=== PATIENT | male | born 1960 | race Caucasian/White ===

== ENCOUNTER → 2018-12-31 | Outpatient (REF) | payer MEDICARE ==
[~2018-12-31] MED LIST: ACET-683 PO; AMLO10TA5 PO; ARIP1TAB PO; ARIP1TAB6 PO; ASPI81TA85 PO; ATOR80TA59 PO; CARV25TA PO; CLOP75TA2 PO; COLC1TAB13 PO; CYAN500T3 PO; D-101000 PO; DULO1CAP4 PO; FLOM0.4C39 PO; FOLI1TAB11 PO; GABA600T4 PO; HYDR-3911 PO; HYDR10TAB PO; LISI40TA PO; MELA3TAB41 PO; METF-877 PO; NEUR600T PO; NITR0.4S14 SL; REME15TA PO; TRAZ1TAB10 PO; WARF-18 PO; WARF-23 PO
[2018-12-31 17:02] LABS: ALBUMIN 3.8 GM/DL (3.2-5.2); ALT/SGPT 44 U/L (12-78); BLOOD UREA NITROGEN 22 MG/DL (7-18); CALCIUM LEVEL 9.2 MG/DL (8.5-10.1); CARBON DIOXIDE LEVEL 25 MEQ/L (21-32); CHLORIDE LEVEL 103 MEQ/L (98-107); CREATININE FOR GFR 1.07 MG/DL (0.70-1.30); GLOMERULAR FILTRATION RATE > 60.0 (>56); GLUCOSE, FASTING 183 MG/DL (70-100); POTASSIUM SERUM 4.1 MEQ/L (3.5-5.1); SODIUM LEVEL 137 MEQ/L (136-145); TOTAL PROTEIN 7.1 GM/DL (6.4-8.2)
[2018-12-31 17:10] LABS: BASO # 0.1 10^3/uL (0.0-0.2); BASO % 0.5 % (0.0-1.0); EOS # 0.3 10^3/uL (0.0-0.50); EOS % 1.6 % (0.0-3.0); HEMATOCRIT 45.4 % (42.0-52.0); HEMOGLOBIN 15.5 g/dl (13.5-17.5); LYMPH # 3.4 10^3/uL (1.5-4.5); LYMPH % 19.3 % (24.0-44.0); MEAN CORPUSCULAR HEMOGLOBIN 29.4 pg (27.0-33.0); MEAN CORPUSCULAR HGB CONC 34.1 g/dl (32.0-36.5); MONO # 0.6 10^3/uL (0.0-0.8); MONO % 3.6 % (0.0-5.0); NEUTROPHILS # 12.4 10^3/uL (1.8-7.7); NEUTROPHILS % 71.2 % (36.0-66.0); PLATELET COUNT, AUTOMATED 335 10^3/uL (150-450); RED BLOOD COUNT 5.28 10^6/uL (4.30-6.10); WHITE BLOOD COUNT 17.4 10^3/uL (4.0-10.0)
[2019-01-03 00:06] LABS: Lyme Disease IgG/IgM Antibodie <0.91 ISR (0.00-0.90); Lyme Disease IgM Ab Quantitati <0.80 index (0.00-0.79)
== END ==
LOC: M SFHCLERA 11:05
PROVIDERS: ATTEND Physician Assistant
DX: R21 Rash and other nonspecific skin eruption (principal)
CPT/HCPCS: 80053; 85025; 86617; G0463

== ENCOUNTER 2019-01-09 20:24 | Observation (INO) | payer OTHER, MEDICARE ==
[~2019-01-09] VITALS: Ht 182.9 cm; Wt 132.4 kg
[2019-01-09] MEDS ORDERED: ONDANSETRON 4MG/2ML VIAL (J2405) IV ONE (21:00)
[2019-01-09 21:02] LABS: BASO # 0.1 10^3/uL (0.0-0.2); BASO % 0.3 % (0.0-1.0); EOS # 0.1 10^3/uL (0.0-0.50); EOS % 0.5 % (0.0-3.0); HEMATOCRIT 44.6 % (42.0-52.0); HEMOGLOBIN 15.2 g/dl (13.5-17.5); LYMPH # 3.3 10^3/uL (1.5-4.5); LYMPH % 22.4 % (24.0-44.0); MEAN CORPUSCULAR HGB CONC 34.1 g/dl (32.0-36.5); MONO # 0.8 10^3/uL (0.0-0.8); MONO % 5.7 % (0.0-5.0); NEUTROPHILS # 10.2 10^3/uL (1.8-7.7); NEUTROPHILS % 69.4 % (36.0-66.0); PLATELET COUNT, AUTOMATED 269 10^3/uL (150-450); RED BLOOD COUNT 5.07 10^6/uL (4.30-6.10); WHITE BLOOD COUNT 14.7 10^3/uL (4.0-10.0)
[2019-01-09] MEDS: MORPHINE 4 MG/ML 1ML VIAL/SYRINGE (J2270) IV PRN ×2 (21:07→22:16)
[2019-01-09 21:18] LABS: INR 1.97; PROTHROMBIN TIME 22.2 SECONDS (11.8-14.0)
[2019-01-09 21:22] LABS: BLOOD UREA NITROGEN 22 MG/DL (7-18); CALCIUM LEVEL 9.3 MG/DL (8.5-10.1); CARBON DIOXIDE LEVEL 27 MEQ/L (21-32); CHLORIDE LEVEL 103 MEQ/L (98-107); CK-MB VALUE MASS 1.2 NG/ML (<3.6); CPK CREATINE PHOSPHOKINASE 43 U/L (39-308); CREATININE FOR GFR 1.71 MG/DL (0.70-1.30); GLOMERULAR FILTRATION RATE 44.1 (>56); GLUCOSE, FASTING 335 MG/DL (70-100); MB/CK RELATIVE INDEX 2.79 (< OR =4); POTASSIUM SERUM 4.3 MEQ/L (3.5-5.1); SODIUM LEVEL 138 MEQ/L (136-145); TROPONIN I < 0.02 NG/ML (< 0.10)
[2019-01-09] MEDS ORDERED: CARV25TA PO (21:45)
[2019-01-09] MEDS ORDERED: REME15TA PO (21:45)
[2019-01-09] MEDS ORDERED: DULO1CAP4 PO (21:45)
[2019-01-09] MEDS ORDERED: HYDR10TAB PO (21:45)
[2019-01-09] MEDS ORDERED: NITR0.4S14 SL (21:45)
[2019-01-09] MEDS ORDERED: TRAZ1TAB10 PO (21:45)
[2019-01-09] MEDS ORDERED: METF-877 PO (21:45)
[2019-01-09] MEDS ORDERED: FLOM0.4C39 PO (21:45)
[2019-01-09] MEDS ORDERED: NEUR600T PO (21:45)
[2019-01-09] MEDS ORDERED: MELA3TAB41 PO (21:45)
[2019-01-09] MEDS ORDERED: WARF-18 PO (21:45)
[2019-01-09] MEDS ORDERED: LISI40TA PO (21:45)
[2019-01-09] MEDS ORDERED: ATOR80TA59 PO (21:45)
[2019-01-09] MEDS ORDERED: D-101000 PO (21:45)
[2019-01-09] MEDS ORDERED: FOLI1TAB11 PO (21:45)
[2019-01-09] MEDS ORDERED: CYAN500T3 PO (21:45)
[2019-01-09] MEDS ORDERED: ASPI81TA85 PO (21:45)
[2019-01-09] MEDS ORDERED: WARF-23 PO (21:45)
[2019-01-09] MEDS ORDERED: ARIP1TAB6 PO (21:45)
[2019-01-09] MEDS ORDERED: GI COCKTAIL 50ML BTL(HYOSCYAMINE/MAALOX/LIDOCAINE VISCOUS)(1:3:1) As Ordered ONE (22:28)
[2019-01-09] MEDS ORDERED: GI COCKTAIL 50ML BTL(HYOSCYAMINE/MAALOX/LIDOCAINE VISCOUS)(1:3:1) PO ONE (22:30)
[2019-01-09] MEDS ORDERED: HYDROMORPHONE HCL 0.5 MG/ 0.5 ML SYRINGE (J1170 PER 1) IV PRN (23:00)
--- NOTE | 2019-01-09 23:10 | REPVR ---
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 Coronal and sagittal reformatted images were created and reviewed. 3D rendering: MIP reconstructed images were created and reviewed. Radiation optimization: All CT scans at this facility use at least one of these dose optimization techniques: automated exposure control; mA and/or kV adjustment per patient size (includes targeted exams where dose is matched to clinical indication); or iterative reconstruction. COMPARISON: CR PORTABLE CHEST X-RAY 01/09/2019 8:32 PM FINDINGS: Evaluation of solid organs, vessels, mediastinum and edi is limited secondary to lack of IV contrast administration. Dual-lead left-sided implantable cardiac device is noted. Lungs: No consolidation. No masses. Pleural space: No sizable pneumothorax or pleural effusion. Heart: No cardiomegaly. No pericardial effusion. Aorta: No thoracic aortic aneurysm. Lymph nodes: No enlarged lymph nodes. Small left hilar node calcifications are likely from a prior granulomatous process. Bones/joints: No grossly displaced fractures or dislocations. Cervical spine fixation hardware partially imaged. Soft tissues: Unremarkable. IMPRESSION: No acute findings on this noncontrast study. Electronically signed by: Mani Ledesma On 01/09/2019 23:09:15 PM
[2019-01-09] MEDS: NITROGLYCERIN 0.4 MG SUBL TABLET SL PRN ×3 (23:25→23:37)
[2019-01-10] MEDS ORDERED: KETOROLAC 30 MG/ML VIAL (J1885) IV ONE
[2019-01-10 00:51] LABS: CK-MB VALUE MASS 1.3 NG/ML (<3.6); CPK CREATINE PHOSPHOKINASE 45 U/L (39-308); MB/CK RELATIVE INDEX 2.89 (< OR =4); TROPONIN I < 0.02 NG/ML (< 0.10)
[2019-01-10 01:45] LABS: C REACTIVE PROTEIN QUANTITATIV < 0.30 MG/DL (0.00-0.30)
[2019-01-10] MEDS ORDERED: COLCHICINE 0.6 MG TAB PO ONE (02:15)
[2019-01-10] MEDS ORDERED: methylPREDNISolone INJ 125 MG/2 ML VIAL (J2930) IV ONE (02:15)
[2019-01-10 02:24] LABS: ERYTHROCYTE SEDIMENTATION RATE 3 mm/hr (0-20)
--- NOTE | 2019-01-10 02:43 | HPEPDOC ---
[facility] Medical History & Physical Date of Admission Jan 10, 2019 Date of Service: Jan 10, 2019 Primary Care Physician: CHEYENNE OMALLEY MD Attending Physician: KELLY SUTHERLAND MD History and Physical Time of service 2:50 AM CHIEF COMPLAINT: Chest pain HISTORY OF PRESENT ILLNESS: Mr. Ibarra is a 58-year-old male who presents with complaints of 9 out of 10 in severity chest pain that began at 2:30 this morning that did not improve despite taking nitroglycerin. The pain radiated to his left arm and jaw. He has never had this kind of pain before and cannot identify any aggravating or alleviating factors. The pain improved to 8 out of 10 after taking toradol. He denies having fevers, denies having chills, denies having leg swelling, denies having shortness of breath at rest or with exertion. Per Dr. Villela the echo showed a mild pericardial effusion; while the pt was in the ED these findings were discussed with who recommended Solu-Medrol and colchicine. The patient has a history of PE. Today his INR is subtherapeutic and the creatinine was 1.7, therefore a CTA could be done to rule out recurrent PE. REVIEW OF SYSTEMS: Point review systems negative except as listed in HPI PAST MEDICAL/ SURGICAL HISTORY: 1. History of lower extremity DVT, and PE status post IVC filter placement & current Coumadin use 2. Chronic CAD status post stent placement in 2014 3. Non-insulin dependent diabetes mellitus. 4. Chronic hypertension. 5. History of CVA with residual memory impairment. 6. Pacemaker (The patient stated this was placed because his "heart was thick"). 7. Status post cervical spine and back surgery. 8. Multiple knee surgeries SOCIAL HISTORY: The Uses tobacco FAMILY HISTORY: CAD ALLERGIES: Please see below. HOME MEDICATIONS: Please see below. PHYSICAL EXAMINATION: VITAL SIGNS: See below GENERAL APPEARANCE: Well-nourished, well-developed, not in apparent distress HEENT: Normocephalic, atraumatic, mucous members moist and pink, lips acyanotic CARDIOVASCULAR: Regular rate and rhythm, no murmurs, rubs or gallops, radial pulses are intact, there is no lower extremity edema LUNGS: Clear to auscultation bilaterally on room air ABDOMEN: Soft and nontender on palpation MUSCULOSKELETAL: Range of motion intact in all 4 extremities INTEGUMENT: Slightly diaphoretic NEUROLOGICAL: Cranial nerves II-12 are grossly intact. Speech is not dysarthric PSYCHIATRIC: Alert and oriented to person, place and time, able to answer all questions appropriately and follow commands LABORATORY DATA: See below. IMAGING: CT of the chest was unremarkable MICROBIOLOGY: Please see below. ASSESSMENT: Mr. Ibarra is a 58-year-old male with a past medical history of chronic hypertension, chronic CAD, history of CVA, history of lower extremity DVT and PE, and pacemaker placement for unclear reasons. Will be admitted for management of chest pain, possibly secondary to pericarditis. PLAN: 1. Chest pain Possibly due to pericarditis WBC count is elevated, but ESR and CRP are within normal limits Per Dr. Villela the echo showed a small pericardial effusion Plan: PCU / Telemetry /follow-up serial troponins and EKGs, DAVID, RF / follow-up with director distribution, Dr. Santos tomorrow/ continue Solu-Medrol and colchicine / f/u on Echo report 2. ANTONIO Likely due to combination of metformin, lisinopril and mild dehydration due to the warm weather Baseline creatinine is 1.07, today it is 1.71. Plan: f/u UA f/u ulytes for FENa or FEUrea, renal US, IVF / avoid nephrotoxins 3. Hx of PE Plan: Increase dose of warfarin from 2.5 mg 4 x a week + 5 mg 3 x a week to... 3 mg 4 x a week + 5 mg 3 x a week / if the chest pain has not improved the day time team may consider ordering a VQ scan 4. Chronic hypertension. Plan resume hydralazine / hold lisinopril 5. Chronic CAD Plan: resume home meds/ f/u lipid panel 6. Diabetes Plan: f/u accuchecks & A1C / hypoglycemia protocol / sliding scale insulin / hold metformin. 7. Tobacco abuse. Plan tobacco cessation education/nicotine patch 8. Obesity BMI 38.3 w DM = qualifies for bariatric surgery Plan: can f/u w PCP for steam distribution supervisor consult, referal for sleep study & referral for Bariatric surgery / recommend cardiovascular exercise for 40 min 4-5 days a week DVT prophylaxis with warfarin Disposition pending clinical course Vital Signs Vital Signs Date Time Temp Pulse Resp B/P (MAP) Pulse Ox O2 Delivery O2 Flow Rate FiO2 01/10/19 01:52 69 20 95 Room Air 01/10/19 01:45 165/78 (107) 01/09/19 20:37 96.4 Laboratory Data CBC/BMP Laboratory Tests 01/09/19 20:45 Red Blood Count 5.07, Mean Corpuscular Volume 88.0, Mean Corpuscular Hemoglobin 30.0, Mean Corpuscular Hemoglobin Concent 34.1, Red Cell Distribution Width 12.5, Neutrophils (%) (Auto) 69.4 H, Lymphocytes (%) (Auto) 22.4 L, Monocytes (%) (Auto) 5.7 H, Eosinophils (%) (Auto) 0.5, Basophils (%) (Auto) 0.3, Neutrophils # (Auto) 10.2 H, Lymphocytes # (Auto) 3.3, Monocytes # (Auto) 0.8, Eosinophils # (Auto) 0.1, Basophils # (Auto) 0.1, Calcium Level 9.3, Total Creatine Kinase 43 Home Medications Scheduled Aripiprazole (Aripiprazole) 10 Mg Tablet, 5 MG PO DAILY Aspirin (Aspir 81) 81 Mg Tablet.dr, 81 MG PO DAILY Atorvastatin Calcium (Atorvastatin Calcium) 80 Mg Tablet, 40 MG PO DAILY Carvedilol (Carvedilol) 25 Mg Tablet, 25 MG PO DAILY Cholecalciferol (Vitamin D3) (Vitamin D3) 1,000 Unit Capsule, 1,000 UNITS PO DAILY Cyanocobalamin (Vitamin B-12) (Vitamin B-12) 500 Mcg Tablet, 500 MCG PO DAILY Duloxetine Hcl (Duloxetine HCl) 20 Mg Capsule.dr, 40 MG PO DAILY Folic Acid (Folic Acid) 1 Mg Tablet, 1 MG PO DAILY Gabapentin (Neurontin) 600 Mg Tablet, 1,200 MG PO QAM Gabapentin (Gabapentin) 600 Mg Tablet, 600 MG PO QPM Hydralazine HCl (Hydralazine HCl) 10 Mg Tablet, 20 MG PO QAM Hydralazine HCl (Hydralazine HCl) 10 Mg Tablet, 10 MG PO QPM Lisinopril (Lisinopril) 40 Mg Tablet, 40 MG PO DAILY USUALLY MORNING, BUT SOMETIMES TAKES IN EVENING Metformin HCl (Metformin HCl) 1,000 Mg Tablet, 1,000 MG PO BID Mirtazapine (Remeron) 15 Mg Tablet, 7.5 MG PO QHS Tamsulosin HCl (Flomax) 0.4 Mg Capsule, 0.4 MG PO DAILY Warfarin Sodium (Warfarin Sodium) 5 Mg Tablet, 5 MG PO 3XW FRIDAY, FRIDAY, FRIDAY Warfarin Sodium (Warfarin Sodium) 5 Mg Tablet, 2.5 MG PO 4XWK FRIDAY, FRIDAY, FRIDAY, FRIDAY Scheduled PRN Melatonin (Melatonin) 3 Mg Tablet, 6 MG PO QHS PRN for SLEEP Nitroglycerin (Nitroglycerin) 0.4 Mg Tab.subl, 0.4 MG SL Q5MP PRN for CHEST PAIN 1st sign of attack; may repeat every 5 mins; if pain persists after 3 in 15 min, medical attention is recommended Trazodone HCl (Trazodone HCl) 50 Mg Tablet, 100 MG PO QHS PRN for SLEEP MAY TAKE UP TO 150 MG FOR DIFFICULTY SLEEPING Allergies Coded Allergies: nifedipine (Verified Allergy, Mild, angina, 01/09/19) prochlorperazine (Verified Allergy, Mild, vomiting, 01/09/19) cyclobenzaprine (Verified Adverse Reaction, Mild, anxiety, 01/09/19) A-FIB/CHADSVASC A-FIB History Current/History of A-Fib/PAF?: No Current PO Anticoag Therapy: No KELLY SUTHERLAND MD Jan 10, 2019 02:43
[2019-01-10] MEDS ORDERED: DEXTROSE 50% 50 ML SYRINGE IV PRN (02:45)
[2019-01-10] MEDS ORDERED: GABA600T4 PO (02:54)
[2019-01-10] MEDS ORDERED: WARF-23 PO (02:54)
[2019-01-10] MEDS ORDERED: HYDR10TAB PO (02:54)
[2019-01-10] MEDS ORDERED: ARIP1TAB PO (02:54)
[2019-01-10] MEDS: NS 1,000 ML IV SCH ×2 (03:21→20:51)
[2019-01-10] MEDS ORDERED: traZODone 50 MG TAB PO PRN (03:30)
[2019-01-10] MEDS ORDERED: PILL CUTTER 1 EACH XX ONE (03:43)
[2019-01-10] MEDS: WARFARIN SOD 5 MG TAB PO SCH (03:44)
[2019-01-10] MEDS: MIRTAZAPINE 15 MG TAB PO SCH ×2 (03:45→20:51)
[2019-01-10] MEDS ORDERED: PILL CUTTER 1 EACH XX PRN (04:00)
--- NOTE | 2019-01-10 06:32 | ECGEPIP ---
[facility] - ED Test Date: 2019-01-09 Pat Name: CHAPO VALDIVIA Department: Room: - Gender: Male Balancer Scale: : 1960 Requested By: KARSTEN Swain Order Number: [id number] Reading MD: Damaris Arreguin Measurements Intervals [place] Rate: 120 P: 41 WA: 152 QRS: -6 QRSD: 97 T: 114 QT: 289 QTc: 409 Interpretive Statements SINUS TACHYCARDIA INFERIOR MYOCARDIAL INFARCTION, OF INDETERMINATE AGE Anterior infarct age indeterminate MODERATE T-WAVE ABNORMALITY, CONSIDER LATERAL ISCHEMIA NO PRIOR ECG FOR COMPARISON CLINICAL CORRELATION ADVISED Electronically Signed on 01-10-2019 6:32:11 EDT by Damaris Arreguin
[2019-01-10 07:45] LABS: CHOLESTEROL LEVEL 132 MG/DL (<200); CHOLESTEROL RISK RATIO 2.933 (<5); HDL CHOLESTEROL 45 MG/DL (>40); HEMOGLOBIN A1c 8.3 %; LDL CHOLESTEROL 62 MG/DL (<100); NON-HDL-C 87 MG/DL; RHEUMATOID FACTOR QUANT < 10.0 IU/ML (<15.0); TRIGLYCERIDES LEVEL 124 MG/DL (<150); TROPONIN I < 0.02 NG/ML (< 0.10)
[2019-01-10 08:01] LABS: BASO # 0.1 10^3/uL (0.0-0.2); BASO % 0.5 % (0.0-1.0); EOS % 0.4 % (0.0-3.0); HEMATOCRIT 43.1 % (42.0-52.0); LYMPH # 1.6 10^3/uL (1.5-4.5); LYMPH % 15.7 % (24.0-44.0); MEAN CORPUSCULAR HEMOGLOBIN 30.6 pg (27.0-33.0); MEAN CORPUSCULAR HGB CONC 34.8 g/dl (32.0-36.5); MONO # 0.2 10^3/uL (0.0-0.8); MONO % 1.9 % (0.0-5.0); NEUTROPHILS # 8.2 10^3/uL (1.8-7.7); NEUTROPHILS % 79.8 % (36.0-66.0); PLATELET COUNT, AUTOMATED 196 10^3/uL (150-450); WHITE BLOOD COUNT 10.3 10^3/uL (4.0-10.0)
[2019-01-10 08:04] LABS: BLOOD UREA NITROGEN 27 MG/DL (7-18); CALCIUM LEVEL 9.2 MG/DL (8.5-10.1); CARBON DIOXIDE LEVEL 24 MEQ/L (21-32); CHLORIDE LEVEL 105 MEQ/L (98-107); CREATININE FOR GFR 1.23 MG/DL (0.70-1.30); GLOMERULAR FILTRATION RATE > 60.0 (>56); GLUCOSE, FASTING 266 MG/DL (70-100); POTASSIUM SERUM 4.7 MEQ/L (3.5-5.1); SODIUM LEVEL 137 MEQ/L (136-145)
[2019-01-10] MEDS: HumaLOG INSULIN (NovoLOG) PER UNIT SC SCH ×4 (08:07→20:49)
--- NOTE | 2019-01-10 08:45 | REPVR ---
EXAM: US Retroperitoneal Limited, Kidneys EXAM DATE/TIME: 01/10/2019 3:21 AM CLINICAL HISTORY: 58 years old, male; Abnormal findings; Abnormal lab test; Abnormal kidney function lab tests; Additional info: Noel TECHNIQUE: Imaging protocol: Real-time ultrasound of the retroperitoneum with image documentation. Examination was focused on the kidneys. COMPARISON: No relevant prior studies available. FINDINGS: Right kidney: The right kidney measures 11.7 x 5.8 x 5.8 cm. The right renal cortical parenchymal echogenicity is within normal limits. There is no right renal mass, stone, cyst or hydronephrosis. There is overall increased renal sinus fat. Left kidney: The left kidney measures 12.5 x 4.7 x 6.9 cm. The left renal cortical parenchymal echogenicity is within normal limits. There is no left renal mass, stone, cyst or hydronephrosis. There is overall increased renal sinus fat. Bladder: Right and left ureteral jets are seen. IMPRESSION: Normal ultrasound of the kidneys. Electronically signed by: Abdi Parikh On 01/10/2019 08:44:52 AM
[2019-01-10] MEDS ORDERED: LEVEMIR (INSULIN DETEMIR) 1 UNITS/0.01ML SC SCH (09:00)
[2019-01-10] MEDS ORDERED: CARVedilol 12.5 MG TAB PO SCH (09:00)
[2019-01-10] MEDS ORDERED: ASPIRIN 81 MG ENTERIC TAB PO SCH (09:00)
[2019-01-10] MEDS ORDERED: **hydrALAZINE** 10 MG TAB PO SCH ×2 (09:00→18:00)
--- NOTE | 2019-01-10 09:15 | ECHO ---
DATE OF PROCEDURE: 01/10/2019 DATE OF : 1960 AGE: 58 REFERRING PROVIDER: Dr. Mehul Villela REASON FOR STUDY: Heart murmur. 2-D MEASUREMENTS: IVS: 1.6 cm LV: 4.2 cm LVPW: 1.7 cm LA: 3.6 cm Aorta: 3.2 cm IVC: 1.3 cm DOPPLER MEASUREMENTS: Peak velocity across the aortic valve: 2.3 m/s Peak velocity across the LVOT: 1.9 m/s Peak gradient across the aortic valve: 20 mmHg Mean gradient across the aortic valve: 11 mmHg Mitral E: 0.69 Mitral A: 1.1 Ratio: 0.6 2-D COMMENTS: 1. Moderately increased left ventricular wall thickness with normal left ventricular size and normal global left ventricular systolic function. The estimated ventricular systolic ejection fraction is 65-70%. 2. Subjectively, the left atrium appeared to be mildly enlarged in limited views. Normal right atrium and right ventricle. 3. The atrial septum appeared to be normal without evidence of defect or shunt. 4. Normal aortic root. 5. Trace to small pericardial effusion was noted, no evidence of cardiac tamponade. 6. Mildly calcified aortic valve with minimal leaflet excursion. Mildly calcified mitral annulus with normal anterior mitral valve leaflet motion. Normal tricuspid valve and pulmonic valve. The proximal pulmonary artery branches were not well visualized. 7. The inferior vena cava was normal in size, central venous pressure is most likely normal. DOPPLER: Detects trace mitral regurgitation. Abnormal relaxation pattern was noted across the mitral valve leaflets as well as the mitral valve annulus consistent with features of grade 1 left ventricular diastolic dysfunction. IMPRESSION: 1. Normal global left ventricular systolic function with moderate concentric left ventricular hypertrophy. There are some features of grade 1 left ventricular diastolic dysfunction manifested by abnormal relaxation. 2. Aortic valve sclerosis with minimal aortic stenosis, but no aortic radiation. There was also a gradient of about 20 mmHg noted across the LVOT that may be related to some underlying obstructive cardiomyopathy. 3. Mitral annulus calcification with trace mitral regurgitation. Subjectively, the left atrium appeared to be mildly enlarged in limited views. 4. Trace to small pericardial effusion, no evidence of cardiac tamponade. Not mentioned above, pacemaker wire artifact noted in the right heart chambers. MTDD
[2019-01-10] MEDS: GABAPENTIN 300 MG CAP PO SCH ×2 (09:56→18:18)
[2019-01-10] MEDS: COLCHICINE 0.6 MG TAB PO SCH ×2 (09:56→20:50)
[2019-01-10] MEDS: DULoxetine 20 MG CAP (CYMBALTA) PO SCH (09:57)
[2019-01-10] MEDS: TAMSULOSIN 0.4 MG CAP PO SCH (09:57)
[2019-01-10] MEDS: FOLIC ACID 1 MG TAB PO SCH (09:58)
[2019-01-10] MEDS: ARIPiprazole 10 MG TAB PO SCH (09:58)
[2019-01-10] MEDS: ATORVASTATIN 20 MG TAB PO SCH (09:58)
[2019-01-10] MEDS: NICOTINE 14 MG/24 HR TRANSDERMAL TD SCH (10:00)
[2019-01-10] MEDS: amLODIPine 10 MG TAB PO SCH (10:25)
[2019-01-10] MEDS: **hydrALAZINE HCL** 25 MG TAB PO SCH ×3 (10:29→20:50)
--- NOTE | 2019-01-10 11:33 | REP ---
AP PORTABLE CHEST: 01/09/2019. Clinical history: Chest pain. Findings: There are no prior studies. Dual lead AICD pacer with very entered over the left mid lower chest and leads in the right atrium and right ventricle. Lungs somewhat hypoinflated. This magnifies heart size. There is no vascular redistribution, edema, infiltrate or effusion. The aorta is without acute finding. Airway intact. No widening the mediastinum. Minor degenerative changes the left shoulder and spine. Impression: 1. Dual lead AICD pacer of the left chest. No acute cardiopulmonary change. Electronically Signed by Justo Torres MD 01/10/2019 08:28 P
[2019-01-10] MEDS ORDERED: IBUPROFEN 800 MG TAB PO ONE (16:00)
[2019-01-10] MEDS: CLOPIDOGREL 75 MG TAB PO SCH (16:57)
[2019-01-10] MEDS ORDERED: WARFARIN SOD 3 MG TAB PO SCH (17:00)
[2019-01-10 17:59] LABS: NT-PRO BNP 110 PG/ML (<125); TROPONIN I < 0.02 NG/ML (< 0.10)
[2019-01-10] MEDS: CARVedilol 12.5 MG TAB PO SCH (20:51)
[2019-01-11] MEDS ORDERED: methylPREDNISolone INJ 125 MG/2 ML VIAL (J2930) IV SCH (03:00)
[2019-01-11 07:13] LABS: BASO % 0.2 % (0.0-1.0); EOS % 0.1 % (0.0-3.0); HEMATOCRIT 43.7 % (42.0-52.0); HEMOGLOBIN 15.2 g/dl (13.5-17.5); LYMPH # 1.9 10^3/uL (1.5-4.5); LYMPH % 11.2 % (24.0-44.0); MEAN CORPUSCULAR HEMOGLOBIN 30.4 pg (27.0-33.0); MEAN CORPUSCULAR HGB CONC 34.8 g/dl (32.0-36.5); MEAN CORPUSCULAR VOLUME 87.4 fl (80.0-96.0); MONO # 0.4 10^3/uL (0.0-0.8); MONO % 2.1 % (0.0-5.0); NEUTROPHILS # 14.7 10^3/uL (1.8-7.7); NEUTROPHILS % 84.7 % (36.0-66.0); PLATELET COUNT, AUTOMATED 205 10^3/uL (150-450); WHITE BLOOD COUNT 17.3 10^3/uL (4.0-10.0)
[2019-01-11 07:34] LABS: INR 2.26; PROTHROMBIN TIME 24.8 SECONDS (11.8-14.0)
[2019-01-11 07:47] LABS: BLOOD UREA NITROGEN 26 MG/DL (7-18); CALCIUM LEVEL 9.4 MG/DL (8.5-10.1); CARBON DIOXIDE LEVEL 25 MEQ/L (21-32); CHLORIDE LEVEL 104 MEQ/L (98-107); CREATININE FOR GFR 1.18 MG/DL (0.70-1.30); GLOMERULAR FILTRATION RATE > 60.0 (>56); GLUCOSE, FASTING 280 MG/DL (70-100); MAGNESIUM LEVEL 2.3 MG/DL (1.8-2.4); POTASSIUM SERUM 4.2 MEQ/L (3.5-5.1); SODIUM LEVEL 136 MEQ/L (136-145); TROPONIN I < 0.02 NG/ML (< 0.10)
--- NOTE | 2019-01-11 08:06 | CR ---
DATE OF CONSULTATION: 01/10/2019 PHYSICIAN PROVIDER: Dr. Abby Powell REASON FOR CONSULTATION: Chest pain, possible pericarditis. HISTORY OF PRESENT ILLNESS: 58-year-old male with a history of coronary artery disease, syncope, hypertension, hyperlipidemia, diabetes mellitus, AND smoking, as well as deep venous thrombosis (DVT) and pulmonary embolism and possible paroxysmal atrial fibrillation that could not be confirmed started having chest pain for about five days and went to an urgent care, was treated and then sent home. Yesterday in the morning he developed more severe chest pain on a scale of 0 to 10 it was a 9. He decided to come to the emergency room for further evaluation. Serum troponin on arrival was negative. He had an echocardiogram that revealed normal global left ventricular ejection fraction (LVEF), trace to small pericardial effusion and because his serum troponin was negative in the setting of severe chest pain, it was felt to be related to pericarditis. A chest CT with contrast could not be done because his serum creatinine was elevated upon arrival at the emergency room (ER). He was started on Solu-Medrol and colchicine. Cardiology consult was called. When I saw Mr. Jagjit Ibarra in the ER he was in supine in bed in no acute distress at rest. He stated that the chest pain had improved onto a 7 but has been about to an 8. There is no associated shortness of breath, or pleuritic component of his chest pain and he thinks it radiates to the left upper extremity. It does not change with position. He has a friend in the room with him and the friend states that when he was working, he was having shortness of breath with activities. He denies any palpitations and there is no pedal edema or orthopnea. There is no recent syncopal episode. He denies any bleeding. He has a long, extensive history with DVT years ago involving the left lower extremity he thinks, as well as pulmonary embolism in 2018. In the past, he was on Eliquis but lately has been on Coumadin. In 2014, he was in [place] a while visiting his daughter and was passing out, he was seen in the hospital and an automatic implantable cardio converter-defibrillator (AICD) was implanted but he is not sure about the reason it was done. He also has a history of cerebral vascular accident (CVA) and left-sided weakness. In the month of September of 2014, he was having chest pain at [facility] and was transferred to [facility] in [place] and ended up having a percutaneous transluminal coronary angioplasty (PTCA) with drug-eluting stents to the proximal to mid-left anterior descending (LAD). He was discharged home on aspirin as well as Plavix. He has been doing well until about 4-5 days ago when he starting again having chest pain. He thinks this chest pain is similar to the chest pain he had in the month of September in 2018 when he was transferred to [facility]. He also has history of impaired memory from prior concussions. 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 He has degenerative joint disease and had surgery done in his knees as well as his spine. He denies any prior history of significant valvular heart disease, kidney disease he is aware of. He does have a history of anxiety/depression. In the past, he was on an KARLI inhibitor. He admitted that he is a very poor historian because he cannot remember exactly when things happen due to prior concussions. The last time he had a check of the AICD, according to the discharge summary from [facility] was during that hospitalization and since then he has not done that. He has not also been seeing any mining engineering technologist and [facility] Upon discharge from [facility], he has manifested the desire to see the [facility] for [facility] primary and his mining engineering technologist. or his primary and his mining engineering technologist. CURRENT MEDICATIONS: - Methylprednisolone 125 mg IV daily - Humalog insulin - gabapentin 600 mg by mouth daily at 06:00 p.m - Coumadin as directed - Abilify 5 mg by mouth daily - aspirin 81 mg by mouth daily - atorvastatin 40 mg by mouth daily - carvedilol 25 mg by mouth daily - duloxetine 40 mg by mouth daily - folic acid 1 mg by mouth daily - gabapentin 1200 mg by mouth in the morning - tamsulosin 0.4 mg by mouth daily - colchicine 0.6 mg by mouth twice a day - nicotine patch - amlodipine 10 mg by mouth daily - hydralazine 25 mg by mouth three times a day - Levemir insulin 20 units subcutaneous daily - trazodone 100 mg before meals taken as needed - D50 as needed for hypoglycemia - normal saline at 60 mL an hour - nitroglycerin sublingual as needed for chest pain - hydromorphone 0.5 mg every 30 minutes and as needed for moderate pain - Mirtazapine 7.5 mg by mouth at hour of sleep FAMILY HISTORY: Positive for diabetes mellitus, grandparents on his father's side. He is also positive for coronary artery disease/heart disease both father and a brother. SOCIAL HISTORY: The patient lives in town with friends. He is a smoker. ALLERGIES: There is report of allergies to CYCLOBENZAPRINE, NIFEDIPINE, and PROCHLORPERAZINE. PHYSICAL EXAMINATION: GENERAL: The patient is alert and oriented, in no acute distress at rest. MOST RECENT VITAL SIGNS: Blood pressure of 141/73 with a pulse of 95, respiration 18-20 and his oxygen saturation is 93-96% on room air. His temperature last evening was 96.4 degrees Fahrenheit. HEAD: Atraumatic. Fundus examination was not done. NECK: Neck is supple and no jugular venous distention (JVD) appreciated. LUNGS: Clear bilaterally without any wheezing or crackles. HEART: Examination revealed normal S1, S2 without gallops, but mildly tachycardiac. The point of maximal impulse (PMI) is not displaced. There is no rub. There is a systolic murmur grade 2/6 over the precordium laterally at the base of the base of the /aortic valve area. ABDOMEN: Abdomen is soft and nontender, bowel sounds are active. EXTREMITIES: Reveal no pedal edema. Peripheral pulses, tibialis were +2 and equal. NEUROLOGIC EXAMINATION: Negative for focal deficit. LABORATORY DATA: BMP done today revealed a sodium of 137, potassium 4.7, chloride 105, CO2 24, BUN 27, creatinine 1.23, GFR more than 60, fasting glucose 266 and calcium 9.2. Serum troponin has been less than 0.02. Lipid profile revealed a total cholesterol of 132, LDL cholesterol of 62, HDL 45 and triglycerides 124 with a total cholesterol/HDL ratio 2.96. BUN and creatinine yesterday on admission was 22 and 1.7 respectively. CBC done today revealed WBC of 10.3, hemoglobin 15.0, hematocrit 43.1 and platelet 196,000. On admission, a WBC was 14.7. PT yesterday was 22.2 with an INR of 1.97. Hemoglobin A1c was 8.3. CR-protein is less than 0.30. Echocardiogram yesterday revealed normal global left ventricular systolic function estimated at 65-70% and features of grade 1 left ventricular diastolic dysfunction, aortic valve sclerosis with minimal aortic stenosis. There is a gradient of 20 mmHg across the left ventricular outflow tract (LVOT). Trace mitral regurgitation was detected with a mildly enlarged left atrium, trace to small pericardial effusion but no evidence of cardiac tamponade. Pacemaker wire artifacts also noted in the right heart chambers. EKG revealed sinus tachycardia with intraventricular conduction delay (IVCD) and nonspecific ST-T abnormalities. Chest x-ray on 01/09/2019 revealed no acute disease process. Pacemaker/AICD wire artifacts noted. Chest CT without contrast on 01/09/2019 revealed no acute findings. Renal Ultrasound done today, 01/10/2019 revealed a normal study. IMPRESSION: 1. Chest pain in this 58-year-old male with history of coronary artery disease and recent percutaneous transluminal coronary angioplasty (PTCA)/a drug-eluting stents proximal to mid left anterior descending (LAD). Serum troponin is negative. He has been compliant with his medications. He had echocardiogram done yesterday that revealed normal left ventricular ejection fraction (LVEF) but new trace to small pericardial effusion was noted, not seen an echocardiogram done in the month of September 2018. For this reason, it was thought that his chest could be related to pericarditis but his serum C-reactive protein is normal, complicating the diagnosis. He was started on colchicine and Solu-Medrol. I doubt he is having an acute coronary syndrome. I am going to give him a trial of Motrin and he will be monitored. Also, doubt he is having a pulmonary embolism, he has been on Coumadin and his INR is 1.9. He also has been on aspirin. He will be admitted for further management. We shall try to continue monitoring his serum troponin. 2. Coronary artery disease and recent PTCA/drug-eluting stent to the proximal to mid-LAD in the month of September 2018. His medications were reviewed and he will continue the same. I have increased his beta-magdy. It seems that he has a gradient across the LVOT and if he continues to be tachycardic, I will start him on a calcium channel magdy at a small dose. He is on aspirin and it will be switched to Clopidogrel. He is on Warfarin. 3. Hypertension. He will be monitored, I have increased his carvedilol. He is also on hydralazine. He is also on amlodipine. 4. Hyperlipidemia, under control on atorvastatin. 5. History of diabetes mellitus and this is being addressed. 6. History of deep venous thrombosis (DVT) and pulmonary embolism. Questionable history of paroxysmal atrial fibrillation. On Coumadin and this is being addressed. 7. History of automatic implantable cardio converter-defibrillator (AICD)/pacemaker implant. At the time the patient has stated he was passing out and he was told that he has a big heart and was living in [place], [place]. 8. Abnormal BUN and creatinine, improving. 9. History of benign prostatic hypertrophy (BPH). 10. History of memory loss due to prior concussions. 11. History of arthritis with degenerative joint disease and disc disease. 12. History of anxiety/depression. Thank you for allowing to participate in the care of Mr. Jagjit Ibarra for his underlying cardiac condition. This is a very interesting case and I will continue to monitor him along with you. Please do not hesitate to call if any questions.
[2019-01-11] MEDS: HumaLOG INSULIN (NovoLOG) PER UNIT SC SCH ×4 (08:27→20:27)
[2019-01-11] MEDS: LEVEMIR (INSULIN DETEMIR) 1 UNITS/0.01ML SC SCH (08:27)
[2019-01-11] MEDS: **hydrALAZINE HCL** 25 MG TAB PO SCH ×3 (08:28→20:28)
[2019-01-11] MEDS: COLCHICINE 0.6 MG TAB PO SCH ×2 (08:28→20:28)
[2019-01-11] MEDS: DULoxetine 20 MG CAP (CYMBALTA) PO SCH (08:28)
[2019-01-11] MEDS: FOLIC ACID 1 MG TAB PO SCH (08:28)
[2019-01-11] MEDS: GABAPENTIN 300 MG CAP PO SCH ×2 (08:28→16:51)
[2019-01-11] MEDS: CLOPIDOGREL 75 MG TAB PO SCH (08:28)
[2019-01-11] MEDS: ATORVASTATIN 20 MG TAB PO SCH (08:29)
[2019-01-11] MEDS: TAMSULOSIN 0.4 MG CAP PO SCH (08:29)
[2019-01-11] MEDS: amLODIPine 10 MG TAB PO SCH (08:29)
[2019-01-11] MEDS: CARVedilol 12.5 MG TAB PO SCH ×2 (08:30→20:27)
[2019-01-11] MEDS: ARIPiprazole 10 MG TAB PO SCH (08:30)
[2019-01-11] MEDS: NICOTINE 14 MG/24 HR TRANSDERMAL TD SCH (08:34)
--- NOTE | 2019-01-11 09:01 | IPN ---
DATE: 01/11/2019 Mr. Ibarra tells me that he is still having chest discomfort. It is a little better than yesterday but he still rates it 7/10 intensity. It is localized to one small area just left from the sternum without any radiation. It is not aggravated by taking deep breath, coughing or sneezing or any different position, and there are no associated symptoms. Vital signs: Blood pressure 124/75, heart rate has been in 60s. He is afebrile. Saturation is 75% on room air. His weight has not been documented today but yesterday it was stated as 128 kg. He is alert, oriented and appropriate. Does not appear to be in any distress. There is a fine tremor of his hands that is not intentional. His jugular venous pulse (JVP) is not elevated. I do not appreciate carotid bruit. Heart reveals regular rhythm without gallop, rub or murmur. Lungs are clear with good air movement. Abdomen is soft. Extremities are free of edema. Neurologically, other than fine tremor, he is intact. LABORATORY: CBC reveals WBC count 17,000, hemoglobin 15, hematocrit 43, platelet count 205,000. Basic metabolic panel is normal but for glucose 280. His troponin this morning again is negative. INR is 2.3 ASSESSMENT AND PLAN: Mr. Ibarra is a 58-year-old man who recently moved to [facility] from [place]. He does have established coronary artery disease with history of intervention in September of 2018, in , in [place]. He also has a pacemaker implanted for history of recurrent syncopal events. He presented with steady pressure-like discomfort localized to small area left of sternum that he rated initially as 10/10 intensity. The evaluation so far has been unremarkable. He does have nonspecific repolarization abnormalities on initial ECG, and I am going to obtain a followup. He does have numerous troponins that have been all negative. An echocardiogram revealed trace amount of pericardial effusion. As far as the etiology of the pain is concerned, I am not quite sure what it is. I certainly do not think it is pericarditis as the history is not suggestive of pleuritic nature of his pain. He also does not have acute coronary syndrome as evidenced by multiple negative cardiac enzymes. I am going to request records from [facility] in [place] and I am going to obtain a followup electrocardiogram. I suggest to observe the patient one more day in the hospital. I do hope that his cardiac enzymes will remain negative and the ECG will not show any obvious evolution, at which point, I believe that he will be able to be discharged home hopefully tomorrow. He is principally patient of [place] but has not been able to see a fast food server, even though he apparently has been requesting one for long time. So, I told him that if he needs that we will be happy to see him in the office locally until he establishes with cardiology in [place]. Because I am not believing that he has pericarditis I am going to discontinue Solu-Medrol, which certainly does not help his diabetes.
[2019-01-11] MEDS: ACETAMINOPHEN 500 MG TAB PO PRN (10:27)
[2019-01-11] MEDS ORDERED: HumaLOG INSULIN (NovoLOG) PER UNIT SC ONE (11:45)
--- NOTE | 2019-01-11 13:23 | IPNPDOC ---
Subjective Date Seen The patient was seen on 01/11/19. Subjective Chief Complaint/HPI Still complains of chest pain in the left and right second and third costochondral junction areas. No fever or chills, no nausea or vomiting or d iarrhea, no acid reflux, no cough or phlegm Objective Physical Examination General Exam: Positive: Alert, Cooperative, No Acute Distress Eye Exam: Positive: PERRLA, Conjunctiva & lids normal, EOMI; Negative: Sclera icteric ENT Exam: Positive: Atraumatic, Mucous membr. moist/pink, Pharynx Normal Neck Exam: Positive: Supple; Negative: JVD, thyromegaly Chest Exam: Positive: Clear to auscultation, Normal air movement Heart Exam: Positive: Rate Normal, Regular Rhythm, Normal S1, Normal S2, Murmurs (systolic murmur); Negative: Rubs Telemetry: Positive: No significant arrhythmia Abdomen Exam: Positive: Normal bowel sounds, Soft; Negative: Tenderness, Hepatospenomegaly Extremity Exam: Positive: Normal pulses; Negative: Clubbing, Cyanosis, Edema Skin Exam: Positive: Nl turgor and temperature; Negative: Rash, Breakdown Assessment /Plan Assessment 58-year-old male with PMH of lower extremity DVT, and PE status post IVC filter placement & current Coumadin use, CAD status post stent placement in 2014, 201 9, Non-insulin dependent diabetes mellitus, Hypertension, 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 ACS was ruled out, PE was ruled out, Aortic dissection was ruled out. Echo showed new pericardial effusion since September 2018 small in size. He had an episode of hives which lasted 2 days about 2 weeks ago. It was felt that he had Pericarditis vs musculoskeletal pain. But in view of his extensive cardiac history it was decided to keep him under observation to fully evaluate his chest pain. Chest pain seems like noncardiac . Definity not having a ACS at present. possibly costochondritis however pericarditis cannot be ruled out absolutely so will continue colchicine but will dc steroids. tylenol prn for pain Coronary artery disease and recent PTCA/drug-eluting stent to the proximal to mid-LAD in the month of September 2018. on plavix and betablocker. Hypertension. controlled hydralazine, coreg, amlodipine Uncontrolled Diabetes type 2 A1c is 8.2 probably this high becaue of steroids. sugars above 500 today carb consistent diet Levemir and lispro FA ac and HS. Hyperlipidemia atorvastatin. History of deep venous thrombosis (DVT) and pulmonary embolism. on coumadin Questionable history of paroxysmal atrial fibrillation. On Coumadin History of automatic implantable cardio converter-defibrillator (AICD)/pacemaker implant. The patient has stated that he was passing out and he was told that he has a big heart and was living in [place], [place]. Echo here shows LVOT obstruction Benign prostatic hypertrophy (BPH). History of memory loss due to prior concussions /cva History of arthritis with degenerative joint disease and disc disease. History of anxiety/depression. continue current medications. Obesity Plan/VTE VTE Prophylaxis Ordered?: Yes VS, I&O, 24H, Fishbone Vital Signs/I&O Vital Signs Date Time Temp Pulse Resp B/P (MAP) Pulse Ox O2 Delivery O2 Flow Rate FiO2 01/11/19 10:52 89 22 141/75 (97) 97 Room Air 01/11/19 04:32 97.1 I&O- Last 24 Hours up to 6 AM 01/11/19 06:00 Output Total 1100 ml Balance -1100 ml Laboratory Data 24H LABS Laboratory Tests 2 01/10/19 12:49: Bedside Glucose (Misc Panel) 289H 01/10/19 17:04: Troponin I < 0.02, QI-Ent-K-Type Natriuretic Peptide 110 01/10/19 17:51: Bedside Glucose (Misc Panel) 262H 01/10/19 20:19: Bedside Glucose (Misc Panel) 394H 01/11/19 06:39: Immature Granulocyte % (Auto) 1.7, White Blood Count 17.3H, Red Blood Count 5.00, Hemoglobin 15.2, Hematocrit 43.7, Mean Corpuscular Volume 87.4, Mean Corpuscular Hemoglobin 30.4, Mean Corpuscular Hemoglobin Concent 34.8, Red Cell Distribution Width 12.6, Platelet Count 205, Neutrophils (%) (Auto) 84.7H, Lymphocytes (%) (Auto) 11.2L, Monocytes (%) (Auto) 2.1, Eosinophils (%) (Auto) 0.1, Basophils (%) (Auto) 0.2, Neutrophils # (Auto) 14.7H, Lymphocytes # (Auto) 1.9, Monocytes # (Auto) 0.4, Eosinophils # (Auto) 0.0, Basophils # (Auto) 0.0, Nucleated Red Blood Cells % (auto) 0.0, Prothrombin Time 24.8H, Prothromb Time International Ratio 2.26, Anion Gap 7L, Glomerular Filtration Rate > 60.0, Blood Urea Nitrogen 26H, Creatinine 1.18, Sodium Level 136, Potassium Level 4.2, Chloride Level 104, Carbon Dioxide Level 25, Calcium Level 9.4, Magnesium Level 2.3, Troponin I < 0.02 01/11/19 11:33: Bedside Glucose (Misc Panel) 518*H CBC/BMP Laboratory Tests 01/11/19 06:39 Red Blood Count 5.00, Mean Corpuscular Volume 87.4, Mean Corpuscular Hemoglobin 30.4, Mean Corpuscular Hemoglobin Concent 34.8, Red Cell Distribution Width 12.6, Neutrophils (%) (Auto) 84.7 H, Lymphocytes (%) (Auto) 11.2 L, Monocytes (%) (Auto) 2.1, Eosinophils (%) (Auto) 0.1, Basophils (%) (Auto) 0.2, Neutrophils # (Auto) 14.7 H, Lymphocytes # (Auto) 1.9, Monocytes # (Auto) 0.4, Eosinophils # (Auto) 0.0, Basophils # (Auto) 0.0, Calcium Level 9.4 CARITO LAURENT MD Jan 11, 2019 11:59
[2019-01-11 15:15] VITALS: BP 147/71
[2019-01-11] MEDS: WARFARIN SOD 5 MG TAB PO SCH (16:51)
[2019-01-11] MEDS ORDERED: SLF 3 ML SYR IV PRN (17:00)
[2019-01-11 17:13] VITALS: BP 154/86
--- NOTE | 2019-01-11 18:36 | ECGEPIP ---
[facility] Test Date: 2019-01-11 Pat Name: CHAPO VALDIVIA Department: Room: [place] [address] Gender: Male Form Raiser: purnima : 1960 Requested By: Gian Marroquin Order Number: [id number] Reading MD: Gian Marroquin Measurements Intervals [place] Rate: 74 P: 38 WV: 144 QRS: -14 QRSD: 101 T: 127 QT: 391 QTc: 434 Interpretive Statements SINUS RHYTHM SEPTAL MYOCARDIAL INFARCTION, OF INDETERMINATE AGE INFERIOR MYOCARDIAL INFARCTION, PROBABLY OLD MODERATE T-WAVE ABNORMALITY, NONSPECIFIC, CONSIDER LVH SIMILAR TO 01/09/19 Electronically Signed on 01-11-2019 18:36:17 EDT by Gian Marroquin
[2019-01-11 20:00] VITALS: BP 154/68
[2019-01-11] MEDS: DICLOFENAC EPOLAMINE 1.3 % PATCH TOP SCH (20:26)
[2019-01-11] MEDS: MIRTAZAPINE 15 MG TAB PO SCH (20:28)
[2019-01-11] MEDS ORDERED: LEVEMIR (INSULIN DETEMIR) 1 UNITS/0.01ML SC SCH (21:00)
[2019-01-11 21:21] LABS: APPEARANCE, URINE CLEAR (CLEAR); BACTERIA, URINE AUTO NEGATIVE (NEGATIVE); BILIRUBIN, URINE AUTO NEGATIVE (NEGATIVE); BLOOD, URINE BLOOD NEGATIVE (NEGATIVE); COLOR, URINE YELLOW (YELLOW); GLUCOSE, URINE (UA) AUTO 3+ mg/dL (NEGATIVE); KETONE, URINE AUTO TRACE mg/dL (NEGATIVE); LEUKOCYTE ESTERASE, URINE AUTO NEGATIVE (NEGATIVE); NITRITE, URINE AUTO NEGATIVE (NEGATIVE); PROTEIN, URINE AUTO NEGATIVE (NEGATIVE); RBC, URINE AUTO 0 /HPF (0-3); SPECIFIC GRAVITY URINE AUTO 1.017 (1.002-1.035); SQUAMOUS EPITHELIAL CELL UR AU 0 /HPF (0-6); UROBILINOGEN, URINE AUTO 0.2 mg/dL (0.0-2.0); WBC, URINE AUTO 0 /HPF (0-3)
[2019-01-11 21:44] LABS: CREATININE,RANDOM URINE 72.1 MG/DL; SODIUM,RANDOM URINE 72 MEQ/L; UREA NITROGEN RANDOM URINE 740 MG/DL
[2019-01-11] MEDS: SLF 3 ML SYR IV SCH (21:52)
[2019-01-11 23:59] VITALS: BP 133/72
[2019-01-12] MEDS: ACETAMINOPHEN 500 MG TAB PO PRN (00:07)
[2019-01-12 04:00] VITALS: BP 144/80
[2019-01-12] MEDS ORDERED: IBUPROFEN 400 MG TAB PO ONE (05:00)
[2019-01-12] MEDS: SLF 3 ML SYR IV SCH (05:01)
[2019-01-12 05:16] LABS: BASO % 0.1 % (0.0-1.0); EOS % 0.1 % (0.0-3.0); HEMOGLOBIN 13.7 g/dl (13.5-17.5); LYMPH # 2.6 10^3/uL (1.5-4.5); LYMPH % 16.5 % (24.0-44.0); MEAN CORPUSCULAR HEMOGLOBIN 29.4 pg (27.0-33.0); MEAN CORPUSCULAR HGB CONC 34.3 g/dl (32.0-36.5); MEAN CORPUSCULAR VOLUME 85.8 fl (80.0-96.0); MONO # 0.8 10^3/uL (0.0-0.8); NEUTROPHILS # 12.1 10^3/uL (1.8-7.7); NEUTROPHILS % 76.4 % (36.0-66.0); PLATELET COUNT, AUTOMATED 186 10^3/uL (150-450); RED BLOOD COUNT 4.66 10^6/uL (4.30-6.10); WHITE BLOOD COUNT 15.9 10^3/uL (4.0-10.0)
[2019-01-12 05:28] LABS: INR 3.37; PROTHROMBIN TIME 34.1 SECONDS (11.8-14.0)
[2019-01-12 05:33] LABS: BLOOD UREA NITROGEN 24 MG/DL (7-18); CALCIUM LEVEL 8.6 MG/DL (8.5-10.1); CARBON DIOXIDE LEVEL 27 MEQ/L (21-32); CHLORIDE LEVEL 101 MEQ/L (98-107); CREATININE FOR GFR 1.14 MG/DL (0.70-1.30); GLOMERULAR FILTRATION RATE > 60.0 (>56); GLUCOSE, FASTING 272 MG/DL (70-100); POTASSIUM SERUM 3.9 MEQ/L (3.5-5.1); SODIUM LEVEL 136 MEQ/L (136-145)
[2019-01-12 08:00] VITALS: BP 168/100
--- NOTE | 2019-01-12 08:16 | IPN ---
DATE: 01/12/2019 Mr. Ibarra tells me that his pain is still present but the intensity has diminished some and he rates it now as 6/10, but he seems to be very calm and denies any other associated symptoms. He does admit that it is reproducible by palpation just left from his sternum. Vital signs: Blood pressure 144/80, heart rate has been in 70s, afebrile. Saturation 97% on room air. I reviewed his telemetry tracing and he did not have any arrhythmias. Weight is documented as 132 kg. He is alert and oriented appropriate. His jugular venous pulse (JVP) is not high. Lungs are clear. Heart exam reveals regular rhythm. No gallop or rub or murmur is appreciated. Abdomen is soft. No peripheral edema. Laboratory estes, basic metabolic panel remains normal but for glucose 272. CBC reveals still elevated WBC count at 15.9. INR is 3.4. ASSESSMENT AND PLAN: Mr. Ibarra is a 58-year man who underwent intervention to left anterior descending (LAD) with drug-eluting stent and balloon angioplasty to diagonal artery in late September 2018. He presented with persistent left-sided chest discomfort that he initially rated at 10/10 intensity. The discomfort was steady lasting by now for over 48 hours and non-radiating and not aggravated by changing position, taking deep breath, coughing or sneezing. At this point, I would conclude that the pain is noncardiac in nature. There is no evolution on ECG. His multiple cardiac enzymes remain negative. An echocardiogram did not reveal any wall motion abnormality. I do not believe that he has pericarditis as the character of the pain is certainly atypical. I would let him ambulate and provided he can tolerate ambulation I think it is safe to discharge the patient home with his chronic medications. Because he [facility] not [facility], I am going to offer him an outpatient visit in our office in approximately 2 weeks, but I told him that once he finds a rn ambulatory in [place] it his prerogative to followup through the [facility]. I do not have any new recommendations.
[2019-01-12] MEDS: DICLOFENAC EPOLAMINE 1.3 % PATCH TOP SCH (09:00)
[2019-01-12] MEDS: LEVEMIR (INSULIN DETEMIR) 1 UNITS/0.01ML SC SCH (09:05)
[2019-01-12] MEDS: NICOTINE 14 MG/24 HR TRANSDERMAL TD SCH (09:06)
[2019-01-12] MEDS: HumaLOG INSULIN (NovoLOG) PER UNIT SC SCH ×2 (09:06→13:14)
[2019-01-12] MEDS: FOLIC ACID 1 MG TAB PO SCH (09:07)
[2019-01-12] MEDS: GABAPENTIN 300 MG CAP PO SCH (09:07)
[2019-01-12] MEDS: COLCHICINE 0.6 MG TAB PO SCH (09:07)
[2019-01-12] MEDS: DULoxetine 20 MG CAP (CYMBALTA) PO SCH (09:07)
[2019-01-12] MEDS: **hydrALAZINE HCL** 25 MG TAB PO SCH (09:08)
[2019-01-12] MEDS: amLODIPine 10 MG TAB PO SCH (09:09)
[2019-01-12] MEDS: ATORVASTATIN 20 MG TAB PO SCH (09:09)
[2019-01-12] MEDS: CLOPIDOGREL 75 MG TAB PO SCH (09:09)
[2019-01-12 09:10] VITALS: BP 168/100
[2019-01-12] MEDS: ARIPiprazole 10 MG TAB PO SCH (09:10)
[2019-01-12] MEDS: CARVedilol 12.5 MG TAB PO SCH (09:10)
[2019-01-12] MEDS: TAMSULOSIN 0.4 MG CAP PO SCH (09:31)
[2019-01-12] MEDS ORDERED: CLOP75TA2 PO (11:37)
[2019-01-12] MEDS ORDERED: CARV25TA PO (11:37)
[2019-01-12] MEDS ORDERED: HYDR-3911 PO (11:37)
[2019-01-12] MEDS ORDERED: COLC1TAB13 PO (11:37)
[2019-01-12] MEDS ORDERED: AMLO10TA5 PO (11:37)
[2019-01-12] MEDS ORDERED: ACET-683 PO (11:37)
[2019-01-12 12:00] VITALS: BP 147/84
[2019-01-13 00:06] LABS: ANTINUCLEAR ANTIBODIES DIRECT Negative (Negative)
--- NOTE | 2019-01-14 20:58 | DS.PDOC ---
Discharge Summary General Date of Admission Jan 10, 2019 at 02:27 Date of Discharge 01/12/19 Discharge Summary PROCEDURES PERFORMED DURING STAY: ECHO: 1. Normal global left ventricular systolic function with moderate concentric left ventricular hypertrophy. There are some features of grade 1 left ventricular diastolic dysfunction manifested by abnormal relaxation. 2. Aortic valve sclerosis with minimal aortic stenosis, but no aortic radiation. There was also a gradient of about 20 mmHg noted across the LVOT that may be related to some underlying obstructive cardiomyopathy. 3. Mitral annulus calcification with trace mitral regurgitation. Subjectively, the left atrium appeared to be mildly enlarged in limited views. 4. Trace to small pericardial effusion, no evidence of cardiac tamponade. pacemaker wire artifact noted in the right heart chambers. DISCHARGE DIAGNOSES: Nonspecific Chest pain Musculoskeletal Vs Pericarditis Acute Kidney injury Obesity Obstructive Cardiomyopathy. Leucocytosis due to steroids. SECONDARY DIAGNOSIS: lower extremity DVT, and PE status post IVC filter placement & current Coumadin use, CAD status post stent placement in 2014, 2018, Non-insulin dependent diabetes mellitus, Hypertension, History of multiple concussions with residual memory impairment, AICD (The patient stated this was placed because his "heart was thick"), Status post cervical spine and back surgery , BPH, anxiety and depression, Hyperlipidemia COMPLICATIONS/CHIEF COMPLAINT: Chest Pain. 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 ACS was ruled out, PE was ruled out, Aortic dissection was ruled out. Echo showed new pericardial effusion since September 2018 small in size. He had an episode of hives which lasted 2 days about 2 weeks ago. It was felt that he had Pericarditis vs musculoskeletal pain. But in view of his extensive cardiac history it was decided to keep him under observation to fully evaluate his chest pain. Chest pain seems like noncardiac . Definity not having a ACS at present. possibly costochondritis however pericarditis cannot be ruled out absolutely so will continue colchicine but will dc steroids. tylenol and ibuprofen prn for pain Coronary artery disease and recent PTCA/drug-eluting stent to the proximal to mid-LAD in the month of September 2018 and balloon angioplasty to diagonal artery in late September 2018 on plavix and betablocker. Hypertension. controlled hydralazine, coreg, amlodipine Lisinopril stopped due to MERT on admission, Can be restarted as per PMDs discretion Mert on admission now resolved. Diabetes type 2 A1c is 8.2 carb consistent diet continue metformin Hyperlipidemia atorvastatin. History of deep venous thrombosis (DVT) and pulmonary embolism. on coumadin Questionable history of paroxysmal atrial fibrillation. On Coumadin History of automatic implantable cardio converter-defibrillator (AICD)/pacemaker implant. The patient has stated that he was passing out and he was told that he has a big heart and was living in [place], [place]. Echo here shows LVOT obstruction Benign prostatic hypertrophy (BPH). History of memory loss due to prior concussions /cva History of arthritis with degenerative joint disease and disc disease. History of anxiety/depression. continue current medications. Obesity DISCHARGE MEDICATIONS: Please see below. ALLERGIES: Please see below. PHYSICAL EXAMINATION ON DISCHARGE: VITAL SIGNS: Please see below. General Exam: Positive: Alert, Cooperative, No Acute Distress Eye Exam: Positive: PERRLA, Conjunctiva & lids normal, EOMI; Negative: Sclera icteric ENT Exam: Positive: Atraumatic, Mucous membr. moist/pink, Pharynx Normal Neck Exam: Positive: Supple; Negative: JVD, thyromegaly Chest Exam: Positive: Clear to auscultation, Normal air movement Heart Exam: Positive: Rate Normal, Regular Rhythm, Normal S1, Normal S2, Murmurs (systolic murmur); Negative: Rubs Telemetry: Positive: No significant arrhythmia Abdomen Exam: Positive: Normal bowel sounds, Soft; Negative: Tenderness, Hepatospenomegaly Extremity Exam: Positive: Normal pulses; Negative: Clubbing, Cyanosis, Edema Skin Exam: Positive: Nl turgor and temperature; Negative: Rash, Breakdown LABORATORY DATA: Please see below. ACTIVITY: [As tolerated]. DIET: consistent carb DISPOSITION: 01 Home, Self-Care. DISCHARGE INSTRUCTIONS: Cardiology in 2 to 3 weeks PMD in 1 week DISCHARGE CONDITION: [Stable]. TIME SPENT ON DISCHARGE: 35 minutes. Vital Signs/I&Os Vital Signs Date Time Temp Pulse Resp B/P (MAP) Pulse Ox O2 Delivery O2 Flow Rate FiO2 01/12/19 12:00 96.9 70 18 147/84 (105) 98 01/11/19 10:52 Room Air Laboratory Data CBC/BMP Item Value Date Time White Blood Count 15.9 10^3/uL H 01/12/19 043 Red Blood Count 4.66 10^6/uL 01/12/19 0430 Hemoglobin 13.7 g/dl 01/12/19429 Hematocrit 40.0 % L 01/12/19429 Mean Corpuscular Volume 85.8 fl 01/12/19429 Mean Corpuscular Hemoglobin 29.4 pg 01/12/19429 Mean Corpuscular Hemoglobin Concent 34.3 g/dl 01/12/19429 Red Cell Distribution Width 12.6 % 01/12/19429 Platelet Count 186 10^3/uL 01/12/19 043 Immature Granulocyte % (Auto) 1.9 % 01/12/19 043 Neutrophils (%) (Auto) 76.4 % H 01/12/19429 Lymphocytes (%) (Auto) 16.5 % L 01/12/19 043 Monocytes (%) (Auto) 5.0 % 01/12/19429 Eosinophils (%) (Auto) 0.1 % 01/12/19429 Basophils (%) (Auto) 0.1 % 01/12/19429 Neutrophils # (Auto) 12.1 10^3/uL H 01/12/19 0430 Lymphocytes # (Auto) 2.6 10^3/uL 01/12/19 0430 Monocytes # (Auto) 0.8 10^3/uL 01/12/19 0430 Eosinophils # (Auto) 0.0 10^3/uL 01/12/19 0430 Basophils # (Auto) 0.0 10^3/uL 01/12/19 0430 Nucleated Red Blood Cells % (auto) 0.0 % 01/12/19429 Sodium Level 136 MEQ/L 01/12/19429 Potassium Level 3.9 MEQ/L 01/12/19429 Chloride Level 101 MEQ/L 01/12/19 043 Carbon Dioxide Level 27 MEQ/L 01/12/19429 Anion Gap 8 MEQ/L 01/12/19429 Blood Urea Nitrogen 24 MG/DL H 01/12/19429 Creatinine 1.14 MG/DL 01/12/19429 Glomerular Filtration Rate > 60.0 01/12/19429 Fasting Glucose 272 MG/DL H 01/12/19429 Calcium Level 8.6 MG/DL 01/12/19429 Troponin I < 0.02 NG/ML 01/10/19702 Troponin I < 0.02 NG/ML 01/10/19 170 Troponin I < 0.02 NG/ML 01/11/19 0639 Triglycerides Level 124 MG/DL 01/10/19702 Total Cholesterol 132 MG/DL 01/10/19702 LDL Cholesterol 62 MG/DL 01/10/19702 Non-HDL Cholesterol (LDL + VLDL) 87 MG/DL 01/10/19702 Total HDL Cholesterol 45 MG/DL 01/10/19702 Cholesterol/HDL Ratio 2.933 01/10/19702 Hemoglobin A1c 8.3 % 01/10/19702 Discharge Medications Scheduled Amlodipine Besylate (Amlodipine Besylate) 10 Mg Tablet, 10 MG PO DAILY Aripiprazole (Aripiprazole) 10 Mg Tablet, 5 MG PO DAILY, (Reported) Atorvastatin Calcium (Atorvastatin Calcium) 80 Mg Tablet, 40 MG PO DAILY, (Reported) Carvedilol (Carvedilol) 25 Mg Tablet, 25 MG PO BID Cholecalciferol (Vitamin D3) (Vitamin D3) 1,000 Unit Capsule, 1,000 UNITS PO DAILY, (Reported) Clopidogrel Bisulfate (Clopidogrel) 75 Mg Tablet, 75 MG PO DAILY Colchicine (Colchicine) 0.6 Mg Tablet, 0.6 MG PO BID Cyanocobalamin (Vitamin B-12) (Vitamin B-12) 500 Mcg Tablet, 500 MCG PO DAILY, (Reported) Duloxetine Hcl (Duloxetine HCl) 20 Mg Capsule.dr, 40 MG PO DAILY, (Reported) Folic Acid (Folic Acid) 1 Mg Tablet, 1 MG PO DAILY, (Reported) Gabapentin (Neurontin) 600 Mg Tablet, 1,200 MG PO QAM, (Reported) Gabapentin (Gabapentin) 600 Mg Tablet, 600 MG PO QPM, (Reported) Hydralazine HCl (Hydralazine HCl) 50 Mg Tablet, 50 MG PO BID Metformin HCl (Metformin HCl) 1,000 Mg Tablet, 1,000 MG PO BID, (Reported) Mirtazapine (Remeron) 15 Mg Tablet, 7.5 MG PO QHS, (Reported) Tamsulosin HCl (Flomax) 0.4 Mg Capsule, 0.4 MG PO DAILY, (Reported) Warfarin Sodium (Warfarin Sodium) 5 Mg Tablet, 5 MG PO 3XW, (Reported) FRIDAY, FRIDAY, FRIDAY Warfarin Sodium (Warfarin Sodium) 5 Mg Tablet, 2.5 MG PO 4XWK, (Reported) FRIDAY, FRIDAY, FRIDAY, FRIDAY Scheduled PRN Acetaminophen (Acetaminophen) 500 Mg Tablet, 1,000 MG PO Q8HP PRN for PAIN / FEVER Melatonin (Melatonin) 3 Mg Tablet, 6 MG PO QHS PRN for SLEEP, (Reported) Nitroglycerin (Nitroglycerin) 0.4 Mg Tab.subl, 0.4 MG SL Q5MP PRN for CHEST PAIN, (Reported) 1st sign of attack; may repeat every 5 mins; if pain persists after 3 in 15 min, medical attention is recommended Trazodone HCl (Trazodone HCl) 50 Mg Tablet, 100 MG PO QHS PRN for SLEEP, (Reported) MAY TAKE UP TO 150 MG FOR DIFFICULTY SLEEPING Allergies Coded Allergies: nifedipine (Verified Allergy, Mild, angina, 01/09/19) prochlorperazine (Verified Allergy, Mild, vomiting, 01/09/19) cyclobenzaprine (Verified Adverse Reaction, Mild, anxiety, 01/09/19) CARITO LAURENT MD Jan 14, 2019 20:58
== END 2019-01-12 15:11 | disposition home or self-care (01) ==
LOC: M ED 20:24 → M ED INP 20:25 → INTOOBSV 01-10 02:27 → UNDOADMOB 01-10 02:27 → M ED INP 01-10 02:27 → M PCU 01-11 15:15 → M ED INP 01-11 15:15 → UNDODISOB 01-12 15:11
PROVIDERS: ADMIT Internal Medicine; ATTEND Internal Medicine Nephrology
DX: R07.89 Other chest pain (principal); N17.9 Acute kidney failure, unspecified; E66.9 Obesity, unspecified; I42.1 Obstructive hypertrophic cardiomyopathy; D72.829 Elevated white blood cell count, unspecified; Z79.84 Long term (current) use of oral hypoglycemic drugs; Z79.01 Long term (current) use of anticoagulants; E11.9 Type 2 diabetes mellitus without complications; I25.10 Atherosclerotic heart disease of native coronary artery without angina pectoris; Z95.5 Presence of coronary angioplasty implant and graft; Z95.828 Presence of other vascular implants and grafts; E78.49 Other hyperlipidemia; I10 Essential (primary) hypertension; Z86.73 Personal history of transient ischemic attack (TIA), and cerebral infarction without residual deficits; Z86.711 Personal history of pulmonary embolism; Z95.810 Presence of automatic (implantable) cardiac defibrillator; Z88.8 Allergy status to other drugs, medicaments and biological substances; F17.210 Nicotine dependence, cigarettes, uncomplicated
CPT/HCPCS: 36415; 71045; 71250; 76775; 80048; 80061; 81001; 82550; 82553; 82570; 83036; 83735; 83880; 84300; 84484; 84540; 85025; 85610; 85652; 86038; 86140; 86431; 93005; 93041; 93306; 94760; 96361; 96374; 96375; 96376; 99285; G0378; J1170; J1885; J2270; J2405; J2930

== ENCOUNTER 2019-05-22 08:47 | Inpatient (IN) | payer MEDICARE, OTHER ==
[~2019-05-22] VITALS: Ht 182.9 cm; Wt 134.0 kg
[2019-05-22] MEDS ORDERED: METOPROLOL SUCC (TopROL XL) 50MG **XL** TAB PO SCH (09:00)
[2019-05-22 09:39] LABS: BASO % 0.5 % (0.0-1.0); EOS # 0.1 10^3/uL (0.0-0.5); EOS % 1.8 % (0.0-3.0); HEMATOCRIT 49.7 % (42.0-52.0); HEMOGLOBIN 16.8 g/dl (13.5-17.5); LYMPH % 25.8 % (24.0-44.0); MEAN CORPUSCULAR HEMOGLOBIN 29.3 pg (27.0-33.0); MEAN CORPUSCULAR HGB CONC 33.8 g/dl (32.0-36.5); MEAN CORPUSCULAR VOLUME 86.6 fl (80.0-96.0); MONO # 0.7 10^3/uL (0.0-0.8); MONO % 8.4 % (0.0-5.0); NEUTROPHILS # 4.8 10^3/uL (1.5-8.5); NEUTROPHILS % 62.6 % (36.0-66.0); PLATELET COUNT, AUTOMATED 244 10^3/uL (150-450); RED BLOOD COUNT 5.74 10^6/uL (4.30-6.10); WHITE BLOOD COUNT 7.7 10^3/uL (4.0-10.0)
[2019-05-22 09:53] LABS: INR 2.1; PROTHROMBIN TIME 23.4 SECONDS (11.8-14.0)
[2019-05-22] MEDS ORDERED: NS 1,000 ML IV ONE (10:00)
[2019-05-22] MEDS ORDERED: ONDANSETRON 4MG/2ML VIAL (J2405) IV ONE (10:00)
[2019-05-22 10:17] LABS: ALBUMIN 4.6 GM/DL (3.2-5.2); ALT/SGPT 84 U/L (12-78); BILIRUBIN,DIRECT 0.1 MG/DL (0.0-0.2); BILIRUBIN,TOTAL 0.9 MG/DL (0.2-1.0); BLOOD UREA NITROGEN 15 MG/DL (7-18); CALCIUM LEVEL 10.2 MG/DL (8.5-10.1); CARBON DIOXIDE LEVEL 27 MEQ/L (21-32); CHLORIDE LEVEL 100 MEQ/L (98-107); CK-MB VALUE MASS 1.1 NG/ML (<3.6); CPK CREATINE PHOSPHOKINASE 84 U/L (39-308); CREATININE FOR GFR 1.07 MG/DL (0.70-1.30); GLOMERULAR FILTRATION RATE > 60.0 (>56); GLUCOSE, FASTING 234 MG/DL (70-100); LIPASE 73 U/L (73-393); MB/CK RELATIVE INDEX 1.31 (< OR =4); POTASSIUM SERUM 4.1 MEQ/L (3.5-5.1); SODIUM LEVEL 137 MEQ/L (136-145); TROPONIN I < 0.02 NG/ML (< 0.10)
[2019-05-22] MEDS ORDERED: hydrALAZINE INJ 20 MG/ML VIAL IV STA ×2 (10:27→11:41)
[2019-05-22 10:44] LABS: INFLUENZA A AMPLIFICATION NEGATIVE (NEGATIVE); INFLUENZA B AMPLIFICATION NEGATIVE (NEGATIVE)
[2019-05-22] MEDS ORDERED: METOCLOPRAMIDE INJ 10MG/2ML VIAL (J2765) IV ONE (11:00)
[2019-05-22] MEDS ORDERED: KETOROLAC 30 MG/ML VIAL (J1885) IV ONE (11:00)
[2019-05-22] MEDS ORDERED: ISOVUE-370 76% 100ML VIAL (Q9967) As Ordered ONE (11:01)
--- NOTE | 2019-05-22 11:32 | REP ---
Clinical: Acute headache . Comparison: None . Findings: The ventricles, sulci, and cisterns are normal in position and appearance. Rosas-white differentiation is maintained. No acute intracranial hemorrhage, mass/mass effect, pathology or trauma/injury. No evidence for acute infarction. No extra-axial fluid collection. Calvarium is intact. Paranasal sinuses and mastoid air cells are clear. Impression: Normal noncontrast head CT. No evidence for acute intracranial pathology or trauma/injury. Electronically Signed by Michael Bourgeois MD 05/22/2019 11:23 A
[2019-05-22 11:35] LABS: TOTAL PROTEIN 8.6 GM/DL (6.4-8.2)
--- NOTE | 2019-05-22 11:36 | REP ---
Clinical: Abdominal pain with vomiting and diarrhea. Technique: Axial contrast enhanced images from the lung bases to the pubic symphysis using 100 ml Isovue 370 intravenous contrast material with coronal and sagittal re-formations. Findings: Lung bases are clear. Mild fatty infiltration to the liver noted. Spleen, pancreas, gallbladder, bilateral adrenal glands and kidneys are normal. The enteric system including stomach, small, and large bowel is without obstruction or acute inflammatory process. Normal terminal ileum, cecum and appendix identified in the right lower quadrant. 1.5 cm fat containing periumbilical hernia. Pelvis demonstrates prostatomegaly new with mass effect on the normal appearing bladder. No ascites. No free air. No adenopathy. Atherosclerotic changes to the aorta and vasculature without aneurysm or dissection. Infrarenal IVC filter appear identified. Musculoskeletal structures demonstrate degenerative changes and prior posterior fixation at the L5-S1 level. Impression: 1. No acute abdominopelvic pathology appreciated. 2. Hepatic steatosis. 3. 1.5 cm fat containing periumbilical hernia. Electronically Signed by Michael Bourgeois MD 05/22/2019 11:27 A
[2019-05-22] MEDS ORDERED: amLODIPine 10 MG TAB PO ONE (11:45)
[2019-05-22] MEDS: HYDROMORPHONE HCL 0.5 MG/ 0.5 ML SYRINGE (J1170 PER 1) IV PRN ×2 (12:16→14:33)
[2019-05-22] MEDS ORDERED: HYDR10TAB PO (13:36)
[2019-05-22] MEDS ORDERED: ACET-683 PO (13:36)
[2019-05-22] MEDS ORDERED: VITA100066 PO (13:36)
[2019-05-22] MEDS ORDERED: CARV12.5 PO (13:36)
[2019-05-22] MEDS ORDERED: DULO1CAP6 PO (13:36)
[2019-05-22] MEDS ORDERED: FAMO20TA PO (13:36)
[2019-05-22] MEDS ORDERED: LISI40TA PO (13:36)
[2019-05-22] MEDS ORDERED: ASPI81TA85 PO (13:36)
[2019-05-22] MEDS ORDERED: NITROGLYCERIN 0.4 MG SUBL TABLET SL PRN (14:15)
[2019-05-22] MEDS ORDERED: ONDANSETRON 4MG/2ML VIAL (J2405) IV PRN (14:15)
[2019-05-22] MEDS ORDERED: DEXTROSE 50% 50 ML SYRINGE IV PRN (14:30)
[2019-05-22] MEDS ORDERED: GLUCAGON FOR INJ 1 MG VIAL (J1610) SC PRN (14:30)
[2019-05-22] MEDS ORDERED: GLUCOSE 4 GM CHEW TABLET PO PRN (14:30)
[2019-05-22] MEDS ORDERED: SUMAtriptan SUCCINATE 6 MG/0.5 ML VIAL SC ONE (14:30)
[2019-05-22 14:55] VITALS: BP 175/115
[2019-05-22] MEDS ORDERED: FIORICET TAB PO ONE (15:30)
[2019-05-22] MEDS: ASPIRIN 81 MG ENTERIC TAB PO SCH (15:33)
[2019-05-22] MEDS: lisinopriL 40 MG TAB PO SCH (15:34)
[2019-05-22] MEDS: CYANOCOBALAMIN 500 MCG TAB PO SCH (15:34)
[2019-05-22] MEDS: FOLIC ACID 1 MG TAB PO SCH (15:34)
[2019-05-22] MEDS: **hydrALAZINE** 10 MG TAB PO SCH ×2 (15:34→20:51)
[2019-05-22] MEDS: VITAMIN D 1,000 INTERNATIONAL UNITS TABLET PO SCH (15:34)
[2019-05-22] MEDS: GABAPENTIN 300 MG CAP PO SCH ×2 (15:35→20:48)
[2019-05-22] MEDS: NS 1,000 ML IV SCH (15:35)
[2019-05-22] MEDS: NICOTINE 14 MG/24 HR TRANSDERMAL TD SCH (15:35)
--- NOTE | 2019-05-22 15:47 | HPEPDOC ---
General Date of Admission May 22, 2019 at 08:48 Date of Service: May 22, 2019 Chief Complaint The patient is a 59-year-old male admitted with a reason for visit of Hypertensive Urgency. Source: Patient Exam Limitations: Mild cognitive slowing Timing/Duration: 24 hours Severity: Moderate Associated Symptoms: Headaches, Nausea, Vomiting History of Present Illness Mr. Ibarra is a 59-year-old male who is presenting to the emergency room with headache and elevated blood pressures. The patient states he had onset of headache. It was followed by nausea, vomiting and sensitivity to light. The patient has an underlying history of migraine headaches. The patient also reports diarrhea. Onset of vomiting was in route to the hospital. He did not have any blood to his emesis or stools. He reports that the diarrhea has stopped. Upon initial evaluation in the emergency room, systolic blood pressure ranges from 180 to over 200. Patient has a history of hypertension but has been unable to take his medications due to nausea and vomiting. Home Medications Scheduled Aripiprazole (Aripiprazole) 10 Mg Tablet, 5 MG PO QHS, (Reported) Aspirin (Aspir 81) 81 Mg Tablet.dr, 81 MG PO DAILY, (Reported) Atorvastatin Calcium (Atorvastatin Calcium) 80 Mg Tablet, 40 MG PO QHS, (Repor kailey) Carvedilol (Carvedilol) 12.5 Mg Tablet, 12.5 MG PO BID, (Reported) Cholecalciferol (Vitamin D3) (Vitamin D3) 1,000 Unit Tablet, 1,000 UNIT PO DAILY, (Reported) Cyanocobalamin (Vitamin B-12) (Vitamin B-12) 500 Mcg Tablet, 500 MCG PO DAILY, (Reported) Duloxetine Hcl (Duloxetine HCl) 60 Mg Capsule.dr, 60 MG PO QHS, (Reported) Famotidine (Famotidine) 20 Mg Tablet, 20 MG PO DAILY, (Reported) Folic Acid (Folic Acid) 1 Mg Tablet, 1 MG PO DAILY, (Reported) Gabapentin (Neurontin) 600 Mg Tablet, 600 MG PO TID, (Reported) Hydralazine HCl (Hydralazine HCl) 10 Mg Tablet, 10 MG PO TID, (Reported) Lisinopril (Lisinopril) 40 Mg Tablet, 40 MG PO DAILY, (Reported) Metformin HCl (Metformin HCl) 1,000 Mg Tablet, 1,000 MG PO BID, (Reported) Tamsulosin HCl (Flomax) 0.4 Mg Capsule, 0.4 MG PO QHS, (Reported) Warfarin Sodium (Warfarin Sodium) 5 Mg Tablet, 5 MG PO 3XW, (Reported) FRIDAY, FRIDAY, FRIDAY Warfarin Sodium (Warfarin Sodium) 5 Mg Tablet, 2.5 MG PO 4XWK, (Reported) FRIDAY, FRIDAY, FRIDAY, FRIDAY Scheduled PRN Acetaminophen (Acetaminophen) 500 Mg Tablet, 1,000 MG PO Q6H PRN for PAIN, (Reported) Nitroglycerin (Nitroglycerin) 0.4 Mg Tab.subl, 0.4 MG SL Q5MP PRN for CHEST PAIN, (Reported) 1st sign of attack; may repeat every 5 mins; if pain persists after 3 in 15 min, medical attention is recommended Allergies Coded Allergies: nifedipine (Verified Allergy, Mild, angina, 01/09/19) prochlorperazine (Verified Allergy, Mild, vomiting, 01/09/19) cyclobenzaprine (Verified Adverse Reaction, Mild, anxiety, 01/09/19) Past Medical History Medical History Past medical history is remarkable for a subtype of obstructive cardiomyopathy, grade 1 diastolic dysfunction with ejection fraction of 65-70% and concern and trichomoniasis. 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 The patient also has a history of stroke in 2015. Patient had left-sided deficits that resolved after going to physical rehabilitation. Surgical History Patient reports unspecified knee surgeries. He's also had cervical and lumbar fusion. Family History Significant Family History: Cancer, Heart disease Social History * Smoker: less than 1 pack/day Alcohol: occationally Psychosocial History: Depression Patient is classified as disabled. 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 A-FIB/CHADSVASC A-FIB History Current/History of A-Fib/PAF?: No Current PO Anticoag Therapy: Yes Review of Systems Other systems 10 system review is otherwise negative except as stated in the HPI. Physical Examination General Exam: Positive: Alert, Cooperative, Mild Distress, Other (the patient is extremely polite. He does have discomfort from his nausea.) Eye Exam: Positive: PERRLA, EOMI, Other Eye Symptoms (patient prefers to be in the dark. Right now) ENT Exam: Positive: Atraumatic, Mucous membr. moist/pink, Nares Patent Neck Exam: Positive: Supple; Negative: JVD, thyromegaly Chest Exam: Positive: Clear to auscultation, Normal air movement Heart Exam: Positive: Regular Rhythm; Negative: Rate Normal, Tachycardic, Bradycardic, Irregular Rhythm, Normal S1, Normal S2, Gallops, Murmurs, Rubs, Other Telemetry: Positive: Tachycardia (rate 110 on the monitor) Abdomen Exam: Positive: Normal bowel sounds, Other (notable central obesity with a body max index of 39.7); Negative: BS Hyperactive, BS Hypoactive, Soft, Tenderness, Hepatospenomegaly, Mass, Hernia Extremity Exam: Positive: Normal pulses; Negative: Clubbing, Cyanosis, Edema Skin Exam: Positive: Nl turgor and temperature; Negative: Breakdown, Lesion Neuro Exam: Positive: Normal Speech, Cranial Nerves 3-12 NL Psych Exam: Positive: Mental status NL, Mood NL, Oriented x 3, Other (cognition is somewhat impaired) Vital Signs Vital Signs Date Time Temp Pulse Resp B/P (MAP) Pulse Ox O2 Delivery O2 Flow Rate FiO2 05/22/19 14:45 97.7 101 22 184/106 (132) 98 05/22/19 14:33 Room Air Laboratory Data Labs 24H Laboratory Tests 2 05/22/19 09:25: Immature Granulocyte % (Auto) 0.9, Neutrophils (%) (Auto) 62.6, Lymphocytes (%) (Auto) 25.8, Monocytes (%) (Auto) 8.4H, Eosinophils (%) (Auto) 1.8, Basophils (%) (Auto) 0.5, Neutrophils # (Auto) 4.8, Lymphocytes # (Auto) 2.0, Monocytes # (Auto) 0.7, Eosinophils # (Auto) 0.1, Basophils # (Auto) 0.0, Nucleated Red Blood Cells % (auto) 0.0, Prothrombin Time 23.4H, Prothromb Time International Ratio 2.10, Anion Gap 10, Glomerular Filtration Rate > 60.0, Calcium Level 10.2H, Total Bilirubin 0.9, Direct Bilirubin 0.1, Aspartate Amino Transf (AST/SGOT) 55H, Alanine Aminotransferase (ALT/SGPT) 84H, Alkaline Phosphatase 92, Total Creatine Kinase 84, Creatine Kinase MB 1.1, Creatine Kinase MB Relative Index 1.31, Troponin I < 0.02, Total Protein 9.0H, Total Protein (PEP) 8.6H, Albumin 4.6, Albumin/Globulin Ratio 1.05, Lipase 73 05/22/19 10:01: Influenza Type A (RT-PCR) NEGATIVE, Influenza Type B (RT-PCR) NEGATIVE CBC/BMP Laboratory Tests 05/22/19 09:25 Assessment/Plan 1. Hypertensive urgency. The patient's usual home medications include hydralazine, Coreg, Norvasc and lisinopril. He has been unable to take any of these due to his nausea and vomiting. If we can get his nausea and vomiting under control, we can restore his medications. He has had suboptimal response to IV hydralazine. We can also try IV labetalol as well. 2. Migraine headache. The patient is not usually on a medication regimen at home. He has headache accompanied by nausea and subsequent vomiting. He also has light sensitivity. We will try treating him with Fioricet. 3. Coronary artery disease with obstructive cardiomyopathy He hopes to restore the patient's usual medication regimen. He also has an AICD in place. 4. Emd-vfkepsh-kulxxpvmk diabetes mellitus The patient is maintained on a regimen of metformin and there is no contraindication to continuing this at this time. 5. History of DVT and PE. There is also question of paroxysmal atrial fibrillation. In any case, patient remains anticoagulated with Coumadin. Plan / VTE VTE Prophylaxis Ordered?: Yes (patient is maintained on Coumadin) Plan IVF: Initiate Diet: Continue Current Activity: Continue Current Medications: Replete Electrolytes IV, Replete Electrolytes PO Diagnostics: Check Labs, Repeat Labs in AM Anticipated Discharge: Home GENNY BURTON MD May 22, 2019 15:46
[2019-05-22 16:00] VITALS: BP 151/86
[2019-05-22] MEDS: HumaLOG INSULIN (NovoLOG) PER UNIT SC SCH ×2 (17:11→21:00)
[2019-05-22] MEDS: WARFARIN SOD 5 MG TAB PO SCH (17:12)
[2019-05-22] MEDS: METOCLOPRAMIDE INJ 10MG/2ML VIAL (J2765) IV PRN (18:16)
[2019-05-22 18:28] VITALS: BP 160/94
[2019-05-22 20:00] VITALS: BP 162/70
[2019-05-22] MEDS: DULoxetine 30 MG CAP (CYMBALTA) PO SCH (20:48)
[2019-05-22] MEDS: FIORICET TAB PO PRN (20:49)
[2019-05-22] MEDS: ATORVASTATIN 20 MG TAB PO SCH (20:49)
[2019-05-22] MEDS: CARVedilol 12.5 MG TAB PO SCH (20:51)
[2019-05-22] MEDS: TAMSULOSIN 0.4 MG CAP PO SCH (20:51)
[2019-05-22] MEDS ORDERED: metFORMIN (GLUCOPHAGE) 1000 MG TABLET PO SCH (21:00)
[2019-05-22] MEDS ORDERED: CARVedilol 12.5 MG TAB PO SCH (21:00)
[2019-05-22] MEDS: ACETAMINOPHEN TAB 650MG DOSE (2X325MG) PO PRN (21:42)
[2019-05-22 23:59] VITALS: BP 167/83
[2019-05-23] VITALS (7 sets, daily range): BP systolic 150–160; BP diastolic 62–96
[2019-05-23] MEDS: METOCLOPRAMIDE INJ 10MG/2ML VIAL (J2765) IV PRN ×4 (00:22→20:07)
[2019-05-23] MEDS: FAMOTIDINE INJ 20MG/2ML VIAL (S0028) IVP SCH ×3 (00:22→20:08)
[2019-05-23] MEDS: FIORICET TAB PO PRN ×3 (03:43→20:08)
[2019-05-23] MEDS: NS 1,000 ML IV SCH ×2 (03:43→17:01)
[2019-05-23] MEDS: ACETAMINOPHEN TAB 650MG DOSE (2X325MG) PO PRN ×3 (03:46→20:08)
[2019-05-23] MEDS ORDERED: PROCHLORPERAZINE 5 MG TAB (S0183) PO ONE (04:30)
[2019-05-23 05:25] LABS: HEMATOCRIT 41.8 % (42.0-52.0); HEMOGLOBIN 14.3 g/dl (13.5-17.5); MEAN CORPUSCULAR HEMOGLOBIN 29.2 pg (27.0-33.0); MEAN CORPUSCULAR HGB CONC 34.2 g/dl (32.0-36.5); MEAN CORPUSCULAR VOLUME 85.5 fl (80.0-96.0); PLATELET COUNT, AUTOMATED 221 10^3/uL (150-450); RED BLOOD COUNT 4.89 10^6/uL (4.30-6.10); WHITE BLOOD COUNT 7.3 10^3/uL (4.0-10.0)
[2019-05-23 05:29] LABS: INR 2.43; PROTHROMBIN TIME 26.2 SECONDS (11.8-14.0)
[2019-05-23 05:49] LABS: BLOOD UREA NITROGEN 20 MG/DL (7-18); CALCIUM LEVEL 8.8 MG/DL (8.5-10.1); CARBON DIOXIDE LEVEL 22 MEQ/L (21-32); CHLORIDE LEVEL 105 MEQ/L (98-107); CREATININE FOR GFR 0.99 MG/DL (0.70-1.30); GLOMERULAR FILTRATION RATE > 60.0 (>56); GLUCOSE, FASTING 232 MG/DL (70-100); POTASSIUM SERUM 3.8 MEQ/L (3.5-5.1); SODIUM LEVEL 133 MEQ/L (136-145)
[2019-05-23] MEDS: GABAPENTIN 300 MG CAP PO SCH ×3 (08:26→20:06)
[2019-05-23] MEDS: lisinopriL 40 MG TAB PO SCH (08:27)
[2019-05-23] MEDS: CARVedilol 12.5 MG TAB PO SCH ×2 (08:27→18:11)
[2019-05-23] MEDS: FOLIC ACID 1 MG TAB PO SCH (08:27)
[2019-05-23] MEDS: **hydrALAZINE** 10 MG TAB PO SCH ×3 (08:27→20:15)
[2019-05-23] MEDS: CYANOCOBALAMIN 500 MCG TAB PO SCH (08:27)
[2019-05-23] MEDS: VITAMIN D 1,000 INTERNATIONAL UNITS TABLET PO SCH (08:27)
[2019-05-23] MEDS: ASPIRIN 81 MG ENTERIC TAB PO SCH (08:27)
[2019-05-23] MEDS: NICOTINE 14 MG/24 HR TRANSDERMAL TD SCH (08:28)
[2019-05-23] MEDS: HumaLOG INSULIN (NovoLOG) PER UNIT SC SCH ×4 (08:28→19:52)
--- NOTE | 2019-05-23 15:28 | ECGEPIP ---
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
[2019-05-23] MEDS: WARFARIN SOD 2.5 MG TAB PO SCH (17:00)
[2019-05-23] MEDS ORDERED: KETOROLAC 30 MG/ML VIAL (J1885) IV ONE (19:15)
[2019-05-23] MEDS: DULoxetine 30 MG CAP (CYMBALTA) PO SCH (20:06)
[2019-05-23] MEDS: ATORVASTATIN 20 MG TAB PO SCH (20:06)
[2019-05-23] MEDS: TAMSULOSIN 0.4 MG CAP PO SCH (20:07)
[2019-05-24 04:00] VITALS: BP 134/66
[2019-05-24] MEDS: FIORICET TAB PO PRN ×3 (04:07→21:13)
[2019-05-24] MEDS: METOCLOPRAMIDE INJ 10MG/2ML VIAL (J2765) IV PRN (04:07)
[2019-05-24 05:53] LABS: INR 2.52
[2019-05-24 05:59] LABS: HEMOGLOBIN A1c 8.2 %
--- NOTE | 2019-05-24 06:38 | IPN ---
DATE OF SERVICE: 05/23/2019 This is a 59-year-old male who was admitted for hypertensive urgency. He had been having nausea and vomiting. He was unable to hold any of his hypertensive medicines down. He had diarrhea, but that has stopped. Today, he states he has a headache, but no further nausea or vomiting. Blood pressures have been running 154/88 and 160/78. LABORATORY STUDIES: Sodium 133, potassium 3.8, chloride 105, CO2 22, BUN 20, creatinine 0.99, glucose 232. He had a CT of his head which showed no evidence for acute intracranial pathology or trauma/injury. He had a CT of his abdomen and pelvis which showed lung bases clear, mild fatty infiltration to the liver noted, no acute abdominopelvic pathology appreciated, hepatic steatosis, and a 1.5 cm fat containing periumbilical hernia. PHYSICAL EXAMINATION: Blood pressure 154/88. Pulse 88. Respirations 18. Oxygen saturation 97% on room air. The patient is alert and oriented times three. Pupils equal and reactive to light. Extraocular movements intact. Cornea and sclera clear. Conjunctiva normal. No facial asymmetry. Pharynx, tongue, and gums pink and moist. Tongue is midline. Neck is supple, without lymphadenopathy. No thyromegaly. No goiter. Carotids 2+, without bruit. Chest clear to auscultation, without wheeze or retraction. Heart is regular without murmur or gallop. Abdomen benign. Bowel sounds are positive. /Rectal: Not done. Extremities show equal strength. Full range of motion. No cyanosis, clubbing or edema. Peripheral pulses equal and palpable bilaterally. Skin is warm and dry. Cranial nerves III-XII grossly intact. IMPRESSION AND PLAN: 1. Hypertensive urgency. Will increase his by mouth hydralazine from 10 three times a day to 20 three times a day. Will continue to monitor blood pressure. Add or adjust medications as needed. 2. Migraine headache. He was still having a headache this afternoon despite Fioricet. Discussed with pharmacy. Will give him a one time dose of Toradol. 3. Coronary artery disease with obstructive cardiomyopathy. AICD in place. 4. Non insulin dependent diabetes. Has continued his metformin 1000 mg by mouth twice a day. Will get a hemoglobin A1c. Continue consistent carbohydrate diet. Finger stick blood sugars before meals and at bedtime. Medications if needed. 5. History of deep vein thrombosis (DVT)/pulmonary embolism (PE). Question if possible paroxysmal atrial fibrillation. The patient remains anticoagulated with Coumadin. Venous thromboembolism (VTE) prophylaxis ordered. Patient is on Coumadin. INR today is 2.43.
[2019-05-24 08:00] VITALS: BP 162/94
[2019-05-24] MEDS: GABAPENTIN 300 MG CAP PO SCH ×3 (08:51→21:12)
[2019-05-24] MEDS: VITAMIN D 1,000 INTERNATIONAL UNITS TABLET PO SCH (08:51)
[2019-05-24] MEDS: CYANOCOBALAMIN 500 MCG TAB PO SCH (08:51)
[2019-05-24] MEDS: CARVedilol 12.5 MG TAB PO SCH ×2 (08:52→21:11)
[2019-05-24] MEDS: **hydrALAZINE** 10 MG TAB PO SCH ×3 (08:52→21:12)
[2019-05-24] MEDS: lisinopriL 40 MG TAB PO SCH (08:52)
[2019-05-24] MEDS: FAMOTIDINE INJ 20MG/2ML VIAL (S0028) IVP SCH ×2 (08:52→21:13)
[2019-05-24] MEDS: ASPIRIN 81 MG ENTERIC TAB PO SCH (08:52)
[2019-05-24] MEDS: FOLIC ACID 1 MG TAB PO SCH (08:52)
[2019-05-24] MEDS: NICOTINE 14 MG/24 HR TRANSDERMAL TD SCH (08:53)
[2019-05-24] MEDS: HumaLOG INSULIN (NovoLOG) PER UNIT SC SCH ×4 (08:54→20:59)
[2019-05-24 09:14] LABS: HEMATOCRIT 39.5 % (42.0-52.0); HEMOGLOBIN 13.7 g/dl (13.5-17.5); MEAN CORPUSCULAR HEMOGLOBIN 29.5 pg (27.0-33.0); MEAN CORPUSCULAR HGB CONC 34.7 g/dl (32.0-36.5); MEAN CORPUSCULAR VOLUME 85.1 fl (80.0-96.0); PLATELET COUNT, AUTOMATED 182 10^3/uL (150-450); RED BLOOD COUNT 4.64 10^6/uL (4.30-6.10); WHITE BLOOD COUNT 6.5 10^3/uL (4.0-10.0)
[2019-05-24 09:25] LABS: ALT/SGPT 52 U/L (12-78); BILIRUBIN,TOTAL 0.6 MG/DL (0.2-1.0); BLOOD UREA NITROGEN 15 MG/DL (7-18); CALCIUM LEVEL 8.5 MG/DL (8.5-10.1); CARBON DIOXIDE LEVEL 24 MEQ/L (21-32); CHLORIDE LEVEL 109 MEQ/L (98-107); CREATININE FOR GFR 0.98 MG/DL (0.70-1.30); GLOMERULAR FILTRATION RATE > 60.0 (>56); GLUCOSE, FASTING 173 MG/DL (70-100); POTASSIUM SERUM 4.4 MEQ/L (3.5-5.1); SODIUM LEVEL 142 MEQ/L (136-145)
[2019-05-24 09:26] LABS: ALBUMIN 3.3 GM/DL (3.2-5.2); TOTAL PROTEIN 6.2 GM/DL (6.4-8.2)
--- NOTE | 2019-05-24 09:29 | IPN ---
DATE OF SERVICE: 05/24/2019 Jagjit is seen in PCU. 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 He has diabetes. A1c was 8.1%. He has no current chest pain or shortness of breath. Blood pressure is under better control, but still elevated at 162/94. General Appearance: Alert, conversant, in no distress. Lungs: Clear. Heart: Regular rhythm. /6 systolic ejection murmur. Abdomen: Soft. Nontender. No masses. No peripheral edema. LABS: No labs were ordered, will put an order in for them today. IMPRESSION: 1. Hypertensive urgency. Blood pressure medicines are still being adjusted. Blood pressure is still mildly elevated. Will stop his IV fluids. He is well hydrated at this point. 2. History of deep vein thrombosis (DVT). He is on warfarin. His INR is therapeutic. Continue current dose of warfarin. 3. Hyperlipidemia. Continue atorvastatin. 4. Headaches. These are getting better. His vasodilator/hydralazine is probably contributing to this. 5. Diabetes. Blood sugar is under fair, but not optimal control. Therapy probably needs to be augmented as an outpatient. 6. Benign prostatic hypertrophy (BPH). Continue tamsulosin. 7. History of depression. Continue Abilify and duloxetine.
[2019-05-24 12:00] VITALS: BP 168/102
[2019-05-24] MEDS: ACETAMINOPHEN TAB 650MG DOSE (2X325MG) PO PRN (12:31)
[2019-05-24 13:43] VITALS: BP 160/84
[2019-05-24] MEDS ORDERED: ACETAMINOPHEN 500 MG TAB PO PRN (14:15)
[2019-05-24 14:33] LABS: ALBUMIN 5.11 GM/DL (3.29-5.55); ALBUMIN % 59.4 % (55.8-66.1); ALPHA-1-GLOBULINS 0.31 GM/DL (0.17-0.41); ALPHA-2-GLOBULINS 1.21 GM/DL (0.42-0.99); ALPHA-2-GLOBULINS % 14.1 % (7.1-11.8); BETA-1-GLOBULINS 0.54 GM/DL (0.28-0.60); BETA-1-GLOBULINS % 6.3 % (4.7-7.2); BETA-2-GLOBULINS 0.45 GM/DL (0.19-0.55); BETA-2-GLOBULINS % 5.2 % (3.2-6.5); GAMMA GLOBULIN % 11.4 % (11.1-18.8)
[2019-05-24 14:34] LABS: ALPHA-1-GLOBULIN % 3.6 % (2.9-4.9); GAMMA GLOBULINS 0.98 GM/DL (0.65-1.58)
[2019-05-24] MEDS: traMADol 50 MG TAB PO PRN ×2 (15:28→23:17)
[2019-05-24 16:00] VITALS: BP 176/92
[2019-05-24] MEDS: WARFARIN SOD 5 MG TAB PO SCH (17:16)
[2019-05-24 20:00] VITALS: BP 146/82
[2019-05-24] MEDS: ATORVASTATIN 20 MG TAB PO SCH (21:12)
[2019-05-24] MEDS: DULoxetine 30 MG CAP (CYMBALTA) PO SCH (21:12)
[2019-05-24] MEDS: TAMSULOSIN 0.4 MG CAP PO SCH (21:13)
[2019-05-25] VITALS (8 sets, daily range): BP systolic 148–180; BP diastolic 76–90
[2019-05-25] MEDS ORDERED: METOCLOPRAMIDE 10 MG TAB PO PRN
[2019-05-25] MEDS ORDERED: ONDANSETRON 4 MG TAB (S0181) PO PRN
[2019-05-25 05:59] LABS: HEMATOCRIT 41.7 % (42.0-52.0); HEMOGLOBIN 13.9 g/dl (13.5-17.5); MEAN CORPUSCULAR HEMOGLOBIN 28.8 pg (27.0-33.0); MEAN CORPUSCULAR HGB CONC 33.3 g/dl (32.0-36.5); MEAN CORPUSCULAR VOLUME 86.5 fl (80.0-96.0); PLATELET COUNT, AUTOMATED 191 10^3/uL (150-450); RED BLOOD COUNT 4.82 10^6/uL (4.30-6.10)
[2019-05-25 06:11] LABS: INR 2.25; PROTHROMBIN TIME 24.7 SECONDS (11.8-14.0)
[2019-05-25 06:28] LABS: BLOOD UREA NITROGEN 12 MG/DL (7-18); CALCIUM LEVEL 8.4 MG/DL (8.5-10.1); CARBON DIOXIDE LEVEL 19 MEQ/L (21-32); CHLORIDE LEVEL 108 MEQ/L (98-107); CREATININE FOR GFR 0.88 MG/DL (0.70-1.30); GLOMERULAR FILTRATION RATE > 60.0 (>56); GLUCOSE, FASTING 210 MG/DL (70-100); POTASSIUM SERUM 4.4 MEQ/L (3.5-5.1); SODIUM LEVEL 136 MEQ/L (136-145)
[2019-05-25] MEDS: NICOTINE 14 MG/24 HR TRANSDERMAL TD SCH (08:42)
[2019-05-25] MEDS: VITAMIN D 1,000 INTERNATIONAL UNITS TABLET PO SCH (08:43)
[2019-05-25] MEDS: lisinopriL 40 MG TAB PO SCH (08:43)
[2019-05-25] MEDS: CARVedilol 12.5 MG TAB PO SCH ×2 (08:43→20:42)
[2019-05-25] MEDS: GABAPENTIN 300 MG CAP PO SCH ×3 (08:43→20:40)
[2019-05-25] MEDS: HumaLOG INSULIN (NovoLOG) PER UNIT SC SCH ×4 (08:43→20:31)
[2019-05-25] MEDS: FOLIC ACID 1 MG TAB PO SCH (08:43)
[2019-05-25] MEDS: ASPIRIN 81 MG ENTERIC TAB PO SCH (08:43)
[2019-05-25] MEDS: **hydrALAZINE** 10 MG TAB PO SCH ×3 (08:44→20:40)
[2019-05-25] MEDS: FAMOTIDINE 20 MG TAB PO SCH ×2 (08:44→20:40)
[2019-05-25] MEDS: CYANOCOBALAMIN 500 MCG TAB PO SCH (08:44)
--- NOTE | 2019-05-25 09:58 | IPN ---
DATE: 05/25/2019 Jagjit feels better today. His headache is almost gone. His blood pressure is a little elevated this morning, but he has not gotten his antihypertensives yet. No chest pain or shortness of breath. Neurologically, he is walking without difficulty in the [place]. No shortness of breath. PHYSICAL EXAM: 162/82 early this morning, 180/76 before morning meds. General Appearance: Alert, conversant, in no distress. Lungs: Clear. Heart: Regular rhythm. Abdomen: Soft. Nontender. No peripheral edema. Neurologic Exam: Nonfocal. LABS: CBC, BMP unremarkable. IMPRESSION: 1. Hypertensive urgency. If his blood pressure comes down after his morning meds I will discharge him on current regimen. 2. Diabetes. Outpatient attention to this advised. His blood sugar is under control but not optimized. 3. Headaches secondary to recurrent head injury, chronic headache syndrome, and he is also on hydralazine which dilate and will probably contribute to this as well. Headache is better today. 4. History of deep vein thrombosis (DVT). His INR is therapeutic on his current dose of warfarin. 5. Benign prostatic hypertrophy (BPH). Continue tamsulosin. 6. History of depression. Stable on current medical regimen.
--- NOTE | 2019-05-25 11:44 | IPN ---
DATE: 05/25/2019 Jagjit' blood pressure did not come down sufficiently to discharge, 164/90 three hours after his morning blood pressure medications. I will add chlorthalidone 25 mg to his regimen, which currently includes hydralazine 20 mg three times a day, carvedilol 25 mg twice a day, Lisinopril 40 mg daily. I am avoiding calcium channel blockers as he has an intolerance to nifedipine, which provoked angina. I have ordered a renal Doppler ultrasound to make sure that we are not dealing with a renal artery stenosis, though I think his blood pressure problems have been long-standing.
[2019-05-25] MEDS: CHLORTHALIDONE 25 MG TAB PO SCH (12:39)
[2019-05-25] MEDS: FIORICET TAB PO PRN (16:16)
[2019-05-25] MEDS: WARFARIN SOD 2.5 MG TAB PO SCH (16:17)
[2019-05-25] MEDS ORDERED: diphenhydrAMINE 50 MG CAP PO PRN (18:00)
[2019-05-25] MEDS: traMADol 50 MG TAB PO PRN (18:43)
[2019-05-25] MEDS: DULoxetine 30 MG CAP (CYMBALTA) PO SCH (20:40)
[2019-05-25] MEDS: ATORVASTATIN 20 MG TAB PO SCH (20:41)
[2019-05-25] MEDS: TAMSULOSIN 0.4 MG CAP PO SCH (20:41)
[2019-05-26] VITALS: BP 125/80
[2019-05-26 04:00] VITALS: BP 158/92
[2019-05-26 06:18] LABS: BLOOD UREA NITROGEN 13 MG/DL (7-18); CALCIUM LEVEL 8.7 MG/DL (8.5-10.1); CARBON DIOXIDE LEVEL 26 MEQ/L (21-32); CHLORIDE LEVEL 105 MEQ/L (98-107); CREATININE FOR GFR 0.95 MG/DL (0.70-1.30); GLOMERULAR FILTRATION RATE > 60.0 (>56); GLUCOSE, FASTING 194 MG/DL (70-100); POTASSIUM SERUM 3.9 MEQ/L (3.5-5.1); SODIUM LEVEL 139 MEQ/L (136-145)
[2019-05-26 07:46] LABS: HEMATOCRIT 41.7 % (42.0-52.0); HEMOGLOBIN 13.9 g/dl (13.5-17.5); MEAN CORPUSCULAR HGB CONC 33.3 g/dl (32.0-36.5); MEAN CORPUSCULAR VOLUME 87.1 fl (80.0-96.0); PLATELET COUNT, AUTOMATED 195 10^3/uL (150-450); RED BLOOD COUNT 4.79 10^6/uL (4.30-6.10); WHITE BLOOD COUNT 7.4 10^3/uL (4.0-10.0)
[2019-05-26 08:00] VITALS: BP 144/88
[2019-05-26 08:32] LABS: INR 1.82; PROTHROMBIN TIME 20.9 SECONDS (11.8-14.0)
--- NOTE | 2019-05-26 09:56 | REP ---
Clinical: Hypertensive emergency Technique: Rosas scale and color Doppler evaluation of the kidneys and renal vasculature using curved array transducer. Findings: The kidneys are essentially normal in contour size and echogenicity and reniform shape without hydronephrosis, nephrolithiasis, cystic or renal mass lesion. Right kidney measures 12.7 x 5.9 x 6.0 cm . Left kidney measures 12.9 x 5.0 x 6.0 cm . Bladder is incompletely distended and grossly normal by current evaluation. Color Doppler evaluation of the renal vasculature demonstrates normal arterial wave patterns, velocities, renal aortic ratios, resistive indices and the acceleration time. No sonographic evidence for renal arterial stenosis noted. Renal vein is patent. Right Kidney: Peak arterial velocity: 126 cm/sec . Renal aortic ratio: 1.2 . Resistive indices: 0.71 - 0.74 . Acceleration times: 0.03 - 0.04 . Left kidney: Peak arterial velocity: 111 cm/sec . Renal aortic ratio: 1.07 . Resistive indices: 0.70 - 0.73 . Acceleration times: 0.03 - 0.06 . Impression: Normal examination. No evidence for renal arterial stenosis. Electronically Signed by Michael Bourgeois MD 05/26/2019 09:46 A
[2019-05-26 10:21] VITALS: BP 150/80
[2019-05-26] MEDS: CARVedilol 12.5 MG TAB PO SCH (10:21)
[2019-05-26] MEDS: GABAPENTIN 300 MG CAP PO SCH (10:22)
[2019-05-26] MEDS: CYANOCOBALAMIN 500 MCG TAB PO SCH (10:22)
[2019-05-26] MEDS: lisinopriL 40 MG TAB PO SCH (10:22)
[2019-05-26] MEDS: ASPIRIN 81 MG ENTERIC TAB PO SCH (10:22)
[2019-05-26] MEDS: **hydrALAZINE** 10 MG TAB PO SCH (10:22)
[2019-05-26] MEDS: VITAMIN D 1,000 INTERNATIONAL UNITS TABLET PO SCH (10:22)
[2019-05-26] MEDS: CHLORTHALIDONE 25 MG TAB PO SCH (10:22)
[2019-05-26] MEDS: FOLIC ACID 1 MG TAB PO SCH (10:22)
[2019-05-26] MEDS: FAMOTIDINE 20 MG TAB PO SCH (10:22)
[2019-05-26] MEDS: HumaLOG INSULIN (NovoLOG) PER UNIT SC SCH ×2 (10:23→12:53)
[2019-05-26] MEDS: NICOTINE 14 MG/24 HR TRANSDERMAL TD SCH (10:23)
--- NOTE | 2019-05-26 11:28 | DS.PDOC ---
Discharge Summary General Date of Admission May 24, 2019 at 14:06 Date of Discharge 05/26/2019 Attending Physician: TERESSA HAYNES MD Discharge Summary PROCEDURES PERFORMED DURING STAY: None ADMITTING DIAGNOSES: 1. Hypertensive urgency DISCHARGE DIAGNOSES: 1. Hypertensive urgency 2. DM 3. BPH 4. Depression 5. GERD 6. History of VTEs on chronic warfarin 7. Chronic migraine headaches 8. Hyperlipidemia 9. Vitamin D deficiency 10. Folate and Vitamin B12 deficiency 11. CAD 12. chronic back pain s/p fusion surgeries 13. History of CVA without lasting chronic deficits COMPLICATIONS/CHIEF COMPLAINT: Hypertensive Urgency. HISTORY OF PRESENT ILLNESS: 59-year-old man with a history of HTN, CAD and chronic migraines who presented to the ED with a headache, nausea and vomiting and found to have elevated blood pressures. HOSPITAL COURSE: In the ED, his SBP was 180-low 200s and reported being unable to take his home BP meds due to N/V and had a sudden onset severe headache, in the setting of a history of migraine headaches. The patient also reports diarrhea. Onset of vomiting was enroute to the hospital, without any blood in his emesis or stools. In the ED, he reported recent uncontrolled hypertension due to being unable to take his medications due to nausea and vomiting, of which he is on lisinopril, hydralazine and coreg at baseline. His initial workup was notable for head CT that was without acute pathology, CT A/P without acute pathology, stable CBC and BMP. He was admitted for hypertensive urgency and ongoing migraine headache that eventually improved with treatment with Fioricet and the rest of his medications were continued per baseline. His hypertension was initially managed with IV medications and he had some worsening on his headaches with hydralazine that improved with time and he was transitioned back to his PO meds with improvement of hypertension. He also had a renal US that was negative for evidence of renal artery stenosis. He is now being discharged home on his baseline HTN medications and will follow up outpatient with his PCP. DISCHARGE MEDICATIONS: Please see below. ALLERGIES: Please see below. PHYSICAL EXAMINATION ON DISCHARGE: VITAL SIGNS: Please see below. General Exam: Alert, Cooperative, NAD Eye Exam: PERRLA, EOMI ENT Exam: Atraumatic, Mucous membr. moist/pink, Nares Patent Neck Exam: Supple, no JVD or noted thyromegaly Chest Exam: Clear to auscultation, Normal air movement Heart Exam: RRR, no mrg Abdomen Exam: Normal bowel sounds, obese, non tender, has umbilical hernia Extremity Exam: Normal pulses, no edema Neuro Exam: Normal Speech, Cranial Nerves 3-12 NL, moves all extremities spontaneously Psych Exam: Mental status NL, Mood NL, Oriented x 3 LABORATORY DATA: Please see below. IMAGING: Non con head CT: No acute intracranial abnormalities CT A/P: 1. No acute abdominopelvic pathology appreciated. 2. Hepatic steatosis. 3. 1.5 cm fat containing periumbilical hernia. Renal U/S with doppler: Normal examination. No evidence for renal arterial stenosis. PROGNOSIS: Good ACTIVITY: As tolerated DIET: Consistent carb and 2g sodium DISCHARGE PLAN: Home with PCP follow up DISPOSITION: Home DISCHARGE INSTRUCTIONS: 1. Please follow up with your PCP within 10d of discharge for follow up in chronic migraine management and hypertension ITEMS TO FOLLOWUP ON ON OUTPATIENT: 1. Migraine headaches 2. Hypertension DISCHARGE CONDITION: Stable TIME SPENT ON DISCHARGE: 42 minutes. Vital Signs/I&Os Vital Signs Date Time Temp Pulse Resp B/P (MAP) Pulse Ox O2 Delivery O2 Flow Rate FiO2 05/26/19 10:21 77 150/80 05/26/19 08:00 96.8 20 96 Room Air I&O- Last 24 Hours up to 6 AM 05/26/19 05:59 Intake Total 1349 ml Output Total 0 ml Balance 1349 ml Laboratory Data Labs 24H Laboratory Tests 2 05/25/19 11:25: Bedside Glucose (Misc Panel) 189H 05/25/19 17:09: Bedside Glucose (Misc Panel) 193H 05/25/19 20:15: Bedside Glucose (Misc Panel) 191H 05/26/19 05:36: Nucleated Red Blood Cells % (auto) 0.0, Prothrombin Time 20.9H, Prothromb Time International Ratio 1.82, Anion Gap 8, Glomerular Filtration Rate > 60.0, Calcium Level 8.7 CBC/BMP Laboratory Tests 05/26/19 05:36 FSBS Laboratory Tests Test 05/25/19 11:25 05/25/19 17:09 05/25/19 20:15 Range/Units Bedside Glucose (Misc Panel) 189 193 191 70-105 MG/DL Discharge Medications Scheduled Aripiprazole (Aripiprazole) 10 Mg Tablet, 5 MG PO QHS, (Reported) Aspirin (Aspir 81) 81 Mg Tablet.dr, 81 MG PO DAILY, (Reported) Atorvastatin Calcium (Atorvastatin Calcium) 80 Mg Tablet, 40 MG PO QHS, (Reported) Carvedilol (Carvedilol) 12.5 Mg Tablet, 12.5 MG PO BID, (Reported) Cholecalciferol (Vitamin D3) (Vitamin D3) 1,000 Unit Tablet, 1,000 UNIT PO DAILY, (Reported) Cyanocobalamin (Vitamin B-12) (Vitamin B-12) 500 Mcg Tablet, 500 MCG PO DAILY, (Reported) Duloxetine Hcl (Duloxetine HCl) 60 Mg Capsule.dr, 60 MG PO QHS, (Reported) Famotidine (Famotidine) 20 Mg Tablet, 20 MG PO DAILY, (Reported) Folic Acid (Folic Acid) 1 Mg Tablet, 1 MG PO DAILY, (Reported) Gabapentin (Neurontin) 600 Mg Tablet, 600 MG PO TID, (Reported) Hydralazine HCl (Hydralazine HCl) 10 Mg Tablet, 10 MG PO TID, (Reported) Lisinopril (Lisinopril) 40 Mg Tablet, 40 MG PO DAILY, (Reported) Metformin HCl (Metformin HCl) 1,000 Mg Tablet, 1,000 MG PO BID, (Reported) Tamsulosin HCl (Flomax) 0.4 Mg Capsule, 0.4 MG PO QHS, (Reported) Warfarin Sodium (Warfarin Sodium) 5 Mg Tablet, 5 MG PO 3XW, (Reported) FRIDAY, FRIDAY, FRIDAY Warfarin Sodium (Warfarin Sodium) 5 Mg Tablet, 2.5 MG PO 4XWK, (Reported) FRIDAY, FRIDAY, FRIDAY, FRIDAY Scheduled PRN Acetaminophen (Acetaminophen) 500 Mg Tablet, 1,000 MG PO Q6H PRN for PAIN, (Reported) Nitroglycerin (Nitroglycerin) 0.4 Mg Tab.subl, 0.4 MG SL Q5MP PRN for CHEST PAIN, (Reported) 1st sign of attack; may repeat every 5 mins; if pain persists after 3 in 15 min, medical attention is recommended Allergies Coded Allergies: nifedipine (Verified Allergy, Mild, angina, 01/09/19) prochlorperazine (Verified Allergy, Mild, vomiting, 01/09/19) cyclobenzaprine (Verified Adverse Reaction, Mild, anxiety, 01/09/19) TERESSA HAYNES MD May 26, 2019 11:28
[2019-05-26] MEDS ORDERED: BUTA-198 PO (11:32)
[2019-05-26 12:00] VITALS: BP 155/55
[2019-05-26] MEDS ORDERED: CARV25TA PO (12:42)
[2019-05-26] MEDS ORDERED: HYDR10TAB PO (12:42)
[2019-05-26] MEDS ORDERED: CHLO25TA PO (12:42)
== END 2019-05-26 13:36 | disposition home or self-care (01) | DRG 305 ==
LOC: M ED 08:47 → M ED INP 08:48 → M PCU 14:54 → OBSVTOIN 05-24 14:06
PROVIDERS: ADMIT Internal Medicine; ATTEND Internal Medicine
DX: I16.0 Hypertensive urgency (principal); I42.1 Obstructive hypertrophic cardiomyopathy; I25.10 Atherosclerotic heart disease of native coronary artery without angina pectoris; E11.9 Type 2 diabetes mellitus without complications; I10 Essential (primary) hypertension; I48.0 Paroxysmal atrial fibrillation; E53.8 Deficiency of other specified B group vitamins; N40.0 Benign prostatic hyperplasia without lower urinary tract symptoms; G43.709 Chronic migraine without aura, not intractable, without status migrainosus; F17.200 Nicotine dependence, unspecified, uncomplicated; E55.9 Vitamin D deficiency, unspecified; F32.9 Major depressive disorder, single episode, unspecified; F41.9 Anxiety disorder, unspecified; Z86.73 Personal history of transient ischemic attack (TIA), and cerebral infarction without residual deficits; Z98.1 Arthrodesis status; Z79.84 Long term (current) use of oral hypoglycemic drugs; Z79.01 Long term (current) use of anticoagulants; Z86.711 Personal history of pulmonary embolism; Z95.810 Presence of automatic (implantable) cardiac defibrillator; Z86.718 Personal history of other venous thrombosis and embolism; Z88.8 Allergy status to other drugs, medicaments and biological substances; Z79.82 Long term (current) use of aspirin

== ENCOUNTER 2020-10-23 11:48 | Inpatient (IN) | payer OTHER, MEDICARE ==
[~2020-10-23] VITALS: Ht 182.9 cm; Wt 126.9 kg
[~2020-10-23 11:48] MED LIST changes: -AMLO10TA5 PO; +AMLO1TAB25 PO; -ASPI81TA85 PO; +ASPI81TA86 PO; +BUTA-198 PO; +CARV12.5 PO; +CHLO25TA PO; +COLC0.6T47 PO; -COLC1TAB13 PO; +DULO1CAP6 PO; +FAMO20TA PO; -LISI40TA PO; +LISI40TA4 PO; +MELA3TAB30 PO; -MELA3TAB41 PO; +MIRT-62 PO; -REME15TA PO; +VITA100066 PO
[2020-10-23] MEDS ORDERED: ONDANSETRON 4MG/2ML VIAL IV ONE ×2 (12:20→13:50)
[2020-10-23] MEDS ORDERED: NS 1,000 ML IV SCH (12:20)
[2020-10-23] MEDS: MORPHINE 4 MG/ML 1ML VIAL/SYRINGE (J2270) IV PRN ×2 (12:26→18:33)
[2020-10-23 12:31] LABS: BASO % 0.4 % (0.0-1.0); EOS # 0.1 10^3/uL (0.0-0.5); HEMATOCRIT 44.8 % (42.0-52.0); HEMOGLOBIN 15.7 g/dl (13.5-17.5); LYMPH # 2.2 10^3/uL (1.5-5.0); LYMPH % 27.4 % (24.0-44.0); MEAN CORPUSCULAR VOLUME 82.8 fl (80.0-96.0); MONO # 0.6 10^3/uL (0.0-0.8); MONO % 6.9 % (2.0-8.0); NEUTROPHILS # 5.2 10^3/uL (1.5-8.5); NEUTROPHILS % 63.8 % (36.0-66.0); PLATELET COUNT, AUTOMATED 231 10^3/uL (150-450); RED BLOOD COUNT 5.41 10^6/uL (4.30-6.10); WHITE BLOOD COUNT 8.1 10^3/uL (4.0-10.0)
[2020-10-23] MEDS ORDERED: ISOVUE-370 76% 100ML VIAL As Ordered ONE (12:34)
[2020-10-23 13:05] LABS: ALBUMIN 4.6 GM/DL (3.2-5.2); ALT/SGPT 41 U/L (12-78); BILIRUBIN,DIRECT 0.3 MG/DL (0.0-0.2); BILIRUBIN,TOTAL 0.9 MG/DL (0.2-1.0); LIPASE 67 U/L (73-393); TOTAL PROTEIN 7.9 GM/DL (6.4-8.2)
--- NOTE | 2020-10-23 13:15 | REP ---
INDICATION: rlq pain. COMPARISON: 05/22/2019 TECHNIQUE: Axial contrast-enhanced images from the lung bases to the pubic symphysis using 100 cc Isovue 370 intravenous contrast material. Coronal and sagittal reformations obtained. This CT examination was performed using the following dose reduction techniques: Automated exposure control, adjustment of mA and/or kv according to the patient's size, and the use of iterative reconstruction technique. FINDINGS: Liver, spleen, pancreas, gallbladder, bilateral adrenal glands and kidneys are normal. The enteric system includes small hiatal hernia. No evidence for bowel obstruction or acute inflammatory process. Normal terminal ileum and appendix identified in the right lower quadrant. Scattered sigmoid diverticula noted without acute diverticulitis.. Pelvis demonstrates prostatomegaly with mass effect on the base of the bladder. No ascites. No free air. No intraperitoneal or retroperitoneal adenopathy. Abdominal aorta and vasculature appear normal. Musculoskeletal structures are intact and without acute osseous abnormality. IMPRESSION: No acute abdominopelvic pathology appreciated. <Electronically signed by Michael Bourgeois > 10/23/20 [id number]
[2020-10-23 13:34] LABS: CPK CREATINE PHOSPHOKINASE 139 U/L (39-308); MB/CK RELATIVE INDEX 0.72 (< OR =4); TROPONIN I < 0.02 NG/ML (< 0.10)
[2020-10-23] MEDS ORDERED: PROMETHAZINE INJ 25 MG/ML VIAL (J2550) IV ONE (14:10)
[2020-10-23 14:37] LABS: INR 1.04; PROTHROMBIN TIME 13.8 SECONDS (12.5-14.3)
[2020-10-23 16:05] LABS: AMPHETAMINES LEVEL URINE NEGATIVE (NEGATIVE); BARBITURATES URINE NEGATIVE (NEGATIVE); BENZODIAZEPINES URINE NEGATIVE (NEGATIVE); CANNABINOIDS URINE NEGATIVE (NEGATIVE); COCAINE METABOLITE URINE NEGATIVE (NEGATIVE); METHADONE URINE NEGATIVE (NEGATIVE); OPIATES URINE POSITIVE (NEGATIVE); PHENCYCLIDINE URINE NEGATIVE (NEGATIVE)
[2020-10-23] MEDS ORDERED: MAALOX 30 ML SUSP *UDC PO PRN (16:15)
[2020-10-23 16:20] LABS: RSV AMPLIFICATION NEGATIVE (NEGATIVE)
[2020-10-23] MEDS ORDERED: GLUCOSE 4GM CHEW TABLET PO PRN (16:20)
[2020-10-23] MEDS ORDERED: GLUCAGON INJ 1MG VIAL SC PRN (16:20)
[2020-10-23] MEDS ORDERED: DEXTROSE 50% 50 ML SYRINGE IV PRN (16:20)
[2020-10-23] MEDS ORDERED: D31000TA2 PO (16:34)
[2020-10-23] MEDS ORDERED: FISH1000 PO (16:34)
[2020-10-23] MEDS ORDERED: CARV25TA PO (16:34)
[2020-10-23] MEDS ORDERED: AMLO1TAB24 PO (16:34)
[2020-10-23] MEDS ORDERED: ELIQ5TAB PO (16:34)
[2020-10-23] MEDS ORDERED: VOLT1GEL15 TOP (16:34)
[2020-10-23] MEDS ORDERED: ASPI81CH33 PO (16:34)
[2020-10-23] MEDS ORDERED: NITROGLYCERIN 0.4 MG SUBL TABLET SL PRN (17:05)
--- NOTE | 2020-10-23 17:13 | HPEPDOC ---
General Date of Admission October 23, 2020 at 16:14 Date of Service: October 23, 2020 Chief Complaint The patient is a 60-year-old male admitted with a reason for visit of Abdominal Pain, Diarrhea, Nausea & Vomiting. Source: Patient History of Present Illness Mr. Ibarra is a 60 year old male with CAD s/p stents, NIDDM, and history of concussions who presents with intractable nausea/vomiting, abdominal pain, and diarrhea. Symptoms initially started 3 weeks ago. Denies any history of travel, drinking well water or stream water, eating anything different or new medications/supplements/street drugs. He was on antibiotics about 3 to 4 months ago for infected pacemaker/AICD and completed antibiotics about 2 months ago. Then 3 weeks ago, he had intermittent nausea/vomiting, abdominal pain, and diarrhea. Abdominal pain is mostly in the epigastric area and RLQ. Describes it as a throbbing and burning pain. He [facility] and Pepto-Bismol without any improvement. He could not tell me how long it lasted, but he said he would have them about 3 to 4 times a week. In the past 3 days, his symptoms had acutely worsened to the point he could not tolerate oral foods without vomiting. He has not taken his blood thinner in 3 days because he has trouble keeping food down. His diarrhea is watery and he has about 3 to 4 episodes a day. Patient came to the ED for evaluation. CBC and CMP are largely unremarkable except for hypokalemia and elevated glucose. Lipase is low. Lactic acid <2. CT abd/pelvis was negative. UTox negative for marijuana. Positive for opioids and he did receive morphine in the ED. Patient will be placed in observation for intractable nausea/vomiting/diarrhea and abdominal pain. Home Medications Scheduled Aripiprazole (Aripiprazole) 10 Mg Tablet, 5 MG PO QHS, (Reported) Aspirin (Aspir 81) 81 Mg Tablet.dr, 81 MG PO DAILY, (Reported) Atorvastatin Calcium (Atorvastatin Calcium) 80 Mg Tablet, 40 MG PO QHS, (Repo rted) Carvedilol (Carvedilol) 25 Mg Tablet, 1 TAB PO BID Chlorthalidone (Chlorthalidone) 25 Mg Tablet, 25 MG PO DAILY Cholecalciferol (Vitamin D3) (Vitamin D3) 1,000 Unit Tablet, 1,000 UNIT PO DAILY, (Reported) Cyanocobalamin (Vitamin B-12) (Vitamin B-12) 500 Mcg Tablet, 500 MCG PO DAILY, (Reported) Duloxetine Hcl (Duloxetine HCl) 60 Mg Capsule.dr, 60 MG PO QHS, (Reported) Famotidine (Famotidine) 20 Mg Tablet, 20 MG PO DAILY, (Reported) Folic Acid (Folic Acid) 1 Mg Tablet, 1 MG PO DAILY, (Reported) Gabapentin (Neurontin) 600 Mg Tablet, 600 MG PO TID, (Reported) Hydralazine HCl (Hydralazine HCl) 10 Mg Tablet, 20 MG PO TID Lisinopril (Lisinopril) 40 Mg Tablet, 40 MG PO DAILY, (Reported) Metformin HCl (Metformin HCl) 1,000 Mg Tablet, 1,000 MG PO BID, (Reported) Tamsulosin HCl (Flomax) 0.4 Mg Capsule, 0.4 MG PO QHS, (Reported) Warfarin Sodium (Warfarin Sodium) 5 Mg Tablet, 5 MG PO 3XW, (Reported) FRIDAY, FRIDAY, FRIDAY Warfarin Sodium (Warfarin Sodium) 5 Mg Tablet, 2.5 MG PO 4XWK, (Reported) FRIDAY, FRIDAY, FRIDAY, FRIDAY Scheduled PRN Acetaminophen (Acetaminophen) 500 Mg Tablet, 1,000 MG PO Q6H PRN for PAIN, (R eported) Butalb/Acetaminophen/Caffeine (Ymphoc-Gbfotfzx-Qgnw 50-325-40) 1 Each Tablet, 2 EA PO Q6HP PRN for HEADACHE Nitroglycerin (Nitroglycerin) 0.4 Mg Tab.subl, 0.4 MG SL Q5MP PRN for CHEST PAIN, (Reported) 1st sign of attack; may repeat every 5 mins; if pain persists after 3 in 15 min, medical attention is recommended Allergies Coded Allergies: nifedipine (Verified Allergy, Mild, angina, 01/09/19) prochlorperazine (Verified Allergy, Mild, vomiting, 01/09/19) cyclobenzaprine (Verified Adverse Reaction, Mild, anxiety, 01/09/19) Past Medical History Medical History 1. 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 CAD s/p stent 3. NIDDM 4. Essential hypertension 5. CHF (Echocardiogram 12/2018, demonstrates EF 65 to 70%, grade 1 diastolic dysfunction, possible obstructive cardiomyopathy) 6. Multiple concussions from playing football 7. BPH 8. Dyslipidemia 9. Depression with anxiety features 10. CVA in 2015 Surgical History 1. Knee surgeries 2. Cervical and lumbar fusion 3. Cardiac stent placement 4. Pacemaker/AICD insertion 5. 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 IVC filter placement Family History Father: History of heart disease Mother: History of breast cancer and dementia Social History * Smoker: current smoker (smoked for 4 years, 1ppd) Alcohol: occationally (Has not drank alcohol in the past 3 weeks) Drugs: denies A-FIB/CHADSVASC A-FIB History Current/History of A-Fib/PAF?: No Review of Systems Constitutional: Denies: Chills, Fever Eyes: Denies: Vision change ENT: Reports: Head Aches (intermittent and chronic from concussions); Denies: Sore Throat Skin: Denies: Rash Pulmonary: Denies: Dyspnea, Cough Cardiovascular: Denies: Chest Pain Gastrointestinal: Reports: Nausea, Vomiting, Abdominal Pain, Diarrhea; Denies: Melena, Hematochezia Genitourinary: Denies: Dysuria Hematologic: Denies: Bruising Neurological: Denies: Numbness Physical Examination General Exam: Positive: Alert, Cooperative Eye Exam: Positive: EOMI; Negative: Sclera icteric ENT Exam: Positive: Atraumatic Neck Exam: Positive: Supple Chest Exam: Positive: Clear to auscultation; Negative: Rales, Rhonchi, Wheezing Heart Exam: Positive: Rate Normal, Regular Rhythm Abdomen Exam: Positive: BS Hypoactive, Soft, Tenderness Extremity Exam: Negative: Edema Neuro Exam: Positive: Normal Speech Psych Exam: Positive: Mental status NL, Mood NL Vital Signs Vital Signs Date Time Temp Pulse Resp B/P (MAP) Pulse Ox O2 Delivery O2 Flow Rate FiO2 10/23/20 15:48 67 18 10/23/20 15:45 163/76 (105) 10/23/20 11:48 97.2 98 Room Air Laboratory Data Labs 24H Laboratory Tests 2 10/23/20 12:19: Immature Granulocyte % (Auto) 0.5, Neutrophils (%) (Auto) 63.8, Lymphocytes (%) (Auto) 27.4, Monocytes (%) (Auto) 6.9, Eosinophils (%) (Auto) 1.0, Basophils (%) (Auto) 0.4, Neutrophils # (Auto) 5.2, Lymphocytes # (Auto) 2.2, Monocytes # (Auto) 0.6, Eosinophils # (Auto) 0.1, Basophils # (Auto) 0.0, Nucleated Red Blood Cells % (auto) 0.0, Total Bilirubin 0.9, Direct Bilirubin 0.3H, Aspartate Amino Transf (AST/SGOT) 29, Alanine Aminotransferase (ALT/SGPT) 41, Alkaline Phosphatase 102, Total Creatine Kinase 139, Creatine Kinase MB 1.0, Creatine Kinase MB Relative Index 0.72, Troponin I < 0.02, Total Protein 7.9, Albumin 4.6, Albumin/Globulin Ratio 1.4, Lipase 67L 10/23/20 12:25: POC Glucose (Misc Panel) 290H, POC Sodium (Misc Panel) 143, POC Potassium (Misc Panel) 3.4L, POC Chloride (Misc Panel) 103, POC Total CO2 (Misc Panel) 28.0H, POC Blood Urea Nitrogen (Misc Panel 12, POC Ionized Calcium (Misc Panel) 5.0, POC Creatinine (Misc Panel) 0.9, POC Hematocrit (Misc Panel) 44.0 10/23/20 14:11: Prothrombin Time 13.8, Prothromb Time International Ratio 1.04, Lactic Acid Level 1.5 10/23/20 15:28: Urine Opiates Screen POSITIVEH, Urine Methadone Screen NEGATIVE, Urine Barbiturates Screen NEGATIVE, Urine Phencyclidine Screen NEGATIVE, Urine Amphetamines Screen NEGATIVE, Urine Benzodiazepines Screen NEGATIVE, Urine Cocaine Metabolite Screen NEGATIVE, Urine Cannabinoids Screen NEGATIVE 10/23/20 15:34: Coronavirus (COVID-19)(PCR) NEGATIVE, Influenza Type A (RT-PCR) NEGATIVE, Influenza Type B (RT-PCR) NEGATIVE, Respiratory Syncytial Virus (PCR) NEGATIVE CBC/BMP Laboratory Tests 10/23/20 12:19 Assessment/Plan Mr. Ibarra is a 60 year old male with CAD s/p stents, NIDDM, and history of concussions who presents with intractable nausea/vomiting, abdominal pain, and diarrhea. Unclear etiology to his GI symptoms, although patient is on metformin which can cause GI upset, nausea, and diarrhea. No imaging findings and a non- elevated lactic acid. Lipase low as well. Will check a GI panel for other possible etiologies. Otherwise, will put patient on a clear liquid diet, start Carafate and Protonix. Plan / VTE VTE Prophylaxis Ordered?: Yes Plan Plan 1. Intractable nausea/vomiting/diarrhea with abdominal pain and tenderness -Unclear etiology. CT abd/pelvis with IV contrast neg, LA normal, lipase normal, and no leukocytosis -Order GI panel -Supportive care, clear liquid diet -Add Carafate and Protonix to patient's famotidine -Zofran PRN for nausea -Acetaminophen PRN for pain 2. CAD s/p stents -No active chest pain -Continue aspirin, atorvastatin, carvedilol, and lisinopril -Continue PRN sublingual nitroglycerin 3. NIDDM -Hold metformin -Start sliding scale insulin -On clear liquid diet at the time being 4. Hypertension -Continue carvedilol and lisinopril 5. BPH -Continue Tamsulosin 6. History of PE and DVT -Continue apixaban 7. DVT ppx -On apixaban Disposition: Pending improvement in N/V/D and abdominal pain. LEEANN HENRIQUEZ DO October 23, 2020 17:13
[2020-10-23 17:14] LABS: MAGNESIUM LEVEL 1.4 MG/DL (1.8-2.4)
[2020-10-23 17:44] VITALS: BP 142/84
[2020-10-23] MEDS: SUCRALFATE SUSP 1GM/10ML UD PO SCH ×2 (18:14→20:10)
[2020-10-23] MEDS: HumaLOG INSULIN (NovoLOG) PER UNIT SC SCH ×2 (18:14→20:36)
[2020-10-23] MEDS: ONDANSETRON 4MG/2ML VIAL IV SCH ×2 (18:14→21:34)
[2020-10-23] MEDS: KCL 20MEQ in NS 1000ML 1,000 ML IV SCH (18:15)
--- NOTE | 2020-10-23 18:23 | ECGEPIP ---
[facility] - ED Test Date: 2020-10-23 Pat Name: CHAPO VALDIVIA Department: Room: - Gender: Male Marketing Communications Assistant: IVANNA : 1960 Requested By: Lizzie Gottlieb Order Number: [id number] Reading MD: Lizzie Gottlieb Measurements Intervals Avinger Rate: 84 P: 35 IA: 166 QRS: -21 QRSD: 92 T: 119 QT: 380 QTc: 449 Interpretive Statements Normal sinus rhythm Inferior infarct , age undetermined Anteroseptal infarct , age undetermined T wave abnormality, consider lateral ischemia, new 05/22/19, clinical correlation decreased rate 05/22/19 Electronically Signed on 10-23-2020 18:23:26 EDT by Lzizie Gottlieb
[2020-10-23] MEDS: MAG SULF 1GM/100ML (MAG RUN) 1 GM in IV 1 EA IV SCH ×2 (19:27→20:40)
[2020-10-23] MEDS: FAMOTIDINE 20 MG TAB PO SCH (20:10)
[2020-10-23] MEDS: APIXABAN 5 MG TAB (ELIQUIS) PO SCH (20:10)
[2020-10-23] MEDS: GABAPENTIN 300 MG CAP PO SCH (20:11)
[2020-10-23] MEDS: PANTOPRAZOLE 40MG TAB (PROTONIX) PO SCH (20:11)
[2020-10-23] MEDS: ACETAMINOPHEN TAB 650MG DOSE (2X325MG) PO PRN (20:11)
[2020-10-23] MEDS: TAMSULOSIN 0.4 MG CAP PO SCH (20:11)
[2020-10-23] MEDS: CARVedilol 12.5 MG TAB PO SCH (20:14)
[2020-10-23] MEDS: KETOROLAC 30 MG/ML 1ML VIAL IV PRN (21:34)
[2020-10-23 22:00] VITALS: BP 153/77
[2020-10-24] MEDS: ONDANSETRON 4MG/2ML VIAL IV SCH ×6 (02:00→21:17)
[2020-10-24] MEDS: KCL 20MEQ in NS 1000ML 1,000 ML IV SCH ×3 (03:35→23:16)
[2020-10-24] MEDS: KETOROLAC 30 MG/ML 1ML VIAL IV PRN ×2 (03:39→09:40)
[2020-10-24 06:00] VITALS: BP 143/85
[2020-10-24 06:34] LABS: HEMATOCRIT 38.8 % (42.0-52.0); MEAN CORPUSCULAR VOLUME 85.3 fl (80.0-96.0); PLATELET COUNT, AUTOMATED 160 10^3/uL (150-450); RED BLOOD COUNT 4.55 10^6/uL (4.30-6.10); WHITE BLOOD COUNT 4.7 10^3/uL (4.0-10.0)
[2020-10-24 06:45] LABS: HEMOGLOBIN 13.2 g/dl (13.5-17.5)
[2020-10-24 07:03] LABS: ALBUMIN 3.5 GM/DL (3.2-5.2); ALT/SGPT 50 U/L (12-78); BILIRUBIN,TOTAL 0.7 MG/DL (0.2-1.0); BLOOD UREA NITROGEN 9 MG/DL (7-18); CALCIUM LEVEL 8.8 MG/DL (8.5-10.1); CARBON DIOXIDE LEVEL 28 MEQ/L (21-32); CHLORIDE LEVEL 110 MEQ/L (98-107); CREATININE FOR GFR 0.95 MG/DL (0.70-1.30); GLOMERULAR FILTRATION RATE > 60.0 (>56); GLUCOSE, FASTING 200 MG/DL (70-100); POTASSIUM SERUM 3.4 MEQ/L (3.5-5.1); SODIUM LEVEL 144 MEQ/L (136-145); TOTAL PROTEIN 6.1 GM/DL (6.4-8.2)
[2020-10-24] MEDS ORDERED: POTASSIUM CHLORIDE 10% LIQ 20 MEQ/15 ML UDC PO ONE (08:00)
[2020-10-24 08:08] LABS: MAGNESIUM LEVEL 1.4 MG/DL (1.8-2.4)
[2020-10-24] MEDS: SUCRALFATE SUSP 1GM/10ML UD PO SCH ×4 (08:12→21:16)
[2020-10-24] MEDS: ATORVASTATIN 20 MG TAB PO SCH (08:12)
[2020-10-24] MEDS: FAMOTIDINE 20 MG TAB PO SCH ×2 (08:13→21:09)
[2020-10-24] MEDS: CYANOCOBALAMIN 500 MCG TAB PO SCH (08:13)
[2020-10-24] MEDS: GABAPENTIN 300 MG CAP PO SCH ×3 (08:13→21:09)
[2020-10-24] MEDS: CARVedilol 12.5 MG TAB PO SCH ×2 (08:13→21:17)
[2020-10-24] MEDS: APIXABAN 5 MG TAB (ELIQUIS) PO SCH ×2 (08:13→21:09)
[2020-10-24] MEDS: lisinopriL 40 MG TAB PO SCH (08:13)
[2020-10-24] MEDS: amLODIPine 5 MG TAB PO SCH (08:14)
[2020-10-24] MEDS: ASPIRIN 81 MG CHEW TABLET PO SCH (08:14)
[2020-10-24] MEDS: FOLIC ACID 1 MG TAB PO SCH (08:14)
[2020-10-24] MEDS: HumaLOG INSULIN (NovoLOG) PER UNIT SC SCH ×4 (08:14→21:00)
[2020-10-24] MEDS: VITAMIN D 1,000 INTERNATIONAL UNITS TABLET PO SCH (08:14)
[2020-10-24] MEDS: ACETAMINOPHEN TAB 650MG DOSE (2X325MG) PO PRN ×2 (08:22→21:11)
[2020-10-24] MEDS ORDERED: ENOXAPARIN 40MG/0.4ML SYRINGE (J1650 PER 10MG) SC SCH (09:00)
--- NOTE | 2020-10-24 09:32 | IPNPDOC ---
Subjective Date Seen The patient was seen on 10/24/20. Subjective Chief Complaint/HPI Mr. Ibarra is a 60 year old male with CAD s/p stents, NIDDM, and history of concussions who presents with intractable nausea/vomiting, abdominal pain, and diarrhea. This morning, his nausea and diarrhea improved, but he still has abdominal pain. He was not able to tolerate much of his clear liquid diet. Otherwise, denies chest pain or dyspnea. Objective Physical Examination General Exam: Positive: Alert, Cooperative Eye Exam: Positive: EOMI; Negative: Sclera icteric ENT Exam: Positive: Atraumatic Neck Exam: Positive: Supple Chest Exam: Positive: Clear to auscultation; Negative: Rales, Rhonchi, Wheezing Heart Exam: Positive: Rate Normal, Regular Rhythm Abdomen Exam: Positive: Normal bowel sounds, Soft, Tenderness Extremity Exam: Negative: Edema Neuro Exam: Positive: Normal Speech Psych Exam: Positive: Mental status NL, Mood NL Assessment /Plan Assessment ellen Ibarra is a 60 year old male with CAD s/p stents, NIDDM, and history of concussions who presents with intractable nausea/vomiting, abdominal pain, and diarrhea. Unclear etiology to his GI symptoms, although patient is on metformin which can cause GI upset, nausea, and diarrhea. No imaging findings and a non- elevated lactic acid. Lipase low as well. Will check a GI panel for other possible etiologies. Otherwise, will put patient on a clear liquid diet, start Carafate and Protonix. Will order an US abd, for pain in the RUQ and periumbilical. He may have gallstones although this was not seen on imaging. Plan/VTE VTE Prophylaxis Ordered?: Yes Plan 1. Intractable nausea/vomiting/diarrhea with abdominal pain and tenderness -Unclear etiology. CT abd/pelvis with IV contrast neg, LA normal, lipase normal, and no leukocytosis -Order GI panel -Supportive care, clear liquid diet -Add Carafate and Protonix to patient's famotidine -Zofran PRN for nausea -Acetaminophen PRN for pain -Nausea/vomiting/diarrhea improved -Added on US abdomen for RUQ and periumbilical pain 2. CAD s/p stents -No active chest pain -Continue aspirin, atorvastatin, carvedilol, and lisinopril -Continue PRN sublingual nitroglycerin 3. NIDDM -Hold metformin -Start sliding scale insulin -On clear liquid diet at the time being 4. Hypertension -Continue carvedilol and lisinopril 5. BPH -Continue Tamsulosin 6. History of PE and DVT -Continue apixaban 7. DVT ppx -On apixaban Disposition: N/V/D improved. Pending improvement in abdominal pain. VS, I&O, 24H, Fishbone Vital Signs/I&O Vital Signs Date Time Temp Pulse Resp B/P (MAP) Pulse Ox O2 Delivery O2 Flow Rate FiO2 10/24/20 08:13 68 150/88 10/24/20 06:00 97.3 17 96 Room Air I&O- Last 24 Hours up to 6 AM 10/24/20 06:00 Intake Total 2700 ml Output Total 450 ml Balance 2250 ml Laboratory Data 24H LABS Laboratory Tests 2 10/23/20 12:19: Immature Granulocyte % (Auto) 0.5, Neutrophils (%) (Auto) 63.8, Lymphocytes (%) (Auto) 27.4, Monocytes (%) (Auto) 6.9, Eosinophils (%) (Auto) 1.0, Basophils (%) (Auto) 0.4, Neutrophils # (Auto) 5.2, Lymphocytes # (Auto) 2.2, Monocytes # (Auto) 0.6, Eosinophils # (Auto) 0.1, Basophils # (Auto) 0.0, Nucleated Red Blood Cells % (auto) 0.0, Magnesium Level 1.4L, Total Bilirubin 0.9, Direct Bilirubin 0.3H, Aspartate Amino Transf (AST/SGOT) 29, Alanine Aminotransferase (ALT/SGPT) 41, Alkaline Phosphatase 102, Total Creatine Kinase 139, Creatine Kinase MB 1.0, Creatine Kinase MB Relative Index 0.72, Troponin I < 0.02, Total Protein 7.9, Albumin 4.6, Albumin/Globulin Ratio 1.4, Lipase 67L 10/23/20 12:25: POC Glucose (Misc Panel) 290H, POC Sodium (Misc Panel) 143, POC Potassium (Misc Panel) 3.4L, POC Chloride (Misc Panel) 103, POC Total CO2 (Misc Panel) 28.0H, POC Blood Urea Nitrogen (Misc Panel 12, POC Ionized Calcium (Misc Panel) 5.0, POC Creatinine (Misc Panel) 0.9, POC Hematocrit (Misc Panel) 44.0 10/23/20 14:11: Prothrombin Time 13.8, Prothromb Time International Ratio 1.04, Lactic Acid Level 1.5 10/23/20 15:28: Urine Opiates Screen POSITIVEH, Urine Methadone Screen NEGATIVE, Urine Barbiturates Screen NEGATIVE, Urine Phencyclidine Screen NEGATIVE, Urine Amphetamines Screen NEGATIVE, Urine Benzodiazepines Screen NEGATIVE, Urine Cocaine Metabolite Screen NEGATIVE, Urine Cannabinoids Screen NEGATIVE 10/23/20 15:34: Coronavirus (COVID-19)(PCR) NEGATIVE, Influenza Type A (RT-PCR) NEGATIVE, Influenza Type B (RT-PCR) NEGATIVE, Respiratory Syncytial Virus (PCR) NEGATIVE 10/23/20 17:46: Bedside Glucose (Misc Panel) 173H 10/23/20 17:56: Troponin I < 0.02 10/23/20 20:20: Bedside Glucose (Misc Panel) 187H 10/24/20 06:01: Nucleated Red Blood Cells % (auto) 0.0, Anion Gap 6L, Glomerular Filtration Rate > 60.0, Calcium Level 8.8, Magnesium Level 1.4L, Total Bilirubin 0.7, Aspartate Amino Transf (AST/SGOT) 42H, Alanine Aminotransferase (ALT/SGPT) 50, Alkaline Phosphatase 66, Total Protein 6.1#L, Albumin 3.5#, Albumin/Globulin Ratio 1.3 CBC/BMP Laboratory Tests 10/23/20 12:19 10/24/20 06:01 LEEANN HENRIQUEZ 1, 2021 09:32
[2020-10-24] MEDS: MAG SULF 1GM/100ML (MAG RUN) 1 GM in IV 1 EA IV SCH ×4 (09:39→13:13)
[2020-10-24] MEDS: NORCO, ANEXSIA 5/325MG TABLET (HYDROcodone/ACETAMINOPHEN) PO PRN ×2 (12:04→18:36)
[2020-10-24 14:00] VITALS: BP 143/84
--- NOTE | 2020-10-24 17:36 | REP ---
INDICATION: RUQ and periumbilical pain COMPARISON: CT dated 10/23/2020 TECHNIQUE: Real time B-mode butler scale ultrasound examination using curved array transducer. FINDINGS: Liver demonstrates fatty infiltration and is upper limits of normal in size without focal hepatic lesion identified. The spleen, and visualized pancreas are normal in contour, size, echogenicity, and overall appearance. No focal splenic or pancreatic lesions are identified. Gallbladder is normal without gallstones, wall thickening, or pericholecystic fluid. No biliary ductal dilatation is appreciated and the common bile duct measures 4 mm diameter. The bilateral kidneys are normal in rate form shape without hydronephrosis or obvious abnormality. Right kidney measures 12.3 x 6.2 x 6.1 cm. Left kidney measures 11.9 x 6.3 x 6.9 cm. No ascites identified. IMPRESSION: 1. Hepatosteatosis. <Electronically signed by Michael Bourgeois > 10/24/20 [id number]
[2020-10-24] MEDS: PANTOPRAZOLE 40MG TAB (PROTONIX) PO SCH (21:10)
[2020-10-24] MEDS: TAMSULOSIN 0.4 MG CAP PO SCH (21:16)
[2020-10-24 22:00] VITALS: BP 143/83
[2020-10-24] MEDS: PERCOCET 5MG/325MG TAB PO PRN (22:45)
[2020-10-25] MEDS ORDERED: MORPHINE 2 MG/ML 1ML VIAL (J2270) IV ONE ×2 (00:30→08:25)
[2020-10-25] MEDS ORDERED: HumaLOG INSULIN (NovoLOG) PER UNIT SC SCH (00:50)
[2020-10-25] MEDS: ONDANSETRON 4MG/2ML VIAL IV SCH ×6 (01:04→21:00)
[2020-10-25] MEDS: HumaLOG INSULIN (NovoLOG) PER UNIT SC SCH ×5 (01:04→20:54)
[2020-10-25 06:00] VITALS: BP 140/81
[2020-10-25] MEDS: PERCOCET 5MG/325MG TAB PO PRN ×4 (06:08→22:00)
[2020-10-25 07:11] LABS: HEMATOCRIT 39.5 % (42.0-52.0); HEMOGLOBIN 13.2 g/dl (13.5-17.5); MEAN CORPUSCULAR HGB CONC 33.4 g/dl (32.0-36.5); MEAN CORPUSCULAR VOLUME 86.8 fl (80.0-96.0); PLATELET COUNT, AUTOMATED 170 10^3/uL (150-450); RED BLOOD COUNT 4.55 10^6/uL (4.30-6.10); WHITE BLOOD COUNT 4.8 10^3/uL (4.0-10.0)
[2020-10-25 08:05] LABS: ALBUMIN 3.3 GM/DL (3.2-5.2); ALT/SGPT 55 U/L (12-78); BILIRUBIN,TOTAL 0.7 MG/DL (0.2-1.0); BLOOD UREA NITROGEN 7 MG/DL (7-18); CALCIUM LEVEL 8.1 MG/DL (8.5-10.1); CARBON DIOXIDE LEVEL 29 MEQ/L (21-32); CHLORIDE LEVEL 112 MEQ/L (98-107); CREATININE FOR GFR 0.81 MG/DL (0.70-1.30); GLOMERULAR FILTRATION RATE > 60.0 (>56); GLUCOSE, FASTING 123 MG/DL (70-100); MAGNESIUM LEVEL 1.9 MG/DL (1.8-2.4); POTASSIUM SERUM 3.5 MEQ/L (3.5-5.1); SODIUM LEVEL 145 MEQ/L (136-145); TOTAL PROTEIN 6.1 GM/DL (6.4-8.2)
[2020-10-25 08:17] LABS: ERYTHROCYTE SEDIMENTATION RATE 3 mm/hr (0-20)
[2020-10-25] MEDS: KCL 20MEQ in NS 1000ML 1,000 ML IV SCH ×2 (08:37→17:49)
[2020-10-25] MEDS: SUCRALFATE SUSP 1GM/10ML UD PO SCH ×4 (08:37→20:50)
[2020-10-25] MEDS: ASPIRIN 81 MG CHEW TABLET PO SCH (08:39)
[2020-10-25] MEDS: CYANOCOBALAMIN 500 MCG TAB PO SCH (08:39)
[2020-10-25] MEDS: FAMOTIDINE 20 MG TAB PO SCH ×2 (08:39→20:51)
[2020-10-25] MEDS: GABAPENTIN 300 MG CAP PO SCH ×3 (08:39→20:53)
[2020-10-25] MEDS: FOLIC ACID 1 MG TAB PO SCH (08:39)
[2020-10-25] MEDS: APIXABAN 5 MG TAB (ELIQUIS) PO SCH ×2 (08:39→20:50)
[2020-10-25] MEDS: ATORVASTATIN 20 MG TAB PO SCH (08:39)
[2020-10-25] MEDS: VITAMIN D 1,000 INTERNATIONAL UNITS TABLET PO SCH (08:39)
[2020-10-25] MEDS: amLODIPine 5 MG TAB PO SCH (08:40)
[2020-10-25] MEDS: lisinopriL 40 MG TAB PO SCH (08:40)
[2020-10-25] MEDS: CARVedilol 12.5 MG TAB PO SCH ×2 (08:40→20:53)
[2020-10-25] MEDS: GASTROGRAFIN SOLUTION 30ML PO SCH ×2 (08:52→09:39)
[2020-10-25] MEDS: DOCUSATE SODIUM 100MG CAPSULE PO SCH ×2 (09:00→20:51)
--- NOTE | 2020-10-25 11:33 | REP ---
INDICATION: abd pain, ruq and periumbilical. pelvic too COMPARISON: 10/23/2020, 05/22/2019 TECHNIQUE: Axial noncontrast images from the lung bases to the pubic symphysis with coronal and sagittal reformations. Oral contrast administered prior to imaging. This CT examination was performed using the following dose reduction techniques: Automated exposure control, adjustment of mA and/or kv according to the patient's size, and use of iterative reconstruction technique. FINDINGS: Lung bases demonstrate mild bibasilar atelectasis. Liver, spleen, pancreas, gallbladder, bilateral adrenal glands and kidneys are normal/stable. The enteric system is unremarkable and without obstruction or acute inflammatory process. Normal terminal ileum and appendix identified in the right lower quadrant. Pelvis demonstrates Byrd catheter in collapsed bladder along with stable prostatomegaly. No ascites. No free air. No adenopathy. No focal inflammatory stranding. Abdominal aorta without aneurysm. Infrarenal IVC filter stable in position. Evidence for prior lumbar fixation.. IMPRESSION: 1. Mild bibasilar atelectasis. 2. No acute abdominopelvic pathology appreciated. 3. Chronic findings as above. <Electronically signed by Michael Bourgeois > 10/25/20 1121
[2020-10-25] MEDS ORDERED: MIRALAX *UNIT DOSE* 17GM PACKET PO PRN (12:40)
--- NOTE | 2020-10-25 12:50 | IPNPDOC ---
Subjective Date Seen The patient was seen on 10/25/20. Subjective Chief Complaint/HPI Mr. Ibarra is a 60 year old male with CAD s/p stents, NIDDM, and history of concussions who presents with intractable nausea/vomiting, abdominal pain, and diarrhea. This morning, he still has RUQ and abdominal pain, but not as severe as prior. He has suprapubic/perineal pain. I did a prostate exam with nurse at bedside. Patient has a tender prostate. PSA was mildly elevated. Patient does have an enlarged prostate on CT abd/pelvis. Suspect patient to have prostatitis. Will start patient on antibiotics. In addition, patient did not have CT abd /pelvis with PO contrasted. Ordered for CT abd/pelvis with PO contrast. Objective Physical Examination General Exam: Positive: Alert, Cooperative Eye Exam: Positive: EOMI; Negative: Sclera icteric ENT Exam: Positive: Atraumatic Neck Exam: Positive: Supple Chest Exam: Positive: Clear to auscultation; Negative: Rales, Rhonchi, Wheezing Heart Exam: Positive: Rate Normal, Regular Rhythm Abdomen Exam: Positive: Normal bowel sounds, Soft, Tenderness Extremity Exam: Negative: Edema Neuro Exam: Positive: Normal Speech Psych Exam: Positive: Mental status NL, Mood NL Assessment /Plan Assessment Mr. Ibarra is a 60 year old male with CAD s/p stents, NIDDM, and history of concussions who presents with intractable nausea/vomiting, abdominal pain, and diarrhea. Unclear etiology to his GI symptoms, although patient is on metformin which can cause GI upset, nausea, and diarrhea. No imaging findings and a non- elevated lactic acid. Lipase low as well. Patient has not had a bowel movement or nausea in the past 2 days. Will discontinue GI panel and H.pylori Otherwise, patient also reports suprapubic pain. Patient has a tender prostate on digital exam. Will start patient on ciprofloxacin for prostatitis Plan/VTE VTE Prophylaxis Ordered?: Yes Plan 1. Intractable nausea/vomiting/diarrhea with abdominal pain and tenderness -Unclear etiology. CT abd/pelvis with IV contrast and PO contrast neg, US abd neg, LA normal, lipase normal, and no leukocytosis -Supportive care, clear liquid diet -Add Carafate and Protonix to patient's famotidine -Zofran PRN for nausea -Acetaminophen PRN for pain -Nausea/vomiting/diarrhea resolved 2. Prostatitis -Patient has an enlarged prostate. Tender on palpation during digital rectal exam -Ciprofloxacin day 0 3. CAD s/p stents -No active chest pain -Continue aspirin, atorvastatin, carvedilol, and lisinopril -Continue PRN sublingual nitroglycerin 4. NIDDM -Hold metformin -Start sliding scale insulin -On clear liquid diet at the time being 5. Hypertension -Continue carvedilol and lisinopril 6. BPH -Continue Tamsulosin 7. History of PE and DVT -Continue apixaban 8. DVT ppx -On apixaban Disposition: N/V/D improved. Pending improvement in abdominal pain and ability to tolerate diet. VS, I&O, 24H, Fishbone Vital Signs/I&O Vital Signs Date Time Temp Pulse Resp B/P (MAP) Pulse Ox O2 Delivery O2 Flow Rate FiO2 10/25/20 08:49 18 Room Air 10/25/20 08:40 68 150/85 10/25/20 06:00 97.8 96 I&O- Last 24 Hours up to 6 AM 10/25/20 05:59 Intake Total 5440 ml Output Total 2050 ml Balance 3390 ml Laboratory Data 24H LABS Laboratory Tests 2 10/24/20 15:56: Urine Color YELLOW, Urine Appearance CLEAR, Urine pH 5.0, Urine Specific Clark 1.030, Urine Protein 1+H, Urine Glucose (UA) 3+H, Urine Ketones NEGATIVE, Urine Blood NEGATIVE, Urine Nitrite NEGATIVE, Urine Bilirubin NEGATIVE, Urine Urobilinogen 0.2, Urine Leukocyte Esterase NEGATIVE, Urine WBC (Auto) 0, Urine RBC (Auto) 3, Urine Hyaline Casts (Auto) 4, Urine Bacteria (Auto) NEGATIVE, Urine Squamous Epithelial Cells 0, Urine Mucus (Auto) SMALL, Urine Sperm (Auto) 10/24/20 16:30: Bedside Glucose (Misc Panel) 117H 10/24/20 20:16: Bedside Glucose (Misc Panel) 229H 10/25/20 00:17: Bedside Glucose (Misc Panel) 324H 10/25/20 05:41: Nucleated Red Blood Cells % (auto) 0.0, Erythrocyte Sedimentation Rate 3, Anion Gap 4L, Glomerular Filtration Rate > 60.0, Calcium Level 8.1L, Magnesium Level 1.9, Total Bilirubin 0.7, Aspartate Amino Transf (AST/SGOT) 32, Alanine Aminotransferase (ALT/SGPT) 55, Alkaline Phosphatase 67, C-Reactive Protein, Quantitative 0.30, Total Protein 6.1L, Albumin 3.3, Albumin/Globulin Ratio 1.2, Prostate Specific Antigen Screen 4.04H 10/25/20 05:46: Bedside Glucose (Misc Panel) 126H 10/25/20 11:27: Bedside Glucose (Misc Panel) 209H CBC/BMP Laboratory Tests 10/25/20 05:41 LEEANN HENRIQUEZ DO Oct 25, 2020 12:50
[2020-10-25 14:00] VITALS: BP 152/85
[2020-10-25] MEDS: CIPROFLOXACIN 400 MG in IV 1 EA IV SCH (14:14)
[2020-10-25] MEDS: LACTOBACILLUS ACIDOPHILUS CAP (BACID) PO SCH (17:49)
[2020-10-25] MEDS: TAMSULOSIN 0.4 MG CAP PO SCH (20:52)
[2020-10-25] MEDS: PANTOPRAZOLE 40MG TAB (PROTONIX) PO SCH (20:52)
[2020-10-25 21:29] VITALS: BP 145/88
[2020-10-25] MEDS ORDERED: BISACODYL 5 MG TAB PO PRN (21:30)
[2020-10-25] MEDS ORDERED: MAGNESIUM CITRATE 300 ML BTL PO ONE (21:45)
[2020-10-25] MEDS: ACETAMINOPHEN TAB 650MG DOSE (2X325MG) PO PRN (22:00)
[2020-10-25] MEDS: BISACODYL 10 MG SUPP PR SCH (22:01)
[2020-10-25] MEDS ORDERED: traMADol 50 MG TAB PO ONE (23:15)
--- NOTE | 2020-10-25 23:50 | REPVR ---
PROCEDURE INFORMATION: Exam: XR Abdomen Exam date and time: 10/25/2020 10:46 PM Age: 60 years old Clinical indication: Other: Abdominal pain TECHNIQUE: Imaging protocol: XR of the abdomen. Views: Frontal supine view of the abdomen. 1 View. COMPARISON: CT ABD/PEL W/PO CONTRAST ONLY 10/25/2020 10:19 AM FINDINGS: Tubes, catheters and devices: Vena caval filters are present. Gastrointestinal tract: There is contrast within the rectum with mostly air in the remainder of the colon. There is no evidence of displacement of bowel. Bones/joints: Unremarkable. IMPRESSION: No evidence of bowel obstruction. Electronically signed by: Hemal Caldwell On 10/25/2020 23:49:42 PM
[2020-10-26] MEDS: oxyBUTYnin 5 MG TAB PO PRN ×3 (00:10→17:30)
[2020-10-26] MEDS: ONDANSETRON 4MG/2ML VIAL IV SCH ×6 (01:13→21:44)
[2020-10-26] MEDS: CIPROFLOXACIN 400 MG in IV 1 EA IV SCH (01:13)
--- NOTE | 2020-10-26 01:52 | IPNPDOC ---
Text Note Date of Service The patient was seen on 10/26/20. NOTE Patient is complaining of lower abdominal/pelvic pain and pain at Byrd catheter insertion site. He was bladder scanned x 2 with first scan showing only 14-15 ml and the second scan is showing multiple areas with fluid collection. Mr. Ibarra continues to complain of unrelieved abdominal pain, urinary stream is strong, forceful with urine leaking/flowing from around the Byrd catheter. Byrd catheter was irrigated per order without incident when flushing catheter irrigating his bladder, yet when aspiration the fluid (pulling back on the syringe), there was no initial fluid return and there was difficulty in retracting the plunger. Dr. Moreno consulted, informed of patients symptoms and said he will see patient in the morning in addition to start on Detrol LA bid po (verbal given to patients nurse by Dr. Moreno). I placed a Stat bladder US ordered to see if patient is have urinary retention as he is in severe pain. Morphine Sulfate 1 mg IV push now. Will continue to monitor patient. VS,Moriahe, I+O VS, Jorgebone, I+O Laboratory Tests 10/25/20 05:41 Vital Signs Date Time Temp Pulse Resp B/P (MAP) Pulse Ox O2 Delivery O2 Flow Rate FiO2 10/25/20 23:24 20 10/25/20 22:30 Room Air 10/25/20 21:29 97.1 65 145/88 (107) 98 I&O- Last 24 Hours up to 6 AM 10/26/20 06:00 Intake Total 2460 ml Output Total 5700 ml Balance -3240 ml HOWIE WEINER MORNING SHOW PRODUCER Oct 26, 2020 01:52
[2020-10-26] MEDS ORDERED: MORPHINE 2 MG/ML 1ML VIAL (J2270) IV ONE (02:00)
[2020-10-26] MEDS: PERCOCET 5MG/325MG TAB PO PRN ×4 (03:20→20:40)
--- NOTE | 2020-10-26 04:05 | REPVR ---
PROCEDURE INFORMATION: Exam: US Pelvis Limited, Bladder Exam date and time: 10/26/2020 2:50 AM Age: 60 years old Clinical indication: Retention of urine; Additional info: Urinary retention TECHNIQUE: Imaging protocol: Real-time pelvic ultrasound with image documentation. COMPARISON: CT ABD/PEL W/PO CONTRAST ONLY 10/25/2020 10:19 AM FINDINGS: Urinary bladder: The bladder is nondistended due to a Byrd catheter and poorly visualized. IMPRESSION: Nondistended bladder. Electronically signed by: Dahiana Cisneros On 10/26/2020 04:04:38 AM
[2020-10-26] MEDS: KCL 20MEQ in NS 1000ML 1,000 ML IV SCH ×2 (05:14→14:36)
[2020-10-26 06:31] VITALS: BP 131/78
[2020-10-26 06:47] LABS: HEMATOCRIT 41.3 % (42.0-52.0); MEAN CORPUSCULAR HEMOGLOBIN 28.7 pg (27.0-33.0); MEAN CORPUSCULAR HGB CONC 33.9 g/dl (32.0-36.5); MEAN CORPUSCULAR VOLUME 84.6 fl (80.0-96.0); PLATELET COUNT, AUTOMATED 163 10^3/uL (150-450); RED BLOOD COUNT 4.88 10^6/uL (4.30-6.10); WHITE BLOOD COUNT 6.3 10^3/uL (4.0-10.0)
[2020-10-26 07:12] LABS: BLOOD UREA NITROGEN 3 MG/DL (7-18); CALCIUM LEVEL 8.9 MG/DL (8.5-10.1); CARBON DIOXIDE LEVEL 32 MEQ/L (21-32); CHLORIDE LEVEL 106 MEQ/L (98-107); CREATININE FOR GFR 0.85 MG/DL (0.70-1.30); GLOMERULAR FILTRATION RATE > 60.0 (>56); GLUCOSE, FASTING 158 MG/DL (70-100); POTASSIUM SERUM 3.6 MEQ/L (3.5-5.1); SODIUM LEVEL 140 MEQ/L (136-145)
[2020-10-26] MEDS: SUCRALFATE SUSP 1GM/10ML UD PO SCH ×4 (08:46→21:45)
[2020-10-26] MEDS: HumaLOG INSULIN (NovoLOG) PER UNIT SC SCH ×4 (08:47→21:00)
[2020-10-26] MEDS: APIXABAN 5 MG TAB (ELIQUIS) PO SCH ×2 (08:47→21:44)
[2020-10-26] MEDS: FAMOTIDINE 20 MG TAB PO SCH ×2 (08:47→21:47)
[2020-10-26] MEDS: ASPIRIN 81 MG CHEW TABLET PO SCH (08:47)
[2020-10-26] MEDS: GABAPENTIN 300 MG CAP PO SCH ×3 (08:48→21:47)
[2020-10-26] MEDS: DOCUSATE SODIUM 100MG CAPSULE PO SCH ×2 (08:48→21:46)
[2020-10-26] MEDS: ATORVASTATIN 20 MG TAB PO SCH (08:48)
[2020-10-26] MEDS: LACTOBACILLUS ACIDOPHILUS CAP (BACID) PO SCH ×2 (08:48→17:31)
[2020-10-26] MEDS: FOLIC ACID 1 MG TAB PO SCH (08:48)
[2020-10-26] MEDS: CARVedilol 12.5 MG TAB PO SCH ×2 (08:48→21:52)
[2020-10-26] MEDS: amLODIPine 5 MG TAB PO SCH (08:48)
[2020-10-26] MEDS: lisinopriL 40 MG TAB PO SCH (08:49)
[2020-10-26] MEDS: VITAMIN D 1,000 INTERNATIONAL UNITS TABLET PO SCH (08:49)
[2020-10-26] MEDS: CYANOCOBALAMIN 500 MCG TAB PO SCH (08:49)
[2020-10-26] MEDS: BISACODYL 10 MG SUPP PR SCH ×2 (08:49→21:52)
--- NOTE | 2020-10-26 11:14 | SMCUROLCON ---
Urology Consultation General Date of Consultation 10/26/20 Reason For Consultation This patient is seen for Abdominal Pain, Diarrhea, Nausea & Vomiting. 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 Since admission he was also found to be in urinary retention. He had a catheter placed 2 days ago and then yesterday he developed hematuria and it appeared that the catheter stopped draining. The catheter was changed out to a 20Fr coude catheter and since then he has intermittent suprapubic pain and leakage around the catheter. We have been consulted for recommendations. The patient notes that prior to coming in to the hospital he felt that he was voiding well. He did not always feel that he was emptying completely but felt that the force of his stream was normal. He denied dysuria or hematuria previously. He had never taken any medications for his prostate or bladder. Past Medical History Medical History 1. 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 CAD s/p stent 3. NIDDM 4. Essential hypertension 5. CHF (Echocardiogram 12/2018, demonstrates EF 65 to 70%, grade 1 diastolic dysfunction, possible obstructive cardiomyopathy) 6. Multiple concussions from playing football 7. BPH 8. Dyslipidemia 9. Depression with anxiety features 10. CVA in 2014 Surgical Hstory 1. Knee surgeries 2. Cervical and lumbar fusion 3. Cardiac stent placement 4. Pacemaker/AICD insertion 5. 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 IVC filter placement Medications Current Medications Current Medications Medications (Trade) Dose Ordered Sig/Kady Route PRN Reason Start Time Stop Time Status Last Admin Dose Admin Acetaminophen (Tylenol Tab) 650 mg Q4HP PRN PO MILD PAIN OR FEVER 10/23/20 16:20 10/25/20 22:00 Acetaminophen/ Hydrocodone Bitart ([place], Anexsia 5/325) 1 tab Q6HP PRN PO MODERATE/SEVERE PAIN (PS 5-10) 10/24/20 10:50 10/24/20 22:34 DC 10/24/20 18:36 Al Hydrox/Mg Hydrox/Simethicone (Mylanta) 30 ml DAILY PRN PO DYSPEPSIA 10/23/20 16:15 Amlodipine Besylate (Norvasc) 5 mg DAILY PO 10/24/20 09:00 10/26/20 08:48 Apixaban (Eliquis) 5 mg BID PO 10/23/20 21:00 10/26/20 08:47 Aspirin (Aspirin Chewable) 81 mg DAILY PO 10/24/20 09:00 10/26/20 08:47 Atorvastatin Calcium (Lipitor) 80 mg DAILY PO 10/24/20 09:00 10/26/20 08:48 Bisacodyl (Dulcolax Suppository) 10 mg BID [place] 10/25/20 21:00 10/26/20 08:49 Bisacodyl (Dulcolax Tab) 10 mg DAILYPRN PRN PO CONSTIPATION 10/25/20 21:30 Carvedilol (COReg) 25 mg BID PO 10/23/20 21:00 10/26/20 08:48 Ciprofloxacin 400 mg/IV Miscellaneous Supplies 200 ml @ 200 mls/hr Q12H IV 10/25/20 14:00 10/26/20 01:13 Cyanocobalamin (Vitamin B12) 500 mcg DAILY PO 10/24/20 09:00 10/26/20 08:49 Dextrose (Dextrose 50%) 25 ml ASDIRECTED PRN IV SEE LABEL COMMENTS 10/23/20 16:20 Diatrizoate Meglum/ Diatrizoate Sod (Gastrografin) 10 ml Q30M PO 10/25/20 08:30 10/25/20 09:01 DC 10/25/20 09:39 Docusate Sodium (Colace) 100 mg BID PO 10/25/20 09:00 10/26/20 08:48 Enoxaparin Sodium (Lovenox) 40 mg DAILY SC 10/24/20 09:00 10/23/20 17:17 DC Famotidine (Pepcid) 20 mg BID PO 10/23/20 21:00 10/26/20 08:47 Folic Acid (Folic Acid) 1 mg DAILY PO 10/24/20 09:00 10/26/20 08:48 Gabapentin (Neurontin) 600 mg TID PO 10/23/20 21:00 10/26/20 08:48 Glucagon (Glucagon) 1 mg ASDIRECTED PRN SC SEE LABEL COMMENTS 10/23/20 16:20 Glucose (Glucose) 16 GM ASDIRECTED PRN PO SEE LABEL COMMENTS 10/23/20 16:20 Home Med (Med Rec Complete!) ASDIRECTED XX 10/23/20 16:35 10/23/20 16:36 DC Insulin Human Lispro (HumaLOG INSULIN) SEE PROTOCOL TABLE AC CA 10/23/20 17:30 10/25/20 00:48 DC 10/24/20 12:03 Insulin Human Lispro (HumaLOG INSULIN) SEE PROTOCOL TABLE ACHS CA 10/25/20 12:00 10/26/20 08:47 Insulin Human Lispro (HumaLOG INSULIN) SEE PROTOCOL TABLE Q6H CA 10/25/20 00:00 10/25/20 08:17 DC 10/25/20 01:04 Insulin Human Lispro (HumaLOG INSULIN) SEE PROTOCOL TABLE Q6H CA 10/25/20 00:50 10/25/20 00:54 DC Insulin Human Lispro (HumaLOG INSULIN) SEE PROTOCOL TABLE QHS CA 10/23/20 21:00 10/25/20 00:49 DC Ketorolac Tromethamine (ToRADol) 30 mg Q6H PRN IV PAIN 10/23/20 21:00 10/24/20 10:47 DC 10/24/20 09:40 Lactobacillus Acidophilus (Bacid) 1 ea BIDWM PO 10/25/20 18:00 10/26/20 08:48 Lisinopril (Prinivil) 40 mg DAILY PO 10/24/20 09:00 10/26/20 08:49 Magnesium Sulfate/ Dextrose 1 gm/IV Miscellaneous Supplies 100 ml @ 100 mls/hr 1900,2000 IV 10/23/20 19:00 10/23/20 20:59 DC 10/23/20 20:40 Magnesium Sulfate/ Dextrose 1 gm/IV Miscellaneous Supplies 100 ml @ 100 mls/hr Q1H IV 10/24/20 10:00 10/24/20 13:59 DC 10/24/20 13:13 Morphine Sulfate (Morphine Sulfate Inj) 4 mg Q30M PRN IV SEVERE PAIN (PS 8-10) 10/23/20 12:20 10/23/20 18:35 DC 10/23/20 18:33 Nitroglycerin (Nitrostat (1/ 150)) 0.4 mg Q5MP PRN SL CHEST PAIN 10/23/20 17:05 Ondansetron HCl (ZOFRAN INJection) 4 mg Q4H IV 10/23/20 18:00 10/26/20 05:14 Oxybutynin Chloride (Ditropan) 5 mg TIDP PRN PO BLADDER SPASM 10/25/20 23:55 10/26/20 00:10 Oxycodone/ Acetaminophen (Percocet 5mg/ 325mg Tablet) 1 tab Q4HP PRN PO MODERATE/SEVERE PAIN (PS 5-10) 10/24/20 22:30 10/26/20 03:20 Pantoprazole Sodium (Protonix) 40 mg QHS PO 10/23/20 21:00 10/25/20 20:52 Polyethylene Glycol (Miralax) 1 pkt DAILYPRN PRN PO CONSTIPATION 10/25/20 12:40 Potassium Chloride/Sodium Chloride 1,000 ml @ 100 mls/hr Q10H IV 10/23/20 17:00 10/26/20 05:14 Sodium Chloride 1,000 ml @ 150 mls/hr Q6H40M IV 10/23/20 12:20 10/23/20 16:59 DC 10/23/20 12:21 Sucralfate (Carafate Suspension) 1 gm ACHS PO 10/23/20 17:30 10/26/20 08:46 Tamsulosin HCl (Flomax) 0.4 mg QHS PO 10/23/20 21:00 10/25/20 20:52 Vitamin D (Vitamin D) 1,000 units DAILY PO 10/24/20 09:00 10/26/20 08:49 Allergies Allergies: Coded Allergies: nifedipine (Verified Allergy, Mild, angina, 01/09/19) prochlorperazine (Verified Allergy, Mild, vomiting, 01/09/19) cyclobenzaprine (Verified Adverse Reaction, Mild, anxiety, 01/09/19) Review of Systems Constitutional: Reports: Sweats; Denies: Fever, Chills Skin: Denies: Rash, Lesions, Breakdown, Nail Changes Pulmonary: Denies: Dyspnea, Cough Cardiovascular: Denies Chest Pain, Denies Palpitations Gastrointestinal: Reports: Abdominal Pain Genitourinary: Reports: Hematuria, Retention Neurological: Denies: Weakness, Numbness, Change in Speech Psych: Reports: Mood Normal; Denies: Anxiety, Depression Physical Examination General Exam: Alert, Cooperative, No Acute Distress Chest Exam: Clear to auscultation Heart Exam: Rate Normal Abdomen Exam: Soft; No: Tenderness Male Exam 20Fr coude catheter in place draining light pink urine Skin Exam: Nl turgor and temperature Neuro Exam: Normal Speech Psych Exam: Mental status NL, Mood NL Vital Signs/I&O Vital Signs Date Time Temp Pulse Resp B/P (MAP) Pulse Ox O2 Delivery O2 Flow Rate FiO2 10/26/20 08:48 66 156/87 10/26/20 06:31 96.9 18 96 Room Air I&O- Last 24 Hours up to 6 AM 10/26/20 06:00 Intake Total 4260 ml Output Total 7170 ml Balance -2910 ml Laboratory Data 24H Labs Laboratory Tests 2 10/25/20 11:27: Bedside Glucose (Misc Panel) 209H 10/25/20 14:12: 10/25/20 16:28: Bedside Glucose (Misc Panel) 152H 10/25/20 19:59: Bedside Glucose (Misc Panel) 87 10/26/20 06:32: Nucleated Red Blood Cells % (auto) 0.0, Anion Gap 2L, Glomerular Filtration Rate > 60.0, Calcium Level 8.9 CBC/BMP Laboratory Tests 10/26/20 06:32 Assessment This is a 60 y/o M admitted for abd pain and n/v, found to be in urinary retention and now having gross hematuria. The urinary retention is likely due to BPH and the hematuria is very likely 2/2 from his catheter getting tugged on. He had no hematuria prior to catheter placement. He appears to be having severe bladder spasms, causing periodic leakage around the catheter. Oxybutynin is helping w/ this. Plan - keep catheter to gravity drainage for urinary retention - patient will need to keep the catheter in at discharge - continue flomax at discharge - oxybutynin prn bladder spasms - I will arrange f/u in the urology office 1-2 wks after discharge for a voiding trial AKIRA MOORE MD Oct 26, 2020 10:01
[2020-10-26 14:00] VITALS: BP 155/84
[2020-10-26] MEDS: PHENAZOPYRIDINE 100 MG TAB PO SCH ×2 (17:29→21:45)
--- NOTE | 2020-10-26 17:37 | IPNPDOC ---
Subjective Date Seen The patient was seen on 10/26/20. Subjective Chief Complaint/HPI Mr. Ibarra is a 60 year old male with CAD s/p stents, NIDDM, and history of concussions who presents with intractable nausea/vomiting, abdominal pain, and diarrhea. Last night, he had pain from his Byrd catheter and there was leakage around the Byrd. Dr. Moreno was consulted and recommended a larger Byrd. Dr. Moreno saw the patient in the morning. Suspecting that the patient was having bladder spasms which as causing the pain. Patient was started on oxybutynin. Dr. Moreno recommends continuing the Byrd and have the patient follow up in 1 to 2 weeks at his office for voiding trials. Otherwise, we discussed prostatitis. Unlikely prostatitis and antibiotics were discontinued. When I saw the patient this morning, he felt like he could eat. Tried a clear liquid diet, but did not tolerate a clear liquid diet. Otherwise, I also started Pyridium to help with the pain. Objective Physical Examination General Exam: Positive: Alert, Cooperative Eye Exam: Positive: EOMI; Negative: Sclera icteric ENT Exam: Positive: Atraumatic Neck Exam: Positive: Supple Chest Exam: Positive: Clear to auscultation; Negative: Rales, Rhonchi, Wheezing Heart Exam: Positive: Rate Normal, Regular Rhythm Abdomen Exam: Positive: Normal bowel sounds, Soft, Tenderness Extremity Exam: Negative: Edema Neuro Exam: Positive: Normal Speech Psych Exam: Positive: Mental status NL, Mood NL Assessment /Plan Assessment Mr. Ibarra is a 60 year old male with CAD s/p stents, NIDDM, and history of concussions who presents with intractable nausea/vomiting, abdominal pain, and diarrhea. Unclear etiology to his GI symptoms, although patient is on metformin which can cause GI upset, nausea, and diarrhea. No imaging findings and a non- elevated lactic acid. Lipase low as well. Patient has not had a bowel movement or nausea in the past 2 days. Will discontinue GI panel and H.pylori Otherwise, patient also reports suprapubic pain. Discussed with Dr. Moreno, patient unlikely to have prostatitis. Patient most likely having bladder spasms causing pain and leakage. Patient was started on oxybutynin by urology. I added on Pyridium to help with the burning pain. Plan/VTE VTE Prophylaxis Ordered?: Yes Plan 1. Intractable nausea/vomiting/diarrhea with abdominal pain and tenderness -Unclear etiology. CT abd/pelvis with IV contrast and PO contrast neg, US abd neg, LA normal, lipase normal, and no leukocytosis -Supportive care, clear liquid diet -Add Carafate and Protonix to patient's famotidine -Zofran PRN for nausea -Acetaminophen PRN for pain -Nausea/vomiting/diarrhea resolved 2. BPH with acute urinary retention -Urology was consulted, recommendations appreciated -Patient started on oxybutynin for the bladder spasms -Continue tamsulosin and Byrd, patient to see urology outpatient in 1 to 2 weeks for voiding trials -Added on Pyridium for the pain 3. CAD s/p stents -No active chest pain -Continue aspirin, atorvastatin, carvedilol, and lisinopril -Continue PRN sublingual nitroglycerin 4. NIDDM -Hold metformin -Start sliding scale insulin -On clear liquid diet at the time being 5. Hypertension -Continue carvedilol and lisinopril 6. History of PE and DVT -Continue apixaban 7. DVT ppx -On apixaban Disposition: N/V/D improved. Pending improvement in pelvic pain and ability to tolerate diet. VS, I&O, 24H, Fishbone Vital Signs/I&O Vital Signs Date Time Temp Pulse Resp B/P (MAP) Pulse Ox O2 Delivery O2 Flow Rate FiO2 10/26/20 15:10 18 10/26/20 14:00 97.2 64 155/84 (107) 96 Room Air I&O- Last 24 Hours up to 6 AM 10/26/20 06:00 Intake Total 4260 ml Output Total 7170 ml Balance -2910 ml Laboratory Data 24H LABS Laboratory Tests 2 10/25/20 19:59: Bedside Glucose (Misc Panel) 87 10/26/20 06:32: Nucleated Red Blood Cells % (auto) 0.0, Anion Gap 2L, Glomerular Filtration Rate > 60.0, Calcium Level 8.9 10/26/20 12:00: Bedside Glucose (Misc Panel) 225H 10/26/20 16:32: Bedside Glucose (Misc Panel) 204H CBC/BMP Laboratory Tests 10/26/20 06:32 LEEANN HENRIQUEZ DO Oct 26, 2020 17:37
[2020-10-26] MEDS: TAMSULOSIN 0.4 MG CAP PO SCH (21:45)
[2020-10-26] MEDS: PANTOPRAZOLE 40MG TAB (PROTONIX) PO SCH (21:45)
[2020-10-27] MEDS: KCL 20MEQ in NS 1000ML 1,000 ML IV SCH (00:48)
[2020-10-27] MEDS: PERCOCET 5MG/325MG TAB PO PRN ×3 (00:50→20:35)
[2020-10-27] MEDS: ONDANSETRON 4MG/2ML VIAL IV SCH ×6 (01:00→20:26)
[2020-10-27 06:00] VITALS: BP 146/80
[2020-10-27 06:31] LABS: HEMATOCRIT 38.7 % (42.0-52.0); HEMOGLOBIN 13.6 g/dl (13.5-17.5); MEAN CORPUSCULAR HEMOGLOBIN 29.8 pg (27.0-33.0); MEAN CORPUSCULAR HGB CONC 35.1 g/dl (32.0-36.5); MEAN CORPUSCULAR VOLUME 84.7 fl (80.0-96.0); PLATELET COUNT, AUTOMATED 172 10^3/uL (150-450); RED BLOOD COUNT 4.57 10^6/uL (4.30-6.10); WHITE BLOOD COUNT 5.6 10^3/uL (4.0-10.0)
[2020-10-27 06:51] LABS: BLOOD UREA NITROGEN 3 MG/DL (7-18); CALCIUM LEVEL 9.1 MG/DL (8.5-10.1); CARBON DIOXIDE LEVEL 30 MEQ/L (21-32); CHLORIDE LEVEL 108 MEQ/L (98-107); CREATININE FOR GFR 0.78 MG/DL (0.70-1.30); GLOMERULAR FILTRATION RATE > 60.0 (>56); GLUCOSE, FASTING 136 MG/DL (70-100); POTASSIUM SERUM 3.8 MEQ/L (3.5-5.1); SODIUM LEVEL 143 MEQ/L (136-145)
[2020-10-27] MEDS: SUCRALFATE SUSP 1GM/10ML UD PO SCH ×4 (08:50→20:24)
[2020-10-27] MEDS: ASPIRIN 81 MG CHEW TABLET PO SCH (08:51)
[2020-10-27] MEDS: CARVedilol 12.5 MG TAB PO SCH ×2 (08:51→20:53)
[2020-10-27] MEDS: APIXABAN 5 MG TAB (ELIQUIS) PO SCH ×2 (08:51→20:24)
[2020-10-27] MEDS: HumaLOG INSULIN (NovoLOG) PER UNIT SC SCH ×4 (08:51→20:25)
[2020-10-27] MEDS: LACTOBACILLUS ACIDOPHILUS CAP (BACID) PO SCH ×2 (08:51→17:18)
[2020-10-27] MEDS: PHENAZOPYRIDINE 100 MG TAB PO SCH ×3 (08:51→20:24)
[2020-10-27] MEDS: lisinopriL 40 MG TAB PO SCH (08:52)
[2020-10-27] MEDS: FAMOTIDINE 20 MG TAB PO SCH ×2 (08:52→20:24)
[2020-10-27] MEDS: ATORVASTATIN 20 MG TAB PO SCH (08:52)
[2020-10-27] MEDS: DOCUSATE SODIUM 100MG CAPSULE PO SCH ×2 (08:52→20:25)
[2020-10-27] MEDS: GABAPENTIN 300 MG CAP PO SCH ×3 (08:52→20:24)
[2020-10-27] MEDS: amLODIPine 5 MG TAB PO SCH (08:52)
[2020-10-27] MEDS: CYANOCOBALAMIN 500 MCG TAB PO SCH (08:52)
[2020-10-27] MEDS: VITAMIN D 1,000 INTERNATIONAL UNITS TABLET PO SCH (08:52)
[2020-10-27] MEDS: FOLIC ACID 1 MG TAB PO SCH (08:53)
[2020-10-27] MEDS: oxyBUTYnin 5 MG TAB PO PRN (08:53)
[2020-10-27] MEDS: BISACODYL 10 MG SUPP PR SCH ×2 (08:53→20:26)
--- NOTE | 2020-10-27 13:08 | IPNPDOC ---
Subjective Date Seen The patient was seen on 10/27/20. Subjective Chief Complaint/HPI Mr. Ibarra is a 60 year old male with CAD s/p stents, NIDDM, and history of concussions who presents with intractable nausea/vomiting, abdominal pain, and diarrhea. Overnight, he had pain from his pelvis and bladder scan had about 1L. Nursing re-adjusted Byrd and patient was able to empty. This morning, he was feeling better. He has an appetite. Will advance his diet. Objective Physical Examination General Exam: Positive: Alert, Cooperative Eye Exam: Positive: EOMI; Negative: Sclera icteric ENT Exam: Positive: Atraumatic Neck Exam: Positive: Supple Chest Exam: Positive: Clear to auscultation; Negative: Rales, Rhonchi, Wheezing Heart Exam: Positive: Rate Normal, Regular Rhythm Abdomen Exam: Positive: Normal bowel sounds, Soft, Tenderness Extremity Exam: Negative: Edema Neuro Exam: Positive: Normal Speech Psych Exam: Positive: Mental status NL, Mood NL Assessment /Plan Assessment Mr. Ibarra is a 60 year old male with CAD s/p stents, NIDDM, and history of concussions who presents with intractable nausea/vomiting, abdominal pain, and diarrhea. Unclear etiology to his GI symptoms, although patient is on metformin which can cause GI upset, nausea, and diarrhea. No imaging findings and a non- elevated lactic acid. Lipase low as well. Patient has not had a bowel movement or nausea in the past 2 days. Will discontinue GI panel and H.pylori Otherwise, patient also reports suprapubic pain. Discussed with Dr. Moreno, patient unlikely to have prostatitis. Patient most likely having bladder spasms causing pain and leakage. Patient was started on oxybutynin by urology. I added on Pyridium to help with the burning pain. Plan/VTE VTE Prophylaxis Ordered?: Yes Plan 1. Intractable nausea/vomiting/diarrhea with abdominal pain and tenderness -Unclear etiology. CT abd/pelvis with IV contrast and PO contrast neg, US abd neg, LA normal, lipase normal, and no leukocytosis -Supportive care, clear liquid diet -Add Carafate and Protonix to patient's famotidine -Zofran PRN for nausea -Acetaminophen PRN for pain -Nausea/vomiting/diarrhea resolved 2. BPH with acute urinary retention -Urology was consulted, recommendations appreciated -Patient started on oxybutynin for the bladder spasms -Continue tamsulosin and Byrd, patient to see urology outpatient in 1 to 2 weeks for voiding trials -Added on Pyridium for the pain 3. CAD s/p stents -No active chest pain -Continue aspirin, atorvastatin, carvedilol, and lisinopril -Continue PRN sublingual nitroglycerin 4. NIDDM -Hold metformin -Start sliding scale insulin -On clear liquid diet at the time being 5. Hypertension -Continue carvedilol and lisinopril 6. History of PE and DVT -Continue apixaban 7. DVT ppx -On apixaban Disposition: Patient doing better with urology's recommendations, if patient can tolerate a diet and Byrd does not leak as much, can anticipate discharge tomorrow. Patient will need to go home with a Byrd and follow up with urology outpatient for voiding trials in the next 1 to 2 weeks. VS, I&O, 24H, [place]lee Vital Signs/I&O Vital Signs Date Time Temp Pulse Resp B/P (MAP) Pulse Ox O2 Delivery O2 Flow Rate FiO2 10/27/20 09:23 18 10/27/20 08:52 69 145/80 10/27/20 06:00 97.8 97 Room Air I&O- Last 24 Hours up to 6 AM 10/27/20 05:59 Intake Total 4800 ml Output Total 5850 ml Balance -1050 ml Laboratory Data 24H LABS Laboratory Tests 2 10/26/20 16:32: Bedside Glucose (Misc Panel) 204H 10/26/20 20:43: Bedside Glucose (Misc Panel) 116H 10/27/20 05:25: Nucleated Red Blood Cells % (auto) 0.0, Anion Gap 5L, Glomerular Filtration Rate > 60.0, Calcium Level 9.1 10/27/20 11:34: Bedside Glucose (Misc Panel) 277H CBC/BMP Laboratory Tests 10/27/20 05:25 LEEANN HENRIQUEZ DO Oct 27, 2020 13:08
[2020-10-27 14:00] VITALS: BP 130/69
[2020-10-27] MEDS: PANTOPRAZOLE 40MG TAB (PROTONIX) PO SCH (20:24)
[2020-10-27] MEDS: TAMSULOSIN 0.4 MG CAP PO SCH (20:25)
[2020-10-27 22:00] VITALS: BP 154/75
[2020-10-28] MEDS: ONDANSETRON 4MG/2ML VIAL IV SCH ×4 (02:30→14:00)
[2020-10-28] MEDS: PERCOCET 5MG/325MG TAB PO PRN (05:28)
[2020-10-28 06:00] VITALS: BP 150/78
[2020-10-28] MEDS: oxyBUTYnin 5 MG TAB PO PRN (06:37)
[2020-10-28 06:54] LABS: HEMATOCRIT 40.9 % (42.0-52.0); HEMOGLOBIN 14.1 g/dl (13.5-17.5); MEAN CORPUSCULAR HEMOGLOBIN 29.3 pg (27.0-33.0); MEAN CORPUSCULAR HGB CONC 34.5 g/dl (32.0-36.5); PLATELET COUNT, AUTOMATED 167 10^3/uL (150-450); RED BLOOD COUNT 4.81 10^6/uL (4.30-6.10); WHITE BLOOD COUNT 5.3 10^3/uL (4.0-10.0)
[2020-10-28 07:31] LABS: BLOOD UREA NITROGEN 6 MG/DL (7-18); CALCIUM LEVEL 8.9 MG/DL (8.5-10.1); CARBON DIOXIDE LEVEL 28 MEQ/L (21-32); CHLORIDE LEVEL 105 MEQ/L (98-107); CREATININE FOR GFR 0.86 MG/DL (0.70-1.30); GLOMERULAR FILTRATION RATE > 60.0 (>56); GLUCOSE, FASTING 152 MG/DL (70-100); POTASSIUM SERUM 3.8 MEQ/L (3.5-5.1); SODIUM LEVEL 140 MEQ/L (136-145)
[2020-10-28] MEDS: SUCRALFATE SUSP 1GM/10ML UD PO SCH ×2 (08:17→11:14)
[2020-10-28] MEDS: CYANOCOBALAMIN 500 MCG TAB PO SCH (08:18)
[2020-10-28] MEDS: VITAMIN D 1,000 INTERNATIONAL UNITS TABLET PO SCH (08:18)
[2020-10-28] MEDS: DOCUSATE SODIUM 100MG CAPSULE PO SCH (08:18)
[2020-10-28] MEDS: FAMOTIDINE 20 MG TAB PO SCH (08:18)
[2020-10-28] MEDS: ATORVASTATIN 20 MG TAB PO SCH (08:18)
[2020-10-28] MEDS: ASPIRIN 81 MG CHEW TABLET PO SCH (08:18)
[2020-10-28] MEDS: HumaLOG INSULIN (NovoLOG) PER UNIT SC SCH ×2 (08:18→11:49)
[2020-10-28] MEDS: LACTOBACILLUS ACIDOPHILUS CAP (BACID) PO SCH (08:19)
[2020-10-28] MEDS: APIXABAN 5 MG TAB (ELIQUIS) PO SCH (08:19)
[2020-10-28] MEDS: lisinopriL 40 MG TAB PO SCH (08:19)
[2020-10-28] MEDS: GABAPENTIN 300 MG CAP PO SCH (08:19)
[2020-10-28] MEDS: PHENAZOPYRIDINE 100 MG TAB PO SCH (08:19)
[2020-10-28] MEDS: amLODIPine 5 MG TAB PO SCH (08:19)
[2020-10-28] MEDS: FOLIC ACID 1 MG TAB PO SCH (08:19)
[2020-10-28 08:20] VITALS: BP 154/80
[2020-10-28] MEDS: CARVedilol 12.5 MG TAB PO SCH (08:20)
[2020-10-28] MEDS: BISACODYL 10 MG SUPP PR SCH (08:20)
[2020-10-28 14:00] VITALS: BP 138/75
--- NOTE | 2020-10-28 23:01 | DS.PDOC ---
Discharge Summary General Date of Admission Oct 25, 2020 at 12:50 Date of Discharge Oct 28, 2020 Specialist/[facility], Dr. Moreno Discharge Summary PROCEDURES PERFORMED DURING STAY: None ADMITTING DIAGNOSES: 1. Intractable N/V/D with abdominal pain and tenderness 2. CAD s/p Stent 3. NIDDM 4. Hypertension 5. BPH 6. History of PE and DVT DISCHARGE DIAGNOSES: 1. Gastritis 2. BPH with acute urinary retention 3. CAD s/p Stent 4. NIDDM 5. Hypertension 6. History of PE and DVT COMPLICATIONS/CHIEF COMPLAINT: Abdominal Pain, Diarrhea, Nausea & Vomiting. HISTORY OF PRESENT ILLNESS: Mr. Ibarra is a 60 year old male with CAD s/p stents, NIDDM, and history of concussions who presents with intractable nausea/vomiting, abdominal pain, and diarrhea. Symptoms initially started 3 weeks ago. Denies any history of travel, drinking well water or stream water, eating anything different or new medications/supplements/street drugs. He was on antibiotics about 3 to 4 months ago for infected pacemaker/AICD and completed antibiotics about 2 months ago. Then 3 weeks ago, he had intermittent nausea/vomiting, abdominal pain, and diarrhea. Abdominal pain is mostly in the epigastric area and RLQ. Describes it as a throbbing and burning pain. He [facility] a [facility] and Pepto-Bismol without any improvement. He could not tell me how long it lasted, but he said he would have them about 3 to 4 times a week. In the past 3 days, his symptoms had acutely worsened to the point he could not tolerate oral foods without vomiting. He has not taken his blood thinner in 3 days because he has trouble keeping food down. His diarrhea is watery and he has about 3 to 4 episodes a day. Patient came to the ED for evaluation. CBC and CMP are largely unremarkable except for hypokalemia and elevated glucose. Lipase is low. Lactic acid <2. CT abd/pelvis was negative. UTox negative for marijuana. Positive for opioids and he did receive morphine in the ED. Patient will be placed in observation for intractable nausea/vomiting/diarrhea and abdominal pain. HOSPITAL COURSE: Patient was given Carafate, Protonix, and put on a clear liquid diet. His nausea, vomiting, and diarrhea improved, but still had abdominal pain. Initially attempted to advance diet, but was not able to tolerated. Patient already had a CT abd/pelvis with IV contrast, so I ordered a CT abd/pelvis with PO contrast. New study was also unremarkable. It was noted that patient did not have a good urinary output. Bladder scan demonstrated 800mL of urine. Of note, the CT abd/pelvis with IV contrast did demonstrate a very large prostate. A Byrd catheter was placed. After emptying his bladder, his abdominal pain resolved. Unfortunately, patient did not know how to move around with the Byrd. There was blood in the Byrd catheter, which eventually clotted the Byrd. It was replaced and Urology, Dr. Moreno, was consulted. The patient had leakage around the Byrd catheter which was most likely from bladder spasms. Urology started patient on oxybutynin to stop the spasms so the leakage would be less. It was anticipated that patient would be discharged with the Byrd catheter with urology follow up for voiding trials. Patient was able to tolerate a diet and advanced to clears. Unfortunately, he was not doing well with the Byrd, he still had leakage, and he felt that he would not be able to manage the Byrd catheter by himself. We removed the Byrd, and patient was able to spontaneously void. Patient felt well and felt ready for home. He may have had gastritis initially which resolved with Carafate and Protonix. His abdominal pain may have referred pain from the distended bladder. Patient was discharged home. DISCHARGE MEDICATIONS: Please see below. ALLERGIES: Please see below. PHYSICAL EXAMINATION ON DISCHARGE: VITAL SIGNS: Please see below. GENERAL: Comfortable, in no apparent distress HEENT: Head normocephalic, atraumatic NECK: Supple CARDIOVASCULAR EXAMINATION: Regular rate and rhythm RESPIRATORY EXAMINATION: Lungs clear to auscultation bilaterally ABDOMINAL EXAMINATION: Soft, non-tender, normal bowel sounds EXTREMITIES: No pitting edema bilaterally SKIN: Warm and dry NEUROLOGICAL EXAMINATION: CN 3-12 grossly intact PSYCHIATRIC EXAMINATION: Normal mood and affect LABORATORY DATA: Please see below. IMAGING: Radiologist interpretation, please see radiologist report for full details. CT abd/pelvis with IV contrast No acute abdominopelvic pathology appreciated. CT abd/pelvis with PO contrast 1. Mild bibasilar atelectasis. 2. No acute abdominopelvic pathology appreciated. 3. Chronic findings as above. PROGNOSIS: Good ACTIVITY: As tolerated. DIET: Home DISCHARGE PLAN: Home DISPOSITION: 01 Home, Self-Care. DISCHARGE INSTRUCTIONS: 1. Follow up with PCP within 1 week 2. Follow up with urology within 1 week ITEMS TO FOLLOWUP ON ON OUTPATIENT: 1. Urinary retention, urology referral DISCHARGE CONDITION: Stable. Total time spent on discharge planning, discharge summary, and medication reconciliation: 45 minutes Vital Signs/I&Os Vital Signs Date Time Temp Pulse Resp B/P (MAP) Pulse Ox O2 Delivery O2 Flow Rate FiO2 10/28/20 14:00 97.9 62 12 138/75 (96) 96 Room Air I&O- Last 24 Hours up to 6 AM 10/28/20 06:00 Intake Total 4940 ml Output Total 6400 ml Balance -1460 ml Laboratory Data Labs 24H Laboratory Tests 2 10/28/20 06:12: Nucleated Red Blood Cells % (auto) 0.0, Anion Gap 7L, Glomerular Filtration Rate > 60.0, Calcium Level 8.9 10/28/20 11:32: Bedside Glucose (Misc Panel) 214H CBC/BMP Laboratory Tests 10/28/20 06:12 FSBS Laboratory Tests Test 10/28/20 11:32 Range/Units Bedside Glucose (Misc Panel) 214 70-105 MG/DL Discharge Medications Scheduled Amlodipine Besylate (Amlodipine Besylate) 5 Mg Tablet, 5 MG PO DAILY, (Reported) Apixaban (Eliquis) 5 Mg Tablet, 5 MG PO BID, (Reported) Aspirin (Aspirin) 81 Mg Tab.chew, 81 MG PO DAILY, (Reported) Atorvastatin Calcium (Atorvastatin Calcium) 80 Mg Tablet, 80 MG PO DAILY, (Reported) Carvedilol (Carvedilol) 25 Mg Tablet, 25 MG PO BID, (Reported) Cholecalciferol (Vitamin D3) (Vitamin D3) 1,000 Unit Tablet, 1,000 UNITS PO DAILY, (Reported) Cyanocobalamin (Vitamin B-12) (Vitamin B-12) 500 Mcg Tablet, 500 MCG PO DAILY, (Reported) Famotidine (Famotidine) 20 Mg Tablet, 20 MG PO BID, (Reported) Folic Acid (Folic Acid) 1 Mg Tablet, 1 MG PO DAILY, (Reported) Gabapentin (Neurontin) 600 Mg Tablet, 600 MG PO TID, (Reported) Lisinopril (Lisinopril) 40 Mg Tablet, 40 MG PO DAILY, (Reported) Metformin HCl (Metformin HCl) 1,000 Mg Tablet, 1,000 MG PO BID, (Reported) [place]-3 Fatty Acids/Fish Oil (Fish Oil 1,000 mg Capsule) 1 Each Capsule, 1,000 MG PO DAILY, (Reported) Tamsulosin HCl (Flomax) 0.4 Mg Capsule, 0.4 MG PO QHS, (Reported) Scheduled PRN Diclofenac Sodium (Voltaren) 100 Gm Gel..gram., 4 GRAM TOP TID PRN for BACK PAIN, (Reported) apply to affected area(s) Nitroglycerin (Nitroglycerin) 0.4 Mg Tab.subl, 0.4 MG SL Q5MP PRN for CHEST PAIN, (Reported) 1st sign of attack; may repeat every 5 mins; if pain persists after 3 in 15 min, medical attention is recommended Allergies Coded Allergies: nifedipine (Verified Allergy, Mild, angina, 01/09/19) prochlorperazine (Verified Allergy, Mild, vomiting, 01/09/19) cyclobenzaprine (Verified Adverse Reaction, Mild, anxiety, 01/09/19) LEEANN HENRIQUEZ DO Oct 28, 2020 23:01
== END 2020-10-28 16:06 | disposition home or self-care (01) | DRG 392 ==
LOC: M ED 11:48 → M ED INP 16:14 → ENRESERV 16:35 → M MSPAV 17:40 → OBSVTOIN 10-25 12:50
PROVIDERS: ADMIT Internal Medicine; ATTEND Internal Medicine
DX: K29.70 Gastritis, unspecified, without bleeding (principal); I50.32 Chronic diastolic (congestive) heart failure; R19.7 Diarrhea, unspecified; I25.10 Atherosclerotic heart disease of native coronary artery without angina pectoris; E11.9 Type 2 diabetes mellitus without complications; Z86.718 Personal history of other venous thrombosis and embolism; I11.0 Hypertensive heart disease with heart failure; R33.9 Retention of urine, unspecified; E87.6 Hypokalemia; F32.9 Major depressive disorder, single episode, unspecified; N40.1 Benign prostatic hyperplasia with lower urinary tract symptoms; E78.5 Hyperlipidemia, unspecified; F17.200 Nicotine dependence, unspecified, uncomplicated; N32.89 Other specified disorders of bladder; R31.9 Hematuria, unspecified; Z79.82 Long term (current) use of aspirin; Z79.84 Long term (current) use of oral hypoglycemic drugs; Z79.01 Long term (current) use of anticoagulants; Z79.899 Other long term (current) drug therapy; Z88.8 Allergy status to other drugs, medicaments and biological substances; Z86.711 Personal history of pulmonary embolism; Z95.5 Presence of coronary angioplasty implant and graft; Z86.73 Personal history of transient ischemic attack (TIA), and cerebral infarction without residual deficits; Z98.1 Arthrodesis status; Z95.828 Presence of other vascular implants and grafts; Z20.822 Contact with and (suspected) exposure to COVID-19

== ENCOUNTER 2020-10-30 11:40 | Emergency (ER) | payer OTHER, MEDICARE ==
[~2020-10-30] VITALS: Ht 182.9 cm; Wt 125.0 kg
[~2020-10-30 11:40] MED LIST changes: +AMLO1TAB24 PO; +ASPI81CH33 PO; +D31000TA2 PO; +ELIQ5TAB PO; +FISH1000 PO; +VOLT1GEL15 TOP
[2020-10-30 12:14] LABS: BASO # 0.1 10^3/uL (0.0-0.2); BASO % 0.6 % (0.0-1.0); EOS # 0.2 10^3/uL (0.0-0.5); HEMATOCRIT 42.2 % (42.0-52.0); HEMOGLOBIN 14.7 g/dl (13.5-17.5); LYMPH # 2.5 10^3/uL (1.5-5.0); LYMPH % 30.2 % (24.0-44.0); MEAN CORPUSCULAR HEMOGLOBIN 29.1 pg (27.0-33.0); MEAN CORPUSCULAR HGB CONC 34.8 g/dl (32.0-36.5); MEAN CORPUSCULAR VOLUME 83.4 fl (80.0-96.0); MONO # 0.6 10^3/uL (0.0-0.8); MONO % 7.6 % (2.0-8.0); NEUTROPHILS # 4.8 10^3/uL (1.5-8.5); NEUTROPHILS % 59.1 % (36.0-66.0); PLATELET COUNT, AUTOMATED 215 10^3/uL (150-450); RED BLOOD COUNT 5.06 10^6/uL (4.30-6.10); WHITE BLOOD COUNT 8.1 10^3/uL (4.0-10.0)
--- NOTE | 2020-10-30 12:34 | REP ---
INDICATION: CHEST PAIN. COMPARISON: 01/09/2019. TECHNIQUE: Single portable AP view of the chest was performed. FINDINGS: There is no acute infiltrate or pulmonary edema. Lungs are clear. The heart is not significantly enlarged. The mediastinal silhouette is unremarkable. The visualized osseous structures are intact. IMPRESSION: No acute pulmonary disease. <Electronically signed by Blair Rosas > 10/30/20 0950
[2020-10-30] MEDS ORDERED: HALOPERIDOL 5MG/ML VIAL (J1630 PER 1) IV ONE (12:40)
[2020-10-30 12:45] LABS: ALBUMIN 3.9 GM/DL (3.2-5.2); ALT/SGPT 36 U/L (12-78); BILIRUBIN,DIRECT 0.2 MG/DL (0.0-0.2); CK-MB VALUE MASS < 1.0 NG/ML (<3.6); CPK CREATINE PHOSPHOKINASE 66 U/L (39-308); LIPASE 51 U/L (73-393); MB/CK RELATIVE INDEX 1.52 (< OR =4); TOTAL PROTEIN 7.2 GM/DL (6.4-8.2); TROPONIN I < 0.02 NG/ML (< 0.10)
[2020-10-30] MEDS ORDERED: ONDA4TAB6 PO (15:10)
[2020-10-30 15:58] VITALS: BP 175/85
--- NOTE | 2020-10-31 05:23 | ECGEPIP ---
[facility] - ED Test Date: 2020-10-30 Pat Name: CHAPO ANDERSONJOSUE Department: Room: - Gender: Male Phone Manager: VC : 1960 Requested By: Jonathan Delong Order Number: [id number] Reading MD: Haseeb Ibarra Measurements Intervals [place] Rate: 79 P: 44 WY: 156 QRS: -16 QRSD: 94 T: 112 QT: 402 QTc: 460 Interpretive Statements Normal sinus rhythm Inferior Q waves of uncertain significance Nonspecific ST-T wave abnormalities Prolonged QT Similar to tracing done 10-23-20 Electronically Signed on 10-31-2020 5:23:13 EDT by Haseeb Ibarra
== END 2020-10-30 16:02 | disposition home or self-care (01) ==
LOC: M ED 11:40 → EDBD 11:40 → M ED 16:02
DX: R10.9 Unspecified abdominal pain (principal); R11.2 Nausea with vomiting, unspecified; I11.0 Hypertensive heart disease with heart failure; I50.9 Heart failure, unspecified; E78.5 Hyperlipidemia, unspecified; F33.9 Major depressive disorder, recurrent, unspecified; N40.0 Benign prostatic hyperplasia without lower urinary tract symptoms; Z86.711 Personal history of pulmonary embolism; Z95.5 Presence of coronary angioplasty implant and graft; Z79.01 Long term (current) use of anticoagulants
CPT/HCPCS: 71045; 80047; 80076; 82550; 82553; 83690; 84484; 85025; 93005; 93041; 94760; 96374; 99285; J1630

== ENCOUNTER 2021-01-21 09:26 | Emergency (ER) | payer OTHER ==
[~2021-01-21] VITALS: Ht 182.9 cm; Wt 129.4 kg
[~2021-01-21 09:26] MED LIST changes: +ONDA4TAB6 PO
[2021-01-21 11:03] LABS: BASO # 0.1 10^3/uL (0.0-0.2); BASO % 0.8 % (0.0-1.0); EOS # 0.3 10^3/uL (0.0-0.5); EOS % 2.7 % (0.0-3.0); HEMATOCRIT 43.9 % (42.0-52.0); HEMOGLOBIN 15.2 g/dl (13.5-17.5); LYMPH # 2.6 10^3/uL (1.5-5.0); LYMPH % 25.8 % (24.0-44.0); MEAN CORPUSCULAR HEMOGLOBIN 30.4 pg (27.0-33.0); MEAN CORPUSCULAR HGB CONC 34.6 g/dl (32.0-36.5); MEAN CORPUSCULAR VOLUME 87.8 fl (80.0-96.0); MONO # 0.7 10^3/uL (0.0-0.8); MONO % 7.4 % (2.0-8.0); NEUTROPHILS # 6.2 10^3/uL (1.5-8.5); NEUTROPHILS % 62.6 % (36.0-66.0); PLATELET COUNT, AUTOMATED 233 10^3/uL (150-450); WHITE BLOOD COUNT 9.9 10^3/uL (4.0-10.0)
[2021-01-21] MEDS ORDERED: ONDANSETRON 4MG/2ML VIAL IV ONE (11:05)
[2021-01-21] MEDS ORDERED: NS 1,000 ML IV ONE (11:05)
[2021-01-21 11:23] LABS: ALBUMIN 4.4 GM/DL (3.2-5.2); ALT/SGPT 40 U/L (12-78); BILIRUBIN,DIRECT 0.4 MG/DL (0.0-0.2); BILIRUBIN,TOTAL 1.8 MG/DL (0.2-1.0); BLOOD UREA NITROGEN 13 MG/DL (7-18); CALCIUM LEVEL 9.6 MG/DL (8.5-10.1); CARBON DIOXIDE LEVEL 24 MEQ/L (21-32); CHLORIDE LEVEL 109 MEQ/L (98-107); CREATININE FOR GFR 0.94 MG/DL (0.70-1.30); GLOMERULAR FILTRATION RATE > 60.0 (>56); GLUCOSE, FASTING 146 MG/DL (70-100); LIPASE 55 U/L (73-393); POTASSIUM SERUM 4.3 MEQ/L (3.5-5.1); SODIUM LEVEL 140 MEQ/L (136-145); TOTAL PROTEIN 8.1 GM/DL (6.4-8.2)
[2021-01-21] MEDS ORDERED: MORPHINE 4 MG/ML 1ML VIAL/SYRINGE (J2270) IV ONE (11:55)
[2021-01-21] MEDS ORDERED: PANTOPRAZOLE 40MG VIAL (C9113 PER 1) IV ONE (11:55)
[2021-01-21] MEDS ORDERED: ISOVUE-370 76% 100ML VIAL As Ordered ONE (12:04)
[2021-01-21] MEDS ORDERED: DICYCLOMINE 10 MG CAP PO ONE (13:00)
[2021-01-21] MEDS ORDERED: DICY10CA13 PO (14:30)
[2021-01-21] MEDS ORDERED: ONDA4TAB6 PO (14:30)
[2021-01-21 14:34] VITALS: BP 180/90
[2021-01-21 14:58] LABS: APPEARANCE, URINE CLEAR (CLEAR); BACTERIA, URINE AUTO NEGATIVE (NEGATIVE); BILIRUBIN, URINE AUTO NEGATIVE (NEGATIVE); BLOOD, URINE BLOOD NEGATIVE (NEGATIVE); COLOR, URINE YELLOW (YELLOW); GLUCOSE, URINE (UA) AUTO NEGATIVE (NEGATIVE); KETONE, URINE AUTO NEGATIVE (NEGATIVE); LEUKOCYTE ESTERASE, URINE AUTO NEGATIVE (NEGATIVE); MUCUS, URINE SMALL (NEGATIVE); NITRITE, URINE AUTO NEGATIVE (NEGATIVE); PROTEIN, URINE AUTO NEGATIVE (NEGATIVE); RBC, URINE AUTO 1 /HPF (0-3); SPECIFIC GRAVITY URINE AUTO 1.053 (1.002-1.035); SQUAMOUS EPITHELIAL CELL UR AU 0 /HPF (0-6); UROBILINOGEN, URINE AUTO 0.2 mg/dL (0.0-2.0); WBC, URINE AUTO 1 /HPF (0-3)
== END 2021-01-21 14:43 | disposition home or self-care (01) ==
LOC: M ED 09:26
DX: I10 Essential (primary) hypertension (principal); E11.9 Type 2 diabetes mellitus without complications; Z79.899 Other long term (current) drug therapy; Z79.82 Long term (current) use of aspirin; Z79.01 Long term (current) use of anticoagulants; Z88.8 Allergy status to other drugs, medicaments and biological substances; F17.210 Nicotine dependence, cigarettes, uncomplicated
CPT/HCPCS: 74177; 80048; 80076; 81001; 83690; 85025; 96361; 96374; 96375; 99284; C9113; J2270; J2405; Q9967

== ENCOUNTER 2021-03-26 20:08 | Inpatient (IN) | payer OTHER ==
[~2021-03-26] VITALS: Ht 182.9 cm; Wt 129.5 kg
[~2021-03-26 20:08] MED LIST changes: +DICY10CA13 PO
--- OUTSIDE RECORDS SUMMARY | 2021-03-26 20:15 | CCD ---
Author Author [facility] Organization [facility] Address Unknown Phone Unavailable Care Team Providers Care Bowling Ball Grader Name Role Phone Sharad Haddadnzie Unavailable PROBLEMS Type Condition ICD9-CM Code WKS14-FK Code Onset Dates Condition S tatus W/U Status Risk SNOMED Code Notes Problem History of pulmonary embolism Z86.711 Active confir med 058508159 Problem Essential hypertension I10 Active confirmed 12312894 Problem Controlled type 2 diabetes m ellitus without complication, without long- term current use of insulin E11.9 Active confirmed 31 0568007 Problem Benign prostatic hyperplasia without lower urina ry tract symptoms N40.0 Active confirmed 182797370 Problem Coronary artery disease 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 I25.10 Active confirmed 226164 [id number] ALLERGIES Allergen (clinical drug ingredient) Drug/Non Drug Allergy do cumented on EMR Reaction Allergy Type Onset Date Status Flexeril Hyper/"On Edge" Drug Allergy Active Procardia Angina Drug Allergy Active Compazine Hyper/"On Edge" Drug Allergy Active ENCOUNTERS from 1960 to 2021-01-24 Encounter Location Date Provider Diagnosis [facility] [address] [facility] [phone] [place] [address] Dec, Iris Haddad Essential hypertension I10 ; Encounter to establish care Z76.89 ; Controlled type 2 diabetes mellitus without complication, without long-term current use of insulin E11.9 ; Screening for hyperlipidemia Z13.220 ; Benign prostatic hyperplasia without lower urinary tract symptoms N40.0 ; Coronary artery disease involving yocha dehe coronary artery of yocha dehe heart without angina pectoris I25.10 ; History of pulmonary embolism Z86.711 and Acute epigastric pain R10.13 IMMUNIZATIONS No Information SOCIAL HISTORY Tobacco Use: Social History Observation Description Date Details (start date - stop date) Current Smoker Sex Assigned At : Social History Observation Description Sex Assigned At Unknown Education: Question Answer Notes Level of Education: College Audit Question Answer Notes Total Score: 6 Interpretation: Alcohol Education Language: Question Answer Notes Languages spoken: Slovak Roman Catholic: Question Answer Notes Roman Catholic 03 Church Domestic Violence: Question Answer Notes Status: Sexual Hx: Question Answer Notes Had sex in the last 12 months (vaginal, oral, or anal)? No Have you ever had an STD? No Drug and Alcohol Question Answer Notes Total Score: 0 Interpretation: No problems reported Alcohol Screening: Question Answer Notes Did you have a drink containing alcohol in the past year? Ye s Points 7 Interpretation Positive How often did you have six or more drinks on one occas ion in the past year? Weekly (3 points) How many drinks did you have on a typica l day when you were drinking in the past year? 5 or 6 (2 points) How often did you have a drink containing alcohol in t he past year? Two to four times a month (2 points) BMI Care Goal Follow-Up Question Answer Notes Above Normal BMI Follow-Up Giving encouragement to exercise Tobacco Use: Question Answer Notes Are you a: current smoker Smoking Cessation Information Given 01/19/2021 Patient counseled on the dangers of tobacco use and urged to quit: 01/19/2021 How many cigarettes a day do you smoke? 6-10 1/2 ppd Are you interested in quitting? Ready to quit REASON FOR REFERRAL No Information VITAL SIGNS Weight 285 lbs Dec, Weight-kg 129.28 kg Dec, Height 72 in Dec, BMI 38.65 kg/m2 Dec, Heart Rate 69 /min Dec, Respiratory Rate 18 /min Dec, Temperature 96.6 degrees Fahrenheit Dec, Oximetry 99 Dec, Blood pressure systolic 178 mm Hg Dec, Blood pressure diastolic 88 mm Hg Dec, MEDICATIONS Medication SIG (Take, Route, Frequency, Duration) Notes Start Da te End Date Status Doxycycline Monohydrate 100 MG 1 capsule Orally every 12 hrs for 14 days Dec, Not-Taking amLODIPine Besylate 5 MG 1 tablet Orally Once a day Active Tamsulosin HCl 0.4 MG 1 capsule Orally Once a day for 30 day(s) Active Vitamin D3 25 MCG (1000 UT) 1 capsule Orally Once a day for 30 day(s) Active Folic Acid 1 MG 1 tablet Orally Once a day for 30 day(s) Active Vitamin B12 500 MCG 1 tablet Orally Once a day for 30 day(s) Active predniSONE 10 MG 4 tabs qday x 3 , 3 tab qday x 3 , 2 tabs qday x 3 , 1 tab qday x 3 days Orally as directed for 12 days Dec, Not-Taking Carvedilol 25 MG 1 tablet with food Orally Twice a day for 30 day(s) Active Gabapentin 600 MG 1 capsule Orally tid Active Eliquis 5 MG 1 tablet Orally BID Act tatianna Atorvastatin Calcium 80 MG 1 tablet Orally Once a day for 30 day(s) Active metFORMIN HCl 1000 MG 1 tablet with a meal Orally BID Active Zoloft 50 MG 1 tablet Orally Once a day for 30 day(s) Not-Taking Lisinopril 40 MG 1 tablet Orally Once a day Active Aspirin 81 MG 1 tablet Orally Once a day for 30 day(s) Active Coumadin 2.5 MG 1 tablet Orally Once a day for 30 day(s) Not-Taking PROCEDURES No Information RESULTS No Results REASON FOR VISIT TO [facility] MEDICAL (GENERAL) HISTORY Type Description Date Medical History Type 2 Diabetes Medical History Hypertension Surgical History Left Knee x6 Surgical History Right Knee x5 Surgical History Spinal Fusion (pt reports failed) 2003 Surgical History Neck (put screws in) 2014 Surgical History Pacemaker 05/2014 Surgical History Removed Pacemaker due to infection Hospitalization History "Stomach Issues" - [facility] 2020 Hospitalization History Infection of pacemaker - [facility] 2020 Goals Section No Information Health Concerns No Information MEDICAL EQUIPMENT No Information MENTAL STATUS No Information FUNCTIONAL STATUS No Information ASSESSMENTS Encounter Date Diagnosis Assessment Notes Treatment Notes Treatm ent Clinical Notes Dec, Essential hypertension (ICD-10 - I10) Called [facility] ED, gave automation control integrator report. Discussed importance of CT w/ pt and ensuring hydration status, priority is further evaluation at ED. Pt to drive to ED now w/ "neighbor lady." Hypertensive today, however given above, uncertain if related, will re-visit at follow up. Plan DM2 visit at [facility], did order labs, although w/ ED visit will likely be evaluated. BPH diagnosis pulled from previous [facility] admission 10/30/2020, patient poor historian, unable to complete med rec w/ accuracy, also pulled from hospital admission. Uncertain cardiac hx, urgent referral for further evaluation. Recent EKG during admission showed NSR. Suspect will require echo and stress test. Continue anti-coagulation w/ eliquis, given DVT and PE hx will be lifetime candidate for anti-coagulation. 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 Discussed importance of CT w/ pt and ensuring hydration status, priority is further evaluation at ED. Pt to drive to ED now w/ "neighbor lady." Hypertensive today, however given above, uncertain if related, will re-visit at follow up. Plan DM2 visit at [facility], did order labs, although w/ ED visit will likely be evaluated. BPH diagnosis pulled from previous [facility] admission 10/30/2020, patient poor historian, unable to complete med rec w/ accuracy, also pulled from hospital admission. Uncertain cardiac hx, urgent referral for further evaluation. Recent EKG during admission showed NSR. Suspect will require echo and stress test. Continue anti- coagulation w/ eliquis, given DVT and PE hx will be lifetime candidate for anti-coagulation. Encounter to establish care see notes ab ove Controlled type 2 diabetes mellitus with out complication, without long-term current use of insulin see notes above Screening for hyperlipidemia see notes a lelo Benign prostatic hyperplasia without lower urinary tract sym ptoms see notes above Coronary artery disease involving yocha dehe coronary artery of yocha dehe heart without angina pectoris see notes above History of pulmonary embolism see notes above Acute epigastric pain see notes above Future Test Test Name Order Date Comprehensive Metabolic Profile (CMP) 20210119 CBC with Auto Differential 20210119 HEMOGLOBIN A1c 20210119 MICROALBUMIN RANDOM 20210119 LIPID PANEL (CARDIAC RISK) 20210119 Next Appt Details 3-6 months (DM2 visit) Reason: Provider Name:Iris Haddad, 08:00:00 AM, [address] [facility] [facility], , [place], [address], Insurance Providers Payer Name Payer Address Payer Phone Insured Name Patient Relati onship to Insured Coverage Start Date Coverage End Date [employer] HMO [address] [address] [facility] [id number] ALEXANDRA WERNER,CHAPO Peck self
--- OUTSIDE RECORDS SUMMARY | 2021-03-26 20:19 | CCD ---
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 Name Role Phone Rolan COTA MD Unavailable Unavailable Rolan COTA MD Unavailable Unavailable Rolan COTA MD Unavailable Unavailable Rolan COTA MD Unavailable Unavailable Rolan COTA MD Unavailable Unavailable MCELHERAN, WHIT PA Unavailable Unavailable MCELHERAN, WHIT PA Unavailable Unavailable MCELHERAN, WHIT PA Unavailable Unavailable MCELHERAN, WHIT PA Unavailable Unavailable MCELHERAN, WHIT PA Unavailable Unavailable MCELHERAN, WHIT PA Unavailable Unavailable MCELHERAN, WHIT PA Unavailable Unavailable MCELHERAN, WHIT PA Unavailable Unavailable MCELHERAN, WHIT PA Unavailable Unavailable MCELHERAN, WHIT PA Unavailable Unavailable MCELHERAN, WHIT PA Unavailable Unavailable MCELHERAN, WHIT PA Unavailable Unavailable MCELHERAN, WHIT PA Unavailable Unavailable MCELHERAN, WHIT PA Unavailable Unavailable MCELHERAN, WHIT PA Unavailable Unavailable MCELHERAN, WHIT PA Unavailable Unavailable MCELHERAN, WHIT PA Unavailable Unavailable MCELHERAN, WHIT PA Unavailable Unavailable MCELHERAN, WHIT PA Unavailable Unavailable MCELHERAN, WHIT PA Unavailable Unavailable MCELHERAN, WHIT PA Unavailable Unavailable MCELHERAN, WHIT PA Unavailable Unavailable MCELHERAN, WHIT PA Unavailable Unavailable MCELHERAN, WHIT PA Unavailable Unavailable MCELHERAN, WHIT PA Unavailable Unavailable MCELHERAN, WHIT PA Unavailable Unavailable MCELHERAN, WHIT PA Unavailable Unavailable MCELHERAN, WHIT PA Unavailable Unavailable MCELHERAN, WHIT PA Unavailable Unavailable Mark, Ileana Ledesma MD Unavailable Unavailable Mark, Ileana Ledesma MD Unavailable Unavailable Mark, Ileana Ledesma MD Unavailable Unavailable Mark, Ileana Ledesma MD Unavailable Unavailable Mark, Ileana Ledesma MD Unavailable Unavailable Mark, Ileana Ledesma MD Unavailable Unavailable Mark, Ileana Ledesma MD Unavailable Unavailable Mark, Ileana Ledesma MD Unavailable Unavailable Mark, Ileana Ledesma MD Unavailable Unavailable Mark, Ileana Ledesma MD Unavailable Unavailable Mark, Ileana Ledesma MD Unavailable Unavailable Mark, Ileana Ledesma MD Unavailable Unavailable Mark, Ileana Ledesma MD Unavailable Unavailable Mark, Ileana Ledesma MD Unavailable Unavailable Mark, Ileana Ledesma MD Unavailable Unavailable Arline Gonzalez MD Unavailable Unavailable Arline Gonzalez MD Unavailable Unavailable Arline Gonzalez MD Unavailable Unavailable Arline Gonzalez MD Unavailable Unavailable Arline Gonzalez MD Unavailable Unavailable Arline Gonzalez MD Unavailable Unavailable August FERREIRA MD Unavailable Unavailable KELBERAugust DUPREE MD Unavailable Unavailable KELBERAugust DUPREE MD Unavailable Unavailable KELBERMANAugust MD Unavailable Unavailable KELBERMANAugust MD Unavailable Unavailable KELBERMANAugust MD Unavailable Unavailable KELBERMANAugust MD Unavailable Unavailable KELBERMANAugust MD Unavailable Unavailable KELBERMANAugust MD Unavailable Unavailable KELBERMANAugust MD Unavailable Unavailable KELBERMANAugust MD Unavailable Unavailable KELBERMANAugust MD Unavailable Unavailable KELBERMANAugust MD Unavailable Unavailable KELBERMANAugust MD Unavailable Unavailable KELBERMANAugust MD Unavailable Unavailable KELBERMANAugust MD Unavailable Unavailable KELBERMANAugust MD Unavailable Unavailable KELBERMANAugust MD Unavailable Unavailable KELBERMANAugust MD Unavailable Unavailable KELBERMANAugust MD Unavailable Unavailable August FERREIRA MD Unavailable Unavailable KELBERMANAugust MD Unavailable Unavailable KELBERMANAugust MD Unavailable Unavailable KELBERMANAugust MD Unavailable Unavailable KELBERMANAugust MD Unavailable Unavailable KELBERMANAugust MD Unavailable Unavailable KELBERMANAugust MD Unavailable Unavailable KELBERMANAugust MD Unavailable Unavailable KELBERMANAugust MD Unavailable Unavailable KELBERMANAugust MD Unavailable Unavailable KELBERMANAugust MD Unavailable Unavailable KELBERMANAugust MD Unavailable Unavailable KELBERMANAugust MD Unavailable Unavailable KELBERMANAugust MD Unavailable Unavailable KELBERMANAugust MD Unavailable Unavailable KELBERMANAugust MD Unavailable Unavailable KELBERMANAugust MD Unavailable Unavailable KELBERMANAugust MD Unavailable Unavailable FARHATBERAugust DUPREE MD Unavailable Unavailable FARHATBERAugust DUPREE MD Unavailable Unavailable August FERREIRA MD Unavailable Unavailable FARHATBERMANAugust MD Unavailable Unavailable KELBERMANAugust MD Unavailable Unavailable FARHATBERAugust DUPREE MD Unavailable Unavailable August FERREIRA MD Unavailable Unavailable August FERREIRA MD Unavailable Unavailable August FERREIRA MD Unavailable Unavailable August FERREIRA MD Unavailable Unavailable August FERREIRA MD Unavailable Unavailable August FERREIRA MD Unavailable Unavailable Mustizer, E Nicolle PA Unavailable Unavailable Mustizer, E Nicolle PA Unavailable Unavailable Mustizer, E Nicolle PA Unavailable Unavailable Mustizer, E Nicolle PA Unavailable Unavailable Mustizer, E Nicolle PA Unavailable Unavailable Mustizer, E Nicolle PA Unavailable Unavailable [facility] [place] [facility] Unavailable Unavailable Rolan ROCKWELL MD Unavailable Unavailable Rolan ROCKWELL MD Unavailable Unavailable Rolan ROCKWELL MD Unavailable Unavailable Rolan ROCKWELL MD Unavailable Unavailable Rolan ROCKWELL MD Unavailable Unavailable Rolan ROCKWELL MD Unavailable Unavailable Rolan ROCKWELL MD Unavailable Unavailable Rolan ROCKWELL MD Unavailable Unavailable Rolan ROCKWELL MD Unavailable Unavailable Rolan ROCKWELL MD Unavailable Unavailable Rolan ROCKWELL MD Unavailable Unavailable Rolan ROCKWELL MD Unavailable Unavailable Rolan ROCKWELL MD Unavailable Unavailable Rolan ROCKWELL MD Unavailable Unavailable Rolan ROCKWELL MD Unavailable Unavailable Rolan ROCKWELL MD Unavailable Unavailable Rolan ROCKWELL MD Unavailable Unavailable Rolan ROCKWELL MD Unavailable Unavailable Rolan ROCKWELL MD Unavailable Unavailable Rolan ROCKWELL MD Unavailable Unavailable Rolan ROCKWELL MD Unavailable Unavailable Rolan ROCKWELL MD Unavailable Unavailable Rolan ROCKWELL MD Unavailable Unavailable Rolan ROCKWELL MD Unavailable Unavailable Rolan ROCKWELL MD Unavailable Unavailable Rolan ROCKWELL MD Unavailable Unavailable Rolan ROCKWELL MD Unavailable Unavailable Rolan ROCKWELL MD Unavailable Unavailable Rolan ROCKWELL MD Unavailable Unavailable Rolan ROCKWELL MD Unavailable Unavailable Rolan ROCKWELL MD Unavailable Unavailable Rolan ROCKWELL MD Unavailable Unavailable Rolan ROCKWELL MD Unavailable Unavailable Rolan ROCKWELL MD Unavailable Unavailable Rolan ROCKWELL MD Unavailable Unavailable Rolan ROCKWELL MD Unavailable Unavailable Rolan ROCKWELL MD Unavailable Unavailable Rolan ROCKWELL MD Unavailable Unavailable Rolan ROCKWELL MD Unavailable Unavailable Rolan ROCKWELL MD Unavailable Unavailable Rolan ROCKWELL MD Unavailable Unavailable Rolan ROCKWELL MD Unavailable Unavailable Rolan ROCKWELL MD Unavailable Unavailable Rolan ROCKWELL MD Unavailable Unavailable Rolan ROCKWELL MD Unavailable Unavailable Rolan ROCKWELL MD Unavailable Unavailable LEIBELSPERGER, KD PA Unavailable Unavailable LEIBELSPERGER, KD PA Unavailable Unavailable LEIBELSPERGER, KD PA Unavailable Unavailable LEIBELSPERGER, KD PA Unavailable Unavailable LEIBELSPERGER, KD PA Unavailable Unavailable LEIBELSPERGER, KD PA Unavailable Unavailable LEIBELSPERGER, KD PA Unavailable Unavailable LEIBELSPERGER, KD PA Unavailable Unavailable LEIBELSPERGER, KD PA Unavailable Unavailable LEIBELSPERGER, KD PA Unavailable Unavailable LEIBELSPERGER, KD PA Unavailable Unavailable LEIBELSPERGER, KD PA Unavailable Unavailable LEIBELSPERGER, KD PA Unavailable Unavailable LEIBELSPERGER, KD PA Unavailable Unavailable LEIBELSPERGER, KD PA Unavailable Unavailable LEIBELSPERGER, KD PA Unavailable Unavailable LEIBELSPERGER, KD PA Unavailable Unavailable LEIBELSPERGER, KD PA Unavailable Unavailable LEIBELSPERGER, KD PA Unavailable Unavailable LEIBELSPERGER, KD PA Unavailable Unavailable LEIBELSPERGER, KD PA Unavailable Unavailable LEIBELSPERGER, KD PA Unavailable Unavailable LEIBELSPERGER, KD PA Unavailable Unavailable LEIBELSPERGER, KD PA Unavailable Unavailable LEIBELSPERGER, KD PA Unavailable Unavailable LEIBELSPERGER, DK PA Unavailable Unavailable [place], B Chilo MD Unavailable Unavailable [place], B Chilo MD Unavailable Unavailable [place], B Chilo MD Unavailable Unavailable [place], B Chilo MD Unavailable Unavailable [place], B Chilo MD Unavailable Unavailable [place], B Chilo MD Unavailable Unavailable [place], B Chilo MD Unavailable Unavailable [place], B Chilo MD Unavailable Unavailable [place], B Chilo MD Unavailable Unavailable [place], B Chilo MD Unavailable Unavailable [place], B Chilo MD Unavailable Unavailable [place], B Chilo MD Unavailable Unavailable Arline Flores MD Unavailable Unavailable Arline Flores MD Unavailable Unavailable Arline Flores MD Unavailable Unavailable Arline Flores MD Unavailable Unavailable Arline Flores MD Unavailable Unavailable Arline Flores MD Unavailable Unavailable Arline Flores MD Unavailable Unavailable Arline Flores MD Unavailable Unavailable Arline Flores MD Unavailable Unavailable Arline Flores MD Unavailable Unavailable Arline Flores MD Unavailable Unavailable Arline Flores MD Unavailable Unavailable Arline Flores MD Unavailable Unavailable Daniele Ledesma MD Unavailable Unavailable Daniele Ledesma MD Unavailable Unavailable Daniele Ledesma MD Unavailable Unavailable Daniele Ledesma MD Unavailable Unavailable Daniele Ledesma MD Unavailable Unavailable Daniele Ledesma MD Unavailable Unavailable Daniele Ledesma MD Unavailable Unavailable Daniele Ledesma MD Unavailable Unavailable Daniele Ledesma MD Unavailable Unavailable Daniele Ledesma MD Unavailable Unavailable Daniele Ledesma MD Unavailable Unavailable Daniele Ledesma MD Unavailable Unavailable Daniele Ledesma MD Unavailable Unavailable Daniele Ledesma MD Unavailable Unavailable Daniele Ledesma MD Unavailable Unavailable Daniele Ledesma MD Unavailable Unavailable Daniele Ledesma MD Unavailable Unavailable Daniele Ledesma MD Unavailable Unavailable Daniele Ledesma MD Unavailable Unavailable Ledesma, Daniele Penaloza MD Unavailable Unavailable Ledesma, Daniele Penaloza MD Unavailable Unavailable Ledesma, Daniele Penaloza MD Unavailable Unavailable Ledesma, Daniele Penaloza MD Unavailable Unavailable Ledesma, Daniele Penaloza MD Unavailable Unavailable Ledesma, Daniele Penaloza MD Unavailable Unavailable Ledesma, Daniele Penaloza MD Unavailable Unavailable Ledesma, Daniele Penaloza MD Unavailable Unavailable Ledesma, Daniele Penaloza MD Unavailable Unavailable Ledesma, Daniele Penaloza MD Unavailable Unavailable Ledesma, Daniele Penaloza MD Unavailable Unavailable Ledesma, Daniele Penaloza MD Unavailable Unavailable Ledesma, Daniele Penaloza MD Unavailable Unavailable Ledesma, Daniele Penaloza MD Unavailable Unavailable Ledesma, Daniele Penaloza MD Unavailable Unavailable Ledesma, Daniele Penaloza MD Unavailable Unavailable Ledesma, Daniele Penaloza MD Unavailable Unavailable Ledesma, Daniele Penaloza MD Unavailable Unavailable Ledesma, Daniele Penaloza MD Unavailable Unavailable Ledesma, Daniele Penaloza MD Unavailable Unavailable Ledesma, Daniele Penaloza MD Unavailable Unavailable Ledesma, Daniele Penaloza MD Unavailable Unavailable Ledesma, Daniele Penaloza MD Unavailable Unavailable Ledesma, Daniele Penaloza MD Unavailable Unavailable Ledesma, Daniele Penaloza MD Unavailable Unavailable Ledesma, Daniele Penaloza MD Unavailable Unavailable Ledesma, Daniele Penaloza MD Unavailable Unavailable Ledesma, Daniele Penaloza MD Unavailable Unavailable Ledesma, Daniele Penaloza MD Unavailable Unavailable Ledesma, Daniele Penaloza MD Unavailable Unavailable Ledesma, Daniele Penaloza MD Unavailable Unavailable Ledesma, Daniele Penaloza MD Unavailable Unavailable Ledesma, Daniele Penaloza MD Unavailable Unavailable Ledesma, Daniele Penaloza MD Unavailable Unavailable Ledesma, Daniele Penaloza MD Unavailable Unavailable Maring, Marvin PA Unavailable Unavailable Maring, Marvin PA Unavailable Unavailable Maring, Marvin PA Unavailable Unavailable Maring, Marvin PA Unavailable Unavailable Maring, Marvin PA Unavailable Unavailable Maring, Marvin PA Unavailable Unavailable Maring, Marvin PA Unavailable Unavailable Maring, Marvin PA Unavailable Unavailable Maring, Marvin PA Unavailable Unavailable Maring, Marvin PA Unavailable Unavailable Maring, Marvin PA Unavailable Unavailable Maring, Marvin PA Unavailable Unavailable Maring, Marvin PA Unavailable Unavailable Maring, Marvin PA Unavailable Unavailable Maring, Marvin PA Unavailable Unavailable Maring, Marvin PA Unavailable Unavailable Leeanna EDWARDSBETH MD Unavailable Unavailable PARSHALL, A JOSÉ MIGUEL MD Unavailable Unavailable PARSHALL, A JOSÉ MIGUEL MD Unavailable Unavailable PARSHALL, A JOSÉ MIGUEL MD Unavailable Unavailable PARSHALL, A JOSÉ MIGUEL MD Unavailable Unavailable PARSHALL, A JOSÉ MIGUEL MD Unavailable Unavailable PARSHALL, A JOSÉ MIGUEL MD Unavailable Unavailable PARSHALL, A JOSÉ MIGUEL MD Unavailable Unavailable PARSHALL, A JOSÉ MIGUEL MD Unavailable Unavailable PARSHALL, A JOSÉ MIGUEL MD Unavailable Unavailable PARSHALL, A JOSÉ MIGUEL MD Unavailable Unavailable PARSHALL, A JOSÉ MIGUEL MD Unavailable Unavailable PARSHALL, A JOSÉ MIGUEL MD Unavailable Unavailable PARSHALL, A JOSÉ MIGUEL MD Unavailable Unavailable PARSHALL, A JOSÉ MIGUEL MD Unavailable Unavailable PARSHALL, A JOSÉ MIGUEL MD Unavailable Unavailable PARSHALL, A JOSÉ MIGUEL MD Unavailable Unavailable PARSHALL, A JOSÉ MIGUEL MD Unavailable Unavailable PARSHALL, A JOSÉ MIGUEL MD Unavailable Unavailable PARSHALL, A JOSÉ MIGUEL MD Unavailable Unavailable PARSHALL, A JOSÉ MIGUEL MD Unavailable Unavailable PARSHALL, A JOSÉ MIGUEL MD Unavailable Unavailable PARSHALL, A JOSÉ MIGUEL MD Unavailable Unavailable PARSHALL, A JOSÉ MIGUEL MD Unavailable Unavailable PARSHALL, A JOSÉ MIGUEL MD Unavailable Unavailable PARSHALL, A JOSÉ MIGUEL MD Unavailable Unavailable PARSHALL, A JOSÉ MIGUEL MD Unavailable Unavailable PARSHALL, A JOSÉ MIGUEL MD Unavailable Unavailable PARSHALL, A JOSÉ MIGUEL MD Unavailable Unavailable PARSHALL, A JOSÉ MIGUEL MD Unavailable Unavailable PARSHALL, A JOSÉ MIGUEL MD Unavailable Unavailable PARSHALL, A JOSÉ MIGUEL MD Unavailable Unavailable PARSHALL, A JOSÉ MIGUEL MD Unavailable Unavailable PUC, Rolan OLEARY MD Unavailable Unavailable PUC, Rolan OLEARY MD Unavailable Unavailable PUC, Rolan OLEARY MD Unavailable Unavailable PUC, Rolan OLEARY MD Unavailable Unavailable PUC, Rolan OLEARY MD Unavailable Unavailable LUDMILA PETERSON, MICHELLE Unavailable Unavailable Lukasz, Joelle Miles MD Unavailable Unavailable Lukasz, Joelle Miles MD Unavailable Unavailable Lukasz, Joelle Miles MD Unavailable Unavailable Lukasz, Joelle Miles MD Unavailable Unavailable Lukasz, Joelle Miles MD Unavailable Unavailable Lukasz, Joelle Miles MD Unavailable Unavailable Lukasz, Joelle Miles MD Unavailable Unavailable Lukasz, Joelle Miles MD Unavailable Unavailable Lukasz, Joelle Miles MD Unavailable Unavailable Lukasz, Joelle Miles MD Unavailable Unavailable Lukasz, Joelle Miles MD Unavailable Unavailable Lukasz, Joelle Miles MD Unavailable Unavailable Lukasz, Joelle Miles MD Unavailable Unavailable Lukasz, Joelle Miles MD Unavailable Unavailable Lukasz, R Jd MD Unavailable Unavailable Lukasz, R Jd MD Unavailable Unavailable Lukasz, R Jd MD Unavailable Unavailable Lukasz, R Jd MD Unavailable Unavailable Lukasz, R Jd MD Unavailable Unavailable Lukasz, R Jd MD Unavailable Unavailable Lkuasz, R Jd MD Unavailable Unavailable Lukasz, R Jd MD Unavailable Unavailable Lukasz, R Jd MD Unavailable Unavailable Lukasz, R Jd MD Unavailable Unavailable Lukasz, R Jd MD Unavailable Unavailable Lukasz, R Jd MD Unavailable Unavailable Lukasz, R Jd MD Unavailable Unavailable Lukasz, R Jd MD Unavailable Unavailable Lukasz, R Jd MD Unavailable Unavailable Lukasz, R Jd MD Unavailable Unavailable Lukasz, R Jd MD Unavailable Unavailable Lukasz, R Jd MD Unavailable Unavailable Lukasz, R Jd MD Unavailable Unavailable Lukasz, R Jd MD Unavailable Unavailable Lukasz, R Jd MD Unavailable Unavailable Lukasz, R Jd MD Unavailable Unavailable Lukasz, R Jd MD Unavailable Unavailable Lukasz, R Jd MD Unavailable Unavailable Lukasz, R Jd MD Unavailable Unavailable Lukasz, R Jd MD Unavailable Unavailable Lukasz, R Jd MD Unavailable Unavailable Lukasz, R Jd MD Unavailable Unavailable Lukasz, R Jd MD Unavailable Unavailable Lukasz, R Jd MD Unavailable Unavailable Lukasz, R Jd MD Unavailable Unavailable Lukasz, R Jd MD Unavailable Unavailable Lukasz, R Jd MD Unavailable Unavailable Lukasz, R Jd MD Unavailable Unavailable Lukasz, R Jd Unavailable Unavailable Lukasz, R Jd Unavailable Unavailable Lukasz, R Jd MD Unavailable Unavailable Lukasz, R Jd MD Unavailable Unavailable Lukasz, R Jd MD Unavailable Unavailable Lukasz, R Jd MD Unavailable Unavailable Lukasz, R Jd MD Unavailable Unavailable Lukasz, R Jd Unavailable Unavailable Lukasz, R Jd MD Unavailable Unavailable Lukasz, R Jd MD Unavailable Unavailable Lukasz, R Jd MD Unavailable Unavailable Lukasz, R Jd MD Unavailable Unavailable Lukasz, R Jd MD Unavailable Unavailable Lukasz, R Jd Unavailable Unavailable Lukasz, R Jd MD Unavailable Unavailable Lukasz, R Jd MD Unavailable Unavailable Lukasz, R Jd MD Unavailable Unavailable Lukasz, Joelle Jd MD Unavailable Unavailable Lukasz, R Jd MD Unavailable Unavailable Lukasz, R Jd MD Unavailable Unavailable Lukasz, R Jd MD Unavailable Unavailable Lukasz, R Jd MD Unavailable Unavailable Lukasz, R Jd MD Unavailable Unavailable Lukasz, R Jd MD Unavailable Unavailable Lukasz, R Jd MD Unavailable Unavailable Lukasz, R Jd MD Unavailable Unavailable Lukasz, R Jd MD Unavailable Unavailable Lukasz, R Jd MD Unavailable Unavailable Lukasz, R Jd MD Unavailable Unavailable Lukasz, R Jd MD Unavailable Unavailable Lukasz, R Jd MD Unavailable Unavailable [facility], [facility]IN[facility] Unavailable Unavailable Maribell, R Armaan Unavailable Unavailable Maribell, R Armaan Unavailable Unavailable Maribell, R Armaan Unavailable Unavailable Maribell, R Armaan Unavailable Unavailable Maribell, R Armaan Unavailable Unavailable Maribell, R Armaan Unavailable Unavailable Maribell, R Armaan Unavailable Unavailable Maribell, R Armaan Unavailable Unavailable Maribell, R Armaan Unavailable Unavailable Maribell, R Armaan Unavailable Unavailable Maribell, R Armaan Unavailable Unavailable Maribell, R Armaan Unavailable Unavailable Maribell, R Armaan Unavailable Unavailable Maribell, R Armaan Unavailable Unavailable Raul Magallon MD Unavailable Unavailable TURRIN, BANG Unavailable Unavailable TURRIN, BANG Unavailable Unavailable TURRIN, BANG Unavailable Unavailable TURRIN, BANG Unavailable Unavailable LEWIS, AFFAF MD Unavailable Unavailable LEWIS, AFFAF MD Unavailable Unavailable LEWIS, AFFAF MD Unavailable Unavailable LEWIS, AFFAF MD Unavailable Unavailable LEWIS, AFFAF MD Unavailable Unavailable LEWIS, AFFAF MD Unavailable Unavailable LEWIS, AFFAF MD Unavailable Unavailable LEWIS, AFFAF MD Unavailable Unavailable LEWIS, AFFAF MD Unavailable Unavailable LEWIS, AFFAF MD Unavailable Unavailable LEWIS, AFFAF MD Unavailable Unavailable LEWIS, AFFAF MD Unavailable Unavailable LEWIS, AFFAF MD Unavailable Unavailable LEWIS, AFFAF MD Unavailable Unavailable LEWIS, AFFAF MD Unavailable Unavailable LEWIS, AFFAF MD Unavailable Unavailable LEWIS, AFFAF MD Unavailable Unavailable LEWIS, AFFAF MD Unavailable Unavailable LEWIS, AFFAF MD Unavailable Unavailable PRICILA CISNEROS MD Unavailable Unavailable PRICILA CISNEROS MD Unavailable Unavailable PRICILA CISNEROS MD Unavailable Unavailable PRICILA CISNEROS MD Unavailable Unavailable PRICILA CISNEROS MD Unavailable Unavailable BIJUASSPRICILA AMBRIZ MD Unavailable Unavailable NAMASSPRICILA AMBRIZ MD Unavailable Unavailable BIJUASSPRICILA AMBRIZ MD Unavailable Unavailable BIJUASSIVAPRICILA ANTHONY MD Unavailable Unavailable NAMASSIVAPRICILA ANTHONY MD Unavailable Unavailable NAMASSIVADALTON ANTHONYAYAMEERA PETERSON Unavailable Unavailable NAMASSPRICILA AMBRIZ MD Unavailable Unavailable NAMASSIVADALTON ANTHONYAYANI Unavailable Unavailable NAMASSIVAYADALTONAYAMEERA PETERSON Unavailable Unavailable NAMASSIVAYADALTONAYANI MD Unavailable Unavailable NAMASSIVAYA, DALTONAYANI MD Unavailable Unavailable NAMASSIVAYADALTONAYANI Unavailable Unavailable NAMASSIVAYA, DALTONAYANI Unavailable Unavailable NAMASSIVAYADALTONAYANI Unavailable Unavailable NAMASSIVAYA, DALTONAYANI Unavailable Unavailable NAMASSIVAYA, DALTONAYANI MD Unavailable Unavailable NAMASSIVAYA, DALTONAYANI Unavailable Unavailable BIJUASSIVADALTON ANTHONYAYANI Unavailable Unavailable BIJUASSDALTON AMBRIZAYANI Unavailable Unavailable BIJUASSDALTON AMBRIZAYANI Unavailable Unavailable NAMASSIVAYA, DALTONAYANI MD Unavailable Unavailable YAHIR, ATULBHAI MUSLIM Unavailable Unavailable YAHIR, ATULBHAI MUSLIM Unavailable Unavailable YAHIR, ATULBHAI MUSLIM Unavailable Unavailable YAHIR, ATULBHAI MUSLIM Unavailable Unavailable YAHIR, ATULBHAI MUSLIM Unavailable Unavailable YAHIR, ATULBHAI MUSLIM Unavailable Unavailable YAHIR, ATULBHAI MUSLIM Unavailable Unavailable YAHIR, ATULBHAI MUSLIM Unavailable Unavailable YAHIR, ATULBHAI MUSLIM Unavailable Unavailable YAHIR, ATULBHAI MUSLIM Unavailable Unavailable YAHIR, ATULBHAI MUSLIM Unavailable Unavailable YAHIR, ATULBHAI MUSLIM Unavailable Unavailable YAHIR, ATULBHAI MUSLIM Unavailable Unavailable YAHIR, ATULBHAI MUSLIM Unavailable Unavailable YAHIR, ATULBHAI MUSLIM Unavailable Unavailable YAHIR, ATULBHAI MUSLIM Unavailable Unavailable YAHIR, ATULBHAI MUSLIM Unavailable Unavailable YAHIR, ATULBHAI MUSLIM Unavailable Unavailable YAHIR, ATULBHAI MUSLIM Unavailable Unavailable YAHIR, ATULBHAI MUSLIM Unavailable Unavailable YAHIR, ATULBHAI MUSLIM Unavailable Unavailable YAHIR, ATULBHAI MUSLIM Unavailable Unavailable YAHIR, ATULBHAI MUSLIM Unavailable Unavailable Ez MOON MD Unavailable Unavailable Ez MOON MD Unavailable Unavailable Ez MOON MD Unavailable Unavailable Ez MOON MD Unavailable Unavailable Ez MOON MD Unavailable Unavailable Ez MOON MD Unavailable Unavailable Ez MOON MD Unavailable Unavailable Ez MOON MD Unavailable Unavailable Ez MOON MD Unavailable Unavailable Ez MOON MD Unavailable Unavailable Ez MOON MD Unavailable Unavailable Ez MOON MD Unavailable Unavailable Ez MOON MD Unavailable Unavailable Ez MOON MD Unavailable Unavailable Ez MOON MD Unavailable Unavailable Ez MOON MD Unavailable Unavailable Ez MOON MD Unavailable Unavailable Ez MOON MD Unavailable Unavailable Ez MOON MD Unavailable Unavailable Ez MOON MD Unavailable Unavailable Ez MOON MD Unavailable Unavailable Ez MOON MD Unavailable Unavailable Ez MOON MD Unavailable Unavailable Ez MOON MD Unavailable Unavailable Ez MOON MD Unavailable Unavailable Ez MOON MD Unavailable Unavailable Ez MOON MD Unavailable Unavailable Ez MOON MD Unavailable Unavailable Ez MOON MD Unavailable Unavailable Ez MOON MD Unavailable Unavailable Ez MOON MD Unavailable Unavailable Ez MOON MD Unavailable Unavailable Ez MOON MD Unavailable Unavailable Ez MOON MD Unavailable Unavailable Ez MOON MD Unavailable Unavailable Ez MOON MD Unavailable Unavailable Ez MOON MD Unavailable Unavailable Ez MOON MD Unavailable Unavailable Ez MOON MD Unavailable Unavailable Ez MOON MD Unavailable Unavailable Ez MOON MD Unavailable Unavailable Ez MOON MD Unavailable Unavailable Ez MOON MD Unavailable Unavailable Ez MOON MD Unavailable Unavailable Ez MOON MD Unavailable Unavailable Ez MOON MD Unavailable Unavailable Ez MOON MD Unavailable Unavailable Ez MOON MD Unavailable Unavailable Ez MOON MD Unavailable Unavailable Mika Shaffer MD Unavailable Unavailable Drois DUMAS MD Unavailable Unavailable Doris DUMAS MD Unavailable Unavailable Doris DUMAS MD Unavailable Unavailable Doris DUMAS MD Unavailable Unavailable Doris DUMAS MD Unavailable Unavailable Doris DUMAS MD Unavailable Unavailable Doris DUMAS MD Unavailable Unavailable Doris DUMAS MD Unavailable Unavailable Doris DUMAS MD Unavailable Unavailable Doris DUMAS MD Unavailable Unavailable Doris DUMAS MD Unavailable Unavailable Doris DUMAS MD Unavailable Unavailable Doris DUMAS MD Unavailable Unavailable Doris DUMAS MD Unavailable Unavailable Doris DUMAS MD Unavailable Unavailable Doris DUMAS MD Unavailable Unavailable Doris DUMAS MD Unavailable Unavailable Doris DUMAS MD Unavailable Unavailable Doris DUMAS MD Unavailable Unavailable Doris DUMAS MD Unavailable Unavailable Doris DUMAS MD Unavailable Unavailable Doris DUMAS MD Unavailable Unavailable Doris DUMAS MD Unavailable Unavailable Doris DUMAS MD Unavailable Unavailable Doris DUMAS MD Unavailable Unavailable Doris DUMAS MD Unavailable Unavailable Doris DUMAS MD Unavailable Unavailable Doris DUMAS MD Unavailable Unavailable Doris DUMAS MD Unavailable Unavailable Doris DUMAS MD Unavailable Unavailable Doris DUAMS MD Unavailable Unavailable Doris DUMAS MD Unavailable Unavailable Doris DUMAS MD Unavailable Unavailable Doris DUMAS MD Unavailable Unavailable Doris DUMAS MD Unavailable Unavailable Doris DUMAS MD Unavailable Unavailable Doris DUMAS MD Unavailable Unavailable Doris DUMAS MD Unavailable Unavailable HARRY, MARCK DO Unavailable Unavailable HARRY, MARCK DO Unavailable Unavailable HARRY, MARCK DO Unavailable Unavailable HARRY, MARCK DO Unavailable Unavailable HARRY, MARCK DO Unavailable Unavailable HARRY, MARCK DO Unavailable Unavailable HARRY, MARCK DO Unavailable Unavailable HARRY, MARCK DO Unavailable Unavailable HARRY, MARCK DO Unavailable Unavailable HARRY, MARCK DO Unavailable Unavailable HARRY, MARCK DO Unavailable Unavailable HARRY, MARCK DO Unavailable Unavailable HARRY, MARCK DO Unavailable Unavailable HARRY, MARCK DO Unavailable Unavailable HARRY, MARCK DO Unavailable Unavailable Goldiner, Lev Unavailable Unavailable Goldiner, Lev Unavailable Unavailable Goldiner, Lev Unavailable Unavailable Goldiner, Lev Unavailable Unavailable Goldiner, Lev Unavailable Unavailable Goldiner, Lev Unavailable Unavailable Goldiner, Lev Unavailable Unavailable Goldiner, Lev Unavailable Unavailable Goldiner, Lev Unavailable Unavailable Goldiner, Lev Unavailable Unavailable Goldiner, Lev Unavailable Unavailable Goldiner, Lev Unavailable Unavailable Goldiner, Lev Unavailable Unavailable Goldiner, Lev Unavailable Unavailable Goldiner, Lev Unavailable Unavailable Goldiner, Lev Unavailable Unavailable Goldiner, Lev Unavailable Unavailable Goldiner, Lev Unavailable Unavailable Goldiner, Lev Unavailable Unavailable Goldiner, Lev Unavailable Unavailable Goldiner, Lev Unavailable Unavailable Goldiner, Lev Unavailable Unavailable Goldiner, Lev Unavailable Unavailable Goldiner, Lev Unavailable Unavailable Goldiner, Lev Unavailable Unavailable Goldiner, Lev Unavailable Unavailable Goldiner, Lev Unavailable Unavailable Goldiner, Lev Unavailable Unavailable Goldiner, Lev Unavailable Unavailable Goldiner, Lev Unavailable Unavailable Goldiner, Lev Unavailable Unavailable Goldiner, Lev Unavailable Unavailable Goldiner, Lev Unavailable Unavailable Goldiner, Lev Unavailable Unavailable Goldiner, Lev Unavailable Unavailable Goldiner, Lev Unavailable Unavailable Goldiner, Lev Unavailable Unavailable Goldiner, Lev Unavailable Unavailable Goldiner, Lev Unavailable Unavailable Goldiner, Lev Unavailable Unavailable Goldiner, Lev Unavailable Unavailable Goldiner, Lev Unavailable Unavailable Goldiner, Lev Unavailable Unavailable Goldiner, Lev Unavailable Unavailable Goldiner, Lev Unavailable Unavailable Goldiner, Lev Unavailable Unavailable LATOSHA CHRISTOPHER MD Unavailable Unavailable LATOSHA CHRISTOPHER MD Unavailable Unavailable LATOSHA CHRISTOPHER MD Unavailable Unavailable LATOSHA CHRISTOPHER MD Unavailable Unavailable LATOSHA CHRISTOPHER MD Unavailable Unavailable LATOSHA CHRISTOPHER MD Unavailable Unavailable LATOSHA CHRISTOPHER MD Unavailable Unavailable LATOSHA CHRISTOPHER MD Unavailable Unavailable LATOSHA CHRISTOPHER MD Unavailable Unavailable LATOSHA CHRISTOPHER MD Unavailable Unavailable LATOSHA CHRISTOPHER MD Unavailable Unavailable LATOSHA CHRISTOPHER MD Unavailable Unavailable LATOSHA CHRISTOPHER MD Unavailable Unavailable LATOSHA CHRISTOPHER MD Unavailable Unavailable LATOSHA CHRISTOPHER MD Unavailable Unavailable Elisa Zuniga MD Unavailable Unavailable Elisa Zuniga MD Unavailable Unavailable Elisa Zuniga MD Unavailable Unavailable Elisa Zuniga MD Unavailable Unavailable Elisa Zuniga MD Unavailable Unavailable Elisa Zuniga MD Unavailable Unavailable Elisa Zuniga MD Unavailable Unavailable Elisa Zuniga MD Unavailable Unavailable Elisa Zuniga MD Unavailable Unavailable Elisa Zuniga MD Unavailable Unavailable Elisa Zuniga MD Unavailable Unavailable Elisa Zuniga MD Unavailable Unavailable Elisa Zuniga MD Unavailable Unavailable Elisa Zuniga MD Unavailable Unavailable Elisa Zuniga MD Unavailable Unavailable Elisa Zuniga MD Unavailable Unavailable Elisa Zuniga MD Unavailable Unavailable Elisa Zuniga MD Unavailable Unavailable Elisa Zuniga MD Unavailable Unavailable Elisa Zuniga MD Unavailable Unavailable Elisa Zuniga MD Unavailable Unavailable Elisa Zuniga MD Unavailable Unavailable Elisa Zuniga MD Unavailable Unavailable Elisa Zuniga MD Unavailable Unavailable Elisa Zuniga MD Unavailable Unavailable Elisa Zuniga MD Unavailable Unavailable Elisa Zuniga MD Unavailable Unavailable Elisa Zuniga MD Unavailable Unavailable Elisa Zuniga MD Unavailable Unavailable Elisa Zuniga MD Unavailable Unavailable Elisa Zuniga MD Unavailable Unavailable Elisa Zuniga MD Unavailable Unavailable Elisa Zuniga MD Unavailable Unavailable Elisa Zuniga MD Unavailable Unavailable Elisa Zuniga MD Unavailable Unavailable Elisa Zuniga MD Unavailable Unavailable Elisa Zuniga MD Unavailable Unavailable Elisa Zuniga MD Unavailable Unavailable Elisa Zuniga MD Unavailable Unavailable Hunsickyan M Unique PAS Unavailable Unavailable Hunsicker M Unique PAS Unavailable Unavailable CHRISTO LLAMAS MD Unavailable Unavailable MURIEL CHRISTO MD Unavailable Unavailable MURIEL, CHRISTO MD Unavailable Unavailable MURIEL, CHRISTO MD Unavailable Unavailable MURIEL, CHRISTO MD Unavailable Unavailable MURIEL, CHRISTO MD Unavailable Unavailable MURIEL, CHRISTO MD Unavailable Unavailable MURIEL, CHRISTO MD Unavailable Unavailable Vignarajah, Jayandra MD Unavailable Unavailable Vignarajah, Jayandra MD Unavailable Unavailable Vignarajah, Jayandra MD Unavailable Unavailable Vignarajah, Jayandra MD Unavailable Unavailable Vignarajah, Jayandra MD Unavailable Unavailable Vignarajah, Jayandra MD Unavailable Unavailable Vignarajah, Jayandra MD Unavailable Unavailable Vignarajah, Jayandra MD Unavailable Unavailable Vignarajah, Jayandra MD Unavailable Unavailable Vignarajah, Jayandra MD Unavailable Unavailable Vignarajah, Jayandra MD Unavailable Unavailable Vignarajah, Jayandra MD Unavailable Unavailable Vignarajah, Jayandra MD Unavailable Unavailable Vignarajah, Jayandra MD Unavailable Unavailable Vignarajah, Jayandra MD Unavailable Unavailable Vignarajah, Jayandra MD Unavailable Unavailable Vignarajah, Jayandra MD Unavailable Unavailable PARK ROCHA MD Unavailable Unavailable PARK ROCHA MD Unavailable Unavailable PARK ROCHA MD Unavailable Unavailable PARK ROCHA MD Unavailable Unavailable PARK ROCHA MD Unavailable Unavailable PARK ROCHA MD Unavailable Unavailable PARK ROCHA MD Unavailable Unavailable PARK ROCHA MD Unavailable Unavailable PARK ROCHA MD Unavailable Unavailable PARK ROCHA MD Unavailable Unavailable PARK ROCHA MD Unavailable Unavailable PARK ROCHA MD Unavailable Unavailable PARK ROCHA MD Unavailable Unavailable PARK ROCHA MD Unavailable Unavailable PARK ROCHA MD Unavailable Unavailable PARK ROCHA MD Unavailable Unavailable PARK ROCHA MD Unavailable Unavailable PARK ROCHA MD Unavailable Unavailable PARK ROCHA MD Unavailable Unavailable PARK ROCHA MD Unavailable Unavailable PARK ROCHA MD Unavailable Unavailable PARK ROCHA MD Unavailable Unavailable PARK ROCHA MD Unavailable Unavailable PARK ROCHA MD Unavailable Unavailable SERBIAN, PARK PETERSON Unavailable Unavailable SERBIAN, PARK PETERSON Unavailable Unavailable Greta Nicholsh PA-C Unavailable Unavailable Greta Nicholsh PA-C Unavailable Unavailable ALFREDO, JOANNA PETERSON Unavailable Unavailable ALFREDO, JOANNA PETERSON Unavailable Unavailable ALFREDO, JOANNA PETERSON Unavailable Unavailable ALFREDO, JOANNA PETERSON Unavailable Unavailable ALFREDO, JOANNA PETERSON Unavailable Unavailable ALFREDO, JOANNA PETERSON Unavailable Unavailable ALFREDO, JOANNA PETERSON Unavailable Unavailable ALFREDO, JOANNA PETERSON Unavailable Unavailable ALFREDO, JOANNA PETERSON Unavailable Unavailable ALFREDO, JOANNA PETERSON Unavailable Unavailable ALFREDO, JOANNA PETERSON Unavailable Unavailable ALFREDO, JOANNA PETERSON Unavailable Unavailable ALFREDO, CHARSTAS PETERSON Unavailable Unavailable ALFREDO, CHARSTAS PETERSON Unavailable Unavailable ALFREDO, JOANNA PETERSON Unavailable Unavailable ALFREDO, JOANNA PETERSON Unavailable Unavailable ALFREDO, JOANNA PETERSON Unavailable Unavailable ALFREDO, JOANNA PETERSON Unavailable Unavailable ALFREDO, JOANNA PETERSON Unavailable Unavailable ALFREDO, JOANNA PETERSON Unavailable Unavailable ALFREDO, JOANNA PETERSON Unavailable Unavailable ALFREDO, JOANNA PETERSON Unavailable Unavailable ALFREDO, JOANNA PETERSON Unavailable Unavailable ALFREDO, JOANNA PETERSON Unavailable Unavailable ALFREDO, JOANNA PETERSON Unavailable Unavailable ALFREDO, JOANNA PETERSON Unavailable Unavailable ALFREDO, JOANNA PETERSON Unavailable Unavailable ALFREDO, JOANNA PETERSON Unavailable Unavailable ALFREDO, JOANNA PETERSON Unavailable Unavailable ALFREDO, JOANNA PETERSON Unavailable Unavailable ALFREDO, JOANNA PETERSON Unavailable Unavailable ALFREDO, JOANNA PETERSON Unavailable Unavailable Eddie Wright MD Unavailable Unavailable Laura Sethi MD Unavailable Unavailable Laura Sethi MD Unavailable Unavailable Laura Sethi MD Unavailable Unavailable Laura Sethi MD Unavailable Unavailable Laura Sethi MD Unavailable Unavailable Laura Sethi MD Unavailable Unavailable Laura Sethi MD Unavailable Unavailable Laura Sethi MD Unavailable Unavailable Laura Sethi MD Unavailable Unavailable Laura Sethi MD Unavailable Unavailable Laura Sethi MD Unavailable Unavailable Laura Sethi MD Unavailable Unavailable Maury Treviño MD Unavailable Unavailable Maury Treviño MD Unavailable Unavailable Maury Treviño MD Unavailable Unavailable Maury Treviño MD Unavailable Unavailable Maury Treviño MD Unavailable Unavailable Maury Treviño MD Unavailable Unavailable Maury Treviño MD Unavailable Unavailable Maury Treviño MD Unavailable Unavailable Maury Treviño MD Unavailable Unavailable Maury Treviño MD Unavailable Unavailable Maury Treviño MD Unavailable Unavailable Maury Treviño MD Unavailable Unavailable Maury Treviño MD Unavailable Unavailable Maury Treviño MD Unavailable Unavailable Maury Treviño MD Unavailable Unavailable Maury Treviño MD Unavailable Unavailable Re-disclosure Warning The records that you are about to access may contain information from federally-assisted alcohol or drug abuse programs. If such information is present, then the following federally mandated warning applies: This information has been disclosed to you from records protected by federal confidentiality rules (42 CFR part 2). The federal rules prohibit you from making any further disclosure of this information unless further disclosure is expressly permitted by the written consent of the person to whom it pertains or as otherwise permitted by 42 CFR part 2. A general authorization for the release of medical or other information is NOT sufficient for this purpose. The Federal rules restrict any use of the information to criminally investigate or prosecute any alcohol or drug abuse patient.The records that you are about to access may contain highly sensitive health information, the redisclosure of which is protected by Article 27-F of the [facility] Public Health law. If you continue you may have access to information: Regarding HIV / AIDS; Provided by facilities licensed or operated by the [facility] Office of Mental Health; or Provided by the [facility] Office for People With Developmental Disabilities. If such information is present, then the following [facility] mandated warning applies: This information has been disclosed to you from confidential records which are protected by state law. State law prohibits you from making any further disclosure of this information without the specific written consent of the person to whom it pertains, or as otherwise permitted by law. Any unauthorized further disclosure in violation of state law may result in a fine or halfway sentence or both. A general authorization for the release of medical or other information is NOT sufficient authorization for further disc losure. Allergies and Adverse Reactions Type Description Substance Reaction Status Data Source(s ) No Known Environmental Allergies No Known Environmental Al lergies [facility] No Known Food Allergies No Known Food Allergies [facility] Propensity to adverse reactions PROCARDIA PROCARDIA sores in mouth [facility] Drug allergy CYCLOBENZAPRINE CYCLOBENZAPRINE AGGITATED, ANXIETY [facility] Drug allergy PROCHLORPERAZINE PROCHLORPERAZINE AGGITATED, ANXIETY [facility] Drug allergy cyclobenzaprine cyclobenzaprine Anxiety [facility] Drug allergy prochlorperazine prochlorperazine Anxiety [facility] Drug allergy nifedipine nifedipine Taste Changes [facility] Propensity to adverse reactions NO ALLERGIES ON FILE NO ALLERGIES ON FILE Propensity to adverse reactions PROCHLORPERAZINE Prochlorperazine A nxiety Low Family History Family Member Name Family Member Gender Family Member Status Date o f Status Description Data Source(s) Unknown Condition [facility] Unknown Condition [facility] Unknown Condition [facility] Unknown Condition [facility] Unknown Condition [facility] Unknown Condition [facility] Encounters Encounter Providers Location Date Indications Data Source(s ) Emergency Attender: BANG GRAFConsultant[facility] 07:03:00 AM EDT - 02/19/2021 10:57:00 AM EDT [facility] Patient discharged. Outpatient [id number] [facility] [id number] 01/19/2021 12:00:00 AM EDT eCW1 ([facility]) Unknown [address] [id number] 10/26/2020 12:00:00 AM EDT eCW1 ([facility]) Outpatient Attender: Marvin CLEMENT 10/24/19 10:58:44 AM EDT - 10/23/2020 11:26:27 AM EDT [facility] ([facility] ) INPATIENT Attender: Ileana Ledesma Mark MDAt tender: MICHELLE KEYS MDAttender: MARCK MCDONALD DOAdmitter: MARCK MCDONALD DOConsultant: Ihsan FrancoinerConsultant: PRICILA CISNEROS MDConsultant: JAMES MOON MDConsultant: LATOSHA CHRISTOPHER MDConsultant: Yann Flores MD 2E-IC 07/11/2020 06:20:00 PM ES T - 07/15/2020 11:44:00 AM EST Patient discharged. Emergency Attender: Mika Shaffer MD 06/26 02:17:00 PM EST - 07/11/2020 04:56:00 PM EST [facility] UN[facility] Patient discharged. Outpatient Attender: Jd Lal MDReferrer: Jd Lal MD 07/10/2020 12:48:00 PM EST - 07/10/2020 02:05:00 PM EST [facility] Outpatient Attender: MADAI EDWARDS MD 07/10/2020 08:47:00 AM EST ? BONE INFECTION [facility] ? BONE INFECTION Emergency Attender: WHIT COTA MD 06/26 03:42:00 PM EST - 07/05/2020 07:41:00 PM EST CHEST PAIN [facility] CHEST PAIN Patient discharged. Inpatient Admitter: Maury Treviño MDReferrer: CARMINA Swain [id number] 06/22/2020 12:47:57 PM EST [facility] Inpatient Attender: Kathryn connell MDAttender: PARK ROCHA MDAttender: Maury Treviño MDAdmitter: Maury Treviño MDConsultant: Elisa Zuniga MD [id number] 06/21/2020 02:44:36 PM EST - 06/23/2020 03:55:00 PM EST [facility] Patient discharged. INPATIENT Attender: MICHELLE KEYS MD Attender: Laura Sethi MDAttender: LOYD SAUCEDO MDAdmitter: Laura Sethi MDConsultant: PRICILA CISNEROS MDConsultant: DARCY ROCKWELL MD 2E-2C 06/16/2020 11:42:00 AM EST - 06/21/2020 01:30:00 PM EST Patient discharged. Outpatient 2E-MAPA 06/09/2020 08:45:48 AM EST - 021 11:59:00 PM EST Patient discharged. 2E-CCL 06/09/2020 07:35:43 AM [facility] Inpatient Attender: Isaías Nichols PA-C Attender: Chilo Pineda MDAdmitter: Chilo Pineda MDConsultant: MINH DUMAS MDConsultant: SYDNI KEITAConsultant: Armaan AdcockConsultant: Unique Ford PASConsultant: WHIT FERREIRA MDConsultant: Nicolle Walls PAConsultant: CHRISTO LLAMAS MDConsultant: Raul Magallon MDConsultant: Eddie Wright MDConsultant: WHIT PATHAK PAConsultant: KD DE LA ROSA PAConsultant: Anthony Gonzalez MDConsultant: JOANNA ALFREDO MDConsultant: [facility] 06/08/2020 01:50:00 PM EST - 06/16/2020 10:05:00 AM EST CHEST PAIN [facility] CHEST PAIN Patient discharged. Outpatient Attender: Tremaine Ledesma MD [facility] 05/26 01:45:00 PM EST [facility] ([facility]) Inpatient Attender: CHRISTO Encinas nder: JOSÉ MIGUEL SHANNON MDAdmitter: CHRISTO LLAMAS MDConsultant: [facility] 05/29/2020 05:39:00 PM EST - 05/31/2020 02:15:00 PM EST AFIB WITH RVR [facility] AFIB WITH RVR Patient discharged. Functional Status Medications Medication Brand Name Start Date Product Form Dose Route Admi nistrative Instructions Pharmacy Instructions Status Indications Reaction Description Data Source(s) Amlodipine 10 MG Oral Tablet amLODIPine (NORVASC) 10 m g tablet amLODIPine (NORVASC) 10 mg tablet 07/15/2020 12:00:00 AM EST 10 mg oral active Take 1 tablet (10 mg total) by mouth 1 (one) time each day. Lisinopril 40 MG Oral Tablet lisinopriL (PRINIVIL) 40 mg tablet lisinopriL (PRINIVIL) 40 mg tablet 07/15/2020 12:00:00 AM EST 40 mg oral active Take 1 tablet (40 mg total) by mouth 1 (one) time each day. apixaban 5 MG Oral Tablet apixaban (ELIQUIS) 5 mg tabl et apixaban (ELIQUIS) 5 mg tablet 07/14/2020 12:00:00 AM EST 5 mg oral activ e deep venous thrombosis Take 1 tablet (5 mg total) by mouth 2 (two) times a da y. deep venous thrombosis Hydralazine Hydrochloride 50 MG Oral Tab let hydrALAZINE (APRESOLINE) 50 mg tablet hydrALAZINE (APRESOLINE) 50 mg tablet 07/14/2020 12:00:00 AM EST 50 mg oral active Take 1 tablet (50 mg total) by mouth 3 (three) times a day. 3 ML Insulin, Aspart, Human 100 UNT/ML P en Injector insulin aspart (NovoLOG) 100 unit/mL (3 mL) injection insulin aspart (NovoLOG) 100 unit/mL (3 mL) injection 07/14/2020 12:00:00 AM EST 10 U subcutaneous active Inject 10 Units under the skin 3 (three) times a day with meals. 3 ML insulin detemir 100 UNT/ML Pen Inje ctor insulin detemir (LEVEMIR) 100 unit/mL (3 mL) injection insulin detemir (LEVEMIR) 100 unit/mL (3 mL) injection 07/14/2020 12:00:00 AM EST 30 U subcutaneous active Inject 30 Units under the skin 1 (one) time each day at night. Lisinopril 40 MG Oral Tablet Lisinopril 07/10/2020 12:47:22 PM EST 40 MG active [facility] Lisinopril 40 MG Oral Tablet Lisinopril 07/10/2020 12:47:22 PM EST 40 MG active [facility] Hydralazine Hydrochloride 10 MG Oral Tablet Hydralazine 07/10/2020 12:46:54 PM EST 10 MG active [facility] Hydralazine Hydrochloride 10 MG Oral Tablet Hydralazine 07/10/2020 12:46:54 PM EST 10 MG active [facility] Famotidine 20 MG Oral Tablet Famotidine 07/10/2020 12:46:03 PM EST 20 MG active [facility] Famotidine 20 MG Oral Tablet Famotidine 07/10/2020 12:46:03 PM EST 20 MG active [facility] atorvastatin 40 MG Oral Tablet Atorvastatin Atorvastatin 07/10/2020 12:45:32 PM EST 40 MG active [facility] atorvastatin 40 MG Oral Tablet Atorvastatin Atorvastatin 07/10/2020 12:45:32 PM EST 40 MG active [facility] apixaban 5 MG Oral Tablet Apixaban (Eliquis) 5 mg tabl et Apixaban (Eliquis) 5 mg tablet 07/10/2020 12:44:59 PM EST 5 MG active [facility] apixaban 5 MG Oral Tablet Apixaban (Eliquis) 5 mg tabl et Apixaban (Eliquis) 5 mg tablet 07/10/2020 12:44:59 PM EST 5 MG active [facility] Insulin Lispro 07/10/2020 12:44:50 PM EST act [facility] Insulin Lispro 07/10/2020 12:44:50 PM EST act [facility] 3 ML Insulin Glargine 100 UNT/ML Pen Inj danuta Insulin Glargine (Lantus Solostar U-100 Insulin) 100 unit/mL (3 mL) insulin pen Insulin Glargine (Lantus Solostar U-100 Insulin) 100 unit/mL (3 mL) insulin pen 07/10/2020 12:44:31 PM EST active [facility] 3 ML Insulin Glargine 100 UNT/ML Pen Inj danuta Insulin Glargine (Lantus Solostar U-100 Insulin) 100 unit/mL (3 mL) insulin pen Insulin Glargine (Lantus Solostar U-100 Insulin) 100 unit/mL (3 mL) insulin pen 07/10/2020 12:44:31 PM EST active [facility] aripiprazole 5 MG Oral Tablet ARIPiprazole (ABILIFY) 5 MG tablet ARIPiprazole (ABILIFY) 5 MG tablet 06/24/2020 12:00:00 AM EST 5 mg Oral active Take 1 tablet (5 mg total) by mouth daily [facility] Insulin Glargine 100 UNT/ML Injectable S olution [Lantus] insulin glargine (LANTUS) injection 10 Units insulin glargine (LANTUS) injection 10 Units 06/23/2020 10:00:00 AM EST 10 U Subcutaneous active 10 Units, Subcutaneous, Daily (Lantus), First dose on Fri06/23/20 at 1000
Basal Insulin (Lantus) Adjustments based on AM Blood Glucose Blood Glucose&nbs p; Adjustment Less than 70 mg/dl Nursing to initiate hypoglycemia protocol 70 to 100 mg/dl &nb sp; Pharmacy to decrease total daily dose by 20% 101 to 200 mg/dl &nb sp; No Change
[facility] Medication administered onsite Acetaminophen 325 MG / Oxycodone Hydroch loride 5 MG Oral Tablet oxyCODONE- acetaminophen (PERCOCET) 5-325 MG 1 tablet oxyCODONE-acetaminophen (PERCOCET) 5- 325 MG 1 tablet 06/22/2020 04:25:11 PM EST 1 {tbl} Oral a ctive 1 tablet, Oral, Every 4 hours PRN, severe pain (7-10), moderate pain (4-6), Starting Cassidy 06/22/20 at 1625, For 2 days [facility] Medication administered onsite Calcium Chloride 0.0014 MEQ/ML / Potassi um Chloride 0.004 MEQ/ML / Sodium Chloride 0.103 MEQ/ML / Sodium Lactate 0.028 MEQ/ML Injectable Solution lactated ringers infusion lactated ringers infusion 06/22/2020 03:00:00 PM EST 125 mL/h Intravenous active at 125 m L/hr, 125 mL/hr, Intravenous, Continuous, Starting Cassidy 06/22/20 at 1500, PACU (only) [facility] Medication administered onsite Aspirin 81 MG Chewable Tablet aspirin chewable tablet 81 mg aspirin chewable tablet 81 mg 06/22/2020 09:00:00 AM EST 81 mg Oral activ e 81 mg, Oral, Daily, First dose on Cassidy 06/22/20 at 0900 [facility] Medication administered onsite aripiprazole 5 MG Oral Tablet ARIPiprazole (ABILIFY) t ablet 5 mg ARIPiprazole (ABILIFY) tablet 5 mg 06/22/2020 09:00:00 AM EST 5 mg Oral active 5 mg, Oral, Daily, First dose on Cassidy 06/22/20 at 0900 [facility] Medication administered onsite Fluoxetine 20 MG Oral Capsule FLUoxetine (PROzac) caps ule 40 mg FLUoxetine (PROzac) capsule 40 mg 06/22/2020 09:00:00 AM EST 40 mg Oral active 40 mg, Oral, Daily, First dose on Cassidy 06/22/20 at 0900 [facility] Medication administered onsite Lisinopril 20 MG Oral Tablet lisinopril (PRINIVIL,ZEST RIL) tablet 10 mg lisinopril (PRINIVIL,ZESTRIL) tablet 10 mg 06/22/2020 09:00:00 AM EST 10 mg Oral active 10 mg, Oral, Daily, First dose on Cassidy 06/22/20 at 0900 [facility] Medication administered onsite gabapentin 600 MG Oral Tablet gabapentin (NEURONTIN) t ablet 600 mg gabapentin (NEURONTIN) tablet 600 mg 06/22/2020 03:00:00 AM EST 600 mg Oral completed 600 mg, Oral, 3 times daily, [facility] dose on Cassidy 06/22/20 at 0300, For 1 dose [facility] Medication administered onsite Lisinopril 10 MG Oral Tablet lisinopriL (PRINIVIL) 10 mg tablet lisinopriL (PRINIVIL) 10 mg tablet 06/22/2020 12:00:00 AM EST 10 mg oral aborted Take 1 tablet (10 mg total) by mouth 1 (one) time each day. normal saline flush 0.9 % injection 3 mL [id number] 06/21/2020 10:00:00 PM EST 3 mL Intravenous active 3 mL , Intravenous, PROTOCOL, First dose on Fri06/21/20 at 2200
flush per protocol, D/C Main IV fluid if appropriate
[facility] Medication administered onsite atorvastatin 40 MG Oral Tablet atorvastatin (LIPITOR) tablet 40 mg atorvastatin (LIPITOR) tablet 40 mg 06/21/2020 09:00:00 PM EST 40 mg Oral active 40 mg, Oral, Nightly, First dose on Fri06/21/20 at 2100 [facility] Medication administered onsite Famotidine 20 MG Oral Tablet famotidine (PEPCID) table t 20 mg famotidine (PEPCID) tablet 20 mg 06/21/2020 09:00:00 PM EST 20 mg Oral active 20 mg, Oral, 2 times daily, First dose on Fri06/21/20 at 2100 [facility] Medication administered onsite carvedilol 25 MG Oral Tablet carvedilol (COREG) tablet 25 mg carvedilol (COREG) tablet 25 mg 06/21/2020 09:00:00 PM EST 25 mg Oral activ e 25 mg, Oral, 2 times daily, First dose on Fri06/21/20 at 2099 [facility] Medication administered onsite Amiodarone hydrochloride 200 MG Oral Tablet amiodarone (PACERONE) tablet 200 mg amiodarone (PACERONE) tablet 200 mg 06/21/2020 09:00:00 PM EST 200 mg Oral active 200 mg, Oral, 2 times daily, First dose on Fri06/21/20 at 2099 [facility] Medication administered onsite Insulin Lispro 100 UNT/ML Injectable Charlene ution insulin lispro (HumaLOG) injection 1-12 Units insulin lispro (HumaLOG) injection 1-12 Units 06/21/19 07:00:00 PM EST Subcutaneous active 1-1 2 Units, Subcutaneous, MEALSS, First dose on Fri06/21/20 at 1900
AVERAGE 6 Units Nutritional and Correction Insulin Scale Blood Glucose (mg/dl) <70 start hypoglycemia protocol Glucose Eats >=50% Eats <50% Eats Nothing (mg/dl) of meal of meal or NPO 70-1 20 4 units 2 units 0 units 121-170 &a mp;nbsp; 6 units 3 unit s 0 units 171-220 &n bsp; 7 units 4 units 1 units 221-270 &n bsp; 8 units 5 units 2 units 271- 320 9 units 6 units 3 units 321- 370 10 units 7 units 4 units 371-420 &nbsp ; 11 units 8 units& nbsp; 5 units >420 call MD 12 units &a mp;nbsp; 9 units 6 units Test glucose within 30 minutes of insulin administration. Administer insulin within 15 minutes (before or after) of the patient starting to eat. For patients that are NPO, use the&am p;nbsp; NPO (correction) scale to cover POC glucose at 08:00, 12:00, 17:00.
[facility] Medication administered onsite 0.4 ML Enoxaparin sodium 100 MG/ML Prefi lled Syringe enoxaparin (LOVENOX) syringe 40 mg enoxaparin (LOVENOX) syringe 40 mg 06/21/2020 07:00:00 PM EST 40 mg Subcutaneous active 40 mg, Subcutaneous, Every 24 hours (relative), First dose on Fri06/21/20 at 1900
If platelet count is less than 100 or hematocrit is less than 35 or if there is a 5 point decrease in hematocrit, do not give the dose and call physician/designee.
[facility] Medication administered onsite cefazolin (ANCEF) injection 2 g 06/21/2020 07:00:00 PM EST 2 g Intravenous active Bacteremia 2 g, Intravenou s, Administer over 6 Minutes, Every 8 hours (relative), First dose on Fri06/21/20 at 1900
RN may administer IV push or infuse this medication through syringe adapter set ref [id number]. Flush line after use
[facility] Bacteremia Medication administered onsite Folic Acid 1 MG Oral Tablet folic acid (FOLVITE) table t 1 mg folic acid (FOLVITE) tablet 1 mg 06/21/2020 06:00:00 PM EST 1 mg Oral active 1 mg, Oral, Daily, First dose on Fri06/21/20 at 1800 [facility] Medication administered onsite normal saline flush 0.9 % injection 3 mL 84014-064-15 06/21/2020 06:00:00 PM EST 3 mL Intravenous active 3 mL , Intravenous, Every 8 hours (scheduled), First dose on Fri06/21/20 at 1800
flush per protocol, D/C Main IV fluid if appropriate
[facility] Medication administered onsite Acetaminophen 325 MG Oral Tablet acetaminophen (TYLENO L) 325 MG tablet 650 mg acetaminophen (TYLENOL) 325 MG tablet 650 mg 06/21/2020 05:23:27 PM EST 650 mg Oral active 650 mg, Or al, Every 6 hours PRN, mild pain (1-3), Starting Fri06/21/20 at 1723 [facility] Medication administered onsite 3 ML insulin detemir 100 UNT/ML Pen Inje ctor insulin detemir (LEVEMIR) 100 unit/mL (3 mL) injection insulin detemir (LEVEMIR) 100 unit/mL (3 mL) injection 06/21/2020 12:00:00 AM EST 20 U subcutaneous aborted Inject 20 Units under the skin 1 (one) time each day at night. Ondansetron 4 MG Disintegrating Oral Tab let ondansetron (ZOFRAN-ODT) 4 mg dispersible tablet ondansetron (ZOFRAN-ODT) 4 mg dispersible tablet 06/21 12:00:00 AM EST 4 mg oral active Take 1 tablet (4 mg total) by mouth every 6 (six) hours if needed for nausea or vomiting for up to 7 days. Menthol 100 MG/ML / methyl salicylate 15 0 MG/ML Topical Cream methyl salicylate- menthol 15-10 % greaseless cream methyl salicylate-menthol 15-10 % grease less cream 06/21/2020 12:00:00 AM EST 1 {application} topical a ctive Apply 1 application topically 4 (four) times a day if needed for muscle/joint pain. sodium chloride 0.9 % injection [id number] 06/21/2020 12:00:00 AM ES T 20 mL intravenous aborted Infuse 20 mL into a venous catheter if needed for line care (flush 20 mL IV after blood draws, blood product administration, TPN, precipitates, and viscous solutions). sodium chloride 0.9 % injection [id number] 06/21/2020 12:00:00 AM ES T 10 mL intravenous aborted Infuse 10 mL into a venous catheter every 8 (eight) hours. sodium chloride 0.9% solution [id number] 06/21/2020 12:00:00 AM EST 50 mL/h intravenous aborted Infuse 50 mL/ hr into a venous catheter continuously. Capsaicin 0.25 MG/ML Topical Cream capsaicin (ZOSTRIX) 0.025 % cream capsaicin (ZOSTRIX) 0.025 % cream 06/21/2020 12:00:00 AM EST topical active Apply topically 2 (two) times a day. alteplase (CATHFLO ACTIVASE) 2 mg injection [id number] 06/21/2020 12:00:00 AM EST 2 mg Intracatheter active 2 mL ( 2 mg total) by Intracatheter route if needed (may repeat x 1. follow catheter clearance policy.). Cefazolin 2000 MG Injection ceFAZolin (ANCEF) IVPB ceFAZolin (ANCEF) IVPB 06/21/2020 12:00:00 AM EST 2 g intravenous active Infuse 100 mL (2 g total) into a venous catheter every 8 (eight) hours. Famotidine 20 MG Oral Tablet famotidine (PEPCID) 20 mg tablet famotidine (PEPCID) 20 mg tablet 06/21/2020 12:00:00 AM EST 20 mg oral aborted Take 1 tablet (20 mg total) by mouth 2 (two) times a day. Docusate Sodium 100 MG Oral Capsule docusate sodium (C OLACE) 100 mg capsule docusate sodium (COLACE) 100 mg capsule 06/21/2020 12:00:00 AM EST 100 mg oral active Take 1 capsule (100 mg total) by mouth 2 (two) times a day if needed for constipation for up to 10 days. Glucose 0.4 MG/MG Oral Gel glucose (GLUTOSE) 40% gel glucose (GLUTOSE) 40% gel 06/21/2020 12:00:00 AM EST g oral aborted Take 37.5-75 mL (15-30 g total) by mouth if needed for low blood sugar (hypoglycemia treatment protocol). Glucagon 1 MG Injection glucagon, human recombinant, 1 mg/mL injection glucagon, human recombinant, 1 mg/mL injection 06/21/2020 12:00:00 AM EST 1 mg intramuscular aborted Inject 1 mg into the shoulder, thigh, or buttocks if needed (hypoglycemia treatment panel). heparin sodium, porcine 10 UNT/ML Prefil led Syringe heparin flush 10 unit/mL injection heparin flush 10 unit/mL injection 06/21/2020 12:00:00 AM EST U intravenous active Infuse 3-9 mL (30-90 Units total) into a venous catheter every 8 (eight) hours. heparin sodium, porcine 10 UNT/ML Prefil led Syringe heparin flush 10 unit/mL injection heparin flush 10 unit/mL injection 06/21/2020 12:00:00 AM EST 30 U intravenous active Infuse 3 mL ( 30 Units total) into a venous catheter if needed for line care (after each use). 3 ML Insulin, Aspart, Human 100 UNT/ML P en Injector insulin aspart (NovoLOG) 100 unit/mL (3 mL) injection insulin aspart (NovoLOG) 100 unit/mL (3 mL) injection 06/21/2020 12:00:00 AM EST U subcutaneous aborted Inject 0-10 Units under the skin 4 (four) times a day (before meals and nightly). sodium chloride 0.9 % injection [id number] 06/21/2020 12:00:00 AM ES T 3 mL intravenous aborted Infuse 3 mL i nto a venous catheter every 8 (eight) hours if needed for line care. Acetaminophen 325 MG Oral Tablet acetaminophen (TYLENO L) 325 mg tablet acetaminophen (TYLENOL) 325 mg tablet 06/21/2020 12:00:00 AM EST 65 0 mg oral active Take 2 tablets (650 mg total) by mouth every 4 (four) hours if needed for mild pain for up to 10 days. lidocaine (XYLOCAINE) 10 mg/mL (1 %) injection [id number] 06/21/2020 12:00:00 AM EST mg infiltration active 1-5 mL (10-50 mg total) by infiltration route 1 (one) time if needed (during PICC insertion) for up to 1 dose. 3 ML Insulin, Aspart, Human 100 UNT/ML P en Injector insulin aspart (NovoLOG) 100 unit/mL (3 mL) injection insulin aspart (NovoLOG) 100 unit/mL (3 mL) injection 06/21/2020 12:00:00 AM EST 8 U subcutaneous aborted Inject 8 Units under the skin 3 (three) times a day with meals. Pen Needle, Diabetic (Bd Ultra-Fine Orig Pen Needle) 29 gaug e x 1/2" needle 06/01/2020 09:23:31 AM EST 0 active [facility] Pen Needle, Diabetic (Bd Ultra-Fine Orig Pen Needle) 29 gaug e x 1/2" needle 06/01/2020 09:23:31 AM EST 0 active [facility] Pen Needle, Diabetic (Bd Ultra-Fine Orig Pen Needle) 29 gaug e x 1/2" needle 06/01/2020 09:23:31 AM EST 0 active [facility] Pen Needle, Diabetic (Bd Ultra-Fine Orig Pen Needle) 29 gaug e x /2" needle 06/01/2020 09:23:31 AM EST 0 active [facility] Pen Needle, Diabetic (Bd Ultra-Fine Orig Pen Needle) 29 gaug e x /2" needle 06/01/2020 09:23:31 AM EST 0 active [facility] Amiodarone hydrochloride 200 MG Oral Tablet Amiodarone 05/31/2020 08:11:58 AM EST 200 MG active [facility] Amiodarone hydrochloride 200 MG Oral Tablet Amiodarone 05/31/2020 08:11:58 AM EST 200 MG active [facility] Amiodarone hydrochloride 200 MG Oral Tablet Amiodarone 05/31/2020 08:11:58 AM EST 200 MG active [facility] Amiodarone hydrochloride 200 MG Oral Tablet Amiodarone 05/31/2020 08:11:58 AM EST 200 MG active [facility] Amiodarone hydrochloride 200 MG Oral Tablet Amiodarone 05/31/2020 08:11:58 AM EST 200 MG active [facility] Amiodarone hydrochloride 200 MG Oral Tablet Amiodarone 05/31/2020 08:11:58 AM EST 200 MG active [facility] Amiodarone hydrochloride 200 MG Oral Tablet Amiodarone 05/31/2020 08:09:50 AM EST 400 MG active [facility] Amiodarone hydrochloride 200 MG Oral Tablet Amiodarone 05/31/2020 08:09:50 AM EST 400 MG active [facility] Amiodarone hydrochloride 200 MG Oral Tablet Amiodarone 05/31/2020 08:09:50 AM EST 400 MG completed [facility] Amiodarone hydrochloride 200 MG Oral Tablet Amiodarone 05/31/2020 08:09:50 AM EST 400 MG active [facility] Amiodarone hydrochloride 200 MG Oral Tablet Amiodarone 05/31/2020 08:09:50 AM EST 400 MG completed [facility] Amiodarone hydrochloride 200 MG Oral Tablet Amiodarone 05/31/2020 08:09:50 AM EST 400 MG completed [facility] Vitamin B 12 0.5 MG Oral Tablet Cyanocobalamin (Vitami n B-12) Cyanocobalamin (Vitamin B-12) 05/31/2020 12:47:05 AM EST 500 MCG active [facility] Vitamin B 12 0.5 MG Oral Tablet Cyanocobalamin (Vitami n B-12) Cyanocobalamin (Vitamin B-12) 05/31/2020 12:47:05 AM EST 500 MCG active [facility] Amlodipine 10 MG Oral Tablet Amlodipine 05/31/2020 12:47:05 AM EST 10 MG completed [facility] Amlodipine 10 MG Oral Tablet Amlodipine 05/31/2020 12:47:05 AM EST 10 MG completed [facility] Amlodipine 10 MG Oral Tablet Amlodipine 05/31/2020 12:47:05 AM EST 10 MG completed [facility] Amlodipine 10 MG Oral Tablet Amlodipine 05/31/2020 12:47:05 AM EST 10 MG completed [facility] [employer] [place]-3 Fatty Acids-Vitamin E 05/31/2020 12:47:05 AM EST 1000 CAP active [facility] [employer] [place]-3 Fatty Acids-Vitamin E 05/31/2020 12:47:05 AM EST 1000 CAP active [facility] Trazodone Hydrochloride 100 MG Oral Tablet Trazodone 05/31 12:47:05 AM EST 100 MG active [facility] Trazodone Hydrochloride 100 MG Oral Tablet Trazodone 05/31 12:47:05 AM EST 100 MG active [facility] Vitamin B 12 0.5 MG Oral Tablet Cyanocobalamin (Vitami n B-12) Cyanocobalamin (Vitamin B-12) 05/31/2020 12:47:05 AM EST 500 MCG active [facility] Trazodone Hydrochloride 100 MG Oral Tablet Trazodone 05/31 12:47:05 AM EST 100 MG active [facility] [employer]-3 Fatty Acids-Vitamin E 05/31/2020 12:47:05 AM EST 1000 CAP active [facility] Trazodone Hydrochloride 100 MG Oral Tablet Trazodone 05/31 12:47:05 AM EST 100 MG active [facility] [employer]-3 Fatty Acids-Vitamin E 05/31/2020 12:47:05 AM EST 1000 CAP active [facility] Vitamin B 12 0.5 MG Oral Tablet Cyanocobalamin (Vitami n B-12) Cyanocobalamin (Vitamin B-12) 05/31/2020 12:47:05 AM EST 500 MCG active [facility] [employer] [place]-3 Fatty Acids-Vitamin E 05/31/2020 12:47:05 AM EST 1000 CAP active [facility] Amlodipine 10 MG Oral Tablet Amlodipine 05/31/2020 12:47:05 AM EST 10 MG completed [facility] Vitamin B 12 0.5 MG Oral Tablet Cyanocobalamin (Vitami n B-12) Cyanocobalamin (Vitamin B-12) 05/31/2020 12:47:05 AM EST 500 MCG active [facility] Amlodipine 10 MG Oral Tablet Amlodipine 05/31/2020 12:47:05 AM EST 10 MG completed [facility] Trazodone Hydrochloride 100 MG Oral Tablet Trazodone 05/31 12:47:05 AM EST 100 MG [facility] Trazodone Hydrochloride 100 MG Oral Tablet Trazodone 05/31 12:47:05 AM EST 100 MG active [facility] [employer]-3 Fatty Acids-Vitamin E 05/31/2020 12:47:05 AM EST 1000 CAP active [facility] Vitamin B 12 0.5 MG Oral Tablet Cyanocobalamin (Vitami n B-12) Cyanocobalamin (Vitamin B-12) 05/31/2020 12:47:05 AM EST 500 MCG active [facility] Insulin Lispro 05/30/2020 11:57:37 AM EST 7 UNIT c ompleted [facility] Insulin Lispro 05/30/2020 11:57:37 AM EST 7 UNIT c [facility] Insulin Lispro 05/30/2020 11:57:37 AM EST 7 UNIT c [facility] Insulin Lispro 05/30/2020 11:57:37 AM EST 7 UNIT c [facility] Insulin Lispro 05/30/2020 11:57:37 AM EST 7 UNIT c [facility] Insulin Lispro 05/30/2020 11:57:37 AM EST 7 UNIT c [facility] 3 ML Insulin Glargine 100 UNT/ML Pen Inj danuta Insulin Glargine (Lantus Solostar U-100 Insulin) 100 unit/mL (3 mL) insulin pen Insulin Glargine (Lantus Solostar U-100 Insulin) 100 unit/mL (3 mL) insulin pen 05/30/2020 11:56:32 AM EST 35 UNIT completed [facility] 3 ML Insulin Glargine 100 UNT/ML Pen Inj danuta Insulin Glargine (Lantus Solostar U-100 Insulin) 100 unit/mL (3 mL) insulin pen Insulin Glargine (Lantus Solostar U-100 Insulin) 100 unit/mL (3 mL) insulin pen 05/30/2020 11:56:32 AM EST 35 UNIT completed [facility] 3 ML Insulin Glargine 100 UNT/ML Pen Inj danuta Insulin Glargine (Lantus Solostar U-100 Insulin) 100 unit/mL (3 mL) insulin pen Insulin Glargine (Lantus Solostar U-100 Insulin) 100 unit/mL (3 mL) insulin pen 05/30/2020 11:56:32 AM EST 35 UNIT completed [facility] 3 ML Insulin Glargine 100 UNT/ML Pen Inj danuta Insulin Glargine (Lantus Solostar U-100 Insulin) 100 unit/mL (3 mL) insulin pen Insulin Glargine (Lantus Solostar U-100 Insulin) 100 unit/mL (3 mL) insulin pen 05/30/2020 11:56:32 AM EST 35 UNIT completed [facility] 3 ML Insulin Glargine 100 UNT/ML Pen Inj danuta Insulin Glargine (Lantus Solostar U-100 Insulin) 100 unit/mL (3 mL) insulin pen Insulin Glargine (Lantus Solostar U-100 Insulin) 100 unit/mL (3 mL) insulin pen 05/30/2020 11:56:32 AM EST 35 UNIT completed [facility] 3 ML Insulin Glargine 100 UNT/ML Pen Inj danuta Insulin Glargine (Lantus Solostar U-100 Insulin) 100 unit/mL (3 mL) insulin pen Insulin Glargine (Lantus Solostar U-100 Insulin) 100 unit/mL (3 mL) insulin pen 05/30/2020 11:56:32 AM EST 35 UNIT completed [facility] apixaban 5 MG Oral Tablet Apixaban (Eliquis) 5 mg Tabl et Apixaban (Eliquis) 5 mg Tablet 05/29/2020 09:46:51 PM EST 5 MG active [facility] apixaban 5 MG Oral Tablet Apixaban (Eliquis) 5 mg Tabl et Apixaban (Eliquis) 5 mg Tablet 05/29/2020 09:46:51 PM EST 5 MG completed [facility] apixaban 5 MG Oral Tablet Apixaban (Eliquis) 5 mg Tabl et Apixaban (Eliquis) 5 mg Tablet 05/29/2020 09:46:51 PM EST 5 MG active [facility] apixaban 5 MG Oral Tablet Apixaban (Eliquis) 5 mg Tabl et Apixaban (Eliquis) 5 mg Tablet 05/29/2020 09:46:51 PM EST 5 MG active [facility] apixaban 5 MG Oral Tablet Apixaban (Eliquis) 5 mg Tabl et Apixaban (Eliquis) 5 mg Tablet 05/29/2020 09:46:51 PM EST 5 MG active [facility] apixaban 5 MG Oral Tablet Apixaban (Eliquis) 5 mg Tabl et Apixaban (Eliquis) 5 mg Tablet 05/29/2020 09:46:51 PM EST 5 MG completed [facility] apixaban 5 MG Oral Tablet Apixaban (Eliquis) 5 mg Tabl et Apixaban (Eliquis) 5 mg Tablet 05/29/2020 09:46:51 PM EST 5 MG active [facility] Warfarin Sodium 5 MG Oral Tablet warfarin (COUMADIN) 5 MG tablet warfarin (COUMADIN) 5 MG tablet 07/09/2019 12:00:00 AM EST 5 mg Oral aborted Take 1 tablet (5 mg total) by mouth daily on Friday, Friday, and Friday [facility] Melatonin 3 MG Oral Tablet Melatonin (Melatin) 3 mg Ta blet Melatonin (Melatin) 3 mg Tablet 07/07/2019 02:42:31 PM EST 3 MG completed [facility] Hydralazine Hydrochloride 10 MG Oral Tablet Hydralazine 07/07/2019 02:42:31 PM EST 10 MG completed [facility] Famotidine 20 MG Oral Tablet Famotidine 07/07/2019 02:42:31 PM EST 20 MG completed [facility] atorvastatin 40 MG Oral Tablet Atorvastatin Atorvastatin 07/07/2019 02:42:31 PM EST 80 MG completed [facility] Famotidine 20 MG Oral Tablet Famotidine 07/07/2019 02:42:31 PM EST 20 MG completed [facility] Famotidine 20 MG Oral Tablet Famotidine 07/07/2019 02:42:31 PM EST 20 MG completed [facility] Melatonin 3 MG Oral Tablet Melatonin (Melatin) 3 mg Ta blet Melatonin (Melatin) 3 mg Tablet 07/07/2019 02:42:31 PM EST 3 MG completed [facility] Hydralazine Hydrochloride 10 MG Oral Tablet Hydralazine 07/07/2019 02:42:31 PM EST 10 MG completed [facility] Hydralazine Hydrochloride 10 MG Oral Tablet Hydralazine 07/07/2019 02:42:31 PM EST 10 MG completed [facility] Melatonin 3 MG Oral Tablet Melatonin (Melatin) 3 mg Ta blet Melatonin (Melatin) 3 mg Tablet 07/07/2019 02:42:31 PM EST 3 MG completed [facility] Hydralazine Hydrochloride 10 MG Oral Tablet Hydralazine 07/07/2019 02:42:31 PM EST 10 MG completed [facility] atorvastatin 40 MG Oral Tablet Atorvastatin Atorvastatin 07/07/2019 02:42:31 PM EST 80 MG completed [facility] Hydralazine Hydrochloride 10 MG Oral Tablet Hydralazine 07/07/2019 02:42:31 PM EST 10 MG completed [facility] duloxetine Duloxetine Duloxetine 07/07/2019 02:42:31 PM EST 60 M G completed [facility] Melatonin 3 MG Oral Tablet Melatonin (Melatin) 3 mg Ta blet Melatonin (Melatin) 3 mg Tablet 07/07/2019 02:42:31 PM EST 3 MG completed [facility] Famotidine 20 MG Oral Tablet Famotidine 07/07/2019 02:42:31 PM EST 20 MG completed [facility] Famotidine 20 MG Oral Tablet Famotidine 07/07/2019 02:42:31 PM EST 20 MG completed [facility] Melatonin 3 MG Oral Tablet Melatonin (Melatin) 3 mg Ta blet Melatonin (Melatin) 3 mg Tablet 07/07/2019 02:42:31 PM EST 3 MG completed [facility] Hydralazine Hydrochloride 10 MG Oral Tablet Hydralazine 07/07/2019 02:42:31 PM EST 10 MG completed [facility] duloxetine Duloxetine Duloxetine 07/07/2019 02:42:31 PM EST 60 M G completed [facility] Melatonin 3 MG Oral Tablet Melatonin (Melatin) 3 mg Ta blet Melatonin (Melatin) 3 mg Tablet 07/07/2019 02:42:31 PM EST 3 MG completed [facility] Famotidine 20 MG Oral Tablet Famotidine 07/07/2019 02:42:31 PM EST 20 MG completed [facility] Melatonin 3 MG Oral Tablet Melatonin (Melatin) 3 mg Ta blet Melatonin (Melatin) 3 mg Tablet 07/07/2019 02:42:31 PM EST 3 MG completed [facility] Lisinopril 20 MG Oral Tablet Lisinopril 07/06/2019 02:30:43 PM EST 40 MG completed [facility] Warfarin Sodium 2.5 MG Oral Tablet Warfarin (Coumadin) 2.5 mg Tablet Warfarin (Coumadin) 2.5 mg Tablet 07/06/2019 02:30:43 PM EST 0 completed [facility] Lisinopril 20 MG Oral Tablet Lisinopril 07/06/2019 02:30:43 PM EST 40 MG completed [facility] Warfarin Sodium 2.5 MG Oral Tablet Warfarin (Coumadin) 2.5 mg Tablet Warfarin (Coumadin) 2.5 mg Tablet 07/06/2019 02:30:43 PM EST 0 completed [facility] Warfarin Sodium 2.5 MG Oral Tablet Warfarin (Coumadin) 2.5 mg Tablet Warfarin (Coumadin) 2.5 mg Tablet 07/06/2019 02:30:43 PM EST 0 completed [facility] Lisinopril 20 MG Oral Tablet Lisinopril 07/06/2019 02:30:43 PM EST 40 MG completed [facility] Warfarin Sodium 5 MG Oral Tablet Warfarin (Coumadin) 5 mg Tablet Warfarin (Coumadin) 5 mg Tablet 07/06/2019 02:30:43 PM EST 0 completed [facility] Warfarin Sodium 2.5 MG Oral Tablet Warfarin (Coumadin) 2.5 mg Tablet Warfarin (Coumadin) 2.5 mg Tablet 07/06/2019 02:30:43 PM EST 0 completed [facility] Warfarin Sodium 2.5 MG Oral Tablet Warfarin (Coumadin) 2.5 mg Tablet Warfarin (Coumadin) 2.5 mg Tablet 07/06/2019 02:30:43 PM EST 0 completed [facility] Warfarin Sodium 5 MG Oral Tablet Warfarin (Coumadin) 5 mg Tablet Warfarin (Coumadin) 5 mg Tablet 07/06/2019 02:30:43 PM EST 0 completed [facility] Warfarin Sodium 2.5 MG Oral Tablet Warfarin (Coumadin) 2.5 mg Tablet Warfarin (Coumadin) 2.5 mg Tablet 07/06/2019 02:30:43 PM EST 0 completed [facility] Lisinopril 20 MG Oral Tablet Lisinopril 07/06/2019 02:30:43 PM EST 40 MG completed [facility] Warfarin Sodium 2.5 MG Oral Tablet Warfarin (Coumadin) 2.5 mg Tablet Warfarin (Coumadin) 2.5 mg Tablet 07/06/2019 02:30:43 PM EST 0 completed [facility] Warfarin Sodium 5 MG Oral Tablet Warfarin (Coumadin) 5 mg Tablet Warfarin (Coumadin) 5 mg Tablet 07/06/2019 02:30:43 PM EST 0 completed [facility] Lisinopril 20 MG Oral Tablet Lisinopril 07/06/2019 02:30:43 PM EST 40 MG completed [facility] Lisinopril 20 MG Oral Tablet Lisinopril 07/06/2019 02:30:43 PM EST 40 MG completed [facility] Warfarin Sodium 5 MG Oral Tablet Warfarin (Coumadin) 5 mg Tablet Warfarin (Coumadin) 5 mg Tablet 07/06/2019 02:30:43 PM EST 0 completed [facility] Warfarin Sodium 5 MG Oral Tablet Warfarin (Coumadin) 5 mg Tablet Warfarin (Coumadin) 5 mg Tablet 07/06/2019 02:30:43 PM EST 0 completed [facility] Warfarin Sodium 5 MG Oral Tablet Warfarin (Coumadin) 5 mg Tablet Warfarin (Coumadin) 5 mg Tablet 07/06/2019 02:30:43 PM EST 0 completed [facility] Warfarin Sodium 5 MG Oral Tablet Warfarin (Coumadin) 5 mg Tablet Warfarin (Coumadin) 5 mg Tablet 07/06/2019 02:30:43 PM EST 0 completed [facility] Metformin hydrochloride 1000 MG Oral Tab let metFORMIN (GLUCOPHAGE) 1,000 mg tablet metFORMIN (GLUCOPHAGE) 1,000 mg tablet 1000 mg oral aborted Take 1,000 mg by mouth 2 (two) times a day with meals. MELATONIN PO Oral aborted Take by m outh [facility] aripiprazole 10 MG Oral Tablet ARIPiprazole (ABILIFY) 10 MG tablet ARIPiprazole (ABILIFY) 10 MG tablet 10 mg Oral aborted T miller 10 mg by mouth daily [facility] apixaban 5 MG Oral Tablet apixaban (Eliquis) 5 mg tabl et apixaban (Eliquis) 5 mg tablet 5 mg oral aborted Take 5 m g by mouth 2 (two) times a day. Stop eliquis 06/11/20 pre ep procedure Insurance Providers Payer name Policy type / Coverage type Policy ID Covered constitution party ID Covered constitution party's relationship to byrne Policy [place] Plan Information MEDICARE A [id number] Self [id number] MEDICARE A [id number] Self [id number] MEDICARE [id number] Petra [id number] [id number] OTHER B [id number] Self [id number] OTHER B [id number] Self [id number] HUMANA [id number] Self [id number] WELLCARE MEDICARE [id number] Petra [id number] WELLCARE MEDICARE HMO G [id number] Self [id number] HUMANA [id number] HUMANA [id number] Self [id number] HUMANA MEDICARE ADVANTAGE [id number] Self [id number] HUMANA [id number] Self [id number] INSURANCE COVID-19 COVID Petra C OVID [facility] [place] [employer] [place]/ [id number] Self [id number] WPS [id number] [facility] [id number] SP [id number] COMMERCIAL GENERIC [id number] xxxxxxxxx 2 [id number] COMMERCIAL GENERIC [id number] Petra [id number] NOVITAS PART B C [id number] S [id number] ANSI-Medicare Part B [id number] ANSI-Medicare Part B [id number] [place] [id number] SP [id number] MEDICARE PI PI HUMANA HMO [id number] SP [id number] ADMINSTRATION -O/P [id number] 18 [id number] MEDICARE PART A -O/P [id number] 18 [id number] [place] [id number] SP [id number] 'S ADMINISTRATION [id number] SP [id number] MEDICARE [id number] SP [id number] COMMERCIAL GENERIC [id number] Petra 2 [id number] COMMERCIAL GENERIC [id number] xxxxxxxxx 2 [id number] COMMERCIAL GENERIC [id number] Petra 2 [id number] OTHER B [id number] Self [id number] [facility] O [id number] S [id number] MEDICARE C [id number] S [id number] O [id number] S [id number] Problems, Conditions, and Diagnoses Code Display Name Description Problem Type Effective Dates Data Source(s) B95066 Bathroom of unspecified non- institutional (private) residence as the place of occurrence of the external cause Bathroom of unspecified non- institutional (private) residence as the place of occurrence of the external cause Diagnosis 02/19/2021 07:03:00 AM [facility] [id number] Unspecified fall, initial encounter Unspecified fall, initial encounter Diagnosis 02/19/2021 07:03:00 AM [facility] Z7984 prison (current) use of oral hypoglyc emic drugs prison (current) use of oral hypoglycemic drugs Diagnosis 02/19/2021 07:03:00 AM [facility] [id number] Presence of automatic (implantable) card iac defibrillator Presence of automatic (implantable) cardiac defibrillator Diagnosis 02/20/20 07:03:00 AM [facility] [id number] Personal history of pulmonary embolism P ersonal history of pulmonary embolism Diagnosis 02/19/2021 07:03:00 AM [facility] Z955 Presence of coronary angioplasty implant and graft Presence of coronary angioplasty implant and graft Diagnosis 02/19/2021 07:03:00 AM [facility] Z8673 Personal history of transien t ischemic attack (TIA), and cerebral infarction without residual deficits Personal history of transient ischemic attack (TIA), and cerebral infarction without residual deficits Diagnosis 02/19/2021 07:03:00 AM [facility] R31849 Nicotine dependence, cigarettes, uncompl icated Nicotine dependence, cigarettes, uncomplicated Diagnosis 02/19/2021 07:03:00 AM [facility] I10 Essential (primary) hypertension Essential (primary) h ypertension Diagnosis 02/19/2021 07:03:00 AM [facility] 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 M779 Enthesopathy, unspecified Enthesopathy, unspecified Di agnosis 02/19/2021 07:03:00 AM EDT [facility] [id number] Strain of other muscles, fas clemencia and tendons at shoulder and upper arm level, left arm, initial encounter Strain of other muscles, fascia and tend ons at shoulder and upper arm level, left arm, initial encounter Diagnosis 02/19/2021 07:03:00 AM EDT [facility] [id number] Sprain of left rotator cuff capsule, ini tial encounter Sprain of left rotator cuff capsule, initial encounter Diagnosis 02/19/2021 07:03:00 AM EDT [facility] [id number] Pain in left shoulder Pain in left shoulder Diagnosis 02/19/2021 07:03:00 AM EDT [facility] R55 Syncope and collapse Syncope and collapse Diagnosis 07/11/2020 06:20:00 PM [facility] RECURRENT SYNCOPE; ENDOCARDITIS RECURRENT SYNCOPE; END OCARDITIS Diagnosis 07/11/2020 06:20:00 PM [facility] T82.7XXA Infection and inflammatory r eaction due to other cardiac and vascular devices, implants and grafts, initial encounter Infection and inflammatory reaction due Diagnosis 06/21/2020 02:44:36 PM [facility] R07.9 Chest pain, unspecified Chest pain, unspecified Diagno sis 06/16/2020 11:42:00 AM [facility] Endocarditis Endocarditis Diagnosis 06/16/2020 11:42:00 A M [facility] I25.10 [id number] Coronary artery dise ase involving ewiiaapaayp coronary artery of ewiiaapaayp heart without angina pectoris Problem 01/19/2021 12:00:00 AM EDT eCW1 ([facility]) N40.0 [id number] Benign prostatic hyp erplasia without lower urinary tract symptoms Problem 01/19/2021 12:00:00 AM EDT eCW1 ([facility]) E11.9 [id number] Controlled type 2 di abetes mellitus without complication, without long-term current use of insulin Problem 01/19/2021 12:00:00 AM EDT eCW1 ([facility]) I10 [id number] Essential hypertension Problem 01/19/2021 12 :00:00 AM EDT eCW1 ([facility]) Z86.711 [id number] History of pulmonary embolism Problem 01/19/2021 12:00:00 AM EDT eCW1 ([facility]) I48.0 Paroxysmal atrial fibrillation Paroxysmal atrial fibri llation [id number] 06/21/2020 12:00:00 AM EST [facility] 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 [id number] 06/21/2020 12:00:00 AM EST [facility] E78.5 Hyperlipidemia Hyperlipidemia [id number] 06/21/2020 12:00: 00 AM EST [facility] I25.10 Coronary artery disease due to lipid kamilah h plaque Coronary artery disease due to lipid rich plaque [id number] 06/21/2020 12:00:00 AM EST [facility] I63.9 Cerebral artery occlusion Cerebral artery occlusion Pr oblem 06/06/2020 12:00:00 AM EST [facility] ([facility]) I21.9 Acute myocardial infarction Acute myocardial infarctio n Problem 06/06/2020 12:00:00 AM EST [facility] ([facility]) Z95.0 Cardiac pacemaker in situ Cardiac pacemaker in situ Pr oblem 06/06/2020 12:00:00 AM EST [facility] ([facility]) E78.2 Mixed hyperlipidemia Mixed hyperlipidemia Problem 06/06/2020 12:00:00 AM EST [facility] ([facility]) I48.21 Permanent atrial fibrillation Permanent atrial fibrill ation Problem 06/06/2020 12:00:00 AM EST [facility] ([facility]) Surgeries/Procedures Procedure Description Date Indications Data Source(s) Wearable Defibrillator System 09/06/2020 12:00:00 AM E DT [facility] ([facility]) Wearable Defibrillator System 08/02/2020 12:00:[address] [facility]) Wearable Defibrillator System 08/01/2020 12:00:[address] [facility] ([facility]) POCT GLUCOSE METER UNSOLICITED RESULTS <td>POCT GLUCOS E METER UNSOLICITED RESULTS</td><td>Routine</td><td>07/15/2020 11:17 AM EST</td><td></td><td> </td> 07/15/2020 11:17:00 AM EST POCT GLUCOSE METER UNSOLICITED RESULTS <td>POCT GLUCOS E METER UNSOLICITED RESULTS</td><td>Routine</td><td>07/15/2020 7:20 AM EST</td><td></td><td> </td> 07/15/2020 07:20:00 AM EST BLOOD COUNT COMPLETE AUTO&AUTO DIFRNTL WBC COUNT <td>H C CBC W/ DIFFERENTIAL</td><td>Routine</td><td>07/15/2020 4:35 AM EST</td><td></td><td> </td> 07/15/2020 04:35:00 AM EST COMPREHENSIVE METABOLIC PANEL <td>COMPREHENSIVE METABO LIC PANEL</td><td>Routine</td><td>07/15/2020 4:35 AM EST</td><td></td><td> </td> 07/15/2020 04:35:00 AM EST POCT GLUCOSE METER UNSOLICITED RESULTS <td>POCT GLUCOS E METER UNSOLICITED RESULTS</td><td>Routine</td><td>07/14/2020 8:37 PM EST</td><td></td><td> </td> 07/14/2020 08:37:00 PM EST POCT GLUCOSE METER UNSOLICITED RESULTS <td>POCT GLUCOS E METER UNSOLICITED RESULTS</td><td>Routine</td><td>07/14/2020 4:48 PM EST</td><td></td><td> </td> 07/14/2020 04:48:00 PM EST POCT GLUCOSE METER UNSOLICITED RESULTS <td>POCT GLUCOS E METER UNSOLICITED RESULTS</td><td>Routine</td><td>07/14/2020 11:50 AM EST</td><td></td><td> </td> 07/14/2020 11:50:00 AM EST POCT GLUCOSE METER UNSOLICITED RESULTS <td>POCT GLUCOS E METER UNSOLICITED RESULTS</td><td>Routine</td><td>07/14/2020 7:36 AM EST</td><td></td><td> </td> 07/14/2020 07:36:00 AM [facility] BLOOD COUNT COMPLETE AUTO&AUTO DIFRNTL WBC COUNT <td>H C CBC W/ DIFFERENTIAL</td><td>STAT</td><td>07/14/2020 4:56 AM EST</td><td></td><td> </td> 07/14/2020 04:56:00 AM [facility] BASIC METABOLIC PANEL CALCIUM TOTAL <td>BASIC METABOLI C PANEL</td><td>STAT</td><td>07/14/2020 4:56 AM EST</td><td></td><td> </td> 07/14/2020 04:56:00 AM EST POCT GLUCOSE METER UNSOLICITED RESULTS <td>POCT GLUCOS E METER UNSOLICITED RESULTS</td><td>Routine</td><td>07/13/2020 8:59 PM EST</td><td></td><td> </td> 07/13/2020 08:59:00 PM EST POCT GLUCOSE METER UNSOLICITED RESULTS <td>POCT GLUCOS E METER UNSOLICITED RESULTS</td><td>Routine</td><td>07/13/2020 4:02 PM EST</td><td></td><td> </td> 07/13/2020 04:02:00 PM EST POCT GLUCOSE METER UNSOLICITED RESULTS <td>POCT GLUCOS E METER UNSOLICITED RESULTS</td><td>Routine</td><td>07/13/2020 12:01 PM EST</td><td></td><td> </td> 07/13/2020 12:01:00 PM EST POCT GLUCOSE METER UNSOLICITED RESULTS <td>POCT GLUCOS E METER UNSOLICITED RESULTS</td><td>Routine</td><td>07/13/2020 8:54 AM EST</td><td></td><td> </td> 07/13/2020 08:54:00 AM [facility] ELECTROENCEPHALOGRAM W/REC AWAKE&ASLEEP <td>EEG- INPATIENT</td><td>Routine</td><td>07/13/2020 8:26 AM EST</td><td></td><td> </td> 07/13/2020 08:26:43 AM [facility] BLOOD COUNT COMPLETE AUTO&AUTO DIFRNTL WBC COUNT <td>H C CBC W/ DIFFERENTIAL</td><td>Routine</td><td>07/13/2020 4:53 AM EST</td><td></td><td> </td> 07/13/2020 04:53:00 AM [facility] BASIC METABOLIC PANEL CALCIUM TOTAL <td>BASIC METABOLI C PANEL</td><td>Routine</td><td>07/13/2020 4:53 AM EST</td><td></td><td> </td> 07/13/2020 04:53:00 AM EST POCT GLUCOSE METER UNSOLICITED RESULTS <td>POCT GLUCOS E METER UNSOLICITED RESULTS</td><td>Routine</td><td>07/12/2020 9:33 PM EST</td><td></td><td> </td> 07/12/2020 09:33:00 PM EST POCT GLUCOSE METER UNSOLICITED RESULTS <td>POCT GLUCOS E METER UNSOLICITED RESULTS</td><td>Routine</td><td>07/12/2020 5:14 PM EST</td><td></td><td> </td> 07/12/2020 05:14:00 PM EST DUPLEX SCAN EXTRACRANIAL ART COMPL BI STUDY <td>ULTRAS OUND CAROTID DOPPLER BILATERAL</td><td>Routine</td><td>07/12/2020 5:01 PM EST</td><td></td><td> </td> 07/12/2020 05:01:55 PM EST POCT GLUCOSE METER UNSOLICITED RESULTS <td>POCT GLUCOS E METER UNSOLICITED RESULTS</td><td>Routine</td><td>07/12/2020 12:36 PM EST</td><td></td><td> </td> 07/12/2020 12:36:00 PM EST ECHO TTHRC R-T 2D W/WOM-MODE COMPL SPEC&COLR DOP <td>E CHO 2D MODE PANEL (WITH COLOR FLOW AND DOPPLER)</td><td>Routine</td><td>07/12/2020 9:54 AM EST</td><td></td><td> </td> 07/12/2020 09:54:03 AM EST XR CHEST 1 VIEW <td>XR CHEST 1 VIEW</td><td> Routine</td><td>07/12/2020 8:21 AM EST</td><td></td><td> </td> 07/12/2020 08:21:42 AM EST POCT GLUCOSE METER UNSOLICITED RESULTS <td>POCT GLUCOS E METER UNSOLICITED RESULTS</td><td>Routine</td><td>07/12/2020 7:28 AM EST</td><td></td><td> </td> 07/12/2020 07:28:00 AM EST NATRIURETIC PEPTIDE <td>N-TERMINAL PROBNP (BNP)</td><td>Routine</td><td>07/12/2020 4:29 AM EST</td><td></td><td> </td> 07/12/2020 04:29:00 AM [facility] PROCALCITONIN TEST <td>PROCALCITONIN TEST</td>< td>Routine</td><td>07/12/2020 4:29 AM EST</td><td></td><td> </td> 07/12/2020 04:29:00 AM EST TROPONIN QUANTITATIVE <td>TROPONIN I</td><td>Routi ne</td><td>07/12/2020 4:29 AM EST</td><td></td><td> </td> 07/12/2020 04:29:00 AM [facility] BLOOD COUNT COMPLETE AUTO&AUTO DIFRNTL WBC COUNT <td>H C CBC W/ DIFFERENTIAL</td><td>Routine</td><td>07/12/2020 4:29 AM EST</td><td></td><td> </td> 07/12/2020 04:29:00 AM EST MAGNESIUM <td>MAGNESIUM</td><td>Routin e</td><td>07/12/2020 4:29 AM EST</td><td></td><td> </td> 07/12/2020 04:29:00 AM EST BASIC METABOLIC PANEL CALCIUM TOTAL <td>BASIC METABOLI C PANEL</td><td>Routine</td><td>07/12/2020 4:29 AM EST</td><td></td><td> </td> 07/12/2020 04:29:00 AM EST POCT GLUCOSE METER UNSOLICITED RESULTS <td>POCT GLUCOS E METER UNSOLICITED RESULTS</td><td>Routine</td><td>07/12/2020 12:04 AM EST</td><td></td><td> </td> 07/12/2020 12:04:00 AM EST Echocardiography, Profl,Tranthoracic, Realtime Image Documen alicia 07/12/2020 12:00:00 AM EST [facility] ([facility]) CULTURE BACTERIAL BLOOD AEROBIC W/ID ISOLATES <td>BLOO D CULTURE</td><td>STAT</td><td>07/11/2020 9:37 PM EST</td><td></td><td></td> 07/11/2020 09:37:00 PM EST TROPONIN QUANTITATIVE <td>TROPONIN I</td><td>Routi ne</td><td>07/11/2020 9:29 PM EST</td><td></td><td> </td> 07/11/2020 09:29:00 PM EST CULTURE BACTERIAL BLOOD AEROBIC W/ID ISOLATES <td>BLOO D CULTURE</td><td>STAT</td><td>07/11/2020 9:29 PM EST</td><td></td><td></td> 07/11/2020 09:29:00 PM [facility] C-REACTIVE PROTEIN <td>C-REACTIVE PROTEIN</td>< td>Routine</td><td>07/11/2020 9:29 PM EST</td><td></td><td> </td> 07/11/2020 09:29:00 PM [facility] Plain chest X-ray (procedure) 07/11/2020 03:06:00 PM [facility] 07/11/2020 12:00:[address] [facility] Influenza-Like Illness (PCR) 07/11/2020 12:00:00 AM [facility] Magnetic resonance imaging of lumbar spine with contrast (pr ocedure) 07/10/2020 10:31:00 AM [facility] Magnetic resonance imaging of lumbar spine with contrast (pr ocedure) 07/10/2020 10:31:00 AM [facility] Plain chest X-ray (procedure) 07/05/2020 05:23:00 PM [facility] Plain chest X-ray (procedure) 07/05/2020 05:23:00 PM [facility] Plain chest X-ray (procedure) 07/05/2020 05:23:00 PM [facility] CT Head without contrast 07/05/2020 04:36:00 PM [facility] CT Head without contrast 07/05/2020 04:36:00 PM [facility] CT Head without contrast 07/05/2020 04:36:00 PM [facility] Blood culture for bacteria, including anaerobic screen (proc edure) 07/05/2020 12:00:00 AM [facility] Blood culture for bacteria, including anaerobic screen (proc edure) 07/05/2020 12:00:00 AM [facility] Blood Culture 07/05/2020 12:00:00 AM EST [facility] GLUC BLD GLUC MNTR DEV CLEARED FDA SPEC HOME USE <td>P OCT GLUCOSE</td><td>Routine</td><td>06/23/2020 11:33 AM EST</td><td></td><td> </td> 06/23/2020 04:33:00 PM EST [facility] GLUC BLD GLUC MNTR DEV CLEARED FDA SPEC HOME USE <td>P OCT GLUCOSE</td><td>Routine</td><td>06/23/2020 7:38 AM EST</td><td></td><td> </td> 06/23/2020 12:38:00 PM EST [facility] BLOOD COUNT COMPLETE AUTOMATED <td>CBC</td><td>Timed</ td><td>06/23/2020 5:50 AM EST</td><td></td><td> </td> 06/23/2020 10:50:00 AM EST [facility] BASIC METABOLIC PANEL CALCIUM TOTAL <td>BASIC METABOLI C PANEL</td><td>Timed</td><td>06/23/2020 5:50 AM EST</td><td></td><td> </td> 06/23/2020 10:50:00 AM EST [facility] GLUC BLD GLUC MNTR DEV CLEARED FDA SPEC HOME USE <td>P OCT GLUCOSE</td><td>Routine</td><td>06/22/2020 4:58 PM EST</td><td></td><td> </td> 06/22/2020 09:58:00 PM EST [facility] XR CHEST PORTABLE <td>XR CHEST PORTABLE</td><t d>STAT</td><td>06/22/2020 2:46 PM EST</td><td></td><td> </td> 06/22/2020 07:46:35 PM EST [facility] FLUOROSCOPY SPX <1 HOUR PHYSICIAN TIME <td>XR FLUORO U P TO 1 HR</td><td>STAT</td><td>06/22/2020 2:24 PM EST</td><td></td><td> </td> 06/22/2020 07:24:13 PM EST [facility] CULTURE BACTERIAL ANY SOURCE ANAEROBIC ISO&ID <td>ANAE ROBIC TISSUE / BONE CULTURE</td><td>Timed</td><td>06/22/2020 1:23 PM EST</td><td></td><td> </td> 06/22/2020 06:23:00 PM EST [facility] CULTURE BACTERIAL ANY SOURCE ANAEROBIC ISO&ID <td>ANAE ROBIC TISSUE / BONE CULTURE</td><td>Timed</td><td>06/22/2020 1:23 PM EST</td><td></td><td> </td> 06/22/2020 06:23:00 PM EST [facility] CUL BACT ADRIANA AEROBIC ISOL XCPT UR BLOOD/STOOL <td>TIS RADHA / BONE CULTURE</td><td>Timed</td><td>06/22/2020 1:23 PM EST</td><td></td><td> </td> 06/22/2020 06:23:00 PM EST [facility] CUL BACT ADRIANA AEROBIC ISOL XCPT UR BLOOD/STOOL <td>TIS RADHA / BONE CULTURE</td><td>Timed</td><td>06/22/2020 1:23 PM EST</td><td></td><td> </td> 06/22/2020 06:23:00 PM EST [facility] ECG TRANSESOPHAG R-T 2D W/PRB IMG ACQUISJ I&R <td>ECHO CARDIOGRAM TRANSESOPHAGEAL</td><td>Routine</td><td>06/22/2020 12:47 PM EST</td><td></td><td> </td> 06/22/2020 05:47:57 PM EST [facility] BLOOD TYPING ABO <td>TYPE AND SCREEN</td><td> STAT</td><td>06/22/2020 12:05 PM EST</td><td></td><td> </td> 06/22/2020 05:05:00 PM EST [facility] GLUC BLD GLUC MNTR DEV CLEARED FDA SPEC HOME USE <td>P OCT GLUCOSE</td><td>Routine</td><td>06/22/2020 11:31 AM EST</td><td></td><td> </td> 06/22/2020 04:31:00 PM EST [facility] GLUC BLD GLUC MNTR DEV CLEARED FDA SPEC HOME USE <td>P OCT GLUCOSE</td><td>Routine</td><td>06/22/2020 7:32 AM EST</td><td></td><td> </td> 06/22/2020 12:32:00 PM EST [facility] BLOOD COUNT COMPLETE AUTOMATED <td>CBC</td><td>Routine </td><td>06/22/2020 5:50 AM EST</td><td></td><td> </td> 06/22/2020 10:50:00 AM EST [facility] BASIC METABOLIC PANEL CALCIUM TOTAL <td>BASIC METABOLI C PANEL</td><td>Routine</td><td>06/22/2020 5:50 AM EST</td><td></td><td> </td> 06/22/2020 10:50:00 AM EST [facility] THROMBOPLASTIN TIME PARTIAL PLASMA/WHOLE BLOOD <td>APTT</td><td>STAT</td><td>06/21/2020 8:25 PM EST</td><td></td><td> </td> 06/22/2020 01:25:00 AM EST [facility] PROTHROMBIN TIME <td>PROTIME-INR</td><td>STAT </td><td>06/21/2020 8:25 PM EST</td><td></td><td> </td> 06/22/2020 01:25:00 AM EST [facility] GLUC BLD GLUC MNTR DEV CLEARED FDA SPEC HOME USE <td>P OCT GLUCOSE</td><td>Routine</td><td>06/21/2020 6:22 PM EST</td><td></td><td> </td> 06/21/2020 11:22:00 PM EST [facility] HEMOGLOBIN GLYCOSYLATED A1C <td>HEMOGLOBIN A1C</td><td>Routine</td><td>06/21/2020 6:00 PM EST</td><td></td><td> </td> 06/21/2020 11:00:00 PM EST [facility] 2019 NCOV AMPLIFIED <td>2019 NCOV AMPLIFIED</td> <td>STAT</td><td>06/21/2020 3:45 PM EST</td><td></td><td> </td> 06/21/2020 08:45:00 PM EST [facility] POCT GLUCOSE METER UNSOLICITED RESULTS <td>POCT GLUCOS E METER UNSOLICITED RESULTS</td><td>Routine</td><td>06/21/2020 7:33 AM EST</td><td></td><td> </td> 06/21/2020 07:33:00 AM EST BLOOD COUNT COMPLETE AUTOMATED <td>CBC</td><td>Routine </td><td>06/21/2020 5:00 AM EST</td><td></td><td> </td> 06/21/2020 05:00:00 AM EST MAGNESIUM <td>MAGNESIUM</td><td>Routin e</td><td>06/21/2020 5:00 AM EST</td><td></td><td> </td> 06/21/2020 05:00:00 AM [facility] COMPREHENSIVE METABOLIC PANEL <td>COMPREHENSIVE METABO LIC PANEL</td><td>Routine</td><td>06/21/2020 5:00 AM EST</td><td></td><td> </td> 06/21/2020 05:00:00 AM [facility] POCT GLUCOSE METER UNSOLICITED RESULTS <td>POCT GLUCOS E METER UNSOLICITED RESULTS</td><td>Routine</td><td>06/20/2020 7:35 PM EST</td><td></td><td> </td> 06/20/2020 07:35:00 PM EST POCT GLUCOSE METER UNSOLICITED RESULTS <td>POCT GLUCOS E METER UNSOLICITED RESULTS</td><td>Routine</td><td>06/20/2020 5:12 PM EST</td><td></td><td> </td> 06/20/2020 05:12:00 PM EST POCT GLUCOSE METER UNSOLICITED RESULTS <td>POCT GLUCOS E METER UNSOLICITED RESULTS</td><td>Routine</td><td>06/20/2020 2:14 PM EST</td><td></td><td> </td> 06/20/2020 02:14:00 PM EST POCT GLUCOSE METER UNSOLICITED RESULTS <td>POCT GLUCOS E METER UNSOLICITED RESULTS</td><td>Routine</td><td>06/20/2020 7:28 AM EST</td><td></td><td> </td> 06/20/2020 07:28:00 AM EST BASIC METABOLIC PANEL CALCIUM TOTAL <td>BASIC METABOLI C PANEL</td><td>Routine</td><td>06/20/2020 4:58 AM EST</td><td></td><td> </td> 06/20/2020 04:58:00 AM EST BLOOD COUNT COMPLETE AUTO&AUTO DIFRNTL WBC COUNT <td>H C CBC W/ DIFFERENTIAL</td><td>Routine</td><td>06/20/2020 4:57 AM EST</td><td></td><td> </td> 06/20/2020 04:57:00 AM EST POCT GLUCOSE METER UNSOLICITED RESULTS <td>POCT GLUCOS E METER UNSOLICITED RESULTS</td><td>Routine</td><td>06/19/2020 9:00 PM EST</td><td></td><td> </td> 06/19/2020 09:00:00 PM EST POCT GLUCOSE METER UNSOLICITED RESULTS <td>POCT GLUCOS E METER UNSOLICITED RESULTS</td><td>Routine</td><td>06/19/2020 4:03 PM EST</td><td></td><td> </td> 06/19/2020 04:03:00 PM [facility] XR CHEST 1 VIEW <td>XR CHEST 1 VIEW</td><td> Routine</td><td>06/19/2020 12:14 PM EST</td><td></td><td> </td> 06/19/2020 12:14:01 PM [facility] POCT GLUCOSE METER UNSOLICITED RESULTS <td>POCT GLUCOS E METER UNSOLICITED RESULTS</td><td>Routine</td><td>06/19/2020 11:42 AM EST</td><td></td><td> </td> 06/19/2020 11:42:00 AM [facility] ECG TRANSESOPHAG R-T 2D W/PRB IMG ACQUISJ I&R <td>DANIELE</td><td>Routine</td><td>06/19/2020 10:54 AM EST</td><td></td><td> </td> 06/19/2020 10:54:14 AM [facility] BLOOD COUNT COMPLETE AUTO&AUTO DIFRNTL WBC COUNT <td>H C CBC W/ DIFFERENTIAL</td><td>Routine</td><td>06/19/2020 5:00 AM EST</td><td></td><td> </td> 06/19/2020 05:00:00 AM [facility] COMPREHENSIVE METABOLIC PANEL <td>COMPREHENSIVE METABO LIC PANEL</td><td>Routine</td><td>06/19/2020 5:00 AM EST</td><td></td><td> </td> 06/19/2020 05:00:00 AM EST BASIC METABOLIC PANEL CALCIUM TOTAL <td>BASIC METABOLI C PANEL</td><td>Routine</td><td>06/19/2020 5:00 AM EST</td><td></td><td> </td> 06/19/2020 05:00:00 AM EST Echocardiography Transesophageal W/Probe Place/Image Acq/Rep ort 06/19/2020 12:00:00 AM EST [facility] ([facility]) Doppler Echocardiography Complete, Profl 06/19/2020 12 :00:00 AM EST [facility] ([facility]) Moderate Sedation Services; Same Phys Intl 15 Mins; PT >= 5 Years 06/19/2020 12:00:00 AM EST [facility] ([facility]) POCT GLUCOSE METER UNSOLICITED RESULTS <td>POCT GLUCOS E METER UNSOLICITED RESULTS</td><td>Routine</td><td>06/18/2020 9:21 PM EST</td><td></td><td> </td> 06/18/2020 09:21:00 PM EST POCT GLUCOSE METER UNSOLICITED RESULTS <td>POCT GLUCOS E METER UNSOLICITED RESULTS</td><td>Routine</td><td>06/18/2020 4:08 PM EST</td><td></td><td> </td> 06/18/2020 04:08:00 PM EST POCT GLUCOSE METER UNSOLICITED RESULTS <td>POCT GLUCOS E METER UNSOLICITED RESULTS</td><td>Routine</td><td>06/18/2020 11:27 AM EST</td><td></td><td> </td> 06/18/2020 11:27:00 AM EST POCT GLUCOSE METER UNSOLICITED RESULTS <td>POCT GLUCOS E METER UNSOLICITED RESULTS</td><td>Routine</td><td>06/18/2020 7:20 AM EST</td><td></td><td> </td> 06/18/2020 07:20:00 AM EST BLOOD COUNT COMPLETE AUTO&AUTO DIFRNTL WBC COUNT <td>H C CBC W/ DIFFERENTIAL</td><td>Routine</td><td>06/18/2020 4:30 AM EST</td><td></td><td> </td> 06/18/2020 04:30:00 AM EST BASIC METABOLIC PANEL CALCIUM TOTAL <td>BASIC METABOLI C PANEL</td><td>Routine</td><td>06/18/2020 4:30 AM EST</td><td></td><td> </td> 06/18/2020 04:30:00 AM EST POCT GLUCOSE METER UNSOLICITED RESULTS <td>POCT GLUCOS E METER UNSOLICITED RESULTS</td><td>Routine</td><td>06/17/2020 8:18 PM EST</td><td></td><td> </td> 06/17/2020 08:18:00 PM EST POCT GLUCOSE METER UNSOLICITED RESULTS <td>POCT GLUCOS E METER UNSOLICITED RESULTS</td><td>Routine</td><td>06/17/2020 4:16 PM EST</td><td></td><td> </td> 06/17/2020 04:16:00 PM EST POCT GLUCOSE METER UNSOLICITED RESULTS <td>POCT GLUCOS E METER UNSOLICITED RESULTS</td><td>Routine</td><td>06/17/2020 11:34 AM EST</td><td></td><td> </td> 06/17/2020 11:34:00 AM EST POCT GLUCOSE METER UNSOLICITED RESULTS <td>POCT GLUCOS E METER UNSOLICITED RESULTS</td><td>Routine</td><td>06/17/2020 7:08 AM EST</td><td></td><td> </td> 06/17/2020 07:08:00 AM [facility] BLOOD COUNT COMPLETE AUTO&AUTO DIFRNTL WBC COUNT <td>H C CBC W/ DIFFERENTIAL</td><td>Routine</td><td>06/17/2020 5:00 AM EST</td><td></td><td> </td> 06/17/2020 05:00:00 AM [facility] C-REACTIVE PROTEIN HIGH SENSITIVITY <td>HIGH SENSITIVI TY CRP</td><td>Routine</td><td>06/17/2020 5:00 AM EST</td><td></td><td> </td> 06/17/2020 05:00:00 AM [facility] C-REACTIVE PROTEIN <td>C-REACTIVE PROTEIN</td>< td>Routine</td><td>06/17/2020 5:00 AM EST</td><td></td><td> </td> 06/17/2020 05:00:00 AM [facility] COMPREHENSIVE METABOLIC PANEL <td>COMPREHENSIVE METABO LIC PANEL</td><td>Routine</td><td>06/17/2020 5:00 AM EST</td><td></td><td> </td> 06/17/2020 05:00:00 AM [facility] POCT GLUCOSE METER UNSOLICITED RESULTS <td>POCT GLUCOS E METER UNSOLICITED RESULTS</td><td>Routine</td><td>06/16/2020 8:14 PM EST</td><td></td><td> </td> 06/16/2020 08:14:00 PM EST CULTURE BACTERIAL BLOOD AEROBIC W/ID ISOLATES <td>BLOO D CULTURE</td><td>STAT</td><td>06/16/2020 4:21 PM EST</td><td></td><td></td> 06/16/2020 04:21:00 PM EST CULTURE BACTERIAL BLOOD AEROBIC W/ID ISOLATES <td>BLOO D CULTURE</td><td>STAT</td><td>06/16/2020 4:21 PM EST</td><td></td><td></td> 06/16/2020 04:21:00 PM [facility] BLOOD COUNT COMPLETE AUTO&AUTO DIFRNTL WBC COUNT <td>H C CBC W/ DIFFERENTIAL</td><td>STAT</td><td>06/16/2020 4:21 PM EST</td><td></td><td> </td> 06/16/2020 04:21:00 PM [facility] MAGNESIUM <td>MAGNESIUM</td><td>STAT</ td><td>06/16/2020 4:21 PM EST</td><td></td><td> </td> 06/16/2020 04:21:00 PM [facility] COMPREHENSIVE METABOLIC PANEL <td>COMPREHENSIVE METABO LIC PANEL</td><td>STAT</td><td>06/16/2020 4:21 PM EST</td><td></td><td> </td> 06/16/2020 04:21:00 PM [facility] POCT GLUCOSE METER UNSOLICITED RESULTS <td>POCT GLUCOS E METER UNSOLICITED RESULTS</td><td>Routine</td><td>06/16/2020 3:30 PM EST</td><td></td><td> </td> 06/16/2020 03:30:00 PM [facility] 06/16/2020 12:00:[address] [facility] Influenza-Like Illness (PCR) 06/16/2020 12:00:00 AM [facility] 06/16/2020 12:00:[address] [facility] Influenza-Like Illness (PCR) 06/16/2020 12:00:00 AM [facility] 06/16/2020 12:00:[address] [facility] Influenza-Like Illness (PCR) 06/16/2020 12:00:00 AM [facility] 06/16/2020 12:00:[address] [facility] Influenza-Like Illness (PCR) 06/16/2020 12:00:00 AM [facility] Plain chest X-ray (procedure) 06/13/2020 11:25:00 AM [facility] Plain chest X-ray (procedure) 06/13/2020 11:25:00 AM [facility] Plain chest X-ray (procedure) 06/13/2020 11:25:00 AM [facility] Plain chest X-ray (procedure) 06/13/2020 11:25:00 AM [facility] Xray Shoulder complete LT 06/11/2020 04:06:00 PM [facility] Xray Shoulder complete LT 06/11/2020 04:06:00 PM [facility] Xray Shoulder complete LT 06/11/2020 04:06:00 PM [facility] Xray Shoulder complete LT 06/11/2020 04:06:00 PM [facility] Blood culture for bacteria, including anaerobic screen (proc edure) 06/10/2020 12:00:00 AM [facility] l Blood culture for bacteria, including anaerobic screen (proc edure) 06/10/2020 12:00:00 AM [facility] l Blood culture for bacteria, including anaerobic screen (proc edure) 06/10/2020 12:00:00 AM [facility] l Blood culture for bacteria, including anaerobic screen (proc edure) 06/10/2020 12:00:00 AM [facility] l Introduction of Other Anti-infective int o Peripheral Vein, Percutaneous Approach 06/08/2020 12:00:00 AM [facility] Introduction of Electrolytic and Water B alance Substance into Peripheral Vein, Percutaneous Approach 06/08/2020 12:00:00 AM [facility] Introduction of Other Therapeutic Substa nce into Peripheral Vein, Percutaneous Approach 06/08/2020 12:00:00 AM [facility] Introduction of Analgesics, Hypnotics, S edatives into Peripheral Vein, Percutaneous Approach 06/08/2020 12:00:00 AM [facility] Introduction of Other Anti-infective into Central Vein, Perc utaneous Approach 06/08/2020 12:00:[facility], External Approach 06/08/2020 12:00:00 AM [facility] l Insertion of Infusion Device into Upper Vein, Percutaneous A pproach 06/08/2020 12:00:00 AM [facility] l Introduction of Other Anti-infective int o Peripheral Vein, Percutaneous Approach 06/08/2020 12:00:00 AM [facility] Introduction of Electrolytic and Water B alance Substance into Peripheral Vein, Percutaneous Approach 06/08/2020 12:00:00 AM [facility] Introduction of Other Therapeutic Substa nce into Peripheral Vein, Percutaneous Approach 06/08/2020 12:00:00 AM [facility] Introduction of Analgesics, Hypnotics, S edatives into Peripheral Vein, Percutaneous Approach 06/08/2020 12:00:00 AM [facility] Introduction of Other Anti-infective into Central Vein, Perc utaneous Approach 06/08/2020 12:00:00 [facility] of [facility] Electrical Activity, External Approach 06/08/2020 12:00:00 AM [facility] l Insertion of Infusion Device into Upper Vein, Percutaneous A pproach 06/08/2020 12:00:00 AM [facility] l Introduction of Other Anti-infective int o Peripheral Vein, Percutaneous Approach 06/08/2020 12:00:00 AM [facility] Introduction of Electrolytic and Water B alance Substance into Peripheral Vein, Percutaneous Approach 06/08/2020 12:00:00 AM [facility] Introduction of Other Therapeutic Substa nce into Peripheral Vein, Percutaneous Approach 06/08/2020 12:00:00 AM [facility] Introduction of Analgesics, Hypnotics, S edatives into Peripheral Vein, Percutaneous Approach 06/08/2020 12:00:00 AM [facility] Introduction of Other Anti-infective into Central Vein, Perc utaneous Approach 06/08/2020 12:00:00 AM [facility] al Monitoring of Cardiac Electrical Activity, External Approach 06/08/2020 12:00:00 AM [facility] l Insertion of Infusion Device into Upper Vein, Percutaneous A pproach 06/08/2020 12:00:00 AM [facility] Ultrasonography of abdomen (procedure) 06/07/2020 10:4 9:00 AM [facility] Ultrasonography of abdomen (procedure) 06/07/2020 10:4 9:00 AM [facility] Ultrasonography of abdomen (procedure) 06/07/2020 10:4 9:00 AM [facility] Ultrasonography of abdomen (procedure) 06/07/2020 10:4 9:00 AM [facility] Echocardiography (procedure) 06/07/2020 10:27:00 AM [facility] Echocardiography (procedure) 06/07/2020 10:27:00 AM [facility] Echocardiography (procedure) 06/07/2020 10:27:00 AM [facility] Echocardiography (procedure) 06/07/2020 10:27:00 AM [facility] CT Abdomen without contrast 06/07/2020 03:36:00 AM [facility] CT Abdomen without contrast 06/07/2020 03:36:00 AM [facility] CT Abdomen without contrast 06/07/2020 03:36:00 AM [facility] CT Abdomen without contrast 06/07/2020 03:36:00 AM [facility] Computed tomography angiography of thorax (procedure) 06/06/2020 07:29:00 PM [facility] Computed tomography angiography of thorax (procedure) 06/06/2020 07:29:00 PM [facility] Computed tomography angiography of thorax (procedure) 06/06/2020 07:29:00 PM [facility] Computed tomography angiography of thorax (procedure) 06/06/2020 07:29:00 PM [facility] Computed tomography angiography of thorax (procedure) 06/06/2020 07:29:00 PM [facility] Dual Lead Implantable Cardioverter-Defibrillator 06/06 12:00:00 AM EST [facility] ([facility]) 06/06/2020 12:00:[address] [facility] Influenza-Like Illness (PCR) 06/06/2020 12:00:00 AM [facility] Plain chest X-ray (procedure) 05/29/2020 02:34:00 PM E [facility] Plain chest X-ray (procedure) 05/29/2020 02:34:00 PM E [facility] Plain chest X-ray (procedure) 05/29/2020 02:34:00 PM E [facility] Plain chest X-ray (procedure) 05/29/2020 02:34:00 PM E [facility] Plain chest X-ray (procedure) 05/29/2020 02:34:00 PM E [facility] Plain chest X-ray (procedure) 05/29/2020 02:34:00 PM E [facility] Plain chest X-ray (procedure) 05/29/2020 02:34:00 PM [facility] Nucleic acid assay (procedure) 05/29/2020 12:00:00 AM [facility] Nucleic acid assay (procedure) 05/29/2020 12:00:00 AM [facility] Nucleic acid assay (procedure) 05/29/2020 12:00:00 AM [facility] Nucleic acid assay (procedure) 05/29/2020 12:00:00 AM [facility] Nucleic acid assay (procedure) 05/29/2020 12:00:00 AM [facility] Nucleic acid assay (procedure) 05/29/2020 12:00:00 AM [facility] Nucleic acid assay (procedure) 05/29/2020 12:00:00 AM [facility] Results ID Date Data Source [id number] 02/19/2021 06:59:00 PM EDT [facility] [address] [place] [address] PHONE: [phone] FAX: [phone] Name .................. : FRED Peck Acct Number.................. : [id number] [facility]....[facility] ................... : [id number] Stay type ............. : E/R Discharge Date......... ... : 02/19/21 Admit Date ......... : 02/19/21 Admit Phys .................... : LESIA PIMENTEL Date of ....... : 1960 Family Phys ................... : [facility] Phone .................. : [phone] Age ................................ : 60 Film# .................. .:[id number] Sex ................................. : M Unsigned transcriptions are preliminary reports and do not represent a medical or legal document SHOULDER COMP-2 OR MORE [facility] L [id number] COMPLETE:02/19/21 08:30 25801 Reason(s): Shoulder Injury RADIOGRAPHS OF THE LEFT SHOULDER 3 VIEWS INDICATION: Shoulder injury COMPARISON: None. FINDINGS: No acute fracture or dislocation. No focal bone lesion. No widening of the acromioclavicular joint. Visible joint spaces are well preserved. No marginal osteophytes or erosions. No significant soft tissue abnormality. IMPRESSION: Negative study. Electronically Reviewed and Signed By Ibrahima Gonsales MD , 02/19/21 18:59, EDUARDO Transcribe Initials: GALO, Transcribe Date: 02/19/21 11:05, Dictation Date: Copy for: EMERGENCY DEPT via modem Copy for: 710 MED REC DISCHARGED Page 1 of 1 Name Value Range Interpretation Code Description Data Evelin rce(s) Supporting Document(s) ID Date Data Source [id number] 02/19/2021 07:03:00 AM EDT [facility] 1 OrderSheet [facility] Emergency Department [address] [place] [address] Phone #: ext- [phone] 02/19/2021 07:01 Patient: JAGJIT IBARRA Sex: M : 1960 Age: 60yWEIGHT:126.5 kg HEIGHT:72 inches BMI:37.9ALLERGIES: Compazine, Flexeril, ProcardiaCHIEF COMPLAINT: shoulder, LtDIAGNOSIS: Sprain of joint, Tendinitis, Rotator cuff syndromeLAB ORDERSOrder Description Priority Entered Acknowledged InitialedDIAGNOSTIC STUDY ORDERSOrder Description Priority Entered Acknowledged InitialedShoulder Complete STAT 08:30 02/19/2021 08:47 TerryLeft (Oxygen?(No)) Bang Graf RN, M.D.; Reason for Study: Shoulder InjuryMEDICATION/IV/DRIP/FLUID ORDERSOrder Description Priority Entered Acknowledged InitialedHYDROcodone-AP 08:30 02/19/2021 08:37 TerryAP (5-325mg)PO 1 Bang Graf RNtab (HIGH ALERT MGabrielle;MEDICATION)GENERAL ORDERSOrder Description Priority Entered Acknowledged Initialed[Electronically signed by Damon Little RN (11:33 02/19/2021)][Electronically signed by Bang Graf M.D. (12:48 02/19/2021)][Electronically locked by Damon Little RN (11:33 02/19/2021)] Name Value Range Interpretation Code Description Data Evelin rce(s) Supporting Document(s) ID Date Data Source [id number] 02/19/2021 07:03:00 AM EDT [facility] 1 Medication Reconciliation Report [facility] Emergency Department [address] [place] [address] Phone #: ext- [phone] 02/19/2021 07:01 Patient: JAGJIT IBARRA Sex: M : 1960 Age: 60yWeight: 126.5 kgHeight/Length: 72 in.BMI: 37.9ALLERGIES: Compazine, Flexeril, ProcardiaThe patient's Home Medications are listed below:CONTINUE TAKING THE FOLLOWING MEDICATIONS: Coumadin Oral Gabapentin Oral (600 mg) 1 tablet, 3x a day Lisinopril Oral 40 mg, daily MetFORMIN HCl Oral (1000 mg) 1 tablet, 2x a day Zoloft Oral (50 mg) 1 tablet, 2x a dayThe source(s) of the original Home Medication information:Not obtained.The following Medications were given to the patient in the Emergency Department:HYDROCODONE- APAP (5-325MG) [PO] PO 1 tab, administered: 08:37 02/19/2021The following Medications were prescribed to the patient:None. Name Value Range Interpretation Code Description Data Evelin rce(s) Supporting Document(s) ID Date Data Source [id number] 02/19/2021 07:03:00 AM EDT [facility] 1 Medication Administration Record [facility] Emergency Department [address] [place] [address] Phone #: [phone] ext- [phone] 02/19/2021 07:01 Patient: JAGJIT IBARRA Sex: M : 1960 Age: 60yWeight: 126.5 kgHeight/Length: 72 inBMI: 37.9ALLERGIES: Compazine, Flexeril, Procardia Date/Time Medication Administered Medication OrderedGiven HYDROCODONE-APAP (5-325MG) [PO] HYDROcodone-APAP08:37 02/19/2021 (ACETAMINOPHEN-HYDROCODONE) (5-325mg)PO 1 tab (HIGH Homar Little RN Dose: 1 tab PO MEDICATION) Name Value Range Interpretation Code Description Data Evelin rce(s) Supporting Document(s) ID Date Data Source [id number] 02/19/2021 07:03:00 AM EDT [facility] 1 General Instructions [facility] Emergency Department [address] [place] [address] Phone #: ext [phone] 02/19/2021 07:01 Patient: JAGJIT IBARRA Sex: M : 1960 Age: 60yTraumatic left rotator cuff sprain and strain.Sprain of the left rotator cuff.Acute traumatic tendonitis in the left shoulder.INSTRUCTIONSApply ice for 30 minutes four times a day for two days followed by moist heat 30 minutes four times a dayfor five days until better. Don't apply ice directly to skin, don't use while asleep and don't use high setting onheating pad. Elevate affected areas above chest level as needed. Rest until better. Do not work withleft hand until better.Warnings: GENERAL WARNINGS: Return or contact your physician immediately if your conditionworsens or changes unexpectedly, if not improving as expected, or if other problems arise. Specificallyreturn if pain, vomiting, bleeding, breathing difficulty or fever greater than 102 degrees F and not controlledby acetaminophen or ibuprofen.Your Current Medications: Your current home medications have been reviewed.CONTINUE TAKING THE FOLLOWING MEDICATIONS:Coumadin Oral.Gabapentin Oral : Tablet 600 mg, 1 tablet 3x a day.Lisinopril Oral : 40 mg daily.MetFORMIN HCl Oral : Tablet 1000 mg, 1 tablet 2x a day.Zoloft Oral : Tablet 50 mg, 1 tablet 2x a day.Follow-up:Return to the emergency department as needed. Follow up with an orthopedic surgeon in three dayseven if well. Call for an appointment. Reason for referral: evaluation, treatment and MRI as needed.Summary of care provided to patient via paper.Understanding of the discharge instructions verbalized by patient. Expected course of injury, dischargeinstructions, activity level, diet, follow- up appointment and risks and benefits of treatment reviewed withpatient and understanding verbalized. Agrees to plan of care.Follow-up with: [facility], , , [address] [place] [address], [phone] Follow up in three days even if well. Call for an appointment. Reason for referral: evaluation, treatmentand MRI as needed. Summary of care provided to patient via paper. 2 General Instructions [facility] Emergency Department [address] [place] [address] Phone #: ext- [phone] 02/19/2021 07:01 Patient: JAGJIT IBARRA [facility]#: [id number] Sex: M : 1960 Age: 60y ADDITIONAL INFORMATIONShoulder SprainA sprain is a stretching or tearing of the ligaments that hold a joint together. A sprain may take up to 8weeks to fully heal, depending on how severe it is. Moderate to severe shoulder sprains are treatedwith a sling or shoulder immobilizer. Minor sprains can be treated without any special support.Home careThe following guidelines will help you care for your injury at home: If a sling was given to you, leave it in place for the time advised by your healthcare provider. If you aren't sure how long to wear it, ask for advice. If the sling becomes loose, adjust it so that your forearm is parallel to the ground. Your shoulder should feel well supported. Put an ice pack on the injured area for 20 minutes every 1 to 2 hours the first day. You can make your own ice pack by putting ice cubes in a plastic bag. A bag of frozen peas or something similar works well too. Wrap the bag in a thin towel. Continue with ice packs 3 to 4 times a day for the next 2 to 3 days. Then use the pack as needed to ease pain and swelling. You may use acetaminophen or ibuprofen to control pain, unless another pain medicine was prescribed. If you have chronic liver or kidney disease, talk with your healthcare provider before using these medicines. Also talk with your provider if you've had a stomach ulcer or gastrointestinal bleeding. Shoulder joints become stiff if left in a sling for too long. You should start range of motion exercises usually about 7 to 10 days after the injury. Talk with your provider to find out what type of exercises to do and how soon to start.Follow-up careFollow up with your healthcare provider, or as advised.Any X-rays you had today don't show any broken bones, breaks, or fractures. Sometimes fracturesdon't show up on the first X-ray. Bruises and sprains can sometimes hurt as much as a fracture.These injuries can take time to heal completely. If your symptoms don't improve or they get worse,talk with your provider. You may need a repeat X-ray or other treatments.When to seek medical adviceCall your healthcare provider right away if any of these occur: Shoulder pain or swelling in your arm that gets worse 3 General Instructions [facility] Emergency Department [address] [place] [address] Phone #: ext- [phone] 02/19/2021 07:01 - Patient: JAGJIT IBARRA Sex: M : 1960 Age: 60y Fingers become cold, blue, numb, or tingly Large amount of bruising of the shoulder or upper arm Fever or chills [id number] [employer]. [address] [place] [address]. All rights reserved. This information is not intended as asubstitute for professional medical care. Always follow your healthcare professional's instructions.TendonitisA tendon is the thick fibrous cord that joins muscle to bone and allows joints to move. When a tendonbecomes inflamed, it is called tendonitis. This can occur from overuse, injury, or infection. Thisusually involves the shoulders, forearm, wrist, hands and feet. Symptoms include pain, swelling andtenderness to the touch. Moving the joint increases the pain.It take s 4 to 6 weeks or more for tendonitis to heal. It is treated by preventing motion of the tendon,occasionally with a splint or brace, and the use of anti- inflammatory medicine.Home care Some people find relief with ice packs. These can be crushed or cubed ice in a plastic bag or a bag of frozen vegetables wrapped in a thin towel. Other people get better relief with heat. This can include a hot shower, hot bath, or a moist towel warmed in a microwave. Try each and use the method that feels best, for 15 to 20 minutes several times a day. Rest the inflamed joint and protect it from movement. You may use xucw-lkw-cpyzyux ibuprofen or naproxen to treat pain and inflammation, unless another medicine was prescribed. If you can't take these medicines, acetaminophen may help with the pain, but does not treat inflammation. If you have chronic liver or kidney disease or ever had a stomach ulcer or gastrointestinal bleeding, talk with your doctor before using these medicines. As your symptoms improve, begin gradual motion at the involved joint.Follow-up careFollow up with your healthcare provider if you are not improving after 5 to 7 days of treatment.When to seek medical adviceCall your healthcare provider right away if any of these occur: Redness over the painful area 4 General Instructions [facility] Emergency Department [address] [place] [address] Phone #: ext- [phone] 02/19/2021 07:01 Patient: JAGJIT IBARRA Sex: M : 1960 Age: 60y Increasing pain or swelling at the joint Fever lasting 24 to 48 hours or chills, or as advised by your healthcare provider [id number] [employer]. [address] [place] [address]. All rights reserved. This information is not intended as asubstitute for professional medical care. Always follow your healthcare professional's instructions.Rotator Cuff TearThe rotator cuff is a group of muscles and tendons that surround the shoulder joint. These musclesand tendons hold the arm in its joint. They also help the shoulder move and rotate. The rotator cuffcan be torn from overuse or injury. Gradual wear and tear can lead to inflammation of these tendons.This can progress to gradual or sudden tears.Symptoms of a torn rotator cuff include: Shoulder pain that gets worse when you raise your arm ove rhead Weakness of the shoulder muscles with overhead activity Popping and clicking when you move your shoulder Shoulder pain that wakes you up at night when sleeping on the hurt shoulderYour healthcare provider may suspect a rotator cuff injury based on your symptoms and a physicalexam. You may also have an MRI or arthroscopy. Arthroscopy is a surgical procedure to look insidethe joint through a small tube. X-rays may be taken to determine if there is another reason for yourpain, such as an abnormality in the bone.Partial rotator cuff tears can be treated by first resting, then strengthening the rotator cuff muscles.Anti-inflammatory medicines, such as ibuprofen or naproxen, are useful. Your healthcare provider cangive you a limited number of steroid injections. Your provider may recommend surgery for completetears and partial tears that don't respond to medical treatment.Home care Try to avoid activities that make your pain worse. This includes overhead activities, doing t he same motion over and over, and heavy lifting. You may use rhmy-qzx-bcuumxf pain medicines to control pain, unless another medicine was prescribed. If you have chronic liver or kidney disease or ever had a stomach ulcer or gastrointestinal bleeding, talk with your healthcare provider before using these medicines. If you were given a sling, use it for comfort. After your pain decreases, don't keep your arm in the sling all the time. Take your arm out several times a day and move the shoulder joint, as you are able. 5 General Instructions [facility] Emergency Department [address] [place] [address] Phone #: ext- [phone] 02/19/2021 07:01 [facility]: [id number] Sex[facility] M : 1960 Age: 60y Your healthcare provider may recommend gentle pendulum exercises. Stand or sit with your arm vertical and close to your side. Relax your shoulder muscles and gently swing the arm forward and back, side to side, and in small circles for about 5 minutes. Do this once or twice a day. There should be only slight pain with this exercise. You may benefit from physical therapy or a home exercise program to strengthen your shoulder muscles. This will also increase your pain-free range of motion. Applying heat before exercises can help prepare the muscles and joint for activity. Talk to your healthcare provider about what is best for your condition.Follow-up careFollow up with your healthcare provider, or as advised.When to seek medical adviceCall your healthcare provider right away if the following occurs: Increasing shoulder pain or pain radiating down the arm to the handCall 911Call 911 or get immediate medical care if any of the following occur: Rapid swelling in the involved shoulder or arm Numbness, tingling, or loss of strength down the arm to the hand [employer]. [address] [place] [id number]. All rights reserved. This information is not intended as asubstitute for professional medical care. Always follow your healthcare professional's instructions. You have been given the following additional information: Shoulder Sprain Tendonitis Rotator Cuff Tear Rest until better. Do not work with left hand until better.(Electronically signed by Bang Graf M.D. 02/19/2021 12:48) 6 General Instructions [facility] Emergency Department [address] [place] [address] Phone #: ext- [phone] 02/19/2021 07:01 Patient: JAGJIT IBARRA Sex: M : 1960 Age: 60y Name Value Range Interpretation Code Description Data Evelin rce(s) Supporting Document(s) ID Date Data Source [id number] 02/19/2021 07:03:00 AM EDT [facility] 1 Clinical Report - Nurses [facility] Emergency Department [address] [place] [address] Phone #: ext- [phone] 02/19/2021 07:01 Patient: JAGJIT IBARRA Sex: M : 1960 Age: 60yTRIAGEArrived by private vehicle. Historian: patient. Accompanied by friend and (in car).Acuity: LEVEL 4.Chief Complaint: FALL.Alert. No acute distress.Location of injuries: left shoulder. This occurred (1 days). ( Patient states yesterday he fell in the showerand tried catching himself on the side of the tub with his left arm, straining his shoulder. States since then,the pain has not improved.).Treatment [facility] PARAPROFESSIONAL:(Gabapentin-[id number]).SEPSIS SCREEN: SIRS SCREEN NEGATIVE. SEPSIS SCREEN NEGATIVE. No suspected or confirmedsigns of infection present.BRITTNEY COMA SCORE: 15- eyes open- spontaneous (4); best verbal response- oriented (5); bestmotor response- obeys commands (6). --07:11 02/19/21 Sydni Alberto07:06 02/19/21. HR: 107. RR: 18. O2 saturation: 99%. Temp: 98.1 F. Pain level now 03/04. --07:119 Sydni Alberto07:11 02/19/21. BP: 174/96. --07:12 02/19/21 Sydni Alberto.Weight: 126.5 kg. Height/Length: 72 inches. BMI: 37.9. --07:05 02/19/21 Sydni Alberto.MedicationsCoumadin Oral. Gabapentin Oral (Tablet 600 mg) 1 tablet, 3x a day. Lisinopril Oral 40 mg, daily. MetFORMIN HCl Oral (Tablet 1000 mg) 1 tablet, 2x a day. Zoloft Oral (Tablet 50 mg) 1 tablet, 2x a day. --07:08 02/19/21 Sydni Alberto.AllergiesCompazine.Flexeril.Procardia. --07:08 02/19/21 Sydni Alberto.WI OBLEMS: 2 Clinical Report - Nurses [facility] Emergency Department [address] [place] [address] Phone #: [phone]- [phone] 02/19/2021 07:01 Patient: JAGJIT IBARRA Sex: M : 1960 Age: 60yCVA - Cerebrovascular Accident.Chest Pain.Diabetes Mellitus.Depression.Back Pain.Atrial Fibrillation.Cardiac Stent x 1: Onset 07/2018.Myocardial Infarction: Onset 2014.CAD.Myocardial Infarction: Onset 2013.Pulmonary Embolism: Onset 05/2018.Obesity.Hyperlipidemia.Diabetes Mellitus Type 2.ICD-Pacemaker: Onset 07/2018.Hypertension. --07:08 02/19/21 Sydni Alberto.ADDITIONAL SURGERIES:Cardiac stents [07/2018].Knee Surgery.Pacemaker.Spinal fusion (2003). --07:08 02/19/21 Sydni Alberto.HistorySOCIAL HX: Heavy tobacco smoker (cigarette)- 1 pack per day. Occasional alcohol use. No drug use.He was offered HIV testing but declined. Patient education was provided. He was offered hepatitis Ctesting but declined. Patient education was provided. He has not traveled outside the [place]Infectious disease exposure: No infectious disease exposure. The patient was not exposed to Coronavirus.Patient is not a known carrier of tuberculosis, hepatitis, HIV, MRSA or VRE. Patient is not a known carrierof CRE.SELF HARM ASSESSMENT: Self harm assessment was performed. The patient answered "no" to thequestion(s) "Have you recently felt down, depressed, or hopeless?" and "Do you have thoughts of harmingor killing yourself?".ABUSE ASSESSMENT: Abuse assessment. The patient had positive responses to the question(s) "Do youfeel safe in your home?" and "Are you afraid to go home?". Abuse denied. No suspicion of abuse. Noreport of abuse.NUTRITIONAL RISK ASSESSMENT: The nutritional risk assessment revealed no deficiencies.FUNCTIONAL ASSESSMENT: Functional assessment: no impairments noted.LEARNING NEEDS ASSESSMENT: The learning needs assessment revealed no barriers. 3 Clinical Report - Nurses [facility] Emergency Department [address] [place] [address] Phone #: ext- [phone] 02/19/2021 07:01 Patient: [facility]JIT [facility]BARRA [id number] Sex: M : 1960 Age: 60y FALL RISK ASSESSMENT: Fall risk assessment completed. No risk factors identified. SKIN INTEGRITY ASSESSMENT: Skin integrity risk assessment completed. No skin integrity risk identified. --07:11 02/19/21 DollyCarmelita herediaelyn. Interventions Identification band on patient. --07:11 02/19/21 DollyCarmelita hereidaelyn.PHYSICAL ASSESSMENTAmbulatory to room.GENERAL / NEURO / PSYCH: Alert. Oriented X 4. Appears in no acute distress.HEENT: Pupils equal, round and reactive to light. Head non-tender.RESPIRATORY: Respirations not labored. Chest nontender. Breath sounds within normal limits.CVS: Normal heart rate and rhythm. Pulses within normal limits. Capillary refill less than 2 seconds.GI / : Abdomen soft and nontender.EXTREMITIES: Extremities exhibit normal ROM. Neuro- vascular status intact to the extremity. Leftshoulder: tenderness. Limited ROM due to pain.SKIN: Skin intact. Skin is warm and dry. --07:12 02/19/21 Carmelita Albertoelyn.NURSING PROGRESS NOTESPatient gowned. Reassurance given. Two patient identifiers checked. Call light placed in reach. Siderails up x 2. Bed placed in lowest position. Brakes of bed on. Patient ready for evaluation. --07:119 DollyCarmelita herediaelyn 08:37 02/19/2021 HYDROCODONE-APAP (5-325MG) (Acetaminophen- HYDROcodone) PO 1 tab given. Allergies verified and confirmed 5 rights. Information reviewed with patient including reason for taking this medication and sedative warning. Verbalizes understanding. --08:37 02/19/21 Damon Little RN Patient transported to radiology by wheelchair with mask and isotope technologist. ([id number]). --08:51 02/19/21 Damon Little RN Patient returned from radiology by wheelchair with mask and isotope technologist. ([id number]). --08:55 02/19/21 Damon Little RN 09:24 02/19/21. BP: 164/117. HR: 95. RR: 16. O2 saturation: 98%. --09:25 02/19/21 Chaya Gibson ED, ER Tech1 09:56 02/19/2021 HYDROCODONE- APAP (5-325MG) PO Response: pain is worsening. Symptoms have gotten worse. The patient feels worse. ED physician notified. --09:56 02/19/21 Damon Little RN 10:09 02/19/21. BP: 181/119. HR: 102. RR: 16. O2 saturation: 98%. --10:09 02/19/21 [facility] Tech1. 4 Clinical Report - Nurses [facility] Emergency Department [address] [place] [address] Phone #: ext- [phone] 02/19/2021 07:01 Patient: JAGJIT IBARRA Sex: M : 1960 Age: 60yDISPOSITION / DISCHARGE 10:44 02/19/21. BP: 163/91. HR: 90. RR: 18. O2 saturation: 99%. Temp: 98.2 F. Pain level now 03/04. --10:44 02/19/21 [facility] Tech1 10:52 02/19/21. Departure time: 10:52 02/19/2021. Condition at departure: unchanged. No learning barriers present. Discharge instructions provided and reviewed with the patient. Reviewed medication(s) (no changes). Reviewed rest instructions (alternate heat). Reviewed referral to an orthopedic surgeon. Patient verbalized understanding. Written instructions provided in Ecuadorean. The patient was discharged by the physician. He was discharged home. He left ambulatory and via private vehicle. Patient driving. --10:57 02/19/21 Damon Little RN.Locked/Released at 02/19/2021 11:33 by Damon Little RN Name Value Range Interpretation Code Description Data Evelin rce(s) Supporting Document(s) ID Date Data Source [id number] 02/19/2021 07:03:00 AM EDT [facility] 1 Clinical Report - Physicians/Mid Levels [facility] Emergency Department [address] [place] [address] Phone #: ext- [phone] 02/19/2021 07:01 Patient: JAGJIT IBARRA Sex: M : 1960 Age: 60y Time Seen: 08:04 02/19/2021; initial patient contact. Arrived- By private vehicle. Historian- patient. Disposition decision: 10:43 02/19/2021.HISTORY OF PRESENT ILLNESS Chief Complaint: Injury to left shoulder. The injury happened 2 days ago. Fell: Occurred at home. ( in the shower on 02/17 and caught himself on side handle; pt went to [place] at football game yesterday w/o much pain, worse today). Patient is experiencing moderate pain. No injury to the head or neck.REV IEW OF SYSTEMSNo swelling, tingling, numbness, weakness or suspected foreign body. No skin laceration. All othersystems reviewed and are negative.PAST HISTORYSee nurses notes. The patient's dominant hand is the right. Tetanus immunization status is unknown. Problems: CVA - Cerebrovascular Accident. Chest Pain. Diabetes Mellitus. Depression. Back Pain. Atrial Fibrillation. Cardiac Stent x 1. Myocardial Infarction. CAD. Myocardial Infarction. Pulmonary Embolism. Obesity. Hyperlipidemia. Diabetes Mellitus Type 2. ICD-Pacemaker. Hypertension. Additional Surgeries: Cardiac stents [07/2018]. Knee Surgery. Racquel nelson. Pacemaker removal 05/2020. 2 Clinical Report - Physicians/Mid Levels [facility] Emergency Department [address] [place] [address] Phone #: ext- [phone] 02/19/2021 07:01 Patient: JAGJIT IBARRA Sex: M : 1960 Age: 60y Spinal fusion. (2003). Medications: Coumadin Oral. Gabapentin Oral (Tablet 600 mg) 1 tablet, 3x a day. Lisinopril Oral 40 mg, daily. MetFORMIN HCl Oral (Tablet 1000 mg) 1 tablet, 2x a day. Zoloft Oral (Tablet 50 mg) 1 tablet, 2x a day. Allergies: Compazine. Flexeril. Procardia.SOCIAL HISTORYHeavy tobacco smoker- 1 pack per day. Occasional alcohol use. No drug use. No recent travel.ADDITIONAL NOTESThe nursing notes have been reviewed with agreement regarding the chief complaint, HPI, ROS, PMH andpatient medications and allergies.PHYSICAL EXAMVital Signs: 02/19/2021 07:11 BP: 174/96. MAP: 122.02/19/2021 07:06 HR: 107. RR: 18. O2 saturation: 99%. Temp: 98.1 F. Have been reviewed. Oxygensaturation normal.Appearance: Alert. Oriented X3. Appears to be in pain. Patient in mild distress. Distress appears dueto pain.Head: Head atraumatic.Eyes: Pupils equal, round and reactive to light. Eyes normal inspection.Neck: Normal inspection. Neck supple. C-spine non- tender.Back: Normal inspection. No tenderness. ROM normal.Skin: Skin intact. Skin warm and dry. Normal skin color. Normal skin turgor.Extremities: Left shoulder: moderate tenderness located in the anterior aspect of the shoulder andhumeral head. Limited ROM due to pain (diminished abduction, flexion and external rotation).Neurovascular intact distally. No erythema, swelling, abrasion, ecchymosis or deformity. No joint effusion.Moderately decreased range of motion left shoulder with limited abduction, adduction, internal rotation,external rotation, flexion and extension. Shoulder held in adduction and internal rotation. Extremitiesotherwise negative.Neuro, Vascular and Tendons: Sensation intact. Motor intact. Vascular status intact. Tendon functionintact. Tendon visualized, uninjured.Neuro: Oriented X 3. No motor deficit. No sensory deficit.LABS, X-RAYS, AND EKGLt Shoulder X-ray: No fracture. Normal alignment. No bony lesion. Soft tissues normal. Views: APwith external rotation, AP with internal rotation and "Y" view. Technique: good. The X-rays were 3 Clinical Report - Physicians/Mid Levels [facility] Emergency Department [address] [place] [address] Phone #: ext- [phone] 02/19/2021 07:01 Patient: JAGJIT IBARRA Sex: M : 1960 Age: 60y interpreted by the radiologist. Interpretation time: 09:02 02/19/2021.PROGRESS AND PROCEDURESCourse of Care: 10:41 02/19/21. left shoulder x-ray is nml; pt slightly better, will need to r/o rotator cufftear, probable rotator cuff tendinitis, will refer to ortho for MRI and Tx, d/c instructions given, pt understandsand agrees. Patient counseled in person regarding the patient's stable condition, test results, diagnosis and need for follow-up. Patient agrees with plan of care. Disposition: Condition: good and stable. Discharge decision based on the following: patient's condition is stable; patient's condition is improved; patient is ambulatory; patient is active; patient drinking fluids; patient eating; patient's pain is controlled; patient's exam is improved; no abnormal test results; improving condition on multiple repeat evaluations; social support is good; transportation is available; follow- up is available; clinical impression is consistent with outpatient treatment.CLINICAL IMPRESSION Traumatic left rotator cuff sprain and strain. Sprain of the left rotator cuff. Acute traumatic tendonitis in the left shoulder.INSTRUCTIONS Apply ice for 30 minutes four times a day for two days followed by moist heat 30 minutes four times a day for five days until better. Don't apply ice directly to skin, don't use while asleep and don't use high setting on heating pad. Elevate affected areas above chest level as needed. Rest until better. Do not work with left hand until better. Warnings: GENERAL WARNINGS: Return or contact your physician immediately if your condition worsens or changes unexpectedly, if not improving as expected, or if other problems arise. Specifically return if pain, vomiting, bleeding, breathing difficulty or fever greater than 102 degrees F and not controlled by acetaminophen or ibuprofen. Your Current Medications: Your current home medications have been reviewed. CONTINUE TAKING THE FOLLOWING MEDICATIONS: Coumadin Oral. Gabapentin Oral : Tablet 600 mg, 1 tablet 3x a day. Lisinopril Oral : 40 mg daily. MetFORMIN HCl Oral : Tablet 1000 mg, 1 tablet 2x a day. Zoloft Oral : Tablet 50 mg, 1 tablet 2x a day. 4 Clinical Report - Physicians/Mid Levels [facility] Emergency Department [address] [place] [address] Phone #: ext- [phone] 02/19/2021 07:01 Patient: JAGJIT IBARRA Sex: M : 1960 Age: 60y Follow-up: Return to the emergency department as needed. Follow up with an orthopedic surgeon in three days even if well. Call for an appointment. Reason for referral: evaluation, treatment and MRI as needed. Summary of care provided to patient via paper. Understanding of the discharge instructions verbalized by patient. Expected course of injury, discharge instructions, activity level, diet, follow-up appointment and risks and benefits of treatment reviewed with patient and understanding verbalized. Agrees to plan of care. Follow-up with: [facility], , , [address] [place] [address], [id number] Follow up in three days even if well. Call for an appointment. Reason for referral: evaluation, treatment and MRI as needed. Summary of care provided to patient via paper.(Electronically signed by Bang Graf M.D. 02/19/2021 12:48) Name Value Range Interpretation Code Description Data Evelin rce(s) Supporting Document(s) ID Date Data Source [id number] 10/23/2020 03:34:00 PM EDT [facility] Name Value Range Interpretation Code Description Data Evelin rce(s) Supporting Document(s) SARS coronavirus 2 RNA [Presence] in Res piratory specimen by PARMJIT with probe detection NEGATIVE [facility] This lab was ordered by [facility] a nd reported by [facility]. ID Date Data Source [id number] 09/06/2020 02:00:00 PM EDT [facility] Name Value Range Interpretation Code Description Data Evelin rce(s) Supporting Document(s) Life Vest Laboratory test result [facility]) ID Date Data Source [id number] 08/26/2020 12:29:58 PM EDT Name Value Range Interpretation Code Description Data Evelin rce(s) Supporting Document(s) Progress Notes [facility] CWTNJu1jIeABHfMg34/POIoaJXAco6OqWWdyDJl2WIppVATbK8RmTCM5oF9kLXN5EUgQTbYyPhEoDCGe lbm [file] IbvPlaEPNZTvm5WMJWDgFsDU3IVUj= ID Date Data Source [id number] 08/26/2020 12:28:43 PM EDT [facility] Name Value Range Interpretation Code Description Data Evelin rce(s) Supporting Document(s) Progress Notes [facility] RQTOKu5aAhUMBlAg70/FXZfvUGSne7HkOBlyTBg5QCklHZWiQ5ZqOJU4jH6jJRD8XVcIBcLtUeMeJILo lbm [file] TKGqYyZqOGN4DKQ+TW0lPJn+Ch0Fv0OyskD0rfTnMCp0Xuf0ITxsBKJVPy6M ID Date Data Source [id number] 08/01/2020 09:04:00 PM EST [facility]) Name Value Range Interpretation Code Description Data Evelin rce(s) Supporting Document(s) Life Vest Laboratory test result [facility]) ID Date Data Source [id number] 07/17/2020 08:21:04 AM EST [facility] Name Value Range Interpretation Code Description Data Evelin rce(s) Supporting Document(s) Progress Notes [facility] DWSPYa2hKoRJGaBq85/DRTtsJJZvv8ZkGLvwNYr3WZsnYOMfN9UqFDX8oI8eZDP0VApWUmXgNnAuEgCi lbm [file] AgICAgICAgICAgICAgICAgICAgICAgICAgICAgICAg EAYcOJIhCRUqFGDoCUQfWLTtZJQbCSXaZSSuPGWuAYRnSCWpYNJmQTYzZEXsLROdGGAyTBAyRB0CVSCf ICAgICAgICAgICAgICAgICAgICAgICAgICAgICAgICAgICAgICAgICAgICAgICAgICAgICAgICAgICAg ICAgICAgICAgICAgICAgICAgICAgICAgICAgICAgIC MrLNCvYA3SLVQnRBHsOUUgYVGzQVWaAENvSWSjPAKtFVBuMZEsHEOzJNJyYBAsLXTkKKMdLJUjPXPvMG AdDVEvMEWaZWRcNSHeTOHxKZYuLAEaXYKsLBWdENCcSMCtDBVzWRDrSDYiHLBdEJ8KIDBgBRNvVVViEE AgICAgICAgICAgICAgICAgICAgICAgICAgICAgICAg UJInDVTyLYBaZACiTCAkVUNtCABxEKDeGRIoISDcIQXeOGQvWWWhQVEnZQUxOTGiCJApEPFtLRFmZV0Z ICAgICAgICAgICAgICAgICAgICAgICAgICAgICAgICAgICAgICAgICAgICAgICAgICAgICAgICAgICAg ICAgICAgICAgICAgICAgICAgICAgICAgICAgICAgIC PrAXCkTFXwKV5ZGDZjGLHaKWFsWRAjTAPfGRMaJHLiTFCeAHFbPOBnLUHeQRTzONHeVCUcXDJkCTFaZI TlYNRgTIYgXRGwIRDsJZKvVECqJPXpUHUyNCGzNLVpRWPgBWCtJALjLNKxJNPgBNYsSJ0BANLlHRCfRK AgICAgICAgICAgICAgICAgICAgICAgICAgICAgICAg ICAgICAgICAgICAgICAgICAgICAgICAgICAgICAgICAgICAgICAgICAgICAgICAgICAgICAgICAgICAg BM1ZHRHmUBYsSXIiJHCxCLBiHDQzVDOsLUUlRLKoSYFoNZTkCWGkVQWqSDTxYOUxNDRdEUKiLBMyLQFk ICAgICAgICAgICAgICAgICAgICAgICAgICAgICAgIC GjQXWzOYEzLGQdTH7NVZMfWFKrHBFrAZOeEIUtTIBfKRNtLGQjAUBrZHDcWMWiSVGbRPLpAWHfVADdDK DqWRDyUBZsVTLjFLUdPYHqFHIwGMMpDITcCHTcPQPiXYIwEDVzUBHzQKUlYOXnGOApLBYlWK0XBP01pV Joc7X3RLBzTC3lnln/Ac8LRAveonYkdJAkBP3QIzTu ZJ0fev3YDwCxMD7btv1VKVnZFvAzP6M6zLMwQQTwQVZOKbYnW51sKZbwSt01BAxwXVLwIrBrMFv0Aq2C ScXiA0fdRKAcThN4RUEmBwO1LMYvEnA4DIEjNpKoYDBgIZRwFZXhPKISJNZ4IXYdRvHsHqDgYKRcTPhj MDBGFZ0ULlGdZ3NfkD88SHuVOj8+DQplbmRvYmoNCj U6NNJbd6OnMCs1PG5NXLQtAqzyw0RaJKRnOLCPTLyvUZ2QFDP6HVT3AQPhMe0NUDWmT897gqAeAW1GYc 0VPzOiWG3vxo6VYEYwUAArVdhEDbz8FScqBK0BtZYpUHoBbf3aznIjtfFYr8SuwyVpbHVEn3mlJSTjVI KtcRNsBM6BDJT7UXEeYPgaJpHjEOTcZBppHxYCZOsF EgPsM8Dho6BfIiG6KYNlQsNlPDieVONzGvZ8EJ02oVonRV2INVIiKAZcNK40KTP0XKOxNh3BEf4JXxAr KH0ota4QNGHzXXCwMypOOan4RJycSH9EeJOiI2LofTPfb2kVLxXsK4YHYNMlHNWlVw8RVPWxUxEsPZOo PKsfLV4mOVNbZGLFeGxnxnO3OS8MPX5pgnJgEV5LAu WwEy4rZy2QPrUwB0UcG2XoHAOnOSPGXOtqZY1RAEjkST3hOH2Iw2BGbARqaL6plo5USMOrFZIyYwimll 4BRxwkB7U5yQjvTHSbPWEpOGISKQaxLT0YCTTgOHL1GPH9TzBjNADDQhZuW37vSO7EO2Uzv14nAlW5JX SmUhQgQVvxMX65qDrjbmTbeZLzdWpfJJ8JKf0+DQpl kfOcMoaDOcykCPDWJqGsXNwQJvDrABInTCYiSOIzYpO8EpDoGi0ZJTXuUZBpAFWdTyEuBVUbIAMfFEgj SQFrUMA2EaZ8ENBqCCEaEA2XRaKkHTBqIIxmMBVrTNGwERBkcs2WAGRrMPFsTAM9WeWvTJKhCNCoITpl YIUvPUIgRoX3DZZcRJZhEK1IYrGeBMKiWLX4QcjzDV FgCKZxee2BKUBvAWKpUQV2UXJeCXXvBUJjSWsqYQScGNA0Xut7SZQaACKaJK9TYjAuVIDuRRZ8IEYgLP SaWQAkwo7QHBGhGSEcLoFyYEJoNDTeZWByKLqqQNQjYJU3RaF6YLAnVZQoGF7NNsOlQOMaLQN4CeAvEW ZhAFLpcq7ZGIGhIHKjEKN6ZAIbYYBqFFBhWWejFURg JFZ5OPC9GCHpFUTiSD7USwSuYHVoUUo4StHiKVXmLIQxak7PHXGaCBEmGVg2DSQtFSIiILLwACsvRFKv LCSfEoI0ZKLiKHXfGH5DEhRiSLUgLXW4RTUoSTAcXXRgma8YWVBmFEOhHCI0MeOzKCSuAKJwLHviPHMh IGQ1HJt0EWOmFBPvVY0ZCjIvVFBqPHH0AIjhMRSrOF Hgmi4EFGRmMIMiZML9QKQzNJAlZNSiNQnxGAElPZO9SYH4LQAjDGHxWU8QMnDgGUGdQUE4AJtzUUFrGM Udss0TQQLyUSDrSvDeEPLhQADjFUXpLDzfXOEaOSU2SRe2VFNaJSGnAC9WXpElBRZkCiv5WwdpGEZqAP Fgoh5VSEZfHBYaNEj5MtEbGORsXWDbLTuwCBHyVYIj KSYvIERbDHQlGU8VQuXcEYIsJmZpHTKqASWpRSZbgr1VFBUxTNQnWOD4OTAaYXQrEFUhGIxzRFDzSRUq QmlfZSHfSXYtTQ9RMkGrXMBxVdM4YUFkGCPjTAWhjm3ZSDUeTXXtAYl0TLAlGEJyICFxBQmqTOSeXZYn FcPrXMPvDVCfZZ0ZFhHpRFTaVnZ8KXqyLBEzZFJrmz 6VLXWpRGMnVgQ3QZGlLFSbSILnTPiqJUOnYNW7WtrwONEoNERtCY8JCwEbCGNgBGM7YKRyRUZkQCQosx 0UNNKsUWU9DvdvLQIoZUJcIAPsNKkgEYYaPNW8BIU7OYWgROSpFF1YXsTjDLNoLXldNNOeKOCuLDIjda 3CQMQwNQD6Axs1WzBqSYMzWNBfLVmfOYAqGAU6WlA8 ZJWjBIQeDL2OVuArUXHtINzpYQrbECLvLPNufm6LBLZdIPO6CPL1ZHJiQVHiEIXtJQv4nqHrxHSoZEl9 HU7RO2NxizBhHTfKVd8Rp772ONF8BAXjRq6FH0mwBy2qVBCdPCEEAj6CIQz3E9I2LEZqMUu8INIrGmZv MjgzZDFkNmYwMjMwZTFkMTI+JYgyRRJ6PKL3UCX1WS L0HTSiYUNrXIG3YeIgMbDuPWVbEy3tUNINYk8+CKwigLIynRysVDDMEqY9Rwi7KMheNHCHMh8I ID Date Data Source [id number] 07/17/2020 08:20:49 AM EST [facility] Name Value Range Interpretation Code Description Data Evelin rce(s) Supporting Document(s) Progress Notes [facility] YBANMr5hJbIHEjFe20/RVPedRLXdg3SqRLqdRCt0FQzkLXBhO0HdPCN3yA4vMEH8QFcNImFiDxZgQjLj lbm [file] [place] [file] ICAgICAgICAgICAgICAgICAgICAgICAgICAgICAgIC AgICAgICAgICAgICAgICAgICAgICAgICAgICAgICAgICAgICAgICAgICAgICAgICAgICAgICAgICANCi AgICAgICAgICAgICAgICAgICAgICAgICAgICAgICAgICAgICAgICAgICAgICAgICAgICAgICAgICAgIC AgICAgICAgICAgICAgICAgICAgICAgICAgICAgICAg ICAgICAgICANCiAgICAgICAgICAgICAgICAgICAgICAgICAgICAgICAgICAgICAgICAgICAgICAgICAg ICAgICAgICAgICAgICAgICAgICAgICAgICAgICAgICAgICAgICAgICAgICAgICAgICANCiAgICAgICAg ICAgICAgICAgICAgICAgICAgICAgICAgICAgICAgIC AgICAgICAgICAgICAgICAgICAgICAgICAgICAgICAgICAgICAgICAgICAgICAgICAgICAgICAgICAgIC ANCiAgICAgICAgICAgICAgICAgICAgICAgICAgICAgICAgICAgICAgICAgICAgICAgICAgICAgICAgIC AgICAgICAgICAgICAgICAgICAgICAgICAgICAgICAg ICAgICAgICAgICANCiAgICAgICAgICAgICAgICAgICAgICAgICAgICAgICAgICAgICAgICAgICAgICAg ICAgICAgICAgICAgICAgICAgICAgICAgICAgICAgICAgICAgICAgICAgICAgICAgICAgICANCiAgICAg ICAgICAgICAgICAgICAgICAgICAgICAgICAgICAgIC AgICAgICAgICAgICAgICAgICAgICAgICAgICAgICAgICAgICAgICAgICAgICAgICAgICAgICAgICAgIC AgICANCiAgICAgICAgICAgICAgICAgICAgICAgICAgICAgICAgICAgICAgICAgICAgICAgICAgICAgIC AgICAgICAgICAgICAgICAgICAgICAgICAgICAgICAg ICAgICAgICAgICAgICANCiAgICAgICAgICAgICAgICAgICAgICAgICAgICAgICAgICAgICAgICAgICAg ICAgICAgICAgICAgICAgICAgICAgICAgICAgICAgICAgICAgICAgICAgICAgICAgICAgICAgICANCiAg ICAgICAgICAgICAgICAgICAgICAgICAgICAgICAgIC AgICAgICAgICAgICAgICAgICAgICAgICAgICAgICAgICAgICAgICAgICAgICAgICAgICAgICAgICAgIC AgICAgICANCjw/dQVqD9xtrGHvgqU1M1obTx4RQo4RMA1rc8YsSYIhXUjkfgLaZbwJVpKnYJGlBmiQSw r8NQrwSG7CiIOeN1JaG3OeAWglBS5QRAWkVMUfsGKj OYDsPXIhJdP7EZGbOPwbCV1OfWPqEZobDNIeTGQyVgXgSYStGLRiDDBgIEYlKTPRPC3CCtGgV3JpyM72 IDQNCj4+CZsycvRaLaaYOmWuJDXxb5CoLDr6VV7INYQiEpmht6LwFcCiNSRBKXrcPZ6TCSG9TAPiUYHy Lv4NPYEyJ442mpElZI1MQk3HTaEmTC1mpo8SFkOlAJ XwAaiZWzl5NPjjSX3MnOXbTWlMig5xbiWffgNLd5YubnAeaLVRFAAqg1MnLN5gerSslbPldTPaLCYGFB R3KQQcORyyQjCxFKXcXKwcWDVWPThSLrYuE7Zzd6MfFwO5NWUaCiZgZNxoNQArRmR2RR40yFtsIG3JKH KoMZOoPJ31FRDtNUOlQp4BNh7QOdEyAX9tdf4TBdKo OGBlFfbYThe7GKkhVF8CoPMiN9KwcZJnk0gMAnSrC5UNFCI3HROwOa8TXQStCcYxXEFjKReqXU1bGJSq FKFShAxwpxY1AJ8TWX1owyBeER9YWoVdOm3rIp2FNrDtI3RwX1UsXNEiVIVEMLscLF7UFZieVO0iQK2X j6QUnNJqqO4jhp8VINRkXQIvQnmgeh9TEqeqL6R3pT ubYUMxOgEkIEBCXPvnZM3JIYTjHPS8SJQnZMZnFVLCRzZqA39tDI1FU3Uxl09pZhF0MOEuUbZpNNwbAB 51hMngtkIacKYwkLenGY0PZf7+COssrnQhEgiCDkpuEDSJFsMqFzFIZqGqCXKcMUKvCEVtFmW7JnUoZu 3NQGYaRWEpZZXzCnIxDXTzWDLsJRzrRUEmRQC0GXIq MVMyALZhBN2UAiNyEVFjRse2NVTqLCPbDGIorx5AMCFlQVYvOPF3JfZsNPSvWMIpVLiyYRSpDXRyOib3 SJQfPUMdRL8NCgNzUABaTOY6NQHhAJIsEFRaam4DQMEgHZOfBNRhJPBvPPKlVIJkEVjhGQQnZQW6NLD3 TAIlJVCfFW7WBlGkMZIfVHq5DAJeSHGfAOShcb0WAM DsOIPqDde2XgGmSLMjNBSbWIdbLTIyJWA8OBCdPSHpGHHxFB7WKjQnGBPuEVsbBCutKVFsNYMvtg4GOS YsEBDoRVI1RFTvIPVxNGMwEIjjQXYhNJNgHLcfGVQaWDOkIW4XCbMaYAHcMYZ0OjfaZUQvZDGufe1IGW DdHCLyISTpQFKuPHWdYLZaSWjcREXoDMViWXY9GLRh VJOoAA4DVjLuPQYrMUHjOGzmRXPjYKWyot9MGCDqKTNyBHQ4JnGyWFVqVJAdRCbuUJWaCZF2CcnnKWNz EYKzKT6DKnKiPHNrPtT4XABeSDNuSCCdvf9QUORkVVCwCLDmCkKwIQXvVQLpOMkkDFVxRME0XwK3QJUj RXXfQJ4FLnJlNYPwDyEyWAJoCNYiEYXwic3NCPTpMQ FhCwGxZiJfDTZlTDKiSYrfHXHeECH7EEmzXRUmJAMoXJ7XDuPlKGNwYmr8PwMvMHCsLHJgie4KHCOwFO CbZxowTwChDPKgLRJtWAadZDYbQPY4AUewVFMrAVGdSI2XSjRkNPCrUmjnAZCcZVHyBHBicm2OBYAbIQ JpTBf6FLKbTZMiQSAdMAaqFPNlFIF1JFJxDBKfVZXq PI0SZaMpGNUbGhq3NWCdCEWtVLRxsl2JvSCpeMnjmm1QETfTLe5TxPpqWHA3OSlbZi2qlDXcBiIvCLQX Pb3YknGgYYUnPDSGEPccEBWoDBZpMlUeMIYyEMrqPxXqWbhaVUSzS9AiDpygIUF8JeugEeG3UtWrOaMi KkU6GIEwTmChKZT7GFSwR9HwAKF3TElrYCA+IF0g DQo+Eu1Gt7AaghK6llPuGNyxRQUiHK9AGTQXR1KOLk== ID Date Data Source [id number] 07/15/2020 11:51:32 AM EST Name Value Range Interpretation Code Description Data Evelin rce(s) Supporting Document(s) Nursing Note [facility] EFIREo7jCcFICyTz47/DXUqnDZFnj6MbLIecHOw6MJykBBYjR6AfAZE9jY4iMZV7TKzHExXhRjCrQgZi lbm [file] DQo= ID Date Data Source [id number] 07/15/2020 11:38:22 AM EST Name Value Range Interpretation Code Description Data Evelin rce(s) Supporting Document(s) Discharge Summary [facility] URGJNg1dElIMDrQd03/SQJsmPYVse3MkATmqEBh4XHycMYSqH6JyQEC8fV6mIOR5UXrLEvZxOwMgBjXd lbm DaWbdYWdGkXWUeKjhIJhDpYCkjIihkxPWgVS8VgHS7KWDkA42bEVTiFVTzN7FwPITcARP+Pg8SNQOijK JgGC8QWygX2Qdpc4l2VZ7iuC+Yyc2XJsCnbQXjJVdKKscBZc3kbZ/bPokNnPI7fzZzJ/zfjzIlW9+Vvc mr4fAP0bB6hxo613wtDM3ygXp//oUYTdTYmwwr6mjS gnv5M41/U6Ngjh3q7z7NNerncXL9tEJnK/YaoxQ8sIzpG/NGdMHGD9dAEuuWRoqf5wbP8yUb8khqVd1J 193y2xRqlEz9y6IQAYq8JwcUQ9h+CvkgAPtXDl8wCfiMP2LQA0/Oy4VPvDbSBrHKlEYzgWuRgmVGOIYg pQCcB7AZ4n5YW0OQo8LCTNGd1cb2UHjVfjoBgP6JZv 37gJA1tL7aQJ62IkmqmGtPp2GEQgEkJ5pwgV7j5E+FKpN4WszyJ0WGH8JmY87jsZHausjPDaED5yX7BY MeGDBo3dxpHqGKf1mfqEsQlxnvXn3aoUGfHiCOn6foB/obaGt0jZj2+KjvwSF2MIxFyZ56Ps9/ip564n vkOsgklbcaBqmttlfDdeIcL9gdualBCGqwnDe6Ah4I [file] ICAgICAgICAgICAgICAgICAgICAgICAgICAgICAgICAgICAgICAgICAgICAgICAgICAgICAgICAgICAg CMGuMIPjQZXxTWVqCQTzPTTpUJNcSELjTEAfRQFuOFEtIQ8OCCWmKAEgDECwMDQaLOCgZUHcVEFeIWPm ICAgICAgICAgICAgICAgICAgICAgICAgICAgICAgIC FnXSNmKJRqBDAbGXVwICVuYGPfMQDkLGZpKDJhNVKlYNTpUJPdQGTlYAUgTS4IMSElVVDdKTHvACVjWK AgICAgICAgICAgICAgICAgICAgICAgICAgICAgICAgICAgICAgICAgICAgICAgICAgICAgICAgICAgIC XeEZZrWQHgEJVhBGCiGLKpAWKiXWCcCKMaXS7TRRWu ICAgICAgICAgICAgICAgICAgICAgICAgICAgICAgICAgICAgICAgICAgICAgICAgICAgICAgICAgICAg TIRwNUDoCLUfKPSwQWAqEPQqIQHhXTHcGJClZCPoGSAcWPRnFV9JBIBeROIgAVFgJAJsZBYvOOOnUCGz ICAgICAgICAgICAgICAgICAgICAgICAgICAgICAgIC UoIXDmUCLyQCAkMSWvMDMrYTYgAJTrEGZeQAAcOKVkOFEfEAIgUHKfBJLrDBDiNY3ZUCZzOOTxRCYgHA AgICAgICAgICAgICAgICAgICAgICAgICAgICAgICAgICAgICAgICAgICAgICAgICAgICAgICAgICAgIC QwLCPqYMDbRZBjREJwKIDiQVBkEEPlCNPzMUFnUR2Q ICAgICAgICAgICAgICAgICAgICAgICAgICAgICAgICAgICAgICAgICAgICAgICAgICAgICAgICAgICAg IMNjCQSwCVWoDFYhGMTqDDZqOTLcUKHiXNWyDVZpMWHcOSZeASJnKU3SPIUjCXMgYKTqGZCiPWQtMVOi ICAgICAgICAgICAgICAgICAgICAgICAgICAgICAgIC QhEZBlWNZgTGExUKItHYYjSHLzRYNoUTSvNRRxRAOkNMIbROGtVUUsZWCmWXUbDJViHK2IIEZoBURrFX AgICAgICAgICAgICAgICAgICAgICAgICAgICAgICAgICAgICAgICAgICAgICAgICAgICAgICAgICAgIC AgICAgICAgICAgICAgICAgICAgICAgICAgICAgICAg NW7XYBAvJFVgCJWqUZVlGLCcBRGtRGJlDIAwQNNfOAOtDGAdKPIfHEQiQPDjKWYfUWOpUDMqKZGnYRXv SQNdLHYxHTMsAYGuWSDqDHJiMICfCQKkJXWpFHXtUXOxDLXxYIRgDQXeGS6ZVQ58pZVwi2Q0CRKaBB7l dyc/Fs5FWRhloxRuhYFqJV0MGaWwDC2psv6LOxCuGC 6ryq0IAJcMHwQhL6I0pIBeXPZaPMAEJeJnG41tIXseNq79FDqcNKWlXyXyRJi8Sq3LIdAuY6kzAQYjPk O8ANIvRbLgRChcVR1Rd8TgzXByEDv+Gr6KMN1qs3QvNZhyCVMtSE0yyb7BLRmCVbNpH0YswzS6YPZ4QE LlXm8KKQJmVFKrzUCzMxNbKQSEZcDoA1GdxF34LKEE Cj4+RBbmxiPaWvaATrE3FNLgy5NmXAl3IX9AWQLiINo8qQBdZFgwC9grqxsoPOT7zZ0lbyimDiatSmP5 YZpuld0rMIHuTyoiAEZuSIVmNr9sEV9vOHEaTLBqPkN1BSQPLR2VLVNqFSMxoJOzZDVfLUTIVP3NNKrr UMS6MayfrqBeoGTdXWdcCZ5GDXGbchYsJhNvOLTJEF o+Vi3HID5dn5YaLBbdEwGuEV7wng9ZVYwHLmUkX3M4jBFvQ5L4DWajXx3ZMQKhNZBaHwLlBKPJCPyhLH 2MPK9qvlV1TI7UsZMjCDZkHEPjlAXsXZp9V87weFIdCYkdMT2RVDB+Yadira+Ey5FXQZvIMIoCMUuVwPtYB MIQzGbN2KxB3ECv7TgI5PvPP42tYiebuHnSIahMO5B ZD0pYDAcXBRGRM8TkGTwjZ6yysIsYWBdNHCRHgBnL78jhDIgLQTqRZS2AQWkDl5IJJVuZ0FmmvNxoFxc jwCtJFObRVVTID2FSRiopdAzeBWxsTvdZQ57hZdzCQ8KOg7CCtSeFT3rnu7EwHKpOw4QSOYxNN8FJPWd WCNqBJDjHMQ3HDIwDvMrLHefZUHyQTXyBGC8TEQwAN XgED1DBiLbQHMhQfNsTHWpADGmIOXgzb0IALFwMWBhQTs7QsPhEHOmAUEiNZaiLLYjTPDlQYT7BYNzMC IePV7YTpMtMWVfSWL5ImVbLFEiRHYeit1GCTNhFAUfWYWgNjGdQLIjXWWuKYawYFAtTABlHEl2XAIvGE UmXR7BXcFwVESjHSP9EZJoWNNpSCNkis9GYHLnNNQl Jen5THAzPLGeODPwDVpvPGIhWTSoOIEnCUHrBKFjMB8OIeTsJXWbJMSgFiofMNErJBRoil6LSFNqDBNm GYVvUPQxOQBgAIDiGXbhHHJrAHW8OcD3VMTpUACvUI1SBhWvVMOlLKZ7WARyCBXhIVKxan9AOOWsLXKx TzV7GdKlGTEhELJyUVnmBYKuVGG1GZIvFAKzSJRhSZ 1VPrQfMBNkQLn7FguoVOLdSRUuun1AIZMvAEOfXCZuVtXeLFGhZAQxCLkyYRHgLDR8DhGaEAGsYRNtVF 8YOuKtXXHtXYj5RFHaXGWvRHObbt4WSUCfCEUnKYldEaYrEWHfECZqATisFKAtCLTeALR2YGZjAKDoQI 1RWgPnTPGxQjDwWHPgEUQjHJRttt9FVOWyLMDzPLOc VoFlBXXkCJChGNjdRMKyKTYkGWUxOCKpAVZfLD6TEqWyZDQeBpHwZtCsNJUmPSDgat6PHFQmDOUsAzY1 MnKdFHWkSVCjXZd7opIrbBXqWEq2TB4WK2BuogXnYidFVw6Ei618ZFQ9KMViFa6XS9zhUc4zFGJnHIOA Wg2SDXn8PhM9UVGxRpPjKdQ2XdDfLAT7PMB6RGX1RC S3XrH6VuB+EBr8IgSgFjDkGXBeVvI1PdUiJHa8VvNhALw7ViVmVeXcRN5lNKWXLz2+DQpzdGFydHhyZW IBSgEaOWU9GCtzOGERCd9G ID Date Data Source [id number] 07/15/2020 11:19:00 AM EST Name Value Range Interpretation Code Description Data Evelin rce(s) Supporting Document(s) Progress Notes [facility] CAAGCl4qLtIYPxKi54/TQVpcUMEjc7PxIMprYIv8JNmzSIQuV9JkPFA5yD3qNZX1VRqWXjPqNxRcQwGt lbm [file] ICAgICAgICAgICAgICAgICAgICAgICAgICAgICAgIC DgVCFwNANwGJZlJACrJCAdOBUhTLXtGFLsJGZdTATuHUClYCQhCFJkAZ0KVMMrMNLnOBWdQWGdDDWvJP AgICAgICAgICAgICAgICAgICAgICAgICAgICAgICAgICAgICAgICAgICAgICAgICAgICAgICAgICAgIC XkDMJdCKJmWREaAONpTRUcLDLlYCWmXX8UXTQvOXRd ICAgICAgICAgICAgICAgICAgICAgICAgICAgICAgICAgICAgICAgICAgICAgICAgICAgICAgICAgICAg JNOiEIMiACNeUQLsDNKoXKYeGBUaBWEzKABgGIJnYKHpYG0VLQSjIORkEXKoHIAkDHBkJOIxCXQxTJJr ICAgICAgICAgICAgICAgICAgICAgICAgICAgICAgIC DbBQPzNJXpAQZeKEBoKTRbAWBxMNAtNCOoVJClNHNjUFJnXLAcTRWqAHQhIF5OHIQhSBZvJWFlFEVuNH AgICAgICAgICAgICAgICAgICAgICAgICAgICAgICAgICAgICAgICAgICAgICAgICAgICAgICAgICAgIC NuXVSaXMTzJETiGSCgOIUwRACwZTRzRRAiHT4PXTQd ICAgICAgICAgICAgICAgICAgICAgICAgICAgICAgICAgICAgICAgICAgICAgICAgICAgICAgICAgICAg ZKDpIZEoVGLsEZObJAHzRVPeGYRtTUZoZHRuURUuALOhRJWhGV6KZSGgRYEpUYSwVMSzOCBkOWDaIHXt ICAgICAgICAgICAgICAgICAgICAgICAgICAgICAgIC AoVGMlOCNaTIViSEYwMJAuVVBeEMGoZECcZRZbTDAlKDKbQXZfHDRaSVWdMILyST0KNWDgCZEdOZKhHZ AgICAgICAgICAgICAgICAgICAgICAgICAgICAgICAgICAgICAgICAgICAgICAgICAgICAgICAgICAgIC YuUKMcJVOlLOPkJOTcFQYwFIGsFHZfYAAqBCUkSU8Z ICAgICAgICAgICAgICAgICAgICAgICAgICAgICAgICAgICAgICAgICAgICAgICAgICAgICAgICAgICAg YTCyERGzXFViKDYsISAxOQVyQPUiPUDmNXEiWOYeOIKfCAMwETGaPB4OPUUaWLLlPEPjHWFnLPXlPLLn ICAgICAgICAgICAgICAgICAgICAgICAgICAgICAgIC FsZLHwFRBoKZGxBVOfVJTwSPSbGXBmHAOeOOCiOZPuSGIbFFTmNODfFNTeCGRoSPXpTH6LBU10aBRsv7 K6UYIiVD9gnix/Tv9NBNmtgoDxiCQxXM3YKlKrVM1dlq8FPlUqYS1mev7XBUwAUuYlQ0O0wFEfTZSzOE NWSmUaO53sSOadBw85CNenTYIePfOzDMz2Hy2DFmKh N8ydDGRoIuE5JBBpEpP0TXRxWmO3XSRiFyLfOWIgCYVcTZ4JZOErH172gzMrPP3BUf1KFjZoKQ0bjs8R WYCmWEWzDhoALiq3OZqcPQ3SnPImwWZ6FMOeLMIPPrXeX7jzv4FuYBNpZFOXJAipVE6Rf5JxcKFtMZx+ Hf0DNI9yq9GaADr2THEfCO3prr4DRHtJAuZhV7GadR ltOJEnv5ykUVLeMA2nhPPgWCT8BK0epTftsEMHNU0lbVTzx2t6TWytRTAVOIHzqJNvDrNhNfDgOcRgGF K3ZOFdZY8lWDobFR5PHEE6LWkuDMCrRXRmY4xVKzVpWGgnRZFdeSreJZ6SCfQwB8VrzbKkrQT3JFQeLH INCj4+COidtbMaKrlYEwNfGSHaz3CkBTs1EJ7RXQUz JNzfMG2XMURhdI3kPIdcTF3RDeHwYBXjFHFBYcClR52tuBNsVTu3Q8EhAzBiPUTkMlgfMGAtBVesXdRi ZXMgWyBdDQogID4+ID4+NOyhFA0AXBpbsgWeQTQiWt3LEWTtYREiYH9bDYSuVMKtT5H0tTuiUKBBDyVu Z4naspzbPX7jIQAfQ591vDvmcrPnUWBzGEFeSu5WGM YhEZB7RPHdzJNvUxvmFUXFCZivVD8PxIZcSUU2pT5uMWbbZTZcGGYyB5lFHaQbjPzuAG72sHtgvtDkaF BdDQo+Sq9WXL2yi1OmGQh5wwSjFFktTYDbYDvsGIQsJSBgRGEiCZW0GOW8ALBWDgRlDNAuEQCnADbiZC AgVXOqct7DIKSsEENpHjT9THGwZVBgPHUwJGtzJUMn DBNrGVk3ZBZgLAZiHV4FEpYxKIVmSKFaJNmhXAPaVAUrrj7UHGOmETBuYdQ6QDHsVVLaIUEjUNplTENs DSOvMDvlQUXaJQZtZE2NTvRhMIBpOAMkGMQlAMFfEHEzdn2YPCFxJVHaJVO1JPOhASMiRPXnGQwqNQDb ESW6IxFtJXWqKEDyLD9XHbPpHGWoFCd9ZwfbZQXrAE Fvju1EIAYdUIRkJLA2HJQcBYQdQFYzHJdpNADaDCN2QSG5DZAfLQBbVL0QYeBiQUYaNPV7PBGcOIPnUW Beat7YDHUhKSRfACgvFZXdNUQoTIAsBOdsTVLwOPCzJQM9LDUsQVNzPE5LJzLgDFSnYLC7SzFnZZSsFT Jmey5KRROmKQUqFdG4RpHjRAPuALEbBHizWCIfJSRt DaB0IITjQHPdGA7MPbMbCXIaGyU7TTZqIRHiALPmet0DLRWbRPFyRXfbWZKcFIMvQXAbPRrhTRKrZAX7 RWOgTLYvDAMmOM6ABsRoSEIaKbPbOiXjXHPnTWFggk2MFCAwDTPhCRJkQiImFUKxLNFqWQhxUJCqDQY6 TZO7AYYwGNGfWC2KLpIbMSCtJmK1CABeNCQwYWCdog 8HTRNxKBRkSalrEWCkDECcEBSgOZjxGMSxZLO3XrEtXOTlLHSoGN5QXqHqIGVoKpx9CCKuBLBkOXTqtd 7GXWJpAYQaHYFtNPDcGTOhSEYfNOleJGMoTOJ2BMPtCMHmEDZrIL9VBtBxETIuBaetZUHwKTFxQWSgtd 0KMDAwMDAyOTQxOCAwMDAwMCBuDQowMDAwMDMwMzYx TAYrPRAaJG6VAvYhDIFuNkM1HGntAXWhWHUzrb1ZTRKbYWJrBEy6IWZvGMZiWWZmWNavUXLhZTWgJgm0 EUXyLFSrOG0JTmBcYXCmPwB8BgotDNGyPWGgaq7YIMHfNEFrTuW6UWDkIRDyZKGvTZnyVTYkMAPhAJM2 KYJdIEUgRO7UYhRpZSAaUnB1JHRdCIOaZPJrhn6EMX QiYYRkHZK3CrYyQAKnWTMsPXnfUADgWQF0FiZoMHRuVLYbFI0NInOgNAxvYWMUBif7QRczR5z8WTJ4Dv 0CC2Gny5FvOQCoJINNMBbrEM7licSaJSGeHg9DC3sRFyiwPOAmXMF0CZT4KHJoA2MwSeAoQkJ1Szr0CM Y9ZrWtDk1mBYM8PUCeFYFhBjKuXuI6FcIqFAH8YkOo SLytDcb6KkGmBwQuJS7HVk5VLhW1EHX5wQHtIf7QHjY2DsFIRwOeUD4GYYv= ID Date Data Source [id number] 07/15/2020 11:32:00 AM EST Name Value Range Interpretation Code Description Data Evelin rce(s) Supporting Document(s) Glucose, Fingerstick 246 mg/dl 70-110 Above high normal The above 1 analytes were performed by [facility] [id number] [place] [address], ,[place] [address] ID Date Data Source [id number] 07/15/2020 07:32:00 AM EST Name Value Range Interpretation Code Description Data Evelin rce(s) Supporting Document(s) Glucose, Fingerstick 143 mg/dl 70-110 Above high normal The above 1 analytes were performed by [facility] [id number] [place] [address], ,[place] [address] ID Date Data Source [id number] 07/15/2020 05:35:00 AM [facility] Name Value Range Interpretation Code Description Data Evelin rce(s) Supporting Document(s) AST 24 IU/L 15-37 Normal (applies to non-numeric resul ts) Sulfasalazine and sulfapyridine have the potential to falsely depressAspartate Aminotransferase results. Baseline values before medication administration are recommended. ALT 18 IU/L 16-61 Normal (applies to non-numeric resul ts) Sulfasalazine and sulfapyridine have the potential to falsely depressAlanine Aminotransferase results. Baseline values before medication administration are recommended. Alkaline Phosphatase 75 mIU/ml 50-136 Normal (applies to non-num veronique results) Total Bilirubin 0.90 mg/dl 0.20-1.00 Normal (applies to non-numeric results) Blood Urea Nitrogen 13 mg/dl 7-18 Normal (applies to non-nume kamilah results) Creatinine 0.91 mg/dl 0.67-1.17 Normal (applies to non-numeric resul ts) N-Acetylcysteine (NAC) and Metamizole bradley ve the potential to falselydepress Creatinine results. Baseline values before medication adminstration are recommended. Patients undergoing treatment with phenindione will have falselydepressed results. Patients on phenindione therapy should be tested with an alternativeCREA method.Toxic levels of acetaminophen may lead to falsely depressed results forpatient samples. Glomerular Filtration Rate 85.00 mL/min/1.73m2 GFR Reference Ranges:Normal Function or Mild Renal Disease,if clinically at risk:>or= 60Moderately decreased:30 - 59Severely decreased:15 - 29Renal Failure:<15 Please note that the MDRD equation requires an additional adjustment forAfrican-Americans (multiply the GFR result by 1.210).Glomarular Filtration Rate (GFR) is estimated based on the MDRDequation, which assumes a steady state for creatinine (Klarissa Int Med 139/2 137-149, 2003), as recommended by the NationalKidney Disease Education Program in conjunction with the National Institutes of Health and the National KidneyFoundation. The [place] method used in calculating this result is traceable to IDMS standards. Glucose 133 mg/dl 70-110 Above high normal [facility] Sulfasalazine has the potential to false ly depress Glucose results. Sulfapyridine has the potential to falsely elevate Glucose results. Baseline values before medication administration are recommended. Calcium 9.3 mg/dl 8.5-10.1 Normal (applies to non-numeric resul ts) Total Protein 7.5 g/dl 6.4-8.2 Normal (applies to non-numeric re sults) Albumin 3.7 g/dl 3.4-5.0 Normal (applies to non-numeric resul ts) Sodium 139 mEq/L 136-145 Normal (applies to non-numeric resul ts) Potassium 3.8 mEq/L 3.5-5.1 Normal (applies to non-numeric resul ts) Chloride 105.0 mEq/L 98.0-107.0 Normal (applies to non-numeric resu lts) Carbon Dioxide 30.1 mMol/L 21.0-32.0 Normal (applies to non-numeric results) Anion Gap 7.7 7.0-15.0 Normal (applies to non-numeric resul ts) The above 16 analytes were performed by [facility] [id number] [place] [id number] [address] ID Date Data Source [id number] 07/15/2020 05:05:00 AM EST Name Value Range Interpretation Code Description Data Evelin rce(s) Supporting Document(s) WBC 4.87 x1000/ul 4.80-10.00 Normal (applies to non-numeric re sults) RBC 4.09 x1Mil/ul 4.70-6.[address] [facility] Hemoglobin 11.9 g/dl 14.0-18.0 Below low normal [facility] Hematocrit 37.4 % 42.0-52.0 Below low normal [facility] MCV 91.4 fL 80.0-94.0 Normal (applies to non-numeric resul ts) MCH 29.1 pg 27.0-31.0 Normal (applies to non-numeric resul ts) MCHC 31.8 g/dl 32.2-37.0 Below low normal RDW 14.4 % 11.5-14.5 Normal (applies to non-numeric resul ts) Platelet Count 167 x1000/ul 130-400 Normal (applies to non-numeric results) MPV 9.5 fL 9.4-12.4 Normal (applies to non-numeric resul ts) Neutrophils 55.9 % 40.0-74.0 Normal (applies to non-numeric resu lts) Lymphocytes 30.0 % 19.0-48.0 Normal (applies to non-numeric resu lts) Monocytes 9.4 % 3.4-9.0 Above high normal [facility] Eosinophils 3.5 % 0.0-7.0 Normal (applies to non-numeric resu lts) Basophils 0.6 % 0.0-2.0 Normal (applies to non-numeric resul ts) Immature Granulocytes 0.6 % 0.0-0.5 Above high normal Nucleated RBCs 0.00 % 0.00-0.20 Normal (applies to non-numeric r esults) Abs. Neutrophils 2.72 x1000/ul 1.92-8.31 Normal (applies to non-numeric results) Abs. Lymphocyte 1.46 x1000/ul 1.20-3.70 Normal (applies to non-n umeric results) Abs. Monocytes 0.46 x1000/ul 0.14-0.97 Normal (applies to non-nu meric results) Abs. Eosinophils 0.17 x1000/ul 0.00-0.76 Normal (applie s to non-numeric results) Abs. Basophils 0.03 x1000/ul 0.00-0.22 Normal (applies to non-n umeric results) Abs. Immature Gran. 0.03 x1000/ul 0.00-0.02 Above high normal Abs. Nucleated RBCs 0.00 x1000/ul 0.00-0.02 Normal (appl ies to non-numeric results) The above 24 analytes were performed by [facility] [id number] [place] [id number] [address] ID Date Data Source [id number] 07/14/2020 08:42:00 PM EST Name Value Range Interpretation Code Description Data Evelin rce(s) Supporting Document(s) Glucose, Fingerstick 152 mg/dl 70-110 Above high normal The above 1 analytes were performed by [facility] [id number] [place] [address],[facility]#: [id number],[place] [address] ID Date Data Source [id number] 07/14/2020 05:03:41 PM EST Name Value Range Interpretation Code Description Data Evelin rce(s) Supporting Document(s) Progress Notes [facility] PDBNXa4pRnMHEwBx92/EYMehQXEqn6HuGWliFHy2NSwmHKGhZ1MrYOR2oJ3eRWL7DUeTSmAyRhUgSzA2 m [file] [employer]+ZJp4wyf81fLvNS/y+CXdacybvxRuKcwU1M3ph+7J89vA+zO3nlHfd6cmu+c33a/duRyVx1YI/PYc1 [file] 0gDQo+Bo1Ok7VwowZ2seRwSPruUCA2IV9VEIMFY2WSJf== ID Date Data Source [id number] 07/14/2020 04:49:00 PM EST Name Value Range Interpretation Code Description Data Evelin rce(s) Supporting Document(s) Glucose, Fingerstick 158 mg/dl 70-110 Above high normal The above 1 analytes were performed by [facility] [id number] [facility]#: [id number],[place] [address] ID Date Data Source [id number] 07/14/2020 04:38:47 PM EST Name Value Range Interpretation Code Description Data Evelin rce(s) Supporting Document(s) Nursing Note [facility] CINZLw6mZtPRDfId65/RVZizUIOou2JmDJcnHSq2EPfxFSFjY1WlCJZ7qZ4gLUB6CItVOyDkWcYzZnR3 lbm [file] ID Date Data Source [id number] 07/14/2020 03:48:10 PM EST Name Value Range Interpretation Code Description Data Evelin rce(s) Supporting Document(s) Progress Notes [facility] FRKWMr2aWoEFTjYx53/BZAshKHVah4VdMYspHGg2OXakXHNmP0XqZSK9dX3vHJD2SDmUTfWuZkUeVhZ0 lbm [file] AgICAgICAgICAgICAgICAgICAgICAgICAgICAgICAg EHVcOHNfLRCiYA8CLMPlHCZiRNMpOESyGXOaKEAjUXNkLFQfFNXlWNHpSDHnYRIwSPWyIUNuDRJyMARj DFNpZKNmSGNbXTWvSXVlRPPqVQYnXKZaIDZlVPNsRYHjJUOpQZMcXVTdFROmXRLgNMGpMC5NOFApXVVc ICAgICAgICAgICAgICAgICAgICAgICAgICAgICAgIC AgICAgICAgICAgICAgICAgICAgICAgICAgICAgICAgICAgICAgICAgICAgICAgICAgICAgICAgICAgIC AqIL4MLRMoNXXlZRXwBZBwJIHiTXUeOEEjSDXsGEYzPGQeLLThVKMpIONpDNTgIBYfQKUfGADxCVIdRE AgICAgICAgICAgICAgICAgICAgICAgICAgICAgICAg VBNtWICiACNhWUBbMQ2FFUAgZQUtLGPoRYCtSRCkBMTdNJGpMWPpZIUlFQVhNSMbVXKhYLGrLRGjPRIr PKQvBBAyGUZaTCWlXXMbXPJoOKAiQVYtJQOmIPRqFHBeSBNsXFElORMeXPClHRAjWJFaWWQiDE9FEZSp ICAgICAgICAgICAgICAgICAgICAgICAgICAgICAgIC AgICAgICAgICAgICAgICAgICAgICAgICAgICAgICAgICAgICAgICAgICAgICAgICAgICAgICAgICAgIC NwFTYlJJ3DFFMpJRQoWYVdGOTmNIGiAGPzOQFuLPDqQXKtRMZwJMHlZNJkALPbLJXfHRTvVRZyAIPzMM AgICAgICAgICAgICAgICAgICAgICAgICAgICAgICAg NHPkDGPwPTEjGNRzQJJlPN7CUPSqQJKeSTAiAMKySCWxBGYnDQLgLHXaKSBdAZOtGWZuLYGbGIOyQKXb QSCrFXJtXPDbBWPjZQPbWAPeODKaXAPuTXGgDJGfYDGpTCEtSMCbVCCuBVTaOCXyGLYzWLUbVSZeWD8D ICAgICAgICAgICAgICAgICAgICAgICAgICAgICAgIC AgICAgICAgICAgICAgICAgICAgICAgICAgICAgICAgICAgICAgICAgICAgICAgICAgICAgICAgICAgIC EzUXMcDEKbPU0LXXBpTAYsIKEyKIRtHCYuHGNnVPJzEMEhAQDfXKZbRESwXXFmPKJpQRAgHYXmURSjYM AgICAgICAgICAgICAgICAgICAgICAgICAgICAgICAg FZBxQHOcOMXtYPUqMEXkYORcPL4GTY60tFMge1B5BNKaID9fvmb/De7HZXuangKqgMYdMB2YHzJdLS9x dv3WKtTcTT8aej6GKXrWLeArI8W3hJGhRVJmFUDLItFcU55rSOdlYp81RQlgWZObUkXdJJk2Ac6QWiKv H3hkHOLjOxR5CSHcKaR3LDTmMnC0FWSrMhAbSQOpPA EnRAGaXLXYNPJ2JVGtZbLfWkEtUFBpPC7SJKWaF870gbXqBl9PIs5BZxMuRY7kbc6TTNHhMVYyWexGPr y9ZBxyBJ3UhWCawPE6EdIhLSPLVaJuG0piz6JbFWAgTQVOYChiRA0Uv1BouPAnKKc+Tt9TWK6ye7BeVS g7ZnWbSC7nxm3WGJuOMjOcP3ZrsKalWCStz8iqIBPh AX5whTHkIHT7HPzliFGyIGznR2S7XHjnR1XfKRMcEh1nJQ7qDSXcYSVePaZ8YDBEJM2RNNTeKHXziNPj TAExKQFGSW6GBRurAYY4LsnzteDybBMeWCmiKQ4VRJBkmxEmMZLtNZWHWKa+Rc3UNB4do4UtXPq3THMv BW9pqm3GUXiHMsAxW7W3dGSfN1I9MOklNy2ICQMlTK TcVYBnFSJBWFooSB9AQA6unnT8IV4UkDCtKUOvXRDmlYRuIUb1Y80zdCHxAWqkLH3ULGI+Yadira+Pg0KIC RvEJFgEOFfDhJnTAWRJvMkI2XyG3OCh8PhE2QoYY03dVcgisXgLMxsQF6MPW7bURPoSIOMPF0EzUIhsY 0bhvR5IxQvQHDEJfUqR98apRJkFPJuYXMkYLClKq2I TGCdT7YclmUgtBesfqTjDHViNZKRKY9UKJphsmCteNJreUirPI31dCwcLO9XBa7JPkSbMS6uvi9AdRTj Nx8TKGI3DO1MLLUmFOBuMDZoZVM7QJQkXxYpBKdvSVOvFWOjYBE9HIZuKDQnQC8ZJjLvKQVhXPJ8DnKp OYPcLPFirs1FSUEkVHJ4ZkLmBMNhJXXdRFMsDJzaAP SqGEOnMFG2TCYuVURtHR2BEzFgQVFsRMIeLOnsWHEfQZRpuv1JIBKjBYJwPaHnKoUrWPFjOIMcLKjsSL WsQUP1DGSlNPAuOSOxJS8LLzXoJBPfBBY3FGCfSLGmGTWekp1QQAZzYRDlICE5MnQyWETgYBSeZTvjMG RaAZM6WgZaMXCzHKWjNI5ABpOsDONdQGK3JiiySWNy ADZmcz9FTPZuKKAnXbR1SHPpYTPnPNXvAYuiCTIhMFZ9NGEfKXVsGTWrFT2NBpSaCNHlODgfMwevBKVg KAVivl1VWNOpERCuWXE9NAXpUNUyOSBzQTwaMBCzLYTiUIvvZVAeJMIjPB9QMkQyPGFrVLN0AlQwZSQe BCGjbo9CCZLjWDOmAzwhDJCpGSAzAYKjGLvsVYNiZF YrSwm0LIVxTJVjUK5BCrIkRLDjPHW9QXkvCSIoTZUtly8KCCYeMYEbZJB2JvJcOMGnQAEuDZvpECAoRV T8YUH6UTNqOBElPW6LBaWcVIPyOGAqYMPrEYJfGJSvoq7JSRReAPEyUJIsEqJdJOEaNLSgTAeiJEOkIX H0Rok3ANSwQSHpMY4MYnFbYHVcAtreDEFcWCYfBESo lu5VHMJgRGBnZSApQTRjIUEuVSHzBCfzGCQsUOO9LSScHMIaJRXqHI9UPmZiHAMuLpk4JHgvATDoKLUf ez8USIFpNWSzESEbOAVfLNWkKVYoIGysYXLcXVN0JAXoDTVjRNOeQQ5OYqFqUEYqYgz5LDzzDWWgXSKr vl4DHQEvYYVgHRf1WNIeMWTjLKBlMAroIJBiWOFuVQ D6JDWiZRWpGI8XDtCuVGXqIpFpHHvrVRLqLWAxjt3HORVmOWM2IDBqGXImAQSyLJIrJZkbEOHuXFE0CM D6DFQsNRPdTX0CIwMlOJUfOJUeVMGhNEBdZGDftr7IHRIcFFW9XQM2KXPnMCJzCFQaIAwhGGQpLWH5BV HqZDHlNEChQM8SDaItBGPsSEM9QBWnSXAcODJjwe4J CIYqGCS6AbE8LLShHGNiEHPuTHraQHUgJEQ3ARRhTVMjQEZwIH8LFxVyHKRwCPg3OIjfTIAyCVWeye5F cMDxpDofmy5TNAqTJr1YlDuhBHJ1JCvzJs3ubZJ6JXHbBSWRBy7YkgBxPIStFZFXPCmnHUOnSYLuJoIs NXG6DBG6ZQH9HIGvZYX4YhJpBUJ1CtOjDgA3NzI3HW RjPhCmDOWwYumkWtO1UFS5NmYlHKN6CKuqSUXyBBN+GW4eHHl+Yw3Oa3ItwbJ2ryQeXQi5DbotUU3IBT LTE9YEZp== ID Date Data Source [id number] 07/14/2020 03:42:37 PM EST Name Value Range Interpretation Code Description Data Evelin rce(s) Supporting Document(s) Care Plan ZBVVYc3yWfTYVdWv29/HUCzxZDDzm0KvHUrqSLs4BEjnDAAmD8GaLMT3jE9nQIH0ZJlRZlAsFsTdTqY3 lbm [file] NmJmZjg+SR4yYQm+Um4Qn0JpxmU7btZdXJrcHaM3RS6BTYLSK1ZBTn== ID Date Data Source [id number] 07/14/2020 03:10:31 PM EST Name Value Range Interpretation Code Description Data Evelin rce(s) Supporting Document(s) Discharge Summary [facility] NXTFOm2sHtTLTnFl28/KMScmNNZrg7MnQAwyDUh8QRqtUFBmB9XtAFR2qE8vZQV1SOzRRtUlFmWpCzV4 lbm [file] Qn1JKhm7MNuJFrBzRS9BCKs= ID Date Data Source [id number] 07/14/2020 03:04:58 PM EST [facility] Name Value Range Interpretation Code Description Data Evelin rce(s) Supporting Document(s) Progress Notes [facility] UVHUUr6aNuXHDkCa88/OEKinYVFum8ZnKPxmSSk3MLzxGTApD7FfOEG5uF6zGAV8VYdDNzXkNiWxBgP6 lbm [file] DQo= ID Date Data Source [id number] 07/14/2020 02:26:59 PM EST Name Value Range Interpretation Code Description Data Evelin rce(s) Supporting Document(s) Progress Notes [facility] AEEWQi2bMaIDKlTv22/BPKgkAMOjg7NaVQwbAJj1MIanPXIjT0JxEOX2rP1iMXZ6LKmJItOxFyIuNqK8 lbm [file] [place] HHCmb2SyVho5QwRns2nWzdvkW3OhmElzAc2j7FrOOZfqzsozLxrK/DenfCTI5Wl3L/j+vI+n8Ydm [file] RjIgMjYgMCBSDQogICAgICAvRjMgMjkgMCBSDQogICAgICAvRjQgMzIgMCBSDQogICAgICAvRjUgMzUg OWWPWZssGLFoATQwUbQaYsxzDXSBNj5BJiOmCFZvAY 2kotYrwYL1DHT+Sc9ZRPYvDE5PxBUBG5YopGYpYZqdP5NIOY8BTKU5YA2YcDPkAH5RoIEWE9VlhLJoKk 5bFQKqc9BmKs0iJ4PQDBVICYYjHRmiODcdBJVqBZh1L4I7DDDcK3RVC320kHEobTf6Yf2jJ2NEOXeVPs EoLVtvFWlnTVTjHAs7X6U3PHDoT4SUK0MgAoYpyqWk Y2U+ZqGeTVRVLW4JDJYGNSn0O9L9uVPnJ1B2nSwOaHU8ZP0BBU9BjYDnyFQke57+SfOBDsOnVITnR7YH YELJLhOpFYjfVIqzXNVxFOf8Q8N4RTQdE4ZBH6njC5a3YB8+UuLFVpOqRUXyEi8KHyEwKn0BVqVxVY0f kk0HWEZeNWIeYvjGYwi9D2hligu6vFBpVsY4G8Q0Nh U3bVIfQK9YI9I1wDPxEGS7ZIDozCB+Aj4Iz4VoPBPzYYq7T6yaNLHyLUYwRzUtyB80X++6ldnxqOB2U6 d3JJIYbGVhsFuTveBdI9bITSE1p8F7YMb/Dn7TTTP7qOb6tCDsXBBzMFu2xS1azGh4PiBeOH19VXQsSK zubK9fBcz2M6Org3OpLs3gLa6opKZyYt0KVeOvSXB6 skUaRkVLAkP5hEdzvhmrZUN6W1y4aCY7Ej49x6ybrsQbx2OuMaG7WMghUZUgNlAkurAdNSI4uyVqwJ7i lbOzUm5ZFNSeOMrrpxCpJjZYKi8YSbZkZS40BfvbyH1hbNN+DQogICAgICAgICAgICAgICAgICAgICAg ICAgICAgICAgICAgICAgICAgICAgICAgICAgICAgIC AgICAgICAgICAgICAgICAgICAgICAgICAgICAgICAgICAgICAgICAgICAgICAgDQogICAgICAgICAgIC AgICAgICAgICAgICAgICAgICAgICAgICAgICAgICAgICAgICAgICAgICAgICAgICAgICAgICAgICAgIC AgICAgICAgICAgICAgICAgICAgICAgICAgICAgDQog ICAgICAgICAgICAgICAgICAgICAgICAgICAgICAgICAgICAgICAgICAgICAgICAgICAgICAgICAgICAg ICAgICAgICAgICAgICAgICAgICAgICAgICAgICAgICAgICAgICAgDQogICAgICAgICAgICAgICAgICAg ICAgICAgICAgICAgICAgICAgICAgICAgICAgICAgIC AgICAgICAgICAgICAgICAgICAgICAgICAgICAgICAgICAgICAgICAgICAgICAgICAgDQogICAgICAgIC AgICAgICAgICAgICAgICAgICAgICAgICAgICAgICAgICAgICAgICAgICAgICAgICAgICAgICAgICAgIC AgICAgICAgICAgICAgICAgICAgICAgICAgICAgICAg DQogICAgICAgICAgICAgICAgICAgICAgICAgICAgICAgICAgICAgICAgICAgICAgICAgICAgICAgICAg ICAgICAgICAgICAgICAgICAgICAgICAgICAgICAgICAgICAgICAgICAgDQogICAgICAgICAgICAgICAg ICAgICAgICAgICAgICAgICAgICAgICAgICAgICAgIC AgICAgICAgICAgICAgICAgICAgICAgICAgICAgICAgICAgICAgICAgICAgICAgICAgICAgDQogICAgIC AgICAgICAgICAgICAgICAgICAgICAgICAgICAgICAgICAgICAgICAgICAgICAgICAgICAgICAgICAgIC AgICAgICAgICAgICAgICAgICAgICAgICAgICAgICAg ICAgDQogICAgICAgICAgICAgICAgICAgICAgICAgICAgICAgICAgICAgICAgICAgICAgICAgICAgICAg ICAgICAgICAgICAgICAgICAgICAgICAgICAgICAgICAgICAgICAgICAgICAgDQogICAgICAgICAgICAg ICAgICAgICAgICAgICAgICAgICAgICAgICAgICAgIC PhHLLnXBKdHPBfGGDrKDXdETDkETCbANSxSMMbDCVtNQFkWXWvJHXvPKKqVECdDXLwURHfBNWhQRb3S5 sbLBMsKLUjZN5fGJd4Rx7+WRvVXrGcZLP3nyStgR9YFZ6mu9BmAMlvGAEzx5PfBFk5XU7UCKSeBPpiXY 5USAbmcs1BXYJpJCUtlDYWy6ajAhFiYPT3FEUrXbge KU2ILRWyG7hfleIwKLNkAYKSRKosOCGIUIzoVUTKVCOgMJQiCxZaEeZiQYSoBHOpTVPDKIT8WJIjOsMh LVnbBS4Qd0UbhYC0QSp+Gy9OON3nc0PwSWc2LWDiPA4mhj0ZIZwDXkMzW3MleyN8BQOmUTGsDk1XZDJy IMJuuCR5AqNeXJZVYbHjN4BxqP20YPUWDb4+DQplbm JaMtzUPkIpSZSya9UeGTe2YR7TILYgWJv0wRCuRJUhV8Don1KkHo06ZRBqFneaP7J9bcD8KQHucJKdFE JPAHRhiLIzShO7GcVwRsPyFGN6EVUyRE1eHHzoBV8JFAI0TQfaFWUhCMSnY3aHFgBcSPtcOTTzyMvaGO 3GQjLkX7BzzeZrtOO5YOWjBYTQCj5+DQplbmRvYmoN EtQpLOWjy2WwNHv2UZ2JZKUqFOgcCE8BVXPdaA6fRNhjDP9YXnDkZHGsVQAFMxUmS37bnHVuLHt6W8Tc YmVkZGVkRmlsZXMgPDwvTmFtZXMgWyBdDQogID4+ID4+TKiiZN0QZTihxjAeERBjZq3CUVAaOBJkMT7s FLPdICIfS0H6wUhoWJEEIsDwH2gyzdmcAW0wKTRjC9 55vQpsneXxOVCgDFBaXu5FFYMqLWF2AOAnrWFsCVCqOWVQBIisML7TvFLjRLL6xU2bZCruUFFwFWIvW8 gDPbInwOuqWH21nSfhusWrcZUfSBy+Lx8PDZ9zl6DwYNt9beTqRZbdLMK0BOutZLJsXOTsDFOpPSN9YG N6CQERFrQlIYCmMJOyXFkhKSVqIXQuxo5YJMWrURZq FvOlTKCgGFDoYQAvAIyqGCWiQOB1YUV8ZNQmCCOoGQ0CCaEsAGQiNATbMGwcIFHcPMAnqk7TARMeCJDe UzX0XUBsORUwUETkHErtFQFiCUXsFfr5FQAqBZKfSK4WEjIrCVEeZSPtJassXGRsQACkaq7VPVXoBIOa EqZ2AyZhIFSkPKWgAYfzQDXdVPG4BCO4QMGjVTAqRF 0EJyBxLRLmJUbtFhLiDLZeHAGtai3LCTQqXXIeRPazKnFmKKUwNSFpWFlwMQCnCHEdPVIoPFFiDUMcKM 5NZzGoRGLlOYE7MJCyHFBnSECuye4JHQTnWMNcAkV7NHOtAQIsORHyADrmVYWsDBD2SatgTWIjSNQaPS 4UFaJfCZBvFKB0EaioRIVbLDOunu4LRVHsODKcKnVf YtXuAICiWKHhMAavQXWmNNX5RpFlRTShPGLbKB0PUoVjVIVcEFi6NHMoXUGeQKTtck8IEYRlXKQfTCei YgXgCKHhBWFcSDyiNFWaBGY8VYdbMMKnMGNbNS4PRuDoPDUqLvOcYTLsVAXbLYWvsn7KCPCiUHOkOIR8 VKMjKZUhUWVmLJqoTJKtGSKcPQWcNSLxORFjAI7NKi PuMOAzWgJiIFpnGPYuNHOooy8ISJIkUKNsGKB8MYCvYXXsLFSbFTqzRMMxIBHwDkp0XYNxNMWdBY7VXg ExYHTgEvF3QvBaCEEcUSMfqi2YTQViBKPhWls2KFMpRPRvPHGcWYmqOJFcIISmCYWyVPIbMBVdHE0WKu LcIDZvDhVgYPWdXQYfPVRcjp7TKVVjLDFrSAM6MjDe FVQmGZAnXQmiJEGaTIR7ISf0IMIbCPWeGI8VGhXjTKXsZsV6AESoYRUmAVMveb4XPEMxGMNxGBQ4UaFg IYHgHJYbAFynDFAdOKI1HHRhEIKdTLQvAC6MZiGcCVLgFiB8WDMyACFbDPVgbz0UFNFlDRPuFwDmXVWz GKChVLVpSDtaOJHoPAQ1GbOrBLRqBPQfSY8PYfXgRK DeRsb0LUOvSTEdBHJggo5UGSBqTVMoXOT4HAXsKSMtIDFqLUkfYHOiBDN5DvP6AQPrIQPtXS9TJfFsRM ThLtprPHQvPPCeMGVpgb3YeECvqVanlt2KAAmERb7OmKwaUYG7GSyrPd6nkGJ3FeDdXRLLWj3ZmrEgNU EkTISRTNisKKWmCMSbHwL3YxCxMLAnKLZpFHScTihz BLj4LBGsYjRtYYI0UeS1HkQcFpAtDgJ0KjPaNzW3OFJ4I5XyLfY3X4Z1OjHvSbG+SA0iKOb+Db9Ae2Lg quE6bbKnPUjjFBGlEz2GAVMBJ3CADc== ID Date Data Source [id number] 07/14/2020 12:25:13 PM EST Name Value Range Interpretation Code Description Data Evelin rce(s) Supporting Document(s) Progress Notes [facility] BNSFQw6iGdBNBvMb13/HHMuwGNOls0XaFNraRUo8VZupUYBsJ3WxYBP8uD3fFKV1XJaHDmOlJgDjJnK7 lbm JcCstSRcNyYSYzIvfCPoUfIErxFqqmdMBeBU3FcRE7CMXrB21qPKGhSSFaM1PmPMTwOIZ+Qz4KPRWowO DySR5BAtpW6TqJnrt5SR8J7F/hRLrkrPE6pSZMLYxVolgFX9abyl2wu90gWjbQUyX252icszL1B5Cpjp ZCW/sgDUjON+4WrrQY2/ddtKJASinK/8XXKNHidih+ /tjjx9m8vD42zKqGC5mXFlOXyb+tso0zmOuWIguE+F7EoS/qG0wRPaRF4s0tdUqPo+BgHk9k9sF/HcvN NS8bVi6GgfLyWo9q1QVFXGVGQb31cEAl7+3FO5H+FJVgOueVibumt0lOH1NNy8CrM8q4W4PcxYTkTHxf GQMq0shs+f1KzAfvh7sgFCR3f4wjFGkQ091woVTZhs JYCv7ZALiNueqC9Tt8PGxU1RGE2xUTeT/PsktUm7pWwkjx0pe0row2M3jJReLsV8AwuCYumeIkFy8ofQ X1cUyUZCRu9CS1HW1lCrsknEemJjXDhRXBQS0PeUHtO6HmJyMIJUGNOolOfFhW/oP8fHEAHabBu1bF/3 o26Q+82qQ1VudVZ0hwn7mmdrCXGDaR0JVafUXVg/nS dUubhBNaZxhvI1Yx2p5sgM48JZUU8ISdI79D2zo/+keNN10b/OFvEwwoPl68atAJH4ctglLLKk6zpw/m 5vBIlz4F77OH+KSiVAzkqkWW5YY+Gwm17Yyv1anHF71dnLO1IOJSeEB8Hv1bwzJr3a8YIw9htxF/mGpY gMu+5KkoTn9yodakOSm1tZjiODlXeofYofX++f0o6+ 3t6FBWLQMy8lAyrq0gZtxoe/moTkaYPiY1sKhWaWyjvmcNcT3uZXdJnJ8aOxg1VfFNrYWSozdAkGIg4D BRpWlE1ql9tUjtUm8RwUdrESQte6Yf1+wwNod1R6GyrSIx3jb0yE70ne9sTwI/YRfh39oBlrfc6M2BJz kHTpNfO7LkXD0K5Qfu9TQ4CcF5voAjFDQo9SVRwgYG mTpY7Q+Hht7RYqoSnsXDViNYDNKjLqK1cQKYdYhZOkfDIhVlOG3Qw8AlVexSePpATBFSJOdYGjpU+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 [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] AgICAgICAgICAgICAgICAgICAgICAgICAgICAgICAgICAgICAgICAgICAgICAgICAgICAgICAgICAgIC AgICAgICAgICAgICAgICAgICAgICAgDQogICAgICAg ICAgICAgICAgICAgICAgICAgICAgICAgICAgICAgICAgICAgICAgICAgICAgICAgICAgICAgICAgICAg ICAgICAgICAgICAgICAgICAgICAgICAgICAgICAgICAgDQogICAgICAgICAgICAgICAgICAgICAgICAg ICAgICAgICAgICAgICAgICAgICAgICAgICAgICAgIC AgICAgICAgICAgICAgICAgICAgICAgICAgICAgICAgICAgICAgICAgICAgDQogICAgICAgICAgICAgIC AgICAgICAgICAgICAgICAgICAgICAgICAgICAgICAgICAgICAgICAgICAgICAgICAgICAgICAgICAgIC AgICAgICAgICAgICAgICAgICAgICAgICAgDQogICAg ICAgICAgICAgICAgICAgICAgICAgICAgICAgICAgICAgICAgICAgICAgICAgICAgICAgICAgICAgICAg ICAgICAgICAgICAgICAgICAgICAgICAgICAgICAgICAgICAgDQogICAgICAgICAgICAgICAgICAgICAg ICAgICAgICAgICAgICAgICAgICAgICAgICAgICAgIC AgICAgICAgICAgICAgICAgICAgICAgICAgICAgICAgICAgICAgICAgICAgICAgDQogICAgICAgICAgIC AgICAgICAgICAgICAgICAgICAgICAgICAgICAgICAgICAgICAgICAgICAgICAgICAgICAgICAgICAgIC AgICAgICAgICAgICAgICAgICAgICAgICAgICAgDQog ICAgICAgICAgICAgICAgICAgICAgICAgICAgICAgICAgICAgICAgICAgICAgICAgICAgICAgICAgICAg ICAgICAgICAgICAgICAgICAgICAgICAgICAgICAgICAgICAgICAgDQogICAgICAgICAgICAgICAgICAg ICAgICAgICAgICAgICAgICAgICAgICAgICAgICAgIC AgICAgICAgICAgICAgICAgICAgICAgICAgICAgICAgICAgICAgICAgICAgICAgICAgDQogICAgICAgIC AgICAgICAgICAgICAgICAgICAgICAgICAgICAgICAgICAgICAgICAgICAgICAgICAgICAgICAgICAgIC AgICAgICAgICAgICAgICAgICAgICAgICAgICAgICAg MCj3X7szRMQqYIDnHI8wWDl7Dd9+ZCtZCzSlJSC9upArhL4ZUA5oz2CyRObfIBWfy6CgXCt2YU8CYCJs ZWaxQR5HXJnaiz8ZMSXdMJGtkSLMr3tiFkZxEBZ4PQWnSyohIU4NJZKfT7anoeFzFYDuXDIVIE6UJyDg Q3XibO66GMPFMy1+EHyjxmAsCetKVlP2EBDad4TyFT q9KH5VHLLyYssob2LeHuGfCKTELXfjWS6XETM8GHX6DLYxVs6GEWOfY807luDpQZ5VBp9QTbHiUD6hji 6IHsNgSXBuYgkSJid0FGtaUY0QcJXqBJhFdp3twnXyesEJd6KuwyEmtGOBkPJvaKHhI0H5iMgdELEwRQ SdTx9xRZ9sVPJzTFNzDiZ2PXMPGZ9FCCQzAZXufFYi BYHbSKYRSG8AIEvbXWJ4OdccscOxpKMyFRglEZ1DTKSwlnHvFiFnUACNDPz+Wf3WSH2bf5TxFTtrJxSx JE9qzg0FLOyQSfEpV2H5nGAgX2Y1OSncQt7CDUJwWMWqHaUrKEHTRQcdIU2VAW2goiU5HU9QwFRbPITk TNDitRCgCDr9Z20gdFOtNNhgRY9AMAJ+Yadira+Pg0KIC MjTAHkFHFoWdXaJMOGSwDfR7SnO5EZh7NsT2XaYR22bEdvlmLwEBpyAI4AHK3rZMKiFPSNKN5YsMIeoK 5cjmOpDANyHYMKRpFlP27ryBCtLFSmGZZ5MOSbVj4KAXLdN7QgihLstQeqacTxQRQpKVUFUO4RTPuwtc ZqnXPloIomIJ86ePmqEN8AAl5XOwMiIC1eox0TjHYw Ye2MGSCxSP8PYEMgRYPoDJCeVLV4BNRaIlLjGPdcHRRrASTwCQR6PPCfOOFtHN4WShZfMEMvKqJ0OEOj LMWmMJNbnj7KCJOwHVKfLgQ2EbSsZLGrSSXbVCdhAMNfNLBjPWQ6DRSdDGAoXP4LEpQdCFGiZTO0TuMn GNKbGQHykf2EXBAiOZRbNSjlJpEgMBPnBYAsDXnsPU XtQIPgBzl2OKCiRPQnSA4XBfBdEJWqEUV1BCAeYKNbPBHcdv3CZRMqURUeCzX0VVHiESWoKUSwHNhmOX VpKUE3TUJvBQAvYRHnCN4PZdDfFOWrLDCdDtreDTJtAWCugx2MFGUjYHCnPHOaWPVoZQFjZEJuXWujXE CxNNA1BQR9NZDeLFPoQG6PWoFgUSHwKMwfFCKaKXNk WCMlzr4JYVQzDOMiXrP9CiVvXWNwCVGyOQeoVLNgLOP4NiBsUDAkMKOmQD7VYtCpLXOzWHq9OzbcXKJb LLIkjq1JADByNGOyPZeqMjWiBCSqBNWiYNilAIEiJRX1IHCiOLTtNBWpTS5SUmSjWNYyYTzqOLTsMMVj TJCbzx9DSFZeRJQnARWjIzYcEPQgROQgZYcmVDUaHM YqJqD5EQYvZGOrPZ7DLrHpXDCxZwCdUBPiNVCnEYKvcc5QPJVgIAIkTBdhUoYjLCEhCFFbXFokPOZvLS LaDlAmPHVgWHZuFP2KDtSoAMQpGnJpDnVcIIZbKNYqkz9TKULcSOAcNqG3QFKfDMBaGJKjFKq2qtKhnO YwNHo9WH8RG1WrsdChCuoGVb9Jj851CWH0JQPfCn4P Q4yjTj3yQHFsIOGNIm2QGYa0VQWwAMf5NYq3WAI8FlojQCZvRMTrMVG5MiHgQVofXIM+IDxlYmZkOTk5 RogqLIn7P6H5IDQcJiGaCLZkFHMoQHDdSM1sSOUHDl3+XVkokWYteSgeUIESNmFkNxFbYMeqLRGJHu8T ID Date Data Source [id number] 07/14/2020 12:00:16 PM EST Name Value Range Interpretation Code Description Data Evelin rce(s) Supporting Document(s) Progress Notes [facility] LVQKYh3xIvNQRrEc35/UDUrkPGMcl4IhRPgdQSq2MUlfLOViD3KpUZH4zV6pLIC2GHcUYwYwZvHpRaB2 lbm [file] FcE0KaYPDcJcfmOJT3ZZUjAqOuRMCpEcHtNE2WEn4RHjZ5ZUS9pMRaGj6ACjFkVbAKXnGhKM6HSHf= ID Date Data Source [id number] 07/14/2020 11:52:00 AM EST Name Value Range Interpretation Code Description Data Evelin rce(s) Supporting Document(s) Glucose, Fingerstick 140 mg/dl 70-110 Above high normal The above 1 analytes were performed by [facility] [address]#: [id number],[place] [address] ID Date Data Source [id number] 07/14/2020 09:45:13 AM EST Name Value Range Interpretation Code Description Data Evelin rce(s) Supporting Document(s) Progress Notes [facility] GGRIGh7kTbZBIzCy28/PXDisTEFkn3PhFFnfRMe8CSrlKTRuJ0JgXKO9bI9lHXS1OZhAPpAmEcSwXgF5 lbm [file] ICAgICAgICAgICAgICAgICAgICAgICAgICAgICAgICAgICAgICAgICAgICAgICAgICAgICAgICAgICAg ICAgICAgICAgICAgICAgICAgICAgICAgICAgICAgICAgICANCiAgICAgICAgICAgICAgICAgICAgICAg ICAgICAgICAgICAgICAgICAgICAgICAgICAgICAgIC AgICAgICAgICAgICAgICAgICAgICAgICAgICAgICAgICAgICAgICAgICAgICANCiAgICAgICAgICAgIC AgICAgICAgICAgICAgICAgICAgICAgICAgICAgICAgICAgICAgICAgICAgICAgICAgICAgICAgICAgIC AgICAgICAgICAgICAgICAgICAgICAgICAgICANCiAg ICAgICAgICAgICAgICAgICAgICAgICAgICAgICAgICAgICAgICAgICAgICAgICAgICAgICAgICAgICAg ICAgICAgICAgICAgICAgICAgICAgICAgICAgICAgICAgICAgICANCiAgICAgICAgICAgICAgICAgICAg ICAgICAgICAgICAgICAgICAgICAgICAgICAgICAgIC AgICAgICAgICAgICAgICAgICAgICAgICAgICAgICAgICAgICAgICAgICAgICAgICANCiAgICAgICAgIC AgICAgICAgICAgICAgICAgICAgICAgICAgICAgICAgICAgICAgICAgICAgICAgICAgICAgICAgICAgIC AgICAgICAgICAgICAgICAgICAgICAgICAgICAgICAN CiAgICAgICAgICAgICAgICAgICAgICAgICAgICAgICAgICAgICAgICAgICAgICAgICAgICAgICAgICAg ICAgICAgICAgICAgICAgICAgICAgICAgICAgICAgICAgICAgICAgICANCiAgICAgICAgICAgICAgICAg ICAgICAgICAgICAgICAgICAgICAgICAgICAgICAgIC AgICAgICAgICAgICAgICAgICAgICAgICAgICAgICAgICAgICAgICAgICAgICAgICAgICANCiAgICAgIC AgICAgICAgICAgICAgICAgICAgICAgICAgICAgICAgICAgICAgICAgICAgICAgICAgICAgICAgICAgIC AgICAgICAgICAgICAgICAgICAgICAgICAgICAgICAg ICANCiAgICAgICAgICAgICAgICAgICAgICAgICAgICAgICAgICAgICAgICAgICAgICAgICAgICAgICAg ICAgICAgICAgICAgICAgICAgICAgICAgICAgICAgICAgICAgICAgICAgICANCjw/rJHnP1useVUiglS7 B4cvZv2UJi0OXJ9hu9KiBFKvAZqsyxRoZifMNoWqON QvZnjQOrv0EXmoGV0DaZZgI0DsK5PrWEnlIP4OETCgCSOrvEChZHFyVTOhHlD6SPDwCDqdJC8PoHAgJE siDANhPNLmSiWpWKEsUJYcGEKdWT9ZDTRgI378jtSmRg6QEg6EGnQyHH6bwh6HPfXqUAMmOmaYBcf2UG jfYM9QzBDscQOaJNZmNJEHJsQjF8rqk7WwUlJnVNHL ZUtkBR7Aa9PqpXMpVWu+Ht6PZW0lm1YuNCnbFUKaNZ4zqr6QJIyJXzJgT3FfoEcbPCZgw5gfAUSqWY9x sYKsNVX4OTVyfaN8YA7uEM2ueFTqz7j3UGdxQXDBDKDryYXaPsX9IhTsUvSyVEi5XfgfGG6pIYlzGC1R FTR0QZojNOFcLKZfS8hFZlAvEDaxMSMytPtlMA9KEm LmZ2NrzxSmhYRjUULhPHIVUk4+ZNmcgnInGuoONwSsNFMki8LbVJd5CW6MMFIeKFdnHG7GQMEuqW4lKO xlVY6VZuMjBRLqZGZMBpKuO43iqDKcLUa3M1PsGaQbCPDiCdkzYGXfNLkdCrVuOGZrHqRfKDmiMK8+ID 4+JKukCD4ELNzlkmSiAZBuPq5KRGLeDBXkFB4yKNFz NHHzR4U8bWoxXHBGQnFtQ1ilildpMY5hJPWvH160mQwxqxZuDSXuOREwFe8MRUFnKGX3LWQyaZPuVbwi OBVILSmoVL7OrXIfNWN6yL4nLFdoIPQsWXBzP0iPTfIydJmyBT21jXljfsGljSAyBFe+Vt3XZO6sg8Hw HZp1mdUcWFkoXBSuJJghLGNeMGNoBHSxVTN4SIU7JA WYBuBpYGToMCKqJWsiHVHjRCXblf5NNDToSJMvKaH6CFIdUOBxAXIbSBhuXVXlEVX2TtN4NIBdAVScVU 4EXeNiWPNuBJTkALlwSFWjTDYigo4FOGRtGACxKxsfPXCeJKOaYDUsXNrwHAQxUBYjJAL6WXBvPFVpPQ 2AIsSqZGYoXQAqKaQeWEGeBGZqxi9TIOYqAOIpQnDp NDOwEUDcYWHvTTmtWTLcSIJ6XXd8PLGwWJFrZV4NNtZaIOHoRGeeACXlQKNfZQRboo9TMNAmDNWmKOH2 FzEzNLCsJOZaXEtjPSTmLMEbSMM3BGRiAQAbUX6NIqOjCGPhPQP5SWJtCXMkNAGzvy5QPMMtGGJlDKUi ExPjWBDlRUBdCUzbQKWpCPLjTON1MLZiNEIgKO6NPn BxQRTmIEZ4CTBtPBUbEMMpsg5GNLExZWTbDod8MXHgOYOfAXDcORckCNObAIQxCUV0DJZnJTXmDU7REg SgUSReZZEzTLowPIWqAZYflx2PNGUlIIQmYTRsWjJwDSVxSDYaCEchYGIjJVC5JLE5CLNmCYZrXS8YGt BeGVPeSVC8MTJpJQLqHFDzcb4XIOVqTMWfJDR6AKFq BUGcQXWgADtbJEFhCDT7WRX6COCcNFKjYS8LOjRnOWVeNYVmFtDgGUJvYQVqak8RIEWjXWDaKiQoCBJv GNNfTKUwFIgvGLPrCSQ0MyY4LUUkCLOzNY3QLgNjQMPcEVf3KiDhIGNsTLMkqb6SWPYhIJIpNrw6ZxQt UCDwELZqCJdvROFtXLZ9GuE3LCOhLDBbJO2MTyOeCE MsRDn6IYrsCEPnJFCwyy7VTCPrHFTuAPW3AjPtEXVjXPYfNUv6klFvfAIeSTk9FL6VN9TotfPmUiXUJw 7Mg237KVRnRDMwKl3LV0eqHx6hZSNyQPTSIe7WPIv0JBQ3OMW6SpDmPQWpBQRoQRBeGIN6BQNdZ0X4Yi M5ZDA+OLs5ZFE4MYZrL7EgObWzWCU6XJV3YYYjQFFd IqfhHkkkRH5kIDRHFn6+NLquhSLfvNcwJRYFCeY5ZQM7BNrtEQQONg6S ID Date Data Source [id number] 07/14/2020 07:54:59 AM EST Name Value Range Interpretation Code Description Data Evelin rce(s) Supporting Document(s) Progress Notes [facility] ANDJKw8jDkNPQoLk39/BJDitMDYpv8OvCPtcSSi2DSouXBZsY8FmHFW0eI7gXEN8LEcPVvMjNqAqWiG3 lbm [file] paD9wiSgQJmoVwgpDt1PRGQRO1TDKz== ID Date Data Source [id number] 07/14/2020 07:45:00 AM [facility] Name Value Range Interpretation Code Description Data Evelin rce(s) Supporting Document(s) Glucose, Fingerstick 144 mg/dl 70-110 Above high normal The above 1 analytes were performed by [facility] [address],[facility]#: [id number],[place] [address] ID Date Data Source [id number] 07/14/2020 06:55:00 AM [facility] Name Value Range Interpretation Code Description Data Evelin rce(s) Supporting Document(s) Blood Urea Nitrogen 13 mg/dl 7-18 Normal (applies to non-nume kamilah results) Creatinine 0.80 mg/dl 0.67-1.17 Normal (applies to non-numeric resul ts) N-Acetylcysteine (NAC) and Metamizole bradley ve the potential to falselydepress Creatinine results. Baseline values before medication adminstration are recommended. Patients undergoing treatment with phenindione will have falselydepressed results. Patients on phenindione therapy should be tested with an alternativeCREA method.Toxic levels of acetaminophen may lead to falsely depressed results forpatient samples. Glomerular Filtration Rate >90.00 mL/min/1.73m2 GFR Reference Ranges:Normal Function or Mild Renal Disease,if clinically at risk:>or= 60Moderately decreased:30 - 59Severely decreased:15 - 29Renal Failure:<15 Please note that the MDRD equation requires an additional adjustment forAfrican-Americans (multiply the GFR result by 1.210).Glomarular Filtration Rate (GFR) is estimated based on the MDRDequation, which assumes a steady state for creatinine ([place]lar[employer] Int Med 139/2 137-149, 2003), as recommended by the NationalKidney Disease Education Program in conjunction with the National Institutes of Health and the National KidneyFoundation. The [place] method used in calculating this result is traceable to IDMS standards. Glucose 169 mg/dl 70-110 Above high normal [facility] Sulfasalazine has the potential to false ly depress Glucose results. Sulfapyridine has the potential to falsely elevate Glucose results. Baseline values before medication administration are recommended. Calcium 9.2 mg/dl 8.5-10.1 Normal (applies to non-numeric resul ts) Sodium 137 mEq/L 136-145 Normal (applies to non-numeric resul ts) Potassium 4.0 mEq/L 3.5-5.1 Normal (applies to non-numeric resul ts) Chloride 105.0 mEq/L 98.0-107.0 Normal (applies to non-numeric resu lts) Carbon Dioxide 26.2 mMol/L 21.0-32.0 Normal (applies to non-numeric results) Anion Gap 9.8 7.0-15.0 Normal (applies to non-numeric resul ts) The above 10 analytes were performed by [facility] [id number] [place] [address], ,[place] [address] ID Date Data Source [id number] 07/14/2020 06:25:00 AM EST Name Value Range Interpretation Code Description Data Evelin rce(s) Supporting Document(s) WBC 5.20 x1000/ul 4.80-10.00 Normal (applies to non-numeric re sults) RBC 4.26 x1Mil/ul 4.70-6.[address] [facility] Hemoglobin 12.5 g/dl 14.0-18.0 Below low normal [facility] Hematocrit 38.0 % 42.0-52.0 Below low normal [facility] MCV 89.2 fL 80.0-94.0 Normal (applies to non-numeric resul ts) MCH 29.3 pg 27.0-31.0 Normal (applies to non-numeric resul ts) MCHC 32.9 g/dl 32.2-37.0 Normal (applies to non-numeric resul ts) RDW 14.6 % 11.5-14.5 Above high normal [facility] Platelet Count 169 x1000/ul 130-400 Normal (applies to non-numeric results) MPV 10.4 fL 9.4-12.4 Normal (applies to non-numeric resul ts) Neutrophils 58.0 % 40.0-74.0 Normal (applies to non-numeric resu lts) Lymphocytes 30.0 % 19.0-48.0 Normal (applies to non-numeric resu lts) Monocytes 8.3 % 3.4-9.0 Normal (applies to non-numeric resul ts) Eosinophils 2.7 % 0.0-7.0 Normal (applies to non-numeric resu lts) Basophils 0.6 % 0.0-2.0 Normal (applies to non-numeric resul ts) Immature Granulocytes 0.4 % 0.0-0.5 Normal (applies to non-nu meric results) Nucleated RBCs 0.00 % 0.00-0.20 Normal (applies to non-numeric r esults) Abs. Neutrophils 3.02 x1000/ul 1.92-8.31 Normal (applies to non-numeric results) Abs. Lymphocyte 1.56 x1000/ul 1.20-3.70 Normal (applies to non-n umeric results) Abs. Monocytes 0.43 x1000/ul 0.14-0.97 Normal (applies to non-nu meric results) Abs. Eosinophils 0.14 x1000/ul 0.00-0.76 Normal (applie s to non-numeric results) Abs. Basophils 0.03 x1000/ul 0.00-0.22 Normal (applies to non-n umeric results) Abs. Immature Gran. 0.02 x1000/ul 0.00-0.02 Normal (appl ies to non-numeric results) Abs. Nucleated RBCs 0.00 x1000/ul 0.00-0.02 Normal (appl ies to non-numeric results) The above 24 analytes were performed by [facility] [id number] [place] [address],[facility]#: [id number],[place] [address] ID Date Data Source [id number] 07/13/2020 09:04:00 PM EST Name Value Range Interpretation Code Description Data Evelin rce(s) Supporting Document(s) Glucose, Fingerstick 98 mg/dl 70-110 Normal (applies to non-num veronique results) The above 1 analytes were performed by [facility] [id number] [place] [address]#: [id number],[place] [address] ID Date Data Source [id number] 07/13/2020 05:57:16 PM EST Name Value Range Interpretation Code Description Data Evelin rce(s) Supporting Document(s) Consults XSLDEn8lQrHRDqGp82/NKFwzMRSgr0JoLQmjULh3HIsxQEObS3UnETY6oP6oBRK7RPuCZcUgBaSqPyH2 lbm [file] AgICAgICAgICAgICAgICAgICAgICAgICAgICAgICAg ICAgICAgICAgICAgICAgICAgICAgDQogICAgICAgICAgICAgICAgICAgICAgICAgICAgICAgICAgICAg ICAgICAgICAgICAgICAgICAgICAgICAgICAgICAgICAgICAgICAgICAgICAgICAgICAgICAgICAgICAg ICAgDQogICAgICAgICAgICAgICAgICAgICAgICAgIC AgICAgICAgICAgICAgICAgICAgICAgICAgICAgICAgICAgICAgICAgICAgICAgICAgICAgICAgICAgIC AgICAgICAgICAgICAgDQogICAgICAgICAgICAgICAgICAgICAgICAgICAgICAgICAgICAgICAgICAgIC AgICAgICAgICAgICAgICAgICAgICAgICAgICAgICAg ICAgICAgICAgICAgICAgICAgICAgICAgDQogICAgICAgICAgICAgICAgICAgICAgICAgICAgICAgICAg ICAgICAgICAgICAgICAgICAgICAgICAgICAgICAgICAgICAgICAgICAgICAgICAgICAgICAgICAgICAg ICAgICAgDQogICAgICAgICAgICAgICAgICAgICAgIC AgICAgICAgICAgICAgICAgICAgICAgICAgICAgICAgICAgICAgICAgICAgICAgICAgICAgICAgICAgIC AgICAgICAgICAgICAgICAgDQogICAgICAgICAgICAgICAgICAgICAgICAgICAgICAgICAgICAgICAgIC AgICAgICAgICAgICAgICAgICAgICAgICAgICAgICAg ICAgICAgICAgICAgICAgICAgICAgICAgICAgDQogICAgICAgICAgICAgICAgICAgICAgICAgICAgICAg ICAgICAgICAgICAgICAgICAgICAgICAgICAgICAgICAgICAgICAgICAgICAgICAgICAgICAgICAgICAg ICAgICAgICAgDQogICAgICAgICAgICAgICAgICAgIC AgICAgICAgICAgICAgICAgICAgICAgICAgICAgICAgICAgICAgICAgICAgICAgICAgICAgICAgICAgIC AgICAgICAgICAgICAgICAgICAgDQogICAgICAgICAgICAgICAgICAgICAgICAgICAgICAgICAgICAgIC AgICAgICAgICAgICAgICAgICAgICAgICAgICAgICAg NNEgDBHfLRInTDEgRQSkTTFxMPRkFWMjDEKdRCWbMBi6F6vqPGLkYCIqXI0gDYr9Ai8+DQoNCmVuZHN0 swCrwO2BYP3fm8IfURisIBZgl4ReKWo3DT7KIJCmQPahRH1MYBfysf6UGSAxMHIiiDQEp6ztLyAvTSS3 GFBzAoylLL7KJJRwR2gubnBvULHqNTEJXNqlXMGLZD sdEZSQOKUpYKEfUuXyWvOjRGZfLROoOZMECGC7VHZcQaCtFGAyFHGdYnDsNEVUZNBcEHIwEaUfSMraLA 5Mg8SmuAEtGB5KZv2ONeVwBV0agz6EZOemLXYwYfcIPtx0VGwbLG2VcQPvsUZ7EQCcQNVZYdQiC1cqs2 YfWKKxLJETKCwwBB7Qj1KkhJWpRDu+Hy2DGK3sh3Uf VMh4XRUcLV5nxe5OKExVNfPfJ2KkkJedRBVqfhU7oUKqZOO4LDpxwgCKj7ftuV2byhjoFFQmKBEuTz8g LG5mLJUaQKW0GjDzKAAKUP3WQXYlHDAshRXmNXDuYWAUCA2KUTjmOHN0TlvtkbSguJCyFDzyDR4XYTSa bnQgNDkgMCBSDQo+Sk9YGV2kg5ZqGVu7GYQtIK9eux 1FAGcLSuUeD4G6wBGzE3C2HFakWk8KMIYrAKSqDXuuMAVPXSihXS3EKX5tmxK4RT2BgGPnJCVgKDYcmG VlTUk6U01ofOHkELyiQD9DAVJ+Yadira+Ks7WTMJxRJMvPPHrWsEwVBDGQuGxM9JjY5VKz7PzJ5UcPG25bK zxtzNwJPxyRM9WFR2iWFAtLIMBKP5DfNVpwZ9kfmO5 PZToITVULeVmF99zzXAqKXTwOWA1GCXkTt1HXVGrB6ZuhiKlrCvpycSnSIYmKJDJXD7KPJwubvKxcLZm oXouRP60mMidXR7KMk5ARuGsRX7gls5CwYLwQr8GLIS4Ol8QLPMiYBTrRVGuUWM8XKIaTpWgAFjcDPWe QXEcYCT7VHOoSRCgXT7HArMrDODiDoPnMADtQKMaBV Jseo0RHZQcXGD3XLc8EqGhJYKdTDWpVZaoNBToRRPmPDS1HHWgXPHnFR3QFtWkURVgHDW8SRQuGORqHU Arkz9FVLZiTRAkNmz4FPCtSXPjGBZjITqrORJnAVS1XPW4PMIfRMGbYC7FZiIiIWQlGNY2QjZvSHYpJH Bptf0VAPSfJZSkHbn6RmCrGMUuLPXeZOebGALiEME6 TwJdSMUdMVPmCO2GYaZuDCVcGRi0AxqmYLHqHMFpzi1DQEMjPTAoIEMjJNZcENSnITHlKNhaFVKfZYI5 BZL2JSXaLFXaSJ6IIuQcKLVoSTTlYyLdJNQfNNZxap3PTGToYNChObB6UVYbYMDtWAMkZPvzDTZmWMR7 VzbnMQMpBDRgFB5INeGaGIAaEPp3EchsWWTqXCWdih 9YQAGnUHUsABV8KOJfGMXcAGGsZWmpVVJsJLAdRfucMFPyAJCyTU3IHdChPLSqJiF0DWclMUKlZAZuku 8OQQQgKUZbPGJzMxWwZFYoHKCeASkjJLAiFNF0YlZ5VPAbHXXyJU5EEcXqWYVrHaIhPWZdRTIpLLUyew 6ARMOyRGKoGrMwDZGsACCdKVRhLHthBIWiNON9WRp5 NWMtBZPuBF8KBlRfJXYnXdr4BvynNEVxBEQoni9SGPMfTFXqRnb4PvJkFIClMXRjXFwqJPByJOP8BFE7 THDhJBCvEZ6LEvBbIEUhPevzWgTgPAUnWFBaki9PILWzBAHvHYXsJdCpGZCpTKVuUNgdLQXgASClZOD1 KFIgYJLxWR1CXhZvCXGaRkHbEwRrTXQuCAGrpt1IDS CqWCHeHYZ1WeOkPAXvBDQuVVybITVbBTDyAMXzQZTiHVIhCG7JFmOwTDBwBeR2WvVeCSUjZHFtez1YXT RuJLRiLTrbVyPuWPDhVUEgORhuHLTtIZRdTMG6AVCbEXYaVZ5OQzLyWCXpHmFgIuGqRXJmNLLgle7HZR VwARCjRfS7XERgEMXaJCGtRMjlMLHcXBO1WXU7UROp KMBpFH1OKcUqXHHgYHf9EBYyFADiWKQata4GUZQsUBK7LswkISWjWJYyFJAjJXjtLPHoAHD9DdE9NMSj OMGbAZ3ZHjGyOWYxMDg9FztdLKDhYHHeyf1DDLOdNPL8YEjmQIObIYQmWJOjUQtmICJzOFZ8EXSwCRVs UHKlLK1SMbBuGVQwIcPuRTFmELNyNIJumw0RIWVpDT P9XDC4YjDxKQRdJJAwDYgyNHIoMNWqXIX3LGHsKNTwUM8NAeZnSNQwQtAyLKjiYOMzPEHovt4BYUEsZP W5TkJ1SCVzAYMyMLLoKFj5raEhcYObJVm1KL2JO5BoycGkKKXWKj4Hs735JZHlNZTvGq5LE6hqKk7mKJ PpAPTSHr9SKVh3YPHuGdI0IRAaDKJ6ELD5HaMvAGQw ErP4D8NeG0YiBVX+NSx0TNE0PRTzVmQnCAD1DNZeCOLaAHP5NTPyUaY9XoN4II2uLADOHn3+DQpzdGFy hBtqBTFPOjViPFAeJYnqVRBMWf4V ID Date Data Source [id number] 07/13/2020 05:52:50 PM EST Name Value Range Interpretation Code Description Data Evelin rce(s) Supporting Document(s) Nursing Note [facility] JHVJHn5oSkTCQgNq48/QXWocEMVut1MfBDwtHKx8AJuhXVDyF7TnSLU0yV7iOZG6BEcEIaQiAqMjDlT0 lbm [file] XpL0XJF0vHUdAh1CAjJ4TcTIQzZnIC3JJTs= ID Date Data Source [id number] 07/13/2020 04:31:52 PM EST Name Value Range Interpretation Code Description Data Evelin rce(s) Supporting Document(s) Progress Notes [facility] MJUWMf4yNyBEMlDd74/JEUeePIYrn8JiYTumOAc1STqhRCUlC3RyPXB2zE8vCSG8RNjLKuTmQdSlIjC3 lbm XiFemWFlSqFVZwWyeKMeHlKFhfJvbwbZLlJY7RsXT3BWFeT79dGFEmRTWtY5ZtLDX0RTu+Gq0DGGRbrL WpEQ7EGehY2Urheym1Ix3loW+EJCI9XqF6pP53kdNCw4cyalK5jlTqAG+ohK8jw4Ej88to0g/qT+zukr L7p54lzGQ7yvPNS3yD4rmr4peo9n4A1i+z0pbUuUKm +X//B0j3ZCrXM/8gHqYF+l1hf571oQhoSFtC50W2I2RmKeOVYPwQ7Y/5CICbZM1rCsjCg5GmIr6EkMTx xFuf+FOlN/j3Gbhp1TTIQM+PxynWbAbJt8NpoLM/DvPCDQpuP3y16O00+BYhIPcr9oY0RADGJOLQ0AwW RwtVsMSMZAzFGemCTcenO42euZKxqZvffOzvO3iueg WF2psHDH5hcmhZOzgNuFxUQPlBPMaYiLPiPjYCvqykWMOO+4QG5Zkxz6qLwzZMs2JpFxDwdowLMA1M7H xSWZCHcDBSOwg1mUSOtSqG2iZvTP1h1Xu+s5t/qo1/RcXGtFF71w3jSy+Uf9zZBcP/qkPuVdwJOIAI1Z gdfopUhS491TbCd3IWBzD/pXqnIwhZ3jSHdi4XR65i dnFhnKYPxK+pxljUmBNL+GSuV45764O5LcOl4URoun97wiYjafWE5/h+Nf/4q5S3+m//penitentiary/HU5+qVYx [file] ICAgICAgICAgICAgICAgICAgICAgICAgICAgICAgIC UcQOYvMKMvZOFeTXAkJIQyQTNeUJMfZOMzQKYkGYXnFFUsPDNwOKYeDDHwEFKpFZVvLWEfSVUcPV7PNV AgICAgICAgICAgICAgICAgICAgICAgICAgICAgICAgICAgICAgICAgICAgICAgICAgICAgICAgICAgIC AgICAgICAgICAgICAgICAgICAgICAgICAgICAgICAg RPHsEZCnAV1LWIGeOOEqYDXrBOFmNWTdFAEvGVOjXCLtCYUoQJPbBMZdUJZmHEFlFVDlMNHwOWTiZBOs PAWgWRGxDCVsIETyMNWjVPGrBJOeDEVkWMLuONKnNYLeDEDpXVKxTQQsKDSjQVZrKS9KQGFsHGGgIJXc ICAgICAgICAgICAgICAgICAgICAgICAgICAgICAgIC AgICAgICAgICAgICAgICAgICAgICAgICAgICAgICAgICAgICAgICAgICAgICAgICAgICAgICAgICAgIA 0KICAgICAgICAgICAgICAgICAgICAgICAgICAgICAgICAgICAgICAgICAgICAgICAgICAgICAgICAgIC AgICAgICAgICAgICAgICAgICAgICAgICAgICAgICAg HWNzZNBfIEZbJZ0LIMGfYJPtNYEgJQAjRXQnMGKsWPObVXPaERIqURUbYZNyUFNxDFHiIIMeRIMfDMVr RGTvCFQkFSLhAIJoDJXnBPXdPOLfKSSuITPqNQVhGWUxEVGhYCKfURIqTXWaTBQgEPZyTI6GYMQtBSUd ICAgICAgICAgICAgICAgICAgICAgICAgICAgICAgIC AgICAgICAgICAgICAgICAgICAgICAgICAgICAgICAgICAgICAgICAgICAgICAgICAgICAgICAgICAgIC GfCC6USZMwLDGyHGRrDZElCTDlPHYoZLRrHKHgCGHsNQMwNKCwVMBgJFTlJCUnOOVcWIYgAORdOGYvJT AgICAgICAgICAgICAgICAgICAgICAgICAgICAgICAg DVWyBQLwWDCvEJPnNI5TPECoWTVsMDLqPMVsZQFqZNAkRYSbLXMyXSDrBDQnESJnRWPhACGqCENuCXRm CYNkRCDoZOWcQZLoXRTtDYAfMZQpSRGtWUTsHLGpTVKgGHOlBAJgQITxWZLdIEJyLRDoWDIyET2CBT01 aYRkr3N7LIHdXW3dhqi/Nv0AHXoueaOtbIWlXG2NMn AuNT5sqt7SNhIhJN3byg9WOOrGZqNrH5M8mQSdAAGeASSZVmOwN64hCJzzZh22AQewGVImRxExHFu9Hn 9PXcLkI4mmZKHpAnP7MWKiOmZ6MVFdVwM9HICgHnEgNMikKZ1Ra3EazCZjZNl+Yu2HXO6iv2PgNChzZf QwMT4olr7GJRtZWwUkF1DjzhI9JVMuBDOgJk5DPFJe KTBlfYBqQtYjRXIJBsCaW2AlrV22YIDAVg8+ZBvsfkOzZkzOLkMaGVXjk4LxRAx2ZU0HTSHmRNe1bQEf WIJhC5Zun2UcPq23HSLqWgpxIfO6PCcsfg0wXFZcHyjwDWMeGGImPg3oIP5nVMXdTVD0BuKpQTZVUN4O JXEmEZFuxHPtQPVkISAUQY7KAUjtFJP4XavhrbDelF SwTNjsRQ2YFFKeflTeZnNpFDSYZLd+Pw7EEH9nc6TpTLseVXSvFC6def2OEEcIWgUkN6Q4fUPfU3B1AN ioNk3OXSPlNBQlRiYqPGRHQXbuAC8QVJ9panM7MC5XvIExAXFpJANqrBRnYAt5E69cpLGdUYlgIU9YJF A+Yadira+Aa6GGWHwDMYvSKBbLtDmCLFEQiTpD8IiU9EF c4JcS8MgTA73uJyiluAcAArqFO1LFN4sVOThTRVQBE2KgXWapZ6pvgKyQdMrFMBNKzOnC52otUVzQAFn BBYqMLWfZv8UVWSrA3CcbgAtrKoqjrGlWKQtDJGBUM9FPWuxpuZfyWPfdOxoJX50rSqmFC7JXl0ODcSn WP8boe0GvIVkVh9RSPNtYZ3AIXBmKINzEUKlXXY6DO MtYaKsHXxcKPSqGZHgQKZ4WQYiBQGwDI8BJpMtCNLoGhvrTLNzCXLpZZRnpe4CKTHkSOTfQLx6XxWcIS WaUFPfLZipHZPfTNUbCQW1OJIjEFJkVB9SBaHmUHFjTQN2TnjnQNJzFNSzmp8ATZAvBNJqRaNqQXNpQR DgCWRrLAlqYVSkLVP4NxU2XAYxHBWxCV1QUwPuIYGa GXW5QRXyKZXjCQLcmg7IJGKhTJBnUqw0LxRlWGTbKNByIXbxYYAjNEC3BTl9GQXeHANmLD2GFjBnZTEr JDtnXyUaYMUuSYDmxy5GHHMcNLTmJNUxZTJvVJTiNEZjXDizDZCpWRM4VVM0VJYdBJRyIR2CQtSoYVDg FFM2HMNjTJAiWFRnly8MKBCyPGZgEOI3EaWnCMPnGQ XiKSyfHGDnIBOzXPM9KCJkXWRfUI3FWeAnBSEaOlDwAULsXDBhTFDsye9MCZDkFXKqDfAmGBEoTEBzXU ErLEvcYSBmUHVlPfRgKJPnJVKaSE6IRtYmAWWzKzN8GQZqYUZeMKGkne8MBRGmQZMnACIyBjCmFCOvDZ WkJXpxUDNsJQI6PFJ4WJXiKWLsME6QTiUpPBTaBsMx NcXwIWKfDGAavw4UGCPeCYEfINFuMUUmPETqRFYbEXbjWSIyFKI9EoitYBXnAAEuDN7GUuUtFCJiJkS6 OjQnCGDwCXBpav9BCHOjBQNpGtjjACDuQPOjAPXvJRgxAPVxZSP5JiawIHThRCWqBC2DTaOgEIUqOcs0 FhkmDSGmTHNioz7PESVlMRFbHJS9AXYtADZrQJRdPU whYFIaJVO3VZIhKJDrHTOrSQ2GJjRjTGZqQwu9DvAjREDhOTKqhy2ZROZpAENrZQFqUCLdOSVcKICmRV wdHMXnIYDdTFtlBEKgYSEhIJ0TSxXcJNteRWCTZsc3PErvY5e5IAUdVJ0NK0Yji6YkYiEgPEOSUHntRC 9aufQcYOVzAh9NX9sBIcuzHXWyYfmqIhM1RmK0EIKf KsS1HID3IiI3KHbsCwP6OU7xMTU4NcGxYDKiQyddItdkRuLrNuYxQZKvPGv7XGTjOjc9RgDtQP4NMw7P EbV2JTC6jCZgEs6ODmZ7SjSNCrNsAD8YGEs= ID Date Data Source [id number] 07/13/2020 04:04:00 PM EST Name Value Range Interpretation Code Description Data Evelin rce(s) Supporting Document(s) Glucose, Fingerstick 154 mg/dl 70-110 Above high normal The above 1 analytes were performed by [facility] [id number] [place] [address],[facility]#: [id number],[place] [address] ID Date Data Source [id number] 07/13/2020 01:37:28 PM EST Name Value Range Interpretation Code Description Data Evelin rce(s) Supporting Document(s) Progress Notes [facility] YUIJSk6mVgFPPrJe54/YZLnnMWXwl8FnNFodAVk8RCsmRPZzD1VvWTT5mE2jKIA4PIrKLzIaHuZhCwB4 lbm [file] CnOE6GBFg= ID Date Data Source [id number] 07/13/2020 01:14:53 PM EST Name Value Range Interpretation Code Description Data Evelin rce(s) Supporting Document(s) Consults LMPQLt7nHxSWPaPd20/CAEtbIIKmf8RuSDpuASa9GDyyZHMsG4TwKCD4kS6oCZH5YXdAKsPcImTsKdC1 lbm [file] ICAgICAgICAgICAgICAgICAgICAgICAgICAgICAgICAgICAgICAgICAgICAgICAgICAgICAgICAgICAg XADqIHOdKDXsPGKmIXQnSKYwDFZiPVYcLIUeXZ6KIGGwENLzIEFaVAEkHTHaHECoVCSfZNOiJKMrENPm ICAgICAgICAgICAgICAgICAgICAgICAgICAgICAgIC CoVYYcSAKkJPEnULHxCKVbXTClQWQxGUDkUSHsJCFeQXXlUENeXD8CBCUhBJPzJSCrIZKhZGOkHFFvTW AgICAgICAgICAgICAgICAgICAgICAgICAgICAgICAgICAgICAgICAgICAgICAgICAgICAgICAgICAgIC DzNBSoRKZsDWKzHVJjWDCwEQJfFF2WCQKtFPAgFYUs ICAgICAgICAgICAgICAgICAgICAgICAgICAgICAgICAgICAgICAgICAgICAgICAgICAgICAgICAgICAg MUMuMWRrXEIzRSCkOZYnKOHoKIQaBTLeRRTsLXFzUE2ODEJrEYKyTEKwJBMzZAKdRPZdUTOjSJOvLWUe ICAgICAgICAgICAgICAgICAgICAgICAgICAgICAgIC SxMMVoAXHoDIOxUPUgRHMhFNGpLCAnTLZoNKVaCFMzFGTgISXaNVKnTA0OQIPrWJZbYJDgJBOiHYEoHO AgICAgICAgICAgICAgICAgICAgICAgICAgICAgICAgICAgICAgICAgICAgICAgICAgICAgICAgICAgIC OgKPEpWWQhISAqIXKuAOYxKTWbCKKjUQ3TLSHsBFFc ICAgICAgICAgICAgICAgICAgICAgICAgICAgICAgICAgICAgICAgICAgICAgICAgICAgICAgICAgICAg EGPvUSJjQNTfZKPqLWYkWJKmSRWwPFAnFGZyNRBkTGPlRS2HDZJoXGJlPIJxTSKpTRXvVLLaMHPlCBEg ICAgICAgICAgICAgICAgICAgICAgICAgICAgICAgIC UnTUAxAZYpSOWbDMVzPCQoRSStIGSoSGReWDWtDHWkRNPoESQuHFMeNCMdMQ2VDITzUQOzHIIgAZYuLW AgICAgICAgICAgICAgICAgICAgICAgICAgICAgICAgICAgICAgICAgICAgICAgICAgICAgICAgICAgIC UgKUVxIIKyPMGnDLIqUQMrNYIqOHAoIEHlZF1ZCTEt ICAgICAgICAgICAgICAgICAgICAgICAgICAgICAgICAgICAgICAgICAgICAgICAgICAgICAgICAgICAg EPYdTCZaEHKpCISnLQLaOSGbLACxKYWwGLVnWDUyKPRxWWUlJD1HNA45mHJca8X3UHHgUC3pihv/Pg0K SUxfnxAzfGBtSO8YHoIjJP4brk1DRuSkHQ2uaa0GQM dYXrTdP6T9wZIcAIHrVPCZVjZiJ32eWVnmAr66CHiuBINxCzRgUKr5Nv0IOlKnN1aqARAfXyZ9OBNbPo O0ZJTyKhT9CKWmBoAaCCExWTJhZQYtTOZHLVA9LJSvYeLwYqCdRSDaNTsoGFCGLXIfNXGwExUqRcPjKB KwBzVyFEFQCG6ZKaOgC6NzyZ25OYCzFUm+Vm7FVR3b z0QrKZx5ZBBlMO3pvm2USRzIPyWjW2ZrtzS4PVYmCZIoUi9SGNJcIISyaGY8EHGeQHLHRbOzQ9CtsV60 IDENCj4+HVvebyLrBeyHFjWdCJNxs1ScBSc7LH8BFUAyHZi8dLVsK76hr1GzkREtYuldD9G6tqL9QXLz iJGkXULMDZStoQWhUuC1SeNnTlGmAAC8QYmoUT3lIL qtYQ3XBWR5SQanYRKhRNYqG9kSTtCuWSnzGRLtpEnsNU5VGqUhN4CtgcRkeIN7HJIjBWNIMx0+DQplbm BwEtaTPxJvGOCtc6EdADo7IF6IWFJnMUjmXO3BRWObpY7gXWcqGK1EGuF0YoGsLKABTzHqJ11pbHYjOL h2D3WwRuRwBTAcDmikRXVgNTkzRwNjXIMhMqQyRXur ID4+ID4+FNrlGM3LTVrxcoRwROVqKw6MQUGfMKFkBE8fVNQgBYQwH6O4hZfgENJAZfHhA1rrscwoXC5u JUBzN498uZyhnbJgEGT2TFAvEu4YNWYuXEH6PMNvpDKrMJqsYVWIJXocBW3IpBEpGSX4tU2oYHpwWDWl YHQyD0jYVjLujBqlGI12mYgkujCsdXGeBCd+Pg0KZW 7ub1DbBTm0wzDvDKnjALYtAWkyPQIhUQUyISJuEVU0EWC0ZUVEMnOxVSKpQUDxBNegKMXmTTSjjl7FPQ RzTZWnMhvvYHOlRXRsLVYcUFeiAJFwSTL5FkInPIBuWHQiHO7LEtLeZKSrGYVhZSktRCFnVNAglv4FVW GzGJLnOLWqKvQqVQAqBTIjQOrzXUPhMIS2SzKwDSZn PRAgGL6MOoTqHFCsMSdvSGhjPWBrPNNfni3IJOVoTMMyWrKbDdAfNEYyXSTwBPtyWVBmACC6EVScPHBk RBOwBN6FCuQnQPVsWXaiXAFzFGIsEFPdsi2NNQXkTSTxYEz6MIScLWNtIFVkSMwxNIPbOBZaMMd8QCKn MLNnGN4ZKgXhLLTvXVYgYuMjVZPiKYQusm2NMANoFM EcBgSnUJErMNKmLRXtLRbvGAReGYZ8LfI4LUUoJMFfKZ9TIlWaVNEnLMI6LxXxOCQhJKSlhf8ZXSPpHT LzIYJ8BTPlXXNiKQHlHBjwJUQkZHQ3QNHzTYWtAAUqYS2DPhEqVSFxKuJbEXUpTYKwOEZfbb8DJMZwJS TeTDL4ZMKfVTUaYDEvKSfkKFCuQOCwBXKrLCFyIVVr JM4SDnIgLMQwGmXnLsVgAJWsIOOcoe4GSVGdBIMoGuJ2LLKkOUZjUXGpGVnoWSMwNNU4QlQ1SUHbOSPh OU7OXbYxRSNbOujmLzNcEPChDSWoyn7YZVTuDVRvThVfACEaOLVfMKOlEIrpRSMaLPT8Jgr5UFQlIICh NH5SQhTeXDQoWwt3OPvjVPRvAFEhha0ZIBJpYGChAT E3TtSzYZScBMXvKVtgPBOcQUB4BvZ4NJGuIROpZX5ISfMvOXBlNvt1EmVpEVXrJMYseb6YEZFmNIRzCY OwOdCwONJmPKIwYFqpDKCfCNMnJGf1FATyBNFqIP0QApSnXZHkVySdNrJqVOEdPLPgtt2QWMDuVUKnVS X6WNFtJHYaWNZrKPipILTqDNUzIyMmIXBjLEPqXS0V EdVvLSNeVqI5LgolHAWwXCUcvl9ZWQIiBZShZbgaMdAsSFZiEAOpSJheVBUrNQOyVyd2LLQdQBAeFK7X IkHsXTAjWdH3QBJoBIJrUBPoap6DIFIvBNTnIWI2BcTkEDCdKSTdYWegVPGjSLV6FVOkMDFhHIYgPJ2M HpWgPADeKxVhZmNdQNOyGGGrpl8ZYONuAIIkTGKnGs UuAMMfUZEkWTebIPQaIGG2Gdo0XTUtBRZsMZ7YBcYnSHKuXaH3QYWgQDVpRHRxgh8PYEHgCAErAkl8Cq TfKPRoZKDvQJhsJUEiZEM4KudsXHOeSRLsJH7WQzJpFPWxEnf6ZRylGGDoWGEogz7IQSNmNOXiANb1AP PyLKIdHTBcMAuwLIHlJPM3UMHmTYHaDOLyJV0QGpHq KAuqZSAVWno9BNhcN0u8VYV5Ji5QR1Nzc8NuZWYiCQWXPErhSK3pgiGtJCKfBw4OR4pEFzj1KaPgZNMo Jui9JFRnUFhlXaHsQux2SkouKjNvGYJyVv4eHWe6MPTsAxScORhpYeUmCPZjRBPnXqNtDTAwMSJ7QRJj NaHzPQ8GFj9CJrY2EZQ4vJTxGk4PLrrhRVOQZbCgZK7YAOr= ID Date Data Source [id number] 07/13/2020 01:13:17 PM EST Name Value Range Interpretation Code Description Data Evelin rce(s) Supporting Document(s) Progress Notes [facility] HXOPEn2yFkZIMjMj69/CCOttGETfy4KdTRdhKKp3ZZjsEWQaD0FfMYY7jT4eVZC4WJaKHqKbLaYkJsK6 lbm [file] family health nurse practitioner+uDpoc3pszzo9xZFt/Gs37Q/H0Vir6vrsxbSyGujpUX1/0Le0lrm84KmlQc1D8c0lNwgv2zLeZ3l3 [file] AgICAgICAgICAgICAgICAgICAgICAgICAgICAgICAg RIEkRLBnGVNaPU8YEMHbVNMcVVVaUXUsUHHvRVXgKNHvPZShQFYePULiSYVuILPlSPGnQJApDOHbXMDp XLMeCMKqAOMlHNXeHZNuAAIoDZOmSJBdPWBxNHIcEIGgPLYsLGLoDDLbWBJeOZVtWEXmTK4HKPHtLCPh ICAgICAgICAgICAgICAgICAgICAgICAgICAgICAgIC AgICAgICAgICAgICAgICAgICAgICAgICAgICAgICAgICAgICAgICAgICAgICAgICAgICAgICAgICAgIC EoDK8JBJOtSOFbGGRmPJRxRBQdIUItGOWgEJCdIBLdNOKhAAHjEEObKENsLZUoCQHmTXWyAGHwAVXtUR AgICAgICAgICAgICAgICAgICAgICAgICAgICAgICAg AWBsNNAzVRGjBGCdFQ9APATzMCIlCJXcHFVbNQCtDDNeVDWpKWEsQQEjCLPrJJPvRKFqATPaFADsVXOx PEZbSKUqPPAaADGpNRLcHWHuZGGvVNKxLMImPXDsFNCxLTJfUKYwWTBgSEDyOKTvGCKuEQCdOX8QPPFl ICAgICAgICAgICAgICAgICAgICAgICAgICAgICAgIC AgICAgICAgICAgICAgICAgICAgICAgICAgICAgICAgICAgICAgICAgICAgICAgICAgICAgICAgICAgIC XjVZTtFU8HJSVaDJJzICXzIUXnPFMfGYRgKDTePCPkHKUuNZZoTAEyTCYbJZVbXWCwSDRrBHNzQMKcZA AgICAgICAgICAgICAgICAgICAgICAgICAgICAgICAg RCJpTYFiIPLnWWUfRJWyND6GYUAcOZQmBNGdIESeNCApXXZeUBPpZTUgLSRtRBPrASKoFRQlJRWhNUWu QYDqBPCsVPAgLQZyOBWmERZkYRZuSGGrLXOeRAAmJXHuTVDtOQMpHVFgTOUkJWSkHIHhVGZbEVZsDA5L ICAgICAgICAgICAgICAgICAgICAgICAgICAgICAgIC AgICAgICAgICAgICAgICAgICAgICAgICAgICAgICAgICAgICAgICAgICAgICAgICAgICAgICAgICAgIC IdMRNdIYGuBY9DYIWfPJXySKQgMAPtKJYsNYFxYSXyBTEiTNHnYWSrLIAgDMXfSEKjZSOtDBRiMZVgBR AgICAgICAgICAgICAgICAgICAgICAgICAgICAgICAg GUMkXHIdEZExHUKyTZZcJPVrSQ9SRR48aVXln7U0MBAsFG7ylka/Zl5DWAvftoYavGAgDN4PFrPhYA5v nw8EAhZqNI9nxj7KVZkELhHdK5L2bWAiNGHaKWIFVsQwF73uGLueNm17WIoyTLKjSqCxDEs8Sd6RNtGp W8lmHIRfPyS8ZWNzUgO0QZHcPcU9TIMkIoWkPVVgAU KiJNBkKPSOXKC1TEEdKeEuZsMtTHRbFOpdDVSYSO8TZzVmH4FysL81ZNbHYg9+DQplbmRvYmoNCjQwID Qlo7QwURm9DB0XYWVkTrwar0HuJFSqTRPZQAhqJK8ERIR5UENsSOAxKu0AIPQfJ787jpEdJW1DAp9LKb NyIZ8vrp0JMUFgREShVffOKtx6EXinRC0AkTCqUZrY ru7jrmRuqoMPy7KbdhTrzQEDGSVgJVMxAVC8CFfqYH1BADE0HQAyVIpiNgDbPKRfMCbiMvAKEXkRBjYl J5Ntn0ZxIlJ2AVPlVrAoUUjgZYRvThO8TA82rKcbRI1OVIPeCLTuYG09XRDfVLWrBv4AQx8EHnKqMW3q eh1MWJWpWYTxQstHPwy0VBlvGD9SuJUnP6NyyWOhz7 fGBbKuD5BXOER3QXWqCr3JJMFkXdByUFYoZAviDW4oXZMrQFCJgSyjjeV5KH0OXG6topIsUG7ZHcFzGv 8uWt1GVpTvA5OkD8EfLTYyOFXXDOjrAO0INIjbJR3pXQ1Hx9OBeABeaT8arg8KBPYpHBKzEccbhh5OQa ymA7G4eZirPEXgUXNwKWFIOSviHT1XFDTgHGD7JUGi TGJiYIFBCaYxT61pSB8SI7Xaf56nRjN7NPXdPbQkOUbnIZ16eGecvxZbwXXwzJcjXQ7LGk3+DQplbmRv LzwUIzmkOUVBJtUtJRQLFlRwTSYaHCCjFFWjXpN6QePwHz3CKLHxSJBmLKTnIiLqNZVeJXSrYUlrLFBp SSE1FqO8BICiYSQhMA6SOnNyOVCmUaKvGtRbOQCzZD Iump2KFEYbFTBtPER9DbIrUDSnFPXvLKrkCZDdZZYqNMXiBXJtIWOdLW3EDrZfEKYpNSJvCzMcQVBbYG Dqqp9XLRLsBITtSQfrRdNeSSScMULnCXtfDYRiNVV3GJA3SVHaMDOlXG1BYsNqKTQmQXb5DHWzPNPhFI Rbwg0CKZWlDDJlUybpXNGxWCMqPWRkAJgrJWGjUYX2 BvE3WKNyVJTeUV9SXrWfGINsYKr4EcYvGBBsZWYcrw5LLSSbVQUaXTigLvElLIOyFIMgIXroCLIoYVHj BVZiCCCzOPHoTY3JGfNxTYUbAXY8KQRtLSMeYGWsfd6MDJRwEIPoOPTtYvMbXUMxQIFdYCyjCPAzSMW3 UiwgIMRrDZFzQE4UXnZjEZRkANb5HhYhNMUtMZBlrz 5HBEYcJAJmVKfuKXTwVZHjBSLdEDzsANKjMFXcJZZhTRGjKOBcQS4WRoEmPDDhKbVdAWjgYFTySFVkbh 0CUKMuCRPzWFDtEQDbEVCeFYJdDBjqKIMxCILqZQj1NKGsXWNsXI0NEkIwFCCmGlO1URpsNLYyHYYzbx 3LJIGkDRGnEnZ9TdMyCHNdNIQkZXmaVLGhKUCzCEZ1 WBKeCENyWF1TZoStUBElXiS3WXqrLUKkSHQjku9ZAVQnVOOcDzx1GYBlAFIuFFQbOGhtKIWkHXZ8BRfm FKKrWQUdXU4ZYpZoQPFyKbCmEnRtNJLvISMheh0EULHdBTIsWMOwFSGwSUFkTYSaZKpjVHRbDNL1EAP5 FJZrQQKiJY6DObIzKVLgLhL3CHodUELsFQMrgv1SOP RhUBYnRnC2DRPnXODyDWNlJEzePGXeZCY7GXfqKFUcKHRiGQ7GLpBlCCBsPhh3TnIeJYMoXJUkhx1EZX PrVYFuAVR4JfDqVXNkZEFmOQytTYLrHJI0RgAlJEScSLNaDP4KYsYoCPLkSlp7YlJaFYQvULCxjo7XCK WrDUMuCVItGZNmPSNdEDVtRNczKJWaISQgFfc7EITm OPGkJA1QKwLtWDGaVdE6AcWbHIWgLUEgjx1XcGUkzOsvse7TEYaJZw4QnWhnJBImLDqxXe7ecKN7QsTc ISFCBv0RkwQtJRAbHCHPBBryWOKxYWMbYRWkJBItBjmtKEZkUAzkZLMiIiJqJOMaLXNuN0K6HpZ1ESTv YRU9CeK9PVMeCvJeRUIsPUX5DqS0GFY7GJBzIyp+IF 0gDQo+Hf5Fv7JscbC8wwIoZGpnEXG5Ig4EGGDXS3VGTw== ID Date Data Source [id number] 07/13/2020 01:12:02 PM EST Name Value Range Interpretation Code Description Data Evelin rce(s) Supporting Document(s) Progress Notes [facility] ARQQPg6yMkJGTbWq55/ZWCfuAIEvy0HhRLsxCNs1SVieQDBiO8PbZMB3gZ3qMJX1ICwBCuCtRpFlGlO5 lbm [file] AgICAgICAgICAgICAgICAgICAgICAgICAgICAgICAg ICAgICAgICAgICAgICAgICAgICAgICAgDQogICAgICAgICAgICAgICAgICAgICAgICAgICAgICAgICAg ICAgICAgICAgICAgICAgICAgICAgICAgICAgICAgICAgICAgICAgICAgICAgICAgICAgICAgICAgICAg ICAgICAgDQogICAgICAgICAgICAgICAgICAgICAgIC AgICAgICAgICAgICAgICAgICAgICAgICAgICAgICAgICAgICAgICAgICAgICAgICAgICAgICAgICAgIC AgICAgICAgICAgICAgICAgDQogICAgICAgICAgICAgICAgICAgICAgICAgICAgICAgICAgICAgICAgIC AgICAgICAgICAgICAgICAgICAgICAgICAgICAgICAg ICAgICAgICAgICAgICAgICAgICAgICAgICAgDQogICAgICAgICAgICAgICAgICAgICAgICAgICAgICAg ICAgICAgICAgICAgICAgICAgICAgICAgICAgICAgICAgICAgICAgICAgICAgICAgICAgICAgICAgICAg ICAgICAgICAgDQogICAgICAgICAgICAgICAgICAgIC AgICAgICAgICAgICAgICAgICAgICAgICAgICAgICAgICAgICAgICAgICAgICAgICAgICAgICAgICAgIC AgICAgICAgICAgICAgICAgICAgDQogICAgICAgICAgICAgICAgICAgICAgICAgICAgICAgICAgICAgIC AgICAgICAgICAgICAgICAgICAgICAgICAgICAgICAg ICAgICAgICAgICAgICAgICAgICAgICAgICAgICAgDQogICAgICAgICAgICAgICAgICAgICAgICAgICAg ICAgICAgICAgICAgICAgICAgICAgICAgICAgICAgICAgICAgICAgICAgICAgICAgICAgICAgICAgICAg ICAgICAgICAgICAgDQogICAgICAgICAgICAgICAgIC AgICAgICAgICAgICAgICAgICAgICAgICAgICAgICAgICAgICAgICAgICAgICAgICAgICAgICAgICAgIC AgICAgICAgICAgICAgICAgICAgICAgDQogICAgICAgICAgICAgICAgICAgICAgICAgICAgICAgICAgIC AgICAgICAgICAgICAgICAgICAgICAgICAgICAgICAg OBBdGSEvBHPeCVTfBGJfSFOuHBRuIOFuHJPlBFIsUERzXEj2C0mwZTNwYTQkTQ0eQEe7Lm3+DQoNCmVu LYX5veYpqX9VAA3uf5PpWLgsBIWrh6YgULu6KM8MPIWkEWbnQK8JAIfymh7GBWWdWKLejFZQg3hfRoUk OZI5LGSgDellKE2IUETgW6tyotTsTIRxBPNPAH7MUl QyE6CktL50XGIRBl0+DFwvlyYlYcfKCfEjIDKsu4OwQIx3SA5IZACjTjyra4XdMtQlCAPEBGdvZS3KWG Y8WFVjYAOoFm3VLZKlN795efDvGK3MEl3JEqZrUU3cxt4QWkAgHGKvPbuVKfq0IWgnAG0NcEHoMXjHht 2swaWholTUm2QnxpNlkWHHsWCnrZOwG7W6cNrpGKOy BRIyNz4hDX5cLHJqFIXwOjU7JRZNIQ7ERSUqHIKmfHRaPXRmVVMPUL8SYZrvFLA4AsmsjoDnjDRwWWyl TV1VJGSvktOpIuOeNZKSWKw+Tc7IRN7ie5KmGZdwPDRlGK8dzh3BEVcGHdSnT0Z5uGOqL8R3KTsbPw2I JBNyJVYpBwZsDUVIUEgmNR0DHN0mazZ9MH3DxUVdLJ YvQNDtdSNkNJa0U81wjIPfZVwaIE8QVFC+Yadira+Gn8YSEWjMLQkRSHnZmAfOVBAKfIjC3MfH1XMq9VbW3 KpAZ95gMqajoGyQTrdGR7BUM5nIOCwEODUSG8BmYQzoU4lijPwQdDkYKUVMyHaD59pcWJjNFGlFIXqCO UkNf8ROEOjS1PjmnAewBpcecVmHBLyRUSPGF2JVXhj sfCleURnlIonQP22nNqqBK2CCf8JVzSgOP9oao9ByPTzDv9ULBQbBP8UNYGeXVYbTBMxFVR6OLAuNeMh RIhwPHDtTFDpPIC4IDOmJTRnLZ8LArGsOAVwEKd9DYnrXWPnNDOjpf3CQHShEEYcQOQ1JOMqDIDsFHTq FOgbBHOaGSZqMIK8BZCnSAWtJT8FOxCiGVVyBFO0Um mcDXYeKJFild4JKPQxUBAdASC1VJEyFRCyOFCuJZlsOAZxWJAgQcC4BYCjFQBvPV3OOkJqAXZuLPI7Ll IhUGIoUCVikq1PYWGoQYAhGkEgIIDkRBXgCKZeCLgqYRBpCHCnXJz7VGTvLVVxHF2ISfJgVXJoTCXgDx XrKQKmEZIwil3WLVHbLVOgMKW1OzNrLEJsZUTcCGsb PBUeUUW3NpHeOUAyYQZzLV0KNwGlJNAbALxeVQzrCCWoBPGvpy0KOKKeZTWwOwRqLfAkCKXeNCNvOIhg AUEfGQZ4SWH9TCSiLSVmBE9MDpFnGBDvKId7YPAjHVUeUOAsms7NZRKmYPIgVYI1OqCaPWPqLRXaCNcv CCCaQHB5RgC3NWXxBFNjFN0AQgUkGHCaTTr6ArNoVO JgHMDktp1DIYNwGFIrFGK8TGWnMHApEOHzLPnkOMSzXEMbDox4RRCxWNBjON4XVkDzHVKaMpE9YBUhBD NoUFEnho1YPFGuCRAoWLb0TxEgKZIoZFDuIFi4uxChwSCjWAd0HL5GA4HorwCtPiTMSu3Bl021WUL3XN RpDy6UE7vjIo9tSYMsUJQHJe3KUJc0YOHeXEqgKjL9 IOHvKLYlGFW0JURgFlNwTJaeRYO6LfB+FWd7F6ZeJXL1ZaZ3KoJ6OcO6LGfcOUPsDiImHCTtPdycHL0u XSANCj4+OHnznOEfsXmePKBYYuBxFzUwRXcjBRCYCp4F ID Date Data Source [id number] 07/13/2020 01:02:19 PM EST Name Value Range Interpretation Code Description Data Evelin rce(s) Supporting Document(s) Progress Notes [facility] YOXDGr3nLbDZOxPd44/KPUwaUNDqm2UdDIsjQTi1RCxlUSLnO2KzNKE3rS8tQEG4TUaJOyGwFbAySiB8 lbm FiMxtXOeSjDVZfNhrKZdMxNXllKzzhdVGzNT6SoCY9ICNsH76bPITkJAHvN4HxMMO2BFP+Aq5QGGPcaS TvXH2BRssE2B2Ig5k1YwDrD4t/uQoPduRBFNQ5DxIQQfeP6RLJOqyldmdRIqbXZrN3xHtvc7+Lg7G4dG nTa5YHLe5qM7sHV5qiR2gIyMK752l5yeUUOmV+7Taz YlqIHno2t4A/YSKjQd4o5TJ2vns9hXdKTqUF74/wvIgynQx+mN9GmoxdOirsFV2JKV0yW+zLHDhUXA3d aaevc/c0Ge1acVGxDIc7jSHTf6njech63BtPpfrSdyVBMh+Estefania+DjoHUkybZkeoikwj1B4ffo9rPk75a [file] 54Vuz/dPKdwFM/6zWaOp1S2tDJA9tGSjq9pmRV3Rss0sbvqVXgFs+cU/wYeh80/J33YelPur07uj+bottom stop attacher gNdUS63ZXZGWIIIept8dXnxi9DO4xnt33WSOj+hooSf7dDUrEQXbt/PsTwFPSoriaVlJ+xXP/paVzBMa pCcLimOVIefcOUeMCLdQsXIVLb6oCXtFvjihmMGEfP yBJZj8Y4KKJm+Tw+BJ+4Qv8rp1EPU9GQGupBkdIV2nFChuIF3hdOeInHKtIG+/urSII/odEqY1EndVgq EbjvAIgVgwQQHyqw0h9PVVLri1ZSQ9uvwwDEhodtRwu63JTMaORqnLQqe+oBhBqU1l57w8gl4xd2iZlc JuF1MOP/ucJroPRw/ywfcuLT29hXDBwxydJnP2iFN4 m7XQyadv5KeSSVtIyipxeGfzEfeKTMhYP2sZhUobL2iOhdResZjMJOXWyuUmAPwA4WPeKYGFOcIZpLuR oDR3vIJB5OAfMcAN5KbGJWkaxMPNwDIUCtli/qxSZ8GHX+WRr10zINn0ZD7cYBrIshcRqEudfv0Psrj6 mlQh67SdSJgj4E0Bz1Jxi8xnckr0F3N/XkM7mbMTT8 woZODV09p1j0DHp/CvwDSLcAeAumDyJLEdyTT9HuW1rpEChUtLeQK1EIrdZgAWlXwECPcV8mcyuQ3GFx tdrG9iAc5gcJp1FAmANbESZHfVKu/vmvobg4SAMamHfIxIXlg47i7X9urdgHadfM7Ea2YvfATt4kT0FJ 8m+/njoW43lbXrnI1x4+laBtOGhnQdwnwy5urIXXdt +KN71Au8zmNt0K3iXN8QRrJL5dydu6uwKZlOp5Uu3E7R8mR/PLt38QwI5roVJy3OCeOS/Z5Vsi0FsrJ1 G3AZZij+62f4ckdfsUb0+u5zqPQIDXwjvbzuJqKBSFbNSRfqbRlMa2+HXTaxUuiI0y/g5HBnPaNI4k23 8Hhv4gf96wyNt55Wz8KcSD85lY9T6n01C0+qrUK4jd [file] Marlgr8GmRCWku9NXwWMg7oX28ToY+Q62GhhaN5E3yof4K+p0IogNr3CHb49VFNISyMi76ec92S4+test director [file] ICAgICAgICAgICAgICAgICAgICAgICAgICAgICAgICAgICAgICAgICAgICAgICAgICANCiAgICAgICAg ICAgICAgICAgICAgICAgICAgICAgICAgICAgICAgIC AgICAgICAgICAgICAgICAgICAgICAgICAgICAgICAgICAgICAgICAgICAgICAgICAgICAgICAgICAgIC ANCiAgICAgICAgICAgICAgICAgICAgICAgICAgICAgICAgICAgICAgICAgICAgICAgICAgICAgICAgIC AgICAgICAgICAgICAgICAgICAgICAgICAgICAgICAg ICAgICAgICAgICANCiAgICAgICAgICAgICAgICAgICAgICAgICAgICAgICAgICAgICAgICAgICAgICAg ICAgICAgICAgICAgICAgICAgICAgICAgICAgICAgICAgICAgICAgICAgICAgICAgICAgICANCiAgICAg ICAgICAgICAgICAgICAgICAgICAgICAgICAgICAgIC AgICAgICAgICAgICAgICAgICAgICAgICAgICAgICAgICAgICAgICAgICAgICAgICAgICAgICAgICAgIC AgICANCiAgICAgICAgICAgICAgICAgICAgICAgICAgICAgICAgICAgICAgICAgICAgICAgICAgICAgIC AgICAgICAgICAgICAgICAgICAgICAgICAgICAgICAg ICAgICAgICAgICAgICANCiAgICAgICAgICAgICAgICAgICAgICAgICAgICAgICAgICAgICAgICAgICAg ICAgICAgICAgICAgICAgICAgICAgICAgICAgICAgICAgICAgICAgICAgICAgICAgICAgICAgICANCiAg ICAgICAgICAgICAgICAgICAgICAgICAgICAgICAgIC AgICAgICAgICAgICAgICAgICAgICAgICAgICAgICAgICAgICAgICAgICAgICAgICAgICAgICAgICAgIC AgICAgICANCiAgICAgICAgICAgICAgICAgICAgICAgICAgICAgICAgICAgICAgICAgICAgICAgICAgIC AgICAgICAgICAgICAgICAgICAgICAgICAgICAgICAg ICAgICAgICAgICAgICAgICANCiAgICAgICAgICAgICAgICAgICAgICAgICAgICAgICAgICAgICAgICAg ICAgICAgICAgICAgICAgICAgICAgICAgICAgICAgICAgICAgICAgICAgICAgICAgICAgICAgICAgICAN Cjw/lHBhK7lhaGUcacA6L9rwIt0RWr3VJF0ra2TvXL OgRLuldgBuCxeSZxEzSOTrEueRWrn3EIdtQC4QkDTwV3QyK4QjUKbbEA7UMUPjXBQcsEJwQBOvLRMeLv Q8JEScKZqqTY7OzJFvXLttATEaVVSaPyWtBOMrAKCgXZAyDP8KBXIvT740qmNoRw1NCx1JVqYiLG5sgf 1RSkLeFNPlOifEWcd2MShmKS7UaYFnsBYiPnFaQDRE NvNoA9yut2ZbEuhnYJUQTGxdVB6Zy3UfbOOvVGp+Yl8PAU2rs4ZjDEltGxQtXF8dur2PPNmZGdRqD0Iv cMveRHExz8maRIPnWU7nmMDsAFN8LBpalQVuXHkyF7F1EXqxJ3FhFLBzRe3yXU4tHJUeFYSeFtF6JODG VA9XEDWhGCYfiSLtHBPzBNLTSI9DATtjVLT4Zgzbfm OjmPShUQcvKQ7ZMOChtfQnEnBgDIEIXDw+Tf9FYT9il9WsGLobMXCgQR2jnj6DTNvKFtYzX3J7tUMmJ3 I6IPrqGb0WVETsIECdRcMxUPOJSPogPD6JUX3chwA7HO4YiIUzCNTqMCOqvPHrCAs9N44gyAEdIUfyFP 0KICA+Yadira+Ke9VVPMfBOJhHLKhUlIwMZRUGpBuZ1Jq T5PGk8NgA2BpUG34fPqijhFeUEojFG7TTI9hQDDcBBGIDL0UrWPtfU0lvjJvDwAjCOFGHnBnN98qbKCk FFMoEZF0CNCgZi1OESNlA5JfftGuiPxhlcTyJHIyJNJVSW4LLTfuubCzwVHhwSpzBT64nCplBF6IMa3X HwKsSM1eby7HwWOqPg9DCRSoMJ7FIHEiWOYtIUGlRU N3WFKpNyLiMLucORPfQSXoALQ1VXLeVAYcIS2XBnLqMOHmZxEvJVEbBAOsULUnqd2LWYXeMEZxNvbqBv TkCHDdRGRcMBufBCLqSOExBSI2TUQxQRRiHT3VMuGwFBBcLMZfMCViZMKsBBXqnq2AGVFuKISlRjP0Sf ArUHKlCUXfISglJMIzUIH9LDy2CIKcNDCdNU7KRxCc SDFxCGAfUFYbQLAgLJDrxo5WPJFgTLGhTmRhDyVzMWYkSWTmTNriZFIrIQI9KDQjXVYpJTNzZQ7JMaLf QOUmBFy4CbMjHVDqWWIzog5AOLUvVTHqWAu0BmBtIQIeKXApIEsnOCMfZPD1INWfZKJmLPUjVG4XVwRi LNCyKGPgTtAvYGYgBDBkit2SGNKuFCZkPIErHiLyER QpBEMiLNviVMWkXTQnUQGdFGQgKFEiUV8HCxUwYIItXvC1WWgwCNWdNLAoza8FOWGdGKPwZsM9EZQyXH VgDIWeMBfhRPTzIIZzDif7UTTmAUEhJF7RLeJpIQDdLtX7ZIKiWWPiVHCroz2NAZJqKQYdCvo9CZYwXQ GoGKFzBAmzKTKgSCJ2IsY4RGMqGFGsYP0GVgUqRIJf RwW7GFCsVCXbGEDrwc4VWCJrTQEiLED3IBZiRWNoXGQsUUwyEAMuOPJ8GFe9UTGoFVWaFY4BBeOcKVHc KsL8IanbOSCsRMWhsn5WKOCeGWZyPaLlGIGfEBAvFOCkWMjkJBGgZRD4JJB8ROCiMEYyRT3EGiYuQHri IUNHBcb0TUecC6n4AUZvEZ5DW9Fpg8HmMfuqMQQQUG szUD5vuyQaDDKbAy7SB3cLTghuIQbtLNa8PnAqSMXhNRSsEfwaFWz4SWTuABD0NtbwOB8tONT3ChNkWW v7AKPuNCMeCPDqG8IsDUjhSFI7BShbZQSdFdEpOD9GFn7ADxF1PDM2uMHlSk7SGkceXEvZIwXrLY5GSC o= ID Date Data Source [id number] 07/13/2020 12:16:02 PM EST Name Value Range Interpretation Code Description Data Evelin rce(s) Supporting Document(s) Procedures [facility] MNYXKv8hWsFEYoAa07/XYSsvRFXsr5RkGNxeMOx8NXghJIJfN8ZqEAI4wK8sDZU9MHwIRvPyUgCiFuE9 lbm [file] AwMDAxMDkwNyAwMDAwMCBuDQowMDAwMDExMDkyIDAw AHLpAE3SXfEaUNXnUNA6SKIeGQBzFRWccp8QLLOyUNEzVpn8SYRzWTFjIGIeLOpuTINhAMWtDVN3HSBm JJGiIS7KCeSqZLAuEKOxZFewGDJlURUuci5RmVQejKkxra7NNRpJVt1KiMnsROC8ATxcVh5fpUMjKxMz QQRGVa9MbgOtSLVjEQIYTNynCFPgMDcjLxLxBhEpYc HnGCtbHRC9JlCoXmS4KFJdVNLnBjRuPvF7TJHlOjEeKWMyUgV0VGIeWFOiMEHyDhp2EEYvL9M6LZD+IF 0gDQo+Mh3Qd3NqixM8buTuFReaHzW8Rs8SBUKQD7YVLw== ID Date Data Source [id number] 07/13/2020 12:03:00 PM EST Name Value Range Interpretation Code Description Data Evelin rce(s) Supporting Document(s) Glucose, Fingerstick 234 mg/dl 70-110 Above high normal The above 1 analytes were performed by [facility] [id number] [place] [id number] [address] ID Date Data Source [id number] 07/13/2020 11:43:06 AM EST Name Value Range Interpretation Code Description Data Evelin rce(s) Supporting Document(s) Progress Notes [facility] VVMVAc5yRgRNYeNn15/DMXcvMJDgm5RyFUvxKUw4JPfkBCTyM6IbBFU5aE6vTVE3AZoBSqIqMaFpEjT5 lbm [file] 1CVrM6YQS5dZCwWc6XIGv1CZkXPiPjQB1XIZj= ID Date Data Source [id number] 07/13/2020 10:37:09 AM EST Name Value Range Interpretation Code Description Data Evelin rce(s) Supporting Document(s) Progress Notes [facility] VEQRUk9wOmLKQuVe55/CNOevKGAlu1NgNQgxVAw3EYmkBWVpX9GsYBC4uL2wTWV9OFlGFsXaLgVbPpQ5 lbm [file] r4FkanR4nxHmIHnfAyl5GH3EQAFCW1AWHl== ID Date Data Source [id number] 07/13/2020 09:27:18 AM EST Name Value Range Interpretation Code Description Data Evelin rce(s) Supporting Document(s) Progress Notes [facility] BDDMMn4mXmOXUsKi52/VUZuwCAZdc5EuWLjhFNs9YItkWGQkE1WqNCY8uM6zDZB7ZNnQZwVfNuUbFwD0 lbm [file] AgICAgICAgICAgICAgICAgICAgICAgICAgICAgICAg ICAgICAgICAgICAgICAgICANCiAgICAgICAgICAgICAgICAgICAgICAgICAgICAgICAgICAgICAgICAg ICAgICAgICAgICAgICAgICAgICAgICAgICAgICAgICAgICAgICAgICAgICAgICAgICAgICAgICAgICAN CiAgICAgICAgICAgICAgICAgICAgICAgICAgICAgIC AgICAgICAgICAgICAgICAgICAgICAgICAgICAgICAgICAgICAgICAgICAgICAgICAgICAgICAgICAgIC AgICAgICAgICANCiAgICAgICAgICAgICAgICAgICAgICAgICAgICAgICAgICAgICAgICAgICAgICAgIC AgICAgICAgICAgICAgICAgICAgICAgICAgICAgICAg ICAgICAgICAgICAgICAgICAgICANCiAgICAgICAgICAgICAgICAgICAgICAgICAgICAgICAgICAgICAg ICAgICAgICAgICAgICAgICAgICAgICAgICAgICAgICAgICAgICAgICAgICAgICAgICAgICAgICAgICAg ICANCiAgICAgICAgICAgICAgICAgICAgICAgICAgIC AgICAgICAgICAgICAgICAgICAgICAgICAgICAgICAgICAgICAgICAgICAgICAgICAgICAgICAgICAgIC AgICAgICAgICAgICANCiAgICAgICAgICAgICAgICAgICAgICAgICAgICAgICAgICAgICAgICAgICAgIC AgICAgICAgICAgICAgICAgICAgICAgICAgICAgICAg ICAgICAgICAgICAgICAgICAgICAgICANCiAgICAgICAgICAgICAgICAgICAgICAgICAgICAgICAgICAg ICAgICAgICAgICAgICAgICAgICAgICAgICAgICAgICAgICAgICAgICAgICAgICAgICAgICAgICAgICAg ICAgICANCiAgICAgICAgICAgICAgICAgICAgICAgIC AgICAgICAgICAgICAgICAgICAgICAgICAgICAgICAgICAgICAgICAgICAgICAgICAgICAgICAgICAgIC AgICAgICAgICAgICAgICANCiAgICAgICAgICAgICAgICAgICAgICAgICAgICAgICAgICAgICAgICAgIC AgICAgICAgICAgICAgICAgICAgICAgICAgICAgICAg ICAgICAgICAgICAgICAgICAgICAgICAgICANCjw/xIAlU1ocwVGfilT9V9auPt5ZSq6ZAA2ro8IpCMQb HTmxbyQeNagCUxUhJJZnGwhTQhu4JYbeJA5ZkMZdA5AcE2TjEZonHH3DWSWwPKEeqQJyDFPoJBMyZmU1 HEBdSWgeUA0RgSAhTTnyALAaJWLoFU5PHGHvA924mc QgRH5GEc1HYpTqOS0vrd0WHhCiBFOrHtgHYix8JOcjPM9AeWTjrHZgVhKrFPUMYdJwI5qgs3VuRmPvHU KFLUwoFO5If8EodNLcFBs+Ed7JIS3dc3DfBJcmVdZtPF0kad3HJCtBUrTbU0TpcVqzGIJnf8oaCOEqJS 2jvWJyAWL5ZEymh18gJHQilDMypElmGGFzAi0mOB1n SKSuKRO3IyY0GIHPJM9KMKNbJKUwkBBiCJVhSJMUJB3DAQrlLIH9KzbdpwQtuBVcADpsAE7TOKUzxcYm MjUgMCBSDQo+Cf7BWA9uz1PnQQsdXuOuTQ9xjz6AJBqOIeDlW5D4eIEvE3L6ENdgBy7HYQYsSPNyUaRd BZFKWWctDP6WLP5aiuQ5VZ7VrOUgBWOmOHXfpBSoPU d6Y64muAMyCAfpYG0LSVO+Yadira+Yl3PYTOnNACrGGRqZuDuLQIRWgEpA6HmT9XBm2HyN6IkVU43iMnxax JsTZyvUI5DQK1bNLSwWRZPVU7FrOVwcV6rvgQeXRThWWFNZxZlM35ymBWoOFDjZLI0CWCvVk0FEPZcH6 RpchLgfHoknaSuHHPsXTQVTR0TDIogsjJyiTJllHru XK54nGbsOW9RJj8OXfKbOT8ksa0OhMVbSc2KLPNjYD7FCTKaVYJyHGJuSWO0QOWiIuAoDIezADJfZGKw SUS2EFFyUBJgLW1AXzJyACVuRzD5NDHgDBJjSVRcqk2GNYMiLQRaEeK6KxEyYZWzSPZnWCedHXPcWXDm COM4HEGsLUQyLC2PAiGzJHNpPHS0MqNiEJYeTLTsad 8KAWQwKMGoSmX4DgHbBQZuPMTtUHwtAEUfIRAcHVE0AFTvRKUwGQ2LHxZeGMRuMKPwAtLpVKWzSZIfdi 7IVNGeHSFqKkOaGWRcEPRiCKRnEWpoJWGrADD6MJP4NFIsIHAbPM4LSgBdFDSrQAT5LoBgEEYwRAHipz 6PETIzVRBjEKe6SUIfYWPdJNMmXLymKXWjRXR2XJh6 OETbKNUtND7ILkSrWHPbQIo7MCUvWTClBGGagl0FXFSmDRDxLgcwMwUaFHMsOONmPKtfSPZlNTD8EIGm QXHaNWTrCZ2YPeDjJOZgBTtmIVafRYHiMBLwmd5YHJSiUJNlHLL2VOGnAORsPGRnWItkUEJtNSC7IxJn PUStXIQuKS1DPhBpYBAbPFf0ZkBbJKMnLWJayf3EPV EmXADwJNQ7HvBiXMBbRDIiRGipIIZlNUAvQUR7YFZbINNhJO7THaTqJNZtXiO3VtTiFOEmWURylp4FQK OxEVDzXBK0BfUyWXPjBPXwUWykZAOlROXuJMynREZuPKIpCH4DRdRmKUHuGsM2AxYmJVTtUZMool7THT ImEALaQbuzMHAjVUGbAEXpWIb9enZtrOGsZLi2OZ3T Y6PezmToFgqFGo3Oq136JQC8JZXeMy2VV9lfWk6mDMNqGGJNEn1MTRi0VhO3QlhhYJP9KVjmS8UqWSHg HIaaOeO6ZZPrSdkaLhI+GXhkLLAzJmS4OgqrSBVaUjA3RXR6FKZuGDLwOAIsBPJ4NP2tLXOACt2+DQpz pJDqmSotICXVPoQmVHE1YIzaVAHZKn3M ID Date Data Source [id number] 07/13/2020 08:57:00 AM EST Name Value Range Interpretation Code Description Data Evelin rce(s) Supporting Document(s) Glucose, Fingerstick 190 mg/dl 70-110 Above high normal The above 1 analytes were performed by [facility] [id number] [place] [address],[facility] [id number],[place] [address] ID Date Data Source [id number] 07/13/2020 06:45:00 AM EST Name Value Range Interpretation Code Description Data Evelin rce(s) Supporting Document(s) Blood Urea Nitrogen 10 mg/dl 7-18 Normal (applies to non-nume kamilah results) Creatinine 0.86 mg/dl 0.67-1.17 Normal (applies to non-numeric resul ts) N-Acetylcysteine (NAC) and Metamizole bradley ve the potential to falselydepress Creatinine results. Baseline values before medication adminstration are recommended. Patients undergoing treatment with phenindione will have falselydepressed results. Patients on phenindione therapy should be tested with an alternativeCREA method.Toxic levels of acetaminophen may lead to falsely depressed results forpatient samples. Glomerular Filtration Rate >90.00 mL/min/1.73m2 GFR Reference Ranges:Normal Function or Mild Renal Disease,if clinically at risk:>or= 60Moderately decreased:30 - 59Severely decreased:15 - 29Renal Failure:<15 Please note that the MDRD equation requires an additional adjustment forAfrican-Americans (multiply the GFR result by 1.210).Glomarular Filtration Rate (GFR) is estimated based on the MDRDequation, which assumes a steady state for creatinine (Klarissa Int Med 139/2 137-149, 2002), as recommended by the NationalKidney Disease Education Program in conjunction with the National Institutes of Health and the National KidneyFoundation. The [place] method used in calculating this result is traceable to IDMS standards. Glucose 199 mg/dl 70-110 Above high normal [facility] Sulfasalazine has the potential to false ly depress Glucose results. Sulfapyridine has the potential to falsely elevate Glucose results. Baseline values before medication administration are recommended. Calcium 9.2 mg/dl 8.5-10.1 Normal (applies to non-numeric resul ts) Sodium 137 mEq/L 136-145 Normal (applies to non-numeric resul ts) Potassium 3.9 mEq/L 3.5-5.1 Normal (applies to non-numeric resul ts) Chloride 104.0 mEq/L 98.0-107.0 Normal (applies to non-numeric resu lts) Carbon Dioxide 27.6 mMol/L 21.0-32.0 Normal (applies to non-numeric results) Anion Gap 9.3 7.0-15.0 Normal (applies to non-numeric resul ts) The above 10 analytes were performed by [facility] [address],[facility] [id number],[place] [id number] ID Date Data Source [id number] 07/13/2020 06:39:00 AM EST Name Value Range Interpretation Code Description Data Evelin rce(s) Supporting Document(s) WBC 5.44 x1000/ul 4.80-10.00 Normal (applies to non-numeric re sults) RBC 4.05 x1Mil/ul 4.70-6.[address] [facility] Hemoglobin 11.9 g/dl 14.0-18.0 Below low normal [facility] Hematocrit 35.8 % 42.0-52.0 Below low normal [facility] MCV 88.4 fL 80.0-94.0 Normal (applies to non-numeric resul ts) MCH 29.4 pg 27.0-31.0 Normal (applies to non-numeric resul ts) MCHC 33.2 g/dl 32.2-37.0 Normal (applies to non-numeric resul ts) RDW 14.9 % 11.5-14.5 Above high normal [facility] Platelet Count 172 x1000/ul 130-400 Normal (applies to non-numeric results) MPV 9.7 fL 9.4-12.4 Normal (applies to non-numeric resul ts) Neutrophils 67.3 % 40.0-74.0 Normal (applies to non-numeric resu lts) Lymphocytes 22.1 % 19.0-48.0 Normal (applies to non-numeric resu lts) Monocytes 7.0 % 3.4-9.0 Normal (applies to non-numeric resul ts) Eosinophils 2.8 % 0.0-7.0 Normal (applies to non-numeric resu lts) Basophils 0.4 % 0.0-2.0 Normal (applies to non-numeric resul ts) Immature Granulocytes 0.4 % 0.0-0.5 Normal (applies to non-nu meric results) Nucleated RBCs 0.00 % 0.00-0.20 Normal (applies to non-numeric r esults) Abs. Neutrophils 3.67 x1000/ul 1.92-8.31 Normal (applies to non-numeric results) Abs. Lymphocyte 1.20 x1000/ul 1.20-3.70 Normal (applies to non-n umeric results) Abs. Monocytes 0.38 x1000/ul 0.14-0.97 Normal (applies to non-nu meric results) Abs. Eosinophils 0.15 x1000/ul 0.00-0.76 Normal (applie s to non-numeric results) Abs. Basophils 0.02 x1000/ul 0.00-0.22 Normal (applies to non-n umeric results) Abs. Immature Gran. 0.02 x1000/ul 0.00-0.02 Normal (appl ies to non-numeric results) Abs. Nucleated RBCs 0.00 x1000/ul 0.00-0.02 Normal (appl ies to non-numeric results) The above 24 analytes were performed by [facility] [id number] [place] [address],[facility]#: [id number],[place] [address] ID Date Data Source [id number] 07/12/2020 10:11:35 PM EST Name Value Range Interpretation Code Description Data Evelin rce(s) Supporting Document(s) Consults IFXWDt1yCeKGXjYf54/ZOAndCKYdu4WfAWbpFBo2XKxyXDRnM7TzWEP5tU7tXQF7UNoBGcCbIlNrTpU0 lbm UgHllELaLbXGYhMcmULkZsUVzzXnxigZEpTZ9QeDO0RGAcR72yIPBkDCNuV2ZmEXH0Rjd+Lu1OXRFygX LxNK8YKcvW3Z3VtxxTNM9DMb0VFGsyk9n0SKXlemRQJmaIXiszZmTzBVNrpTUFAMER4S+pVRoFQA1Rxj zeHfCwaT+Cedq41qXC35K6NWxe//uCRQPkHUIw0o/V s8wMzTPs8+c/mI28IXgplxgZPitHszHL5mzH2x797B7fyMwfYRZ/1fxaoUHtGG4AE8BEEMSFen04LC7U 6y5GX8QaMP9wcx2Gqfjmh55NzdIPKNrj0CQDYXN/KRZFABtZ0dElU6+neelima/+VLJnxesgqhD2DIx1jruvs pyHp2cgIypssGvhJqzW0elPKT93pkutLtihtSjwa+1 ziO5Lj/ilhY1yOlpIndWPnrTeswrIXhSQusEHthO0HgSdt6thWFnT/b+uuzeIATWVfGFYuq+szkb5Xuj pBpslXUvjnpW88KhWbUpLxP6AcRfwpIHX+nUUwGjnlcToKar3VLhqfmnvEG+James/Ek4xYC4JdmOyWXtnO [file] AgICAgICAgICAgICAgICAgICAgICAgICAgICAgICAg KSMxKYEdXLHlFDIjKGVuXKYcPJMpYXMxLGBrZRJxZBGlHT6VUORyWKXsECAsPPUcMARnBKIhZKKsXDUf ICAgICAgICAgICAgICAgICAgICAgICAgICAgICAgICAgICAgICAgICAgICAgICAgICAgICAgICAgICAg USTeUTJlBIFoYFSpDFHjUZ7FBERhPCBtYLFfRSBxDL AgICAgICAgICAgICAgICAgICAgICAgICAgICAgICAgICAgICAgICAgICAgICAgICAgICAgICAgICAgIC QtPITzJPJdYQQnPLNaXFVnTYYfCIAdLUPhEK5VCYEtGBAjGLTnNOTbYKXlFJCiRMMwSRMfQZObSYLfYV AgICAgICAgICAgICAgICAgICAgICAgICAgICAgICAg OIEnSKFgWAIxPJHlRIJhRTMaNNRgZCVmFYKmWGFcLRLdYRKmUO7WAAJdQWHiVCCbPQPvQVMqIFDwNZUy ICAgICAgICAgICAgICAgICAgICAgICAgICAgICAgICAgICAgICAgICAgICAgICAgICAgICAgICAgICAg YBNkIQMlOVHxFUWzGTBqTCHvQJ2QQHAnTRIsPGEiEL AgICAgICAgICAgICAgICAgICAgICAgICAgICAgICAgICAgICAgICAgICAgICAgICAgICAgICAgICAgIC UvICGkKQGhUYXsLNKgLPOuYEFcWNJkRUVvLZVjLF3JKNMmCPEmVVLlNKYnJANyFSQmWUAlZFFsFSLsZN AgICAgICAgICAgICAgICAgICAgICAgICAgICAgICAg GZDgBFNjKZOtYGIjFVEaQZVoMOIzZHFpCGSeJEWnPPBaVWCxYDAhMR4JSUHxUHHcTNCdSJFhIJWeEPQe ICAgICAgICAgICAgICAgICAgICAgICAgICAgICAgICAgICAgICAgICAgICAgICAgICAgICAgICAgICAg QKBsQIQwXOIdTZFmOCXtCQJyPDKnME2DVVTeYDKhJO AgICAgICAgICAgICAgICAgICAgICAgICAgICAgICAgICAgICAgICAgICAgICAgICAgICAgICAgICAgIC MfKCYdHQCpIHIuDHJmIQWkNZCxSGCiLNBmGNTtCTHvQY8YXGUiXTNyTKByQUHsTTKnUTNlNAVgGSVcCB AgICAgICAgICAgICAgICAgICAgICAgICAgICAgICAg FTOzJTFdXSWsKUYoTYArKJMrQUNvMZTpIEMnEXSiOMMwPHCfUDNiITPrQM6IRW69sRBla7O7WOQtZX2t dyc/Wp4EXYsmgmCxiSLiET2XXiIfKC4pgv6DVdDaAI3bjy4LQVrFYnOzS2C6uHXjUFHoDPZLPkYmZ11d VAcbLi43BKboFDWrRhNlSGr6Sc9MXhIsX3faNUGkCt V0XNQeKiL3ILUpQeL3AUNqVaVzFDKkOEAfJDUvXLEMWY2BKsCtV4FenV01JBQGIk2+DQplbmRvYmoNCj L4SSJrf4AcAIe9QH2WUHBxCkoms5QaBHZgULVXVIuuQM0SEKY6EQFvBYEiKn9UOUSaO306bxWuZZ7VAj 3YQtVyNI5pzo9SVHOiJXDjAomHHgi2KKlmEK7IlMDw WCqJl22crXk0clTdmJTMSFMizCSceSTZCX8xu1DtggR4UVjyVMFrMKOuJp3wIj7mSBWqWUIiLuK7DLJH YJ1SUVPwCUHqlLZrUMJbJHXWJU8YXXkfZUA6XfqojwXbrDKzGSjvFN0BHAUbosYlDgwkTJKSTWs+Pg0K ZK3jy9CuEQv2HQVbAV5ldb3BCVtIEeQgG6I8pAHrR6 C0UQhjPj9PJCHgLXYcQuvsQBZIFUbfXV4WLS3ukvY5AQ5SxTHuUJSkZIZtlUXiOAk1Z20ecVMwNZphJH 0KICA+Yadira+Ug8RNIZrMMOmGOLbPwLiQAKOQoJgS4QrB0NJv4CrG8BhCU76nBzqwkCfVHvvQP6OIC3vDA WyMUGPPM2XpQLbzB5anuDjQEAiYCUPKdUjM54unGPx RTRlIDF1DOHvFb0STJQeR1AzpxAtmJtzalMaCHRbAAEEFQ4ZFJtfbuKazZGygRhuKS59pDzgPY0QHu0W OmVmWQ9shp2NqCIsDb2YQME0Px5WIPPgQCXnAGToBPM7IXDnAcJrJOjcOYTaIIJfBVB7OHVmBELiZO5H AcAgSRSnKCU2WiPiEGPaJJXgea4NEHVpRLN5BwFgTn UgIWBiDQLoMGnhOZIzQXNcIOG9OCJkZAQpTC8DTsDhHSNiCEGvAECcTCJhHALdot9QYRVeLAGgLUVgRU MwDGJpQATtSGtkBDOpDFW9ANJ6YDJsMDXkBF2JAwBhOTLrFLc5XMFwWFJoTNKkvp1RCVTePQMjIBQ9EL NaLLGqZGYsSRyoGSQzWAOmPlp9VYBxITJfZR0PDxRz UZGxLTN0XlfaEMLcLYXqis5LALHhYJGpCAv0VWWcFPIiDKFwPEnrYCMaSKH5MuY7PPHmSFAgWL5BDkBe WJPqMDW9XZNpIDOqAGYvat7JWXDrBVZhJfm2ZiGsVSXmVOSsYJkpRQUfBQT3MHa2VQPpPRNsYM2ZRxAl FHZwXZhhLiAuQWGiODCtrl9LXVJyNNGsOHRnBwEdHJ GdJHRuDUigCNOgNXF6BUToPHYjGUFuEW7ZIfKtWUFkTQr6FNZsHMCgHZXwhj2EPFQoNQNzPBZ8FxNxSQ QsVEPjUMqiULHaTVVmFpn7WKRyFAWnXM4EYmKtVYPiMpM9QxQhRMJgRYFwyg3NDTEeQMNeHGngWeLiVW DvITEgWAmeQFFgEJKwVDA0KKRwSZHzBB3SEkEiMNYi UwAnMhzaEBJtTDOagz5FSFIjXHFqHjE4DpDsSCQpGHQcTVuxITXcOGChNCc5FGKsCJRpIP4IAtVzGQOy MeI9CnOwAFOnWICetv3FCMWhTCS2NjD6PBSkLCPvCSCeAJshHIUqZUX4OVW2SKUlEWMwTR9YWjVbATAy YLulJAEtNMTqQUTkuw7TXPCmFHM3PPwsXfGhMBPaMR WfIMzjENMoHQC2GQq0JYRgLAXrRF6PYzShEZUfTXOoGvTcWFKlVTKmvd1VVHDlTDE9NLYbGEXhVJOsKO YpQEtwWPBpEXVlAjs9IPUpKSPzXY6OJlAqLCZzDLP1AuCzJPSuJBCwjg5JWWUmITW6LkOdPtTxLQDgJY XxCFvrQVBhEHJcAqd4ROBdDGPeGQ2QGhLnFMSeUHO2 RHuiVXUcOUOgkf0CsULxqUteza2AHYpMPx8ZdVlwBRChFOmiNe1drHF0SJVnYVPWUp5AnoBkVDKaXIMO BUjqLIBpHJgaORM2HaemSWGjLHJqKXZ2Zfl0IzNmDHlnCLStIWH4RwX3FZQlCTZjY5M0AlI1BXW9ALj6 YfYqIUShHEX6JYPcJOc+MT6lSYj+Sk2Sp5WbycK8doJlSQb5Paw7AT1MGJYRV8JLNh== ID Date Data Source [id number] 07/12/2020 09:36:00 PM [facility] Name Value Range Interpretation Code Description Data Evelin rce(s) Supporting Document(s) Glucose, Fingerstick 176 mg/dl 70-110 Above high normal The above 1 analytes were performed by [facility] [id number] [place] [address], ,[place] [address] ID Date Data Source [id number] 07/12/2020 08:49:36 PM [facility] TTE Report:Indication: syncope, reported hx of HCMStudy quality: Technically difficultSevere concentric LVH: IVS: 1.6 cm, IL: 1.5 cm.LVEF approx 80%, global LV wall motion is hyperkineticThere is a mild dynamic resting LVOT gradient of approx 30 mm Hg.LV is non-dilatedAortic root is non-dilated: 3.4 cmProbably mild LA dilationNo RA dilationRV size and function are WNLPR: noneTR: none : noneAI: noneMR: Trace. There appears to be chordal GÓMEZ but no leaflet GÓEMZ.RA pressure: unable to assessPericardial effusion: noneConclusion:Severe concentric LVHLVEF approx 80%, global LV wall motion is hyperkineticThere is a mild dynamic resting LVOT gradient of approx 30 mm Hg.Probably mild LA dilationRV size and function are normalTrace MR. There appears to be chordal GÓMEZ but no leaflet GÓMEZ.Findings are consistent with HOCM with mild resting LVOT HALLIE Mcdermott Name Value Range Interpretation Code Description Data Evelin rce(s) Supporting Document(s) ID Date Data Source [id number] 07/12/2020 05:38:44 PM EST Name Value Range Interpretation Code Description Data Evelin rce(s) Supporting Document(s) Medical Student GNOGDn2iDpGHDzUf75/YFXhlXRElt3PsGZrfTYo0USasIECyS8YdKGU0cM2rZWD4GPjRArUyHlQdZfR3 lbm [file] ICAgICAgICAgICAgICAgICAgICAgICAgICAgICAgICAgICAgICAgICAgICAgICAgICAgICAgICAgICAg ICAgICAgICAgICANCiAgICAgICAgICAgICAgICAgIC AgICAgICAgICAgICAgICAgICAgICAgICAgICAgICAgICAgICAgICAgICAgICAgICAgICAgICAgICAgIC AgICAgICAgICAgICAgICAgICAgICANCiAgICAgICAgICAgICAgICAgICAgICAgICAgICAgICAgICAgIC AgICAgICAgICAgICAgICAgICAgICAgICAgICAgICAg ICAgICAgICAgICAgICAgICAgICAgICAgICAgICAgICANCiAgICAgICAgICAgICAgICAgICAgICAgICAg ICAgICAgICAgICAgICAgICAgICAgICAgICAgICAgICAgICAgICAgICAgICAgICAgICAgICAgICAgICAg ICAgICAgICAgICAgICANCiAgICAgICAgICAgICAgIC AgICAgICAgICAgICAgICAgICAgICAgICAgICAgICAgICAgICAgICAgICAgICAgICAgICAgICAgICAgIC AgICAgICAgICAgICAgICAgICAgICAgICANCiAgICAgICAgICAgICAgICAgICAgICAgICAgICAgICAgIC AgICAgICAgICAgICAgICAgICAgICAgICAgICAgICAg ICAgICAgICAgICAgICAgICAgICAgICAgICAgICAgICAgICANCiAgICAgICAgICAgICAgICAgICAgICAg ICAgICAgICAgICAgICAgICAgICAgICAgICAgICAgICAgICAgICAgICAgICAgICAgICAgICAgICAgICAg ICAgICAgICAgICAgICAgICANCiAgICAgICAgICAgIC AgICAgICAgICAgICAgICAgICAgICAgICAgICAgICAgICAgICAgICAgICAgICAgICAgICAgICAgICAgIC AgICAgICAgICAgICAgICAgICAgICAgICAgICANCiAgICAgICAgICAgICAgICAgICAgICAgICAgICAgIC AgICAgICAgICAgICAgICAgICAgICAgICAgICAgICAg ICAgICAgICAgICAgICAgICAgICAgICAgICAgICAgICAgICAgICANCiAgICAgICAgICAgICAgICAgICAg ICAgICAgICAgICAgICAgICAgICAgICAgICAgICAgICAgICAgICAgICAgICAgICAgICAgICAgICAgICAg ICAgICAgICAgICAgICAgICAgICANCjw/cCOoE1zkdJ FgurA2I1wgJm3SAm2RAT2uk5UgQRDhVXssnxWnUqfQQhDlBPNtLeaCOab6KZqxKA6BuTHrC2HjW8RvBQ vrJO1OUWQqBJQszUWbSBBtCPGiIyV3RYNbGErmCY9YbBPpSKbtRYLuMFEtWwVcWGWlLDZeEBEgRBSsWY KKJBVsYCBbKjTmSKjdFX4Uq8CpbML6HXd+Mv6MYQ0p l7FsUHpnYQCwSK7xmg4ERBeRScQmQ6XjjaN9ONCcLAUqFt6XIETyCXFutZE4CLMpZKUHXvNpN0FslO96 IDENCj4+DOgqzqRpAnpGOzEjFONwn2WgKDw6GS5MKJFaOPp7dGSvFSPdoFAijPAQtICsKJ16ZFT8GXQ3 nxTmvALUBMflrc4wdCaegsNwhEUnYeM4KwGzLwLvTZ M2UnErOT8gUKcbNA6MHAU3MZjoNJEuJNMxA7iQPkNuTLotEBEfpEruQN8VHgAoM0CxsoDquWQsYZKpHO INCj4+CBjtfdRaBqkNPgNuYRPnl6IyAJd7FC9DRVAbCBrkIY6KOWKqlH8mEEohFG3OMtCuOfQkRRXRKy CwY92qaCWzFRb4Q3ClPpYjNNObZsumLPRkPUcqAqLo ZXMgWyBdDQogID4+ID4+JTjmNP2TKSmtlrBrUFKuVf9ODSQpDFGoGO5uNAYrZCTiQ8G9xQsjZSMHIrTv D6ylgnkfYH7sZEXrA302pPxncgIhKSN1UOWyQv0OZRFwHMN7REYsbKYzHvfcATMIUKwkML2MiRTuHZI2 kQ6uHApcSXZbSTXyB6aAPbVzaOerIZ99bRoxgaHkqP BdDQo+Mg2VPK5ox6FgUFk3unZlVRksCHKoSIlqZVCuFYNpEXTeAFY9WBB2VGAXRlTgIOIdLIAzHFpoVN NvHGTkqn5AXDLsCIEiVGNdVjXuHXLgQHWuRFskAEHyPZPqIQocBXNmKCVyZQ7HOdSwCUMuIODxHQreTC NoAPMyop2EJPEsRTKoNbB0CgPrQBQkDVYiWMwdNUYt EGTpOVYcEYHvAZHrZG0HAiNdWEQwGBJnVyMbMQXvFBTxwy7RKXFnFTEsAzV9DIPmXKJyLHQyVMfuGOZk SFE9ARQ2IVPbSQDyIW2KTmEiLMYaOJooYvNzGIJwQFXzeq6CYMXpZEXcZusqVHIuOSXzOPIpHWyiIJEj LTViZNJuQQOzXCOkTP2TCfVoFXFlBDLhKKOmEGSzNK Hlwl6LFMAgAIWqEBAsYHXaPPQrLEMyAWspRQOgOOJ8HzO2UEXsTIJoMU4YDaSzHTHaLJX2ZmSzOWPsAR Vgeb5LIJUqDLCfUvs6OFTfNFTnEZXeEGweDNFxQQV4DnP5PSItJXDbZN2KYjMwPWFiVAw6ZDBdNTGrAY Klyb4KLNTaHPErZHG3VXNmKPKpBZSbPLlcCTWsRGZ0 LBS1PJFkPSHhSA5EClFzPDUgBCkkPUcpTLYgYDRkhi6XUSMoBWUlARA4EhQsLBEcPQDxHLwcPFRlKDKy HLCrJQAhYVEwLC7HEiMkFPWeQhU1KQKlEAOxJGWbph0IAHPbONFvABp9SlFlLWUdONTxBWqaPRAsLKDv XbR5VKBzUZFbLK4MUaLsAMYoSdN2PIZeQEDdOTXazh 0CVSOyUXKoXwP4AzCzTJOuHWUnQBffGOItVERrAGFuMKSkEGLpQE0KQxHfUCCxSmXuCJFqZRQaWUTfjw 8RETWkIUFlBkPaJkJnNILoSVXuCJpaLEBfYQA7AtI5RITdLHNjQO7YTbKwOOJuMti5DESkNWHiHQYkky 8QGPVfBYGrIJu9MZErWIEyUURzSErkJSFtJGO7VGA2 ZNCsTITxCI7KQzPjDEMaNtjyVJJsDITnBLPpdf6BWKTcFFVzQZv3YNJjTMJyWCGhDWqmRIMpWRHvGtG9 WVWuDKWsMN4FCdKaFHUdLpOpABUfXVHkOQJbem2MLCPsVQRiKLPaGEFdSFHdZFMtUUe9jrLbnKKgURi4 TO4VL1RntzXhNQDVMx0Hm611NCZgWKVkQg3KR4fsIa 3oZFPpVVTOBk3GUXj8JWY2C0Q8DiG0Q9K6VcLwMRZjZtP4TbMwBUDwUGV7GnG+YPz4NczlUNy8CUz0AT sxHFU5Y9N4ONPyLFMsSIG4UVKxBS9nBINQUx4+MLvnxFAzsZloEYGVApUeQgd3OEzvMOKVXa6P ID Date Data Source [id number] 07/12/2020 05:17:00 PM [facility] Name Value Range Interpretation Code Description Data Evelin rce(s) Supporting Document(s) Glucose, Fingerstick 215 mg/dl 70-110 Above high normal The above 1 analytes were performed by [facility] [id number] [place] [address],[facility] [id number],[place] [address] ID Date Data Source [id number] 07/12/2020 05:09:12 PM [facility] Patient: JAGJIT IBARRA : 1960 MR N: [id number] [facility] CAROTID DOPPLER BILATERAL Provider: MICHELLE CABRERALINICAL HISTORY: Hypertension, diabetes, tobacco use, syncope TECHNIQUE: High resolution bilateral carotid arterial duplex examination wasperformed. Tavarez scale, color doppler and doppler spectral waveform analysis ofthe carotid and vertebral arteries were performed. FINDINGS:Right Carotid: There is heterogeneous atherosclerotic plaque at the right carotid bifurcation.Peak systolic velocity in the right ICA: 169 cm/sPeak systolic velocity in the CCA: 125 cm/s Right ICA/CCA ratio: 1.3Left Carotid: There is heterogeneous atherosclerotic plaque at the left carotid bifurcation.Peak systolic velocity in the left ICA: 137 cm/sPeak systolic velocity in the left CCA: 118 cm/sLeft ICA/CCA ratio: 1.2Vertebral: There is antegrade flow in both vertebral arteries.IMPRESSION: 50-69 percent stenosis of the right internal carotid artery.50-69 percent stenosis of the left internal carotid artery.Moderate plaque volume of the right and left internal carotid arteries.*Degree of stenosis estimated by validated velocity measurements withangiographic measurements, velocity criteria are extrapolated from diameter dataas defined by the Society of Radiologists in Ultrasound Consensus ConferenceRadiology 2003; 229;340-346.Electronically Signed by Trixie Valenzuela MD 07/12/2020 5:09 PM Name Value Range Interpretation Code Description Data Evelin rce(s) Supporting Document(s) ID Date Data Source [id number] 07/12/2020 04:35:07 PM [facility] Name Value Range Interpretation Code Description Data Evelin rce(s) Supporting Document(s) Consults UQEACi8oTwWRRlVp37/NUZqkPKUfw7XlRJiuDQb2CAbjZAOvC2TgMUN8qF6iFUQ5EZlOQsQfGyBhBzE2 lbm YcOvnFZjVcOAXoIzwLPrIgQDygVtshjJMgKJ7DwQU2BIXyX96iZDPlNZBsM8AiIZR9Taw+Ge8YTIMliW ChRI2PGxoI2C2ktsa4Ff3dbl4WUSZLgudZxuq6eykTA6tkcAH72JeVenYMGbPFjR2jVvm5wI00r5tXGH 0EH0+ELC1BccUnuKAOE/pQKbZ0ioypr1JvFRJEfvE/ E70NkHDalmpx/0LTveJ3S9k7BbmWN0ssrFjxq/zZGS59tV9EZTiBk+DiiymVu7PQkGC6VYSYunULz7g5 8ybk/GVsu/ltGfkB+L6YEVzQzCja0zu8LJhwKkZ1igHCk0e4T1Nosl/IYV3q2fLn92wyh6VrzyTkwkG2 10lfwgzywzwWWsQ8tEefUs+dZqjn3UvLr834c4s74o iOPZVNQH++dYglj0EGwuWOdVTQQB96x+f1kccO8ZLOxcVuHrHNQPWhVzeTiJSqfLMupqNJk8Jvpo2FIk fDAxFScXPbAewM8MJ0lZeJDyYYcL13l+Q2PR8f+sxI1TmXQL2NTnwvsNMniPY5UvXLsB+1gsZxXluBuE mbPiQ6i4sI8JyuQTtPAfUpe8zzB7VgfyyJ+P3Ro3jv gXnxaLOLS/OyXAE/wJujqmRip4G/GyuCXf4ghszptvpHRQIGlJR+4lBe72SA7mu/Lw0Lu4umC/v3X8zR 279Gz9MzsmLaez7/bWFMKRDCeKdE41Dm1/Z11TB1HrVr7cEGL+VRoOqP4bizHR4aG1vLCchP4Gy8N1rR 28WK3aYy75KS8+587x75qpgTc9kH95LRhhWyWn3wod G6+JfspdHG+mkjISc70TSguKgqMsjQmxhU1+8Vt7Vw9HHnNmobm6LJyP+O45sEjusw2oY5q/yMebuyLG +/7slEI9eE8DA0UDrSajrg7OCCjSl4I5hEcVgcmHz1VLcd4FwBXzv7iP5jUCVhaYX0g04w1xTNCHoBb0 Nithin+oCp1vzRqvRNJeFtVh+NJM3UjIFiWRmnUcU47xhW [file] ICAgICAgICAgICAgICAgICAgICAgICAgICAgICAgICAgICAgICAgICAgICAgICAgICAgICAgICAgICAg ICAgICAgICAgICAgICAgICAgICAgICAgICAgICANCi AgICAgICAgICAgICAgICAgICAgICAgICAgICAgICAgICAgICAgICAgICAgICAgICAgICAgICAgICAgIC AgICAgICAgICAgICAgICAgICAgICAgICAgICAgICAgICAgICAgICANCiAgICAgICAgICAgICAgICAgIC AgICAgICAgICAgICAgICAgICAgICAgICAgICAgICAg ICAgICAgICAgICAgICAgICAgICAgICAgICAgICAgICAgICAgICAgICAgICAgICAgICANCiAgICAgICAg ICAgICAgICAgICAgICAgICAgICAgICAgICAgICAgICAgICAgICAgICAgICAgICAgICAgICAgICAgICAg ICAgICAgICAgICAgICAgICAgICAgICAgICAgICAgIC ANCiAgICAgICAgICAgICAgICAgICAgICAgICAgICAgICAgICAgICAgICAgICAgICAgICAgICAgICAgIC AgICAgICAgICAgICAgICAgICAgICAgICAgICAgICAgICAgICAgICAgICANCiAgICAgICAgICAgICAgIC AgICAgICAgICAgICAgICAgICAgICAgICAgICAgICAg ICAgICAgICAgICAgICAgICAgICAgICAgICAgICAgICAgICAgICAgICAgICAgICAgICAgICANCiAgICAg ICAgICAgICAgICAgICAgICAgICAgICAgICAgICAgICAgICAgICAgICAgICAgICAgICAgICAgICAgICAg ICAgICAgICAgICAgICAgICAgICAgICAgICAgICAgIC AgICANCiAgICAgICAgICAgICAgICAgICAgICAgICAgICAgICAgICAgICAgICAgICAgICAgICAgICAgIC AgICAgICAgICAgICAgICAgICAgICAgICAgICAgICAgICAgICAgICAgICAgICANCiAgICAgICAgICAgIC AgICAgICAgICAgICAgICAgICAgICAgICAgICAgICAg ICAgICAgICAgICAgICAgICAgICAgICAgICAgICAgICAgICAgICAgICAgICAgICAgICAgICAgICANCiAg ICAgICAgICAgICAgICAgICAgICAgICAgICAgICAgICAgICAgICAgICAgICAgICAgICAgICAgICAgICAg ICAgICAgICAgICAgICAgICAgICAgICAgICAgICAgIC AgICAgICANCjw/gUNoP6iusNUthcT2M4aeTx2XJk3OYG5it7IsPYUkCGkucpMaZxxKKoJoAJGyUrbMEl m0CNovLS6XnIWsB0VwU0YdOCvuLX0YFDJcKHSnoLHcXBAgCDSkKdE7HQLhBOetSP5TcATdVOojPZNiCJ IgNyAwIFIgOSAwIFIgMTEgMCBSIDEzIDAgUiBdDQog ZP0Qr9KenHG1NLq+Mx1UGN0xo4GoDPenLIRsFL0xab2PYJjPDaIlW4UdecF0XJSiHXFzPs9RVGYhIJGw uSW8ZUMnQOFOJkKkM3ZaxC18YQMIXl1+FGywhgNsVurULkPwAREju1ShLSm6IH0LDWAmSMj5uCNbS70u h9CvaMVsNqblLEosmxHZBZVpv82jGUqfKXOaEUXrLb 3oAi8kINUrYFEjFcIrZUCGKY0OWHIdRDGodPPyWQQkDESLXB5MUKgiYNW5XqbdjtFicFHcETgkKK5AHA JlbnQgMzkgMCBSDQo+Zl4FZO4sx5DlSWd8DMKgUG9jvs6TUCgEWkSaC1A0zVPaT5H3JDokRa5FNPWpGI UjAmwcQVBLIHlbTC2NTS1esgJ2GY8PkPUkBUVvWAJp tLRaMZn5G22beKGgLFqtDO3QVOF+Yadira+Fr3UHLEsXGIkKGCpIyCvJGPUViVsS0WqW5VDf2FqU4GsWX80 oLhesgLhUBajVR9KEJ9lHNMfXHJNMN3AyLLawO2carTmMKOkYXMCFgPtG92chWFvXIXgXYG5XAXqCv5P WREiW2QcfrVuhEnoauKjTZNcTANXGY4PVBcqkbNmoH NpxMmkTG30eIgnJY6NKo8UBjKfBE3buo2VuNWiZh2NZXY2Vh8CBXPyWKGtCWNkQOJ8OFDvXaLbPBlwYT FhKKErUXO0NYNtPGAuMB1HIqXeLWQxVbV9BPflTKCcQUWznj2PRKEsPZCyKSA4JMJyETJrGROxPXlfIJ CoMPFcLJY8HGZgROAqAO7BYoUeZKZyLFJyUGPbLKCs WXZhxw5RPURfHDQiDWFyTWWaJHEuGLDiEShxDRCxDLE0PaQ5JLFrQTCcAC5RFhLiJZExTCa5UjHlEVEi HPRizm1ZEKLdZQJdSUVqLPEiKXVkLVSrFJecFEPqJBPmDeN1WOXpHWAjIE2XOeEqODOvSPL5UMdoKLLh ODYkmz7PPYLpPSEiOZW6QxQoOCTlFXVgKTdrPSQgNT L0APX3PJJzZRMpTL3OWkGfXBVeMCLaOaSrSXLpZYQxkd8OBGQzVEEgVdUmOwIgXOHdSNBqRLljQYKsKK H6WAE1ORLpSWFeCH3KWkCbPMBzZKF9FyEjAKEuLNHdnu9NJTPjTQPaOeE8XxNwKGLxEWXqTZqiCBLhAJ B0RFbjUEBkPODxJI1BFcZwEIZzFAmqCfRzPKQfIIDd cm4KLZDyQUCnNADiTqInEUFiFFUiFSccNBLtHXVfReO6LCIjUUAeMP2NAiSoWJQeFuJ6EgdeNJBnNZTo ox2GAKBfKAQtRMZ5ThFaPOUrVQNmKHjyJRTvCITqSqCjVGCiXZFyMR6GGuHhFWAkUgQgGkTrTQQnKXEg ru0INXWlRYAoJqU8QkZuAXNdPIFvSEuwIKLyHIQbNg U7GAPrVXZzFL6NJqQkQTLdJlO5TplhRZGyRLMkss0PYXFiVIKeHsc8OhCtZTHzNZZhKEtaXPKzNEExPA V9TEGvWBQwUB6UPqSvCNFcGqM4QdlqPQVmUAAxbh8DOEOjHKXrKUN9RjUjRVLvMJNlRFucFXHkVUG3Bl MyNHEeSOLnLO7KWxDtAINuKsXlQYLdACYiGDAeqm9D IMAhCOZfUfO0SJTrFIXbTZXnVAbjDOYxGLW7ZSg1WSMhAZWlQO8PRsZaXRXiOevxRCTdIVDiDCDszf7E VBQmPYVoRXZjTGHbJGPlUEFuCVkoYVDfBLR1RVc6TJPhRIMrQZ9GRxCsMPGeUau1CIvtFKCfEGQljt6J tOOwtVcilc9ZVFfVJy8XmYdpTGIkAUjpTh8fdQM2JN QdYYHLRu2DysXyIAKuFYWAQAaeXVCsMQG6KpE7UERnUcN3SQXvAfNbN4ElAAEvUJJxJrC4KEPrIaI7Uk cjUDk2RMMcFKBxQWL6UzL5BYX1NMDbSCD2JHocHvT+YW8xDUs+Ow7Ty4QcbbZ1kuLsVGxaGSd2LN7JLA QGD3TRJc== ID Date Data Source [id number] 07/12/2020 02:55:47 PM EST Name Value Range Interpretation Code Description Data Evelin rce(s) Supporting Document(s) Progress Notes [facility] DEDSUt2cAnJFMeCv75/IJOzcRXXiz3UtRLxiGFp2PKnvZSGiU8EqRPW5kM9rRMY3IFtQQcNcIkDoQaI3 lbm [file] UaLWI9XqXaHEF5SdCtVO4RQf8EVeA2ULP3yXLdPf8XExV2OYvKMpVtXH4ZRMf= ID Date Data Source [id number] 07/12/2020 02:39:49 PM EST Name Value Range Interpretation Code Description Data Evelin rce(s) Supporting Document(s) Consults KSLPFv3aRfCKLmTr17/WGGfzAVSzv1PrDAwqOMf1AIgwDKHpV6PjXAS2tV9bFHM4KQzVNgUeFxUkBrP4 lbm LyOlgRGePzRCWmOonAAfZkKIxsSotmsLZmQQ2JnLQ0NSKhM22hKTGpCZRdB4KqPIC1Uht+Er4JNPBqrQ IlBR6KEqkA8U9HrzAJXcCtE3Q/zI98QtGfh/lObAcAayWMwZGAh5XSaUFDlnRME87H5+dKHdtzJ4T0ks EUuhG50nUxFXRFpHPqxtw9qi8ja4qQNGJNpzD/n/9Z VN69/eD++ax34Sc8a221/0HuvDMxaMNXX8u+M4m/AGXPAJLJ2C/mA6ynlahl+AhSiomri5bAmfbZvKJx O78wnn8f45cHASD/K4n9ijP2ZQp0yfdaZ3YLwjzTdycO6Jggul0m/OiO/+8cOV8YcTsi5J7r2+ZMNud1 O94m9dR8ptkjUwbsZloneeI76qqbz+O8b9Jrbsl2Uq [file] ID Date Data Source [id number] 07/12/2020 02:12:33 PM EST Name Value Range Interpretation Code Description Data Evelin rce(s) Supporting Document(s) Consults DHXDOs1gCqABIzHy25/QNIdbBGZky7UhXQvoRBe8SMazMXBxC1KnJAC4eB1dBCM5GWpVUbXwHgEwWcQ6 lbm [file] Wj3Mw6AvtmQ6ffNaTNlyHyN9Zl9SYADPH7TJOn== ID Date Data Source [id number] 07/12/2020 01:24:07 PM EST Name Value Range Interpretation Code Description Data Evelin rce(s) Supporting Document(s) Care Plan RQHPSa7yVtLJPqKg17/RYTelZZHwv0QjNKelBDu3ZHigWOJtC0KmNHN9dX2vXOF1PRcDDjQyGtAjNgC8 lbm [file] AgP3TDN8jNMfKa1REqS2ZHDPXiDcBT4KJZl= ID Date Data Source [id number] 07/12/2020 01:17:04 PM EST Name Value Range Interpretation Code Description Data Evelin rce(s) Supporting Document(s) Care Plan MXJFAh7wGcGFXmQq04/UGJqqPVHzn2AqXJxwCOj9LTdwLELzK8HsSJQ4vI3aKBL7DBlXVgVoOsBkVbE1 lbm [file] AgICAgICAgICAgICAgICAgICAgICAgICAgICAgICAg XLZqGVKtDBNcAMCfRLSpVOKdXNVrYKKyRKWoXRWvTXXmOCWgXGUwSJYfWOEoDTTnEP8ILYTiWBIoFVWb ICAgICAgICAgICAgICAgICAgICAgICAgICAgICAgICAgICAgICAgICAgICAgICAgICAgICAgICAgICAg ICAgICAgICAgICAgICAgICAgICAgICAgICAgICAgIA 0KICAgICAgICAgICAgICAgICAgICAgICAgICAgICAgICAgICAgICAgICAgICAgICAgICAgICAgICAgIC XyVQNmUXXeYOJgYUWdZKYbGPHtBMPqGUVcIAQbHGInHPIeHBIpAVWuLP0HJAKoRWIrKUAtZUEwEYKoAK AgICAgICAgICAgICAgICAgICAgICAgICAgICAgICAg VSQaBDMcDAYfQSCkYWKwBERiHISiYUNgNCUpARRoOSAnNHQzNLFdVXOlOYJfZHPkLVYuBS1AMGDgQIVb ICAgICAgICAgICAgICAgICAgICAgICAgICAgICAgICAgICAgICAgICAgICAgICAgICAgICAgICAgICAg ICAgICAgICAgICAgICAgICAgICAgICAgICAgICAgIC SlVD8IJKQbVRKlHSSmBARlGJMzOAEtGWEbYZIyKRBbNTBuNMFyNHEtVUHeBRHjDPHvLPYeMGMtUVQwER RePUOiIDPiBQPtSTNqOOVuKEMjUCXjCIPnGAHrPPMcKSKpHVQbZQJsAEYbTE9UEUNxFVLtKNElMSZaZB AgICAgICAgICAgICAgICAgICAgICAgICAgICAgICAg ORAxNYRcYQLkLAJcQUSaSQSzGRKuAFKeHBJqYZFtXOMmHFBnKHKfBCPgQUBzGDJtAQLeZBCpNP6EHFUh ICAgICAgICAgICAgICAgICAgICAgICAgICAgICAgICAgICAgICAgICAgICAgICAgICAgICAgICAgICAg ICAgICAgICAgICAgICAgICAgICAgICAgICAgICAgIC XfDNJmOM3PROHcQSToJBNqEBOsYWYbJPOvWKIqXHUyAHDbTALwLVWnKCLiEVMdISPfGDNxVWOxBBTdCS KdTQZdOOUkLZDgFGRwQFYqCKZeLZAbTSMxGHHrOMRrBZLjMDCgJTKaFQOhHKOqNW2WZFUwWELaXMKmZS AgICAgICAgICAgICAgICAgICAgICAgICAgICAgICAg YIVfDDHpIDHoXMUlYDHeXVBoLPMnTVQnQBPvVBQpQEWsTSDbDXVdWPJlZBZzVKNvJNHzZPFnNFInNM1F QQ07nCXir8U4WDItHI1fzrm/Ll4QSMtxsqVnuDOdZP7JNwSwHX6cel8FFlHrCE2rwh1UEIpFKwTnP5I9 nYAqEGZyLJZCLlHnP66sWMrdPx93ZVlkOIAuWvKbHM l4Do0PRwHjI9byFCLpAmI7PDQyAjMgICcnMT3Ww1ZcgWCwHDr+Ve6AAL6vb6KpJYqrIILrDW6tbd4UBV dEKjFrA1KdexE9IIF7ZXXuKn2LDJWeECIlpVYrYiMyGXRCKaVfW4NzzN49CLAPTp2+DQplbmRvYmoNCj V9TSUmf4LdHAt1CW9EBRSnWYr0tBXiT8KoXINQtBKv LJZ4EX4gferie5HiMNAmwI7zCBckNKlpBKKqPCQwKh7cQu0oTBAhGNDbLkYgAMDPZD9XQSEwUAGudBMc GZQvDAEMSC7PJOmyOMI6FrzdytAzoTDeKYbsFR9FYUIzppLbBtYwXFIFJVc+Oi7IHI8vi3UrCYetAoDg AC3qkn3TAPlJKeJrH2U2cLWuY3S7HBphLw0HSNMeLV QaXqHnARATSJivPQ8MUS6eswK5VB1ApRTiLUHiTBNxmBOcIPt8N87gxSWvQMgoAQ7MUWE+Yadira+Pg0KIC HnXTUbDAPyChOtELZHNzRlU9FuM7ZNn3NaY2NkCA78rSunawUaPNrfEQ2DCP3kSXGzMAYDGY5BdSCmnJ 4zayIrYPDhMXDDDwZjN02zwRUdMJAoDGK2LWDmWg7A HRJwL0TklxJavYqxcvPgPDDsZHRROS5JGZguhuOrjZGvwYytBA09qZiaIR4IEf3AWhZqCD7hvm8EeWNa Gq3MQKKnVD3BZZCsZGDuJXEgHHA6FBUuZrGxYTinMYMzSVYiKUM3HYUdZHWsMO9GFbEsGEVkTuDdExcu UGKcBEEabw8OLTOcTVDhNWqbKKTjTVAtCNQqKCrcAO FcMAAsTEB6IVQjMCNdKL3XArGyTSHmADPqPwQcHBKsKGHkae2UQXTsCMPmRFF3YOMeIZPyJCBtXRdhPP OhWOFeIZD2QYFfZACtYW0NAtZtQDUrCOE3CrytYAVoJDTsom1OVYYdERMaQgcrAgPrJZOrXWExFGilYA RyJBJgWYlsWUCrMBDzCE4CSvPuUJNkFJRbWoueJSFq DHHcbe9DHEImAXUxEKX9TPIjKRFcNAAkHXvlXFTsZPO7BxM8IAQnIBUbOG0KLsJdBBRhZJH3GmNePWAq ORIihh9EQFYrYRWyRhJePHFnKYTkGSNtYTkxTDZmCSC5Zla0JHIoCTYqVG3OHkAmTCPrJEn5SdXgKLEu SESsgi8KLCFkXHGbJQF0DlCdCUZcEZLdUTcmMBNdTG Q0CtVeHNJeVKZaCS5UDzBvRYRsCOd7ERNlZIMvXHJygz8NFTYyDZIvGUp8QZLnAZOuBQApFTvnKUPgLZ U3TPzwNPBrNBWhPZ1WZcRkVDGbLuOiWTLbNLOtAIStjs7TAGTdAHJwCFG7XQJuUQMjMSWjXPdsHBTwEZ YeNMO8OUUmGGDeSM2HZgQcYFLtCtEmGSrbUZUjXEWl vg9TZEAxLRCfPhCaLAErGCVjVYAbGGa8zvZdrWKdOSe8FX2II3DuydIcJfxXWl4Vd313ATD0TCWmPr7P V1iiIs0hOZNjERASVg9DXOi4OppzEJDuNvIaTsl0HUv2XQR2B2H3QVAwCDJqWwIgGbM+MLq1BSSyEEY5 EGAqRKY8XQd2OgpcXKA1G1GpVjEbXqPzPT5kOLFMUl9+NWgfnFJgbVhuCQVKUxZkZNw0SEmaLLEEDx1P ID Date Data Source [id number] 07/12/2020 12:40:00 PM [facility] Name Value Range Interpretation Code Description Data Evelin rce(s) Supporting Document(s) Glucose, Fingerstick 279 mg/dl 70-110 Above high normal The above 1 analytes were performed by [facility] [id number] [place] [address], ,[place] [address] ID Date Data Source [id number] 07/12/2020 08:29:04 AM [facility] Patient: JAGJIT IBARRA : 1960 MR N: [id number] [facility] Provider: EDIE MICHELINICAL HISTORY: PICC from different facility, history of coronary arterydisease with stent placement paroxysmal atrial fibrillation, hypertensionTECHNIQUE: Single AP portable view.COMPARISON: 06/19/2020FINDINGS: Expiratory study moderately kyphotic. Under penetrated. Vaguealveolar process right base may be due to atelectasis, pneumonia cannot be ruledout. There may be a similar process medial aspect left base poorly visualized. Prior study demonstrated a dual compartment automatic implantable cardiacdefibrillator which has been withdrawn. No pneumothorax. Right PICC tipsuperior vena cava unchanged from the prior. Fixation device noted in the lowercervical spine.IMPRESSION: IS SOMEWHAT LIMITED STUDY. THE BIBASAL OR ATELECTASIS OR PNEUMONIASUSPECTED. RECOMMEND PA AND LATERAL VIEWS TO FURTHER EVALUATE.Electronically Signed by Luke Leggett MD 07/12/2020 8:29 AM Name Value Range Interpretation Code Description Data Evelin rce(s) Supporting Document(s) ID Date Data Source [id number] 07/12/2020 07:33:00 AM EST Name Value Range Interpretation Code Description Data Evelin rce(s) Supporting Document(s) Glucose, Fingerstick 229 mg/dl 70-110 Above high normal The above 1 analytes were performed by [facility] [address],[facility]#: [id number],[place] [address] ID Date Data Source [id number] 07/12/2020 04:41:01 AM EST Name Value Range Interpretation Code Description Data Evelin rce(s) Supporting Document(s) H&P DNGPIm0fVuXRIaTx67/VZVlpRVZmk8UlPAdgESz4PHdbQQYlL9FdDAN5rR3cNKR9UOvGTqYsNmYxZkA1 lbm [file] AgICAgICAgICAgICAgICAgICAgICAgICAgICAgICAgICAgICAgICAgICAgICAgICAgDQogICAgICAgIC AgICAgICAgICAgICAgICAgICAgICAgICAgICAgICAg ICAgICAgICAgICAgICAgICAgICAgICAgICAgICAgICAgICAgICAgICAgICAgICAgICAgICAgICAgICAg DQogICAgICAgICAgICAgICAgICAgICAgICAgICAgICAgICAgICAgICAgICAgICAgICAgICAgICAgICAg ICAgICAgICAgICAgICAgICAgICAgICAgICAgICAgIC AgICAgICAgICAgDQogICAgICAgICAgICAgICAgICAgICAgICAgICAgICAgICAgICAgICAgICAgICAgIC AgICAgICAgICAgICAgICAgICAgICAgICAgICAgICAgICAgICAgICAgICAgICAgICAgICAgDQogICAgIC AgICAgICAgICAgICAgICAgICAgICAgICAgICAgICAg ICAgICAgICAgICAgICAgICAgICAgICAgICAgICAgICAgICAgICAgICAgICAgICAgICAgICAgICAgICAg ICAgDQogICAgICAgICAgICAgICAgICAgICAgICAgICAgICAgICAgICAgICAgICAgICAgICAgICAgICAg ICAgICAgICAgICAgICAgICAgICAgICAgICAgICAgIC AgICAgICAgICAgICAgDQogICAgICAgICAgICAgICAgICAgICAgICAgICAgICAgICAgICAgICAgICAgIC AgICAgICAgICAgICAgICAgICAgICAgICAgICAgICAgICAgICAgICAgICAgICAgICAgICAgICAgDQogIC AgICAgICAgICAgICAgICAgICAgICAgICAgICAgICAg ICAgICAgICAgICAgICAgICAgICAgICAgICAgICAgICAgICAgICAgICAgICAgICAgICAgICAgICAgICAg ICAgICAgDQogICAgICAgICAgICAgICAgICAgICAgICAgICAgICAgICAgICAgICAgICAgICAgICAgICAg ICAgICAgICAgICAgICAgICAgICAgICAgICAgICAgIC AgICAgICAgICAgICAgICAgDQogICAgICAgICAgICAgICAgICAgICAgICAgICAgICAgICAgICAgICAgIC AgICAgICAgICAgICAgICAgICAgICAgICAgICAgICAgICAgICAgICAgICAgICAgICAgICAgICAgICAgDQ d8K4vnEPGiDXEtOO9sQRe6Jx1+ERdPAkVbIZV8ffWc pN2PVJ3da2WjKEvuVIYwq7KhIKr5IT7WAQLbPXjsRV6JRIxgue3CIPMoTZOhvBLBy3otAnNbBNB7FGPy AihfLC3YDCObL8cqkxJmUVIvNVCPUPjhXOECZCjsWFMTMSKiSNQzTkPuHtWaWTOoXRTvYFONSWP3VCGl FdObNGyeBE4Be7OroCZ8YDw+Uy9VXY3yq2RgPLp2QN UdVI0sph5XSRhCZvWfT5VeydO1ZRArDPYfKs2QVATqYOWjhQL8AJXsIZBVRrKmT6TelC05YZJMWh3+DQ fyxpHcNknRJrZhDOLfe0RxAYp4GA4NTJJsSZj3vTLvSQDPUGZ5MIRlTP7qKLmnLSCfFZRmO1YwT6goqm raMBFhXNRnCb2dVf3iOXUvALU0GxW1TSVNEJ1XMDQo ZWUtlFTtSMJjXOZKAS8SCPrdJRY9RymwryLzvKTvNLxxKK0MDPExwjRcTDhmDHRTAOn+Zj8TTH7au5Nl OLj2QOVuMS5vch6SHJhAIsIyX7A8zIMsF5U7GMduMl0CFONaINXlMYocFGHZHCtnPH0PKC6alwR5LY0G mULhRSBfOJYyjHXnSDn4J86thUVtKFriNG9QWQD+Pi A+Ov0NCHFxOGZwWFIgNoGgJDROVqVxF6BuL1SGk1BxR1WbTI46sSqtylDeWLfuJT9LPH1iYVWkITCVEQ 2VlWLroI7pxnU5QUDqGWNWIpWoY88cgHBgYYDgGRX8VHHaPy3BHVXrI8QiypSgbWtfxsZaVDOzTXCISP 5WWFxynuOghAQxxTcaFD81qWhuJN2XJn5TQdBoHH2d mo6LbFPzZh3HROW2Jl3MMBBeJUJiLMCvCXV3PAUlMxGfPIisAYXoCGLgMXM0JJVrQIYeZO6IOuBpVDQb ZbhdIUXyPMRhAQNfaq9ZFYZoKAC6QKafGhAmJSYlFASnPWwxIVRpQYMzKXE9OPEeALMbTB1GDrMrEYDr ZPL0TUkqCHNgYTApfn7DKQGyXWTcQpJ1SiMpUOFbVB WtFJmqRVWnMON5MjB8WVGaYERdDM8VYgJuMQOtIOx9YQwhKZBaNEXlne2SZBQeVAIkIBy1TJRyILCiTG JhQPojGBSuJHVkYQP0MSXvXWJwYN3BIbLyCHWmVFK4GRxnNBBoGHCigi4XLWQhGKPoYwc0TYIvZRTpCO JgYErlQBPrFBP5MCD7VZFlDQIjTK4LSwVpDAKfTPna PbUzVHDuNMLfas9TRLHuNLCjRDHtNWGcLTImQRYgSPvsLMCbOQKmDOV7IFXiWBLzFW1LVdIzKJYxYxPu CzHySIWfEBFbyo3HNQOuTBHiUiA3LIExBXByRALsDZhpGKDgVNV5XtGyTKKjAVJxGM1YHhEkYYYrSgN1 IiFzDRVdADVvhz4IMQJbDCOlTOYgUBBlHAAiKWUkSO viQTYaAST7YYajHAAzZZTgXI9ZWgKxWLEmGpW8CpzjZQPoDUExmj8RKBWsXHYvROc6KVTjCMQpXACzNB tvHXEtORD5PVF0DCEhUJDdRW6AUiOgOSClEohjUNysKWGvLCLdcm5TNLFbGCBkMkHhGFXxOQMyNFReST wfBENpPQO9JxKqBKCiZNVyDW7ZFdTvUJRuFen6VtLh QDWnNPSgyg2WJPEbIWPsPJS7CROcFHRiUKJtEGneGGJwMWW9IgB0ZCVmHXVgLU8UIoFqPCYsFug3XCrz XIRsZLTixc4PJDSlOZIiQDNiLKFhATVoIJWbRGcrQEYlIWRdBOPoGKKaBVDlQW4ZWfPtHNKkLzEeQvhl TVZcFGSmqb7VCSLrNOVkAXB0PNKtGIMjXDJpHGgdLC FwPFV0CnStSMQtALBgJE3PQoQgZAKuPnY5QFMcCODiDFEhsv9DMNFwLBMoXrp6AMLxBIQuTNHlJRyvMF UcSQY6AYG2RVQtMSCvDA3PYsExAKJcRogrKeLuXIMrLSLtmk5NJZKxBQLgRpS9OUZzECIzFFSdNScfWG OsDDC3GwM1BTEyQAUcFA4NGxAsLRVoCjr4KsOpODUl SVRigl9CXAOkDYRcVYbvVxSqAEEnOFJrHBboGABbMXM8YUd2WZJpZESzOE3MByZuOSGeXpjsDpauGBGl HLOhva0XBIDsXOQmOTP7BaZpOQRxYBFsUKrcQIOfWWKiWAF8WRAlHIVfKS2FByLdZZCaQGBzWyEbQQSk LJSapt8PQUSfQJC0ZEL6WQCqBWVeBZBaDCe6zbPabP TjUDl0PC9IZ4YokkZrOCDZQw2Nj830TORqFKIiWh5TP9asJz8aCCMmPEGQFq4GQTu0DUXvJqtuJVYiBI RmSHxaWaScRcE0EzE6VSRmEJAtNiP+NNrdEIP3IYHjHINgXTS2T8QoPPDjDoq4SgWqVQXlGBX6Sn7tOC ANCj4+NYnrlAGwgSwlJTAXFmOkWIC7RZvxVJCDJh2C ID Date Data Source [id number] 07/13/2020 12:51:00 AM EST Name Value Range Interpretation Code Description Data Evelin rce(s) Supporting Document(s) Procalcitonin <0.05 ng/ml 0.00-0.50 Normal (applies to non-numeric r esults) PCT Concentration: <= 0.5 ng/mLInterpre tation: Systemic infection (sepsis) is not likely. Local bacterial infection is possible.Risk or options for further action:Low risk for progression to severe systemic infection (severe sepsis/septic shock).Caution: PCT levels below 0.5 ng/mL do not exclude an infection, because localized infections (without systemicsigns) may be associated with such low levels.PCT Concentration: 0.5-2 ng/mLInterpretation: Systemic infection (sepsis) is possible, butother condictions are know to elevate PCT as well. Risk or options for further action:Moderate risk for p rogression to severe systemic infection(severe sepsis/septic shock). The patient should be closelymonitored both clinically and by re-assessing PCT within6-24 hours. PCT Concentration: >2 ng/mLInterpretation: Systemic infection (sepsis) is likely, unless other causes are known.Risk or options for further action: High risk for progression to severe systemic infection(severe sepsis/septic shock).PCT Concentration >= 10 ng/mLInterpretation: Important systemic inflammatory response, almost exclusively due to severe bacterial sepsis or septic shock.Risk or options for further action:High likelihood of sepsis or septic shockThe above 1 analytes were performed by [facility] [id number] [place] [address], ,[place] [address] ID Date Data Source [id number] 07/13/2020 12:21:00 AM EST Name Value Range Interpretation Code Description Data Evelin rce(s) Supporting Document(s) NTproBNP 161 pg/ml 0-125 Above high normal [facility] Acute CHF unlikely if NTproBNP:<125 pg/m L for age <75 years<450 pg/mL for age > or = 75 yearsCHF likely if NTproBNP:>450 pg/mL for age <50 years>900 pg/mL for age 50-75 years>1800 pg/mL for age >75 yearsCHF very likely if NTproBNP:>68150 (regardless of age)The PRIDE study recommends the above cut-off values. It also recognizesa change in a patient's "dry" value of >25% as being an acute episode of HF. Therefore, a return to their"dry" level at a 25% decrease is an indication of a successful intervention.The above 1 analytes were performed by [facility] [id number] [place] [address], ,[place] [address] ID Date Data Source [id number] 07/12/2020 07:11:00 AM EST Name Value Range Interpretation Code Description Data Evelin rce(s) Supporting Document(s) Blood Urea Nitrogen 7 mg/dl 7-18 Normal (applies to non-nume kamilah results) Creatinine 0.74 mg/dl 0.67-1.17 Normal (applies to non-numeric resul ts) N-Acetylcysteine (NAC) and Metamizole bradley ve the potential to falselydepress Creatinine results. Baseline values before medication adminstration are recommended. Patients undergoing treatment with phenindione will have falselydepressed results. Patients on phenindione therapy should be tested with an alternativeCREA method.Toxic levels of acetaminophen may lead to falsely depressed results forpatient samples. Glomerular Filtration Rate >90.00 mL/min/1.73m2 GFR Reference Ranges:Normal Function or Mild Renal Disease,if clinically at risk:>or= 60Moderately decreased:30 - 59Severely decreased:15 - 29Renal Failure:<15 Please note that the MDRD equation requires an additional adjustment forAfrican-Americans (multiply the GFR result by 1.210).Glomarular Filtration Rate (GFR) is estimated based on the MDRDequation, which assumes a steady state for creatinine (Klarissa Int Med 139/2 137-149, 2003), as recommended by the NationalKidney Disease Education Program in conjunction with the National Institutes of Health and the National KidneyFoundation. The [place] method used in calculating this result is traceable to IDMS standards. Glucose 205 mg/dl 70-110 Above high normal [facility] Sulfasalazine has the potential to false ly depress Glucose results. Sulfapyridine has the potential to falsely elevate Glucose results. Baseline values before medication administration are recommended. Calcium 8.7 mg/dl 8.5-10.1 Normal (applies to non-numeric resul ts) Sodium 138 mEq/L 136-145 Normal (applies to non-numeric resul ts) Potassium 3.3 mEq/L 3.5-5.1 Below low normal Chloride 106.0 mEq/L 98.0-107.0 Normal (applies to non-numeric resu lts) Carbon Dioxide 26.7 mMol/L 21.0-32.0 Normal (applies to non-numeric results) Anion Gap 8.6 7.0-15.0 Normal (applies to non-numeric resul ts) The above 10 analytes were performed by [facility] [id number] [place] [address], ,[place] [address] ID Date Data Source [id number] 07/12/2020 07:11:00 AM EST Name Value Range Interpretation Code Description Data Evelin rce(s) Supporting Document(s) Magnesium 1.7 mg/dl 1.6-2.6 Normal (applies to non-numeric resul ts) The above 1 analytes were performed by [facility] [id number] [place] [address], ,[place] [address] ID Date Data Source [id number] 07/12/2020 07:11:00 AM EST Name Value Range Interpretation Code Description Data Evelin rce(s) Supporting Document(s) Troponin I <0.015 ng/ml 0.000-0.100 Normal (applies to non-numeric re sults) Reference Values:Negative:<0.07 ng/mLInc reasing Risk of ACS:0.08-0.10 ng/mLPositive:>0.10 ng/mLConditions other than IA that cause increased troponin I values includebut are not limited to chest trauma, cardiac and non-cardiac surgery,congestive heart failure, drug cardio-toxicity, inflammatory diseasessuch as myocarditis, pulmonary embolism, inflitrative diseases, andacute neurological disease.An AMI diagnositc cutoff within a range of 0.6-1.5 ng/mL is consistentwith the WHO criteria for AMI.Concentrations of Biotin above 100 ng/mL can potentially result ininterference. Results obtained using [employer].The above 1 analytes were performed by [facility] [id number] [place] [address],[facility] [id number],[place] [address] ID Date Data Source [id number] 07/12/2020 06:52:00 AM EST Name Value Range Interpretation Code Description Data Evelin rce(s) Supporting Document(s) WBC 5.39 x1000/ul 4.80-10.00 Normal (applies to non-numeric re sults) RBC 3.88 x1Mil/ul 4.70-6.[address] [facility] Hemoglobin 11.3 g/dl 14.0-18.0 Below low normal [facility] Hematocrit 34.7 % 42.0-52.0 Below low normal [facility] MCV 89.4 fL 80.0-94.0 Normal (applies to non-numeric resul ts) MCH 29.1 pg 27.0-31.0 Normal (applies to non-numeric resul ts) MCHC 32.6 g/dl 32.2-37.0 Normal (applies to non-numeric resul ts) RDW 14.9 % 11.5-14.5 Above high normal [facility] Platelet Count 163 x1000/ul 130-400 Normal (applies to non-numeric results) MPV 10.1 fL 9.4-12.4 Normal (applies to non-numeric resul ts) Neutrophils 62.3 % 40.0-74.0 Normal (applies to non-numeric resu lts) Lymphocytes 23.7 % 19.0-48.0 Normal (applies to non-numeric resu lts) Monocytes 8.9 % 3.4-9.0 Normal (applies to non-numeric resul ts) Eosinophils 3.9 % 0.0-7.0 Normal (applies to non-numeric resu lts) Basophils 0.6 % 0.0-2.0 Normal (applies to non-numeric resul ts) Immature Granulocytes 0.6 % 0.0-0.5 Above high normal Nucleated RBCs 0.00 % 0.00-0.20 Normal (applies to non-numeric r esults) Abs. Neutrophils 3.36 x1000/ul 1.92-8.31 Normal (applies to non-numeric results) Abs. Lymphocyte 1.28 x1000/ul 1.20-3.70 Normal (applies to non-n umeric results) Abs. Monocytes 0.48 x1000/ul 0.14-0.97 Normal (applies to non-nu meric results) Abs. Eosinophils 0.21 x1000/ul 0.00-0.76 Normal (applie s to non-numeric results) Abs. Basophils 0.03 x1000/ul 0.00-0.22 Normal (applies to non-n umeric results) Abs. Immature Gran. 0.03 x1000/ul 0.00-0.02 Above high normal Abs. Nucleated RBCs 0.00 x1000/ul 0.00-0.02 Normal (appl ies to non-numeric results) The above 24 analytes were performed by [facility] [id number] [place] [address], ,[place] [address] ID Date Data Source [id number] 07/12/2020 12:07:00 AM EST Name Value Range Interpretation Code Description Data Evelin rce(s) Supporting Document(s) Glucose, Fingerstick 187 mg/dl 70-110 Above high normal The above 1 analytes were performed by [facility] [id number] [place] [address], ,[place] [address] ID Date Data Source [id number] 07/17/2020 09:55:00 AM EST Name Value Range Interpretation Code Description Data Evelin rce(s) Supporting Document(s) Culture Result No Growth After 5 Days [facility] The above 1 analytes were performed by [facility] [id number], ,[place] [address] ID Date Data Source [id number] 07/11/2020 10:37:00 PM [facility] Name Value Range Interpretation Code Description Data Evelin rce(s) Supporting Document(s) Troponin I <0.015 ng/ml 0.000-0.100 Normal (applies to non-numeric re sults) Reference Values:Negative:<0.07 ng/mLInc reasing Risk of ACS:0.08-0.10 ng/mLPositive:>0.10 ng/mLConditions other than IA that cause increased troponin I values includebut are not limited to chest trauma, cardiac and non-cardiac surgery,congestive heart failure, drug cardio-toxicity, inflammatory diseasessuch as myocarditis, pulmonary embolism, inflitrative diseases, andacute neurological disease.An AMI diagnositc cutoff within a range of 0.6-1.5 ng/mL is consistentwith the WHO criteria for AMI.Concentrations of Biotin above 100 ng/mL can potentially result ininterference. Results obtained using [employer].The above 1 analytes were performed by [facility] [id number] [facility], ,[place] [address] ID Date Data Source [id number] 07/11/2020 10:37:00 PM [facility] Name Value Range Interpretation Code Description Data Evelin rce(s) Supporting Document(s) C-Reactive Protein (Non-Cardiac) 3.49 mg/L 0.00-3.00 Above high nor [facility] The above 1 analytes were performed [facility] [id number] [facility], ,[place] [address] ID Date Data Source [id number] 07/17/2020 09:55:00 AM [facility] Name Value Range Interpretation Code Description Data Evelin rce(s) Supporting Document(s) Culture Result No Growth After 5 Days [facility] The above 1 analytes were performed by [facility] [id number], ,[place] [address] ID Date Data Source [id number] 07/11/2020 03:43:00 PM [facility] Bridget Ce is a rapid, automated qualita tive anddifferentiation of Influenza type A,B and [id number]-RT-PCR testNORMAL VALUE IS "NOT DETECTED".Limitations of the bridget ce Influenza A/B & [id number]-[id number]-[id number] method.Modifications to manufacturers recommendation and proceduresmay alter performance of the test.Negative results do not preclude Influenza A,B or SARS- ZYI1qtykoidzrk and should not be used as the sole basis fortreatment or other management decisions. Results from theCobas Ce Influenza A/B & COV2 should be interpeted inconjunction with other laboratory and clinical dataavailable to the clinician.False negative results may occur if a specimen is improperlycollected, transported or handled. False negatives may occurif inadequate numbers of organisms are present in thespecimen.This test has not been evaluated for patients without signsand systoms of influenza and SARS-COV-2 infection.This assay has not been evaluated for patients receivingintranasal administered influenza vaccine.This assay has not been evaluated for immunocompromisedindividuals.This test cannot rule out diseases caused by other bacterialor viral pathogens.SARS-rel CoV RNA Resp Ql PARMJIT+probeFLUAV RNA Resp Ql PARMJIT+probeFLUBV RNA Resp Ql PARMJIT+probe Name Value Range Interpretation Code Description Data Evelin rce(s) Supporting Document(s) ID Date Data Source [id number] 07/11/2020 03:43:00 PM [facility] Bridget Ce is a rapid, automated qualita tive anddifferentiation of Influenza type A,B and [id number]-RT-PCR testNORMAL VALUE IS "NOT DETECTED".Limitations of the bridget ce Influenza A/B & [id number]-[id number] method.Modifications to manufacturers recommendation and proceduresmay alter performance of the test.Negative results do not preclude Influenza A,B or SARS- GAG4xzmauqmesa and should not be used as the sole basis fortreatment or other management decisions. Results from theCobas Ce Influenza A/B & COV2 should be interpeted inconjunction with other laboratory and clinical dataavailable to the clinician.False negative results may occur if a specimen is improperlycollected, transported or handled. False negatives may occurif inadequate numbers of organisms are present in thespecimen.This test has not been evaluated for patients without signsand systoms of influenza and SARS-COV-2 infection.This assay has not been evaluated for patients receivingintranasal administered influenza vaccine.This assay has not been evaluated for immunocompromisedindividuals.This test cannot rule out diseases caused by other bacterialor viral pathogens.SARS-rel CoV RNA Resp Ql PARMJIT+probeFLUAV RNA Resp Ql PARMJIT+probeFLUBV RNA Resp Ql PARMJIT+probe Name Value Range Interpretation Code Description Data Evelin rce(s) Supporting Document(s) Extended hours FLU/COV2 NAAT L [facility] ID Date Data Source [id number] 07/11/2020 03:08:00 PM EST [facility] Name Value Range Interpretation Code Description Data Evelin rce(s) Supporting Document(s) Bridget Ce SARS/FLU SARS-COV-2 NOT DETECTED [facility] This lab was ordered by [facility] and reported by [facility]. ID Date Data Source [id number] 07/11/2020 03:08:00 PM EST [facility] [address] [place] [address] [phone] NAME SEX PT STATUS ACCOUNT NUMBER JAGJIT IBARRA REG ER [id number] ORDERING PHYSICIAN LOCATION MEDICAL RECORD NO. Mika Shaffer MD ER [id number] ATTENDING PHYSICIAN DATE OF DATE OF EXAM/TIME Jd Lal MD 1960 07/11/20 / 1506 TYPE / EXAM Xray Chest One View REASON FOR EXAM shortness of breath COMPARISON: July 05, 2020 FINDINGS: A right-sided PICC line terminates in the distal SVC. There is cardiomegaly. The mediastinal silhouette is otherwise unremarkable. Lungs are clear, without evidence of pulmonary consolidation, pleural effusion, or pulmonary vascular congestion. The patient is remotely post ACDF. No acute osseous abnormality is seen. IMPRESSION: No acute cardiopulmonary disease. Reported By Reggie Kelly MD on 07/11/20 [id number] Signed By Reggie Kelly MD on 07/11/20 1510 Date Time CC: Reggie Kelly MD; Jd Lal MD Techn: CARRC Trans Dt/Tm: Trans by: DT Prt Dt/Tm: [id number]: Total DLP = 0.00 mGy-cm Fluoroscopy Time (in secs): Name Value Range Interpretation Code Description Data Evelin rce(s) Supporting Document(s) ID Date Data Source [id number] 07/11/2020 02:53:00 PM EST [facility] Oxygen Delivery Method Room Air Anticoagulant or Thrombolytic medication : Other Po Anticoagulant Name Value Range Interpretation Code Description Data Evelin rce(s) Supporting Document(s) Leukocytes [#/volume] in Blood by Automated count 4.1 10*3/uL 4.45-10.71 Below low normal [facility] Erythrocytes [#/volume] in Blood by Automated count 3.79 10*6/uL 4.3-6.1 Below low normal [facility] Hemoglobin [Moles/volume] in Blood 11.1 g/dL 13-18 Below low no rmal [facility] Hematocrit [Volume Fraction] of Blood by Automated count 34.0 % 42-52 Below low normal [facility] Erythrocyte mean corpuscular volume [Ent itic volume] in Cord blood by Automated count 89.7 fL 80-96 N [facility] Erythrocyte mean corpuscular hemoglobin [Entitic mass] by Automated count 29.3 pg 27-31 N [facility] l Erythrocyte mean corpuscular hemoglobin concentration [Mass/volume] in Cord blood 32.6 g/dL 33-37 Below low normal [facility] Erythrocyte distribution width [Entitic volume] by Automated count 15 % 11-15 N [facility] Platelets [#/volume] in Blood by Automated count 157 10*3/uL 130-472 N [facility] Platelet mean volume [Entitic volume] in Blood 9.4 fL 9.1-13.1 [facility] Neutrophils/100 leukocytes in Blood by Automated count 55.9 % 41- 77 N [facility] Neutrophils [#/volume] in Blood by Automated count 2.3 U 1.7-7.6 N [facility] Lymphocytes/100 leukocytes in Blood by Automated count 30.5 % 14- 46 N [facility] Lymphocytes [#/volume] in Blood by Automated count 1.3 U 0.6-4.6 N [facility] Monocytes/100 leukocytes in Blood by Automated count 8.5 % 4-12 N [facility] Monocytes [#/volume] in Blood by Automated count 0.4 U 0.2-1.2 N [facility] Eosinophils/100 leukocytes in Blood by Automated count 3.9 % 0-7 N [facility] Eosinophils [#/volume] in Blood by Automated count 0.2 U 0.0-0.5 N [facility] Basophils/100 leukocytes in Blood by Automated count 0.7 % 0.4-1 .3 N [facility] Basophils [#/volume] in Blood by Automated count 0.0 U 0.0-0.2 N [facility] NUCLEATED RED BLOOD CELL 0 % [facility] NUCLEATED RED BLOOD CELL# 0 U [facility] Immature granulocytes [Presence] in Blood by Automated count 0-2 N [facility] Immature granulocytes [#/volume] in Blood by Automated count 0.0 U 0-0.1 N [facility] Manual Differential panel - Blood NO [facility] ID Date Data Source [id number] 07/11/2020 02:54:00 PM EST [facility] Oxygen Delivery Method Room Air Anticoagulant or Thrombolytic medication : Other Po Anticoagulant Name Value Range Interpretation Code Description Data Evelin rce(s) Supporting Document(s) pH of Venous blood 7.37 7.25-7.45 N [facility] Carbon dioxide [Partial pressure] in Venous blood 48.6 mm[Hg] 41.0-51 .0 N [facility] Oxygen [Partial pressure] in Venous blood 24.5 mm[Hg] 25.0-4 0.0 Below low normal [facility] 39.6 Bicarbonate [Moles/volume] in Venous blood 28.2 mmol/L 22.0- 26.0 Above high normal [facility] Base excess in Venous blood by calculation 2.3 -3.0-3.0 N [facility] Carbon dioxide, total [Moles/volume] in Venous blood 29.7 mmol/L 23-3 0 N [facility] 21@Reenter manual test result: 21%@by Barbara Rowe at 07/11/20 1453. ID Date Data Source [id number] 07/11/2020 03:16:00 PM [facility] Oxygen Delivery Method Room Air Anticoagulant or Thrombolytic medication : Other Po Anticoagulant Name Value Range Interpretation Code Description Data Evelin rce(s) Supporting Document(s) Prothrombin Time (Patient) 11.5 s 9.6-12.3 N [facility] INR 1.1 0.9-1.1 [facility] THE INR IS OPERATIONALLY DEFINED FOR RIKI SH PLASMA FROMPATIENTS STABILIZED ON ORAL ANTICOAGULANTS.ROUTINE ANTICOAGULANT THERAPY 2.0-3.0RECURRENT SYSTEMIC EMBOLISM/HEART VALVE REPLACEMENT 2.5-3.5 aPTT.lupus sensitive (LA screen) 24.4 s 22.7-31.6 N [facility] ID Date Data Source [id number] 07/11/2020 03:21:00 PM [facility] Oxygen Delivery Method Room Air Anticoagulant or Thrombolytic medication : Other Po Anticoagulant Name Value Range Interpretation Code Description Data Evelin rce(s) Supporting Document(s) Urea nitrogen [Mass/volume] in Serum or Plasma 7 mg/dL 9-23 Below low normal [facility] Sodium [Moles/volume] in Serum or Plasma 139 mmol/L 132-146 [facility] Potassium [Moles/volume] in Serum or Plasma 4.3 mmol/L 3.5-5.5 [facility] Chloride [Moles/volume] in Serum or Plasma 107 mmol/L 99-109 [facility] Carbon dioxide, total [Moles/volume] in Serum or Plasma 27 mmol/L 20 -31 N [facility] Anion gap in Serum or Plasma 9 mmol/L 8-16 [facility] Glucose [Mass/volume] in Serum or Plasma 331 mg/dL 74-106 Above high normal [facility] Creatinine 1.0 mg/dL 0.5-1.1 [facility] Glomerular filtration rate/1.73 sq M.pre dicted [Volume Rate/Area] in Serum or Plasma Greater Than 60 ABOVE 60 [facility] Alanine aminotransferase [Enzymatic acti vity/volume] in Serum or Plasma by With P-5'-P 17 U/L 10-[address] [facility] Aspartate aminotransferase [Enzymatic ac tivity/volume] in Serum or Plasma by With P-5'-P 16 U/L 0-33 N [facility] pital Alkaline phosphatase [Enzymatic activity/volume] in Serum or Plasma 98 U/L 45-129 N [facility] Calcium [Mass/volume] in Serum or Plasma 8.6 mg/dL 8.5-10.1 N [facility] Bilirubin.total [Mass/volume] in Serum or Plasma 0.6 mg/dL 0.3-1.2 N [facility] Albumin [Mass/volume] in Serum or Plasma by Bromocresol purple (BCP) dye binding method 3.5 g/dL 3.2-4.[address] [facility] ital Protein [Mass/volume] in Serum or Plasma 7.3 g/dL 5.7-8.2 [facility] ID Date Data Source [id number] 07/11/2020 03:21:00 PM [facility] Oxygen Delivery Method Room Air Anticoagulant or Thrombolytic medication : Other Po Anticoagulant Name Value Range Interpretation Code Description Data Evelin rce(s) Supporting Document(s) Magnesium [Mass/volume] in Serum or Plasma 1.8 mg/dL 1.3-2.7 [facility] ID Date Data Source [id number] 07/11/2020 03:21:00 PM [facility] Oxygen Delivery Method Room Air Anticoagulant or Thrombolytic medication : Other Po Anticoagulant Name Value Range Interpretation Code Description Data Evelin rce(s) Supporting Document(s) Troponin I.cardiac [Mass/volume] in Serum or Plasma Less Than 0.015 0.00-0.09 [facility] Less than 0.09 NG/ML Negative0.10 - 0.77 NG/ML High Risk0.78 NG/ML or Greater PositiveThe WHO defined the cutoff (definition for diagnosis of IA)for this method as 0.78 ng/ml. ID Date Data Source [id number] 07/11/2020 03:21:00 PM [facility] Oxygen Delivery Method Room Air Anticoagulant or Thrombolytic medication : Other Po Anticoagulant Name Value Range Interpretation Code Description Data Evelin rce(s) Supporting Document(s) Natriuretic peptide.B prohormone N-Terminal [Mass/volu me] in Serum or Plasma 227.00 pg/mL 0.00-[address] [facility] spital ID Date Data Source [id number] 07/11/2020 03:21:00 PM [facility] Anticoagulant or Thrombolytic medication : Other Po AnticoagulantIs test to R/O PE, DVT or VTE? Y Name Value Range Interpretation Code Description Data Evelin rce(s) Supporting Document(s) Fibrin D-dimer [Units/volume] in Platelet poor plasma 0.99 mg/L 0.0-0.50 Above high normal [facility] @ Has QC been run for this test today?veronica Franks NOTE: THIS TEST WAS PERFORMED USING A PARTICLE-ENHANCED, IMMUNOTURBIDIMETRIC ASSAY AND HAS A SINGLE,CLINICALLY DERIVED CUTOFF OF 0.50 MG/L. ID Date Data Source [id number] 07/11/2020 02:31:00 PM [facility] ED Physician Documentation NAME: JAGJIT IBARRA : 1960 AGE: 60 MR#: [id number] SERVICE DATE: 07/11/[address]: Mika Shaffer MD PRIMARY CARE DR: Jd Lal MD ROOM#: HPI (Adult, General) General Chief Complaint: Multi system (Adult) Stated Complaint: unconscious Resident LTC, travel outisde home, exposure to hot tubs:: No Time Seen by Provider: 07/11/20 14:29 Source: patient Exam Limitations: no limitations History of Present Illness Narrative: This is a pleasant 60M hx of P. 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 He is unfortunately not the best historian. He tells me he was in his apartment earlier today and woke up on the ground. He is unsure of the time frame for this. He appears quite anxious during the interview and becomes tearful at time. He was then doing laundry shortly after with his significant other and told her he felt light headed and dizzy and collapsed in front of her who called EMS. When we spoke to his SO, she informed us that the patient may not have been breathing for a brief period. EMS then arrived and he was sitting on the couch and had a third syncopal episode briefly before regaining consciousness. The patient denies experiencing chest pain, but states he has not felt well all day and light headed. He forgot to take all his morning mediations today. His medication list has amiodarone listed, but he cannot verify if he is still taking this right now. He does admit to still being on eliquis. Additionally, of note, the patient was seen a 6 days ago in the ED for similar of feeling light headed and having experienced a syncopal episode. At that time, all his labs and EKG were unremarkable and he was discharged home. He denies fever, chills, cough, cp, sob, n/v/d, abdominal pain, dysuria, hematuria, BAIG. He currently has a picc line in place and is on abx for his recent endocarditis. History of Present Illness Timing/Duration: 4-[address] Injury/Event Occurred (if applicable): home Past Medical History Past Medical History: Nursing Past Medical History Has Been Reviewed Allergies/Home Meds Allergies Allergy/AdvReac Type Severity Reaction Status Date / Time cyclobenzaprine AdvReac Mild Anxiety Verified 07/10/20 13:15 [From Flexeril] nifedipine [From Procardia] AdvReac Mild Taste Verified 07/10/20 13:15 Changes prochlorperazine AdvReac Mild Anxiety Verified 07/10/20 13:15 [From Compazine] Home Medications Medication Instructions Recorded Confirmed Last Taken Type aspirin 81 mg PO DAILY 07/06/19 07/05/20 07/05/20 History nitroglycerin 0.4 mg SUBLINGUAL Q5MIN PRN 07/06/19 07/05/20 05/29/20 13:30 History o.4 mg aripiprazole 5 mg PO DAILY 07/07/19 07/05/20 07/05/20 History carvedilol 25 mg PO BID 07/07/19 07/05/20 07/05/20 History cholecalciferol (vitamin D3) 25 mcg PO DAILY 07/07/19 07/05/20 07/05/20 History folic acid 1 mg PO DAILY 07/07/19 07/05/20 07/05/20 History gabapentin 600 mg PO TID 07/07/19 07/05/20 07/05/20 History metformin 1,000 mg PO BID 07/07/19 07/05/20 07/05/20 History tamsulosin 0.4 mg PO DAILY 07/07/19 07/05/20 07/05/20 History amiodarone 200 mg PO BID #60 tab 05/31/20 07/05/20 07/05/20 Rx cyanocobalamin (vitamin B-12) 500 mcg PO DAILY 05/31/20 07/05/20 07/05/20 History omega-3 fatty acids-vitamin E 1,000 cap PO DAILY 05/31/20 07/05/20 07/05/20 History trazodone 100 mg PO HS 05/31/20 07/05/20 07/04/20 History pen needle, diabetic [BD #10 ea 06/01/20 07/05/20 Unknown Rx Ultra-Fine Orig Pen Needle] apixaban 5 mg tablet 5 mg PO .QD tab 07/10/20 Unknown History atorvastatin 40 mg tablet 40 mg PO DAILY tab 07/10/20 Unknown History famotidine 20 mg tablet 20 mg PO BID 07/10/20 Unknown History hydralazine 10 mg tablet 10 mg PO TID 07/10/20 Unknown History insulin glargine 100 unit/mL (3 unit SUBCUT 07/10/20 Unknown History mL) subcutaneous pen insulin lispro 100 unit/mL unit SUBCUT 07/10/20 Unknown History subcutaneous pen lisinopril 40 mg tablet 40 mg PO QDAY 07/10/20 Unknown History PMH (from Triage) Patient Medical History PMH Reviewed/Updated as Needed: Yes PMH/PSH from Triage: Medical History (Updated 07/10/20 @ 14:01 by Jd Lal M.D.) Anemia (Medical) D64.9 CAD (coronary artery disease) (Medical) I25.10 Chest pain (Medical) Deep vein thrombosis (Medical) I82.409 Essential hypertension (Medical) I10 M[address] (Medical) Z95.828 Hiatal hernia (Medical) K44.9 History of myocardial infarct at age less than 60 years (Medical) I25.2 Major depressive disorder (Medical) F32.9 Pacemaker (Medical) Z95.0 PACEMAKER REMOVED MAY 2020 DUE TO INFECTION Paroxysmal atrial fibrillation (Medical) I48.0 Cardioversion done twice in [place] Raynaud's disease (Medical) I73.00 Spinal fusion failure (Medical) T84.9XXA Stroke (Medical) I63.9 2016- received tpa, no residual deficits Type 2 diabetes mellitus with hyperglycemia, with long-term current use of insulin (Medical) E11.65,Z79.4 Surgical History (Updated 07/10/20 @ 13:19 by Jd Lal M.D.) H/O knee surgery (Surgical) Z98.890 11 of them History of coronary artery stent placement (Surgical) Z95.5 Hx of neck s urgery (Surgical) Z98.890 Hx Drug Resistant Infections Hx Other Resistant Infection?: No Isolation: Standard precautions Hx Recent Travel Out of the country within 10 days (where): No Hx Fever with a rash?: No Nurse screening for coronavirus: Recent Travel outside the No country (where) Has patient experienced No coronavirus symptoms Social History Are you in a relationship with/Does anyone hit you, yell/swear at you, steal from you?: No Substance Use Smoking Status: Former smoker Tobacco Use Years smoked:: 3 Hx Chewing Tobacco Use: No Vaccination History Hx/Date of Tetanus, Diphtheria Vaccination: Yes Hx/Date of Influenza Vaccination: Yes Hx/Date of Pneumococcal Vaccination: Yes PFSH Medical History Anemia CAD (coronary artery disease) Chest pain Deep vein thrombosis Essential hypertension Malka filter in place Hiatal hernia History of myocardial infarct at age less than 60 years Major depressive disorder Pacemaker Paroxysmal atrial fibrillation Raynaud's disease Spinal fusion failure Stroke Type 2 diabetes mellitus with hyperglycemia, with long- term current use of insulin Surgical History H/O knee surgery History of coronary artery stent placement Hx of neck surgery Family History Father Cancer Mother Cancer Brother Cancer MRSA (methicillin resistant Staphylococcus aureus) septicemia Brother No problems noted. Brother Heart disease History of coronary artery stent placement Brother No problems noted. Daughter No problems noted. Daughter No problems noted. Social History Does the Patient have a Healthcare Proxy: No Does Patient have a DNR?: No Does Patient have a Living Will?: No Does the Patient have a MOLST?: No Advance Directives on File or in chart?: Yes Hx Recent Travel (where): No Smoking Status: Former smoker ROS Review of Systems Constitutional: Denies fever and chills Eyes: Denies vision change and eye pain ENT: Denies mouth pa in, ear discharge, nasal discharge and nasal congestion Respiratory: Denies cough, sputum and SOB w/exertion rest Cardiovascular: Denies chest pain and palpitations Gastrointestinal: Denies No Symptoms/Complaints, nausea, vomiting and abdominal pain Musculoskeletal: Denies neck pain Skin/Breasts: Denies rash and lesions Neurologic: Reports loss of consciousness and other; Denies weakness, numbness and headache Physical Exam General Physical Exam Narrative: morbidly obese, poor dentition, no acute distress, appears tearful and anxious Limitations: no limitations General appearance: alert and in no apparent distress Head Head exam: Present atraumatic and normocephalic Eye Eye exam: Present normal apperance, PERRL and EOMI ENT ENT exam: Present normal exam, normal orophraynx and other (poor dentition) Neck Neck exam: Present normal inspection; Absent tenderness Respiratory Respiratory exam: Present normal lung sounds bilaterally and rales; Absent respiratory distress Cardiovascular Cardiovascular Exam: Present regular rate, normal rhythm and normal heart sounds GI/Abdominal GI/Abdominal exam: Present Abd soft, bowel sounds present all quadrents; Absent distended, tenderness, guarding and rebound Extremities Exam Extremities exam: Present normal inspection, Full ROM without tenderness, capillary refill brisk andfull ROM; Absent tenderness Back Exam Back exam: Present normal inspection and full ROM Neurological Exam Neurological exam: Present alert, oriented X3, CN II-XII intact and normal gait; Absent altered Skin Skin exam: Present warm, dry and intact Vital Signs Vital Signs: Vital Signs 07/11/20 14:29 Temperature 98.2 F Pulse Rate 75 Respiratory Rate 18 Blood Pressure 183/104 O2 Sat by Pulse Oximetry 94 L MDM (comprehensive) Lab Data Labs: 07/11/20 14:46 07/11/20 14:46 Laboratory Results Last 24 hours 07/11/20 14:31: POC Glucose 331 H 07/11/20 14:46: WBC 4.1 L, RBC 3.79 L, Hgb 11.1 L, Hct 34.0 L, MCV 89.7, MCH 29.3, MCHC 32.6 L, RDW 15, Plt Count 157, MPV 9.4, Immature Gran % (Auto) 0.5, Neut % (Auto) 55.9, Lymph % (Auto) 30.5, Mccone % (Auto) 8.5, Eos % (Auto) 3.9, Baso % (Auto) 0.7, Lymph # (Au to) 1.3, Abs Immat Gran (auto) 0.0, Add Manual Diff No, Absolute Neutrophils 2.3, Monocytes # 0.4, Absolute Eosinophils 0.2, Absolute Basophils 0.0 07/11/20 14:46: PT 11.5, INR 1.1, PTT (Andra) 24.4 07/11/20 14:46: VBG pH (Temp Correct) 7.37, VBG pCO2 (Temp Corrct 48.6, VBG pO2 (Temp Corrct) 24.5 L, VBG HCO3 28.2 H, VBG Total CO2 29.7, VBG O2 Saturation 39.6 L, VBG Base Excess 2.3, FiO2 21 07/11/20 14:46: Sodium 139, Potassium 4.3, Chloride 107, Carbon Dioxide 27, Anion Gap 9, BUN 7 L, Creatinine 1.0, GFR Calculation Greater than 60, Glucose 331 H, Calcium 8.6, Magnesium 1.8, Total Bilirubin 0.6, AST 16, ALT 17, Alkaline Phosphatase 98, Troponin I Less than 0.015, Fjq-O-Hyozyexzzlu Pept 227.00 H, Serum Total Protein 7.3, Albumin 3.5 07/11/20 14:46: D-Dimer 0.99 H Microbiology 07/11/20 15:08 Nasopharyngeal Influenza-Like Illness (PCR) - Final Sars-Cov-2 Not Detected Influenza A Not Detected Influenza B Not Detected 07/11/20 15:08 Nasopharyngeal - Final EKG Data -: EKG Interpreted by Me EKG shows normal: sinus rhythm Rate: normal EKG Data Compared to previous EKG there's: no significant change EKG comments: Normal sinus rate of 74, axis normal, QTc 463, no acute ischemic changes, non-diagnostic for STEMI Medical Decision Making Free Text/Narative:: This is a pleasant 60M hx of Meryl CAAL on Eliquis, previously had AICD placed forhypertrophic CMY in [place], [place] in 2014, IDDM, HTN, CAD s/p PCI who recently was admitted and dx withendocarditis was transferred to [facility] and had his AICD removed May 2019 and is currently completing 6 weeks of abx presents today for cc of Syncopal episodes x3. He is unfortunately not the best historian. He tells me he was in his apartment earlier today and woke up on the ground. He is unsure of the time frame for this. He appears quite anxious during the interview and becomes tearful at time. He was then doing laundry shortly after with his significant other and told her he felt light headed and dizzy and collapsed in front of her who called EMS. Whenwe spoke to his SO, she informed us that the patient may not have been breathing for a brief period.EMS then arrived and he was sitting on the couch and had a third syncopal episode briefly before regaining consciousness. The patient denies experiencing chest pain, but states he has not felt wellall day and light headed. He forgot to take all his morning mediations today. His medication list has amiodarone listed, but he cannot verify if he is still taking this right now. He does admit to still being on eliquis. Additionally, of note, the patient was seen a 6 days ago in the ED for similar of feeling light headed and having experienced a syncopal episode. At that time, all his labs and EKG were unremarkable and he was discharged home. Recent echo: DATE OF TEST: 06/07/20 MEASUREMENTS: Aortic root 3.3 cm, left atrium 4 .4 cm, left ventricle in diastole is 4.7 cm, left ventricle in systole is 3.0 cm. FINDINGS: 1. There is mild left atrial enlargement. The right atrium, right ventricle, left ventricle and aortic root are of normal size. 2. Normal aortic and tricuspid valves. There was mild mitral annular calcification. 3. There is mild concentric left ventricular hypertrophy. There is some notable thickening of the septum at the outflow tract. The ejection fraction is 60%. 4. There was no pericardial effusion noted. A device lead is noted in the right atrium and right ventricle. COLOR FLOW AND SPECTRAL DOPPLER ANALYSIS: 1. The pressure gradient noted in the outflow tract with Valsalva is 88 mmHg. 2. There was trace tricuspid insufficiency. The right ventricular systolic pressure is 35 mmHg. CONCLUSIONS: 1. Hypertrophic obstructive cardiomyopathy with evidence for a moderate left ventricular outflow tract gradient with Valsalva as well as some evidence for systolic anterior motion of the mitral leaflet. This is difficult to see on the current study, however. 2. Normal left ventricular systolic function. 60M with hx of hypertrophic CMY presenting with multiple episodes of syncope in setting of having his AICD recently removed. Second visit for syncope which is concerning for underlying arrhythmia. Will check electrolytes, trop, d-dimer (although he is on Eliquis making PE highly unlikely), EKG and CXR. 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 I'm highly concerned about possible underlying arrhythmia he may be experiencing and he had his AICDrecently removed. EKG wnl, Qtc wnl. 0249: Discussed the case with Dr. Ferreira, cardiology, and relayed my concern who agrees that given the multiple recent syncopal episodes patient will need close monitoring on Tele. Dr. Ferreira graciously accepted patient to [facility] Cardiology for close monitoring. 1536: Dr. Mcdonald, , called and report given, accepted patient to [place]. Patient feels comfortableand would like to go to [place]. 1548: labs unremarkable including electrolytes, trop neg, CXR with cardiomegaly but without acute CPdisease. Has remained normal sinus on Tele. His D-dimer is slightly elevated, however, considering that the patient is on Eliquis, do not suspect a PE. D-dimer was ordered prior to me realizing that the patient was on Eliquis, therefore, its non-specific and was not perused any further. Patient transferred to [facility] in [place] for Cardiology services and possible invasive procedures/testing. Plan Visit Medications Administered ED medications:: Medications Discontinued Medications Generic Name Dose Route Start Last Admin Trade Name Freq PRN Reason Stop Dose Admin Sodium Chloride 1,000 mls @ 999 mls/hr 07/11/20 14:29 07/11/20 15:41 Ns 0.9% IV 07/11/20 15:29 Not Given .Q1H1M ONE Discharge Plan Admission/Discharge Dx Primary (Admit) Diagnosis: Syncope Primary DC Diagnosis: Syncope ED Provider: Mika Shaffer ED Status: Transfer Pending Time Seen by Provider: 07/11/20 14:29 Triaged At: 07/11/20 14:29 Discharge Detail Disposition: Transfer - [facility] Med Rec New Prescriptions: No Action Lantus Solostar U-100 Insulin 100 unit/mL (3 mL) insulin pen subcut RF: 0 insulin lispro 100 unit/mL insulin pen subcut RF: 0 famotidine 20 mg tablet 20 mg PO BID RF: 0 hydralazine 10 mg tablet 10 mg PO TID RF: 0 lisinopril 40 mg tablet 40 mg PO QDAY RF: 0 nitroglycerin 0.4 mg tablet, sublingual 0.4 mg sublingual Q5MIN PRN (Reason: Chest Pain) RF: 0 aspirin 81 mg Tablet,Chewable 81 mg PO DAILY RF: 0 carvedilol 25 mg Tablet 25 mg PO BID RF: 0 gabapentin 600 mg Tablet 600 mg PO TID RF: 0 tamsulosin 0.4 mg Capsule 0.4 mg PO DAILY RF: 0 metformin 1,000 mg Tablet 1,000 mg PO BID RF: 0 folic acid 1 mg Tablet 1 mg PO DAILY RF: 0 aripiprazole 5 mg Tablet 5 mg PO DAILY RF: 0 cholecalciferol (vitamin D3) 1,000 unit/drop Drops 25 mcg PO DAILY RF: 0 atorvastatin 40 mg tablet 40 mg PO DAILY RF: 0 cyanocobalamin (vitamin B-12) 500 mcg Tablet 500 mcg PO DAILY RF: 0 trazodone 100 mg Tablet 100 mg PO HS RF: 0 omega-3 fatty acids-vitamin E 1,000 mg Capsule 1,000 cap PO DAILY RF: 0 amiodarone 200 mg tablet 200 mg PO BID Qty: 60 RF: 0 (DME) pen needle, diabetic [BD Ultra-Fine Orig Pen Needle] 29 gauge x 1/2" needle See Rx Instructions .ROUTE .MEDSUPPLY Qty: 10 RF: 0 Eliquis 5 mg tablet 5 mg PO .QD RF: 0 Report Signers: <Electronically signed by Mika Shaffer MD> Mika Shaffer MD 07/11/20 1551 Mika Shaffer MD SIGNATURE DA Report Cosigners: D: NOOFA 07/11/20 1431 T: NOOFA 07/11/20 1431 CC: Jd Lal MD Name Value Range Interpretation Code Description Data Evelin rce(s) Supporting Document(s) ID Date Data Source [id number] 07/10/2020 12:43:00 PM [facility] Patient Name: JAGJIT IBARRA : 1960 Sex: M Pt Unit #: [id number] Location:[facility] Provider: Visit Date/Time: 07/10/20 Primary Insurance: [employer] MEDICARE Secondary Insurance: Self Pay Intake Vital Signs 07/10/20 12:54 Current Height 5 ft 11 in Current Weight 286 lb Weight Measurement Method Standing Scale BMI 39.9 BP 154/90 Blood Pressure Location Lt brachial Position Sitting Pulse 100 Pulse Strength Normal Pulse Source Pulse Oximeter Pulse Oximetry (%) 94 L Oxygen Delivery Method room air Intake Visit Reasons: Encounter to Establish Care Nurse Note: New Patient- Pt was hospitalized at [facility], transferred to [facility] and then to [facility] 06/21-06/23/20 for an infected defibrillator. Director Instructional Material Required: No Accompanied by: Self / Same as Patient Is patient in pain?: No Allergies cyclobenzaprine [From Flexeril] Adverse Reaction (Mild, Verified 07/10/20 13:15) Anxiety nifedipine [From Procardia] Adverse Reaction (Mild, Verified 07/10/20 13:15) Taste Changes prochlorperazine [From Compazine] Adverse Reaction (Mild, Verified 07/10/20 13:15) Anxiety Medications - Last Reconciled 07/10/20 by Jd Lal M.D. amiodarone 200 mg PO BID apixaban (Eliquis) 5 mg PO .QD aripiprazole 5 mg PO DAILY aspirin 81 mg PO DAILY atorvastatin 40 mg PO DAILY carvedilol 25 mg PO BID cholecalciferol (vitamin D3) 25 mcg PO DAILY cyanocobalamin (vitamin B-12) 500 mcg PO DAILY famotidine 20 mg PO BID folic acid 1 mg PO DAILY gabapentin 600 mg PO TID hydralazine 10 mg PO TID insulin glargine units subcut insulin lispro units subcut lisinopril 40 mg PO QDAY metformin 1,000 mg PO BID nitroglycerin 0.4 mg sublingual Q5MIN PRN omega-3 fatty acids-vitamin E 1,000 mg 1,000 caps PO DAILY pen needle, diabetic (BD Ultra-Fine Original Pen Needle) As directed tamsulosin 0.4 mg PO DAILY trazodone 100 mg PO HS Vision Wearing glasses?: No Fall Risk History of falls: No Ambulatory Aid:: None Gait/Transferring:: Normal Medications:: Antihypertensives HIV Testing Offer - ages 13-64 HIV testing Offer: No Requirement for HIV testing offer been met?: Patient reports past refusal Hep C Testing Offered: No Hep C Requirement met: Patient reports past refusal Do you need a note to return Do you need a note to return to daycare/school/sports/work: No Coronavirus Screening Screening Are you currently positive or on isolation for COVID ?: No Do you have any NEW signs of one or more of the following?: no symptoms Do you have NEW signs of at least two of the following?: no symptoms PFSH Medical History Anemia CAD (coronary artery disease) Chest pain Deep vein thrombosis Essential hypertension Cactus filter in place Hiatal hernia History of myocardial infarct at age less than 60 years Major depressive disorder Pacemaker Paroxysmal atrial fibrillation Raynaud's disease Spinal fusion failure Stroke Type 2 diabetes mellitus with hyperglycemia, with long-term current use of insulin Surgical History H/O knee surgery History of coronary artery stent placement Hx of neck surgery Family History Father Cancer Mother Cancer Brother Cancer MRSA (methicillin resistant Staphylococcus aureus) septicemia Brother No problems noted. Brother Heart disease History of coronary artery stent placement Brother No problems noted. Daughter No problems noted. Daughter No problems noted. Social History Does the Patient have a Healthcare Proxy: No Does Patient have a DNR?: No Does Patient have a Living Will?: No Does the Patient have a MOLST?: No Advance Directives on File or in chart?: Yes Hx Recent Travel (where): No Smoking Status: Former smoker HPI Additional HPI HPI Details: Patient came to the office for his initial evaluation. He has has a complicated medical past. He is a poorly controlled insulin requiring diabetic. He has a history of hypertension, CAD and paroxysmal atrial fibrillation. He also has a history of major depressive disorder and morbid obesity. He was recently identified with bacteremia. He had an AICD in place at that time with leads implanted in his heart. The entire apparatus had to be explanted including the leads. Patient has a PICC line in place for 6 weeks of IV antibiotics. Patient had seen a family practice provider until recently but given his medical complexity was suggested to come to this office. He complained of low back pain which is a chronic issue. Patient also has been receiving medical [facility] in [facility] [place]. Review of Systems Const Denies anorexia, Denies excessive sweating, Denies fatigue, Denies fev er(s), Denies headache(s), Denies weight gain and Denies weight loss Eyes Denies blurry vision, Denies change in vision, Denies dry eyes, Denies irritation, Denies itchy eyesand Denies loss of vision ENT Denies abnormal hearing, Denies dysphagia, Denies dizziness, Denies headache(s), Denies lip swelling, Denies nasal congestion, Denies nasal discharge, Reports neck pain, Denies disequilibrium,Denies sinus pain, Denies sore throat and Denies throat swelling Card Denies chest pain, Denies pedal edema, Denies lightheadedness, Denies palpitations and Denies dyspnea Resp Denies cough, Denies excessive phlegm production, Denies pain on inspiration, Denies dyspnea and Denies wheezing GI Denies abdominal pain, Denies change in bowel habits, Denies dysphagia, Denies early satiety, Deniesheartburn, Denies diarrhea, Denies nausea and Denies vomiting Denies difficulty urinating, Denies flank pain, Denies urinary frequency, Denies urinary incontinence and Denies urinary urgency Musc Reports back pain, Reports arthralgias (left shoulder), Denies limited range of motion, Denies muscle cramps, Denies muscle weakness and Reports neck pain Skin/Breast Denies change in pigmentation, Reports lesions (scratch virk from his pet), Denies nail changes andDenies rash Neuro Denies abnormal hearing, Denies dizziness, Denies headache(s), Denies loss of vision, Denies memory loss, Denies paresthesias and Denies disequilibrium Psych Denies abnormal sleep pattern, Denies anxiety, Denies change in appetite, Denies depression, Denies irritability and Denies memory loss Endo Denies cold intolerance, Denies excessive sweating, Denies fatigue, Denies polyphagia, Denies polydipsia, Denies polyuria and Denies palpitations Ravi/Lymph Reports easy bruising and Denies lymphadenopathy Aller/Immun Denies urticaria, Denies itchy eyes, Denies lip swelling, Denies seasonal rhinorrhea, Denies throat swelling and Denies wheezing Exam Const General: cooperative, healthy appearing, no acute distress, well developed and well groomed Nutritional Appearance: obese morbidly obese Orientation: alert and awake [facility] Head: normal to inspection, normocephalic, atraumatic and no scalp tenderness Ears: hearing grossly normal bilaterally, external ears normal, TM's normal bilaterally, EAC's normal and no periauricular adenopathy Eyes General: appearance normal, both eyes and all related structures Periorbital: periorbital findings normal Eyelids: eyelids normal Conjunctivae: conjunctivae normal Sclera: sclerae normal Pupils: PERRL EOM: EOM intact bilaterally Direct ophthalmoscopy: normal light reflex Neck Neck: normal visual inspection, full ROM, no lymphadenopathy, supple and no JVD present Neck mass: No Thyroid: thyroid normal Carotids: normal carotid upstroke Resp Effort Inspection: normal respiratory effort Auscultation: clear to auscultation bilaterally Percussion: percussion normal Cardio Jugular venous pressure: no JVD Palpation: normal PMI Rate: regular rate Rhy thm: regular rhythm Heart Sounds: S1 normal, S2 normal and murmur systolic soft and at the apex Pulses: normal peripheral pulses GI Inspection: Yes normal to inspection Palpation: soft, no hepatosplenomegaly, no aortic enlargement and nontender Percussion: normal to percussion Auscultation: normal bowel sounds Skin Lesions: lesion noted (Scratch virk on both arms and forearms) Rashes: no rashes Hair: normal Nails: normal Neuro General: patient alert, patient awake, gait normal, moves all extremities and normal light touch, pain and propioception Cognition: normal cognition Speech: speech normal Gait: normal gait Motor: muscle tone normal throughout and strength 5/5 throughout Sensory Exam: no sensory deficits noted Extrem General: normal to inspection, full ROM, capillary refill normal, no clubbing, cyanosis or edema andno muscle atrophy Psych Appearance: grossly normal and well kempt Mental Status: mental status grossly normal Speech and Movement: speech and movement normal Assessment Plan Assessment Plan (1) Encounter to establish care with new doctor: Code(s): Z76.89 - Persons encountering health services in other specified circumstances Mulugeta Lal M.D.: Initial office visit today. A comprehensive personal history was obtained from the patient and recorded on the chart. A comprehensive review of systems was performed followed by a comprehensive physical examination. The relevant findings are recorded on the chart. Available records were reviewed. (2) Type 2 diabetes mellitus with hyperglycemia, with long-term current use of insulin: Status: Acute Code(s): E11.65 - Type 2 diabetes mellitus with hyperglycemia; Z79.4 - prison (current) use of insulin SNOMED Code(s): 11506802 Category: Medical Plan - Jd Lal M.D.: Patient is a poorly controlled diabetic. His most recent A1c was 10. He is on a basal insulin as well as a bolus. He also is on oral antidiabetic medications. It is unclear to me given that the patient has been a diabetic for only a short period of time as to whether his diabetes can be controlled with a regimen without insulin. I will be discussing this further with the patient at subsequent visits. (3) Anemia: Status: Acute Code(s): D64.9 - Anemia, unspecified SNOMED Code(s): 662699379 Category: Medical Qualifiers: Anemia type: unspecified type Qualified Code(s): D64.9 - Anemia, unspecified Mulugeta Lal M.D.: Patient recently was noted to have developed sudden onset of anemia. This may be related to the sepsis/bacteremia. Hemoglobin and hematocrit will need to be periodically measured to verify resolution of this anemia. Orders: Orders: CBC W AUTO DIFF 2 Weeks (4) Major depressive disorder: Status: Acute Code(s): F32.9 - Major depressive disorder, single episode, unspecified SNOMED Code(s): 558617990 Category: Medical Qualifiers: Active/Remission status: in full remission Major depression recurrence: recurrent Qualified Code(s): F33.42 - Major depressive disorder, recurrent, in full remission Mulugeta Lal M.D.: Patient is on medication management for his major depression. He had no issues pertaining to this disease. (5) Paroxysmal atrial fibrillation: Status: Acute Comment: Cardioversion done twice in [place] Code(s): I48.0 - Paroxysmal atrial fibrillation SNOMED Code(s): 325718375 Category: Ness Lal M.D.: Patient has a history of paroxysmal atrial fibrillation. He claims that he has had cardioversion done on 2 occasions. He did not have any complains of palpitations or near syncopal spells. He hasbeen on amiodarone and Eliquis for this. He is going to be following up with the ingot caster on anongoing basis for this. (6) CAD (coronary artery disease): Status: Acute Code(s): I25.10 - Atherosclerotic heart disease of ewiiaapaayp coronary artery without angina pectoris SNOMED Code(s): 29391950 Category: Medical Qualifiers: Associated angina: without angina Coronary Disease- Associated Artery/Lesion type: ewiiaapaayp artery [place] vs. transplanted heart: ewiiaapaayp heart Qualified Code(s): I25.10 - Atherosclerotic heart disease of ewiiaapaayp coronary artery without angina pectoris Mulugeta Lal M.D.: Patient denied any symptoms of decompensated heart disease at this time. This is despite recent removal of his AICD. (7) Essential hypertension: Status: Acute Code(s): I10 - Essential (primary) hypertension SNOMED Code(s): 69620502 Category: Ness Lal M.D.: Blood pressure was noted to be marginally elevated. Patient was counse led to employ lifestyle measures to complement his medication regimen. This also will be closely monitored and the medication regimen will be titrated according to the Orders: Orders: CBC W AUTO DIFF 2 Weeks Additional Comments Additional Comments: Patient came for his annual patient. Will return at the end of 3 weeks for a recheck. Lab work has been requested before the next visit. This document was dictated using [employer] speech recognition software. A reasonable attempt to proofread has been made to minimize errors. Please call if you notice any errors or have any questions. Orders Follow Up: 2 Weeks (CAD) Time spent Total time spent on medical discussion: 60 Coding Level of Care Code New Pt Lvl 5 (60+min) Exam Detailed Diagnoses Encounter to establish care with new doctor Z76.89 Type 2 diabetes mellitus with hyperglycemia, with long-term current use of insulin E11.65; Z79.4 Anemia D64.9 Anemia type: unspecified type Major de pressive disorder F33.42 Active/Remission status: in full remission Major depression recurrence: recurrent Paroxysmal atrial fibrillation I48.0 CAD (coronary artery disease) I25.10 Associated angina: without angina Coronary Disease-Associated Artery/Lesion type: ewiiaapaayp artery [place] vs. transplanted heart: ewiiaapaayp heart Essential hypertension I10 Time Spent (min) 60 Comment Extremely complicated patient, complex medication regimen, uncontrolled diabetes <Electronically signed by Jd Lal MD> 07/12/20 1628 Name Value Range Interpretation Code Description Data Evelin rce(s) Supporting Document(s) ID Date Data Source [id number] 07/10/2020 10:56:00 AM EST [facility] [address] [place] [address] [phone] NAME SEX PT STATUS ACCOUNT NUMBER JAGJIT IBARRA REG REF [id number] ORDERING PHYSICIAN LOCATION MEDICAL RECORD NO. MADAI EDWARDS MD MRI [id number] ATTENDING PHYSICIAN DATE OF DATE OF EXAM/TIME Jd Lal MD 1960 07/10/20 / 1 TYPE / EXAM MRI Lumbar w w/o contrast REASON FOR EXAM WORSENING BACK PAIN, SPINAL HARDWARE RECENT STAPH AUREUS BACTER COMPARISON: None TECHNIQUE: MR images of the lumbar spine were acquired without and with IV contrast. FINDINGS: The patient is remotely post lumbar spinal fusion at L5-S1. On the basis of this study, there is noevidence of hardware complication or failure. Mild anterolisthesis of L5 is seen. This is a stable finding. SPINAL CORD: Normal. Conus terminates at the L1 level. DISKS: Lumbar spinal fusion is seen at L5-S1, where there is a prosthetic disc. Partial desiccationis seen at L2-3. Other intervertebral discs are grossly unremarkable. BONES: Vertebral body height and alignment are normal. Marrow signal is normal. SOFT TISSUES: Normal. Multilevel facet degenerative changes are seen, and this may contribute to mechanical back pain. The most significant spinal stenosis is seen at L4-5, where it is mild to moderate. The most significant foraminal narrowing is seen on the right at L3-4 and L4-5. Clinical correlation advised for possibility of radicular signs. OTHER FINDINGS: None. IMPRESSION: Remote lumbar spinal fusion. No vertebral compression deformity. Degenerative changes, as described. Reported By Reggie Kelly MD on 07/10/20 1056 Signed By Reggie Kelly MD on 07/10/20 1119 Date Time CC: Reggie Kelly MD; Jd Lal MD Techn: JOLEEN Trans Dt/Tm: Trans by: DT Prt Dt/Tm: 9477-5570: Total DLP = 0.00 mGy-cm 1359-0481: Total Radiation Dose = 0.0000 mSv Lifetime Dose: 35.1467 mSv Name Value Range Interpretation Code Description Data Evelin rce(s) Supporting Document(s) ID Date Data Source [id number] 07/05/2020 05:59:00 PM [facility] [address] [place] [address] [phone] NAME SEX PT STATUS ACCOUNT NUMBER JAGJIT IBARRA REG ER [id number] ORDERING PHYSICIAN LOCATION MEDICAL RECORD NO. Whit Cota MD ER [id number] ATTENDING PHYSICIAN DATE OF DATE OF EXAM/TIME Ida Alcantara NP 1960 07/05/201722 TYPE / EXAM Xray Chest One View REASON FOR EXAM L sided chest pain Clinical History/Indication for Exam: L sided chest pain Chest one view portable 07/05/2020 Clinical information: Left side chest pain Comparison: 06/13/2020 Technique: PA or AP view. Findings: Stable right central line. The prior left-sided multilead pacing and AICD device is no longer seen. There is notable for . Again identified are postoperative changes cervical spine. The heart size is normal. Pulmonary vascularity is normal. Lungs are clear of infiltrate, effusion, or pneumothorax. Impression: 1. No acute process in the chest. 2. Removal prior left-sided multilead pacing/AICD device. No pneumothorax. 3. Stable right central line. REPORT SIGNATURE ON FILE 07/05/2020 (17:59 Eastern Time ) Signed by: Walter Ahuja M.D. Reported By Walter Ahuja MD on 07/05/201758 Signed By Walter Ahuja MD on 07/05/201758 Date Time CC: Walter Ahuja MD; Ida Alcantara Techn: CUMME Trans Dt/Tm: Trans by: DT Prt Dt/Tm: 4315-5597: Total DLP = 1203.00 mGy-cm Fluoroscopy Time (in secs): Name Value Range Interpretation Code Description Data Evelin rce(s) Supporting Document(s) ID Date Data Source [id number] 07/05/2020 05:31:00 PM [facility] [address] [place] [address] [phone] NAME SEX PT STATUS ACCOUNT NUMBER JAGJIT IBARRA [facility] ER [id number] ORDERING PHYSICIAN LOCATION MEDICAL RECORD NO. Whit Cota MD ER [id number] ATTENDING PHYSICIAN DATE OF DATE OF EXAM/TIME Ida Alcantara NP 1960 07/05/201635 TYPE / EXAM CT Head without contrast REASON FOR EXAM syncope, possible head trauma on Eliquis Clinical History/Indication for Exam: syncope, possible head trauma on Eliquis CT brain without contrast 07/05/2020 Clinical information: Fall, head trauma, on Eliquis. Technique: Routine noncontrast CT brain. Comparison: None. Findings: There is no evidence of an acute intracranial hemorrhage or infarction in the brain. There is no midline shift, intracranial mass, or mass-effect. There is no extra-axial fluid collection or hydrocephalus. Visualized paranasal sinuses and mastoids appear clear. Impression: 1. No acute process in the brain. Automatic exposure control was used as a dose lowering technique. Radiation Dose: CTDI is 64.97 mGy. DLP is 1203 mGy-cm. REPORT SIGNATURE ON FILE 07/05/2020 (17:31 Eastern Time ) Signed by: Walter Ahuja M.D. Reported By Walter Ahuja MD on 07/05/201730 Signed By Walter Ahuja MD on 07/05/201730 Date Time CC: Walter Ahuja MD; Ida Alcantara Techn: SALEEMME Trans Dt/Tm: Trans by: DT Prt Dt/Tm: 7125-7085: Total DLP = 1203.00 mGy-cm 8687-2940: Total Radiation Dose = 3.7293 mSv Lifetime Dose: 35.1467 mSv Name Value Range Interpretation Code Description Data Evelin rce(s) Supporting Document(s) ID Date Data Source [id number] 07/10/2020 05:11:00 PM [facility] Special Instructions: Lab may order repe at test if initial test elevatedPhysician If elevated, reflex second test in 4-6 hrs Anticoagulant or Thrombolytic medication : Other Po Anticoagulant Name Value Range Interpretation Code Description Data Evelin rce(s) Supporting Document(s) Bacteria identified in Blood by Culture [facility] NO GROWTH AFTER 5 DAYS ID Date Data Source [id number] 07/05/2020 04:55:00 PM [facility] Special Instructions: Lab may order repe at test if initial test elevatedPhysician If elevated, reflex second test in 4-6 hrs Anticoagulant or Thrombolytic medication : Other Po Anticoagulant Name Value Range Interpretation Code Description Data Evelin rce(s) Supporting Document(s) Leukocytes [#/volume] in Blood by Automated count 6.6 10*3/uL 4.45-10 .71 N [facility] Erythrocytes [#/volume] in Blood by Automated count 3.63 10*6/uL 4.3-6.1 Below low normal [facility] Hemoglobin [Moles/volume] in Blood 10.7 g/dL 13-18 Below low no rmal [facility] Hematocrit [Volume Fraction] of Blood by Automated count 32.1 % 42-52 Below low normal [facility] Erythrocyte mean corpuscular volume [Ent itic volume] in Cord blood by Automated count 88.4 fL 80-[address] [facility] Erythrocyte mean corpuscular hemoglobin [Entitic mass] by Automated count 29.5 pg 27-31 N [facility] Erythrocyte mean corpuscular hemoglobin concentration [Mass/volume] in Cord blood 33.3 g/dL 33-[address] [facility] Erythrocyte distribution width [Entitic volume] by Automated count 14 % 11-15 N [facility] Platelets [#/volume] in Blood by Automated count 149 10*3/uL 130-472 N [facility] Platelet mean volume [Entitic volume] in Blood 10.2 fL 9.1-13.1 N [facility] Neutrophils/100 leukocytes in Blood by Automated count 60.1 % 41- 77 N [facility] Neutrophils [#/volume] in Blood by Automated count 4.0 U 1.7-7.6 N [facility] Lymphocytes/100 leukocytes in Blood by Automated count 28.9 % 14- 46 N [facility] Lymphocytes [#/volume] in Blood by Automated count 1.9 U 0.6-4.6 N [facility] Monocytes/100 leukocytes in Blood by Automated count 6.1 % 4-12 N [facility] Monocytes [#/volume] in Blood by Automated count 0.4 U 0.2-1.2 N [facility] Eosinophils/100 leukocytes in Blood by Automated count 3.8 % 0-7 N [facility] Eosinophils [#/volume] in Blood by Automated count 0.3 U 0.0-0.5 N [facility] Basophils/100 leukocytes in Blood by Automated count 0.6 % 0.4-1 .3 N [facility] Basophils [#/volume] in Blood by Automated count 0.0 U 0.0-0.2 N [facility] NUCLEATED RED BLOOD CELL 0 % [facility] NUCLEATED RED BLOOD CELL# [address] [facility] Immature granulocytes [Presence] in Blood by Automated count 0-2 N [facility] Immature granulocytes [#/volume] in Blood by Automated count 0.0 U 0-0.1 [facility] Manual Differential panel - Blood NO [facility] ID Date Data Source [id number] 07/05/2020 05:15:00 PM [facility] Special Instructions: Lab may order repe at test if initial test elevatedPhysician If elevated, reflex second test in 4-6 hrs Anticoagulant or Thrombolytic medication : Other Po Anticoagulant Name Value Range Interpretation Code Description Data Evelin rce(s) Supporting Document(s) Lactic w Rfx (if elevated) 2.1 mmol/L 0.5-2.0 [facility] Called to SHIRLEY Ayala @ 0654 by Iona Cha . Results read back. ID Date Data Source [id number] 07/05/2020 05:40:00 PM [facility] Special Instructions: Lab may order repe at test if initial test elevatedPhysician If elevated, reflex second test in 4-6 hrs Anticoagulant or Thrombolytic medication : Other Po Anticoagulant Name Value Range Interpretation Code Description Data Evelin rce(s) Supporting Document(s) Urea nitrogen [Mass/volume] in Serum or Plasma 16 mg/dL 9-23 N [facility] Sodium [Moles/volume] in Serum or Plasma 141 mmol/L 132-146 [facility] Potassium [Moles/volume] in Serum or Plasma 4.4 mmol/L 3.5-5.5 [facility] Chloride [Moles/volume] in Serum or Plasma 108 mmol/L 99-109 N [facility] Carbon dioxide, total [Moles/volume] in Serum or Plasma 29 mmol/L 20 -31 N [facility] Anion gap in Serum or Plasma 8 mmol/L 8-16 [facility] Glucose [Mass/volume] in Serum or Plasma 245 mg/dL 74-106 Above high normal [facility] Creatinine 1.0 mg/dL 0.5-1.1 [facility] Glomerular filtration rate/1.73 sq M.pre dicted [Volume Rate/Area] in Serum or Plasma Greater Than 60 ABOVE 60 [facility] [facility] Alan[facility] aminotransferase [Enzymatic acti vity/volume] in Serum or Plasma by With P-5'-P 15 U/L 10-[address] [facility] ital Aspartate aminotransferase [Enzymatic ac tivity/volume] in Serum or Plasma by With P-5'-P 16 U/L 0-33 N [facility] pital Alkaline phosphatase [Enzymatic activity/volume] in Serum or Plasma 105 U/L 45-129 N [facility] Calcium [Mass/volume] in Serum or Plasma 8.4 mg/dL 8.5-10.1 DL [facility] Repeated by: Iona Cha 07/05/20 1740. Result Confirmation: 8.5 mg/dL Bilirubin.total [Mass/volume] in Serum or Plasma 0.5 mg/dL 0.3-1.2 N [facility] Albumin [Mass/volume] in Serum or Plasma by Bromocresol purple (BCP) dye binding method 3.2 g/dL 3.2-4.[address] [facility] ital Protein [Mass/volume] in Serum or Plasma 6.7 g/dL 5.7-8.2 N [facility] ID Date Data Source [id number] 07/05/2020 05:52:00 PM [facility] Special Instructions: Lab may order repe at test if initial test elevatedPhysician If elevated, reflex second test in 4-6 hrs Anticoagulant or Thrombolytic medication : Other Po Anticoagulant Name Value Range Interpretation Code Description Data Evelin rce(s) Supporting Document(s) Prothrombin Time (Patient) 11.8 s 9.6-12.3 N [facility] INR 1.1 0.9-1.1 [facility] THE INR IS OPERATIONALLY DEFINED FOR RIKI SH PLASMA FROMPATIENTS STABILIZED ON ORAL ANTICOAGULANTS.ROUTINE ANTICOAGULANT THERAPY 2.0-3.0RECURRENT SYSTEMIC EMBOLISM/HEART VALVE REPLACEMENT 2.5-3.5 aPTT.lupus sensitive (LA screen) 26.1 s 22.7-31.6 N [facility] ID Date Data Source [id number] 07/05/2020 05:39:00 PM [facility] Name Value Range Interpretation Code Description Data Evelin rce(s) Supporting Document(s) Troponin I.cardiac [Mass/volume] in Serum or Plasma Less Than 0.015 0.00-0.09 N [facility] Less than 0.09 NG/ML Negative0.10 - 0.77 NG/ML High Risk0.78 NG/ML or Greater PositiveThe WHO defined the cutoff (definition for diagnosis of IA)for this method as 0.78 ng/ml. ID Date Data Source [id number] 07/05/2020 05:39:00 PM [facility] Name Value Range Interpretation Code Description Data Evelin rce(s) Supporting Document(s) Natriuretic peptide.B prohormone N-Terminal [Mass/volu me] in Serum or Plasma 303.00 pg/mL 0.00-[address] [facility] spital ID Date Data Source [id number] 07/05/2020 04:36:00 PM [facility] ED Physician Documentation NAME: JAGJIT IBARRA : 1960 AGE: 60 MR#: [id number] SERVICE DATE: 07/05/[address]: Whit Cota MD PRIMARY CARE DR: Ida Alcantara [employer] ROOM#: HPI (Adult, General) General Chief Complaint: Chest pain Stated Complaint: CHEST PAIN Resident LTC, travel outisde home, exposure to hot tubs:: No Time Seen by Provider: 07/05/20 16:24 Source: patient Exam Limitations: no limitations History of Present Illness Narrative: 60 yo man with CAD, AICD placement, DM, currently receiving Antibiotics via a PICC line in the RUE for MSSA endocarditis, BIBA after being found on the floor ofhis home apparently weak, d aminta and very confused. The patient does not remember how he got onto the floor. Allergies/Home Meds Allergies Allergy/AdvReac Type Severity Reaction Status Date / Time nifedipine [From Procardia] Allergy Mild Taste Verified 07/05/20 16:04 Changes cyclobenzaprine AdvReac Mild Anxiety Verified 07/05/20 16:04 [From Flexeril] prochlorperazine AdvReac Mild Anxiety Verified 07/05/20 16:04 [From Compazine] Home Medications Medication Instructions Recorded Confirmed Last Taken Type aspirin 81 mg PO DAILY 07/06/19 07/05/2007/05/21 History nitroglycerin 0.4 mg SUBLINGUAL Q5MIN PRN 07/06/19 07/05/20 05/29/20 13:30 History o.4 mg aripiprazole 5 mg PO DAILY 07/07/19 07/05/20 07/05/20 History atorvastatin 80 mg PO DAILY 07/07/19 07/05/20 07/05/20 History carvedilol 25 mg PO BID 07/07/19 07/05/20 07/05/20 History cholecalciferol (vitamin D3) 25 mcg PO DAILY 07/07/19 07/05/20 07/05/20 History duloxetine 60 mg PO DAILY 07/07/19 07/05/20 07/05/20 History folic acid 1 mg PO DAILY 07/07/19 07/05/20 07/05/20 History gabapentin 600 mg PO TID 07/07/19 07/05/20 07/05/20 History metformin 1,000 mg PO BID 07/07/19 07/05/20 07/05/20 History tamsulosin 0.4 mg PO DAILY 07/07/19 07/05/20 07/05/20 History Eliquis 5 mg PO BID 05/29/20 07/05/20 07/05/20 History amiodarone 200 mg PO BID #60 tab 05/31/20 07/05/20 07/05/20 Rx cyanocobalamin (vitamin B-12) 500 mcg PO DAILY 05/31/20 07/05/20 07/05/20 History omega-3 fatty acids-vitamin E 1,000 cap PO DAILY 05/31/20 07/05/20 07/05/20 History trazodone 100 mg PO HS 05/31/20 07/05/20 07/04/20 History pen needle, diabetic [BD #10 ea 06/01/20 07/05/20 Unknown Rx Ultra-Fine Orig Pen Needle] PMH (from Triage) Patient Medical History PMH Reviewed/Updated as Needed: Yes PMH/PSH from Triage: Medical History (Updated 07/05/20 @ 16:02 by Shirley Nash) Deep vein thrombosis (Medical) I82.409 Diabetes mellitus (Medical) E11.[address] (Medical) Z95.828 Hiatal hernia (Medical) K44.9 Hypertension (Medical) I10 Myocardial infarction (Medical) I21.9 Pacemaker (Medical) Z95.0 PACEMAKER REMOVED MAY 2020 DURE TO INFECTION Raynaud's disease (Medical) I73.00 Spinal fusion failure (Medical) T84.9XXA Stroke (Medical) I63.9 2016- received tpa Surgical History (Updated 07/06/19 @ 14:29 by Jayne Norman RN) H/O knee surgery (Surgical) Z98.890 Hx of heart artery stent (Surgical) Z95.5 Hx of neck surgery (Surgical) Z98.890 Hx Drug Resistant Infections Hx Other Resistant Infection?: No Isolation: Standard precautions Hx Recent Travel Out of the country within 10 days (where): No Hx Fever with a rash?: No Nurse screening for coronavirus: Recent Travel outside the No country (where) Has patient experienced No coronavirus symptoms Social History Are you in a relationship with/Does anyone hit you, yell/swear at you, steal from you?: No Substance Use Smoking Status: Former smoker Tobacco Use Years smoked:: 3 Hx Chewing Tobacco Use: No Vaccination History Hx/Date of Tetanus, Diphtheria Vaccination: Yes Hx/Date of Influenza Vaccination: Yes Hx/Date of Pneumococcal Vaccination: Yes ROS Review of Systems Constitutional: Reports weakness and malaise; Denies fever and chills ENT: Denies nasal discharge and throat pain Respiratory: Denies cough and SOB Cardiovascular: Reports chest pain and light headedness Gastrointestinal: Denies nausea, vomiting, abdominal pain and diarrhea Genitourinary-Male: Denies dysuria Musculoskeletal: Denies muscle pain and joint pain Skin/Breasts: Reports bruising Neurologic: Reports dizziness, lightheadedness and loss of consciousness; Denies weakness, numbness,change in speech and seizures Endocrine: Denies Loss of appetite Hematological/Lymphatic: Reports easy bleeding and easy bruising Allergic/Immunologic: Denies rash Physical Exam General Physical Exam Narrative: large obese man, awake and alert, no respiratory distress Limitations: no limitations General appearance: alert and in no apparent distress Head Head exam: Present atraumatic, normocephalic and normal inspection Eye Eye exam: Present normal apperance and EOMI; Absent scleral icterus and conjunctival injection ENT ENT exam: Present normal exam, normal orophraynx and mucous membranes moist Neck Neck exam: Present normal inspection and full ROM; Absent tenderness Respiratory Respiratory exam: Present normal lung sounds bilaterally, chest wall tenderness (L chest and L axillary) and other (bruising over L chest wall aicd site); Absent respiratory distress Cardiovascular Cardiovascular Exam: Present regular rate and normal rhythm GI/Abdominal GI/Abdominal exam: Present Abd soft, bowel sounds present all quadrents; Absent tenderness Extremities Exam Extremities exam: Present normal inspection and full ROM; Absent tenderness Back Exam Back exam: Present normal inspection and full ROM; Absent tenderness Neurological Exam Neurological exam: Present alert and oriented X3; Absent motor sensory deficit Psychiatric Psychiatric exam: Present normal affect and normal mood Skin Skin exam: Present warm, dry, intact and normal color Vital Signs Vital Signs: Vital Signs 07/05/20 15:44 07/05/20 19:37 Temperature 98.2 F 97.2 F L Pulse Rate 84 75 Respiratory Rate 16 18 Blood Pressure 159/88 165/109 O2 Sat by Pulse Oximetry 95 97 MDM (comprehensive) Lab Data Labs: 07/05/20 16:40 07/05/20 16:40 Laboratory Results Last 24 hours 07/05/20 16:40: WBC 6.6, RBC 3.63 L, Hgb 10.7 L, Hct 32.1 L, MCV 88.4, MCH 29.5, MCHC 33.3, RDW 14, Plt Count 149, MPV 10.2, Immature Gran % (Auto) 0.5, Neut % (Auto) 60.1, Lymph % (Auto) 28.9, Mccone %(Auto) 6.1, Eos % (Auto) 3.8, Baso % (Auto) 0.6, Lymph # (Auto) 1.9, Abs Immat Gran (auto) 0.0, Add Manual Diff No, Absolute Neutrophils 4.0, Monocytes # 0.4, Absolute Eosinophils 0.3, Absolute Basophils 0.0 07/05/20 16:40: PT 11.8, INR 1.1, PTT (Andra) 26.1 07/05/20 16:40: Sodium 141, Potassium 4.4, Chloride 108, Carbon Dioxide 29, Anion Gap 8, BUN 16, Creatinine 1.0, GFR Calculation Greater than 60, Glucose 245 H, Calcium 8.4 L D, Total Bilirubin 0.5, AST 16, ALT 15, Alkaline Phosphatase 105, Serum Total Protein 6.7, Albumin 3.2 07/05/20 16:40: Lactic Acid 2.1 07/05/20 16:40: Troponin I Less than 0.015, Efl-Y-Rrlmbasvtww Pept 303.00 H EKG Data -: EKG Interpreted by Me Radiology Data Radiology results: report reviewed Medical Decision Making Free Text/Narative:: The patient was evaluated for L sided chest and axillary pain associated with an episode of lightheadedness today. The PE was significant for normal vital signs with clear lungsand reproducible pain in the L lateral chest and L axillary area with bruising over the AICD site. Ekg was unremarkable. CXR had LETA. Labs significant for normal troponin, minimally elevated bnP and elevated blood glucose. The patient felt better after IVF. Plan Plan Plan: d/c home Plan of care: Plan of care discussed with patient and or family, Patient encouraged to ask questionsabout plan and Patient agrees with plan of care Visit Medications Administered ED medications:: Medications Discontinued Medications Generic Name Dose Route Start Last Admin Trade Name Freq PRN Reason Stop Dose Admin Sodium Chloride 1,000 mls @ 999 mls/hr 07/05/20 17:18 07/05/20 17:48 Ns 0.9% IV 07/05/20 18:18 999 mls/hr .Q1H1M ONE Administration Other Medications: Discontinued: amiodarone Discontinued Reason: Patient Reported 400 mg (2 x 200 mg) PO BID 24 tabs 0RF Discharge Plan Admission/Discharge Dx Primary DC Diagnosis: Dehydration, noncardiac chest pain ED Provider: Whit Cota ED Status: Discharged Time Seen by Provider: 07/05/20 16:24 Triaged At: 07/05/20 15:44 Condition Condition: Improved Discharge Detail Disposition: Home, Self-Care Med Rec New Prescriptions: No Action nitroglycerin 0.4 mg tablet, sublingual 0.4 mg sublingual Q5MIN PRN (Reason: Chest Pain) RF: 0 aspirin 81 mg Tablet,Chewable 81 mg PO DAILY RF: 0 atorvastatin 40 mg Tablet 80 mg PO DAILY RF: 0 carvedilol 25 mg Tablet 25 mg PO BID RF: 0 gabapentin 600 mg Tablet 600 mg PO TID RF: 0 tamsulosin 0.4 mg Capsule 0.4 mg PO DAILY RF: 0 metformin 1,000 mg Tablet 1,000 mg PO BID RF: 0 folic acid 1 mg Tablet 1 mg PO DAILY RF: 0 aripiprazole 5 mg Tablet 5 mg PO DAILY RF: 0 cholecalciferol (vitamin D3) 1,000 unit/drop Drops 25 mcg PO DAILY RF: 0 duloxetine 60 mg Capsule, Delayed Rel Sprinkle 60 mg PO DAILY RF: 0 Eliquis 5 mg Tablet 5 mg PO BID RF: 0 cyanocobalamin (vitamin B-12) 500 mcg Tablet 500 mcg PO DAILY RF: 0 trazodone 100 mg Tablet 100 mg PO HS RF: 0 omega-3 fatty acids-vitamin E 1,000 mg Capsule 1,000 cap PO DAILY RF: 0 amiodarone 200 mg tablet 200 mg PO BID Qty: 60 RF: 0 (DME) pen needle, diabetic [BD Ultra-Fine Orig Pen Needle] 29 gauge x 1/2" needle See Rx Instructions .ROUTE .MEDSUPPLY Qty: 10 RF: 0 Medications Medication reconciliation performed by provider at discharge: Yes Follow Up Care/Instructions Diet/Activity/Wound Care..: continue with improved hydration at home, primary care follow-up as needed *Discharge Patient* Discharge Orders: Discharge Order (Routine); Ordered 07/05/20 Ordered By: Whit Cota Discharge Date/Time: 07/05/20 19:41 Interventions Interventions: ED Discharge Instructions Last Done: 07/05/20 19:42 Report Signers: <Electronically signed by Whit Cota MD> Whti Cota MD 07/05/201999 Whit Cota MD SIGNATURE DA Report Cosigners: D: FLORENTIN 07/05/201635 T: FLORENTIN 07/05/201635 CC: Ida Alcantara Name Value Range Interpretation Code Description Data Evelin rce(s) Supporting Document(s) ID Date Data Source [id number] 06/23/2020 11:34:27 AM EST [facility] Name Value Range Interpretation Code Description Data Evelin rce(s) Supporting Document(s) POC NOVA GLU 306 mg/dL (70-99) H [facility] [place] PERFORMED BY [facility] CLINICAL STAFF ID Date Data Source [id number] 06/23/2020 11:31:55 AM EST [facility] NT INFORMATIONPatient MRN Name Date of Age Gend*PT [id number] Jagjit Ibarra 1960 60 years M IPPT Location Admission Date/Time Visit ID Attending ProviderCV-04 06/21/20 1444 --- Kathryn Adler MD([id number]) EPI ID CSN Admitting Provider [id number] Maury Treviño MD([id number]) [facility] DISCHARGE SUMMARYPatient Name: Jagjit Ibarra of : 1960 Age 60 yearsPrimary Physician: Adonis Carballo MD PCP Cbfdfhdvu Date: 06/21/2020 Discharge Date:He will be discharged from [facility] to home.Discharge Diagnoses:Principal Problem: Infected defibrillatorActive Problems: Essential hypertension Type 2 diabetes mellitus Coronary artery disease due to lipid rich plaque Hyperlipidemia Paroxysmal atrial fibrillationResolved Problems: Infected defibrillatorDischarge Medications:Current Discharge Medication ListCONTINUE these medications which have CHANGED DetailsARIPiprazole (ABILIFY) 5 MG tablet Take 1 tablet (5 mg total) by mouth dailyCONTINUE these medications which have NOT CHANGED Detailsacetaminophen (TYLENOL) 500 MG tablet Take 1,000 mg by mouth every 6 (six) hoursas needed for painamiodarone (PACERONE) 200 MG tablet Take 200 mg by mouth 2 (two) times a dayApixaban (ELIQUIS) 5 MG TABS tablet Take 5 mg by mouth dailyaspirin 81 MG chewable tablet Chew 1 tablet (81 mg total) dailyatorvastatin (LIPITOR) 40 MG tablet Take 1 tablet (40 mg total) by mouth nightlyPPSSQty: 30 tablet, Refills: 0carvedilol (COREG) 25 MG tablet Take 25 mg by mouth 2 (two) times a dayfamotidine (PEPCID) 20 MG tablet Take 20 mg by mouth 2 (two) times a dayfolic acid (FOLVITE) 1 MG tablet Take 1 mg by mouth dailygabapentin (NEURONTIN) 600 MG tablet Take 600 mg by mouth 3 (three) times a dayhydrALAZINE (APRESOLINE) 10 MG tablet Take 1 tablet (10 mg total) by mouth 3(three) times a day PPSSQty: 90 tablet, Refills: 0insulin glargine (LANTUS) 100 UNIT/ML injection Inject 35 Units under the skinnightlyinsulin lispro (HUMALOG) 100 UNIT/ML injection Inject 7 Units under the skin 3(three) times a day before mealslisinopril (PRINIVIL,ZESTRIL) 40 MG tablet Take 40 mg by mouth dailym etFORMIN (GLUCOPHAGE) 1000 MG tablet Take 1,000 mg by mouth 2 (two) times a daywith mealsnitroglycerin (NITROSTAT) 0.[address] 1 tablet (0.4 mg total) underthe tongue every 5 (five) minutes as needed for chest pain PPSSQty: 25 tablet, Refills: 0Omega-3 Fatty Acids (FISH OIL) 1000 MG CAPS Take 1 tablet by mouth dailyFollow Up Instructions:The patient was given an after visit summary.Items needing special attention:Complete course of antibiotics, Cefazolin 2g IV q8h for [facility] daysFollow[facility] Course:Jagjit Ibarra is a 60 year old male with a PMH of CAD, PAF, HTN, HLD, DMII [facility], MSSA bacteremia. Had a TTE at [facility] showing small vegetation on the ICD lead. He was sent fordevice extraction. Had device extraction performed by Dr. Dietz on06/22/20. Asked for ID consult for antibiotic recommendations, recommended totalof 28 days following device removal. Discussed with Dr. Carranza, ready for dischargewith followup with Francoise Nunn.Discharge Exam:Blood Pressure: BP: 129/73 Pulse: Heart Rate: 62Temperature: Temp: 97.3 F Respirations: Resp: 14Admission Weight: Weight: (!) 127.9 kg (282 lb) O2 Saturation: SpO2: 98 %Discharge Weight: Weight: (!) 127.9 kg (282 lb) BMI: Body mass index is 38.25kg/m .Physical Exam General alert, cooperative, in no apparent distress HEENT PERRLA, EOMI, fundi benign Lungs clear to auscultation Heart regular rate and rhythm and without murmur Abdomen soft, non-tender, non-distended, no organomegaly or masses Musculoskeletal negative Neuro normal without focal findings and PERLAOther Pertinent Findings: NoneDiagnostics:Procedures:ICD device extractionConsultants:EPIDRecent Labs:BMP:Lab ResultsComponent Value Date NA 134 (L) 06/23/2020 K 4.2 06/23/2020 CL 101 06/23/2020 CO2 27 06/23/2020 ANIONGAP 6 (L) 06/23/2020 CALCIUM 9.3 06/23/2020 GLU 266 (H) 06/23/2020 BUN 18 06/23/2020 CREATININE 1.16 06/23/2020 GFRAA >60 06/23/2020 GFRNONAA >60 06/23/2020ardiac:Lab ResultsComponent Value Date TROPONINI <0.05 07/09/2019CBC with Diff:Lab ResultsComponent Value Date WBC 11.2 (H) 06/23/2020 RBC 3.90 (L) 06/23/2020 HGB 11.9 (L) 06/23/2020 HCT 33.2 (L) 06/23/2020 MCV 85.2 06/23/2020 MCH 30.6 06/23/2020 MCHC 35.9 06/23/2020 RDW 13.1 06/23/2020 PLT 276 06/23/2020 MPV 8.2 06/23/2020Kathryn Adler MD10:49 AMTotal time spent for discharge on date of discharge: 45 minutes Name Value Range Interpretation Code Description Data Evelin rce(s) Supporting Document(s) ID Date Data Source [id number] 06/23/2020 10:22:20 AM EST Name Value Range Interpretation Code Description Data Evelin rce(s) Supporting Document(s) Progress Notes [facility] WNXEZy6mYoQZWpIy62/BWUsdXLEwy2BgVQrjPDf7HKxfEXRgW4DaDFW9bY2uJYW0GNfXTmKxDnGlUSV2 lbm [file] AgICAgICAgICAgICAgICAgICAgICAgICAgICAgICAg ICAgICAgICAgICAgICAgICAgICAgICAgICAgICAgICAgICAgICAgICAgICAgICAgICAgICAgICAgICAg IGKmGC1CNISjFMJzISAkVDDySEKpDUXaEBCsWQDhXRWlVDVvPBMjYSSqLSYqJEGfHQYpAPDqDKIrQQEu ICAgICAgICAgICAgICAgICAgICAgICAgICAgICAgIC ThPSGnSEBzAIViUOIcNA2HUZFuUODgUYTtSXQdJCOiGCZwXYSpOTBvROApLWIuTJMyDXStNSIpEJJjNT DjEWYvGPBvFAKlFVIgTIHbHLNyNQWjGSUbYUYsKKOeOGCnZLOoCTKhKVLsLIRqYVAdHAXaJUUcQJ0VVT AgICAgICAgICAgICAgICAgICAgICAgICAgICAgICAg ICAgICAgICAgICAgICAgICAgICAgICAgICAgICAgICAgICAgICAgICAgICAgICAgICAgICAgICAgICAg AHGpWNMjHG4GPIZlURRdPSHwGSFcAEHlHNHaVYHfZBZgISOzQKApVVJqSJNuCMQdJETrMIWiLEExCTPc ICAgICAgICAgICAgICAgICAgICAgICAgICAgICAgIC GxHHBaUQNlLUJjXMBuRDLaSW0ALLOnEXKkIPRsUBPlXREhDSZuIABbOOWmBIVwQKRiTIHnOEVmMOEoAY AgICAgICAgICAgICAgICAgICAgICAgICAgICAgICAgICAgICAgICAgICAgICAgICAgICAgICAgICAgIA 0KICAgICAgICAgICAgICAgICAgICAgICAgICAgICAg ICAgICAgICAgICAgICAgICAgICAgICAgICAgICAgICAgICAgICAgICAgICAgICAgICAgICAgICAgICAg DZLjSKGvBAPlLT8DRPCyMVXeJEEbSQFgMNVyFIItEJCnKJWzODPlKOFuYBQaTVYwIIMiTXZcZRIhAWYd ICAgICAgICAgICAgICAgICAgICAgICAgICAgICAgIC XgSYOpDBHtNYJzAZAmLUVcBJIcOP0XYGCeMVDbQEGgJZZdSOAdRFUhPYFdNYVfQLNtCIGwVZRnZYKuYR AgICAgICAgICAgICAgICAgICAgICAgICAgICAgICAgICAgICAgICAgICAgICAgICAgICAgICAgICAgIC GxCU1KBR56mUMho7I7MZDtLS6joij/Le7NLAfcjcUk fJYmCU0JIiGmZV2fyg9NStTcCW3anw2TKTdSIiWeA4B2bFIvADLzDNFSZaQvI73eKRlbJl48GMehKAMm EtCcFDy3Sm2QFcWbM0inDWOgDlZ8LALtMfF6NELqEcO0XSVaRmNbAPwmJN6Wx6MaeNYfAPm+Ti3CSV4i c2LvJGfwUjJfCK4zyi4STYxBZvXiR2GybeW0PTQ3AR JmCp9HFSOaAXHdkCYyZMInQWQNQgDmJ4FoqQ01JUQSTz4+FZjwcwRhNzsKJoG0TLVpe1VcVIy7ZG4HIE DoETa5wDGuIHYnA8Dtg8OdVk46CRZhWsvbH4HeYMPUpCoasnbhRPIgVBVsJZ5xYq2tGKJlJEOlVnA7ZG PAEU2UDWCyZHJugXLqHEQaGBOSMJ5TPJrbMUY4Lwhn bbNrlXPjWPscUV6EIWXjztLoXzHgNCIRFJj+Fn9AFQ5da8UkURcfLAOkXY0kgi0EIGoIVwQjZ9A9uSGl K1Q2FZlcSg7WXPDsPOIsFvUzSLSIVUtqZC3IWR0cfqP5CT3GyJEhEZIdYXCjyGJdZSc1D94bwMZaFPok MX1WDHL+Yadira+Nn6HWCJiUAVcKHMwPzIoEURTTsIjQ7 WwU9RUa0XmE1XzIP38gSdjbmKjNEdvXM6ZQK9gHEUwLJOSEZ4BzHEdxQ3zvaVwIuSoWHRZBjOzQ68fkE OyQYDsLTYqHITdNe6CRBQqW4MueuXgbIqhdeUcZQEbBBWHXK0AUAghtfUasLCfcCvvOP82xWnyPL4QSd 3CMePjGB7kub3WyUSjZv7CNPVbRe8MKDVbFWOxYAHn TTP4WDMaVvCtMUazQVQsPGGpBUY6QBRfUWQnFW2AJvHkXBOiQYh4TJOrSFOoEHVudn1QTOHjCSYoAUXl ImXmIBMsMFCcENasGACqVQKpLKV3VSPoUVIdGX1PZtIoFFByOCP1ISooQHFgYYTvcu4NJFGmGKZzIdtf NpQyAHLzZDHzJCjgJANzGLI9QKHgKSHbISIgML7MSl QyFZHbGGvtWFxjIJHtGIHsvx0EMEAdXVUwSDfzExSiMPGbTUQoKLmxWMEdEBW6AUOdWJTdUYRaPM7QDb VmDFMnWQg7LfryDZEfJJDwsp3HZWTqYYJdYKD9WOXcCHIrEXHvNDzuTKNxWLJkOfI4DORlWSPcVK9XGw UpERWhSJOfFghzDNQgGMAqvy1KCNIsUMOvJVWwRzQw WIZdHEPeMMvuMAEpJZCsNnG1MEHaXDHfZF5CZaMmFCEbINZ6BgiaMZSzYULace1MWTMaAAIaXhz2TQKj XHFeEUVyHNleVWDbRGLgWFWyXUAiUDEoPU6EYxYxARZnCSYmVCBbYGZiHWOuiv7WWKEeOIXyTGZtOKJs AOWdFPMzNGwmONDaGMB6EFF2XAMaVKXvEH4XMsVzUQ GxYTNzFgylICIhLNUtmo5JMIYnVRVpAVQ1WXWiHGMqVUGnXOjvNSDuXCG7RaGoPZLgJGLtKJ9PDhSiFL QcYBF4ZTVbFDDxMHDeju8RAMObXJRlRvdgRtIhDACwCGKxIIioOZSeZZC8MFTeCHKrZCHdYT5LKdOnAL SgSFuqFASqQEYdJSBwnz2QJHHqAXXnLNU3MWQcCMKo ATOyRMhkLZJlWTD9JJnkQEHnTELySE9LRuBiFOMjGPj9GjEjFSPyBXPaen1SMADxINWdEKExMaWkJVLm UUBtONvcDGFnVEDmXQx0ZPPkOCHdPZ1UFwVaTWBpXoK7ZKPoJUSjEHOmqk7NlXDqvTifkf3ZPYxRRi2T vPlaSRI0HNhrQt9ajJBvSYQfKSGVBv0CifYjHAZjZN JEMQymSXZlTRJvU2XiIyDcM1E3JPB2QIbjWXW8QkS1U0NxTsH4SxQuTxB4VxW6GnApQCC9Okl3VII3Is Q5VyL9IEe8CwJoToDdCCQ+MF1eAOc+Zu7Rz0EalmT9ddSmLHebCOo2Hw9AIUFJN0ZPBp== ID Date Data Source [id number] 06/23/2020 10:17:46 AM EST [facility] NT INFORMATIONPatient MRN Name Date of Age Gend*PT [id number] Fred Jagjit 1960 60 years M IPPT Location Admission Date/Time Visit ID Attending ProviderCV-06/21/20 1444 --- Kathryn Adler MD([id number]) EPI ID CSN Admitting Provider [id number] Maury Treviño MD([id number])Infectious Disease ConsultationAdmitted: 06/21/2020ate: 06/23/2020Impression: 60-year-old man diagnosed about 2 weeks ago with staph aureusbacteremia that turned out to be related to an AICD infection. The device hasbeen removed and he is tolerating cefazolin quite well. Since he is already isreceived about 2 weeks of antibiotics, I think we could give him another 4 weeksto complete therapy.Recommendations:1. Continue cefazolin for 28 days following device removal. Today would be day#1. The current dose of 2 g IV every 8 hours is appropriate.2. [facility]. The patient will therefore not be [facility].I discussed the case with Dr. Adler. I also counseled the patient abouthis diagnosis and what to expect. Please call with further questions.Elisa Zuniga MD Georgiana peck Complaint: Asked by Dr. Adler to help manage an AICD infectionHistory of Present Illness: 60 years old male who had an AICD placed in 2014.Earlier this month he developed general malaise and chest pain. [facility] at which time4 sets of blood cultures grew MSSA. He was begun on cefazolin [facility] [place] [facility]. The DANIELE showed a verysmall vegetation on the ICD lead. Because of this he was referred here fordevice extraction. Dr. Jeffrey Fuentes did this on 06/22/20 (yesterday). Theprocedure was without complications. I am asked to recommend an appropriateduration of IV cefazolin.The patient is feeling well. Denies any difficulty with cefazolin. Donnie. He [facility] from [facility] [place], who apparently will be providinghis home IV antibiotics after discharge. Apparently he already had someinstruction regarding home cefazolin while he was at [facility].The patient has type 2 diabetes. He says he has not been checking his bloodsugars at home and that his diabetes had not been well controlled prior to thesehospitalizations. He also [facility] He stopped because he was not feeling well. He says he isabsolutely sure he will not go back to cigarettes at this point.Past Medical History:Diagnosis Date Anxiety Atrial fibrillation Costochondritis Depression Diabetes mellitus Hypertension Neuropathy Pulmonary embolism Septic arthritis of knee, right required surgeryPast Surgical History:Procedure Laterality Date BACK SURGERY Lumbar disc surgery, cervical disc surgery CARDIAC CATHETERIZATION N/A 10/16/2018 Procedure: Add-On Cardiac Cath; Surgeon: Whit Magana MD; Laterality: N/A; CARDIAC CATHETERIZATION N/A 07/08/2019 Procedure: Cardiac catheterization; Surgeon: Kathy Mei MD; Laterality:N/A; CARDIAC DEFIBRILLATOR PLACEMENT CARDIAC DEFIBRILLATOR REMOVAL 06/22/2020 Dr. Dietz CORONARY ANGIOPLASTY WITH STENT PLACEMENT records not available IR IVC FILTER PLACEMENT knee surgery TONSILLECTOMYAllergiesAllergen Reactions Compazine [Prochlorperazine Edisylate] Other (See Comments) "Infection, sores in my mouth." Procardia [Nifedipine] Other (See Comments) "Infection in my mouth" Flexeril [Cyclobenzaprine] AnxietyScheduled Meds: amiodarone 200 mg Oral BID ARIPiprazole 5 mg Oral Daily aspirin 81 mg Oral Daily atorvastatin 40 mg Oral Nightly carvedilol 25 mg Oral BID ceFAZolin (ANCEF) IV 2 g Intravenous Q8H enoxaparin (LOVENOX) injection for DVT/PE prophylaxis 40 mg Subcutaneous Q24H famotidine 20 mg Oral BID FLUoxetine 40 mg Oral Daily folic acid 1 mg Oral Daily insulin glargine 10 Units Subcutaneous Daily insulin lispro 1-12 Units Subcutaneous With meals sliding scale lisinopril 10 mg Oral Daily normal saline flush 3 mL Intravenous Q8H [facility] normal saline flush 3 mL Intravenous Per ProtocolFamily History: family history includes Heart disease in his father and mother.Social History:The patient is originally from [place]. He spent a number of years in [place]. He now lives [place] [facility] where some of his family is originallyfrom. He lives alone. He quit smoking earlier this month. Drinks alcohol only"on sundays". No drug use.Review of Systems: A complete 14 point review of systems was negative.Physical Exam:Temp: [97.3 F-98.1 F] 97.3 FHeart Rate: [62-87] 62Resp: [13-24] 14BP: (128-166)/(73-103) 129/73Temp (24hrs), Av.8 F, Min:97.3 F, Max:98.1 FBody mass index is 38.25 kg/m .Pleasant, comfortable, not in acute distress.Awake, alert, oriented times 3.Moves all extremities.Eyes: negative findings: conjunctivae and sclerae normalThroat: Teeth in extremely poor repair. No oral mucosal lesions.Lungs: Clear to auscultation bilaterally.Chest wall: Dressing is intact over the surgical site in the left upper chest.No associated tenderness or erythema.Heart: Regular rate and rhythm with a 2/6 systolic murmur loudest at the apexAbdomen: soft, non-tender; bowel sounds normal; no masses, no organomegalyExtremities: No edema.Skin: No rash or lumps.Neurologic: Grossly normalLabs:Results from last 7 daysLab Units 06/22/2104WBC 10*3/uL 11.2* 5.8HEMATOCRIT % 33.2* 31.5*BUN mg/dL 18 17CREATININE mg/dL 1.16 0.96Estimated Creatinine Clearance: 94.8 mL/min (based on SCr of 1.16 mg/dL).4 sets of blood cultures obtained on 06/07/[address] [facility] [place] grew MSSA.Follow-up blood cultures were negative.Imaging: Chest x-ray shows cardiomegaly with possible mild vascular congestion.Echocardiogram: Consistent with hypertrophic cardiomyopathy without obstruction.No vegetations noted on the tricuspid valve Name Value Range Interpretation Code Description Data Evelin rce(s) Supporting Document(s) ID Date Data Source [id number] 06/23/2020 07:40:17 AM EST [facility] Name Value Range Interpretation Code Description Data Evelin rce(s) Supporting Document(s) POC NOVA GLU 286 mg/dL (70-99) H [facility] CLINICAL STAFF ID Date Data Source [id number] 06/23/2020 07:35:48 AM EST [facility] Name Value Range Interpretation Code Description Data Evelin rce(s) Supporting Document(s) SODIUM 134 mmol/L (136-145) L [facility] POTASSIUM 4.2 mmol/L (3.6-5.2) [facility] CHLORIDE 101 mmol/L (100-108) [facility] CO2 27 mmol/L (22-31) [facility] ANION GAP 6 mmol/L (7-16) L [facility] UREA NITROGEN 18 mg/dL (7-24) [facility] CREATININE 1.16 mg/dL (0.80-1.30) [facility] BUN/CREAT RATIO 15.5 RATIO (10.0-20.0) [facility] GLUCOSE 266 mg/dL (70-99) H [facility] CALCIUM 9.3 mg/dL (8.4-10.2) [facility] GFR >60 ml/min/1.73m2 (>59) [facility] GFR ( AM) >60 ml/min/1.73m2 (>59) [facility] GFR INTERPRETATION [facility] --NORMAL KIDNEY FUNCTION OR MILD DISEASE - GFR >OR= 60CHRONIC KIDNEY DISEASE - GFR 15 - 59RENAL FAILURE - GFR <15 Est. GFR calculation based on the MDRDstudy equation, which assumes a steadystate for creatinine. Est. GFR should notbe used for medication dosing. ID Date Data Source [id number] 06/23/2020 07:03:32 AM EST [facility] Name Value Range Interpretation Code Description Data [facility](s) Supporting Document(s) WBC 11.2 10*3/uL (4.1-11.0) H [facility] RBC 3.90 10*6/uL (4.60-6.10) L [facility] HGB 11.9 g/dL (13.5-18.0) L [facility] HCT 33.2 % (41.0-53.0) L [facility] MCV 85.2 fL (80.0-95.0) [facility] MCH 30.6 pg (27.0-32.0) [facility] MCHC 35.9 g/dL (32.0-36.0) [facility] RDW 13.1 % (10.5-14.5) [facility] PLT 276 10*3/uL (150-450) [facility] MPV 8.2 fL (7.1-10.7) [facility] ID Date Data Source [id number] 06/22/2020 04:59:35 PM EST [facility] Name Value Range Interpretation Code Description Data Evelin rce(s) Supporting Document(s) POC NOVA GLU 199 mg/dL (70-99) H [facility] [place] [facility] CLINICAL STAFF ID Date Data Source [id number] 06/22/2020 02:58:26 PM EST [address] [address]Vqhwjix Name: JAGJIT ANDERSONINTDOB: 1960ex: MOrdering Provider: DILLON Shaikh Prov: DILLON Benitez Provider: Procedure Performed: XR CHEST PORTABLEExam Date: 06/22/2020 14:46MRN: [id number] Number: [id number] Class: InpatientAccount #: [id number] for Exam: extractionTechnique: AP portable view obtained.Comparison: July 07, 2019Findings: Previously seen cardiac device is no longer visualized. No pneumothorax. There is a right-sided PICC with its tip in the SVC about 2 cm from the expected location of the cavoatrial junction. Hilar structures are slightly prominent and indistinct which may indicate central vascular congestion. Lung volumes are low. There is some parenchymal density at the left lung base. No readily apparent pleural effusion. Cardiomegaly. Mildly tortuous aorta.IMPRESSION: Cardiac device has been removed. No pneumothorax.Question central vascular congestion.Left basilar atelectasis versus pneumonia.Cardiomegaly.Report electronically signed by: MARGARITO REVELES On 06/22/2020 2:58 PMWorkstation ID: [id number] Name Value Range Interpretation Code Description Data Evelin rce(s) Supporting Document(s) ID Date Data Source [id number] 06/22/2020 02:27:02 PM EST [facility] Name Value Range Interpretation Code Description Data Evelin rce(s) Supporting Document(s) XR FLUORO UP TO 1 HR [facility] ID Date Data Source [id number] 06/22/2020 02:21:56 PM EST [facility] CenterPAT[facility] NT INFORMATIONPatient MRN Name Date of Age Gend*PT [id number] Jagjit Ibarra 1960 60 years M IPPT Location Admission Date/Time Visit ID [facility] 1444 --- Kathryn Adler MD([id number]) EPI ID CSN Admitting Provider [id number] Maury Treviño MD([id number]) Operative ReportPatient Name: Jagjit Ibarra Date of : 1960Gender: male Age:60yearsMedical Record Number: [id number] Date: 06/22/20Electrophysiologist: Dillon Fuentes MDAssistants: NoneProcedure: ICD system extractionPre-operative Diagnosis: Infected ICD systemPost Operative Diagnosis: SameAnesthesia: GETALines: right femoral venous sheath with placement of bridge balloon right radial arterial lineImaging: Fluoroscopy TEESurgical Back Up: DR. Zafar Loss: MinimalHistory: The patient is a 60 years male with a history of a cardiomyopathy wasa dual-chamber ICD and who presents with an infected ICD systemProcedure: Informed consent was obtained. Formal surgical backup was obtained.The patient was brought to the operating room and intubated. A Transesophagealecho probe was advanced into the posterior pharynx to allow for continuous TEEvisualization. A radial arterial line was placed. A Right femoral venous sheathwas placed. Through the femoral she a SVC bridge balloon was advanced over aguidewire under fluoroscopic guidance into the SVC. The balloon was theninflated in the position was marked. The balloon was then deflated and pulledback over the wire into the IVC ready to be deployed if needed. IV antibioticswere given preoperatively. The patient was prepped and draped in usual sterilefashion. Incision was made over the defibrillator. The pocket was opened. TheICD was disconnected and removed. Dissection to the suture sleeve of the ICDlead and the atrial pacing lead was performed. The tiedown sutures were cut andremoved. Both leads were cut and stripped. Lead locking devices were placedinto each leads. In addition a bulldog was placed over the cables for the coilof the ICD lead. This was secured with a 1 silk tie. Using a 13 Monegasque sub-Cmechanical sheath the binding sites over the atrial lead followed by the rightventricular lead were dissected through. Next using a 16 Monegasque laser sheaththe right atrial lead was extracted in its entirety. Using the same 16 Frenchlaser sheath the ICD lead was extracted in its entirety. A portion of thepocket was sent for culture. Both lead tips were sent for culture. The pocketwas closed with 2-0 Vicryl. The skin was closed with Monocryl in a subcuticularfashion. Dermabond was applied. Next the bridge balloon was removed from thefemoral vein. The femoral venous sheath was removed and hemostasis wasmaintained with a [id number]-riemk stitchTransesophageal ECHO Visualization: Continuous Transesophageal ECHO wasperformed from the onset of the procedure until its completion at no time wasthere any evidence of a pleural effusion, tamponade, a pericardial effusion,valvular avulsion and/or an embolic event. The DANIELE was considered unchangedfrom the onset of the procedure until its completion.Replaced Device Data: See implant recordSpecimens: ICD pocket, ICD lead, right atrial pacing leadComplications: NoneConclusion:Successful dual- chamber ICD system extractionOperative cultures have been sent and are pendingSignature: Dillon Dietz MD, [facility], [facility] CENTERCardiac Electrophysiology and Arrhythmia ServiceDate: 06/22/2020Time: 2:17 PMThis document or parts of this document, were dictated using SQLstreamware. A reasonable attempt at proofreading has been made to minimize errors.Please call with any questions or corrections. Name Value Range Interpretation Code Description Data Evelin rce(s) Supporting Document(s) ID Date Data Source [id number] 06/22/2020 02:11:49 PM EST [facility] Name Value Range Interpretation Code Description Data Evelin rce(s) Supporting Document(s) &PDF [facility] BQXDUt6jPqXPPoJq75/XOUzqVJMqg6RxDGetGPj3FVqeJFNzC2QsvPzuSROKHT0OTVfNV3aWJI0vGG7o pYy [file] ICAgICAgICAgICAgICAgICAgICAgICAgICAgICAgICAgICAgICAgICAgICAgICAgICANCiAgICAgICAg ICAgICAgICAgICAgICAgICAgICAgICAgICAgICAgIC AgICAgICAgICAgICAgICAgICAgICAgICAgICAgICAgICAgICAgICAgICAgICAgICAgICAgICAgICAgIC ANCiAgICAgICAgICAgICAgICAgICAgICAgICAgICAgICAgICAgICAgICAgICAgICAgICAgICAgICAgIC AgICAgICAgICAgICAgICAgICAgICAgICAgICAgICAg ICAgICAgICAgICANCiAgICAgICAgICAgICAgICAgICAgICAgICAgICAgICAgICAgICAgICAgICAgICAg ICAgICAgICAgICAgICAgICAgICAgICAgICAgICAgICAgICAgICAgICAgICAgICAgICAgICANCiAgICAg ICAgICAgICAgICAgICAgICAgICAgICAgICAgICAgIC AgICAgICAgICAgICAgICAgICAgICAgICAgICAgICAgICAgICAgICAgICAgICAgICAgICAgICAgICAgIC AgICANCiAgICAgICAgICAgICAgICAgICAgICAgICAgICAgICAgICAgICAgICAgICAgICAgICAgICAgIC AgICAgICAgICAgICAgICAgICAgICAgICAgICAgICAg ICAgICAgICAgICAgICANCiAgICAgICAgICAgICAgICAgICAgICAgICAgICAgICAgICAgICAgICAgICAg ICAgICAgICAgICAgICAgICAgICAgICAgICAgICAgICAgICAgICAgICAgICAgICAgICAgICAgICANCiAg ICAgICAgICAgICAgICAgICAgICAgICAgICAgICAgIC AgICAgICAgICAgICAgICAgICAgICAgICAgICAgICAgICAgICAgICAgICAgICAgICAgICAgICAgICAgIC AgICAgICANCiAgICAgICAgICAgICAgICAgICAgICAgICAgICAgICAgICAgICAgICAgICAgICAgICAgIC AgICAgICAgICAgICAgICAgICAgICAgICAgICAgICAg ICAgICAgICAgICAgICAgICANCiAgICAgICAgICAgICAgICAgICAgICAgICAgICAgICAgICAgICAgICAg ICAgICAgICAgICAgICAgICAgICAgICAgICAgICAgICAgICAgICAgICAgICAgICAgICAgICAgICAgICAN Cjw/tJDeJ3wvkZLqtyS1F3xeVg1GAq6YME5uz7WvOY VjNCsavwUuApyIIhSgJGAjQrfSGzb1JDzsTT7YrDQyI5YaI1UlGHidMK3KOCXlMJEeaMBsRPSdMMAfHa H9QCRmMVakCJ2WmGHiBKhvASPhLJEnDF8AYKVcD056hdMoPI6REm7IFxIcAY7jcb9VVxXrBXGlZgyKXi x9FQanJF0TuAJvC5CujAXst2gDFbTpI1ZWUPTqMKIz Pc7GUWChPlYpZJQuOLqoSO1yTAZfWWSJpYygddK7KU2KYK0dorKpGN6YPoMdOb7hEy0WPjZwR8AtG7Nn LWUjWZWLSBhqFL7TVWHgITK4JDGbDrKtOVXSYoTeM14dZH9LZ6Lpy65zCrK5XVEqXrLhKNfcKC20dRmj ilTviUAczGedOY7ICb1+DQplbmRvYmoNCnhyZWYNCj VnPbTXJjKmYVAwFVDjPMQpBuS8AsJbZu8AUTBxFWFuIIOmRkBlRYRzADQmJSfdENMyPKLiGPXwPZLvIP LrNJ1NGzQvSHOwIoU9ILryNPGvVZYera4KFMGfROQtIMR1XUWrAOFxFPNqQGbvIBErIWXzQlXaFQCzVO ImCT4BWoYuLCOhAST4NbVbUARwMAWqce2BEDWcEWVn Uxy6RMIyTRQyMQEoBJfhHCUqGXUtJKrdGQUbPWBmDX8MLhJwZTSfFUOmZcSlPOWwHLFvaj0JRVVkTEVh MVFnJVGtDFIrQCGpFYqrFHLhJFG1SvXtDYUcVGNaMA6AOvEaUSIlNGG0AOfcDGOiBUDiej6MMZJiYTSq AJN9BaAhHFNsJKOuFQbyXSYyAJZzSqkmTPXrSTYcOU 9IWkLaDNJhNFH8LIUvYPJyRYGbji4UBNDiHUQdYDHgJtCmYDIuXRTfVGlwEJWcGRYqNpy0RCLuPTOmUA 3NVbKeKUYzKTCdDxDkQRTtNIOfpd2EMVAqOADtSbWwXtEcEWLmLACdRUzlYMCvYNUuMBb6GDPdPOTpLU 1HAoVgYJKfKQh1PpShPLGvQHZkfn5ENGGcUNJjOmNw ZRThKGYnDXAkLXbsORNlBHTrTGN8VCQcOUCsMQ4HPrHeISRzJgW4OFBuCKGtMWNvzk7AuIRcaHdjlw7C QSgXEx5FkXfvGEO8BBgiMq2gmCPlKIGtVXEWNw4JxsYgCGBjVEGRJMjvFTFyZDvyKOydBBNoFLr7Ewxz Eee1PYfuCAd7APhsIcWyWdeuAsP6P5YxBaD8LQE2XL ieNeXgTMyoIHFwCOZ3WDT3MrMbMVN+DJ5wTNd+Vq6Ia8LzneU8qrXtCJicSVY1Cu1MXJRTI6TSKh== ID Date Data Source [id number] 08/17/2020 12:13:16 PM EDT [facility] SPECIMEN DESCRIPTION TISSUE ICD POCKETSPECIAL REQUESTS NONEACID FAST SMEAR NO ACID FAST BACILLI (CONCENTRATED SMEAR)CULTURE RESULTS NO ACID FAST BACILLI ISOLATED AFTER 8 WEEKSREPORT STATUS FINAL 08/17/2020 Name Value Range Interpretation Code Description Data Evelin rce(s) Supporting Document(s) ID Date Data Source [id number] 08/17/2020 12:13:16 PM EDT [facility] SPECIMEN DESCRIPTION TISSUE LEAD 1 ATRIALSPECIAL REQUESTS NONEACID FAST SMEAR NOT DONECULTURE RESULTS NO ACID FAST BACILLI ISOLATED AFTER 8 WEEKSREPORT STATUS FINAL 08/17/2020 Name Value Range Interpretation Code Description Data Evelin rce(s) Supporting Document(s) ID Date Data Source [id number] 08/17/2020 12:13:16 PM EDT [facility] SPECIMEN DESCRIPTION TISSUE LEAD 2SPECIAL REQUESTS NONEACID FAST SMEAR NOT DONECULTURE RESULTS NO ACID FAST BACILLI ISOLATED AFTER 8 WEEKSREPORT STATUS FINAL 08/17/2020 Name Value Range Interpretation Code Description Data Evelin rce(s) Supporting Document(s) ID Date Data Source [id number] 07/27/2020 11:29:41 AM EST [facility] SPECIMEN DESCRIPTION TISSUE LEAD 2SPECIAL REQUESTS NONECULTURE RESULTS NO FUNGUS ISOLATED AFTER 5 WEEKSREPORT STATUS FINAL 07/27/2020 Name Value Range Interpretation Code Description Data Evelin rce(s) Supporting Document(s) ID Date Data Source [id number] 07/27/2020 11:29:41 AM EST [facility] SPECIMEN DESCRIPTION TISSUE ICD POCKETSPECIAL REQUESTS NONECULTURE RESULTS NO FUNGUS ISOLATED AFTER 5 WEEKSREPORT STATUS FINAL 07/27/2020 Name Value Range Interpretation Code Description Data Evelin rce(s) Supporting Document(s) ID Date Data Source [id number] 07/27/2020 11:29:41 AM EST [facility] SPECIMEN DESCRIPTION TISSUE LEAD 1 ATRIALSPECIAL REQUESTS NONECULTURE RESULTS NO FUNGUS ISOLATED AFTER 5 WEEKSREPORT STATUS FINAL 07/27/2020 Name Value Range Interpretation Code Description Data Evelin rce(s) Supporting Document(s) ID Date Data Source [id number] 06/27/2020 11:56:44 AM EST [facility] SPECIMEN DESCRIPTION RESIDENTIAL PROPERTY TAX APPRAISER 2SPECIAL REQUESTS NONECULTURE RESULTS NO GROWTH 5 DAYSREPORT STATUS FINAL 06/27/2020 Name Value Range Interpretation Code Description Data Evelin rce(s) Supporting Document(s) ID Date Data Source [id number] 06/27/2020 11:56:34 AM EST [facility] SPECIMEN DESCRIPTION RESIDENTIAL PROPERTY TAX APPRAISER 1 ATRIALSPECIAL REQUESTS NONECULTURE RESULTS NO GROWTH 5 DAYSREPORT STATUS FINAL 06/27/2020 Name Value Range Interpretation Code Description Data Evelin rce(s) Supporting Document(s) ID Date Data Source [id number] 06/27/2020 11:55:34 AM EST [facility] SPECIMEN DESCRIPTION TISSUE ICD POCKETSPECIAL REQUESTS NONECULTURE RESULTS NO ANAEROBES ISOLATED AFTER 5 DAYSREPORT STATUS FINAL 06/27/2020 Name Value Range Interpretation Code Description Data Evelin rce(s) Supporting Document(s) ID Date Data Source [id number] 06/27/2020 11:55:28 AM EST [facility] SPECIMEN DESCRIPTION TISSUE ICD POCKETSPECIAL REQUESTS NONEGRAM STAIN RARE (<1/LPF) WHITE BLOOD CELLS NO BACTERIACULTURE RESULTS NO GROWTH 5 DAYSREPORT STATUS FINAL 06/27/2020 Name Value Range Interpretation Code Description Data Evelin rce(s) Supporting Document(s) ID Date Data Source [id number] 06/22/2020 08:27:07 PM EST [facility] SPECIMEN DESCRIPTION TISSUE LEAD 2SPECIAL REQUESTS NONECULTURE RESULTS TEST(S) PROCESSED UNDER NEW ENTRY [place] [facility] [id number]. [id number] STATUS FINAL 06/22/2020 Name Value Range Interpretation Code Description Data Evelin rce(s) Supporting Document(s) ID Date Data Source [id number] 06/22/2020 08:29:12 PM EST [facility] SPECIMEN DESCRIPTION TISSUE LEAD 1 ATRIALSPECIAL REQUESTS NONECULTURE RESULTS TEST(S) PROCESSED UNDER NEW ENTRY P[place] [facility] [place] [id number]. [id number].REPORT STATUS FINAL 06/22/2020 Name Value Range Interpretation Code Description Data Evelin rce(s) Supporting Document(s) ID Date Data Source [id number] 06/22/2020 08:28:52 PM EST [facility] SPECIMEN DESCRIPTION TISSUE LEAD 1 ATRIALSPECIAL REQUESTS NONEGRAM STAIN NOT DONECULTURE RESULTS TEST(S) PROCESSED UNDER NEW ENTRY P[place] [facility] [place] [id number]. [id number].REPORT STATUS FINAL 06/22/2020 Name Value Range Interpretation Code Description Data Evelin rce(s) Supporting Document(s) ID Date Data Source [id number] 06/22/2020 08:28:12 PM EST [facility] SPECIMEN DESCRIPTION TISSUE LEAD 2SPECIAL REQUESTS NONEGRAM STAIN NOT DONECULTURE RESULTS TEST(S) PROCESSED UNDER NEW ENTRY PLEASE [place] [facility] [place] [id number]. [id number] STATUS FINAL 06/22/2020 Name Value Range Interpretation Code Description Data Evelin rce(s) Supporting Document(s) ID Date Data Source [id number] 06/22/2020 01:05:49 PM EST [facility]PAT[facility] NT INFORMATIONPatient MRN Name Date of Age Gend*PT [id number] Jagjit Ibarra 1960 60 years M IPPT Location Admission Date/Time Visit ID Attending Provider --- --- --- --- EPI ID CSN Admitting Prov ider [id number] ---Arterial Line PlacementPatient location during procedure: ORIndications for arterial line: multiple ABGs and hemodynamic monitoringStaffingPerformed by: Blair Ayala CRNAApproved by: Carmina Lovelace, MDCompleted: patient identified, risks and benefits discussed, surgical consentobtained, anesthesia consent obtained, monitors and equipment checked, pre-opevaluation completed, timeout performed, patient was prepped and draped in usualsterile fashion,Arterial Line InsertionSite prep: chlorhexidineAnesthesia: local infiltrationLocal anesthetic: lidocaine 1% without epinephrineLaterality: rightLocation: radial arteryNeedle gauge: 20 GTechnique: Seldinger technique usedNumber of attempts: 1AssessmentSutured: noDressing: dressing appliedPatient tolerance: tolerated well Name Value Range Interpretation Code Description Data Evelin rce(s) Supporting Document(s) ID Date Data Source [id number] 06/22/2020 01:05:28 PM EST [facility]PAT[facility] NT INFORMATIONPatient MRN Name Date of Age Gend*PT [id number] Jagjit Ibarra 1960 60 years M IPPT Location Admission Date/Time Visit ID Attending Provider --- --- --- --- EPI ID CSN Admitting Prov ider [id number] ---AirwayPatient location during procedure: ORUrgency: electiveDifficult airway: noAdvanced airway equipment used: noStaffingPerformed by: Carmina Lovelace MDIndications and Patient ConditionIndications for airway management: anesthesiaPreoxygenated: yesPatient position: sniffingIn-line stabilization: noMask ventilation: 1 - vent by maskFinal Airway/ApproachesFinal airway type: ETTNumber of attempts at final approach: 1Number of other approaches attempted: 0Final Airway DetailsFinal ETT airway: ETT - singleCuffed: yesTechnique used for successful ETT placement: direct laryngoscopyCricoid pressure: noRSI: noInsertion site: oralBlade type/size: MAC 3.5ETT size: 8.0 mmMeasured from: lipsETT to lips: 23 cmPlacement verified by: chest auscultation and + [id number]: CTA and equal breath sounds bilateralGrade view: grade IIa - partial view of glottis Name Value Range Interpretation Code Description Data Evelin rce(s) Supporting Document(s) ID Date Data Source [id number] 06/23/2020 10:08:18 AM EST [facility] SPEC EXP DATE 06/25/2020ATI ENT ABO/Rh O POSITIVEANTIBODY SCREEN NEGATIVETESTING SITE PERFORMED AT [address] [place] [address] [place] [id number] NUMBER [id number] COMPONENT TYPE LEUKOPOOR RED CELLSUNIT DIVISION 00STATUS OF UNIT REL FROM ALLOCTRANSFUSION STATUS OK TO TRANSFUSECROSSMATCH RESULT COMPATIBLEUNIT NUMBER [id number] COMPONENT TYPE LEUKOPOOR RED CELLSUNIT DIVISION 00STATUS OF UNIT REL FROM ALLOCTRANSFUSION STATUS OK TO TRANSFUSECROSSMATCH RESULT COMPATIBLE Name Value Range Interpretation Code Description Data Evelin rce(s) Supporting Document(s) TYPE AND SCREEN [facility] ID Date Data Source [id number] 06/22/2020 11:32:57 AM EST [facility] Name Value Range Interpretation Code Description Data Evelin rce(s) Supporting Document(s) POC NOVA GLU 184 mg/dL (70-99) H [facility] [place] [facility] CLINICAL STAFF ID Date Data Source [id number] 06/28/2020 11:53:01 AM EST [facility] SPECIMEN DESCRIPTION PERIPHERALSP ECIAL REQUESTS NONECULTURE RESULTS NO GROWTH 6 DAYSREPORT STATUS FINAL 06/28/2020 Name Value Range Interpretation Code Description Data Evelin rce(s) Supporting Document(s) ID Date Data Source [id number] 06/28/2020 11:53:01 AM EST [facility] SPECIMEN DESCRIPTION PERIPHERALSP ECIAL REQUESTS NONECULTURE RESULTS NO GROWTH 6 DAYSREPORT STATUS FINAL 06/28/2020 Name Value Range Interpretation Code Description Data Evelin rce(s) Supporting Document(s) ID Date Data Source [id number] 06/22/2020 07:33:56 AM EST [facility] Name Value Range Interpretation Code Description Data Evelin rce(s) Supporting Document(s) POC NOVA GLU 183 mg/dL (70-99) H [facility] [place] [facility] CLINICAL STAFF ID Date Data Source [id number] 06/22/2020 07:27:58 AM EST [facility] CenterPATIE NT INFORMATIONPatient MRN Name Date of Age Gend*PT [id number] Jagjit Ibarra 1960 60 years M IPPT Location Admission Date/Time Visit ID Attending ProviderCV-04 06/21/20 Sanchez4 --- Kathryn Adler MD([id number]) EPI ID CSN Admitting Provider [id number] Maury Treviño MD([id number]) Attestation signed by Dillon Fuentes MD at 06/22/2020 7:27 AMI saw and examined the patient at the bedside independently. I agree with theassessment and plan by the clinical affiliate. This is a 60 years male With ahistory of ICD insertion. The patient presents with evidence of a CI EDinfection. The significance of a device related infection was explained ingreat detail. It was explained to the patient that pocket salvage as anattempt to treat the underlying infection is not an acceptable means oftreatment. The failure rate of long-term antibiotics was also explained.Specifically a device related infection cannot be treated with either pocketsalvage alone or in conjunction with long-term IV antibiotics because of theformation of a bio film over the leads. The leads would remain a nidus forinfection which ultimately could cause valvular endocarditis and sepsis.Therefore based on current accepted guidelines the only acceptable treatmentfor a device related infection is complete system extraction with removal ofall existing leads and pulse generator. A device related infection isconsidered a class 1 indication for system extraction.The extraction procedure was explained in great detail. Based on the LeadExtraction in the Contemporary Setting study (LExiCon) the success rate forcomplete lead removal was quoted at 96.5 percent with clinical success quotedat 97.7 percent. It was also explained that procedural failure increased withleads having been implanted for more than 10 years. Given that this representsa device related infection and that all hardware needs to be extracted, andopen extraction via either a thoracotomy or sternotomy would need to beconsidered if laser lead extraction failed to remove all of the existinghardware.The risks of the procedure including but not limited to vascular injury,perforation, pneumothorax, sepsis, stroke, acute renal failure, valvularavulsion, pericardial effusion, tamponade, need for emergent open heart surgeryand were all explained. In the LExICon study the risk of directlyassociated with extraction was 0.4 percent. In addition the need for a generalanesthetic, continues transesophageal echo visualization as well as formalcardiac surgical backup was discussed.The patient is not pacemaker dependent. His ICD has been programmed off and inthe VVI mode.The patient understands the need for extraction and is willing to proceed.This document or parts of this document, were dictated using SQLstreamware. A reasonable attempt at proofreading has been made to minimizeerrors. Please call with any questions or corrections.Signature: Dillon Dietz MD, [facility], [facility] CENTERCardiac Electrophysiology and Arrhythmia ServiceDate: June 22, 2020Time: 7:26 AMThis document or parts of this document, were dictated using SQLstreamware. A reasonable attempt at proofreading has been made to minimizeerrors. Please call with any questions or corrections. Cardiology ConsultName: Jagjit Ibarra Gender: maleDate of : 1960 Age: 60 yearsDate/Time of Admit: 06/21/2020 2:44 PM Code Status: PriorPrimary Care ProviderReferring Physician: Tamar Drew MDCurrent HistoryReason for consultation: Infected ICD systemChief Complaint: left side of chest pain/syncopeHPI:This patient is a 60 years male with past medical history of the following.- Coronary artery disease s/p myocardial infarction- History of bilateral DVT- History of pulmonary embolus- Diabetes mellitus type II- Hypertension- Hyperlipidemia- Atrial fibrillation on Eliquis- ICD placement, [facility] in 2015 for presumed hypertrophic cardiomyopathy,denies history of ICD shock- Most recent cardiac catheterization on 07/08/2019 revealed no significantprogression of disease, the LAD/Diagonal stents remain open.- Most recent Echocardiogram on 07/08/2019 showed normal left ventricularfunction with LVEF of 55-65%, grade I diastolic dysfunct ion, mild mitral valveregurgitations.- Anxiety and depressionPatient presented to [facility] [place] with complaining of left-sided chest painaround 3 am about 19 days ago. The chest pain was associated with diaphoresisand lightheadedness. Patient also reports syncope episode with chest pain. Thechest pain relieved with SL nitro x3 per patient. No further chest pain sinceadmission. Per record,Troponin was negative. CTA chest negative for PE. Patientwas found positive blood culture with Staph aureus, he had PICC line placementand was started on broad-spectrum antibiotics and narrowed down to Cephazolin.ICD was interrogated and no arrhythmia other than some PAF seen. There isbattery recall on the device, the battery can deplete without warning. Patienthad not followed up with device clinic and he was told the ICD battery wasdepleted since 2018. Patient underwent DANIELE at [facility], see resultbelow-There is a small 0.4 x 0.2 vegetation identified on the ICD lead- Normal tricuspid valve- Normal aortic valve- Normal mitral valve- Intact LV functionImpression:ICD lead infectionRecommendation:Explant systemPatient denies fever, chills, shortness of breath, chest pain, chest pressure orpalpitations. Patient is transferred to [facility] for ICD system extraction. Last doseof Eliquis was on Friday06/19/2020.Review of Systems General Reports dizziness or lightheadedness. Denies any recent, unexpecte dweight changes. HEENT Denies any loss or change of vision. Denies tinnitus. Respiratory Denies PND, orthopnea, BAIG, hemoptysis, cough, or shortness ofbreath. Cardiac Reports chest pain/pressure, denies palpitations GI Denies melena, hematochezia, nausea, or vomiting. MS Denies any lower extremity edema. Neuro Denies speech, motor, or sensory impairment. Psych Denies depression or anxiety. Endo Denies polyuria or polydipsia, denies temperature intolerance. Derm Denies diaphoresis, non-healing skin woundsPast HistoryPast Medical History:Diagnosis Date Anxiety Atrial fibrillation Costochondritis Depression Diabetes mellitus Hypertension Neuropathy Pulmonary embolism Pulmonary embolusPast Surgical History:Procedure Laterality Date BACK SURGERY Lumbar disc surgery, cervical disc surgery CARDIAC CATHETERIZATION N/A 10/16/2018 Procedure: Add-On Cardiac Cath; Surge on: Whit Magana MD; Laterality: N/A; CARDIAC CATHETERIZATION N/A 07/08/2019 Procedure: Cardiac catheterization; Surgeon: Kathy Mei MD; Laterality:N/A; CARDIAC DEFIBRILLATOR PLACEMENT CORONARY ANGIOPLASTY WITH STENT PLACEMENT records not available icd placement IR IVC FILTER PLACEMENT knee surgery TONSILLECTOMYFamily HistoryProblem Relation Age of Onset Heart disease Mother Heart disease FatherSocial HistorySocioeconomic History Marital status: Spouse name: Not on file Number of children: Not on file Years of education: Not on file Highest education level: Not on fileOccupational History Not on fileSocial Needs Financial resource strain: Not on file Food insecurity: Worry: Not on file Inability: Not on file Transportation needs: Medical: Not on file Non-medical: Not on fileTobacco Use Smoking status: Former Smoker Packs/day: 0.50 Types: Cigarettes Last attempt to quit: 05/29/2020 Years since quittin.0 Smokeless tobacco: Never UsedSubstance and Sexual Activity Alcohol use: Yes Comment: Socially Drug use: No Sexual activity: Not on fileLifestyle Physical activity: Days per week: Not on file Minutes per session: Not on file Stress: Not on fileRelationships Social connections: Talks on phone: Not on file Gets together: Not on file Attends adventist service: Not on file Active member of club or organization: Not on file Attends meetings of clubs or organizations: Not on file Relations hip status: Not on file Intimate partner violence: Fear of current or ex partner: Not on file Emotionally abused: Not on file Physically abused: Not on file Forced sexual activity: Not on fileOther Topics Concern Not on fileSocial History Narrative Not on fileMedications and AllergiesALLERGIES/SENSITIVITIES: Compazine [prochlorperazine edisylate]; Procardia[nifedipine]; and Flexeril [cyclobenzaprine]Medications Prior to AdmissionMedication Sig acetaminophen (TYLENOL) 500 MG tablet Take 1,000 mg by mouth every 6 (six)hours as needed for pain ARIPiprazole (ABILIFY) 10 MG tablet Take 5 mg by mouth daily aspirin 81 MG chewable tablet Chew 1 tablet (81 mg total) daily atorvastatin (LIPITOR) 40 MG tablet Take 1 tablet (40 mg total) by mouthnightly PPSS carvedilol (COREG) 25 MG tablet Take 25 mg by mouth 2 (two) times a day famotidine (PEPCID) 20 MG tablet Take 20 mg by mouth 2 (two) times a day folic acid (FOLVITE) 1 MG tablet Take 1 mg by mouth daily gabapentin (NEURONTIN) 600 MG tablet Take 600 mg by mouth 3 (three) times aday hydrALAZINE (APRESOLINE) 10 MG tablet Take 1 tablet (10 mg total) by mouth 3(three) times a day PPSS lisinopril (PRINIVIL,ZESTRIL) 40 MG tablet Take 40 mg by mouth daily MELATONIN PO Take by mouth metFORMIN (GLUCOPHAGE) 1000 MG tablet Take 1,000 mg by mouth 2 (two) times aday with meals nitroglycerin (NITROSTAT) 0.[address] 1 tablet (0.4 mg total) underthe tongue every 5 (five) minutes as needed for chest pain PPSS warfarin (COUMADIN) 5 MG tablet Take 1 tablet (5 mg total) by mouth daily onFriday, Friday, and FridayPhysicalBMI: There is no height or weight on file to calculate BMI.Blood Pressure: BP: (!) 148/93 Pulse: Heart Rate: 79 Temperature: Temp: 98.1 F Respirations: Resp: 17Admission Weight: O2 Saturation: SpO2: 95 %Physical Exam General Well developed, well nourished, no acute distress Neck Soft and supple without lymphadenopathy or thyromegaly. No JVD. Nobruits. Chest Non-tender to palpation Lungs Clear to auscultation, no crackles, rhonchi, or wheezes Heart Normal S1 S2, no murmurs, clicks, or gallops Abdomen Soft, non-tender, non-distended, no palpable HSM or masses, + bowelsounds Musculoskeletal Appears to have normal range of motion x 4 extremities, nojoint swelling. No pedal edema Neuro Alert, orientedx3, no facial asymmetry Derm No rashes, or ulcers Vascular Pulses palpable and symmetric at femoral, radial, dorsalis pedis, andposterior tibial locations. PICC line intact right upper arm.DiagnosticsCOVID test pending.Assessment & PlanActive Problems: * No active hospital problems. *- Infected ICD: patient initially presented with chest pain with negativetroponin. Patient was found with positive blood culture with Staph aureus.Patient was treated with antibiotics. Afebrile. DANIELE revealed there is a small0.4 x 0.2 vegetation identified on the ICD lead. No blood work available, willneed to update. NPO after MN, will plan for ICD extraction in AM. Will updateCOVID testing.- Atrial fibrillation: heat rate is well controlled. Contin ue beta-magdy. Wason Eliquis, held, last dose was on 06/19/2020.- Coronary artery disease: denies any anginal equivalent symptoms currently.Most recent cardiac cathterization revealed stable CAD with patent stents.Continue home dose cardiac medications. Continue telemetry monitoring.Dr. Dietz will see the patient and offering further recommendation.Thank you for this consultation, will follow up with the patient.Signature: Adore Cooper NPDate: June 21, 2020Time: 4:11 PM Name Value Range Interpretation Code Description Data Evelin rce(s) Supporting Document(s) ID Date Data Source [id number] 06/22/2020 07:18:20 AM EST [facility] Name Value Range Interpretation Code Description Data [facility] rce(s) Supporting Document(s) SODIUM 141 mmol/L (136-145) [facility] POTASSIUM 3.9 mmol/L (3.6-5.2) [facility] CHLORIDE 105 mmol/L (100-108) [facility] CO2 29 mmol/L (22-31) [facility] ANION GAP 7 mmol/L (7-16) [facility] UREA NITROGEN 17 mg/dL (7-24) [facility] CREATININE 0.96 mg/dL (0.80-1.30) [facility] BUN/CREAT RATIO 17.7 RATIO (10.0-20.0) [facility] GLUCOSE 179 mg/dL (70-99) H [facility] CALCIUM 9.3 mg/dL (8.4-10.2) [facility] GFR >60 ml/min/1.73m2 (>59) [facility] GFR ( AMER) >60 ml/min/1.73m2 (>59) [facility] GFR INTERPRETATION [facility] --NORMAL KIDNEY FUNCTION OR MILD DISEASE - GFR >OR= 60CHRONIC KIDNEY DISEASE - GFR 15 - 59RENAL FAILURE - GFR <15 Est. GFR calculation based on the MDRDstudy equation, which assumes a steadystate for creatinine. Est. GFR should notbe used for medication dosing. ID Date Data Source [id number] 06/22/2020 06:25:42 AM EST [facility] Name Value Range Interpretation Code Description Data Evelin rce(s) Supporting Document(s) WBC 5.8 10*3/uL (4.1-11.0) [facility] [place] RBC 3.71 10*6/uL (4.60-6.10) L [facility] HGB 11.1 g/dL (13.5-18.0) L [facility] HCT 31.5 % (41.0-53.0) L [facility] MCV 84.9 fL (80.0-95.0) [facility] MCH 29.8 pg (27.0-32.0) [facility] MCHC 35.1 g/dL (32.0-36.0) [facility] RDW 13.3 % (10.5-14.5) [facility] PLT 237 10*3/uL (150-450) [facility] MPV 7.6 fL (7.1-10.7) [facility] ID Date Data Source [id number] 06/21/2020 09:25:57 PM EST [facility] Name Value Range Interpretation Code Description Data Evelin rce(s) Supporting Document(s) APTT 26.9 s (22.0-34.3) [facility] ID Date Data Source [id number] 06/21/2020 09:25:57 PM EST [facility] Name Value Range Interpretation Code Description Data Evelin rce(s) Supporting Document(s) PT 12.5 s (9.2-11.9) H [facility] INR 1.20 [facility] SUGGESTED THERAPEUTIC RANGES USING INR F ORSTABILIZED ANTICOAGULATED PATIENTS:STANDARD DOSE THERAPY INR 2.0-3.0 DVT, PE, PREVENT DVT OR EMBOLISMHIGH DOSE THERAPY INR 2.5-3.5 PREVENT EMBOLISM FROM MECHANICAL HEART VALVE ID Date Data Source [id number] 06/21/2020 06:23:37 PM EST [facility] Name Value Range Interpretation Code Description Data Evelin rce(s) Supporting Document(s) POC NOVA GLU 256 mg/dL (70-99) H [facility] [place] PERFORMED BY [facility] CLINICAL STAFF ID Date Data Source [id number] 06/21/2020 06:03:32 PM EST [facility]PAT[facility] NT INFORMATIONPatient MRN Name Date of Age Gend*PT [id number] Fred Jagjit 1960 60 years M IPPT Location Admission Date/Time Visit ID Attending ProviderCV-06/21/20 1444 --- Park Rocha MD([id number]) EPI ID CSN Admitting Provider [id number] Maury Treviño MD([id number])Inpatient History & PhysicalLewis ColumbusMRN:[id number] and Plan:Active Problems: Coronary artery disease due to lipid rich plaque Infected defibrillator Paroxysmal atrial fibrillation1. 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 H/O CAD, s/p stent, no chest pain, negative troponin3. Chronic afib, on ELiquis which will on hold for procedure tomorrow4. DM T2, will continue Insulin5. DVT and GI prophylaxis, lovenox and PPIChief Complaint: MSSA bacteremia and ICD lead infectionHPI: 60 Y male with h/o ICD placement, presented [facility] [place] withcomplaining of left-sided chest pain 19 days ago. The chest pain was associatedwith diaphoresis and lightheadedness. Patient also reports syncope episode withchest pain. The chest pain relieved with SL nitro x3 per patient. His initialworkups over there were negative including negative troponin and negative PE.However, he was found to have MSSA bacteremia which was treated with IV abx viaPICC line; ICD was interrogated and no arrhythmia other than some PAF seen. [facility], he underwent for DANIELE and found tohave vegetation in ICD lead; so he was transferred here for further management. Patient denies fever, chills, shortness of breath, chest pain, chest pressure orpalpitations. Past Medical History:Past Medical History:Diagnosis Date Anxiety Atrial fibrillation Costochondritis Depression Diabetes mellitus Hypertension Neuropathy Pulmonary embolism Pulmonary embolusPast Surgical History:Past Surgical History:Procedure Laterality Date BACK SURGERY Lumbar disc surgery, cervical disc surgery CARDIAC CATHETERIZATION N/A 10/16/2018 Procedure: Add-On Cardiac Cath; Surgeon: Whit Magana MD; Laterality: N/A; CARDIAC CATHETERIZATION N/A 07/08/2019 Procedure: Cardiac catheterization; Surgeon: Kathy Mei MD; Laterality:N/A; CARDIAC DEFIBRILLATOR PLACEMENT CORONARY ANGIOPLASTY WITH STENT PLACEMENT records not available icd placement IR IVC FILTER PLACEMENT knee surgery TONSILLECTOMYMedications:Medications Prior to AdmissionMedication Sig Dispense Refill Last Dose acetaminophen (TYLENOL) 500 MG tablet Take 1,000 mg by mouth every 6 (six)hours as needed for pain ARIPiprazole (ABILIFY) 10 MG tablet Take 5 mg by mouth daily aspirin 81 MG chewable tablet Chew 1 tablet (81 mg total) daily atorvastatin (LIPITOR) 40 MG tablet Take 1 tablet (40 mg total) by mouthni tly PPSS 30 tablet 0 carvedilol (COREG) 25 MG tablet Take 25 mg by mouth 2 (two) times a day famotidine (PEPCID) 20 MG tablet Take 20 mg by mouth 2 (two) times a day folic acid (FOLVITE) 1 MG tablet Take 1 mg by mouth daily gabapentin (NEURONTIN) 600 MG tablet Take 600 mg by mouth 3 (three) times aday hydrALAZINE (APRESOLINE) 10 MG tablet Take 1 tablet (10 mg total) by mouth 3(three) times a day PPSS 90 tablet 0 lisinopril (PRINIVIL,ZESTRIL) 40 MG tablet Take 40 mg by mouth daily MELATONIN PO Take by mouth metFORMIN (GLUCOPHAGE) 1000 MG tablet Take 1,000 mg by mouth 2 (two) times aday with meals nitroglycerin (NITROSTAT) 0.[address] 1 tablet (0.4 mg total) underthe tongue every 5 (five) minutes as needed for chest pain PPSS 25 tablet 0 warfarin (COUMADIN) 5 MG tablet Take 1 tablet (5 mg total) by mouth daily onFriday, Friday, and Friday 30 tablet 0Allergies:Compazine [prochlorperazine edisylate]; Procardia [nifedipine]; andFlexeril [cyclobenzaprine]Family History:Family HistoryProblem Relation Age of Onset Heart disease Mother Heart disease FatherSocial History:Social HistoryTobacco Use Smoking status: Former Smoker Packs/day: 0.50 Types: Cigarettes Last attempt to quit: 05/29/2020 Years since quittin.0 Smokeless tobacco: Never UsedSubstance Use Topics Alcohol use: Yes Comment: Socially Drug use: Khalida is full codeReview of Systems:Per HPI, all other systems reviewed but negativePhysical Exam:Vital Signs: Temp: [97.5 F-98.1 F] 98.1 FHeart Rate: [79-81] 79Resp: [17] 17BP: (148-152)/(83-93) 148/93Constitutional: AA Ox3, he is not in acute distessHENT:Head: Normocephalic and atraumatic.Eyes: Conjunctivae are normal. No scleral icterus. EOM intactNeck: Normal range of motion. Neck supple.Cardiovascular: regular and no tachycardia or bradycardia no murmurPulmonary/Chest: Effort normal. No stridor. No respiratory distress. He has nowheezes.Abdominal: Soft. Bowel sounds are normal. He exhibits no distension and no mass.There is no tenderness.No redness or tenderness in ICD siteMusculoskeletal: Normal range of motion. He exhibits no edema or tenderness.Neurological: He is alert and oriented to person, place, and time.Skin: Skin is warm. No rashPsych: no acute psychosis Labs, Imaging and Other Diagnostics:Diagnostic tests reviewed:Signature: APM Moraate: June 21, 2020Time: 4:48 PM Name Value Range Interpretation Code Description Data Evelin rce(s) Supporting Document(s) ID Date Data Source [id number] 06/21/2020 07:43:25 PM EST [facility] Name Value Range Interpretation Code Description Data Evelin rce(s) Supporting Document(s) HEMOGLOBIN A1C @ 9.0 % (4.0-6.0) H Lab [facility] Performed using [employer] y.Care must be taken when interpreting EwQ8lupwexog in patients with a hemoglobin variantor decreased erythrocyte lifespan. 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 ID Date Data Source [id number] 06/21/2020 08:29:47 PM EST Lab [facility] Name Value Range Interpretation Code Description Data Evelin rce(s) Supporting Document(s) SPECIMEN DESCRIPTION [facility]ULT (NDET) [facility] THIS ASSAY AMPLIFIES AND DETECTSTHE TARG ET RNA USING REAL-TIME PCR.TESTING PERFORMED ON [employer] GENEXPERTNEGATIVE 2019_NCOV RT-PCR RESULTS DONOT PRECLUDE 2019_NCOV INFECTION ANDSHOULD NOT BE USED THE SOLE BASISFOR PATIENT MANAGEMENT DECISIONS. COMMENT [facility] LABORATORY [employer] [place] APPROVED B Y THE [place]OH. THE [place]. FOODAND DRUG ADMINISTRATION HAS NOT APPROVEDTHIS TEST. NEGATIVE RESULTS DO NOT IANQBHLRLCUH-VWX-7 INFECTION AND SHOULD NOT BEUSED THE SOLE BASIS FOR CLINICALDIAGNOSIS OR PATIENT MANAGEMENT DECISIONS. FIRST TEST [facility] [place] EMPLOYED IN HLTHCARE [facility] [place] SYMPTOMATIC [facility] [place] DATE OF SYMPT ONSET [facility] [place] HOSPITALIZED [facility] ICU [facility] [place] CONGREGATE CARE SET [facility] [place] [facility] [place] ID Date Data Source [id number] 06/21/2020 02:04:13 PM EST Name Value Range Interpretation Code Description Data Evelin rce(s) Supporting Document(s) Nursing Note [facility] NMKIRw2pNpNBXeCm42/RQRlpBCYaq2SdYVqgEOh8YHqrAEFjL8GfNCF9qP0yCFL5QDtFSeFqUzScDJT5 lbm AtDtxUWeRkRMVcSmrGRbGgNSuvJfzfmJPiOB0OwRH9FSUnW49hOQKuEUOlH1CmGBk1IB8+QYdwOXY0ws XqsI5KVBUBBYND5eHGmg+0/5EAN5HTzsPijgFFYCVVodMcaWd1DVwGUXrFcu6h03fTNPH8SU9IECOxim Pvvs/+iSt6TvE+7qCnAsYYlP/rVxUKuJzBxw/QuHli 8br4JqkNYCfalbJOir3/VTWWNXAP1oeheHBPQ3tk9INEh62eVksUL3HQBd4gbbVInu3J0LEO/e3QMo6Q oarwBHoHgnF70YyWsbCvdh0QilB9ojKZvKvuGuICaUHdbywJOgGltPbQOYRsTod5aDKmR3K2i077ssNM WDEmxUAXOPLBmCy0+E9wRMNaVq2CFtbtyQSSB0EBXF iSt1339iqFi9pbncSX6AcDtLlDfWGDIhdFbTI7a6ikz1jfh38XGN5ZNqzmMWU1NoWqR0oOirgVoYJwxC 74PdUWOTilzrJo1V3PXfQcHKvWq0x4SA20JAIwVpZrjNwitYYsHDlLG/[place]+TROYzhIZ+fpNoyOXndtvt [file] 0G0dvs6M+i7ZlgDt1TCr56MKBAVmLa45fc50M1+test director [file] HpMxADXkRIDtDmF8NvKvIH1YPt4DWaL2QSY3hGKjMx8ZXqO9JROLGsLyJR4AFEi= ID Date Data Source [id number] 06/21/2020 01:17:53 PM EST Name Value Range Interpretation Code Description Data Evelin rce(s) Supporting Document(s) Progress Notes [facility] AXKHQk4jOeCYWjJc32/XCXizCVNjr1DsICeoOEg9XObkKQSuK4BcMIG3tR6rSDG8GIxCFxZkHmNvKTB7 lbm [file] [id number]Gu= ID Date Data Source [id number] 06/21/2020 07:36:00 AM EST Name Value Range Interpretation Code Description Data Evelin rce(s) Supporting Document(s) Glucose, Fingerstick 183 mg/dl 70-110 Above high normal The above 1 analytes were performed by [facility] [id number] [place] [address],[facility]#: [id number],[place] [address] ID Date Data Source [id number] 06/21/2020 05:58:00 AM EST Name Value Range Interpretation Code Description Data Evelin rce(s) Supporting Document(s) WBC 7.08 x1000/ul 4.80-10.00 Normal (applies to non-numeric re sults) RBC 3.93 x1Mil/ul 4.70-6.[address] [facility] Hemoglobin 11.4 g/dl 14.0-18.0 Below low normal [facility] Hematocrit 34.5 % 42.0-52.0 Below low normal [facility] MCV 87.8 fL 80.0-94.0 Normal (applies to non-numeric resul ts) MCH 29.0 pg 27.0-31.0 Normal (applies to non-numeric resul ts) MCHC 33.0 g/dl 32.2-37.0 Normal (applies to non-numeric resul ts) RDW 12.2 % 11.5-14.5 Normal (applies to non-numeric resul ts) Platelet Count 285 x1000/ul 130-400 Normal (applies to non-numeric results) MPV 9.6 fL 9.4-12.4 Normal (applies to non-numeric resul ts) Nucleated RBCs 0.00 % 0.00-0.20 Normal (applies to non-numeric r esults) Abs. Nucleated RBCs 0.00 x1000/ul 0.00-0.02 Normal (appl ies to non-numeric results) The above 12 analytes were performed by [facility] [id number] [place] [address], ,[place] [address] ID Date Data Source [id number] 06/21/2020 05:49:00 AM EST Name Value Range Interpretation Code Description Data Evelin rce(s) Supporting Document(s) Magnesium 2.0 mg/dl 1.6-2.6 Normal (applies to non-numeric resul ts) The above 1 analytes [facility] [id number] [place] [address], ,[place] [address] ID Date Data Source [id number] 06/21/2020 05:49:00 AM EST Name Value Range Interpretation Code Description Data Evelin rce(s) Supporting Document(s) AST 26 IU/L 15-37 Normal (applies to non-numeric resul ts) Sulfasalazine and sulfapyridine have the potential to falsely depressAspartate Aminotransferase results. Baseline values before medication administration are recommended. ALT 28 IU/L 16-61 Normal (applies to non-numeric resul ts) Sulfasalazine and sulfapyridine have the potential to falsely depressAlanine Aminotransferase results. Baseline values before medication administration are recommended. Alkaline Phosphatase 108 mIU/ml 50-136 Normal (applies to n on-numeric results) Total Bilirubin 0.90 mg/dl 0.20-1.00 Normal (applies to non-numeric results) Blood Urea Nitrogen 18 mg/dl 7-18 Normal (applies to non-nume kamilah results) Creatinine 0.92 mg/dl 0.67-1.17 Normal (applies to non-numeric resul ts) N-Acetylcysteine (NAC) and Metamizole bradley ve the potential to falselydepress Creatinine results. Baseline values before medication adminstration are recommended. Patients undergoing treatment with phenindione will have falselydepressed results. Patients on phenindione therapy should be tested with an alternativeCREA method.Toxic levels of acetaminophen may lead to falsely depressed results forpatient samples. Glomerular Filtration Rate 84.00 mL/min/1.73m2 GFR Reference Ranges:Normal Function or Mild Renal Disease,if clinically at risk:>or= 60Moderately decreased:30 - 59Severely decreased:15 - 29Renal Failure:<15 Please note that the MDRD equation requires an additional adjustment forAfrican-Americans (multiply the GFR result by 1.210).Glomarular Filtration Rate (GFR) is estimated based on the MDRDequation, which assumes a steady state for creatinine (Klarissa Int Med 139/2 137-149, 2003), as recommended by the NationalKidney Disease Education Program in conjunction with the National Institutes of Health and the National KidneyFoundation. The [place] method used in calculating this result is traceable to IDNC standards. Glucose 175 mg/dl 70-110 Above high normal [facility] Sulfasalazine has the potential to false ly depress Glucose results. Sulfapyridine has the potential to falsely elevate Glucose results. Baseline values before medication administration are recommended. Calcium 9.6 mg/dl 8.5-10.1 Normal (applies to non-numeric resul ts) Total Protein 7.7 g/dl 6.4-8.2 Normal (applies to non-numeric re sults) Albumin 3.0 g/dl 3.4-5.0 Below low normal Sodium 138 mEq/L 136-145 Normal (applies to non-numeric resul ts) Potassium 3.9 mEq/L 3.5-5.1 Normal (applies to non-numeric resul ts) Chloride 104.0 mEq/L 98.0-107.0 Normal (applies to non-numeric resu lts) Carbon Dioxide 29.2 mMol/L 21.0-32.0 Normal (applies to non-numeric results) Anion Gap 8.7 7.0-15.0 Normal (applies to non-numeric resul ts) The above 16 analytes were performed by [facility] [id number] [place] [address], ,[place] [address] ID Date Data Source [id number] 06/20/2020 07:57:00 PM EST Name Value Range Interpretation Code Description Data Evelin rce(s) Supporting Document(s) Glucose, Fingerstick 226 mg/dl 70-110 Above high normal The above 1 analytes were performed by [facility] [id number] [place] [address], ,[place] [address] ID Date Data Source [id number] 06/20/2020 05:16:00 PM [facility] Name Value Range Interpretation Code Description Data Evelin rce(s) Supporting Document(s) Glucose, Fingerstick 282 mg/dl 70-110 Above high normal The above 1 analytes were performed [facility] [id number] [place] [address], ,[place] [address] ID Date Data Source [id number] 06/20/2020 04:52:23 PM [facility] Name Value Range Interpretation Code Description Data Evelin rce(s) Supporting Document(s) Progress Notes [facility] JUHCKg3zOxWVKiRe66/ACQxhTSHtp7FaDQapZFc8CCpdLNBlC0DkURZ7aT8eZAK1BSiEZvJbAyAbLXF2 lbm [file] [id number] ID Date Data Source [id number] 06/20/2020 02:30:00 PM EST Name Value Range Interpretation Code Description Data Evelin rce(s) Supporting Document(s) Glucose, Fingerstick 282 mg/dl 70-110 Above high normal The above 1 analytes were performed by [facility] [id number] [place] [address],[facility]#: [id number],[place] [address] ID Date Data Source [id number] 06/20/2020 11:14:28 AM EST Name Value Range Interpretation Code Description Data Evelin rce(s) Supporting Document(s) Progress Notes [facility] LXFCSy8gHfQAHrIl68/ISPmqWXJfi6IhJUspTPp3JUqiFNPcR4CiIBT5bY7yZGQ5EJgVGrKlOeTjJVR6 lbm [file] o= ID Date Data Source [id number] 06/20/2020 07:32:00 AM EST Name Value Range Interpretation Code Description Data Evlein rce(s) Supporting Document(s) Glucose, Fingerstick 219 mg/dl 70-110 Above high normal The above 1 analytes were performed by [facility] [id number] [place] [id number],[place] [address] ID Date Data Source [id number] 06/20/2020 05:25:00 AM EST Name Value Range Interpretation Code Description Data Evelin rce(s) Supporting Document(s) Blood Urea Nitrogen 20 mg/dl 7-18 Above high normal Creatinine 0.90 mg/dl 0.67-1.17 Normal (applies to non-numeric resul ts) N-Acetylcysteine (NAC) and Metamizole bradley ve the potential to falselydepress Creatinine results. Baseline values before medication adminstration are recommended. Patients undergoing treatment with phenindione will have falselydepressed results. Patients on phenindione therapy should be tested with an alternativeCREA method.Toxic levels of acetaminophen may lead to falsely depressed results forpatient samples. Glomerular Filtration Rate 86.00 mL/min/1.73m2 GFR Reference Ranges:Normal Function or Mild Renal Disease,if clinically at risk:>or= 60Moderately decreased:30 - 59Severely decreased:15 - 29Renal Failure:<15 Please note that the MDRD equation requires an additional adjustment forAfrican-Americans (multiply the GFR result by 1.210).Glomarular Filtration Rate (GFR) is estimated based on the MDRDequation, which assumes a steady state for creatinine (Klarissa Int Med 139/2 137-149, 2003), as recommended by the NationalKidney Disease Education Program in conjunction with the National Institutes of Health and the National KidneyFoundation. The [place] method used in calculating this result is traceable to IDMS standards. Glucose 210 mg/dl 70-110 Above high normal [facility] Sulfasalazine has the potential to false ly depress Glucose results. Sulfapyridine has the potential to falsely elevate Glucose results. Baseline values before medication administration are recommended. Calcium 9.2 mg/dl 8.5-10.1 Normal (applies to non-numeric resul ts) Sodium 136 mEq/L 136-145 Normal (applies to non-numeric resul ts) Potassium 4.1 mEq/L 3.5-5.1 Normal (applies to non-numeric resul ts) Chloride 102.0 mEq/L 98.0-107.0 Normal (applies to non-numeric resu lts) Carbon Dioxide 29.9 mMol/L 21.0-32.0 Normal (applies to non-numeric results) Anion Gap 8.2 7.0-15.0 Normal (applies to non-numeric resul ts) The above 10 analytes were performed by [facility] [id number] [place] [address],[facility] [id number],[place] [address] ID Date Data Source [id number] 06/20/2020 05:06:00 AM EST Name Value Range Interpretation Code Description Data Evelin rce(s) Supporting Document(s) WBC 7.23 x1000/ul 4.80-10.00 Normal (applies to non-numeric re sults) RBC 4.04 x1Mil/ul 4.70-6.[address] [facility] Hemoglobin 11.8 g/dl 14.0-18.0 Below low normal [facility] Hematocrit 35.4 % 42.0-52.0 Below low normal [facility] MCV 87.6 fL 80.0-94.0 Normal (applies to non-numeric resul ts) MCH 29.2 pg 27.0-31.0 Normal (applies to non-numeric resul ts) MCHC 33.3 g/dl 32.2-37.0 Normal (applies to non-numeric resul ts) RDW 12.3 % 11.5-14.5 Normal (applies to non-numeric resul ts) Platelet Count 276 x1000/ul 130-400 Normal (applies to non-numeric results) MPV 9.1 fL 9.4-12.4 Below low normal Neutrophils 61.9 % 40.0-74.0 Normal (applies to non-numeric resu lts) Lymphocytes 28.2 % 19.0-48.0 Normal (applies to non-numeric resu lts) Monocytes 7.3 % 3.4-9.0 Normal (applies to non-numeric resul ts) Eosinophils 1.2 % 0.0-7.0 Normal (applies to non-numeric resu lts) Basophils 0.7 % 0.0-2.0 Normal (applies to non-numeric resul ts) Immature Granulocytes 0.7 % 0.0-0.5 Above high normal Nucleated RBCs 0.00 % 0.00-0.20 Normal (applies to non-numeric r esults) Abs. Neutrophils 4.47 x1000/ul 1.92-8.31 Normal (applies to non-numeric results) Abs. Lymphocyte 2.04 x1000/ul 1.20-3.70 Normal (applies to non-n umeric results) Abs. Monocytes 0.53 x1000/ul 0.14-0.97 Normal (applies to non-nu meric results) Abs. Eosinophils 0.09 x1000/ul 0.00-0.76 Normal (applie s to non-numeric results) Abs. Basophils 0.05 x1000/ul 0.00-0.22 Normal (applies to non-n umeric results) Abs. Immature Gran. 0.05 x1000/ul 0.00-0.02 Above high normal Abs. Nucleated RBCs 0.00 x1000/ul 0.00-0.02 Normal (appl ies to non-numeric results) The above 24 analytes were performed by [facility] [id number] [facility], ,[place] [address] ID Date Data Source [id number] 06/19/2020 09:12:00 PM EST Name Value Range Interpretation Code Description Data Evelin rce(s) Supporting Document(s) Glucose, Fingerstick 250 mg/dl 70-110 Above high normal The above 1 analytes were performed [facility] [id number] [facility], ,[place] [address] ID Date Data Source [id number] 06/19/2020 04:44:39 PM EST Name Value Range Interpretation Code Description Data Evelin rce(s) Supporting Document(s) Progress Notes [facility] MQAVJb2cEqQOAhNz16/KXBmbHIVsf1HwQNefJEp4YAvkMVMyR1RrSOY6aM4yIBQ9LWsXZuVyFsWwNZD1 m [file] SLSTOP/JCIYBaPFGUFKRMoPzTXbC4/Y3P26xKGwsZ86d2Kvxug61HTQOs18osVTGGgXAXLDWD8zspnhV zd6TldbVoPAiGVZjH7/1TsE7WngpvPd9JEepR66PYxTnZ4tL8Yw2QctmUUr5WplkQQiKWt9DUb+w0eM8 3Qol4g7gojcPTq86TKnICKgfNcAYfsC0YcIzacdgbq tHUg+kkfn2Xkk6Eovrl9owTS6psSXpZKyOurHIdeCuuj4v53KBsqP0H0GR9bSKfaNyeskbCc7GxSUQHK GPScTWHLSJf74SUx1ooE5H+hOXiyhhI3l/NMC43z5K2oNJT04tVta+iC4qaLP7x6EWDTJP5O2+ZTbL8z Shd+E2nHEYVAh+9hkWlpUR5b1xBj4kR+fiItN68Ncw bhDfbEjSi5iHa3GQ7Qfgo1bx5/4lBOy4gQl1P8Rt+0cUCs+LiR8bBQ54UMlxAM3d3gLKAxp1Iy7UdZOY DWG+jFIYxMWMPJzhRx5naXyNltZGyfwmU9LhVqlxHMOz0yYyzgSqnTPQSuaE1d6aEiF/MetGMjxUeeb8 HB72+3KNvGWth+5KpEesZ9t9e+Uqp4bOMf6umWhB7V rz14qBXRzAXHI6gvqBFXrXXcZJjAV54CK+6O5V8m7ykrZUsNhX1R6SoWVADKWU/Ns/8b8TcCk89qtT9s bOfh57lBtYZeQIVI2Mal6i97PVsyYrGRU4F5D6qrWNgoqLaKVGxkcwGspeYgBasGoTCoYCPTsfCLrmFw hernández/HXbTBvY9ge0mfVbkiBXZB2jG/CH7wsNVdjjyf9n [file] MWL3PDVvFaJkCBxgUnStMW0bHBNAPr2+IBsrrFVnrCpiMIWODcSkTDp6XXheLGHVDl8L ID Date Data Source [id number] 06/19/2020 04:05:00 PM EST Name Value Range Interpretation Code Description Data Evelin rce(s) Supporting Document(s) Glucose, Fingerstick 247 mg/dl 70-110 Above high normal The above 1 analytes were performed by [facility] [address],[facility]#: [id number],[place] [address] ID Date Data Source [id number] 06/19/2020 03:24:38 PM EST Name Value Range Interpretation Code Description Data Evelin rce(s) Supporting Document(s) Progress Notes [facility] MWOILr3lMqWGSnTe82/YRCtpQSHwi8DuTVtyRWv6SIqoHXVsT2NxRYA4dA5pSAS2MAmHOkXmCoYrRRB8 lbm [file] AgICAgICAgICAgICAgICAgICAgICAgICAgICAgICAgICAgICAgICAgICAgICAgICAgICAgICAgICAgIC AgICAgICAgICAgICAgICAgICAgICAgDQogICAgICAgICAgICAgICAgICAgICAgICAgICAgICAgICAgIC AgICAgICAgICAgICAgICAgICAgICAgICAgICAgICAg ICAgICAgICAgICAgICAgICAgICAgICAgICAgICAgICAgDQogICAgICAgICAgICAgICAgICAgICAgICAg ICAgICAgICAgICAgICAgICAgICAgICAgICAgICAgICAgICAgICAgICAgICAgICAgICAgICAgICAgICAg ICAgICAgICAgICAgICAgDQogICAgICAgICAgICAgIC AgICAgICAgICAgICAgICAgICAgICAgICAgICAgICAgICAgICAgICAgICAgICAgICAgICAgICAgICAgIC AgICAgICAgICAgICAgICAgICAgICAgICAgDQogICAgICAgICAgICAgICAgICAgICAgICAgICAgICAgIC AgICAgICAgICAgICAgICAgICAgICAgICAgICAgICAg ICAgICAgICAgICAgICAgICAgICAgICAgICAgICAgICAgICAgDQogICAgICAgICAgICAgICAgICAgICAg ICAgICAgICAgICAgICAgICAgICAgICAgICAgICAgICAgICAgICAgICAgICAgICAgICAgICAgICAgICAg ICAgICAgICAgICAgICAgICAgDQogICAgICAgICAgIC AgICAgICAgICAgICAgICAgICAgICAgICAgICAgICAgICAgICAgICAgICAgICAgICAgICAgICAgICAgIC AgICAgICAgICAgICAgICAgICAgICAgICAgICAgDQogICAgICAgICAgICAgICAgICAgICAgICAgICAgIC AgICAgICAgICAgICAgICAgICAgICAgICAgICAgICAg ICAgICAgICAgICAgICAgICAgICAgICAgICAgICAgICAgICAgICAgDQogICAgICAgICAgICAgICAgICAg ICAgICAgICAgICAgICAgICAgICAgICAgICAgICAgICAgICAgICAgICAgICAgICAgICAgICAgICAgICAg ICAgICAgICAgICAgICAgICAgICAgDQogICAgICAgIC AgICAgICAgICAgICAgICAgICAgICAgICAgICAgICAgICAgICAgICAgICAgICAgICAgICAgICAgICAgIC XdZMXmINVjXSToPMFdCQJwYORwKZStKIZmGCUaNQDkHJo8Z3zsPFJeCGCqUG6dZZi4Th6+DQoNCmVuZH F8ggKxiL6TZP4kx7BaQJjeJCDsj3FaTQh0JT5TPPLl WVdtQX4SHMqfet7XIMEaCYRwtSXCs9ppMrIuUPI4RLUhTnjgHX3TLUUkN6psqpJlBJDxQVCHDA8OUcBu A3NcbH14JTMJYt7+UVsbilNiGjkFKjM6ULGqm5EsQPc8XL7IASLgJwlly6SgXtVwMRWUZZlvCH1TGWN9 NBV0CIDoLw1JYNRrF705xxSgUL8AAr6VDfBbZN8gat 9DAiRuNGHaVdhYFuq5IEhlVO6LwVMuZYnDrc2smmLhvcURg7BjuhUrqGUWUWZnvzIOf7H9oxqpSJV3ZI ZrNqLtDdJqPZMrFnroJsFFNGaKFtWdG5Bng6VkBoW0CWHyZqEqREgsSNXjLfK7CL11iJtrEU6ASDFyNE SyYN54IVR8HYUgJn8TCg8KBlVgHU5eio3FHkmzLEAx LdhHKgv2IRwiWC9QzEPaW3XxjZJdu0dSHpDxY1XNPKIzBPXkQm9VRGRbQlIbVPBxMIhaVB2yGWOhKMFA cLeaxfF4SM7PQD8bhlZgBW9SMqTyVi7oWq2XTgNvR5PfI6OmBACtGOGSAOccRR5FGKveTE9sTT5Xy9RT wYVmzQ9esd9BIUGqQSBmYpegtc9YJvxlM6W4nGtrCF TmMjXkBRIAAVhhIM7XVPGaIWQ3NOOtAMAwOHHNJbKoO85sAP8AI9Lno14tCkS2YPUvIoMfGWmtCV16hS tklkNfrQOwoUzuTS7ERy2+SDfsxcErGepESxusEJCPTxAlFluPVaAkOHXlBNYjLQHaBlO9LlKvAz8XMX AwMDAwMDAxNyAwMDAwMCBuDQowMDAwMDIwMzUzIDAw QAKoXR8RDeRuKEImOpQpVWCwJLXfJTMxqs5NXKGzGNGhUUH0ZgQuFFWgGTTdYGjnXJHnCJUlPInsOXRp VHYyJE2DWhCcBSLlTYL3DagyGJLbVGDjjr3YQLTdCEFqQgfsALPuAHAtIFAeBUouFZMuZWChTWD2OEPd FGFmCE6LXsOgHVXyRYUgUsBcROPyKMEbpu7JKWSdHK FwAOF4XXHmNYHwRSFxGVskVHLcHGP1Pkz0CRGjNYFzDV3EZqAiKAPhATU1ATviFKQwBVAgkn4YFKAgDT JkPhrsTSUoNLLzVVSqFAimRUAuAWL2IPW1XXZhSFBuFL6VKrFdGQJgZEdbPpIkNDTeBXPkzf9AEDImDX PjAmH8RuRfGPThEKMzQJrjWJDzVYP7UqX7IFToCLSb LT6PRyZyKQYdFJq6BfCoFBQxGMBcxw0WJATkTYUvYXg2JcPtFHEbQZJxDBxcSDWyUBO5HVPjGGFbXMRp GG3DZaSpUXWrDYb0WrRnXPBmJMUkap5RMESpDODsIJR9PFZtKVXkMVEdWStrJAMoFGTkHzNqZTLgHTGe WN5UAnBuFMYlGgK3VoViVYUiJFCsnl1GFGNdIMKzId JcJIAsFQGlTJCzGOvpPFDxXAJoQqwsLXOsSQDdWW0MRwYcCHDqZuT1SQTpRSTpWZVotu2QzVDidFwacl 1BXWpZOz6WnMabYAN9BSalRx5olXZeDxUvVFHOCt7ZgpAsSRJdVUSHGLwgHESxLYD8WINbNlf7PfG8BD Y0FTMsPAzxDtC8D5JpNPTyL0UsLlD8DEj5ETFtZAGa ESwnZFnmY9FvBADoYXIeY0Z6WvJ6JBC+XB1vLAw+Jy3Xh3ZxeuR6ncOtIYzlTpP7EQ2XNSCCW0TXFh== ID Date Data Source [id number] 06/19/2020 02:46:11 PM EST Name Value Range Interpretation Code Description Data Evelin rce(s) Supporting Document(s) Progress Notes [facility] OUNPQy0cHaNBCxXz43/BVOubGLUzv2MfAHpwXHv9ECmzDSFaO4VdZUE5dC5xDXO0HHiJZgJoYrQmZEW8 lbm [file] DxWDK5AQgiNDa5E6C8PSYeGoI7U8M4SU5uNPNCUf9+UIbocYAzrDvgWMCFAfJ8BDW9XJumYLFJDp3H ID Date Data Source [id number] 06/19/2020 02:10:53 PM EST Name Value Range Interpretation Code Description Data Evelin rce(s) Supporting Document(s) Progress Notes [facility] OESSSp0tDxHLOySz42/EJKfoIZKbx6JnNQanOKh6ETfpXTCyU1CqKXD9yL2eEVY6BUdKAeRdNqPwIOT4 lbm [file] jdE3ueXeHKrcUzq9MN1YZQACT5ICWl== ID Date Data Source [id number] 06/19/2020 12:16:15 PM [facility] Patient: JAGJIT IBARRA : 1960 MR N: [id number] [facility]: [facility] Provider: LAURA DOANLINICAL HISTORY: Check right PICC placementTECHNIQUE: Single AP portable view.COMPARISON: There are no prior studies available for comparison.FINDINGS: Expiratory. Lungs are clear of acute disease. Dual compartmentautomatic implantable cardiac defibrillator leads left subclavian in expectedposition however the radiopaque pacer generator obscures a portion of the leftlung. Heart size is normal. Mediastinal contours are unremarkable. Right PICCtip superior vena cava. Portions of a fixation device in the lower cervicalspine identified as well. No other abnormality notedIMPRESSION: No acute processElectronically Signed by Luke Leggett MD 06/19/2020 12:16 PM Name Value Range Interpretation Code Description Data Evelin rce(s) Supporting Document(s) ID Date Data Source [id number] 06/19/2020 11:44:00 AM [facility] Name Value Range Interpretation Code Description Data Evelin rce(s) Supporting Document(s) Glucose, Fingerstick 216 mg/dl 70-110 Above high normal The above 1 analytes were performed by [facility] [id number] [place] [address],[facility] [id number],[place] [address] ID Date Data Source [id number] 06/19/2020 10:56:53 AM [facility] Indication for transesophageal echocardi ography:Bacteremia.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:Germán Henry procedure:Informed consent obtained from the patient.ASA class 3 patient for conscious sedation.Oral pharyngeal topical anesthesia was achieved with viscous lidocaine gargle.Moderate conscious sedation achieved with 3 mg of Versed, and 75 mcg of fentanyl.Patient was placed in left lateral decubitus position.The Omniplane transesophageal echo probe was inserted through the oropharynx, to the midesophagus first pass without difficulty.Multiple images were obtained.Scope was withdrawn, no apparent c omplications.Findings:There is a small 0.4 x 0.2 vegetation identified on the ICD lead.Normal tricuspid valve.Normal aortic valve.Normal mitral valve.Intact LV function.Impression:ICD lead infectionRecommendation:Explant system. Name Value Range Interpretation Code Description Data Evelin rce(s) Supporting Document(s) ID Date Data Source [id number] 06/19/2020 08:25:31 AM [facility] Name Value Range Interpretation Code Description Data Evelin rce(s) Supporting Document(s) Progress Notes [facility] MHAONt9tBwCEOhPd51/EFLwpIWEoj5HiPKjtIJb3UGsiVIIaD1NhBMD0tB9bDPL9ZTeXHhCdCmOpOYW2 lbm [file] ICAgICAgICAgICAgICAgICAgICAgICAgICAgICAgIC AgICAgICAgICAgICAgICAgICAgICAgICAgICAgICAgICAgICAgICAgICAgDQogICAgICAgICAgICAgIC AgICAgICAgICAgICAgICAgICAgICAgICAgICAgICAgICAgICAgICAgICAgICAgICAgICAgICAgICAgIC AgICAgICAgICAgICAgICAgICAgICAgICAgDQogICAg ICAgICAgICAgICAgICAgICAgICAgICAgICAgICAgICAgICAgICAgICAgICAgICAgICAgICAgICAgICAg ICAgICAgICAgICAgICAgICAgICAgICAgICAgICAgICAgICAgDQogICAgICAgICAgICAgICAgICAgICAg ICAgICAgICAgICAgICAgICAgICAgICAgICAgICAgIC AgICAgICAgICAgICAgICAgICAgICAgICAgICAgICAgICAgICAgICAgICAgICAgDQogICAgICAgICAgIC AgICAgICAgICAgICAgICAgICAgICAgICAgICAgICAgICAgICAgICAgICAgICAgICAgICAgICAgICAgIC AgICAgICAgICAgICAgICAgICAgICAgICAgICAgDQog ICAgICAgICAgICAgICAgICAgICAgICAgICAgICAgICAgICAgICAgICAgICAgICAgICAgICAgICAgICAg ICAgICAgICAgICAgICAgICAgICAgICAgICAgICAgICAgICAgICAgDQogICAgICAgICAgICAgICAgICAg ICAgICAgICAgICAgICAgICAgICAgICAgICAgICAgIC AgICAgICAgICAgICAgICAgICAgICAgICAgICAgICAgICAgICAgICAgICAgICAgICAgDQogICAgICAgIC AgICAgICAgICAgICAgICAgICAgICAgICAgICAgICAgICAgICAgICAgICAgICAgICAgICAgICAgICAgIC AgICAgICAgICAgICAgICAgICAgICAgICAgICAgICAg DQogICAgICAgICAgICAgICAgICAgICAgICAgICAgICAgICAgICAgICAgICAgICAgICAgICAgICAgICAg ICAgICAgICAgICAgICAgICAgICAgICAgICAgICAgICAgICAgICAgICAgDQogICAgICAgICAgICAgICAg ICAgICAgICAgICAgICAgICAgICAgICAgICAgICAgIC EbZQHlRPAsTEIbVMUuDKVcFUEiYUUsYQVnVEDeDQRkLRHxONPwQEXlZUKsOATaJMJoDYMzJBp7L4elYF RiTICmEG9xPTe6Tj1+VBkRVpHiGGT1rnSzfP8WQV4yo2JjMFcsDRDid1VeQKp1UY1GSELwOSajVT7GOX jpyg0JSTFgYUHxrWVHb8nuWrNwKNR6HSJkUdlgPG3W XDQwS7nfjtAgZTIuPVKJHUthXIZGRVynSMZZUR8BDeWjA7GdwI75EXGVDl2+BPpdgiXmOotNDpK9RDHm t9XaNPj8OF6RKYMcBufzt4ApTvSlCGMMOFhsBW1UYMU2QCX7HCRbBz9SBVGgD416adSqBU6AVe8YFvZt YX1jxx3YHmEtPJMsBwxHCtx8PXmqEA2ZbMJxZAzAok 4hsyHftsQAc4MqybCfsSFRdBEaTBteOhQdTA4jBCUFMKZskWMdJwG6JuHqOoSdDLw7ZjDgQW2tLCurLQ 6BCJI0WKpiBSCxIOFmF0bKKzSoNGzmFXGqlDqzVR2HWoUiT8YmbcAveEGzIOMnQEAUWa9+DQplbmRvYm dYLjE9CZMgc4FzJZl4VJ8QCNGzPOooAC6SIUNprA0c DYgoQH4DTtOtJoXmRDFFGfKvM75ryAYrTLe1F3EbXqYoWDKzScdrUUQmDJxqPhZbIXCmBhIbMGuoXK4+ ID4+VHpdEQ8OXQmxazMgTBVpYu6VPGZqKNUvQQ2nUMHxKSUbK6T2tKnmKGIIXcBcX9zuebcqUH9mHPYj S938xSpnrmPlWYE4CBXfPm8SNFKaPNS8LAZkmJNnIv NeHZUKTSpiGZ4PjBRuMCP0mL2fGDcjXNQcQEIfV0mQHoHlzLfjGU76hEauhqLzoZMhCYb+Ey0FTF1rp7 RwVUa1jtCzCTbiPCY6APqtUNObSQElIKAqUIA7WGT1CMISPqFcOGZsGWMyNNplXGMnUBBemd6LBWStCE AxMjEyNiAwMDAwMCBuDQowMDAwMDEzODgzIDAwMDAw BX0JByVrNLVgBCToSUpzQKUsWDLvvx2PGVGdOHVuQcWoRGFzLJFzJSTiLPpnSQHrIJAiRpK7OPFwXROj QS2LNqGfOAVjGHF0XGWsFXQyNRTely5MMMPmWCRdYWq9ZXObGKFbAEImADwpLMPkEBI9FEB9FMHhGJKz OX6YNnVhKRTqPTA3XEAzNFZfFTMzgj1CQOWiKLExCo U5IrMbFUDvMQRiVWthRGWsQMD4AJn6WAIaTVEwGS3HXlQaTPNcLLikIrOnZGVhYHXzwt7ZYYXgGQZfTV GcMgQyJGLrNDXtBFgbICFdGQF8QlR8EGHqWZIbRB6RRyMwHGKsFEk3KHNnDJIkWKTjpv1CSXEfDKCfSG Z9RLXeFXGjYFQtGTqdGVDuQAWzIKK6MVUzTOXsVO6O XhDpLWBfTCY6XPkwTHTcSGLtgk9CNHWoPIXeYEmiHnZyDFPrWUAxKUbbOVZbXFCdYXC9NMWaDLZuMX5N TcLyGWCtNBJnBGRhZTDzJAVlzk7RNRSjRAUtTtH7GqZqWUMwTIEnLOqxKWGpCMAcIQdkFEOoUZOaYW4B TdDmAVPuCEDtJiAuBJZxPXTvtm5HJKYxPIZiKMLqLd HfBXKtJUBaHYq5hqAbhINrVDw2RE0XA0UpekZsSasXKp8St710NDQ4ZVZpGt1YO2jcCf5hESYtYOWSFi 4FXDe3FSI5Xgp4QkzmNCk0YJMtYRdjDaNrX4J3UYz9ZJQ1LkK+QEnkNfisRHouMBI7BNXzOMKtX3Q9N0 UhSgq3CNEmJLq0XK6xFBKVXb6+OIrawDJmgIfeZMBMDtS3XGB2WPhtVWPWZc8D ID Date Data Source [id number] 06/19/2020 07:00:00 AM EST Name Value Range Interpretation Code Description Data Evelin rce(s) Supporting Document(s) Blood Urea Nitrogen 18 mg/dl 7-18 Normal (applies to non-nume kamilah results) Creatinine 0.82 mg/dl 0.67-1.17 Normal (applies to non-numeric resul ts) N-Acetylcysteine (NAC) and Metamizole bradley ve the potential to falselydepress Creatinine results. Baseline values before medication adminstration are recommended. Patients undergoing treatment with phenindione will have falselydepressed results. Patients on phenindione therapy should be tested with an alternativeCREA method.Toxic levels of acetaminophen may lead to falsely depressed results forpatient samples. Glomerular Filtration Rate >90.00 mL/min/1.73m2 GFR Reference Ranges:Normal Function or Mild Renal Disease,if clinically at risk:>or= 60Moderately decreased:30 - 59Severely decreased:15 - 29Renal Failure:<15 Please note that the MDRD equation requires an additional adjustment forAfrican-Americans (multiply the GFR result by 1.210).Glomarular Filtration Rate (GFR) is estimated based on the MDRDequation, which assumes a steady state for creatinine ([place] Int Med 139/2 137-149, 2002), as recommended by the NationalKidney Disease Education Program in conjunction with the National Institutes of Health and the National KidneyFoundation. The [place] method used in calculating this result is traceable to IDMS standards. Glucose 202 mg/dl 70-110 Above high normal [facility] Sulfasalazine has the potential to false ly depress Glucose results. Sulfapyridine has the potential to falsely elevate Glucose results. Baseline values before medication administration are recommended. Calcium 9.2 mg/dl 8.5-10.1 Normal (applies to non-numeric resul ts) Sodium 136 mEq/L 136-145 Normal (applies to non-numeric resul ts) Potassium 3.7 mEq/L 3.5-5.1 Normal (applies to non-numeric resul ts) Chloride 102.0 mEq/L 98.0-107.0 Normal (applies to non-numeric resu lts) Carbon Dioxide 30.0 mMol/L 21.0-32.0 Normal (applies to non-numeric results) Anion Gap 7.7 7.0-15.0 Normal (applies to non-numeric resul ts) The above 10 analytes were performed by [id number] [address] ID Date Data Source [id number] 06/19/2020 07:00:00 AM EST Name Value Range Interpretation Code Description Data Evelin rce(s) Supporting Document(s) AST 25 IU/L 15-37 Normal (applies to non-numeric resul ts) Sulfasalazine and sulfapyridine have the potential to falsely depressAspartate Aminotransferase results. Baseline values before medication administration are recommended. ALT 28 IU/L 16-61 Normal (applies to non-numeric resul ts) Sulfasalazine and sulfapyridine have the potential to falsely depressAlanine Aminotransferase results. Baseline values before medication administration are recommended. Alkaline Phosphatase 114 mIU/ml 50-136 Normal (applies to n on-numeric results) Total Bilirubin 1.10 mg/dl 0.20-1.00 Above high normal [facility] Blood Urea Nitrogen 18 mg/dl 7-18 Normal (applies to non-nume kamilah results) Creatinine 0.82 mg/dl 0.67-1.17 Normal (applies to non-numeric resul ts) N-Acetylcysteine (NAC) and Metamizole bradley ve the potential to falselydepress Creatinine results. Baseline values before medication adminstration are recommended. Patients undergoing treatment with phenindione will have falselydepressed results. Patients on phenindione therapy should be tested with an alternativeCREA method.Toxic levels of acetaminophen may lead to falsely depressed results forpatient samples. Glomerular Filtration Rate >90.00 mL/min/1.73m2 GFR Reference Ranges:Normal Function or Mild Renal Disease,if clinically at risk:>or= 60Moderately decreased:30 - 59Severely decreased:15 - 29Renal Failure:<15 Please note that the MDRD equation requires an additional adjustment forAfrican-Americans (multiply the GFR result by 1.210).Glomarular Filtration Rate (GFR) is estimated based on the MDRDequation, which assumes a steady state for creatinine (Klarissa Int Med 139/2 137-149, 2002), as recommended by the Nationaldney Disease Education Program in conjunction with the National Institutes of Health and the National KidneyFoundation. The [place] method used in calculating this result is traceable to IDNC standards. Glucose 202 mg/dl 70-110 Above high normal [facility] Sulfasalazine has the potential to false ly depress Glucose results. Sulfapyridine has the potential to falsely elevate Glucose results. Baseline values before medication administration are recommended. Calcium 9.2 mg/dl 8.5-10.1 Normal (applies to non-numeric resul ts) Total Protein 7.7 g/dl 6.4-8.2 Normal (applies to non-numeric re sults) Albumin 3.1 g/dl 3.4-5.0 Below low normal Sodium 136 mEq/L 136-145 Normal (applies to non-numeric resul ts) Potassium 3.7 mEq/L 3.5-5.1 Normal (applies to non-numeric resul ts) Chloride 102.0 mEq/L 98.0-107.0 Normal (applies to non-numeric resu lts) Carbon Dioxide 30.0 mMol/L 21.0-32.0 Normal (applies to non-numeric results) Anion Gap 7.7 7.0-15.0 Normal (applies to non-numeric resul ts) The above 16 analytes were performed by [facility] [address],[facility]#: [id number],[place] [address] ID Date Data Source [id number] 06/19/2020 06:55:00 AM EST Name Value Range Interpretation Code Description Data Evelin rce(s) Supporting Document(s) WBC 9.03 x1000/ul 4.80-10.00 Normal (applies to non-numeric re sults) RBC 4.01 x1Mil/ul 4.70-6.[address] [facility] Hemoglobin 11.6 g/dl 14.0-18.0 Below low normal [facility] Hematocrit 34.9 % 42.0-52.0 Below low normal [facility] MCV 87.0 fL 80.0-94.0 Normal (applies to non-numeric resul ts) MCH 28.9 pg 27.0-31.0 Normal (applies to non-numeric resul ts) MCHC 33.2 g/dl 32.2-37.0 Normal (applies to non-numeric resul ts) RDW 12.2 % 11.5-14.5 Normal (applies to non-numeric resul ts) Platelet Count 314 x1000/ul 130-400 Normal (applies to non-numeric results) MPV 9.4 fL 9.4-12.4 Normal (applies to non-numeric resul ts) Neutrophils 71.9 % 40.0-74.0 Normal (applies to non-numeric resu lts) Lymphocytes 19.8 % 19.0-48.0 Normal (applies to non-numeric resu lts) Monocytes 6.1 % 3.4-9.0 Normal (applies to non-numeric resul ts) Eosinophils 1.0 % 0.0-7.0 Normal (applies to non-numeric resu lts) Basophils 0.4 % 0.0-2.0 Normal (applies to non-numeric resul ts) Immature Granulocytes 0.8 % 0.0-0.5 Above high normal Nucleated RBCs 0.00 % 0.00-0.20 Normal (applies to non-numeric r esults) Abs. Neutrophils 6.49 x1000/ul 1.92-8.31 Normal (applies to non-numeric results) Abs. Lymphocyte 1.79 x1000/ul 1.20-3.70 Normal (applies to non-n umeric results) Abs. Monocytes 0.55 x1000/ul 0.14-0.97 Normal (applies to non-nu meric results) Abs. Eosinophils 0.09 x1000/ul 0.00-0.76 Normal (applie s to non-numeric results) Abs. Basophils 0.04 x1000/ul 0.00-0.22 Normal (applies to non-n umeric results) Abs. Immature Gran. 0.07 x1000/ul 0.00-0.02 Above high normal Abs. Nucleated RBCs 0.00 x1000/ul 0.00-0.02 Normal (appl ies to non-numeric results) The above 24 analytes were performed by [facility] [id number] [place] [address], ,[place] [address] ID Date Data Source [id number] 06/18/2020 09:23:00 PM EST Name Value Range Interpretation Code Description Data Evelin rce(s) Supporting Document(s) Glucose, Fingerstick 242 mg/dl 70-110 Above high normal The above 1 analytes were performed by [facility] [id number] [place] [address], ,[place] [address] ID Date Data Source [id number] 06/18/2020 04:11:00 PM [facility] Name Value Range Interpretation Code Description Data Evelin rce(s) Supporting Document(s) Glucose, Fingerstick 233 mg/dl 70-110 Above high normal The above 1 analytes were performed [facility] [id number] [place] [address], ,[place] [address] ID Date Data Source [id number] 06/18/2020 03:57:09 PM [facility] Name Value Range Interpretation Code Description Data Evelin rce(s) Supporting Document(s) Progress Notes [facility] IXYELm3sNySHKqGe85/WIMrqFTNcu0QbJLjzTFi1JUoyUDIaY4GrBUZ8gN2oNKZ8CTwIPqNzFyQmZNP5 lbm [file] KZQ5UMBqKFFhSZ4rTPFQIl0+KVzsoCNmhAtuLMBXNbVwSmP0QXloCOHBMv0E ID Date Data Source [id number] 06/18/2020 11:31:00 AM EST Name Value Range Interpretation Code Description Data Evelin rce(s) Supporting Document(s) Glucose, Fingerstick 194 mg/dl 70-110 Above high normal The above 1 analytes were performed by [facility] [id number] [facility]#: [id number],[place] [address] ID Date Data Source [id number] 06/18/2020 07:50:20 AM EST Name Value Range Interpretation Code Description Data Evelin rce(s) Supporting Document(s) Progress Notes [facility] WAFCJi4cYfQUBwIy78/XJSntDRFic3ZaJJxoDQn2ETtxWPVcF3NnBKV5eS3xANO5EAtFLzThZdBmLTH4 lbm [file] VeI6EGelLIngMUL0YVKdWvSqDP7OYa9IKuO2DDZ2jCHfEe7ADSF4EVOHGjFsIO2WRTb= ID Date Data Source [id number] 06/18/2020 07:23:00 AM EST Name Value Range Interpretation Code Description Data Evelin rce(s) Supporting Document(s) Glucose, Fingerstick 189 mg/dl 70-110 Above high normal The above 1 analytes were performed by [facility] [id number] [place] [address], ,[place] [address] ID Date Data Source [id number] 06/18/2020 05:01:00 AM EST Name Value Range Interpretation Code Description Data Evelin rce(s) Supporting Document(s) Blood Urea Nitrogen 17 mg/dl 7-18 Normal (applies to non-nume kamilah results) Creatinine 0.92 mg/dl 0.67-1.17 Normal (applies to non-numeric resul ts) N-Acetylcysteine (NAC) and Metamizole bradley ve the potential to falselydepress Creatinine results. Baseline values before medication adminstration are recommended. Patients undergoing treatment with phenindione will have falselydepressed results. Patients on phenindione therapy should be tested with an alternativeCREA method.Toxic levels of acetaminophen may lead to falsely depressed results forpatient samples. Glomerular Filtration Rate 84.00 mL/min/1.73m2 GFR Reference Ranges:Normal Function or Mild Renal Disease,if clinically at risk:>or= 60Moderately decreased:30 - 59Severely decreased:15 - 29Renal Failure:<15 Please note that the MDRD equation requires an additional adjustment forAfrican-Americans (multiply the GFR result by 1.210).Glomarular Filtration Rate (GFR) is estimated based on the MDRDequation, which assumes a steady state for creatinine (Klarissa Int Med 139/2 137-149, 2003), as recommended by the Nationaldney Disease Education Program in conjunction with the National Institutes of Health and the National KidneyFoundation. The [place] method used in calculating this result is traceable to IDNC standards. Glucose 176 mg/dl 70-110 Above high normal [facility] Sulfasalazine has the potential to false ly depress Glucose results. Sulfapyridine has the potential to falsely elevate Glucose results. Baseline values before medication administration are recommended. Calcium 9.5 mg/dl 8.5-10.1 Normal (applies to non-numeric resul ts) Sodium 135 mEq/L 136-145 Below low normal Potassium 3.8 mEq/L 3.5-5.1 Normal (applies to non-numeric resul ts) Chloride 100.0 mEq/L 98.0-107.0 Normal (applies to non-numeric resu lts) Carbon Dioxide 31.3 mMol/L 21.0-32.0 Normal (applies to non-numeric results) Anion Gap 7.5 7.0-15.0 Normal (applies to non-numeric resul ts) The above 10 analytes were performed by [facility] [id number] [place] [address],[facility]#: [id number],[place] [id number] ID Date Data Source [id number] 06/18/2020 04:53:00 AM EST Name Value Range Interpretation Code Description Data Evelin rce(s) Supporting Document(s) WBC 7.34 x1000/ul 4.80-10.00 Normal (applies to non-numeric re sults) RBC 4.21 x1Mil/ul 4.70-6.[address] [facility] Hemoglobin 12.0 g/dl 14.0-18.0 Below low normal [facility] Hematocrit 36.4 % 42.0-52.0 Below low normal [facility] MCV 86.5 fL 80.0-94.0 Normal (applies to non-numeric resul ts) MCH 28.5 pg 27.0-31.0 Normal (applies to non-numeric resul ts) MCHC 33.0 g/dl 32.2-37.0 Normal (applies to non-numeric resul ts) RDW 12.1 % 11.5-14.5 Normal (applies to non-numeric resul ts) Platelet Count 339 x1000/ul 130-400 Normal (applies to non-numeric results) MPV 8.8 fL 9.4-12.4 Below low normal Neutrophils 63.8 % 40.0-74.0 Normal (applies to non-numeric resu lts) Lymphocytes 26.3 % 19.0-48.0 Normal (applies to non-numeric resu lts) Monocytes 6.8 % 3.4-9.0 Normal (applies to non-numeric resul ts) Eosinophils 1.6 % 0.0-7.0 Normal (applies to non-numeric resu lts) Basophils 0.7 % 0.0-2.0 Normal (applies to non-numeric resul ts) Immature Granulocytes 0.8 % 0.0-0.5 Above high normal Nucleated RBCs 0.00 % 0.00-0.20 Normal (applies to non-numeric r esults) Abs. Neutrophils 4.68 x1000/ul 1.92-8.31 Normal (applies to non-numeric results) Abs. Lymphocyte 1.93 x1000/ul 1.20-3.70 Normal (applies to non-n umeric results) Abs. Monocytes 0.50 x1000/ul 0.14-0.97 Normal (applies to non-nu meric results) Abs. Eosinophils 0.12 x1000/ul 0.00-0.76 Normal (applie s to non-numeric results) Abs. Basophils 0.05 x1000/ul 0.00-0.22 Normal (applies to non-n umeric results) Abs. Immature Gran. 0.06 x1000/ul 0.00-0.02 Above high normal Abs. Nucleated RBCs 0.00 x1000/ul 0.00-0.02 Normal (appl ies to non-numeric results) The above 24 analytes were performed by [facility] [id number] [facility], ,[place] [address] ID Date Data Source [id number] 06/17/2020 08:56:00 PM EST Name Value Range Interpretation Code Description Data Evelin rce(s) Supporting Document(s) Glucose, Fingerstick 263 mg/dl 70-110 Above high normal The above 1 analytes were performed by [facility] [id number] [facility], ,[place] [address] ID Date Data Source [id number] 06/17/2020 04:48:52 PM EST Name Value Range Interpretation Code Description Data Evelin rce(s) Supporting Document(s) Nursing Note [facility] LMBRHh9gWfXQNqMb24/MDBhkHIUjf7DyIUwtBIa7XHgvMLIzT7XjJMH1aH5tVZC4AXrIGzHoGtNuDFMb [facility] [file] P3CyiuGBVvLJc8KBFjGZEtOJG9YDJwLJUeGV8eWZ ANCj4+PNbtfZMqqRcmYDLDMii6YBWOIhHuOS0ONAa= ID Date Data Source [id number] 06/17/2020 04:18:00 PM EST Name Value Range Interpretation Code Description Data Evelin rce(s) Supporting Document(s) Glucose, Fingerstick 275 mg/dl 70-110 Above high normal The above 1 analytes were performed by [facility] [id number] [facility]#: [id number],[place] [address] ID Date Data Source [id number] 06/17/2020 02:33:53 PM EST [facility] Name Value Range Interpretation Code Description Data Evelin rce(s) Supporting Document(s) Progress Notes [facility] VVYJTi7zOyABQwBl41/VROhnTWVft3QdHYgqWIz5YGoiCZAuL3DrKZE1mZ4wSDT5JFiWVbOnUhLsYMHf lbm [file] BSDQogICAgICAvRjIgMTggMCBSDQogICAgICAvRjMg KgDrTOWTJAcvGNWwARRyLzNhXvOlPSPAQYucJTZjLXQxArPtOphqDAQQHr3RYiYiHINnRP2zqrUxtQT0 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 HELPER+Ei1PKILpQO8KrIHFU1GvrOHaVYsmJ4ZJVY2OCQP7QT4WyYJpKD0HyQDLD4TaiJZbGv4aJHBig3Eo Lr2kE3WGJQCVCVVfHYffDPnbVGDjQBa5D2V9TAXxC2 DLO856yFQanDd2Hj7dL7ZCQXvIJfBlUWjgIJsgPQZvKXx8A8U0PNVhD3DTP0EkOaIpvhSqX8B+PiAvUE PLXK3MBYLEVTw1U3V8xFDoX1N6eMlHtFX9VA7ATR0UqXLemCDtb94+YxLWUqRhTUZdV6VDHUICIhSdGZ eqQPmwTYZrLAw7N6H0QQOqN4BUF2liO3h0RT5+PiAN MlWaZZCqYn1MQfDyVs5EHyNdTM4ijn8CUxzkNNSfOoqUQmb6D0vtsfd4eXPbVbY4G3A9YeV4mSInCV1W E2E9pFYfZIR4PLDckAM+Ig7Ue1KjERFyMXo5L0hjQAPdYPRmXxMttJ86R++9jpxxuCL9O4f5KMSMqWHe oQvSlbYfS1pXOBM3b8M2AHt/Cp1JMPV9tBa2jQViDU JdXLl1dQ6ayFr2HgXfHI20AXKnVZptzJ1sKtg7Y4Xoe2JiEh5jAu2pnIHqRa7CLlNrBPZ6kcYeYpAUFe I9mOyfsnveERZ3E4z7qQJ3Th13z5mdblAzh6PbByL9ZSrkBBGlJvZkbmVwWHT6lfQjcU2ajxAcUp4URZ IcYMugkfUhEoVRTp1NRjGtVL43MywqcK9hsYO+DQog ICAgICAgICAgICAgICAgICAgICAgICAgICAgICAgICAgICAgICAgICAgICAgICAgICAgICAgICAgICAg ICAgICAgICAgICAgICAgICAgICAgICAgICAgICAgICAgICAgICAgDQogICAgICAgICAgICAgICAgICAg ICAgICAgICAgICAgICAgICAgICAgICAgICAgICAgIC AgICAgICAgICAgICAgICAgICAgICAgICAgICAgICAgICAgICAgICAgICAgICAgICAgDQogICAgICAgIC AgICAgICAgICAgICAgICAgICAgICAgICAgICAgICAgICAgICAgICAgICAgICAgICAgICAgICAgICAgIC AgICAgICAgICAgICAgICAgICAgICAgICAgICAgICAg DQogICAgICAgICAgICAgICAgICAgICAgICAgICAgICAgICAgICAgICAgICAgICAgICAgICAgICAgICAg ICAgICAgICAgICAgICAgICAgICAgICAgICAgICAgICAgICAgICAgICAgDQogICAgICAgICAgICAgICAg ICAgICAgICAgICAgICAgICAgICAgICAgICAgICAgIC AgICAgICAgICAgICAgICAgICAgICAgICAgICAgICAgICAgICAgICAgICAgICAgICAgICAgDQogICAgIC AgICAgICAgICAgICAgICAgICAgICAgICAgICAgICAgICAgICAgICAgICAgICAgICAgICAgICAgICAgIC AgICAgICAgICAgICAgICAgICAgICAgICAgICAgICAg ICAgDQogICAgICAgICAgICAgICAgICAgICAgICAgICAgICAgICAgICAgICAgICAgICAgICAgICAgICAg ICAgICAgICAgICAgICAgICAgICAgICAgICAgICAgICAgICAgICAgICAgICAgDQogICAgICAgICAgICAg ICAgICAgICAgICAgICAgICAgICAgICAgICAgICAgIC AgICAgICAgICAgICAgICAgICAgICAgICAgICAgICAgICAgICAgICAgICAgICAgICAgICAgICAgDQogIC AgICAgICAgICAgICAgICAgICAgICAgICAgICAgICAgICAgICAgICAgICAgICAgICAgICAgICAgICAgIC AgICAgICAgICAgICAgICAgICAgICAgICAgICAgICAg ICAgICAgDQogICAgICAgICAgICAgICAgICAgICAgICAgICAgICAgICAgICAgICAgICAgICAgICAgICAg NKNtYUIeRSDlYKWsICXxPYMpCDEjPJRzNAIqMFWbNIAsDQQvBTAyUDWdUPAaKQFdKRb3Q5gbJGIjJXWw JP8lZWx2Qa3+MRhWCwQiFUT3arEjqT8PID1sq1BiKJ mmSZSup2HkBUw1JF9OLOMrBLreRA2FWYdcoc2NBIWdKJFhcCXAb4elBbXyMRA4TMMaDhtkSV0RMGXnW3 izjbOxPPDgDXWXBVofULNSPFdqQSOQAU1OZhLaX2FhwV91MOAGZk6+HFblbcOcSdcTFhLaIVRbc5EoKM f5WW9TQCNdZatxm4OdWtYpQHDVLWzsHW8GKSC2ZHIv XZEdVd8PAPEhO641mzAwKA2BTe0VFuHzES6qnj7KOuFySRDaNtdMKti3CYbxRO7DuTHaJOqKtj7lqtVs ndPFk7JzjbXeyECCWBDonJNarWFQEE1xr1UrhnE3RCxmTEUmSPTcNX9mKx6vLDAkDBFvTbJdYYPXBW5X XDDbHVSssNAsEMZpSUVZOX7WELjvOPJ2EltxrlDtfN LvTBanKS8EIGTrwmBsMjMyCOBVJFy+Jr0NPE9rp7UnWFmkSfKkBQ8yik6WXTsOTiVzE5Y2qHGeJ7J2RX nxSk1WRTIwIIEdUlceWOGCJJtcNG8IZH3pjlN7NR6ArHIqJGCrTWCjlBOaMPl6L20bnUCqHUpaIM6YOE A+Yadira+Cq2URCJdSUOlMSDlItZfEXHRKuKjU9BlU6KU t1XfR2GbTS20hAthheWrJNsaJM9ZBN4cRQAuYCZSYK5EwWLhaV4ajwKsELVnOIFEVwOyF08jiIJpODBx EFC8NQRxYz2EZXVrK6JmtsYdzOlkyyFvGVKsTTQOTV2NEUgvgbAmoCSfiPosZY94nDyyPH4KXw7UJsEh US0mal8FcYFsWx2GXMDmJc8JQUGzTEAdXECkVRU7FT SlGrYrYIfwEGGyBEVrYWT6GZOvUYZzNP1RYyHkVHCkWUK1UjFiPZDkSIYwpp2PYEVuJUPqNufhVfUfUJ ZsSYJgZTliMVWfWOSiCGA7ZDCyVFShCA4KXsRkEVLwGFG5QGuuIYDoVEKaam7GRJDtVUWcBuMiEmEzIJ FaSNUsIUvsOAGqJCK3ZzPfCGSvDNYwKF0ZJrOoGGOi UWE7BAGhPYBuOSUvuv3TTQRtMYQrMyT7RNNkAHXwHDJnZTvySSXjIEB6QvvyIDJmOSLcIS8AJaEdCQDe BPo2XVLdEOCkMQNmxv9DWOEoHFGjANw3PrPpWDJiIICcMYqrASOhGHM7FOYcSEAePMKhDU9SKzAbTOQb OTUkPFRnREIrPJXhtk1QSZDhLRLeEJU0YCRmOREsPA HhNXgzKMReRQItWHcbGTOrGVOzBB0NRtJhLXLuZIM0ZMDcUMOxRUUuiv9VYIQhMYIxBVG2XvWaIEMpFS KwDYonKSYnCPTpJQS5HCGlVJPcFO3COwTyLJOtAJV0GAZxCCBfRUPmdu6OJDJrNRViGfe8HtTvCSFmHA BnGGmzDPTdAYJbAZkrWDLwCNAsJN8RQfRnLNJyFBZz NNHvFNAxVMPvkh5GDYAdCKXiRSD3OVRiXZBwUTJtGXjnFBAaDZR0FHZyCQIjVHTiBC8JQlDoQLEjGJN1 VRycPVNuIPUfcs0HLWOtBDKpZVurWhMuIHMcODIlZZhjLIVaBHS0ABU6SDNiWOFsMR6UGsVjYWIjMFYs NSSkVIYjGWZefq9BBOTeABZqHhebYdWsAIBaTLJzSM uaQWFaLLI7LAX7CQLyYIJeWP0CDjDsXZSoKSgpEkPsEKRuRXWqbk7WtILyxDmfqx4IRAfSBr3NiNzcWJ AzCSwaWa0wgEWzKxIiCAGXNs2DjrRdIONoHDYEMSfmGBBjFSTcWbLuQJJqNXShQgP1I3IeBVK6LEAqXH KkOaEgKuDnXaD7YXYlAKMiENUnATKwYfPaVyF1KRCo NLSjXwP8HsXwMfJ+DA7oXOi+Cq8Mr2PszlQ0feSkBYxxZREyHa6RJKIHL7DULf== ID Date Data Source [id number] 06/17/2020 02:14:47 PM EST Name Value Range Interpretation Code Description Data Evelin rce(s) Supporting Document(s) Nursing Note [facility] AEBHDo6qFyLYUqCq84/FWJnpGSUhr5PwAOnfYAw8RVlkXOIzY8ReISX0aR6oODG5IHlLKcZpCmMrINFn lbm SbMqqKLsMjWIHkNbvPMaDwTDnqDfvisSCpIR9LdNG5JPWvB89gZUBeIVKpU1QfALmmFJ3+PHpqEIJ3qq FtfI9ZBHBZUT5I4sVObB+0/3KtzjGs5IQ4nuajYXydCRILmDUVbJpIFysnQrU/A7MsRE6PmVvxWugSLG u8hUj5YIyeDc77BjgAUMmDz/OqQkGXN/S9T4HyosoO ta+DMZuEJBLmHaXmXi40QTE4JfQPA52DW420iBNVHnaPJ7D4nVlNkIDeq+xj2TacuQ5qQ3FyRqMhTAHc dBUhsYfBk0WmwdEKhu7zrJJ4i3zov2bxZDayvEO0Helm7GBAvt5bydaIVRpHCvFVPAwE4VWcpjKEomUS RZHoAmc+RPuTLcwZtinRI1ujUW6Y7KZvSRDUCZrGjE SfJLlU8IoCJlkOUJq6yNo7fOJuDU2DYTgb6OwVQHNvaJTNtHiWapbj3L6SuctYMKkfgG/V7GJ8Cr/xpv 8EIBN09vCsPTA7pcoRsCkUsi82QEiNpfzAen9gmydCvgoBVpLDbtHc+Vasyl/GFK+6k0NCbMAb6F1metps [file] ID Date Data Source [id number] 06/17/2020 12:44:02 PM EST Name Value Range Interpretation Code Description Data Evelin rce(s) Supporting Document(s) Progress Notes [facility] ISDGAl5sSnPXIxIy01/LBOptCHHgz4MiALgpESe2YBmgVVNzG2UfDIY4hM6pDCC3GXgOWtLsXiDcJOIh lbm [file] RjAgMTQgMCBSDQogICAgICAvRjEgMTcgMCBSDQogICAgICAvRjIgMjAgMCBSDQogICAgICAvRjMgMjMg JKSGLEzoPDSiBWKrHnJnSmTkEZPVFMpvZSWoOXXiEnIoHrnvKNXQPWzqMIDmRISuVfDfXbXuYBTYJf1Q QvKzTIHnGP9kgePuiYS2DCD+Et7PJNSmTW8GbGOKQ0 DmdZUeQUezU9YXFO6TKBQ4HU3SoFTtDG1HwBTPR8DjtQSzDj5aHDVod8BjEq1oP5KLECVGTIHjGGckDQ okHYOmMCy5G8B3YHCmU7SJK327yBDejGc7Gv8pX9VAXTwNJaPgWMfnGKwbIIUeIZm2I6I5DAMxX7YBR0 SjAgPpssVxS5O+DeBpBHOQNR5QHDYVXIg6Y6Q1fVKf X3D9aXhGfWH9XY8SVM2FrRPjxQOqx38+GbDTTpXrNZPgT2NKTMJRUlCuSJqtLSepNSDyUJd6P4A9URAx Z4CAB3lmP5x3HI4+QlZAFrIvVQLeNa6DCuJqTq8OXcXpAD0ktf8FMkXfEPKwUevGPgk9T1ctxzs2zPVa ExW9F1F3BhY8fUSjBD4PC5V1bFAyOVU6GBHuwSZ+Pg 7Rc4WbKJYbYJb9X5gnXMSdCYHbBsJbtY58X++0rgxelWE4L1a3QKGPgXNiqYhOrmAbK6sORXN5y0F6YY c/Yt1MPAY6wVj8mTBtHPRdHJb6rM7xfIa4PsTaNT68MMBbGCdqpY6iWnr8N3Okg6KvAt4yUj2ddCSvFu 0RPxJhOKB2ggRiMpESNcM1wEylthywOQX7X3x8cDV6 Nr89n2puonAou8KfSmN0NYslOJMxGzPtovTkARW0wrErrS6ispLpGo5VACAoQFmqrdLgMgKWHe5WNhNi LV25BbnkrP8zrGY+DQogICAgICAgICAgICAgICAgICAgICAgICAgICAgICAgICAgICAgICAgICAgICAg ICAgICAgICAgICAgICAgICAgICAgICAgICAgICAgIC AgICAgICAgICAgICAgICAgICAgICAgDQogICAgICAgICAgICAgICAgICAgICAgICAgICAgICAgICAgIC AgICAgICAgICAgICAgICAgICAgICAgICAgICAgICAgICAgICAgICAgICAgICAgICAgICAgICAgICAgIC AgICAgDQogICAgICAgICAgICAgICAgICAgICAgICAg ICAgICAgICAgICAgICAgICAgICAgICAgICAgICAgICAgICAgICAgICAgICAgICAgICAgICAgICAgICAg ICAgICAgICAgICAgICAgDQogICAgICAgICAgICAgICAgICAgICAgICAgICAgICAgICAgICAgICAgICAg ICAgICAgICAgICAgICAgICAgICAgICAgICAgICAgIC AgICAgICAgICAgICAgICAgICAgICAgICAgDQogICAgICAgICAgICAgICAgICAgICAgICAgICAgICAgIC AgICAgICAgICAgICAgICAgICAgICAgICAgICAgICAgICAgICAgICAgICAgICAgICAgICAgICAgICAgIC AgICAgICAgDQogICAgICAgICAgICAgICAgICAgICAg ICAgICAgICAgICAgICAgICAgICAgICAgICAgICAgICAgICAgICAgICAgICAgICAgICAgICAgICAgICAg ICAgICAgICAgICAgICAgICAgDQogICAgICAgICAgICAgICAgICAgICAgICAgICAgICAgICAgICAgICAg ICAgICAgICAgICAgICAgICAgICAgICAgICAgICAgIC AgICAgICAgICAgICAgICAgICAgICAgICAgICAgDQogICAgICAgICAgICAgICAgICAgICAgICAgICAgIC AgICAgICAgICAgICAgICAgICAgICAgICAgICAgICAgICAgICAgICAgICAgICAgICAgICAgICAgICAgIC AgICAgICAgICAgDQogICAgICAgICAgICAgICAgICAg ICAgICAgICAgICAgICAgICAgICAgICAgICAgICAgICAgICAgICAgICAgICAgICAgICAgICAgICAgICAg ICAgICAgICAgICAgICAgICAgICAgDQogICAgICAgICAgICAgICAgICAgICAgICAgICAgICAgICAgICAg ICAgICAgICAgICAgICAgICAgICAgICAgICAgICAgIC ZnYBUfNWScQEXkSMNjXNAwAUBvXGIgFPVjZNCjNFRnGGp2A6ieMMUsHLRjME6cQHl7Tx7+DQoNCmVuZH E3lkPkjG2EON1rd5GdDOdoYCUje8OyGKq3IJ6LNYKfOHogZA3VPMjhle3TWQMnNRHphMQQo9wkKnWfXX O6HTNjNkmgFJ3LSNMlW5bxgvVtGWLdYNLHEFjuYCSO FOysEGUGLPHgGLKrLdRfVXjeQZ0Po4WluCB1OBo+Js2VGN9lc8KsKWdvIZUuRS6vei9PIHsGDyEcR5Bx xpQ3QHC0CTHoFe4LJZHrZHRacMUqMuLxNNGSMyKiU0VnoJ40ZOKGLd0+SHfdlbTtFftNQbZ0GDGbx8Ja BOp6QL8RMFOjSTv1fODxLHLrO0Nwk1ZeVu77IDXaXa eoE4SsJK2vBHSJQD4tHOKOYXOfmTWgWyDiLqKwHpYoHJJ0IIzjBH9jARqwRN3EMXH4ODpiFCJhMZFcH6 dIMcAaABygATJngUblQN8UFbPdX5YrqpIzzSEmTHFhNIQXEj4+PQgnzqKaRlcBOgC5IGJfj7CxBRx1SU 9HGWKnPDcdDX0EIGJcnO1lOYpeOR4WLyCiLvHiZCST SvWlU69olZTqERv9H1HgDkGmTQSqBlrvTOSfNMzvJpSsAGLjKoUoQFcdGQ7+ID4+YPikUA7WPVqdfgCn CYYwPv3DEMVpRQQrAF3hLSMoZVFaC9Y1aXhnKLCBYiPhP5vtfcgxAF6eVUTqF535oTnedbNwBLO7QKEd Ow7LLOTkCKH8GYVzkPWcAwRsIRFDMXpcTP2LaOGeIT K5hN9eMJesJZDpXMMlX1yDIdNtsQvdVK06uUbhtbOjtDTbRBo+Rs9FZE9hk2PtTZl2zmJiLDvaMFD9PM pjRXYdSIRpJYQfRYM2WHK7VOFMPfVvRQMbOAPdZRgaTSQhRVHqbd7GFGQwTEYfBKQ7BYNwQMBoOAHeUD jrBXTnEJUtEFTlIMHdZCPvIJ6PYcLlKDHoJAPgOZsj YBGoXZHijk1EZQHeDOOyGsm8ZBSyHEQdICIrDGxqSLBcWXLsCRE0JYCwGYXlGV1XPsIkPKJdDTC1ZrLh ZRVcTMDmew4ILUIuDGFaCac6CeCjQVVuDESnLRwtZPXoGZA0FPYkMOYeXBSpED6XTeZfIJUrATd5Azsl GZYzFNPfxb9KLAQoJIJqZGR3KULrMKVoNYIpPWzoZI BnSMSoYtB7GINqZPWbYY7RNaTnTZPvFVU7BSXcLZIwZHIkyt9ETVQmVQVeJinmRlAeXUHmDDPnMDihMF EqMKRfTLQ3KKNrYSAgDD1JIhQpSPVxAWS9XsLlFPSiRZYabz0GPEMbEUDtDKD8SrBtGXQsGINqJClaOH YbEFX5QyX3MKUbRCLtXE1XBcBrWLLiULBuEWIdLWIa ARKekf4BRAXaTXIvUUVzKJJlHVNxAREuUUvaOBDyPLS5EaWaYRXwWCRcHW7IWcNrGNUkJSC6OUtkWAAg XBBaag0XZPXaQBYhPee2FCInVVDmCPVdTGbySPDgUZH0LBT5DNUjGIVvNH7WYdIeXNDqQLbcAQYrYMMy BBPazl9ZHHXrDJYlYHBfAGUnDDXhDEDhRExmFUXvYH Q5SOT9RJHcEGVyVL0MGiEbAODpYHyoUaQwUCXfJEAojg3LIFOjGXSlSSU5QPYjXRWpHAWyGJuuCSHuUV U1HyD3GQPgBWQvNH9ZIpCrVUSiEbB9FEesROSoZRSgvp6KZFWfMLHxTApdMQRnMPTkUDIiLCbzNXYlGX BzFBD5UVTqXOQiFO9DIyFvSAZsImY0ULXcMOAyJVVq in8XDNMzSNXmUxE3LBHbEXBdQRNxLGrrBHYwVMVrIGYnNQPgMVExEM4QBsZsEKWpMiKfRXbdVXObODMs wm4MzQDrjXuexz0KMEhJKu7SqDagXAM2FBeuOh4iyMKlBbXiKUREOw9TkaHjHZZqUMWNEDndTUXnNIvh ZQYvWlTmK2IgCkQvNPP4FeNyFOg8QQRnZ3Q5AhzrGr Y6XFMxNsQ8FVWlHpKxQwJ0EySvSkQ9EsT7FXMuVjPqORP+VF5aOWc+Uh0Bj4FatdB0kyJmIShhGyOjVF 8EPSJOP8RJJb== ID Date Data Source [id number] 06/17/2020 11:39:00 AM EST Name Value Range Interpretation Code Description Data Evelin rce(s) Supporting Document(s) Glucose, Fingerstick 256 mg/dl 70-110 Above high normal The above 1 analytes were performed by [facility] [address]#: [id number],[place] [address] ID Date Data Source [id number] 06/17/2020 08:49:43 AM EST Name Value Range Interpretation Code Description Data Evelin rce(s) Supporting Document(s) Progress Notes [facility] VGXFUx4uWoJYQuSo83/XZTmhUMSxn4VtZZtfUXq7IZknMGBiV5YlAWW2gS8wZJT5VYbZDeDoMfFrSZFp lbm LiHqwTBnMrXPTuWkvCKiGiDTorSwuhoMYpZA1UmKX4HNFwT80lALMwXPOvF1SlBBC5WiG+Yo3KDSOdpN OnCZ1PMmeX5W5Ac3i7Is1/voclpSjlcmJgVdiI2ZnHbpIxF2ufd1AKt5yokdIJOyln3Rz7y/hIAtRMt6 ATEKtVNRvctRNlLz8BCDJA1I8/yaSsE4UQOZ6inf3P EmdX4r//KzssqhjPenqQYXHhsIYzdL8j/tXHy977MtjubhIezC97yDsvnTqEsMLi5iwFtbzPN4LqeSq2 VB1+eLLjUZ31Xt3fUpHHmcs8RGvvXQwlIfrmYziJVA2+39n18kQDVyP9qdXFwgNnjRZT4dUTJfmlJN7s 1HmMTyJAIyILaTCn7/ZhlnmpblqwKPuQoXg/UETXFk yMb+x7qlwZmlfgUBC1B/o0Sg1CFFqewvFjJpiVCyGfOGB2ty4YrcE1zr67quIbhtqZFN95fHyW9PQsJQ nbALhQkJbzd0DKb6wyUHWMIwbYQEv0pMO9nY3p573CFGvKxc/5ooiD+FhPFzq3Zji5rWXiPORFVq5P21 9ZrcWzgFSamBUW2AU/R6lrLByo/cCwtzq9Ms++H1e4 rNB6R/tf6ACLIEdBAn93kGWa+5W687e6WjMeLCl2GVSEN6Nzp+ymdlDiMYxzpdzzx4TTenfAlRkRextI OL3+i7krQFuW7P2BfmqO73fmwtBKRCSGNkISo8a7jjfQLHJi2CtfPb9pPhYA8FbGWs8crU30ASXYT6Zp N5t8p10O4FkMum9TaN34o88Z5Cd14d7oaz3n8sra4r [file] ICAgICAgICAgICAgICAgICAgICAgICAgICAgICAgIC AgICAgICAgICAgICAgICAgICAgICAgICAgICAgICAgICAgICANCiAgICAgICAgICAgICAgICAgICAgIC AgICAgICAgICAgICAgICAgICAgICAgICAgICAgICAgICAgICAgICAgICAgICAgICAgICAgICAgICAgIC AgICAgICAgICAgICAgICAgICANCiAgICAgICAgICAg ICAgICAgICAgICAgICAgICAgICAgICAgICAgICAgICAgICAgICAgICAgICAgICAgICAgICAgICAgICAg ICAgICAgICAgICAgICAgICAgICAgICAgICAgICANCiAgICAgICAgICAgICAgICAgICAgICAgICAgICAg ICAgICAgICAgICAgICAgICAgICAgICAgICAgICAgIC AgICAgICAgICAgICAgICAgICAgICAgICAgICAgICAgICAgICAgICANCiAgICAgICAgICAgICAgICAgIC AgICAgICAgICAgICAgICAgICAgICAgICAgICAgICAgICAgICAgICAgICAgICAgICAgICAgICAgICAgIC AgICAgICAgICAgICAgICAgICAgICANCiAgICAgICAg ICAgICAgICAgICAgICAgICAgICAgICAgICAgICAgICAgICAgICAgICAgICAgICAgICAgICAgICAgICAg ICAgICAgICAgICAgICAgICAgICAgICAgICAgICAgICANCiAgICAgICAgICAgICAgICAgICAgICAgICAg ICAgICAgICAgICAgICAgICAgICAgICAgICAgICAgIC AgICAgICAgICAgICAgICAgICAgICAgICAgICAgICAgICAgICAgICAgICANCiAgICAgICAgICAgICAgIC AgICAgICAgICAgICAgICAgICAgICAgICAgICAgICAgICAgICAgICAgICAgICAgICAgICAgICAgICAgIC AgICAgICAgICAgICAgICAgICAgICAgICANCiAgICAg ICAgICAgICAgICAgICAgICAgICAgICAgICAgICAgICAgICAgICAgICAgICAgICAgICAgICAgICAgICAg ICAgICAgICAgICAgICAgICAgICAgICAgICAgICAgICAgICANCiAgICAgICAgICAgICAgICAgICAgICAg ICAgICAgICAgICAgICAgICAgICAgICAgICAgICAgIC AgICAgICAgICAgICAgICAgICAgICAgICAgICAgICAgICAgICAgICAgICAgICANCjw/fVQyW5ownRGggq C0Q2muMs7LUz3HHP7xg4RbLGCuJEayrqGaUimAJhTdSSLvRdlCJve5OTzvVJ2KcWTxY0QdE2EoKIaqSJ 8ENCBfZEYcrHJfAENtHSPoNeW2KQUdUHtwTD5EpFZh WYozITZvTLBhPbAeXQFcMMHfYEPeEJ1IILEeE484fuZjCz9PNr3LExBeTZ9ptj8LGvEjJZSlXeqRSau2 MFiyFU7OpGMtjDIsNBTqJVSBKcOcX5lmn1OwLoSlSKRNOEysAK9Tg4DveWJhLNp+Wf8ZOB8zj0EaCNya UWBkLI9eoj3VPFoHAsTnD3AzxUrfONIqi2ugUUVzWD 6omCHjTSK4QVKfn2sfbJBDYVveyyukRW2QWLX6CWXkBlNzUcLbHPVsWMy9KqWBTIyGHxVnL0Dts4PzHv F5OFVrIoTrAWdkZJToUzE3MJ21gTfjHN2FOTOyWTDsCT92VXV1YIPzVu6JLi6NStHbNG4kkv6TKoUnYR JdUtnEWhy4TWevMG4RkNRgV7SczUAcp3cEOzCoT0KN LBHhNHReEn1OVXPlOjLfEPSoSVcaGW7pWGOwUIFHjOskqqA8EE3SKE5gkdHbAA2WIgQzGl9eYx5IXcCm P4AeA3QpRMJgJQPXXIvyQP5TSYgjRZ4oZC4Pz5DZpWGztN5yci5BJVVrEALpUdllls3LDutuJ2J8sRsu HXMrAdNxDLEKEWjlNW9LPZGgOSI4SNLgXfRfDIXKYf XfT62vLS9YL2Oww28gZeM0BFApKdZbNNorNG19xZzbuwFxlYRgcIfcAB9FXz3+DQplbmRvYmoNCnhyZW KEPuUjJfiZEjHfDIKhNOTpGJSgZlO3PgVcMx8AVEDcEGGkNTJoFcTuXLUdGPJoOZvaTFYoITHfQDB9HR FvROQxVD8QIbLtSLTbTVX3SfWeHCFiKHFeix7JLUPy RPYpJKW2YbEkLAVnUYCgMSmrIOIeCHXtUKuoIJSdHPQeQZ1IYeXpZGTtIWGjPrDiQCBsMAHtfb8FSSRt CXAtQRM1WjEjADEgFDCrHDmdTBZeRZM9RMs3SGHvASDrKF0AYbEsFHPoCJL2YQEyRHKeXKOaer6MNWFj QYUqFjkmKsYpFGLvPKDwNRlgHIYvIBW9NfT3SAHuNI GnQJ7BSdLwQQHcRNl2NntyDNZfVDYhgn2YZJKnWLSjLJT8ATPjENHqJBRjHIzmVMCkUQM2PRO0OWCvNJ GiHC5LUyEdWRYrZEejNENuQNJnFDWqhb8FQOMvRBHaMKE6MNHdCEOxUMUxEUjpCJWeGZFgQmD8ATBwEN DsAY0KPoGgWGWbXJX0VzPdYILsSEJnep7AOWRmFPQp RPl6XHYePBJaLTTsCWemKQSqTBPgQuK1WDHcEJLcBH1QAwXyPECmGGS8WSZoNMQpUWRnuz1NPSMhCSWf UgB6EIRuTIHdALRmXOejGDUkJDClQBZ9YKPnJEWlRS6WOrQoVFHjQKL2CRTnMCGzEPOzgs0MAZXePNGe OUV1QnMgGKIrHKJeNKteYRXgCQU5VqK6EEXeREPiTZ 7ZBmIjHNhaWIFTJih5CPrvW5l9ASCqUq7CH6Yda5QgWwJhIQKGHZfwHH7pfuLmYETaXh1BL6sAKjavWP HmORJwCRLbABM5GPJ9BSP3RGNcJSPfEvRsBgJ2Qd2dFIF6WxMcSOTkZuLjFAiaKVQ2DCa2P5W2XPXgBS L3BfHnCuOkWK8QVj0EUdF3OTA3uBHsGl1NIZB8JRpAVhAuLD6JCDm= ID Date Data Source [id number] 06/17/2020 07:15:00 AM [facility] Name Value Range Interpretation Code Description Data Evelin rce(s) Supporting Document(s) Glucose, Fingerstick 209 mg/dl 70-110 Above high normal The above 1 analytes were performed by [facility] [address], ,[place] [address] ID Date Data Source [id number] 06/17/2020 07:06:00 AM [facility] Name Value Range Interpretation Code Description Data Evelin rce(s) Supporting Document(s) C-Reactive Protein (Non-Cardiac) 26.90 mg/L 0.00-3.00 Above high nor mal The above 1 analytes were performed by [facility] [address], ,[place] [address] ID Date Data Source [id number] 06/17/2020 07:06:00 AM [facility] Name Value Range Interpretation Code Description Data Evelin rce(s) Supporting Document(s) AST 24 IU/L 15-37 Normal (applies to non-numeric resul ts) Sulfasalazine and sulfapyridine have the potential to falsely depressAspartate Aminotransferase results. Baseline values before medication administration are recommended. ALT 26 IU/L 16-61 Normal (applies to non-numeric resul ts) Sulfasalazine and sulfapyridine have the potential to falsely depressAlanine Aminotransferase results. Baseline values before medication administration are recommended. Alkaline Phosphatase 111 mIU/ml 50-136 Normal (applies to n on-numeric results) Total Bilirubin 1.00 mg/dl 0.20-1.00 Normal (applies to non-numeric results) Blood Urea Nitrogen 14 mg/dl 7-18 Normal (applies to non-nume kamilah results) Creatinine 0.88 mg/dl 0.67-1.17 Normal (applies to non-numeric resul ts) N-Acetylcysteine (NAC) and Metamizole bradley ve the potential to falselydepress Creatinine results. Baseline values before medication adminstration are recommended. Patients undergoing treatment with phenindione will have falselydepressed results. Patients on phenindione therapy should be tested with an alternativeCREA method.Toxic levels of acetaminophen may lead to falsely depressed results forpatient samples. Glomerular Filtration Rate 89.00 mL/min/1.73m2 GFR Reference Ranges:Normal Function or Mild Renal Disease,if clinically at risk:>or= 60Moderately decreased:30 - 59Severely decreased:15 - 29Renal Failure:<15 Please note that the MDRD equation requires an additional adjustment forAfrican-Americans (multiply the GFR result by 1.210).Glomarular Filtration Rate (GFR) is estimated based on the MDRDequation, which assumes a steady state for creatinine (Klarissa Int Med 139/2 137-149, 2003), as recommended by the [facility] Disease Education [facility] in conjunction with the National Institutes of Health and the National KidneyFoundation. The [place] method used in calculating this result is traceable to IDNC standards. Glucose 209 mg/dl 70-110 Above high normal [facility] Sulfasalazine has the potential to false ly depress Glucose results. Sulfapyridine has the potential to falsely elevate Glucose results. Baseline values before medication administration are recommended. Calcium 9.2 mg/dl 8.5-10.1 Normal (applies to non-numeric resul ts) Total Protein 7.5 g/dl 6.4-8.2 Normal (applies to non-numeric re sults) Albumin 3.0 g/dl 3.4-5.0 Below low normal Sodium 135 mEq/L 136-145 Below low normal Potassium 4.2 mEq/L 3.5-5.1 Normal (applies to non-numeric resul ts) Chloride 100.0 mEq/L 98.0-107.0 Normal (applies to non-numeric resu lts) Carbon Dioxide 30.1 mMol/L 21.0-32.0 Normal (applies to non-numeric results) Anion Gap 9.1 7.0-15.0 Normal (applies to non-numeric resul ts) The above 16 analytes were performed by [facility] [address], ,[place] [id number] ID Date Data Source [id number] 06/17/2020 07:06:00 AM EST Name Value Range Interpretation Code Description Data Evelin rce(s) Supporting Document(s) Cardiac CRP (high sensitivity) 25.70 mg/L 0.0-3.0 Above high karey l Cardiac CRP Risk Ranges:Low Cardiac Risk :<1.0mg/LNormal Cardiac Risk:1.0 - 3.0 mg/LIncreased Cardiac Risk:>3.0mg/LThe above 1 analytes were performed by [facility] [address], ,[place] [address] ID Date Data Source [id number] 06/17/2020 06:35:00 AM EST Name Value Range Interpretation Code Description Data Evelin rce(s) Supporting Document(s) WBC 9.64 x1000/ul 4.80-10.00 Normal (applies to non-numeric re sults) RBC 4.12 x1Mil/ul 4.70-6.[address] [facility] Hemoglobin 11.8 g/dl 14.0-18.0 Below low normal [facility] Hematocrit 36.3 % 42.0-52.0 Below low normal [facility] MCV 88.1 fL 80.0-94.0 Normal (applies to non-numeric resul ts) MCH 28.6 pg 27.0-31.0 Normal (applies to non-numeric resul ts) MCHC 32.5 g/dl 32.2-37.0 Normal (applies to non-numeric resul ts) RDW 12.2 % 11.5-14.5 Normal (applies to non-numeric resul ts) Platelet Count 349 x1000/ul 130-400 Normal (applies to non-numeric results) MPV 9.1 fL 9.4-12.4 Below low normal Neutrophils 74.8 % 40.0-74.0 Above high normal [facility] Lymphocytes 17.5 % 19.0-48.0 Below low normal [facility] Monocytes 5.4 % 3.4-9.0 Normal (applies to non-numeric resul ts) Eosinophils 1.0 % 0.0-7.0 Normal (applies to non-numeric resu lts) Basophils 0.3 % 0.0-2.0 Normal (applies to non-numeric resul ts) Immature Granulocytes 1.0 % 0.0-0.5 Above high normal Nucleated RBCs 0.00 % 0.00-0.20 Normal (applies to non-numeric r esults) Abs. Neutrophils 7.20 x1000/ul 1.92-8.31 Normal (applies to non-numeric results) Abs. Lymphocyte 1.69 x1000/ul 1.20-3.70 Normal (applies to non-n umeric results) Abs. Monocytes 0.52 x1000/ul 0.14-0.97 Normal (applies to non-nu meric results) Abs. Eosinophils 0.10 x1000/ul 0.00-0.76 Normal (applie s to non-numeric results) Abs. Basophils 0.03 x1000/ul 0.00-0.22 Normal (applies to non-n umeric results) Abs. Immature Gran. 0.10 x1000/ul 0.00-0.02 Above high normal Abs. Nucleated RBCs 0.00 x1000/ul 0.00-0.02 Normal (appl ies to non-numeric results) The above 24 analytes were performed by [facility] [id number] [facility], ,[place] [address] ID Date Data Source [id number] 06/16/2020 08:29:00 PM EST Name Value Range Interpretation Code Description Data Evelin rce(s) Supporting Document(s) Glucose, Fingerstick 285 mg/dl 70-110 Above high normal The above 1 analytes were performed by [facility] [id number] [facility], ,[place] [address] ID Date Data Source [id number] 06/22/2020 01:52:00 PM EST Name Value Range Interpretation Code Description Data Evelin rce(s) Supporting Document(s) Culture Result No Growth After 5 Days [facility] The above 1 analytes were performed by Lucy [facility] [id number], ,[place] [address] ID Date Data Source [id number] 06/22/2020 01:52:00 PM EST Name Value Range Interpretation Code Description Data Evelin rce(s) Supporting Document(s) Culture Result No Growth After 5 Days [facility] The above 1 analytes were performed by [facility] [id number], ,[place] [address] ID Date Data Source [id number] 06/16/2020 05:33:00 PM EST Name Value Range Interpretation Code Description Data Evelin rce(s) Supporting Document(s) AST 28 IU/L 15-37 Normal (applies to non-numeric resul ts) Sulfasalazine and sulfapyridine have the potential to falsely depressAspartate Aminotransferase results. Baseline values before medication administration are recommended. ALT 29 IU/L 16-61 Normal (applies to non-numeric resul ts) Sulfasalazine and sulfapyridine have the potential to falsely depressAlanine Aminotransferase results. Baseline values before medication administration are recommended. Alkaline Phosphatase 121 mIU/ml 50-136 Normal (applies to n on-numeric results) Total Bilirubin 0.60 mg/dl 0.20-1.00 Normal (applies to non-numeric results) Blood Urea Nitrogen 16 mg/dl 7-18 Normal (applies to non-nume kamilah results) Creatinine 0.82 mg/dl 0.67-1.17 Normal (applies to non-numeric resul ts) N-Acetylcysteine (NAC) and Metamizole bradley ve the potential to falselydepress Creatinine results. Baseline values before medication adminstration are recommended. Patients undergoing treatment with phenindione will have falselydepressed results. Patients on phenindione therapy should be tested with an alternativeCREA method.Toxic levels of acetaminophen may lead to falsely depressed results forpatient samples. Glomerular Filtration Rate >90.00 mL/min/1.73m2 GFR Reference Ranges:Normal Function or Mild Renal Disease,if clinically at risk:>or= 60Moderately decreased:30 - 59Severely decreased:15 - 29Renal Failure:<15 Please note that the MDRD equation requires an additional adjustment forAfrican-Americans (multiply the GFR result by 1.210).Glomarular Filtration Rate (GFR) is estimated based on the MDRDequation, which assumes a steady state for creatinine (Klarissa Int Med 139/2 137-149, 2003), as recommended by the NationalKidney Disease Education Program in conjunction with the National Institutes of Health and the National KidneyFoundation. The [place] method used in calculating this result is traceable to IDNC standards. Glucose 279 mg/dl 70-110 Above high normal [facility] Sulfasalazine has the potential to false ly depress Glucose results. Sulfapyridine has the potential to falsely elevate Glucose results. Baseline values before medication administration are recommended. Calcium 9.1 mg/dl 8.5-10.1 Normal (applies to non-numeric resul ts) Total Protein 7.5 g/dl 6.4-8.2 Normal (applies to non-numeric re sults) Albumin 2.9 g/dl 3.4-5.0 Below low normal Sodium 133 mEq/L 136-145 Below low normal Potassium 4.4 mEq/L 3.5-5.1 Normal (applies to non-numeric resul ts) Chloride 99.0 mEq/L 98.0-107.0 Normal (applies to non-numeric resul ts) Carbon Dioxide 30.5 mMol/L 21.0-32.0 Normal (applies to non-numeric results) Anion Gap 7.9 7.0-15.0 Normal (applies to non-numeric resul ts) The above 16 analytes were performed by [facility] [id number] [place] [address], ,[place] [address] ID Date Data Source [id number] 06/16/2020 05:33:00 PM EST Name Value Range Interpretation Code Description Data Evelin rce(s) Supporting Document(s) Magnesium 1.9 mg/dl 1.6-2.6 Normal (applies to non-numeric resul ts) The above 1 analytes were performed by [facility] [id number] [facility], ,[place] [address] ID Date Data Source [id number] 06/16/2020 04:50:00 PM EST Name Value Range Interpretation Code Description Data Evelin rce(s) Supporting Document(s) WBC 8.37 x1000/ul 4.80-10.00 Normal (applies to non-numeric re sults) RBC 4.13 x1Mil/ul 4.70-6.[address] [facility] Hemoglobin 12.0 g/dl 14.0-18.0 Below low normal [facility] Hematocrit 36.7 % 42.0-52.0 Below low normal [facility] MCV 88.9 fL 80.0-94.0 Normal (applies to non-numeric resul ts) MCH 29.1 pg 27.0-31.0 Normal (applies to non-numeric resul ts) MCHC 32.7 g/dl 32.2-37.0 Normal (applies to non-numeric resul ts) RDW 12.1 % 11.5-14.5 Normal (applies to non-numeric resul ts) Platelet Count 352 x1000/ul 130-400 Normal (applies to non-numeric results) MPV 8.7 fL 9.4-12.4 Below low normal Neutrophils 66.1 % 40.0-74.0 Normal (applies to non-numeric resu lts) Lymphocytes 23.9 % 19.0-48.0 Normal (applies to non-numeric resu lts) Monocytes 6.0 % 3.4-9.0 Normal (applies to non-numeric resul ts) Eosinophils 1.8 % 0.0-7.0 Normal (applies to non-numeric resu lts) Basophils 0.5 % 0.0-2.0 Normal (applies to non-numeric resul ts) Immature Granulocytes 1.7 % 0.0-0.5 Above high normal Nucleated RBCs 0.00 % 0.00-0.20 Normal (applies to non-numeric r esults) Abs. Neutrophils 5.54 x1000/ul 1.92-8.31 Normal (applies to non-numeric results) Abs. Lymphocyte 2.00 x1000/ul 1.20-3.70 Normal (applies to non-n umeric results) Abs. Monocytes 0.50 x1000/ul 0.14-0.97 Normal (applies to non-nu meric results) Abs. Eosinophils 0.15 x1000/ul 0.00-0.76 Normal (applie s to non-numeric results) Abs. Basophils 0.04 x1000/ul 0.00-0.22 Normal (applies to non-n umeric results) Abs. Immature Gran. 0.14 x1000/ul 0.00-0.02 Above high normal Abs. Nucleated RBCs 0.00 x1000/ul 0.00-0.02 Normal (appl ies to non-numeric results) The above 24 analytes were performed by [facility] [id number] [place] [address],[facility]#: [id number],[place] [address] ID Date Data Source [id number] 06/16/2020 04:09:54 PM EST Name Value Range Interpretation Code Description Data Evelin rce(s) Supporting Document(s) Consults TDWBNe5aTeTHRtPu34/DVUgvEMFhh3OaGCwqBPc9QCkmRMEyR5TbXIE8zW3eSUR9VRsURdRgAfKzACBr [facility] [file] AgICAgICAgICAgICAgICAgICAgICAgICAgICAgICAgICAgICAgICAgICAgICAgICAgICAgICAgICAgIC AgICAgICAgICAgICAgICAgICAgICANCiAgICAgICAgICAgICAgICAgICAgICAgICAgICAgICAgICAgIC AgICAgICAgICAgICAgICAgICAgICAgICAgICAgICAg ICAgICAgICAgICAgICAgICAgICAgICAgICAgICAgICANCiAgICAgICAgICAgICAgICAgICAgICAgICAg ICAgICAgICAgICAgICAgICAgICAgICAgICAgICAgICAgICAgICAgICAgICAgICAgICAgICAgICAgICAg ICAgICAgICAgICAgICANCiAgICAgICAgICAgICAgIC AgICAgICAgICAgICAgICAgICAgICAgICAgICAgICAgICAgICAgICAgICAgICAgICAgICAgICAgICAgIC AgICAgICAgICAgICAgICAgICAgICAgICANCiAgICAgICAgICAgICAgICAgICAgICAgICAgICAgICAgIC AgICAgICAgICAgICAgICAgICAgICAgICAgICAgICAg ICAgICAgICAgICAgICAgICAgICAgICAgICAgICAgICAgICANCiAgICAgICAgICAgICAgICAgICAgICAg ICAgICAgICAgICAgICAgICAgICAgICAgICAgICAgICAgICAgICAgICAgICAgICAgICAgICAgICAgICAg ICAgICAgICAgICAgICAgICANCiAgICAgICAgICAgIC AgICAgICAgICAgICAgICAgICAgICAgICAgICAgICAgICAgICAgICAgICAgICAgICAgICAgICAgICAgIC AgICAgICAgICAgICAgICAgICAgICAgICAgICANCiAgICAgICAgICAgICAgICAgICAgICAgICAgICAgIC AgICAgICAgICAgICAgICAgICAgICAgICAgICAgICAg ICAgICAgICAgICAgICAgICAgICAgICAgICAgICAgICAgICAgICANCiAgICAgICAgICAgICAgICAgICAg ICAgICAgICAgICAgICAgICAgICAgICAgICAgICAgICAgICAgICAgICAgICAgICAgICAgICAgICAgICAg ICAgICAgICAgICAgICAgICAgICANCiAgICAgICAgIC AgICAgICAgICAgICAgICAgICAgICAgICAgICAgICAgICAgICAgICAgICAgICAgICAgICAgICAgICAgIC AgICAgICAgICAgICAgICAgICAgICAgICAgICAgICANCjw/dCYlB6prlDCnkeU3M2ifBm0IXd6PIQ4lf0 YsGJJmMIyoluOsFmnPYcXvMWOfIudZIru6AMwoFI2O sYKaS1BqZ5GkOVwyTJ8ETMHeDLTweLUjJMYhMOQkCkT1ESWuXHmhTM7BiRJuUBgySNMhWZBuUoHjSUHd LMVrAHXzPICgLXTSYKFyQCIpHjFbROrnCG2Wn4FnkLE7DQb+Ex0KXH7kd7DvKVztGYYgDR6rnp3IKYtH EiOgH5WzhnM6AOHoAMUoZu0QWKNnQIRrsIHtLgWxRH AGWiZxH9BtxJ75QSBWHd1+JOaofpDqTrkVIxGaPWNsp1IhYNv3GA1GPPCsLVu3vRGmA18em8NxoTWsQv ecTCElhWYkOGecWEMybMCiKPNyPIFUNZIqbAKePzExLfEvLlJkXGP1AXIhGY4dKOiiEZ9XVMD8ISjhTC PqKGUaT3gQTkGgJRacPIFpnJitUR4BEdUuB5EuycCo dCAzMSAwIFINCj4+TDsmopOeCmcWAgDtPBYvo4KvARd3XV3FCMSlTEuoPC2FHSOpiT0xHJvvEF3DLaCd KJWlLOPJYkHiL09uwUAaARu5Y4GzImOmDUQyQgsaIYMhEJlgEdHcRFUrErVpOXvtFM5+ID4+QUqeBS0W BDsdvmEyNTOnHh0CDHMuUOWzYP9qBSNlCDHlX3T6dV byCNQERlGrJ0hjmrfnKX3kPPCrF504bLqkktRlMFKvYWOgBt7LPCRsMGB0DBAsnCTdHoWjNUNTNNzyIT 3WtTNwZMS6hT8tAHvyQWQlQYBeN8nUApHbbUgsHC95dMbrpcMtbHYzTPk+Ad0DRI1tp9LhTBh9lySlDH qwFVS8MOldEVLjKVNmESHoOJI2KZD2BKNCQjWyVIHy DPDkDJkxPWUsPRNaux4DWNDuXJWeKNXkHAHrFXQwUBXvBUxjOPZwQCAkCZxkRRFeESDtJI5WHkAwZGGo PKJiRBycLHAvHBStuf7YYPZqMQDhBhs1JfQkLYCoTLPjXLrbJGBrJTB7WCi0RZXmPIGqMQ0FPrFzJBYi BGRiFFZsAVLqBAMzgj6KGNDkXNMfIuLqDVDwJKBbLT KqZEonRTUcXVK7NGT2BUZsOZAsRZ9XGhAqJTBaEQkaCHQjJGIfUMHypk7NGECbXBCzFHNpXZNyJZByVC LzDQqfDBZoJYBmVkAeRHRuRIDjXY8OAgZzAODkQRRhYEBySOIiEGNsay0ZXKBoSNMtWcF1IKDxJZRwAS AwSDbfVSFiHFOgNkX5HZWkWDOaVV9QZvKjCYLvOPA2 QFoxEMFrZBXlvs6IARZoPQTzUtpnQfEnCOUtGRZoUZybTZCqMHT1WuC1ZAPoXZPcXD7OCcJvPHNpFTC8 VeZnQOWuAVGynq9SMTSpYDXwCKI6HhKlOEGfSVYlZIruIKTcILE7BGO1IOPdNTVkCH9OMlMvMJEzWFPu WSAjNPToPXHspe7BASGrGNAfCxQxAuHxZDSnENAwZT osNYRvFGW5CqMfXMQpSKQlUN8TGuPnJHRxEXc9QsFnOAFnUNExbe1BLQHkWDJqUrf7FuNvPCHoUADxUE hqWVDxGRS7PvQ7XKQnSHNyNB0JAyIePKSbDBj6HXKwEEKtDOZojm8BYWEnJFNqTZG1AUSuLWWdEBGvOK ijOSUdEOQ2YVQcKPOyVINoLS9INdTaSPIzZpPeOYMf LPYdBVPnoa1ABDHzXHBxNJQ0ZXGrQBHnAHHhGFhaWGZrIKXfWbSzXVXlONWvTA0GGaVtJOsiADKBGeg2 OGjrT9s2OBLhWV7UL0Spz2DaIeCiKVDSXXynQW5djhMwLZXuPe9ZW2xDAkrzICLtTgR4PZNfONfgXoA3 CEYbB6K2UuLpUyGxLDTlUJ2tWAT0MqUpGWn2CZYuEQ SzSRDlOFP0DcLlIGChHeC8ZFYrNxErXI9ETf5IVgR8RMF3kZMnHg5VCvC9IwYCBaSePX5TWKk= ID Date Data Source [id number] 06/16/2020 04:08:53 PM EST Name Value Range Interpretation Code Description Data Evelin rce(s) Supporting Document(s) Consults AURATa1nOwFHEiBw14/YERhmPJRtn9IfTPnpCPy9VPnmUCNmI3AvQUZ6aC9mEWR5GBiQUiNrJmCmXVDt lbm [file] rnEcGQgsUue4WH7BALVEO2UZQi== ID Date Data Source [id number] 06/16/2020 03:33:00 PM EST Name Value Range Interpretation Code Description Data Evelin rce(s) Supporting Document(s) Glucose, Fingerstick 261 mg/dl 70-110 Above high normal The above 1 analytes were performed by [facility] [id number] [place] [address],[facility]#: [id number],[place] [address] ID Date Data Source [id number] 06/16/2020 03:03:46 PM EST Name Value Range Interpretation Code Description Data Evelin rce(s) Supporting Document(s) Consults VENPRp0vLiSEVpUl32/GORitMXMbr9QjCAudBXp2WIftEDMzU9SxYWV9eX5dBFR9NPoFJcVdGjJoEZLp lbm [file] lzxijxzgm994Jehjobt+HERNÁNDEZ/ST4oix95pog6pv6cvGI [file] NM5mXXZVHr1+YAlofJNkgLhmMVIEUyJ5IEAlRMvoAVWXEs3P ID Date Data Source [id number] 06/16/2020 12:43:01 PM EST Name Value Range Interpretation Code Description Data Evelin rce(s) Supporting Document(s) H&P WNAPSa6iNwQADhTq20/JUDeyXNJok5JwPHztVMr5MTzkOAYaD3FuBPH9oY3rGAL6GCmPLiLmJjUgQESj lbm EdSdfIEwGiYTCbQmdIAiGsDDyeQneaiGVvBP9QaES5HXNoV21cMMCuLWMoG8WyRTE3PHZ+Ng6HAVBjmO DcFO3LBysA6U8Tu6tYKVFwreg/rJc2U5QHpU+mqfccyJtBOOel2wJmAe2KHoxlupuGptl/IiRGixjV0x lKNcTuEgdpiuBT5FW1t0zplle/+473mMJf874M/7uf WRF6p5+9P/7KNz2SlZsFoI+oh5HGiA/8Hc6O4WTIVx7rJRWPuZq/V+wwpfin7sb5rxOkgztdX7Xqda9b 934Z1rCmFN0u0p6/Mo146T1e+l6FDu/qL7YHb3e71Lj9GVFouSwj6h6yp/QIlyIZCS5Mcn1/ANTIONETTE+P6sso [file] ICAgICAgICAgICAgICAgICAgICAgICAgICAgICAgICAgICAgICAgICAgICAgICAgICAgDQogICAgICAg ICAgICAgICAgICAgICAgICAgICAgICAgICAgICAgIC AgICAgICAgICAgICAgICAgICAgICAgICAgICAgICAgICAgICAgICAgICAgICAgICAgICAgICAgICAgIC AgDQogICAgICAgICAgICAgICAgICAgICAgICAgICAgICAgICAgICAgICAgICAgICAgICAgICAgICAgIC AgICAgICAgICAgICAgICAgICAgICAgICAgICAgICAg ICAgICAgICAgICAgDQogICAgICAgICAgICAgICAgICAgICAgICAgICAgICAgICAgICAgICAgICAgICAg ICAgICAgICAgICAgICAgICAgICAgICAgICAgICAgICAgICAgICAgICAgICAgICAgICAgICAgDQogICAg ICAgICAgICAgICAgICAgICAgICAgICAgICAgICAgIC AgICAgICAgICAgICAgICAgICAgICAgICAgICAgICAgICAgICAgICAgICAgICAgICAgICAgICAgICAgIC AgICAgDQogICAgICAgICAgICAgICAgICAgICAgICAgICAgICAgICAgICAgICAgICAgICAgICAgICAgIC AgICAgICAgICAgICAgICAgICAgICAgICAgICAgICAg ICAgICAgICAgICAgICAgDQogICAgICAgICAgICAgICAgICAgICAgICAgICAgICAgICAgICAgICAgICAg ICAgICAgICAgICAgICAgICAgICAgICAgICAgICAgICAgICAgICAgICAgICAgICAgICAgICAgICAgDQog ICAgICAgICAgICAgICAgICAgICAgICAgICAgICAgIC AgICAgICAgICAgICAgICAgICAgICAgICAgICAgICAgICAgICAgICAgICAgICAgICAgICAgICAgICAgIC AgICAgICAgDQogICAgICAgICAgICAgICAgICAgICAgICAgICAgICAgICAgICAgICAgICAgICAgICAgIC AgICAgICAgICAgICAgICAgICAgICAgICAgICAgICAg ICAgICAgICAgICAgICAgICAgDQogICAgICAgICAgICAgICAgICAgICAgICAgICAgICAgICAgICAgICAg ICAgICAgICAgICAgICAgICAgICAgICAgICAgICAgICAgICAgICAgICAgICAgICAgICAgICAgICAgICAg LYh5Y8emJEDfVXIfIK8lZCm6St7+GNpJIcAvRLV9au MjlT4GMY7hg4JbRGkcIVYsa4XhFWm7UL2BJWUsPCmuYP7VELfpdq0DKFAlVMFdgFQPf7oiJdUzRJY0NQ DeWjzoAH3EDARpM0bydfKuITLlHTEIIGneYLVOHSshVJRUZPEgOEFvVcNeHQqmKU4If7MnlUN0OYy+Pg 1TTT7sq4FpDPbyTdLiGH0vcl5UTRuZBuUrQ8DrpxF0 PLI4WOUeQh6GYEAbFQGcpHNaScIsTJFBVeEmX2CiiK55IHPEWy4+RWxpqmXxFyiLEnR1HDXwh8CbUEh5 KD2JYLTpDOf3uKPiKPETQXD6YPYpt5kccDIDJRpanewzJQ8CHOH1NZWzTxQxReRyPUAfCsghOFNZTByA JkYeB2Ohy0SlOrN6DZCxZbXvCQyqYKVlRiC9LR50eH qbSR7VYHMkUUHoHI42QMS4AOWvPf0MNs4LMcZiQF9pjc2GXbmlOVNcJsdVFsn9IKhjXW5WnXHcZ8FgwJ Oeu8pUSjWaZ6ENAHT1XXOxIx6NMJLrOmLyOLRmMGibAK1oHECoWJKYeMqmyyL6CZ3WQR7sfhAxBZ3BBa GbGk8fUn1OBmYpV6XlI6MkREBgJPICNLdcZQ3RFNhe RZ3wLQ6Km7TZxREamL5szu1YQILnAFJvYggmbl3GUeboR3W9tMejQVSsXkTkTSVWMGqqEG9BMTBvFSF1 DOBzWFXcENQEWdSjI14kCC0II0Esv32ePyE4RAPlDbHrWOmnBC60sNpblbZuaQFuqMerAG1HIy2+DQpl bmRvYmoNCnhyZWYNCjAgMjkNCjAwMDAwMDAwMDAgNj N1VrXmDb2TRNBdCCWvDDFlPjCvJZRkWKGxOYddLQVjVLO2Qda4ZMXoRVOgVY9RBlQxDUStAKzhEEPuZD NpVHWeaa4ECAAjVJEfRFT8ZvOhBNGcMYGmLYtkNNWiZIGrSLegZRTvWCUjRD8NRkYjFVKqGQQqVFTqYO SkUSOrvz1ZGEDtEYAcZme8SHAdNNTrTRDeWRkuGAOe BMX3ZNNtGFGfEBSyNI3HNlTpEKFzTJc8UaSeYPLlHAEcbp6ZVATtZQKpKLhqRXTrLWEuQJBfLGrdDDRx CROcNrW7WQEbJTKdJV7VXaRlTHAwLJW5XnOtYTAdQKMpcp8TNDKwVWWlTIxeOWJzERGvJGLyGFnnFLVr FKGyOFXhYREfJTFuVM0TWhVdSYPgZOEiOoZbPRBgWC Rayd8YMAGjWDJjEoR2DZGuNGUfQOFvYJxpNAEbLWDaYuv9IYUzEBAdWX6QTwBwOWFjOIR3WzLlUGEsHK Mqrz0DFLNiBBAlVAIcBHZbKPQhICDbHFpmBONrEDW5NwC4VVWpMQUlLA3KXlSxWZKoIGW6BTSrZHZqGS Wapw7MLVUyODXlZLa9BAKrHTRbCKQiLYnsUCFzAVY4 LGl5IKGgQPXcZK0ZMiQbWJYeGEInYlDhHVZfXJNkru6FDNXiWFQpFyjlWOVqNVVrPUFmUCueSPAqSMD1 OUY5PXRiOIRfUH4YPfPgVZEyJJeuFiebWJAmGARpda9NMVTiTBMuMPV8QzSvIUXtEQIxIFn7loJwdHMy RFr4WR5VN7JjniEdRubXEt5Sw529HXU6XAVxAx2FH1 mcYe0hWBBnMSCWJx1SCCy1IkM1LhC3ECKiQZA7XHPcDKx7VKD2TAQfBdMeDCC7LAD+IDxjNThiZDkxNW TtDAGqYHU8OybcONG9NJL9SbA4OiLzNH4fLOSNYz3+WJaakVQmcAfsUUCUStR9HvQuVHvuYRKUBz8F ID Date Data Source [id number] 06/16/2020 08:17:00 AM [facility] is a rapid, automated qualita tive anddifferentiation of Influenza type A,B and [id number]-RT-PCR testNORMAL VALUE IS "NOT DETECTED".Limitations of the bridget [facility] Influenza A/B & [id number]-6bxyge method.Modifications to manufacturers recommendation and proceduresmay alter performance of the test.Negative results do not preclude Influenza A,B or SARS- RHI1pmyyxewqef and should not be used as the sole basis fortreatment or other management decisions. Results from the[facility] Influenza A/B & COV2 should be interpeted inconjunction with other laboratory and clinical dataavailable to the clinician.False negative results may occur if a specimen is improperlycollected, transported or handled. False negatives may occurif inadequate numbers of organisms are present in thespecimen.This test has not been evaluated for patients without signsand systoms of influenza and SARS-COV-2 infection.This assay has not been evaluated for patients receivingintranasal administered influenza vaccine.This assay has not been evaluated for immunocompromisedindividuals.This test cannot rule out diseases caused by other bacterialor viral pathogens.SARS-CoV-2 RNA Resp Ql PARMJIT+probe Name Value Range Interpretation Code Description Data Evelin rce(s) Supporting Document(s) ID Date Data Source [id number] 06/16/2020 08:17:00 AM [facility] Bridget Ce is a rapid, automated qualita tive anddifferentiation of Influenza type A,B and [id number]-RT-PCR testNORMAL VALUE IS "NOT DETECTED".Limitations of the bridget ce Influenza A/B & [id number]-[id number]-5horui method.Modifications to manufacturers recommendation and proceduresmay alter performance of the test.Negative results do not preclude Influenza A,B or SARS- [id number] and should not be used as the sole basis fortreatment or other management decisions. Results from theCobas Ce Influenza A/B & COV2 should be interpeted inconjunction with other laboratory and clinical dataavailable to the clinician.False negative results may occur if a specimen is improperlycollected, transported or handled. False negatives may occurif inadequate numbers of organisms are present in thespecimen.This test has not been evaluated for patients without signsand systoms of influenza and SARS-COV-2 infection.This assay has not been evaluated for patients receivingintranasal administered influenza vaccine.This assay has not been evaluated for immunocompromisedindividuals.This test cannot rule out diseases caused by other bacterialor viral pathogens.SARS-CoV-2 RNA Resp Ql PARMJIT+probe Name Value Range Interpretation Code Description Data Evelin rce(s) Supporting Document(s) Extended hours FLU/COV2 NAAT L [facility] ID Date Data Source [id number] 06/16/2020 05:56:00 AM EST [facility] DRAWN FROM PICC LINE DRAWN FROM PICC LINE Name Value Range Interpretation Code Description Data Evelin rce(s) Supporting Document(s) Leukocytes [#/volume] in Blood by Automated count 8.5 10*3/uL 4.45-10 .71 N [facility] Erythrocytes [#/volume] in Blood by Automated count 4.22 10*6/uL 4.3-6.1 Below low normal [facility] Hemoglobin [Moles/volume] in Blood 12.3 g/dL 13-18 Below low no rmal [facility] Hematocrit [Volume Fraction] of Blood by Automated count 37.0 % 42-52 Below low normal [facility] Erythrocyte mean corpuscular volume [Ent itic volume] in Cord blood by Automated count 87.7 fL 80-[address] [facility] Erythrocyte mean corpuscular hemoglobin [Entitic mass] by Automated count 29.1 pg 27-[address] [facility] Erythrocyte mean corpuscular hemoglobin concentration [Mass/volume] in Cord blood 33.2 g/dL 33-[address] [facility] Erythrocyte distribution width [Entitic volume] by Automated count 12 % 11-15 N [facility] Platelets [#/volume] in Blood by Automated count 374 10*3/uL 130-472 N [facility] Platelet mean volume [Entitic volume] in Blood 8.9 fL 9.1-13. 1 Below low normal [facility] Neutrophils/100 leukocytes in Blood by Automated count 65.2 % 41- 77 N [facility] Neutrophils [#/volume] in Blood by Automated count 5.6 U 1.7-7.6 N [facility] Lymphocytes/100 leukocytes in Blood by Automated count 25.0 % 14- 46 N [facility] Lymphocytes [#/volume] in Blood by Automated count 2.1 U 0.6-4.6 N [facility] Monocytes/100 leukocytes in Blood by Automated count 6.1 % 4-12 N [facility] Monocytes [#/volume] in Blood by Automated count 0.5 U 0.2-1.2 N [facility] Eosinophils/100 leukocytes in Blood by Automated count 1.6 % 0-7 N [facility] Eosinophils [#/volume] in Blood by Automated count 0.1 U 0.0-0.5 N [facility] Basophils/100 leukocytes in Blood by Automated count 0.5 % 0.4-1 .3 N [facility] Basophils [#/volume] in Blood by Automated count 0.0 U 0.0-0.2 N [facility] NUCLEATED RED BLOOD CELL 0 % [facility] NUCLEATED RED BLOOD CELL# 0 U [facility] Immature granulocytes [Presence] in Blood by Automated count 0-2 N [facility] Immature granulocytes [#/volume] in Blood by Automated count 0.1 U 0-0.1 N [facility] Manual Differential panel - Blood NO [facility] ID Date Data Source [id number] 06/16/2020 06:15:00 AM EST [facility] DRAWN FROM PICC LINE DRAWN FROM PICC LINE Name Value Range Interpretation Code Description Data Evelin rce(s) Supporting Document(s) Urea nitrogen [Mass/volume] in Serum or Plasma 15 mg/dL 9-23 [facility] Sodium [Moles/volume] in Serum or Plasma 138 mmol/L 132-146 [facility] Potassium [Moles/volume] in Serum or Plasma 4.3 mmol/L 3.5-5.5 [facility] Chloride [Moles/volume] in Serum or Plasma 102 mmol/L 99-109 [facility] Carbon dioxide, total [Moles/volume] in Serum or Plasma 32 mmol/ L 20-31 Above high normal [facility] Anion gap in Serum or Plasma 8 mmol/L 8-16 [facility] Glucose [Mass/volume] in Serum or Plasma 242 mg/dL 74-106 Above high normal [facility] Creatinine 0.9 mg/dL 0.5-1.1 [facility] Glomerular filtration rate/1.73 sq M.pre dicted [Volume Rate/Area] in Serum or Plasma Greater Than 60 ABOVE 60 [facility] Alanine aminotransferase [Enzymatic acti vity/volume] in Serum or Plasma by With P-5'-P 31 U/L 10-[address] [facility] Aspartate aminotransferase [Enzymatic ac tivity/volume] in Serum or Plasma by With P-5'-P 23 U/L 0-33 N [facility] Alkaline phosphatase [Enzymatic activity/volume] in Serum or Plasma 121 U/L 45-129 N [facility] Calcium [Mass/volume] in Serum or Plasma 9.5 mg/dL 8.5-10.1 N [facility] Bilirubin.total [Mass/volume] in Serum or Plasma 0.7 mg/dL 0.3-1.2 N [facility] Albumin [Mass/volume] in Serum or Plasma by Bromocresol purple (BCP) dye binding method 3.0 g/dL 3.2-4.8 Below low normal [facility] Protein [Mass/volume] in Serum or Plasma 7.8 g/dL 5.7-8.2 N [facility] ID Date Data Source [id number] 06/16/2020 12:00:00 AM EST [facility] Name Value Range Interpretation Code Description Data Evelin rce(s) Supporting Document(s) SARS-CoV2 Rapid PCR Not Detected [facility] This lab was ordered by [facility] and reported by [facility]. ID Date Data Source [id number] 06/15/2020 01:10:00 PM [facility] Name: JAGJIT IBARRA : 1960 Age: 60 MR#: [id number] Admit Date: 06/08/20 Provider: Nicolle Walls Room #: 292 Consulting Provider: Armaan Reyna MD; Joanna Alfredo; Minh Dumas MD; Anthony Gonzalez MD; Kd De La Rosa PA-C; Whit Pathak; Sydni Keita MD; Eddie Wright MD; Raul Magallon MD Dictation Date: 06/15/20 Progress Note Subjective-ROS Date of service Date of service:: 06/15/20 Review of Systems General: Denies Fever, Chills, Night Sweats and Fatigue HEENT: Denies Headac hes, Visual Changes and Dysphasia Endocrine: Denies Excessive sweating and Flushing Cardiovascular: Denies Chest Pain, Palpitations, Orthopnea and Edema Pulmonary: Denies Dyspnea, Cough and Pleuritic Chest Pain Gastrointestinal: Denies nausea, vomiting and diarrhea Genitourinary: Denies Dysuria, Frequency and Incontinence Musculoskeletal: Reports Joint Pain (Left shoulder pain from syncopal episode prior to admission.) and Shoulder Pain (Left shoulder pain from syncopal episode prior to admission.); Denies Muscle Pain Neurological: Denies Weakness and Numbness Psych: Denies auditory hallucinations and visual hallucinations Hematological/Lymphatic: Denies easy bleeding and easy bruising Allergic/Immunologic: Denies rash, hives, fever and night sweats Attestation/Length Of Stay: 06/08/20 13:50 Admit to Inpatient, Acute [STATUS] Routine Location: [facility] Primary diagnosis: Chest pain Isolation: Droplet Status: Inpatient Admission Anticipated Length of stay:: 3-4 Midnights Vital Signs and I O Vitals and I O: Vital Signs last 12 hours Pulse BP 06/15/20 09:54 77 127/83 06/15/20 09:50 77 128/83 Intake Output Last 24 Hours 06/13/20 06/14/20 06/15/20 23:59 23:59 23:59 Intake Total 820 / 820 0 / 2040 1000 / 1000 Balance 820 / 820 2039 / 0 1000 / 1000 Current Weight 282 lb Results Results: 06/15/20 04:00 06/15/20 04:00 Laboratory Results Last 24 hours 06/14/20 12:16: POC Glucose 273 H 06/14/20 17:15: POC Glucose 312 H 06/14/20 20:36: POC Glucose 306 H 06/15/20 04:00: WBC 10.0, RBC 4.36, Hgb 12.6 L, Hct 38.5 L, MCV 88.3, MCH 28.9, MCHC 32.7 L, RDW 12, Plt Count 415, MPV 8.9 L, Immature Gran % (Auto) 1.8, Neut % (Auto) 70.1, Lymph % (Auto) 20.8, Mccone % (Auto) 5.2, Eos % (Auto) 1.5, Baso % (Auto) 0.6, Lymph # (Auto) 2.1, Abs Immat Gran (auto) 0.2 H, Add Manual Diff No, Absolute Neutrophils 7.0, Monocytes # 0.5, Absolute Eosinophils 0.2, Absolute Basophils 0.1 06/15/20 04:00: Sodium 138, Potassium 4.4, Chloride 101, Carbon Dioxide 31, Anion Gap 10, BUN 13, Creatinine 1.0, GFR Calculation Greater than 60, Glucose 242 H, Calcium 9.5, Total Bilirubin 0.6, AST 25, ALT 31, Alkaline Phosphatase 127, Serum Total Protein 7.7, Albumin 2.9 L 06/15/20 07:40: POC Glucose 231 H Microbiology 06/10/20 07:21 Venous blood Blood Culture - Final No growth. 06/10/20 07:21 Venous blood Blood Culture - Final No growth. 06/09/20 06:00 Venous blood Blood Culture - Final No growth. 06/09/20 06:00 Venous blood Blood Culture - Final No growth. 06/08/20 11:40 Venous blood Blood Culture - Final No growth. 06/08/20 11:40 Venous blood Blood Culture - Final No growth. 06/07/20 16:20 Venous blood Blood Culture - Final Staphylococcus Aureus 06/07/20 16:20 Venous blood Blood Culture - Final Staphylococcus Aureus 06/07/20 02:05 Venous blood Blood Culture - Final Staphylococcus Aureus 06/07/20 02:05 Venous blood Blood Culture - Final Staphylococcus Aureus 06/07/20 02:05 Venous blood - Final Staphylococcus species Staphylococcus aureus detected 06/06/20 20:50 Nasopharyngeal Respiratory Panel (PCR) - Final No Organisms Detected 06/06/20 20:50 Nasopharyngeal Influenza-Like Illness (PCR) - Final No Organisms Detected 06/06/20 20:50 Nasopharyngeal - Final Exam Orientation: Alert, Oriented x3, Cooperative and No acute distress HEENT: Atraumatic, PERRLA and Mucous membr. moist/pink Lungs: normal lung sounds bilaterally; negative for respiratory distress, wheezes and rales Cardiovascular Exam: regular rate and normal rhythm Abdomen: Normal bowel sounds and Soft; negative for Tenderness Extremities: full ROM (Full but painful Range of motion of left shoulder due to prior injury. ), tenderness (Over left acromioclavicular joint) and other (PICC line placed in left AC.); negative for joint swelling Neurological: Normal speech and Sensation intact Psych/Mental Status: normal affect and normal mood Assessment/Plan Impressions/Problems (1) Internal derangement of left shoulder: Code(s): M24.812 - Other specific joint derangements of left shoulder, not elsewhere classified SNOMED Code(s): 53588260713100521 A P Free Text/Narrative :: Hospital Course: 60 y/o male with PMH of CAD with stent x2, DVT, PE, A fib (on Eliquis), type II DM, AICD pacemaker, HLD, and HTN was admitted on 06/06/2020 from the ED for complaints of left-sided chest pain with radiation to the left arm and associated diaphoresis and lightheadedness. No changes overnight. Patient is anxiously waiting transfer. He understands the treatment course and has agreed to transfer. Plan is to send the patient home with IV antibiotics following DANIELE at [place]. Patient has been accepted by Dr. Cruz at [facility] Cardiology. Vital signs temperature 97.1 right pulse 77, blood pressure 127/83, respiratory rate 20, oxygen saturation 96% on room air. CBC reviewed within normal limits. CMP reviewed within normal limits 1. Suspected endocarditis - Patient had PICC line placed on 06/13/2020 ; will receive IV Cefepime x 4 weeks (or as per infectious disease) - Being followed by [place]; Willian doing PICC line care - Staph aureus x2 blood cultures on 06/07/2030 - 06/15 is day 7 of 28 days total IV ABX. to be completed on 07/06/2020 - [facility]. 2. Chest pain - Resolved; TSH WNL, repeat troponin negative - EKG showed NSR, negative troponin, CTA chest negative for PE. 3. Status post AICD pacemaker - F/u with electrophysiology/[facility] Cardiology - The ED physician contacted [facility] cardiology who noted that the patient's pacemaker showed no abnormality, battery failure, or arrhythmia. 4. History of pulmonary embolism/DVT - Continue Eliquis 5. Status post Cactus filter placement 6. Atrial fibrillation - Continue amiodarone, Eliquis 7. Hyperlipidemia - Continue atorvastatin, fish oil 8. Hypertension - Continue carvedilol 9. GERD 10. Hazy density superior mesenteric artery and celiac axis by CT abdomen 11. Right liver hypodensity by CT abdomen - Abdominal US showed no cholelithiasis or biliary ductal dilatation, no renal calculus or hydronephrosis on the right, and no free intraperitoneal fluid 12. Type 2 DM - Continue Metformin 13. Depression - Continue duloxetine, trazodone 14. BPH - Continue tamsulosin 15. Coronary artery disease - Continue aspirin 16. Left shoulder pain Follow-up with ortho in 1-2 weeks for US and subacromial cortisone injections Full Code Dictated by: <Electronically signed by Nicolle CLEMENT> Nicolle CLEMENT 06/16/20 0900 Nicolle Walls SIGNATURE DA Report Cosigners: <<Signature on File>> Chilo Pineda MD 06/16/20 1233 <Electronically signed by Chilo Pineda MD> Chilo Pineda MD 06/16/20 1233 D: ANAI 06/15/20 1310 T: ANAI 06/15/201309 CC: Name Value Range Interpretation Code Description Data Evelin rce(s) Supporting Document(s) ID Date Data Source [id number] 06/16/2020 07:27:00 AM [facility] Name: JAGJIT IBARRA : 1960 Age: 60 MR#: [id number] Admit Date: 06/08/20 Provider: Nicolle Walls Room #: 292 Consulting Provider: Armaan Reyna MD; Joanna Alfredo; Minh Dumas MD; Anthony Gonzalez MD; Kd De La Rosa PA-C; Whit Pathak; Sydni Keita MD; Eddie Wright MD; Raul Magallon MD Dictation Date: 06/16/20 Discharge Summary ADDENDUM: Exam: General: Patient alert and oriented x3 to person presented HEENT: Pupils equal round and reactive to light and accommodation, EOMIs intact Palm: CTA throughout, no wheezes rales rhonchi Cardiac: Regular rate and rhythm no murmurs rubs or gallops GI: Soft nontender abdomen Muscle skeletal: Left shoulder pain from previous fall. PICC line in right AC Neuro: Sensation intact throughout,DTR b/l Skin: No lesions or rashes noted Greater than 30 minutes spent with patient and reviewing documentation. Addended by: <Electronically signed by Nicolle CLEMENT> 06/16/20910 Addendum Cosigners: <Electronically signed by Chilo Pineda MD> 06/16/20 1233 D: MUSTA 06/16/20910 T: MUSTA 06/16/20910 CC: Discharge Summary Problem List (1) Internal derangement of left shoulder: Status: Acute Code(s): M24.812 - Other specific joint derangements of left shoulder, not elsewhere classified Admit Info/Diagno ses/Course Admission Information: Patient, JAGJIT IBARRA, a 60 year old M, admitted on 06/08/20 13:50 by Chilo Pineda MD for CHEST PAIN Family MD Cindy Iraheta, LOAN EXP[employer]OR Discharge Date: 06/16/20 Most Recent Lab Results: 06/15/20 04:00 06/15/20 04:00 Laboratory Results Last 24 hours 06/14/20 07:30: WBC 9.6, RBC 4.29 L, Hgb 12.2 L, Hct 37.4 L, MCV 87.2, MCH 28.4, MCHC 32.6 L, RDW 12, Plt Count 377, MPV 8.7 L, Immature Gran % (Auto) 2.6 H, Neut % (Auto) 70.5, Lymph % (Auto) 19.2,Mccone % (Auto) 5.7, Eos % (Auto) 1.5, Baso % (Auto) 0.5, Lymph # (Auto) 1.8, Abs Immat Gran (auto) 0.3 H, Add Manual Diff Manual diff added, Total Counted 100, Neutrophils (Manual) 65, Absolute Neutrophils 6.8, Lymphocytes (Manual) 19, Monocytes (Manual) 12, Monocytes # 0.6, Eosinophils (Manual) 3, Absolute Eosinophils 0.1, Basophils (Manual) 1, Abs olute Basophils 0.1, Platelet Estimate Appears normal, RBC Morphology Appears normal 06/14/20 07:30: Sodium 135, Potassium 4.1, Chloride 101, Carbon Dioxide 28, Anion Gap 10, BUN 13, Creatinine 0.9, GFR Calculation Greater than 60, Glucose 216 H, Calcium 8.9, Total Bilirubin 0.7, AST 25, ALT 26, Alkaline Phosphatase 110, Serum Total Protein 7.6, Albumin 2.8 L 06/14/20 07:33: POC Glucose 215 H 06/14/20 12:16: POC Glucose 273 H 06/14/20 17:15: POC Glucose 312 H 06/14/20 20:36: POC Glucose 306 H 06/15/20 04:00: WBC 10.0, RBC 4.36, Hgb 12.6 L, Hct 38.5 L, MCV 88.3, MCH 28.9, MCHC 32.7 L, RDW 12,Plt Count 415, MPV 8.9 L, Immature Gran % (Auto) 1.8, Neut % (Auto) 70.1, Lymph % (Auto) 20.8, Mccone % (Auto) 5.2, Eos % (Auto) 1.5, Baso % (Auto) 0.6, Lymph # (Auto) 2.1, Abs Immat Gran (auto) 0.2 H, Add Manual Diff No, Absolute Neutrophils 7.0, Monocytes # 0.5, Absolute Eosinophils 0.2, Absolute Basophils 0.1 06/15/20 04:00: Sodium 138, Potassium 4.4, Chloride 101, Carbon Dioxide 31, Anion Gap 10, BUN 13, Creatinine 1.0, GFR Calculation Greater than 60, Glucose 242 H, Calcium 9.5, Total Bilirubin 0.6, AST 25, ALT 31, Alkaline Phosphatase 127, Serum Total Protein 7.7, Albumin 2.9 L Microbiology 06/09/20 06:00 Venous blood Blood Culture - Final No growth. 06/09/20 06:00 Venous blood Blood Culture - Final No growth. 06/08/20 11:40 Venous blood Blood Culture - Final No growth. 06/08/20 11:40 Venous blood Blood Culture - Final No growth. 06/10/20 07:21 Venous blood Blood Culture - Preliminary NO GROWTH AFTER 48 HOURS 06/10/20 07:21 Venous blood Blood Culture - Preliminary NO GROWTH AFTER 48 HOURS 06/07/20 16:20 Venous blood Blood Culture - Final Staphylococcus Aureus 06/07/20 16:20 Venous blood Blood Culture - Final Staphylococcus Aureus 06/07/20 02:05 Venous blood Blood Culture - Final Staphylococcus Aureus 06/07/20 02:05 Venous blood Blood Culture - Final Staphylococcus Aureus 06/07/20 02:05 Venous blood - Final Staphylococcus species Staphylococ cus aureus detected 06/06/20 20:50 Nasopharyngeal Respiratory Panel (PCR) - Final No Organisms Detected 06/06/20 20:50 Nasopharyngeal Influenza-Like Illness (PCR) - Final No Organisms Detected 06/06/20 20:50 Nasopharyngeal - Final Hospital Course: 60 y/o male with PMH of CAD with stent x2, DVT, PE, A fib (on Eliquis), type II DM,AICD pacemaker, HLD, and HTN was admitted on 06/06/2020 from the ED for complaints of left-sided chest pain with radiation to the left arm and associated diaphoresis and lightheadedness. Patient reported a syncopal episode on 06/05/2020. In the ED he was given aspirin. EKG showed NSR, negative troponin, CTA chest negative for PE. Was treated in the ED with Nitropaste, morphine, sublingual nitro, and regular insulin for uncontrolled hyperglycemia. The ED physician contacted [facility] cardiologywho noted that the patient's pacemaker showed no abnormality, battery failure, or arrhythmia that would cause a syncopal episode. Shortly after admission it was reported that the patient was febrilewith a temp of 101.2 3F and HR>90, which met 2/4 SIRS criteria. Lactic acid was 1.9. Due to fever and chest pain, echocardiogram and CT abdomen/pelvis were ordered and Vanco and Zosyn were started. Echo showed normal left ventricular systolic function, and hypertrophic obstructive cardiomyopathy with evidence for a moderate LV outflow tract gradient with Valsalva as well as some evidence for systolic anterior motion of the mitral leaflet. Repeat troponin was negative. Patient's chest painhas since resolved. Dr. Ferreira from [facility] Cardiology saw the patient as echo revealed possible infective endocarditis, and Dr. Dumas did a teleconference consult with the patient, as well. Dr. Ferreira recommended a DANIELE and daily blood cultures x 3. Initial blood cultures from 06/07/2020 werepositive for Staph aureus. Repeat blood cultures on 06/08, 06/09, and 06/10 were negative. IV Vanco wasdiscontinued when cultures returned as methicillin susceptible staph aureus and he was switched to IV Cefazolin per Dr. Dumas's recommendation. The patient was due to see the soda jerker on 06/13 regarding his ICD but this will be rescheduled as he was still hospitalized. The patient was also seen by ortho for left shoulder pain that he reports has worsened since falling on his left armprior to admission. He has an old rotator cuff tear for which he was previously receiving steroid injections. Ortho recommended he follows up with them as an out-patient for an US of the left shoulder and subacromial cortisone injections. The patient has improved over the course of his stay.Vital signs and labs are stable. He has no complaints. He had a PICC line placed yesterday, 06/13/2020, so he can be discharged home on IV Cefazolin 2g Q8H for treatment of suspected infective endocarditis. [id number] first dose on evening of 06/09, as of 06/16/2020 has received his first AM dose at 0400. of his 28 total days of IV ABX. Case management has been in contact with [place] for approval of IV Cefazolin. Per [facility] request patient needs a DANIELE before IV ABX will be approved at home.Patient has been accepted by Dr. Cruz of [facility] cardiology. Patient Covid-19 PCR has been negative since 06/16/2020. Has not been on Precautions since admission. Full Code Exam Condition Vital Signs - Most Recent: Last Vital Signs Temp 97.1 F L 06/14/20 19:00 Pulse 72 06/14/20 21:12 Resp 20 06/14/20 19:00 BP 171/89 06/14/20 21:12 Pulse Ox 96 06/14/20 19:00 Ht Wt BMI Current Height 6 ft Current Weight 282 lb Body Mass Index (BMI) 38.2 Body Mass Index (BMI) Obese Classification Discharge Plan Discharge Education Printouts: Chest Pain (ED) Medications Home Medications aspirin 81 mg PO DAILY 07/06/19 [History] nitroglycerin 0.4 mg SUBLINGUAL Q5MIN PRN 07/06/19 [History] aripiprazole 5 mg PO DAILY 07/07/19 [History] atorvastatin 80 mg PO DAILY 07/07/19 [History] carvedilol 25 mg PO BID 07/07/19 [History] cholecalciferol (vitamin D3) 25 mcg PO DAILY 07/07/19 [History] duloxetine 60 mg PO DAILY 07/07/19 [History] folic acid 1 mg PO DAILY 07/07/19 [History] gabapentin 600 mg PO TID 07/07/19 [History] metformin 1,000 mg PO BID 07/07/19 [History] tamsulosin 0.4 mg PO DAILY 07/07/19 [History] Eliquis 5 mg PO BID 05/29/20 [History] amiodarone 200 mg PO BID #60 tab 05/31/20 [Rx] amiodarone 400 mg PO BID #24 tab 05/31/20 [Rx] cyanocobalamin (vitamin B-12) 500 mcg PO DAILY 05/31/20 [History] omega-3 fatty acids-vitamin E 1,000 cap PO DAILY 05/31/20 [History] trazodone 100 mg PO HS 05/31/20 [History] pen needle, diabetic [BD Ultra-Fine Orig Pen Needle] #10 ea 06/01/20 [Rx] Subjective-ROS Review of Systems General: Denies Fever, Chills, Night Sweats and Malaise HEENT: Denies Headaches, Visual Changes and Dysphasia Endocrine: Denies Excessive sweating and Flushing Cardiovascular: Denies Chest Pain, Palpitations, Orthopnea and Edema Pulmonary: Denies Dyspnea, Cough and Pleuritic Chest Pain Gastrointestinal: Denies nausea, vomiting and diarrhea Genitourinary: Denies Dysuria, Frequency and Incontinence Musculoskeletal: Reports Joint Pain (Acromial joint); Denies Muscle Pain Neurological: Denies Weakness and Numbness Hematological/Lymphatic: Denies easy bleeding and easy bruising Allergic/Immunologic: Denies rash, hives, fever and night sweats Quality Measures Tobacco Use Smoking Status: Former smoker BMI Screening: Current Height: 6 ft Current Weight: 282 lb Body Mass Index (BMI): 38.2 Influenza Immunization Hx/Date of Influenza Vaccination (from nursing Hx): Yes Safety Two or more falls in last year? (Future fall risk): Yes Fall with injury in last year (Future fall risk): Yes Future fall risk?: Patient screens as a future fall risk Diabetes Care Measures HgAic/Microalbumin: HgA1c Hemoglobin A1c 9.9 % (3.8-5.6) H 06/08/20 05:30 Glucose/POC Glucose: POC Glucose last 48 hrs 06/13/20 06/13/20 06/13/20 07:33 12:15 16:37 POC Glucose 209 H 279 H 308 H 06/13/20 06/14/20 06/14/20 22:20 07:33 12:16 POC Glucose 274 H 215 H 273 H 01/20/21 01/20/21 17:15 20:36 POC Glucose 312 H 306 H Glucose last 48 hrs 06/14/20 06/15/20 07:30 04:00 Glucose 216 H 242 H Discharge Plan Admission/Discharge Dx Primary DC Diagnosis: Suspected endocarditis Condition Condition: Good Discharge Detail Disposition: Home, Self-Care Med Rec New Prescriptions: Continued nitroglycerin 0.4 mg tablet, sublingual 0.4 mg sublingual Q5MIN PRN (Reason: Chest Pain) RF: 0 aspirin 81 mg Tablet,Chewable 81 mg PO DAILY RF: 0 atorvastatin 40 mg Tablet 80 mg PO DAILY RF: 0 carvedilol 25 mg Tablet 25 mg PO BID RF: 0 gabapentin 600 mg Tablet 600 mg PO TID RF: 0 tamsulosin 0.4 mg Capsule 0.4 mg PO DAILY RF: 0 metformin 1,000 mg Tablet 1,000 mg PO BID RF: 0 folic acid 1 mg Tablet 1 mg PO DAILY RF: 0 aripiprazole 5 mg Tablet 5 mg PO DAILY RF: 0 cholecalciferol (vitamin D3) 1,000 unit/drop Drops 25 mcg PO DAILY RF: 0 duloxetine 60 mg Capsule, Delayed Rel Sprinkle 60 mg PO DAILY RF: 0 Eliquis 5 mg Tablet 5 mg PO BID RF: 0 cyanocobalamin (vitamin B-12) 500 mcg Tablet 500 mcg PO DAILY RF: 0 trazodone 100 mg Tablet 100 mg PO HS RF: 0 omega-3 fatty acids-vitamin E 1,000 mg Capsule 1,000 cap PO DAILY RF: 0 amiodarone 200 mg Tablet 400 mg PO BID Qty: 24 RF: 0 amiodarone 200 mg tablet 200 mg PO BID Qty: 60 RF: 0 (DME) pen needle, diabetic [BD Ultra-Fine Orig Pen Needle] 29 gauge x 1/2" needle See Rx Instructions .ROUTE .MEDSUPPLY Qty: 10 RF: 0 Discharge Education Printouts: Chest Pain (ED) Follow Up Visit/Referrals: Anthony Gonzalez MD [PHYSICIAN] - 2 Weeks Whit Ferreira M.D. [PHYSICIAN] - 1 Week Cindy Iraheta NP [Primary Care Provider] - 1 Week Diet:: Consistent carbohydrate Medications Medication reconciliation performed by provider at discharge: Yes Quality Indicators Conditions Present During Course of Hospitalization: None Apply *Discharge Patient* Discharge Orders: Discharge Order (Routine); Ordered 06/16/20 Ordered By: Nicolle Walls Dictated by: <Electronically signed by Nicolle CLEMENT> Nicolle CLEMENT 06/16/20 0906 Nicolle Walls SIGNATURE DA Report Cosigners: D: MUSTA 06/16/20726 T: MUSTA 06/15/20726 CC: Name Value Range Interpretation Code Description Data Evelin rce(s) Supporting Document(s) ID Date Data Source [id number] 06/15/2020 05:06:00 AM EST [facility] LINE DRAW LINE DRAW Name Value Range Interpretation Code Description Data Evelin rce(s) Supporting Document(s) Leukocytes [#/volume] in Blood by Automated count 10.0 10*3/uL 4.45-1 0.71 N [facility] Erythrocytes [#/volume] in Blood by Automated count 4.36 10*6/uL 4.3- 6.1 N [facility] Hemoglobin [Moles/volume] in Blood 12.6 g/dL 13-18 Below low no rmal [facility] Hematocrit [Volume Fraction] of Blood by Automated count 38.5 % 42-52 Below low normal [facility] Erythrocyte mean corpuscular volume [Ent itic volume] in Cord blood by Automated count 88.3 fL 80-96 N [facility] Erythrocyte mean corpuscular hemoglobin [Entitic mass] by Automated count 28.9 pg 27-31 N [facility] Erythrocyte mean corpuscular hemoglobin concentration [Mass/volume] in Cord blood 32.7 g/dL 33-37 Below low normal [facility] Erythrocyte distribution width [Entitic volume] by Automated count 12 % 11-15 N [facility] Platelets [#/volume] in Blood by Automated count 415 10*3/uL 130-472 N [facility] Platelet mean volume [Entitic volume] in Blood 8.9 fL 9.1-13. 1 Below low normal [facility] Neutrophils/100 leukocytes in Blood by Automated count 70.1 % 41- 77 N [facility] Neutrophils [#/volume] in Blood by Automated count 7.0 U 1.7-7.6 N [facility] Lymphocytes/100 leukocytes in Blood by Automated count 20.8 % 14- 46 N [facility] Lymphocytes [#/volume] in Blood by Automated count 2.1 U 0.6-4.6 N [facility] Monocytes/100 leukocytes in Blood by Automated count 5.2 % 4-12 N [facility] Monocytes [#/volume] in Blood by Automated count 0.5 U 0.2-1.2 N [facility] Eosinophils/100 leukocytes in Blood by Automated count 1.5 % 0-7 N [facility] Eosinophils [#/volume] in Blood by Automated count 0.2 U 0.0-0.5 N [facility] Basophils/100 leukocytes in Blood by Automated count 0.6 % 0.4-1 .3 N [facility] Basophils [#/volume] in Blood by Automated count 0.1 U 0.0-0.2 N [facility] NUCLEATED RED BLOOD CELL 0 % [facility] NUCLEATED RED BLOOD CELL# 0 U [facility] Immature granulocytes [Presence] in Blood by Automated count 0-2 N [facility] Immature granulocytes [#/volume] in Blood by Automated count 0.2 U 0-0.1 Above high normal [facility] Manual Differential panel - Blood NO [facility] ID Date Data Source [id number] 06/15/2020 05:53:00 AM [facility] LINE DRAW LINE DRAW Name Value Range Interpretation Code Description Data Evelin rce(s) Supporting Document(s) Urea nitrogen [Mass/volume] in Serum or Plasma 13 mg/dL 9-23 N [facility] Sodium [Moles/volume] in Serum or Plasma 138 mmol/L 132-146 N [facility] Potassium [Moles/volume] in Serum or Plasma 4.4 mmol/L 3.5-5.5 N [facility] Chloride [Moles/volume] in Serum or Plasma 101 mmol/L 99-109 N [facility] Carbon dioxide, total [Moles/volume] in Serum or Plasma 31 mmol/L 20 -31 N [facility] Anion gap in Serum or Plasma 10 mmol/L 8-[address] [facility] Glucose [Mass/volume] in Serum or Plasma 242 mg/dL 74-106 Above high normal [facility] Creatinine 1.0 mg/dL 0.5-1.1 N [facility] Glomerular filtration rate/1.73 sq M.pre dicted [Volume Rate/Area] in Serum or Plasma Greater Than 60 ABOVE 60 [facility] Alanine aminotransferase [Enzymatic acti vity/volume] in Serum or Plasma by With P-5'-P 31 U/L 10-[address] [facility] ital Aspartate aminotransferase [Enzymatic ac tivity/volume] in Serum or Plasma by With P-5'-P 25 U/L 0-33 N [facility] pital Alkaline phosphatase [Enzymatic activity/volume] in Serum or Plasma 127 U/L 45-129 N [facility] Calcium [Mass/volume] in Serum or Plasma 9.5 mg/dL 8.5-10.1 N [facility] Bilirubin.total [Mass/volume] in Serum or Plasma 0.6 mg/dL 0.3-1.2 [facility] Albumin [Mass/volume] in Serum or Plasma by Bromocresol purple (BCP) dye binding method 2.9 g/dL 3.2-4.8 Below low normal [facility] Protein [Mass/volume] in Serum or Plasma 7.7 g/dL 5.7-8.2 N [facility] ID Date Data Source [id number] 06/14/2020 05:27:00 PM [facility] Name: JAGJIT IBARRA : 1960 Age: 60 MR#: [id number] Admit Date: 06/08/20 Provider: Unique Ford Room #: 292 Consulting Provider: Armaan Reyna MD; Joanna Alfredo; Minh Dumas MD; Anthony Gonzalez MD; Kd De L aRosa PA-C; Whit Pathak; Sydni Keita MD; Eddie Wright MD; Raul Magallon MD Dictation Date: 06/14/20 Progress Note Subjective-ROS Date of service Date of service:: 06/14/20 Review of Systems ROS (Free Text/Narrative):: No significant overnight events reported. Patient has no new complaints.He is anxious to go home. He is tolerating the PICC line well. Vital signs stable. General: Reports No Symptoms/Complaints; Denies Fever, Chills and Fatigue HEENT: Reports No Symptoms Complaints; Denies Headaches and Visual Changes Endocrine: Reports No Symptoms/Complaints; Denies Excessive sweating, Loss of appetite, Intolerance to cold and Intolerance to heat Cardiovascular: Reports No Symptoms/Complaints; Denies Chest Pain, Palpitations and Orthopnea Pulmonary: Reports No Symptoms/Complaints; Denies Dyspnea and Cough Gastrointestinal: Reports No Symptoms/Complaints; Denies nausea, vomiting, abdominal pain and diarrhea Genitourinary: Reports No Symptoms/Complaints; Denies Dysuria, Frequency and Hematuria Musculoskeletal: Reports No Symptoms/Complaints; Denies Muscle Pain and Joint Pain Neurological: Reports No Symptoms/Complaints; Denies Numbness, Incoordination and Change in speech Psych: Reports No Symptoms/Complaints; Denies anxiety, depression, suicidal thoughts and homicidal thoughts Hematological/Lymphatic: Reports No Symptoms/Complaints; Denies easy bleeding, easy bruising and lympathadenopathy Allergic/Immunologic: Reports No Symptoms/Complaints; Denies rash and hives Attestation/Length Of Stay: 06/08/20 13:50 Admit to Inpatient, Acute [STATUS] Routine Location: [facility] Primary diagnosis: Chest pain Isolation: Droplet Status: Inpatient Admission Anticipated Length of stay:: 3-4 Midnights Vital Signs and I O Vitals and I O: Vital Signs last 12 hours Temp Pulse Resp BP Pulse Ox 06/14/20 17:24 75 154/86 06/14/20 10:05 80 141/84 06/14/20 08:09 80 141/84 06/14/20 08:00 97.9 F 75 18 141/84 95 Intake Output Last 24 Hours 06/12/20 06/13/20 06/14/20 23:59 23:59 23:59 Intake Total 1050 / 1050 820 / 820 1390 / 1390 Balance 1050 / 1050 820 / 820 1390 / 1390 Current Weight 282 lb Results Results: 06/14/20 07:30 06/14/20 07:30 Laboratory Results Last 24 hours 06/13/20 16:37: POC Glucose 308 H 06/13/20 22:20: POC Glucose 274 H 06/14/20 07:30: WBC 9.6, RBC 4.29 L, Hgb 12.2 L, Hct 37.4 L, MCV 87.2, MCH 28.4, MCHC 32.6 L, RDW 12, Plt Count 377, MPV 8.7 L, Immature Gran % (Auto) 2.6 H, Neut % (Auto) 70.5, Lymph % (Auto) 19.2, Mccone % (Auto) 5.7, Eos % (Auto) 1.5, Baso % (Auto) 0.5, Lymph # (Auto) 1.8, Abs Immat Gran (auto) 0.3 H, Add Manual Diff Manual diff added, Total Counted 100, Neutrophils (Manual) 65, Absolute Neutrophils 6.8, Lymphocytes (Manual) 19, Monocytes (Manual) 12, Monocytes # 0.6, Eosinophils (Manual) 3, Absolute Eosinophils 0.1, Basophils (Manual) 1, Absolute Basophils 0.1, Platelet Estimate Appears normal, RBC Morphology Appears normal 06/14/20 07:30: Sodium 135, Potassium 4.1, Chloride 101, Carbon Dioxide 28, Anion Gap 10, BUN 13, Creatinine 0.9, GFR Calculation Greater than 60, Glucose 216 H, Calcium 8.9, Total Bilirubin 0.7, AST 25, ALT 26, Alkaline Phosphatase 110, Serum Total Protein 7.6, Albumin 2.8 L 06/14/20 07:33: POC Glucose 215 H Microbiology 06/09/20 06:00 Venous blood Blood Culture - Final No growth. 06/09/20 06:00 Venous blood Blood Culture - Final No growth. 06/08/20 11:40 Venous blood Blood Culture - Final No growth. 06/08/20 11:40 Venous blood Blood Culture - Final No growth. 06/10/20 07:21 Venous blood Blood Culture - Preliminary NO GROWTH AFTER 48 HOURS 06/10/20 07:21 Venous blood Blood Culture - Preliminary NO GROWTH AFTER 48 HOURS 06/07/20 16:20 Venous blood Blood Culture - Final Staphylococcus Aureus 06/07/20 16:20 Venous blood Blood Culture - Final Staphylococcus Aureus 06/07/20 02:05 Venous blood Blood Culture - Final Staphylococcus Aureus 06/07/20 02:05 Venous blood Blood Culture - Final Staphylococcus Aureus 06/07/20 02:05 V enous blood - Final Staphylococcus species Staphylococcus aureus detected 06/06/20 20:50 Nasopharyngeal Respiratory Panel (PCR) - Final No Organisms Detected 06/06/20 20:50 Nasopharyngeal Influenza-Like Illness (PCR) - Final No Organisms Detected 06/06/20 20:50 Nasopharyngeal - Final Exam Orientation: Alert, Oriented x3, Cooperative and No acute distress HEENT: Atraumatic, PERRLA and Mucous membr. moist/pink Lungs: normal lung sounds bilaterally; negative for respiratory distress, wheezes, rales and rhonchi Cardiovascular Exam: regular rate and normal rhythm Abdomen: Normal bowel sounds and Soft; negative for Tenderness and Hepatospenomegaly Extremities: normal inspection and capillary refill brisk; negative for pedal edema and calf tenderness Skin: Skin warm and dry, Mucus membranes moist Neurological: Normal speech, Normal tone and Sensation intact Psych/Mental Status: normal affect and normal mood Assessment/Plan Impressions/Problems (1) Internal derangement of left shoulder: Code(s): M24.812 - Other specific joint derangements of left shoulder, not elsewhere classified SNOMED Code(s): 07904954200713350 A P Free Text/Narrative :: 60 y/o male with PMH of anteroapical IA in 2013 requiring multiple stents admitted on 06/06/2020 for chest pain rule out. Patient had an ICD placed in 2014 and had a CVA in 2016. Labs reviewed. Plan 1. Suspected endocarditis - IV Vanco discontinued as Staph aureus is Methicillin suscepti ble, switched to IV Cefazolin 2g IV Q8H (x4 weeks) - Patient needs DANIELE- will arrange for out-patient DANIELE through [facility] Cardiology - Patient has to reschedule appointment on 06/13 at [facility] Cardiology in [place] - Blood cultures from 06/08, 06/09, 06/10 were negative after 48 hours - Dr. Ferreira from [facility] Cardiology saw the patient and recommended the following: - 4-6 weeks total of ABX - Repeat blood cultures the day after ABX are completed - If blood cultures sterilize immediately, complete antibiotic course and reassess 2. Chest pain - Resolved; continue telemetry - TSH WNL, repeat troponin negative 3. Status post AICD pacemaker - Will see soda jerker; needs follow- up appointment rescheduled 4. History of pulmonary embolism/DVT - Continue Eliquis 5. Status post Malka filter placement 6. Atrial fibrillation - Continue amiodarone, Eliquis 7. Hyperlipidemia - Continue atorvastatin, fish oil 8. Hypertension - Continue carvedilol 9. GERD 10. Hazy density superior mesenteric artery and celiac axis by CT abdomen 11. Right liver hypodensity by CT abdomen - Abdominal US showed no cholelithiasis or biliary ductal dilatation, no renal calculus or hydronephrosis on the right, and no free intraperitoneal fluid 12. Type 2 DM - Continue Metformin; continue Accu-cheks and insulin sliding scale 13. Depression - Continue duloxetine, trazodone 14. BPH - Continue tamsulosin 15. Coronary artery disease - Continue aspirin 16. Left shoulder pain Patient reports falling on the left shoulder prior to coming to the ER and reports a history of tendon injury of the left shoulder - Dr. Gonzalez consulted the patient today and reports the exam is consistent with a small left rotator cuff tear; pacemaker prevents obtaining MRI; patient will require out-patient shoulder US as our radiology team does not do this here; he recommends a subacromial cortisone injection but should wait a minimum of 2 weeks to do this due to recent bacteremia - Follow-up in ortho clinic in 1-2 weeks - Continue Tylenol and Tramadol prn for pain Plan: Discharge pending [place] approval for out-patient IV antibiotic treatment- anticipate tomorrow. Just need final approval from [place]. Patient will be set up for follow-up cardiology appointment after discharge for DANIELE. DVT prophylaxis: continue Eliquis Care plan: Plan of care discussed with patient and or family, Patient encouraged to ask questions about plan and Patient agrees with plan of care Dictated by: <Electronically signed by Unique CLEMENT> Unique CLEMENT 06/14/201911 Unique Ford SIGNATURE DA Report Cosigners: <<Signature on File>> Christo Llamas MD 06/15/20710 <Electronically signed by Christo Llamas MD> Christo Llamas MD 06/15/20710 D: ANTONIETTASAJoelle 06/14/201726 T: [facility] 06/14/201726 CC: Name Value Range Interpretation Code Description Data Evelin rce(s) Supporting Document(s) ID Date Data Source [id number] 06/14/2020 08:07:00 AM EST [facility] @06/14/20 0754: MANUAL DIFF added. RFLXG = DIFF. @06/14/20 0754: MANUAL DIFF added. RFLXG = DIFF. Name Value Range Interpretation Code Description Data Evelin rce(s) Supporting Document(s) Leukocytes [#/volume] in Blood by Automated count 9.6 10*3/uL 4.45-10 .71 N [facility] Erythrocytes [#/volume] in Blood by Automated count 4.29 10*6/uL 4.3-6.1 Below low normal [facility] Hemoglobin [Moles/volume] in Blood 12.2 g/dL 13-18 Below low no rmal [facility] Hematocrit [Volume Fraction] of Blood by Automated count 37.4 % 42-52 Below low normal [facility] Erythrocyte mean corpuscular volume [Ent itic volume] in Cord blood by Automated count 87.2 fL 80-96 N [facility] Erythrocyte mean corpuscular hemoglobin [Entitic mass] by Automated count 28.4 pg 27-31 N [facility] Erythrocyte mean corpuscular hemoglobin concentration [Mass/volume] in Cord blood 32.6 g/dL 33-37 Below low normal [facility] Erythrocyte distribution width [Entitic volume] by Automated count 12 % 11-15 N [facility] Platelets [#/volume] in Blood by Automated count 377 10*3/uL 130-472 N [facility] Platelet mean volume [Entitic volume] in Blood 8.7 fL 9.1-13. 1 Below low normal [facility] Neutrophils/100 leukocytes in Blood by Automated count 70.5 % 41- 77 N [facility] Neutrophils [#/volume] in Blood by Automated count 6.8 U 1.7-7.6 N [facility] Lymphocytes/100 leukocytes in Blood by Automated count 19.2 % 14- 46 N [facility] Lymphocytes [#/volume] in Blood by Automated count 1.8 U 0.6-4.6 N [facility] Monocytes/100 leukocytes in Blood by Automated count 5.7 % 4-12 N [facility] Monocytes [#/volume] in Blood by Automated count 0.6 U 0.2-1.2 [facility] Eosinophils/100 leukocytes in Blood by Automated count 1.5 % 0-7 N [facility] Eosinophils [#/volume] in Blood by Automated count 0.1 U 0.0-0.5 N [facility] Basophils/100 leukocytes in Blood by Automated count 0.5 % 0.4-1 .3 N [facility] Basophils [#/volume] in Blood by Automated count 0.1 U 0.0-0.2 N [facility] NUCLEATED RED BLOOD CELL 0 % [facility] NUCLEATED RED BLOOD CELL# 0 U [facility] Immature granulocytes [Presence] in Blood by Automated count 0-2 Above high normal [facility] Immature granulocytes [#/volume] in Blood by Automated count 0.3 U 0-0.1 Above high normal [facility] Manual Differential panel - Blood Manual Diff Added [facility] ID Date Data Source [id number] 06/14/2020 08:19:00 AM EST [facility] @06/14/20 0754: MANUAL DIFF added. RFLXG = DIFF. @06/14/20 0754: MANUAL DIFF added. RFLXG = DIFF. Name Value Range Interpretation Code Description Data Evelin rce(s) Supporting Document(s) Urea nitrogen [Mass/volume] in Serum or Plasma 13 mg/dL 9-23 N [facility] Sodium [Moles/volume] in Serum or Plasma 135 mmol/L 132-146 [facility] Potassium [Moles/volume] in Serum or Plasma 4.1 mmol/L 3.5-5.5 [facility] Chloride [Moles/volume] in Serum or Plasma 101 mmol/L 99-109 [facility] Carbon dioxide, total [Moles/volume] in Serum or Plasma 28 mmol/L 20 -31 N [facility] Anion gap in Serum or Plasma 10 mmol/L 8-16 N [facility] Glucose [Mass/volume] in Serum or Plasma 216 mg/dL 74-106 Above high normal [facility] Creatinine 0.9 mg/dL 0.5-1.1 [facility] Glomerular filtration rate/1.73 sq M.pre dicted [Volume Rate/Area] in Serum or Plasma Greater Than 60 ABOVE 60 [facility] Alanine aminotransferase [Enzymatic acti vity/volume] in Serum or Plasma by With P-5'-P 26 U/L 10-[address] [facility] ital Aspartate aminotransferase [Enzymatic ac tivity/volume] in Serum or Plasma by With P-5'-P 25 U/L 0-33 N [facility] pital Alkaline phosphatase [Enzymatic activity/volume] in Serum or Plasma 110 U/L 45-129 N [facility] Calcium [Mass/volume] in Serum or Plasma 8.9 mg/dL 8.5-10.1 N [facility] Bilirubin.total [Mass/volume] in Serum or Plasma 0.7 mg/dL 0.3-1.2 N [facility] Albumin [Mass/volume] in Serum or Plasma by Bromocresol purple (BCP) dye binding method 2.8 g/dL 3.2-4.8 Below low normal [facility] Protein [Mass/volume] in Serum or Plasma 7.6 g/dL 5.7-8.2 [facility] ID Date Data Source [id number] 06/14/2020 08:07:00 AM [facility] @06/14/20 0754: MANUAL DIFF added. RFLXG = DIFF. @06/14/20 0754: MANUAL DIFF added. RFLXG = DIFF. Name Value Range Interpretation Code Description Data Evelin rce(s) Supporting Document(s) Cells counted [#] 100 [facility] Neutrophils [#/volume] in Blood by Manual count 65 % 41-77 N [facility] Lymphocytes [#/volume] in Blood by Manual count 19 % 14-46 N [facility] Monocytes [#/volume] in Blood by Manual count 12 % 4-12 N [facility] Eosinophils [#/volume] in Blood by Manual count 3 % 0-7 N [facility] Basophils [#/volume] in Blood by Manual count 1 % 0-2 N [facility] Platelets [#/volume] in Blood by Estimate APPEARS NORMAL NORMAL [facility] Morphology [Interpretation] in Blood Narrative APPEARS NORMAL NORMAL [facility] ID Date Data Source [id number] 06/13/2020 04:35:00 PM [facility] Name: JAGJIT IBARRA : 1960 Age: 60 MR#: [id number] Admit Date: 06/08/20 Provider: Unique Ford Room #: 292 Consulting Provider: Armaan Reyna MD; Joanna Alfredo; Minh Dumas MD; Anthony Gonzalez MD; Kd De La Rosa PA-C; Whit Pathak; Sydni Keita MD; Eddie Wright MD; Raul Magallon MD Dictation Date: 06/13/20 Progress Note Subjective-ROS Date of service Date of service:: 06/13/20 Review of Systems ROS (Free Text/Narrative):: No significant overnight events reported. Vital signs stable. Patient has no new complaints. He reports left shoulder pain worse today from sleeping on the affected side last night. General: Reports No Symptoms/Complaints; Denies Fever, Chills and Fatigue HEENT: Reports No Symptoms Complaints; Denies Headaches and Visual Changes Endocrine: Reports No Symptoms/Complaints; Denies Excessive sweating, Loss of appetite, Intolerance to cold and Intolerance to heat Cardiovascular: Reports No Symptoms/Complaints; Denies Chest Pain, Palpitations and Orthopnea Pulmonary: Reports No Symptoms/Complaints; Denies Dyspnea and Cough Gastrointestinal: Reports No Symptoms/Complaints; Denies nausea, vomiting, abdominal pain and diarrhea Genitourinary: Reports No Symptoms/Complaints; Denies Dysuria, Frequency and Hematuria Musculoskeletal: Reports No Symptoms/Complaints and Shoulder Pain (Left shoulder aches); Denies Muscle Pain and Joint Pain Neurological: Reports No Symptoms/Complaints; Denies Numbness, Incoordination and Change in speech Psych: Reports No Symptoms/Complaints; Denies anxiety, depression, suicidal thoughts and homicidal thoughts Hematological/Lymphatic: Reports No Symptoms/Complaints; Denies easy bleeding, easy bruising and lympathadenopathy Allergic/Immunologic: Reports No Symptoms/Complaints; Denies rash and hives Attestation/Length Of Stay: 06/08/20 13:50 Admit to Inpatient, Acute [STATUS] Routine Location: [facility] Primary diagnosis: Chest pain Isolation: Droplet Status: Inpatient Admission Anticipated Length of stay:: 3-4 Midnights Vital Signs and I O Vitals and I O: Vital Signs last 12 hours Temp Pulse Resp BP Pulse Ox 06/13/20 15:11 75 18 153/78 96 06/13/20 12:00 98.1 F 75 18 153/78 96 06/13/20 09:54 78 136/78 06/13/20 09:37 78 136/83 06/13/20 08:00 98.4 F 78 18 136/83 96 06/13/20 06:00 82 Intake Output Last 24 Hours 06/11/20 06/12/20 06/13/20 23:59 23:59 23:59 Intake Total 1680 / 1680 1050 / 1050 580 / 580 Output Total 1300 / 1300 Balance 380 / 380 1050 / 1050 580 / 580 Results Results: 06/13/20 04:47 06/13/20 04:47 Laboratory Results Last 24 hours 06/12/20 16:39: POC Glucose 298 H 06/12/20 22:24: POC Glucose 264 H 06/13/20 04:47: WBC 10.4, RBC 4.16 L, Hgb 12.0 L, Hct 36.3 L, MCV 87.3, MCH 28.8, MCHC 33.1, RDW 12, Plt Count 406, MPV 8.9 L, Immature Gran % (Auto) 2.6 H, Neut % (Auto) 71.2, Lymph % (Auto) 18.5, Mccone % (Auto) 6.0, Eos % (Auto) 1.1, Baso % (Auto) 0.6, Lymph # (Auto) 1.9, Abs Immat Gran (auto) 0.3 H, Add Manual Diff Manual diff added, Total Counted 100, Neutrophils (Manual) 83 H, Absolute Neutrophils 7.4, Lymphocytes (Manual) 14, Monocytes (Manual) 2 L, Monocytes # 0.6, Eosinophils (Manual) 1, Absolute Eosinophils 0.1, Absolute Basophils 0.1, Platelet Estimate Appears normal, RBC Morphology Appears normal 06/13/20 04:47: Sodium 137, Potassium 4.3, Chloride 101, Carbon Dioxide 29, Anion Gap 11, BUN 10, Creatinine 0.9, GFR Calculation Greater than 60, Glucose 237 H, Calcium 8.8, Total Bilirubin 0.6, AST 19, ALT 25, Alkaline Phosphatase 119, Serum Total Protein 6.9, Albumin 2.7 L 06/13/20 07:33: POC Glucose 209 H 06/13/20 12:15: POC Glucose 279 H Microbiology 06/08/20 11:40 Venous blood Blood Culture - Final No growth. 06/08/20 11:40 Venous blood Blood Culture - Final No growth. 06/10/20 07:21 Venous blood Blood Culture - Preliminary NO GROWTH AFTER 48 HOURS 06/10/20 07:21 Venous blood Blood Culture - Preliminary NO GROWTH AFTER 48 HOURS 06/09/20 06:00 Venous blood Blood Culture - Preliminary NO GROWTH AFTER 48 HOURS 06/09/20 06:00 Venous blood Blood Culture - Preliminary NO GROWTH AFTER 48 HOURS 06/07/20 16:20 Venous blood Blood Culture - Final Staphylococcus Aureus 06/07/20 16:20 Venous blood Blood Culture - Final Staphylococcus Aureus 06/07/20 02:05 Venous blood Blood Culture - Final Staphylococcus Aureus 06/07/20 02:05 Venous blood Blood Culture - Final Staphylococcus Aureus 06/07/20 02:05 Venous blood - Final Staphylococcus species Staphylococcus aureus detected 06/06/20 20:50 Nasopharyngeal Respiratory Panel (PCR) - Final No Organisms Detected 06/06/20 20:50 Nasopharyngeal Influenza-Like Illness (PCR) - Final No Organisms Detected 06/06/20 20:50 Nasopharyngeal - Final Exam Orientation: Alert, Oriented x3, Cooperative and No acute distress HEENT: Atraumatic, PERRLA and Mucous membr. moist/pink Lungs: normal lung sounds bilaterally; negative for respiratory distress, wheezes, rales and rhonchi Cardiovascular Exam: regular rate and normal rhythm Abdomen: Normal bowel sounds and Soft; negative for Tenderness and Hepatospenomegaly Extremities: normal inspection and capillary refill brisk; negative for pedal edema and calf tenderness Skin: Skin warm and dry, Mucus membranes moist Neurological: Normal speech, Normal tone and Sensation i ntact Psych/Mental Status: normal affect and normal mood Assessment/Plan Impressions/Problems (1) Internal derangement of left shoulder: Code(s): M24.812 - Other specific joint derangements of left shoulder, not elsewhere classified SNOMED Code(s): 58999086565066088 A P Free Text/Narrative :: 60 y/o male with PMH of anteroapical IA in 2013 requiring multiple stents admitted on 06/06/2020 for chest pain rule out. Patient had an ICD placed in 2015 and had a CVA in 2016. Labs reviewed. Plan 1. Suspected endocarditis - IV Vanco discontinued as Staph aureus is Methicillin susce ptible, switched to IV Cefazolin 2g IV Q8H (x4 weeks) - Patient needs DANIELE; can either do it out-patient once patient is discharged from the hospital or can transfer the patient to [place] for in-patient - Patient has to reschedule appointment on 06/13 at [facility] Cardiology in [place] - Blood cultures from 06/08, 06/09, 06/10 were negative after 48 hours - Dr. Ferreira from [facility] Cardiology saw the patient and recommended the following: - 4-6 weeks total of ABX - Daily blood cultures x 3 days - Repeat blood cultures the day after ABX are completed - If daily blood cultures are positive or positive after completing ABX, patient will be required to have ICD removed (he is scheduled to see soda jerker regarding ICD next week) - If blood cultures sterilize immediately, complete antibiotic course and reassess 2. Chest pain - Resolved; continue telemetry - TSH WNL, repeat troponin negative 3. Status post AICD pacemaker - Will see soda jerker; needs follow-up appointment rescheduled 4. History of pulmonary embolism/DVT - Continue Eliquis 5. Status post Cactus filter placement 6. Atrial fibrillation - Continue amiodarone, Eliquis 7. Hyperlipidemia - Continue atorvastatin, fish oil 8. Hypertension - Continue carvedilol 9. GERD 10. Hazy density superior mesenteric artery and celiac axis by CT abdomen 11. Right liver hypodensity by CT abdomen - Abdominal US showed no cholelithiasis or biliary ductal dilatation, no renal calculus or hydronephrosis on the right, and no free intraperitoneal fluid 12. Type 2 DM - Hold Metformin; continue Accu-cheks and insulin sliding scale - Lantus 15 units QHS; monitor blood glucose and adjust Lantus as indicated 13. Depression - Continue duloxetine, trazodone 14. BPH - Continue tamsulosin 15. Coronary artery disease - Continue aspirin 16. Left shoulder pain Patient reports falling on the left shoulder prior to coming to the ER and reports a history of tendon injury of the left shoulder - Dr. Gonzalez consulted the patient today and reports the exam is consistent with a small left rotator cuff tear; pacemaker prevents obtaining MRI; patient will require out-patient shoulder US as our radiology team does not do this here; he recommends a subacromial cortisone injection but should wait a minimum of 2 weeks to do this due to recent bacteremia - Follow-up in ortho clinic in 1-2 weeks - Continue Tylenol and Tramadol prn for pain Plan: PICC line was placed today. Discharge pending [place] approval for out-patient IV antibiotic treatment- anticipate tomorrow. Working to obtain DANIELE to determine endocarditis status and appropriate treatment regimen. Patient was scheduled to see soda jerker at [facility] cardiology? for generator change of pacemaker on May () but this will need to be rescheduled. DVT prophylaxis: continue Eliquis Care plan: Plan of care discussed with patient and or family, Patient encouraged to ask questions about plan and Patient agrees with plan of care Dictated by: <Electronically signed by Unique CLEMENT> Unique CLEMENT 06/13/20 1646 Unique Ford SIGNATURE DA Report Cosigners: <<Signature on File>> Christo Llamas MD 06/13/20 1728 <Electronically signed by Christo Llamas MD> Christo Llamsa MD 06/13/20 1728 D: [facility] 06/13/20 1635 T: [facility] 06/13/20 1635 CC: Name Value Range Interpretation Code Description Data Evelin rce(s) Supporting Document(s) ID Date Data Source [id number] 06/13/2020 11:37:00 AM EST [facility] [address] [place] [address] [phone] NAME SEX PT STATUS ACCOUNT NUMBER JAGJIT IBARRA ADM IN [id number] ORDERING PHYSICIAN LOCATION MEDICAL RECORD NO. BETTINA CHOUBMESSER [id number] ATTENDING PHYSICIAN DATE OF DATE OF EXAM/TIME Cindy Iraheta NP 1960 06/13/20 / 1125 TYPE / EXAM Xray Chest One View REASON FOR EXAM PICC LINE CLINICAL HISTORY: PICC LINE TECHNIQUE: Single portable radiograph of the chest obtained. COMPARISON: 05/29/2020. FINDINGS: Interval placement of a right upper extremity PICC. The distal tip is not well-visualized, likely at the cavoatrial junction. An AICD is in place embedded in the left chest wall with leads projecting over the right atrium, right ventricle and coronary sinus. The cardiomediastinal silhouette is unremarkable. Mild left basilar atelectatic changes are present. There is no focal pulmonary consolidation, pleural effusion or pneumothorax. There are degenerative changes of the thoracic spine. IMPRESSION: 1. Interval placement of a right upper extremity PICC as described above. 2. No focal pulmonary consolidation, pleural effusion or pneumothorax. Reported By Alexander Cortes DO on 06/13/20 1137 Signed By Alexander Cortes DO on 06/13/20 1144 Date Time CC: Alexander Cortes DO; Cindy Iraheta Techn: CARAI Trans Dt/Tm: Trans by: DT Prt Dt/Tm: [id number]: Total DLP = 0.00 mGy-cm Fluoroscopy Time (in secs): Name Value Range Interpretation Code Description Data Evelin rce(s) Supporting Document(s) ID Date Data Source [id number] 06/13/2020 09:59:00 AM EST [facility] ([facility]) Name Value Range Interpretation Code Description Data [facility] rce(s) Supporting Document(s) .Scanned Labs Laboratory test result [facility] ([facility]) ID Date Data Source [id number] 06/13/2020 06:50:00 AM [facility] @06/13/20 0648: MANUAL DIFF added. RFLXG = DIFF. @06/13/20 0648: MANUAL DIFF added. RFLXG = DIFF. Name Value Range Interpretation Code Description Data Evelin rce(s) Supporting Document(s) Urea nitrogen [Mass/volume] in Serum or Plasma 10 mg/dL 9-23 N [facility] Sodium [Moles/volume] in Serum or Plasma 137 mmol/L 132-146 [facility] Potassium [Moles/volume] in Serum or Plasma 4.3 mmol/L 3.5-5.5 N [facility] Chloride [Moles/volume] in Serum or Plasma 101 mmol/L 99-109 N [facility] Carbon dioxide, total [Moles/volume] in Serum or Plasma 29 mmol/L 20 -31 N [facility] Anion gap in Serum or Plasma 11 mmol/L 8-16 N [facility] Glucose [Mass/volume] in Serum or Plasma 237 mg/dL 74-106 Above high normal [facility] Creatinine 0.9 mg/dL 0.5-1.1 [facility] Glomerular filtration rate/1.73 sq M.pre dicted [Volume Rate/Area] in Serum or Plasma Greater Than 60 ABOVE 60 [facility] Alanine aminotransferase [Enzymatic acti vity/volume] in Serum or Plasma by With P-5'-P 25 U/L 10-49 [facility] ital Aspartate aminotransferase [Enzymatic ac tivity/volume] in Serum or Plasma by With P-5'-P 19 U/L 0-33 [facility] pital Alkaline phosphatase [Enzymatic activity/volume] in Serum or Plasma 119 U/L 45-129 N [facility] Calcium [Mass/volume] in Serum or Plasma 8.8 mg/dL 8.5-10.1 [facility] Bilirubin.total [Mass/volume] in Serum or Plasma 0.6 mg/dL 0.3-1.2 [facility] Albumin [Mass/volume] in Serum or Plasma by Bromocresol purple (BCP) dye binding method 2.7 g/dL 3.2-4.8 Below low normal [facility] Protein [Mass/volume] in Serum or Plasma 6.9 g/dL 5.7-8.2 [facility] ID Date Data Source [id number] 06/13/2020 07:04:00 AM EST [facility] @06/13/20 0648: MANUAL DIFF added. RFLXG = DIFF. @06/13/20 0648: MANUAL DIFF added. RFLXG = DIFF. Name Value Range Interpretation Code Description Data Evelin rce(s) Supporting Document(s) Leukocytes [#/volume] in Blood by Automated count 10.4 10*3/uL 4.45-1 0.71 N [facility] Erythrocytes [#/volume] in Blood by Automated count 4.16 10*6/uL 4.3-6.1 Below low normal [facility] Hemoglobin [Moles/volume] in Blood 12.0 g/dL 13-18 Below low no rmal [facility] Hematocrit [Volume Fraction] of Blood by Automated count 36.3 % 42-52 Below low normal [facility] Erythrocyte mean corpuscular volume [Ent itic volume] in Cord blood by Automated count 87.3 fL 80-[address] [facility] ital Erythrocyte mean corpuscular hemoglobin [Entitic mass] by Automated count 28.8 pg 27-31 N [facility] l Erythrocyte mean corpuscular hemoglobin concentration [Mass/volume] in Cord blood 33.1 g/dL 33-[address] [facility] ital Erythrocyte distribution width [Entitic volume] by Automated count 12 % 11-15 N [facility] Platelets [#/volume] in Blood by Automated count 406 10*3/uL 130-472 N [facility] Platelet mean volume [Entitic volume] in Blood 8.9 fL 9.1-13. 1 Below low normal [facility] Neutrophils/100 leukocytes in Blood by Automated count 71.2 % 41- 77 N [facility] Neutrophils [#/volume] in Blood by Automated count 7.4 U 1.7-7.6 N [facility] Lymphocytes/100 leukocytes in Blood by Automated count 18.5 % 14- 46 N [facility] Lymphocytes [#/volume] in Blood by Automated count 1.9 U 0.6-4.6 N [facility] Monocytes/100 leukocytes in Blood by Automated count 6.0 % 4-12 N [facility] Monocytes [#/volume] in Blood by Automated count 0.6 U 0.2-1.2 N [facility] Eosinophils/100 leukocytes in Blood by Automated count 1.1 % 0-7 N [facility] Eosinophils [#/volume] in Blood by Automated count 0.1 U 0.0-0.5 N [facility] Basophils/100 leukocytes in Blood by Automated count 0.6 % 0.4-1 .3 N [facility] Basophils [#/volume] in Blood by Automated count 0.1 U 0.0-0.2 N [facility] NUCLEATED RED BLOOD CELL 0 % [facility] NUCLEATED RED BLOOD CELL# 0 U [facility] Immature granulocytes [Presence] in Blood by Automated count 0-2 Above high normal [facility] Immature granulocytes [#/volume] in Blood by Automated count 0.3 U 0-0.1 Above high normal [facility] Manual Differential panel - Blood Manual Diff Added [facility] ID Date Data Source [id number] 06/13/2020 07:04:00 AM [facility] @06/13/20 0648: MANUAL DIFF added. RFLXG = DIFF. @06/13/20 0648: MANUAL DIFF added. RFLXG = DIFF. Name Value Range Interpretation Code Description Data Evelin rce(s) Supporting Document(s) Cells counted [#] 100 [facility] Neutrophils [#/volume] in Blood by Manual count 83 % 41-77 Above high normal [facility] Lymphocytes [#/volume] in Blood by Manual count 14 % 14-46 N [facility] Monocytes [#/volume] in Blood by Manual count 2 % 4-12 B elow low normal [facility] Eosinophils [#/volume] in Blood by Manual count 1 % 0-7 N [facility] Platelets [#/volume] in Blood by Estimate APPEARS NORMAL NORMAL [facility] Morphology [Interpretation] in Blood Narrative APPEARS NORMAL NORMAL [facility] ID Date Data Source [id number] 06/12/2020 02:24:00 PM [facility] Name: JAGJIT IBARRA : 1960 Age: 60 MR#: [id number] Admit Date: 06/08/20 Provider: Unique Ford Room #: 292 Consulting Provider: Armaan Reyna MD; [facility]; Joanna Alfredo; Minh Dumas MD; Anthony Gonzalez MD; Kd De La Rosa PA-C; Whit Pathak; Sydni Keita MD;Eddie Wright MD; Raul Magallon MD Dictation Date: 0 06/12/20 Progress Note Subjective-ROS Date of service Date of service:: 06/12/20 Review of Systems ROS (Free Text/Narrative):: No significant overnight events reported. Patient has no new complaints. He reports left shoulder pain that is unchanged. He denies headache, chest pain, shortness of breath, abdominal pain, nausea, vomiting, or diarrhea. General: Reports No Symptoms/Complaints; Denies Fever, Chills and Fatigue HEENT: Reports No Symptoms Complaints; Denies Headaches and Visual Changes Endocrine: Reports No Symptoms/Complaints; Denies Excessive sweating, Loss of appetite, Intolerance to cold and Intolerance to heat Cardiovascular: Reports No Symptoms/Complaints; Denies Chest Pain, Palpitations and Orthopnea Pulmonary: Reports No Symptoms/Complaints; Denies Dyspnea and Cough Gastrointestinal: Reports No Symptoms/Complaints; Denies nausea, vomiting, abdominal pain and diarrhea Genitourinary: Reports No Symptoms/Complaints; Denies Dysuria, Frequency and Hematuria Musculoskeletal: Reports Shoulder Pain (Left shoulder pain); Denies Muscle Pain and Joint Pain Neurological: Reports No Symptoms/Complaints; Denies Numbness, Incoordination and Change in speech Psych: Reports No Symptoms/Complaints; Denies anxiety, depression, suicidal thoughts and homicidal thoughts Hematological/Lymphatic: Reports No Symptoms/Complaints; Denies easy bleeding, easy bruising and lympathadenopathy Allergic/Immunologic: Reports No Symptoms/Complaints; Denies rash and hives Attestation/Length Of Stay: 06/08/20 13:50 Admit to Inpatient, Acute [STATUS] Routine Location: [facility] Primary diagnosis: Chest pain Isolation: Droplet Status: Inpatient Admission Anticipated Length of stay:: 3-4 Midnights Vital Signs and I O Vitals and I O: Vital Signs last 12 hours Temp Pulse Resp BP Pulse Ox 06/12/20 12:00 98.8 F 75 18 145/72 95 06/12/20 08:49 70 125/78 06/12/20 08:48 70 125/76 06/12/20 08:00 98.4 F 70 18 125/76 95 06/12/20 05:25 97.8 F 85 18 173/98 96 Intake Output Last 24 Hours 06/10/20 06/11/20 06/12/20 23:59 23:59 23:59 Intake Total 1350 / 1350 1680 / 1680 710 / 710 Output Total 2425 / 2425 1300 / 1300 Balance - 1075 / -1075 380 / 380 710 / 710 Results Results: 06/12/20 07:20 06/12/20 07:20 Laboratory Results Last 24 hours 06/11/20 16:47: POC Glucose 214 H 06/11/20 20:40: POC Glucose 326 H 06/12/20 07:20: WBC 9.8, RBC 4.06 L, Hgb 12.0 L, Hct 35.2 L, MCV 86.7, MCH 29.6, MCHC 34.1, RDW 12, Plt Count 357, MPV 8.6 L, Immature Gran % (Auto) 4.0 H, Neut % (Auto) 68.2, Lymph % (Auto) 19.6, Mccone % (Auto) 6.8, Eos % (Auto) 1.0, Baso % (Auto) 0.4, Lymph # (A uto) 1.9, Abs Immat Gran (auto) 0.4 H, Add Manual Diff Manual diff added, Total Counted 100, Neutrophils (Manual) 75, Absolute Neutrophils 6.7, Lymphocytes (Manual) 16, Monocytes (Manual) 7, Monocytes # 0.7, Eosinophils (Manual) 2, Absolute Eosinophils 0.1, Absolute Basophils 0.0, Platelet Estimate Appears normal, RBC Morphology Appears normal 06/12/20 07:20: Sodium 138, Potassium 4.0, Chloride 102, Carbon Dioxide 29, Anion Gap 11, BUN 10, Creatinine 0.9, GFR Calculation Greater than 60, Glucose 225 H, Calcium 9.2, Total Bilirubin 0.6, AST 19, ALT 28, Alkaline Phosphatase 118, Serum Total Protein 7.2, Albumin 2.5 L 06/12/20 07:21: POC Glucose 225 H 06/12/20 11:29: POC Glucose 291 H Microbiology 06/10/20 07:21 Venous blood Blood Culture - Preliminary NO GROWTH AFTER 48 HOURS 06/10/20 07:21 Venous blood Blood Culture - Preliminary NO GROWTH AFTER 48 HOURS 06/09/20 06:00 Venous blood Blood Culture - Preliminary NO GROWTH AFTER 48 HOURS 06/09/20 06:00 Venous blood Blood Culture - Preliminary NO GROWTH AFTER 48 HOURS 06/08/20 11:40 Venous blood Blood Culture - Preliminary NO GROWTH AFTER 48 HOURS 06/08/20 11:40 Venous blood Blood Culture - Preliminary NO GROWTH AFTER 48 HOURS 06/07/20 16:20 Venous blood Blood Culture - Final Staphylococcus Aureus 06/07/20 16:20 Venous blood Blood Culture - Final Staphylococcus Aureus 06/07/20 02:05 Venous blood Blood Culture - Final Staphylococcus Aureus 06/07/20 02:05 Venous blood Blood Culture - Final Staphylococcus Aureus 06/07/20 02:05 Venous blood - Final Staphylococcus species Staphylococcus aureus detected 06/06/20 20:50 Nasopharyngeal Respiratory Panel (PCR) - Final No Organisms Detected 06/06/20 20:50 Nasopharyngeal Influenza-Like Illness (PCR) - Final No Organisms Detected 06/06/20 20:50 Nasopharyngeal - Final Exam Orientation: Alert, Oriented x3, Cooperative and No acute distress HEENT: Atraumatic, PERRLA and Mucous membr. moist/pink Lungs: normal lung sounds bilaterally; negative for respiratory distress, wheezes, rales and rhonchi Cardiovascular Exam: regular rate and normal rhythm Abdomen: Normal bowel sounds and Soft; negative for Tenderness and Hepatospenomegaly Extremities: normal inspection, full ROM (Left shoulder has full ROM, distal pulses intact on left side; no swelling around glenohumeral joint) and capillary refill brisk; negative for pedal edema and calf tenderness Skin: Skin warm and dry, Mucus membranes moist Neurological: Normal speech, Strength at 5/5 X4 ext, Normal tone and Sensation intact Psych/Mental Status: normal affect and normal mood Assessment/Plan Impressions/Problems (1) Internal derangement of left shoulder: Code(s): M24.812 - Other specific joint derangements of left shoulder, not elsewhere classified SNOMED Code(s): 83416838276539681 A P Free Text/Narrative :: 60 y/o male with PMH of anteroapical IA in 2013 requiring multiple stents admitted on 06/06/2020 for chest pain rule out. Patient had an ICD placed in 2014 and had a CVA in 2016. Labs and images reviewed. Plan 1. Suspected endocarditis - IV Vanco discontinued as Staph aureus is Methicillin susceptible, switched to IV Cefazolin 2g IV Q8H (x4 weeks) - Patient needs DANIELE; can either do it out- patient once patient is discharged from the hospital or can transfer the patient to [place] for in-patient - Patient has an appointment on 06/13 at [facility] Cardiology in [place] - Blood cultures from 06/08, 06/09, 06/10 were negative after 48 hours - Dr. Ferreira from [facility] Cardiology saw the patient and recommended the following: - 4-6 weeks total of ABX - Daily blood cultures x 3 days - Repeat blood cultures the day after ABX are completed - If daily blood cultures are positive or positive after completing ABX, patient will be required to have ICD removed (he is scheduled to see soda jerker regarding ICD next week) - If blood cultures sterilize immediately, c omplete antibiotic course and reassess 2. Chest pain - Resolved; continue telemetry - TSH WNL, repeat troponin negative 3. Status post AICD pacemaker Will see soda jerker next week 4. Left shoulder pain and restriction of movement pt was requiring iv morphine during hospital stay will continue PO tylenol and Tramadol will f/u x ray and with ortho service 5. History of pulmonary embolism/DVT - Continue Eliquis 6. Status post Cactus filter placement 7. Atrial fibrillation - Continue amiodarone, Eliquis 8. Hyperlipidemia - Continue atorvastatin, fish oil 9. Hypertension - Continue carvedilol 10. GERD 11. Hazy density superior mesenteric artery and celiac axis by CT abdomen 12. Right liver hypodensity by CT abdomen - Abdominal US showed no cholelithiasis or biliary ductal dilatation, no renal calculus or hydronephrosis on the right, and no free intraperitoneal fluid 13. Type 2 DM - Hold Metformin; continue Accu-cheks and insulin sliding scale - Lantus 15 units QHS; monitor blood glucose and adjust Lantus as indicated 14. Depression - Continue duloxetine, trazodone 15. BPH - Continue tamsulosin 16. Coronary artery disease - Continue aspirin 17. Left shoulder pain Patient reports falling on the left shoulder prior to coming to the ER and reports a history of tendon injury of the left shoulder - Dr. Gonzalez consulted the patient today and reports the exam is consistent with a small left rotator cuff tear; pacemaker prevents obtaining MRI; patient will require out-patient shoulder US as our radiology team does not do this here; he recommends a subacromial cortisone injection but should wait a minimum of 2 weeks to do this due to recent bacteremia - Follow-up in ortho clinic in 1-2 weeks Plan: PICC line to be placed tomorrow. Working to obtain DANIELE to determine endocarditis status and appropriate treatment regimen. Coordinating with case management and Dr. Dumas for out-patient treatment with IV antibiotics so patient can go for out-patient DANIELE. If this is not a viable option, will need to transfer the patient to [place] for in-patient DANIELE. Patient scheduled to see soda jerker at [facility] cardiology? for generator change of pacemaker on May () but this may need to be moved if the home IV care cannot be set up before then. DVT prophylaxis: continue Eliquis Care plan: Plan of care discussed with patient and or family, Patient encouraged to ask questions about plan and Patient agrees with plan of care Dictated by: <Electronically signed by Unique CLEMENT> Unique CLEMENT 06/12/20 1451 Unique Ford SIGNATURE DA Report Cosigners: <<Signature on File>> Christo Llamas MD 06/12/20 145 <Electronically signed by Christo Llamas MD> Christo Llamas MD 06/12/20 145 D: [facility] 06/12/20 142 T: [facility] 06/12/201423 CC: Name Value Range Interpretation Code Description Data Evelin rce(s) Supporting Document(s) ID Date Data Source [id number] 06/12/2020 12:29:00 PM EST [facility] ([facility]) Name Value Range Interpretation Code Description Data Evelin rce(s) Supporting Document(s) .Scanned Labs Laboratory test result [facility] ([facility]) ID Date Data Source [id number] 06/12/2020 10:52:00 AM EST [facility] Name: JAGJIT IBARRA : 1960 Age: 60 MR#: [id number] Admit Date: 06/08/20 Provider: Anthony Gonzalez MD Room #: 292 Consulting Provider: Armaan Reyna MD; [facility]; Joanna Alfredo; Minh Dumas MD; Anthony Gonzalez MD; Kd De La Rosa PA-C; Whit Pathak; Sydni Keita MD; Eddie Wright MD; Raul Magallon MD Dictation Date: 0 06/12/20 Consultation HPI Date of service Date of service:: 06/12/20 History of Present Illness Nurse screening for coronavirus: Recent Travel outside the country (where) Has patient experienced No coronavirus symptoms Chief Complaint: Left shoulder pain Emergency Room stated complaint: Cardiovascular Admitted From: In-House Transfer Primary (Admitting) Diagnosis: Internal derangement left shoulder Source of information: Patient Place Event/Injury Occurred: Reports home HPI Free Text/Narrative:: Patient was admitted last week for bacteremia. Organism grown at time of admission was staph aureus. He is at present time receiving IV antibiotics. He complained of left shoulder pain when seen by the hospitalist yesterday. This coincided to his pain medication being switched from morphine. Patient wishes to be placed back on morphine for his pain. He describes aninjury that occurred to his left shoulder approximately 2 years ago. An ultrasound done at that time revealed what he describes as a small tear in his left rotator cuff. This was treated with an injection with symptomatic benefit up until this time. Patient states that he fell at home and feels that he may have reinjured his left shoulder. Allergies/Home Meds Allergies Allergy/AdvReac Type Severity Reaction Status Date / Time nifedipine [From Procardia] Allergy Mild Taste Verified 06/07/20 00:22 Changes cyclobenzaprine AdvReac Mild Anxiety Verified 06/07/20 00:22 [From Flexeril] prochlorperazine AdvReac Mild Anxiety Verified 06/07/20 00:22 [From Compazine] Home Medications Medication Instructions Recorded Confirmed Last Taken Type aspirin 81 mg PO DAILY 07/06/19 06/06/20 06/06/20 History nitroglycerin 0.4 mg SUBLINGUAL Q5MIN PRN 07/06/19 06/06/20 05/29/20 13:30 History o.4 mg aripiprazole 5 mg PO DAILY 07/07/19 05/29/20 05/29/20 07:00 History 5 mg atorvastatin 80 mg PO DAILY 07/07/19 06/06/20 06/05/20 History carvedilol 25 mg PO BID 07/07/19 06/06/20 06/06/20 History cholecalciferol (vitamin D3) 25 mcg PO DAILY 07/07/19 06/06/20 06/06/20 History duloxetine 60 mg PO DAILY 07/07/19 06/06/20 06/06/20 History folic acid 1 mg PO DAILY 07/07/19 06/06/20 06/06/20 History gabapentin 600 mg PO TID 0206/06/20 06/06/20 History metformin 1,000 mg PO BID 07/07/19 06/06/20 06/06/20 History tamsulosin 0.4 mg PO DAILY 07/07/19 06/06/20 06/06/20 History Eliquis 5 mg PO BID 05/29/20 06/06/20 06/05/20 History amiodarone 200 mg PO BID #60 tab 05/31/20 06/06/20 Unknown Rx amiodarone 400 mg PO BID #24 tab 05/31/20 06/06/20 Unknown Rx cyanocobalamin (vitamin B-12) 500 mcg PO DAILY 05/31/20 06/06/20 06/06/20 History omega-3 fatty acids-vitamin E 1,000 cap PO DAILY 05/31/20 06/06/20 06/06/20 History trazodone 100 mg PO HS 05/31/20 06/06/20 06/06/20 History pen needle, diabetic [BD #10 ea 06/01/20 06/06/20 Unknown Rx Ultra-Fine Orig Pen Needle] PFSH Medical History Deep vein thrombosis Diabetes mellitus Malka filter in place Hiatal hernia Hypertension Myocardial infarction Pacemaker Raynaud's disease Spinal fusion failure Stroke Surgical History H/O knee surgery Hx of heart artery stent Hx of neck surgery Family History Father Cancer Mother Cancer Brother Cancer Social History Does the Patient have a Healthcare Proxy: Yes Does Patient have a DNR?: No Does Patient have a Living Will?: No Does the Patient have a MOLST?: No Advance Directives on File or in chart?: Yes Hx Recent Travel (where): No Smoking Status: Former smoker Sickle cell Sickle Cell Screening:: Not indicated Vital Signs and I O Vitals and I O: Vital Signs last 12 hours Temp Pulse Resp BP Pulse Ox 06/12/20 08:49 70 125/78 06/12/20 08:48 70 125/76 06/12/20 08:00 98.4 F 70 18 125/76 95 01/18/21 05:25 97.8 F 85 18 173/98 96 06/12/20 00:15 97.4 F L 18 152/78 95 Intake Output Last 24 Hours 06/10/20 06/11/20 06/12/20 23:59 23:59 23:59 Intake Total 1350 / 1350 1680 / 1680 360 / 360 Output Total 2425 / 2425 1300 / 1300 Balance -1075 / -1075 380 / 380 360 / 360 Height,Weight BMI: Ht Wt BMI Current Height 6 ft Current Weight 282 lb Body Mass Index (BMI) 38.2 Body Mass Index (BMI) Obese Classification Results Results: 06/12/20 07:20 06/12/20 07:20 Laboratory Results Last 24 hours 06/11/20 11:43: POC Glucose 250 H 06/11/20 16:47: POC Glucose 214 H 06/11/20 20:40: POC Glucose 326 H 06/12/20 07:20: WBC 9.8, RBC 4.06 L, Hgb 12.0 L, Hct 35.2 L, MCV 86.7, MCH 29.6, MCHC 34.1, RDW 12, Plt Count 357, MPV 8.6 L, Immature Gran % (Auto) 4.0 H, Neut % (Auto) 68.2, Lymph % (Auto) 19.6, Mccone % (Auto) 6.8, Eos % (Auto) 1.0, Baso % (Auto) 0.4, Lym ph # (Auto) 1.9, Abs Immat Gran (auto) 0.4 H, Add Manual Diff Manual diff added, Total Counted 100, Neutrophils (Manual) 75, Absolute Neutrophils 6.7, Lymphocytes (Manual) 16, Monocytes (Manual) 7, Monocytes # 0.7, Eosinophils (Manual) 2, Absolute Eosinophils 0.1, Absolute Basophils 0.0, Platelet Estimate Appears normal, RBC Morphology Appears normal 06/12/20 07:20: Sodium 138, Potassium 4.0, Chloride 102, Carbon Dioxide 29, Anion Gap 11, BUN 10, Creatinine 0.9, GFR Calculation Greater than 60, Glucose 225 H, Calcium 9.2, Total Bilirubin 0.6, AST 19, ALT 28, Alkaline Phosphatase 118, Serum Total Protein 7.2, Albumin 2.5 L 06/12/20 07:21: POC Glucose 225 H Microbiology 06/10/20 07:21 Venous blood Blood Culture - Preliminary NO GROWTH AFTER 48 HOURS 06/10/20 07:21 Venous blood Blood Culture - Preliminary NO GROWTH AFTER 48 HOURS 06/09/20 06:00 Venous blood Blood Culture - Preliminary NO GROWTH AFTER 48 HOURS 06/09/20 06:00 Venous blood Blood Culture - Preliminary NO GROWTH AFTER 48 HOURS 06/08/20 11:40 Venous blood Blood Culture - Preliminary NO GROWTH AFTER 48 HOURS 06/08/20 11:40 Venous blood Blood Culture - Preliminary NO GROWTH AFTER 48 HOURS 06/07/20 16:20 Venous blood Blood Culture - Final Staphylococcus Aureus 06/07/20 16:20 Venous blood Blood Culture - Final Staphylococcus Aureus 06/07/20 02:05 Venous blood Blood Culture - Final Staphylococcus Aureus 06/07/20 02:05 Venous blood Blood Culture - Final Staphylococcus Aureus 06/07/20 02:05 Venous blood - Final Staphylococcus species Staphylococcus aureus detected 06/06/20 20:50 Nasopharyngeal Respiratory Panel (PCR) - Final No Organisms Detected 06/06/20 20:50 Nasopharyngeal Influenza-Like Illness (PCR) - Final No Organisms Detected 06/06/20 20:50 Nasopharyngeal - Final Exam Objective Exam: Examination reveals full range of motion of the cervical spine and full active range of motionof the left shoulder in both coronal and sagittal planes. Patient has no restrictions in passive range of motion in respect to left shoulder internal rotation and external rotation. There is no soft tissue swelling about the left glenohumeral joint and no increased warmth is appreciated on direct palpation of the left shoulder. Neurosensory and motor testing the left upper extremity is intact. Peripheral pulses on the affected side are normal. There is no appreciable weakness when resistance is applied to left shoulder abduction although he does have pain with left shoulder abduction. General General: Alert, Oriented x3 and Cooperative HEENT HEENT: Atraumatic and PERRLA Neurological Exam Neurological exam: alert Skin Skin exam: warm, dry and intact Plan Impressions/Problems (1) Internal derangement of left shoulder: Status: Acute Code(s): M24.812 - Other specific joint derangements of left shoulder, not elsewhere classified A P Free Text/Narrative :: Clinical exam is consistent with a small left rotator cuff tear. Patient has a pacemaker that prevents obtaining an MRI scan. Shoulder ultrasounds to detect rotator cuff pathology is not done by our radiology department. Patient would need to be seen as an outpatient somewhere else to have this test performed. I do not feel that a CT scan will give us very much information respect to a small tear of the rotator cuff. A subacromial cortisone injection is certainly indicated but I would wait a week or 2 before administering a subacromial injection due to recent bacteremia. Patient should follow-up in the orthopedic clinic in the next week or 2 following discharge. Plan:: At this point, there is no acute surgical emergency Care plan: Plan of care discussed with patient and or family, Patient encouraged to ask questions about plan, Patient agrees with plan of care and Discharge plan and instructions discussed with patient and or family Report Signers: <Electronically signed by Anthony Gonzalez MD> Anthony Gonzalez MD 06/12/20 1101 Anthony Gonzalez MD SIGNATURE DA Report Cosigners: D: CHIARA 06/12/20 1052 T: CHIARA 06/12/20 1052 CC: Name Value Range Interpretation Code Description Data Evelin rce(s) Supporting Document(s) ID Date Data Source [id number] 06/12/2020 07:44:00 AM EST [facility] @06/12/20 0735: MANUAL DIFF added. RFLXG = DIFF. @06/12/20 0735: MANUAL DIFF added. RFLXG = DIFF. Name Value Range Interpretation Code Description Data Evelin rce(s) Supporting Document(s) Urea nitrogen [Mass/volume] in Serum or Plasma 10 mg/dL 9-23 N [facility] Sodium [Moles/volume] in Serum or Plasma 138 mmol/L 132-146 N [facility] Potassium [Moles/volume] in Serum or Plasma 4.0 mmol/L 3.5-5.5 N [facility] Chloride [Moles/volume] in Serum or Plasma 102 mmol/L 99-109 N [facility] Carbon dioxide, total [Moles/volume] in Serum or Plasma 29 mmol/L 20 -31 N [facility] Anion gap in Serum or Plasma 11 mmol/L 8-16 N [facility] Glucose [Mass/volume] in Serum or Plasma 225 mg/dL 74-106 Above high normal [facility] Creatinine 0.9 mg/dL 0.5-1.1 [facility] Glomerular filtration rate/1.73 sq M.pre dicted [Volume Rate/Area] in Serum or Plasma Greater Than 60 ABOVE 60 [facility] Alanine aminotransferase [Enzymatic acti vity/volume] in Serum or Plasma by With P-5'-P 28 U/L 10-[address] [facility] Aspartate aminotransferase [Enzymatic ac tivity/volume] in Serum or Plasma by With P-5'-P 19 U/L 0-33 N [facility] pital Alkaline phosphatase [Enzymatic activity/volume] in Serum or Plasma 118 U/L 45-129 N [facility] Calcium [Mass/volume] in Serum or Plasma 9.2 mg/dL 8.5-10.1 [facility] Bilirubin.total [Mass/volume] in Serum or Plasma 0.6 mg/dL 0.3-1.2 [facility] Albumin [Mass/volume] in Serum or Plasma by Bromocresol purple (BCP) dye binding method 2.5 g/dL 3.2-4.8 Below low normal [facility] Protein [Mass/volume] in Serum or Plasma 7.2 g/dL 5.7-8.2 [facility] ID Date Data Source [id number] 06/12/2020 08:04:00 AM EST [facility] @06/12/20 0735: MANUAL DIFF added. RFLXG = DIFF. @06/12/20 0735: MANUAL DIFF added. RFLXG = DIFF. Name Value Range Interpretation Code Description Data Evelin rce(s) Supporting Document(s) Leukocytes [#/volume] in Blood by Automated count 9.8 10*3/uL 4.45-10 .71 N [facility] Erythrocytes [#/volume] in Blood by Automated count 4.06 10*6/uL 4.3-6.1 Below low normal [facility] Hemoglobin [Moles/volume] in Blood 12.0 g/dL 13-18 Below low no rmal [facility] Hematocrit [Volume Fraction] of Blood by Automated count 35.2 % 42-52 Below low normal [facility] Erythrocyte mean corpuscular volume [Ent itic volume] in Cord blood by Automated count 86.7 fL 80-[address] [facility] Erythrocyte mean corpuscular hemoglobin [Entitic mass] by Automated count 29.6 pg 27-[address] [facility] Erythrocyte mean corpuscular hemoglobin concentration [Mass/volume] in Cord blood 34.1 g/dL 33-[address] [facility] Erythrocyte distribution width [Entitic volume] by Automated count 12 % 11-15 N [facility] Platelets [#/volume] in Blood by Automated count 357 10*3/uL 130-472 N [facility] Platelet mean volume [Entitic volume] in Blood 8.6 fL 9.1-13. 1 Below low normal [facility] Neutrophils/100 leukocytes in Blood by Automated count 68.2 % 41- 77 N [facility] Neutrophils [#/volume] in Blood by Automated count 6.7 U 1.7-7.6 N [facility] Lymphocytes/100 leukocytes in Blood by Automated count 19.6 % 14- 46 N [facility] Lymphocytes [#/volume] in Blood by Automated count 1.9 U 0.6-4.6 N [facility] Monocytes/100 leukocytes in Blood by Automated count 6.8 % 4-12 N [facility] Monocytes [#/volume] in Blood by Automated count 0.7 U 0.2-1.2 N [facility] Eosinophils/100 leukocytes in Blood by Automated count 1.0 % 0-7 N [facility] Eosinophils [#/volume] in Blood by Automated count 0.1 U 0.0-0.5 N [facility] Basophils/100 leukocytes in Blood by Automated count 0.4 % 0.4-1 .3 N [facility] Basophils [#/volume] in Blood by Automated count 0.0 U 0.0-0.2 N [facility] NUCLEATED RED BLOOD CELL 0 % [facility] NUCLEATED RED BLOOD CELL# 0 U [facility] Immature granulocytes [Presence] in Blood by Automated count 0-2 Above high normal [facility] Immature granulocytes [#/volume] in Blood by Automated count 0.4 U 0-0.1 Above high normal [facility] Manual Differential panel - Blood Manual Diff Added [facility] ID Date Data Source [id number] 06/12/2020 08:04:00 AM EST [facility] @06/12/20 0735: MANUAL DIFF added. RFLXG = DIFF. @06/12/20 0735: MANUAL DIFF added. RFLXG = DIFF. Name Value Range Interpretation Code Description Data Evelin rce(s) Supporting Document(s) Cells counted [#] 100 [facility] Neutrophils [#/volume] in Blood by Manual count 75 % 41-77 N [facility] Lymphocytes [#/volume] in Blood by Manual count 16 % 14-46 N [facility] Monocytes [#/volume] in Blood by Manual count 7 % 4-12 N [facility] Eosinophils [#/volume] in Blood by Manual count 2 % 0-7 N [facility] Platelets [#/volume] in Blood by Estimate APPEARS NORMAL NORMAL [facility] Morphology [Interpretation] in Blood Narrative APPEARS NORMAL NORMAL [facility] ID Date Data Source [id number] 06/11/2020 05:25:00 PM [facility] [address] [place] [address] [phone] NAME SEX PT STATUS ACCOUNT NUMBER JAGJIT IBARRA ADM IN [id number] ORDERING PHYSICIAN LOCATION MEDICAL RECORD NO. Christo Llamas MD [id number] ATTENDING PHYSICIAN DATE OF DATE OF EXAM/TIME Cindy Iraheta NP 1960 06/11/20 / 1606 TYPE / EXAM Xray Shoulder complete LT REASON FOR EXAM left shoulder pain Clinical History/Indication for Exam: left shoulder pain RADIOGRAPHS OF THE LEFT SHOULDER COMPLETE 2 OR MORE VIEWS INDICATION: left shoulder pain COMPARISON: No relevant prior studies available. FINDINGS: Bones/joints: Cervical spine fusion hardware. No acute fracture. No dislocation. Soft tissues: Unremarkable. Tubes, lines and devices: Left chest pacemaker. IMPRESSION: No acute fracture or dislocation of the left shoulder. REPORT SIGNATURE ON FILE 06/11/2020 (17:25 Eastern Time ) Signed by: Haseeb Waddell M.D. Reported By Haseeb Waddell MD on 06/11/201724 Signed By Haseeb Waddell MD on 06/11/201724 Date Time CC: Cindy Iraheta; Haseeb Waddell MD Techn: EBEBR Trans Dt/Tm: Trans by: DT Prt Dt/Tm: [id number]: Total DLP = 0.00 mGy-cm Fluoroscopy Time (in secs): Name Value Range Interpretation Code Description Data Evelin rce(s) Supporting Document(s) ID Date Data Source [id number] 06/11/2020 03:41:00 PM [facility] Name: JAGJIT IBARRA : 1960 Age: 60 MR#: [id number] Admit Date: 06/08/20 Provider: Christo Llamas MD Room #: 292 Consulting Provider: Armaan Reyna MD; [facility]; Joanna Alfredo; Minh Dumas MD; Anthony Gonzalez MD; Kd De La Rosa PA-C; Whit Pathak; Sydni Keita MD; Eddie Wright MD; Raul Magallon MD Dictation Date: 0 06/11/20 Progress Note Subjective-ROS Date of service Date of service:: 06/11/20 Review of Systems Attestation/Length Of Stay: 06/08/20 13:50 Admit to Inpatient, Acute [STATUS] Routine Location: [facility] Primary diagnosis: Chest pain Isolation: Droplet Status: Inpatient Admission Anticipated Length of stay:: 3-4 Midnights Vital Signs and I O Vitals and I O: Vital Signs last 12 hours Temp Pulse Resp BP Pulse Ox 06/11/20 12:00 97.7 F 70 18 143/92 95 06/11/20 08:44 73 157/86 06/11/20 08:42 73 120/71 06/11/20 08:00 97.4 F L 73 18 157/86 94 L 06/11/20 04:00 97.0 F L 72 18 135/80 95 Intake Output Last 24 Hours 06/09/20 06/10/20 06/11/20 23:59 23:59 23:59 Intake Total 2740 / 2740 1350 / 1350 820 / 820 Output Total 4175 / 4175 2425 / 2425 1300 / 1300 Balance -1435 / -1435 -1075 / -1075 -480 / -480 Results Results: 06/11/20 07:20 06/11/20 07:20 Laboratory Results Last 24 hours 06/10/20 16:57: POC Glucose 229 H 06/10/20 19:49: POC Glucose 300 H 06/11/20 07:12: POC Glucose 231 H 06/11/20 07:20: WBC 9.5, RBC 4.16 L, Hgb 11.9 L, Hct 36.3 L, MCV 87.3, MCH 28.6, MCHC 32.8 L, RDW 12, Plt Count 370, MPV 9.1, Immature Gran % (Auto) 4.2 H, Neut % (Auto) 65.4, Lymph % (A uto) 21.6, Mccone % (Auto) 6.5, Eos % (Auto) 1.6, Baso % (Auto) 0.7, Lymph # (Auto) 2.1, Abs Immat Gran (auto) 0.4 H, Add Manual Diff Manual diff added, Total Counted 100, Neutrophils (Manual) 57, Absolute Neutrophils 6.2, Band Neutrophils 3, Lymphocytes (Manual) 23, Monocytes (Manual) 8, Monocytes # 0.6, Eosinophils (Manual) 2, Absolute Eosinophils 0.2, Absolute Basophils 0.1, Atypical Lymphocytes 7 H, Platelet Estimate Appears normal, RBC Morphology Appears normal 06/11/20 07:20: Sodium 137, Potassium 4.2, Chloride 102, Carbon Dioxide 28, Anion Gap 11, BUN 11, Creatinine 0.9, GFR Calculation Greater than 60, Glucose 236 H, Calcium 9.0, Total Bilirubin 0.6, AST 18, ALT 33, Alkaline Phosphatase 107, Serum Total Protein 6.5, Albumin 2.5 L 06/11/20 11:43: POC Glucose 250 H Microbiology 06/10/20 07:21 Venous blood Blood Culture - Preliminary NO GROWTH AFTER 24 HOURS 06/10/20 07:21 Venous blood Blood Culture - Preliminary NO GROWTH AFTER 24 HOURS 06/09/20 06:00 Venous blood Blood Culture - Preliminary NO GROWTH AFTER 48 HOURS 06/09/20 06:00 Venous blood Blood Culture - Preliminary NO GROWTH AFTER 48 HOURS 06/08/20 11:40 Venous blood Blood Culture - Preliminary NO GROWTH AFTER 48 HOURS 06/08/20 11:40 Venous blood Blood Culture - Preliminary NO GROWTH AFTER 48 HOURS 06/07/20 16:20 Venous blood Blood Culture - Final Staphylococcus Aureus 06/07/20 16:20 Venous blood Blood Culture - Final Staphylococcus Aureus 06/07/20 02:05 Venous blood Blood Culture - Final Staphylococcus Aureus 06/07/20 02:05 Venous blood Blood Culture - Final Staphylococcus Aureus 06/07/20 02:05 Venous blood - Final Staphylococcus species Staphylococcus aureus detected 06/06/20 20:50 Nasopharyngeal Respiratory Panel (PCR) - Final No Organisms Detected 06/06/20 20:50 Nasopharyngeal Influenza-Like Illness (PCR) - Final No Organisms Detected 06/06/20 20:50 Nasopharyngeal - Final Exam Orientation: Alert, Oriented x3 and Cooperative HEENT: Mucous membr. moist/pink Lungs: normal lung sounds bilaterally Cardiovascular Exam: regular rate Abdomen: Normal bowel sounds and Soft Extremities: other (mild restriction of left shoulder movement due to pain ) Skin: Skin warm and dry, Mucus membranes moist Neurological: Normal speech and Strength at 5/5 X4 ext Psych/Mental Status: normal mood Assessment/Plan A P Free Text/Narrative :: 60 y/o male initially admitted on 06/06/2020 for chest pain. Patient had extensive anteroapical IA in 2013 requiring multiple stents, underwent ICD placement in 2014, and had a CVA in 2015. Labs and images reviewed. Pt c/o left shoulder pain. Pt stated that he fell down on his left shoulder few days ago at home Plan 1. Suspected endocarditis - IV Vanco discontinued as Staph aureus is Methicillin susceptible, switched to IV Cefazolin 2g IV Q8H (x4 weeks) - Patient needs DANIELE; can either do it out-patient once patient is discharged from the hospital or can transfer the patient to [place] for in-patient - Patient has an appointment on 06/13 at [facility] Cardiology in [place] - Blood cultures from 06/08, 06/09, 06/10 were negative; - Dr. Ferreira from [facility] Cardio logy saw the patient and recommended the following: - 4-6 weeks total of ABX - Daily blood cultures x 3 days - Repeat blood cultures the day after ABX are completed - If daily blood cultures are positive or positive after completing ABX, patient will be required to have ICD removed (he is scheduled to see soda jerker regarding ICD next week) - If blood cultures sterilize immediately, complete antibiotic course and reassess 2. Chest pain Resolved continue telemetry and monitoring TSH WNL, repeat troponin negative 3. Status post AICD pacemaker Will see soda jerker next week 4. Left shoulder pain and restriction of movement pt was requiring iv morphine during hospital stay will continue PO tylenol and Tramadol will f/u x ray and with ortho service 5. History of pulmonary embolism/DVT - Continue Eliquis 6. Status post Cactus filter placement 7. Atrial fibrillation - Continue amiodarone, Eliquis 8. Hyperlipidemia - Continue atorvastatin, fish oil 9. Hypertension - Continue carvedilol 10. GERD 11. Hazy density superior mesenteric artery and celiac axis by CT abdomen 12. Right liver hypodensity by CT abdomen - Abdominal US showed no cholelithiasis or biliary ductal dilatation, no renal calculus or hydronephrosis on the right, and no free intraperitoneal fluid 13. Type 2 DM uncontrolled metformin on hold continue Accu-checks and insulin sliding scale HgbA1C 9.9 (was 10.1 on 05/29/2020) started on Lantus 15 units will continue to monitor blood glucose and adjust Lantus dosing 14. Depression - Continue duloxetine, trazodone 15. BPH - Continue tamsulosin 16. Coronary artery disease Continue aspirin Plan: working to obtain DANIELE to determined endocarditis status. Coordinating with case management and Dr. Dumas on plan for out-patient treatment with IV antibiotics so patient can go for out-patient DANIELE. If this is not a viable option, will need to transfer the patient to [place] for in-patient DANIELE as the outcome of this dictates the course of treatment. Patient scheduled to see soda jerker at [facility] cardiology? for generator change of pacemaker on May () but this may need to be moved if the home IV care cannot be set up before then. DVT prophylaxis: continue Eliquis Dictated by: <Electronically signed by Christo Llamas MD> Christo Llamas MD 06/11/20 1612 Christo Llamas MD SIGNATURE DA Report Cosigners: D: ARYVI 06/11/20 1541 T: ARYVI 06/11/20 154 CC: Name Value Range Interpretation Code Description Data Evelin rce(s) Supporting Document(s) ID Date Data Source [id number] 06/11/2020 08:37:00 AM EST [facility] @06/11/20 0830: MANUAL DIFF added. RFLXG = DIFF. @06/11/20 0830: MANUAL DIFF added. RFLXG = DIFF. Name Value Range Interpretation Code Description Data Evelin rce(s) Supporting Document(s) Urea nitrogen [Mass/volume] in Serum or Plasma 11 mg/dL 9-23 N [facility] Sodium [Moles/volume] in Serum or Plasma 137 mmol/L 132-146 [facility] Potassium [Moles/volume] in Serum or Plasma 4.2 mmol/L 3.5-5.5 N [facility] Chloride [Moles/volume] in Serum or Plasma 102 mmol/L 99-109 [facility] Carbon dioxide, total [Moles/volume] in Serum or Plasma 28 mmol/L 20 -31 [facility] Anion gap in Serum or Plasma 11 mmol/L 8-16 [facility] Glucose [Mass/volume] in Serum or Plasma 236 mg/dL 74-106 Above high normal [facility] Creatinine 0.9 mg/dL 0.5-1.1 [facility] Glomerular filtration rate/1.73 sq M.pre dicted [Volume Rate/Area] in Serum or Plasma Greater Than 60 ABOVE 60 [facility] Alanine aminotransferase [Enzymatic acti vity/volume] in Serum or Plasma by With P-5'-P 33 U/L 10-49 [facility] ital Aspartate aminotransferase [Enzymatic ac tivity/volume] in Serum or Plasma by With P-5'-P 18 U/L 0-33 [facility] pital Alkaline phosphatase [Enzymatic activity/volume] in Serum or Plasma 107 U/L 45-129 [facility] Calcium [Mass/volume] in Serum or Plasma 9.0 mg/dL 8.5-10.1 [facility] Bilirubin.total [Mass/volume] in Serum or Plasma 0.6 mg/dL 0.3-1.2 N [facility] Albumin [Mass/volume] in Serum or Plasma by Bromocresol purple (BCP) dye binding method 2.5 g/dL 3.2-4.8 Below low normal [facility] Protein [Mass/volume] in Serum or Plasma 6.5 g/dL 5.7-8.2 N [facility] ID Date Data Source [id number] 06/11/2020 09:40:00 AM EST [facility] @06/11/20 0830: MANUAL DIFF added. RFLXG = DIFF. @06/11/20 0830: MANUAL DIFF added. RFLXG = DIFF. Name Value Range Interpretation Code Description Data Evelin rce(s) Supporting Document(s) Leukocytes [#/volume] in Blood by Automated count 9.5 10*3/uL 4.45-10 .71 N [facility] Erythrocytes [#/volume] in Blood by Automated count 4.16 10*6/uL 4.3-6.1 Below low normal [facility] Hemoglobin [Moles/volume] in Blood 11.9 g/dL 13-18 Below low no rmal [facility] Hematocrit [Volume Fraction] of Blood by Automated count 36.3 % 42-52 Below low normal [facility] Erythrocyte mean corpuscular volume [Ent itic volume] in Cord blood by Automated count 87.3 fL 80-96 N [facility] Erythrocyte mean corpuscular hemoglobin [Entitic mass] by Automated count 28.6 pg 27-31 N [facility] Erythrocyte mean corpuscular hemoglobin concentration [Mass/volume] in Cord blood 32.8 g/dL 33-37 Below low normal [facility] Erythrocyte distribution width [Entitic volume] by Automated count 12 % 11-15 N [facility] Platelets [#/volume] in Blood by Automated count 370 10*3/uL 130-472 N [facility] Platelet mean volume [Entitic volume] in Blood 9.1 fL 9.1-13.1 N [facility] Neutrophils/100 leukocytes in Blood by Automated count 65.4 % 41- 77 N [facility] Neutrophils [#/volume] in Blood by Automated count 6.2 U 1.7-7.6 N [facility] Lymphocytes/100 leukocytes in Blood by Automated count 21.6 % 14- 46 N [facility] Lymphocytes [#/volume] in Blood by Automated count 2.1 U 0.6-4.6 N [facility] Monocytes/100 leukocytes in Blood by Automated count 6.5 % 4-12 N [facility] Monocytes [#/volume] in Blood by Automated count 0.6 U 0.2-1.2 N [facility] Eosinophils/100 leukocytes in Blood by Automated count 1.6 % 0-7 N [facility] Eosinophils [#/volume] in Blood by Automated count 0.2 U 0.0-0.5 N [facility] Basophils/100 leukocytes in Blood by Automated count 0.7 % 0.4-1 .3 N [facility] Basophils [#/volume] in Blood by Automated count 0.1 U 0.0-0.2 N [facility] NUCLEATED RED BLOOD CELL 0 % [facility] NUCLEATED RED BLOOD CELL# 0 U [facility] Immature granulocytes [Presence] in Blood by Automated count 0-2 Above high normal [facility] Immature granulocytes [#/volume] in Blood by Automated count 0.4 U 0-0.1 Above high normal [facility] Manual Differential panel - Blood Manual Diff Added [facility] ID Date Data Source [id number] 06/11/2020 09:40:00 AM EST [facility] @06/11/20 0830: MANUAL DIFF added. RFLXG = DIFF. @06/11/20 0830: MANUAL DIFF added. RFLXG = DIFF. Name Value Range Interpretation Code Description Data Evelin rce(s) Supporting Document(s) Cells counted [#] 100 [facility] Neutrophils [#/volume] in Blood by Manual count 57 % 41-77 N [facility] Band form neutrophils [#/volume] in Blood by Manual count 3 % 0-5 N [facility] Lymphocytes [#/volume] in Blood by Manual count 23 % 14-46 N [facility] Monocytes [#/volume] in Blood by Manual count 8 % 4-12 N [facility] Eosinophils [#/volume] in Blood by Manual count 2 % 0-7 N [facility] Mononuclear cells atypical [#/volume] in Blood by Manual count 7 0-5 Above high normal [facility] Platelets [#/volume] in Blood by Estimate APPEARS NORMAL NORMAL [facility] Morphology [Interpretation] in Blood Narrative APPEARS NORMAL NORMAL [facility] ID Date Data Source [id number] 06/10/2020 09:33:00 AM EST [facility] Name: JAGJIT IBARRA : 1960 Age: 60 MR#: [id number] Admit Date: 06/08/20 Provider: Christo Llamas MD Room #: 292 Consulting Provider: [facility]; Minh Dumas MD ictation Date: 06/10/20 Progress Note Subjective-ROS Date of service Date of service:: 06/10/20 Review of Systems Attestation/Length Of Stay: 06/08/20 13:50 Admit to Inpatient, Acute [STATUS] Routine Location: [facility] Primary diagnosis: Chest pain Isolation: Droplet Status: Inpatient Admission Anticipated Length of stay:: 3-4 Midnights Vital Signs and I O Vitals and I O: Vital Signs last 12 hours Temp Pulse Resp BP Pulse Ox 06/10/20 09:19 75 177/89 06/10/20 09:18 75 177/89 06/10/20 08:00 96.2 F L 75 18 177/89 95 06/10/20 04:00 97.0 F L 77 20 129/68 95 06/10/20 00:00 98.2 F 78 18 135/72 96 Intake Output Last 24 Hours 06/08/20 06/09/20 06/10/20 23:59 23:59 23:59 Intake Total 2750 / 2750 2740 / 2740 Output Total 1650 / 1650 4175 / 4175 1000 / 1000 Balance 1100 / 1100 -1435 / -1435 -1000 / -1000 Results Results: 06/10/20 07:21 Laborato ry Results Last 24 hours 06/09/20 11:48: POC Glucose 300 H 06/09/20 16:26: POC Glucose 258 H 06/09/20 20:02: POC Glucose 259 H 06/09/20 21:30: POC Glucose 259 H 06/10/20 07:21: Add Manual Diff Manual diff added 06/10/20 07:21: Sodium 136, Potassium 4.1, Chloride 102, Carbon Dioxide 27, Anion Gap 11, BUN 11, Creatinine 1.0, GFR Calculation Greater than 60, Glucose 232 H, Calcium 8.7, Total Bilirubin 0.6, AST 21, ALT 42, Alkaline Phosphatase 114, Serum Total Protein 6.5, Albumin 2.6 L 06/10/20 07:45: POC Glucose 253 H Microbiology 06/09/20 06:00 Venous blood Blood Culture - Preliminary NO GROWTH AFTER 24 HOURS 06/09/20 06:00 Venous blood Blood Culture - Preliminary NO GROWTH AFTER 24 HOURS 06/08/20 11:40 Venous blood Blood Culture - Preliminary NO GROWTH AFTER 24 HOURS 06/08/20 11:40 Venous blood Blood Culture - Preliminary NO GROWTH AFTER 24 HOURS 06/07/20 16:20 Venous blood Blood Culture - Final Staphylococcus Aureus 06/07/20 16:20 Venous blood Blood Culture - Final Staphylococcus Aureus 06/07/20 02:05 Venous blood Blood Culture - Final Staphylococcus Aureus 06/07/20 02:05 Venous blood Blood Culture - Final Staphylococcus Aureus 06/07/20 02:05 Venous blood - Final Staphylococcus species Staphylococcus aureus detected 06/06/20 20:50 Nasopharyngeal Respiratory Panel (PCR) - Final No Organisms Detected 06/06/20 20:50 Nasopharyngeal Influenza-Like Illness (PCR) - Final No Organisms Detected 06/06/20 20:50 Nasopharyngeal - Final Exam Orientation: Alert, Oriented x3 and Cooperative HEENT: Mucous membr. moist/pink Lungs: normal lung sounds bilaterally Cardiovascular Exam: regular rate and normal rhythm Abdomen: Normal bowel sounds and Soft Extremities: normal inspection Skin: Skin warm and dry, Mucus membranes moist Neurological: Normal speech and Strength at 5/5 X4 ext Psych/Mental Status: normal mood Assessment/Plan A P Free Text/Narrative :: 60 y/o male initially admitted on 06/06/2020 for chest pain. Patient had extensive anteroapical IA in 2013 requiring multiple stents, underwent ICD placement in 2014, and had a CVA in 2016. Labs and images reviewed. Pt stated that he is feeling fine. No new complaint Plan 1. Suspected endocarditis - IV Vanco discontinued as Staph aureus is Methicillin susceptible, switched to IV Cefazolin 2g IV Q8H (x4 weeks) - Patient needs DANIELE; can either do it out-patient once patient is discharged from the hospital or can transfer the patient to [place] for in-patient - Patient has an appointment on 06/13 at [facility] Cardiology in [place] - Blood cultures from 06/08 were negative; blood cultures for 06/09 pending - Dr. Ferreira from [facility] Cardiology saw the patient and recommended the following: - 4-6 weeks total of ABX - Daily blood cultures x 3 days - Repeat blood cultures the day after ABX are completed - If daily blood cultures are positive or positive after completing ABX, patient will be required to have ICD removed (he is scheduled to see soda jerker regarding ICD next week) - If blood cultures sterilize immediately, complete antibiotic course and reassess 2. Chest pain Resolved continue telemetry and monitoring TSH WNL, repeat troponin negative 3. Status post AICD pacemaker - Will see soda jerker next week 4. Coronary artery disease - Continue aspirin 5. History of pulmonary embolism/DVT - Continue Eliquis 6. Status post Cactus filter placement 7. Atrial fibrillation - Continue amiodarone, Eliquis 8. Hyperlipidemia - Continue atorvastatin, fish oil 9. Hypertension - Continue carvedilol 10. GERD 11. Hazy density superior mesenteric artery and celiac axis by CT abdomen 12. Right liver hypodensity by CT abdomen - Abdominal US showed no cholelithiasis or biliary ductal dilatation, no renal calculus or hydronephrosis on the right, and no free intraperitoneal fluid 13. Type 2 DM uncontrolled metformin; continue Accu-checks and insulin sliding scale HgbA1C 9.9 (was 10.1 on 05/29/2020) 14. Depression - Continue duloxetine, trazodone 15. BPH - Continue tamsulosin Plan: working to obtain DANIELE to determined endocarditis status. Coordinating with case management and Dr. Dumas on plan for out-patient treatment with IV antibiotics so patient can go for out-patient DANIELE. If this is not a viable option, will need to transfer the patient to [place] for in-patient DANIELE as the outcome of this dictates the course of treatment. Patient scheduled to see soda jerker at [facility] cardiology? for generator change of pacemaker on May () but this may need to be moved if the home IV care cannot be set up before then. DVT prophylaxis: continue Eliquis Care plan: Plan of care discussed with patient and or family, Patient encouraged to ask questions about plan, Patient agrees with plan of care and Discharge plan and instructions discussed with patient and or family Dictated by: <Electronically signed by Christo Llamas MD> Christo Llamas MD 06/10/20 1621 Christo Llamas MD SIGNATURE DA Report Cosigners: D: ARYVI 06/10/20932 T: ARYVI 06/10/20932 CC: Name Value Range Interpretation Code Description Data Evelin rce(s) Supporting Document(s) ID Date Data Source [id number] 06/15/2020 07:45:00 AM [facility] Name Value Range Interpretation Code Description Data Evelin rce(s) Supporting Document(s) Bacteria identified in Blood by Culture [facility] NO GROWTH AFTER 5 DAYS ID Date Data Source [id number] 06/10/2020 08:43:00 AM [facility] @06/10/20 0811: MANUAL DIFF added. RFLXG = DIFF. @06/10/20 0811: MANUAL DIFF added. RFLXG = DIFF. Name Value Range Interpretation Code Description Data Evelin rce(s) Supporting Document(s) Urea nitrogen [Mass/volume] in Serum or Plasma 11 mg/dL 9-23 N [facility] Sodium [Moles/volume] in Serum or Plasma 136 mmol/L 132-146 N [facility] Potassium [Moles/volume] in Serum or Plasma 4.1 mmol/L 3.5-5.5 [facility] Chloride [Moles/volume] in Serum or Plasma 102 mmol/L 99-109 [facility] Carbon dioxide, total [Moles/volume] in Serum or Plasma 27 mmol/L 20 -31 N [facility] Anion gap in Serum or Plasma 11 mmol/L 8-16 N [facility] Glucose [Mass/volume] in Serum or Plasma 232 mg/dL 74-106 Above high normal [facility] Creatinine 1.0 mg/dL 0.5-1.1 [facility] Glomerular filtration rate/1.73 sq M.pre dicted [Volume Rate/Area] in Serum or Plasma Greater Than 60 ABOVE 60 [facility] Alanine aminotransferase [Enzymatic acti vity/volume] in Serum or Plasma by With P-5'-P 42 U/L 10-[address] [facility] ital Aspartate aminotransferase [Enzymatic ac tivity/volume] in Serum or Plasma by With P-5'-P 21 U/L 0-33 N [facility] pital Alkaline phosphatase [Enzymatic activity/volume] in Serum or Plasma 114 U/L 45-129 N [facility] Calcium [Mass/volume] in Serum or Plasma 8.7 mg/dL 8.5-10.1 N [facility] Bilirubin.total [Mass/volume] in Serum or Plasma 0.6 mg/dL 0.3-1.2 [facility] Albumin [Mass/volume] in Serum or Plasma by Bromocresol purple (BCP) dye binding method 2.6 g/dL 3.2-4.8 Below low normal [facility] Protein [Mass/volume] in Serum or Plasma 6.5 g/dL 5.7-8.2 [facility] ID Date Data Source [id number] 06/10/2020 09:35:00 AM EST [facility] @06/10/20 0811: MANUAL DIFF added. RFLXG = DIFF. @06/10/20 0811: MANUAL DIFF added. RFLXG = DIFF. Name Value Range Interpretation Code Description Data Evelin rce(s) Supporting Document(s) Leukocytes [#/volume] in Blood by Automated count 9.2 10*3/uL 4.45-10 .71 [facility] Erythrocytes [#/volume] in Blood by Automated count 4.21 10*6/uL 4.3-6.1 Below low normal [facility] Hemoglobin [Moles/volume] in Blood 12.2 g/dL 13-18 Below low no rmal [facility] Hematocrit [Volume Fraction] of Blood by Automated count 37.0 % 42-52 Below low normal [facility] Erythrocyte mean corpuscular volume [Ent itic volume] in Cord blood by Automated count 87.9 fL 80-[address] [facility] ital Erythrocyte mean corpuscular hemoglobin [Entitic mass] by Automated count 29.0 pg 27-31 N [facility] l Erythrocyte mean corpuscular hemoglobin concentration [Mass/volume] in Cord blood 33.0 g/dL 33-[address] [facility] ital Erythrocyte distribution width [Entitic volume] by Automated count 12 % 11-15 N [facility] Platelets [#/volume] in Blood by Automated count 347 10*3/uL 130-472 N [facility] Platelet mean volume [Entitic volume] in Blood 9.2 fL 9.1-13.1 N [facility] Neutrophils/100 leukocytes in Blood by Automated count 66.8 % 41- 77 N [facility] Neutrophils [#/volume] in Blood by Automated count 6.1 U 1.7-7.6 N [facility] Lymphocytes/100 leukocytes in Blood by Automated count 18.4 % 14- 46 N [facility] Lymphocytes [#/volume] in Blood by Automated count 1.7 U 0.6-4.6 N [facility] Monocytes/100 leukocytes in Blood by Automated count 8.4 % 4-12 N [facility] Monocytes [#/volume] in Blood by Automated count 0.8 U 0.2-1.2 N [facility] Eosinophils/100 leukocytes in Blood by Automated count 1.8 % 0-7 N [facility] Eosinophils [#/volume] in Blood by Automated count 0.2 U 0.0-0.5 N [facility] Basophils/100 leukocytes in Blood by Automated count 0.7 % 0.4-1 .3 N [facility] Basophils [#/volume] in Blood by Automated count 0.1 U 0.0-0.2 [facility] NUCLEATED RED BLOOD CELL 0 % [facility] NUCLEATED RED BLOOD CELL# 0 U [facility] Immature granulocytes [Presence] in Blood by Automated count 0-2 Above high normal [facility] Immature granulocytes [#/volume] in Blood by Automated count 0.4 U 0-0.1 Above high normal [facility] Manual Differential panel - Blood Manual Diff Added [facility] ID Date Data Source [id number] 06/10/2020 09:35:00 AM EST [facility] @06/10/20 0811: MANUAL DIFF added. RFLXG = DIFF. @06/10/20 0811: MANUAL DIFF added. RFLXG = DIFF. Name Value Range Interpretation Code Description Data Evelin rce(s) Supporting Document(s) Cells counted [#] 100 [facility] Neutrophils [#/volume] in Blood by Manual count 62 % 41-77 N [facility] Band form neutrophils [#/volume] in Blood by Manual count 3 % 0-5 N [facility] Lymphocytes [#/volume] in Blood by Manual count 25 % 14-46 N [facility] Monocytes [#/volume] in Blood by Manual count 6 % 4-12 N [facility] Metamyelocytes [#/volume] in Blood by Manual count 1 % 0-0 Above high normal [facility] Mononuclear cells atypical [#/volume] in Blood by Manual count 3 0-5 N [facility] Platelets [#/volume] in Blood by Estimate APPEARS NORMAL NORMAL [facility] Morphology [Interpretation] in Blood Narrative APPEARS NORMAL NORMAL [facility] ID Date Data Source [id number] 06/09/2020 03:07:00 PM EST [facility] Name: JAGJIT IBARRA : 1960 Age: 60 MR#: [id number] Admit Date: 06/08/20 Provider: Unique Ford Room #: 292 Consulting Provider: [facility]; Minh Dumas MD ictation Date: 06/09/20 Progress Note Subjective-ROS Date of service Date of service:: 06/09/20 Review of Systems ROS (Free Text/Narrative):: Patient c/o back and shoulder pain from lying in his hospital bed. He had shoulder surgery in the past for a rotator cuff injury and c/o increased pain after falling (which occurred prior to admission to the hospital). He denies chest pain, SOB, dizziness, headache,abdominal pain, nausea, vomiting, diarrhea, or edema. General: Reports No Symptoms/Complaints; Denies Fever, Chills and Fatigue HEENT: Reports No Symptoms Complaints; Denies Headaches and Visual Changes Endocrine: Reports No Symptoms/Complaints; Denies Excessive sweating, Loss of appetite, Intolerance to cold and Intolerance to heat Cardiovascular: Reports No Symptoms/Complaints; Denies Chest Pain, Palpitations and Orthopnea Pulmonary: Reports No Symptoms/Complaints; Denies Dyspnea and Cough Gastrointestinal: Reports No Symptoms/Complaints; Denies nausea, vomiting, abdominal pain and diarrhea Genitourinary: Reports No Symptoms/Complaints; Denies Dysuria, Frequency and Hematuria Musculoskeletal: Reports Shoulder Pain (Left) and Back Pain (Lower); Denies Muscle Pain and Joint Pain Neurological: Reports No Symptoms/Complaints; Denies Numbness, Incoordination and Change in speech Psych: Reports No Symptoms/Complaints; Denies anxiety, depression, suicidal thoughts and homicidal thoughts Hematological/Lymphatic: Reports No Symptoms/Complaints; Denies easy bleeding, easy bruising and lympathadenopathy Allergic/Immunologic: Reports No Symptoms/Complaints; Denies rash and hives Attestation/Length Of Stay: 06/08/20 13:50 Admit to Inpatient, Acute [STATUS] Routine Location: [facility] Primary diagnosis: Chest pain Isolation: Droplet Status: Inpatient Admission Anticipated Length of stay:: 3-4 Midnights Vital Signs and I O Vitals and I O: Vital Signs last 12 hours Temp Pulse Resp BP Pulse Ox 06/09/20 10:08 78 137/82 06/09/20 09:55 82 137/82 06/09/20 07:22 70 18 97 06/09/20 06:15 78 06/09/20 05:02 97.8 F 72 20 138/80 95 Intake Output Last 24 Hours 06/07/20 06/08/20 06/09/20 23:59 23:59 23:59 Intake Total 2840 / 2840 2750 / 2750 960 / 960 Output Total 1000 / 1000 1650 / 1650 2375 / 2375 Balance 1840 / 1840 1100 / 1100 -1415 / -1415 Results Results: 06/09/20 06:00 06/09/20 06:00 Laboratory Results Last 24 hours 06/08/20 14:52: Vancomycin Trough 10.5 06/08/20 16:54: POC Glucose 258 H 06/08/20 20:17: POC Glucose 315 H 06/09/20 06:00: WBC 10.7, RBC 3.94 L, Hgb 11.5 L, Hct 33.8 L, MCV 85.8 D, MCH 29.2, MCHC 34.0, RDW 12, Plt Count 275 D, MPV 9.4, Immature Gran % (Auto) 1.9, Neut % (Auto) 69.6, Lymph % (Auto) 17.9, Mccone % (Auto) 8.6, Eos % (Auto) 1.6, Baso % (Auto) 0.4, Lymph # (Auto) 1.9, Abs Immat Gran (auto) 0.2 H, Add Manual Diff No, Absolute Neutrophils 7.4, Monocytes # 0.9, Absolute Eosinophils 0.2, Absolute Basophils 0.0 06/09/20 06:00: Sodium 136, Potassium 3.4 L, Chloride 103, Carbon Dioxide 25, Anion Gap 11, BUN 9, Creatinine 1.0, GFR Calculation Greater than 60, Glucose 247 H, Calcium 8.7, Total Bilirubin 0.7, AST 22, ALT 46, Alkaline Phosphatase 109, Serum Total Protein 6.6, Albumin 2.5 L 06/09/20 06:00: Magnesium 1.6 06/09/20 07:36: POC Glucose 230 H 06/09/20 11:48: POC Glucose 300 H Microbiology 06/08/20 11:40 Venous blood Blood Culture - Preliminary NO GROWTH AFTER 24 HOURS 06/08/20 11:40 Venous blood Blood Culture - Preliminary NO GROWTH AFTER 24 HOURS 06/07/20 16:20 Venous blood Blood Culture - Final Staphylococcus Aureus 06/07/20 16:20 Venous blood Blood Culture - Final Staphylococcus Aureus 06/07/20 02:05 Venous blood Blood Culture - Final Staphylococcus Aureus 06/07/20 02:05 Venous blood Blood Culture - Final Staphylococcus Aureus 06/07/20 02:05 Venous blood - Final Staphylococcus species Staphylococcus aureus detected 06/06/20 20:50 Nasopharyngeal Respiratory Panel (PCR) - Final No Organisms Detected 06/06/20 20:50 Nasopharyngeal Influenza-Like Illness (PCR) - Final No Organisms Detected 06/06/20 20:50 Nasopharyngeal - Final Exam Orientation: Alert, Oriented x3, Cooperative and No acute distress HEENT: Atraumatic, PERRLA and Mucous membr. moist/pink Lungs: normal lung sounds bilaterally; negative for respiratory distress, wheezes, rales and rhonchi Cardiovascular Exam: regular rate and normal rhythm Abdomen: Normal bowel sounds and Soft; negative for Tenderness and Hepatospenomegaly Extremities: normal inspection and capillary refill brisk; negative for pedal edema and calf tenderness Skin: Skin warm and dry, Mucus membranes moist Neurological: Normal speech, Normal tone and Sensation intact Psych/Mental Status: normal affect and normal mood Assessment/Plan A P Free Text/Narrative :: 60 y/o male initially admitted on 06/06/2020 for observation for chest pain. Patient had extensive anteroapical IA in 2013 requiring multiple stents, underwent ICD placement in 2015, and had a CVA in 2016. Labs and images reviewed. 1. Chest pain - Resolved; continue telemetry and monitoring - TSH WNL, repeat troponins negative 2. Suspected endocarditis - IV Vanco discontinued as Staph aureus is Methicillin susceptible, switched to IV Cefazolin 2g IV Q8H (x4 weeks) - Patient needs DANIELE; can either do it out- patient once patient is discharged from the hospital or can transfer the patient to [place] for in-patient - Patient has an appointment on 06/13 at [facility] Cardiology in [place] - Blood cultures from 06/08 were negative; blood cultures for 06/09 pending [facility] [facility] saw the patient yesterday morning and recommended the following: - 4-6 weeks total of ABX - Daily blood cultures x 3 days - Repeat blood cultures the day after ABX are completed - If daily blood cultures are positive or positive after completing ABX, patient will be required to have ICD removed (he is scheduled to see soda jerker regarding ICD next week) - If blood cultures sterilize immediately, complete antibiotic course and reassess 3. Status post AICD pacemaker - Will see soda jerker next week 4. Coronary artery disease - Continue aspirin 5. History of pulmonary embolism/DVT - Continue Eliquis 6. Status post Cactus filter placement 7. Atrial fibrillation - Continue amiodarone, Eliquis 8. Hyperlipidemia - Continue atorvastatin, fish oil 9. Hypertension - Continue carvedilol 10. GERD 11. Hazy density superior mesenteric artery and celiac axis by CT abdomen 12. Right liver hypodensity by CT abdomen - Abdominal US showed no cholelithiasis or biliary ductal dilatation, no renal calculus or hydronephrosis on the right, and no free intraperitoneal fluid 13. Type 2 DM - Hold metformin; continue Accu-checks and insulin sliding scale - HgbA1C 9.9 (was 10.1 on 05/29/2020) 14. Depression - Continue duloxetine, trazodone 15. BPH - Continue tamsulosin Plan: Continue IV antibiotics (Cefazolin). Per ID, working to obtain DANIELE to determined endocarditis status. Coordinating with case management and Dr. Dumas on plan for out-patient treatment with IV antibiotics so patient can go for out-patient DANIELE. If this is not a viable option, will need to transfer the patient to [place] for in-patient DANIELE as the outcome of this dictates the course of treatment. Patient scheduled to see soda jerker at [facility] cardiology? for generator change of pacemaker on May () but this may need to be moved if the home IV care cannot be set up before then. DVT prophylaxis: continue Eliquis Code status: full code Care plan: Plan of care discussed with patient and or family, Patient encouraged to ask questions about plan and Patient agrees with plan of care Dictated by: <Electronically signed by Unique CLEMENT> Unique CLEMENT 06/09/20 1640 Unique Ford SIGNATURE DA Report Cosigners: <<Signature on File>> Christo Llamas MD 06/09/201722 <Electronically signed by Christo Llamas MD> Christo Llamas MD 06/09/20 172 D: [facility] 06/09/20 1507 T: [facility] 06/09/20 1507 CC: Name Value Range Interpretation Code Description Data Evelin rce(s) Supporting Document(s) ID Date Data Source [id number] 06/09/2020 09:48:00 AM EST [facility] ([facility] C ardiology) Name Value Range Interpretation Code Description Data Evelin rce(s) Supporting Document(s) .Scanned Labs Laboratory test result MED [facility] ([facility] Cardiology) ID Date Data Source [id number] 06/14/2020 06:05:00 AM [facility] Name Value Range Interpretation Code Description Data Evelin rce(s) Supporting Document(s) Bacteria identified in Blood by Culture [facility] NO GROWTH AFTER 5 DAYS ID Date Data Source [id number] 06/09/2020 06:16:00 AM [facility] Name Value Range Interpretation Code Description Data Evelin rce(s) Supporting Document(s) Leukocytes [#/volume] in Blood by Automated count 10.7 10*3/uL 4.45-1 0.71 N [facility] Erythrocytes [#/volume] in Blood by Automated count 3.94 10*6/uL 4.3-6.1 Below low normal [facility] Hemoglobin [Moles/volume] in Blood 11.5 g/dL 13-18 Below low no rmal [facility] Hematocrit [Volume Fraction] of Blood by Automated count 33.8 % 42-52 Below low normal [facility] Erythrocyte mean corpuscular volume [Ent itic volume] in Cord blood by Automated count 85.8 fL 80-96 No range defined, or normal ranges don't apply [facility] Repeated by: Chacha Castillo 06/09/20 061 5.Result Confirmation: 85.8 fl Erythrocyte mean corpuscular hemoglobin [Entitic mass] by Automated count 29.2 pg 27-31 N [facility] l Erythrocyte mean corpuscular hemoglobin concentration [Mass/volume] in Cord blood 34.0 g/dL 33-37 N [facility] Erythrocyte distribution width [Entitic volume] by Automated count 12 % 11-15 N [facility] Platelets [#/volume] in Blood by Automated count 275 10*3/uL 130-472 No range defined, or normal ranges don't apply [facility] Repeated by: Chacha Castillo 06/09/20 061 5.Result Confirmation: 264 10e3/ul Platelet mean volume [Entitic volume] in Blood 9.4 fL 9.1-13.1 N [facility] Neutrophils/100 leukocytes in Blood by Automated count 69.6 % 41- 77 N [facility] Neutrophils [#/volume] in Blood by Automated count 7.4 U 1.7-7.6 N [facility] Lymphocytes/100 leukocytes in Blood by Automated count 17.9 % 14- 46 N [facility] Lymphocytes [#/volume] in Blood by Automated count 1.9 U 0.6-4.6 N [facility] Monocytes/100 leukocytes in Blood by Automated count 8.6 % 4-12 N [facility] Monocytes [#/volume] in Blood by Automated count 0.9 U 0.2-1.2 N [facility] Eosinophils/100 leukocytes in Blood by Automated count 1.6 % 0-7 N [facility] Eosinophils [#/volume] in Blood by Automated count 0.2 U 0.0-0.5 N [facility] Basophils/100 leukocytes in Blood by Automated count 0.4 % 0.4-1 .3 N [facility] Basophils [#/volume] in Blood by Automated count 0.0 U 0.0-0.2 N [facility] NUCLEATED RED BLOOD CELL 0 % [facility] NUCLEATED RED BLOOD CELL# 0 U [facility] Immature granulocytes [Presence] in Blood by Automated count 0-2 N [facility] Immature granulocytes [#/volume] in Blood by Automated count 0.2 U 0-0.1 Above high normal [facility] Manual Differential panel - Blood NO [facility] ID Date Data Source [id number] 06/09/2020 06:27:00 AM EST [facility] Name Value Range Interpretation Code Description Data Evelin rce(s) Supporting Document(s) Urea nitrogen [Mass/volume] in Serum or Plasma 9 mg/dL 9-23 [facility] Sodium [Moles/volume] in Serum or Plasma 136 mmol/L 132-146 [facility] Potassium [Moles/volume] in Serum or Plasma 3.4 mmol/L 3.5-5.5 Below low normal [facility] Chloride [Moles/volume] in Serum or Plasma 103 mmol/L 99-109 [facility] Carbon dioxide, total [Moles/volume] in Serum or Plasma 25 mmol/L 20 -31 [facility] Anion gap in Serum or Plasma 11 mmol/L 8-16 [facility] Glucose [Mass/volume] in Serum or Plasma 247 mg/dL 74-106 Above high normal [facility] Creatinine 1.0 mg/dL 0.5-1.1 [facility] Glomerular filtration rate/1.73 sq M.pre dicted [Volume Rate/Area] in Serum or Plasma Greater Than 60 ABOVE 60 [facility] Alanine aminotransferase [Enzymatic acti vity/volume] in Serum or Plasma by With P-5'-P 46 U/L 10-[address] [facility] ital Aspartate aminotransferase [Enzymatic ac tivity/volume] in Serum or Plasma by With P-5'-P 22 U/L 0-33 [facility] pital Alkaline phosphatase [Enzymatic activity/volume] in Serum or Plasma 109 U/L 45-129 [facility] Calcium [Mass/volume] in Serum or Plasma 8.7 mg/dL 8.5-10.1 [facility] Bilirubin.total [Mass/volume] in Serum or Plasma 0.7 mg/dL 0.3-1.2 [facility] Albumin [Mass/volume] in Serum or Plasma by Bromocresol purple (BCP) dye binding method 2.5 g/dL 3.2-4.8 Below low normal [facility] Protein [Mass/volume] in Serum or Plasma 6.6 g/dL 5.7-8.2 [facility] ID Date Data Source [id number] 06/09/2020 06:20:00 AM [facility] Name Value Range Interpretation Code Description Data Evelin rce(s) Supporting Document(s) Magnesium [Mass/volume] in Serum or Plasma 1.6 mg/dL 1.3-2.7 [facility] ID Date Data Source [id number] 06/08/2020 10:36:00 PM [facility] Name: JAGJIT IBARRA : 1960 Age: 60 MR#: [id number] Admit Date: 06/08/20 Provider: Minh Dumas MD Room #: 292 Consulting Provider: Christo Llamas MD; Unique Ford; Whit Ferreira M.D.; Nicolle Bryan Dictation Date: 06/08/20 Consultation HPI Date of Service Date of service:: 06/08/20 Allergies/Home Meds Allergies Allergy/AdvReac Type Severity Reaction Status Date / Time cyclobenzaprine AdvReac Mild Anxiety Verified 07/10/20 13:15 [From Flexeril] nifedipine [From Procardia] AdvReac Mild Taste Verified 07/10/20 13:15 Changes prochlorperazine AdvReac Mild Anxiety Verified 07/10/20 13:15 [From Compazine] Home Medications Medication Instructions Recorded Confirmed Last Taken Type aspirin 81 mg PO DAILY 07/06/19 07/05/20 07/05/20 History nitroglycerin 0.4 mg SUBLINGUAL Q5MIN PRN 07/06/19 07/05/20 05/29/20 13:30 His tory o.4 mg aripiprazole 5 mg PO DAILY 0207/05/20 07/05/20 History carvedilol 25 mg PO BID 07/07/19 07/05/20 07/05/20 History cholecalciferol (vitamin D3) 25 mcg PO DAILY 07/07/19 07/05/20 07/05/20 History folic acid 1 mg PO DAILY 07/07/19 07/05/20 07/05/20 History gabapentin 600 mg PO TID 07/07/19 07/05/20 07/05/20 History metformin 1,000 mg PO BID 07/07/19 07/05/20 07/05/20 History tamsulosin 0.4 mg PO DAILY 07/07/19 07/05/20 07/05/20 History amiodarone 200 mg PO BID #60 tab 05/31/20 07/05/20 07/05/20 Rx cyanocobalamin (vitamin B-12) 500 mcg PO DAILY 05/31/20 07/05/20 07/05/20 History omega-3 fatty acids-vitamin E 1,000 cap PO DAILY 05/31/20 07/05/20 07/05/20 History trazodone 100 mg PO HS 05/31/20 07/05/20 07/04/20 History pen needle, diabetic [BD #10 ea 06/01/20 07/05/20 Unknown Rx Ultra-Fine Orig Pen Needle] apixaban 5 mg tablet 5 mg PO .QD tab 07/10/20 Unknown History atorvastatin 40 mg tablet 40 mg PO DAILY tab 07/10/20 Unknown History famotidine 20 mg tablet 20 mg PO BID 07/10/20 Unknown History hydralazine 10 mg tablet 10 mg PO TID 07/10/20 Unknown History insulin glargine 100 unit/mL (3 unit SUBCUT 07/10/20 Unknown History mL) subcutaneous pen insulin lispro 100 unit/mL unit SUBCUT 07/10/20 Unknown History subcutaneous pen lisinopril 40 mg tablet 40 mg PO QDAY 07/10/20 Unknown History Vital Signs and I O Vitals and I O: Vital Signs last 12 hours Temp Pulse Resp BP Pulse Ox 06/08/20 12:10 97.2 F L 70 20 142/83 95 Intake Output Last 24 Hours 06/06/20 06/07/20 06/08/20 23:59 23:59 23:59 Intake Total 2840 / 2840 1780 / 2500 Output Total 1000 / 1000 1450 / 1650 Balance 1840 / 1840 330 / 850 Current Weight 282 lb Results Results: 06/08/20 05:30 06/08/20 05:30 Laboratory Results Last 24 hours 06/07/20 20:29: POC Glucose 261 H 06/08/20 05:30: WBC 8.0, RBC 4.11 L, Hgb 11.9 L, Hct 38.0 L, MCV 92.5, MCH 29.0, MCHC 31.3 L, RDW 13, Plt Count 173, MPV 10.5, Immature Gran % (Auto) 1.1, Neut % (Auto) 69.7, Lymph % (Auto) 15.6, Mccone % (Auto) 11.0, Eos % (Auto) 1.7, Baso % (Auto) 0.9, Lymph # (Auto) 1.3, Abs Immat Gran (auto) 0.1, Add Manual Diff No, Absolute Neutrophils 5.6, Monocytes # 0.9, Absolute Eosinophils 0.1, Absolute Basophils 0.1 06/08/20 05:30: Sodium 138, Potassium 3.6, Chloride 105, Carbon Dioxide 25, Anion Gap 12, BUN 12, Creatinine 0.9, GFR Calculation Greater than 60, Glucose 253 H, Calcium 8.4 L, Total Bilirubin 0.8, AST 22, ALT 47, Alkaline Phosphatase 112, Serum Total Protein 6.0, Albumin 2.5 L 06/08/20 05:30: Hemoglobin A1c 9.9 H, Estim Average Glucose 237 06/08/20 05:30: Vancomycin Peak 26.5 06/08/20 07:54: POC Glucose 266 H 06/08/20 11:40: Lactic Acid 1.3 06/08/20 12:11: POC Glucose 282 H Microbiology 06/07/20 16:20 Venous blood Blood Culture - Preliminary 06/07/20 16:20 Venous blood Blood Culture - Preliminary Gram Positive Cocci 06/07/20 02:05 Venous blood Blood Culture - Preliminary 06/07/20 02:05 Venous blood Blood Culture - Preliminary 06/07/20 02:05 Venous blood - Final Staphylococcus species Staphylococcus aureus detected 06/06/20 20:50 Nasopharyngeal Respiratory Panel (PCR) - Final No Organisms Detected 06/06/20 20:50 Nasopharyngeal Influenza-Like Illness (PCR) - Final No Organisms Detected 06/06/20 20:50 Nasopharyngeal - Final Assessment/Plan A P Free Text/Narrative :: Consult requested by RACQUEL Ford Reason for consult bacteremia 60-year-old man with past medical history of diabetes, PE and CVA who told me that he came to the hospital because he was experiencing 8 out of 10 sharp intermittent chest pain that started 06/06/2020. He said that he did not have any fever or chills associated with it but did have a cough. He said that the pain in his chest stopped on 06/07/2020. He tells me that he felt a similarpain when he had his heart attack. He also reports having multiple cuts and bruises on his arms from his cat. All other systems reviewed and found to be negative. 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 Physical exam Vitals: Blood pressure 185/88, T-max 98.7, heart rate 75 Head: Normocephalic Cardiovascular: No murmurs appreciated by me Respiratory: Bilateral air exchange Gastrointestinal: Soft nontender nondistended abdomen Musculoskeletal: No joint misalignment observed by me Skin: No rashes Psychiatric: Normal mood normal affect Neurological: Grossly intact Hematologic: No petechia no purpura Labs: White count 8, platelet count 173, creatinine 0.9 Microbiology: 06/06/2020 blood cultures positive 2 staph species and staph aureus 06/07/2020 blood culture positive gram-positive cocci 06/08/2020 blood cultures pending 2 negative Imagin06/07/2020 echocardiogram: FINDINGS: 1. There is mild left atrial enlargement. The right atrium, right ventricle, left ventricle and aortic root are of normal size. 2. Normal aortic and tricuspid valves. There was mild mitral annular calcification. 3. There is mild concentric left ventricular hypertrophy. There is some notable thickening of the septum at the outflow tract. The ejection fraction is 60%. 4. There was no pericardial effusion noted. A device lead is noted in the right atrium and right ventricle. COLOR FLOW AND SPECTRAL DOPPLER ANALYSIS: 1. The pressure gradient noted in the outflow tract with Valsalva is 88 mmHg. 2. There was trace tricuspid insufficiency. The right ventricular systolic pressure is 35 mmHg. 06/06/2020 CT chest: IMPRESSION: 1. There is no obvious evidence for a large pulmonary embolus. Although, the study is limited due to poor opacification of the pulmonary arteries. 2. There is a trace pericardial effusion 06/07/2020 CT abdomen and pelvis: IMPRESSION: Question hazy density of the fat about the celiac axis and SMA versus artifact 1. Hypodensity of the right liver likely related to fatty infiltration as discussed [id number] contrast-enhanced CT or sonography suggested for further confirmation 2. Right adrenal nodule with nonspecific Hounsfield unit measurement- dedicated adrenal imaging is recommended 3. Hiatal hernia 4. IVC filter 5. Small amount of pericardial fluid and small bilateral layering pleural effusions; pacing leads 6. Lower lumbar hardware as above Assessment and plan Coag negative staph bacteremia in a patient with pacemaker Possible endocarditis This patient needs a DANIELE to evaluate the wires Most likely source are the bruises on his arms from his cat Repeat blood cultures to document clearance already obtained Continue on cefazolin 2g q8h alone Follow-up susceptibilities of coag-negative staff to determine final regimen Thank you for this consult will follow with you please call with any questions Report Signers: <Electronically signed by Minh Dumas MD> Minh Dumas MD 07/30/202006 Minh Dumas MD SIGNATURE DA Report Cosigners: D: GEOSHER 06/08/202235 T: GEOSHER 06/08/202235 CC: Name Value Range Interpretation Code Description Data Evelin rce(s) Supporting Document(s) ID Date Data Source [id number] 06/08/2020 04:33:00 PM [facility] Pharmacy Department JAGJIT IBARRA : 1960 Date: 06/08/20 [id number] Pharm- Kinetic Note Vancomycin - General Information Reason for note:: Follow-Up - Concurrently Taking Concurrently Taking:: Ceftriaxone - 2g iv q12h - Medications/Allergies Current Medications: Current Medications Acetaminophen (Acetaminophen 325 Mg Tab) 650 mg PO Q6H PRN PRN Reason: FEVER Last Admin: 06/08/20 04:32 Dose: 650 mg Documented by: Amiodarone HCl (Amiodarone 200 Mg Tablet) 200 mg PO BID [facility] Last Admin: 06/08/20 08:26 Dose: 200 mg Documented by: Apixaban (Apixaban 5 Mg Tablet) 5 mg PO BID [facility] Last Admin: 06/08/20 08:27 Dose: 5 mg Documented by: Aspirin (Aspirin Chew 81 Mg) 81 mg PO DAILY [facility] Last Admin: 06/08/20 08:27 Dose: 81 mg Documented by: Atorvastatin Calcium (Atorvastatin Calcium 40 Mg Tablet) 80 mg PO HS [facility] Last Admin: 06/07/20 21:41 Dose: 80 mg Documented by: Carvedilol (Carvedilol 6.25 Mg Tablet) 25 mg PO BIDWM [facility] Last Admin: 06/08/20 08:25 Dose: 25 mg Documented by: Cholecalciferol (Cholecalciferol (Vitamin D3) 1,000 Units Tablet) 1,000 units PO DAILY [facility] Last Admin: 06/08/20 08:27 Dose: 1,000 units Documented by: Cyanocobalamin (Cyanocobalamin 1,000 Mcg Tablet) 500 mcg PO DAILY [facility] Last Admin: 06/08/20 08:28 Dose: 500 mcg Documented by: Duloxetine HCl (Duloxetine Hcl 30 Mg Capsule.Dr) 60 mg PO DAILY [facility] Last Admin: 06/08/20 08:29 Dose: 60 mg Documented by: Fish Oil ([place]- 3/Dha/Epa/Fish Oil 1,000 Mg Capsule) 1,000 mg PO DAILY [facility] Last Admin: 06/08/20 08:30 Dose: 1,000 mg Documented by: Folic Acid (Folic Acid 1 Mg Tablet) 1 mg PO DAILY [facility] Last Admin: 06/08/20 08:29 Dose: 1 mg Documented by: Gabapentin (Gabapentin 300 Mg Capsule) 600 mg PO TID [facility] Last Admin: 06/08/20 13:56 Dose: 600 mg Documented by: Sodium Chloride (Ns 0.9%) 1,000 mls @ 75 mls/hr IV .[id number] [facility] Last Admin: 06/08/20 14:50 Dose: 75 mls/hr Documented by: Vancomycin HCl (Vancomycin/Water For Inj (Peg)) 1.25 gm in 250 mls @ 166.667 mls/hr IV Q12H [facility] Last Admin: 06/08/20 16:19 Dose: 166.7 mls/hr Documented by: Ceftriaxone Sodium/Dextrose (Rocephin 2gm (Premix) Piggyback) 2 gm in 50 mls @ 100 mls/hr IV DAILY [facility] Last Infusion: 06/08/20 10:35 Dose: Infused Documented by: Insulin Human Lispro (Insulin Human Lispro (100 Units/Ml) 3 Ml Vial) 0 units SQ AC HS/SLIDING SCALESCH Last Admin: 06/08/20 12:40 Dose: 6 units Documented by: Metformin HCl (Metformin Hcl 500 Mg Tablet) 1,000 mg PO BIDWM [facility] Morphine Sulfate (Morphine Sulfate 4 Mg/Ml Sdv) 4 mg IVP Q4H PRN PRN Reason: PAIN, SEVERE (SCORE 7-10/10) Nitroglycerin (Nitroglycerin 0.4 Mg Subl) 0.4 mg SL Q5M PRN PRN Reason: CHEST PAIN Pantoprazole Sodium (Pantoprazole Sodium 40 Mg Sdv) 40 mg IVP DAILY [facility] Last Admin: 06/08/20 08:31 Dose: 40 mg Documented by: Pharmacy Consult (Vancomycin Per Pha 1 Consult Ea) 1 consult IV . PRN PRN Reason: CONSULT Tamsulosin HCl (Tamsulosin Hcl 0.4 Mg Capsule) 0.4 mg PO DAILY [facility] Last Admin: 06/08/20 08:30 Dose: 0.4 mg Documented by: Trazodone HCl (Trazodone Hcl 50 Mg Tablet) 100 mg PO HS [facility] Last Admin: 06/07/20 21:41 Dose: 100 mg Documented by: - Infection Infection (Type/Site/Source): Endocarditis - Dosing Initial Dosing: vancomycin 2g iv x1 Current Dosing: vancomycin 1.25g IV q12h Subsequent Dosing: continue dose Days of therapy: 2 - Labratory/Microbiology Labratory Values: Vancomycin Levels 06/08/20 05:30 Vancomycin Peak 26.5 Creatinine/BUN BUN 12 mg/dL (9-23) 06/08/20 05:30 Creatinine 0.9 mg/dL (0.5-1.1) 06/08/20 05:30 Abnormal Laboratory Results past 24 hours 06/07/20 06/07/20 06/07/20 16:20 16:20 17:30 RBC Hgb Hct MCHC ESR [place] 51 H Glucose POC Glucose 222 H Hemoglobin A1c Calcium C- Reactive Protein 131.0 H Albumin 06/07/20 06/08/20 06/08/20 20:29 05:30 05:30 RBC 4.11 L Hgb 11.9 L Hct 38.0 L MCHC 31.3 L ESR [place] Glucose 253 H POC Glucose 261 H Hemoglobin A1c Calcium 8.4 L C-Reactive Protein Albumin 2.5 L 06/08/20 06/08/20 06/08/20 05:30 07:54 12:11 RBC Hgb Hct MCHC ESR [place] Glucose POC Glucose 266 H 282 H Hemoglobin A1c 9.9 H Calcium C- Reactive Protein Albumin 06/08/20 05:30 06/08/20 05:30 Microbiology: Microbiology 06/08/20 11:40 Venous blood Blood Culture - Pending 06/08/20 11:40 Venous blood Blood Culture - Pending 06/07/20 16:20 Venous blood Blood Culture - Preliminary Gram Positive Cocci 06/07/20 02:05 Venous blood Blood Culture - Preliminary 06/07/20 02:05 Venous blood Blood Culture - Preliminary 06/07/20 16:20 Venous blood Blood Culture - Pending 06/07/20 02:05 Venous blood - Final Staphylococcus species Staphylococcus aureus detected 06/06/20 20:50 Nasopharyngeal Respiratory Panel (PCR) - Final No Organisms Detected 06/06/20 20:50 Nasopharyngeal Influenza-Like Illness (PCR) - Final No Organisms Detected 06/06/20 20:50 Nasopharyngeal - Final - Narrative Narrative: estimated AUC/GUY on same dose is 424, trough is 9.1, and peak is 29.7. These are all within goal ranges - Medications/Allergies Home Medication List: Home Medications aspirin 81 mg PO DAILY 07/06/19 [History] nitroglycerin 0.4 mg SUBLINGUAL Q5MIN PRN 07/06/19 [History] aripiprazole 5 mg PO DAILY 07/07/19 [History] atorvastatin 80 mg PO DAILY 07/07/19 [History] carvedilol 25 mg PO BID 07/07/19 [History] cholecalciferol (vitamin D3) 25 mcg PO DAILY 07/07/19 [History] duloxetine 60 mg PO DAILY 07/07/19 [History] folic acid 1 mg PO DAILY 07/07/19 [History] gabapentin 600 mg PO TID 07/07/19 [History] metformin 1,000 mg PO BID 07/07/19 [History] tamsulosin 0.4 mg PO DAILY 07/07/19 [History] Eliquis 5 mg PO BID 05/29/20 [History] amiodarone 200 mg PO BID #60 tab 05/31/20 [Rx] amiodarone 400 mg PO BID #24 tab 05/31/20 [Rx] cyanocobalamin (vitamin B-12) 500 mcg PO DAILY 05/31/20 [History] omega-3 fatty acids-vitamin E 1,000 cap PO DAILY 05/31/20 [History] trazodone 100 mg PO HS 05/31/20 [History] pen needle, diabetic [BD Ultra-Fine Orig Pen Needle] #10 ea 06/01/20 [Rx] Allergies/Adverse Reactions: Allergies Allergy/AdvReac Type Severity Reaction Status Date / Time nifedipine [From Procardia] Allergy Mild Taste Verified 06/07/20 00:22 Changes cyclobenzaprine AdvReac Mild Anxiety Verified 06/07/20 00:22 [From Flexeril] prochlorperazine AdvReac Mild Anxiety Verified 06/07/20 00:22 [From Compazine] Pharmacy Kaylie Pickett 06/08/20 1633 Date Time LAST EDIT: Name Value Range Interpretation Code Description Data Evelin rce(s) Supporting Document(s) ID Date Data Source [id number] 06/08/2020 03:27:00 PM [facility] Special Instructions: 1 HOUR PRIOR TO 16 00 DOSE Name Value Range Interpretation Code Description Data Evelin rce(s) Supporting Document(s) Vancomycin [Mass/volume] in Serum or Plasma --trough 10.5 ug/mL 10- N [facility] ID Date Data Source [id number] 06/08/2020 01:51:00 PM EST [facility] Name: JAGJIT IBARRA : 1960 Age: 60 MR#: [id number] Admit Date: 06/08/20 Provider: Unique Ford Room #: 292 Consulting Provider: [facility] Cardiology; Minh Dumas MD ictation Date: 06/08/20 History Physical HPI Date of service Date of service:: 06/08/20 History of Present Illness Nurse screening for coronavirus: Recent Travel outside the country (where) Has patient experienced No coronavirus symptoms Chief Complaint: chest pain Emergency Room stated complaint: Cardiovascular Justification for continued stay:: Possible endocarditis Admitted From: In-House Transfer Primary (Admitting) Diagnosis: Chest pain Source of information: Patient Place Event/Injury Occurred: Reports home HPI Free Text/Narrative:: 60 y/o male with PMH of CAD with stent x2, DVT, PE, atrial fibrillation, type II DM, AICD pacemaker, HLD, and HTN was admitted on 06/06/2020 from the ED for complaints of left-sided chest pain with radiation to the left arm and associated diaphoresis and lightheadedness.Patient reported a syncopal episode on 06/05/2020. In the ED he was given aspirin. EKG showed NSR, negative troponin, CTA chest negative for PE. Was treated in the ED with Nitropaste, morphine, sublingual nitro, and regular insulin for uncontrolled hyperglycemia. The ED physician contacted [facility] who noted that the patient's pacemaker showed no abnormality, battery failure, or arrhythmia that would cause a syncopal episode. Shortly after admission it was reported that the patient was febrile with a temp of 101.2 3F and HR> 90, which met 2/4 SIRS criteria. Lactic acid was1.9. Due to fever and chest pain, echocardiogram and CT abdomen/pelvis were ordered and Vanco and Zosyn were started. Echo showed normal left ventricular systolic function, and hypertrophic obstructive cardiomyopathy with evidence for a moderate LV outflow tract gradient with Valsalva as well as some evidence for systolic anterior motion of the mitral leaflet. Repeat troponin was negative. Patient's chest pain has resolved. He has no complaints at this time. Allergies/Home Meds Allergies Allergy/AdvReac Type Severity Reaction Status Date / Time nifedipine [From Procardia] Allergy Mild Taste Verified 06/07/20 00:22 Changes cyclobenzaprine AdvReac Mild Anxiety Verified 06/07/20 00:22 [From Flexeril] prochlorperazine AdvReac Mild Anxiety Verified 06/07/20 00:22 [From Compazine] Home Medications Medication Instructions Recorded Confirmed Last Taken Type aspirin 81 mg PO DAILY 07/06/19 06/06/20 06/06/20 History nitroglycerin 0.4 mg SUBLINGUAL Q5MIN PRN 07/06/19 06/06/20 05/29/20 13:30 History o.4 mg aripiprazole 5 mg PO DAILY 07/07/19 05/29/20 05/29/20 07:00 History 5 mg atorvastatin 80 mg PO DAILY 07/07/19 06/06/20 06/05/20 History carvedilol 25 mg PO BID 07/07/19 06/06/20 06/06/20 History cholecalciferol (vitamin D3) 25 mcg PO DAILY 07/07/19 06/06/20 06/06/20 History duloxetine 60 mg PO DAILY 07/07/19 06/06/20 06/06/20 History folic acid 1 mg PO DAILY 07/07/19 06/06/20 06/06/20 History gabapentin 600 mg PO TID 07/07/19 06/06/20 06/06/20 History metformin 1,000 mg PO BID 07/07/19 06/06/20 06/06/20 History tamsulosin 0.4 mg PO DAILY 07/07/19 06/06/20 06/06/20 History Eliquis 5 mg PO BID 05/29/20 06/06/20 06/05/20 History amiodarone 200 mg PO BID #60 tab 05/31/20 06/06/20 Unknown Rx amiodarone 400 mg PO BID #24 tab 05/31/20 06/06/20 Unknown Rx cyanocobalamin (vitamin B-12) 500 mcg PO DAILY 05/31/20 06/06/20 06/06/20 History omega-3 fatty acids-vitamin E 1,000 cap PO DAILY 05/31/20 06/06/20 06/06/20 History trazodone 100 mg PO HS 05/31/20 06/06/20 06/06/20 History pen needle, diabetic [BD #10 ea 06/01/20 06/06/20 Unknown Rx Ultra-Fine Orig Pen Needle] Medication list updated and reviewed:: Yes PFSH Medical History (Updated 06/07/20 @ 20:07 by Kayla Callahan) Deep vein thrombosi s Diabetes mellitus Malka filter in place Hiatal hernia Hypertension Myocardial infarction Pacemaker Raynaud's disease Spinal fusion failure Stroke Surgical History H/O knee surgery Hx of heart artery stent Hx of neck surgery Family History Father Cancer Mother Cancer Brother Cancer Social History Does the Patient have a Healthcare Proxy: Yes Does Patient have a DNR?: No Does Patient have a Living Will?: No Does the Patient have a MOLST?: No Advance Directives on File or in chart?: Yes Hx Recent Travel (where): No Smoking Status: Former smoker Sickle cell Sickle Cell Screening:: Not indicated ROS Const All systems reviewed are unremarkable except as noted in HPI and below Denies body ache(s), Denies chills, Denies fatigue and Denies fever(s) Eyes Denies blurry vision, Denies change in vision, Denies eye discharge and Denies itchy eyes ENT Denies abnormal hearing, Denies vertigo, Denies ear discharge, Denies facial pain and Denies lip swelling Card Denies chest pain, Denies rapid heart rate, Denies leg edema, Denies palpitations and Denies dyspnea Resp Denies chest congestion, Denies cough, Denies dyspnea and Denies wheezing GI Denies abdominal pain, Denies melena, Denies hematochezia, Denies diarrhea, Denies nausea and Deniesvomiting Denies hematuria, Denies difficulty urinating and Denies dysuria Musc Denies back pain, Denies arthralgias, Denies numbness and Denies radiating pain into limb Skin/Breast Denies pruritus, Denies lesions and Denies unusual bruising Neuro Denies abnormal hearing, Denies behavioral changes, Denies vertigo, Denies numbness and Denies paresthesias Psych Denies anxiety, Denies behavioral changes, Denies depression, Denies homicidal ideation and Denies suicidal ideation Endo Denies cold intolerance, Denies fatigue, Denies flushing, Denies heat intolerance and Denies palpitations Ravi/Lymph Denies easy bleeding and Denies easy bruising Aller/Immun Denies urticaria, Denies itchy eyes, Denies lip swelling and Denies wheezing Vital Signs and I O Vitals and I O: Vital Signs last 12 hours Temp Pulse Resp BP Pulse Ox 06/08/20 08:26 70 121/72 06/08/20 08:25 70 121/72 06/08/20 08:07 70 18 96 06/08/20 07:50 96.2 F L 70 20 121/72 97 06/08/20 07:00 68 06/08/20 04:32 97.7 F 06/08/20 04:00 97.7 F 71 18 131/74 20 L Intake Output Last 24 Hours 06/06/20 06/07/20 06/08/20 23:59 23:59 23:59 Intake Total 2840 / 2840 530 / 530 Output Total 1000 / 1000 1450 / 1450 Balance 1840 / 1840 -920 / -920 Current Weight 282 lb Height,Weight BMI: Ht Wt BMI Current Height 6 ft Current Weight 282 lb Body Mass Index (BMI) 38.2 Body Mass Index (BMI) Obese Classification Results Results: 06/08/20 05:30 06/08/20 05:30 Laboratory Results Last 24 hours 06/07/20 16:20: ESR Westergren 51 H 06/07/20 16:20: Lactic Acid 1.6 06/07/20 16:20: C-Reactive Protein 131.0 H 06/07/20 17:30: POC Glucose 222 H 06/07/20 20:29: POC Glucose 261 H 06/08/20 0 5:30: WBC 8.0, RBC 4.11 L, Hgb 11.9 L, Hct 38.0 L, MCV 92.5, MCH 29.0, MCHC 31.3 L, RDW 13, Plt Count 173, MPV 10.5, Immature Gran % (Auto) 1.1, Neut % (Auto) 69.7, Lymph % (Auto) 15.6, Mccone % (Auto) 11.0, Eos % (Auto) 1.7, Baso % (Auto) 0.9, Lymph # (Auto) 1.3, Abs Immat Gran (auto) 0.1, Add Manual Diff No, Absolute Neutrophils 5.6, Monocytes # 0.9, Absolute Eosinophils 0.1, Absolute Basophils 0.1 06/08/20 05:30: Sodium 138, Potassium 3.6, Chloride 105, Carbon Dioxide 25, Anion Gap 12, BUN 12, Creatinine 0.9, GFR Calculation Greater than 60, Glucose 253 H, Calcium 8.4 L, Total Bilirubin 0.8, AST 22, ALT 47, Alkaline Phosphatase 112, Serum Total Protein 6.0, Albumin 2.5 L 06/08/20 05:30: Hemoglobin A1c 9.9 H, Estim Average Glucose 237 06/08/20 05:30: Vancomycin Peak 26.5 06/08/20 07:54: POC Glucose 266 H 06/08/20 11:40: Lactic Acid 1.3 06/08/20 12:11: POC Glucose 282 H Microbiology 06/07/20 16:20 Venous blood Blood Culture - Preliminary Gram Positive Cocci 06/07/20 02:05 Venous blood Blood Culture - Preliminary 06/07/20 02:05 Venous blood Blood Culture - Preliminary 06/07/20 02:05 Venous blood - Final Staphylococcus species Staphylococcus aureus detected 06/06/20 20:50 Nasopharyngeal Respiratory Panel (PCR) - Final No Organisms Detected 06/06/20 20:50 Nasopharyngeal Influenza-Like Illness (PCR) - Final No Organisms Detected 06/06/20 20:50 Nasopharyngeal - Final Exam Const General: cooperative and no acute distress Nutritional Appearance: obese Orientation: alert, awake and oriented x3 HENMT Head: normal to inspection, normocephalic and atraumatic Ears: hearing grossly normal bilaterally and external ears normal General nose exam: external nose normal and nares normal; no nasal discharge noted Face and sinus: normal facial exam Mouth: lip normal and moist mucous membranes Eyes Alignment and Position: alignment normal and position normal Eyelids: eyelids normal Pupils: PERRL EOM: EOM intact bilaterally Neck Neck: normal visual inspection, full ROM and no lymphadenopathy Lymphatic: no lymphadenopathy noted Chest Chest: normal inspection of the chest Resp Effort Inspection: normal respiratory effort, able to speak in complete sentences, no audible wheezes and no respiratory distress Auscultation: clear to auscultation bilaterally, no crackles, no rales and no wheezes Cardio Jugular venous pressure: no JVD Rate: regular rate Rhythm: regular rhythm Heart Sounds: S1 normal, S2 normal and murmur (Holosystolic murmur at apex) systolic Pulses: radial pulses present and dorsalis pedis present GI Inspection: Yes normal to inspection Palpation: soft, no hepatosplenomegaly, no guarding and not rigid Auscultation: normal bowel sounds Musc Cervical Spine: normal cervical lordosis and cervical ROM normal Skin Lesions: no lesions Rashes: no rashes Wounds: no wounds Neuro General: patient alert, patient awake, patient oriented x3 and normal light touch, pain and propioception Cranial Nerves: CN's II-XII intact bilaterally and PERRL Cognition: normal cognition Motor: muscle tone normal throughout and strength 5/5 throughout Sensory Exam: no sensory deficits noted Extrem General: normal to inspection, capillary refill normal, no clubbing, cyanosis or edema and no calf tenderness Psych Appearance: grossly normal Mood: congruent mood Affect: normal affect Attitude: cooperative Assessment/Plan Proph ylactic measures DVT/VTE Prophylactic:: Currently on Prophylactic. Will continue therapy A P Free Text/Narrative :: 60 y/o male initially admitted on 06/06/2020 for observation for chest pain. Labs and images reviewed. 1. Fever - Resolved 2. Chest pain - Resolved; continue telemetry and monitoring - TSH WNL, repeat troponins negative 3. Suspected endocarditis - Continue IV Vanco, discontinue IV Ceftriaxone, per infectious disease - ID consulted patient via teleconference (Dr. Dumas) and recommended the patient gets a DANIELE and continue IV Vanco (if negative MRSA, may switch to Cefazolin) - Dr. Ferreira from [facility] Cardiology saw the patient this morning and recommended the following: - 4-6 weeks total of ABX - Daily blood cultures x 3 days - Repeat blood cultures the day after ABX are completed - If daily blood cultures are positive or positive after completing ABX, patient will be required to have ICD removed (he is scheduled to see soda jerker regarding ICD next week) - If blood cultures sterilize immediately, complete antibiotic course and reassess 3. Status post AICD pacemaker - Will see soda jerker next week 4. Coronary artery disease - Continue aspirin 5. History of pulmonary embolism/DVT - Continue Eliquis 6. Status post Malka filter placement 7. Atrial fibrillation - Continue amiodarone, Eliquis 8. Hyperlipidemia - Continue atorvastatin, fish oil 9. Hypertension - Continue carvedilol 10. GERD 11. Hazy density superior mesenteric artery and celiac axis by CT abdomen 12. Right liver hypodensity by CT abdomen - Abdominal US showed no cholelithiasis or biliary ductal dilatation, no renal calculus or hydronephrosis on the right, and no free intraperitoneal fluid 13. Type 2 DM - Hold metformin; continue Accu-checks and insulin sliding scale - HgbA1C 9.9 (was 10.1 on 05/29/2020) 14. Depression - Continue duloxetine, trazodone 15. BPH - Continue tamsulosin Plan: Continue IV antibiotics. Per ID, working to obtain DANIELE to determined endocarditis status. Awaiting return call from [facility] Cardiology. Will call again in the morning if I do not receive a call back. DVT prophylaxis: continue Eliquis Code status: full code Care plan: Plan of care discussed with patient and or family, Patient encouraged to ask questions about plan and Patient agrees with plan of care Dictated by: <Electronically signed by Unique CLEMENT> Unique CLEMENT 06/08/20 1840 Unique Ford SIGNATURE DA Report Cosigners: <<Signature on File>> Christo Llamas MD 06/08/202039 <Electronically signed by Christo Llamas MD> Christo Llamas MD 06/08/202039 D: DONNA 06/08/201350 T: DONNA 06/08/201350 CC: Name Value Range Interpretation Code Description Data Evelin rce(s) Supporting Document(s) ID Date Data Source [id number] 06/08/2020 10:36:00 AM [facility] CONSULTATION REPORT NAME: JAGJIT IBARRA : 1960 [id number] AGE: 60 MR#: [id number] ADMITTING DATE: 06/08/[address]: Chilo Pineda MD DISCHARGE DATE: ATTENDING DR: Chilo Pineda MD ROOM#: [id number] DATE CONSULT DICTATED 06/08/2020 CARDIOLOGY CONSULTATION June 08, 2020 HISTORY OF PRESENT ILLNESS The patient is a 60-year-old gentleman who presented to [facility] with some constant sharp chest discomfort. He had some left arm discomfort and diaphoresis. The patient has a history of known CAD (coronary artery disease) having had prior coronary stenting. He has a history of pulmonary embolus, DVT (deep venous thrombosis), Cactus filter placement, ICD implantation, as well as diabetes. The patient had been seen on the day of admission by cardiology andhad a reported syncopal episode from June 05 evaluated. There was no arrhythmia apparently noted although the generator was felt to be malfunctioning and he is being considered for generator change once he is elevated by the soda jerker. The patient has had heavy alcohol use in the past. He has been admitted previously with atrial fibrillation with rapid ventricular response, with the last admission being May 29, 2020. The patient had been given amiodarone for prophylaxis against atrial fibrillation at that time. He has been admitted and troponin has been negative despite his chest pain. However his blood culture cameback showing staph aureus on one blood culture. The patient is currently afebrile. PAST MEDICAL HISTORY The patient has paroxysmal atrial fibrillation. He has had a history of coronary artery disease and coronary stenting. He has had deep venous thrombosis and has a Cactus filter in place. He has hypertension, spinal fusion in the past as well a stroke. He has had knee surgery and neck surgery. MEDICATIONS Medication list is extensive and is reviewed. SOCIAL HISTORY He is an everyday smoker. He has consumed alcohol in excess in the past. REVIEW OF SYSTEMS Review of systems is otherwise negative through a 10-point system review. PHYSICAL EXAMINATION Middle-aged gentleman who is obese. His blood pressure is 130/80, heart rate is 80 and regular, height 6 feet 0 inches, weight is 282 pounds. He is currently afebrile. HEENT (head, eyes, ears, nose and throat): Examination is unremarkable. NECK: Neck reveals no JVD (jugular venous distention) or carotid bruit. LUNGS: Lungs are clear. CARDIAC EXAM: Demonstrates a normal S1 and S2. He has a grade II/ holosystolic murmur heard at the apex. ABDOMEN: The abdomen is soft and nontender. There is no organomegaly or mass. EXTREMITIES: Extremities reveal no clubbing, cyanosis or edema. LAB DATA Lab data is reviewed. Troponin is negative. BUN and creatinine are 16 and 1.5 from June 06. ProBNP (brain natriuretic peptide) is 345. IMPRESSION 60-year-old gentleman who has a prior history of coronary stenting. He presented with chest pain which appears to be noncardiac. Troponins are negative despite his chest pain. He had an echocardiogram completed which shows normal left ventricular function. He does have a moderate leftventricular outflow tract gradient. This has been stable. He does have a device in place and has apositive blood culture staph aureus. Subsequent blood cultures are pending. RECOMMENDATIONS The patient should be treated with a full antibiotic regimen, and I would consider treating him for4 to 6 weeks as if he may indeed have endocarditis or an infected device lead. If the blood cultures sterilize immediately, I think he can undergo a full course of antibiotics and be reassessed. However, if he does not necessarily need the ICD, this could be removed by the soda jerker when they see him next week, or certainly if he has recurrent or persistently positive blood cultures then that will be necessary. Further therapy will depend on his course. This was discussed with Dr. Pineda. <Electronically signed by Whit Ferreira MD> Whit Ferreira MD 06/13/20 1422 Whit Ferreira M.D. Cosigner: D: SHANA 06/08/20 1036 T: LE 06/08/20 1258 CC: Cindy Iraheta; Whit Ferreira M.D. LAST EDIT: Name Value Range Interpretation Code Description Data Evelin rce(s) Supporting Document(s) ID Date Data Source [id number] 06/08/2020 11:56:00 AM EST [facility] ([facility]di[facility]) Name Value Range Interpretation Code Description Data Evelin rce(s) Supporting Document(s) .Scanned Labs Laboratory test result [facility] ([facility]) ID Date Data Source [id number] 06/08/2020 11:43:00 AM [facility] Therapy Department JAGJIT IBARRA OB: 1960 [id number] Attending: Chilo Pineda MD OT Inpatient Evaluation - Therapy Evaluation OT Order Rec'd:: 06/08/20 Date Started:: 06/08/20 Time Started:: 08:34 Name: Chilo Pineda Diagnosis:: chest pain Reason for Evaluation: New Admission Rehab Diagnosis:: difficulty walking PMH and Social Hx. Reviewed per MD, Nursing, and ER Assess.: Yes - Subjective/History Subjective:: Pt is a 60 year old male who presented to the hospital secondary to chest pain. Pt with pain 6/10 inher back and neck however this has been his baseline for many years. Pt currently at his baseline for ADLs, transfers and bed mobility. No further OT needs at this time. Prior Level of Function:: Patient lives alone and is independent with ADLs and IADLs. Pt not using AD for mobility. Type of Dwelling: Apartment Physical Barriers in Home Environment: Railing both sides, Stairs Home Environment:: 16 steps - Objective Hearing Ability: Normal Hearing Visual Assistive Devices: None Observations: Alert and oriented x 3 - Transfer Sit<>Stand:: Independent Bed<>Chair:: Independent Sit<>Supine:: Independent Supine<>Sit:: Independent Bed Mobility:: Independent - Ambulation Ambulation Assistance:: Independent Assistive Device:: No Devices Distance (ft):: 200 - Hand Hand Dominance: Left - ADL's Upper Body Dressing Ability: Within Normal/Functional Limits for patient Lower Body Dressing Ability: Within Normal/Functional Limits for patient Upper Body Bathing Ability: Within Normal/Functional Limits for patient Lower Body Bathing Ability: Within Normal/Functional Limits for patient Feet Bathing Ability: Within Normal/Functional Limits for patient Oral Care Ability: Within Normal/Functional Limits for patient Grooming Ability: Within Normal/Functional Limits for patient Toileting Ability: Within Normal/Functional Limits for patient Eating (Feeding) Ability: Within Normal/Functional Limits for patient - IADL'S Laundry Ability: Within Normal/Functional Limits for patient Meal Prep Ability: Within Normal/Functional Limits for patient - Assessment/Recommendations Assessment: Pt is a 60 year old male who presented to the hospital with chest pain. Pt with no further OT needs at this time as he is presenting at his baseline. Frequency: 1 - Plan of Care STG #1: na STG #2: na STG #3: na LTG #1: na LTG #2: na LTG #3: na - End Date Ended:: 06/08/20 Time Ended:: 08:45 Elapsed Time (minutes): 11 Elapsed Time Minutes: 11 Therapist Sidra Murphy 06/08/20 1143 <Electronically signed by Sidra Murphy > 06/08/20 1241 Date Time Cosigner: Chilo Pineda MD 06/08/20 1301 Date Time LAST EDIT: Name Value Range Interpretation Code Description Data Evelin rce(s) Supporting Document(s) ID Date Data Source [id number] 06/13/2020 11:45:00 AM [facility] Name Value Range Interpretation Code Description Data Evelin rce(s) Supporting Document(s) Bacteria identified in Blood by Culture [facility] NO GROWTH AFTER 5 DAYS ID Date Data Source [id number] 06/08/2020 12:12:00 PM [facility] Special Instructions: Lab may order repe at test if initial test elevatedPhysician If elevated, reflex second test in 4-6 hrs Name Value Range Interpretation Code Description Data Evelin rce(s) Supporting Document(s) Lactic w Rfx (if elevated) 1.3 mmol/L 0.5-2.0 N [facility] ID Date Data Source [id number] 06/08/2020 09:34:00 AM [facility] Therapy Department JAGJIT IBARRA : 1960 Date: 06/08/20 [id number] Attending: Chilo Pineda MD Physical Therapy Inpatient Renee - Therapy Evaluation Date PT Order Received:: 06/07/20 Time:: 07:00 Date Started:: 06/08/20 Time Started:: 08:34 Diagnosis:: chest pain Reason for Evaluation: New Admission Rehab Diagnosis:: difficulty walking - Subjective/History Subjective:: Patient presents due to left sided chest pain. He denies pain at this time except his chronic back pain from previous surgeries that he reports is baseline 12/02. Hx pertinent to PT concerns:: DVT, DM, HTN, IA, pacemaker, stroke Prior Level of Function:: Patient lives alone and is independent Type of Dwelling: Apartment Number of inside stairs: 16 Physical Barriers in Home Environment: Railing both sides, Stairs Does the patient have pain?: Yes - Pain Detail Pain Location: low back and neck Pain Description: Chronic Pain Intensity: 7 Pain Scale Used: Numeric Scale - Objective Hearing Ability: Normal Hearing Visual Assistive Devices: None Observations: Alert and oriented x 3 - Transfer Sit<>Stand:: Independent Bed<>Chair:: Independent Supine<>Sit:: Independent Bed Mobility:: Independent - Ambulation Ambulation Assistance:: Independent Assistive Devices: No Devices Distance (ft):: 200 Ambulation Comments: - - Balance Balance Tests:: good - Assessment Physical Therapy Impressions/Assessment: Patient is a 60 y/o male who presents to hospital due to chest pain. Patient appears at baseline for mobility. He was encouraged to ambulate independently - End Date Ended:: 06/08/20 Time Ended:: 08:45 Elapsed Time (minutes): 11 Elapsed Time Minutes: 11 - PT Orders Current Equipment: No devices Discharge Recommendations - Instructions (For discharge) Discharged to:: Home with no needs Therapist Cheryl Pierson 06/08/20 0977 I certify this plan of care Chilo Carreon MD 06/08/20 1301 Date Time LAST EDIT: Name Value Range Interpretation Code Description Data Evelin rce(s) Supporting Document(s) ID Date Data Source [id number] 06/08/2020 07:28:00 AM [facility] Name Value Range Interpretation Code Description Data Evelin rce(s) Supporting Document(s) Hemoglobin A1c [Mass/volume] in Blood 9.9 % 3.8-5.6 Above hig h normal [facility] The following ranges may be u sed for interpretation of results: HGBA1C degree of glucose control: Greater than 8%: Action Suggested * Less than 7%: Goal of Diabetic Therapy Less than 5.6%: NormalFactors such as duration of diabetes, adherence to therapyand the age of the patient should also be considered inassessing the degree of blood glucose control.* High risk of developing usp complications such asretinopathy, nephropathy, neuropathy, cardiopathy, etc. Some danger of hypoglycemic reaction in Type I diabetics.Some glucose intolerant individuals and "Sub Clinical"diabetics may demonstrate HGBA1C levels in this area. Glucose mean value [Moles/volume] in Blood Estimated f rom glycated hemoglobin 237 mg/dL [facility] An A1C of 7% - the goal of diabetic ther apy - is equivalentto an EAG of 154 mg/dl. ID Date Data Source [id number] 06/08/2020 06:59:00 AM [facility] Name Value Range Interpretation Code Description Data [facility] rce(s) Supporting Document(s) Leukocytes [#/volume] in Blood by Automated count 8.0 10*3/uL 4.45-10 .71 N [facility] Erythrocytes [#/volume] in Blood by Automated count 4.11 10*6/uL 4.3-6.1 Below low normal [facility] Hemoglobin [Moles/volume] in Blood 11.9 g/dL 13-18 Below low no rmal [facility] Hematocrit [Volume Fraction] of Blood by Automated count 38.0 % 42-52 Below low normal [facility] [facility] Erythrocyte mean corpuscular volume [Ent itic volume] in Cord blood by Automated count 92.5 fL 80-96 N [facility] Erythrocyte mean corpuscular hemoglobin [Entitic mass] by Automated count 29.0 pg 27-31 N [facility] Erythrocyte mean corpuscular hemoglobin concentration [Mass/volume] in Cord blood 31.3 g/dL 33-37 Below low normal [facility] Erythrocyte distribution width [Entitic volume] by Automated count 13 % 11-15 N [facility] Platelets [#/volume] in Blood by Automated count 173 10*3/uL 130-472 N [facility] Platelet mean volume [Entitic volume] in Blood 10.5 fL 9.1-13.1 N [facility] Neutrophils/100 leukocytes in Blood by Automated count 69.7 % 41- 77 N [facility] Neutrophils [#/volume] in Blood by Automated count 5.6 U 1.7-7.6 N [facility] Lymphocytes/100 leukocytes in Blood by Automated count 15.6 % 14- 46 N [facility] Lymphocytes [#/volume] in Blood by Automated count 1.3 U 0.6-4.6 N [facility] Monocytes/100 leukocytes in Blood by Automated count 11.0 % 4-12 N [facility] Monocytes [#/volume] in Blood by Automated count 0.9 U 0.2-1.2 N [facility] Eosinophils/100 leukocytes in Blood by Automated count 1.7 % 0-7 N [facility] Eosinophils [#/volume] in Blood by Automated count 0.1 U 0.0-0.5 N [facility] Basophils/100 leukocytes in Blood by Automated count 0.9 % 0.4-1 .3 N [facility] Basophils [#/volume] in Blood by Automated count 0.1 U 0.0-0.2 [facility] NUCLEATED RED BLOOD CELL 0 % [facility] NUCLEATED RED BLOOD CELL# 0 U [facility] Immature granulocytes [Presence] in Blood by Automated count 0-2 N [facility] Immature granulocytes [#/volume] in Blood by Automated count 0.1 U 0-0.1 N [facility] Manual Differential panel - Blood NO [facility] ID Date Data Source [id number] 06/08/2020 07:28:00 AM EST [facility] Name Value Range Interpretation Code Description Data Evelin rce(s) Supporting Document(s) Urea nitrogen [Mass/volume] in Serum or Plasma 12 mg/dL 9-23 N [facility] Sodium [Moles/volume] in Serum or Plasma 138 mmol/L 132-146 [facility] Potassium [Moles/volume] in Serum or Plasma 3.6 mmol/L 3.5-5.5 [facility] Chloride [Moles/volume] in Serum or Plasma 105 mmol/L 99-109 [facility] Carbon dioxide, total [Moles/volume] in Serum or Plasma 25 mmol/L 20 -31 N [facility] Anion gap in Serum or Plasma 12 mmol/L 8-16 [facility] Glucose [Mass/volume] in Serum or Plasma 253 mg/dL 74-106 Above high normal [facility] Creatinine 0.9 mg/dL 0.5-1.1 [facility] Glomerular filtration rate/1.73 sq M.pre dicted [Volume Rate/Area] in Serum or Plasma Greater Than 60 ABOVE 60 [facility] Alanine aminotransferase [Enzymatic acti vity/volume] in Serum or Plasma by With P-5'-P 47 U/L 10-49 [facility] ital Aspartate aminotransferase [Enzymatic ac tivity/volume] in Serum or Plasma by With P-5'-P 22 U/L 0-33 N [facility] pital Alkaline phosphatase [Enzymatic activity/volume] in Serum or Plasma 112 U/L 45-129 [facility] Calcium [Mass/volume] in Serum or Plasma 8.4 mg/dL 8.5-10.1 Below low normal [facility] Bilirubin.total [Mass/volume] in Serum or Plasma 0.8 mg/dL 0.3-1.2 [facility] Albumin [Mass/volume] in Serum or Plasma by Bromocresol purple (BCP) dye binding method 2.5 g/dL 3.2-4.8 Below low normal [facility] Protein [Mass/volume] in Serum or Plasma 6.0 g/dL 5.7-8.2 [facility] ID Date Data Source [id number] 06/08/2020 07:15:00 AM EST [facility] Special Instructions: 2.5 HOURS AFTER 04 00 DOSE STARTED Name Value Range Interpretation Code Description Data Evelin rce(s) Supporting Document(s) Vancomycin [Mass/volume] in Serum or Plasma --peak 26.5 ug/mL 20-40 [facility] ID Date Data Source [id number] 06/07/2020 05:06:00 PM [facility] Special Instructions: Lab may order repe at test if initial test elevatedPhysician If elevated, reflex second test in 4-6 hrs FOR SENSITIVITES SEE SPECIMEN [id number] STAIN = GRAM POSITIVE COCCI IN CLUSTERSGROWTH IN PEDIATRIC BOTTLEPREVIOUSLY CALLED 06/07/20 Called to Barbara Shepard. Results read back.06/09/20 0744 CALLED TO BROOKE CARSON,RESULTS READBACKSTAPHYLOCOCCUS AUREUS Name Value Range Interpretation Code Description Data Evelin rce(s) Supporting Document(s) C reactive protein [Mass/volume] in Serum or Plasma 131.0 mg/L 0.0-5.0 Above high normal [facility] ID Date Data Source [id number] 06/07/2020 05:30:00 PM [facility] Special Instructions: Lab may order repe at test if initial test elevatedPhysician If elevated, reflex second test in 4-6 hrs FOR SENSITIVITES SEE SPECIMEN [id number] STAIN = GRAM POSITIVE COCCI IN CLUSTERSGROWTH IN PEDIATRIC BOTTLEPREVIOUSLY CALLED 06/07/20 Called to BRIANNA George @ [facility]. Results read back.06/09/20 0744 CALLED TO BROOKE CARSON,RESULTS READBACKSTAPHYLOCOCCUS AUREUS Name Value Range Interpretation Code Description Data Evelin rce(s) Supporting Document(s) Lactic w Rfx (if elevated) 1.6 mmol/L 0.5-2.0 N [facility] ID Date Data Source [id number] 06/07/2020 05:44:00 PM [facility] Special Instructions: Lab may order repe at test if initial test elevatedPhysician If elevated, reflex second test in 4-6 hrs FOR SENSITIVITES SEE SPECIMEN [id number] STAIN = GRAM POSITIVE COCCI IN CLUSTERSGROWTH IN PEDIATRIC BOTTLEPREVIOUSLY CALLED 06/07/20 Called to Barbara Shepard. Results read back.06/09/20 0744 CALLED TO BROOKE CARSON,RESULTS READBACKSTAPHYLOCOCCUS AUREUS Name Value Range Interpretation Code Description Data Evelin rce(s) Supporting Document(s) Erythrocyte sedimentation rate by Westergren method 51 mm/hr 0-20 Above high normal [facility] @Reenter manual test result: 51@by Iona Brady at 06/07/20 1744. ID Date Data Source [id number] 06/07/2020 01:35:00 PM EST [facility] Pharmacy Department JAGJIT IBARRA : 1960 Date: 06/07/20 [id number] Vancomycin Initiation PK Note - Labratory/Microbiology Labratory Values: Creatinine/BUN BUN 16 mg/dL (9-23) 06/06/20 19:42 Creatinine 1.5 mg/dL (0.5-1.1) H 06/06/20 19:42 Abnormal Laboratory Results past 24 hours 06/06/20 06/06/20 06/06/20 19:42 19:42 19:42 RBC 4.19 L Hgb 12.3 L Hct 36.3 L Neut % (Auto) 77.9 H Lymph % (Auto) 11.1 L Creatinine 1.5 H Glucose 323 H AST 66 H ALT 70 H Zrg-[id number]-Gwptmuzqjhz Pept 345.00 H Albumin 2.9 L 06/06/20 19:42 06/06/20 19:42 Microbiology: Microbiology Results 06/06/20 20:50 Respiratory Panel (PCR) - Final Nasopharyngeal No Organisms Detected 06/06/20 20:50 Influenza-Like Illness (PCR) - Final Nasopharyngeal No Organisms Detected - Final - Infection Infection (Type/Site/Source): Empiric coverage unknown - Concurrently Taking Concurrently Taking:: Zosyn - Dosing Loading Dose:: 20- 25mg/kg (BMI greater than or equal to 30 kg/m2) Total loading dose given:: VANCOMYCIN 2G IV X1 Initial Maintenance dose (15-20 mg/kg): VANCOMYCIN 1.25G IV Q12H - Monitoring Vancomycin Peak ordered for:: 06/08 @ 0530 Vancomycin Trough ordered for:: 06/08 @1500 - Narrative Additional Comments: Estimated AUC:GUY: 484 Estimated Peak 24.8 Estimated Trough: 16.1 - General Information Allergies/Adverse Reactions: Allergies Allergy/AdvReac Type Severity Reaction Status Date / Time nifedipine [From Procardia] Allergy Mild Taste Verified 06/07/20 00:22 Changes cyclobenzaprine AdvReac Mild Anxiety Verified 06/07/20 00:22 [From Flexeril] prochlorperazine AdvReac Mild Anxiety Verified 06/07/20 00:22 [From Compazine] Pharmacy Kaylie Pickett 06/07/20 1335 Date Time LAST EDIT: Name Value Range Interpretation Code Description Data Evelin rce(s) Supporting Document(s) ID Date Data Source [id number] 06/07/2020 11:58:00 AM EST [facility] [address] [address] [phone] NAME SEX PT STATUS ACCOUNT NUMBER JAGJIT IBARRA ADM IN [id number] ORDERING PHYSICIAN LOCATION MEDICAL RECORD NO. Blaise RACQUEL Jauregui [id number] ATTENDING PHYSICIAN DATE OF DATE OF EXAM/TIME Cindy Iraheta NP 1960 06/07/20 / 1027 TYPE / EXAM US Echo complete REASON FOR EXAM chest pain, fever DATE OF TEST: 06/07/20 MEASUREMENTS: Aortic root 3.3 cm, left atrium 4.4 cm, left ventricle in diastole is 4.7 cm, left ventricle in systole is 3.0 cm. FINDINGS: 1. There is mild left atrial enlargement. The right atrium, right ventricle, left ventricle and aortic root are of normal size. 2. Normal aortic and tricuspid valves. There was mild mitral annular calcification. 3. There is mild concentric left ventricular hypertrophy. There is some notable thickening of the septum at the outflow tract. The ejection fraction is 60%. 4. There was no pericardial effusion noted. A device lead is noted in the right atrium and right ventricle. COLOR FLOW AND SPECTRAL DOPPLER ANALYSIS: 1. The pressure gradient noted in the outflow tract with Valsalva is 88 mmHg. 2. There was trace tricuspid insufficiency. The right ventricular systolic pressure is 35 mmHg. CONCLUSIONS: 1. Hypertrophic obstructive cardiomyopathy with evidence for a moderate left ventricular outflow tract gradient with Valsalva as well as some evidence for systolic anterior motion of the mitral leaflet. This is difficult to see on the current study, however. 2. Normal left ventricular systolic function. Reported By Whit Ferreira MD on 06/07/20 1158 Signed By Whit Ferreira MD on 06/13/20 1422 <<Signature on File>> Date Time CC: Cindy Iraheta; Whit Ferreira M.D. Techn: SHANNON Trans Dt/Tm: 06/07/20 1233 Trans by: TWYLA Stevens Dt/Tm: 2235: Total DLP = 0.00 mGy-cm : Total Radiation Dose = 0.0000 mSv Lifetime Dose: 31.4174 mSv Name Value Range Interpretation Code Description Data Evelin rce(s) Supporting Document(s) ID Date Data Source [id number] 06/07/2020 11:04:00 AM EST [facility] [address] [place] [address] [phone] NAME SEX PT STATUS ACCOUNT NUMBER JAGJIT IBARRA [facility] [id number] ORDERING PHYSICIAN LOCATION MEDICAL RECORD NO. Chilo Pineda MD [id number] ATTENDING PHYSICIAN DATE OF DATE OF EXAM/TIME Cindy Iraheta NP 1960 06/07/20 / 1049 TYPE / EXAM US Abd single organ/quadrant REASON FOR EXAM f/u liver hypodensity from CT please COMPARISON: 06/07/19992049 TECHNIQUE: Real-time sonography of the abdomen is performed. FINDINGS: GALLBLADDER: The gallbladder is contracted as lack of n.p.o. status Common bile duct measures 3.4mm. The sonographic Gamboa's sign is negative. LIVER: The liver displays normal homogeneous architecture throughout. There is no intrahepatic or extrahepatic biliary dilatation. No focal masses are identified. RIGHT KIDNEY: The right kidney is normal in appearance. It measures approximately 13.9cm in long diameter and demonstrates no calculus or hydronephrosis. IMPRESSION: 1. No cholelithiasis or biliary ductal dilatation. The examination is limited by lack of gallbladder distention. 2. No renal calculus or hydronephrosis on the right. 3. No free intraperitoneal fluid. If there are clinical concerns for gallbladder dysfunction, follow-up nuclear medicine HIDA scan may be helpful for further evaluation. Reported By Allie Goodson MD on 06/07/20 1104 Signed By Allie Goodson MD on 06/07/20 1110 Date Time CC: Cindy Iraheta; Allie Goodson MD Techn: FREST Trans Dt/Tm: Trans by: DT Prt Dt/Tm: : Total DLP = 0.00 mGy-cm : Total Radiation Dose = 0.0000 mSv Lifetime Dose: 31.4174 mSv Name Value Range Interpretation Code Description Data Evelin rce(s) Supporting Document(s) ID Date Data Source [id number] 06/07/2020 09:35:00 AM [facility] Name: JAGJIT IBARRA : 1960 Age: 60 MR#: [id number] Admit Date: 06/06/20 Provider: Chilo Pineda MD Room #: 292 Consulting Provider: Dictation Date: 06/07/20 Progress Note Subjective-ROS Date of service Date of service:: 06/07/20 Review of Systems ROS (Free Text/Narrative):: Constant chest pain left substernal pressure 2 on a scale of 1-10 similar to previous cardiac related chest pain where he had cardiac stents placed General: Denies Fever and Chills HEENT: Denies Headaches Endocrine: Denies Excessive sweating Cardiovascular: Reports Chest Pain Pulmonary: Denies Dyspnea Gastrointestinal: Denies nausea, vomiting and abdominal pain Genitourinary: Denies Dysuria Musculoskeletal: Denies Muscle Pain Neurological: Denies Weakness Psych: Denies anxiety and feelings of guilt Hematological/Lymphatic: Denies easy bleeding Allergic/Immunologic: Denies rash Attestation/Length Of Stay: 06/06/20 22:10 Observation Order [STATUS] Routine Location: [facility] Primary diagnosis: chest pain Isolation: Standard precautions Admitting Provider: Chilo Pineda Observation Status: OBV less than 2 midnights Anticipated Length of stay:: NA -Observation Patient Vital Signs and I O Vitals and I O: Vital Signs last 12 hours Temp Pulse Pulse Pulse Resp BP BP 06/07/20 08:02 92 18 06/07/20 04:00 98.8 F 89 20 136/62 06/07/20 03:07 98.8 F 06/07/20 02:07 101.2 F H 06/07/20 01:49 96 22 169/89 06/07/20 01:19 96 22 169/89 06/07/20 00:38 87 173/82 06/07/20 00:37 93 155/66 06/07/20 00:00 98.6 F 94 82 80 20 155/66 177/82 06/06/20 23:03 98 06/06/20 21:41 129/58 BP Pulse Ox 06/07/20 08:02 96 06/07/20 04:00 95 06/07/20 03:07 06/07/20 02:07 06/07/20 01:49 95 06/07/20 01:19 98 06/07/20 00:38 06/07/20 00:37 06/07/20 00:00 155/80 95 06/06/20 23:03 06/06/20 21:41 Intake Output Last 24 Hours 06/05/20 06/06/20 06/07/20 23:59 23:59 23:59 Intake Total 400 / 400 Balance 400 / 400 Current Weight 282 lb Results Results: 06/07/20 05:55 06/07/20 05:55 Laboratory Results Last 24 hours 06/06/20 19:42: WBC 8.0, RBC 4.19 L, Hgb 12.3 L, Hct 36.3 L, MCV 86.6, MCH 29.4, MCHC 33.9, RDW 12, Plt Count 208, MPV 10.0, Immature Gran % (Auto) 0.8, Neut % (Auto) 77.9 H, Lymph % (Auto) 11.1 L, Mccone % (Auto) 8.5, Eos % (Auto) 1.3, Baso % (Auto) 0.4, Lymph # (Auto) 0.9, Abs Immat Gran (auto) 0.1, Add Manual Diff No, Absolute Neutrophils 6.2, Monocytes # 0.7, Absolute Eosinophils 0.1, Absolute Basophils 0.0 06/06/20 19:42: PT 11.7, INR 1.1, PTT ([place]) 27.3 06/06/20 19:42: Sodium 133, Potassium 3.5, Chloride 99, Carbon Dioxide 27, Anion Gap 11, BUN 16, Creatinine 1.5 H, GFR Calculation 48, Glucose 323 H, Calcium 8.6, Total Bilirubin 1.1, AST 66 H, ALT 70 H, Alkaline Phosphatase 127, Creatine Kinase 56, CK-MB (CK-2) Less than 1.0, CK-MB (CK-2) % Not Reported, Troponin I Less than 0.015, Serum Total Protein 6.9, Albumin 2.9 L, Lipase 130 06/06/20 19:42: Magnesium 1.8, Mbs-T-Lslxygcooto Pept 345.00 H, TSH 2.05 06/07/20 02:05: Troponin I Less than 0.015 06/07/20 02:05: Lactic Acid 1.9 06/07/20 02:34: Urine Color Yellow, Urine Appearance Clear, Urine pH 5.0, Ur Specific [place] 1.038 A, Urine Protein 100 mg/dl H, Urine Ketones Trace A, Urine Blood Trace A, Urine Nitrate Negative, Urine Bilirubin Negative, Urine Urobilinogen 1 eu/dl, Ur Leukocyte Esterase Negative, Add Ur Microanalysis Microscopic added, Urine RBC Occasional, Urine WBC 2-4, Urine Bacteria Small amount H, Urine Glucose > 1000 mg/dl A 06/07/20 05:55: WBC 8.3, RBC 4.01 L, Hgb 11.8 L, Hct 35.8 L, MCV 89.3, MCH 29.4, MCHC 33.0, RDW 12, Plt Count 115 L, MPV 12.3, Immature Gran % (Auto) 0.6, Neut % (Auto) 80.0 H, Lymph % (Auto) 10.1 L, Mccone % (Auto) 8.1, Eos % (Auto) 0.7, Baso % (Auto) 0.5, Lymph # (Auto) 0.8, Abs Immat Gran (auto) 0.1, Add Manual Diff No, Absolute Neutrophils 6.6, Monocytes # 0.7, Absolute Eosinophils 0.1, Absolute Basophils 0.0 06/07/20 05:55: Sodium 134, Potassium 3.5, Chloride 102, Carbon Dioxide 22, Anion Gap 14, BUN 14, Creatinine 1.2 H, GFR Calculation Greater than 60, Glucose 316 H, Calcium 8.2 L, Total Bilirubin 1.1, AST 46 H, ALT 61 H, Alkaline Phosphatase 174 H, Troponin I Less than 0.015, Serum Total Protein 5.8, Albumin 2.7 L 06/07/20 07:36: POC Glucose 260 H Microbiology 06/06/20 20:50 Nasopharyngeal Respiratory Panel (PCR) - Final No Organisms Detected 06/06/20 20:50 Nasopharyngeal Influenza-Like Illness (PCR) - Final No Organisms Detected 06/06/20 20:50 Nasopharyngeal - Final Exam Orientation: Alert HEENT: Atraumatic, PERRLA and EOMI Lungs: normal lung sounds bilaterally Cardiovascular Exam: regular rate and normal rhythm Abdomen: Normal bowel sounds and Soft; negative for Tenderness Extremities: normal inspection Skin: Skin warm and dry, Mucus membranes moist Neurological: Normal speech Psych/Mental Status: normal affect Assessment/Plan A P Free Text/Narrative :: Impression: 1. Fever 2. Chest pain 3. Status post AICD pacemaker 4. Coronary artery disease 5. History of pulmonary embolism/DVT 6. Status post Cactus filter placement 7. Atrial fibrillation 8. Hyperlipidemia 9. Hypertension 10. GERD 11. Hazy density superior mesenteric artery and celiac axis by CT abdomen 12. Right liver hypodensity by CT abdomen Plan: We will continue broad-spectrum IV antibiotics vancomycin Zosyn and await echocardiogram, serial troponin. Obtain ultrasound to further evaluate right liver hypodensity noted by CT abdomen. Will check hemoglobin A1c, TSH. Patient full code. Follow blood culture. Continue Nitropaste, as pirin, telemetry, Eliquis, amiodarone, carvedilol, gabapentin. Follow Accu-Chek glucose sliding scale insulin Dictated by: <Electronically signed by Chilo Pineda MD> Chilo Pineda MD 06/07/20 0943 Chilo Pineda MD SIGNATURE DA Report Cosigners: D: STRAL 06/07/20934 T: STRAL 06/07/20934 CC: Name Value Range Interpretation Code Description Data Evelin rce(s) Supporting Document(s) ID Date Data Source [id number] 06/07/2020 07:00:00 AM EST [facility] [address] [place] [address] [phone] NAME SEX PT STATUS ACCOUNT NUMBER JAGJIT IBARRA M ADM LARRY [id number] ORDERING PHYSICIAN LOCATION MEDICAL RECORD NO. Blaise RACQUEL [place] [id number] ATTENDING PHYSICIAN DATE OF DATE OF EXAM/TIME Cindy Iraheta NP 1960 06/07/20335 TYPE / EXAM CT Abdomen without contrast REASON FOR EXAM L sided chest pain, fever JAGJIT IBARRA [id number] 1960 ADDENDUM Clinical History/Indication for Exam: L sided chest pain, fever Called for Critical Findings by Barbara Rodriguez to CHALINO Oscar on 06/07/2020 4:16AM [place] Time;Call for Critical Findings EXAM: CT abdomen without IV contrast INDICATION: Left-sided chest pain/fever COMPARISON: None TECHNIQUE: Transaxial imaging of the abdomen is performed with no oral and no IV contrast. Coronal and sagittal reformatted imaging is submitted. Pelvis is not imaged This CT exam was performed using one or more of the following dose reduction techniques: automated exposure control, adjustment of the mA and/or kV according to patient size, and/or use of iterative reconstruction technique. FINDINGS: Imaged lung bases are unremarkable aside from bibasilar subsegmental atelectasis. Bilateral small layering pleural effusions and a small amount of pericardial fluid are seen. Leads are seen in the right heart. This is a limited exam with no IV contrast. Low density of the right liver is seen. Vessels appear to course through this region and fatty infiltration is likely. Contrast-enhanced CT imaging or sonography is suggested for confirmation. Gallbladder biliary tree pancreas spleen left adrenal are unremarkable. There is a suggestion of nodularity to the right adrenal. Hounsfield unit measurement of the region is approximately 24. Finding is indeterminate. Focus measures 1.7 cm. Adrenal imaging follow-up is suggested. On partial imaging of the system no obstructive uropathy and no system stone are noted. Kidneys are unremarkable. Aorta IVC and remaining vessels are unremarkable. IVC filter is seen in the IVC below the level of the renal veins. Scattered aortoiliac calcifications are present. Subtle hazy density of the fat about the celiac axis and SMA is suggested. No abdominal pelvic adenopathy or ascites is seen. Partially imaged urinary bladder and seminal vesicles are unremarkable. Hiatal hernia is suggested. Partially imaged stomach is underdistended limiting assessment. Remaining imaged unopacified bowel is unremarkable. Remaining soft tissues are unremarkable. Bilateral pedicle screws are seen at the lumbosacral junction. Hardware appears uncomplicated. Cement or bone graft is seen at the last disc space/L5-S1 level. Bones are unremarkable. IMPRESSION: Question hazy density of the fat about the celiac axis and SMA versus artifact 1. Hypodensity of the right liver likely related to fatty infiltration as discussed [id number] contrast-enhanced CT or sonography suggested for further confirmation 2. Right adrenal nodule with nonspecific Hounsfield unit measurement- dedicated adrenal imaging is recommended 3. Hiatal hernia 4. IVC filter 5. Small amount of pericardial fluid and small bilateral layering pleural effusions; pacing leads 6. Lower lumbar hardware as above Automatic exposure control was used as a dose lowering technique. REPORT SIGNATURE ON FILE 06/07/2020 (07:00 Eastern Time ) Signed by: Elvia Goodwin M.D. Addendum Reported By Elvia Goodwin MD on 06/07/20 07 Signed By Elvia Goodwin MD on 06/07/20 07 Trans Dt/Tm: Trans by: ARIELLAQ [p pg] Clinical History/Indication for Exam: L sided chest pain, fever Call for Critical Findings EXAM: CT abdomen without IV contrast INDICATION: Left-sided chest pain/fever COMPARISON: None TECHNIQUE: Transaxial imaging of the abdomen is performed with no oral and no IV contrast. Coronal and sagittal reformatted imaging is submitted. Pelvis is not imaged This CT exam was performed using one or more of the following dose reduction techniques: automated exposure control, adjustment of the mA and/or kV according to patient size, and/or use of iterative reconstruction technique. FINDINGS: Imaged lung bases are unremarkable aside from bibasilar subsegmental atelectasis. Bilateral small layering pleural effusions and a sm all amount of pericardial fluid are seen. Leads are seen in the right heart. This is a limited exam with no IV contrast. Low density of the right liver is seen. Vessels appear to course through this region and fatty infiltration is likely. Contrast-enhanced CT imaging or sonography is suggested for confirmation. Gallbladder biliary tree pancreas spleen left adrenal are unremarkable. There is a suggestion of nodularity to the right adrenal. Hounsfield unit measurement of the region is approximately 24. Finding is indeterminate. Focus measures 1.7 cm. Adrenal imaging follow-up is suggested. On partial imaging of the system no obstructive uropathy and no system stone are noted. Kidneys are unremarkable. Aorta IVC and remaining vessels are unremarkable. IVC filter is seen in the IVC below the level of the renal veins. Scattered aortoiliac calcifications are present. Subtle hazy density of the fat about the celiac axis and SMA is suggested. No abdominal pelvic adenopathy or ascites is seen. Partially imaged urinary bladder and seminal vesicles are unremarkable. Hiatal hernia is suggested. Partially imaged stomach is underdistended limiting assessment. Remaining imaged unopacified bowel is unremarkable. Remaining soft tissues are unremarkable. Bilateral pedicle screws are seen at the lumbosacral junction. Hardware appears uncomplicated. Cement or bone graft is seen at the last disc space/L5-S1 level. Bones are unremarkable. IMPRESSION: Question hazy density of the fat about the celiac axis and SMA [place] artifact 1. Hypodensity of the right liver likely related to fatty infiltration as discussed [id number] contrast-enhanced CT or sonography suggested for further confirmation 2. Right adrenal nodule with nonspecific Hounsfield unit measurement- dedicated adrenal imaging is recommended 3. Hiatal hernia 4. IVC filter 5. Small amount of pericardial fluid and small bilateral layering pleural effusions; pacing leads 6. Lower lumbar hardware as above Automatic exposure control was used as a dose lowering technique. REPORT SIGNATURE ON FILE 06/07/2020 (07:00 Eastern Time ) Signed by: Elvia Goodwin M.D. Reported By Elvia Goodwin MD on 06/07/20 07 Signed By Elvia Goodwin MD on 06/07/20 07 Date Time CC: Cindy Iraheta; Elvia Goodwin MD Techn: BAIAB Trans Dt/Tm: Trans by: DT Prt Dt/Tm: : Total DLP = 589.00 mGy-cm : Total Radiation Dose = 8.8350 mSv Lifetime Dose: 31.4174 mSv Name Value Range Interpretation Code Description Data Evelin rce(s) Supporting Document(s) ID Date Data Source [id number] 06/07/2020 10:24:00 AM [facility] Special Instructions: May perform off bl ood in lab Name Value Range Interpretation Code Description Data Evelin rce(s) Supporting Document(s) Thyrotropin [Units/volume] in Serum or Plasma by Detec tion limit <= 0.005 mIU/L 0.99 u[iU]/mL 0.35-5.50 N [facility] al ID Date Data Source [id number] 06/07/2020 06:26:00 AM [facility] Name Value Range Interpretation Code Description Data Evelin rce(s) Supporting Document(s) Leukocytes [#/volume] in Blood by Automated count 8.3 10*3/uL 4.45-10 .71 [facility] Erythrocytes [#/volume] in Blood by Automated count 4.01 10*6/uL 4.3-6.1 Below low normal [facility] Hemoglobin [Moles/volume] in Blood 11.8 g/dL 13-18 Below low no rmal [facility] Hematocrit [Volume Fraction] of Blood by Automated count 35.8 % 42-52 Below low normal [facility] Erythrocyte mean corpuscular volume [Ent itic volume] in Cord blood by Automated count 89.3 fL 80-96 N [facility] Erythrocyte mean corpuscular hemoglobin [Entitic mass] by Automated count 29.4 pg 27-31 N [facility] l Erythrocyte mean corpuscular hemoglobin concentration [Mass/volume] in Cord blood 33.0 g/dL 33-[address] [facility] Erythrocyte distribution width [Entitic volume] by Automated count 12 % 11-15 N [facility] Platelets [#/volume] in Blood by Automated count 115 10*3/uL 130-472 Below low normal [facility] Platelet mean volume [Entitic volume] in Blood 12.3 fL 9.1-13.1 N [facility] Neutrophils/100 leukocytes in Blood by Automated count 80.0 % 41-77 Above high normal [facility] Neutrophils [#/volume] in Blood by Automated count 6.6 U 1.7-7.6 N [facility] Lymphocytes/100 leukocytes in Blood by Automated count 10.1 % 14-46 Below low normal [facility] Lymphocytes [#/volume] in Blood by Automated count 0.8 U 0.6-4.6 N [facility] Monocytes/100 leukocytes in Blood by Automated count 8.1 % 4-12 N [facility] Monocytes [#/volume] in Blood by Automated count 0.7 U 0.2-1.2 N [facility] Eosinophils/100 leukocytes in Blood by Automated count 0.7 % 0-7 N [facility] Eosinophils [#/volume] in Blood by Automated count 0.1 U 0.0-0.5 N [facility] Basophils/100 leukocytes in Blood by Automated count 0.5 % 0.4-1 .3 N [facility] Basophils [#/volume] in Blood by Automated count 0.0 U 0.0-0.2 N [facility] NUCLEATED RED BLOOD CELL 0 % [facility] NUCLEATED RED BLOOD CELL# 0 U [facility] Immature granulocytes [Presence] in Blood by Automated count 0-2 N [facility] Immature granulocytes [#/volume] in Blood by Automated count 0.1 U 0-0.1 N [facility] Manual Differential panel - Blood NO [facility] ID Date Data Source [id number] 06/07/2020 07:00:00 AM EST [facility] Name Value Range Interpretation Code Description Data Evelin rce(s) Supporting Document(s) Urea nitrogen [Mass/volume] in Serum or Plasma 14 mg/dL 9-23 N [facility] Sodium [Moles/volume] in Serum or Plasma 134 mmol/L 132-146 N [facility] Potassium [Moles/volume] in Serum or Plasma 3.5 mmol/L 3.5-5.5 N [facility] Chloride [Moles/volume] in Serum or Plasma 102 mmol/L 99-109 N [facility] Carbon dioxide, total [Moles/volume] in Serum or Plasma 22 mmol/L 20 -31 N [facility] Anion gap in Serum or Plasma 14 mmol/L 8-16 N [facility] Glucose [Mass/volume] in Serum or Plasma 316 mg/dL 74-106 Above high normal [facility] Creatinine 1.2 mg/dL 0.5-1.1 Above high normal Health system Glomerular filtration rate/1.73 sq M.pre dicted [Volume Rate/Area] in Serum or Plasma Greater Than 60 ABOVE 60 [facility] Alanine aminotransferase [Enzymatic acti vity/volume] in Serum or Plasma by With P-5'-P 61 U/L 10-49 Above high normal [facility] Aspartate aminotransferase [Enzymatic ac tivity/volume] in Serum or Plasma by With P-5'-P 46 U/L 0-33 Above high normal [facility] Alkaline phosphatase [Enzymatic activity/volume] in Serum or Plasma 174 U/L 45-129 Above high normal [facility] Calcium [Mass/volume] in Serum or Plasma 8.2 mg/dL 8.5-10.1 Below low normal [facility] Bilirubin.total [Mass/volume] in Serum or Plasma 1.1 mg/dL 0.3-1.2 N [facility] Albumin [Mass/volume] in Serum or Plasma by Bromocresol purple (BCP) dye binding method 2.7 g/dL 3.2-4.8 Below low normal [facility] Protein [Mass/volume] in Serum or Plasma 5.8 g/dL 5.7-8.2 [facility] ID Date Data Source [id number] 06/07/2020 07:00:00 AM EST [facility] Name Value Range Interpretation Code Description Data Evelin rce(s) Supporting Document(s) Troponin I.cardiac [Mass/volume] in Serum or Plasma Less Than 0.015 0.00-0.09 [facility] Less than 0.09 NG/ML Negative0.10 - 0.77 NG/ML High Risk0.78 NG/ML or Greater PositiveThe WHO defined the cutoff (definition for diagnosis of IA)for this method as 0.78 ng/ml. ID Date Data Source [id number] 06/07/2020 05:14:00 AM EST [facility] Reason for ordering culture: Abnormal fi ndings UA@06/07/20 0455: UA W/ MICRO added. RFLXG = UMIC CIF.Method of Collection:: Clean Catch Reason for ordering culture: Abnormal fi ndings UA@06/07/20 0455: UA W/ MICRO added. RFLXG = UMIC CIF.Method of Collection:: Clean Catch Name Value Range Interpretation Code Description Data Evelin rce(s) Supporting Document(s) Color of Urine [facility] Appearance of Urine CLEAR [facility] pH of Urine by Test strip 5.0 5-8 [facility] Specific gravity of Urine by Refractometry 1.038 1.005 -1.030 Abnormal (applies to non-numeric results) [facility] Leukocyte esterase [Presence] in Urine by Test strip NEGAT ASH [facility] Nitrite [Presence] in Urine by Test strip NEGATIVE [facility] Protein [Presence] in Urine by Test strip NEGATIVE Above high normal [facility] @DO MICRO!!!! Glucose [Mass/volume] in Urine by Automated test strip > 1000 mg /dl NEGATIVE Abnormal (applies to non-numeric results) [facility] Ketones [Presence] in Urine by Test strip NEGATI VE Abnormal (applies to non- numeric results) [facility] Urobilinogen [Presence] in Urine 0.2-1 EU/dl [facility] Bilirubin.total [Presence] in Urine by Automated test strip NEGATIVE [facility] Erythrocytes [#/volume] in Urine by Test strip TRACE N EGATIVE Abnormal (applies to non-numeric results) [facility] @DO MICRO!!!! URINE MICROSCOPIC? (CIF) Microscopic Added [facility] ID Date Data Source [id number] 06/07/2020 05:14:00 AM EST [facility] Reason for ordering culture: Abnormal fi ndings UA@06/07/20 0455: UA W/ MICRO added. RFLXG = UMIC CIF.Method of Collection:: Clean Catch Reason for ordering culture: Abnormal fi ndings UA@06/07/20 0455: UA W/ MICRO added. RFLXG = UMIC CIF.Method of Collection:: Clean Catch Name Value Range Interpretation Code Description Data Evelin rce(s) Supporting Document(s) Erythrocytes [#/volume] in Urine by Manual count OCCASIONAL 0-5 [facility] Leukocytes [#/volume] in Urine by Manual count 2-4 /hpf 0-5 [facility] Bacteria [Presence] in Urine sediment by Light microscopy NEGATIVE Above high normal [facility] ID Date Data Source [id number] 06/07/2020 02:53:00 AM [facility] Special Instructions: Lab may order repe at test if initial test elevatedPhysician If elevated, reflex second test in 4-6 hrs FOR SENSITIVITIES SEE SPECIMEN [id number] STAIN = GRAM POSITIVE COCCI IN CLUSTERS GROWING IN BOTHAEROBIC AND ANAERIC [id number]/15/2144 CALLED TO BROOKE CARSON,RESULTS READBACK06/07/20 Called to BRIANNA B @ 1453 by Barbara Krishna. Results readback.STAPHYLOCOCCUS AUREUS Name Value Range Interpretation Code Description Data Evelin rce(s) Supporting Document(s) Lactic w Rfx (if elevated) 1.9 mmol/L 0.5-2.0 N [facility] ID Date Data Source [id number] 06/09/2020 07:49:00 AM [facility] Special Instructions: Lab may order repe at test if initial test elevatedPhysician If elevated, reflex second test in 4-6 hrs FOR SENSITIVITIES SEE SPECIMEN [id number] STAIN = GRAM POSITIVE COCCI IN CLUSTERS GROWING IN BOTHAEROBIC AND ANAERIC [id number]/15/2144 CALLED TO BROOKE CARSON,RESULTS READBACK06/07/20 Called to BRIANNA B @ 1453 by Barbara Krishna. Results readback.STAPHYLOCOCCUS AUREUS Name Value Range Interpretation Code Description Data Evelin rce(s) Supporting Document(s) ID Date Data Source [id number] 06/09/2020 07:47:00 AM [facility] Special Instructions: Lab may order repe at test if initial test elevatedPhysician If elevated, reflex second test in 4-6 hrs FOR SENSITIVITIES SEE SPECIMEN [id number] STAIN = GRAM POSITIVE COCCI IN CLUSTERS GROWING IN BOTHAEROBIC AND ANAERIC [id number]/15/21 0744 CALLED TO BROOKE Hernandes BY ALLI,RESULTS READBACK06/07/20 Called to BRIANNA Kelley 9201 by Barbara Krishna. Results readback.STAPHYLOCOCCUS AUREUS Name Value Range Interpretation Code Description Data Evelin rce(s) Supporting Document(s) TRIMETHOPRIM/SULFAMETHOXAZOLE <0.5/9.5 Andre sceptible. Indicates for microbiology susceptibilities only. [facility] Amoxicillin+Clavulanate [Susceptibility] by Minimum inhibitory concentration (GUY) <4/2 Susceptible. Indicates for microbiology s usceptibilities only. [facility] Ampicillin [Susceptibility] by Minimum inhibitory concentration (GUY) >8 Resistant. Indicates for microbiology susceptibilities only. [facility] Ampicillin+Sulbactam [Susceptibility] by Minimum inhib itory concentration (GUY) <8/4 Susceptible. Indicates for microbiology suscepti bilities only. [facility] Cefazolin [Susceptibility] by Minimum inhibitory concentration ( GUY) <4 Susceptible. Indicates for microbiology susceptibilities only. [facility] Ciprofloxacin [Susceptibility] by Minimum inhibitory concentrati on (GUY) <1 Susceptible. Indicates for microbiology susceptibilities only. [facility] Clindamycin [Susceptibility] by Minimum inhibitory concentration (GUY) <0.5 Susceptible. Indicates for microbiology susceptibilities only. [facility] Erythromycin [Susceptibility] by Minimum inhibitory concentratio n (GUY) <0.5 Susceptible. Indicates for microbiology susceptibilities only. [facility] Gentamicin [Susceptibility] by Minimum inhibitory concentration (GUY) <4 Susceptible. Indicates for microbiology susceptibilities only. [facility] Oxacillin [Susceptibility] by Minimum inhibitory concentration ( GUY) 0.5 Susceptible. Indicates for microbiology susceptibilities only. [facility] Penicillin [Susceptibility] by Minimum inhibitory concentration (GUY) >8 Resistant. Indicates for microbiology susceptibilities only. [facility] Tetracycline [Susceptibility] by Minimum inhibitory concentratio n (GUY) <4 Susceptible. Indicates for microbiology susceptibilities only. [facility] Vancomycin [Susceptibility] by Minimum inhibitory concentration (GUY) 2 Susceptible. Indicates for microbiology susceptibilities only. [facility] Levofloxacin [Susceptibility] by Minimum inhibitory concentratio n (GUY) <1 Susceptible. Indicates for microbiology susceptibilities only. [facility] Moxifloxacin [Susceptibility] by Minimum inhibitory concentratio n (GUY) <0.5 Susceptible. Indicates for microbiology susceptibilities only. [facility] ID Date Data Source [id number] 06/07/2020 02:51:00 PM [facility] Called to BRIANNA Drois @ 2909 by Barbara Krishna. Results read back.The FilmArray BCID Panel is a qualitative multiplexednucleic acid-based test - PCRNormal results for each test is "Not detected"The BCID panel detects KPC,mecA,Jareth/Bresistance,enterococcus,L.monocytogenes,Staphlococcus,S.aureus,St reptococcus,GRP B, GRP A, S.pneumoniae,A.baumanii,Enterobacteriaceae,E.cloacae complex,E.coli,K.oxytoca,K .pneumoniae,Proteus,S.marcescens,H.influenzae,N.meningitidis,P.aeruginosa,C. albicans,C.glabrata ,C.krusei,C.parapsilosis,C.tropicalisTraditional Culture ID and Sensitivities will still beperformed on all positive blood cultures.The Film[employer] BCID panel may not distinguish mixed cultureswhen two or more species of the same genus or organism groupare present in a specimen.This test is a qualitative test and does not provide aquantitative value for the organism(s)in the sample.Antimicrobial resistance can occur via multiple mechanisms.A Not detected result for the FilmArray antimicrobialresistance gene assays does not indicate antimicrobialsusceptibility. Subculturing and standard susceptibilitytesting of isolates is requried to determine antimicrobialsusceptibility.Results from this test must be correlated with the clinicalhistory, epidemiological data,and otherdata available to theclinician evaluating the patient.Staphylococcus speciesStaphylococcus aureus detected Name Value Range Interpretation Code Description Data Eevlin rce(s) Supporting Document(s) ID Date Data Source [id number] 06/07/2020 02:42:00 AM [facility] Name Value Range Interpretation Code Description Data Evelin rce(s) Supporting Document(s) Troponin I.cardiac [Mass/volume] in Serum or Plasma Less Than 0.015 0.00-0.09 N [facility] Less than 0.09 NG/ML Negative0.10 - 0.77 NG/ML High Risk0.78 NG/ML or Greater PositiveThe WHO defined the cutoff (definition for diagnosis of IA)for this method as 0.78 ng/ml. ID Date Data Source [id number] 06/06/2020 10:24:00 PM [facility] Name: JAGJIT IBARRA : 1960 Age: 60 MR#: [id number] Admit Date: 06/06/20 Provider: Blaise Jauregui Room #: 292 Consulting Provider: Dictation Date: 06/06/20 History Physical ADDENDUM: Addendum Addendum Note: Notified by Nursing staff that Pt was febrile with oral temp of 101.2F just prior to 0200 on 06/07/2020. Pt continues to have L sided CP w/o radiation, diaphoresis or dizziness. Pt VS reviewed HR >90, BP in hypertensive range, RR WNL and febrile. 2/4 SIRS criteria met. Blood culture with lactic acid and UA w/ reflex culture ordered. Lactic acid resulted 1.9, BC and UA pending at this time. Given Pt is febrile with chest pain CT ABD/pelvis ordered, ECHO ordered, Vancomycin loading dose ordered, Zosyn ordered, Tylenol ordered Morphine PRN ordered for his chest pain Repeat troponin negative. Pt is SIRS positive without definitive source of infection. Currently working up Pt for endocarditisvs urinary vs abdominopelvic source. As Pt is not hypotensive or showing signs of end organ dysfunction he does not meet severe sepsis or septic shock criteria. 37 min spent interviewing the patient, reviewing medical records, and developing the plan. Attending physician is Dr. Pineda. They were briefed on the patient, assisted with development of the plan, and were available for consult. Note was transcribed using prolliea phone. The note was reviewed for accuracy however, some grammatical or wording mistakes may be present given the nature of dictation. Please contact provider for clarification if needed Addended by: <Electronically signed by Blaise CLEMENT> 06/07/20 0353 Addendum Cosigners: <Electronically signed by Chilo Pineda MD> 06/07/20 0729 D: TRI 06/07/20 0353 T: TRI 06/07/20 0353 CC: HPI Date of service Date of service:: 06/06/20 History of Present Illness Nurse screening for coronavirus: Recent Travel outside the country (where) Has patient experienced No coronavirus symptoms Chief Complaint: Chest pain Emergency Room stated complaint: Cardiovascular Admitted From: Emergency Dept Primary (Admitting) Diagnosis: Chest pain Source of information: Patient Place Event/Injury Occurred: Reports home HPI Free Text/Narrative:: 60y/o Male patient presented to [facility] via EMS for left-sided chest pain that began approx 1 hr prior to calling EMS. Pt reported CP 9/10 with radiation to L arm with associated diaphoresis and lightheadedness at time of calling EMS. Pain currently 7/10, localized to anterior L chest with resolution of diaphoresis and radiation. That began approximately 1 hour prior to calling EMS. Past medical history significant forCAD with stent x2, pulmonary embolism, DVT, Cactus filter, AICD/pacemaker, diabetes mellitus. Patient was evaluated as outpatient today by cardiology, Dr. Ledesma, the pacemaker/AICD was interrogated and the battery was found to be operational. Per patient report and cardiology report they are aware of a reported syncopal episode on 06/05/2020. 325 mg of aspirin by EMS prior to his arrival in the emergency department, nitro was not administered due to inability to gain IV access by EMS. Pt evaluated in ED by hospitalist provider. Pt c/o 7/10 CP as listed above w/o radiation. Pt endorses resolution of radiation of pain, dizziness and diaphoresis at this time. Pt denies head trauma, BRADLEY, vision change, neck pain, difficulty swallowing, sore throat, SOB, N/V/D, abd pain, flanck pain, urinary symptoms, change in bowel patterns, blood in uring/stool, pain/weakness in upper/lower extremities or any other concerns at this time. Comprehensive 10 point review of systems completed. Negative or noncontributory unless listed abovein HPI. Emergency department evaluation and treatment consisted of laboratory studies, imaging, medication management and cardiology consultation: Labs:CBC-WBC,8., H/H 12.3/36.3, Plt 208. CMP significant for BUN/Order Dispatcher 16/1.5, AST66,ALT70, Albumin 2.9, BNP 345, Glucose 323, Troponin <0.015 EKG- NSR, 93bpm, LAD, No pathologic ST/Twave abnormality, poor r wave progression in precordial leads Imaging: CTA Chest- There is no obvious evidence for a large pulmonary embolus. Although, the study is limited due to poor opacification of the pulmonary arteries. There is a trace pericardial effusion Medication management- Nitro drip initiated on arrival in ED and transitioned to 1" Nitro paste prior to my evaluation in ED Morphine 4mg IV x1 Nitro 0.4mg SL x1 Insulin regular 5u sq x1 Cardiology consult: From Dr Nichols ED attending note: "[address] payam COLEMAN -patient's pacemaker interrogated showed no abnormality explanatory of a battery failure or of a arrhythmia causative of a syncopal episode. Patient's ejection fraction has improved to near normal and he is scheduled to see the EPS people on June 11 to decide whether the aicd is to be continued or removed.. However since he is having atypical chest pain admitted overnight to rule out and consult them in the morning for further ins tructions Allergies/Home Meds Allergies Allergy/AdvReac Type Severity Reaction Status Date / Time nifedipine [From Procardia] Allergy Mild Taste Verified 06/06/20 22:08 Changes cyclobenzaprine AdvReac Mild Anxiety Verified 06/06/20 22:08 [From Flexeril] prochlorperazine AdvReac Mild Anxiety Verified 06/06/20 22:08 [From Compazine] Home Medications Medication Instructions Recorded Confirmed Last Taken Type aspirin 81 mg PO DAILY 07/06/19 06/06/20 06/06/20 History nitroglycerin 0.4 mg SUBLINGUAL Q5MIN PRN 07/06/19 06/06/20 05/29/20 13:30 History o.4 mg aripiprazole 5 mg PO DAILY 07/07/19 05/29/20 05/29/20 07:00 History 5 mg atorvastatin 80 mg PO DAILY 07/07/19 06/06/20 06/05/20 History carvedilol 25 mg PO BID 07/07/19 06/06/20 06/06/20 History cholecalciferol (vitamin D3) 25 mcg PO DAILY 07/07/19 06/06/20 06/06/20 History duloxetine 60 mg PO DAILY 07/07/19 06/06/20 06/06/20 History folic acid 1 mg PO DAILY 07/07/19 06/06/20 06/06/20 History gabapentin 600 mg PO TID 07/07/19 06/06/20 06/06/20 History metformin 1,000 mg PO BID 07/07/19 06/06/20 06/06/20 History tamsulosin 0.4 mg PO DAILY 07/07/19 06/06/20 06/06/20 History Eliquis 5 mg PO BID 05/29/20 06/06/20 06/05/20 History amiodarone 200 mg PO BID #60 tab 05/31/20 06/06/20 Unknown Rx amiodarone 400 mg PO BID #24 tab 05/31/20 06/06/20 Unknown Rx cyanocobalamin (vitamin B-12) 500 mcg PO DAILY 05/31/20 06/06/20 06/06/20 History omega-3 fatty acids-vitamin E 1,000 cap PO DAILY 05/31/20 06/06/20 06/06/20 History trazodone 100 mg PO HS 05/31/20 06/06/20 06/06/20 History pen needle, diabetic [BD #10 ea 06/01/20 06/06/20 Unknown Rx Ultra-Fine Orig Pen Needle] PFSH Medical History Deep vein thrombosis Diabetes mellitus Malka filter in place Hypertension Myocardial infarction Pacemaker Spinal fusion failure Stroke Surgical History H/O knee surgery Hx of heart artery stent Hx of neck surgery Family History Father Cancer Mother Cancer Brother Cancer Social History (Reviewed @ 22:47 by RACQUEL Romero) Does the Patient have a Healthcare Proxy: No Does Patient have a DNR?: No Does Patient have a Living Will?: No Does the Patient have a MOLST?: No Advance Directives on File or in chart?: No Hx Recent Travel (where): No Smoking Status: Current every day smoker Sickle cell Sickle Cell Screening:: Not indicated Vital Signs and I O Vitals and I O: Vital Signs last 12 hours Temp Pulse Resp BP Pulse Ox 06/06/20 21:41 129/58 06/06/20 19:36 94 18 100 06/06/20 19:32 96 153/76 06/06/20 19:21 91 144/79 06/06/20 19:01 98.8 F 92 20 144/79 96 Intake Output Last 24 Hours 06/04/20 06/05/20 06/06/20 23:59 23:59 23:59 Current Weight 282 lb Height,Weight BMI: Ht Wt BMI Current Height 6 ft Current Weight 282 lb Results Results: 06/06/20 19:42 06/06/20 19:42 Laboratory Results Last 24 hours 06/06/20 19:42: WBC 8.0, RBC 4.19 L, Hgb 12.3 L, Hct 36.3 L, MCV 86.6, MCH 29.4, MCHC 33.9, RDW 12, Plt Count 208, MPV 10.0, Immature Gran % (Auto) 0.8, Neut % (Auto) 77.9 H, Lymph % (Auto) 11.1 L, Mccone % (Auto) 8.5, Eos % (Auto) 1.3, Baso % (Auto) 0.4, Lymph # (Auto) 0.9, Abs Immat Gran (auto) 0.1, Add Manual Diff No, Absolute Neutrophils 6.2, Monocytes # 0.7, Absolute Eosinophils 0.1, Absolute Basophils 0.0 06/06/20 19:42: PT 11.7, INR 1.1, PTT ([place]) 27.3 06/06/20 19:42: Sodium 133, Potassium 3.5, Chloride 99, Carbon Dioxide 27, Anion Gap 11, BUN 16, Creatinine 1.5 H, GFR Calculation 48, Glucose 323 H, Calcium 8.6, Total Bilirubin 1.1, AST 66 H, ALT70 H, Alkaline Phosphatase 127, Creatine Kinase 56, CK-MB (CK-2) Less than 1.0, CK- MB (CK-2) % Not Reported, Troponin I Less than 0.015, Serum Total Protein 6.9, Albumin 2.9 L, Lipase 130 06/06/20 19:42: Magnesium 1.8, Hxl-M-Yjyjrjecice Pept 345.00 H, TSH 2.05 Microbiology 06/06/20 20:50 Nasopharyngeal Influenza-Like Illness (PCR) - Final No Organisms Detected 06/06/20 20:50 Nasopharyngeal - Final Exam Const General: cooperative, comfortable and no acute distress Nutritional Appearance: obese Orientation: alert and oriented x3 HENMT Head: normal to inspection, normocephalic and atraumatic Face and sinus: normal facial exam Mouth: moist mucous membranes Teeth and gingiva: poor dentition Eyes General: appearance normal, both eyes and all related structures Pupils: PERRL EOM: EOM intact bilaterally Neck Neck: full ROM Thyroid: nontender Resp Effort Inspection: normal respiratory effort and able to speak in complete sentences Auscultation: clear to auscultation bilaterally, no crackles, no rales and no rhonchi Cardio Rate: regular rate Rhythm: regular rhythm Heart Sounds: S1 normal, S2 normal and murmur systolic Pulses: radial pulses present GI Palpation: soft, not firm, no guarding and nontender Auscultation: normal bowel sounds Skin Lesions: no lesions Rashes: no rashes Neuro General: patient alert Cranial Nerves: CN's II-XII intact bilaterally Motor: strength 5/5 throughout Extrem General: normal to inspection, full ROM and no pedal edema Psych Affect: normal affect Attitude: cooperative Assessment/Plan A P Free Text/Narrative :: 60-year-old male patient will be brought into [facility] on telemetry for observation for atypical chest pain. Plan 1. Chest pain -Continue Nitropaste, telemetry, serial troponins -Follow-up with [facility]ology in the morning per their recommendation -Continue aspirin 1 mg 2. Diabetes type 2 -Continue Metformin -Sliding scale insulin with Accu-Cheks ordered due to hyperglycemia at time of presentation to emergency department 3. AICD/pacemaker -Patient pending outpatient evaluation 11 June 2020 for battery replacement versus removal 4. History of DVT/PE -Malka filter in place -Continue Eliquis 5. A. fib -EKG and telemetry shows normal sinus rhythm at this time -Continue Eliquis and amiodarone 6. Hyperlipidemia - Continue home medication 7. Hypertension -Continue home medication 8. GERD -Protonix IV for prophylaxis 9. Chronic pain -Continue gabapentin DVT prophylaxis with Eliquis Stress ulcer prophylaxis with Protonix Patient is a full code 47 min spent interviewing the patient, reviewing medical records, and developing the plan. Attending physician is Dr. Pineda. They were briefed on the patient, assisted with development of the plan, and were available for consult. Note was transcribed using prolliea phone. The note was reviewed for accuracy however, some grammatical or wording mistakes may be present given the nature of dictation. Please contact provider for clarification if needed Care plan: Plan of care discussed with patient and or family, Patient encouraged to ask questions about plan and Patient agrees with plan of care Dictated by: <Electronically signed by Blaise CLEMENT> Blaise CLEMENT 06/06/20 2300 Blaise Jauregui SIGNATURE DA Report Cosigners: D: TRI 06/06/202223 T: TRI 06/06/202223 CC: Name Value Range Interpretation Code Description Data Evelin rce(s) Supporting Document(s) ID Date Data Source [id number] 06/07/2020 06:16:00 AM [facility] [place] DATE was changed from 06/07/20 to 06/06/20@ carl BEASLEY.THIS RP PANEL TESTS FOR SARS-CoV-2,(COVID-19)FilmArray Respiratory Panel is a Multiplexed NAAT-PCR testNORMAL VALUE FOR ALL 20 PATHOGENS IS "NOT DETECTED".The FilmArray RP panel detects Influenza A H1,H3 [id number] H1 viruses,Influenza B virus, Respiratory syncytialvirus, Human metapneumovirus,Parainfluenza virus 1,2,3, and4, Adenovirus,Rhino/Enterovirus,Coronavirus HKU 1, Nl63,OC43, and 229E,Bordetella pertussis, Bordetellaparapertussis, Mycoplasma pneumoniae and Chlamydiapneumoniae, SARS-CoV-2 (COVID 19).THIS TEST HAS NOT BEEN EVALUATED FOR USE WITH SPECIMENSOTHER THAN NASOPHARYNGEAL SWAB SPECIMENS.THE PERFORMANCE OF THIS TEST HAS NOT BEEN ESTABLISHED FORPATIENTS WITHOUT SIGNS AND SYMPTOMS OF RESPIRATORYINFECTION.RESULTS FROM THIS TEST MUST BE CORRELATED WITH CLINICALHISTORY, EPIDEMIOLOGICAL DATA , AND OTHER DATA AVAILABLE TOTHE CLINICIAN EVALUATING THE PATIENT.THE PERFORMANCE OF THE FilmARRAY RP HAS NOT BEEN EST ABLISHEDIN INDIVIDUALS WHO RECEIVED INFLUENZA VACCINE. RECENTADMINISTRATION OF A NASAL INFLUENZA VACCINE MAY CAUSE AFALSE POSITIVE RESULT FOR INFLUENZA A AND/OR B.NEGATIVE RESULTS SHOULD NOT BE USED THE SOLE BASIS FORDIAGNOSIS, TREATMENT, OR OTHER MANAGEMENT DECISIONS.NEGATIVE RESULTS IN THE SETTING OF A RESPIRATORY ILLNESSMAYBE DUE TO INFECTION WITH PATHOGENS THAT ARE NOT DETECTEDBY THIS TEST OR LOWER RESPIRATORY TRACT INFECTION THAT ISNOT DETECTED BY A NASOPHARYNGEAL SWAB SPECIMEN.SARS-CoV-2 RNA Resp Ql PARMJIT+probe Name Value Range Interpretation Code Description Data Evelin rce(s) Supporting Document(s) ID Date Data Source [id number] 06/06/2020 10:06:00 PM [facility] Bridget Ce is a rapid, automated qualita tive anddifferentiation of Influenza type A,B and [id number]-[id number]-RT-PCR testNORMAL VALUE IS "NOT DETECTED".Limitations of the bridget ce Influenza A/B & [id number]-GTG-2wpwyf method.Modifications to manufacturers recommendation and proceduresmay alter performance of the test.Negative results do not preclude Influenza A,B or SARS- HUM6axpsgqbykf and should not be used as the sole basis fortreatment or other management decisions. Results from theCobas Ce Influenza A/B & COV2 should be interpeted inconjunction with other laboratory and clinical dataavailable to the clinician.False negative results may occur if a specimen is improperlycollected, transported or handled. False negatives may occurif inadequate numbers of organisms are present in thespecimen.This test has not been evaluated for patients without signsand systoms of influenza and SARS-COV-2 infection.This assay has not been evaluated for patients receivingintranasal administered infl uenza vaccine.This assay has not been evaluated for immunocompromisedindividuals.This test cannot rule out diseases caused by other bacterialor viral pathogens.SARS-CoV-2 RNA Resp Ql PARMJIT+probe Name Value Range Interpretation Code Description Data Evelin rce(s) Supporting Document(s) ID Date Data Source [id number] 06/06/2020 10:06:00 PM [facility] Bridget Ce is a rapid, automated qualita tive anddifferentiation of Influenza type A,B and RKRI-[id number]-RT-PCR testNORMAL VALUE IS "NOT DETECTED".Limitations of the bridget ce Influenza A/B & XYYF-YYC-8burli method.Modifications to manufacturers recommendation and proceduresmay alter performance of the test.Negative results do not preclude Influenza A,B or SARS- KMA9tufiqaeorl and should not be used as the sole basis fortreatment or other management decisions. Results from theCobas Ce Influenza A/B & COV2 should be interpeted inconjunction with other laboratory and clinical dataavailable to the clinician.False negative results may occur if a specimen is improperlycollected, transported or handled. False negatives may occurif inadequate numbers of organisms are present in thespecimen.This test has not been evaluated for patients without signsand systoms of influenza and SARS-COV-2 infection.This assay has not been evaluated for patients receivingintranasal administered infl uenza vaccine.This assay has not been evaluated for immunocompromisedindividuals.This test cannot rule out diseases caused by other bacterialor viral pathogens.SARS-CoV-2 RNA Resp Ql PARMJIT+probe Name Value Range Interpretation Code Description Data Evelin rce(s) Supporting Document(s) Extended hours FLU/COV2 NAAT CE L [facility] ID Date Data Source [id number] 06/06/2020 08:14:00 PM [facility] [address] [place] [address] [phone] NAME SEX PT STATUS ACCOUNT NUMBER JAGJIT IBARRA REG ER [id number] ORDERING PHYSICIAN LOCATION MEDICAL RECORD NO. Isaías Nichols MD ER [id number] ATTENDING PHYSICIAN DATE OF DATE OF EXAM/TIME Doctor Provided,No Family 1960 06/06/201928 TYPE / EXAM CTA Chest non-card W/ or w/o REASON FOR EXAM CP Hx PE IA Clinical History/Indication for Exam: CP Hx PE IA CT ANGIOGRAPHY CHEST WITHOUT AND WITH INTRAVENOUS CONTRAST INDICATION: Chest pain TECHNIQUE: Axial computed tomographic angiography images of the chest without and with intravenous contrast. This CT exam was performed using one or more of the following dose reduction techniques: automated exposure control, adjustment of the mA and/or kV according to patient size, and/or use of iterative reconstruction technique. MIP reconstructed images were created and reviewed. COMPARISON: 07/06/2019 FINDINGS: Pulmonary arteries: There is no obvious evidence for a large pulmonary embolus. Although, the study is limited due to poor opacification of the pulmonary arteries. Aorta: No acute findings. No thoracic aortic aneurysm. Lungs: Unremarkable. No mass. No consolidation. Pleural space: Unremarkable. No significant effusion. No pneumothorax. Heart: There is a trace pericardial effusion There is coronary artery calcifications present No evidence of RV dysfunction. Bones/joints: There is degenerative changes within the thoracic spine No acute fracture. No dislocation. Soft tissues: Unremarkable. Lymph nodes: Unremarkable. No enlarged lymph nodes. Tubes, lines and devices: There is an electronic device within the left anterior chest wall IMPRESSION: 1. There is no obvious evidence for a large pulmonary embolus. Although, the study is limited due to poor opacification of the pulmonary arteries. 2. There is a trace pericardial effusion Automatic exposure control was used as a dose lowering technique. Contrast Type: Isovue 370. Contrast Volume: 75 mL REPORT SIGNATURE ON FILE 06/06/2020 (20:14 Eastern Time ) Signed by: Reji Reece M.D. Reported By Reji Reece MD on 06/06/202013 Signed By Reji Reece MD on 06/06/202013 Date Time CC: No Family PHYS Provided; Reji Reece MD Techn: ROCAEL Trans Dt/Tm: Trans by: DT Prt Dt/Tm: : Total DLP = 397.00 mGy-cm : Total Radiation Dose = 2.3423 mSv Lifetime Dose: 22.5824 mSv Name Value Range Interpretation Code Description Data Evelin rce(s) Supporting Document(s) ID Date Data Source [id number] 06/06/2020 08:08:00 PM EST [facility] ED Physician Documentation NAME: JAGJIT IBARRA : 1960 AGE: 60 MR#: [id number] SERVICE DATE: 06/06/[address]: Isaías Nichols MD PRIMARY CARE DR: No Family PHYS Provided ROOM#: [facility] (Adult, General) General Chief Complaint: Cardiovascular Stated Complaint: HIGH BLOOD SUGAR, HEART PROBLEMS Resident LT, travel outisde home, exposure to hot tubs:: No Time Seen by Provider: 06/06/20 19:09 Source: patient and old records Exam Limitations: clinical condition History of Present Illness Narrative: 60-year-old white male with history of coronary artery diseasestents x2 AICD type 2 diabetes hypertension hypercholesterolemia and obesity seen by Dr. 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 Patient did have a syncopal episode last night which he informs me Dr. Ledesma is aware. Approximately an hour prior to calling EMS patient did have an episode of sharp stabbing left anterior chest pain with radiation to the left upper extremity with concomitant shortness of breath dizziness near syncope diaphoresis and mild nausea. He had 325 mg of aspirin given by EMS on route no nitro as a could not establish a line. Patient is alert cooperative and still states his pain is the same at about a 7 out of 10. he also has a history of DVT and a Malka filter and a remote PE. It is on Eliquis and aspirin. ROS otherwise acutely noncontributory at present time. PMH PSH and EMR data is appreciated , , History of Present Illness Timing/Duration: 1 hour and constant Allergies/Home Meds Allergies Allergy/AdvReac Type Severity Reaction Status Date / Time nifedipine [From Procardia] Allergy Mild Taste Verified 05/29/20 14:33 Changes cyclobenzaprine AdvReac Mild Anxiety Verified 05/29/20 14:33 [From Flexeril] prochlorperazine AdvReac Mild Anxiety Verified 05/29/20 14:33 [From Compazine] Home Medications Medication Instructions Recorded Confirmed Last Taken Type aspirin 81 mg PO DAILY 07/06/19 05/29/20 05/29/20 07:00 History 81 mg nitroglycerin 0.4 mg SUBLINGUAL Q5MIN PRN 07/06/19 05/29/20 05/29/20 13:30 History o.4 mg aripiprazole 5 mg PO DAILY 07/07/19 05/29/20 05/29/20 07:00 History 5 mg atorvastatin 80 mg PO DAILY 07/07/19 05/31/20 05/29/20 07:00 History 40 mg carvedilol 25 mg PO BID 07/07/19 05/29/20 05/29/20 07:00 History 25 mg cholecalciferol (vitamin D3) 25 mcg PO DAILY 07/07/19 05/31/2021 07:00 History 1000 mg duloxetine 60 mg PO DAILY 07/07/19 05/29/20 05/29/20 07:00 History 60 mg folic acid 1 mg PO DAILY 07/07/19 05/29/20 05/29/20 07:00 History 1 mg gabapentin 600 mg PO TID 07/07/19 05/29/20 05/29/20 07: 00 History 600 mg metformin 1,000 mg PO BID 07/07/19 05/29/20 05/29/20 07:00 History 1000 mg tamsulosin 0.4 mg PO DAILY 07/07/19 05/29/20 05/29/20 07:00 History 0.4 mg Eliquis 5 mg PO BID 05/29/20 05/31/20 05/31/20 08:16 History 5 mg amiodarone 200 mg PO BID #60 tab 05/31/20 Unknown Rx amiodarone 400 mg PO BID #24 tab 05/31/20 Unknown Rx cyanocobalamin (vitamin B-12) 500 mcg PO DAILY 05/31/20 05/31/20 05/30/20 07:00 History 500 mcg omega-3 fatty acids-vitamin E 1,000 cap PO DAILY 05/31/20 05/31/20 05/30/20 07:00 History 1 cap trazodone 100 mg PO HS 05/31/20 05/31/20 05/29/20 21:00 History 100 mg pen needle, diabetic [BD #10 ea 06/01/20 Unknown Rx Ultra-Fine Orig Pen Needle] Medication list updated and reviewed:: Yes Pain Assessment Pain Location: As above ER plan Plan of care and ER treatment: Patient encouraged to ask questions about plan and ER treatments and Patient agrees with ER plan of care Plan: See ED orders PMH (from Triage) Patient Medical History PMH Reviewed/Updated as Needed: Yes PMH/PSH from Triage: Medical History (Updated 05/30/20 @ 11:57 by Christo Llamas MD) Deep vein thrombosis (Medical) I82.409 Diabetes mellitus (Medical) E11.[address] (Medical) Z95.828 Hypertension (Medical) I10 Myocardial infarction (Medical) I21.9 Pacemaker (Me dical) Z95.0 Spinal fusion failure (Medical) T84.9XXA Stroke (Medical) I63.9 2016- received tpa Surgical History (Updated 07/06/19 @ 14:29 by Jayne Norman RN) H/O knee surgery (Surgical) Z98.890 Hx of heart artery stent (Surgical) Z95.5 Hx of neck surgery (Surgical) Z98.890 Hx Drug Resistant Infections Hx Other Resistant Infection?: No Isolation: Andrés pillaistephanie abraham Hx Recent Travel Out of the country within 10 days (where): No Hx Fever with a rash?: No Nurse screening for coronavirus: Recent Travel outside the No country (where) Has patient experienced No coronavirus symptoms Social History Are you in a relationship with/Does anyone hit you, yell/swear at you, steal from you?: No Substance Use Smoking Status: Current every day smoker Tobacco Use Years smoked:: 3 Hx Chewing Tobacco Use: No Vaccination History Hx/Date of Tetanus, Diphtheria Vaccination: Yes Hx/Date of Influenza Vaccination: Yes Hx/Date of Pneumococcal Vaccination: Yes PFSH Medical History (Updated 05/30/20 @ 11:57 by Christo Llamas MD) Deep vein thrombosis Diabetes mellitus Cactus filter in place Hypertension Myocardial infarction Pacemaker Spinal fusion failure Stroke Surgical History H/O knee surgery Hx of heart artery stent Hx of neck surgery Family History (Updated 05/29/20 @ 23:03 by Delfina Dickerson) Father Cancer Mother Cancer Brother Cancer Social History Does the Patient have a Healthcare Proxy: No Does Patient have a DNR?: No Does Patient have a Living Will?: No Does the Patient have a MOLST?: No Advance Directives on File or in chart?: No Hx Recent Travel (where): No Smoking Status: Current every day smoker ROS Review of Systems Constitutional: Denies fever, chills, sweats and malaise Eyes: Denies vision change and eye pain ENT: Denies mouth pain, mouth swelling, dental pain, ear pain, nasal pain, throat pain, throat swelling and recent head trauma Respiratory: Reports SOB at rest, SOB, pleuritic pain and exposures; Denies cough, orthopnea, stridor, wheezing and hemoptysis Cardiovascular: Reports chest pain, edema, light headedness and syncope; Denies palpitations, orthopnea, paroxysmal noc dyspnea, dyspnea on exertion, leg cramps w/walking and pain in feet/toes at night Gastrointestinal: Denies nausea, vomiting, abdominal pain, diarrhea, constipation, hematemesis, black tarry stools, melena, hematochezia, coffee grounds emesis and hx of jaundice Genitourinary-Male: Denies dysuria, frequency, hematuria, retention, urgency and penile discharge Musculoskeletal: Reports muscle pain; Denies neck pain, shoulder pain, arm pain and hand pain Skin/Breasts: Denies rash and pruritus Neurologic: Denies headache, incoordination, change in speech, confusion and abnormal gait Psychiatric: Reports No Symptoms/Complaints Endocrine: Denies Excessive sweating, Intolerance to cold, Polydipsia, Polyuria and Unexplained weight loss Hematological/Lymphatic: Reports easy bruising; Denies easy bleeding Allergic/Immunologic: Denies rash, night sweats, wheals and flare Physical Exam General General appearance: alert, anxious and in distress (mild) Head Head exam: Present atraumatic, normocephalic and normal inspection Eye Eye exam: Present normal apperance, PERRL and EOMI; Absent scleral icterus Pupils: Present normal accommodation ENT ENT exam: Present normal exam, normal orophraynx and mucous membranes moist Neck Neck exam: Present normal inspection and supple; Absent tenderness, meningismus and lymphadenopathy Respiratory Respiratory exam: Present normal lung sounds bilaterally; Absent respiratory distress, chest wall tenderness and prolonged expiratory Cardiova scular Cardiovascular Exam: Present regular rate, normal rhythm, normal heart sounds and systolic murmur (mr); Absent rubs, gallop, clicks, JVD, S3 and S4 GI/Abdominal GI/Abdominal exam: Present Abd soft, bowel sounds present all quadrents, soft and normal bowel sounds; Absent distended, tenderness, guarding, rebound, rigid, organomegaly, bruit and pulsatile mass Rectal Rectal exam: Present deferred exam: Present other (deferred) Extremities Exam Extremities exam: Present capillary refill brisk and pedal edema; Absent tenderness, joint swelling and calf tenderness Back Exam Back exam: Present normal inspection and tenderness; Absent CVA tenderness (R), CVA tenderness (L), paraspinal tenderness and vertebral tenderness Neurological Exam Neurological exam: Present alert, oriented X3, CN II-XII intact and normal gait; Absent motor sensory deficit Psychiatric Psychiatric exam: Present normal affect and anxious Skin Skin exam: Present warm and dry; Absent cyanosis Vital Signs Vital Signs: Vital Signs 06/06/20 19:21 06/06/20 19:32 06/06/20 19:36 Pulse Rate 91 96 94 Respiratory Rate 18 Blood Pressure 144/79 153/76 O2 Sat by Pulse Oximetry 100 MDM (comprehensive) Lab Data Labs: 06/06/20 19:42 06/06/20 19:42 Laboratory Results Last 24 hours 06/06/20 19:42: WBC 8.0, RBC 4.19 L, Hgb 12.3 L, Hct 36.3 L, MCV 86.6, MCH 29.4, MCHC 33.9, RDW 12, Plt Count 208, MPV 10.0, Immature Gran % (Auto) 0.8, Neut % (Auto) 77.9 H, Lymph % (Auto) 11.1 L, Mccone % (Auto) 8.5, Eos % (Auto) 1.3, Baso % (Auto) 0.4, Lymph # (Auto) 0.9, Abs Immat Gran (auto) 0.1, Add Manual Diff No, Absolute Neutrophils 6.2, Monocytes # 0.7, Absolute Eosinophils 0.1, Absolute Basophils 0.0 06/06/20 19:42: PT 11.7, INR 1.1, PTT (Andra) 27.3 06/06/20 19:42: Sodium 133, Potassium 3.5, Chloride 99, Carbon Dioxide 27, Anion Gap 11, BUN 16, Creatinine 1.5 H, GFR Calculation 48, Glucose 323 H, Calcium 8.6, Total Bilirubin 1.1, AST 66 H, ALT70 H, Alkaline Phosphatase 127, Creatine Kinase 56, CK-MB (CK-2) Less than 1.0, CK-MB (CK-2) % Not Reported, Troponin I Less than 0.015, Serum Total Protein 6.9, Albumin 2.9 L, Lipase 130 06/06/20 19:42: Magnesium 1.8, Zlb-N-Vlrrsdyefwa Pept 345.00 H, TSH 2.05 EKG Data -: EKG Interpreted by Me (93 rsr old kailyn hutchins poor r progress nssts ( min change fr Jun 06, 2020) EKG Data Compared to previous EKG there's: no significant change Radiology Data Radiology impressions: CTA Chest - IMPRESSION: 1. There is no obvious evidence for a large pulmonary embolus. Although, the study is limited due to poor opacification of the pulmonary arteries. 2. There is a trace pericardial effusion Automatic exposure control was used as a dose lowering technique. Contrast Type: Isovue 370. Contrast Volume: 75 mL REPORT SIGNATURE ON FILE 06/06/2020 (20:14 Eastern Time ) Signed by: Reji Reece M.D. Medical Decision Making Free Text/Narative:: 2032 No change vss 2100 no change in vital signs sta ble [address] payam COLEMAN -patient's pacemaker interrogated showed no abnormality explanatory of a battery failure or of a arrhythmia causative of a syncopal episode. Patient's ejection fraction has improved to near normal and he is scheduled to see the EPS people on June 11 to decide whether the aicd is to be continued or removed.. However since he is having atypical chest pain admitted overnight to rule out and consult them in the morning for further instructions 2120 telecom arline Brown to telemetry obs - [place] , Differential Diagnosis Differential Diagnosis: Atypical CP MS v PE V CAD V Factiticious V other Critical Care Time Critical Care Time Critical Care Time: Yes ED Critical Care Time - [facility]: 31-74 Minutes Total Critical Care Time: 35 Critical Care Time: Complex pt with CP DDX w/u extensive rx dispo Plan Plan Plan: per above below data Visit Medications Administered ED medications:: Medications Gen veronique Name Dose Route Start Last Admin Trade Name Freq PRN Reason Stop Dose Admin Nitroglycerin 0.4 mg 06/06/20 19:24 06/06/20 19:32 Nitroglycerin 0.4 Mg Subl SL 0.4 mg Q5M PRN Administration CHEST PAIN Discontinued Medications Generic Name Dose Route Start Last Admin Trade Name Freq PRN Reason Stop Dose Admin Nitroglycerin/Dextrose 50,000 mcg in 250 mls @ 3 mls/hr 06/06/20 19:25 06/06/20 19:38 Nitroglycerin 50 Mg/D5w 250 Ml IVC 06/10/20 06:44 10 mcg/min TITR ONE 3 mls/hr Administration Protocol 10 M CG/MIN Insulin Human Regular 5 units 06/06/20 20:39 06/06/20 20:49 Insulin Regular, Human (100 Units/Ml) 3 Ml Vial SQ 06/06/20 20:40 5 unit 1T ONE Administration Protocol Morphine Sulfate 4 mg 06/06/20 19:24 06/06/20 19:36 Morphine Sulfate 4 Mg/Ml Sdv IVP 06/06/20 19:25 4 mg 1T ONE Administration Nitroglycerin Confirm 06/06/20 19:20 06/06/20 19:21 Nitroglycerin 0.4 Mg Subl Administered 06/06/20 19:21 0.4 mg Dose Administration 0.4 mg SL .STK-MED ONE Discharge Plan Admission/Discharge Dx Primary (Admit) Diagnosis: Atyp Chest Pain / Syncope (per pt) / Hx IA stents x 2/ Hx PE (per pt) ED Provider: Isaías Nichols ED Status: Decision to Admit/Consult Time Seen by Provider: 06/06/20 19:09 Triaged At: 06/06/20 19:01 Condition Condition: Fair Discharge Detail Disposition: Admit to [facility] New Prescriptions: No Action nitroglycerin 0.4 mg tablet, sublingual 0.4 mg sublingual Q5MIN PRN (Reason: Chest Pain) RF: 0 aspirin 81 mg Tablet,Chewable 81 mg PO DAILY RF: 0 atorvastatin 40 mg Tablet 80 mg PO DAILY RF: 0 carvedilol 25 mg Tablet 25 mg PO BID RF: 0 gabapentin 600 mg Tablet 600 mg PO TID RF: 0 tamsulosin 0.4 mg Capsule 0.4 mg PO DAILY RF: 0 metformin 1,000 mg Tablet 1,000 mg PO BID RF: 0 folic acid 1 mg Tablet 1 mg PO DAILY RF: 0 aripiprazole 5 mg Tablet 5 mg PO DAILY RF: 0 cholecalciferol (vitamin D3) 1,000 unit/drop Drops 25 mcg PO DAILY RF: 0 duloxetine 60 mg Capsule, Delayed Rel Sprinkle 60 mg PO DAILY RF: 0 Eliquis 5 mg Tablet 5 mg PO BID RF: 0 cyanocobalamin (vitamin B-12) 500 mcg Tablet 500 mcg PO DAILY RF: 0 trazodone 100 mg Tablet 100 mg PO HS RF: 0 omega-3 fatty acids-vitamin E 1,000 mg Capsule 1,000 cap PO DAILY RF: 0 amiodarone 200 mg Tablet 400 mg PO BID Qty: 24 RF: 0 amiodarone 200 mg tablet 200 mg PO BID Qty: 60 RF: 0 (DME) pen needle, diabetic [BD Ultra-Fine Orig Pen Needle] 29 gauge x 1/2" needle See Rx Instructions .ROUTE .MEDSUPPLY Qty: 10 RF: 0 *Discharge Patient* Discharge Orders: Provider hand off (NOW); Ordered 06/06/20 Ordered By: Isaías Nichols Report Signers: <Electronically signed by Isaías Nichols MD> Isaaís Nichols MD 06/06/20 2133 Isaías Nichols MD SIGNATURE DA Report Cosigners: D: REBECCA 06/06/202007 T: REBECCA 06/06/202007 CC: No Family PHYS Provided Name Value Range Interpretation Code Description Data Evelin rce(s) Supporting Document(s) ID Date Data Source [id number] 06/06/2020 08:32:00 PM [facility] Name Value Range Interpretation Code Description Data Evelin rce(s) Supporting Document(s) Magnesium [Mass/volume] in Serum or Plasma 1.8 mg/dL 1.3-2.7 [facility] ID Date Data Source [id number] 06/06/2020 08:32:00 PM [facility] Name Value Range Interpretation Code Description Data Evelin rce(s) Supporting Document(s) Thyrotropin [Units/volume] in Serum or Plasma by Detec tion limit <= 0.005 mIU/L 2.05 u[iU]/mL 0.35-5.50 [facility] Date Data Source [id number] 06/06/2020 08:32:00 PM [facility] Name Value Range Interpretation Code Description Data Evelin rce(s) Supporting Document(s) Natriuretic peptide.B prohormone N-Terminal [Mass/volu me] in Serum or Plasma 345.00 pg/mL 0.00-[address] [facility] ID Date Data Source [id number] 06/06/2020 07:56:00 PM [facility] Anticoagulant or Thrombolytic medication : Other Po Anticoagulant Name Value Range Interpretation Code Description Data Evelin rce(s) Supporting Document(s) Leukocytes [#/volume] in Blood by Automated count 8.0 10*3/uL 4.45-10 .71 N [facility] Erythrocytes [#/volume] in Blood by Automated count 4.19 10*6/uL 4.3-6.1 Below low normal [facility] Hemoglobin [Moles/volume] in Blood 12.3 g/dL 13-18 Below low no rmal [facility] Hematocrit [Volume Fraction] of Blood by Automated count 36.3 % 42-52 Below low normal [facility] Erythrocyte mean corpuscular volume [Ent itic volume] in Cord blood by Automated count 86.6 fL 80-96 N [facility] Erythrocyte mean corpuscular hemoglobin [Entitic mass] by Automated count 29.4 pg 27-31 N [facility] l Erythrocyte mean corpuscular hemoglobin concentration [Mass/volume] in Cord blood 33.9 g/dL 33-37 N [facility] Erythrocyte distribution width [Entitic volume] by Automated count 12 % 11-15 N [facility] Platelets [#/volume] in Blood by Automated count 208 10*3/uL 130-472 N [facility] Platelet mean volume [Entitic volume] in Blood 10.0 fL 9.1-13.1 N [facility] Neutrophils/100 leukocytes in Blood by Automated count 77.9 % 41-77 Above high normal [facility] Neutrophils [#/volume] in Blood by Automated count 6.2 U 1.7-7.6 N [facility] Lymphocytes/100 leukocytes in Blood by Automated count 11.1 % 14-46 Below low normal [facility] Lymphocytes [#/volume] in Blood by Automated count 0.9 U 0.6-4.6 N [facility] Monocytes/100 leukocytes in Blood by Automated count 8.5 % 4-12 N [facility] Monocytes [#/volume] in Blood by Automated count 0.7 U 0.2-1.2 N [facility] Eosinophils/100 leukocytes in Blood by Automated count 1.3 % 0-7 N [facility] Eosinophils [#/volume] in Blood by Automated count 0.1 U 0.0-0.5 N [facility] Basophils/100 leukocytes in Blood by Automated count 0.4 % 0.4-1 .3 N [facility] Basophils [#/volume] in Blood by Automated count 0.0 U 0.0-0.2 N [facility] NUCLEATED RED BLOOD CELL 0 % [facility] NUCLEATED RED BLOOD CELL# 0 U [facility] Immature granulocytes [Presence] in Blood by Automated count 0-2 N [facility] Immature granulocytes [#/volume] in Blood by Automated count 0.1 U 0-0.1 N [facility] Manual Differential panel - Blood NO [facility] ID Date Data Source [id number] 06/06/2020 08:20:00 PM [facility] Anticoagulant or Thrombolytic medication : Other Po Anticoagulant Name Value Range Interpretation Code Description Data Evelin rce(s) Supporting Document(s) Prothrombin Time (Patient) 11.7 s 9.6-12.3 N [facility] INR 1.1 0.9-1.1 [facility] THE INR IS OPERATIONALLY DEFINED FOR RIKI SH PLASMA FROMPATIENTS STABILIZED ON ORAL ANTICOAGULANTS.ROUTINE ANTICOAGULANT THERAPY 2.0-3.0RECURRENT SYSTEMIC EMBOLISM/HEART VALVE REPLACEMENT 2.5-3.5 aPTT.lupus sensitive (LA screen) 27.3 s 22.7-31.6 N [facility] ID Date Data Source [id number] 06/06/2020 08:28:00 PM [facility] Anticoagulant or Thrombolytic medication : Other Po Anticoagulant Name Value Range Interpretation Code Description Data Evelin rce(s) Supporting Document(s) Urea nitrogen [Mass/volume] in Serum or Plasma 16 mg/dL 9-23 N [facility] Sodium [Moles/volume] in Serum or Plasma 133 mmol/L 132-146 N [facility] Potassium [Moles/volume] in Serum or Plasma 3.5 mmol/L 3.5-5.5 N [facility] Chloride [Moles/volume] in Serum or Plasma 99 mmol/L 99-109 N [facility] Carbon dioxide, total [Moles/volume] in Serum or Plasma 27 mmol/L 20 -31 N [facility] Anion gap in Serum or Plasma 11 mmol/L 8-16 N [facility] Glucose [Mass/volume] in Serum or Plasma 323 mg/dL 74-106 Above high normal [facility] Creatinine 1.5 mg/dL 0.5-1.1 Above high normal Health system Glomerular filtration rate/1.73 sq M.pre dicted [Volume Rate/Area] in Serum or Plasma 48 ml/min ABOVE 60 [facility] Alanine aminotransferase [Enzymatic acti vity/volume] in Serum or Plasma by With P-5'-P 70 U/L 10-49 Above high normal [facility] Aspartate aminotransferase [Enzymatic ac tivity/volume] in Serum or Plasma by With P-5'-P 66 U/L 0-33 Above high normal [facility] Alkaline phosphatase [Enzymatic activity/volume] in Serum or Plasma 127 U/L 45-129 N [facility] Calcium [Mass/volume] in Serum or Plasma 8.6 mg/dL 8.5-10.1 N [facility] Bilirubin.total [Mass/volume] in Serum or Plasma 1.1 mg/dL 0.3-1.2 N [facility] Albumin [Mass/volume] in Serum or Plasma by Bromocresol purple (BCP) dye binding method 2.9 g/dL 3.2-4.8 Below low normal [facility] Protein [Mass/volume] in Serum or Plasma 6.9 g/dL 5.7-8.2 N [facility] ID Date Data Source [id number] 06/06/2020 08:28:00 PM [facility] Anticoagulant or Thrombolytic medication : Other Po Anticoagulant Name Value Range Interpretation Code Description Data Evelin rce(s) Supporting Document(s) Lipase [Enzymatic activity/volume] in Serum or Plasma 130 U/L 73-3 93 N [facility] ID Date Data Source [id number] 06/06/2020 08:28:00 PM [facility] Anticoagulant or Thrombolytic medication : Other Po Anticoagulant Name Value Range Interpretation Code Description Data Evelin rce(s) Supporting Document(s) Creatine kinase [Enzymatic activity/volume] in Serum or Plasma 56 U /L 33-211 N [facility] Creatine kinase.MB [Enzymatic activity/volume] in Serum or P lasma Less Than 1.0 0.0-5.0 N [facility] @Report as less than lower limit ID Date Data Source [id number] 06/06/2020 08:28:00 PM EST [facility] Anticoagulant or Thrombolytic medication : Other Po Anticoagulant Name Value Range Interpretation Code Description Data Evelin rce(s) Supporting Document(s) Troponin I.cardiac [Mass/volume] in Serum or Plasma Less Than 0.015 0.00-0.09 N [facility] Less than 0.09 NG/ML Negative0.10 - 0.77 NG/ML High Risk0.78 NG/ML or Greater PositiveThe WHO defined the cutoff (definition for diagnosis of IA)for this method as 0.78 ng/ml. ID Date Data Source [id number] 06/06/2020 03:54:00 PM EST [facility]) Name Value Range Interpretation Code Description Data Evelin rce(s) Supporting Document(s) Icd Dual Program Laboratory test result [facility] ([facility]) ID Date Data Source [id number] 06/06/2020 12:00:00 AM EST [facility] Name Value Range Interpretation Code Description Data Evelin rce(s) Supporting Document(s) SARS-CoV2 Rapid PCR Not Detected [facility] This lab was ordered by [facility] and reported by [facility]. ID Date Data Source [id number] 05/31/2020 08:09:00 AM [facility] Name: JAGJIT IBARRA : 1960 Age: 60 MR#: [id number] Admit Date: 05/29/20 Provider: Christo Llamas MD Room #: 291 Consulting Provider: [facility] Cardiology Dictation Date: 05/31/20 Discharge Summary Discharge Summary Admit Info/Diagnoses/Course Date of service:: 05/31/20 Admission Information: Patient, JAGJIT IBARRA, a 60 year old M, admitted on 05/29/20 17:39 by MD Danii for AFIB WITH RVR Family No Family Doctor Provided Discharge Date: 05/31/20 Most Recent Lab Results: 05/31/20 07:50 Laboratory Results Last 24 hours 05/30/20 07:10: POC Glucose 277 H 05/30/20 11:25: POC Glucose 344 H 05/30/20 17:06: POC Glucose 307 H 05/31/20 07:50: WBC 11.6 H, RBC 5.27, Hgb 15.6, Hct 45.9, MCV 87.1, MCH 29.6, MCHC 34.0, RDW 12, PltCount 204, MPV 10.4, Immature Gran % (Auto) 0.7, Neut % (Auto) 69.5, Lymph % (Auto) 21.9, Mccone % (Auto) 6.1, Eos % (Auto) 1.3, Baso % (Auto) 0.5, Lymph # (Auto) 2.5, Abs Immat Gran (auto) 0.1, Add Manual Diff No, Absolute Neutrophils 8.0 H, Monocytes # 0.7, Absolute Eosinophils 0.2, Absolute Basophils 0.1 Microbiology 05/29/20 16:45 Nasopharyngeal Respiratory Panel (PCR) - Final No Organisms Detected INR Results 05/29/20 05/30/20 14:30 04:28 INR 1.2 H 1.2 H (0.9-1.1) (0.9-1.1) Hospital Course: 60 y/o M with h/o AFib came to c/o retrosternal mild chest pain; was found in AFib with RVR. Pt was initially started on iv cardizem gtt, was given iv Amiodaron 300 mg once. Pt was evaluated by cardiology service and as per recommendations he was started on PO Amiodaron 400mg BID for 7 days and after that 200 mg BID. Over the course of treatment pt's clinical condition improved, chest pain resolved, HR was controlled with PO Amiodarone. Home medication- lisinopril, HCTZ and Amlodipine were discontinued because of BP being on lower side. Pt was started on Long and short acting insulin for uncontrolled DM. Pt was seen and examined at bedside on day of discharge. Pt stated that he is feeling fine and did not have any complaint. Pt was clinically and vitally stable at the time of discharge Exam Condition Vital Signs - Most Recent: Last Vital Signs Temp 97.5 F L 05/31/20 04:00 Pulse 118 H 05/31/20 07:45 Resp 18 05/31/20 07:38 BP 100/62 05/31/20 07:45 Pulse Ox 98 05/31/20 04:00 Ht Wt BMI Current Height 6 ft Current Weight 285 lb Body Mass Index (BMI) 38.3 Body Mass Index (BMI) Obese Classification General: positive Alert, positive Oriented x3, positive Cooperative and positive No acute distress HEENT: Mucous membr. moist/pink Neck: Supple Lungs: Clear to auscultation Cardiovascular: Other (irregular rhythm ) Abdomen: Normal bowel sounds and Soft Extremities: No edema Skin: Skin warm and dry, Mucus membranes moist Neurological: Normal speech and Strength at 5/5 X4 ext Psych/Mental Status: Mood NL Discharge Plan Discharge Education Printouts: A-fib (Atrial Fibrillation) (DC) Chest Pain (ED) Medications Home Medications aspirin 81 mg PO DAILY 07/06/19 [History] nitroglycerin 0.4 mg SUBLINGUAL Q5MIN PRN 07/06/19 [History] aripiprazole 5 mg PO DAILY 07/07/19 [History] atorvastatin 80 mg PO DAILY 07/07/19 [History] carvedilol 25 mg PO BID 07/07/19 [History] cholecalciferol (vitamin D3) 25 mcg PO DAILY 07/07/19 [History] duloxetine 60 mg PO DAILY 07/07/19 [History] folic acid 1 mg PO DAILY 07/07/19 [History] gabapentin 600 mg PO TID 07/07/19 [History] metformin 1,000 mg PO BID 07/07/19 [History] tamsulosin 0.4 mg PO DAILY 07/07/19 [History] Eliquis 5 mg PO BID 05/29/20 [History] amiodarone 200 mg PO BID #60 tab 05/31/20 [Rx] amiodarone 400 mg PO BID #24 tab 05/31/20 [Rx] cyanocobalamin (vitamin B-12) 500 mcg PO DAILY 05/31/20 [History] omega-3 fatty acids-vitamin E 1,000 cap PO DAILY 05/31/20 [History] trazodone 100 mg PO HS 05/31/20 [History] Quality Measures Tobacco Use Smoking Status: Current every day smoker Smoking Cessation Education: Patient is not ready to quit smoking- encouraged to follow-up BMI Screening: Current Height: 6 ft Current Weight: 285 lb Body Mass Index (BMI): 38.3 Influenza Immunization Hx/Date of Influenza Vaccination (from nursing Hx): Yes Safety Two or more falls in last year? (Future fall risk): No Fall with injury in last year (Future fall risk): No Future fall risk?: Patient screened as not a future fall risk at this time Diabetes Care Measures HgAic/Microalbumin: HgA1c Hemoglobin A1c 10.1 % (3.8-5.6) H 05/29/20 14:35 Glucose/POC Glucose: POC Glucose last 48 hrs 05/29/20 05/30/20 05/30/20 20:43 06:05 07:10 POC Glucose 277 H 295 H 277 H 05/30/20 05/30/20 11:25 17:06 POC Glucose 344 H 307 H Glucose last 48 hrs 05/29/20 05/29/20 05/30/20 14:35 21:55 04:28 Glucose 424 H* 319 H 299 H Discharge Plan Admission/Discharge Dx Primary DC Diagnosis: Resolved episode of AFib with RVR, uncontrolled DM Condition Condition: Good Discharge Detail Disposition: Home, Self-Care Med Rec New Prescriptions: New amiodarone 200 mg Tablet 400 mg PO BID Qty: 24 RF: 0 amiodarone 200 mg tablet 200 mg PO BID Qty: 60 RF: 0 Continued nitroglycerin 0.4 mg tablet, sublingual 0.4 mg sublingual Q5MIN PRN (Reason: Chest Pain) RF: 0 aspirin 81 mg Tablet,Chewable 81 mg PO DAILY RF: 0 atorvastatin 40 mg Tablet 80 mg PO DAILY RF: 0 carvedilol 25 mg Tablet 25 mg PO BID RF: 0 gabapentin 600 mg Tablet 600 mg PO TID RF: 0 tamsulosin 0.4 mg Capsule 0.4 mg PO DAILY RF: 0 metformin 1,000 mg Tablet 1,000 mg PO BID RF: 0 folic acid 1 mg Tablet 1 mg PO DAILY RF: 0 aripiprazole 5 mg Tablet 5 mg PO DAILY RF: 0 cholecalciferol (vitamin D3) 1,000 unit/drop Drops 25 mcg PO DAILY RF: 0 duloxetine 60 mg Capsule, Delayed Rel Sprinkle 60 mg PO DAILY RF: 0 Eliquis 5 mg Tablet 5 mg PO BID RF: 0 cyanocobalamin (vitamin B-12) 500 mcg Tablet 500 mcg PO DAILY RF: 0 trazodone 100 mg Tablet 100 mg PO HS RF: 0 omega-3 fatty acids- vitamin E 1,000 mg Capsule 1,000 cap PO DAILY RF: 0 Discontinued lisinopril 20 mg tablet 40 mg PO DAILY RF: 0 hydralazine 10 mg Tablet 10 mg PO TID RF: 0 amlodipine 10 mg Tablet 10 mg PO DAILY RF: 0 Discharge Education Printouts: A-fib (Atrial Fibrillation) (DC), Chest Pain (ED) Follow Up Visit/Referrals: RUCHI,Cardiology [PHYSICIAN] - 06/06/20 2:45 pm (July 25 at 1 pm and August 01 for ICD check at 2 pm. Ground floor at [facility] JUNE 06 IN THE [place] OFFICE 2;45PM) Ida Alcantara, LOAN EXPEDITOR [FAMILY NURSE PRACTITIONER] - 06/14/20 10:15 am (June 14 at 10:15 AM) Follow Up Ca re/Instructions Diet/Activity/Wound Care..: f/u with PMD after discharge for cardiology referral for AFib *Discharge Patient* Discharge Orders: Discharge Order (Routine); Ordered 05/31/20 Ordered By: Christo Llamas Discharge Date/Time: 05/31/20 14:15 Interventions: Discharge Patient Last Done: 05/31/20 14:09 Dictated by: <Electronically signed by Christo Llamas MD> Christo Llamas MD 05/31/20 1608 Christo Llamas MD SIGNATURE DA Report Cosigners: D: JARON 05/31/20808 T: JARON 05/31/20808 CC: Name Value Range Interpretation Code Description Data Evelin rce(s) Supporting Document(s) ID Date Data Source [id number] 05/31/2020 07:56:00 AM [facility] Name Value Range Interpretation Code Description Data Evelin rce(s) Supporting Document(s) Leukocytes [#/volume] in Blood by Automated count 11.6 10*3/uL 4.45-10.71 Above high normal [facility] Erythrocytes [#/volume] in Blood by Automated count 5.27 10*6/uL 4.3- 6.1 N [facility] Hemoglobin [Moles/volume] in Blood 15.6 g/dL 13-18 N [facility] Hematocrit [Volume Fraction] of Blood by Automated count 45.9 % 4 2-52 N [facility] Erythrocyte mean corpuscular volume [Ent itic volume] in Cord blood by Automated count 87.1 fL 80-[address] [facility] Erythrocyte mean corpuscular hemoglobin [Entitic mass] by Automated count 29.6 pg 27-[address] [facility] Erythrocyte mean corpuscular hemoglobin concentration [Mass/volume] in Cord blood 34.0 g/dL 33-[address] [facility] Erythrocyte distribution width [Entitic volume] by Automated count 12 % 11-15 N [facility] Platelets [#/volume] in Blood by Automated count 204 10*3/uL 130-472 N [facility] Platelet mean volume [Entitic volume] in Blood 10.4 fL 9.1-13.1 N [facility] Neutrophils/100 leukocytes in Blood by Automated count 69.5 % 41- 77 N [facility] Neutrophils [#/volume] in Blood by Automated count 8.0 U 1.7-7.6 Above high normal [facility] Lymphocytes/100 leukocytes in Blood by Automated count 21.9 % 14- 46 N [facility] Lymphocytes [#/volume] in Blood by Automated count 2.5 U 0.6-4.6 N [facility] Monocytes/100 leukocytes in Blood by Automated count 6.1 % 4-12 N [facility] Monocytes [#/volume] in Blood by Automated count 0.7 U 0.2-1.2 N [facility] Eosinophils/100 leukocytes in Blood by Automated count 1.3 % 0-7 N [facility] Eosinophils [#/volume] in Blood by Automated count 0.2 U 0.0-0.5 N [facility] Basophils/100 leukocytes in Blood by Automated count 0.5 % 0.4-1 .3 N [facility] Basophils [#/volume] in Blood by Automated count 0.1 U 0.0-0.2 N [facility] NUCLEATED RED BLOOD CELL 0 % [facility] NUCLEATED RED BLOOD CELL# 0 U [facility] Immature granulocytes [Presence] in Blood by Automated count 0-2 N [facility] Immature granulocytes [#/volume] in Blood by Automated count 0.1 U 0-0.1 N [facility] Manual Differential panel - Blood NO [facility] ID Date Data Source [id number] 05/31/2020 08:28:00 AM [facility] Name Value Range Interpretation Code Description Data Evelin rce(s) Supporting Document(s) Urea nitrogen [Mass/volume] in Serum or Plasma 20 mg/dL 9-23 N [facility] Sodium [Moles/volume] in Serum or Plasma 138 mmol/L 132-146 [facility] Potassium [Moles/volume] in Serum or Plasma 4.4 mmol/L 3.5-5.5 [facility] Chloride [Moles/volume] in Serum or Plasma 107 mmol/L 99-109 N [facility] Carbon dioxide, total [Moles/volume] in Serum or Plasma 23 mmol/L 20 -31 N [facility] Anion gap in Serum or Plasma 12 mmol/L 8-16 [facility] Glucose [Mass/volume] in Serum or Plasma 264 mg/dL 74-106 Above high normal [facility] Creatinine 1.0 mg/dL 0.5-1.1 [facility] Glomerular filtration rate/1.73 sq M.pre dicted [Volume Rate/Area] in Serum or Plasma Greater Than 60 ABOVE 60 [facility] Alanine aminotransferase [Enzymatic acti vity/volume] in Serum or Plasma by With P-5'-P 54 U/L 10-49 Above high normal [facility] Aspartate aminotransferase [Enzymatic ac tivity/volume] in Serum or Plasma by With P-5'-P 18 U/L 0-33 [facility] pital Alkaline phosphatase [Enzymatic activity/volume] in Serum or Plasma 80 U/L 45-129 [facility] Calcium [Mass/volume] in Serum or Plasma 8.9 mg/dL 8.5-10.1 [facility] Bilirubin.total [Mass/volume] in Serum or Plasma 1.2 mg/dL 0.3-1.2 [facility] Albumin [Mass/volume] in Serum or Plasma by Bromocresol purple (BCP) dye binding method 3.8 g/dL 3.2-4.8 [facility] ital Protein [Mass/volume] in Serum or Plasma 7.0 g/dL 5.7-8.2 [facility] ID Date Data Source [id number] 05/31/2020 08:21:00 AM [facility] Anticoagulant or Thrombolytic medication :: Coumadin/Warfarin Name Value Range Interpretation Code Description Data Evelin rce(s) Supporting Document(s) Prothrombin Time (Patient) 11.9 s 9.6-12.3 N [facility] INR 1.1 0.9-1.1 N [facility] THE INR IS OPERATIONALLY DEFINED FOR RIKI SH PLASMA FROMPATIENTS STABILIZED ON ORAL ANTICOAGULANTS.ROUTINE ANTICOAGULANT THERAPY 2.0-3.0RECURRENT SYSTEMIC EMBOLISM/HEART VALVE REPLACEMENT 2.5-3.5 ID Date Data Source [id number] 05/30/2020 03:47:00 PM EST [facility] Name Value Range Interpretation Code Description Data Evelin rce(s) Supporting Document(s) .Scanned Labs Laboratory test result [facility] ([facility]) ID Date Data Source [id number] 05/30/2020 03:22:00 PM [facility] Name: JAGJIT IBARRA : 1960 Age: 60 MR#: [id number] Admit Date: 05/29/20 Provider: Christo Llamas MD Room #: 281 Consulting Provider: [facility] Cardiology Dictation Date: 05/30/20 Progress Note Subjective-ROS Date of service Date of service:: 05/30/20 Review of Systems Attestation/Length Of Stay: 05/29/20 17:39 Observation Order [STATUS] Routine Location: ICU Primary diagnosis: AFib with RVR Isolation: Standard precautions Observation Status: OBV less than 2 midnights Anticipated Length of stay:: NA -Observation Patient Vital Signs and I O Vitals and I O: Vital Signs last 12 hours Temp Pulse Pulse Resp BP BP Pulse Ox 05/30/20 12:30 98.3 F 103 H 20 126/65 94 L 05/30/20 11:25 115 H 05/30/20 09:54 120 H 128/56 05/30/20 08:43 130 H 125/78 05/30/20 07:30 97.5 F L 130 H 22 128/81 95 05/30/20 06:20 130 H 05/30/20 06:00 96.8 F L 122 H 16 106/74 98 05/30/20 04:00 125 H Intake Output Last 24 Hours 05/28/20 05/29/20 05/30/20 23:59 23:59 23:59 Intake Total 2200 / 2200 700 / 700 Output Total 500 / 500 Balance 2200 / 2200 200 / 200 Current Weight 283 lb 2 oz 283 lb Results Results: 05/30/20 04:28 05/30/20 04:28 Laboratory Results Last 24 hours 05/29/20 14:35: Hemoglobin A1c 10.1 H, Estim Average Glucose 243 05/29/20 14:35: D-Dimer Less than 0.19 05/29/20 16:50: Troponin I 0.061 05/29/20 16:50: Magnesium 2.0, TSH 2.23 05/29/20 20:43: POC Glucose 277 H 05/29/20 21:55: Sodium 139, Potassium 4.2, Chloride 109, Carbon Dioxide 21, Anion Gap 13, BUN 26 H, Creatinine 1.2 H, GFR Calculation Greater than 60, Glucose 319 H, Calcium 8.9, Troponin I 0.075 05/29/20 21:55: Fnd-O-Zqurqwsocrh Pept 2564.00 H 05/30/20 04:28: WBC 10.0, RBC 4.89, Hgb 14.7, Hct 42.6, MCV 87.1, MCH 30.1, MCHC 34.5, RDW 12, Plt Count 208, MPV 10.5, Immature Gran % (Auto) 1.3, Neut % (Auto) 56.5, Lymph % (Auto) 31.0, Mccone % (Auto) 8.0, Eos % (Auto) 2.4, Baso % (Auto) 0.8, Lymph # (Auto) 3.1, Abs Immat Gran (auto) 0.1, Add Manual Diff No, Absolute Neutrophils 5.7, Monocytes # 0.8, Absolute Eosinophils 0.2, Absolute Basophils 0.1 05/30/20 04:28: Sodium 139, Potassium 3.8, Chloride 109, Carbon Dioxide 23, Anion Gap 11, BUN 27 H, Creatinine 1.2 H, GFR Calculation Greater than 60, Glucose 299 H, Calcium 8.7, Total Bilirubin 1.3 H, AST 37 H, ALT 54 H, Alkaline Phosphatase 69, Serum Total Protein 6.5, Albumin 3.4 05/30/20 04:28: PT 12.4 H, INR 1.2 H 05/30/20 06:05: POC Glucose 295 H 05/30/20 07:10: POC Glucose 277 H 05/30/20 11:25: POC Glucose 344 H Microbiology 05/29/20 16:45 Nasopharyngeal Respiratory Panel (PCR) - Final No Organisms Detected Exam Orientation: Alert, Oriented x3 and Cooperative HEENT: Mucous membr. moist/pink Lungs: normal lung sounds bilaterally Cardiovascular Exam: tachycardia and irregular rhythm Abdomen: Normal bowel sounds and Soft; negative for Tenderness Extremities: normal inspection Skin: Skin warm and dry, Mucus membranes moist Neurological: Normal speech and Strength at 5/5 X4 ext Psych/Mental Status: normal mood Assessment/Plan A P Free Text/Narrative :: 60 y/o M with h/o AFib came to c/o retrosternal mild chest pain; was found in AFib with RVR Labs and imaging studies reviewed Pt stated that he is feeling much better. Denied chest pain Plan 1. Afib with RVR As per cardiology recommendations started on Amiodarone 400 mg BID for 7 days then 200 mg BID will taper off cardizem gtt on Eliquis will continue carvedilol 2. h/o DM type 2 uncontrolled started on Lantus 30 units insulin sliding scale diabetic diet will hold metformin HbA1c 10.1 3. Obesity supportive care 4. HLD home meds 5. GERD home meds 6. BPH home meds 7. HTN will resume home meds 8. h/o Ischemic cardiomyopathy s/p ICD placement. Care plan: Plan of care discussed with patient and or family, Patient encouraged to ask questions about plan, Patient agrees with plan of care and Discharge plan and instructions discussed with patient and or family Dictated by: <Electronically signed by Christo Llamas MD> Christo Llamas MD 05/30/20 1529 Christo Llamas MD SIGNATURE DA Report Cosigners: D: JARON 05/30/20 1522 T: JARON 05/30/20 1522 CC: Name Value Range Interpretation Code Description Data Evelin rce(s) Supporting Document(s) ID Date Data Source [id number] 05/30/2020 10:41:00 AM EST [facility] CONSULTATION REPORT NAME: JAGJIT IBARRA : 1960 AGE: 60 MR#: [id number] ADMITTING DATE: 05/29/[address]: Christo Llamas MD DISCHARGE DATE: 05/31/[address]: Christo Llamas MD ROOM#: [id number] DATE CONSULT DICTATED 05/30/2020 HISTORY ON PRESENTATION This patient is a 60-year-old gentleman with longstanding history of hypertension, hyperlipidemia, coronary artery disease, diabetes mellitus, ischemic cardiomyopathy. In January or February of 2014, patient had an extensive anteroapical myocardial infarction requiring multiple stent placement. This was all done in [place], [place]. Detailed operative report is not available. Patientin view of s ignificant LV dysfunction, in May 2014 underwent ICD placement, dual chamber. Patient about a year later had a CVA for which he was started on anticoagulation and has remained onanticoagulation since then. Patient is getting refills of his medications from [facility]. Last evaluated several months ago by tele visit, and medical therapy was continued. As per patient, he takes all his medications, does not recollect what. Unfortunately he continues to smoke. Yesterday he was trying to help the landlady with putting up the TV cable box, suddenly started noticing feeling dizzy, lightheaded, fluttering in the heart, some discomfort in the chest. Denies any PND, orthopnea, diaphoresis, nausea, vomiting, or any other cardiac symptoms. In view of the same, patient came to the emergency room. EKG showed AFib with rapid rate. Patient is admitted, rate is improving. He remains on anticoagulation. Cardiac evaluation was requested. CORONARY RISK FACTORS Includes history of smoking, continues to smoke. Hypertension, diabetes, hyperlipidemia, obesity. FAMILY HISTORY Positive. PAST MEDICAL/SURGICAL HISTORY Includes history of DVT, IVC filter placed in the past, myocardial infarction in 2013, ICD placed in 2014, history of spinal fusion in the past, cervical fusion in the past, bilateral knee arthroscopy in remote past, ICD in May 2014, [facility] ICD. ALLERGIES NIFEDIPINE, COMPAZINE, AND FLEXERIL. REVIEW OF SYSTEMS Unemployed, gets services through [facility] in [place]. History of smoking. Denies any drug or alcoholuse. PHYSICAL EXAMINATION GENERAL: Alert, awake. VITAL SIGNS: Blood pressure is 110/70, pulse is about 92-95, AFib. NECK: Supple, no JVD. Soft systolic murmur heard in apical area. ABDOMEN: Obese. EXTREMITIES: Without any edema. EKG shows AFib with rapid ventricular response, poor R- wave progression. Other lab data within acceptable range. Troponin is negative. IMPRESSION Atrial fibrillation with rapid rate, ischemic cardiomyopathy status post dual-chamber ICD. Patient's blood pressure is borderline, his rate is well controlled. He remains on anticoagulation. Cardiac biomarkers are negative. It is possible that patient has AFib which is a main issue. At present time, we will consider patient for oral amiodarone, discontinuation of IV diltiazem is appropriate. He remains on anticoagulation. We will try to schedule ICD check as well as further testing as an outpatient. From a cardiac standpoint of view, once blood sugar is better and rate iscontrolled, patient can be discharged home. Thank you for having us participate in the cardiac care of this pleasant gentleman. CC: Christo Llamas MD; [facility] <Electronically signed by Tremaine Ledesma MD> Tremaine Ledesma MD 06/30/20 1231 Tremaine Ledesma M.D. Cosigner: D: DANA 05/30/20 1041 T: DWAYNE 05/30/20 1121 CC: Christo Llamas MD; Tremaine Ledesma M.D.; No Family PHYS Provided LAST EDIT: Name Value Range Interpretation Code Description Data Evelin rce(s) Supporting Document(s) ID Date Data Source [id number] 05/30/2020 05:02:00 AM EST [facility] Name Value Range Interpretation Code Description Data Evelin rce(s) Supporting Document(s) Leukocytes [#/volume] in Blood by Automated count 10.0 10*3/uL 4.45-1 0.71 N [facility] Erythrocytes [#/volume] in Blood by Automated count 4.89 10*6/uL 4.3- 6.1 N [facility] Hemoglobin [Moles/volume] in Blood 14.7 g/dL 13-18 N [facility] Hematocrit [Volume Fraction] of Blood by Automated count 42.6 % 4 2-52 N [facility] Erythrocyte mean corpuscular volume [Ent itic volume] in Cord blood by Automated count 87.1 fL 80-[address] [facility] ital Erythrocyte mean corpuscular hemoglobin [Entitic mass] by Automated count 30.1 pg 27-31 N [facility] l Erythrocyte mean corpuscular hemoglobin concentration [Mass/volume] in Cord blood 34.5 g/dL 33-[address] [facility] ital Erythrocyte distribution width [Entitic volume] by Automated count 12 % 11-15 N [facility] Platelets [#/volume] in Blood by Automated count 208 10*3/uL 130-472 N [facility] Platelet mean volume [Entitic volume] in Blood 10.5 fL 9.1-13.1 N [facility] Neutrophils/100 leukocytes in Blood by Automated count 56.5 % 41- 77 N [facility] Neutrophils [#/volume] in Blood by Automated count 5.7 U 1.7-7.6 N [facility] Lymphocytes/100 leukocytes in Blood by Automated count 31.0 % 14- 46 N [facility] Lymphocytes [#/volume] in Blood by Automated count 3.1 U 0.6-4.6 N [facility] Monocytes/100 leukocytes in Blood by Automated count 8.0 % 4-12 N [facility] Monocytes [#/volume] in Blood by Automated count 0.8 U 0.2-1.2 N [facility] Eosinophils/100 leukocytes in Blood by Automated count 2.4 % 0-7 N [facility] Eosinophils [#/volume] in Blood by Automated count 0.2 U 0.0-0.5 N [facility] Basophils/100 leukocytes in Blood by Automated count 0.8 % 0.4-1 .3 N [facility] Basophils [#/volume] in Blood by Automated count 0.1 U 0.0-0.2 N [facility] NUCLEATED RED BLOOD CELL 0 % [facility] NUCLEATED RED BLOOD CELL# 0 U [facility] Immature granulocytes [Presence] in Blood by Automated count 0-2 N [facility] Immature granulocytes [#/volume] in Blood by Automated count 0.1 U 0-0.1 N [facility] Manual Differential panel - Blood NO [facility] ID Date Data Source [id number] 05/30/2020 06:28:00 AM EST [facility] Name Value Range Interpretation Code Description Data Evelin rce(s) Supporting Document(s) Urea nitrogen [Mass/volume] in Serum or Plasma 27 mg/dL 9-23 Above high normal [facility] Sodium [Moles/volume] in Serum or Plasma 139 mmol/L 132-146 N [facility] Potassium [Moles/volume] in Serum or Plasma 3.8 mmol/L 3.5-5.5 N [facility] Chloride [Moles/volume] in Serum or Plasma 109 mmol/L 99-109 N [facility] Carbon dioxide, total [Moles/volume] in Serum or Plasma 23 mmol/L 20 -31 N [facility] Anion gap in Serum or Plasma 11 mmol/L 8-[address] [facility] Glucose [Mass/volume] in Serum or Plasma 299 mg/dL 74-106 Above high normal [facility] Creatinine 1.2 mg/dL 0.5-1.1 Above high normal Health system Glomerular filtration rate/1.73 sq M.pre dicted [Volume Rate/Area] in Serum or Plasma Greater Than 60 ABOVE 60 [facility] Alanine aminotransferase [Enzymatic acti vity/volume] in Serum or Plasma by With P-5'-P 54 U/L 10-49 Above high normal [facility] Aspartate aminotransferase [Enzymatic ac tivity/volume] in Serum or Plasma by With P-5'-P 37 U/L 0-33 Above high normal [facility] Alkaline phosphatase [Enzymatic activity/volume] in Serum or Plasma 69 U/L 45-129 N [facility] Calcium [Mass/volume] in Serum or Plasma 8.7 mg/dL 8.5-10.1 [facility] Bilirubin.total [Mass/volume] in Serum or Plasma 1.3 mg/dL 0.3-1.2 Above high normal [facility] Albumin [Mass/volume] in Serum or Plasma by Bromocresol purple (BCP) dye binding method 3.4 g/dL 3.2-4.8 [facility] ital Protein [Mass/volume] in Serum or Plasma 6.5 g/dL 5.7-8.2 [facility] ID Date Data Source [id number] 05/30/2020 05:21:00 AM [facility] Anticoagulant or Thrombolytic medication :: Coumadin/Warfarin Name Value Range Interpretation Code Description Data Evelin rce(s) Supporting Document(s) Prothrombin Time (Patient) 12.4 s 9.6-12.3 Above high normal [facility] INR 1.2 0.9-1.1 Above [facility] THE INR IS OPERATIONALLY DEFINED FOR RIKI SH PLASMA FROMPATIENTS STABILIZED ON ORAL ANTICOAGULANTS.ROUTINE ANTICOAGULANT THERAPY 2.0-3.0RECURRENT SYSTEMIC EMBOLISM/HEART VALVE REPLACEMENT 2.5-3.5 ID Date Data Source [id number] 05/29/2020 10:52:00 PM [facility] Special Instructions: from the last labs Name Value Range Interpretation Code Description Data Evelin rce(s) Supporting Document(s) Natriuretic peptide.B prohormone N-Terminal [Mass/volu me] in Serum or Plasma 2564.00 pg/mL 0.00-175 Above [facility] normal [facility] ospital ID Date Data Source [id number] 05/29/2020 10:40:00 PM [facility] Name Value Range Interpretation Code Description Data Evelin rce(s) Supporting Document(s) Urea nitrogen [Mass/volume] in Serum or Plasma 26 mg/dL 9-23 Above high normal [facility] Sodium [Moles/volume] in Serum or Plasma 139 mmol/L 132-146 [facility] Potassium [Moles/volume] in Serum or Plasma 4.2 mmol/L 3.5-5.5 [facility] Chloride [Moles/volume] in Serum or Plasma 109 mmol/L 99-109 [facility] Carbon dioxide, total [Moles/volume] in Serum or Plasma 21 mmol/L 20 -31 [facility] Anion gap in Serum or Plasma 13 mmol/L 8-16 N [facility] Glucose [Mass/volume] in Serum or Plasma 319 mg/dL 74-106 Above [facility] Creatinine 1.2 mg/dL 0.5-1.1 Above high normal Health system Glomerular filtration rate/1.73 sq M.pre dicted [Volume Rate/Area] in Serum or Plasma Greater Than 60 ABOVE 60 [facility] Calcium [Mass/volume] in Serum or Plasma 8.9 mg/dL 8.5-10.1 N [facility] ID Date Data Source [id number] 05/29/2020 10:40:00 PM [facility] Name Value Range Interpretation Code Description Data Evelin rce(s) Supporting Document(s) Troponin I.cardiac [Mass/volume] in Serum or Plasma 0.075 ng/mL 0.00- 0.09 [facility] Less than 0.09 NG/ML Negative0.10 - 0.77 NG/ML High Risk0.78 NG/ML or Greater PositiveThe WHO defined the cutoff (definition for diagnosis of IA)for this method as 0.78 ng/ml. ID Date Data Source [id number] 05/29/2020 06:52:00 PM [facility] Name: JAGJIT IBARRA : 1960 Age: 60 MR#: [id number] Admit Date: 05/29/20 Provider: Christo Llamas MD Room #: 281 Consulting Provider: [facility] Cardiology Dictation Date: 05/29/20 History Physical HPI Date of service Date of service:: 05/29/20 History of Present Illness Nurse screening for coronavirus: Recent Travel outside the country (where) Chief Complaint: chest pain Emergency Room stated complaint: Cardiovascular Source of information: Patient and Emergency Med Personnel HPI Free Text/Narrative:: 60 y/o M with h/o AFib came to c/o retrosternal mild chest pain associatedwith palpitation that started at about 11 am today; no specific aggravating or relieving factor. In ER pt was found in AFib with RVR with HR in 160s, was given iv cardizem 20 mg once, then 25 mg once without much help; was started in cardizem gtt. Pt was found with BP 123/80, RR 18, Temp 98.0. SpO2- 98% on RA; chest x ray no acute pathology, EKG- Afib with RVR, Troponin x 2 negative. Hospitalist service was consulted to admit the patient for further management. Pt was seen and examined at bedside in ER. Pt was resting comfortably in bed. At the time of examination pt denied any chest pain. Allergies/Home Meds Allergies Allergy/AdvReac Type Severity Reaction Status Date / Time nifedipine [From Procardia] Allergy Mild Taste Verified 05/29/20 14:33 Changes cyclobenzaprine AdvReac Mild Anxiety Verified 05/29/20 14:33 [From Flexeril] prochlorperazine AdvReac Mild Anxiety Verified 05/29/20 14:33 [From Compazine] Home Medications Medication Instructions Recorded Confirmed Last Taken Type aspirin 81 mg PO DAILY 07/06/19 05/29/20 05/29/20 07:00 History 81 mg lisinopril 40 mg PO DAILY 07/06/19 05/29/20 05/29/20 07:00 History 40 mg nitroglycerin 0.4 mg SUBLINGUAL Q5MIN PRN 07/06/19 05/29/20 05/29/20 13:30 History o.4 mg aripiprazole 5 mg PO DAILY 07/07/19 05/29/20 05/29/20 07:00 History 5 mg atorvastatin 40 mg PO DAILY 07/07/19 05/29/20 05/29/20 07:00 History 40 mg carvedilol 25 mg PO BID 07/07/19 05/29/20 05/29/20 07:00 History 25 mg cholecalciferol (vitamin D3) 1,000 unit PO DAILY 07/07/19 05/29/20 05/29/20 07:00 History 1000 mg duloxetine 60 mg PO DAILY 07/07/19 05/29/20 05/29/20 07:00 History 60 mg famotidine 20 mg PO BID 07/07/19 05/29/20 05/29/20 07:00 History 20 mg folic acid 1 mg PO DAILY 07/07/19 05/29/20 05/29/20 07:00 History 1 mg gabapentin 600 mg PO TID 07/07/19 05/29/20 05/29/20 07:00 History 600 mg hydralazine 10 mg PO TID 07/07/19 05/29/20 05/29/20 07:00 History 10 mg metformin 1,000 mg PO BID 07/07/19 05/29/20 05/29/20 07:00 History 1000 mg tamsulosin 0.4 mg PO DAILY 07/07/19 05/29/20 05/29/20 07:00 History 0.4 mg apixaban [Eliquis] 5 mg PO DAILY 05/29/20 05/29/20 05/29/20 07:00 History 5 mg Medication list updated and reviewed:: Yes PFSH Medical History Deep vein thrombosis Diabetes mellitus Cactus filter in place Hypertension Myocardial infarction Pacemaker Spinal fusion failure Stroke Surgical History H/O knee surgery Hx of heart artery stent Hx of neck surgery Family History (Updated 05/29/20 @ 23:03 by Delfina Dickerson) Father Cancer Mother Cancer Brother Cancer Social History Does the Patient have a Healthcare Proxy: No Does Patient have a DNR?: No Does Patient have a Living Will?: No Does the Patient have a MOLST?: No Advance Directives on File or in chart?: No Hx Recent Travel (where): No Smoking Status: Current every day smoker Additional [facility] information Additional Family History: Pt does not recall if his parents had any medical problems Sickle cell Sickle Cell Screening:: Not indicated ROS Const All systems reviewed are unremarkable except as noted in HPI and below Details: 10 points reviews of systems was performed and it was negative except as per HPI Vital Signs and I O Vitals and I O: Vital Signs last 12 hours Temp Pulse Resp BP Pulse Ox 05/29/20 17:01 110 H 16 107/60 97 05/29/20 16:59 132 H 107/60 05/29/20 14:44 122 H 116/75 05/29/20 14:42 120 H 116/75 05/29/20 14:16 122 H 116/75 05/29/20 14:10 98.0 F 160 H 18 123/80 98 Intake Output Last 24 Hours 05/27/20 05/28/20 05/29/20 23:59 23:59 23:59 Current Weight 282 lb Height,Weight BMI: Ht Wt BMI Current Height 6 ft Current Weight 282 lb Results Results: 05/29/20 14:35 05/29/20 14:35 Laboratory Results Last 24 hours 05/29/20 14:30: PT 12.6 H, INR 1.2 H, PTT ([place]) 29.1 05/29/20 14:35: WBC 11.2 H, RBC 5.73, Hgb 17.2, Hct 49.4, MCV 86.2, MCH 30.0, MCHC 34.8, RDW 12, Plt Count 239, MPV 10.3, Immature Gran % (Auto) 1.2, Neut % (Auto) 63.5, Lymph % (Auto) 25.6, Mccone % (Auto) 7.0, Eos % (Auto) 1.9, Baso % (Auto) 0.8, Lymph # (Auto) 2.9, Abs Immat Gran (auto) 0.1, Add Manual Diff No, Absolute Neutrophils 7.1, Monocytes # 0.8, Absolute Eosinophils 0.2, Absolute Basophils 0.1 05/29/20 14:35: Sodium 137, Potassium 5.5, Chloride 105, Carbon Dioxide 23, Anion Gap 15, BUN 22, Creatinine 1.4 H, GFR Calculation 52, Glucose 424 H*, Calcium 9.2, Total Bilirubin 1.2, AST 24, ALT 51 H, Alkaline Phosphatase 93, Creatine Kinase 56, CK-MB (CK-2) 1.1, CK-MB (CK-2) % 1.9, Troponin I 0.055, Serum Total Protein 7.6, Albumin 3.9 05/29/20 14:35: Hemoglobin A1c 10.1 H, Estim Average Glucose 243 05/29/20 14:35: D-Dimer Less than 0.19 05/29/20 16:50: Troponin I 0.061 Microbiology 05/29/20 16:45 Nasopharyngeal Respiratory Panel (PCR) - Final No Organisms Detected Exam Const General: cooperative [facility] Mouth: moist mucous membranes Neck Neck: supple Resp Auscultation: clear to auscultation bilaterally Cardio Rate: tachycardic GI Palpation: soft and nontender Auscultation: normal bowel sounds Skin Lesions: no lesions Neuro General: patient alert, patient awake and patient oriented x3 Cranial Nerves: CN's II-XII intact bilaterally Motor: strength 5/5 throughout Extrem General: no pedal edema Psych Mood: congruent mood Assessment/Plan A P Free Text/Narrative :: 60 y/o M initially came to ER c/o retrosternal chest pain, found in AFib with RVR. Pt does not remember what medication he takes Labs and imaging studies reviewed Impression - AFib with RVR Plan 1. AFib with RVR Cardizem gtt, On Eliquis telemetry will f/u repeat troponin will f/u TSH and magnesium level 2. h/o DM type 2 uncontrolled started on Lantus 20 units insulin sliding scale diabetic diet will hold metformin HbA1c 10.1 3. Obesity supportive care 4. HLD home meds 5. GERD home meds 6. BPH home meds 7. HTN will resume home meds Dictated by: <Electronically signed by Christo Llamas MD> Christo Llamas MD 05/30/20 0755 Christo Llamas MD SIGNATURE DA Report Cosigners: D: JARON 05/29/201851 T: JARON 05/29/201851 CC: Name Value Range Interpretation Code Description Data Evelin rce(s) Supporting Document(s) ID Date Data Source [id number] 05/29/2020 07:20:00 PM [facility] ADD ONSpecial Instructions: can use bloo d sample in labSpecial Instructions: can use blood sample in lab ADD ONSpecial Instructions: can use bloo d sample in labSpecial Instructions: can use blood sample in lab Name Value Range Interpretation Code Description Data Evelin rce(s) Supporting Document(s) Magnesium [Mass/volume] in Serum or Plasma 2.0 mg/dL 1.3-2.7 N [facility] ID Date Data Source [id number] 05/29/2020 07:20:00 PM [facility] ADD ONSpecial Instructions: can use bloo d sample in labSpecial Instructions: can use blood sample in lab ADD ONSpecial Instructions: can use bloo d sample in labSpecial Instructions: can use blood sample in lab Name Value Range Interpretation Code Description Data Evelin rce(s) Supporting Document(s) Thyrotropin [Units/volume] in Serum or Plasma by Detec tion limit <= 0.005 mIU/L 2.23 u[iU]/[facility] [facility] [facility] ID Date Data Source [id number] 05/29/2020 05:24:00 PM [facility] Anticoagulant or Thrombolytic medication : Coumadin/WarfarinIs test to R/O PE, DVT or VTE? Y Name Value Range Interpretation Code Description Data Evelin rce(s) Supporting Document(s) Troponin I.cardiac [Mass/volume] in Serum or Plasma 0.061 ng/mL 0.00- 0.09 [facility] Less than 0.09 NG/ML Negative0.10 - 0.77 NG/ML High Risk0.78 NG/ML or Greater PositiveThe WHO defined the cutoff (definition for diagnosis of IA)for this method as 0.78 ng/ml. ID Date Data Source [id number] 05/29/2020 04:56:00 PM [facility] Anticoagulant or Thrombolytic medication : Coumadin/WarfarinIs test to R/O PE, DVT or VTE? Y Name Value Range Interpretation Code Description Data Evelin rce(s) Supporting Document(s) Fibrin D-dimer [Units/volume] in Platelet poor plasma Less Than 0.1 9 0.0-0.50 [facility] @Report as less than 0.19@ Has QC been r un for this test today?PLEASE NOTE: THIS TEST WAS PERFORMED USING A PARTICLE-ENHANCED, IMMUNOTURBIDIMETRIC ASSAY AND HAS A SINGLE,CLINICALLY DERIVED CUTOFF OF 0.50 MG/L. ID Date Data Source [id number] 05/29/2020 05:41:00 PM [facility] THIS RP PANEL TESTS FOR SARS-CoV -2,(COVID-19)FilmArray Respiratory Panel is a Multiplexed NAAT-PCR testNORMAL VALUE FOR ALL 20 PATHOGENS IS "NOT DETECTED".The FilmArray RP panel detects Influenza A H1,H3 [id number] H1 viruses,Influenza B virus, Respiratory syncytialvirus, Human metapneumovirus,Parainfluenza virus 1,2,3, and4, Adenovirus,Rhino/Enterovirus,Coronavirus HKU 1, Nl63,OC43, and 229E,Bordetella pertussis, Bordetellaparapertussis, Mycoplasma pneumoniae and Chlamydiapneumoniae, SARS-CoV-2 (COVID 19).THIS TEST HAS NOT BEEN EVALUATED FOR USE WITH SPECIMENSOTHER THAN NASOPHARYNGEAL SWAB SPECIMENS.THE PERFORMANCE OF THIS TEST HAS NOT BEEN ESTABLISHED FORPATIENTS WITHOUT SIGNS AND SYMPTOMS OF RESPIRATORYINFECTION.RESULTS FROM THIS TEST MUST BE CORRELATED WITH CLINICALHIST ORY, EPIDEMIOLOGICAL DATA , AND OTHER DATA AVAILABLE TOTHE CLINICIAN EVALUATING THE PATIENT.THE PERFORMANCE OF THE M-ChangaARRAY RP HAS NOT BEEN ESTABLISHEDIN INDIVIDUALS WHO RECEIVED INFLUENZA VACCINE. RECENTADMINISTRATION OF A NASAL INFLUENZA VACCINE MAY CAUSE AFALSE POSITIVE RESULT FOR INFLUENZA A AND/OR B.NEGATIVE RESULTS SHOULD NOT BE USED THE SOLE BASIS FORDIAGNOSIS, TREATMENT, OR OTHER MANAGEMENT DECISIONS.NEGATIVE RESULTS IN THE SETTING OF A RESPIRATORY ILLNESSMAYBE DUE TO INFECTION WITH PATHOGENS THAT ARE NOT DETECTEDBY THIS TEST OR LOWER RESPIRATORY TRACT INFECTION THAT ISNOT DETECTED BY A NASOPHARYNGEAL SWAB SPECIMEN.SARS-CoV-2 RNA Resp Ql PARMJIT+probe Name Value Range Interpretation Code Description Data Evelin rce(s) Supporting Document(s) ID Date Data Source [id number] 05/29/2020 02:52:00 PM EST [facility] [address] [address] [phone] NAME SEX PT STATUS ACCOUNT NUMBER JAGJIT IBARRA [facility] ER [id number] ORDERING PHYSICIAN LOCATION MEDICAL RECORD NO. José Miguel Shannon MD ER [id number] ATTENDING PHYSICIAN DATE OF DATE OF EXAM/TIME Doctor Provided,No Family 1960 05/29/20 / 1434 TYPE / EXAM Xray Chest One View REASON FOR EXAM cough/sob Clinical History/Indication for Exam: cough/sob RADIOGRAPH OF THE CHEST 1 VIEW INDICATION: cough/sob COMPARISON: 07/06/2019 FINDINGS: Lungs: Unremarkable. No consolidation. Pleural space: Unremarkable. No pneumothorax. Heart: Unremarkable. No cardiomegaly. Mediastinum: Unremarkable. Bones/joints: Unremarkable. Tubes, lines and devices: IECD (implantable electronic cardiac device) in expected position. IMPRESSION: No acute findings in the chest. REPORT SIGNATURE ON FILE 05/29/2020 (14:52 Eastern Time ) Signed by: Nestor Knowles M.D. Reported By Nestor Knowles MD on 05/29/20 4810 Signed By Nestor Knowles MD on 05/29/201451 Date Time CC: No Family PHYS Provided; Nestor Knowles MD Techn: CUMME Trans Dt/Tm: Trans by: DT Prt Dt/Tm: [id number]: Total DLP = 0.00 mGy-cm Fluoroscopy Time (in secs): Name Value Range Interpretation Code Description Data Evelin rce(s) Supporting Document(s) ID Date Data Source [id number] 05/29/2020 02:40:00 PM [facility] ED Physician Documentation NAME: JAGJIT IBARRA : 1960 AGE: 60 MR#: [id number] SERVICE DATE: 05/29/[address]: José Miguel Shannon MD PRIMARY CARE DR: No Family PHYS Provided ROOM#: [facility] (Adult, General) General Chief Complaint: Cardiovascular Stated Complaint: CHEST PAIN Resident LT, travel outisde home, exposure to hot tubs:: No Time Seen by Provider: 05/29/20 14:30 Source: patient Exam Limitations: no limitations History of Present Illness Narrative: This is a 60-year-old moderately obese white male comes in complaining of developing the sudden onset of some mild shortness of breath palpitations and chest pain 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 The patient states his symptoms started about an hourand a half ago. He ultimately called EMS was brought in. Upon arrival to the ED his heart rate wasfound to be approximately 150 bpm. He stated his pain was about a 7-8 out of 10. He was mildly diaphoretic. Any pain on arrival we did give him Cardizem 20 mg IV his heart rate is now slow down to the 110-115 range. He does feel slightly improved. He still is quite anxious. History of Present Illness Timing/Duration: 1-3 hours Allergies/Home Meds Allergies Allergy/AdvReac Type Severity Reaction Status Date / Time nifedipine [From Procardia] Allergy Mild Taste Verified 05/29/20 14:33 Changes cyclobenzaprine AdvReac Mild Anxiety Verified 05/29/20 14:33 [From Flexeril] prochlorperazine AdvReac Mild Anxiety Verified 05/29/20 14:33 [From Compazine] Home Medications Medication Instructions Recorded Confirmed Last Taken Type aspirin 81 mg PO DAILY 07/06/19 07/07/19 07/07/19 History lisinopril 40 mg PO DAILY 07/06/19 07/07/19 07/07/19 History nitroglycerin 0.4 mg SUBLINGUAL Q5MIN PRN 07/06/19 07/07/19 07/06/19 11:00 History warfarin [Coumadin] See Rx Instructions .ROUTE .COMPLEX 07/06/19 07/07/19 07/05/19 History warfarin [Coumadin] See Rx In structions .ROUTE .COMPLEX 07/06/19 07/07/19 07/06/19 History aripiprazole 5 mg PO DAILY 07/07/19 07/07/19 Unknown History atorvastatin 40 mg PO DAILY 07/07/19 07/07/19 Unknown History carvedilol 25 mg PO BID 07/07/19 07/07/19 Unknown History cholecalciferol (vitamin D3) 1,000 unit PO DAILY 07/07/19 07/07/19 Unknown History duloxetine 60 mg PO DAILY 07/07/19 07/07/19 Unknown History famotidine 20 mg PO BID 07/07/19 07/07/19 Unknown History folic acid 1 mg PO DAILY 07/07/19 07/07/19 Unknown History gabapentin 600 mg PO TID 07/07/19 07/07/19 Unknown History hydralazine 10 mg PO TID 07/07/19 07/07/19 Unknown History melatonin [Melatin] 3 mg PO HS 07/07/19 07/07/19 Unknown History metformin 1,000 mg PO BID 07/07/19 07/07/19 Unknown History tamsulosin 0.4 mg PO DAILY 07/07/19 07/07/19 Unknown History PMH (from Triage) Patient Medical History PMH Reviewed/Updated as Needed: Yes (History of having a defibrillator placed 6 years ago) PMH/PSH from Triage: Medical History (Updated 12/11/19 @ 01:23 by Melonie Park MD) Diabetes mellitus (Medical) E11.9 Hypertension (Medical) I10 Myocardial infarction (Medical) I21.9 Spinal fusion failure (Medical) T84.9XXA Stroke (Medical) I63.9 2016- received tpa Surgical History (Updated 07/06/19 @ 14:29 by Jayne Norman RN) H/O knee surgery (Surgical) Z98.890 Hx of heart artery stent (Surgical) Z95.5 Hx of neck surgery (Surgical) Z98.890 Hx Drug Resistant Infections Hx Other Resistant Infection?: No Isolation: Standard precautions Hx Recent Travel Out of the country within 10 days (where): No Hx Fever with a rash?: No Nurse screening for coronavirus: Recent Travel outside the No country (where) Social History Are you in a relationship with/Does anyone hit you, yell/swear at you, steal from you?: No Substance Use Smoking Status: Current every day smoker Tobacco Use Years smoked:: 2.5 Hx Chewing Tobacco Use: No Vaccination History Hx/Date of Tetanus, Diphtheria Vaccination: Yes Hx/Date of Influenza Vaccination: Yes Hx/Date of Pneumococcal Vaccination: Yes ROS Review of Systems Constitutional: Reports sweats and weakness Eyes: Denies vision change, eye discharge/drng, redness, eye pain, descr of pain, conjunctiva inflammation, eyelid inflammation, eyelid issues, floaters, foreign body, r/t accident, contact lens user, wears glasses and other ENT: Denies mouth pain, mouth swelling, dental pain, dry mouth, bleeding gums, ear pain, hearing loss, tinnitis, ear discharge, nasal pain, nasal discharge, nasal congestion, post nasal drip, epistaxis, throat pain, throat swelling, hoarseness, constant throat clearing, pain upon swallowing, recent head trauma, recent airplane travel, recent swimming/diving, uses hearing aid/ear plugs, pain worse with motion, prolonged use of topical meds and other Respiratory: Reports SOB; Denies cough, sputum, orthopnea, SOB w/exertion rest, SOB with excertion, SOB at rest, stridor, wheezing, hemoptysis, pleuritic pain, exposures and other Cardiovascular: Reports chest pain, palpitations and light headedness Gastrointestinal: Denies No Symptoms/Complaints, nausea, vomiting, abdominal pain, diarrhea, constipation, heartburn, reflux/regurg, frequent belching, hemorrhoids, hematemesis, black tarry stools, melena, hematochezia, coffee grounds emesis, stomach pain relieved by food, hx of jaundice and other Genitourinary-Male: Denies dysuria, frequency, incontinence, hematuria, retention, cloudy or smoky urine, nocturia, kidney stones, urgency, prostate issue, penile discharge, rash or ulcers, impotence, erectile dysfunction, testicular issue, h/o STDs and other Musculoskeletal: Denies neck pain, shoulder pain, arm pain, back pain, hand pain, leg pain, foot pain, thigh or calf cramps, muscle weakness, muscle tenderness, joint swelling, sciatica, muscle pain, joint pain and other Skin/Breasts: Denies rash, lesions, hives, pruritus, bruising, change in color, color changes w/cold, sensitivity to sun, change in hair/nails, breast pain, breast lump, nipple discharge, other, tightness, nodules or bumps and hair loss Neurologic: Denies weakness, numbness, headache, incoordination, change in speech, confusion, dizziness, vertigo, lightheadedness, seizures, muscle spasm, tremors, loss of consciousness, memory loss, sensitivity/pain in hands, sensitivity/pain in feet, abnormal gait, paresthesias and other Psychiatric: Denies No Symptoms/Complaints, anxiety, depression, auditory hallucinations, visual hallucinations, suicidal thoughts, homicidal thoughts, hopelessness, helplessness, change in energy, change in sleep patterns, change in motivation, change in concentration, change in sexual urges, feelings of guilt, anhedonia and other Hematological/Lymphatic: Denies No Symptoms/Complaints, easy bleeding, easy bruising, swollen glands, petechiae, lympathadenopathy, purpura and other Allergic/Immunologic: Denies No Symptoms/Complaints, rash, hives, fever, skin sensitivity, rhinorrhea, night sweats, excessive lacrimation, wheals, flare, latex allergy/sensitivity, seasonal rhinitis and other Physical Exam General Physical Exam Narrative: This is a 60-year-old male is awake alert oriented x3 in mild to moderate distress at the time of presentation secondary to his chief complaint. Limitations: no limitations General appearance: alert Head Head exam: Present atraumatic, normocephalic and normal inspection Eye Eye exam: Present normal apperance, PERRL and EOMI; Absent sc leral icterus and conjunctival injection Pupils: Present normal accommodation ENT ENT exam: Present normal exam and mucous membranes moist Neck Neck exam: Present normal inspection, full ROM and supple; Absent tenderness and meningismus Respiratory Respiratory exam: Present normal lung sounds bilaterally; Absent respiratory distress Cardiovascular Cardiovascular Exam: Present normal rhythm and tachycardia GI/Abdominal GI/Abdominal exam: Present Abd soft, bowel sounds present all quadrents Extremities Exam Extremities exam: Present normal inspection and Full ROM without tenderness, capillary refill brisk Back Exam Back exam: Present normal inspection and full ROM; Absent tenderness, CVA tenderness (R) and CVA tenderness (L) Neurological Exam Neurological exam: Present alert, oriented X3 and CN II-XII intact Psychiatric Psychiatric exam: Present normal affect and anxious Skin Skin exam: Present warm, intact and diaphoretic Vital Signs Vital Signs: Vital Signs 05/29/20 14:10 05/29/20 14:16 05/29/20 14:42 Temperature 98.0 F Pulse Rate 160 H 122 H 120 H Respiratory Rate 18 Blood Pressure 123/80 116/75 116/75 O2 Sat by Pulse Oximetry 98 05/29/20 14:44 05/29/20 16:59 05/29/20 17:01 Temperature Pulse Rate 122 H 132 H 110 H Respiratory Rate 16 Blood Pressure 116/75 107/60 107/60 O2 Sat by Pulse Oximetry 97 MDM (comprehensive) Lab Data Labs: 05/29/20 14:35 05/29/20 14:35 Laboratory Results Last 24 hours 05/29/20 14:30: PT 12.6 H, INR 1.2 H, PTT (Andra) 29.1 05/29/20 14:35: WBC 11.2 H, RBC 5.73, Hgb 17.2, Hct 49.4, MCV 86.2, MCH 30.0, MCHC 34.8, RDW 12, Plt Count 239, MPV 10.3, Immature Gran % (Auto) 1.2, Neut % (Auto) 63.5, Lymph % (Auto) 25.6, Mccone % (Auto) 7.0, Eos % (Auto) 1.9, Baso % (Auto) 0.8, Lymph # (Auto) 2.9, Abs Immat Gran (auto) 0.1, Add Manual Diff No, Absolute Neutrophils 7.1, Monocytes # 0.8, Absolute Eosinophils 0.2, Absolute Basophils 0.1 05/29/20 14:35: Sodium 137, Potassium 5.5, Chloride 105, Carbon Dioxide 23, Anion Gap 15, BUN 22, Creatinine 1.4 H, GFR Calculation 52, Glucose 424 H*, Calcium 9.2, Total Bilirubin 1.2, AST 24, ALT 51 H, Alkaline Phosphatase 93, Creatine Kinase 56, CK-MB (CK-2) 1.1, CK-MB (CK-2) % 1.9, Troponin I 0.055, Serum Total Protein 7.6, Albumin 3.9 05/29/20 14:35: Hemoglobin A1c 10.1 H, Estim Average Glucose 243 05/29/20 14:35: D-Dimer Less than 0.19 05/29/20 16:50: Troponin I 0.061 Microbiology 05/29/20 16:45 Nasopharyngeal Respiratory Panel (PCR) - Final No Organisms Detected EKG Data -: EKG Interpreted by Me EKG Data EKG comments: A. fib with a rapid ventricular response. Appearing Q waves in 3 and aVF which are present on old EKGs. Nonspecific ST changes otherwise. Radiology Data Radiology results: report reviewed Medical Decision Making Free Text/Narative:: 1635 hrs. The patient is now back and to a A. fib with a noncontrolled ventricular response. At this point time we are going to rebolus him with Cardizem and start him on a Cardizem drip. I am going to repeat the troponin and we will obtain a D-dimer. Should be noted that the patient is on Eliquis. Plan Visit Medications Administered ED medications:: Medications Generic Name Dose Route Start Last Admin Trade Name Freq PRN Reason Stop Dose Admin Diltiazem HCl 125 mg/ Sodium 125 mls @ 5 mls/hr 05/29/20 16:39 05/29/20 16:59 Chloride IVC 05/30/20 17:38 5 mg/hr TITR ONE 5 mls/hr Administration Protocol 5 MG/HR Discontinued Medications Generic Name Dose Route Start Last Admin Trade Name Freq PRN Reason Stop Dose Admin Diltiazem HCl Confirm 05/29/20 14:17 09/13 14:44 Diltiazem Hcl 5 Mg/Ml 5 Ml Sdv Administered 05/29/20 14:18 Not Given Dose 25 mg .ROUTE .STK-MED ONE Diltiazem HCl 20 mg 05/29/20 14:15 05/29/20 14:16 Diltiazem Hcl 5 Mg/Ml 5 Ml Sdv IVP 05/29/20 14:16 20 mg 1T ONE Administration Diltiazem HCl 25 mg 05/29/20 16:38 05/29/20 16:56 Diltiazem Hcl 5 Mg/Ml 5 Ml Sdv IVP 05/29/20 16:39 25 mg 1T ONE Administration Sodium Chloride 1,000 mls @ 999 mls/hr 05/29/20 15:34 05/29/20 15:44 Ns 0.9% IV 05/29/20 16:34 999 mls/hr .Q1H1M ONE Administration Insulin Human Regular 10 units 05/29/20 15:34 05/29/20 15:44 Insulin Regular, Human (100 Units/Ml) 3 Ml Vial IVP 05/29/20 15:35 10 unit 1T ONE Administration Protocol Morphine Sulfate 2 mg 05/29/20 15:20 05/29/20 15:46 Morphine Sulfate 2 Mg/Ml Sdv IVP 05/29/20 15:21 2 mg 1T ONE Administration Nitroglycerin 1 inch 05/29/20 14:34 05/29/20 14:42 Nitroglycerin 2% Oint (1 Gm Packet) TP 05/29/20 14:35 1 inch 1T ONE Administration Discharge Plan Admission/Discharge Dx Primary (Admit) Diagnosis: Uncontrolled diabetes, 2 atrial fibrillation with RVR, chest pain ED Provider: José Miguel Shannon ED Status: Physician Time Seen by Provider: 05/29/20 14:30 Triaged At: 05/29/20 13:59 Condition Condition: Improved Discharge Detail Disposition: [facility] to [facility] New Prescriptions: No Action lisinopril 20 mg tablet 40 mg PO DAILY RF: 0 warfarin [Coumadin] 2.5 mg Tablet See Rx Instructions .ROUTE .COMPLEX RF: 0 warfarin [Coumadin] 5 mg Tablet See Rx Instructions .ROUTE .COMPLEX RF: 0 nitroglycerin 0.4 mg tablet, sublingual 0.4 mg sublingual Q5MIN PRN (Reason: Chest Pain) RF: 0 aspirin 81 mg Tablet,Chewable 81 mg PO DAILY RF: 0 atorvastatin 40 mg Tablet 40 mg PO DAILY RF: 0 hydralazine 10 mg Tablet 10 mg PO TID RF: 0 carvedilol 25 mg Tablet 25 mg PO BID RF: 0 gabapentin 600 mg Tablet 600 mg PO TID RF: 0 melatonin [Melatin] 3 mg Tablet 3 mg PO HS RF: 0 famotidine 20 mg Tablet 20 mg PO BID RF: 0 tamsulosin 0.4 mg Capsule 0.4 mg PO DAILY RF: 0 metformin 1,000 mg Tablet 1,000 mg PO BID RF: 0 folic acid 1 mg Tablet 1 mg PO DAILY RF: 0 aripiprazole 5 mg Tablet 5 mg PO DAILY RF: 0 cholecalciferol (vitamin D3) 1,000 unit/drop Drops 1,000 unit PO DAILY RF: 0 duloxetine 60 mg Capsule, Delayed Rel Sprinkle 60 mg PO DAILY RF: 0 *Discharge Patient* Discharge Orders: Provider hand off (NOW); Ordered 05/29/20 Ordered By: José Miguel Shannon Interventions Interventions: ED Cardiac Assessment Last Done: 05/29/20 14:29 Report Signers: <Electronically signed by José Miguel Shannon > José Miguel Shannon 05/29/20 1754 José Miguel Shannon SIGNATURE DA Report Cosigners: D: JAMIL 05/29/20 1440 T: JAMIL 05/29/20 1440 CC: No Family PHYS Provided Name Value Range Interpretation Code Description Data Evelin rce(s) Supporting Document(s) ID Date Data Source [id number] 05/29/2020 04:27:00 PM EST [facility] Name Value Range Interpretation Code Description Data Evelin rce(s) Supporting Document(s) Hemoglobin A1c [Mass/volume] in Blood 10.1 % 3.8-5.6 Above hig h normal [facility] @Review & document. @A repeat was not ne eded due tohistorical results. The following ranges may be used for interpretation of results: HGBA1C degree of glucose control: Greater than 8%: Action Suggested * Less than 7%: Goal of Diabetic Therapy Less than 5.6%: NormalFactors such as duration of diabetes, adherence to therapyand the age of the patient should also be considered inassessing the degree of blood glucose control.* High risk of developing terminal computer operator complications such asretinopathy, nephropathy, neuropathy, cardiopathy, etc. Some danger of hypoglycemic reaction in Type I diabetics.Some glucose intolerant individuals and "Sub Clinical"diabetics may demonstrate HGBA1C levels in this area. Glucose mean value [Moles/volume] in Blood Estimated f rom glycated hemoglobin 243 mg/dL [facility] An A1C of 7% - the goal of diabetic ther apy - is equivalentto an EAG of 154 mg/dl. ID Date Data Source [id number] 05/29/2020 02:46:00 PM EST [facility] Name Value Range Interpretation Code Description Data Evelin rce(s) Supporting Document(s) Leukocytes [#/volume] in Blood by Automated count 11.2 10*3/uL 4.45-10.71 Above high normal [facility] Erythrocytes [#/volume] in Blood by Automated count 5.73 10*6/uL 4.3- 6.1 N [facility] Hemoglobin [Moles/volume] in Blood 17.2 g/dL 13-18 N [facility] Hematocrit [Volume Fraction] of Blood by Automated count 49.4 % 4 2-52 N [facility] Erythrocyte mean corpuscular volume [Ent itic volume] in Cord blood by Automated count 86.2 fL 80-[address] [facility] Erythrocyte mean corpuscular hemoglobin [Entitic mass] by Automated count 30.0 pg 27-31 N [facility] l Erythrocyte mean corpuscular hemoglobin concentration [Mass/volume] in Cord blood 34.8 g/dL 33-37 N [facility] Erythrocyte distribution width [Entitic volume] by Automated count 12 % 11-15 N [facility] Platelets [#/volume] in Blood by Automated count 239 10*3/uL 130-472 N [facility] Platelet mean volume [Entitic volume] in Blood 10.3 fL 9.1-13.1 N [facility] Neutrophils/100 leukocytes in Blood by Automated count 63.5 % 41- 77 N [facility] Neutrophils [#/volume] in Blood by Automated count 7.1 U 1.7-7.6 N [facility] Lymphocytes/100 leukocytes in Blood by Automated count 25.6 % 14- 46 N [facility] Lymphocytes [#/volume] in Blood by Automated count 2.9 U 0.6-4.6 N [facility] Monocytes/100 leukocytes in Blood by Automated count 7.0 % 4-12 N [facility] Monocytes [#/volume] in Blood by Automated count 0.8 U 0.2-1.2 N [facility] Eosinophils/100 leukocytes in Blood by Automated count 1.9 % 0-7 N [facility] Eosinophils [#/volume] in Blood by Automated count 0.2 U 0.0-0.5 N [facility] Basophils/100 leukocytes in Blood by Automated count 0.8 % 0.4-1 .3 N [facility] Basophils [#/volume] in Blood by Automated count 0.1 U 0.0-0.2 N [facility] NUCLEATED RED BLOOD CELL 0 % [facility] NUCLEATED RED BLOOD CELL# 0 U [facility] Immature granulocytes [Presence] in Blood by Automated count 0-2 N [facility] Immature granulocytes [#/volume] in Blood by Automated count 0.1 U 0-0.1 N [facility] Manual Differential panel - Blood NO [facility] ID Date Data Source [id number] 05/29/2020 03:04:00 PM EST [facility] Name Value Range Interpretation Code Description Data Evelin rce(s) Supporting Document(s) Urea nitrogen [Mass/volume] in Serum or Plasma 22 mg/dL 9-23 N [facility] Sodium [Moles/volume] in Serum or Plasma 137 mmol/L 132-146 N [facility] Potassium [Moles/volume] in Serum or Plasma 5.5 mmol/L 3.5-5.5 [facility] Chloride [Moles/volume] in Serum or Plasma 105 mmol/L 99-109 N [facility] Carbon dioxide, total [Moles/volume] in Serum or Plasma 23 mmol/L 20 -31 N [facility] Anion gap in Serum or Plasma 15 mmol/L 8-16 N [facility] Glucose [Mass/volume] in Serum or Plasma 424 mg/dL 74-106 No range defined, or normal ranges don't apply [facility] @Review test & document. []Called to MARCO ANTONIO Sanz @ 0051 by Sumi Mead. Results readback.Repeated by: Sumi Mead 05/29/20 6274.Result Confirmation: 419 mg/dL Creatinine 1.4 mg/dL 0.5-1.1 Above high normal Health system Glomerular filtration rate/1.73 sq M.pre dicted [Volume Rate/Area] in Serum or Plasma 52 ml/min ABOVE 60 [facility] Alanine aminotransferase [Enzymatic acti vity/volume] in Serum or Plasma by With P-5'-P 51 U/L 10-49 Above high normal [facility] Aspartate aminotransferase [Enzymatic ac tivity/volume] in Serum or Plasma by With P-5'-P 24 U/L 0-33 N [facility] pital Alkaline phosphatase [Enzymatic activity/volume] in Serum or Plasma 93 U/L 45-129 N [facility] Calcium [Mass/volume] in Serum or Plasma 9.2 mg/dL 8.5-10.1 N [facility] Bilirubin.total [Mass/volume] in Serum or Plasma 1.2 mg/dL 0.3-1.2 N [facility] Albumin [Mass/volume] in Serum or Plasma by Bromocresol purple (BCP) dye binding method 3.9 g/dL 3.2-4.[address] [facility] Protein [Mass/volume] in Serum or Plasma 7.6 g/dL 5.7-8.2 N [facility] ID Date Data Source [id number] 05/29/2020 03:04:00 PM [facility] Name Value Range Interpretation Code Description Data Evelin rce(s) Supporting Document(s) Creatine kinase [Enzymatic activity/volume] in Serum or Plasma 56 U /L 33-211 N [facility] Creatine kinase.MB [Enzymatic activity/volume] in Serum or P lasma 1.1 ng/mL 0.0-5.0 N [facility] Chemistry studies (set) 1.9 % [facility] ID Date Data Source [id number] 05/29/2020 03:04:00 PM [facility] Name Value Range Interpretation Code Description Data Evelin rce(s) Supporting Document(s) Troponin I.cardiac [Mass/volume] in Serum or Plasma 0.055 ng/mL 0.00- 0.09 [facility] Less than 0.09 NG/ML Negative0.10 - 0.77 NG/ML High Risk0.78 NG/ML or Greater PositiveThe WHO defined the cutoff (definition for diagnosis of IA)for this method as 0.78 ng/ml. ID Date Data Source [id number] 05/29/2020 03:06:00 PM EST [facility] Anticoagulant or Thrombolytic medication : Coumadin/Warfarin Name Value Range Interpretation Code Description Data Evelin rce(s) Supporting Document(s) Prothrombin Time (Patient) 12.6 s 9.6-12.3 Above high normal [facility] INR 1.2 0.9-1.1 Above high normal [facility] THE INR IS OPERATIONALLY DEFINED FOR RIKI SH PLASMA FROMPATIENTS STABILIZED ON ORAL ANTICOAGULANTS.ROUTINE ANTICOAGULANT THERAPY 2.0-3.0RECURRENT SYSTEMIC EMBOLISM/HEART VALVE REPLACEMENT 2.5-3.5 aPTT.lupus sensitive (LA screen) 29.1 s 22.7-31.6 N [facility] ID Date Data Source [id number] 05/29/2020 12:00:00 AM EST [facility] Name Value Range Interpretation Code Description Data Evelin rce(s) Supporting Document(s) SARS-CoV2 Rapid PCR [facility] This lab was ordered by [facility] isabella LEE and reported by [facility]. Procedure Social History Code Duration Value Status Description Data Source(s ) Smoking 01/19/2021 12:00:00 AM EDT Current Smoker completed Curre nt Smoker eCW1 ([facility]) Alcohol intake 07/13/2020 12:00:00 AM EST Current drinker of al cohol (finding) completed Current drinker of alcohol (finding) [facility] Tobacco use and exposure 07/13/2020 12:00:00 AM EST Never used co mpleted Never used Cigarette pack-years 07/13/2020 12:00:00 AM EST UNK completed Cigarettes smoked current (pack per day) - Reported 07/13/19 12:00:00 AM EST UNK completed Smoking 07/13/2020 12:00:00 AM EST Former smoker completed Former smoker 07/11/2020 03:00:59 PM EST Former smoker completed Former smoker [facility] Smoking 07/11/2020 03:00:00 PM EST Former smoker completed Former smoker [facility] 07/05/2020 04:38:11 PM EST Former smoker completed Former smoker [facility] 07/05/2020 04:38:11 PM EST Former smoker completed Former smoker [facility] Smoking 07/05/2020 04:38:00 PM EST Former smoker completed Former smoker [facility] Smoking 07/05/2020 04:38:00 PM EST Former smoker completed Former smoker [facility] Alcohol intake 06/23/2020 12:00:00 AM EST Yes completed [facility] Cigarettes smoked current (pack per day) - Reported 06/23/19 12:00:00 AM EST UNK completed [facility] Smoking 06/23/2020 12:00:00 AM EST Former smoker completed Former smoker [facility] Alcohol intake 06/20/2020 12:00:00 AM EST Current drinker of al cohol (finding) completed Current drinker of alcohol (finding) [facility] 06/15/2020 07:30:28 AM EST Former smoker completed Former smoker [facility] Smoking 06/15/2020 07:30:00 AM EST Former smoker completed Former smoker [facility] 06/06/2020 08:19:34 PM EST Current every day smoker co mpleted Current every day smoker [facility] Smoking 06/06/2020 08:19:00 PM EST Current every day smoker co mpleted Current every day smoker [facility] 05/31/2020 08:09:42 AM EST Current every day smoker co mpleted Current every day smoker [facility] Smoking 05/31/2020 08:09:00 AM EST Current every day smoker co mpleted Current every day smoker [facility] 05/29/2020 02:46:17 PM EST Current every day smoker co mpleted Current every day smoker [facility] Smoking 05/29/2020 02:46:00 PM EST Current every day smoker co mpleted Current every day smoker [facility] 05/26/2016 12:00:00 AM EST - 05/28/2020 12:00:00 AM EST Cigarette Smoker completed Cigarette Smoker 05/26/2016 12:00:00 AM EST - 05/28/2020 12:00:00 AM EST Current smoker completed Current smoker 05/29/2020 12:00:00 AM EST Cigarette Smoker completed Cig arette Smoker [facility] 05/29/2020 12:00:00 AM EST Current smoker completed Curre nt smoker [facility] Vital Signs ID Date Data Source UNK Name Value Range Interpretation Code Description Data Source(s) Body weight 285 [lb_av] 285 [lb_av] eCW1 ([facility]) Body weight 129.28 kg 129.28 kg eCW1 ([facility]) Body height 72 [in_i] 72 [in_i] eCW1 ([facility]) Body mass index (BMI) [Ratio] 38.65 kg/m2 38.65 kg/m2 eCW1 ([facility]) Heart rate 69 /min 69 /min eCW1 ([facility]) Respiratory rate 18 /min 18 /min eCW1 ([facility]) Body temperature 96.6 [degF] 96.6 [degF] eCW1 ( [facility]) Systolic blood pressure 178 mm[Hg] 178 mm[Hg] e CW1 ([facility]) Diastolic blood pressure 88 mm[Hg] 88 mm[Hg] eCW1 ([facility]) Oxygen saturation in Arterial blood by Pulse oximetry 80 % 80 % Heart rate 77 /min 77 /min Respiratory rate 15 /min 15 /min [facility] Systolic blood pressure 139 mm[Hg] 139 mm[Hg] M [facility] Diastolic blood pressure 74 mm[Hg] 74 mm[Hg] Body temperature 35.44 Bernadette 35.44 Bernadette [facility] Body height 182.9 cm 182.9 cm Body weight 128.9 kg 128.9 kg Body mass index (BMI) [Ratio] 38.53 kg/m2 38.53 kg/m2 Systolic blood pressure 134 mm[Hg] 134 mm[Hg] S [facility] Diastolic blood pressure 84 mm[Hg] 84 mm[Hg] [facility] Heart rate 65 /min 65 /min [facility] Body temperature 36.61 Bernadette 36.61 Bernadette [facility] Oxygen saturation in Arterial blood by Pulse oximetry 97 % 97 % [facility] Respiratory rate 14 /min 14 /min [facility] Body weight 127.914 kg 127.914 kg [facility] Body mass index (BMI) [Ratio] 38.25 kg/m2 38.25 kg/m2 [facility] Systolic blood pressure 159 mm[Hg] 159 mm[Hg] [facility] Diastolic blood pressure 88 mm[Hg] 88 mm[Hg] Heart rate 72 /min 72 /min Body temperature 36.5 Bernadette 36.5 Bernadette [facility] Respiratory rate 18 /min 18 /min [facility] Oxygen saturation in Arterial blood by Pulse oximetry 97 % 97 % Body height 182.9 cm 182.9 cm Body weight 127.914 kg 127.914 kg Body mass index (BMI) [Ratio] 38.25 kg/m2 38.25 kg/m2 Heart rate 80 /min 80 /min [facility] ([facility]) Body height 72 [in_i] 72 [in_i] MEDENT ([facility]) 6'0" Systolic blood pressure 120 mm[Hg] 120 mm[Hg] M EDENT ([facility]) Body weight 282.00 [lb_av] 282.00 [lb_av] MEDEN T ([facility]) Body mass index (BMI) [Ratio] 38.2 kg/m2 38.2 k g/m2 [facility] ([facility]) Diastolic blood pressure 80 mm[Hg] 80 mm[Hg] [facility]ENT ([facility]) Patient Treatment Plan of Care Planned Activity Planned Date Details Description Data Source (s) Amlodipine 10 MG Oral Tablet 07/15/2020 12:00:00 AM [facility] Lisinopril 40 MG Oral Tablet 07/15/2020 12:00:00 AM [facility] Hydralazine Hydrochloride 50 MG Oral Tablet 07/14/2020 12:00:00 AM [facility] apixaban 5 MG Oral Tablet 07/14/2020 12:00:00 AM [facility] 3 ML insulin detemir 100 UNT/ML Pen Injector 07/14/2020 12:00:00 AM [facility] 3 ML Insulin, Aspart, Human 100 UNT/ML Pen Injector 07/14/19 12:00:00 AM [facility] aripiprazole 5 MG Oral Tablet 06/24/2020 12:00:00 AM [facility] Lisinopril 10 MG Oral Tablet 06/22/2020 12:00:00 AM [facility] sodium chloride 0.9% solution 06/21/2020 12:00:00 AM [facility] sodium chloride 0.9 % injection 06/21/2020 12:00:00 AM [facility] sodium chloride 0.9 % injection 06/21/2020 12:00:00 AM [facility] Menthol 100 MG/ML / methyl salicylate 150 MG/ML Topica l Cream 06/21/2020 12:00:00 AM [facility] 3 ML insulin detemir 100 UNT/ML Pen Injector 06/21/2020 12:00:00 AM [facility] lidocaine (XYLOCAINE) 10 mg/mL (1 %) injection 06/21/2020 12:00:00 AM [facility] 3 ML Insulin, Aspart, Human 100 UNT/ML Pen Injector 06/21/19 12:00:00 AM [facility] 3 ML Insulin, Aspart, Human 100 UNT/ML Pen Injector 06/21/19 12:00:00 AM [facility] sodium chloride 0.9 % injection 06/21/2020 12:00:00 AM [facility] heparin sodium, porcine 10 UNT/ML Prefilled Syringe 06/21/19 12:00:00 AM [facility] heparin sodium, porcine 10 UNT/ML Prefilled Syringe 06/21/19 12:00:00 AM [facility] Glucose 0.4 MG/MG Oral Gel 06/21/2020 12:00:00 AM [facility] Glucagon 1 MG Injection 06/21/2020 12:00:00 AM [facility] Famotidine 20 MG Oral Tablet 06/21/2020 12:00:00 AM [facility] Cefazolin 2000 MG Injection 06/21/2020 12:00:00 AM [facility] Capsaicin 0.25 MG/ML Topical Cream 06/21/2020 12:00:00 AM [facility] alteplase (CATHFLO ACTIVASE) 2 mg injection 06/21/2020 12:00:00 AM [facility] Ondansetron 4 MG Disintegrating Oral Tablet 06/21/2020 12:00:00 AM [facility] Docusate Sodium 100 MG Oral Capsule 06/21/2020 12:00:00 AM [facility] Acetaminophen 325 MG Oral Tablet 06/21/2020 12:00:00 AM [facility] Warfarin Sodium 5 MG Oral Tablet 07/09/2019 12:00:00 AM [facility] MELATONIN PO [facility] aripiprazole 10 MG Oral Tablet [facility] apixaban 5 MG Oral Tablet [facility] Metformin hydrochloride 1000 MG Oral Tablet
[2021-03-26 20:53] LABS: BASO # 0.1 10^3/uL (0.0-0.2); BASO % 0.7 % (0.0-1.0); EOS # 0.1 10^3/uL (0.0-0.5); HEMOGLOBIN 14.7 g/dl (13.5-17.5); LYMPH # 2.6 10^3/uL (1.5-5.0); LYMPH % 35.9 % (24.0-44.0); MEAN CORPUSCULAR HEMOGLOBIN 29.8 pg (27.0-33.0); MEAN CORPUSCULAR VOLUME 85.2 fl (80.0-96.0); MONO # 0.6 10^3/uL (0.0-0.8); MONO % 8.4 % (2.0-8.0); NEUTROPHILS # 3.7 10^3/uL (1.5-8.5); NEUTROPHILS % 52.2 % (36.0-66.0); PLATELET COUNT, AUTOMATED 204 10^3/uL (150-450); RED BLOOD COUNT 4.93 10^6/uL (4.30-6.10); WHITE BLOOD COUNT 7.2 10^3/uL (4.0-10.0)
[2021-03-26 21:03] LABS: INR 1.1; PROTHROMBIN TIME 14.6 SECONDS (12.7-14.5)
[2021-03-26] MEDS ORDERED: KETOROLAC 30 MG/ML 1ML VIAL IV ONE (21:10)
[2021-03-26] MEDS ORDERED: ACETAMINOPHEN 325 MG TAB PO ONE (21:10)
[2021-03-26 21:24] LABS: ALBUMIN 3.8 GM/DL (3.2-5.2); ALT/SGPT 50 U/L (12-78); BILIRUBIN,DIRECT 0.2 MG/DL (0.0-0.2); BILIRUBIN,TOTAL 0.6 MG/DL (0.2-1.0); LIPASE 73 U/L (73-393)
[2021-03-26] MEDS ORDERED: MORPHINE 4 MG/ML 1ML VIAL/SYRINGE (J2270) IV ONE (21:30)
--- OUTSIDE RECORDS SUMMARY | 2021-03-26 21:33 | CCD ---
Author Author [facility] Organization [facility] Address Unknown Phone Unavailable Care Team Providers Care Radiation Control Specialist Name Role Phone Rolan COTA MD Unavailable [...] Unavailable Mustizer, E Nicolle PA Unavailable Unavailable [facility], [place] [facility] Unavailable Unavailable Rolan ROCKWELL MD Unavailable [...] Unavailable Unavailable Rolan ROCKWELL MD Unavailable Unavailable Roaln ROCKWELL MD Unavailable Unavailable Rolan ROCKWELL MD [...] Unavailable Unavailable LEIBELSPERGER, KD PA Unavailable Unavailable Strassburg, B Chilo MD [...] Daniele Penaloza MD Unavailable Unavailable Ledesma, Daniele Penalzoa MD Unavailable Unavailable Ledesma, Daniele Penaloza MD [...] Joelle Miles MD Unavailable Unavailable Lukasz, Joelle iMles MD Unavailable Unavailable Lukasz, Joelle Miles MD [...] Unavailable Lukasz, R Jd MD Unavailable Unavailable Luksaz, R Jd MD Unavailable Unavailable Lukasz, R [...] Unavailable Unavailable NAMASSPRICILA AMBRIZ MD Unavailable Unavailable NAMASSIVAADLTON ANTHONYAYANI Unavailable Unavailable NAMASSIVAYADALTONAYAMEERA PETERSON Unavailable Unavailable NAMASSIVAYADALTONAYANI MD Unavailable Unavailable NAMASSIVAYA, DALTONAYANI MD Unavailable Unavailable NAMASSIVAYADALTONAYANI Unavailable Unavailable NAMASSIVAYA, DALTONAYANI Unavailable Unavailable NAMASSIVAYADALTONAYANI Unavailable Unavailable NAMASSIVAYA, DALTONAYANI Unavailable Unavailable NAMASSIVAYA, DALTONAYANI MD Unavailable Unavailable NAMASSIVAYA, DALTONAYANI Unavailable Unavailable BIJUASSIVADALTON ANTHONYAYANI Unavailable Unavailable BIJUASSDALTON AMBRIZAYANI Unavailable Unavailable BIJUASSDALTON AMBRIZAYANI Unavailable Unavailable NAMASSIVAYA, DALTONAYANI MD Unavailable Unavailable YAHIR, ATULBHAI RESTORATIONISM Unavailable Unavailable YAHIR, ATULBHAI RESTORATIONISM Unavailable Unavailable YAHIR, ATULBHAI RESTORATIONISM Unavailable Unavailable YAHIR, ATULBHAI RESTORATIONISM Unavailable Unavailable YAHIR, ATULBHAI RESTORATIONISM Unavailable Unavailable YAHIR, ATULBHAI RESTORATIONISM Unavailable Unavailable YAHIR, ATULBHAI RESTORATIONISM Unavailable Unavailable YAHIR, ATULBHAI RESTORATIONISM Unavailable Unavailable YAHIR, ATULBHAI RESTORATIONISM Unavailable Unavailable YAHIR, ATULBHAI RESTORATIONISM Unavailable Unavailable YAHIR, ATULBHAI RESTORATIONISM Unavailable Unavailable YAHIR, ATULBHAI RESTORATIONISM Unavailable Unavailable YAHIR, ATULBHAI RESTORATIONISM Unavailable Unavailable YAHIR, ATULBHAI RESTORATIONISM Unavailable Unavailable YAHIR, ATULBHAI RESTORATIONISM Unavailable Unavailable YAHIR, ATULBHAI RESTORATIONISM Unavailable Unavailable YAHIR, ATULBHAI RESTORATIONISM Unavailable Unavailable YAHIR, ATULBHAI RESTORATIONISM Unavailable Unavailable YAHIR, ATULBHAI RESTORATIONISM Unavailable Unavailable YAHIR, ATULBHAI RESTORATIONISM Unavailable Unavailable YAHIR, ATULBHAI RESTORATIONISM Unavailable Unavailable YAHIR, ATULBHAI RESTORATIONISM Unavailable Unavailable YAHIR, ATULBHAI RESTORATIONISM Unavailable Unavailable Ez MOON MD Unavailable Unavailable [...] Unavailable Unavailable Mika Shaffer MD Unavailable Unavailable Doris DUMAS MD Unavailable Unavailable Doris DUMAS MD Unavailable Unavailable Doris DUMAS MD Unavailable Unavailable Doris DUMAS MD Unavailable Unavailable Doris UDMAS MD Unavailable Unavailable Doris DUMAS MD Unavailable [...] Unavailable Unavailable Elisa Zuniga MD Unavailable Unavailable Elias Zuniga MD Unavailable Unavailable Elisa Zuniga MD [...] Unavailable PARK ROCHA MD Unavailable Unavailable PARK ORCHA MD Unavailable Unavailable PARK ROCHA MD Unavailable Unavailable PARK ROCHA MD Unavailable Unavailable PARK ROCHA MD Unavailable Unavailable PARK ROCHA MD Unavailable Unavailable PRAK ROCHA MD Unavailable Unavailable PARK ROCHA MD Unavailable Unavailable PARK ROCHA MD Unavailable Unavailable PARK ROCHA MD Unavailable Unavailable PARK ROCHA MD Unavailable Unavailable PARK ROCHA MD Unavailable Unavailable PARK ROCHA MD Unavailable Unavailable PARK ROCHA MD Unavailable Unavailable PARK ROCHA MD Unavailable Unavailable INDONESIAN, PARK PETERSON Unavailable Unavailable INDONESIAN, PARK PETERSON Unavailable Unavailable Greta Nicholsh PA-C [...] Unavailable ALFREDO, JOANNA PETERSON Unavailable Unavailable ALFREDO, JOANAN PETERSON Unavailable Unavailable ALFREDO, JOANNA PETERSON Unavailable Unavailable ALFREDO, JOANNA PETERSON Unavailable Unavailable ALFREDO, JOANNA PETERSON Unavailable Unavailable ALFREDO, JOANNA PETERSON Unavailable Unavailable ALFREDO, JOANNA PETERSON Unavailable Unavailable ALFREDO, JOANNA PETERSON Unavailable Unavailable ALFREDO, JOANNA PETERSON Unavailable Unavailable LAFREDO, JOANNA PETERSON Unavailable Unavailable ALFREDO, JOANNA PETERSON Unavailable Unavailable ALFREDO, JOANNA PETERSON Unavailable Unavailable ALFREDO, JOANNA PETERSON Unavailable Unavailable Eddie Wright MD Unavailable Unavailable Laura Sethi MD Unavailable Unavailable Laura Sethi MD Unavailable Unavailable Laura Sethi MD Unavailable Unavailable Laura Stehi MD Unavailable Unavailable Laura Sethi MD Unavailable [...] is protected by Article 27-F of the [facility] Public Health law. If you continue you may have access to information: Regarding HIV / AIDS; Provided by facilities licensed or operated by the [facility] Office of Mental Health; or Provided by the [facility] Office for People With Developmental Disabilities. If such information is present, then the following [facility] mandated warning applies: This information has been [...] law may result in a fine or correction sentence or both. A general authorization for the release of medical or other information is NOT sufficient authorization for further disc losure. Allergies and Adverse Reactions Type Description Substance Reaction Status Data Source(s ) No Known Environmental Allergies No Known Environmental Al lergies [facility] No Known Food Allergies No Known Food Allergies [facility] Propensity to adverse reactions PROCARDIA PROCARDIA sores in mouth [facility] Drug allergy CYCLOBENZAPRINE CYCLOBENZAPRINE AGGITATED, ANXIETY [facility] Drug allergy PROCHLORPERAZINE PROCHLORPERAZINE AGGITATED, ANXIETY [facility] Drug allergy cyclobenzaprine cyclobenzaprine Anxiety [facility] Drug allergy prochlorperazine prochlorperazine Anxiety [facility] Drug allergy nifedipine nifedipine Taste Changes [facility] Propensity to adverse reactions NO ALLERGIES ON FILE NO ALLERGIES ON FILE [facility] Propensity to adverse reactions PROCHLORPERAZINE Prochlorperazine A nxiety Low [facility] Family History Family Member Name Family Member Gender Family Member Status Date o f Status Description Data Source(s) Unknown Condition [facility] Unknown Condition [facility] Unknown Condition [facility] Unknown Condition [facility] Unknown Condition [facility] Unknown Condition [facility] Encounters Encounter Providers Location Date Indications Data Source(s ) Emergency Attender: BANG GRAFConsultant[facility]/19/2021 07:03:00 AM EDT - 02/19/2021 10:57:00 AM EDT [facility] Patient discharged. Outpatient [id number] [facility] [id number] 01/19/2021 12:00:00 AM EDT eCW1 (Critical access hospital) Unknown [address] [facility] [id number] 10/26/2020 12:00:00 AM EDT eCW1 (Critical access hospital) Outpatient Attender: Marvin CLEMENT 10/24/19 10:58:44 AM EDT - 10/23/2020 11:26:27 AM EDT [facility] ([facility] ) INPATIENT Attender: Ileana Ledesma Mark MDAt tender: MICHELLE KEYS MDAttender: MARCK MCDONALD DOAdmitter: MARCK MCDONALD DOConsultant: Ihsan FrancoinerConsultant: PRICILA CISNEROS MDConsultant: JAMES MOON MDConsultant: LATOSHA CHRISTOPHER MDConsultant: Yann Flores MD 2E-IC 07/11/2020 06:20:00 PM ES T - 07/15/2020 11:44:00 AM EST [facility] Patient discharged. Emergency Attender: Mika Shaffer MD 06/26 02:17:00 PM EST - 07/11/2020 04:56:00 PM EST UNCONSCIOUS [facility] UNCONSCIOUS Patient discharged. Outpatient Attender: Jd Lal MDReferrer: Jd Lal MD 07/10/2020 12:48:00 PM EST - 07/10/2020 02:05:00 PM EST [facility] Outpatient Attender: MADAI EDWARDS MD 07/10/2020 08:47:00 AM EST ? BONE INFECTION [facility] ? BONE INFECTION Emergency Attender: WHIT COTA MD 06/26 03:42:00 PM EST - 07/05/2020 07:41:00 PM EST CHEST PAIN [facility] l CHEST PAIN Patient discharged. Inpatient Admitter: Maury Treviño MDReferrer: CARMINA Swain [id number] 06/22/2020 12:47:57 PM EST [facility] Inpatient Attender: Kathryn connell MDAttender: PARK ROCHA MDAttender: Maury Treviño MDAdmitter: Maury Treviño MDConsultant: Elisa Zuniga MD [id number] 06/21/2020 02:44:36 PM EST - 06/23/2020 03:55:00 PM EST [facility] Patient discharged. INPATIENT Attender: MICHELLE KEYS MD Attender: Laura Sethi MDAttender: LOYD SAUCEDO MDAdmitter: Laura Sethi MDConsultant: PRICILA CISNEROS MDConsultant: DARCY ROCKWELL MD 2E-2C 06/16/2020 11:42:00 AM EST - 06/21/2020 01:30:00 PM EST [facility] Patient discharged. Outpatient 2E-MAPA 06/09/2020 08:45:48 AM EST - 021 11:59:00 PM EST [facility] Patient discharged. 2E-CCL 06/09/2020 07:35:43 AM [facility] Inpatient Attender: Isaías Nichols PA-C Attender: Chilo Pineda MDAdmitter: Chilo Pineda MDConsultant: MINH DUMAS MDConsultant: SYDNI KEITAConsultant: Armaan AdcockConsultant: Unique Ford PASConsultant: WHIT FERREIRA MDConsultant: Nicolle Walls PAConsultant: CHRISTO LLAMAS MDConsultant: Raul Magallon MDConsultant: Eddie Wright MDConsultant: WHIT PATHAK PAConsultant: DK DE LA ROSA PAConsultant: Anthony Gonzalez MDConsultant: JOANNA ALFREDO MDConsultant: [facility] 06/08/2020 01:50:00 PM EST - 06/16/2020 10:05:00 AM EST CHEST PAIN [facility] al CHEST PAIN Patient discharged. Outpatient Attender: Tremaine Ledesma MD [facility] 05/26 01:45:00 PM EST [facility] ([facility]) Inpatient Attender: CHRISTO Encinas nder: JOSÉ MIGUEL SHANNON MDAdmitter: CHRISTO LLAMAS MDConsultant: [facility] 05/29/2020 05:39:00 PM EST - 05/31/2020 02:15:00 PM EST AFIB WITH RVR [facility] l AFIB WITH RVR Patient discharged. [...] by mouth 1 (one) time each day. [facility] Lisinopril 40 MG Oral Tablet lisinopriL (PRINIVIL) 40 mg tablet lisinopriL (PRINIVIL) 40 mg tablet 07/15/2020 12:00:00 AM EST 40 mg oral active Take 1 tablet (40 mg total) by mouth 1 (one) time each day. [facility] apixaban 5 MG Oral Tablet apixaban (ELIQUIS) 5 mg tabl et apixaban (ELIQUIS) 5 mg tablet 07/14/2020 12:00:00 AM EST 5 mg oral activ e deep venous thrombosis Take 1 tablet (5 mg total) by mouth 2 (two) times a da y. [facility] deep venous thrombosis Hydralazine Hydrochloride 50 MG Oral Tab let hydrALAZINE (APRESOLINE) 50 mg tablet hydrALAZINE (APRESOLINE) 50 mg tablet 07/14/2020 12:00:00 AM EST 50 mg oral active Take 1 tablet (50 mg total) by mouth 3 (three) times a day. [facility] 3 ML Insulin, Aspart, Human 100 UNT/ML P en Injector insulin aspart (NovoLOG) 100 unit/mL (3 mL) injection insulin aspart (NovoLOG) 100 unit/mL (3 mL) injection 07/14/2020 12:00:00 AM EST 10 U subcutaneous active Inject 10 Units under the skin 3 (three) times a day with meals. [facility] 3 ML insulin detemir 100 UNT/ML Pen Inje ctor insulin detemir (LEVEMIR) 100 unit/mL (3 mL) injection insulin detemir (LEVEMIR) 100 unit/mL (3 mL) injection 07/14/2020 12:00:00 AM EST 30 U subcutaneous active Inject 30 Units under the skin 1 (one) time each day at night. [facility] Lisinopril 40 MG Oral Tablet Lisinopril 07/10/2020 12:47:22 PM EST 40 MG active [facility] Lisinopril 40 MG Oral Tablet Lisinopril 07/10/2020 12:47:22 PM EST 40 MG active [facility] Hydralazine Hydrochloride 10 MG Oral Tablet Hydralazine 07/10/2020 12:46:54 PM EST 10 MG active [facility] Hydralazine Hydrochloride 10 MG Oral Tablet Hydralazine 07/10/2020 12:46:54 PM EST 10 MG active [facility] Famotidine 20 MG Oral Tablet Famotidine 07/10/2020 12:46:03 PM EST 20 MG active [facility] Famotidine 20 MG Oral Tablet Famotidine 07/10/2020 12:46:03 PM EST 20 MG active [facility] atorvastatin 40 MG Oral Tablet Atorvastatin Atorvastatin 07/10/2020 12:45:32 PM EST 40 MG active [facility] atorvastatin 40 MG Oral Tablet Atorvastatin Atorvastatin 07/10/2020 12:45:32 PM EST 40 MG active [facility] apixaban 5 MG Oral Tablet Apixaban (Eliquis) 5 mg tabl et Apixaban (Eliquis) 5 mg tablet 07/10/2020 12:44:59 PM EST 5 MG active [facility] apixaban 5 MG Oral Tablet Apixaban (Eliquis) 5 mg tabl et Apixaban (Eliquis) 5 mg tablet 07/10/2020 12:44:59 PM EST 5 MG active [facility] Insulin Lispro 07/10/2020 12:44:50 PM EST act [facility] Insulin Lispro 07/10/2020 12:44:50 PM EST act [facility] 3 ML Insulin Glargine 100 UNT/ML Pen Inj danuta Insulin Glargine (Lantus Solostar U-100 Insulin) 100 unit/mL (3 mL) insulin pen Insulin Glargine (Lantus Solostar U-100 Insulin) 100 unit/mL (3 mL) insulin pen 07/10/2020 12:44:31 PM EST active [facility] 3 ML Insulin Glargine 100 UNT/ML Pen Inj danuta Insulin Glargine (Lantus Solostar U-100 Insulin) 100 unit/mL (3 mL) insulin pen Insulin Glargine (Lantus Solostar U-100 Insulin) 100 unit/mL (3 mL) insulin pen 07/10/2020 12:44:31 PM EST active [facility] aripiprazole 5 MG Oral Tablet ARIPiprazole (ABILIFY) 5 MG tablet ARIPiprazole (ABILIFY) 5 MG tablet 06/24/2020 12:00:00 AM EST 5 mg Oral active Take 1 tablet (5 mg total) by mouth daily [facility] Insulin Glargine 100 UNT/ML Injectable S olution [...] to 200 mg/dl &nb sp; No Change
[facility] Medication administered onsite Acetaminophen 325 MG / Oxycodone Hydroch loride 5 MG Oral Tablet oxyCODONE- acetaminophen (PERCOCET) 5-325 MG 1 tablet oxyCODONE-acetaminophen (PERCOCET) 5- 325 MG 1 tablet 06/22/2020 04:25:11 PM EST 1 {tbl} Oral a ctive 1 tablet, Oral, Every 4 hours PRN, severe pain (7-10), moderate pain (4-6), Starting Cassidy 06/22/20 at 1625, For 2 days [facility] Medication administered onsite Calcium Chloride 0.0014 MEQ/ML / Potassi um Chloride 0.004 MEQ/ML / Sodium Chloride 0.103 MEQ/ML / Sodium Lactate 0.028 MEQ/ML Injectable Solution lactated ringers infusion lactated ringers infusion 06/22/2020 03:00:00 PM EST 125 mL/h Intravenous active at 125 m L/hr, 125 mL/hr, Intravenous, Continuous, Starting Cassidy 06/22/20 at 1500, PACU (only) [facility] Medication administered onsite Aspirin 81 MG Chewable Tablet aspirin chewable tablet 81 mg aspirin chewable tablet 81 mg 06/22/2020 09:00:00 AM EST 81 mg Oral activ e 81 mg, Oral, Daily, First dose on Cassidy 06/22/20 at 0900 [facility] Medication administered onsite aripiprazole 5 MG Oral Tablet ARIPiprazole (ABILIFY) t ablet 5 mg ARIPiprazole (ABILIFY) tablet 5 mg 06/22/2020 09:00:00 AM EST 5 mg Oral active 5 mg, Oral, Daily, First dose on Cassidy 06/22/20 at 0900 [facility] Medication administered onsite Fluoxetine 20 MG Oral Capsule FLUoxetine (PROzac) caps ule 40 mg FLUoxetine (PROzac) capsule 40 mg 06/22/2020 09:00:00 AM EST 40 mg Oral active 40 mg, Oral, Daily, First dose on Cassidy 06/22/20 at 0900 [facility] Medication administered onsite Lisinopril 20 MG Oral Tablet lisinopril (PRINIVIL,ZEST RIL) tablet 10 mg lisinopril (PRINIVIL,ZESTRIL) tablet 10 mg 06/22/2020 09:00:00 AM EST 10 mg Oral active 10 mg, Oral, Daily, First dose on Cassidy 06/22/20 at 0900 [facility] Medication administered onsite gabapentin 600 MG Oral Tablet gabapentin (NEURONTIN) t ablet 600 mg gabapentin (NEURONTIN) tablet 600 mg 06/22/2020 03:00:00 AM EST 600 mg Oral completed 600 mg, Oral, 3 times daily, Fir st dose on Cassidy 06/22/20 at 0300, For 1 dose [facility] Medication administered onsite Lisinopril 10 MG Oral Tablet lisinopriL (PRINIVIL) 10 mg tablet lisinopriL (PRINIVIL) 10 mg tablet 06/22/2020 12:00:00 AM EST 10 mg oral aborted Take 1 tablet (10 mg total) by mouth 1 (one) time each day. [facility] normal saline flush 0.9 % injection 3 mL [id number] 06/21/2020 10:00:00 PM EST 3 mL Intravenous active 3 mL , Intravenous, PROTOCOL, First dose on Fri06/21/20 at 2200
flush per protocol, D/C Main IV fluid if appropriate
[facility] Medication administered onsite atorvastatin 40 MG Oral Tablet atorvastatin (LIPITOR) tablet 40 mg atorvastatin (LIPITOR) tablet 40 mg 06/21/2020 09:00:00 PM EST 40 mg Oral active 40 mg, Oral, Nightly, First dose on Fri06/21/20 at 2100 [facility] Medication administered onsite Famotidine 20 MG Oral Tablet famotidine (PEPCID) table t 20 mg famotidine (PEPCID) tablet 20 mg 06/21/2020 09:00:00 PM EST 20 mg Oral active 20 mg, Oral, 2 times daily, First dose on Fri06/21/20 at 2100 [facility] Medication administered onsite carvedilol 25 MG Oral Tablet carvedilol (COREG) tablet 25 mg carvedilol (COREG) tablet 25 mg 06/21/2020 09:00:00 PM EST 25 mg Oral activ e 25 mg, Oral, 2 times daily, First dose on Fri06/21/20 at 2099 [facility] Medication administered onsite Amiodarone hydrochloride 200 MG Oral Tablet amiodarone (PACERONE) tablet 200 mg amiodarone (PACERONE) tablet 200 mg 06/21/2020 09:00:00 PM EST 200 mg Oral active 200 mg, Oral, 2 times daily, First dose on Fri06/21/20 at 2099 [facility] Medication administered onsite Insulin Lispro 100 UNT/ML [...] cover POC glucose at 08:00, 12:00, 17:00.
[facility] Medication administered onsite 0.4 ML Enoxaparin sodium [...] not give the dose and call physician/designee.
[facility] Medication administered onsite cefazolin (ANCEF) injection 2 g 06/21/2020 07:00:00 PM EST 2 g Intravenous active Bacteremia 2 g, Intravenou s, Administer over 6 Minutes, Every 8 hours (relative), First dose on Fri06/21/20 at 1900
RN may administer IV push or infuse this medication through syringe adapter set ref [id number]. Flush line after use
[facility] Bacteremia Medication administered onsite Folic Acid 1 MG Oral Tablet folic acid (FOLVITE) table t 1 mg folic acid (FOLVITE) tablet 1 mg 06/21/2020 06:00:00 PM EST 1 mg Oral active 1 mg, Oral, Daily, First dose on Fri06/21/20 at 1800 [facility] Medication administered onsite normal saline flush 0.9 % injection 3 mL [id number] 06/21/2020 06:00:00 PM EST 3 mL Intravenous active 3 mL , Intravenous, Every 8 hours (scheduled), First dose on Fri06/21/20 at 1800
flush per protocol, D/C Main IV fluid if appropriate
[facility] Medication administered onsite Acetaminophen 325 MG Oral Tablet acetaminophen (TYLENO L) 325 MG tablet 650 mg acetaminophen (TYLENOL) 325 MG tablet 650 mg 06/21/2020 05:23:27 PM EST 650 mg Oral active 650 mg, Or al, Every 6 hours PRN, mild pain (1-3), Starting Fri06/21/20 at 1723 [facility] Medication administered onsite 3 ML insulin detemir 100 UNT/ML Pen Inje ctor insulin detemir (LEVEMIR) 100 unit/mL (3 mL) injection insulin detemir (LEVEMIR) 100 unit/mL (3 mL) injection 06/21/2020 12:00:00 AM EST 20 U subcutaneous aborted Inject 20 Units under the skin 1 (one) time each day at night. [facility] Ondansetron 4 MG Disintegrating Oral Tab let ondansetron (ZOFRAN-ODT) 4 mg dispersible tablet ondansetron (ZOFRAN-ODT) 4 mg dispersible tablet 06/21 12:00:00 AM EST 4 mg oral active Take 1 tablet (4 mg total) by mouth every 6 (six) hours if needed for nausea or vomiting for up to 7 days. [facility] Menthol 100 MG/ML / methyl salicylate 15 0 MG/ML Topical Cream methyl salicylate- menthol 15-10 % greaseless cream methyl salicylate-menthol 15-10 % grease less cream 06/21/2020 12:00:00 AM EST 1 {application} topical a ctive Apply 1 application topically 4 (four) times a day if needed for muscle/joint pain. [facility] sodium chloride 0.9 % injection [id number] 06/21/2020 12:00:00 AM ES T 20 mL intravenous aborted Infuse 20 mL into a venous catheter if needed for line care (flush 20 mL IV after blood draws, blood product administration, TPN, precipitates, and viscous solutions). [facility] sodium chloride 0.9 % injection [id number] 06/21/2020 12:00:00 AM ES T 10 mL intravenous aborted Infuse 10 mL into a venous catheter every 8 (eight) hours. [facility] sodium chloride 0.9% solution [id number] 06/21/2020 12:00:00 AM EST 50 mL/h intravenous aborted Infuse 50 mL/ hr into a venous catheter continuously. [facility] Capsaicin 0.25 MG/ML Topical Cream capsaicin (ZOSTRIX) 0.025 % cream capsaicin (ZOSTRIX) 0.025 % cream 06/21/2020 12:00:00 AM EST topical active Apply topically 2 (two) times a day. [facility] alteplase (CATHFLO ACTIVASE) 2 mg injection [id number] 06/21/2020 12:00:00 AM EST 2 mg Intracatheter active 2 mL ( 2 mg total) by Intracatheter route if needed (may repeat x 1. follow catheter clearance policy.). [facility] Cefazolin 2000 MG Injection ceFAZolin (ANCEF) IVPB ceFAZolin (ANCEF) IVPB 06/21/2020 12:00:00 AM EST 2 g intravenous active Infuse 100 mL (2 g total) into a venous catheter every 8 (eight) hours. [facility] Famotidine 20 MG Oral Tablet famotidine (PEPCID) 20 mg tablet famotidine (PEPCID) 20 mg tablet 06/21/2020 12:00:00 AM EST 20 mg oral aborted Take 1 tablet (20 mg total) by mouth 2 (two) times a day. [facility] Docusate Sodium 100 MG Oral Capsule docusate sodium (C OLACE) 100 mg capsule docusate sodium (COLACE) 100 mg capsule 06/21/2020 12:00:00 AM EST 100 mg oral active Take 1 capsule (100 mg total) by mouth 2 (two) times a day if needed for constipation for up to 10 days. [facility] Glucose 0.4 MG/MG Oral Gel glucose (GLUTOSE) 40% gel glucose (GLUTOSE) 40% gel 06/21/2020 12:00:00 AM EST g oral aborted Take 37.5-75 mL (15-30 g total) by mouth if needed for low blood sugar (hypoglycemia treatment protocol). [facility] Glucagon 1 MG Injection glucagon, human recombinant, 1 mg/mL injection glucagon, human recombinant, 1 mg/mL injection 06/21/2020 12:00:00 AM EST 1 mg intramuscular aborted Inject 1 mg into the shoulder, thigh, or buttocks if needed (hypoglycemia treatment panel). [facility] heparin sodium, porcine 10 UNT/ML Prefil led Syringe heparin flush 10 unit/mL injection heparin flush 10 unit/mL injection 06/21/2020 12:00:00 AM EST U intravenous active Infuse 3-9 mL (30-90 Units total) into a venous catheter every 8 (eight) hours. [facility] heparin sodium, porcine 10 UNT/ML Prefil led Syringe heparin flush 10 unit/mL injection heparin flush 10 unit/mL injection 06/21/2020 12:00:00 AM EST 30 U intravenous active Infuse 3 mL ( 30 Units total) into a venous catheter if needed for line care (after each use). [facility] 3 ML Insulin, Aspart, Human 100 UNT/ML P en Injector insulin aspart (NovoLOG) 100 unit/mL (3 mL) injection insulin aspart (NovoLOG) 100 unit/mL (3 mL) injection 06/21/2020 12:00:00 AM EST U subcutaneous aborted Inject 0-10 Units under the skin 4 (four) times a day (before meals and nightly). [facility] sodium chloride 0.9 % injection [id number] 06/21/2020 12:00:00 AM ES T 3 mL intravenous aborted Infuse 3 mL i nto a venous catheter every 8 (eight) hours if needed for line care. [facility] Acetaminophen 325 MG Oral Tablet acetaminophen (TYLENO L) 325 mg tablet acetaminophen (TYLENOL) 325 mg tablet 06/21/2020 12:00:00 AM EST 65 0 mg oral active Take 2 tablets (650 mg total) by mouth every 4 (four) hours if needed for mild pain for up to 10 days. [facility] lidocaine (XYLOCAINE) 10 mg/mL (1 %) injection [id number] 06/21/2020 12:00:00 AM EST mg infiltration active 1-5 mL (10-50 mg total) by infiltration route 1 (one) time if needed (during PICC insertion) for up to 1 dose. [facility] 3 ML Insulin, Aspart, Human 100 UNT/ML P en Injector insulin aspart (NovoLOG) 100 unit/mL (3 mL) injection insulin aspart (NovoLOG) 100 unit/mL (3 mL) injection 06/21/2020 12:00:00 AM EST 8 U subcutaneous aborted Inject 8 Units under the skin 3 (three) times a day with meals. [facility] Pen Needle, Diabetic (Bd Ultra-Fine Orig Pen Needle) 29 gaug e x 1/2" needle 06/01/2020 09:23:31 AM EST 0 active [facility] Pen Needle, Diabetic (Bd Ultra-Fine Orig Pen Needle) 29 gaug e x 1/2" needle 06/01/2020 09:23:31 AM EST 0 active [facility] Pen Needle, Diabetic (Bd Ultra-Fine Orig Pen Needle) 29 gaug e x 1/2" needle 06/01/2020 09:23:31 AM EST 0 active [facility] Pen Needle, Diabetic (Bd Ultra-Fine Orig Pen Needle) 29 gaug e x /2" needle 06/01/2020 09:23:31 AM EST 0 active [facility] Pen Needle, Diabetic (Bd Ultra-Fine Orig Pen Needle) 29 gaug e x /2" needle 06/01/2020 09:23:31 AM EST 0 active [facility] Amiodarone hydrochloride 200 MG Oral Tablet Amiodarone 05/31/2020 08:11:58 AM EST 200 MG active [facility] Amiodarone hydrochloride 200 MG Oral Tablet Amiodarone 05/31/2020 08:11:58 AM EST 200 MG active [facility] Amiodarone hydrochloride 200 MG Oral Tablet Amiodarone 05/31/2020 08:11:58 AM EST 200 MG active [facility] Amiodarone hydrochloride 200 MG Oral Tablet Amiodarone 05/31/2020 08:11:58 AM EST 200 MG active [facility] Amiodarone hydrochloride 200 MG Oral Tablet Amiodarone 05/31/2020 08:11:58 AM EST 200 MG active [facility] Amiodarone hydrochloride 200 MG Oral Tablet Amiodarone 05/31/2020 08:11:58 AM EST 200 MG active [facility] Amiodarone hydrochloride 200 MG Oral Tablet Amiodarone 05/31/2020 08:09:50 AM EST 400 MG active [facility] Amiodarone hydrochloride 200 MG Oral Tablet Amiodarone 05/31/2020 08:09:50 AM EST 400 MG active [facility] Amiodarone hydrochloride 200 MG Oral Tablet Amiodarone 05/31/2020 08:09:50 AM EST 400 MG completed [facility] Amiodarone hydrochloride 200 MG Oral Tablet Amiodarone 05/31/2020 08:09:50 AM EST 400 MG active [facility] Amiodarone hydrochloride 200 MG Oral Tablet Amiodarone 05/31/2020 08:09:50 AM EST 400 MG completed [facility] Amiodarone hydrochloride 200 MG Oral Tablet Amiodarone 05/31/2020 08:09:50 AM EST 400 MG completed [facility] Vitamin B 12 0.5 MG Oral Tablet Cyanocobalamin (Vitami n B-12) Cyanocobalamin (Vitamin B-12) 05/31/2020 12:47:05 AM EST 500 MCG active [facility] Vitamin B 12 0.5 MG Oral Tablet Cyanocobalamin (Vitami n B-12) Cyanocobalamin (Vitamin B-12) 05/31/2020 12:47:05 AM EST 500 MCG active [facility] Amlodipine 10 MG Oral Tablet Amlodipine 05/31/2020 12:47:05 AM EST 10 MG completed [facility] Amlodipine 10 MG Oral Tablet Amlodipine 05/31/2020 12:47:05 AM EST 10 MG completed [facility] Amlodipine 10 MG Oral Tablet Amlodipine 05/31/2020 12:47:05 AM EST 10 MG completed [facility] Amlodipine 10 MG Oral Tablet Amlodipine 05/31/2020 12:47:05 AM EST 10 MG completed [facility] [place]-3 Fatty Acids-Vitamin E 05/31/2020 12:47:05 AM EST 1000 CAP active [facility] [place]-3 Fatty Acids-Vitamin E 05/31/2020 12:47:05 AM EST 1000 CAP active [facility] Trazodone Hydrochloride 100 MG Oral Tablet Trazodone 05/31 12:47:05 AM EST 100 MG active [facility] Trazodone Hydrochloride 100 MG Oral Tablet Trazodone 05/31 12:47:05 AM EST 100 MG active [facility] Vitamin B 12 0.5 MG Oral Tablet Cyanocobalamin (Vitami n B-12) Cyanocobalamin (Vitamin B-12) 05/31/2020 12:47:05 AM EST 500 MCG active [facility] Trazodone Hydrochloride 100 MG Oral Tablet Trazodone 05/31 12:47:05 AM EST 100 MG active [facility] [place]-3 Fatty Acids-Vitamin E 05/31/2020 12:47:05 AM EST 1000 CAP active [facility] Trazodone Hydrochloride 100 MG Oral Tablet Trazodone 05/31 12:47:05 AM EST 100 MG active [facility] [place]-3 Fatty Acids-Vitamin E 05/31/2020 12:47:05 AM EST 1000 CAP active [facility] Vitamin B 12 0.5 MG Oral Tablet Cyanocobalamin (Vitami n B-12) Cyanocobalamin (Vitamin B-12) 05/31/2020 12:47:05 AM EST 500 MCG active [facility] [place]-3 Fatty Acids-Vitamin E 05/31/2020 12:47:05 AM EST 1000 CAP active [facility] Amlodipine 10 MG Oral Tablet Amlodipine 05/31/2020 12:47:05 AM EST 10 MG completed [facility] Vitamin B 12 0.5 MG Oral Tablet Cyanocobalamin (Vitami n B-12) Cyanocobalamin (Vitamin B-12) 05/31/2020 12:47:05 AM EST 500 MCG active [facility] Amlodipine 10 MG Oral Tablet Amlodipine 05/31/2020 12:47:05 AM EST 10 MG completed [facility] Trazodone Hydrochloride 100 MG Oral Tablet Trazodone 05/31 12:47:05 AM EST 100 MG [facility] Trazodone Hydrochloride 100 MG Oral Tablet Trazodone 05/31 12:47:05 AM EST 100 MG active [facility] [place]-3 Fatty Acids-Vitamin E 05/31/2020 12:47:05 AM EST 1000 CAP active [facility] Vitamin B 12 0.5 MG Oral Tablet Cyanocobalamin (Vitami n B-12) Cyanocobalamin (Vitamin B-12) 05/31/2020 12:47:05 AM EST 500 MCG active [facility] Insulin Lispro 05/30/2020 11:57:37 AM EST 7 UNIT c ompleted [facility] Insulin Lispro 05/30/2020 11:57:37 AM EST 7 UNIT c [facility] Insulin Lispro 05/30/2020 11:57:37 AM EST 7 UNIT c [facility] Insulin Lispro 05/30/2020 11:57:37 AM EST 7 UNIT c [facility] Insulin Lispro 05/30/2020 11:57:37 AM EST 7 UNIT c [facility] Insulin Lispro 05/30/2020 11:57:37 AM EST 7 UNIT c [facility] 3 ML Insulin Glargine 100 UNT/ML Pen Inj danuta Insulin Glargine (Lantus Solostar U-100 Insulin) 100 unit/mL (3 mL) insulin pen Insulin Glargine (Lantus Solostar U-100 Insulin) 100 unit/mL (3 mL) insulin pen 05/30/2020 11:56:32 AM EST 35 UNIT completed [facility] 3 ML Insulin Glargine 100 UNT/ML Pen Inj danuta Insulin Glargine (Lantus Solostar U-100 Insulin) 100 unit/mL (3 mL) insulin pen Insulin Glargine (Lantus Solostar U-100 Insulin) 100 unit/mL (3 mL) insulin pen 05/30/2020 11:56:32 AM EST 35 UNIT completed [facility] 3 ML Insulin Glargine 100 UNT/ML Pen Inj danuta Insulin Glargine (Lantus Solostar U-100 Insulin) 100 unit/mL (3 mL) insulin pen Insulin Glargine (Lantus Solostar U-100 Insulin) 100 unit/mL (3 mL) insulin pen 05/30/2020 11:56:32 AM EST 35 UNIT completed [facility] 3 ML Insulin Glargine 100 UNT/ML Pen Inj danuta Insulin Glargine (Lantus Solostar U-100 Insulin) 100 unit/mL (3 mL) insulin pen Insulin Glargine (Lantus Solostar U-100 Insulin) 100 unit/mL (3 mL) insulin pen 05/30/2020 11:56:32 AM EST 35 UNIT completed [facility] 3 ML Insulin Glargine 100 UNT/ML Pen Inj danuta Insulin Glargine (Lantus Solostar U-100 Insulin) 100 unit/mL (3 mL) insulin pen Insulin Glargine (Lantus Solostar U-100 Insulin) 100 unit/mL (3 mL) insulin pen 05/30/2020 11:56:32 AM EST 35 UNIT completed [facility] 3 ML Insulin Glargine 100 UNT/ML Pen Inj danuta Insulin Glargine (Lantus Solostar U-100 Insulin) 100 unit/mL (3 mL) insulin pen Insulin Glargine (Lantus Solostar U-100 Insulin) 100 unit/mL (3 mL) insulin pen 05/30/2020 11:56:32 AM EST 35 UNIT completed [facility] apixaban 5 MG Oral Tablet Apixaban (Eliquis) 5 mg Tabl et Apixaban (Eliquis) 5 mg Tablet 05/29/2020 09:46:51 PM EST 5 MG active [facility] apixaban 5 MG Oral Tablet Apixaban (Eliquis) 5 mg Tabl et Apixaban (Eliquis) 5 mg Tablet 05/29/2020 09:46:51 PM EST 5 MG completed [facility] apixaban 5 MG Oral Tablet Apixaban (Eliquis) 5 mg Tabl et Apixaban (Eliquis) 5 mg Tablet 05/29/2020 09:46:51 PM EST 5 MG active [facility] apixaban 5 MG Oral Tablet Apixaban (Eliquis) 5 mg Tabl et Apixaban (Eliquis) 5 mg Tablet 05/29/2020 09:46:51 PM EST 5 MG active [facility] apixaban 5 MG Oral Tablet Apixaban (Eliquis) 5 mg Tabl et Apixaban (Eliquis) 5 mg Tablet 05/29/2020 09:46:51 PM EST 5 MG active [facility] apixaban 5 MG Oral Tablet Apixaban (Eliquis) 5 mg Tabl et Apixaban (Eliquis) 5 mg Tablet 05/29/2020 09:46:51 PM EST 5 MG completed [facility] apixaban 5 MG Oral Tablet Apixaban (Eliquis) 5 mg Tabl et Apixaban (Eliquis) 5 mg Tablet 05/29/2020 09:46:51 PM EST 5 MG active [facility] Warfarin Sodium 5 MG Oral Tablet warfarin (COUMADIN) 5 MG tablet warfarin (COUMADIN) 5 MG tablet 07/09/2019 12:00:00 AM EST 5 mg Oral aborted Take 1 tablet (5 mg total) by mouth daily on Friday, Friday, and Friday [facility] Melatonin 3 MG Oral Tablet Melatonin (Melatin) 3 mg Ta blet Melatonin (Melatin) 3 mg Tablet 07/07/2019 02:42:31 PM EST 3 MG completed [facility] Hydralazine Hydrochloride 10 MG Oral Tablet Hydralazine 07/07/2019 02:42:31 PM EST 10 MG completed [facility] Famotidine 20 MG Oral Tablet Famotidine 07/07/2019 02:42:31 PM EST 20 MG completed [facility] atorvastatin 40 MG Oral Tablet Atorvastatin Atorvastatin 07/07/2019 02:42:31 PM EST 80 MG completed [facility] Famotidine 20 MG Oral Tablet Famotidine 07/07/2019 02:42:31 PM EST 20 MG completed [facility] Famotidine 20 MG Oral Tablet Famotidine 07/07/2019 02:42:31 PM EST 20 MG completed [facility] Melatonin 3 MG Oral Tablet Melatonin (Melatin) 3 mg Ta blet Melatonin (Melatin) 3 mg Tablet 07/07/2019 02:42:31 PM EST 3 MG completed [facility] Hydralazine Hydrochloride 10 MG Oral Tablet Hydralazine 07/07/2019 02:42:31 PM EST 10 MG completed [facility] Hydralazine Hydrochloride 10 MG Oral Tablet Hydralazine 07/07/2019 02:42:31 PM EST 10 MG completed [facility] Melatonin 3 MG Oral Tablet Melatonin (Melatin) 3 mg Ta blet Melatonin (Melatin) 3 mg Tablet 07/07/2019 02:42:31 PM EST 3 MG completed [facility] Hydralazine Hydrochloride 10 MG Oral Tablet Hydralazine 07/07/2019 02:42:31 PM EST 10 MG completed [facility] atorvastatin 40 MG Oral Tablet Atorvastatin Atorvastatin 07/07/2019 02:42:31 PM EST 80 MG completed [facility] Hydralazine Hydrochloride 10 MG Oral Tablet Hydralazine 07/07/2019 02:42:31 PM EST 10 MG completed [facility] duloxetine Duloxetine Duloxetine 07/07/2019 02:42:31 PM EST 60 M G completed [facility] Melatonin 3 MG Oral Tablet Melatonin (Melatin) 3 mg Ta blet Melatonin (Melatin) 3 mg Tablet 07/07/2019 02:42:31 PM EST 3 MG completed [facility] Famotidine 20 MG Oral Tablet Famotidine 07/07/2019 02:42:31 PM EST 20 MG completed [facility] Famotidine 20 MG Oral Tablet Famotidine 07/07/2019 02:42:31 PM EST 20 MG completed [facility] Melatonin 3 MG Oral Tablet Melatonin (Melatin) 3 mg Ta blet Melatonin (Melatin) 3 mg Tablet 07/07/2019 02:42:31 PM EST 3 MG completed [facility] Hydralazine Hydrochloride 10 MG Oral Tablet Hydralazine 07/07/2019 02:42:31 PM EST 10 MG completed [facility] duloxetine Duloxetine Duloxetine 07/07/2019 02:42:31 PM EST 60 M G completed [facility] Melatonin 3 MG Oral Tablet Melatonin (Melatin) 3 mg Ta blet Melatonin (Melatin) 3 mg Tablet 07/07/2019 02:42:31 PM EST 3 MG completed [facility] Famotidine 20 MG Oral Tablet Famotidine 07/07/2019 02:42:31 PM EST 20 MG completed [facility] Melatonin 3 MG Oral Tablet Melatonin (Melatin) 3 mg Ta blet Melatonin (Melatin) 3 mg Tablet 07/07/2019 02:42:31 PM EST 3 MG completed [facility] Lisinopril 20 MG Oral Tablet Lisinopril 07/06/2019 02:30:43 PM EST 40 MG completed [facility] Warfarin Sodium 2.5 MG Oral Tablet Warfarin (Coumadin) 2.5 mg Tablet Warfarin (Coumadin) 2.5 mg Tablet 07/06/2019 02:30:43 PM EST 0 completed [facility] Lisinopril 20 MG Oral Tablet Lisinopril 07/06/2019 02:30:43 PM EST 40 MG completed [facility] Warfarin Sodium 2.5 MG Oral Tablet Warfarin (Coumadin) 2.5 mg Tablet Warfarin (Coumadin) 2.5 mg Tablet 07/06/2019 02:30:43 PM EST 0 completed [facility] Warfarin Sodium 2.5 MG Oral Tablet Warfarin (Coumadin) 2.5 mg Tablet Warfarin (Coumadin) 2.5 mg Tablet 07/06/2019 02:30:43 PM EST 0 completed [facility] Lisinopril 20 MG Oral Tablet Lisinopril 07/06/2019 02:30:43 PM EST 40 MG completed [facility] Warfarin Sodium 5 MG Oral Tablet Warfarin (Coumadin) 5 mg Tablet Warfarin (Coumadin) 5 mg Tablet 07/06/2019 02:30:43 PM EST 0 completed [facility] Warfarin Sodium 2.5 MG Oral Tablet Warfarin (Coumadin) 2.5 mg Tablet Warfarin (Coumadin) 2.5 mg Tablet 07/06/2019 02:30:43 PM EST 0 completed [facility] Warfarin Sodium 2.5 MG Oral Tablet Warfarin (Coumadin) 2.5 mg Tablet Warfarin (Coumadin) 2.5 mg Tablet 07/06/2019 02:30:43 PM EST 0 completed [facility] Warfarin Sodium 5 MG Oral Tablet Warfarin (Coumadin) 5 mg Tablet Warfarin (Coumadin) 5 mg Tablet 07/06/2019 02:30:43 PM EST 0 completed [facility] Warfarin Sodium 2.5 MG Oral Tablet Warfarin (Coumadin) 2.5 mg Tablet Warfarin (Coumadin) 2.5 mg Tablet 07/06/2019 02:30:43 PM EST 0 completed [facility] Lisinopril 20 MG Oral Tablet Lisinopril 07/06/2019 02:30:43 PM EST 40 MG completed [facility] Warfarin Sodium 2.5 MG Oral Tablet Warfarin (Coumadin) 2.5 mg Tablet Warfarin (Coumadin) 2.5 mg Tablet 07/06/2019 02:30:43 PM EST 0 completed [facility] Warfarin Sodium 5 MG Oral Tablet Warfarin (Coumadin) 5 mg Tablet Warfarin (Coumadin) 5 mg Tablet 07/06/2019 02:30:43 PM EST 0 completed [facility] Lisinopril 20 MG Oral Tablet Lisinopril 07/06/2019 02:30:43 PM EST 40 MG completed [facility] Lisinopril 20 MG Oral Tablet Lisinopril 07/06/2019 02:30:43 PM EST 40 MG completed [facility] Warfarin Sodium 5 MG Oral Tablet Warfarin (Coumadin) 5 mg Tablet Warfarin (Coumadin) 5 mg Tablet 07/06/2019 02:30:43 PM EST 0 completed [facility] Warfarin Sodium 5 MG Oral Tablet Warfarin (Coumadin) 5 mg Tablet Warfarin (Coumadin) 5 mg Tablet 07/06/2019 02:30:43 PM EST 0 completed [facility] Warfarin Sodium 5 MG Oral Tablet Warfarin (Coumadin) 5 mg Tablet Warfarin (Coumadin) 5 mg Tablet 07/06/2019 02:30:43 PM EST 0 completed [facility] Warfarin Sodium 5 MG Oral Tablet Warfarin (Coumadin) 5 mg Tablet Warfarin (Coumadin) 5 mg Tablet 07/06/2019 02:30:43 PM EST 0 completed [facility] Metformin hydrochloride 1000 MG Oral Tab let metFORMIN (GLUCOPHAGE) 1,000 mg tablet metFORMIN (GLUCOPHAGE) 1,000 mg tablet 1000 mg oral aborted Take 1,000 mg by mouth 2 (two) times a day with meals. [facility] MELATONIN PO Oral aborted Take by m outh [facility] aripiprazole 10 MG Oral Tablet ARIPiprazole (ABILIFY) 10 MG tablet ARIPiprazole (ABILIFY) 10 MG tablet 10 mg Oral aborted T miller 10 mg by mouth daily [facility] apixaban 5 MG Oral Tablet apixaban (Eliquis) 5 mg tabl et apixaban (Eliquis) 5 mg tablet 5 mg oral aborted Take 5 m g by mouth 2 (two) times a day. Stop eliquis 06/11/20 pre ep procedure [facility] Insurance Providers Payer name Policy type / Coverage type Policy ID Covered green party ID Covered green party's relationship to byrne Policy [place] Plan Information MEDICARE A [id number] Self [id number] MEDICARE A [id number] Self [id number] MEDICARE [id number] Petra [id number] [id number] OTHER B [id number] Self [id number] OTHER B [id number] Self [id number] HUMANA [id number] Self [id number] WELLCARE MEDICARE [id number] [id number] WELLCARE MEDICARE HMO G [id number] Self [id number] HUMANA [id number] HUMANA [id number] Self [id number] HUMANA MEDICARE ADVANTAGE [id number] Self [id number] HUMANA [id number] Self [id number] INSURANCE COVID-19 COVID Petra C OVID [employer] [place] [employer] [place]/ [id number] Self [id number] WPS [id number] [facility] [id number] SP [id number] COMMERCIAL GENERIC [id number] [id number] COMMERCIAL GENERIC [id number] Petra [id number] [place]OVITAS PART B C [id number] S [id number] ANSI-Medicare Part B [id number] ANSI-Medicare Part B [id number] [employer] [place] [id number] SP [id number] MEDICARE PI PI HUMANA HMO [id number] SP [id number] ADMINSTRATION -O/P [id number] 18 [id number] MEDICARE PART A -O/P [id number] 18 [id number] [employer] [place] CC[place] [id number] SP [id number] ADMINISTRATION [id number] SP [id number] MEDICARE [id number] SP [id number] COMMERCIAL GENERIC [id number] Petra 2 [id number] COMMERCIAL GENERIC [id number] [id number] COMMERCIAL GENERIC [id number] Petra 2 [id number] OTHER B [id number] Self [id number] [facility] O [id number] S [id number] MEDICARE C [id number] S [id number] O [id number] S [id number] Problems, Conditions, and Diagnoses Code Display Name Description Problem Type Effective Dates Data Source(s) M72848 Bathroom of unspecified non- institutional (private) residence as the place of occurrence of the external cause Bathroom of unspecified non- institutional (private) residence as the place of occurrence of the external cause Diagnosis 02/19/2021 07:03:00 AM [facility] [id number] Unspecified fall, initial encounter Unspecified fall, initial encounter Diagnosis 02/19/2021 07:03:00 AM [facility] Z7984 care home (current) use of oral hypoglyc emic drugs care home (current) use of oral hypoglycemic drugs Diagnosis 02/19/2021 07:03:00 AM [facility] [id number] Presence of automatic (implantable) card iac defibrillator Presence of automatic (implantable) cardiac defibrillator Diagnosis 02/20/20 07:03:00 AM [facility] [id number] Personal history of pulmonary embolism P ersonal history of pulmonary embolism Diagnosis 02/19/2021 07:03:00 AM [facility] Z955 Presence of coronary angioplasty implant and graft Presence of coronary angioplasty implant and graft Diagnosis 02/19/2021 07:03:00 AM [facility] Z8673 Personal history of transien t ischemic attack (TIA), and cerebral infarction without residual deficits Personal history of transient ischemic attack (TIA), and cerebral infarction without residual deficits Diagnosis 02/19/2021 07:03:00 AM [facility] S02733 Nicotine dependence, cigarettes, uncompl icated Nicotine dependence, cigarettes, uncomplicated Diagnosis 02/19/2021 07:03:00 AM [facility] I10 Essential (primary) hypertension Essential (primary) h ypertension Diagnosis 02/19/2021 07:03:00 AM [facility] I2510 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 [id number] Strain of other muscles, fas clemencia and tendons at shoulder and upper arm level, left arm, initial encounter Strain of other muscles, fascia and tend ons at shoulder and upper arm level, left arm, initial encounter Diagnosis 02/19/2021 07:03:[address] [facility] [id number] Sprain of left rotator cuff capsule, ini tial encounter Sprain of left rotator cuff capsule, initial encounter Diagnosis 02/19/2021 07:03:[address] [facility] [id number] Pain in left shoulder Pain in left shoulder Diagnosis 02/19/2021 07:03:[address] [facility] R55 Syncope and collapse Syncope and collapse Diagnosis 07/11/2020 06:20:00 PM [facility] RECURRENT SYNCOPE; ENDOCARDITIS RECURRENT SYNCOPE; END OCARDITIS Diagnosis 07/11/2020 06:20:00 PM [facility] T82.7XXA Infection and inflammatory r eaction due to other cardiac and vascular devices, implants and grafts, initial encounter Infection and inflammatory reaction due Diagnosis 06/21/2020 02:44:36 PM [facility] R07.9 Chest pain, unspecified Chest pain, unspecified Diagno sis 06/16/2020 11:42:00 AM [facility] Endocarditis Endocarditis Diagnosis 06/16/2020 11:42:00 A M [facility] I25.10 [id number] Coronary artery dise ase involving iliamna coronary artery of iliamna heart without angina pectoris Problem 01/19/2021 12:00:00 AM EDT eCW1 ([facility]) N40.0 [id number] Benign prostatic hyp erplasia without lower urinary tract symptoms Problem 01/19/2021 12:00:00 AM EDT eCW1 ([facility]) E11.9 [id number] Controlled type 2 di abetes mellitus without complication, without long-term current use of insulin Problem 01/19/2021 12:00:00 AM EDT eCW1 ([facility]) I10 [id number] Essential hypertension Problem 01/19/2021 12 :00:00 AM EDT eCW1 ([facility]) Z86.711 [id number] History of pulmonary embolism Problem 01/19/2021 12:00:00 AM EDT eCW1 ([facility]) I48.0 Paroxysmal atrial fibrillation Paroxysmal atrial fibri llation [id number] 06/21/2020 12:00:00 AM EST [facility] 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 I63.9 Cerebral artery occlusion Cerebral [...] AM EST</td><td></td><td> </td> 07/15/2020 11:17:00 AM EST [facility] POCT GLUCOSE METER UNSOLICITED RESULTS <td>POCT GLUCOS E METER UNSOLICITED RESULTS</td><td>Routine</td><td>07/15/2020 7:20 AM EST</td><td></td><td> </td> 07/15/2020 07:20:00 AM EST [facility] BLOOD COUNT COMPLETE AUTO&AUTO DIFRNTL WBC COUNT <td>H C CBC W/ DIFFERENTIAL</td><td>Routine</td><td>07/15/2020 4:35 AM EST</td><td></td><td> </td> 07/15/2020 04:35:00 AM EST [facility] COMPREHENSIVE METABOLIC PANEL <td>COMPREHENSIVE METABO LIC PANEL</td><td>Routine</td><td>07/15/2020 4:35 AM EST</td><td></td><td> </td> 07/15/2020 04:35:00 AM EST [facility] POCT GLUCOSE METER UNSOLICITED RESULTS <td>POCT GLUCOS E METER UNSOLICITED RESULTS</td><td>Routine</td><td>07/14/2020 8:37 PM EST</td><td></td><td> </td> 07/14/2020 08:37:00 PM EST [facility] POCT GLUCOSE METER UNSOLICITED RESULTS <td>POCT GLUCOS E METER UNSOLICITED RESULTS</td><td>Routine</td><td>07/14/2020 4:48 PM EST</td><td></td><td> </td> 07/14/2020 04:48:00 PM EST [facility] POCT GLUCOSE METER UNSOLICITED RESULTS <td>POCT GLUCOS E METER UNSOLICITED RESULTS</td><td>Routine</td><td>07/14/2020 11:50 AM EST</td><td></td><td> </td> 07/14/2020 11:50:00 AM EST [facility] POCT GLUCOSE METER UNSOLICITED RESULTS <td>POCT GLUCOS E METER UNSOLICITED RESULTS</td><td>Routine</td><td>07/14/2020 7:36 AM EST</td><td></td><td> </td> 07/14/2020 07:36:00 AM [facility] BLOOD COUNT COMPLETE AUTO&AUTO DIFRNTL WBC COUNT <td>H C CBC W/ DIFFERENTIAL</td><td>STAT</td><td>07/14/2020 4:56 AM EST</td><td></td><td> </td> 07/14/2020 04:56:00 AM [facility] BASIC METABOLIC PANEL CALCIUM TOTAL <td>BASIC METABOLI C PANEL</td><td>STAT</td><td>07/14/2020 4:56 AM EST</td><td></td><td> </td> 07/14/2020 04:56:00 AM EST [facility] POCT GLUCOSE METER UNSOLICITED RESULTS <td>POCT GLUCOS E METER UNSOLICITED RESULTS</td><td>Routine</td><td>07/13/2020 8:59 PM EST</td><td></td><td> </td> 07/13/2020 08:59:00 PM EST [facility] POCT GLUCOSE METER UNSOLICITED RESULTS <td>POCT GLUCOS E METER UNSOLICITED RESULTS</td><td>Routine</td><td>07/13/2020 4:02 PM EST</td><td></td><td> </td> 07/13/2020 04:02:00 PM EST [facility] POCT GLUCOSE METER UNSOLICITED RESULTS <td>POCT GLUCOS E METER UNSOLICITED RESULTS</td><td>Routine</td><td>07/13/2020 12:01 PM EST</td><td></td><td> </td> 07/13/2020 12:01:00 PM EST [facility] POCT GLUCOSE METER UNSOLICITED RESULTS <td>POCT GLUCOS E METER UNSOLICITED RESULTS</td><td>Routine</td><td>07/13/2020 8:54 AM EST</td><td></td><td> </td> 07/13/2020 08:54:00 AM [facility] ELECTROENCEPHALOGRAM W/REC AWAKE&ASLEEP <td>EEG- INPATIENT</td><td>Routine</td><td>07/13/2020 8:26 AM EST</td><td></td><td> </td> 07/13/2020 08:26:43 AM [facility] BLOOD COUNT COMPLETE AUTO&AUTO DIFRNTL WBC COUNT <td>H C CBC W/ DIFFERENTIAL</td><td>Routine</td><td>07/13/2020 4:53 AM EST</td><td></td><td> </td> 07/13/2020 04:53:00 AM [facility] BASIC METABOLIC PANEL CALCIUM TOTAL <td>BASIC METABOLI C PANEL</td><td>Routine</td><td>07/13/2020 4:53 AM EST</td><td></td><td> </td> 07/13/2020 04:53:00 AM EST [facility] POCT GLUCOSE METER UNSOLICITED RESULTS <td>POCT GLUCOS E METER UNSOLICITED RESULTS</td><td>Routine</td><td>07/12/2020 9:33 PM EST</td><td></td><td> </td> 07/12/2020 09:33:00 PM EST [facility] POCT GLUCOSE METER UNSOLICITED RESULTS <td>POCT GLUCOS E METER UNSOLICITED RESULTS</td><td>Routine</td><td>07/12/2020 5:14 PM EST</td><td></td><td> </td> 07/12/2020 05:14:00 PM EST [facility] DUPLEX SCAN EXTRACRANIAL ART COMPL BI STUDY <td>ULTRAS OUND CAROTID DOPPLER BILATERAL</td><td>Routine</td><td>07/12/2020 5:01 PM EST</td><td></td><td> </td> 07/12/2020 05:01:55 PM EST [facility] POCT GLUCOSE METER UNSOLICITED RESULTS <td>POCT GLUCOS E METER UNSOLICITED RESULTS</td><td>Routine</td><td>07/12/2020 12:36 PM EST</td><td></td><td> </td> 07/12/2020 12:36:00 PM EST [facility] ECHO TTHRC R-T 2D W/WOM-MODE COMPL SPEC&COLR DOP <td>E CHO 2D MODE PANEL (WITH COLOR FLOW AND DOPPLER)</td><td>Routine</td><td>07/12/2020 9:54 AM EST</td><td></td><td> </td> 07/12/2020 09:54:03 AM EST [facility] XR CHEST 1 VIEW <td>XR CHEST 1 VIEW</td><td> Routine</td><td>07/12/2020 8:21 AM EST</td><td></td><td> </td> 07/12/2020 08:21:42 AM EST [facility] POCT GLUCOSE METER UNSOLICITED RESULTS <td>POCT GLUCOS E METER UNSOLICITED RESULTS</td><td>Routine</td><td>07/12/2020 7:28 AM EST</td><td></td><td> </td> 07/12/2020 07:28:00 AM EST [facility] NATRIURETIC PEPTIDE <td>N-TERMINAL PROBNP (BNP)</td><td>Routine</td><td>07/12/2020 4:29 AM EST</td><td></td><td> </td> 07/12/2020 04:29:00 AM [facility] PROCALCITONIN TEST <td>PROCALCITONIN TEST</td>< td>Routine</td><td>07/12/2020 4:29 AM EST</td><td></td><td> </td> 07/12/2020 04:29:00 AM EST [facility] TROPONIN QUANTITATIVE <td>TROPONIN I</td><td>Routi ne</td><td>07/12/2020 4:29 AM EST</td><td></td><td> </td> 07/12/2020 04:29:00 AM [facility] BLOOD COUNT COMPLETE AUTO&AUTO DIFRNTL WBC COUNT <td>H C CBC W/ DIFFERENTIAL</td><td>Routine</td><td>07/12/2020 4:29 AM EST</td><td></td><td> </td> 07/12/2020 04:29:00 AM EST [facility] MAGNESIUM <td>MAGNESIUM</td><td>Routin e</td><td>07/12/2020 4:29 AM EST</td><td></td><td> </td> 07/12/2020 04:29:00 AM EST [facility] BASIC METABOLIC PANEL CALCIUM TOTAL <td>BASIC METABOLI C PANEL</td><td>Routine</td><td>07/12/2020 4:29 AM EST</td><td></td><td> </td> 07/12/2020 04:29:00 AM EST [facility] POCT GLUCOSE METER UNSOLICITED RESULTS <td>POCT GLUCOS E METER UNSOLICITED RESULTS</td><td>Routine</td><td>07/12/2020 12:04 AM EST</td><td></td><td> </td> 07/12/2020 12:04:00 AM EST [facility] Echocardiography, Profl,Tranthoracic, Realtime Image Documen alicia 07/12/2020 12:00:00 AM EST [facility] ([facility]) CULTURE BACTERIAL BLOOD AEROBIC W/ID ISOLATES <td>BLOO D CULTURE</td><td>STAT</td><td>07/11/2020 9:37 PM EST</td><td></td><td></td> 07/11/2020 09:37:00 PM EST [facility] TROPONIN QUANTITATIVE <td>TROPONIN I</td><td>Routi ne</td><td>07/11/2020 9:29 PM EST</td><td></td><td> </td> 07/11/2020 09:29:00 PM EST [facility] CULTURE BACTERIAL BLOOD AEROBIC W/ID ISOLATES <td>BLOO D CULTURE</td><td>STAT</td><td>07/11/2020 9:29 PM EST</td><td></td><td></td> 07/11/2020 09:29:00 PM [facility] C-REACTIVE PROTEIN <td>C-REACTIVE PROTEIN</td>< td>Routine</td><td>07/11/2020 9:29 PM EST</td><td></td><td> </td> 07/11/2020 09:29:00 PM [facility] Plain chest X-ray (procedure) 07/11/2020 03:06:00 PM [facility] 07/11/2020 12:00:00 AM [facility] Influenza-Like Illness (PCR) 07/11/2020 12:00:00 AM [facility] Magnetic resonance imaging of lumbar spine with contrast (pr ocedure) 07/10/2020 10:31:00 AM [facility] Magnetic resonance imaging of lumbar spine with contrast (pr ocedure) 07/10/2020 10:31:00 AM [facility] Plain chest X-ray (procedure) 07/05/2020 05:23:00 PM [facility] Plain chest X-ray (procedure) 07/05/2020 05:23:00 PM [facility] Plain chest X-ray (procedure) 07/05/2020 05:23:00 PM [facility] CT Head without contrast 07/05/2020 04:36:00 PM [facility] CT Head without contrast 07/05/2020 04:36:00 PM [facility] CT Head without contrast 07/05/2020 04:36:00 PM [facility] Blood culture for bacteria, including anaerobic screen (proc edure) 07/05/2020 12:00:00 AM [facility] Blood culture for bacteria, including anaerobic screen (proc edure) 07/05/2020 12:00:00 AM [facility] Blood Culture 07/05/2020 12:00:00 AM EST [facility] GLUC BLD GLUC MNTR DEV CLEARED FDA SPEC HOME USE <td>P OCT GLUCOSE</td><td>Routine</td><td>06/23/2020 11:33 AM EST</td><td></td><td> </td> 06/23/2020 04:33:00 PM EST [facility] GLUC BLD GLUC MNTR DEV CLEARED FDA SPEC HOME USE <td>P OCT GLUCOSE</td><td>Routine</td><td>06/23/2020 7:38 AM EST</td><td></td><td> </td> 06/23/2020 12:38:00 PM EST [facility] BLOOD COUNT COMPLETE AUTOMATED <td>CBC</td><td>Timed</ td><td>06/23/2020 5:50 AM EST</td><td></td><td> </td> 06/23/2020 10:50:00 AM EST [facility] BASIC METABOLIC PANEL CALCIUM TOTAL <td>BASIC METABOLI C PANEL</td><td>Timed</td><td>06/23/2020 5:50 AM EST</td><td></td><td> </td> 06/23/2020 10:50:00 AM EST [facility] GLUC BLD GLUC MNTR DEV CLEARED FDA SPEC HOME USE <td>P OCT GLUCOSE</td><td>Routine</td><td>06/22/2020 4:58 PM EST</td><td></td><td> </td> 06/22/2020 09:58:00 PM EST [facility] XR CHEST PORTABLE <td>XR CHEST PORTABLE</td><t d>STAT</td><td>06/22/2020 2:46 PM EST</td><td></td><td> </td> 06/22/2020 07:46:35 PM EST [facility] FLUOROSCOPY SPX <1 HOUR PHYSICIAN TIME <td>XR FLUORO U P TO 1 HR</td><td>STAT</td><td>06/22/2020 2:24 PM EST</td><td></td><td> </td> 06/22/2020 07:24:13 PM EST [facility] CULTURE BACTERIAL ANY SOURCE ANAEROBIC ISO&ID <td>ANAE ROBIC TISSUE / BONE CULTURE</td><td>Timed</td><td>06/22/2020 1:23 PM EST</td><td></td><td> </td> 06/22/2020 06:23:00 PM EST [facility] CULTURE BACTERIAL ANY SOURCE ANAEROBIC ISO&ID <td>ANAE ROBIC TISSUE / BONE CULTURE</td><td>Timed</td><td>06/22/2020 1:23 PM EST</td><td></td><td> </td> 06/22/2020 06:23:00 PM EST [facility] CUL BACT ADRIANA AEROBIC ISOL XCPT UR BLOOD/STOOL <td>TIS RADHA / BONE CULTURE</td><td>Timed</td><td>06/22/2020 1:23 PM EST</td><td></td><td> </td> 06/22/2020 06:23:00 PM EST [facility] CUL BACT ADRIANA AEROBIC ISOL XCPT UR BLOOD/STOOL <td>TIS RADHA / BONE CULTURE</td><td>Timed</td><td>06/22/2020 1:23 PM EST</td><td></td><td> </td> 06/22/2020 06:23:00 PM EST [facility] ECG TRANSESOPHAG R-T 2D W/PRB IMG ACQUISJ I&R <td>ECHO CARDIOGRAM TRANSESOPHAGEAL</td><td>Routine</td><td>06/22/2020 12:47 PM EST</td><td></td><td> </td> 06/22/2020 05:47:57 PM EST [facility] BLOOD TYPING ABO <td>TYPE AND SCREEN</td><td> STAT</td><td>06/22/2020 12:05 PM EST</td><td></td><td> </td> 06/22/2020 05:05:00 PM EST [facility] GLUC BLD GLUC MNTR DEV CLEARED FDA SPEC HOME USE <td>P OCT GLUCOSE</td><td>Routine</td><td>06/22/2020 11:31 AM EST</td><td></td><td> </td> 06/22/2020 04:31:00 PM EST [facility] GLUC BLD GLUC MNTR DEV CLEARED FDA SPEC HOME USE <td>P OCT GLUCOSE</td><td>Routine</td><td>06/22/2020 7:32 AM EST</td><td></td><td> </td> 06/22/2020 12:32:00 PM EST [facility] BLOOD COUNT COMPLETE AUTOMATED <td>CBC</td><td>Routine </td><td>06/22/2020 5:50 AM EST</td><td></td><td> </td> 06/22/2020 10:50:00 AM EST [facility] BASIC METABOLIC PANEL CALCIUM TOTAL <td>BASIC METABOLI C PANEL</td><td>Routine</td><td>06/22/2020 5:50 AM EST</td><td></td><td> </td> 06/22/2020 10:50:00 AM EST [facility] THROMBOPLASTIN TIME PARTIAL PLASMA/WHOLE BLOOD <td>APTT</td><td>STAT</td><td>06/21/2020 8:25 PM EST</td><td></td><td> </td> 06/22/2020 01:25:00 AM EST [facility] PROTHROMBIN TIME <td>PROTIME-INR</td><td>STAT </td><td>06/21/2020 8:25 PM EST</td><td></td><td> </td> 06/22/2020 01:25:00 AM EST [facility] GLUC BLD GLUC MNTR DEV CLEARED FDA SPEC HOME USE <td>P OCT GLUCOSE</td><td>Routine</td><td>06/21/2020 6:22 PM EST</td><td></td><td> </td> 06/21/2020 11:22:00 PM EST [facility] HEMOGLOBIN GLYCOSYLATED A1C <td>HEMOGLOBIN A1C</td><td>Routine</td><td>06/21/2020 6:00 PM EST</td><td></td><td> </td> 06/21/2020 11:00:00 PM EST [facility] 2019 NCOV AMPLIFIED <td>2019 NCOV AMPLIFIED</td> <td>STAT</td><td>06/21/2020 3:45 PM EST</td><td></td><td> </td> 06/21/2020 08:45:00 PM EST [facility] POCT GLUCOSE METER UNSOLICITED RESULTS <td>POCT GLUCOS E METER UNSOLICITED RESULTS</td><td>Routine</td><td>06/21/2020 7:33 AM EST</td><td></td><td> </td> 06/21/2020 07:33:00 AM EST [facility] BLOOD COUNT COMPLETE AUTOMATED <td>CBC</td><td>Routine </td><td>06/21/2020 5:00 AM EST</td><td></td><td> </td> 06/21/2020 05:00:00 AM EST [facility] MAGNESIUM <td>MAGNESIUM</td><td>Routin e</td><td>06/21/2020 5:00 AM EST</td><td></td><td> </td> 06/21/2020 05:00:00 AM [facility] COMPREHENSIVE METABOLIC PANEL <td>COMPREHENSIVE METABO LIC PANEL</td><td>Routine</td><td>06/21/2020 5:00 AM EST</td><td></td><td> </td> 06/21/2020 05:00:00 AM [facility] POCT GLUCOSE METER UNSOLICITED RESULTS <td>POCT GLUCOS E METER UNSOLICITED RESULTS</td><td>Routine</td><td>06/20/2020 7:35 PM EST</td><td></td><td> </td> 06/20/2020 07:35:00 PM EST [facility] POCT GLUCOSE METER UNSOLICITED RESULTS <td>POCT GLUCOS E METER UNSOLICITED RESULTS</td><td>Routine</td><td>06/20/2020 5:12 PM EST</td><td></td><td> </td> 06/20/2020 05:12:00 PM EST [facility] POCT GLUCOSE METER UNSOLICITED RESULTS <td>POCT GLUCOS E METER UNSOLICITED RESULTS</td><td>Routine</td><td>06/20/2020 2:14 PM EST</td><td></td><td> </td> 06/20/2020 02:14:00 PM EST [facility] POCT GLUCOSE METER UNSOLICITED RESULTS <td>POCT GLUCOS E METER UNSOLICITED RESULTS</td><td>Routine</td><td>06/20/2020 7:28 AM EST</td><td></td><td> </td> 06/20/2020 07:28:00 AM EST [facility] BASIC METABOLIC PANEL CALCIUM TOTAL <td>BASIC METABOLI C PANEL</td><td>Routine</td><td>06/20/2020 4:58 AM EST</td><td></td><td> </td> 06/20/2020 04:58:00 AM EST [facility] BLOOD COUNT COMPLETE AUTO&AUTO DIFRNTL WBC COUNT <td>H C CBC W/ DIFFERENTIAL</td><td>Routine</td><td>06/20/2020 4:57 AM EST</td><td></td><td> </td> 06/20/2020 04:57:00 AM EST [facility] POCT GLUCOSE METER UNSOLICITED RESULTS <td>POCT GLUCOS E METER UNSOLICITED RESULTS</td><td>Routine</td><td>06/19/2020 9:00 PM EST</td><td></td><td> </td> 06/19/2020 09:00:00 PM EST [facility] POCT GLUCOSE METER UNSOLICITED RESULTS <td>POCT GLUCOS E METER UNSOLICITED RESULTS</td><td>Routine</td><td>06/19/2020 4:03 PM EST</td><td></td><td> </td> 06/19/2020 04:03:00 PM [facility] XR CHEST 1 VIEW <td>XR CHEST 1 VIEW</td><td> Routine</td><td>06/19/2020 12:14 PM EST</td><td></td><td> </td> 06/19/2020 12:14:01 PM [facility] POCT GLUCOSE METER UNSOLICITED RESULTS <td>POCT GLUCOS E METER UNSOLICITED RESULTS</td><td>Routine</td><td>06/19/2020 11:42 AM EST</td><td></td><td> </td> 06/19/2020 11:42:00 AM [facility] ECG TRANSESOPHAG R-T 2D W/PRB IMG ACQUISJ I&R <td>DANIELE</td><td>Routine</td><td>06/19/2020 10:54 AM EST</td><td></td><td> </td> 06/19/2020 10:54:14 AM [facility] BLOOD COUNT COMPLETE AUTO&AUTO DIFRNTL WBC COUNT <td>H C CBC W/ DIFFERENTIAL</td><td>Routine</td><td>06/19/2020 5:00 AM EST</td><td></td><td> </td> 06/19/2020 05:00:00 AM [facility] COMPREHENSIVE METABOLIC PANEL <td>COMPREHENSIVE METABO LIC PANEL</td><td>Routine</td><td>06/19/2020 5:00 AM EST</td><td></td><td> </td> 06/19/2020 05:00:00 AM EST [facility] BASIC METABOLIC PANEL CALCIUM TOTAL <td>BASIC METABOLI C PANEL</td><td>Routine</td><td>06/19/2020 5:00 AM EST</td><td></td><td> </td> 06/19/2020 05:00:00 AM EST [facility] Echocardiography Transesophageal W/Probe Place/Image Acq/Rep ort 06/19/2020 12:00:00 AM EST [facility] ([facility]) Doppler Echocardiography Complete, Profl 06/19/2020 12 :00:00 AM EST [facility] ([facility]) Moderate Sedation Services; Same Phys Intl 15 Mins; PT >= 5 Years 06/19/2020 12:00:00 AM EST [facility]) POCT GLUCOSE METER UNSOLICITED RESULTS <td>POCT GLUCOS E METER UNSOLICITED RESULTS</td><td>Routine</td><td>06/18/2020 9:21 PM EST</td><td></td><td> </td> 06/18/2020 09:21:00 PM EST [facility] POCT GLUCOSE METER UNSOLICITED RESULTS <td>POCT GLUCOS E METER UNSOLICITED RESULTS</td><td>Routine</td><td>06/18/2020 4:08 PM EST</td><td></td><td> </td> 06/18/2020 04:08:00 PM EST [facility] POCT GLUCOSE METER UNSOLICITED RESULTS <td>POCT GLUCOS E METER UNSOLICITED RESULTS</td><td>Routine</td><td>06/18/2020 11:27 AM EST</td><td></td><td> </td> 06/18/2020 11:27:00 AM EST [facility] POCT GLUCOSE METER UNSOLICITED RESULTS <td>POCT GLUCOS E METER UNSOLICITED RESULTS</td><td>Routine</td><td>06/18/2020 7:20 AM EST</td><td></td><td> </td> 06/18/2020 07:20:00 AM EST [facility] BLOOD COUNT COMPLETE AUTO&AUTO DIFRNTL WBC COUNT <td>H C CBC W/ DIFFERENTIAL</td><td>Routine</td><td>06/18/2020 4:30 AM EST</td><td></td><td> </td> 06/18/2020 04:30:00 AM EST [facility] BASIC METABOLIC PANEL CALCIUM TOTAL <td>BASIC METABOLI C PANEL</td><td>Routine</td><td>06/18/2020 4:30 AM EST</td><td></td><td> </td> 06/18/2020 04:30:00 AM EST [facility] POCT GLUCOSE METER UNSOLICITED RESULTS <td>POCT GLUCOS E METER UNSOLICITED RESULTS</td><td>Routine</td><td>06/17/2020 8:18 PM EST</td><td></td><td> </td> 06/17/2020 08:18:00 PM EST [facility] POCT GLUCOSE METER UNSOLICITED RESULTS <td>POCT GLUCOS E METER UNSOLICITED RESULTS</td><td>Routine</td><td>06/17/2020 4:16 PM EST</td><td></td><td> </td> 06/17/2020 04:16:00 PM EST [facility] POCT GLUCOSE METER UNSOLICITED RESULTS <td>POCT GLUCOS E METER UNSOLICITED RESULTS</td><td>Routine</td><td>06/17/2020 11:34 AM EST</td><td></td><td> </td> 06/17/2020 11:34:00 AM EST [facility] POCT GLUCOSE METER UNSOLICITED RESULTS <td>POCT GLUCOS E METER UNSOLICITED RESULTS</td><td>Routine</td><td>06/17/2020 7:08 AM EST</td><td></td><td> </td> 06/17/2020 07:08:00 AM [facility] BLOOD COUNT COMPLETE AUTO&AUTO DIFRNTL WBC COUNT <td>H C CBC W/ DIFFERENTIAL</td><td>Routine</td><td>06/17/2020 5:00 AM EST</td><td></td><td> </td> 06/17/2020 05:00:00 AM [facility] C-REACTIVE PROTEIN HIGH SENSITIVITY <td>HIGH SENSITIVI TY CRP</td><td>Routine</td><td>06/17/2020 5:00 AM EST</td><td></td><td> </td> 06/17/2020 05:00:00 AM [facility] C-REACTIVE PROTEIN <td>C-REACTIVE PROTEIN</td>< td>Routine</td><td>06/17/2020 5:00 AM EST</td><td></td><td> </td> 06/17/2020 05:00:00 AM [facility] COMPREHENSIVE METABOLIC PANEL <td>COMPREHENSIVE METABO LIC PANEL</td><td>Routine</td><td>06/17/2020 5:00 AM EST</td><td></td><td> </td> 06/17/2020 05:00:00 AM [facility] POCT GLUCOSE METER UNSOLICITED RESULTS <td>POCT GLUCOS E METER UNSOLICITED RESULTS</td><td>Routine</td><td>06/16/2020 8:14 PM EST</td><td></td><td> </td> 06/16/2020 08:14:00 PM EST [facility] CULTURE BACTERIAL BLOOD AEROBIC W/ID ISOLATES <td>BLOO D CULTURE</td><td>STAT</td><td>06/16/2020 4:21 PM EST</td><td></td><td></td> 06/16/2020 04:21:00 PM EST [facility] CULTURE BACTERIAL BLOOD AEROBIC W/ID ISOLATES <td>BLOO D CULTURE</td><td>STAT</td><td>06/16/2020 4:21 PM EST</td><td></td><td></td> 06/16/2020 04:21:00 PM [facility] BLOOD COUNT COMPLETE AUTO&AUTO DIFRNTL WBC COUNT <td>H C CBC W/ DIFFERENTIAL</td><td>STAT</td><td>06/16/2020 4:21 PM EST</td><td></td><td> </td> 06/16/2020 04:21:00 PM [facility] MAGNESIUM <td>MAGNESIUM</td><td>STAT</ td><td>06/16/2020 4:21 PM EST</td><td></td><td> </td> 06/16/2020 04:21:00 PM [facility] COMPREHENSIVE METABOLIC PANEL <td>COMPREHENSIVE METABO LIC PANEL</td><td>STAT</td><td>06/16/2020 4:21 PM EST</td><td></td><td> </td> 06/16/2020 04:21:00 PM [facility] POCT GLUCOSE METER UNSOLICITED RESULTS <td>POCT GLUCOS E METER UNSOLICITED RESULTS</td><td>Routine</td><td>06/16/2020 3:30 PM EST</td><td></td><td> </td> 06/16/2020 03:30:00 PM [facility] 06/16/2020 12:00:00 AM [facility] Influenza-Like Illness (PCR) 06/16/2020 12:00:00 AM [facility] 06/16/2020 12:00:00 AM [facility] Influenza-Like Illness (PCR) 06/16/2020 12:00:00 AM [facility] 06/16/2020 12:00:00 AM [facility] Influenza-Like Illness (PCR) 06/16/2020 12:00:00 AM [facility] 06/16/2020 12:00:00 AM [facility] Influenza-Like Illness (PCR) 06/16/2020 12:00:00 AM [facility] Plain chest X-ray (procedure) 06/13/2020 11:25:00 AM [facility] Plain chest X-ray (procedure) 06/13/2020 11:25:00 AM [facility] Plain chest X-ray (procedure) 06/13/2020 11:25:00 AM [facility] Plain chest X-ray (procedure) 06/13/2020 11:25:00 AM [facility] Xray Shoulder complete LT 06/11/2020 04:06:00 PM [facility] Xray Shoulder complete LT 06/11/2020 04:06:00 PM [facility] Xray Shoulder complete LT 06/11/2020 04:06:00 PM [facility] Xray Shoulder complete LT 06/11/2020 04:06:00 PM [facility] Blood culture for bacteria, including anaerobic screen (proc edure) 06/10/2020 12:00:00 AM [facility] Blood culture for bacteria, including anaerobic screen (proc edure) 06/10/2020 12:00:00 AM [facility] Blood culture for bacteria, including anaerobic screen (proc edure) 06/10/2020 12:00:00 AM [facility] l Blood culture for bacteria, including anaerobic screen (proc edure) 06/10/2020 12:00:00 AM [facility] l Introduction of Other Anti-infective int o Peripheral Vein, Percutaneous Approach 06/08/2020 12:00:00 AM [facility] Introduction of Electrolytic and Water B alance Substance into Peripheral Vein, Percutaneous Approach 06/08/2020 12:00:00 AM [facility] Introduction of Other Therapeutic Substa nce into Peripheral Vein, Percutaneous Approach 06/08/2020 12:00:00 AM [facility] Introduction of Analgesics, Hypnotics, S edatives into Peripheral Vein, Percutaneous Approach 06/08/2020 12:00:00 AM [facility] Introduction of Other Anti-infective into Central Vein, Perc utaneous Approach 06/08/2020 [facility], External Approach 06/08/2020 12:00:00 AM [facility] l Insertion of Infusion Device into Upper Vein, Percutaneous A pproach 06/08/2020 12:00:00 AM [facility] l Introduction of Other Anti-infective int o Peripheral Vein, Percutaneous Approach 06/08/2020 12:00:00 AM [facility] Introduction of Electrolytic and Water B alance Substance into Peripheral Vein, Percutaneous Approach 06/08/2020 12:00:00 AM [facility] Introduction of Other Therapeutic Substa nce into Peripheral Vein, Percutaneous Approach 06/08/2020 12:00:00 AM [facility] Introduction of Analgesics, Hypnotics, S edatives into Peripheral Vein, Percutaneous Approach 06/08/2020 12:00:00 AM [facility] Introduction of Other Anti-infective into Central Vein, Perc utaneous Approach 06/08/2020 [facility], External Approach 06/08/2020 12:00:00 AM [facility] l Insertion of Infusion Device into Upper Vein, Percutaneous A pproach 06/08/2020 12:00:00 AM [facility] l Introduction of Other Anti-infective int o Peripheral Vein, Percutaneous Approach 06/08/2020 12:00:00 AM [facility] Introduction of Electrolytic and Water B alance Substance into Peripheral Vein, Percutaneous Approach 06/08/2020 12:00:00 AM [facility] Introduction of Other Therapeutic Substa nce into Peripheral Vein, Percutaneous Approach 06/08/2020 12:00:00 AM [facility] Introduction of Analgesics, Hypnotics, S edatives into Peripheral Vein, Percutaneous Approach 06/08/2020 12:00:00 AM [facility] Introduction of Other Anti-infective into Central Vein, Perc utaneous Approach 06/08/2020 12:00:00 AM [facility] Monitoring of Cardiac Electrical Activity, External Approach 06/08/2020 12:00:00 AM [facility] l Insertion of Infusion Device into Upper Vein, Percutaneous A pproach 06/08/2020 12:00:00 AM [facility] Ultrasonography of abdomen (procedure) 06/07/2020 10:4 9:00 AM [facility] Ultrasonography of abdomen (procedure) 06/07/2020 10:4 9:00 AM [facility] Ultrasonography of abdomen (procedure) 06/07/2020 10:4 9:00 AM [facility] Ultrasonography of abdomen (procedure) 06/07/2020 10:4 9:00 AM [facility] Echocardiography (procedure) 06/07/2020 10:27:00 AM [facility] Echocardiography (procedure) 06/07/2020 10:27:00 AM [facility] Echocardiography (procedure) 06/07/2020 10:27:00 AM [facility] Echocardiography (procedure) 06/07/2020 10:27:00 AM [facility] CT Abdomen without contrast 06/07/2020 03:36:00 AM [facility] CT Abdomen without contrast 06/07/2020 03:36:00 AM [facility] CT Abdomen without contrast 06/07/2020 03:36:00 AM [facility] CT Abdomen without contrast 06/07/2020 03:36:00 AM [facility] Computed tomography angiography of thorax (procedure) 06/06/2020 07:29:00 PM [facility] Computed tomography angiography of thorax (procedure) 06/06/2020 07:29:00 PM [facility] Computed tomography angiography of thorax (procedure) 06/06/2020 07:29:00 PM [facility] Computed tomography angiography of thorax (procedure) 06/06/2020 07:29:00 PM [facility] Computed tomography angiography of thorax (procedure) 06/06/2020 07:29:00 PM [facility] Dual Lead Implantable Cardioverter-Defibrillator 06/06 12:00:00 AM EST [facility]) 06/06/2020 12:00:00 AM [facility] Influenza-Like Illness (PCR) 06/06/2020 12:00:00 AM [facility] Plain chest X-ray (procedure) 05/29/2020 02:34:00 PM E [facility] Plain chest X-ray (procedure) 05/29/2020 02:34:00 PM E [facility] Plain chest X-ray (procedure) 05/29/2020 02:34:00 PM E [facility] Plain chest X-ray (procedure) 05/29/2020 02:34:00 PM E [facility] Plain chest X-ray (procedure) 05/29/2020 02:34:00 PM E [facility] Plain chest X-ray (procedure) 05/29/2020 02:34:00 PM E [facility] Plain chest X-ray (procedure) 05/29/2020 02:34:00 PM [facility] Nucleic acid assay (procedure) 05/29/2020 12:00:00 AM [facility] Nucleic acid assay (procedure) 05/29/2020 12:00:00 AM [facility] Nucleic acid assay (procedure) 05/29/2020 12:00:00 AM [facility] Nucleic acid assay (procedure) 05/29/2020 12:00:00 AM [facility] Nucleic acid assay (procedure) 05/29/2020 12:00:00 AM [facility] Nucleic acid assay (procedure) 05/29/2020 12:00:00 AM [facility] Nucleic acid assay (procedure) 05/29/2020 12:00:00 AM [facility] Results ID Date Data Source [id number] 02/19/2021 06:59:00 PM EDT [facility] [address] [place] [address] PHONE: [phone] FAX: [phone] Name .................. : FRED Peck Acct Number.................. : [id number] [facility] ................... : [id number] Stay type ............. : E/R Discharge Date......... ... : 02/19/21 Admit Date ......... : 02/19/21 Admit Phys .................... : LESIA PIMENTEL Date of ....... : 1960 Family Phys ................... : [facility] Phone .................. : [phone] Age ................................ : 60 Film# .................. .:[id number] Sex ................................. : M Unsigned transcriptions are preliminary reports and do not represent a medical or legal document SHOULDER COMP-2 OR MORE [facility] L [id number] COMPLETE:02/19/21 08:30 [id number] Reason(s): Shoulder Injury RADIOGRAPHS OF THE LEFT [...] rce(s) Supporting Document(s) ID Date Data Source [id number] 02/19/2021 07:03:[address] [facility] [address] [facility] Emergency Department [address] [place] [address] Phone #: ext- [phone] 02/19/2021 07:01 Patient: [...] Damon Little RN (11:33 02/19/2021)][Electronically signed by aBng Graf M.D. (12:48 02/19/2021)][Electronically locked by Damon Little RN (11:33 02/19/2021)] Name Value Range Interpretation Code Description Data Evelin rce(s) Supporting Document(s) ID Date Data Source [id number] 02/19/2021 07:03:[address] [facility] [address] [facility] Emergency Department [address] [place] [address] Phone #: ext- [phone] 02/19/2021 07:01 Patient: [...] rce(s) Supporting Document(s) ID Date Data Source [id number] 02/19/2021 07:03:[address] [facility] [address] [facility] Emergency Department [address] [place] [address] Phone #: ext- [phone] 02/19/2021 07:01 Patient: JAGJIT IBARRA Sex: M : 1960 Age: 60yWeight: 126.5 kgHeight/Length: 72 inBMI: 37.9ALLERGIES: Compazine, Flexeril, Procardia Date/Time Medication Administered Medication OrderedGiven HYDROCODONE-APAP (5-325MG) [PO] HYDROcodone-APAP08:37 02/19/2021 (ACETAMINOPHEN-HYDROCODONE) (5-325mg)PO 1 tab (HIGH Homar Little RN Dose: 1 tab PO MEDICATION) Name Value Range Interpretation Code Description Data Evelin rce(s) Supporting Document(s) ID Date Data Source [id number] 02/19/2021 07:03:[address] [facility] [address] [facility] Emergency Department [address] [place] [address] Phone #: ext [phone] 02/19/2021 07:01 Patient: JAGJIT IBARRA Sex: M [...] to plan of care.Follow-up with: [facility], , , [address] [place] [address], [phone] Follow up in three days even if well. Call for an appointment. Reason for referral: evaluation, treatmentand MRI as needed. Summary of care provided to patient via paper. [address] [facility] Emergency Department [address] [place] [address] Phone #: ext- [phone] 02/19/2021 07:01 Patient: JAGJIT IBARRA [facility]#: [id number] Sex: M : 1960 Age: 60y ADDITIONAL [...] arm that gets worse 3 General Instructions [facility] Emergency Department [address] [place] [address] Phone #: ext- [phone] 02/19/2021 07:01 - Patient: JAGJIT IBARRA Sex: M : 1960 Age: 60y Fingers become cold, blue, numb, or tingly Large amount of bruising of the shoulder or upper arm Fever or chills [id number] [employer] [place] [address]. All rights reserved. This information is not [...] protect it from movement. You may use cbbr-wai-rqzrmzz ibuprofen or naproxen to treat pain and [...] over the painful area [address] [facility] Emergency Department [address] [place] [address] Phone #: ext- [phone] 02/19/2021 07:01 Patient: JAGJIT IBARRA Sex: M : 1960 Age: 60y Increasing pain or swelling at the joint Fever lasting 24 to 48 hours or chills, or as advised by your healthcare provider [phone] [employer]. [address] [place] [address]. All rights reserved. This information is not [...] over, and heavy lifting. You may use pcbq-jqf-lhsqbno pain medicines to control pain, unless another [...] as you are able. [address] [facility] Emergency Department [address] [place] [address] Phone #: ext- [phone] 02/19/2021 07:01 [id number] Sex: M : 1960 Age: 60y Your [...] strength down the arm to the hand [employer]. [address] [place] [address]. All rights reserved. This information is not intended as asubstitute for professional medical care. Always follow your healthcare professional's instructions. You have been given the following additional information: Shoulder Sprain Tendonitis Rotator Cuff Tear Rest until better. Do not work with left hand until better.(Electronically signed by Bang Graf M.D. 02/19/2021 12:48) [address] [facility] Emergency Department [address] [place] [address] Phone #: ext- [phone] 02/19/2021 07:01 Patient: JAGJIT IBARRA Sex: M : 1960 Age: 60y Name Value Range Interpretation Code Description Data Evelin rce(s) Supporting Document(s) ID Date Data Source [id number] 02/19/2021 07:03:[address] [facility] 1 Clinical Report - Nurses 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 SEPSIS SCREEN NEGATIVE. [...] Alberto.WI OBLEMS: 2 Clinical Report - Nurses [facility] Emergency Department [address] [place] [address] Phone #: [phone] 02/19/2021 07:01 Patient: JAGJIT IBARRA Sex: M [...] no barriers. 3 Clinical Report - Nurses [facility] Emergency Department [address] [place] [address] Phone #: ext- [phone] 02/19/2021 07:01 [id number] Sex[facility] M : 1960 Age: 60y FALL RISK ASSESSMENT: Fall risk assessment completed. No risk factors identified. SKIN INTEGRITY ASSESSMENT: Skin integrity risk assessment completed. No skin integrity risk identified. --07:11 02/19/21 DollyCarmelita herediaelyn. Interventions Identification band on patient. --07:11 02/19/21 DollyCarmelita herediaelyn.PHYSICAL ASSESSMENTAmbulatory to room.GENERAL / NEURO / PSYCH: [...] to radiology by wheelchair with mask and laundry technician. ([id number]). --08:51 02/19/21 Damon Little RN Patient returned from radiology by wheelchair with mask and laundry technician. ([id number]). --08:55 02/19/21 Damon Little RN 09:24 02/19/21. BP: 164/117. HR: 95. RR: 16. O2 saturation: 98%. --09:25 02/19/21 Chaya Gibson ED, ER Tech1 09:56 02/19/2021 HYDROCODONE- APAP (5-325MG) PO Response: pain is worsening. Symptoms have gotten worse. The patient feels worse. ED physician notified. --09:56 02/19/21 Damon Little RN 10:09 02/19/21. BP: 181/119. HR: 102. RR: 16. O2 saturation: 98%. --10:09 02/19/21 [facility] Tech1. 4 Clinical Report - Nurses [facility] Emergency Department [address] [place] [address] Phone #: ext- [phone] 02/19/2021 07:01 Patient: JAGJIT IBARRA Sex: M : 1960 Age: 60yDISPOSITION / DISCHARGE 10:44 02/19/21. BP: 163/91. HR: 90. RR: 18. O2 saturation: 99%. Temp: 98.2 F. Pain level now 03/04. --10:44 02/19/21 [facility], [facility] Tech1 10:52 02/19/21. Departure time: 10:52 02/19/2021. [...] rce(s) Supporting Document(s) ID Date Data Source [id number] 02/19/2021 07:03:[address] [facility] 1 Clinical Report - Physicians/Mid Levels [facility] Emergency Department [address] [place] [address] Phone #: ext- [phone] 02/19/2021 07:01 Patient: [...] himself on side handle; pt went to [place] at football game yesterday w/o much pain, [...] 05/2020. 2 Clinical Report - Physicians/Mid Levels [facility] Emergency Department [address] [place] [address] Phone #: ext- [phone] 02/19/2021 07:01 Patient: [...] were 3 Clinical Report - Physicians/Mid Levels [facility] Emergency Department [address] [place] [address] Phone #: ext- [phone] 02/19/2021 07:01 Patient: [...] day. 4 Clinical Report - Physicians/Mid Levels [facility] Emergency Department [address] [place] [address] Phone #: ext- [phone] 02/19/2021 07:01 Patient: [...] plan of care. Follow-up with: [facility], , , [address] [place] [address], [phone] Follow up in three days even if well. Call for an appointment. Reason for referral: evaluation, treatment and MRI as needed. Summary of care provided to patient via paper.(Electronically signed by Bang Graf M.D. 02/19/2021 12:48) Name Value Range Interpretation Code Description Data Evelin rce(s) Supporting Document(s) ID Date Data Source [id number] 10/23/2020 03:34:00 PM EDT [facility] Name Value Range Interpretation Code Description Data Evelin rce(s) Supporting Document(s) SARS coronavirus 2 RNA [Presence] in Res piratory specimen by PARMJIT with probe detection NEGATIVE [facility] This lab was ordered by [facility] a nd reported by [facility]. ID Date Data Source [id number] 09/06/2020 02:00:00 PM EDT [facility] Name Value Range Interpretation Code Description Data Evelin rce(s) Supporting Document(s) [facility] Laboratory test result [facility]) ID Date Data Source [id number] 08/26/2020 12:29:58 PM EDT [facility] Name Value Range Interpretation Code Description Data Evelin rce(s) Supporting Document(s) Progress Notes [facility] PUSHSd2lKbNPTfPn01/REXbfLTGtj3YtKNiiYBb2MFheYCJsX7XrJQT2gJ3yCND8XFtRNiQfCdYiQKXb lbm [file] YswBrwHPUFWir6ECJNGoOpBI1VKQg= ID Date Data Source [id number] 08/26/2020 12:28:43 PM EDT [facility] Name Value Range Interpretation Code Description Data Evelin rce(s) Supporting Document(s) Progress Notes [facility] FYRKZp2qIwYTQmGy71/LMDatVGXju8MvDRbtYVx1RPgaURVvF2SjVKR0cB3sPLR4GMfUCmYlEdEjRAPf lbm [file] TZLjHhOtWIU8HRN+YD3oQWd+Tw3Ey8KebbC8ypWeCKb2Pcc7HFzhCCOVOd7S ID Date Data Source [id number] 08/01/2020 09:04:00 PM EST [facility] Name Value Range Interpretation Code Description Data Evelin rce(s) Supporting Document(s) Life Vest Laboratory test result [facility]) ID Date Data Source [id number] 07/17/2020 08:21:04 AM EST [facility] Name Value Range Interpretation Code Description Data Evelin rce(s) Supporting Document(s) Progress Notes [facility] WAJFHo9zGjZJOoFq85/NMKepESIdg2XuLJwwONk2GAplULStW2ZvRKZ0kR3uSCE1BKsGLgFqOqPjZcTq lbm [file] AgICAgICAgICAgICAgICAgICAgICAgICAgICAgICAg OHLiMZMdRKYgWFNxGPNpDJEgTCZbNHIaQJKyFKOiGBUoGWHiZDIeDRDtTNHpEEItNCMkPIPuPY0FUQAt ICAgICAgICAgICAgICAgICAgICAgICAgICAgICAgICAgICAgICAgICAgICAgICAgICAgICAgICAgICAg ICAgICAgICAgICAgICAgICAgICAgICAgICAgICAgIC EzAZUbID9JNNQnZYGlOBUsUMTzXLPpJLBqMABdHHPwMJKsNHZjWGTcIUGyFOHxZSTkEMFkWVPnGFCaEW WbJEKlBFYbGLAeQAZnJSUxJTUsCCGmDUIgIRWxAAOxRPHqFLUhVWZdVVWaBBLsXM1NYEBhAJHiCQKpNM AgICAgICAgICAgICAgICAgICAgICAgICAgICAgICAg UORaBRWiXVAlSSQsXLRqRISiNKZrTGZzNUVxMASmCRSfPOGvYTNbLJLaULAhZKRzJXIlMFHmCFJoLF5P ICAgICAgICAgICAgICAgICAgICAgICAgICAgICAgICAgICAgICAgICAgICAgICAgICAgICAgICAgICAg ICAgICAgICAgICAgICAgICAgICAgICAgICAgICAgIC RbUNUpUTFeQJ8JGJAxAYRxSCEiBMIsPEJjTZAeLMDaEDTbIIKzTIEbUNSyJNBiMQDwZLLuSHNwTNSvCE FqTSRbIFWdESQgOTGzEEGrCABmBORkJKEoSAMbSQMcEIOrEJCrYKCjIGVzCSTuHUTdPT5NNMMlWPTbWF AgICAgICAgICAgICAgICAgICAgICAgICAgICAgICAg ICAgICAgICAgICAgICAgICAgICAgICAgICAgICAgICAgICAgICAgICAgICAgICAgICAgICAgICAgICAg HX2IFREtCDGxSPGbOXDhIQCwJTJpQYYmVYXrJUPfKCCmQSRhRLWrLTLrWKIhIAGeOBBaCAHuQBBlXMTf ICAgICAgICAgICAgICAgICAgICAgICAgICAgICAgIC AiLHMxNLOaFCMfMC7CLYDhZWEaYRDcUUIbVECnFRReJWAuYIMrSMGyGDQmRTJhTWXoWRGeGSMfVBEbSR IcTLTeUWPkTINbSLSuLLLmNFDkBHNpYPRdZREjICMnTQUoIXGsJDPtXKDxJJScLBEbECBiPB5RQA43sF Zfu4D1XKLfFL9tsaf/Ls1UBClcdiGnsXJsXS2ERjMs TB4acv3DTxLhSK4rqz2PYKmVJbKjH8E7rYCyWLXuLMFCFsBgW86gOZnlKy30PBxmRQRmTmDpSIb8Ss4L ItOtW6btGRBnLtZ2FFIbOcP6KFCtDzL9THNbEcBgVZZpJCXqXEFrQBWYFYV3GJOoEoEdNmCsEQSeLTop QYFEDC3RQkAzN2QhfH10VQpFEs9+DQplbmRvYmoNCj Q1ZAAzf6RlTRb0VV0JIYIoOkacl4TtCOQmZGFXMZinWW1UEIB9KYX1DWYiLm9EFVPpV838lxMqLJ9GZx 7SZmFtCO3axx0EWCYzAKSfYpyHRay0BHwjGO5ImLMlFYnGod2dsrWozlMMs3MuuxIjkAICs2ayNHHwIW SykJFiPN3BLVA9RJNtUVpzUhKaYGYeVDtlVjHMHGvA NyAyX8Tvd4QmSyT2ZYBuTvIcSUwzTOEbZpC1BL97gHkfLJ4MADKhNABpUC22BIM3SYEvKz7JWn1EXfLa WB6nop2ZRZOmYYCaNpbZKct8KRccVH7IpXZtT1JgjWDgk4cKYtOfV1DWFHZbBXOdNg8IDADqRxZeOPNb OQnuLS9nLQEpXCYSiRwhcyL1IJ9VKV7gmeAhIE1DUi IhGg7dYd2PKdJnV7RxB0ThRPQmQMNIJLhaKF7IUCckER6yWP6Uw1DCjAVcyT5yfj2WDFPaGBLmKgwtjh 8ZOomgM0F6fFisPUQzTUCiEMHOTIgjEL5OJCXdRZA8XOK4KlJbNOXEBgIeW08lHX4TB5Pwu48hZoU1SZ OuKiRjXLjbYT48kGyxmpRdlYPlrSzzYJ6DCk1+DQpl bdGvZywQYblqUGNPVhLyJZqKBuFfMPCfDXLmNTYsOxU7AuTsAm0HLBXfYWWcYKMxMlLaNTPrEUPvOSar KUQmMCF5QnB7SEBbWDGmUN1ZMbRhUMOlFSgxLKDzDLYdNTZbvx9SIJXkLVUbUIR9MtKcSERdKAOaZWly HYAnLVCvNpS8CMVvYREvKX2BTpCnQCJzPYR4SamcLZ XjVFZcko8LUWOnNRJnQBZ9KRHtXFNdTXVuEMqeZMBkYEY3Cpl3UCOtAZPbZF1QIuMtMBZzOLX2QYWzPB BrVYLhdu2TECBiMUJjXvFeSBPxDCSbSJCzTTlvEFCtTUC4YmR3ZRWaBKYoPK2VBaZmPSWfGDD1UuKqJJ JeFUDdkr5FAIRiVFUfWIW9XZZjAGNzGEZmNZiqYASc RVU4TQG2WDZxAUDoXQ6ZIfSpJZLuBRv3ErPhOAAeTPSpjy7ZZMTyFLYkXZu2VTGaHSYwDYWbJPsxJENd HXMsRmM3HNVeLTMjSX7DSxHsWEPpXED1YLVpJCOcSXPhrj3KSOYfEHKaDCW2OnBgGTRyOEQwJWkmUUBb DES2FUp1KLGpROGzEW3SBqFfQJTnOVI0CPscTGUsRO Rede4ECMLbEBLaYTX5BRFaVJKlMLUzRJxfNYVqQLY8FZR2YGLwSNTxNX9XRxEpHZJsJLJ9GCrdNLTcNI Jlgg6MXFXaPQGqDrIwXUVpFJHlTTFjGCdkMSUyIZZ4AYo5WSMqQUMfIR3PMmTdYCRcVhx9UlyoHEUgSR Sjpg3TIHSrKBNxFLr0GyMqQGDiGQJuQDbgLNSxYESm JCVtXVUaIQQrLE0IKaAsJYWeYkHvEYXbNUNlELRutk8GHTNcZKFoKFR2OPQkMMMzOLSfCRbzAYOmZPWe UbtnHBIkUHJvEY4UMlRbLEMzTcL6SJXeZCMrSFNgil7HIKBtVKPuSNu0NJQhTPXfVYTfEBuxZCSwVHHa EcWmPJFmHHHlEL2KNsZaHZCsGfL4NHodMCWfEZOmba 0UQAKrKCMwQaM1HUXtVACcXDRkOFwjXCIhLVV8AaejALBkFJEaOW3WHuQzQUQmZAG9VJSzQLJjGCAfga 3RJJRyTQQ2FihjQYNzDKKxQLRnIOrjKYCrIHX3ZPC8KLLiCBYsGQ9IAcQuNJChZChmDSChHCWbGKYkau 9JKWXvZQJ9Bes5RjNdIEHhOJNvXSocNOEnVPX7LjS4 AQFgPNNzYQ4OBrJsHNOsULkzFGwpTFWvDVVzdk3XCAGaDBV8ZKU1KRPxMGNwQBCrSGe2mzBqbDVxJRy6 IV4TR7EmdjHyMMyNNj1Yk888LDH9WOVcSj4SW4adWz5gXIMcJWDOIh5IALh2S6M8UMEzBIz9RYHpEvYx MjgzZDFkNmYwMjMwZTFkMTI+KEnkYDZ2IOY3VAJ8OF R4KUFjHLHxKUR6AkJpBaAcNFVwRh3hSYWESk7+GXmstXYolIklPEDQBhB3Rww0HBleNCCUDk9K ID Date Data Source [id number] 07/17/2020 08:20:49 AM EST [facility] Name Value Range Interpretation Code Description Data Evelin rce(s) Supporting Document(s) Progress Notes [facility] QTFAXk5rYeWZHsUk65/VYKqpGHKgu8ReCVdoXOr3IGyaFIHlH1StAIS1kR6vKFJ3PWjSGyHgQgHjWsLu lbm [file] ICAgICAgICAgICAgICAgICAgICAgICAgICAgICAgIC AgICAgICAgICAgICAgICAgICAgICAgICAgICAgICAgICAgICAgICAgICAgICAgICAgICAgICAgICANCi AgICAgICAgICAgICAgICAgICAgICAgICAgICAgICAgICAgICAgICAgICAgICAgICAgICAgICAgICAgIC AgICAgICAgICAgICAgICAgICAgICAgICAgICAgICAg ICAgICAgICANCiAgICAgICAgICAgICAgICAgICAgICAgICAgICAgICAgICAgICAgICAgICAgICAgICAg ICAgICAgICAgICAgICAgICAgICAgICAgICAgICAgICAgICAgICAgICAgICAgICAgICANCiAgICAgICAg ICAgICAgICAgICAgICAgICAgICAgICAgICAgICAgIC AgICAgICAgICAgICAgICAgICAgICAgICAgICAgICAgICAgICAgICAgICAgICAgICAgICAgICAgICAgIC ANCiAgICAgICAgICAgICAgICAgICAgICAgICAgICAgICAgICAgICAgICAgICAgICAgICAgICAgICAgIC AgICAgICAgICAgICAgICAgICAgICAgICAgICAgICAg ICAgICAgICAgICANCiAgICAgICAgICAgICAgICAgICAgICAgICAgICAgICAgICAgICAgICAgICAgICAg ICAgICAgICAgICAgICAgICAgICAgICAgICAgICAgICAgICAgICAgICAgICAgICAgICAgICANCiAgICAg ICAgICAgICAgICAgICAgICAgICAgICAgICAgICAgIC AgICAgICAgICAgICAgICAgICAgICAgICAgICAgICAgICAgICAgICAgICAgICAgICAgICAgICAgICAgIC AgICANCiAgICAgICAgICAgICAgICAgICAgICAgICAgICAgICAgICAgICAgICAgICAgICAgICAgICAgIC AgICAgICAgICAgICAgICAgICAgICAgICAgICAgICAg ICAgICAgICAgICAgICANCiAgICAgICAgICAgICAgICAgICAgICAgICAgICAgICAgICAgICAgICAgICAg ICAgICAgICAgICAgICAgICAgICAgICAgICAgICAgICAgICAgICAgICAgICAgICAgICAgICAgICANCiAg ICAgICAgICAgICAgICAgICAgICAgICAgICAgICAgIC AgICAgICAgICAgICAgICAgICAgICAgICAgICAgICAgICAgICAgICAgICAgICAgICAgICAgICAgICAgIC AgICAgICANCjw/aBVqB0nwmOWsiiO0E3gqRg7XZr3JUX7mk3ZzGIZxSIirhwWwIqbICwNfYMOzKfjVQo e1OKmiOA2ZaFNdK1KxJ7LwCQrkBZ4VPFVpFRDheQSt RYNlRHWmYuV1TYEyDJszAD0NbUPtGUyrPMUyTWTmSbAaBRCgPDAdGSFpTVJpSSKKZP7UJjMdC3EpiK80 IDQNCj4+MCqjxyAjWdjZZjMqFOEor4JqEKh5ZX6EGZGzKukmd3SuFuRlYAONOBixPH6LJNG7OWEuZFYi Xg2HYXZrU219xrUfHS4IQq2UKeInEB0faw3OOwBcPV XiSseLZky3WDswDZ0XzKXvHDrFep7rrmZnsqGEu2FgywNidVHKLKChd2MqXP8mztRapwHoxPYnXAJBMC G1VTFwIHjzSeSwQMFyWQauLMQNQCtTTcMeH1Lvu2EbErI9EUUrXjXeEYtpTHHfEdF1HH93mKfnBM9OBN GpPNDzAB87VRSqXYGcPv7IVx0LShTzIW5azr0DTwMd FUEzAniKUak1ANziRS6VlZLsX1KlqOOja8xWFiSlZ7ROMZY9CBTfGu1QQZHoHvHbMQWhNImpEM1wNPLl EAYYeDjpaaX0ET2YHH5lvdHeUX0ZIlOxSs4pIq7PEuWvA6IvJ4AqTHUkYQCNTIsdSV4NBNkqYY2pVT2I l2UScWCjsS2awz9ZDHApULCxAlvyyo1SQkaxJ3J1rF thIKHkGkYmQUJCMMieIJ6ANPNsNYI7BEMsJMZmDWRNJbMrH54vVP5WI4Dwr28aOpQ6FMJqCiAjZMesBZ 79vVcepaNuyEBzsSmjZM9STs4+UMovbnTlVjgOKbgzHPONHoClEcQXGjKqSFWzAGAoRTWhXaD5YiQaWe 9XHYCwMGEeMJMrJxFdAGKgDFIpSGckUXZsKLW6DWHr APXmTNSiJY1EEyMfLQUoWge4TAXgERRaTUEkdz9SDREdRJEzPWM0QlRvZGBcKSXjIAzfTDYeSCAqZda1 EXVcDAXpYW3LJjOjTCFoJPU0BDScJGDhAHMgxu1QJUNrZFFfKZWrQPGnFNXgRTWoLYlsPKIaIPS6OTW5 CNJsLBMwWO3OLkWuXCXaUMc5JNFtCFExULKcfv7RXI RyZMKtSds1MyAoPAUlJFOzUBgqZFWgDUW0FDOcCOKxHLSzPX4DTeNyAKYeACtwMIqgUMLsTVBqqu8CVJ XkBLNwHDE3HONkOVFaWDTcGNjdPPZzLZSwNKzuKFVoDBSfYQ9QRdSeEOOlMTG3EvvwNHLhCPJtms5SGB LfXRWgALZsHBQfGQDpKJVfRGhyUBTyQVXwLVK7EXLy GQPkTT3WBaAuVUTvHUNuNGxcFIAnRRItlt1KEVZeRVYyTCR3OuTnEBGpLECwVQkqXGKvOXV4LbuxMXAe WEZpXQ3COtLnARMrOzO5WOUdGCOjSEMdxh7BVSVwFZKjFQQyLnIyTWImJXFwSGqwSUCkXON4ScD9RYCo LOCrWC3ILtWyBEYoCzZwYTSeXZAoYCSmri8MHTSiFX StEbUrYqDtIXPyUPQoVMqlMCFfZAR9YVrxREDkAIZfIZ6IXeKdQREgIgl5YiCpULRbPRQvmd5OHAJxXL SfXfnsJoGpPGYkWPZpTEddIJXnWZH1NPcsHISzTKFzQR9CSgBqACXmIzfmLYEyCSKwLXVdkp7GCDPsHR PiQEf2LSPfMPYqPDWoNOjlCVThUAJ2PMNpJNGaGJGt BJ5EQfRbAZShBto3UFWjMKXbDLMgmz1TuXEcoGlojs4OXGfOOk1UeYtcQOU3ZInrMz3knFEdWeZwBYTF Qr5YayCdEEVjTAATRWznKDImXIOrEsUqWXCiERkgWcLpEqqzNNEhV2QdChhrLNV9SdxdFbR4SgQiDiXq SqQ9BOXeUyDcYNF8MUDoT9OxLYZ3ICoiUFA+IF0g DQo+Qf1My9JzhgB8wpEeJPpoHFHcJO4NTXMJI5DQQh== ID Date Data Source [id number] 07/15/2020 11:51:32 AM EST [facility] Name Value Range Interpretation Code Description Data Evelin rce(s) Supporting Document(s) Nursing Note [facility] MMXJSz2pQsXTBiYa65/HGEqsAQNco7EwFBjoSFe5LJjuKXLjX6AaBKX3uQ1fWOD9WUdMFhKgSmDjQfBm lbm [file] DQo= ID Date Data Source [id number] 07/15/2020 11:38:22 AM EST [facility] Name Value Range Interpretation Code Description Data Evelin rce(s) Supporting Document(s) Discharge Summary [facility] UINCNo1tZsZGNsQi28/XUXcwDXGqa5XvKAheZPr7WRizAZFdH4YkCWB2kC6aEEA8IRhWBuJfRiUlNfLt lbm HiRrvHOxMySPExTgdJZqAvDNylCxrbzQLqVA7GxZR1CMSoU03yBTMxXWNrU8BbYRYrJDV+Ui4IHSTwtY QrSP0JYhcM2Qzoi9y9SX8iuQ+Hnx1XXsPfjXPsJQiVKuvWJy4nkO/cRdrPyFW6uzDnP/zfjzIlW9+Vvc cu7kAI0fC2bxk832sfMM8xxJv//mUECwMRlhof0stT fun4B49/Y0Wbof1b8s1EQextuVZ7zKOoZ/OjpbP8cSbgL/OLkJTJE2kBCntGSyqm6otR8cAw3sryFq0U 168j2oFcgBq4c2AHLBo2JtlPZ1i+FtzuDCaLBz3eZacGM1IVC7/Ih0TAzWlKJtVWrTKraLcFuqVUVMRc jQHtG9FG1p1MN1QVh7QQGPMg0nb3WJkJocmZfE2MVd 06wYG3wD3kKZ09VjavbNyBw8DLOhVdZ7gfrJ4x2G+BLyG3FivhH2UUM9EwL19gkVXriyuSFfLA2tB3UV FtRMWx8dkgKwPOj1cbmBjFqajdMo8ylJBwSxFQz6liQ/avzDi4rBa2+EoyiBT7LKsDyM20Nu5/dt403s wzMxfpvjwmPjvazplWvvNhG8qpptmLRTmbnFo1Wa7H [file] ICAgICAgICAgICAgICAgICAgICAgICAgICAgICAgICAgICAgICAgICAgICAgICAgICAgICAgICAgICAg ZXIrDWFwEUAkLAEsOMSwJJJgLQApLDWyRVGwXIOnQVVmLG8FXOTxPJPrKXSmPITrLUEoQFBqBIWuAGOr ICAgICAgICAgICAgICAgICAgICAgICAgICAgICAgIC BmPDEpCTCjPIOxIETeIVSkJDZfLHBdVFEdACUzNODmYACjDQXlKXDpZIUnIR4XDZRoEZPeHTSuPIIzAT AgICAgICAgICAgICAgICAgICAgICAgICAgICAgICAgICAgICAgICAgICAgICAgICAgICAgICAgICAgIC IlCGQiQITvXBJtUZUkCPGlYXQxWMHdYUIoBF9YJUPi ICAgICAgICAgICAgICAgICAgICAgICAgICAgICAgICAgICAgICAgICAgICAgICAgICAgICAgICAgICAg YMDoXZYoHREvUCZlZIFpPNYxRSOuKRUcNDHoFDEmBMIxFZEkZQ0KACDbMTRoOMRrWYZlOVHzLJQcVVJy ICAgICAgICAgICAgICAgICAgICAgICAgICAgICAgIC BzSVSjJPKsQMSdAGWrXLWpMSXdLDHrSZItRZXhKNVcHNKzXVAcTBJgVHNiEHGyUV3KKRDyRBVoZECuVS AgICAgICAgICAgICAgICAgICAgICAgICAgICAgICAgICAgICAgICAgICAgICAgICAgICAgICAgICAgIC NzLIRmDTDlAECaVRTyVUBwAOBkNPYoRBYdTBFjME7V ICAgICAgICAgICAgICAgICAgICAgICAgICAgICAgICAgICAgICAgICAgICAgICAgICAgICAgICAgICAg EQXxUTMyNJTeWNPtRDXrQWKtCWWeFTIsLLMnKATdZNHaNUQmPKKaTX5NDELqLIQwSXXaMMAdBTMwOIPr ICAgICAgICAgICAgICAgICAgICAgICAgICAgICAgIC XnOFRgSJLmZQVyETQtSQUaRRMgMEVnXPYyPVUeXJOwHHJbHPDiBLWjWHGxRHVzRLHnOX2MRKHgTIJwCP AgICAgICAgICAgICAgICAgICAgICAgICAgICAgICAgICAgICAgICAgICAgICAgICAgICAgICAgICAgIC AgICAgICAgICAgICAgICAgICAgICAgICAgICAgICAg JY5GPTIhMNBiHJGxUJBtWLAaHVJjHPUoQNWvXHFhQEFpIXNlVYThJEErHHPcXNLsMECcTFMvGGNuLYQs MUReDHOjWQTnKKQqGDOeUIUbUCVpDOUjTWObUCQsTZAhVJPfWDNnSRPwSU4GJW30mXGcq8C4VXVbQV5a dyc/Nd9KULxubtNsiWJeVR5FDcZuBU3iqn9RMjDfTT 8ghn1HBNvXXfYkG8X8nWQxLJPbSRFIObDmR14yWPsxPq23VGylIHQsKiCuAHg2Sr6SIgHnO4kdKIFgCd Y3KFRaJeHdNIwkFO6Zg2RdbGBdRDh+Nd5TUW3ss5WrYPvrWITeCR4zui1AREaMSnZeW7SzxyK8TGR2YL RoIm8AZNPsFQVkmVPlXoKrCOGMMiYlO4BgiP18DILQ Cj4+WXlfunLeJlhNSfG7UZMdh9PkCUy8TN4WEEJzITk6kBEnXRnuT2xrywycGCG2dV5yeiwvHlijRbL3 CCohvt5sDSTnBmlzQEGwTCTyTj4wKN8tBTLsZHIcJwA9OTUVCG4RVJGcUQZwzUMhYRJdNELJEY2GSFxl SJM6ZkfbfmWunKFlXOjkUT5PXPWalrCnFnVpTMBYAU o+Bh1URR5xu6VvCSwaZwVyAT0ljq4KVVfFQgZrK0C3fDCvT9Q6SAaaSj0MYFSiNPQfBgLcCGYUDUobWJ 8ZOL5btiB5WG8MsTTuEAAvMCUgkDZhDBw1G59gzGBsMCgkMS7YWKB+Yadira+No6VDXZhEZIrJHWmDiVmZB THKkWmR3ArN3BGb9AyY8IhPF43aPkngeEjOWivWB4G WO4wGLYsBCPCWG2AoJCuxB8uouZbBIPwRXQTBgRwG91ckLBmOWLyGYU9IKDmPd9FMQHbT0WvzmLliPam tlXhAPZfUFHSSY4LQUqcvlWerFSriRipHD91cIwkLA0QOk2KGyHkRF9vpy0AlSCnJh5OPJMhAS3GILCi ZXImHUXwUHL9NAHrNhWbHPqmWTZtIMRuSNB8RWFvTO NjXO4RZcDfCWLmJfWvVXQqHOAaDGDlwn2WZYYcEHRjNOo8EoGuIHTkZGLqZBylVHYcFETzKWX5LACdOH FhQM7NXxUzCODtANH2XoGgREUlSMPfxx5NQNPxQDTfKBQkTpYgUOWdAXAuUNhuYFGvLGQkZLh2VEAnAU QjOO0SQrNqGVCdPRO4IRBtYEHrNSKixq0NHXQeILUa Gdo3FQExUXBaVTXcZKndAMSiDDYmNVAjXRMgIMJzDJ3MCwUtJIBbUGQvTygxLMJrEUSvja1MFRHqMYSh FOEuPIGtGEKdTULiYBydTRQnJAA4AyS7PEQpCLZkIP0TCeSnPGHzHKN8ELXpKJPhBECzmb8MYYDqCCFf EeT3GuWvHJBwKFLpLYxjEKPrDUJ4TBSgSOCzSWCeDO 3SIwSxWTGaGAg6FibiPPMlFTEbqp0NRPFpPSPoCVWzPiIxYWInCNPoEVbiMMDxJMG7YwDhYJDzHYZfLW 5COjHaECJrKFu0WQRpHHCeRMWyxz4TUJVjOEKyRQsxVaAlVCRdIEEaBDcjVBXsKNXhKUP7MMWyMEUxHL 7CBeCuMDNvFgMaPJJaWPPuZHDybc9PYRHtMFKdELXo FkFuSAPnOGPtTTfwEBQcGCTsLGDeMEKqAOLcCK2BWmHeNJMpUsQpVkQfQEZgEXVqqj8LMBTcLKLxBlZ3 TdQwVGQbEBXzHYs9dwRjbUTzHPo7ZY9NK3VzzeIkRyuHWw3Dl606UHE0FPHlOh3YR4tyWy8tUYVmDNLX Qm9JOEi9PgJ0GCAdMnMnJwW9EfUyTVM0KYR1NDK8ML X3CdI5LfU+QTo0XlFuRhLrJPBjClU2BiHuDOi0TlXhIXf0ZeJnOlRsFR4iFKDMSc0+DQpzdGFydHhyZW GGLsPhDIN8VPxpEEKQNr2A ID Date Data Source [id number] 07/15/2020 11:19:00 AM EST [facility] Name Value Range Interpretation Code Description Data Evelin rce(s) Supporting Document(s) Progress Notes [facility] HXJZCt3dHoJWZcEd70/DQIbnPYUmg9LoQXngQVc4ZYfcPOAwE1QgDON8kZ5lCVN5MOtASqUcPcSxOrRd lbm [file] ICAgICAgICAgICAgICAgICAgICAgICAgICAgICAgIC JlXPTdXNZrCIExLCCtTRQoKYJoONQzLOClYVZvUCAsWFWzRTNjBXGuZT8UHGUiGMGkHXFgPOXmXXGeGZ AgICAgICAgICAgICAgICAgICAgICAgICAgICAgICAgICAgICAgICAgICAgICAgICAgICAgICAgICAgIC UgLBYcUZFxDFWvUTObQZZfLHLbPBRmXE7VHTKfCCJd ICAgICAgICAgICAgICAgICAgICAgICAgICAgICAgICAgICAgICAgICAgICAgICAgICAgICAgICAgICAg OJOxIZHbPEBsWNEqLDPmZTQnCLZxXPMaXYBlNIJwGTHyIM9VNTCaSNCiCXMnIPUzDPEwLMPdAUDnPROa ICAgICAgICAgICAgICAgICAgICAgICAgICAgICAgIC UmUHBoENHmWELpYUFwZSZdUUYkJGEkOPNkZOJcACXwDUXeTFVjYLTpCAQrBF5XEIClVFNiDMHhLEUqTT AgICAgICAgICAgICAgICAgICAgICAgICAgICAgICAgICAgICAgICAgICAgICAgICAgICAgICAgICAgIC PmNPZcJWIyWPSwUCPiBWYrBHGiKJTiMDZvDP1XPFRp ICAgICAgICAgICAgICAgICAgICAgICAgICAgICAgICAgICAgICAgICAgICAgICAgICAgICAgICAgICAg OLHkCSOgRJOkFTBfNIFfLMHxZLOfSCAsPJAjLYEwKNWaPDVxDZ7RBMOeJRPrWHMkWAAuPFUjGTUuDPUb ICAgICAgICAgICAgICAgICAgICAgICAgICAgICAgIC MoKGKjLYAoDXMxXSQoMXLsNTExFKKtVBZySUKjSYPwJZAjJLEvOZVzGEAmHBJeWR5XATQhPVDrJSPgQH AgICAgICAgICAgICAgICAgICAgICAgICAgICAgICAgICAgICAgICAgICAgICAgICAgICAgICAgICAgIC PvCYFsTSWhUSErLYEiPREcWBOqTYKfTTWnFQGgGT2N ICAgICAgICAgICAgICAgICAgICAgICAgICAgICAgICAgICAgICAgICAgICAgICAgICAgICAgICAgICAg CHWlRPBpQAOrFJVfGWMxYJCiXOJiHKGsLIQxPUZrYFMfSAFjYGQeVL4DLSKrSOHiCACbEALoMYAdMRMc ICAgICAgICAgICAgICAgICAgICAgICAgICAgICAgIC IxUYUjMLMgBIOwDVXdKCHlPNVbXTDyOZIbMPAwLBMxFGIfXMLyOCMeJXWtRDHpTKQiGG9REN11pGMcu5 P6RMQvNY0jwzn/Mw4NMRgkwtPayEZxYR1ITcOoEO3vky6FNaOvCL6phd5DJEhBIvWoV6W0aUAeYTDzRE JKEwKpT37eIMioRl81WCfoJZPlXsPtJSw2Ih8BWuVu X3ouMKBaAkV4VONwDiO0EABwPjN2GVSbWnMrPIKhSIVlNZ9BAIBiB290ofFeMC6WMr4USfIdHQ3jky1V DUFeAUEtGojWJqf1BHdvMO8NfPYspCG0OCPxECPOMvShG8crn6ZaOGFlZRCDJVukXD4Wu1IvlFQtSAk+ Qw2XWC3qx6OyGVa7JYArBU6eqm0QLImEYpSsC0IwwU mkXDJvl4nyQPQlMY5zsOUpQHM0YL9kiXmqtOBLKU2piWTgd8a4JSubOONINBGqyVBqNeToEbVeJuYtRJ F9YRFmEF4bPRtqIR8VMZL4RFpsZMAxWNZdQ0zLElSmWYpuRJZqhYzmRW7YNqVaK2NoudKtkKQ6LZCcLT INCj4+TAigqwBvSeiPEtHhMWKvz0OjFTv2WZ5KRIFx VBbpUS4ZNEVooS8zIEhvDL4WZdVlMASkDRBWGoBvC43qzPMxDWb9E0ViNsYiMTDiWpgsLQKkLBsoNiKe ZXMgWyBdDQogID4+ID4+GOucBN3CIInsezUaAGXoVn2TLYUiSSQpUH5jGIGzSTDrE7T4bOwkZXRQFtEc D7zwsemmZT8xHQXuD673yDddqqFzMFZaRMFoUx9NUG AaFBO1KLJgqIFtKsctDLEWAUgeLL5DdXFhGSU3lJ9gHYccRMHjNUPkV4fPCxAblPvkKH57qPqfpcQdwJ BdDQo+Or1BFE3ab1HcIQf3bkIiESlsLYQaJNsaHQXfTTGkYVDwODN3AQQ6DSFZSsZnTGUsQPHmYMhdAX MsZIBqft4QEPTpVWAgGxJ8SIRzQRJgBZNnWSsdMVJw BXUkZQp7BFOcGAUyHQ5JIfWlMBOwLLTjUMqxULZmIFLtqy4IUCDaIGApAxT9LVZsMFBnNSZbVZspPYHo VARrLSukSBRdNLCeIZ5WMgUpRGFiPRYgAAKxUIUeQMWkvn8HHTBoRUIxWOI8HIYgUNIrGNLhZIjxHDLh MPC0HsTfSUIzBXXeQM7PRrXwKNWnFOj8FyvmWBVqJO Keec0EQBAvYBKpECK1QFKeVIKfPKAcCLyvZFTmQXW6ETF1DBMyATAbLI4EAaKkZFRvOII5RFLqMDYdFX Oaud4HBBVqGYNwMEtqIYKyATVhPBTfYMfaAATrIXFmENK2JGVnTKZzVJ7MPjPgMQMeQKN5XoYlILNvWO Mgmz7KCIAtNVSgWdE6LzBgRKUlTNYsBDzfSRViROYl BrS1ZFOcIQCiZM3CFkMmDXMyVuR3ZYEsRFXgVOErws4WQIUlFUQeMFqqOZKdJBVvDJQaUYlqKMVyHRW9 PSPqHCTkTMPgUS6TGuVlWKCgUxGaLxHsZNPzKYAivz4XNUIjFYRcDLKqQvJoQGUnOXExFFogVCGzDRY6 GZP0AOHgTXFlWH6HKlTtESZwZwH4JWZkSWQuFXUaqd 5QRXCmEQTzIbolDODqQMRbUHUqDRbeLJKwIWV5TvAwNARgTEVpRJ0WOdSiBROdPyr2VRGyPSEjAHKmfm 9DIGYgNXPzETXtRWXgVQOpBJLwBGlqJWKeYKV2YRGzNPIxCKHiSI0RKtPgOPTvXbqoFOPoHQLkYCEztg 0KMDAwMDAyOTQxOCAwMDAwMCBuDQowMDAwMDMwMzYx YCOeCGArUG9RChBtJKPtEuD2SFjpZZAeRSEetd4YUJJbNCXhGEx5QUWiURRrDGMsJFzcJVHtYMDyWjn1 LDFmGRErOD0TLsIlTUHhWjI5ZkyuXKGvZDKosd7RCELiNHRsByI7GQKgNEAuLLNrZSrvYBZkLIUjNNR7 BVIiIZSmLT6FXfMxMKRzBzP4SSIbQURhKUKici3WHE TtNALkGAL0FnNhUGWoVTBwUZorDGBnVVU7MgFcADHkCSYlIR1VEgJxZVfzKDBCGth9SUsmC0p0JBK1Is 1GT9Nqq8KsQRZdKPCCBLeoZO1lpfUsCUPcDg1YA6gUBfdnHNWxQHH3ARS5ZMKlQ6KaSwGyRlS1Djd0WH Z2MbMsFi6fGMI3KIGuUHJiKnNvKmU1LhNuAEW4OhKu KVdtBei9WjWmNjBnXP0THh4QQpN8ZHI6tLAjJy3MNtB5RjBHYkHlJP7WLSk= ID Date Data Source [id number] 07/15/2020 11:32:00 AM EST [facility] Name Value Range Interpretation Code Description Data Evelin rce(s) Supporting Document(s) Glucose, Fingerstick 246 mg/dl 70-110 Above high normal [facility] The above 1 analytes were performed by [facility] [id number] [place] [address], ,[place] [address] ID Date Data Source [id number] 07/15/2020 07:32:00 AM EST [facility] Name Value Range Interpretation Code Description Data Evelin rce(s) Supporting Document(s) Glucose, Fingerstick 143 mg/dl 70-110 Above high normal [facility] The above 1 analytes were performed by [facility] [id number] [place] [address], ,[place] [address] ID Date Data Source [id number] 07/15/2020 05:35:00 AM [facility] Name Value Range Interpretation Code Description Data Evelin rce(s) Supporting Document(s) AST 24 IU/L 15-37 Normal (applies to non-numeric resul ts) [facility] Sulfasalazine and sulfapyridine have the potential to falsely depressAspartate Aminotransferase results. Baseline values before medication administration are recommended. ALT 18 IU/L 16-61 Normal (applies to non-numeric resul ts) [facility] Sulfasalazine and sulfapyridine have the potential to falsely depressAlanine Aminotransferase results. Baseline values before medication administration are recommended. Alkaline Phosphatase 75 mIU/ml 50-136 Normal (applies to non-num veronique results) [facility] Total Bilirubin 0.90 mg/dl 0.20-1.00 Normal (applies to non-numeric results) [facility] Blood Urea Nitrogen 13 mg/dl 7-18 Normal (applies to non-nume kamilah results) [facility] Creatinine 0.91 mg/dl 0.67-1.17 Normal (applies to non-numeric resul ts) [facility] N-Acetylcysteine (NAC) and Metamizole bradley ve the potential to falselydepress Creatinine results. Baseline values before medication adminstration are recommended. Patients undergoing treatment with phenindione will have falselydepressed results. Patients on phenindione therapy should be tested with an alternativeCREA method.Toxic levels of acetaminophen may lead to falsely depressed results forpatient samples. Glomerular Filtration Rate 85.00 mL/min/1.73m2 [facility] GFR Reference Ranges:Normal Function or Mild Renal [...] of Health and the National KidneyFoundation. The [place] method used in calculating this result is traceable to IDMS standards. Glucose 133 mg/dl 70-110 Above high normal [facility] Sulfasalazine has the potential to false ly depress Glucose results. Sulfapyridine has the potential to falsely elevate Glucose results. Baseline values before medication administration are recommended. Calcium 9.3 mg/dl 8.5-10.1 Normal (applies to non-numeric resul ts) [facility] Total Protein 7.5 g/dl 6.4-8.2 Normal (applies to non-numeric re sults) [facility] Albumin 3.7 g/dl 3.4-5.0 Normal (applies to non-numeric resul ts) [facility] Sodium 139 mEq/L 136-145 Normal (applies to non-numeric resul ts) [facility] Potassium 3.8 mEq/L 3.5-5.1 Normal (applies to non-numeric resul ts) [facility] Chloride 105.0 mEq/L 98.0-107.0 Normal (applies to non-numeric resu lts) [facility] Carbon Dioxide 30.1 mMol/L 21.0-32.0 Normal (applies to non-numeric results) [facility] Anion Gap 7.7 7.0-15.0 Normal (applies to non-numeric resul ts) [facility] The above 16 analytes were performed by [facility] [id number] [place] [id number] [address] ID Date Data Source [id number] 07/15/2020 05:05:00 AM EST [facility] Name Value Range Interpretation Code Description Data Evelin rce(s) Supporting Document(s) WBC 4.87 x1000/ul 4.80-10.00 Normal (applies to non-numeric re sults) [facility] RBC 4.09 x1Mil/ul 4.70-6.10 Below low normal [facility] Hemoglobin 11.9 g/dl 14.0-18.0 Below low normal [facility] Hematocrit 37.4 % 42.0-52.0 Below low normal [facility] MCV 91.4 fL 80.0-94.0 Normal (applies to non-numeric resul ts) [facility] MCH 29.1 pg 27.0-31.0 Normal (applies to non-numeric resul ts) [facility] MCHC 31.8 g/dl 32.2-37.0 Below low normal [facility] RDW 14.4 % 11.5-14.5 Normal (applies to non-numeric resul ts) [facility] Platelet Count 167 x1000/ul 130-400 Normal (applies to non-numeric results) [facility] MPV 9.5 fL 9.4-12.4 Normal (applies to non-numeric resul ts) [facility] Neutrophils 55.9 % 40.0-74.0 Normal (applies to non-numeric resu lts) [facility] Lymphocytes 30.0 % 19.0-48.0 Normal (applies to non-numeric resu lts) [facility] Monocytes 9.4 % 3.4-9.0 Above high normal [facility] Eosinophils 3.5 % 0.0-7.0 Normal (applies to non-numeric resu lts) [facility] Basophils 0.6 % 0.0-2.0 Normal (applies to non-numeric resul ts) [facility] Immature Granulocytes 0.6 % 0.0-0.5 Above high normal [facility] Nucleated RBCs 0.00 % 0.00-0.20 Normal (applies to non-numeric r esults) [facility] Abs. Neutrophils 2.72 x1000/ul 1.92-8.31 Normal (applies to non-numeric results) [facility] Abs. Lymphocyte 1.46 x1000/ul 1.20-3.70 Normal (applies to non-n umeric results) [facility] Abs. Monocytes 0.46 x1000/ul 0.14-0.97 Normal (applies to non-nu meric results) [facility] Abs. Eosinophils 0.17 x1000/ul 0.00-0.76 Normal (applie s to non-numeric results) [facility] Abs. Basophils 0.03 x1000/ul 0.00-0.22 Normal (applies to non-n umeric results) [facility] Abs. Immature Gran. 0.03 x1000/ul 0.00-0.02 Above high normal [facility] Abs. Nucleated RBCs 0.00 x1000/ul 0.00-0.02 Normal (appl ies to non-numeric results) [facility] The above 24 analytes were performed by [facility] [id number] [place] [address],[id number] [address] ID Date Data Source [id number] 07/14/2020 08:42:00 PM EST [facility] Name Value Range Interpretation Code Description Data Evelin rce(s) Supporting Document(s) Glucose, Fingerstick 152 mg/dl 70-110 Above high normal [facility] The above 1 analytes were performed by [facility] [id number] [place] [address],[facility]#: [id number],[place] [address] ID Date Data Source [id number] 07/14/2020 05:03:41 PM EST [facility] Name Value Range Interpretation Code Description Data Evelin rce(s) Supporting Document(s) Progress Notes [facility] BXEEQj0wLnCWGoXq22/GOLbaQZDmj7XvHNgqCKk4CJhyZRUfD6UjITO3wW5cOHU7EMjYXzVlKxNvIzH7 m [file] [employer]+YWw7cew31sXuCZ/y+OZonmejvcJbVfpD7S1ha+7J89vA+mB7jcPky0qcs+c33a/slIaZd9TG/PYc1 [file] 0gDQo+Yd8Fp9UddfE3grEqUNdjUPG2DS8BXUAQP2EQBj== ID Date Data Source [id number] 07/14/2020 04:49:00 PM EST [facility] Name Value Range Interpretation Code Description Data Evelin rce(s) Supporting Document(s) Glucose, Fingerstick 158 mg/dl 70-110 Above high normal [facility] The above 1 analytes were performed by [facility] [id number] [facility]#: [id number],[place] [address] ID Date Data Source [id number] 07/14/2020 04:38:47 PM EST [facility] Name Value Range Interpretation Code Description Data Evelin rce(s) Supporting Document(s) Nursing Note [facility] LCDERs7tXdPBQtVo95/AAWwrJXQwa2IkVLadOJw5LIgqTBLuV7PjXHY4hF8xTXE7QFwSEgRwBbUiWjK9 lbm [file] ID Date Data Source [id number] 07/14/2020 03:48:10 PM EST [facility] Name Value Range Interpretation Code Description Data Evelin rce(s) Supporting Document(s) Progress Notes [facility] PLJYSf0wWtOSGzHg06/KTJaeGJCcg4FeSBelFRc0KXobJHGsU3LcOEZ7jO4zPYE6LOqETjHaSjDmPfV0 lbm [file] AgICAgICAgICAgICAgICAgICAgICAgICAgICAgICAg OKRuXXZiOFWfZD0WBMNyZARlWNFqAWUkMOMhWNBcHVJdVKHwARMjODPaQGWtNWNeMGVmGSFmWFTnLASb LKYoMJAqGWAhGBNpHFAmRAAlELYkJVXsISFcZOIaCCKrQBQnGHEiLCVkTLOkJAYuZMRxKQ7XWNZxPMWv ICAgICAgICAgICAgICAgICAgICAgICAgICAgICAgIC AgICAgICAgICAgICAgICAgICAgICAgICAgICAgICAgICAgICAgICAgICAgICAgICAgICAgICAgICAgIC CtAD4YZRAgQIFnJVUmTEKrPVHhJERmSAKmUUTeCJKdHKSbNXVqASEzITPaILVuDDFlOIXjBJRmXNHfSB AgICAgICAgICAgICAgICAgICAgICAgICAgICAgICAg KXSuAEVpVEFxZPHpTM2UEBDxIQEtLSNrILEwGTQzCXJwIQSiJSTpWCTyRLNrOHSwOWDeZGPlMHGoTCJx HCAeKQDjQWLgUFQaLNZuNKCuIOKlNBNiCGFrFRNrHCKwDCGaVVTrXGWgNRCiPPIkFSNqTOXyLC5SOHJn ICAgICAgICAgICAgICAgICAgICAgICAgICAgICAgIC AgICAgICAgICAgICAgICAgICAgICAgICAgICAgICAgICAgICAgICAgICAgICAgICAgICAgICAgICAgIC AzFYRbBP8DNBFtXSSnYSHwWPFjGAZlJOLiUOGtITXmMHYnRWVpSLRiJYDjVFEjIOWzHALmGFJzQFUcIY AgICAgICAgICAgICAgICAgICAgICAgICAgICAgICAg NTSaFZUrCZXvNVPfOIHyXD6LRPIbKFRoDJRpNYQyFKDjVGGeACVcTPIcRKWnCBTyCZFcXTRnVIFiLWXw CDNfSFWyGGDgSRBdYGDqWNNmNKCbADBlPUQyKIAhIDLvQYXgRFCjTXUnBQUhWHGkMGYvXHKtESWcUC9X ICAgICAgICAgICAgICAgICAgICAgICAgICAgICAgIC AgICAgICAgICAgICAgICAgICAgICAgICAgICAgICAgICAgICAgICAgICAgICAgICAgICAgICAgICAgIC SjHUGhDKAgXQ2YIRDhRJJaHQSaFHWnKEVqIFVhYZTfWCZsVKMkTHKjMZDgBKPxEOBaMKOwWCSjIUKkSU AgICAgICAgICAgICAgICAgICAgICAgICAgICAgICAg IHXtSTRgDDDjHMLeHBOjWZFzTD0HKI57qXXbw5I6FGWbXS4eurr/Pg3LIVradmFthXRlPF6UOvMnCT8q gy1YOyXpTE4wdh1NVTiTYvRpN0G7eOGmZFPfIJWBWoNfK48mAQjvBn31LToeIYQmHcVxGEp6Uh8TJoFk J9fvPKLkXfA4NDKpTeD9QODqHvI4HEIqBhQoKEInGX QuWKGlJJIQFAD5QXAwVmLuXhRpWUStSX1GJVLkZ789lmUqBt0IMw5GUwAmAB8kxg7PSQWrYMWsEssAWo g6KLdjFG1WxPBngGF7WzRkPCQGFqJrS5gvb2OfZNSfNGHNWMdrEZ3Lb9YmhUAhDOl+Iq7HBP1oy0BiKQ j8ZaPiNE3ldd3WNFiBDkLbC3SdmTzmVBTfz0mzFAEm SO7nzNRcOXF4YMaznGAdGYxoS4X9HPqqJ2YvAPIdGl6nQC2tRQBuWSQlGdY8BHCSXQ8LRIIgYFFusMEi BQJdIEUICF2FNTsxOYQ2AgxjknUmwRTbUOkiAR5DJEUfquZoFHJeLHWFRNh+Kq6SGT0fq8BkSDa8JUUu NC0xcy2CCAcPVuJpB6G0oHYeH8U2SZmkWb2BCUXqDT TkJWDtOLHWKKolLJ4IWY7fsfP0CM1GnFLtCFOtVDTojTUjFLo4N48chYYrTRivEK4BSYY+Yadira+Pg0KIC WcBCMqEPEfLtEeKDFULjOyT8ZjO5MKt7FoT7DqXF74yHkjdgPmUKneOT0QRT4uYHDqMYTOVK1ShSKuaW 2ckiI8WqCiIKNIDqHwI17eqOMqUNIeEGChPGFvGb6P MXObK5HfizNedQwzqvOqEEFzNDNYAQ0YXKsfefGdzOCesMdyGU01eOcxFL9CBb0KEvRpSL9use3QoTNr Qk7QLGE6MW5OYEJhIKQtQOZqXAB4SJMaXrZhVZnrKIYvLGPlGFE7MJJcAAKhEG2BKqXiYGDyYUM2UfFe YUXuGJMhji4VIUQnHFS4FaHeLAFxRDGsGXGtQZtyHC OyDZHeCTK9HLFbIVUkNQ5ZCaYfAAHoTYFuTPwzFKUsJZUauo2KWTYrRHZqCkAlGhJbJJOoTGUhLGzkDU ZaXJD5GOUoPOSdRAYnXF5COvEbEZKeNET4VJVxKHGcFUHlop8PMJMtKNHgJBZ6IfOeWALkXKZaCJnkQS TiZHR5NuHuVBBzRWXhVE5TVhAvGCOeKJW0FpeuBMRi ZOArke2TUIVrGINaVyQ1ABQeZILzOBSzVSihRPIcYHB2JCCcAIQbOXJeSH4RYoRrDBNcLTzpBhbjWUTd NXRupm4TZXEiTLYaFCW8ZDElQLAqCVIrWMotZPBaUAWkWYolFWKfAZRjRV8PGeJuPEGuNIO6EoYkWTEc MNCjax7ZVBLfSFPqMlamDFHtRZFqFPXzCRriOIIaKI DnYjp6BPJjDZGrQV7MFrPtARUuGXI5EDpnVDFvNNUfga6IEZYdCZPgLRI0ZnUnCFJoVEGmKUjsBCUtEO L5RMO7DTYkKLWtGP6NPnXjHLYcXYEoFGSwIGNuIFSpoh6QICPcLNEkKKJgAiTlDAZfJNUrQVsxRVJgNP R4Mci5FKLvYZNxSA0GCxNmAVSyZqkqPQCxJDOhMUPi lc8IPUAoHKAiSHOxTOBjOFTqGARrUWogMELpTVL1TIOeZTVfZTPvSD0ZWcMrAOXlOqm3AInxTKDnANUi zi3DQMSvFSEtIDBmTGLbCDOrLBRfWJdeELJqAQK3ZPIaMMZvOTBpHW7WXhFgCSQbYdy4BNcoATQbHQZd xy9RTUQeMUYjOGc5RJDtDDCuQQLhVPodVWLrVCRcTM W7HQNtDXDjQC0VWjTyCMCnYqYqZIjmAZXrLNKuld2CBNEqPWT3FXXbIJJeSHFbBYZqYBvbDEXzHOI8EY E4QRYmQICiFC8ROpSmRTChJGUjCUTlVPEiVNHlqk5ZNBHeLCZ1AAH4HZDeBFIoQYFiFVlkJOMuCOU0RR QzFWXdFNYjEN3SUjRyLSIvMWX2RKFwPDNaGISbek2E RHJjWPK5ReN3VJIjJKMtRJXaDOrvJVHiRCM5VYCzHEUoDPSxDB6GGzBxMBNoWEf9ZDcaTNKrFPScus9A zADafCzytr8TSRnWZz3EdPzpBLF3NRwsPn9juQO1SZPwOVMNIo9AniLnDDZlNUTBQDcqTVVlLQEmUzLs IKG7XGK3RVS6SXZjXDX4TpFgIUZ4WqXbKzI9VcB8VX YdQiZwZUGuIatvQrN8RCY0GiHpPIX3FZbkZGWrOYU+IR1eWJy+Vn7Mp2HfjpL6jtXwKLz1NkvvKB7XVQ TGF4XLIm== ID Date Data Source [id number] 07/14/2020 03:42:37 PM EST [facility] Name Value Range Interpretation Code Description Data Evelin rce(s) Supporting Document(s) Care Plan [facility] SOOVOr8aEcJHZdCy10/FQRrvWBPoq9TvFStnMFg5CErmWYJdP2UmLYW2sL4xUEX7BMlHDzGyUaVtDqW6 lbm [file] NmJmZjg+LC0fOEa+Fj2Vs7SvsiJ0asLzJYuuEwT8TQ8ZOAZDI9EAWx== ID Date Data Source [id number] 07/14/2020 03:10:31 PM EST [facility] Name Value Range Interpretation Code Description Data Evelin rce(s) Supporting Document(s) Discharge Summary [facility] BHYOBj3mGpHSMdPz92/YBTwbCDSyq9PfIDblJCl5UMxsVGLfA0BqCDM1yV4uFPQ9PNuVObAiXyHiXtV3 lbm [file] Rv0EIqb2YHgOXdZfPR4ENNk= ID Date Data Source [id number] 07/14/2020 03:04:58 PM EST [facility] Name Value Range Interpretation Code Description Data Evelin rce(s) Supporting Document(s) Progress Notes [facility] JBPYAq5pKuDSAoDb28/BGTqfCIQwa3EjYSmaSZs5RIfcXUKeQ0OaLNO7lD1jNSW3IQbQXqFrGcWyJcJ0 lbm [file] DQo= ID Date Data Source [id number] 07/14/2020 02:26:59 PM EST [facility] Name Value Range Interpretation Code Description Data Evelin rce(s) Supporting Document(s) Progress Notes [facility] PDLWLd7oFyYOMpXv98/LQFffBYMny1ZmZWgtJFj2VWcvLNLtJ3AtGKJ0bJ7wTNK3PBuFRxHoCaTqPmE2 lbm [file] Lz4Vk+xgl2Ez0ix00lgPpWFHnP4SwX5Pa/PWMA8ByDSWA9vhyPXB/4Wo1Xf1H3MZbTmzsLG3wkej+[place] LCApe3JmHqy4XtWdt9qFavhfG4AthCjfKi1a9WqZNHflhqvlGpsM/QbeaKKU9Wg3M/j+vI+n8Ydm [file] RjIgMjYgMCBSDQogICAgICAvRjMgMjkgMCBSDQogICAgICAvRjQgMzIgMCBSDQogICAgICAvRjUgMzUg VKCGTShzYUHtBUMaNuUaOvgkWWMEOk3TRzDwRLLkLG 4jinPvmSE9IRC+Gy3WAKJdJD6AlNMVW4MohMKwSRniY9OKLP4MWXE2LE1LoVWxXT1MlSMAY5RxqWEuJo 6yOTTuy2ViZw6yS8JSYKXNKXPkWUjpMKujHFQmQWv1E8U1SNUtV6ZRZ310aYHncKd3Hf5bH2PTQFcIEg SoZXafESkoGDXwZTr1X8B0VWKuF6FWF5HdNbCirwRh Y2U+JaOwBNYLKV4BYYSSUHy0P7Z6jTJoV8R5nVzHoRP6MF4MHP2QeQDigOCbd75+NjQMNyJpUJOfT9EE PRWKUpXkHByrDMoxNTTxJXz4P6D9VGKwB9JTX1iuN2v0VA3+BwKQHhQfGIIhMr2QKgSrGv3EVsCoVM0a ta6MCGTvSWZyFiiXKsi9E4dsjtb8nCMvTsB9G8S9Kn W2dHKsLF0RE7P5iHLnQBW4LOYczST+Cf3Fe0TpLRNwVBw1F9uwGFYjGZVgSaGqyR04W++6xlimsBD5N6 h1LTEBiEPhgJzIsuPlT2jDCUD9a5M3XJh/Ae6RIUA0xAj1mMMkVEIgCFf1xN1iqTu2NhLuSK62GOTkRL puzG7aGtt2B7Exq1JtEk6cGe4abOXzZi3HOsSlDAM7 luLlSePOThT5hMkhiyjzRQU7V5x3qHE9Fr02h6pvhcHeo0CfVcI4VDeaQTLlYiOlicEhBWZ7zvYagJ3f grGxKz1IKBQeZLejfmLpSoZEHj5HRaGxOI30CpgjhS3ddEU+DQogICAgICAgICAgICAgICAgICAgICAg ICAgICAgICAgICAgICAgICAgICAgICAgICAgICAgIC AgICAgICAgICAgICAgICAgICAgICAgICAgICAgICAgICAgICAgICAgICAgICAgDQogICAgICAgICAgIC AgICAgICAgICAgICAgICAgICAgICAgICAgICAgICAgICAgICAgICAgICAgICAgICAgICAgICAgICAgIC AgICAgICAgICAgICAgICAgICAgICAgICAgICAgDQog ICAgICAgICAgICAgICAgICAgICAgICAgICAgICAgICAgICAgICAgICAgICAgICAgICAgICAgICAgICAg ICAgICAgICAgICAgICAgICAgICAgICAgICAgICAgICAgICAgICAgDQogICAgICAgICAgICAgICAgICAg ICAgICAgICAgICAgICAgICAgICAgICAgICAgICAgIC AgICAgICAgICAgICAgICAgICAgICAgICAgICAgICAgICAgICAgICAgICAgICAgICAgDQogICAgICAgIC AgICAgICAgICAgICAgICAgICAgICAgICAgICAgICAgICAgICAgICAgICAgICAgICAgICAgICAgICAgIC AgICAgICAgICAgICAgICAgICAgICAgICAgICAgICAg DQogICAgICAgICAgICAgICAgICAgICAgICAgICAgICAgICAgICAgICAgICAgICAgICAgICAgICAgICAg ICAgICAgICAgICAgICAgICAgICAgICAgICAgICAgICAgICAgICAgICAgDQogICAgICAgICAgICAgICAg ICAgICAgICAgICAgICAgICAgICAgICAgICAgICAgIC AgICAgICAgICAgICAgICAgICAgICAgICAgICAgICAgICAgICAgICAgICAgICAgICAgICAgDQogICAgIC AgICAgICAgICAgICAgICAgICAgICAgICAgICAgICAgICAgICAgICAgICAgICAgICAgICAgICAgICAgIC AgICAgICAgICAgICAgICAgICAgICAgICAgICAgICAg ICAgDQogICAgICAgICAgICAgICAgICAgICAgICAgICAgICAgICAgICAgICAgICAgICAgICAgICAgICAg ICAgICAgICAgICAgICAgICAgICAgICAgICAgICAgICAgICAgICAgICAgICAgDQogICAgICAgICAgICAg ICAgICAgICAgICAgICAgICAgICAgICAgICAgICAgIC FkNYScRLKePRRjKDBpMNBiJUBeIDGfWTXwZKAlVEKzZXOtVZGkKSOpIVBrQOPqUDViMHMzIURrNMm1A7 ekSMQvPSGvIW6tUKm0Wc6+UPwROsZeQLY6kzEzlB4ZYF3tn8WbENyvXAJdr5KaKMi8UZ1SRTZyXRrrKB 6HFEyxek0UDTFjHXXfeSAQz9acIrYrZJW7JRJuDmer CO6AAPYiG7fwmbUyPGCbQSFSIBamCJWPFKggZXVTVFAoMPYuJyTuRoJeTCRcNLAjDPNUKBU6DLCwZsNt XZmkOQ9Rs7FefXQ6XZu+Ez8GUT3rj1KdVIt7SRHtWA9gwa8KSRaOZdSlZ0EfxbG9LAUpHJDuKe1AUVCa YODjbJB4GgHbAMAVSmXlM6OqfE06MQQRXq0+DQplbm KyWkjRPuEbQBWop8TlTXr9EG5YNXWrNJf5gGUzZMBcY5Fah0FsDv84EGCrNndaD2J3cfC1FUJkzDVoVD HYMUPjhUYrNnF1ReWdVrEiDHR7SBIxHM1bZZjsVH7YVJV0OVfkLFRjDKSzI8tJBwGiLNpxOJUnjBrkXI 9CFmJuG2WuezSfeWB2VISmRPMQIc8+DQplbmRvYmoN LjPcWGVas7UeCHs3GE9MBLUvSQocCE6JYCAptD1jHMyeNZ9BLzBfHIUnOXLQEpLxP10caWFuTYm0K3Rn YmVkZGVkRmlsZXMgPDwvTmFtZXMgWyBdDQogID4+ID4+RIthPI4PNQxmiaEsPLPdWx8IVRDeMHJzGP4p GSIvIGYmC5E9vNibBDGRYjXvE2eujxgpTB4jCDXzX6 43yFbwisXvDWHhPJXrCu9EUPWrBTO2MIJmxPVhXXQrIUANXWnqXP3WzIYeJXQ4pX0zOPjvWLAmEZSvB9 wQVpUuoFxpDF09mAgckgPcoEPxJBk+Nl0XWW6xd0SaMQa5kyMlFVhhKCN4PEkdRFKkITPzGCCkSCK1DD F7HVCQZcDtENAiXWQsOPpjQZLdBGEsxv8OFVRlDWBb ScOrSJYmEYQzAAYnZRceUVKwWGU7MGE9WIBnTHVmKW9JRiYqBYWgYPFjMOvdARQlLLQwzp9JVEAwJMKe ZnG3SGHaUUYgNWSrDYinLAQbDWBzJlu8EHPtKRBjDW0JPdSqZIOhVEIzJerlPIVcADIydj8IMKVwQGHg WpF2WqHdLZOsDMOjTQkhMZDmQBL9SNC6DYCaRVRxJA 7MMeVyIEBhMEvvUpRnFHQfPCPhwi3EBOJtJIDdUWpqFwRxDKHhWUPdJRkbPBTzSMKjLXUrNUOcKKBsOT 3GEtMzQMIdVKQ6ADZeOFQjIHWsmr6QBWZrTOPoHkV0TFPiRDMnBDBkPLwpNTVbSNW0IpeoDJWnFYBrWS 4CJbCwRSVjXNC4ToivCQItUTDgdc6SFQIaCBEnRrHa OmYuOUTlMOJiUSsaELEuHZF8GrBoDAOgQXRoXO8QRjGxTNLqMJz2PWFfAHZfSUVedd5ACZGkUYLbKRsl ZkNsGHEgHPDhLVqzAEYiQNL9HAqpWZOiWHUgWV8OZeRmJJCwThKsCGTxXFUdLZFppc8JYPHyJMTmUJO4 BWNjBXWdPDPlELofMYSmGXNhCJNqZNLwAFLuTC6IOp EhSGRnDdTnWZoeANZjCZPkuh8EVEKuQFKnMLV5XJXaJPRvLKSxRHlqWFFfODZiTvi0FQOkWFPaEJ2UUi OsYLFcLaP7KjZmDGCsUCPurh3DAAVdIAIvBfe7BZPiJPNjQCNfJFxsAQYbJLNzOPGgMVZnPSQvQJ2SJx FuAOZwQfJdQDKrMTJmHLWcmo0GQZBpNBOcXBB0LrUu YRIyLOUcBZvdBFZlRBK4DTc5GIOmYHMcND0HEwInQPSvIiQ8ZZSdPGKsEZNaku7JFBAjYDQuNNZ8DvPt MMYoZGZpYBiiBESrNKZ0SJNxWJPtWXCzFJ6REuAfXKMfLeW0BSFxFDUkRQEveu6FYYMhGFWcVxSfCYAo ZSViMHYlHVirVXNcDRK9SyEdZCRpQPPjLQ1JStVmUI NiDem2DXTcYDAjKZGnom5EFLCjYFEoISW8UCHsFWKfLULjIYvvJJBzJSR0AdC4RZQwOCVyAC7EEjGoHY JaPdstMMTnOWZrTYIarb0JuMPqbVtzgb6OOAkJHf2UyFrqRKO3JRqrXz8anBA3ZuKyXEDBKk9IqvQiMO MxJVBHESonIVThTSOiKjF9FsKnCLFzMFEhNVGrIidd PQh3SXDvYtCpBZE0WdX1AxHqGxAvSlX4LlJeTkO5DIH2M6JqAbL6C5B2TdSgFuF+CG5mAAy+Iu1Ts4Xt apG8lnYnZXtuXVDtCv6KJIAHB1NIQc== ID Date Data Source [id number] 07/14/2020 12:25:13 PM EST [facility] Name Value Range Interpretation Code Description Data Evelin rce(s) Supporting Document(s) Progress Notes [facility] RQZTEn8uBhBPLtXn24/EAEgsTVVkm8JpWLqpWZj8VHbdRVWbJ8PhAHQ9eI6nVZY8YPlOIzTcOgCzWaB2 lbm [file] AgICAgICAgICAgICAgICAgICAgICAgICAgICAgICAgICAgICAgICAgICAgICAgICAgICAgICAgICAgIC AgICAgICAgICAgICAgICAgICAgICAgDQogICAgICAg ICAgICAgICAgICAgICAgICAgICAgICAgICAgICAgICAgICAgICAgICAgICAgICAgICAgICAgICAgICAg ICAgICAgICAgICAgICAgICAgICAgICAgICAgICAgICAgDQogICAgICAgICAgICAgICAgICAgICAgICAg ICAgICAgICAgICAgICAgICAgICAgICAgICAgICAgIC AgICAgICAgICAgICAgICAgICAgICAgICAgICAgICAgICAgICAgICAgICAgDQogICAgICAgICAgICAgIC AgICAgICAgICAgICAgICAgICAgICAgICAgICAgICAgICAgICAgICAgICAgICAgICAgICAgICAgICAgIC AgICAgICAgICAgICAgICAgICAgICAgICAgDQogICAg ICAgICAgICAgICAgICAgICAgICAgICAgICAgICAgICAgICAgICAgICAgICAgICAgICAgICAgICAgICAg ICAgICAgICAgICAgICAgICAgICAgICAgICAgICAgICAgICAgDQogICAgICAgICAgICAgICAgICAgICAg ICAgICAgICAgICAgICAgICAgICAgICAgICAgICAgIC AgICAgICAgICAgICAgICAgICAgICAgICAgICAgICAgICAgICAgICAgICAgICAgDQogICAgICAgICAgIC AgICAgICAgICAgICAgICAgICAgICAgICAgICAgICAgICAgICAgICAgICAgICAgICAgICAgICAgICAgIC AgICAgICAgICAgICAgICAgICAgICAgICAgICAgDQog ICAgICAgICAgICAgICAgICAgICAgICAgICAgICAgICAgICAgICAgICAgICAgICAgICAgICAgICAgICAg ICAgICAgICAgICAgICAgICAgICAgICAgICAgICAgICAgICAgICAgDQogICAgICAgICAgICAgICAgICAg ICAgICAgICAgICAgICAgICAgICAgICAgICAgICAgIC AgICAgICAgICAgICAgICAgICAgICAgICAgICAgICAgICAgICAgICAgICAgICAgICAgDQogICAgICAgIC AgICAgICAgICAgICAgICAgICAgICAgICAgICAgICAgICAgICAgICAgICAgICAgICAgICAgICAgICAgIC AgICAgICAgICAgICAgICAgICAgICAgICAgICAgICAg LLw0W0joQWGuPERyLW5qQJe1St1+PFmOLnYjOWJ2rcGveG2ZDE8mz4NfOTnyCWAiz9PxWSt2BG2KRPUi INxvIL0VVEyeoz2BAYCqSJHoeGYLo8djEcNlQAS6WVSaHycuRW8DPUCeD8gdkeCqVKScXGJLDT6PFxAo P3TppC26VYXBVh5+QEobyxFaDzsWGjW5QXZdt5ZfSV z2YE2MYNFsDsioi1DrRpZiFAJWVPssYC2RPFY1NXN3BLSbYi2DQYEeS882qpJkCU5BUn4GRxIbFW6szy 2JGjFpGDBjVwkZTex0IBbiFE5VbZNbDFtVuv0oxyUnqoIGe7ExslRcyGVGkBXlkDBzZ8H9cMvkNHWiWX KoQg3jFM6uOPWqECMiLzG1XFVCAI7VOQJpMPKyoLPa KUYdZLNHPB1WIHgxASZ6ZacmguVgqHPkATtsTO8XYEPgisIxDmMjEYCVKVq+Ry9AWK4qb0VmYEmvYnWs HR6srx7DYGnXFpJuE7N7tZHoV6O8POrwKo1XJGXmHHEjYoTvRJAGVIuyLU0CIN3hebM0TY2CkVIwNHUd LSVeaIHoFEz5P19qgYEvFFcoFE1MJIP+Yadira+Pg0KIC UqBUBiIYIkCaIxZCSQYlBzF4OiS6URi0VuG9YaAS16zAwuouEjJVyhHL2HZI2hMEOwNHJDVJ4VfQZvlL 0tqsEjDOBtEVNWXnFwP80ylREpXTVwAZF0GXGnCc0LJBCgX4KozbAsuKmgevIaJNQxZHBKAR8OFVpabu XfpVOuwMbbWP71rDsoRS3COx4UCnOjPK5eof1DiWCh Zy2GVMHpMY8IJHEtCQNvLWQvTYM5WICzTfJpSBqoLWYnZRXsEPW9AGYjXHLbWE0GNiIiEXTcCnO5USMc KJBvCKEsnp7VCRQlOQIyLkB0FtFyELJvRHIgNPbcVCZiENIfRAG8IGYaOYVlWT1VAqZaURZtRTA5TuAv EQKtMADead2MNVMaOLPwCRugPmSgDQGtEOCkTZbiAI AjILQdLdo9BIDkVQYbUY3WNbHeLLOwFQL2LGUiNNXxAIDklm8JNQZbWSFiQoX5ZTRaTOAnEHRwWHrjBI JmGSB2XQSvOFGjUHEsZX8YKfBfDJTnTWAkQdrxITUyJBMuew1NJMKgIGLuILSoUGFbORJlKKIyLKodGK PpTSF7BFC3WQVcZCLmIJ9QFqIcLBXbDHymUEBzLZJg HIDexp1ZQNHsCTQwQwW8WqBtICQoHMPeTDfvDKJaLRL6KkBzRPZgVATjHL5OTfChKLGiRSg8AokvRNAv UYVevv8TDPKlCRAkREcqPhJfZNVqYQUuFLsxHSZrECF3MXZgJXGqGZHmPY4DOeAjSFJiYJfxIKLoGEJc OLZpbq9AOJFeWSBqHTBkLdPiJHXdWFXiCGstEMQxOE VnEvR3VVKeLBXcIC8ONcNxSXEtGgXnGZRkHKGxIDVdjr5JHGPvXOOzWGeiKpBdBDLfCQXcERnuRGYuMV BnYjSaYAPhPNNjAR0LAvInVIXhGsZeAhSqESXfSVUfbu0MWAEyUTOcLfK5NRPcVFOzAGHaIHp2qvYcgJ DfVBq8RN1RF0NtrhOqObsKMm5Ol546LIE8QIGqEs6P K0mfBs3mJBXqOTXAJj6ZHJe9PHReTRq2QMt6LQR8BavzQGUiHJKwQAY4LsDkZRdmSLR+IDxlYmZkOTk5 NpmtZDt5G3I1EDViGkQiMHXpQMMuZQWxOK1rTLCFTr2+COfenBVxxKmhJALUHnZuSjVbPZqrRYARRe8V ID Date Data Source [id number] 07/14/2020 12:00:16 PM EST [facility] Name Value Range Interpretation Code Description Data Evelin rce(s) Supporting Document(s) Progress Notes [facility] EEMBWo5xMoPFYpXn79/CNAalEEJnp3QqSZicIZp1XKlcWDXjN6QdFEN3zL4cVCR1HVvGKeDmJhSkTxE9 lbm [file] MrI7WdYCFxKcniHXS1SNRjLqZcCEOdUlChTD7NEs0JAvX1JGL2xSYnRm9GOlXqPmTUElVoIU4JWQz= ID Date Data Source [id number] 07/14/2020 11:52:00 AM EST [facility] Name Value Range Interpretation Code Description Data Evelin rce(s) Supporting Document(s) Glucose, Fingerstick 140 mg/dl 70-110 Above high normal [facility] The above 1 analytes were performed by [facility] [address]#: [id number],[place] [address] ID Date Data Source [id number] 07/14/2020 09:45:13 AM EST [facility] Name Value Range Interpretation Code Description Data Evelin rce(s) Supporting Document(s) Progress Notes [facility] YHXEGh2rCnXJPqWy83/AJPrpZLBul7WhOAkgWWu0JCurQNYkN3YiODU3lX6jOGG1OFfNFbBwTzVfRbD0 lbm [file] ICAgICAgICAgICAgICAgICAgICAgICAgICAgICAgICAgICAgICAgICAgICAgICAgICAgICAgICAgICAg ICAgICAgICAgICAgICAgICAgICAgICAgICAgICAgICAgICANCiAgICAgICAgICAgICAgICAgICAgICAg ICAgICAgICAgICAgICAgICAgICAgICAgICAgICAgIC AgICAgICAgICAgICAgICAgICAgICAgICAgICAgICAgICAgICAgICAgICAgICANCiAgICAgICAgICAgIC AgICAgICAgICAgICAgICAgICAgICAgICAgICAgICAgICAgICAgICAgICAgICAgICAgICAgICAgICAgIC AgICAgICAgICAgICAgICAgICAgICAgICAgICANCiAg ICAgICAgICAgICAgICAgICAgICAgICAgICAgICAgICAgICAgICAgICAgICAgICAgICAgICAgICAgICAg ICAgICAgICAgICAgICAgICAgICAgICAgICAgICAgICAgICAgICANCiAgICAgICAgICAgICAgICAgICAg ICAgICAgICAgICAgICAgICAgICAgICAgICAgICAgIC AgICAgICAgICAgICAgICAgICAgICAgICAgICAgICAgICAgICAgICAgICAgICAgICANCiAgICAgICAgIC AgICAgICAgICAgICAgICAgICAgICAgICAgICAgICAgICAgICAgICAgICAgICAgICAgICAgICAgICAgIC AgICAgICAgICAgICAgICAgICAgICAgICAgICAgICAN CiAgICAgICAgICAgICAgICAgICAgICAgICAgICAgICAgICAgICAgICAgICAgICAgICAgICAgICAgICAg ICAgICAgICAgICAgICAgICAgICAgICAgICAgICAgICAgICAgICAgICANCiAgICAgICAgICAgICAgICAg ICAgICAgICAgICAgICAgICAgICAgICAgICAgICAgIC AgICAgICAgICAgICAgICAgICAgICAgICAgICAgICAgICAgICAgICAgICAgICAgICAgICANCiAgICAgIC AgICAgICAgICAgICAgICAgICAgICAgICAgICAgICAgICAgICAgICAgICAgICAgICAgICAgICAgICAgIC AgICAgICAgICAgICAgICAgICAgICAgICAgICAgICAg ICANCiAgICAgICAgICAgICAgICAgICAgICAgICAgICAgICAgICAgICAgICAgICAgICAgICAgICAgICAg ICAgICAgICAgICAgICAgICAgICAgICAgICAgICAgICAgICAgICAgICAgICANCjw/gLBmI9veqMHwsmO1 I1uhJo9XIl1GEB8po9TjGCPeRRpmqyYcWuuKFzJuHM WcDhuCZxa9HQfsDH8VaJQkL9GyX6GrNQviYT0GIYWiFMPioLJjQDIqNZQlAdU2AUGhDMknML5YmPEyYC sxSUDrIPXkWaEyAMFyZARaLSWuXG1VABAmQ776mvLuEu4FVe6KFbWyTD2mxc4WYkKeJBZeScwBRkf5MS jdOF5NeBQyoIQgYDYnWSWYJxTmH1gth2GrCsAhZKMI CPndRY4Nf6SukNAbFBk+Cj2AYL4rt7ItQMgzDEYgAY5ama0GJKoBTjSiX6UhuMawUWTzj7bcTMHkLE7o wUDdTNU6NQNwfoU6RX7xCJ7rbFMoi2t4BYxmTRSEWIEolFXtJiV8DaIzVxCwXWw5ArgaEC2vQIuhTV8Q OZQ7DFvzVXMkKXVoW4qMVvPlRJfzPUXulZanPZ4KLt GzA3NujdKfwFEfOVCmTGODGf8+ENmgsjTjZnjECgArYIGee0HdPPj6GL7GCRPtCAzyNM1JTICbfU3wDU ywIU1OWiOvDDRmXXLMAsWvT95whDXjIFi8K9ZyXqOuYBVrPsjgWFVoGPemTxCdTMQiTzVyQTyrZV9+ID 4+ATqcEC5EPXkjtlTwZVVaAa7QFNGrXITiNI6gPRKj NPLuI7Z2nWpxWIKWVyCkU4emtiyhAL4wLNCtA309jBwhbiNeCPTjXHAlLw8ERSDbYGB0GVOgsNLxDwxj MVYHXZymQA7MfZDdLOU8xY9dDTnyZAFhGXTwK6lJGvWshIzjYY46uGfsbuLqlPNjGLj+Kq9JIP0sr1Wl NHt9dbXfAXqyMCNyIGqyOBPwYGYlKCUlVRO7CZZ6JF ZNTqRsFBVmHURiYIypMIWlSSBvuh8VUNDvSDGsFvQ5KRSuKUHmFHHnVFhuLSKaXFM6GcG6AFPvOZXqNS 1WQqEvAUFkPQPzQXvfWBCnQHCdhd1OGKZpPKXnSgldUNNxAVLhCSQaSJnsZDNhNNUyVTP0HKEfIDCuSC 2FLwCzJZBoDIUoOdApXKKnAEJacj6SPEQeCJGcRfNh WZEtTAZjNXWySDkrFXVcNKS1BLf4OPFdEOEoFT9RXhVsNEQoZXnvPECzYWBfTXWbfx6NQAJsTVJvEVY8 LrIzPNXyGPAwXEuhBCEtVHYzCJV5BAJfRQZkQN3BDyFcRASeUWM4WZJtHDCzXRQcad0ZVLGaJAUnNXHv AyAqVBMpNGNuJLmiRGGoVKTaCDE5EXAgUFAiOI5JIc PhMQFvSCM1UOIyXTZzMPQtcq2EEIEuKKRnWzd1UEQgOYZfQLPlATefZUNsUMDzZHL4UXMhESGtVR5ZFq RsVMZpXOVrMQpfUKDvBLVeoj3BKTRqTWPbGDQxAtIhCIKgWYWaKPciZHEfEBP3QPA2FICaYSVwDD8PNg VtYBHpJPE9DUJqECNjMGElcg8WZZSyZWPiCEL9UNRo XKNhFOFoLMfjFBTqJKB7YPQ8METaUKYpWG2YIaYyXPMxTHJkNlIaYLUzFUEgif9UJODbQZOaFaPmITTd RRMuFARcPVnfZZWiBNX7WpR9JENhMADaZE9YPyOdIMTrQQw4SbWbALWgHXAzsh6LANZpBOQcArw6OwWk ORNyTIUvFUafUSQeRUS8GtA4YNJvVWFuLM9PAwIiSZ EpTXg6DWfdFJIwEGIagq4QBDBcLZTmHXP5YfBhLXEyVQFoMEz6wbCnnVZkRKf6UR1JY5HlfhEfWmKZNc 1Lq749IMKlRBQfXg0YH8hrRt0zWNFxGLOHMv8HZPc5DLJ2NVN2WiQjQLUiOREeXTOePQM0MLUdX1N8Fb M5ZDA+OIl1JMV6XNFcL1PdDtOvZWH2PRR4UQBfXIYn SysrHoalUC7xFFEEFi6+JLxhbSIrzQsrAHIPWbE3VWC1BXfhBBDPRx6S ID Date Data Source [id number] 07/14/2020 07:54:59 AM EST [facility] Name Value Range Interpretation Code Description Data Evelin rce(s) Supporting Document(s) Progress Notes [facility] EDSACg5xTfJJFtHr73/MOAnhLMLsp4VpNHrbDBl4LQdgUCFgR9KxFIA2kT2zNDT7YJdSAhDeQaWmClS5 lbm [file] niM8qlOuQMuhDwueKs2WBIXXT5VHJm== ID Date Data Source [id number] 07/14/2020 07:45:00 AM [facility] Name Value Range Interpretation Code Description Data Evelin rce(s) Supporting Document(s) Glucose, Fingerstick 144 mg/dl 70-110 Above high normal [facility] The above 1 analytes were performed by [facility] [address],[facility]#: [id number],[place] [address] ID Date Data Source [id number] 07/14/2020 06:55:00 AM [facility] Name Value Range Interpretation Code Description Data Evelin rce(s) Supporting Document(s) Blood Urea Nitrogen 13 mg/dl 7-18 Normal (applies to non-nume kamilah results) [facility] Creatinine 0.80 mg/dl 0.67-1.17 Normal (applies to non-numeric resul ts) [facility] N-Acetylcysteine (NAC) and Metamizole bradley ve the potential to falselydepress Creatinine results. Baseline values before medication adminstration are recommended. Patients undergoing treatment with phenindione will have falselydepressed results. Patients on phenindione therapy should be tested with an alternativeCREA method.Toxic levels of acetaminophen may lead to falsely depressed results forpatient samples. Glomerular Filtration Rate >90.00 mL/min/1.73m2 [facility] GFR Reference Ranges:Normal Function or Mild Renal [...] of Health and the National KidneyFoundation. The [place] method used in calculating this result is traceable to IDMS standards. Glucose 169 mg/dl 70-110 Above high normal [facility] Sulfasalazine has the potential to false ly depress Glucose results. Sulfapyridine has the potential to falsely elevate Glucose results. Baseline values before medication administration are recommended. Calcium 9.2 mg/dl 8.5-10.1 Normal (applies to non-numeric resul ts) [facility] Sodium 137 mEq/L 136-145 Normal (applies to non-numeric resul ts) [facility] Potassium 4.0 mEq/L 3.5-5.1 Normal (applies to non-numeric resul ts) [facility] Chloride 105.0 mEq/L 98.0-107.0 Normal (applies to non-numeric resu lts) [facility] Carbon Dioxide 26.2 mMol/L 21.0-32.0 Normal (applies to non-numeric results) [facility] Anion Gap 9.8 7.0-15.0 Normal (applies to non-numeric resul ts) [facility] The above 10 analytes were performed by [facility] [id number] [place] [address], ,[place] [address] ID Date Data Source [id number] 07/14/2020 06:25:00 AM EST [facility] Name Value Range Interpretation Code Description Data Evelin rce(s) Supporting Document(s) WBC 5.20 x1000/ul 4.80-10.00 Normal (applies to non-numeric re sults) [facility] RBC 4.26 x1Mil/ul 4.70-6.10 Below low normal [facility] Hemoglobin 12.5 g/dl 14.0-18.0 Below low normal [facility] Hematocrit 38.0 % 42.0-52.0 Below low normal [facility] MCV 89.2 fL 80.0-94.0 Normal (applies to non-numeric resul ts) [facility] MCH 29.3 pg 27.0-31.0 Normal (applies to non-numeric resul ts) [facility] MCHC 32.9 g/dl 32.2-37.0 Normal (applies to non-numeric resul ts) [facility] RDW 14.6 % 11.5-14.5 Above high normal [facility] Platelet Count 169 x1000/ul 130-400 Normal (applies to non-numeric results) [facility] MPV 10.4 fL 9.4-12.4 Normal (applies to non-numeric resul ts) [facility] Neutrophils 58.0 % 40.0-74.0 Normal (applies to non-numeric resu lts) [facility] Lymphocytes 30.0 % 19.0-48.0 Normal (applies to non-numeric resu lts) [facility] Monocytes 8.3 % 3.4-9.0 Normal (applies to non-numeric resul ts) [facility] Eosinophils 2.7 % 0.0-7.0 Normal (applies to non-numeric resu lts) [facility] Basophils 0.6 % 0.0-2.0 Normal (applies to non-numeric resul ts) [facility] Immature Granulocytes 0.4 % 0.0-0.5 Normal (applies to non-nu meric results) [facility] Nucleated RBCs 0.00 % 0.00-0.20 Normal (applies to non-numeric r esults) [facility] Abs. Neutrophils 3.02 x1000/ul 1.92-8.31 Normal (applies to non-numeric results) [facility] Abs. Lymphocyte 1.56 x1000/ul 1.20-3.70 Normal (applies to non-n umeric results) [facility] Abs. Monocytes 0.43 x1000/ul 0.14-0.97 Normal (applies to non-nu meric results) [facility] Abs. Eosinophils 0.14 x1000/ul 0.00-0.76 Normal (applie s to non-numeric results) [facility] Abs. Basophils 0.03 x1000/ul 0.00-0.22 Normal (applies to non-n umeric results) [facility] Abs. Immature Gran. 0.02 x1000/ul 0.00-0.02 Normal (appl ies to non-numeric results) [facility] Abs. Nucleated RBCs 0.00 x1000/ul 0.00-0.02 Normal (appl ies to non-numeric results) [facility] The above 24 analytes were performed by [facility] [id number] [place] [address],[facility]#: [id number],[place] [address] ID Date Data Source [id number] 07/13/2020 09:04:00 PM EST [facility] Name Value Range Interpretation Code Description Data Evelin rce(s) Supporting Document(s) Glucose, Fingerstick 98 mg/dl 70-110 Normal (applies to non-num veronique results) [facility] The above 1 analytes were performed by [facility] [address] [place] [address]#: [id number],[place] [address] ID Date Data Source [id number] 07/13/2020 05:57:16 PM EST [facility] Name Value Range Interpretation Code Description Data Evelin rce(s) Supporting Document(s) Consults [facility] ZQXKOu4nTtPACpKk83/XARhpDOSyd8VtWZlsCJf8SDheSIYfK3OgNQW2mT8wVCL8KKiCLkInHzEoIkN9 lbm [file] AgICAgICAgICAgICAgICAgICAgICAgICAgICAgICAg ICAgICAgICAgICAgICAgICAgICAgDQogICAgICAgICAgICAgICAgICAgICAgICAgICAgICAgICAgICAg ICAgICAgICAgICAgICAgICAgICAgICAgICAgICAgICAgICAgICAgICAgICAgICAgICAgICAgICAgICAg ICAgDQogICAgICAgICAgICAgICAgICAgICAgICAgIC AgICAgICAgICAgICAgICAgICAgICAgICAgICAgICAgICAgICAgICAgICAgICAgICAgICAgICAgICAgIC AgICAgICAgICAgICAgDQogICAgICAgICAgICAgICAgICAgICAgICAgICAgICAgICAgICAgICAgICAgIC AgICAgICAgICAgICAgICAgICAgICAgICAgICAgICAg ICAgICAgICAgICAgICAgICAgICAgICAgDQogICAgICAgICAgICAgICAgICAgICAgICAgICAgICAgICAg ICAgICAgICAgICAgICAgICAgICAgICAgICAgICAgICAgICAgICAgICAgICAgICAgICAgICAgICAgICAg ICAgICAgDQogICAgICAgICAgICAgICAgICAgICAgIC AgICAgICAgICAgICAgICAgICAgICAgICAgICAgICAgICAgICAgICAgICAgICAgICAgICAgICAgICAgIC AgICAgICAgICAgICAgICAgDQogICAgICAgICAgICAgICAgICAgICAgICAgICAgICAgICAgICAgICAgIC AgICAgICAgICAgICAgICAgICAgICAgICAgICAgICAg ICAgICAgICAgICAgICAgICAgICAgICAgICAgDQogICAgICAgICAgICAgICAgICAgICAgICAgICAgICAg ICAgICAgICAgICAgICAgICAgICAgICAgICAgICAgICAgICAgICAgICAgICAgICAgICAgICAgICAgICAg ICAgICAgICAgDQogICAgICAgICAgICAgICAgICAgIC AgICAgICAgICAgICAgICAgICAgICAgICAgICAgICAgICAgICAgICAgICAgICAgICAgICAgICAgICAgIC AgICAgICAgICAgICAgICAgICAgDQogICAgICAgICAgICAgICAgICAgICAgICAgICAgICAgICAgICAgIC AgICAgICAgICAgICAgICAgICAgICAgICAgICAgICAg QMTrEEYtNVZyNKGyQZXvSLHyHNZzXORhQSPkFCDtSJm8W5esPVBzZLAjOE5fKCq0Be0+DQoNCmVuZHN0 eqJpeA9VIO6sf4TvUVfsRQQtl2OjAJb7NY8IVNLkQKvrFN3FORmajy5DDKEmOTJfoLDHk9exOzXpDIK9 RPFrLtfyJY7QSMEsV6jlexDbWCAtQYUXMWzmVHGMHQ jzNFWTUIPsZJEkJwXxQmVuSUJbRTItPIYPRNR3MOKoEzTaTYJnHTYwUlVsTNUYJYAjPSUlIjOiVLhvQP 5Tb8FulXSeOE5LOg4GSpVwIS5zwy2AMVtcUMZaUhzIEgg9PVvwXA6ScKBsmZU9VEUhQHELRpSlT9fcv1 UhDBSaHZALSDloKD3Pv8VasNTzMQz+Ec1QYD9hp8Ga RMw3RPBaXT7nqy9KDYvVAzVjG6TduLtvMRIdjuX6mUSdSCG9EMgxsgFKh1xzpA2oihndBJMbYNLxNh8q EO6eSXLbZKI3BtPgNRFHWH0LPXBpMHIecGIiCIFvSIFZCL4VRYxcTAT2DmzsleCtlBTaDNgbQG5LWPBe bnQgNDkgMCBSDQo+Gx0YHB2sw5AcKTg7ICDiDY1kqv 3DJNdEGyKqO7B2mVLbF6I8CTtfOo1WFLUiQQHySMdkZQLXSKpwGQ7HBE0altG3DO1JzFEmHGIyKTIpzJ QqRVk5C73gaXNpPAjyBQ3CLGJ+Yadira+Mk2VDCGmREBwBDSrHkQyXGRNXbLmJ0LoC0BCb1YlJ7VbYF39kW ppnaNyPBlwIA4GCL9mRIGbQLVBLA2XqBFueZ8fgiK2 VXDkYMFZBoApW45acBVcODDuRCC1OWVrYl5YWLGpS8IdltBfmNapzdTsHPOeXYQBYV0EUQpfulQklQIc yKwvAT10aAvrOH9LEd0LJcDlNG5xfc5OdEKoKj9UVKR5Ll2RVKThYLHnTVNcPIX9RNTnRjFlIStxDVAd OJAtOZE6FFZsOBSgWG9CZrNkGJDvPoLkDYTrUDUjYC Eoqj2YDJXwUOM1YWr0DvJiZLYsWJMzKHuuYWHmCHQsXUL3VLZlRGWhVK3WEoSaTGNdWKF7YZAqDCNlNL Qute7PUMZwMZIzDol4ACVqTHMrHWHfRKuaFJHdUSH8FFG4IRGpWEBbTJ2NQkHqFDEhOWN1OiRnFRZaJE Cptt5GVGWbXEIcBic9WzFvHELwJCDqWYxaSYAlWMX2 EtPxMMLsKTEcWT9EKqSzHAFoEFx3LpxjIAEoMPKkxo2ODDHdYZEkTSNrHLRvGXVzMPDlMYsnFCUsLIH4 KGU5SIHiYFPlXG8YGtYmMIYfGSZjGvBgMNMqQVFoyg9FLWLkCZLlDwV3LDKkTTFiWYJpZQysJTRuRMF2 IsjwDHYrNNWzRE3OTuHiHLDmIPx3IwmvFBBsUKDqov 1MDRZeVFViBGD3DEXiRWWtHHBdWKbgZVJhULWrKwvbMYXuXDQwJZ6EKeShTXEbQzE6VBayBYHjPEQfdn 5KYCHxSPAiIZHsLwVuGWYsHRIkLMyvIOGaLTQ5MhM4TCHhEBRyMX0RAsSvGQHcWaHcYSUzSKLzLIPhek 8PTSQuPSBcEzOsISEkPRVfWVNhQKxqZFQdCAC4QRk4 WQQzMBXeAH3LBeVgNOJnKwu4CbnxCRIeTAYtyb7JXKSiUNRzKjl9PaJnSFKhPXVkDBswTPRsWSN5DAY3 MUNjVMJpJT7MTaRcYBKxKetlLvOiIOFqFTGwev0EUEGxVYZdTWGzEdFjYFYwCLEbYYcpHAHsJEReYVA5 EJHuGQVmEA9TKtOySHUgRcViMrUcGEHpDBTfri9NLB FePYNyXXP9PqYwPANwIPZzNLxpSQZnUTMrYXKrRJOiOSMyNU7LWwGjIROxJaZ8PaPsVABnLYNasi7XNQ SiDMFmCAidDqGpXIIxFRKoXDxpFKElYEGgVMI9MDIhAHArMT7QXpBsKJEvPeHzPlEpGZNjXIQukh8PWZ YyBCIfQyH4NUYnRPExVENcYNogZUSlLRQ3CQY2DZNa YBUsDO5FCcQpSOJaLHm2KYIcVVDqMFStuz7AWSWqPSI5JbafXLDqGJAwTLLyKIiyEGZmHRA3PaW1FGEa STZmQD9JZcAtQNVjVLb4EvbeOXLfPWOvhw2YWZSzWPW2LXgrPAAoGOXfQHKiLRyqDCUeYIE9CMSqPFTn PJNcYL0LWnAhWTNtUdRxOMRpOXRyGTXslz5CIJBvRT V2YAL5JwIsXPTaJTNoQTptHEZpXVNdJVS2VBEqTSHjBY8ZUnKfIYXcSwMkLEyaKWXgKFQpde6AQRWwAX G9UwL2NUPgTOXaFNUhSDc0fkBfaLCoASs2TJ1SV1OvdwWxUOCQOn0Eu116MNRlTEIdKf9OO5diRn7eHR QaGLNUSn6AEFg0ZUUgDzT0SLLnWMY3YEO8VvUjAXNb NkY4Y5QoQ8MpOEI+YLo2JJR4MSExHmUwCAE4IRIzMYGnXXH2WGDxLaY8UfI1NU2dGNRMBe3+DQpzdGFy cHwtQJUUXbCaPHFzELbmVVIDSz8S ID Date Data Source [id number] 07/13/2020 05:52:50 PM EST [facility] Name Value Range Interpretation Code Description Data Evelin rce(s) Supporting Document(s) Nursing Note [facility] RGNWWg5zIgBVQfQo86/WFDzbXHLzk8JdPMclFXe5FVuwSQYtV3MwISM0yJ0mVZJ3VSgCDiJcYmTpUmL9 lbm [file] OmO9RTG3zGDpNx9UIwM2CqKASbJdIE1ODCz= ID Date Data Source [id number] 07/13/2020 04:31:52 PM EST [facility] Name Value Range Interpretation Code Description Data Evelin rce(s) Supporting Document(s) Progress Notes [facility] ZTBJBh3vKwILApXm77/MSQylYJKkq3BoABbcKPv8UHnqFIZfT1ApVWA3mT6vFGK7ABwFFzFjBdPaAvE8 lbm YhLqhISlMcQVDsQusTAaKaGVjgJxfidMGdXF2PoLC2BPIrF00vUWFbSQEvB6AsUMZ5ZAe+Hy4NHYFroS AdGR9XCglG1Wtfoqe9Pm1wxS+KHDA3AqA8yU55msOHr1umxeX6kjApYT+elJ2vk8Dq72ia8o/qT+zukr Y1f07ssWH6dwTSK6dP6ucy6zrd9i4F3d+k6fcKgODz +X//W2e8EDgFE/8gHqYF+r3cu471tVjcZJcG10N1E8NkEoMONZrZ5N/0LDVsPW8kAysZm6StBm4CcJVx xFuf+FOlN/i9Khmf3VLODQ+WvgjBdTiVj5PzfWF/NxMMTIvpW8d01F50+YObDWci5zT4DRYWJUIC6EhV QawYnNLEFBhQKdgFLhkpT60isHCouKkrbAurQ7dpcz FN5goHTS8hzwaQOnxDuFfSIFjCDAnTzMWsDwAKwsfvIGCG+9ZU3Zsij6rZdeWRp6RnRlUytnnHGQ7P1P xCNCDArVZRPhr4bRUBpMvA9mQzIT8r7Lx+s5t/qo1/GkJFfGG51v7rTf+Uc0rSBeJ/fpJgLgmFUTDW1A mxtrbCyG780JsEj6MFKwR/zWqnEdeN0hWEia3JB57f dnFhnKYPxK+pxljUmBNL+HEoA92215X8VzMy4GQugc59qwYbmlOW1/h+Nf/4q5S3+m//care home/HU5+qVYx [file] ICAgICAgICAgICAgICAgICAgICAgICAgICAgICAgIC DqUVNbQLJmULRlRATfRWWhVCXyALRtBXZyYKIjPAUgRVCpHMTiTVGaIFPqCCUiXLIrSVNxWOAgJK1TZS AgICAgICAgICAgICAgICAgICAgICAgICAgICAgICAgICAgICAgICAgICAgICAgICAgICAgICAgICAgIC AgICAgICAgICAgICAgICAgICAgICAgICAgICAgICAg DAYjBVQlGO5NXLVwOJJrIKDbSRRzQVQaPZYmOTNvQROwFTDvBPOzXWRjVUMpCWHxNOKiDBNgXWDoIMHv BYXsTRHmAIQcIQUiDCFkENYjUNNmRZHpUYVkWSFcKPDdAVWqVZCwNUAkXCXuFQJcLD2RRPJzQFNsYJEg ICAgICAgICAgICAgICAgICAgICAgICAgICAgICAgIC AgICAgICAgICAgICAgICAgICAgICAgICAgICAgICAgICAgICAgICAgICAgICAgICAgICAgICAgICAgIA 0KICAgICAgICAgICAgICAgICAgICAgICAgICAgICAgICAgICAgICAgICAgICAgICAgICAgICAgICAgIC AgICAgICAgICAgICAgICAgICAgICAgICAgICAgICAg WSCqOOYtPHReVS0NFPCuAQKrZKSkLVVyMHLxLTYoVRMfNKIjMEIqISSrQXJkXOSqRJBbFHGqSDRwGQHf OJSfIFNuYCGgUMGqEYNqANDsDWAgLUDsICXmZWUlEYAcJRXnZDTrWKEvRJFzPRMiFOVkGT7RDNDgEQVq ICAgICAgICAgICAgICAgICAgICAgICAgICAgICAgIC AgICAgICAgICAgICAgICAgICAgICAgICAgICAgICAgICAgICAgICAgICAgICAgICAgICAgICAgICAgIC QbTR0EUJNiNUBsNMLmJQUaYNWhGVGuHDKaXYUcOHLxPNHdRQNaARYwASOnMZNlKOApMCAkVBJsWODtCX AgICAgICAgICAgICAgICAgICAgICAgICAgICAgICAg TWJeXKWlSBDkXHXrZD0CAXUbMEVmCUQwOJVhDFXdSBVrLALhLIObGKOwFLFeFXAzXMAqAJMiZVKsENPj WGKuPYZgCQUaHLJgMOPdDTGjIRCdWVKwXBObVXTpGMYzGANdMONaURKgNOSbGNVbRZOpCVNyYO1WCR96 sMKcy8S5LWBeDY8imwh/Nr0TLLkpttUklQSwQI4SOy ZcHZ9mip9OYtBkWZ2jbt1OTChQImNeC7D3mZXyUKLtUFBIGnZiB45nHUkxPy88VYzqCYKlBwZtWYn6Cm 3OYqTaC5alGCMkFrC5VMLeTdX7GYKjOiM7PIQuZqVkYSqnZN8Ib4UuvCCfENo+Kp3HRT1sn9IfTVrrMl LxXF4jsq3WZIiBEbBbV2FkroA0CPArWLZyEn2EYLZw VIGxhPIpYiKtEKEAFyUgA0PjiS55BIXRDq0+OAmspfOsPdhXUqMhQXWkh9GeIRq1RA1WGSRmILh8sBWv UHVoC9Ixw8ToZb56XPNgLzyqUsL2JDtidq3wTYVwIustPJCnMHNdYw5mZH9gMXTjGNI8TyJiGTVUAC6H NDPdJVUggIStTIJqTLEBEK6OLDxnIBX7FxaljuPkeK UjUZulHM4MKUObcgLoXuUyMLNQCDv+Zb9ZGD2se0WjRNebPVCtYE8sfx4XFJvIFmFsT1S9yQUtI6N6KK zfCz8AKTAvBNOeXhMrFFSCGRivCV8QJU7qknY8YB7HgTQuADTqRYBtuNVhTDq5H96tuYAfKAlrWE4TJZ A+Yadira+Fp3LPBQnLTKeQEVbMjPjCGIXFdRzH1DsS3XO b4YxV4DoPC61kZltkvDmXTygLF1YFQ2xCBGhUHWKSW9EjYShxG1bugLdAyQcYHHCNtRcX11idNZrVCLj TFOpSIGcHv1PZLLdL8EzmyHiuBncewPxPSAhCLMFCH7PGSfwntRbwLNeqNbqMG29sHdkYD1IJm7IBiXd BR1uxd3WkZBvAs4HXVDfGJ0BLYAgGOXaDLHaYGL9DQ UpKsQdJVpgCYRyDYPvLPU8DTJqCGJiAZ2FZcOcFAJiHjqvLATkVFAeFOEjsv1HNYWoABQrKMi7AwKfZU OeCEHbYCanLRToGLEiSNW7YLJyNBVeTZ4ZHjXdMCMwQYK1TczdRFVhKZYqbh3XFKUdMBErChBvNVNxIH FxEDQxTTbgMTHlVZC3GrJ3NDPpNCRwQU2RAvSgQOQb GLT3ZRSxCCXlIFCqkf6KRJScRHMyFkf2MnFeILBvBXWkUPcvIDIjJDP5OBu1VYCoQGPzIV0TZpPjPWWp RJgaBmHnPOLaDFOwih6XESEfZVFnLOXrEFBjBANoDECzXWtzQGAhUMQ2MXW8BPBbEBEsAB1QDoJkREAe SAL4SBZeOWOsULLzdv6PIDTmSASjDOE9BrWvDBRpOQ MkNOcpAWOeEBAnAQA6TWMbYBXnCN4TNdReYKZcRaLqKNEjWPFiEXMfix3JABUpWEHrSwHhJZWuATBiVU KoQUklOZVfSVCkZyTaVAZxKWUxMQ0RKyGtUFAzVmG0BJVxJZBoIQLrnq7YJTFmSVEuNRUkNeLgNQNuTD UhUMghOTIaCEB7SFJ2ZJCdIDFaDL1MLkItICWjMfHs UoGqZLSiUTZsyw8EVYYeGSRmUJZrQZBsGAAoGUAaQKobUDExLFR0IqjlDHYkHZLmJS6URdSaUDKrYxG6 KtZzOCVuFVSvzi6OOUAaGYDcCibhZCBzWOIsMAYvMJqyVJEoHUH7QakeHJPjUOIqCO6OGpHiZKYsUor4 NyelGQYuSOQaon5TIWTrZFVlLZW7YWXeCCQuGFNxVK vaTVDtPIG4EGTgPCEeETZvQV6NMqCuWHOjMtw8YaEgIDXmJFGcfn3CTNYgREYsMVGcCGBtLIDkFDQgNH gvSOFrALOhJSurERBqZTItYU3VGpKiTXprOBWKJjg2SOasO5i1KWRvSC4NP6Hxp7DuXfTaUHBPQDugLK 0ummSaACJsCt7WF6tLCdhePTUiIwhlMfS5DzJ4ENFu DvT2RIM2AvN2CFnpFaN5YR4nOXK2KzPiTXNlKuxtIkpiYvYxCtGaDUQySGs3SBMpVlf9WqCkRG4FYs8V IuQ3UHK8iJYdUh3NQvD0PfOQSdEeHS3AMXy= ID Date Data Source [id number] 07/13/2020 04:04:00 PM EST [facility] Name Value Range Interpretation Code Description Data Evelin rce(s) Supporting Document(s) Glucose, Fingerstick 154 mg/dl 70-110 Above high normal [facility] The above 1 analytes were performed by [facility] [id number] [place] [address],[facility]#: [id number],[place] [address] ID Date Data Source [id number] 07/13/2020 01:37:28 PM EST [facility] Name Value Range Interpretation Code Description Data Evelin rce(s) Supporting Document(s) Progress Notes [facility] GHSDWd6nSuZGQrHt19/ZLPxmQTDra4PpTJqtGIx6HKkeVNYqT6RbTHX3aZ6hWQQ8DAuJSxMxObNhIsY7 lbm [file] UhZO2KRDl= ID Date Data Source [id number] 07/13/2020 01:14:53 PM EST [facility] Name Value Range Interpretation Code Description Data Evelin rce(s) Supporting Document(s) Consults [facility] RMBEHx0sMtHCMsLz72/KFBvyNVZte1QwQLxoYHw3FJqgICRbJ6NdKSC1qR8iTYB2LXvRGyOpSjHrEhD1 lbm [file] ICAgICAgICAgICAgICAgICAgICAgICAgICAgICAgICAgICAgICAgICAgICAgICAgICAgICAgICAgICAg GOIbONFxKXEpZJGmPUEbOJZoJGZiVPNyQUJfNQ0BHMBcDQFoTNEfXWXkEASjUHPlPQKfSRUlBRUrDVDe ICAgICAgICAgICAgICAgICAgICAgICAgICAgICAgIC MjPSPfNYYdSJTaETGvKCOeLHCiXKLrSUSkPOIwZBEqMWXtJYFhMR4RCDTeQSUyPVZxYJPvSMBwQOAyOA AgICAgICAgICAgICAgICAgICAgICAgICAgICAgICAgICAgICAgICAgICAgICAgICAgICAgICAgICAgIC NvALQhZJHkFAOtRCYzGOTiETYvYK5QITYhUMVpVKUm ICAgICAgICAgICAgICAgICAgICAgICAgICAgICAgICAgICAgICAgICAgICAgICAgICAgICAgICAgICAg LPIqNWAuNVCkRTSoIXZzSNVuGURgEHNaCVGsRWJyXD9XWEJjDERlBOIjMMGqHIJrXWUqWWMvBQWdIICl ICAgICAgICAgICAgICAgICAgICAgICAgICAgICAgIC VbZNKrGKRgKLHxZXQsEWKzIXLbYYGxIFOyUMWeZWQmSFAxICWtWDMlYE3IRCJkIBDbOVFvKQEeGJMzSX AgICAgICAgICAgICAgICAgICAgICAgICAgICAgICAgICAgICAgICAgICAgICAgICAgICAgICAgICAgIC VjVXHrGBVrUEEhWYLsLICcOTTvKVDsPD7OAYLcAYKh ICAgICAgICAgICAgICAgICAgICAgICAgICAgICAgICAgICAgICAgICAgICAgICAgICAgICAgICAgICAg IXYfHQVfEHOrGKQdKPSiSZZtWPFfYORlHSCrPIRfJLPyLZ0XJBHqZINxYWRhRVObYECdUCUtECAhLWNg ICAgICAgICAgICAgICAgICAgICAgICAgICAgICAgIC MaHREmEJMpHJVgLYVlOABpMLQlOQSyKEUiWCIaGNRgDBVzLAXaMZYvURTdVI8LDITkVQHnRYGdSUPrUY AgICAgICAgICAgICAgICAgICAgICAgICAgICAgICAgICAgICAgICAgICAgICAgICAgICAgICAgICAgIC UhUZBtXJZrARFnAQCuJLRgWYDpVNOkRTNfFE0AGZDg ICAgICAgICAgICAgICAgICAgICAgICAgICAgICAgICAgICAgICAgICAgICAgICAgICAgICAgICAgICAg MFZpWRHtUIMeDRHsLNOvNBIzKYFdKHBzRVRiFOWcYPGzUQDxLQ0OTP89hORhn5W2QEBjPU2iuuo/Pg0K YTvzwtPaoMPwNL6RLbJaRQ1jpt4UBnVhOS4iit7NQK yERwZtA8G1oSHbEHGpXJKGOiXpC82bVQlrTf64OQwnYDLqQcJyVLa7Mq4BFvTnT4uvYFUmEuA4NBFrFo L5VGJgJgH3LIHvKhRqXWWqMZHbKWGaDHDSIEX3RIKiAwCsZxPqOODeVGmvZFGBTUGeHQKqOcQyQqRpKH MvOgBsXOYNXR8LXwOhT6XbqN66VJQvXLu+Np4SCX1f m5GgHAw9KEPzFD9czb9TLYkCUgNmU7XmtvE6MUAeKCBrIo2NKGGoTCVgrRA0QGIwNQNNSoXmX0IliJ19 IDENCj4+SDpmkwDzGvcATkKmBQSqr3LqIGi8MT9QADCyXGm0bRNyO92qj9VqtSMfDjioN9R4wmD1NAFz iUJlDRUUMSWhiRSqVpA3OnXsXyVxKOI3EGdvXU9sXR rgKD6BRIJ7GTaqIWNrHHFoL9gYZhDoJNshTYAchEwiHZ3PAyQiM2VsqoMlrGA1XHLoMHJCSm2+DQplbm TzXnaVGzFyTYTlr4SeYPw3CZ5TLVCmIXmaZC0EFTSnlX3oWDjtGI6YBdD8SmOzMXOFPsMnJ92cnRYqTT w0C1OvTbCzLECjUesrJJHqGLvyCfXfNIVaFuDbWTel ID4+ID4+ZVhmUQ7OSBuywzBxABUzXt4FXNBlHCBiJI8yBJEeQEQyD6Y1qDonEPGPZsQtY3zvhwvcGM8x OHMbX733aWyznbQrVPE7PKQsUu4FRLAbTRS9EMJnrMFaWBgpDUWGRJivRU6OzOUhXQU9bG6gFJjyJHWk YVEfO1aSPwCquYpzCJ90iEhosyYrcCOsVRd+Pg0KZW 1et3KgEAq7fbRrBXtgGSOeBCnfOENyRBRjIDJuHMB3IOL6QAFQShTdRPKqGIExIVbvTMFwMBPnrf6IWW CvLCPdCsjfBNXyQIQrSUKtVVxaOKTzQNM2DfTuTKXuBUEgZN0BMmEbTKDqZLCyZDqmOBLcWHBugu2HVF KmTMQcUIMbRaTnDRTsFGLsHDxbMNRaSOC3PqGcTMLy FDZfKF0RPwUtEEKeAAenBKszVLQnYPShtb9ZRWOyJGSaTrChWoUtSPCzSVFaBUddWLSuWQK7JFXmDAXe XBAvZU2NDnXwJLZqXOsaOQLxHOExPEVjqc5NUYCgFECvNXy5JQWxWWRlTNIlJUoaUMEwAWLwQMw2GWBv IEUiVE9OKfPvZROxQJVmTeHqJYXtSQBclg9SCQMkRH AdUaCpYPXyQLFrKFTbRXstEMUbTEE4VaT9FIEjSUAzMC2CZkSsKVItHXD6ZsKvSOMuHVLnco9YNVMvEF ShRAF8DDJzDVIsIDGhLJlhCAGvOJC4AVIvCAFnPUTiYG4TIyXsZCLzHtOlLUEqJZHuGMUihe1HRQNwDT DoADF3QFNaZKGnLPKrECffLLRrTFZkBBMdMFIcRVVf DV2SQqWgHFHyKxXxQxZfURNfROGtjv5XDALcXLJcHnS9VABeWVJeKHMyWVtuBJCjNJJ3LoP7JAMxPRZj XP8ISjPnTTLlDcdjKqEsINKsBJGuih0ZJEXkGUHoZtClENYzDMUwLCTqYZymGVRwHAR6Acf4VOYjGULk TM1KFcRwFTAzBnq7XUltOSNbAYRqph7GXCHuBKLhEY K1UcArQZJiPAGpDJbvEIQlQAL6RfM1XVHeDBPfGV7IJlNrGSRfTss3HwSeRBIvIBLoxy1ZHTNfOGQwTO JnQeRaTHYuSAUiQTjjOXSqWHRpSWj8BWZiNALzGQ5XYgVmPBYnNjMwIeWqFYJeSTLvov4OWNYtDPSqYT X0XUTgRVKhQKVrVAajAXNjVWDqDoVoYUYiEWYhOE0W PiEzHOKeDtQ2YgfyZNXxVUFnzc0SVHZsGJTlVgcmYfJcSQGmJABgUOtbQEPuHYIyXdx0VOOyLWBaUI7U ZeSoQOEbMfA5VZPcWIUxZNMrsc3JYNZsGRRtKQM4BfRkQDPdZSKwQGftHHJcNCB8BSLxQCRgCRHrPY5W YuFsDHIwOcPvIlJtFUTfTZCmkk2SZHQlKOXvBTAsBa DkMAIqHEIpNQicFJGjAXN9Eqw0DVVyDRRxVS9GHjEhZDIcLaY6AGQvPOBsZDVrur5JNPYqJSPeJmu3Qf NsIFUjWVKnSJgqBYZpVQM2PufhUWKoBHAkRI7NOeBnJJRcJsx2JTyrMZOfUAVacz0PVNLnINPwVOr2MP AbEAVsIFLwORcrWIVnQRC6EKFjNMEbAQYbBY8COvHa PEdrWXSSAne4JWoiR9q1VEZ5Sz0KV0Qzw8ZbIRUlDNCTDMtkWB2jhqBsOZDsSm3VX2gUJbl8IsLgIAHl Ovr1RMTkYInnXdGySzs6QmjiZqUuYRTaCl9pLUn0KEXrDlBaCFsuJsFpHJRmZLEjUbAwFTFcTKX2DGBb LzApEM0BPv7JXvO9VPE1gYLxVu5HRxqfDEJUGxVbAA4XAEj= ID Date Data Source [id number] 07/13/2020 01:13:17 PM EST [facility] Name Value Range Interpretation Code Description Data Evelin rce(s) Supporting Document(s) Progress Notes [facility] DEITZz3eJsYKSuIn51/JJGdvXCKcs9JnDGauUDb2QQltZUOnO1QkMSC1iJ9fILV5LTpAJgPeWwScNjL7 lbm [file] [address] [employer]+aJeuv3iogzl4tUGs/Gs37Q/Z5Bss3raaxjZbIxezUR0/8Cv8qnc89WrwEt4W4k1rMzsf5iFsR4d1 [file] AgICAgICAgICAgICAgICAgICAgICAgICAgICAgICAg HRSbYLNjNZUlXH4GIIWlWWOlFACfKHGaLDRsNUHfOVQiHAOpOBBjVAVfPLCgTTRpTOCiZFGwHLHhFEDv RWDyFJUvDTIzNXTxXEFoVJGfQISlRTPaISEhUCRkJFSbPRNdXXRgSFGaHSNzUNJrMXEoIZ9IZBHbXRIb ICAgICAgICAgICAgICAgICAgICAgICAgICAgICAgIC AgICAgICAgICAgICAgICAgICAgICAgICAgICAgICAgICAgICAgICAgICAgICAgICAgICAgICAgICAgIC OlEB1CJGJdFDUsNNFkHMDrOLJtCFPaRDYsYCRbUBIrFSPaGMNnBKCeJSCqNAFmUZEpSHYvETOtZHCvWV AgICAgICAgICAgICAgICAgICAgICAgICAgICAgICAg EEDoYZUuLUAyUNWvIO5OZJQvOGYjCXZxQQJkVVSvZLJkYIXkXZAiTJWtMMDuBGIbYPUfCURqQAUbDOBp JNSeRJInQRNqSONaPROwYDHcXCAfQUHpKBNhNZJyYGBrTZEhKKIyENVuBGBcRGEgKAUbTABrZW5GCOGh ICAgICAgICAgICAgICAgICAgICAgICAgICAgICAgIC AgICAgICAgICAgICAgICAgICAgICAgICAgICAgICAgICAgICAgICAgICAgICAgICAgICAgICAgICAgIC SkRLPgNY2RXXMpFIAjRUYtDCYqTCTcKNMnOBZgVBOiDUAmSDSwCRZkEIVuTXMrLGMwNAObVUVpDCApFJ AgICAgICAgICAgICAgICAgICAgICAgICAgICAgICAg OSZqHATwXYRvPQZcEZHkTE8YRMTyYCDqLSGuYTAmKGPaQENkUFSlPWHtTXFeCIIrVMClKPAsARGxSPWm NHTaVPEvQTSaZBCpXVIbACSxTNOeVZHcTWJsTVDoWZEgKSBxXLMvLZBoPFChXKMjVQFyITTgPHIkVP5U ICAgICAgICAgICAgICAgICAgICAgICAgICAgICAgIC AgICAgICAgICAgICAgICAgICAgICAgICAgICAgICAgICAgICAgICAgICAgICAgICAgICAgICAgICAgIC MgUJFwZZKkSD9PQWLkBMNfJMSiPGUbHNQsZTVrHEAkONQzPECkNEZqGCVrFBMuSABkGTDzBRVjLYHmFA AgICAgICAgICAgICAgICAgICAgICAgICAgICAgICAg VZNrWPZiLSKhKWSaEKAoNDXjOB7JEC19rIYug3Z2IJHjOH5axkn/Gf2NBCpnerEhnWNiYD6TWzXrTI0l kn4HKgTdSY4ugu5NCAbJLvQuA9P1cQGyKCUaPHGTTlYfI18wHPnuNv62HSapTZZqEvDtYYc8Fh4SCzIm K1dpOOFxIxB1HBGpFbW7NOItHrE4DWYaPyVoEXFbTB MhQPEpQFWFURH5NRBsAsMpLpIgCAVqXNatZBSFQT9HBrWcR6MblC80XBqOMw3+DQplbmRvYmoNCjQwID Uyj0DnOYz2BW4PHYQoMivkz9QdJPDuTNFCULbcZQ8RFXH2FXZyLNYeNb2LCOQuU650drLcRA9OKi4XIb KaPT9hmk0TBCTdTSOwNnpTXyh7RHkbKU1PfNZoHJlE zx9zbnIdjxAZt0PgrbPtcTFUUROjLJClFUS2HCicWE6RFMV3IZUmEKakRfNoSXDpOXjtVkNOSRpVFzWh S5Bho8HjYrL3XVBxHkAfLRpeSNEhPnM1RR36iBbxIB1DWSNyDTZcOU64QWVnIIDjDk6FNi1RDzGeGR8e ii3FGBKpUYUrWipWOji6KFkpFS2GuFBzL0XgqCDtc2 aRDsHvW1UVABX5JXQxTw3RWFFuOkWpYCQeEGmfFL6bEAWgWAFBsZiaihV1FH0NOP9mccXbLE3HUdGiTa 8aHg6RPwPqM4AkB8GkGYGsQPKZIPufVK6JNTkjKO0yFE9Ib4JXaKRirG1wik2FBUPgIWEbSolior6THe rkY6E7xXewUQSiVQGsRMYONEeoIV9JYKCaKDV3CNTl JLMuCNQVTxFeT47rNM1FC9Awh94rKxD0XVVqNgIlGPlbFR44iSowesQkoZJmiLmdXU7AKq1+DQplbmRv HkrUYndaIYLQLuIvACFLApAtBCAfHNDgWMYrJhM8WwRhUl0TUWAjKPDmQIXfHuGgHLDfQTWsDZucQXJj GYX6OrS6JVOrYDWiTF4YCoXwAIOqWvYtFuOxDWYfEU Ddae6RKVTzZPUdDYZ8UuUyYVZyPKFwVZxbPDWrQLOkHTGzBLZjDVIaAD5DSwRvLWMkGGTjGcPhSFMfIR Efva7ELKEaCIIuMCwzVsLfRVRaWCMgROaeBTVaQRQ4UJD9VHApUTJxUR0YUsTyQQVkCNk1EDVzPPRkPQ Knwl1GSQAhALZzMuenIIXhAMXvTATcECtkWHUuARN4 TzH0LPIcSYAxJZ9PDbDhJADfUOe0BkBqXWZpLSGjtr3PDZGpRZWbRAgaAtUrQLDfRDQxYOjaWYKtPAIe QAToDQTjGXJwMH1UDwDySZBcHME5YIWjFAJvAAZjzj1PRCOxVXNzQQXtVlEnMDQxELKlJSzwCQFwRTU9 AwuwLLWeCLWdIX7JDgSpHMMwGCp4EvWdYNXaLXDnfi 3GVOFhNVJyALtcREPkTLRtEXIrJTdrWPIjILKbMQSdZOGiOTIjSO9DHcRyEZKzGbQuQBkyGABxMJEtit 6RAHHySMDlVMUvBHYpMUOlBDZfFIwdICLxDPKvXBt5EVYrLWJrKN3WZnHyXPWjKzV6VXdxOSMlYUVnzo 7FTUFdNXHrLqY4KxCgVEGoAKLaCGosABEkMDKmMPQ4 PFBsFXWfOW6RQoCaVPRsLvG6BUhdOBJnLMRkof3UPVIcMYJmZlb5EEUeOQJhZFAfDApsKOHlACQ1FZgw SFWsORLrFA5UGjFwEAEoLeAfDfRhRXPbYGHpml5VPWPuRPGyHATkPFIqMVCtGLQmIQaxAMXpOZI5CKN5 UTMmMYWjJR5YGoNgOJGyQlJ6BJiyHHXlGGJntq5BAR AePIGrPaX4ODPxRKYnTDAiLTtjBHZzNVK4VKgpYJMnTBMlLI9XAyXyQKBaSkh8BsIgBMPlEHUtdh6UJC HnBEMcWLW2YcYbSSOsPLLcCUahJKLvBIW5GeEnDGAvKSSrCM7PCvOtKFDnIkn9TjIeVUShHJTxyy9DLT HvUSGsOPRhJIUxERGhKQKmBCgpPAFnJYKuQbr3ZFAx ATXkXP6ZOnSdSTLlNjG3FvJzAEXhGYZhfu2KeGSdaBjvmv1YVVxGOj4AsVmiGKNyMXtfTe1xjBC7FjMj UKXVJw6EfzExLORpFGEABKbgHUYwKKYvHXWdQHRzTdpxVPZzAKxbUBRsVwBqRZCeVHNrD6S8PqX1WIMe JVH2QhW4BOAjRpCiUDClCKB8AwT0VGK0PIMzLuq+IF 0gDQo+Sa7Xq8XvklE7jkQaIGmlRQD6Et7SGIVHA9ABSs== ID Date Data Source [id number] 07/13/2020 01:12:02 PM EST [facility] Name Value Range Interpretation Code Description Data Evelin rce(s) Supporting Document(s) Progress Notes [facility] BDSSFl9pYhJNMhOv53/QNKbbQTNlw7ZlDDouWVy8UIxoANQbH0ZoCPP4xI2lXFP0IGiTOlEqKqQbXlN2 lbm [file] AgICAgICAgICAgICAgICAgICAgICAgICAgICAgICAg ICAgICAgICAgICAgICAgICAgICAgICAgDQogICAgICAgICAgICAgICAgICAgICAgICAgICAgICAgICAg ICAgICAgICAgICAgICAgICAgICAgICAgICAgICAgICAgICAgICAgICAgICAgICAgICAgICAgICAgICAg ICAgICAgDQogICAgICAgICAgICAgICAgICAgICAgIC AgICAgICAgICAgICAgICAgICAgICAgICAgICAgICAgICAgICAgICAgICAgICAgICAgICAgICAgICAgIC AgICAgICAgICAgICAgICAgDQogICAgICAgICAgICAgICAgICAgICAgICAgICAgICAgICAgICAgICAgIC AgICAgICAgICAgICAgICAgICAgICAgICAgICAgICAg ICAgICAgICAgICAgICAgICAgICAgICAgICAgDQogICAgICAgICAgICAgICAgICAgICAgICAgICAgICAg ICAgICAgICAgICAgICAgICAgICAgICAgICAgICAgICAgICAgICAgICAgICAgICAgICAgICAgICAgICAg ICAgICAgICAgDQogICAgICAgICAgICAgICAgICAgIC AgICAgICAgICAgICAgICAgICAgICAgICAgICAgICAgICAgICAgICAgICAgICAgICAgICAgICAgICAgIC AgICAgICAgICAgICAgICAgICAgDQogICAgICAgICAgICAgICAgICAgICAgICAgICAgICAgICAgICAgIC AgICAgICAgICAgICAgICAgICAgICAgICAgICAgICAg ICAgICAgICAgICAgICAgICAgICAgICAgICAgICAgDQogICAgICAgICAgICAgICAgICAgICAgICAgICAg ICAgICAgICAgICAgICAgICAgICAgICAgICAgICAgICAgICAgICAgICAgICAgICAgICAgICAgICAgICAg ICAgICAgICAgICAgDQogICAgICAgICAgICAgICAgIC AgICAgICAgICAgICAgICAgICAgICAgICAgICAgICAgICAgICAgICAgICAgICAgICAgICAgICAgICAgIC AgICAgICAgICAgICAgICAgICAgICAgDQogICAgICAgICAgICAgICAgICAgICAgICAgICAgICAgICAgIC AgICAgICAgICAgICAgICAgICAgICAgICAgICAgICAg UHLzGANuCBIzBUViZHPtREYiBUKmLBPiXLInKCHdJGCpFZd8Z2hhGZUiAQNhJG6jWPc8Wn2+DQoNCmVu VOX8azKtxQ6GNT0aa2CzHByxIJVzy8YkODz3HG6MEWTlIYaqOF3MMRykte0OTLGrJLIpzQUVz4hyKnHk YHZ6LNOlVninJJ2CJUJkL8rgpvDpOJDoIWFDWW0DSy CyK1JlyS34VZBJDz3+ALgxnhDxWioSWkDjCKOrw3WaFOc9TH2JIXRzUjzlo9CqVdOcFGKUZOlcRR4JGG I0PQQbDJOhIo6RXSRcF912naAcFI2NNx9NUwTvNU3fwk6BVlLnFHZhRtqBInr6TXidAT5UpHJfGKrJxg 4xrgKgpeIXb5ZfznNhjGNOuNTwdJFuZ7H2nVveTKOq SKKjFn3zPN0tSYGvSFZjIlV5XWUZMN6XCLWxPTFdzTTlEYEmSVJLYY3YKBlgNZO4RqwpqqWqbTJvUDel MP7DVNLomoNbSfQlOTQAHPz+Vr9QTM1vg4SiAVqzECRjWZ5hpe4LZCwJOqUyD1R7fNUgH7Y2AMnkCy0D XRHfXKNwDvWaSBUICAqxWA5DCL1qhzS2LM8FrRYtCD HdZFUfwCZuSNp5D25wsXQfPXdxXS2BQIR+Yadira+Lo9AMKEaYHYsKJMfDyVhDQJDDvViG8HtN7FFe8RuQ6 LiXV43vEnmdyToSFltRL9RIR9yNXCkPDUFBM4TxVXlpU9uauTlTjIbAKFLRyTiV99sbQGpGEWeXDJeMK GxRc0CFKMpN1FawlBfyIwvpyPiIEPgNKVRWD7SGIjn yzKhqGNinNapHS71mYwjDF3ELe0OZfUjLC6ewa0OwZAeAy4OPXXxAY1NTPGfQWGzHDJqWTL7BNKyMiJc SMipXMSdCEWfQPO6DYPzZPNoYY5KGcAqUQWyNMu0AZveYCVtZIRimd4BPBKmEJZcTSW5DITdQYApWSKm JEzuIVVxZHHeTCS4RHOlINWdKW0IKvZyANPqPTW3Br taZTOnCWWlcg5OXGCjYGQtUCA6SQHyCRWeOXHyKXgyDGTdUYKdGiV5DODtNTJgGX7RQxDnDHNcWIQ2Bt FtOHCuZVFnkd3PJTUpXLSyRtLdDQOaZVLbFSCcPMpzSEEvEMUlOMe9JHCsWZLhWK5UGmFbAJPhSQIcYg UhJCHnTLWjlx3QGDPqSZDbPLY3WsUeKOKoXFGyFIlj FGRoETJ9DwWuNZHnBCQbUY7JFtEgMFRqGTppPKctWMWnYBYqha1HWGCmNFYwIqKuOfLgNNZjWGJnGRsh WMInQDE2YHT6OVFbWAJkDM2DAaAsDFAaTLl2IDHbCHZmDTIszg9HFFFoVFHuNXF7XlBkRCAuYBZeECcg KQQbQAC2OsC0LRVeJJAdVE5RQhZoVVOdNPu2OhXwCJ ExSMTprh7AWTElARJbVZV4UNEuEKGdZYNyBLawZVAoHDDyLnp3ROUpUFOaNI0COyKdPOIeNvH5DVByID YhKPXpod4ABNIrLEWqWCd2IzQkUNLrAPFjEJp1peCvvYWvKJr2AD2OM4MxmjUiDwFCSu1Qs989BWS9TD ZnNi6YW9vfBr2lULEdQCUDTt6QEDn5LLRiOEpnZhC7 FANfTUGrRVT7MRGsGpXsTKnmJSS3AkN+GMb5U9VwIFX4GoF1CoE3HsL3VFxvEBUfCqVcADYeZypbEV5d XSANCj4+BOophYHojQmgUTGLWrNaGqZlBBlaXXQPPm8M ID Date Data Source [id number] 07/13/2020 01:02:19 PM EST [facility] Name Value Range Interpretation Code Description Data Evelin rce(s) Supporting Document(s) Progress Notes [facility] ISMWOo5tFbMZIoDv73/OAJxpAVJem0UzNPuwSRt5JOpfYKRrY2GvISU6nW4dWUY9JDhIVjEkCdTxZgS6 lbm GjGraZUjItGJLmWpxZQeHtIKxaVjghoOLaVX5TuJU6TIHgB65lZXEqYSSeB6KrSBE7XWC+An0FGLXmhJ IyXJ7XFgwT2X4Pu1z9LrAmX4w/cOiRduUMPVC6ZuQKGiqK0BNQHscsalxFPkzEDrS3jCiav9+An4U8aN bIh5NDRf0uT1kTW6imZ8zHkLI455y7hpFZJsE+7Taz PssNMyq1v2U/CSUrVw2w4FO4hsl8tZfWPoCB24/wvIgynQx+hF8DqnpsBvdnXZ2SIE1uX+lWQHlBSM4e aaevc/i3Pw3slPRnOIo6zUMSr3efyqy40WnMfskPxaFCYq+Estefania+ZkgIOvonCrayjecv9C5vrv4fHw45t [file] Kovxrp9EoCLNtq9LFxJUg4aP19KuM+K71WaweY6G0ved1K+d9JgcWg5SCf29PWQNAdZz89on34L8+carton counter feeder [file] ICAgICAgICAgICAgICAgICAgICAgICAgICAgICAgICAgICAgICAgICAgICAgICAgICANCiAgICAgICAg ICAgICAgICAgICAgICAgICAgICAgICAgICAgICAgIC AgICAgICAgICAgICAgICAgICAgICAgICAgICAgICAgICAgICAgICAgICAgICAgICAgICAgICAgICAgIC ANCiAgICAgICAgICAgICAgICAgICAgICAgICAgICAgICAgICAgICAgICAgICAgICAgICAgICAgICAgIC AgICAgICAgICAgICAgICAgICAgICAgICAgICAgICAg ICAgICAgICAgICANCiAgICAgICAgICAgICAgICAgICAgICAgICAgICAgICAgICAgICAgICAgICAgICAg ICAgICAgICAgICAgICAgICAgICAgICAgICAgICAgICAgICAgICAgICAgICAgICAgICAgICANCiAgICAg ICAgICAgICAgICAgICAgICAgICAgICAgICAgICAgIC AgICAgICAgICAgICAgICAgICAgICAgICAgICAgICAgICAgICAgICAgICAgICAgICAgICAgICAgICAgIC AgICANCiAgICAgICAgICAgICAgICAgICAgICAgICAgICAgICAgICAgICAgICAgICAgICAgICAgICAgIC AgICAgICAgICAgICAgICAgICAgICAgICAgICAgICAg ICAgICAgICAgICAgICANCiAgICAgICAgICAgICAgICAgICAgICAgICAgICAgICAgICAgICAgICAgICAg ICAgICAgICAgICAgICAgICAgICAgICAgICAgICAgICAgICAgICAgICAgICAgICAgICAgICAgICANCiAg ICAgICAgICAgICAgICAgICAgICAgICAgICAgICAgIC AgICAgICAgICAgICAgICAgICAgICAgICAgICAgICAgICAgICAgICAgICAgICAgICAgICAgICAgICAgIC AgICAgICANCiAgICAgICAgICAgICAgICAgICAgICAgICAgICAgICAgICAgICAgICAgICAgICAgICAgIC AgICAgICAgICAgICAgICAgICAgICAgICAgICAgICAg ICAgICAgICAgICAgICAgICANCiAgICAgICAgICAgICAgICAgICAgICAgICAgICAgICAgICAgICAgICAg ICAgICAgICAgICAgICAgICAgICAgICAgICAgICAgICAgICAgICAgICAgICAgICAgICAgICAgICAgICAN Cjw/hYLfQ8rifZAavqS0H8vgOi3BWf5GBV6qd2IzZS TvFHdgivXfMjcAZfNcMPCzAlfGTnn4PVizFD5BhADyX7WlE6WnHWqaAO3TIEPtAQBvaXXdBKZdNCJrXp S4QRZcGQtbFZ3WgMEoBUlwFWAtGVAbMmGsNZJcSLEdMQVjFN0VTJHkJ969eiGsXh6AAi8KKfJlEB3xdx 7SRrIxNVNuPrgTRad5TTkmIL9SmXSxcWTbOjZmDEEU YlQfQ5qxb5YcHzesDTWNDDbeCC7Gq8JkuHEpOCn+Wn8CER3oj7KjOQcaEbJjOG2lre0DCRnFVoBwA0Wg jDivEAWem3bmRUUnSG4deKMzXXN7BAzzmZXvLBecY9H4KHnmZ8YyAMSlKo4nYT0oICAwXNZqJkD0AOGN ZZ5EMLJeBVCldFCuJGYgHPHVDE0BTMsmXYG4Qqdtnx DwtPGaCYqbVM5CKHQcodTfKkFoDZRUUEc+Xg1NLA4je3ZcKAkvUFHnDZ5joc1ZNSdORyQfY6D4dPRhZ3 O4FCrpUg8CHHDvYRGcTqLuMGEINHdvUV2EAG1xbwO6CH4ShXNlKTEyTODqjBExVHg4F22dmVYvLNjqNV 0KICA+Yadira+Mj7UMARiDYTsHYAsByNcTIBYZlWhN4Dz W8APo8MxN5DpVP45zPehplTlQKirIG1LQW9tLVKgZFYYKW5ZvWIomV5dwbIsPuLwWDMKQiHeI31xcWGb FRQrMQR9ZIEjQl0HOZTxR0YnogPrmVuruhAsDLYgXOZMAW0BKDimieHqtNUerTugMY69vQmeGP9EJu2L HqRvBD6wmw0JtAYgGi8UMVTcIJ7HEFPaWTJxSIFsXX C3NXJxMfBjAJsjLDXrEERxCRH3MLCiPAIxQE0ZGyBmPFFqGsZkLVYrLZCbSMXrsk2LSCAaKUTyIaxjKb UzKHPuUARsEQnqPNKoTFRnNLQ4ZSWzVDXkRC5WEaSgVIFaTKApSMYrAOFwATBspl2IUDEkDEYeLjV8Ev FtWEBpOELpVZmiXLEaKNK0TMe6RUKqUUBwLZ8RZaEo ECVpBMImVBOqDZHrIWLuvh8SXGZiZYYxLlVcHkLtSRScCXUhXBvzMNUoVKR9VORhAXFgUZDpCF8HNxZl DMMfRGl6MxQoNXGgBXSvbu9PRNCsVKMtFVr0CgKjFOObCPJnOQqoIINzBFO4ZSJgNNKvLMNvSI7LFiBs QWVvXYUzCfFqJEKlJPQodm0IKKXcRYSaFLFmRkMvCG UsKMTbQSooHEExIOJrDXTsBCZqHEPgMU8ANhYyOVLlIfN1RRkqCUOaKWMgmc8WVZHdZNMdLeX0IIVmKE XcRUBgYKneQYNlBWXpNof5SCZoCRVbHN7ANwIbIQRbVuF0BVLlKJNfIJFscm7YTAMgIOSkIbn6AASzPS BrEVQjSIqsQKOoXAG3ClJ0CHOzJEYeEO1CByMrVCYz BpG2DAXhTXCcORKycd4AKHBeSPDcTKS9TAAdRXPfRKBeOJlkLPNjCVJ3HVh0YQJwAJXrOP1VPgNuXNPp YgB5YzrhNDXsDYJhpj4LYLRvJJDwPyOrFXZpIDOjJLXbCEtqZKZxJOP0VXS3RMMcJYOhBF3AAmJcRQix FBEGBwu5CHovN0r0PDYsLG3OK2Bmr7OlDmbdQLDWEP gjVX4qycHkRJYtOy7XI7vCHunvUZeqZNp3FeLvYLLtWUCtDtzrMAj4SGOfENC6IactTT4oAHV1LtIpFD x8RYZcUZUpPEDlU7IpPYnwWRA5KCdbDEUvYtTeBJ3KHd4YQsU4KUY3nREbKb3CNsxfSKeOTtTnFX9IGX o= ID Date Data Source [id number] 07/13/2020 12:16:02 PM EST [facility] Name Value Range Interpretation Code Description Data Evelin rce(s) Supporting Document(s) Procedures [facility] FIJSQe7yFaKSPdKr11/JKVshAPTku8ZnUDtwXQi1GTmnPNZtA7TfUSL4rD8iLJV3VWaFEbGtYvVaVwI1 lbm [file] AwMDAxMDkwNyAwMDAwMCBuDQowMDAwMDExMDkyIDAw NUTpDE9JWdYcTESyQXQ3YMEfWDBaQSUvkq3LKROqXOLcLmb2ZXGgVIThVDHwDGwaHDPbXRHoOAO5JCDg LVQzRR9XScCcUOXdRACrIYocJEHdKEUwpo4CnAGmlVupph1BVHzRAj3YwQcbCVF7ETwfDk7mvBMuDsGh RMAQAf0JjeDhIKPlGXBQEFgwWVFqARhdCuKjNeDmFg JdLGqeUYM5EcRfMuP8GNWeVGSlZiQpWlN7YEAcJiHmNFLxIoW0JKPnXICoGMYaIzh1FTEaU5D6OMB+IF 0gDQo+Es1Qq7OcarV5raJzGSpkJjQ6Yo2DKRBLR4DZHl== ID Date Data Source [id number] 07/13/2020 12:03:00 PM EST [facility] Name Value Range Interpretation Code Description Data Evelin rce(s) Supporting Document(s) Glucose, Fingerstick 234 mg/dl 70-110 Above high normal [facility] The above 1 analytes were performed by [facility] [id number] [place] [id number] [address] ID Date Data Source [id number] 07/13/2020 11:43:06 AM EST [facility] Name Value Range Interpretation Code Description Data Evelin rce(s) Supporting Document(s) Progress Notes [facility] ILHUJx7vGoKBAmAm20/WLGesTZHyi2YpRCbfOLi7CEggMWOtM7UhKMV7lH9xHXE8XPzBJiIdCuJyKtQ6 lbm [file] 0DQiI6ZHL0hCRnEi5GNQh4IFgZSnDjPM9ELXj= ID Date Data Source [id number] 07/13/2020 10:37:09 AM EST [facility] Name Value Range Interpretation Code Description Data Evelin rce(s) Supporting Document(s) Progress Notes [facility] CFIUIc8fKuNTIzPs51/SSTxnTSDrn9QmRUwcGCw8UUwrESVjT4NlSOO1oW9uQET5VZkSCaRoUvImZjS4 lbm [file] e4MuspU1fyGiFVryJmd8XL6UGCQER6AXVq== ID Date Data Source [id number] 07/13/2020 09:27:18 AM EST [facility] Name Value Range Interpretation Code Description Data Evelin rce(s) Supporting Document(s) Progress Notes [facility] CMZQFj7uCjBEKwEc69/ZYLgpNHRqb4MhNUolXFu1TQzoBEKqU8KkFTN0xB0mMGR0MNgTVgNdVvOfAyK7 lbm [file] AgICAgICAgICAgICAgICAgICAgICAgICAgICAgICAg ICAgICAgICAgICAgICAgICANCiAgICAgICAgICAgICAgICAgICAgICAgICAgICAgICAgICAgICAgICAg ICAgICAgICAgICAgICAgICAgICAgICAgICAgICAgICAgICAgICAgICAgICAgICAgICAgICAgICAgICAN CiAgICAgICAgICAgICAgICAgICAgICAgICAgICAgIC AgICAgICAgICAgICAgICAgICAgICAgICAgICAgICAgICAgICAgICAgICAgICAgICAgICAgICAgICAgIC AgICAgICAgICANCiAgICAgICAgICAgICAgICAgICAgICAgICAgICAgICAgICAgICAgICAgICAgICAgIC AgICAgICAgICAgICAgICAgICAgICAgICAgICAgICAg ICAgICAgICAgICAgICAgICAgICANCiAgICAgICAgICAgICAgICAgICAgICAgICAgICAgICAgICAgICAg ICAgICAgICAgICAgICAgICAgICAgICAgICAgICAgICAgICAgICAgICAgICAgICAgICAgICAgICAgICAg ICANCiAgICAgICAgICAgICAgICAgICAgICAgICAgIC AgICAgICAgICAgICAgICAgICAgICAgICAgICAgICAgICAgICAgICAgICAgICAgICAgICAgICAgICAgIC AgICAgICAgICAgICANCiAgICAgICAgICAgICAgICAgICAgICAgICAgICAgICAgICAgICAgICAgICAgIC AgICAgICAgICAgICAgICAgICAgICAgICAgICAgICAg ICAgICAgICAgICAgICAgICAgICAgICANCiAgICAgICAgICAgICAgICAgICAgICAgICAgICAgICAgICAg ICAgICAgICAgICAgICAgICAgICAgICAgICAgICAgICAgICAgICAgICAgICAgICAgICAgICAgICAgICAg ICAgICANCiAgICAgICAgICAgICAgICAgICAgICAgIC AgICAgICAgICAgICAgICAgICAgICAgICAgICAgICAgICAgICAgICAgICAgICAgICAgICAgICAgICAgIC AgICAgICAgICAgICAgICANCiAgICAgICAgICAgICAgICAgICAgICAgICAgICAgICAgICAgICAgICAgIC AgICAgICAgICAgICAgICAgICAgICAgICAgICAgICAg ICAgICAgICAgICAgICAgICAgICAgICAgICANCjw/xAJnA5rwkOQqmiX7K3mlPd5GCc3HAX1uq5UqAFRt LLwuerNgCgqXXtEjYRVhNyjAAlf7ZKlpNJ6DsWKuS0PcB8HvBAtcUK4JPHPpKFVhgJSvEGLgVNWyQkB2 HPFqGQyhCP3KiJRxVCpfBAJkVCBdKA5CYOSpV974gt EsJP2MDx9JWjLrTP3vik8GIiZhXTZjKbaOJrq7DWggNO5DfNRcjCEzIcRpSSOCWiHcB4jsr1ZrIqXfUM WHIKbwWD0Aa0RqfHXgEPb+Nf0MZA8id2YmPAutQpRwOA6tig9SWZbEUpGhH8ZruZkpFFHon2pqMNYoJJ 5okIMiNBT5ZXwiq47dOBMisBTjkHxcQIAnBf2vUR3m UDTvCDT8VqF8JFCMNR8KYKQrOERarORcSPOqMHDXKD1KUUtnYCZ0XkopejWisPOhNEkuEA5SOOAdtnPg MjUgMCBSDQo+Or2BSG2zw8AwESkbTbKqYF9nsn8NZZsMQlWlV4K8nNZkN4M7WEbgVi9BEOQeTPKiTzBg MABEPZxoOE7XIE3lsfV6QJ9VhLToXCZgLHUcgPHlJX y7R46ifNOfUFwyCS6AVTI+Yadira+Kn8SRDLdPVSeGNXmKhYnFFIKDuJfX2MwA3ZJs3CmB2ZsEY14wLgngj WaMUxhQR8JIW8qZQGaUTCWIZ9TxJZdcC7aieXaHQTrTAYVFtFaU19kbLZyNKZnTVL3BNVsEc1BMIMkN0 ImnxYdzGrslxHqOTIgYNSNAI1XRQqjfbWtkKWlbBpw EV43qBmxKQ8ZNs6UAiBcUS3trv1NpNPkFo0YEAXePN5SBHPvDDJaRKWlPAI3MZTzEbEaNKrtALSbBMJi XMM4SDKiRWGoDF6IZkLrBCGyTlQ7VSQeMDJzMBVejw7LHASdQYStBpL9OzTaFZYgBJKaVQqqOJPyOVAn PDK8CMYpMAGkHV0AMuIiGZAqFHS8IdShERHcSKYkby 8UBEBpRDFcQqW1JyRiPPEnTINnAIuoZRLaFVTfLYO5BDUbZSSzAQ2COlVxNNFaCKGmMtUoTTNbTCRwjm 0FZGRjENOdUtJiPTDuHHKrQDBtTInpSHOhGSC5SUQ6YKFhQPWtXH2NMnFfXUWbALO0YpArQWXnDLVkou 8NOTTkXZHlIKa8CEHhEIXwTOOaHBvxMHYwRYL7DXt1 SDUmAQLmOD4VUgKzXQZoUYz2QAKfNEOiTCOpek3DSAFqMSByOortChOzHRDkYSSyOAyiMPOpUOA7DLRs MINrWXAjEJ4ZBlOpIRKmCWvjGOoeMXIaUVGtad3HDYVnDICuXZL5BTLcJUSpTWUyYNyhDMYeDMV5DzDb KDQbKBXlZL2LPvSlXYQuVTq3IgHkVLKwKIOskh6YAR ZkMMPpHRD1FeGyHIMoSEFrITjnYYRgZQUiBTL5SVCtOXCnTK2DDgIxOBJyVeX4JrIvLNBhHIKoma4DFB QcJBCwCPU2WhNhTZAfEYBlCWqwYFIgCSPnWZekNMYyHHOqLN5PGdIbIJBoAaT0EsBmFHFhWFVirh4UUI FyYWBfQiqoQIIaMUYqPXRwWDt4asUgkEZfAAh9SK6Z M0OcccVzHctXMf9Kc947ARG4LJXbFp5QM5vbYw7kVHGkRYVNOk0KAYj0OeD8RsteQYO9XNxiL5TfIMVy AYksJoH3BGFeHrwtWvP+TPboLLElQlA5MthoZBUdKnO8HQS3MQCmNAYhLKZrEWP5VL8mZCTZZb6+DQpz aBNmaFhrGNDLNlYrOTJ7XTxgVZFZDm8E ID Date Data Source [id number] 07/13/2020 08:57:00 AM EST [facility] Name Value Range Interpretation Code Description Data Evelin rce(s) Supporting Document(s) Glucose, Fingerstick 190 mg/dl 70-110 Above high normal [facility] The above 1 analytes were performed by [facility] [id number] [place] [id number] [address] ID Date Data Source [id number] 07/13/2020 06:45:00 AM EST [facility] Name Value Range Interpretation Code Description Data Evelin rce(s) Supporting Document(s) Blood Urea Nitrogen 10 mg/dl 7-18 Normal (applies to non-nume kamilah results) [facility] Creatinine 0.86 mg/dl 0.67-1.17 Normal (applies to non-numeric resul ts) [facility] N-Acetylcysteine (NAC) and Metamizole bradley ve the potential to falselydepress Creatinine results. Baseline values before medication adminstration are recommended. Patients undergoing treatment with phenindione will have falselydepressed results. Patients on phenindione therapy should be tested with an alternativeCREA method.Toxic levels of acetaminophen may lead to falsely depressed results forpatient samples. Glomerular Filtration Rate >90.00 mL/min/1.73m2 [facility] GFR Reference Ranges:Normal Function or Mild Renal [...] of Health and the National Kidney[employer]. The [place] method used in calculating this result is traceable to IDMS standards. Glucose 199 mg/dl 70-110 Above high normal [facility] Sulfasalazine has the potential to false ly depress Glucose results. Sulfapyridine has the potential to falsely elevate Glucose results. Baseline values before medication administration are recommended. Calcium 9.2 mg/dl 8.5-10.1 Normal (applies to non-numeric resul ts) [facility] Sodium 137 mEq/L 136-145 Normal (applies to non-numeric resul ts) [facility] Potassium 3.9 mEq/L 3.5-5.1 Normal (applies to non-numeric resul ts) [facility] Chloride 104.0 mEq/L 98.0-107.0 Normal (applies to non-numeric resu lts) [facility] Carbon Dioxide 27.6 mMol/L 21.0-32.0 Normal (applies to non-numeric results) [facility] Anion Gap 9.3 7.0-15.0 Normal (applies to non-numeric resul ts) [facility] The above 10 analytes were performed by [facility] [address],[id number] [id number] ID Date Data Source [id number] 07/13/2020 06:39:00 AM EST [facility] Name Value Range Interpretation Code Description Data Evelin rce(s) Supporting Document(s) WBC 5.44 x1000/ul 4.80-10.00 Normal (applies to non-numeric re sults) [facility] RBC 4.05 x1Mil/ul 4.70-6.10 Below low normal [facility] Hemoglobin 11.9 g/dl 14.0-18.0 Below low normal [facility] Hematocrit 35.8 % 42.0-52.0 Below low normal [facility] MCV 88.4 fL 80.0-94.0 Normal (applies to non-numeric resul ts) [facility] MCH 29.4 pg 27.0-31.0 Normal (applies to non-numeric resul ts) [facility] MCHC 33.2 g/dl 32.2-37.0 Normal (applies to non-numeric resul ts) [facility] RDW 14.9 % 11.5-14.5 Above high normal [facility] Platelet Count 172 x1000/ul 130-400 Normal (applies to non-numeric results) [facility] MPV 9.7 fL 9.4-12.4 Normal (applies to non-numeric resul ts) [facility] Neutrophils 67.3 % 40.0-74.0 Normal (applies to non-numeric resu lts) [facility] Lymphocytes 22.1 % 19.0-48.0 Normal (applies to non-numeric resu lts) [facility] Monocytes 7.0 % 3.4-9.0 Normal (applies to non-numeric resul ts) [facility] Eosinophils 2.8 % 0.0-7.0 Normal (applies to non-numeric resu lts) [facility] Basophils 0.4 % 0.0-2.0 Normal (applies to non-numeric resul ts) [facility] Immature Granulocytes 0.4 % 0.0-0.5 Normal (applies to non-nu meric results) [facility] Nucleated RBCs 0.00 % 0.00-0.20 Normal (applies to non-numeric r esults) [facility] Abs. Neutrophils 3.67 x1000/ul 1.92-8.31 Normal (applies to non-numeric results) [facility] Abs. Lymphocyte 1.20 x1000/ul 1.20-3.70 Normal (applies to non-n umeric results) [facility] Abs. Monocytes 0.38 x1000/ul 0.14-0.97 Normal (applies to non-nu meric results) [facility] Abs. Eosinophils 0.15 x1000/ul 0.00-0.76 Normal (applie s to non-numeric results) [facility] Abs. Basophils 0.02 x1000/ul 0.00-0.22 Normal (applies to non-n umeric results) [facility] Abs. Immature Gran. 0.02 x1000/ul 0.00-0.02 Normal (appl ies to non-numeric results) [facility] Abs. Nucleated RBCs 0.00 x1000/ul 0.00-0.02 Normal (appl ies to non-numeric results) [facility] The above 24 analytes were performed by [facility] [id number] [place] [address],[facility] [id number],[place] [address] ID Date Data Source [id number] 07/12/2020 10:11:35 PM EST [facility] Name Value Range Interpretation Code Description Data Evelin rce(s) Supporting Document(s) Consults [facility] KIBQOd4fThGAIzYj39/SVKtbGNTgg7WbGMicHWj0RKdyMVBvC0XaXAV2uS7qLXV2KNmKRbEfHkHsYnY4 lbm SkKfyFZgKuBXCzStwHCbLaKBcmTfppnPDwOB2KaFB5VYKdB45wAXLzUJKmQ0HpVUO9Kbf+Ss6AZVThkZ NoPC3SBwfG0Q5FenqALH1VIn5GWCrje7x3PXMhwhGRTacPIhblEfLySAAjuZQRUTOE7F+yDSfDQC4Xoq zeHfCwaT+Zvxb24pTN06U0GFxe//tCYNGzWQDr5b/V z1xOrJCm1+c/wZ22KVfqumvDUgcTetTA8iiP3j067C0geShlZIN/6asfuCSnXK5WX6VFROEIjm10MB7K 3e6LJ9TsLY7hkq6Wtdhkw74LkuGZKIwn0NKSGNC/LLOQATuL0dMwM9+neelima/+YLUhcyyxhyR3XIa0vlpor jvQf4lvKezqbLqvRruP3zuQMV52uzxbCvfphBxtc+1 ziO5Lj/uwfF8bRepDctSSdjOuoaePDbXPikRTdbW7UnQwp5ltYXdO/b+uuzeIATWVfGFYuq+xvrx7Rag pAkboGJqvytQ79BsBpGoBgI0VyVkunXDB+gWMrDdarsGmUog3CKbcsigjPF+James/Xu6jCQ0OdgAxYXfaY [file] AgICAgICAgICAgICAgICAgICAgICAgICAgICAgICAg IQGjCHLyVCXcBUQmIEIcRRNrGEEiRCOiEDScLJPjNPFpBE3WFCEoKKRpANFtSHSvGGUlAVZfWWUsSCRi ICAgICAgICAgICAgICAgICAgICAgICAgICAgICAgICAgICAgICAgICAgICAgICAgICAgICAgICAgICAg YZWuFJQhOIHqWEVvNLBgOW0MHDCvUTPxADNcKFUkZI AgICAgICAgICAgICAgICAgICAgICAgICAgICAgICAgICAgICAgICAgICAgICAgICAgICAgICAgICAgIC UjWLGnDEAeVAAyYKZtTTFgBUGiOBTtAHInBC9PEEUhASGbWIGnRAQrSPXhTMBvBADgISRrTDKnFJMkPH AgICAgICAgICAgICAgICAgICAgICAgICAgICAgICAg GPAcBRFlFPElASKbQCNhXBSnUCEdPTCrLTXvMPFaPQGfTOBkQD7UKQYaGISgMVSqEBIcXYUgMYZrMMIs ICAgICAgICAgICAgICAgICAgICAgICAgICAgICAgICAgICAgICAgICAgICAgICAgICAgICAgICAgICAg XMWlJYUlQYXjYJEqTOIrHJDmMR6ECDCvOOGvGDCkTF AgICAgICAgICAgICAgICAgICAgICAgICAgICAgICAgICAgICAgICAgICAgICAgICAgICAgICAgICAgIC UyCBRyDDVxYIMnJDOgRSTxPIIsQJMcQUIiOGLcDQ6HSZZpBOJuVABgVIIqDVHxSBUxCASbBPMnKFUwSK AgICAgICAgICAgICAgICAgICAgICAgICAgICAgICAg OMAnRAKxBLSjHWEdOKPqDGAzCIXwYKRwZSLzNTHtOWHkFTWmZPDrTG9ACDBjSKXfWISkFPJoDULvEVHc ICAgICAgICAgICAgICAgICAgICAgICAgICAgICAgICAgICAgICAgICAgICAgICAgICAgICAgICAgICAg EBRxHUImNJIxSCUnKDZwXVMfAEXjWV6GZMRsKQKbFI AgICAgICAgICAgICAgICAgICAgICAgICAgICAgICAgICAgICAgICAgICAgICAgICAgICAgICAgICAgIC BjKQMrTGRlHNLmSAJiIQOrCOIdNLZhTPTcIBDmCTSsGH1VMNVbJAVmZGKhHVWqCTIhQREdDVHeNNEyQH AgICAgICAgICAgICAgICAgICAgICAgICAgICAgICAg PYNiMBStPQUhZTHmXBMbCEBqGAZqECGyBTSxNDGmEORkVHToTFPwLZGvLJ7OVT30qISxl8A6HJDcPN6v dyc/He4LJYnjuxPzgZWfMH0RXeCrTI9drn5CHvZmCH4pyp5JIEcYGwVzI4M8lETpUJKyAUSUIhGzX26z DSmnHb89CFrmMAUhDkRjKTw1Km5MIsRhI3faSFWhUz A9SQVkLmK1MBHeFcD0XHJdNpCzBRMiZWWlXPHsIBTLJY1KGuCpD6VeoT31HOCIXx4+DQplbmRvYmoNCj M1RLQty1HqBHq1ZB7MJPBiDjbus0RaPEHlUDZSZQvfRV3IFHE1YIEdBGOxHm2PCPWiM383wsOaDJ9KGn 8QGiUtVQ3wdi6EPZFkBYXtSckCVct2CUkcFV7RlLCc IHrOf56sfYx4foFggUIUEUCrjPGkxKBVEY0bz4SgkjS7TWwhZJDxQOIrXe4cTv8dJLKpPPXzRyD4WYKC PL3OFLNeOPJuwJCtSCCfENULPS0HCAfvWLU6SvipnfDcwYBeGUzrTL4WQGNvpwMtYmirPWPSDSb+Pg0K ZP5kq2MgDIj5MRNuVQ9aum5YQRgXVnFjP3P9tVGxF5 K7SNnnQe1BTANwLKZtTmkeNYPWKCvdXD5GHV3miaN2EH4SyZCkILTiPSKrkMFdUYi6W15vzCKwUOsrEY 0KICA+Yadira+Sz0RGYFrTGObEJYkHyUnZIWZWzZsL2LpF0SFa6McY1TpUU25wMbklrNmGLadSC2ZJG3fTX KuJVCWPF7KkSEuqO0isvYiDSYfGLVPKbTpX76nwLLo UDXgRQV4DPAmMn1RIDQsH2LobcDzqYseqiFjORUjSTMLVG4XGAmxwkPkqJQkbVkiQR30bTviIN5NYu1E NcXlNM1upz3IpIVhYg8AENI8Al1PTNQrNIMjHHHdUXC3VOJeNeKyVZljZNDdWJFuIKL6UZUoTGHiLK5H TfYlHDTrNER8IpLaAAJiDLMavw2VBTOvWDQ8CpKlYf OiFVWdLQEqJWrnJEUjSRAdAND7VFKcYJVaHS4PAeTrNSDsNSBhZWQiOIPnUGYuyr1JHMIbNLNzIFJuMT GqVWArGVGbCLzmTJNfNGD5QJK1KFNjQNOgUW4ZWfBzKAKmODp4IFHkWKEjAAEzya9XVWNkVTDpMJV7FG VeTKPlGJUbVGxjGRGlMXHgYuh4INHdGXAiWO3VJkRu IWCzXKM7BrgxCHNtBZNxfp6ITNNwQODbEUl9AKIyERSfTJZbAJguZGBqOAQ9YtC0CDZyHBXqSZ6UAhPu VUJpBGM9WVDnPDVmYAWuyk1NIGDrSCChIxv9LtFeNSItCMJhMThcXVRlNJP3QQb5GARsBNQjWA8WIeTy PVNqMAqhYyFoDGNcFBLvaz0DNEXaBXBvDALxGmBrOE SwUIMnWOlcBIXrVUW5AUPvYATpZCZqAW8MIvGvADGeZCg1TPIqUEKmSYWmrf8QKLIyNXEkNJS5RrVyLC NjQOLzUUqwIMQyWXNhGpd9LMMtPDBgLQ9HSfGqKLEuBmZ9ZeOeEXJkYKHgte3CNKEyUNEaQGqrAbIoCR ZuOMZrAOeoLTBbHIJzHEC3VHLpAGPaEV9YLgQzBFKu AhGmUdjzKFObGZRuab4DQTTsMGQeClJ9QdQiOQJeOKFgMYhyMLYdILKuWNe8ILZrMEGmJC9MJtRlWUEq NaG7LxKaDFKcOSEmxw5QBDHkLVH3KwU5DTUfMJEbDQHvLEgnFSKhKGF6UIB5PHVpKVOfVU2KYdXeYMBf YNyxWGInZXPaMRVjqi4CXESwREG4CMkjFhQcNLGjAK IuEBfuUKVoMMR8QQu2JCMaPCLjGA3XGtLxEUNiYDBkVoOzYWYhGBSvqg0XNZYdDIA8ZTRbJIOtTINxGE LfFTpkERIkDPHwIqi4SZFwWCJfQS8HMrLgLRQrJFI1EhXyALXoTHDgvl2WXQXxWRQ2YoLbUuFpUYFuYR LeKVsoWAZyOQFjFsu0FIZgPMFyZH4SHjIbVHMuDYZ9 HXuaDFAfNMOywp9SsSFupJgird7FLXwNIh4MqHmlVOGkDDajRu9qyBV5TGVdOEXMIj8FisDyIOWzXLTP ADkqGRSmNMevRPX4CqmwBOEtNKHkWTU1Zxz7EeOrZBbdGKCgFSE1MeF1IMVrDYJhI6J2FqN0FJK9IXs6 IeJpBUKgFCS5ORRuHUf+EB9yQQo+Ff7Gp9HcaqL8ngPsLRi0Aav9GE1SUIIJV6NNZh== ID Date Data Source [id number] 07/12/2020 09:36:00 PM [facility] Name Value Range Interpretation Code Description Data Evelin rce(s) Supporting Document(s) Glucose, Fingerstick 176 mg/dl 70-110 Above high normal [facility] The above 1 analytes were performed by [facility] [id number] [place] [address], ,[place] [address] ID Date Data Source [id number] 07/12/2020 08:49:36 PM [facility] TTE Report:Indication: syncope, reported hx [...] to be chordal GÓMEZ but no leaflet GÓMEZ.RA pressure: unable to assessPericardial effusion: noneConclusion:Severe concentric [...] rce(s) Supporting Document(s) ID Date Data Source [id number] 07/12/2020 05:38:44 PM EST [facility] Name Value Range Interpretation Code Description Data Evelin rce(s) Supporting Document(s) Medical Student [facility] MAEKEd8fTlUZNhUf75/HMVezWNKia5LoEOemZFz2ZMcjLJDjR0SkBJU2bW4jTDD1NCuJRxOzXsUpZzF7 lbm [file] ICAgICAgICAgICAgICAgICAgICAgICAgICAgICAgICAgICAgICAgICAgICAgICAgICAgICAgICAgICAg ICAgICAgICAgICANCiAgICAgICAgICAgICAgICAgIC AgICAgICAgICAgICAgICAgICAgICAgICAgICAgICAgICAgICAgICAgICAgICAgICAgICAgICAgICAgIC AgICAgICAgICAgICAgICAgICAgICANCiAgICAgICAgICAgICAgICAgICAgICAgICAgICAgICAgICAgIC AgICAgICAgICAgICAgICAgICAgICAgICAgICAgICAg ICAgICAgICAgICAgICAgICAgICAgICAgICAgICAgICANCiAgICAgICAgICAgICAgICAgICAgICAgICAg ICAgICAgICAgICAgICAgICAgICAgICAgICAgICAgICAgICAgICAgICAgICAgICAgICAgICAgICAgICAg ICAgICAgICAgICAgICANCiAgICAgICAgICAgICAgIC AgICAgICAgICAgICAgICAgICAgICAgICAgICAgICAgICAgICAgICAgICAgICAgICAgICAgICAgICAgIC AgICAgICAgICAgICAgICAgICAgICAgICANCiAgICAgICAgICAgICAgICAgICAgICAgICAgICAgICAgIC AgICAgICAgICAgICAgICAgICAgICAgICAgICAgICAg ICAgICAgICAgICAgICAgICAgICAgICAgICAgICAgICAgICANCiAgICAgICAgICAgICAgICAgICAgICAg ICAgICAgICAgICAgICAgICAgICAgICAgICAgICAgICAgICAgICAgICAgICAgICAgICAgICAgICAgICAg ICAgICAgICAgICAgICAgICANCiAgICAgICAgICAgIC AgICAgICAgICAgICAgICAgICAgICAgICAgICAgICAgICAgICAgICAgICAgICAgICAgICAgICAgICAgIC AgICAgICAgICAgICAgICAgICAgICAgICAgICANCiAgICAgICAgICAgICAgICAgICAgICAgICAgICAgIC AgICAgICAgICAgICAgICAgICAgICAgICAgICAgICAg ICAgICAgICAgICAgICAgICAgICAgICAgICAgICAgICAgICAgICANCiAgICAgICAgICAgICAgICAgICAg ICAgICAgICAgICAgICAgICAgICAgICAgICAgICAgICAgICAgICAgICAgICAgICAgICAgICAgICAgICAg ICAgICAgICAgICAgICAgICAgICANCjw/mLFoV1ekgE WdldA1V2ydPf6YOw8HOF4oj7GiSNLnAJnpahZjLncSYhZrMSZbUgyJDao9TBgrWF9BtIXrK8EoO2LqAB saQK8UUGDeYIKyhBEtQJRqAENuGcK5FPXiBPtcZN2KyAXuTPnbIRBiOBHzEtVvWVVqPCHrVZFdIIVzAA ASNQSdIRNiNpRlPVrbGH2Ul1NpfEN4UPd+Uc7UAF9n y8BgSGktXXViIV4hsx0FUEkSPcCgE7CydrO8ZCFcKBVbTa7SQLHnZRUssSV8LJHhMABIOqWlK1UvnU77 IDENCj4+COmrgoKkZtqPApBgOGFsr4BwTBt8HX7QEEQqBPt6hQPuUUOczSMzoWHNeMTbRP80YTV0EXE8 srPchDDAQIykkk0nnJhyczQiqYHaWhM4IqUmCoOqYY I5UdOkFX3oZGjoFK2KXSU7OEcxFQGvJWRuY7eOMoJiTHubRYNfdMhxCN5DXcBrW1RkrvXbyQNnCPReVG INCj4+QWohnkXuPqpHZpOmCZLta1DgPFw1JU4NIVYqEXovRG1JWNBqmG2jPIlrYE3VIfAzUnGnXLXOWw OaH89imBAvTJn4A4BiMxOoYOLlLwobSXIxQUzmGuOf ZXMgWyBdDQogID4+ID4+EXpuLD6NITxcpkWiMRZoKw7ZNLWdPCTqNG7cVAKvWYXeB5Q9eZlwCJKSAaTi P8mdhylwQZ5oBMWdA014xUibpyZzQVZ2ALZcLs6OEOMrSCT6EOWrbWOkGupqRKWNMQmmSM5BnXMkLXG0 cP9zYXwfLVHsUYXoL5zGJvOrqFvdLD96lGvtyfHztU BdDQo+Ma0RDA3ab5YoSAt3opBgJDvsLLGvIMweCQDaCHWgHYRgTED3PIO6BSXEUePtTRWyRIAtBVdpDR WqLRGxai2NREPsDQGdPRMvLpZkOBHjPWQyZHnjMPDhJIKzFRzyBCQbECGoGL9BSsPoDUYhGASsFAxkFI PiZNCrmb9FRGSyBLCjJaJ6EnErHQIuLSTyCRjaLWJc GYPfNRMxREUoWZSlRR9HDfJuETUlBJUtWcYlRYTtCSBvuy6MKCSiBAIgWgE8KBJwDKSrHIFsTYdvPEZb PVR7AUB2CUZhZRMfRL1IQgZvYGRzNIynYjAiXDVuIBYubk3FXHMoAMZxHvjdSVErEMUdNUUdBVnkRBFv PFJxBWMrPYMzKUQrJQ8FRjQbWAHqXUNmRSXoOYHvXL Wvmh0MJTFhZGDzHGYhVTQxQZYxFIAqIVqjJJEuLCA3VjW6KMHfLIAhVY2AUmWxGUGrKQW7GkXeDFZrUR Aqdg3XXAUjDYXaIeb4ZKSmFANjNBZnPGxdPBRnQAB2JpN4OOTtRONqMV4QKhOkCBKsXVd2QYJsUWBoXK Egap4OXIJbELTbRER5BQXfYQQeQFOxLAmfTWCeJYV0 OVB0DXAiPTWhMK1OXdRxFBQzYYvjCIhbXTVfFVLgzx0UPBEcOEOkDXG4SsFrLFWiMDDkBYyqCFJkHXLc NGHxKMGhLUBpZE3SMvQiQFLeCmM0FPVnINVdOHOjvt4GLYTjUBQmVJz2SkWtGIHaARJeHRdbQROaMEWw MyZ1MLXhARCfCQ1ZBfRmCQLbMtV1RURnBORsHLQmhi 0VIIJsQQLyHlD4SgCmLVKvGCQvCEkxCXUzEJFiWAErVNRaNHLsRQ6VQmHbYPVkEhXvKUYeODVaLTKffg 4VQDXkKJVbQtMuAdJmBWOsLCGqFWalCCQzZYA9SzL6HNMdVMLlUV0FPhFfEJOqFwk0BTQjNJZkUWRazq 2EJPPpRMTkCLz5HXTqVHHgIDCpMAgdFSBoLHE6HZI3 NFFiGFIkGV9YZoEbMQIvBctcGZMwCQRsDYMvrl2JRZIuJXNkENf4RCEjKJBkNTLzPBvbOACkWHSqHyH7 TRVaMGXjRO4FBwUiIGQvSdRaUGLzAMMcXANlov5WADFjMOWoWFFfGSVpNLSlUTAkGNb0baTseSLbYZy6 UO4NX1UekfRfNKBXNp5Qp045JCLqAWVxMp1KJ1xdVv 8sGMVqDBBDZu4QEQe3TPA7V7D6BhO2Z1Y2MbUjEDKzZzC9EyXjYKZpHJM6YdX+RHh1AwqoERp3DLv0WK xoKHX3W6D7GFTlXVJdKRX0XFGiQG1dGRTOGn8+NZzcdSBgpBkgYZRDPeYtNfo6PIgyPQGHVm4R ID Date Data Source [id number] 07/12/2020 05:17:00 PM [facility] Name Value Range Interpretation Code Description Data Evelin rce(s) Supporting Document(s) Glucose, Fingerstick 215 mg/dl 70-110 Above high normal [facility] The above 1 analytes were performed by Lucy [facility] [id number] [place] [id number] [address] ID Date Data Source [id number] 07/12/2020 05:09:12 PM [facility] Patient: JAGJIT IBARRA : 1960 MR N: [id number] [facility]: [facility] CAROTID DOPPLER BILATERAL Provider: MICHELLE [...] rce(s) Supporting Document(s) ID Date Data Source [id number] 07/12/2020 04:35:07 PM [facility] Name Value Range Interpretation Code Description Data Evelin rce(s) Supporting Document(s) Consults [facility] ARCOMc4gHjJFFtJs50/VWHlkNJCza4IkFJwxLSi4JRduYERwK6IkZIK7yK3lMKB3JGtJMlXxZuFtAkH6 lbm OsSbkXQeOkXALiHoeQFeTiYVuyHwuseRMkZX5CcNN6LQWqQ65hMRXkRQNaA1EdCMJ1Hmv+Sc7VSEHwiS HlRP9WQjyG4U6prbz0Db1ikw9NTMIUqgxYroz3hhgJY3igtPQ46XbUnnOMEfAFeJ4nKvu0pU00t6oYUU 0EH0+CEP0AeqIalKYJA/gBYyT0qkstr0MqAMGKnkB/ I22ZvCAkkgga/7EGigN6J6k7UfdYQ2gbwNfae/oFBP90fB0ESAjMy+LrbigLz0PQqTW4DRDWnsIAk3y4 8ybk/GVsu/ltGfkB+B2QOOzQxXuu0pg6PEvdXcJ8moOKy3h4L6Ypwq/CHS4x5oTm02kax5EkihOdioZ9 31yozyqpvriIXoC7jHodVr+fFkrj5SaMw574z6w13m iOPZVNQH++pDjou5CWgjBJnABOVP73p+l1jraI1LXYrtQhImKXDTIgCscJdDQipHKqbjDBh3Pfhp0OHy dNPaFAeQXrUfjO0VM1yEnNBbXUsJ08g+Q2PR8f+cdY3PfAED1MVismjOWlnTH8TnWIbI+1gsZxXluBuE lnAtC9r0dK0KmtQPdAFqEqy4gfN4ZfpmuP+L5Dw1fz gXnxaLOLS/OyXAE/hMiplyHoa1L/NcbFFc3bpgvjvjlSNRHAoJD+2dVf60HK8ry/In7If7clE/v3X8zR 951Fe7MsrdTldl2/nGTCTWSNfSwO25Ae5/Z13VW1MdQd3iVOR+JRkHzC0efmXZ7bK9cDBsaU7Sq1L1sG 66YM1rQw47YI5+522l84wfdAz7sO18ITvsZyDl1hnk G6+JfspdHG+yvpYPl67RDclZmcJkcBcegY1+7Jc1Pa0IIjMfvvz1BTfN+I33gJffch9oV0a/yMebuyLG +/1ovHB8mX0JV8YBgElgxa8IHWeBi2C9qPjSzcfLp2IFcw0EwYUwx9kR4pGGGeuNF2a47z2pHSLZfWr8 Nithin+yNl8qvSthHWGzPaWi+EBB4UcPGzDDfgUnW32tmM [file] ICAgICAgICAgICAgICAgICAgICAgICAgICAgICAgICAgICAgICAgICAgICAgICAgICAgICAgICAgICAg ICAgICAgICAgICAgICAgICAgICAgICAgICAgICANCi AgICAgICAgICAgICAgICAgICAgICAgICAgICAgICAgICAgICAgICAgICAgICAgICAgICAgICAgICAgIC AgICAgICAgICAgICAgICAgICAgICAgICAgICAgICAgICAgICAgICANCiAgICAgICAgICAgICAgICAgIC AgICAgICAgICAgICAgICAgICAgICAgICAgICAgICAg ICAgICAgICAgICAgICAgICAgICAgICAgICAgICAgICAgICAgICAgICAgICAgICAgICANCiAgICAgICAg ICAgICAgICAgICAgICAgICAgICAgICAgICAgICAgICAgICAgICAgICAgICAgICAgICAgICAgICAgICAg ICAgICAgICAgICAgICAgICAgICAgICAgICAgICAgIC ANCiAgICAgICAgICAgICAgICAgICAgICAgICAgICAgICAgICAgICAgICAgICAgICAgICAgICAgICAgIC AgICAgICAgICAgICAgICAgICAgICAgICAgICAgICAgICAgICAgICAgICANCiAgICAgICAgICAgICAgIC AgICAgICAgICAgICAgICAgICAgICAgICAgICAgICAg ICAgICAgICAgICAgICAgICAgICAgICAgICAgICAgICAgICAgICAgICAgICAgICAgICAgICANCiAgICAg ICAgICAgICAgICAgICAgICAgICAgICAgICAgICAgICAgICAgICAgICAgICAgICAgICAgICAgICAgICAg ICAgICAgICAgICAgICAgICAgICAgICAgICAgICAgIC AgICANCiAgICAgICAgICAgICAgICAgICAgICAgICAgICAgICAgICAgICAgICAgICAgICAgICAgICAgIC AgICAgICAgICAgICAgICAgICAgICAgICAgICAgICAgICAgICAgICAgICAgICANCiAgICAgICAgICAgIC AgICAgICAgICAgICAgICAgICAgICAgICAgICAgICAg ICAgICAgICAgICAgICAgICAgICAgICAgICAgICAgICAgICAgICAgICAgICAgICAgICAgICAgICANCiAg ICAgICAgICAgICAgICAgICAgICAgICAgICAgICAgICAgICAgICAgICAgICAgICAgICAgICAgICAgICAg ICAgICAgICAgICAgICAgICAgICAgICAgICAgICAgIC AgICAgICANCjw/hMHqA9plpGNmkvL8Q0hjBc9CSu4MTI1gc5LyWYXtSMwbahIzLlkKUxLfPZXvQiyJPq l8ISrrRS4RgZHaX2EzB9NnHBhyQV6FFEMyZGMofAScALGcPOIxWfV8EJUgPDokBF3XuCYsGDgfIHQyIK IgNyAwIFIgOSAwIFIgMTEgMCBSIDEzIDAgUiBdDQog RP3Oy3LgvIE0GXv+Ty6HXJ2sy7WvVWnfBWAdZG9pfk8UJOyLOkYbD9AdloX5NRFqHRSnMx5WEYRoEGPl pXB3SXHiJYUDBoZwF2XwzO59YYVWWu5+SKwjyjAhRbeKTxRrBSXzz6VkREs1EC7MGPEgQOw5sMUmH80g z8IahJFsHldlWStghqIYRRQhu99ySGadQTUkAZRcYt 1cBw1xQJSjZSRsDaDyYIWDXO2WGTCgWYXheNItXDVkSPDOWM5PQKrcQGI5DoyuvxPzlRBlSMdeGO0KRV JlbnQgMzkgMCBSDQo+Jo6NNM8fh8ZtCWv3ELSlGB7pyi2ZKCpXAdXuJ8T4uXIvM0Q2XVsfPv6FMVQtDS JuHgmcOVCDMAkwDM1YTI9xniU5MR0RcGDqIASdLVWi jCBaICe2I08grFZjHWmpCP5SGKT+Yadira+Qp3OONKoGMHbPYPcTnOlRQYFOmQaZ8HiS6TQl7IgB9TsEH65 gItglaTfEOdtCS0RGV6uYXWwSSRCAC5FpHNsbV9qzpAfLLPzRISJEmJwR92elVZcZLEqXUC4JSCuSl9V PYWiE9IdtvHhjGcuivGxKGTjCCBTJK4UFAfypbGltE HhsRboUN30oZukMB5PEe5GNlCeIQ0gra7QoXUmOp8NQVF0Re0TUADrEHQnNIDhINX8GXRlBhClVCfwLK XhHRDgQZF2FNYbGZXnBI7CEaGzXGTpNvK3NRzcGJFuILBqqd5UTYZiEQTgTBO4SVCcZLTvZVRyIDjlKG GdNYEwNIU4LAQxZZNoIX0LQcAcIQVwYDUdZICzZWNo PEEjdz4DHCDoLXBeVYBxTRYvFYBbOSNzYEgcNEWhIMS2UrO5ESPrFMXqPJ3JLeMkARPkIDh4WyOaUZEi BGHkrf3TYZMxUDMrVTFaBXSyFKYzWULlGTbrQDYuKRFbJxM0MTAoKFVhRS8CScTuJZEcZLN0ADgzDNWz WZPeyb3BACSnMPIhFWU8CyMuTKNjRPDvQWtiVQVzZK E3HZS9THFqOSDhCF4DVyCoGHCtWYUdRlPrZINbXBQwbz9YINMwAVHvQsMcTfKcTHChLHKpXWbzVTOlXW M7SOF7REKnGZEqIC9INnAiFEJzKRL2VnLsNZPxGSXslv7LLURpAQSkMgY9QwGdCUQqXGHpECuhUATvZC O1PYyhACYwEHPvEZ1TPdAkQZEzYDmmWgDkSYBdFUWi vs0LEQYkRWYaYVQcCkBcWJUsHGJuVQawHMViSSYyTkQ2QTWoGJAdBV8JJjUrFTSyNiS8XbyaNNDhFNZw kn2SJAWgLITzHAE6TsJyOPHrYKLuFFqxGEImCXGkWuHzYKKgTQGkLH6YRdTqFMArUxJcExNyNVPfABLk gb3ONVOzYYTfNyG6EdWyTVBmSWOkFXmjNMIfSNQzFg P6KQQlKXUxUQ0QIjOlDMDbOqX8QqqlRPVlAHOrat3IJPAlTCTaGoa9VlXvNRYwHXFzPTpfFQIsTCWySZ G1KVTyZFKyNS5VMzQeVNLdGvQ2XebxDKEqRDZrqn7IHMQyPJZzMDM2FjOuKVOrFXEhZOyrJOIeANS1Bd EkZSOiIKZmMQ4RWlTtYUShZsRaRSZxHVXzWXCtid6R ZJLnBQXqFwS6KEChHGHtVJSmZTguQLKgPNM5BKj6MNHbAXTjTN2FFrXaKQUeGhxqLYPfAFQaSGOhvb1F DTZjZGKiSHBqYPWwQLNrZRSeNIasVCWuIBP6AEo2XMAhBERbVT0SYjEvEVJzBxu9AXaoHOQhBRZfbn2A mFIwfTxcnb9EOWhKUz5KcErqTPDzAExjWk4inPN9EH GdZJULSp2NmiRoTJYhTDWEHIjsBPJnWOG2KaH6OQLdHkK4MVVvNjMhJ5WfLUCeTVBzAwQ2SZZhVkP2In epKXh3MOMwJWLxGPY7HsC5UZB7IHTiCYX2PGojHyF+HX8lEAl+Oh5Ke6JgghV4xbXaYHanJMh7OO7XBQ EKO4FXRg== ID Date Data Source [id number] 07/12/2020 02:55:47 PM EST [facility] Name Value Range Interpretation Code Description Data Evelin rce(s) Supporting Document(s) Progress Notes [facility] GVOGMi5pGwJPDuPg24/JQHzbJBJur8ZrNTfjGLx1MRwbYTTwW4GaZHU0dF2tBAW0TCcRQyQzGhSjSoR5 lbm [file] AkNJX9YuGiTBK2EoPaUD9TZs1CDlT4GFJ3mWGfOw0QBtU8HKvHHuFcUT9DEDy= ID Date Data Source [id number] 07/12/2020 02:39:49 PM EST [facility] Name Value Range Interpretation Code Description Data Evelin rce(s) Supporting Document(s) Consults [facility] TMLLLo9iXbLOXlZd60/CTHckMDOko1WlUZnxHJd1JMusJMZcD3UdDAU9fW7xZVY0NFfHSzFsZrEtUqL7 lbm VuUezONiZbKVQcTbfKNpOjEHxaAhcshTZpBL9BeCA1LGGcM83jQVVfKISqS7UtCHJ1Gfo+Op3GWBFffK CuYO8YRbzD4S4UymUCEtMtT9U/zD98AxBto/vCjAiFtyWDxPHEx5URoIYHhvHAK25J0+wSQjxqP0D9jq YShmO09pIyGPRTqQQonht1gq7wo0yJDYRMjeC/n/9Z VN69/eD++xm78Mt6x149/6NdtFUxvIHWY4w+M4m/AWBGKXBB8G/aK4nsjkrx+WhEewjvn7yBxnrNqSIt M63zev0q38cVNFQ/P3d2xvI9YDa2meeuQ9FMowcDdjfC4Afonh8x/OiO/+4iGQ8UpSpj6E1h9+ZMNud1 H42h4yL1nvqaCouiSikjxfQ05wyqp+R2f9Qjfgp2Rj [file] ID Date Data Source [id number] 07/12/2020 02:12:33 PM EST [facility] Name Value Range Interpretation Code Description Data Evelin rce(s) Supporting Document(s) Consults [facility] ZRLKFc5xJqZMYgRc00/OCVosHUPyb3QpIVjkSUa0DObdVAPbC0ZqANK1tU2nNKS4FWhMGlKgFkClNtG9 lbm [file] Tc9Au2IolnK0ysKpQKfoZtA2Xc9FKHYOQ2CGIb== ID Date Data Source [id number] 07/12/2020 01:24:07 PM EST [facility] Name Value Range Interpretation Code Description Data Evelin rce(s) Supporting Document(s) Care Plan [facility] JKUMBc4uOaVTWkXk96/XACsfAIVsj0SuYGslLJj9PUnwIGCzL1PqTZD8yQ8pITY0WIwPOwQhKaOjXqV3 lbm [file] QqH8MTB7lGJuCx7JYtH1ACQUPoIbNG7KDOm= ID Date Data Source [id number] 07/12/2020 01:17:04 PM EST [facility] Name Value Range Interpretation Code Description Data Evelin rce(s) Supporting Document(s) Care Plan [facility] TEJRIm2qOzTSFxHi96/NMOxmIREla6JaLDrhELe3JOyqBURdO5PrLHS5lU4rXTU8GZqEJxPvLvLvAxH5 lbm [file] AgICAgICAgICAgICAgICAgICAgICAgICAgICAgICAg LLXtNAFaSHXeBPYyELKoIWOfLMRaYXCzLGWtYSDfABEvTIKnICIfEJBpYYPxIJAmFD3SSMZzQZGcOUDq ICAgICAgICAgICAgICAgICAgICAgICAgICAgICAgICAgICAgICAgICAgICAgICAgICAgICAgICAgICAg ICAgICAgICAgICAgICAgICAgICAgICAgICAgICAgIA 0KICAgICAgICAgICAgICAgICAgICAgICAgICAgICAgICAgICAgICAgICAgICAgICAgICAgICAgICAgIC AsOSGoAGNyIRNtRBCmYLTuQKJrFVXeJZAxKGHsRSVzHXUwLHMuCYOjAK1CXUOnAMGeFOPlERVyBAIyZE AgICAgICAgICAgICAgICAgICAgICAgICAgICAgICAg RCCxMAQkQUTrKUEcUZWzMYBoWVYdWJKgEJXzXWObBMSoPTTnNPFvQLSoIDFgGVImPJWsXO9KUDMpQTJh ICAgICAgICAgICAgICAgICAgICAgICAgICAgICAgICAgICAgICAgICAgICAgICAgICAgICAgICAgICAg ICAgICAgICAgICAgICAgICAgICAgICAgICAgICAgIC CqYW1XUUZrFCWyXJKjQGNpYLBdEKMvMFIuAZUvEJCaDLPaFXFfJLSwXIUgLGWqVHXmXLLpAYFlDWRsCO MrMLZnXSJmTOCcAUPgUYInUGIfIMKkWXMcWFUdANKaUIQkHLGwNZZvRSWoXN9ZKFXxTBIeXKNlIDXxFF AgICAgICAgICAgICAgICAgICAgICAgICAgICAgICAg AOEpBDGwRJJtLCAwSDWuOHAkZEFyRKFbNLIjONLlLCOcXWWcXLOkTXPbHCYhPJLjVBKwSQFtFY4OZXMk ICAgICAgICAgICAgICAgICAgICAgICAgICAgICAgICAgICAgICAgICAgICAgICAgICAgICAgICAgICAg ICAgICAgICAgICAgICAgICAgICAgICAgICAgICAgIC GyFNPoFG6UTYXcCMNmDKQvSFIsYIEvUBHhUGUxRNYcIWHaJFMxRQJrQWWuVPHwRZUdVFXkYWDgTAEvBJ AlNROiGGCaAPQuLLDvBUWpEUAwKGImOKGqZAJvXMMnNDKmWDUiMIMkSWXxBOZmUB9YNFLnBXJtOPXlEJ AgICAgICAgICAgICAgICAgICAgICAgICAgICAgICAg ZWZxVMMrGEBhYLHmLEZfAAHiNXDpPXVnYJXiLZIjDDSvFPSeWNHhVPHiHTTbBFNhEMAhPIJwMEYbRW2H YG29qSYdo2P1QIObVD6oqqr/Rj0NQOkltxOryOIgUV2YQqVqTQ5wva0LIfNfXC4ibd5FEYeFErCeX9I8 aVSpWZUaMLKOAzThQ40kOZawEd95OOqiCVYrDdHtBJ x7Qw0GPwCqC5pjXCZnVoL8TIYhGjRvVJvkLU6Rc1FdkFSiTFm+Ex3CWF2qt6KkPGzuDCCdKP1syh3DBZ yQMjGrU7TvkgJ7BRU2HFVhDa4BPLMrOOLpuTXqZuWgPKWKJsWeJ1BwcP16NCWXNd4+DQplbmRvYmoNCj A4GUMzp3MwFEx3ID8CATRtYGx1fROqJ3OxIELVpYBa AVX3GK3sbmhbg0VyFYBjvT1gNZquSNgpPGUqXCIgHv9iLt0aEMErCXEnCpAqIOTXLH8GNZKkFDLksAQn TELmJCGQSP6KFJwmAND7QoirqgMntNNgDPpvQY7ANBNdfcPuDaIzRVTSVQo+Vk4VHS6bu1FdVEfcLrUw IE0plt4WNUfUBkMkE2J3qCLpY6F1TYbkAc2RYUGgNU DlWkJgBWFLIMkwWL7XPD4jlgV5CC0ZxOBhXYXlOGMkeXDlXVg4H17twNKeXMgdHM9ECWZ+Yadira+Pg0KIC ExLBNyFAFtCnRcRCZUGoWoW3QrF7GXf4FoC2SjMV44dRkmekCnWZhvNP9HMP7kUXCjATQWPY8PjPXbqQ 8asoVgJPZiAJRSMsNwZ00hwIMrDSTfNXG0RPVfHb0K GJMhU6YfhvBufMhvzpMjCAGiPDYBXT2KFQetawBqiZJsoYnfAY53oHbiAU9OKg6RMxYqGA9wao3AoUWk Jc6WJNDzBA0NJDGnBDGuXPVqSFM1RNPmNqFoPUooVYKtTMUwFWH9PNVhSPUbCS2DWvZnAFZrKoErUzqz PUCbZOUlem8PRALrJOMiDEpgKUNbGSCbDBMpKYezUU IgWJXgLDQ9ZAFiWBLuWN2FHoYqBBOsTLSiWhNiIPOpJTBocl8HRMWfHEMsQEA3MMTeJYJuFAIvWDgdQB EkONTlWXE5WLHjYBZiZS3FNoXgDZReRIH3IpepGSWkJOKccs0RNAXfCPGyIvbcBfHcGSEqLRHhJMtnIW CuICYyFYduVXJzVIAcUZ2AAmQuZZXzQSImMqvlLPJq VYHsey9PUVOrFPBgCNP0NOYiJSRgYSSjQYkhSEEgOKT8DnH6OQKqLWAjOG0NOvVdHONaWKI3VfMjYOOq IXZije1QDPHhMJCmYmRoYEMbTIMtNTThKAkbVRHjXKM6Ais6OQHaCBNwLG5MVaPsYWDwMWw9HbGpJZWl BWFabu9ZLJGvBMObQUU8QgYfTUVwYFJyFUixCYHhOY V0AzLtCVTxPGZiEV5XIiJmEMNdUHg6UHOfRCMsMTMqfn6YYXOtRUUhLSk4VNFvQJAyBGCiSCnuVHJeVU B3ODkxMUPzOPKsDV0VQqYaTUZlSpIpLOKeCFGjXMVmbn1GKSEfFPPdVBF7VNToZAKtVRQdDQawTPEdLK TjMUU4QONgFJUfSM7IPuEwUDNuVjVtPPobOPPmOCJb cb3XTVHoCGUwBkKaLXPyOLZfAKQkOEy0keKkjMCjXNx0LO2YL1ZysmRmYjxSZh1Gb579KFF1WSHqJo4S U7quBl6bZBKsVZTPFi2SGCn5VqhtTXNdQfWzXwr7DBe4LXR0X4Q8EOGbWRLaWkFrOrN+SRm0ZBQeKOA4 OQCcHMG6IKq9WdihULC7Y7VcKjIcCmNdAF8fPJMLIc0+HLpwePQoiJklHKGYHbGvLFl1BHxyVIOTNf3G ID Date Data Source [id number] 07/12/2020 12:40:00 PM [facility] Name Value Range Interpretation Code Description Data Evelin rce(s) Supporting Document(s) Glucose, Fingerstick 279 mg/dl 70-110 Above high normal [facility] The above 1 analytes were performed by [facility] [id number] [place] [address], ,[place] [address] ID Date Data Source [id number] 07/12/2020 08:29:04 AM [facility] Patient: JAGJIT IBARRA : 1960 MR N: [id number] [facility] Provider: EDIE [...] rce(s) Supporting Document(s) ID Date Data Source [id number] 07/12/2020 07:33:00 AM EST [facility] Name Value Range Interpretation Code Description Data Evelin rce(s) Supporting Document(s) Glucose, Fingerstick 229 mg/dl 70-110 Above high normal [facility] The above 1 analytes were performed by [facility] [address],[facility]#: [id number],[place] [address] ID Date Data Source [id number] 07/12/2020 04:41:01 AM EST [facility] Name Value Range Interpretation Code Description Data Evelin rce(s) Supporting Document(s) H&P [facility] CHQKVi1sWvILQdUd46/EHKkjYEMqi4KzNAfcDGo5XJuvJYLvW1ShLWE4hY9rVLS2EGrYGxKuCnEjHbB0 lbm [file] ID Date Data Source [id number] 07/13/2020 12:51:00 AM EST [facility] Name Value Range Interpretation Code Description Data Evelin rce(s) Supporting Document(s) Procalcitonin <0.05 ng/ml 0.00-0.50 Normal (applies to non-numeric r esults) [facility] PCT Concentration: <= 0.5 ng/mLInterpre tation: Systemic [...] shockThe above 1 analytes were performed by [facility] [id number] [place] [address], ,[place] [address] ID Date Data Source [id number] 07/13/2020 12:21:00 AM EST [facility] Name Value Range Interpretation Code Description Data Evelin rce(s) Supporting Document(s) NTproBNP 161 pg/ml 0-125 Above high normal [facility] Acute CHF unlikely if NTproBNP:<125 pg/m L for age <75 years<450 pg/mL for age > or = 75 yearsCHF likely if NTproBNP:>450 pg/mL for age <50 years>900 pg/mL for age 50-75 years>1800 pg/mL for age >75 yearsCHF very likely if NTproBNP:>19414 (regardless of age)The PRIDE study recommends the above cut-off values. It also recognizesa change in a patient's "dry" value of >25% as being an acute episode of HF. Therefore, a return to their"dry" level at a 25% decrease is an indication of a successful intervention.The above 1 analytes were performed by [facility] [id number] [place] [address], ,[place] [address] ID Date Data Source [id number] 07/12/2020 07:11:00 AM EST [facility] Name Value Range Interpretation Code Description Data Evelin rce(s) Supporting Document(s) Blood Urea Nitrogen 7 mg/dl 7-18 Normal (applies to non-nume kamilah results) [facility] Creatinine 0.74 mg/dl 0.67-1.17 Normal (applies to non-numeric resul ts) [facility] N-Acetylcysteine (NAC) and Metamizole bradley ve the potential to falselydepress Creatinine results. Baseline values before medication adminstration are recommended. Patients undergoing treatment with phenindione will have falselydepressed results. Patients on phenindione therapy should be tested with an alternativeCREA method.Toxic levels of acetaminophen may lead to falsely depressed results forpatient samples. Glomerular Filtration Rate >90.00 mL/min/1.73m2 [facility] GFR Reference Ranges:Normal Function or Mild Renal [...] of Health and the National KidneyFoundation. The [place] method used in calculating this result is traceable to IDMS standards. Glucose 205 mg/dl 70-110 Above high normal [facility] Sulfasalazine has the potential to false ly depress Glucose results. Sulfapyridine has the potential to falsely elevate Glucose results. Baseline values before medication administration are recommended. Calcium 8.7 mg/dl 8.5-10.1 Normal (applies to non-numeric resul ts) [facility] Sodium 138 mEq/L 136-145 Normal (applies to non-numeric resul ts) [facility] Potassium 3.3 mEq/L 3.5-5.1 Below low normal [facility] Chloride 106.0 mEq/L 98.0-107.0 Normal (applies to non-numeric resu lts) [facility] Carbon Dioxide 26.7 mMol/L 21.0-32.0 Normal (applies to non-numeric results) [facility] Anion Gap 8.6 7.0-15.0 Normal (applies to non-numeric resul ts) [facility] The above 10 analytes were performed by [facility] [id number] [place] [address], ,[place] [address] ID Date Data Source [id number] 07/12/2020 07:11:00 AM EST [facility] Name Value Range Interpretation Code Description Data Evelin rce(s) Supporting Document(s) Magnesium 1.7 mg/dl 1.6-2.6 Normal (applies to non-numeric resul ts) [facility] The above 1 analytes were performed by [facility] [id number] [place] [address], ,[place] [address] ID Date Data Source [id number] 07/12/2020 07:11:00 AM EST [facility] Name Value Range Interpretation Code Description Data Evelin rce(s) Supporting Document(s) Troponin I <0.015 ng/ml 0.000-0.100 Normal (applies to non-numeric re sults) [facility] Reference Values:Negative:<0.07 ng/mLInc reasing Risk of ACS:0.08-0.10 ng/mLPositive:>0.10 ng/mLConditions other than CA that cause increased troponin I values includebut are not limited to chest trauma, cardiac and non-cardiac surgery,congestive heart failure, drug cardio-toxicity, inflammatory diseasessuch as myocarditis, pulmonary embolism, inflitrative diseases, andacute neurological disease.An AMI diagnositc cutoff within a range of 0.6-1.5 ng/mL is consistentwith the WHO criteria for AMI.Concentrations of Biotin above 100 ng/mL can potentially result ininterference. Results obtained using [employer].The above 1 analytes were performed by [facility] [id number] [place] [address],[id number],[place] [address] ID Date Data Source [id number] 07/12/2020 06:52:00 AM EST [facility] Name Value Range Interpretation Code Description Data Evelin rce(s) Supporting Document(s) WBC 5.39 x1000/ul 4.80-10.00 Normal (applies to non-numeric re sults) [facility] RBC 3.88 x1Mil/ul 4.70-6.10 Below low normal [facility] Hemoglobin 11.3 g/dl 14.0-18.0 Below low normal [facility] Hematocrit 34.7 % 42.0-52.0 Below low normal [facility] MCV 89.4 fL 80.0-94.0 Normal (applies to non-numeric resul ts) [facility] MCH 29.1 pg 27.0-31.0 Normal (applies to non-numeric resul ts) [facility] MCHC 32.6 g/dl 32.2-37.0 Normal (applies to non-numeric resul ts) [facility] RDW 14.9 % 11.5-14.5 Above high normal [facility] Platelet Count 163 x1000/ul 130-400 Normal (applies to non-numeric results) [facility] MPV 10.1 fL 9.4-12.4 Normal (applies to non-numeric resul ts) [facility] Neutrophils 62.3 % 40.0-74.0 Normal (applies to non-numeric resu lts) [facility] Lymphocytes 23.7 % 19.0-48.0 Normal (applies to non-numeric resu lts) [facility] Monocytes 8.9 % 3.4-9.0 Normal (applies to non-numeric resul ts) [facility] Eosinophils 3.9 % 0.0-7.0 Normal (applies to non-numeric resu lts) [facility] Basophils 0.6 % 0.0-2.0 Normal (applies to non-numeric resul ts) [facility] Immature Granulocytes 0.6 % 0.0-0.5 Above high normal [facility] Nucleated RBCs 0.00 % 0.00-0.20 Normal (applies to non-numeric r esults) [facility] Abs. Neutrophils 3.36 x1000/ul 1.92-8.31 Normal (applies to non-numeric results) [facility] Abs. Lymphocyte 1.28 x1000/ul 1.20-3.70 Normal (applies to non-n umeric results) [facility] Abs. Monocytes 0.48 x1000/ul 0.14-0.97 Normal (applies to non-nu meric results) [facility] Abs. Eosinophils 0.21 x1000/ul 0.00-0.76 Normal (applie s to non-numeric results) [facility] Abs. Basophils 0.03 x1000/ul 0.00-0.22 Normal (applies to non-n umeric results) [facility] Abs. Immature Gran. 0.03 x1000/ul 0.00-0.02 Above high normal [facility] Abs. Nucleated RBCs 0.00 x1000/ul 0.00-0.02 Normal (appl ies to non-numeric results) [facility] The above 24 analytes were performed by [facility] [id number] [place] [address], ,[place] [address] ID Date Data Source [id number] 07/12/2020 12:07:00 AM EST [facility] Name Value Range Interpretation Code Description Data Evelin rce(s) Supporting Document(s) Glucose, Fingerstick 187 mg/dl 70-110 Above high normal [facility] The above 1 analytes were performed by [facility] [id number] [place] [address], ,[place] [address] ID Date Data Source [id number] 07/17/2020 09:55:00 AM EST [facility] Name Value Range Interpretation Code Description Data Evelin rce(s) Supporting Document(s) Culture Result No Growth After 5 Days [facility] The above 1 analytes were performed by [facility] [id number], ,[place] [address] ID Date Data Source [id number] 07/11/2020 10:37:00 PM [facility] Name Value Range Interpretation Code Description Data Evelin rce(s) Supporting Document(s) Troponin I <0.015 ng/ml 0.000-0.100 Normal (applies to non-numeric re sults) [facility] Reference Values:Negative:<0.07 ng/mLInc reasing Risk of ACS:0.08-0.10 ng/mLPositive:>0.10 ng/mLConditions other than CA that cause increased troponin I values includebut are not limited to chest trauma, cardiac and non-cardiac surgery,congestive heart failure, drug cardio-toxicity, inflammatory diseasessuch as myocarditis, pulmonary embolism, inflitrative diseases, andacute neurological disease.An AMI diagnositc cutoff within a range of 0.6-1.5 ng/mL is consistentwith the WHO criteria for AMI.Concentrations of Biotin above 100 ng/mL can potentially result ininterference. Results obtained using [employer].The above 1 analytes were performed by [facility] [id number] [facility], ,[place] [address] ID Date Data Source [id number] 07/11/2020 10:37:00 PM [facility] Name Value Range Interpretation Code Description Data Evelin rce(s) Supporting Document(s) C-Reactive Protein (Non-Cardiac) 3.49 mg/L 0.00-3.00 Above high nor [facility] The above 1 analytes were performed [facility] [id number] [facility], ,[place] [address] ID Date Data Source [id number] 07/17/2020 09:55:00 AM [facility] Name Value Range Interpretation Code Description Data Evelin rce(s) Supporting Document(s) Culture Result No Growth After 5 Days [facility] The above 1 analytes were performed by [facility] [id number], ,[place] [address] ID Date Data Source [id number] 07/11/2020 03:43:00 PM [facility] Bridget Ce is a rapid, automated qualita tive anddifferentiation of Influenza type A,B and [id number]-[id number]-RT-PCR testNORMAL VALUE IS "NOT DETECTED".Limitations of the bridget ce Influenza A/B & RVYU-KBD-8oqyct method.Modifications to manufacturers recommendation and proceduresmay alter performance of the test.Negative results do not preclude Influenza A,B or SARS- TAY0xmnwxnogzk and should not be used as the [...] rce(s) Supporting Document(s) ID Date Data Source [id number] 07/11/2020 03:43:00 PM [facility] Bridget Ce is a rapid, automated qualita tive anddifferentiation of Influenza type A,B and ZFBQ-[id number]-RT-PCR testNORMAL VALUE IS "NOT DETECTED".Limitations of the bridget ce Influenza A/B & WEOU-DRK-7rzloi method.Modifications to manufacturers recommendation and proceduresmay alter performance of the test.Negative results do not preclude Influenza A,B or SARS- QRD1ssdiwrrbgo and should not be used as the [...] Supporting Document(s) Extended hours FLU/COV2 [facility] ID Date Data Source [id number] 07/11/2020 03:08:00 PM EST [facility] Name Value Range Interpretation Code Description Data Evelin rce(s) Supporting Document(s) Bridget Ce SARS/FLU SARS-COV-2 NOT DETECTED [facility] This lab was ordered by [facility] and reported by [facility]. ID Date Data Source [id number] 07/11/2020 03:08:00 PM EST [facility] [address] [place] [address] [phone] NAME SEX PT STATUS ACCOUNT NUMBER JAGJIT IBARRA REG ER [id number] ORDERING PHYSICIAN LOCATION MEDICAL RECORD NO. Mika Shaffer MD ER [id number] ATTENDING PHYSICIAN DATE OF DATE OF EXAM/TIME [...] Reported By Reggie Kelly MD on 07/11/20 8529 Signed By Reggie Kelly MD on 07/11/20 1510 Date Time CC: Reggie Kelly MD; Jd Lal MD Techn: CARRC Trans Dt/Tm: Trans by: DT Prt Dt/Tm: 1274-1548: Total DLP = 0.00 mGy-cm Fluoroscopy Time (in secs): Name Value Range Interpretation Code Description Data Evelin rce(s) Supporting Document(s) ID Date Data Source [id number] 07/11/2020 02:53:00 PM EST [facility] Oxygen Delivery Method Room Air Anticoagulant or Thrombolytic medication : Other Po Anticoagulant Name Value Range Interpretation Code Description Data Evelin rce(s) Supporting Document(s) Leukocytes [#/volume] in Blood by Automated count 4.1 10*3/uL 4.45-10.71 Below low normal [facility] Erythrocytes [#/volume] in Blood by Automated count 3.79 10*6/uL 4.3-6.1 Below low normal [facility] Hemoglobin [Moles/volume] in Blood 11.1 g/dL 13-18 Below low no rmal [facility] Hematocrit [Volume Fraction] of Blood by Automated count 34.0 % 42-52 Below low normal [facility] Erythrocyte mean corpuscular volume [Ent itic volume] in Cord blood by Automated count 89.7 fL 80-96 N [facility] Erythrocyte mean corpuscular hemoglobin [Entitic mass] by Automated count 29.3 pg 27-31 N [facility] l Erythrocyte mean corpuscular hemoglobin concentration [Mass/volume] in Cord blood 32.6 g/dL 33-37 Below low normal [facility] Erythrocyte distribution width [Entitic volume] by Automated count 15 % 11-15 N [facility] Platelets [#/volume] in Blood by Automated count 157 10*3/uL 130-472 N [facility] Platelet mean volume [Entitic volume] in Blood 9.4 fL 9.1-13.1 [facility] Neutrophils/100 leukocytes in Blood by Automated count 55.9 % 41- 77 N [facility] Neutrophils [#/volume] in Blood by Automated count 2.3 U 1.7-7.6 N [facility] Lymphocytes/100 leukocytes in Blood by Automated count 30.5 % 14- 46 N [facility] Lymphocytes [#/volume] in Blood by Automated count 1.3 U 0.6-4.6 N [facility] Monocytes/100 leukocytes in Blood by Automated count 8.5 % 4-12 N [facility] Monocytes [#/volume] in Blood by Automated count 0.4 U 0.2-1.2 N [facility] Eosinophils/100 leukocytes in Blood by Automated count 3.9 % 0-7 N [facility] Eosinophils [#/volume] in Blood by Automated count 0.2 U 0.0-0.5 N [facility] Basophils/100 leukocytes in Blood by Automated count 0.7 % 0.4-1 .3 N [facility] Basophils [#/volume] in Blood by Automated count 0.0 U 0.0-0.2 N [facility] NUCLEATED RED BLOOD CELL 0 % [facility] NUCLEATED RED BLOOD CELL# 0 U [facility] Immature granulocytes [Presence] in Blood by Automated count 0-2 N [facility] Immature granulocytes [#/volume] in Blood by Automated count 0.0 U 0-0.1 N [facility] Manual Differential panel - Blood NO [facility] ID Date Data Source [id number] 07/11/2020 02:54:00 PM EST [facility] Oxygen Delivery Method Room Air Anticoagulant or Thrombolytic medication : Other Po Anticoagulant Name Value Range Interpretation Code Description Data Evelin rce(s) Supporting Document(s) pH of Venous blood 7.37 7.25-7.45 N [facility] Carbon dioxide [Partial pressure] in Venous blood 48.6 mm[Hg] 41.0-51 .0 N [facility] Oxygen [Partial pressure] in Venous blood 24.5 mm[Hg] 25.0-4 0.0 Below low normal [facility] 39.6 Bicarbonate [Moles/volume] in Venous blood 28.2 mmol/L 22.0- 26.0 Above high normal [facility] Base excess in Venous blood by calculation 2.3 -3.0-3.0 N [facility] Carbon dioxide, total [Moles/volume] in Venous blood 29.7 mmol/L 23-3 0 N [facility] 21@Reenter manual test result: 21%@by Barbara Rowe at 07/11/20 1453. ID Date Data Source [id number] 07/11/2020 03:16:00 PM [facility] Oxygen Delivery Method Room Air Anticoagulant or Thrombolytic medication : Other Po Anticoagulant Name Value Range Interpretation Code Description Data Evelin rce(s) Supporting Document(s) Prothrombin Time (Patient) 11.5 s 9.6-12.3 N [facility] INR 1.1 0.9-1.1 [facility] THE INR IS OPERATIONALLY DEFINED FOR RIKI SH PLASMA FROMPATIENTS STABILIZED ON ORAL ANTICOAGULANTS.ROUTINE ANTICOAGULANT THERAPY 2.0-3.0RECURRENT SYSTEMIC EMBOLISM/HEART VALVE REPLACEMENT 2.5-3.5 aPTT.lupus sensitive (LA screen) 24.4 s 22.7-31.6 N [facility] ID Date Data Source [id number] 07/11/2020 03:21:00 PM [facility] Oxygen Delivery Method Room Air Anticoagulant or Thrombolytic medication : Other Po Anticoagulant Name Value Range Interpretation Code Description Data Evelin rce(s) Supporting Document(s) Urea nitrogen [Mass/volume] in Serum or Plasma 7 mg/dL 9-23 Below low normal [facility] Sodium [Moles/volume] in Serum or Plasma 139 mmol/L 132-146 [facility] Potassium [Moles/volume] in Serum or Plasma 4.3 mmol/L 3.5-5.5 [facility] Chloride [Moles/volume] in Serum or Plasma 107 mmol/L 99-109 [facility] Carbon dioxide, total [Moles/volume] in Serum or Plasma 27 mmol/L 20 -31 N [facility] Anion gap in Serum or Plasma 9 mmol/L 8-16 [facility] Glucose [Mass/volume] in Serum or Plasma 331 mg/dL 74-106 Above high normal [facility] Creatinine 1.0 mg/dL 0.5-1.1 [facility] Glomerular filtration rate/1.73 sq M.pre dicted [Volume Rate/Area] in Serum or Plasma Greater Than 60 ABOVE 60 [facility] Alanine aminotransferase [Enzymatic acti vity/volume] in Serum or Plasma by With P-5'-P 17 U/L 10-49 N [facility] ital Aspartate aminotransferase [Enzymatic ac tivity/volume] in Serum or Plasma by With P-5'-P 16 U/L 0-33 N [facility] pital Alkaline phosphatase [Enzymatic activity/volume] in Serum or Plasma 98 U/L 45-129 N [facility] Calcium [Mass/volume] in Serum or Plasma 8.6 mg/dL 8.5-10.1 N [facility] Bilirubin.total [Mass/volume] in Serum or Plasma 0.6 mg/dL 0.3-1.2 N [facility] Albumin [Mass/volume] in Serum or Plasma by Bromocresol purple (BCP) dye binding method 3.5 g/dL 3.2-4.8 N [facility] ital Protein [Mass/volume] in Serum or Plasma 7.3 g/dL 5.7-8.2 [facility] ID Date Data Source [id number] 07/11/2020 03:21:00 PM [facility] Oxygen Delivery Method Room Air Anticoagulant or Thrombolytic medication : Other Po Anticoagulant Name Value Range Interpretation Code Description Data Evelin rce(s) Supporting Document(s) Magnesium [Mass/volume] in Serum or Plasma 1.8 mg/dL 1.3-2.7 [facility] ID Date Data Source [id number] 07/11/2020 03:21:00 PM [facility] Oxygen Delivery Method Room Air Anticoagulant or Thrombolytic medication : Other Po Anticoagulant Name Value Range Interpretation Code Description Data Evelin rce(s) Supporting Document(s) Troponin I.cardiac [Mass/volume] in Serum or Plasma Less Than 0.015 0.00-0.09 [facility] Less than 0.09 NG/ML Negative0.10 - 0.77 NG/ML High Risk0.78 NG/ML or Greater PositiveThe WHO defined the cutoff (definition for diagnosis of CA)for this method as 0.78 ng/ml. ID Date Data Source [id number] 07/11/2020 03:21:00 PM [facility] Oxygen Delivery Method Room Air Anticoagulant or Thrombolytic medication : Other Po Anticoagulant Name Value Range Interpretation Code Description Data Evelin rce(s) Supporting Document(s) Natriuretic peptide.B prohormone N-Terminal [Mass/volu me] in Serum or Plasma 227.00 pg/mL 0.00-175 Above high normal [facility] spital ID Date Data Source [id number] 07/11/2020 03:21:00 PM [facility] Anticoagulant or Thrombolytic medication : Other Po AnticoagulantIs test to R/O PE, DVT or VTE? Y Name Value Range Interpretation Code Description Data Evelin rce(s) Supporting Document(s) Fibrin D-dimer [Units/volume] in Platelet poor plasma 0.99 mg/L 0.0-0.50 Above high normal [facility] @ Has QC been run for this test today?veronica Franks NOTE: THIS TEST WAS PERFORMED USING A PARTICLE-ENHANCED, IMMUNOTURBIDIMETRIC ASSAY AND HAS A SINGLE,CLINICALLY DERIVED CUTOFF OF 0.50 MG/L. ID Date Data Source [id number] 07/11/2020 02:31:00 PM [facility] ED Physician Documentation NAME: JAGJIT IBARRA : 1960 AGE: 60 MR#: [id number] SERVICE DATE: 07/11/[address]: Mika Shaffer [...] had AICD placed for hypertrophic CMY in [place], [place] in 2014, IDDM, HTN, CAD s/p PCI who recently was admitted and dx with endocarditis was transferred to [facility] and had his AICD removedJan2019 and is [...] fibrillation (Medical) I48.0 Cardioversion done twice in [place] Raynaud's disease (Medical) I73.00 Spinal fusion failure [...] % (Auto) 55.9, Lymph % (Auto) 30.5, Citrus % (Auto) 8.5, Eos % (Auto) 3.9, [...] Phosphatase 98, Troponin I Less than 0.015, Irx-L-Anvivfptddr Pept 227.00 H, Serum Total Protein 7.3, [...] previously had AICD placed forhypertrophic CMY in [place], [place] in 2014, IDDM, HTN, CAD s/p PCI who recently was admitted and dx withendocarditis was transferred to [facility] and had his AICD removed May 2019 [...] Tele. Dr. Ferreira graciously accepted patient to [facility] Cardiology for close monitoring. 1536: Dr. Mcdonald, , called and report given, accepted patient to [place]. Patient feels comfortableand would like to go to [place]. 1548: labs unremarkable including electrolytes, trop neg, CXR with cardiomegaly but without acute CPdisease. Has remained normal sinus on Tele. His D-dimer is slightly elevated, however, considering that the patient is on Eliquis, do not suspect a PE. D-dimer was ordered prior to me realizing that the patient was on Eliquis, therefore, its non-specific and was not perused any further. Patient transferred to [facility] in [place] for Cardiology services and possible invasive procedures/testing. [...] 07/11/20 14:29 Discharge Detail Disposition: Transfer - [facility] Med Rec New Prescriptions: No Action Lantus [...] rce(s) Supporting Document(s) ID Date Data Source [id number] 07/10/2020 12:43:00 PM [facility] Patient Name: JAGJIT IBARRA : 1960 Sex: M Pt Unit #: [id number] Location:[facility] Provider: Visit Date/Time: 07/10/20 Primary Insurance: [employer] [...] Note: New Patient- Pt was hospitalized at [facility], transferred to [facility] and then to [facility] 06/21-06/23/20 for an infected defibrillator. 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 amiodarone 200 mg PO BID [...] Chest pain Deep vein thrombosis Essential hypertension Anmoore filter in place Hiatal hernia History of [...] has been receiving medical care in the [place] [facility] in [place]. Review of Systems Const Denies anorexia, Denies [...] morbidly obese Orientation: alert and awake [facility] Head: normal to inspection, normocephalic, atraumatic and [...] 2 diabetes mellitus with hyperglycemia; Z79.4 - care home (current) use of insulin SNOMED Code(s): 38024638 Category: Medical Plan - Jd Lal M.D.: [...] Code(s): D64.9 - Anemia, unspecified SNOMED Code(s): 699212856 Category: Medical Qualifiers: Anemia type: unspecified type [...] depressive disorder, single episode, unspecified SNOMED Code(s): 219763311 Category: Medical Qualifiers: Active/Remission status: in full remission Major depression recurrence: recurrent Qualified Code(s): F33.42 - Major depressive disorder, recurrent, in full remission Mulugeta Lla M.D.: Patient is on medication management for his major depression. He had no issues pertaining to this disease. (5) Paroxysmal atrial fibrillation: Status: Acute Comment: Cardioversion done twice in [place] Code(s): I48.0 - Paroxysmal atrial fibrillation SNOMED Code(s): 605112010 Category: Ness Lal M.D.: Patient has a history of paroxysmal atrial fibrillation. He claims that he has had cardioversion done on 2 occasions. He did not have any complains of palpitations or near syncopal spells. He hasbeen on amiodarone and Eliquis for this. He is going to be following up with the director summer sessions on anongoing basis for this. (6) CAD (coronary artery disease): Status: Acute Code(s): I25.10 - Atherosclerotic heart disease of ili[place] coronary artery without angina pectoris SNOMED Code(s): 08453005 Category: Medical Qualifiers: Associated angina: without angina Coronary Disease- Associated Artery/Lesion type: [place] artery [place] vs. transplanted heart: iliamna heart Qualified Code(s): I25.10 - Atherosclerotic heart disease of iliam[place] coronary artery without angina pectoris Mulugeta Lal M.D.: Patient denied any symptoms of decompensated heart disease at this time. This is despite recent removal of his AICD. (7) Essential hypertension: Status: Acute Code(s): I10 - Essential (primary) hypertension SNOMED Code(s): 53903527 Category: Ness Lal M.D.: Blood pressure was [...] next visit. This document was dictated using [employer] speech recognition software. A reasonable attempt to [...] angina: without angina Coronary Disease-Associated Artery/Lesion type: [place] artery [place] vs. transplanted heart: iliamna heart Essential hypertension I10 Time Spent (min) 60 Comment Extremely complicated patient, complex medication regimen, uncontrolled diabetes <Electronically signed by Jd Lal MD> 07/12/20 1628 Name Value Range Interpretation Code Description Data Evelin rce(s) Supporting Document(s) ID Date Data Source [id number] 07/10/2020 10:56:00 AM EST [facility] [address] [facility] [place] [address] [phone] NAME SEX PT STATUS ACCOUNT NUMBER JAGJIT IBARRA REG REF [id number] ORDERING PHYSICIAN LOCATION MEDICAL RECORD NO. MADAI EDWARDS MD MRI [id number] ATTENDING PHYSICIAN DATE OF DATE OF EXAM/TIME [...] Trans Dt/Tm: Trans by: DT Prt Dt/Tm: 2432-3182: Total DLP = 0.00 mGy-cm 2674-8583: Total Radiation Dose = 0.0000 mSv Lifetime Dose: 35.1467 mSv Name Value Range Interpretation Code Description Data Evelin rce(s) Supporting Document(s) ID Date Data Source [id number] 07/05/2020 05:59:00 PM [facility] [address] [place] [address] [phone] NAME SEX PT STATUS ACCOUNT NUMBER JAGJIT IBARRA REG ER [id number] ORDERING PHYSICIAN LOCATION MEDICAL RECORD NO. Whit Cota MD ER [id number] ATTENDING PHYSICIAN DATE OF DATE OF EXAM/TIME [...] Trans Dt/Tm: Trans by: DT Prt Dt/Tm: 4910-1091: Total DLP = 1203.00 mGy-cm Fluoroscopy Time (in secs): Name Value Range Interpretation Code Description Data Evelin rce(s) Supporting Document(s) ID Date Data Source [id number] 07/05/2020 05:31:00 PM [facility] [address] [place] [address] [phone] NAME SEX PT STATUS ACCOUNT NUMBER JAGJIT IBARRA [facility] ER [id number] ORDERING PHYSICIAN LOCATION MEDICAL RECORD NO. Whit Cota MD ER [id number] ATTENDING PHYSICIAN DATE OF DATE OF EXAM/TIME [...] Trans Dt/Tm: Trans by: DT Prt Dt/Tm: 5178-3475: Total DLP = 1203.00 mGy-cm 0111-3732: Total Radiation Dose = 3.7293 mSv Lifetime Dose: 35.1467 mSv Name Value Range Interpretation Code Description Data Evelin rce(s) Supporting Document(s) ID Date Data Source [id number] 07/10/2020 05:11:00 PM [facility] Special Instructions: Lab may order repe at test if initial test elevatedPhysician If elevated, reflex second test in 4-6 hrs Anticoagulant or Thrombolytic medication : Other Po Anticoagulant Name Value Range Interpretation Code Description Data Evelin rce(s) Supporting Document(s) Bacteria identified in Blood by Culture [facility] NO GROWTH AFTER 5 DAYS ID Date Data Source [id number] 07/05/2020 04:55:00 PM [facility] Special Instructions: Lab may order repe at test if initial test elevatedPhysician If elevated, reflex second test in 4-6 hrs Anticoagulant or Thrombolytic medication : Other Po Anticoagulant Name Value Range Interpretation Code Description Data Evelin rce(s) Supporting Document(s) Leukocytes [#/volume] in Blood by Automated count 6.6 10*3/uL 4.45-10 .71 N [facility] Erythrocytes [#/volume] in Blood by Automated count 3.63 10*6/uL 4.3-6.1 Below low normal [facility] Hemoglobin [Moles/volume] in Blood 10.7 g/dL 13-18 Below low no rmal [facility] Hematocrit [Volume Fraction] of Blood by Automated count 32.1 % 42-52 Below low normal [facility] Erythrocyte mean corpuscular volume [Ent itic volume] in Cord blood by Automated count 88.4 fL 80-96 N [facility] ital Erythrocyte mean corpuscular hemoglobin [Entitic mass] by Automated count 29.5 pg 27-31 N [facility] l Erythrocyte mean corpuscular hemoglobin concentration [Mass/volume] in Cord blood 33.3 g/dL 33-37 N [facility] ital Erythrocyte distribution width [Entitic volume] by Automated count 14 % 11-15 N [facility] Platelets [#/volume] in Blood by Automated count 149 10*3/uL 130-472 N [facility] Platelet mean volume [Entitic volume] in Blood 10.2 fL 9.1-13.1 N [facility] Neutrophils/100 leukocytes in Blood by Automated count 60.1 % 41- 77 N [facility] Neutrophils [#/volume] in Blood by Automated count 4.0 U 1.7-7.6 N [facility] Lymphocytes/100 leukocytes in Blood by Automated count 28.9 % 14- 46 N [facility] Lymphocytes [#/volume] in Blood by Automated count 1.9 U 0.6-4.6 N [facility] Monocytes/100 leukocytes in Blood by Automated count 6.1 % 4-12 N [facility] Monocytes [#/volume] in Blood by Automated count 0.4 U 0.2-1.2 N [facility] Eosinophils/100 leukocytes in Blood by Automated count 3.8 % 0-7 N [facility] Eosinophils [#/volume] in Blood by Automated count 0.3 U 0.0-0.5 N [facility] Basophils/100 leukocytes in Blood by Automated count 0.6 % 0.4-1 .3 N [facility] Basophils [#/volume] in Blood by Automated count 0.0 U 0.0-0.2 N [facility] NUCLEATED RED BLOOD CELL 0 % [facility] NUCLEATED RED BLOOD CELL# 0 U [facility] Immature granulocytes [Presence] in Blood by Automated count 0-2 N [facility] Immature granulocytes [#/volume] in Blood by Automated count 0.0 U 0-0.1 [facility] Manual Differential panel - Blood NO [facility] ID Date Data Source [id number] 07/05/2020 05:15:00 PM [facility] Special Instructions: Lab may order repe at test if initial test elevatedPhysician If elevated, reflex second test in 4-6 hrs Anticoagulant or Thrombolytic medication : Other Po Anticoagulant Name Value Range Interpretation Code Description Data Evelin rce(s) Supporting Document(s) Lactic w Rfx (if elevated) 2.1 mmol/L 0.5-2.0 [facility] Called to SHIRLEY Ayala @ [phone] by Iona Cha . Results read back. ID Date Data Source [id number] 07/05/2020 05:40:00 PM [facility] Special Instructions: Lab may order repe at test if initial test elevatedPhysician If elevated, reflex second test in 4-6 hrs Anticoagulant or Thrombolytic medication : Other Po Anticoagulant Name Value Range Interpretation Code Description Data Evelin rce(s) Supporting Document(s) Urea nitrogen [Mass/volume] in Serum or Plasma 16 mg/dL 9-23 N [facility] Sodium [Moles/volume] in Serum or Plasma 141 mmol/L 132-146 [facility] Potassium [Moles/volume] in Serum or Plasma 4.4 mmol/L 3.5-5.5 [facility] Chloride [Moles/volume] in Serum or Plasma 108 mmol/L 99-109 N [facility] Carbon dioxide, total [Moles/volume] in Serum or Plasma 29 mmol/L 20 -31 N [facility] Anion gap in Serum or Plasma 8 mmol/L 8-16 [facility] Glucose [Mass/volume] in Serum or Plasma 245 mg/dL 74-106 Above high normal [facility] Creatinine 1.0 mg/dL 0.5-1.1 [facility] Glomerular filtration rate/1.73 sq M.pre dicted [Volume Rate/Area] in Serum or Plasma Greater Than 60 ABOVE 60 [facility] Alanine aminotransferase [Enzymatic acti vity/volume] in Serum or Plasma by With P-5'-P 15 U/L 10-49 N [facility] ital Aspartate aminotransferase [Enzymatic ac tivity/volume] in Serum or Plasma by With P-5'-P 16 U/L 0-33 N [facility] pital Alkaline phosphatase [Enzymatic activity/volume] in Serum or Plasma 105 U/L 45-129 N [facility] Calcium [Mass/volume] in Serum or Plasma 8.4 mg/dL 8.5-10.1 DL [facility] Repeated by: Iona Cha 07/05/20 1740. Result Confirmation: 8.5 mg/dL Bilirubin.total [Mass/volume] in Serum or Plasma 0.5 mg/dL 0.3-1.2 N [facility] Albumin [Mass/volume] in Serum or Plasma by Bromocresol purple (BCP) dye binding method 3.2 g/dL 3.2-4.8 N [facility] ital Protein [Mass/volume] in Serum or Plasma 6.7 g/dL 5.7-8.2 N [facility] ID Date Data Source [id number] 07/05/2020 05:52:00 PM [facility] Special Instructions: Lab may order repe at test if initial test elevatedPhysician If elevated, reflex second test in 4-6 hrs Anticoagulant or Thrombolytic medication : Other Po Anticoagulant Name Value Range Interpretation Code Description Data Evelin rce(s) Supporting Document(s) Prothrombin Time (Patient) 11.8 s 9.6-12.3 N [facility] INR 1.1 0.9-1.1 [facility] THE INR IS OPERATIONALLY DEFINED FOR RIKI SH PLASMA FROMPATIENTS STABILIZED ON ORAL ANTICOAGULANTS.ROUTINE ANTICOAGULANT THERAPY 2.0-3.0RECURRENT SYSTEMIC EMBOLISM/HEART VALVE REPLACEMENT 2.5-3.5 aPTT.lupus sensitive (LA screen) 26.1 s 22.7-31.6 N [facility] ID Date Data Source [id number] 07/05/2020 05:39:00 PM [facility] Name Value Range Interpretation Code Description Data Evelin rce(s) Supporting Document(s) Troponin I.cardiac [Mass/volume] in Serum or Plasma Less Than 0.015 0.00-0.09 N [facility] Less than 0.09 NG/ML Negative0.10 - 0.77 NG/ML High Risk0.78 NG/ML or Greater PositiveThe WHO defined the cutoff (definition for diagnosis of CA)for this method as 0.78 ng/ml. ID Date Data Source [id number] 07/05/2020 05:39:00 PM [facility] Name Value Range Interpretation Code Description Data Evelin rce(s) Supporting Document(s) Natriuretic peptide.B prohormone N-Terminal [Mass/volu me] in Serum or Plasma 303.00 pg/mL 0.00-175 Above high normal [facility] spital ID Date Data Source [id number] 07/05/2020 04:36:00 PM [facility] ED Physician Documentation NAME: JAGJIT IBARRA : 1960 AGE: 60 MR#: [id number] SERVICE DATE: 07/05/[address]: Whit Cota MD PRIMARY CARE DR: Ida Alcantara [employer] ROOM#: HPI (Adult, General) General Chief Complaint: [...] thrombosis (Medical) I82.409 Diabetes mellitus (Medical) E11.[address] (Medical) Z95.828 Hiatal hernia [...] % (Auto) 60.1, Lymph % (Auto) 28.9, Citrus %(Auto) 6.1, Eos % (Auto) 3.8, Baso [...] 07/05/20 16:40: Troponin I Less than 0.015, Ryt-R-Czyjxtvhdqu Pept 303.00 H EKG Data -: EKG [...] Signers: <Electronically signed by Whit Cota MD> Whit Cota MD 07/05/201999 Whit Cota MD SIGNATURE DA Report Cosigners: D: FLORENTIN 07/05/201635 T: FLORENTIN 07/05/201635 CC: Ida Alcantara Name Value Range Interpretation Code Description Data Evelin rce(s) Supporting Document(s) ID Date Data Source [id number] 06/23/2020 11:34:27 AM EST [facility] Name Value Range Interpretation Code Description Data Evelin rce(s) Supporting Document(s) POC NOVA GLU 306 mg/dL (70-99) H [facility] [place] PERFORMED BY [facility] CLINICAL STAFF ID Date Data Source [id number] 06/23/2020 11:31:55 AM EST [facility] NT INFORMATIONPatient MRN Name Date of Age Gend*PT [id number] Jagjit Ibarra 1960 60 years M IPPT Location Admission Date/Time Visit ID Attending ProviderCV-[id number] 06/21/20 1444 --- Kathryn Adler MD([id number]) EPI ID CSN Admitting Provider [id number] Maury Treviño MD([id number]) [facility] DISCHARGE SUMMARYPatient Name: Jagjit Ibarra of : 1960 Age 60 yearsPrimary Physician: Adonis Carballo MD PCP Vycqkwrcd Date: 06/21/2020 Discharge Date:He will be discharged [...] 2g IV q8h for [facility] daysFollow[facility] Course:Jagjit Ibarra is a 60 year old male with a PMH of CAD, PAF, HTN, HLD, DMII whopresent[facility] infected ICD, MSSA bacteremia. Had a TTE at [facility] showing small vegetation on the ICD lead. [...] rce(s) Supporting Document(s) ID Date Data Source [id number] 06/23/2020 10:22:20 AM EST [facility] Name Value Range Interpretation Code Description Data Evelin rce(s) Supporting Document(s) Progress Notes [facility] XPTVXu0fSaDAKlGk99/TFUluEOCzx3ZcRRelUQx6RBagTYOhT9BdJLO5vZ3nMKN9NOkRTtMaXjOdNLO3 lbm [file] AgICAgICAgICAgICAgICAgICAgICAgICAgICAgICAg ICAgICAgICAgICAgICAgICAgICAgICAgICAgICAgICAgICAgICAgICAgICAgICAgICAgICAgICAgICAg HUNyKQ7UQUYhZELhQCBpRKFqSQWyFHOjMZInWQCwZDBdJVVoGQBzDTPwUNAwKEKdQUKuAYEfGPIeEXXo ICAgICAgICAgICAgICAgICAgICAgICAgICAgICAgIC DiACFoELXzBTEhUHYhQA4LWJRfADEmKFRtYGNvXUMeHWPvFIKeLYAuRHZwWKErHECmGZObACLjVSNxGW StYBGvHYBkVAJsNFWuBSZwGCRkYSGyDUJjPCAbHZMnGXSoRUPjMRMiZGRlCDUmZMEkDRYnYODcHC3PBW AgICAgICAgICAgICAgICAgICAgICAgICAgICAgICAg ICAgICAgICAgICAgICAgICAgICAgICAgICAgICAgICAgICAgICAgICAgICAgICAgICAgICAgICAgICAg MCIqVHLeJZ1QYJPhCLLzHFWlTXJtITRkTNQtMLYgZQNgUITmRIDnDRLrZEOvELHpWAQtEPJiTBArXYRn ICAgICAgICAgICAgICAgICAgICAgICAgICAgICAgIC GzBVLcASTjUEOgWEJcYMZwTB8JABNiZMLlNAQnNJFwISZwTAOrNWIkYUIyWULsZKRrUHMuWIOhGTJiJD AgICAgICAgICAgICAgICAgICAgICAgICAgICAgICAgICAgICAgICAgICAgICAgICAgICAgICAgICAgIA 0KICAgICAgICAgICAgICAgICAgICAgICAgICAgICAg ICAgICAgICAgICAgICAgICAgICAgICAgICAgICAgICAgICAgICAgICAgICAgICAgICAgICAgICAgICAg LSPpRMYzXQPgPM7XXIJvNQFeDUJmTAVjXCPoVEBdKSDxMICiPXLrEIClCTBqAWSsCWSiJWMrQDPtDJCt ICAgICAgICAgICAgICAgICAgICAgICAgICAgICAgIC UoSXOnCMTtHTRiDFJkILWbTJYkIG0LXZFdIDYiQMKrMZVoSWWsDZTlBMDeQPCaADVfGFPdPDEmERLeAT AgICAgICAgICAgICAgICAgICAgICAgICAgICAgICAgICAgICAgICAgICAgICAgICAgICAgICAgICAgIC DfDS9QMI33nQMtx0Z9YZLcKB9dkfp/Fl6RHSyzazKz vTGfMG9RKiOlQG5ohe4YDzJaAN6onk1EDWhPBoUuX7E2eGOvGFMsKENLIgGfE96zFPyjWi63ATpjKECh QdRdZKx6Hm9TRuNpO3yaPNDiWaF2HNJhLtM0DIAoDuR3LZQhNdPeIBfhIA3Xv8AssBNkEZc+Zf5QFK6c x6NwNIycWkWfCL6lls2SKHjVGpKuE5RmzpW1ZLJ0RO HsTx2RRFRvTBHkjZMeKOPgYGUXCfJfY8CxdW06RSLWUe3+XLneevBfQgmSIvP4YRRlk4EpEPk2HA9EWU GwIWk2zJRnURCgF4Xrs9IeTu49BGVeRccqQ5RfZDUNqEnskzqzGAVpVNTuUE3kFh9rITGcPECmJdY6XU HSEE1BEDHfSLSscOXwDEBkVGOJBN4MWQliQOH9Qode ogNxmGDpMMhhNW4GYEKcgtWhIaAlQSGPQVo+Kp0UGA0ms5HrGQggIFKgWR1mlp5DKYoDKxOvO6Y9xHOs B3Q2LEsmWo1OCKNqABQaNaZrFYPUUHjgSC5CMX3prbQ5BA8JdVBxBRCqBNSmlUHuFCm4J62kvTQyHNwx CW6XBIQ+Yadira+Kv9AZRQjMRDmIQTxTpTxOLKVQiYwX9 JhH0OQt8MaN2CcFH30gHxraeUuJOkpPD5RMB0sAFJjMSSXRF1KbQNjrQ0dcvBxUnSwNPQEAnAtB87vrD RoWHVhUNVmZRQgQg0JGMCiM1BwxrDmzMhosqUkJJUvQXWNMC8ENOrljvNahVGppIxlIX77jNscHF8AKz 5QFkMnWT5hwz6SxZIiLx6ALQMlSp4PWUNgWQCeAJZi JFL9RDSpZxWqGUbsHCAqANIuCOE8XGAsOHZqVP0GOsZhAGXuWLr9USSuTIPeESGcix6IKALwCKEaSYEs EtIcFTOlLGOrEDwrFABuQAXeGZK6JJZfEOAvBW3OZfElFAXiRAL5YHfzPLTgKHJxfz6IPOFlWXKuBfvf YdLyJNVwUXJrJYjiFQKbPYA4BGEyQUSeIQZsOC0TCy YqZHSvYJgzIUogLKXnZBHxiq4YCTNjDNGzPIgmKpInPXMhVNKyLXbuFVAjVFX0KDJiAZSuTIReYJ7HMb KjLVOoRKi0SopzGBViJSHhfi4GYOVgQRWsYQN4FECaOLEgCFKzJFniHLBiYOSfJkZ8RRHbCAVzRC1SDj QxLDMrYYImFrafPAYfYRMgik8JBZVkNUClRDQhGtYb QXIkXGOjQAciVSKbOJPhDdH2JYLuMSTgRQ4JNzXgIBRqZDA4JkqfTCTdSFHhsu4JDIJjABHcMlk7OYIm EFFdAQNuMNgnRMOcFUXvKBUdTSKoXFHrQP2BWkUtYOMyDYWpYZFfWSGaVYNuvs2KXOGjYTQlBHPwWMVx JZDcDOHjKIamUJYaYGV0TSK4DPSwGATaWP5MNwEqCE YmKLPeAiwcBXGdFRYqwy9KHCFnWWWkMVU8FKTzTWTnBBUiGUiiTWXwOKU9OkRkUQHdRARpWV4KPwPyBD SfIEY9YAMgVUJsDTIevs1IYDBgLFGpGwlfHqPtCWGeHYFmOSolQWWjCHT4WWQsYHJlMXNuPN2TUnBvNU XdHRvqYICtWJYnVXObgx5QWXVoTLNoFGO0CCMhHYHy UAPuBSwmBLAgBNC4LKnqLHSkBTLaOI4YDmMpKXOyFEs6WuMnGDTkHIIjgg2QQFKaBNYyJDIeUzIbHBIx TYXuZXlcEBPtEZOdZSr1NSHqMTYiZY7HBoBqSWQyFwB9FBPhNBCjJCJnou8IxMMjbMtixr9QZMwBBi1I eKytWRA2GZznQz5tdURyGSRuVDAKHf6NzqZqJYXiCD YYGAusBULhBTJyP5XwTkSkU8H7FJV2MBwjFLF8KnZ7J9TeXjZ9YwQdWgU2TsA7HqGqPZH2Ejq0SMK5Ya W8GeL5ZNc1SnPwZtZxTSW+BY2dUXy+Uu1Pf9GtrwZ8doSfGApdBRs1Gl4DTOSIR8PROi== ID Date Data Source [id number] 06/23/2020 10:17:46 AM EST [facility] NT INFORMATIONPatient MRN Name Date of Age Gend*PT [id number] Fred Jagjit 1960 60 years M IPPT Location Admission Date/Time Visit ID Attending ProviderCV-06/21/20 1444 --- Kathryn Adler MD([id number]) EPI ID CSN Admitting Provider [id number] Maury Treviño MD([id number])Infectious Disease ConsultationAdmitted: 06/21/2020ate: 06/23/2020Impression: 60-year-old man diagnosed [...] will therefore not be [facility].I discussed the case with Dr. Adler. I [...] and chest pain. He waseventually admitted to [facility] on 06/07/2020 at which time4 sets of blood cultures grew MSSA. He was begun on cefazolin and thentransferred to [facility] in [place] for DANIELE. The DANIELE showed a verysmall vegetation on the ICD lead. Because of this he was referred here fordevice extraction. Dr. Jeffrey Fuentes did this on 06/22/20 (yesterday). Theprocedure was without complications. I am asked to recommend an appropriateduration of IV cefazolin.The patient is feeling well. Denies any difficulty with cefazolin. Donnie. He [place] health [place] from the [place], who apparently will be providinghis home IV antibiotics after discharge. Apparently he already had someinstruction regarding home cefazolin while he was at [facility].The patient has type 2 diabetes. He says he has not been checking his bloodsugars at home and that his diabetes had not been well controlled prior to thesehospitalizations. He also [facility] stopped because he was not feeling [...] normal saline flush 3 mL Intravenous Q8H [facility] normal saline flush 3 mL Intravenous Per ProtocolFamily History: family history includes Heart disease in his father and mother.Social History:The patient is originally from [place]. [place] He now lives in [facility] where some of his family is [...] of blood cultures obtained on 06/07/2020 at [facility] grew MSSA.Follow-up blood cultures were negative.Imaging: Chest x-ray shows cardiomegaly with possible mild vascular congestion.Echocardiogram: Consistent with hypertrophic cardiomyopathy without obstruction.No vegetations noted on the tricuspid valve Name Value Range Interpretation Code Description Data Evelin rce(s) Supporting Document(s) ID Date Data Source [id number] 06/23/2020 07:40:17 AM EST [facility] Name Value Range Interpretation Code Description Data Evelin rce(s) Supporting Document(s) POC NOVA GLU 286 mg/dL (70-99) H [facility] [place] PERFORMED BY [facility] CLINICAL STAFF ID Date Data Source [id number] 06/23/2020 07:35:48 AM EST [facility] Name Value Range Interpretation Code Description Data Evelin rce(s) Supporting Document(s) SODIUM 134 mmol/L (136-145) L [facility] POTASSIUM 4.2 mmol/L (3.6-5.2) [facility] CHLORIDE 101 mmol/L (100-108) [facility] CO2 27 mmol/L (22-31) [facility] ANION GAP 6 mmol/L (7-16) L [facility] UREA NITROGEN 18 mg/dL (7-24) [facility] CREATININE 1.16 mg/dL (0.80-1.30) [facility] BUN/CREAT RATIO 15.5 RATIO (10.0-20.0) [facility] GLUCOSE 266 mg/dL (70-99) H [facility] CALCIUM 9.3 mg/dL (8.4-10.2) [facility] GFR >60 ml/min/1.73m2 (>59) [facility] GFR ( AM) >60 ml/min/1.73m2 (>59) [facility] GFR INTERPRETATION [facility] --NORMAL KIDNEY FUNCTION OR MILD DISEASE - GFR >OR= 60CHRONIC KIDNEY DISEASE - GFR 15 - 59RENAL FAILURE - GFR <15 Est. GFR calculation based on the MDRDstudy equation, which assumes a steadystate for creatinine. Est. GFR should notbe used for medication dosing. ID Date Data Source [id number] 06/23/2020 07:03:32 AM EST [facility] Name Value Range Interpretation Code Description Data [facility](s) Supporting Document(s) WBC 11.2 10*3/uL (4.1-11.0) H [facility] RBC 3.90 10*6/uL (4.60-6.10) L [facility] HGB 11.9 g/dL (13.5-18.0) [facility] HCT 33.2 % (41.0-53.0) [facility] MCV 85.2 fL (80.0-95.0) [facility] MCH 30.6 pg (27.0-32.0) [facility] MCHC 35.9 g/dL (32.0-36.0) [facility] RDW 13.1 % (10.5-14.5) [facility] PLT 276 10*3/uL (150-450) [facility] MPV 8.2 fL (7.1-10.7) [facility] ID Date Data Source [id number] 06/22/2020 04:59:35 PM EST [facility] Name Value Range Interpretation Code Description Data Evelin rce(s) Supporting Document(s) POC NOVA GLU 199 mg/dL (70-99) H [facility] [place] [facility] STA[facility] ID Date Data Source [id number] 06/22/2020 02:58:26 PM EST [address] [address]Ifcjqph Name: JAGJIT ANDERSONINTDOB: 1960ex: MOrdering Provider: DILLON Shaikh Prov: DILLON Benitez Provider: Procedure Performed: XR CHEST PORTABLEExam Date: 06/22/2020 14:46MRN: [id number] Number: [id number] Class: InpatientAccount #: [id number] for Exam: extractionTechnique: AP portable view obtained.Comparison: [...] MARGARITO REVELES On 06/22/2020 2:58 PMWorkstation ID: [id number] Name Value Range Interpretation Code Description Data Evelin rce(s) Supporting Document(s) ID Date Data Source [id number] 06/22/2020 02:27:02 PM EST [facility] Name Value Range Interpretation Code Description Data Evelin rce(s) Supporting Document(s) XR FLUORO UP TO 1 HR [facility] ID Date Data Source [id number] 06/22/2020 02:21:56 PM EST [facility]PAT[facility] NT INFORMATIONPatient MRN Name Date of Age Gend*PT [id number] Jagjit Ibarra 1960 60 years M IPPT Location Admission Date/Time Visit ID [facility] 1444 --- Kathryn Adler MD([id number]) EPI ID CSN Admitting Provider [id number] Maury Treviño MD([id number]) Operative ReportPatient Name: Jagjit Ibarra Date of : 1960Gender: male Age:60yearsMedical Record Number: [id number] Date: 06/22/20Electrophysiologist: Dillon Fuentes MDAssistants: NoneProcedure: ICD [...] a 1 silk tie. Using a 13 Lithuanian sub-Cmechanical sheath the binding sites over the atrial lead followed by the rightventricular lead were dissected through. Next using a 16 Lithuanian laser sheaththe right atrial lead was extracted [...] was removed and hemostasis wasmaintained with a prdnhj-wq-kcbdd stitchTransesophageal ECHO Visualization: Continuous Transesophageal ECHO wasperformed [...] sent and are pendingSignature: Dillon Dietz MD, [facility] SERVICE UNITCardiac Electrophysiology and Arrhythmia ServiceDate: 06/22/2020Time: 2:17 PMThis document or parts of this document, were dictated using [employer]. A reasonable attempt at proofreading has been made to minimize errors.Please call with any questions or corrections. Name Value Range Interpretation Code Description Data Evelin rce(s) Supporting Document(s) ID Date Data Source [id number] 06/22/2020 02:11:49 PM EST [facility] Name Value Range Interpretation Code Description Data Evelin rce(s) Supporting Document(s) &PDF [facility] AOIFBd8vGiNVErHj79/YMUqjHSRjd2CmQFocMTs1YZpjYCKyL0DbaMlxKFCEMR6SZZvSS6hMKE1aWF1p pYy [file] ICAgICAgICAgICAgICAgICAgICAgICAgICAgICAgICAgICAgICAgICAgICAgICAgICANCiAgICAgICAg ICAgICAgICAgICAgICAgICAgICAgICAgICAgICAgIC AgICAgICAgICAgICAgICAgICAgICAgICAgICAgICAgICAgICAgICAgICAgICAgICAgICAgICAgICAgIC ANCiAgICAgICAgICAgICAgICAgICAgICAgICAgICAgICAgICAgICAgICAgICAgICAgICAgICAgICAgIC AgICAgICAgICAgICAgICAgICAgICAgICAgICAgICAg ICAgICAgICAgICANCiAgICAgICAgICAgICAgICAgICAgICAgICAgICAgICAgICAgICAgICAgICAgICAg ICAgICAgICAgICAgICAgICAgICAgICAgICAgICAgICAgICAgICAgICAgICAgICAgICAgICANCiAgICAg ICAgICAgICAgICAgICAgICAgICAgICAgICAgICAgIC AgICAgICAgICAgICAgICAgICAgICAgICAgICAgICAgICAgICAgICAgICAgICAgICAgICAgICAgICAgIC AgICANCiAgICAgICAgICAgICAgICAgICAgICAgICAgICAgICAgICAgICAgICAgICAgICAgICAgICAgIC AgICAgICAgICAgICAgICAgICAgICAgICAgICAgICAg ICAgICAgICAgICAgICANCiAgICAgICAgICAgICAgICAgICAgICAgICAgICAgICAgICAgICAgICAgICAg ICAgICAgICAgICAgICAgICAgICAgICAgICAgICAgICAgICAgICAgICAgICAgICAgICAgICAgICANCiAg ICAgICAgICAgICAgICAgICAgICAgICAgICAgICAgIC AgICAgICAgICAgICAgICAgICAgICAgICAgICAgICAgICAgICAgICAgICAgICAgICAgICAgICAgICAgIC AgICAgICANCiAgICAgICAgICAgICAgICAgICAgICAgICAgICAgICAgICAgICAgICAgICAgICAgICAgIC AgICAgICAgICAgICAgICAgICAgICAgICAgICAgICAg ICAgICAgICAgICAgICAgICANCiAgICAgICAgICAgICAgICAgICAgICAgICAgICAgICAgICAgICAgICAg ICAgICAgICAgICAgICAgICAgICAgICAgICAgICAgICAgICAgICAgICAgICAgICAgICAgICAgICAgICAN Cjw/bVMjY9zbdUZcdfW3K9cxKk6HBz4BVL2cq3IoYN ZhJRuexpFbGmrYKjCgUMEpBonCPcp3FYgbTA1YbLZfV0IeY9MxOWjaGS6DFHChZEDuePZfDZMiQZFbKb Q7HMUzEKdvCE8XfWPlSSolSRHxTZGvDO9WJYBpH827ovIaSP9DSe2JScTaMJ4xiz9JVlYbONQjBmeJSp s1PMrnZA7CwLMhL3SewLVmc6xJVkBmG6PHURKvUISt Ey6EDGSlKhEfDQDtEOonHN8aNXLkQQKTfZlcovW8YP8GYG7baqGxHL0YMjGcOa7hEe0CTqRhE4XdY5Wo EXOtYKRFVJuyQC0RSTEzXPA6EYMaZfBpENPZYmQmR17dNV0OY4Vrh37vIsC4YGSeSiIkVGaxQW63xTvn bxPvlMMhdBerCP8SDn9+DQplbmRvYmoNCnhyZWYNCj KfIuZFFlEoSSKxCFHnWQGqRgT6UnUiCw6XDIBoUOGnBWFlFmRmDPGfPSXkGQjfBPKsVGMsTXNwRQQwJO YtSK8RMnZzXZAtGdD3RAftQHKiTMHwvm7LEPDfZOZtZDE2FLErGVLxHHYiOWooSAPiQSXgRgRoMFWaWB SyET5WSxHwRPNvMOH4EeYrNVNxFCIpjj8RDWAySEWs Hln0IPOwLLFnXZCyJSquRUBaRQIeKCfySXYuOVWrGI9UYrElCHZhCDIyOkOmVPAlWDBjnn4YHGBpPALh FCGiLDBdKCUoRBWwUHnzZNSvCRN5CaJjYTOaVAPwHJ5WIhSvAUKoHNF5WQbtTYYlNKJycb7VMLGuNVFk YJE2SoFhNWSmKCPlZJriVZHuSXOtXajgVIRpHSRxNT 8ZIaPeNUHuQKN7WNRsJCSbNEHipi2GSURdXCXxROOxTmNlHNTrXFVsLKoxNYKgUCMwXhb9RAFzDANyAZ 9GLnSvTNMqIVIoTuKyIESzYWAezv5IVUQoYDOrJiMeTnXvAYVeAFSdRFnhTZLsXNZjWXy5OBOoDBVuAK 4NLcQvSDJuVAy8BoMdMZJqRYTwjc7MWYZdKXBePgRj AKGoTZPxAPYvNWyeYFSjXQXbZEP6TQUeFUFsCZ5LFyPdBBSsHpP2CZWsSOGzOQHymz6TfFSpnChvnf5R XKiLBe0XvQhsQEG2RWciTj8ftBAuXDQlSIKSSm4PccNeKLUoUDLVEZwqZCNjPYhiODrzZBSoMTu1Ggbd Usd8DUknXDk3JXlsPhRdEbwtJnC9F8UrCaW7UDV1IR mfHtIfUGgtOPHhIOA9VIA8CxSdHBB+XW3aSZw+Nx2Gp3DkayG2ysFdWQpmTLR2Ul2ISQGNE4DESy== ID Date Data Source [id number] 08/17/2020 12:13:16 PM EDT [facility] SPECIMEN DESCRIPTION TISSUE ICD POCKETSPECIAL REQUESTS NONEACID FAST SMEAR NO ACID FAST BACILLI (CONCENTRATED SMEAR)CULTURE RESULTS NO ACID FAST BACILLI ISOLATED AFTER 8 WEEKSREPORT STATUS FINAL 08/17/2020 Name Value Range Interpretation Code Description Data Evelin rce(s) Supporting Document(s) ID Date Data Source [id number] 08/17/2020 12:13:16 PM EDT [facility] SPECIMEN DESCRIPTION TISSUE LEAD 1 ATRIALSPECIAL REQUESTS NONEACID FAST SMEAR NOT DONECULTURE RESULTS NO ACID FAST BACILLI ISOLATED AFTER 8 WEEKSREPORT STATUS FINAL 08/17/2020 Name Value Range Interpretation Code Description Data Evelin rce(s) Supporting Document(s) ID Date Data Source [id number] 08/17/2020 12:13:16 PM EDT [facility] SPECIMEN DESCRIPTION TISSUE LEAD 2SPECIAL REQUESTS NONEACID FAST SMEAR NOT DONECULTURE RESULTS NO ACID FAST BACILLI ISOLATED AFTER 8 WEEKSREPORT STATUS FINAL 08/17/2020 Name Value Range Interpretation Code Description Data Evelin rce(s) Supporting Document(s) ID Date Data Source [id number] 07/27/2020 11:29:41 AM EST [facility] SPECIMEN DESCRIPTION TISSUE LEAD 2SPECIAL REQUESTS NONECULTURE RESULTS NO FUNGUS ISOLATED AFTER 5 WEEKSREPORT STATUS FINAL 07/27/2020 Name Value Range Interpretation Code Description Data Evelin rce(s) Supporting Document(s) ID Date Data Source [id number] 07/27/2020 11:29:41 AM EST [facility] [place] SPECIMEN DESCRIPTION TISSUE ICD POCKETSPECIAL REQUESTS NONECULTURE RESULTS NO FUNGUS ISOLATED AFTER 5 WEEKSREPORT STATUS FINAL 07/27/2020 Name Value Range Interpretation Code Description Data Evelin rce(s) Supporting Document(s) ID Date Data Source [id number] 07/27/2020 11:29:41 AM EST [facility] [place] SPECIMEN DESCRIPTION TISSUE LEAD 1 ATRIALSPECIAL REQUESTS NONECULTURE RESULTS NO FUNGUS ISOLATED AFTER 5 WEEKSREPORT STATUS FINAL 07/27/2020 Name Value Range Interpretation Code Description Data Evelin rce(s) Supporting Document(s) ID Date Data Source [id number] 06/27/2020 11:56:44 AM EST [facility] [place] SPECIMEN DESCRIPTION MEAL PACKER 2SPECIAL REQUESTS NONECULTURE RESULTS NO GROWTH 5 DAYSREPORT STATUS FINAL 06/27/2020 Name Value Range Interpretation Code Description Data Evelin rce(s) Supporting Document(s) ID Date Data Source [id number] 06/27/2020 11:56:34 AM EST [facility] [place] SPECIMEN DESCRIPTION MEAL PACKER 1 ATRIALSPECIAL REQUESTS NONECULTURE RESULTS NO GROWTH 5 DAYSREPORT STATUS FINAL 06/27/2020 Name Value Range Interpretation Code Description Data Evelin rce(s) Supporting Document(s) ID Date Data Source [id number] 06/27/2020 11:55:34 AM EST [facility] [place] SPECIMEN DESCRIPTION TISSUE ICD POCKETSPECIAL REQUESTS NONECULTURE RESULTS NO ANAEROBES ISOLATED AFTER 5 DAYSREPORT STATUS FINAL 06/27/2020 Name Value Range Interpretation Code Description Data Evelin rce(s) Supporting Document(s) ID Date Data Source [id number] 06/27/2020 11:55:28 AM EST [facility] HOPPER SPECIMEN DESCRIPTION TISSUE ICD POCKETSPECIAL REQUESTS NONEGRAM STAIN RARE (<1/LPF) WHITE BLOOD CELLS NO BACTERIACULTURE RESULTS NO GROWTH 5 DAYSREPORT STATUS FINAL 06/27/2020 Name Value Range Interpretation Code Description Data Evelin rce(s) Supporting Document(s) ID Date Data Source [id number] 06/22/2020 08:27:07 PM EST [facility]OPPER SPECIMEN DESCRIPTION TISSUE LEAD 2SPECIAL REQUESTS NONECULTURE RESULTS TEST(S) PROCESSED UNDER NEW ENTRY PLEASE SEE [facility] [id number]. [id number] STATUS FINAL 06/22/2020 Name Value Range Interpretation Code Description Data Evelin rce(s) Supporting Document(s) ID Date Data Source [id number] 06/22/2020 08:29:12 PM EST [facility] [place] SPECIMEN DESCRIPTION TISSUE LEAD 1 ATRIALSPECIAL REQUESTS NONECULTURE RESULTS TEST(S) PROCESSED UNDER NEW ENTRY PLEASE SEE [facility] [id number]. [id number].REPORT STATUS FINAL 06/22/2020 Name Value Range Interpretation Code Description Data Evelin rce(s) Supporting Document(s) ID Date Data Source [id number] 06/22/2020 08:28:52 PM EST [facility] [place] SPECIMEN DESCRIPTION TISSUE LEAD 1 ATRIALSPECIAL REQUESTS NONEGRAM STAIN NOT DONECULTURE RESULTS TEST(S) PROCESSED UNDER NEW ENTRY PLEASE SEE [facility] [id number]. [id number] [phone].REPORT STATUS FINAL 06/22/2020 Name Value Range Interpretation Code Description Data Evelin rce(s) Supporting Document(s) ID Date Data Source [id number] 06/22/2020 08:28:12 PM EST [facility] [place] SPECIMEN DESCRIPTION TISSUE LEAD 2SPECIAL REQUESTS NONEGRAM STAIN NOT DONECULTURE RESULTS TEST(S) PROCESSED UNDER NEW ENTRY PLEASE SEE [facility] [id number]. [id number] STATUS FINAL 06/22/2020 Name Value Range Interpretation Code Description Data Evelin rce(s) Supporting Document(s) ID Date Data Source [id number] 06/22/2020 01:05:49 PM EST [facility] NT INFORMATIONPatient MRN Name Date of Age Gend*PT [id number] Jagjit Ibarra 1960 60 years M IPPT Location Admission Date/Time Visit ID Attending Provider --- --- --- --- EPI ID CSN Admitting Prov ider [id number] ---Arterial Line PlacementPatient location during procedure: ORIndications [...] rce(s) Supporting Document(s) ID Date Data Source [id number] 06/22/2020 01:05:28 PM EST [facility] NT INFORMATIONPatient MRN Name Date of Age Gend*PT [id number] Jagjit Ibarra 1960 60 years M IPPT Location Admission Date/Time Visit ID Attending Provider --- --- --- --- EPI ID CSN Admitting Prov ider [id number] ---AirwayPatient location during procedure: ORUrgency: electiveDifficult airway: [...] cmPlacement verified by: chest auscultation and + [id number]: CTA and equal breath sounds bilateralGrade view: grade IIa - partial view of glottis Name Value Range Interpretation Code Description Data Evelin rce(s) Supporting Document(s) ID Date Data Source [id number] 06/23/2020 10:08:18 AM EST [facility] SPEC EXP DATE 06/25/2020ATI ENT ABO/Rh O POSITIVEANTIBODY SCREEN NEGATIVETESTING SITE PERFORMED AT [address] [place] [address] [place] [address]ZNIO NUMBER [id number] COMPONENT TYPE LEUKOPOOR RED CELLSUNIT DIVISION 00STATUS OF UNIT REL FROM ALLOCTRANSFUSION STATUS OK TO TRANSFUSECROSSMATCH RESULT COMPATIBLEUNIT NUMBER [id number] COMPONENT TYPE LEUKOPOOR RED CELLSUNIT DIVISION 00STATUS OF UNIT REL FROM ALLOCTRANSFUSION STATUS OK TO TRANSFUSECROSSMATCH RESULT COMPATIBLE Name Value Range Interpretation Code Description Data Evelin rce(s) Supporting Document(s) TYPE AND SCREEN [facility] [place] ID Date Data Source [id number] 06/22/2020 11:32:57 AM EST [facility] Name Value Range Interpretation Code Description Data Evelin rce(s) Supporting Document(s) POC NOVA GLU 184 mg/dL (70-99) H [facility] [place] PERFORMED BY [facility] CLINICAL STAFF ID Date Data Source [id number] 06/28/2020 11:53:01 AM EST [facility] [place] SPECIMEN DESCRIPTION PERIPHERALSP ECIAL REQUESTS NONECULTURE RESULTS NO GROWTH 6 DAYSREPORT STATUS FINAL 06/28/2020 Name Value Range Interpretation Code Description Data Evelin rce(s) Supporting Document(s) ID Date Data Source [id number] 06/28/2020 11:53:01 AM EST [facility] SPECIMEN DESCRIPTION PERIPHERALSP ECIAL REQUESTS NONECULTURE RESULTS NO GROWTH 6 DAYSREPORT STATUS FINAL 06/28/2020 Name Value Range Interpretation Code Description Data Evelin rce(s) Supporting Document(s) ID Date Data Source [id number] 06/22/2020 07:33:56 AM EST [facility] Name Value Range Interpretation Code Description Data Evlein rce(s) Supporting Document(s) POC NOVA GLU 183 mg/dL (70-99) H [facility] [place] PERFORMED [facility] CLINICAL STAFF ID Date Data Source [id number] 06/22/2020 07:27:58 AM EST [facility]PAT[facility] NT INFORMATIONPatient MRN Name Date of Age Gend*PT [id number] Jagjit Ibarra 1960 60 years M IPPT Location Admission Date/Time Visit ID Attending ProviderCV-04 06/21/20 Sanchez4 --- Kathryn Adelr MD([id number]) EPI ID CSN Admitting Provider [id number] Maury Treviño MD([id number]) Attestation signed by Dillon Fuentes MD at [...] parts of this document, were dictated using [employer]ware. A reasonable attempt at proofreading has been made to minimizeerrors. Please call with any questions or corrections.Signature: Dillon Dietz MD, [facility] UNITCardiac Electrophysiology and Arrhythmia ServiceDate: June 22, 2020Time: 7:26 AMThis document or parts of this document, were dictated using [employer]. A reasonable attempt at proofreading has been [...] mitral valveregurgitations.- Anxiety and depressionPatient [facility] with complaining of left-sided chest painaround 3 [...] wasdepleted since 2018. Patient underwent DANIELE at [facility], see resultbelow-There is a small 0.4 x 0.2 vegetation identified on the ICD lead- Normal tricuspid valve- Normal aortic valve- Normal mitral valve- Intact LV functionImpression:ICD lead infectionRecommendation:Explant systemPatient denies fever, chills, shortness of breath, chest pain, chest pressure orpalpitations. Patient is transferred to [facility] for ICD system extraction. Last doseof Eliquis [...] file Gets together: Not on file Attends jewish service: Not on file Active member of [...] rce(s) Supporting Document(s) ID Date Data Source [id number] 06/22/2020 07:18:20 AM EST [facility] [place] Name Value Range Interpretation Code Description Data [facility] rce(s) Supporting Document(s) SODIUM 141 mmol/L (136-145) [facility] POTASSIUM 3.9 mmol/L (3.6-5.2) [facility] CHLORIDE 105 mmol/L (100-108) [facility] CO2 29 mmol/L (22-31) [facility] ANION GAP 7 mmol/L (7-16) [facility] UREA NITROGEN 17 mg/dL (7-24) [facility] CREATININE 0.96 mg/dL (0.80-1.30) [facility] BUN/CREAT RATIO 17.7 RATIO (10.0-20.0) [facility] GLUCOSE 179 mg/dL (70-99) H [facility] [place] CALCIUM 9.3 mg/dL (8.4-10.2) [facility] GFR >60 ml/min/1.73m2 (>59) [facility] GFR ( AMER) >60 ml/min/1.73m2 (>59) [facility] GFR INTERPRETATION [facility] --NORMAL KIDNEY FUNCTION OR MILD DISEASE - GFR >OR= 60CHRONIC KIDNEY DISEASE - GFR 15 - 59RENAL FAILURE - GFR <15 Est. GFR calculation based on the MDRDstudy equation, which assumes a steadystate for creatinine. Est. GFR should notbe used for medication dosing. ID Date Data Source [id number] 06/22/2020 06:25:42 AM EST [facility] [place] Name Value Range Interpretation Code Description Data Evelin rce(s) Supporting Document(s) WBC 5.8 10*3/uL (4.1-11.0) [facility] [place] RBC 3.71 10*6/uL (4.60-6.10) L [facility] [place] HGB 11.1 g/dL (13.5-18.0) L [facility] [place] HCT 31.5 % (41.0-53.0) L [facility] [place] MCV 84.9 fL (80.0-95.0) [facility] [place] MCH 29.8 pg (27.0-32.0) [facility] [place] MCHC 35.1 g/dL (32.0-36.0) [facility] [place] RDW 13.3 % (10.5-14.5) [facility] [place] PLT 237 10*3/uL (150-450) [facility] [place] MPV 7.6 fL (7.1-10.7) [facility] ID Date Data Source [id number] 06/21/2020 09:25:57 PM EST [facility] Name Value Range Interpretation Code Description Data Evelin rce(s) Supporting Document(s) APTT 26.9 s (22.0-34.3) [facility] [place] ID Date Data Source [id number] 06/21/2020 09:25:57 PM EST [facility] [place] Name Value Range Interpretation Code Description Data Evelin rce(s) Supporting Document(s) PT 12.5 s (9.2-11.9) H [facility] mindy HOPPER INR 1.20 [facility] [place] SUGGESTED THERAPEUTIC RANGES USING INR F ORSTABILIZED ANTICOAGULATED PATIENTS:STANDARD DOSE THERAPY INR 2.0-3.0 DVT, PE, PREVENT DVT OR EMBOLISMHIGH DOSE THERAPY INR 2.5-3.5 PREVENT EMBOLISM FROM MECHANICAL HEART VALVE ID Date Data Source [id number] 06/21/2020 06:23:37 PM EST [facility] Name Value Range Interpretation Code Description Data Evelin rce(s) Supporting Document(s) POC NOVA GLU 256 mg/dL (70-99) H [facility] [place] PERFORMED BY [facility] CLINICAL STAFF ID Date Data Source [id number] 06/21/2020 06:03:32 PM EST [facility] InstitutePATIE NT INFORMATIONPatient MRN Name Date of Age Gend*PT [id number] Fred Jagjit 1960 60 years M IPPT Location Admission Date/Time Visit ID Attending ProviderCV-06/21/20 1444 --- Park Rocha MD([id number]) EPI ID CSN Admitting Provider [id number] Maury Treviño MD([id number])Inpatient History & PhysicalLewis EldertonMRN:[id number] and Plan:Active Problems: Coronary artery disease due to lipid rich plaque Infected defibrillator Paroxysmal atrial fibrillation1. 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 Hewas transferred to [facility], he underwent for DANIELE and found tohave [...] Labs, Imaging and Other Diagnostics:Diagnostic tests reviewed:Signature: PAM Moraate: June 21, 2020Time: 4:48 PM Name Value Range Interpretation Code Description Data Evelin rce(s) Supporting Document(s) ID Date Data Source [id number] 06/21/2020 07:43:25 PM EST [facility] Name Value Range Interpretation Code Description Data Evelin rce(s) Supporting Document(s) HEMOGLOBIN A1C @ 9.0 % (4.0-6.0) H Lab [facility] Performed using Siemens [place] Sk[place] y.Care must be taken when interpreting HpE5dvyvsjvt in patients with a hemoglobin variantor decreased erythrocyte lifespan. Values 5.7 - 6.4% suggest prediabetes.Values >=6.5% are diagnostic for diabetes.REFERENCE: DIABETES CARE 2018: 41(S13-S27).PERFORMED AT [address] [place] [address] EST AVERAGE GLUCOSE 212 mg/dL Lab [facility] ID Date Data Source [id number] 06/21/2020 03:49:24 PM EST [facility] Name Value Range Interpretation Code Description Data Evelin rce(s) Supporting Document(s) Discharge Summary [facility] JLXSPu0yXnEBMmPi59/TPNxnUQKlz7EtAYzbDXy7RLsoDRBnJ8RnVAZ8rG1aXXR6YXfHNmXnIdPxAHW4 [facility] [file] ixJqF2IcsphOxRJsZXFU4Od6N6bsXmw2wb0X0n++test borer helper [file] [id number]PTL2PTRn== ID Date Data Source [id number] 06/21/2020 03:45:00 PM EST [facility] Name Value Range Interpretation Code Description Data Evelin rce(s) Supporting Document(s) SARS coronavirus 2 RNA [Presence] in Res piratory specimen by PARMJIT with probe detection NOT DETECTED [facility] This lab was reported by [facility]. ID Date Data Source [id number] 06/21/2020 08:29:47 PM EST Lab [facility] Name Value Range Interpretation Code Description Data Evelin rce(s) Supporting Document(s) SPECIMEN DESCRIPTION [facility] (NDET) [facility] THIS ASSAY AMPLIFIES AND DETECTSTHE TARG ET RNA USING REAL-TIME PCR.TESTING PERFORMED ON [facility] GENEXPERTNEGATIVE 2019_NCOV RT-PCR RESULTS DONOT PRECLUDE 2019_NCOV INFECTION ANDSHOULD NOT BE USED THE SOLE BASISFOR PATIENT MANAGEMENT DECISIONS. COMMENT [facility] [place] LABORATORY [employer] [place] APPROVED B Y THE [place]OH. THE [place].S. FOODAND DRUG ADMINISTRATION HAS NOT APPROVEDTHIS TEST. NEGATIVE RESULTS DO NOT TYFFOKOCFGHE-QDM-8 INFECTION AND SHOULD NOT BEUSED THE SOLE BASIS FOR CLINICALDIAGNOSIS OR PATIENT MANAGEMENT DECISIONS. FIRST TEST [facility] [place] EMPLOYED IN HLTHCARE [facility] [place] SYMPTOMATIC [facility] [place] DATE OF SYMPT ONSET [facility] [place] HOSPITALIZED [facility] ICU [facility] [place] CONGREGATE CARE SET [facility] [place] [facility] [place] ID Date Data Source [id number] 06/21/2020 02:04:13 PM EST [facility] Name Value Range Interpretation Code Description Data Evelin rce(s) Supporting Document(s) Nursing Note [facility] ZZYDXe0nQdLMLeBj71/JPGnmRYGlo3HjXEasWTa8SXqrGUEpA2PcRXM1nF4bWGR4FPbINfMiRgDmFKH0 lbm XbIaiBUxUqCAFlIdnPLhFuGEubRgkdgYCpNP3XkBG5MBPlK86uIATeVQDiP4SkHGh1IS0+JFzxRLM5wi NekR8AFBWXFSAM6uODiu+0/3ZMN0EHxeKzvjVNNJTZacPosZq4DLkJFOnYdb3k86hUGEY2DT3GFXLtjd Pvvs/+aTs8QgD+7qCnAsYYlP/rVxUKuJzBxw/QuHli 2wj3RfaSMWdjfyLMep0/YCPKQQCG8uzwjVZPF7me8KBSe71tWxaJS8VOPt2qqbVHrt5J6VTN/j8TGi6U ndjcWCbXvzE84LgKpcQpof7VrpW9niRFoRoaMpNBkXHsmpbUYxLqjArPHCVfUoy3nSCrA0C3h584mjMJ WDEmxUAXOPLBmCy0+N9lPNXhOg9SBsxbmPWRU3HWRA uNw2581cbHz9bvitQK8OqPlGlCuZIBKhlZaTB2t4wjw3oum62QQV8EBnuaIUR9KrYvY1xKkvbWhCSttG 64SmVQRXofovVb1J0TRbElGYiWc1b5PA02TVNjPbDayTsokCJsILpYZ/[place]+TROYzhIZ+fpNoyOXndtvt [file] 6O4lhe5Q+w9WpfQu7TAb69ETHXLmDn26ws81I1+carton counter feeder [file] MeZdFTLjNZEoHxX2AdYyKA7ZLl3QIuS9EVZ0tEBdEg5FJfO7USKQUwFmGY3SLFd= ID Date Data Source [id number] 06/21/2020 01:17:53 PM EST [facility] Name Value Range Interpretation Code Description Data Evelin rce(s) Supporting Document(s) Progress Notes [facility] OFJIOk0wNgRLTgFx66/VXLpePJImy9DdNEsoELs4KEpqWIWzA0XzHIB9nU4uJKQ6ETsBKhZaMiSgZZZ9 lbm [file] [id number]uRyHM4PQQh= ID Date Data Source [id number] 06/21/2020 07:36:00 AM EST [facility] Name Value Range Interpretation Code Description Data Evelin rce(s) Supporting Document(s) Glucose, Fingerstick 183 mg/dl 70-110 Above high normal [facility] The above 1 analytes were performed by [facility] [id number] [place] [address],[facility]#: [id number],[place] [address] ID Date Data Source [id number] 06/21/2020 05:58:00 AM EST [facility] Name Value Range Interpretation Code Description Data Evelin rce(s) Supporting Document(s) WBC 7.08 x1000/ul 4.80-10.00 Normal (applies to non-numeric re sults) [facility] RBC 3.93 x1Mil/ul 4.70-6.10 Below low normal [facility] Hemoglobin 11.4 g/dl 14.0-18.0 Below low normal [facility] Hematocrit 34.5 % 42.0-52.0 Below low normal [facility] MCV 87.8 fL 80.0-94.0 Normal (applies to non-numeric resul ts) [facility] MCH 29.0 pg 27.0-31.0 Normal (applies to non-numeric resul ts) [facility] MCHC 33.0 g/dl 32.2-37.0 Normal (applies to non-numeric resul ts) [facility] RDW 12.2 % 11.5-14.5 Normal (applies to non-numeric resul ts) [facility] Platelet Count 285 x1000/ul 130-400 Normal (applies to non-numeric results) [facility] MPV 9.6 fL 9.4-12.4 Normal (applies to non-numeric resul ts) [facility] Nucleated RBCs 0.00 % 0.00-0.20 Normal (applies to non-numeric r esults) [facility] Abs. Nucleated RBCs 0.00 x1000/ul 0.00-0.02 Normal (appl ies to non-numeric results) [facility] The above 12 analytes were performed by [facility] [id number] [place] [address], ,[place] [address] ID Date Data Source [id number] 06/21/2020 05:49:00 AM EST [facility] Name Value Range Interpretation Code Description Data Evelin rce(s) Supporting Document(s) Magnesium 2.0 mg/dl 1.6-2.6 Normal (applies to non-numeric resul ts) [facility] The above 1 analytes were performed by [facility] [id number] [place] [address], ,[place] [address] ID Date Data Source [id number] 06/21/2020 05:49:00 AM EST [facility] Name Value Range Interpretation Code Description Data Evelin rce(s) Supporting Document(s) AST 26 IU/L 15-37 Normal (applies to non-numeric resul ts) [facility] Sulfasalazine and sulfapyridine have the potential to falsely depressAspartate Aminotransferase results. Baseline values before medication administration are recommended. ALT 28 IU/L 16-61 Normal (applies to non-numeric resul ts) [facility] Sulfasalazine and sulfapyridine have the potential to falsely depressAlanine Aminotransferase results. Baseline values before medication administration are recommended. Alkaline Phosphatase 108 mIU/ml 50-136 Normal (applies to n on-numeric results) [facility] Total Bilirubin 0.90 mg/dl 0.20-1.00 Normal (applies to non-numeric results) [facility] Blood Urea Nitrogen 18 mg/dl 7-18 Normal (applies to non-nume kamilah results) [facility] Creatinine 0.92 mg/dl 0.67-1.17 Normal (applies to non-numeric resul ts) [facility] N-Acetylcysteine (NAC) and Metamizole bradley ve the potential to falselydepress Creatinine results. Baseline values before medication adminstration are recommended. Patients undergoing treatment with phenindione will have falselydepressed results. Patients on phenindione therapy should be tested with an alternativeCREA method.Toxic levels of acetaminophen may lead to falsely depressed results forpatient samples. Glomerular Filtration Rate 84.00 mL/min/1.73m2 [facility] GFR Reference Ranges:Normal Function or Mild Renal [...] of Health and the National KidneyFoundation. The [place] method used in calculating this result is traceable to IDNY standards. Glucose 175 mg/dl 70-110 Above high normal [facility] Sulfasalazine has the potential to false ly depress Glucose results. Sulfapyridine has the potential to falsely elevate Glucose results. Baseline values before medication administration are recommended. Calcium 9.6 mg/dl 8.5-10.1 Normal (applies to non-numeric resul ts) [facility] Total Protein 7.7 g/dl 6.4-8.2 Normal (applies to non-numeric re sults) [facility] Albumin 3.0 g/dl 3.4-5.0 Below low normal [facility] Sodium 138 mEq/L 136-145 Normal (applies to non-numeric resul ts) [facility] Potassium 3.9 mEq/L 3.5-5.1 Normal (applies to non-numeric resul ts) [facility] Chloride 104.0 mEq/L 98.0-107.0 Normal (applies to non-numeric resu lts) [facility] Carbon Dioxide 29.2 mMol/L 21.0-32.0 Normal (applies to non-numeric results) [facility] Anion Gap 8.7 7.0-15.0 Normal (applies to non-numeric resul ts) [facility] The above 16 analytes were performed by [facility] [id number] [place] [address], ,[place] [address] ID Date Data Source [id number] 06/20/2020 07:57:00 PM EST [facility] Name Value Range Interpretation Code Description Data Evelin rce(s) Supporting Document(s) Glucose, Fingerstick 226 mg/dl 70-110 Above high normal [facility] The above 1 analytes were performed by Lucy [facility] [id number] [place] [address], ,[place] [address] ID Date Data Source [id number] 06/20/2020 05:16:00 PM [facility] Name Value Range Interpretation Code Description Data Evelin rce(s) Supporting Document(s) Glucose, Fingerstick 282 mg/dl 70-110 Above high normal [facility] The above 1 analytes were performed by [facility] [id number] [place] [address], ,[place] [address] ID Date Data Source [id number] 06/20/2020 04:52:23 PM [facility] Name Value Range Interpretation Code Description Data Evelin rce(s) Supporting Document(s) Progress Notes [facility] DBMXNw0rSdKLJuFs23/JSFwgKKYkx2LfPXniHYd1TKygJFYvX7LnQVZ9bH5yRYX2KNhFRxRsKqKnJNY3 lbm [file] [id number] ID Date Data Source [id number] 06/20/2020 02:30:00 PM EST [facility] Name Value Range Interpretation Code Description Data Evelin rce(s) Supporting Document(s) Glucose, Fingerstick 282 mg/dl 70-110 Above high normal [facility] The above 1 analytes were performed by [facility] [id number] [place] [address],[facility]#: [id number],[place] [address] ID Date Data Source [id number] 06/20/2020 11:14:28 AM EST [facility] Name Value Range Interpretation Code Description Data Evelin rce(s) Supporting Document(s) Progress Notes [facility] RHCGLi4jJwSUPpIj29/YPFtvWGPhz0QiDVqsNNw7DByrRYFlB9XpRLF7oY0cXEH0QHqBRuTfCzLoCZP2 lbm [file] o= ID Date Data Source [id number] 06/20/2020 07:32:00 AM EST [facility] Name Value Range Interpretation Code Description Data Evelin rce(s) Supporting Document(s) Glucose, Fingerstick 219 mg/dl 70-110 Above high normal [facility] The above 1 analytes were performed by [facility] [id number] [place] [address] [id number],[place] [address] ID Date Data Source [id number] 06/20/2020 05:25:00 AM EST [facility] Name Value Range Interpretation Code Description Data Evelin rce(s) Supporting Document(s) Blood Urea Nitrogen 20 mg/dl 7-18 Above high normal [facility] Creatinine 0.90 mg/dl 0.67-1.17 Normal (applies to non-numeric resul ts) [facility] N-Acetylcysteine (NAC) and Metamizole bradley ve the potential to falselydepress Creatinine results. Baseline values before medication adminstration are recommended. Patients undergoing treatment with phenindione will have falselydepressed results. Patients on phenindione therapy should be tested with an alternativeCREA method.Toxic levels of acetaminophen may lead to falsely depressed results forpatient samples. Glomerular Filtration Rate 86.00 mL/min/1.73m2 [facility] GFR Reference Ranges:Normal Function or Mild Renal [...] of Health and the National KidneyFoundation. The [place] method used in calculating this result is traceable to IDMS standards. Glucose 210 mg/dl 70-110 Above high normal [facility] Sulfasalazine has the potential to false ly depress Glucose results. Sulfapyridine has the potential to falsely elevate Glucose results. Baseline values before medication administration are recommended. Calcium 9.2 mg/dl 8.5-10.1 Normal (applies to non-numeric resul ts) [facility] Sodium 136 mEq/L 136-145 Normal (applies to non-numeric resul ts) [facility] Potassium 4.1 mEq/L 3.5-5.1 Normal (applies to non-numeric resul ts) [facility] Chloride 102.0 mEq/L 98.0-107.0 Normal (applies to non-numeric resu lts) [facility] Carbon Dioxide 29.9 mMol/L 21.0-32.0 Normal (applies to non-numeric results) [facility] Anion Gap 8.2 7.0-15.0 Normal (applies to non-numeric resul ts) [facility] The above 10 analytes were performed by [facility] [id number] [place] [id number] [address] ID Date Data Source [id number] 06/20/2020 05:06:00 AM EST [facility] Name Value Range Interpretation Code Description Data Evelin rce(s) Supporting Document(s) WBC 7.23 x1000/ul 4.80-10.00 Normal (applies to non-numeric re sults) [facility] RBC 4.04 x1Mil/ul 4.70-6.10 Below low normal [facility] Hemoglobin 11.8 g/dl 14.0-18.0 Below low normal [facility] Hematocrit 35.4 % 42.0-52.0 Below low normal [facility] MCV 87.6 fL 80.0-94.0 Normal (applies to non-numeric resul ts) [facility] MCH 29.2 pg 27.0-31.0 Normal (applies to non-numeric resul ts) [facility] MCHC 33.3 g/dl 32.2-37.0 Normal (applies to non-numeric resul ts) [facility] RDW 12.3 % 11.5-14.5 Normal (applies to non-numeric resul ts) [facility] Platelet Count 276 x1000/ul 130-400 Normal (applies to non-numeric results) [facility] MPV 9.1 fL 9.4-12.4 Below low normal [facility] Neutrophils 61.9 % 40.0-74.0 Normal (applies to non-numeric resu lts) [facility] Lymphocytes 28.2 % 19.0-48.0 Normal (applies to non-numeric resu lts) [facility] Monocytes 7.3 % 3.4-9.0 Normal (applies to non-numeric resul ts) [facility] Eosinophils 1.2 % 0.0-7.0 Normal (applies to non-numeric resu lts) [facility] Basophils 0.7 % 0.0-2.0 Normal (applies to non-numeric resul ts) [facility] Immature Granulocytes 0.7 % 0.0-0.5 Above high normal [facility] Nucleated RBCs 0.00 % 0.00-0.20 Normal (applies to non-numeric r esults) [facility] Abs. Neutrophils 4.47 x1000/ul 1.92-8.31 Normal (applies to non-numeric results) [facility] Abs. Lymphocyte 2.04 x1000/ul 1.20-3.70 Normal (applies to non-n umeric results) [facility] Abs. Monocytes 0.53 x1000/ul 0.14-0.97 Normal (applies to non-nu meric results) [facility] Abs. Eosinophils 0.09 x1000/ul 0.00-0.76 Normal (applie s to non-numeric results) [facility] Abs. Basophils 0.05 x1000/ul 0.00-0.22 Normal (applies to non-n umeric results) [facility] Abs. Immature Gran. 0.05 x1000/ul 0.00-0.02 Above high normal [facility] Abs. Nucleated RBCs 0.00 x1000/ul 0.00-0.02 Normal (appl ies to non-numeric results) [facility] The above 24 analytes were performed by [facility] [id number] [facility], ,[place] [address] ID Date Data Source [id number] 06/19/2020 09:12:00 PM EST [facility] Name Value Range Interpretation Code Description Data Evelin rce(s) Supporting Document(s) Glucose, Fingerstick 250 mg/dl 70-110 Above high normal [facility] The above 1 analytes [facility] [id number] [facility], ,[place] [address] ID Date Data Source [id number] 06/19/2020 04:44:39 PM EST [facility] Name Value Range Interpretation Code Description Data Evelin rce(s) Supporting Document(s) Progress Notes [facility] DODNYf2iMfKMTtHc62/PSKmoSLIop2TeIAxuDLj9BUhtWRDgU3EkTVQ4rP8zYSH1TEmPMmKpKfZmGVA3 m [file] SLSTOP/JCIYBaPFGUFKRMoPzTXbC4/U5X18cIBijG82r5Zomcd89OYZHl05wcOVSGvYDCMWRY0nwmuzS lr1SiuoPyCAmXIXnH0/8MxC6YhryrCw4QHqrU05ZRhKmZ1sR9Yf6NwmbGKk8GfkqNJjEUn8YFd+w0eM8 1Iyg7h7vogrUGe07ATlWOTndYhMWoyX5LqHuituqdd tHUg+vdxk6Thz4Nwiek3lmXJ5xxRKhJCdGmnLIwuClhs3a46XQruR2E9FP5uFZsnCytoscPv2HiDWIKX GCPxUHVQUVf50CXe6jfH3O+nYWtibxM9w/LAB36i9N9fOCO84mFti+uA3koEA8i0PKUFWM1V1+ZTbL8z Shd+R3kHTGJFp+8ldAqwXE2o9jFa8bS+llSxL02Jlb nuPpjOeQr5mDj1UL4Pyco3sf2/5vOBv0pVv5D9Ov+0cUCs+BdS3pHS60AObfSG7w5iCJIrf7Jo7EmAXW DWG+sAPWvRKVLVtjIc2zfPcCbbDYamnrO8FmNshsVNZt2sTzswUehRRLLrhE2m7kKaO/MetGMjxUeeb8 HB72+3KNvGWth+4CdPtkI4a5f+Ohd2bMNq6geOiR4M cc85dDJWlCGIL9mxuBRKfEMmFHmKE04HB+9G1O9s3pqvILwTcG0U1IpDHDCTTC/Ns/8s7OtSp62htO1c yOtq90jFnHVaJKVM4Lri2z28FYonLjCMP3X5B2oaZCgjeTrTPVusorCtfyHvAfsIzAXqSXAOanVWonTw hernández/UAnEDnW0wt4aeJfddHCNV8dX/BW6caNIyvkwj6m [file] PZE5CBZoErGgOVlhYaLcME2mXDHNNb4+XIcwbXOhaHhySLISPmBoKAk8FHxbPBFMPa2A ID Date Data Source [id number] 06/19/2020 04:05:00 PM EST [facility] Name Value Range Interpretation Code Description Data Evelin rce(s) Supporting Document(s) Glucose, Fingerstick 247 mg/dl 70-110 Above high normal [facility] The above 1 analytes were performed by [facility] [address],[facility] [id number],[place] [address] ID Date Data Source [id number] 06/19/2020 03:24:38 PM EST [facility] Name Value Range Interpretation Code Description Data Evelin rce(s) Supporting Document(s) Progress Notes [facility] ENIGCr4aKpGJXxJw85/EVAifXKZmn8XdMTdtKSf8KZlsWHEaA8ZfUMB2aT6mMRS0KVdDGzYaLkBjSSK5 lbm [file] AgICAgICAgICAgICAgICAgICAgICAgICAgICAgICAgICAgICAgICAgICAgICAgICAgICAgICAgICAgIC AgICAgICAgICAgICAgICAgICAgICAgDQogICAgICAgICAgICAgICAgICAgICAgICAgICAgICAgICAgIC AgICAgICAgICAgICAgICAgICAgICAgICAgICAgICAg ICAgICAgICAgICAgICAgICAgICAgICAgICAgICAgICAgDQogICAgICAgICAgICAgICAgICAgICAgICAg ICAgICAgICAgICAgICAgICAgICAgICAgICAgICAgICAgICAgICAgICAgICAgICAgICAgICAgICAgICAg ICAgICAgICAgICAgICAgDQogICAgICAgICAgICAgIC AgICAgICAgICAgICAgICAgICAgICAgICAgICAgICAgICAgICAgICAgICAgICAgICAgICAgICAgICAgIC AgICAgICAgICAgICAgICAgICAgICAgICAgDQogICAgICAgICAgICAgICAgICAgICAgICAgICAgICAgIC AgICAgICAgICAgICAgICAgICAgICAgICAgICAgICAg ICAgICAgICAgICAgICAgICAgICAgICAgICAgICAgICAgICAgDQogICAgICAgICAgICAgICAgICAgICAg ICAgICAgICAgICAgICAgICAgICAgICAgICAgICAgICAgICAgICAgICAgICAgICAgICAgICAgICAgICAg ICAgICAgICAgICAgICAgICAgDQogICAgICAgICAgIC AgICAgICAgICAgICAgICAgICAgICAgICAgICAgICAgICAgICAgICAgICAgICAgICAgICAgICAgICAgIC AgICAgICAgICAgICAgICAgICAgICAgICAgICAgDQogICAgICAgICAgICAgICAgICAgICAgICAgICAgIC AgICAgICAgICAgICAgICAgICAgICAgICAgICAgICAg ICAgICAgICAgICAgICAgICAgICAgICAgICAgICAgICAgICAgICAgDQogICAgICAgICAgICAgICAgICAg ICAgICAgICAgICAgICAgICAgICAgICAgICAgICAgICAgICAgICAgICAgICAgICAgICAgICAgICAgICAg ICAgICAgICAgICAgICAgICAgICAgDQogICAgICAgIC AgICAgICAgICAgICAgICAgICAgICAgICAgICAgICAgICAgICAgICAgICAgICAgICAgICAgICAgICAgIC AvYYGjOQKtYCRuMKYsGZCjFBKqRZPcYLIqGPSqBTPyOLp7I7oiCATzKMZuZF1tIMg7Uh3+DQoNCmVuZH H4xhMnlW9WQT3zc4YvZNbvNSJdu7NjRHy2XX0HVFSq TBsgWR7LAFlrxg2WTLRbVSEgeTDUn1thMfZiFBG3UQPgCxemPQ9NVNAwE5mhzeJmCVZjILKDZE2QNuEp X0QzaL95EEXZRu0+IXtieqOvQtqMOhK1IGXjm0LwUIi2XM3XMECnVimga3MjDuQwLZRFRKdsJW7AFFM2 FYH3CMYhJj8YKRAsY334rdKwYY5GQm7UKyFzNJ7aug 0BCeGaLBXqKywCEwt7MReeET4XxABwZXlAxr9xjbBpeoNGh5MlrsCruVMGNEFobiCAf0C5qdqkMRO7MC RkYlWmOfFlVUTdWfkcQgBBFMoULzKiR8Mba8GnStF9MGIxAxAtYSacLLIhOgA8GZ48xGhrFG4XPCCrIU EaEB78ZLW6MUVmVn7LCx0MAeFoPN7ega9AXddfUOKm AabHNkx6ZDfeWF7NkODhT2IgvGJoa5jXSuJcY4ZTNAPiQEIzIy2EFVHoWeAxGFGrRVpaEX9jFJElLRZM oAznrzK8XT1TXX0tygEdLT8RKpFgVo2kQk2HKjDqP3NmO6WcCFGnMECBDGqpLZ6EEEblVE2sSM8Id7JZ yISixM8axl5QCMJpYNRePxevpk7PUkksW6L3eHqjCP ZrUaWjAPPMQZuiQD4FINWhGFU4CYFbNWSgARHZJqRqQ72gVW9VH4Pux42uWgM0MENoVlIiXOhtNG36fF kubaYtjJJcmQgiJP3ENm4+ZPgrweQhKwhJCyjtCEGHNqSbDjlYShDkGJAwEAAeDADqLyE3ItMkRa7JVC AwMDAwMDAxNyAwMDAwMCBuDQowMDAwMDIwMzUzIDAw TUEoTF3SKlKtYOQxRaTyIBUjNANbFXBrtv6IEEAaFZKjALI8BcKvMSWvGXYhBJenHBXvRUXgTOkqGRGi QYYkFH3GMeEgZHFaCWY5VofqKDPmAXAulz9PAEWxPNArBijmVUFfCTKdRXXdHAxmPGUdJJYyBHZ8JOKw HDMxPA5BOsHlNRAhKMBcBtLsQLNgBEOlvq2SQCYpLG OuLAR6EWDyMWTfVPHiPPkhLNCpTKJ6Iyt8NLPeEOJaIF4HKuGiWVYfAGL1ALrdFHAkNDDsol0IKDOdNO EzLkydKXWgVRAnHNRdPWknVWBeTLC8IXM6WLGeWQVkJY9KDwZvPZMvPXsuCkClPWKpWFLhxd2ZIVMdXD MkDaU2UiSxJDSgXUPaCZngKUCqUIL8OrM8KUXdHUJn RH8DHuClONWvXBb7CmHdYZDnZPYput8PFCBoQSNvPEv1VqKtTXOqYYBkLXoxYIDrCMZ1PJJdHWAnFCIx MU6ALnSfISAgNUd3GoHxYHJtAHBsfi6RMPHvFJRkTXE4EYIeRYIqDOKjVRbdTHQdLYVbPgEuLJYcUSQu QX3YXqMhUCQmIgT7LmDnMTRfEOFrbu1AXJVuAHEzCf JdUWWgGJOtCTXxPJgyTQHsGRZtJxarGUSbLEFvPI3RJjSfFFRbHyD2CJUwWTXfAERzyt1UeMUltPpmom 2VHJkOFc0PmIyvXYR5SBzpSe2cxLQoUzVzKCYRJv3LxuPbQDWjCQEKZZlpQPHxCDJ2TWNqFku8OkL6EN K3XOQpZXbcKzG3C1IgQFOwS2VwVxS5ILz1YCWdZNKf RXpqUMrhE8XwACSuYEYoT3Z8KuN5VAH+IR8aCKo+Mk4Su1KkjgR8vqRxZOvtPuQ1SJ6FJLXKU5JFAh== ID Date Data Source [id number] 06/19/2020 02:46:11 PM EST [facility] Name Value Range Interpretation Code Description Data Evelin rce(s) Supporting Document(s) Progress Notes [facility] ALEYBf0vUqPIJyUz14/PIHteTRZrv5CnHMyuZYy8JRzuLKGkN5VuSFX6pK4qCMJ2HJqBTpBsYdDgQAI5 lbm [file] PvXPL3WTimLWa1F9F1SDOeQwD3D8K6GY8uLMIEMz2+XOfprFAhdGmrBNBMCrI8ADX3POabYHJVPr0S ID Date Data Source [id number] 06/19/2020 02:10:53 PM EST [facility] Name Value Range Interpretation Code Description Data Evelin rce(s) Supporting Document(s) Progress Notes [facility] FDGFYc6wSoBSDaSm47/EGOulLUIek0ZeGKujXWk0ABixPPOrV3NbTKP4xV2dKCS6YKiCYeIrOzAvYFP6 lbm [file] hlN8fiXmAEnhVpq3YS3FPFFQP3LDOw== ID Date Data Source [id number] 06/19/2020 12:16:15 PM [facility] Patient: JAGJIT IBARRA : 1960 MR N: [id number] [facility]: [facility] Provider: LAURA [...] rce(s) Supporting Document(s) ID Date Data Source [id number] 06/19/2020 11:44:00 AM [facility] Name Value Range Interpretation Code Description Data Evelin rce(s) Supporting Document(s) Glucose, Fingerstick 216 mg/dl 70-110 Above high normal [facility] The above 1 analytes were performed by [facility] [id number] [place] [address],[facility] [id number],[place] [address] ID Date Data Source [id number] 06/19/2020 10:56:53 AM [facility] Indication for transesophageal echocardi ography:Bacteremia.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 mower 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:Germán Henry procedure:Informed consent obtained from the [...] rce(s) Supporting Document(s) ID Date Data Source [id number] 06/19/2020 08:25:31 AM [facility] Name Value Range Interpretation Code Description Data Evelin rce(s) Supporting Document(s) Progress Notes [facility] TXFMOm0hUqDQLbIa72/XKYhcAESur9XwFYfzUEr4HBnpQUHlA4FlDTR6yK4jVDA9OBrIGpZfJuScMSO4 lbm [file] ICAgICAgICAgICAgICAgICAgICAgICAgICAgICAgIC AgICAgICAgICAgICAgICAgICAgICAgICAgICAgICAgICAgICAgICAgICAgDQogICAgICAgICAgICAgIC AgICAgICAgICAgICAgICAgICAgICAgICAgICAgICAgICAgICAgICAgICAgICAgICAgICAgICAgICAgIC AgICAgICAgICAgICAgICAgICAgICAgICAgDQogICAg ICAgICAgICAgICAgICAgICAgICAgICAgICAgICAgICAgICAgICAgICAgICAgICAgICAgICAgICAgICAg ICAgICAgICAgICAgICAgICAgICAgICAgICAgICAgICAgICAgDQogICAgICAgICAgICAgICAgICAgICAg ICAgICAgICAgICAgICAgICAgICAgICAgICAgICAgIC AgICAgICAgICAgICAgICAgICAgICAgICAgICAgICAgICAgICAgICAgICAgICAgDQogICAgICAgICAgIC AgICAgICAgICAgICAgICAgICAgICAgICAgICAgICAgICAgICAgICAgICAgICAgICAgICAgICAgICAgIC AgICAgICAgICAgICAgICAgICAgICAgICAgICAgDQog ICAgICAgICAgICAgICAgICAgICAgICAgICAgICAgICAgICAgICAgICAgICAgICAgICAgICAgICAgICAg ICAgICAgICAgICAgICAgICAgICAgICAgICAgICAgICAgICAgICAgDQogICAgICAgICAgICAgICAgICAg ICAgICAgICAgICAgICAgICAgICAgICAgICAgICAgIC AgICAgICAgICAgICAgICAgICAgICAgICAgICAgICAgICAgICAgICAgICAgICAgICAgDQogICAgICAgIC AgICAgICAgICAgICAgICAgICAgICAgICAgICAgICAgICAgICAgICAgICAgICAgICAgICAgICAgICAgIC AgICAgICAgICAgICAgICAgICAgICAgICAgICAgICAg DQogICAgICAgICAgICAgICAgICAgICAgICAgICAgICAgICAgICAgICAgICAgICAgICAgICAgICAgICAg ICAgICAgICAgICAgICAgICAgICAgICAgICAgICAgICAgICAgICAgICAgDQogICAgICAgICAgICAgICAg ICAgICAgICAgICAgICAgICAgICAgICAgICAgICAgIC DlUXIjEWYsXRZrBDZrYTDxZIEfNAVmPMHqXNUuHIRuGXDnYNPeTFYqGBXwZDKoRFSoYUXtFDy6M8bfNM TtLJJjAH2oIGe2Ba3+VGhVGgAcBBU1muGukM2OQJ0nz5MtKNokGZLck0WjANo6NG8RAPFlYTuoHM8PKQ brdu7WQIQjIFAjhZSXi9mxSlLvTUP6YTZrSbwvSY9K DDOtV1usdgMfFZKnWWTKCXfaGLLKFObjUJRRPB0ITiGqW3HonI82UNCUVn5+XQnxrgRoCnuQBuT1BZVg r4NbUPb0PY0RLLZePhzqy8TkWrPcDOHCCHnqYM8PSEC8LNX1XAKoLi5FTUMhA613qgXaIN3DJw0YUiAu EU4uvv5XUkBiBKLfPzaINey3QKyaJP3GtAWzKJkKhn 3zmlZldmQRk7PhbiOstZGNuVMdTZfmWcTuSJ9vWACIXLBysAWuIvQ1NiQpLgDxXPm2GgWuLI3vAVpbZO 4GLWI8NSjpJCUeERGrW0aARxWcXBboBJYscVsrDN6HKbJcG4ByiiNfiUDyXETwCSRIPe9+DQplbmRvYm zXRjF6GQCjg4PuLAa8QX1SRBKoAGxwTE8NPMTvrS3m LDiuOJ2EQcLeIeOmWZERGgVeU55kxZZvJYk0D7IlFwRuUNHiHedsFXGlBGxmRnGxYYLgFnCsOMohFE5+ ID4+VNkeII5EFBkyskXjWWCgRm4EIENsMUIfDP9dWXZnZZEeD2N2oDauCJWNQpTwA4cdsndcEW4eTHHc H736lCjlzsZaIEA9ZIGjLp0SPVOgYXT3VKDxpLVpPe KoPTEUPJpfFC2SoQUbZJU7iP5aBYdmSIUuMYIfQ8xZGmMcfCkcQH41dQwmsuTwuXToGQg+Tk6PPE1cq6 WiUCz2seXiJImeNFN8OPcjAXPcIQLnJGXyDSF0WUG7EDAAMeDvQTHyLMKtUYnoMOSsNUGkzy3RSECjCB AxMjEyNiAwMDAwMCBuDQowMDAwMDEzODgzIDAwMDAw DE4FOjVgDDWoLABfRGmnMQMjATRpvh2KYWUvTGAiIuPwNMUkWUFwIOGxVLjpRCZwNTNcEmP9DDMrDHNx CS5CJuRcXLExFXS3MGYfAXVgGXYlck4MGEUlOMFcLTh7SBQqKEVpMMDdICssTIImEWZ6GML5YLBuLWZb ZL2XCgBdREFbUWJ6NJVbLXKpIODvna2ZXOQcBXVxKs S0UcTbQIJoUGPfPRnwESPdIGJ4KYp0OBZfJSEyCG1SVyLzQWZmFLvyCqPsWGAbBNOarf6IYDEvJHEiCC VxIuGlHPDkXICvTJvpTKXkTQG9TbX5PCKtGVVcML8OGhGcNXDnZKf7DXKxJQVeWEIxwy4HISDmJSBmFT M4BLQyJFVoCOLsDMsxAOVfXTOeJNS4LSDqUKXlUN6M UiJxFHJsOLB0TJczUZToBEMgmb7NTQYoGICzADusZbGdNNFqPVMsRAxiIRXpFULkKPP1OMEwGLOrMH4N WzDaSVCyIZGzXKEmPEBhMZJjsx2ZVECdUOEiGbL9TcIgASQhDXBgGBntESPaEAIrYMrqKFWlJGCbRT7D PjKvVHPkMGYfWmHvCUZwNMFjml5HUAUoTWFpYWEqJf MpCCIvWOGwUHx5ejIqdODzWKk6CD8AN8JduyIuEnoCAn5Pf789ZWU6TJJlUg8YM0yxEb5vEVFnVYAIKh 3NZKe1KLJ9Zqq8JyqiDJe9VBOhUYejNdMcC4M3KAe3UBI0TnV+GLmuVdhtEOkxITL3FPBkAQPoI2R9R7 GzFwy1OKRhTZm6VB8zYCUSYt8+XMzdoMBzsMnkFQZBClY0UFR6NGjlEBPYRf6O ID Date Data Source [id number] 06/19/2020 07:00:00 AM EST [facility] Name Value Range Interpretation Code Description Data Evelin rce(s) Supporting Document(s) Blood Urea Nitrogen 18 mg/dl 7-18 Normal (applies to non-nume kamilah results) [facility] Creatinine 0.82 mg/dl 0.67-1.17 Normal (applies to non-numeric resul ts) [facility] N-Acetylcysteine (NAC) and Metamizole bradley ve the potential to falselydepress Creatinine results. Baseline values before medication adminstration are recommended. Patients undergoing treatment with phenindione will have falselydepressed results. Patients on phenindione therapy should be tested with an alternativeCREA method.Toxic levels of acetaminophen may lead to falsely depressed results forpatient samples. Glomerular Filtration Rate >90.00 mL/min/1.73m2 [facility] GFR Reference Ranges:Normal Function or Mild Renal [...] of Health and the National KidneyFoundation. The [place] method used in calculating this result is traceable to IDMS standards. Glucose 202 mg/dl 70-110 Above high normal [facility] Sulfasalazine has the potential to false ly depress Glucose results. Sulfapyridine has the potential to falsely elevate Glucose results. Baseline values before medication administration are recommended. Calcium 9.2 mg/dl 8.5-10.1 Normal (applies to non-numeric resul ts) [facility] Sodium 136 mEq/L 136-145 Normal (applies to non-numeric resul ts) [facility] Potassium 3.7 mEq/L 3.5-5.1 Normal (applies to non-numeric resul ts) [facility] Chloride 102.0 mEq/L 98.0-107.0 Normal (applies to non-numeric resu lts) [facility] Carbon Dioxide 30.0 mMol/L 21.0-32.0 Normal (applies to non-numeric results) [facility] Anion Gap 7.7 7.0-15.0 Normal (applies to non-numeric resul ts) [facility] The above 10 analytes were performed by [facility] [id number] [id number] [address] ID Date Data Source [id number] 06/19/2020 07:00:00 AM EST [facility] Name Value Range Interpretation Code Description Data Evelin rce(s) Supporting Document(s) AST 25 IU/L 15-37 Normal (applies to non-numeric resul ts) [facility] Sulfasalazine and sulfapyridine have the potential to falsely depressAspartate Aminotransferase results. Baseline values before medication administration are recommended. ALT 28 IU/L 16-61 Normal (applies to non-numeric resul ts) [facility] Sulfasalazine and sulfapyridine have the potential to falsely depressAlanine Aminotransferase results. Baseline values before medication administration are recommended. Alkaline Phosphatase 114 mIU/ml 50-136 Normal (applies to n on-numeric results) [facility] Total Bilirubin 1.10 mg/dl 0.20-1.00 Above high normal [facility] Blood Urea Nitrogen 18 mg/dl 7-18 Normal (applies to non-nume kamilah results) [facility] Creatinine 0.82 mg/dl 0.67-1.17 Normal (applies to non-numeric resul ts) [facility] N-Acetylcysteine (NAC) and Metamizole bradley ve the potential to falselydepress Creatinine results. Baseline values before medication adminstration are recommended. Patients undergoing treatment with phenindione will have falselydepressed results. Patients on phenindione therapy should be tested with an alternativeCREA method.Toxic levels of acetaminophen may lead to falsely depressed results forpatient samples. Glomerular Filtration Rate >90.00 mL/min/1.73m2 [facility] GFR Reference Ranges:Normal Function or Mild Renal [...] of Health and the National KidneyFoundation. The [place] method used in calculating this result is traceable to IDNY standards. Glucose 202 mg/dl 70-110 Above high normal [facility] Sulfasalazine has the potential to false ly depress Glucose results. Sulfapyridine has the potential to falsely elevate Glucose results. Baseline values before medication administration are recommended. Calcium 9.2 mg/dl 8.5-10.1 Normal (applies to non-numeric resul ts) [facility] Total Protein 7.7 g/dl 6.4-8.2 Normal (applies to non-numeric re sults) [facility] Albumin 3.1 g/dl 3.4-5.0 Below low normal [facility] Sodium 136 mEq/L 136-145 Normal (applies to non-numeric resul ts) [facility] Potassium 3.7 mEq/L 3.5-5.1 Normal (applies to non-numeric resul ts) [facility] Chloride 102.0 mEq/L 98.0-107.0 Normal (applies to non-numeric resu lts) [facility] Carbon Dioxide 30.0 mMol/L 21.0-32.0 Normal (applies to non-numeric results) [facility] Anion Gap 7.7 7.0-15.0 Normal (applies to non-numeric resul ts) [facility] The above 16 analytes were performed by [facility] [address],[facility]#: [id number],[place] [address] ID Date Data Source [id number] 06/19/2020 06:55:00 AM EST [facility] Name Value Range Interpretation Code Description Data Evelin rce(s) Supporting Document(s) WBC 9.03 x1000/ul 4.80-10.00 Normal (applies to non-numeric re sults) [facility] RBC 4.01 x1Mil/ul 4.70-6.10 Below low normal [facility] Hemoglobin 11.6 g/dl 14.0-18.0 Below low normal [facility] Hematocrit 34.9 % 42.0-52.0 Below low normal [facility] MCV 87.0 fL 80.0-94.0 Normal (applies to non-numeric resul ts) [facility] MCH 28.9 pg 27.0-31.0 Normal (applies to non-numeric resul ts) [facility] MCHC 33.2 g/dl 32.2-37.0 Normal (applies to non-numeric resul ts) [facility] RDW 12.2 % 11.5-14.5 Normal (applies to non-numeric resul ts) [facility] Platelet Count 314 x1000/ul 130-400 Normal (applies to non-numeric results) [facility] MPV 9.4 fL 9.4-12.4 Normal (applies to non-numeric resul ts) [facility] Neutrophils 71.9 % 40.0-74.0 Normal (applies to non-numeric resu lts) [facility] Lymphocytes 19.8 % 19.0-48.0 Normal (applies to non-numeric resu lts) [facility] Monocytes 6.1 % 3.4-9.0 Normal (applies to non-numeric resul ts) [facility] Eosinophils 1.0 % 0.0-7.0 Normal (applies to non-numeric resu lts) [facility] Basophils 0.4 % 0.0-2.0 Normal (applies to non-numeric resul ts) [facility] Immature Granulocytes 0.8 % 0.0-0.5 Above high normal [facility] Nucleated RBCs 0.00 % 0.00-0.20 Normal (applies to non-numeric r esults) [facility] Abs. Neutrophils 6.49 x1000/ul 1.92-8.31 Normal (applies to non-numeric results) [facility] Abs. Lymphocyte 1.79 x1000/ul 1.20-3.70 Normal (applies to non-n umeric results) [facility] Abs. Monocytes 0.55 x1000/ul 0.14-0.97 Normal (applies to non-nu meric results) [facility] Abs. Eosinophils 0.09 x1000/ul 0.00-0.76 Normal (applie s to non-numeric results) [facility] Abs. Basophils 0.04 x1000/ul 0.00-0.22 Normal (applies to non-n umeric results) [facility] Abs. Immature Gran. 0.07 x1000/ul 0.00-0.02 Above high normal [facility] Abs. Nucleated RBCs 0.00 x1000/ul 0.00-0.02 Normal (appl ies to non-numeric results) [facility] The above 24 analytes were performed by [facility] [id number] [place] [address], ,[place] [address] ID Date Data Source [id number] 06/18/2020 09:23:00 PM EST [facility] Name Value Range Interpretation Code Description Data Evelin rce(s) Supporting Document(s) Glucose, Fingerstick 242 mg/dl 70-110 Above high normal [facility] The above 1 analytes were performed by Lucy [facility] [id number] [place] [address], ,[place] [address] ID Date Data Source [id number] 06/18/2020 04:11:00 PM [facility] Name Value Range Interpretation Code Description Data Evelin rce(s) Supporting Document(s) Glucose, Fingerstick 233 mg/dl 70-110 Above high normal [facility] The above 1 analytes [facility] [id number] [place] [address], ,[place] [address] ID Date Data Source [id number] 06/18/2020 03:57:09 PM [facility] Name Value Range Interpretation Code Description Data Evelin rce(s) Supporting Document(s) Progress Notes [facility] [id number]UU0 lbm [file] [id number] ID Date Data Source [id number] 06/18/2020 11:31:00 AM EST [facility] Name Value Range Interpretation Code Description Data Evelin rce(s) Supporting Document(s) Glucose, Fingerstick 194 mg/dl 70-110 Above high normal [facility] The above 1 analytes were performed by [facility] [id number] [facility]#: [id number],[place] [address] ID Date Data Source [id number] 06/18/2020 07:50:20 AM EST [facility] Name Value Range Interpretation Code Description Data Evelin rce(s) Supporting Document(s) Progress Notes [facility] [id number] lbm [file] [id number]J0VEF9iKVwRx3XOOV4WJIUTsIcMP5WVLg= ID Date Data Source [id number] 06/18/2020 07:23:00 AM EST [facility] Name Value Range Interpretation Code Description Data Evelin rce(s) Supporting Document(s) Glucose, Fingerstick 189 mg/dl 70-110 Above high normal [facility] The above 1 analytes were performed by [facility] [id number] [place] [address], ,[place] [address] ID Date Data Source [id number] 06/18/2020 05:01:00 AM EST [facility] Name Value Range Interpretation Code Description Data Evelin rce(s) Supporting Document(s) Blood Urea Nitrogen 17 mg/dl 7-18 Normal (applies to non-nume kamilah results) [facility] Creatinine 0.92 mg/dl 0.67-1.17 Normal (applies to non-numeric resul ts) [facility] N-Acetylcysteine (NAC) and Metamizole bradley ve the potential to falselydepress Creatinine results. Baseline values before medication adminstration are recommended. Patients undergoing treatment with phenindione will have falselydepressed results. Patients on phenindione therapy should be tested with an alternativeCREA method.Toxic levels of acetaminophen may lead to falsely depressed results forpatient samples. Glomerular Filtration Rate 84.00 mL/min/1.73m2 [facility] GFR Reference Ranges:Normal Function or Mild Renal [...] of Health and the National KidneyFoundation. The [place] method used in calculating this result is traceable to IDNY standards. Glucose 176 mg/dl 70-110 Above high normal [facility] Sulfasalazine has the potential to false ly depress Glucose results. Sulfapyridine has the potential to falsely elevate Glucose results. Baseline values before medication administration are recommended. Calcium 9.5 mg/dl 8.5-10.1 Normal (applies to non-numeric resul ts) [facility] Sodium 135 mEq/L 136-145 Below low normal [facility] Potassium 3.8 mEq/L 3.5-5.1 Normal (applies to non-numeric resul ts) [facility] Chloride 100.0 mEq/L 98.0-107.0 Normal (applies to non-numeric resu lts) [facility] Carbon Dioxide 31.3 mMol/L 21.0-32.0 Normal (applies to non-numeric results) [facility] Anion Gap 7.5 7.0-15.0 Normal (applies to non-numeric resul ts) [facility] The above 10 analytes were performed by [facility] [id number] [place] [address],[facility]#: [id number],[place] [id number] ID Date Data Source [id number] 06/18/2020 04:53:00 AM EST [facility] Name Value Range Interpretation Code Description Data Evelin rce(s) Supporting Document(s) WBC 7.34 x1000/ul 4.80-10.00 Normal (applies to non-numeric re sults) [facility] RBC 4.21 x1Mil/ul 4.70-6.10 Below low normal [facility] Hemoglobin 12.0 g/dl 14.0-18.0 Below low normal [facility] Hematocrit 36.4 % 42.0-52.0 Below low normal [facility] MCV 86.5 fL 80.0-94.0 Normal (applies to non-numeric resul ts) [facility] MCH 28.5 pg 27.0-31.0 Normal (applies to non-numeric resul ts) [facility] MCHC 33.0 g/dl 32.2-37.0 Normal (applies to non-numeric resul ts) [facility] RDW 12.1 % 11.5-14.5 Normal (applies to non-numeric resul ts) [facility] Platelet Count 339 x1000/ul 130-400 Normal (applies to non-numeric results) [facility] MPV 8.8 fL 9.4-12.4 Below low normal [facility] Neutrophils 63.8 % 40.0-74.0 Normal (applies to non-numeric resu lts) [facility] Lymphocytes 26.3 % 19.0-48.0 Normal (applies to non-numeric resu lts) [facility] Monocytes 6.8 % 3.4-9.0 Normal (applies to non-numeric resul ts) [facility] Eosinophils 1.6 % 0.0-7.0 Normal (applies to non-numeric resu lts) [facility] Basophils 0.7 % 0.0-2.0 Normal (applies to non-numeric resul ts) [facility] Immature Granulocytes 0.8 % 0.0-0.5 Above high normal [facility] Nucleated RBCs 0.00 % 0.00-0.20 Normal (applies to non-numeric r esults) [facility] Abs. Neutrophils 4.68 x1000/ul 1.92-8.31 Normal (applies to non-numeric results) [facility] Abs. Lymphocyte 1.93 x1000/ul 1.20-3.70 Normal (applies to non-n umeric results) [facility] Abs. Monocytes 0.50 x1000/ul 0.14-0.97 Normal (applies to non-nu meric results) [facility] Abs. Eosinophils 0.12 x1000/ul 0.00-0.76 Normal (applie s to non-numeric results) [facility] Abs. Basophils 0.05 x1000/ul 0.00-0.22 Normal (applies to non-n umeric results) [facility] Abs. Immature Gran. 0.06 x1000/ul 0.00-0.02 Above high normal [facility] Abs. Nucleated RBCs 0.00 x1000/ul 0.00-0.02 Normal (appl ies to non-numeric results) [facility] The above 24 analytes were performed by [place] [facility] [id number] [facility], ,[place] [address] ID Date Data Source [id number] 06/17/2020 08:56:00 PM EST [facility] Name Value Range Interpretation Code Description Data Evelin rce(s) Supporting Document(s) Glucose, Fingerstick 263 mg/dl 70-110 Above high normal [facility] The above 1 analytes were performed by [facility] [id number] [facility], ,[place] [address] ID Date Data Source [id number] 06/17/2020 04:48:52 PM EST [facility] Name Value Range Interpretation Code Description Data Evelin rce(s) Supporting Document(s) Nursing Note [facility] YGCYIh7sPrTGDkWq23/GKYaiRGWil6EpIKykCWd7QJduGFAoN1VcIWB0jS1wYDX8YUkJYqOpPbYxQRPd [facility] [file] O7HeykFDUtVAl3NDUkOWWyQFR0GZFwOAMyBD4sGD ANCj4+FInrqTJczCstXFNSJww0AJUDQoErVM9HRYw= ID Date Data Source [id number] 06/17/2020 04:18:00 PM EST [facility] Name Value Range Interpretation Code Description Data Evelin rce(s) Supporting Document(s) Glucose, Fingerstick 275 mg/dl 70-110 Above high normal [facility] The above 1 analytes were performed by [facility] [id number] [facility]#: [id number],[place] [address] ID Date Data Source [id number] 06/17/2020 02:33:53 PM EST [facility] Name Value Range Interpretation Code Description Data Evelin rce(s) Supporting Document(s) Progress Notes [facility] OPFVOm8nIpRRZbZj91/WLTpwDMYtk8IzZGvrNBc0XBevOVYvN1BoUBI3lW5kCUN4RBnCFiRxBxWsCVMe lbm [file] BSDQogICAgICAvRjIgMTggMCBSDQogICAgICAvRjMg SkPkGWGRMHafQHRbLCRuZmGxVuWiLLROQZxrIFTgOVUgBmSqSnjpRRBRBm7XCaKiDIYrLD1bawQpqLV2 MANAGER SUBWAY+Gv8VPKVyOH7XqEOUJ2BwbRUzKZcgD3HPOO2PSKW8FX0AxLMgBC4QnZHTL0RroYRrJe0bDQOoq1Zk Sa0hK4NNVSRYHJKpZSlzKNkhFLWqENw4R4I1JDJiK6 APV905vGHwsHm8Yw7mX4DKPBvPEjSmFVcfDRslTWKdNLj4H5V6RDCeJ7YVC3XwAyHwdkRxV0T+PiAvUE ZKZJ0GKLNXCTm9E9I6wESpF9Z1kEeEiQL2VI2SPL7HcNJscIZud26+KmVZBwKcHSSbM5JXROPMEqPhND fcIWpbIYOvBNx1W8O0EKJaE2HNC5lwO1r4TP9+PiAN GaRfWXHwYm0EDqQxLs8SOdVcYD6ylt9YSksyZDQnZnoFMax9U9ygqxz6cRMdVlW8C4Y3YvX0rXTsZD9U X3D0xLBqQYP9JJUxkQM+Ef8Zd0WnNUUvVNt0S3zzPUFcLGZnOcQhbQ67F++9veqqsEV9R0a5HWVNiOOz dHjEglAlG7gZQRZ4x8W5GHn/Zp8JVXN3qNa2iYYpIJ OkANz6qB8mwYh1DuJyFX12GPMhNAcqlY4gYnq9V9Uvp1SbRf8pXi6wsFNgCf4JNlXtSXM4fpNyEwEAKy B4qBnzbbdhTFD5I2i6dHB1Jq88q4zemuLpl1ZxZcQ4FVulTDJbJgYbsqOtRWC2dbJqxV0urfTrYn1PEP BvTDvzjdWxPcMOHb4LIxYfYM07LvmbaN6eeMD+DQog ICAgICAgICAgICAgICAgICAgICAgICAgICAgICAgICAgICAgICAgICAgICAgICAgICAgICAgICAgICAg ICAgICAgICAgICAgICAgICAgICAgICAgICAgICAgICAgICAgICAgDQogICAgICAgICAgICAgICAgICAg ICAgICAgICAgICAgICAgICAgICAgICAgICAgICAgIC AgICAgICAgICAgICAgICAgICAgICAgICAgICAgICAgICAgICAgICAgICAgICAgICAgDQogICAgICAgIC AgICAgICAgICAgICAgICAgICAgICAgICAgICAgICAgICAgICAgICAgICAgICAgICAgICAgICAgICAgIC AgICAgICAgICAgICAgICAgICAgICAgICAgICAgICAg DQogICAgICAgICAgICAgICAgICAgICAgICAgICAgICAgICAgICAgICAgICAgICAgICAgICAgICAgICAg ICAgICAgICAgICAgICAgICAgICAgICAgICAgICAgICAgICAgICAgICAgDQogICAgICAgICAgICAgICAg ICAgICAgICAgICAgICAgICAgICAgICAgICAgICAgIC AgICAgICAgICAgICAgICAgICAgICAgICAgICAgICAgICAgICAgICAgICAgICAgICAgICAgDQogICAgIC AgICAgICAgICAgICAgICAgICAgICAgICAgICAgICAgICAgICAgICAgICAgICAgICAgICAgICAgICAgIC AgICAgICAgICAgICAgICAgICAgICAgICAgICAgICAg ICAgDQogICAgICAgICAgICAgICAgICAgICAgICAgICAgICAgICAgICAgICAgICAgICAgICAgICAgICAg ICAgICAgICAgICAgICAgICAgICAgICAgICAgICAgICAgICAgICAgICAgICAgDQogICAgICAgICAgICAg ICAgICAgICAgICAgICAgICAgICAgICAgICAgICAgIC AgICAgICAgICAgICAgICAgICAgICAgICAgICAgICAgICAgICAgICAgICAgICAgICAgICAgICAgDQogIC AgICAgICAgICAgICAgICAgICAgICAgICAgICAgICAgICAgICAgICAgICAgICAgICAgICAgICAgICAgIC AgICAgICAgICAgICAgICAgICAgICAgICAgICAgICAg ICAgICAgDQogICAgICAgICAgICAgICAgICAgICAgICAgICAgICAgICAgICAgICAgICAgICAgICAgICAg JUFkBWQeUNUiOSMiNFUaRZYzWZNeYSVjTELpKHKrWDIdWHEnGILaZWZfNQFdAOUrBLf2A0jeVFAhIWCm FK7cCEu8Jc1+VCxGXqWmOKS2fvQapC5TBS9lz9LaHI tcIMUyp4AwLCg5KT8BIDRfXVygXJ4OXZbniz6UUCHzYVBrkRSEx5jwOdYvADI8PRDgAyatCU2BSBIbS9 vabaKuMABtNBUXEXjxYMHQDFgaVFNSDN5HVlYxG3JxaS18ICWXPk1+KXzcybQuBwkBEtUeCHPfz8CuLO i2FS1JIZAeVxocw1GvSxVvGCZWHDeiMU7GNEX7OIIl CVRwJk9LFSMkM397ngFiTR6WPh3XHoZfLD6kjz3VLyGuBHCwGpmVQcz5ZDkpQL7AfQWrXHuKbv2fsaYk owAMe2RcqsBxgBMLZTMicLOrmPOOLS2ph2WluwO9SHphPERqHBHaJA5lUb9aAYEuRFTwRtFnUAIQPH8C LMQgQEOuoBWlJZMhPYJDTM8WJHoqKMM5UbbkluGxxA GcTFctUO9KYUUppyPlDzFlKNFBYHc+Ms8KJH4ws5YvMObgWgRyKK2mbj9TNSlJRhPuB4Q8zGYpU2B3PL igWd7BNNPaGRGvOrsfVIEZFIfwEV2EFJ6gyiM7SL9CbWUfLQNqMTMwqPHbIMd8V76dnICcLMdeRG0JSC A+Yadira+Uz0UATNlCXBdOQVxAqThAADIUnGfT3MlQ8IU i6FqO7TjTG19pUrxbpHzMUefXL9NVI6qCJUsBKUZSZ3ItRCvxI2ferWkCLSuFZEBXoNdX44hgHBaTBPn QJN3PEDcDv6WMVIrC9MoweFhyHnhhwUdAGFnKOGYNL2HFQgnqhYrxDAejRybGM33yIlqVJ8ZYe8GHeZo QE4aqv1XuKOcSe8FZMWlNe4FPBZqGWYoCXBxZNQ0WH DzJlVpOQylZZWiDXRuAZN9MEIaOADsCB3UDjEbOFMsQJJ5GaEzPLShCVPbia9PFMTgEYFzHmsnHhIbDL EtQDQnREhcNNHvGWAlXHG2WYDkNZDcON8BGhUsXIKsPEL6TJjoEHRwRGVgpp4OQPCyRKIjUpBtMjEqZE RgRZUpAJccNBReAND2KdUiPTDqUOPtXE0YRnVaWVOn VZC0OEHjRCWsTFCism1LGPDrUQSsSpB7OMPkCERiABGdLBdwPWPjQYA8AeqpEIYeITBsDB6AQvHhNELp OTo6XILoZKWrACCsdk9YZIWhNVPgZSm6CfSwKORcVGHnXKbyAFXsLLA0MMTbFHKzMWGsMS0ZOiIxOLYs NRMlGOEjVODjJSAadg4FHTIcZQZzAJE0GBRcCJJdIG QjVYqaTYKbZURqMZouOCXlCVYrTD0DGdMlXSGiDWL5SJOwSTRiOGZepm6JREAuAUJmIIV0PoDjAGQeCZ TvDGybPOZmFHXgOZV3BLGuDCMxJQ0WViDhPSTnGBE2MBHpKTTtVATwla4KAVPuSPDyXbd7XuJbPIQuLA EbKMuvMGPmSWPrUFhcDWSsGFUdLD5RGiZkYPHjTDEr ZCKpAHYdIDBpxl8OCBMnLDUsWYB3WKAsMZWdXWBiQLdqWRJkTEY2ODMwEVLeFTYyZE5TLfGuHKSbMJI9 ENwpJZFtZBXvrt3XVSOaLBAuOAniUqEwNHCkWKSlFEbjCGHcPQQ3EXC6TOJyLNFqVL3YNiAyNNIvQCRi TJNgGQEdJPSlec6EJBXoWIBkEqvsAcWyFXYrMCEiZN wzSZNvCUQ7IMM9BWPnBKFpPZ1HJbSwIIJtYZpsMzJsRWXyWIOnxe6VaXDdzNbssu5ZNQrBAv8IzDkzJT DuGNjtAo7ujXLlWxBaIOKRQs1JghAfWHVnUPRLPCfgACMrQPFsMpZcGTKuEUBmUsS2S2AjJHL7DDMvTY GxFmBsMlQpUeD1HTGoBYFxXEFoQEIaCtZuQeI0LDJv UASlUaA8XiDnOmK+YY6nQLe+Rd6Jd0VsakJ1uuRkQXuaVYInFt6DNIAWB8SRDt== ID Date Data Source [id number] 06/17/2020 02:14:47 PM EST [facility] Name Value Range Interpretation Code Description Data Evelin rce(s) Supporting Document(s) Nursing Note [facility] GIRBCr9uCpBMPmSs71/PWWanDPGbg8UxGMkbKMr1UIskKBOiJ3JbRYO9kD4oIFN0GTqGCcGtHpOrLSRm lbm VaZezHTcKnEATmIfaYDrCqHYybBgnutGBiGU5LnLP8XBFkA38kTBAwHWUdO8UxHBqzJN7+PDaxCPQ9ix SusD6HJEBWLE0J3fCIeW+0/0DxyjOk8UO5ncxrPKbbHCHDtPTMnYcQAnggXzS/M6XcNU8BuJeeXirPDU k0dIx0FCsoRp60DrkPLVhJt/OqQkGXN/T9G0WxtcvW ta+QMSmLECToRnNsOr28JWQ2YxMOQ80ZG006mSGLQzxCB4U6jJbSbSJll+xg0BfxvU3zU8MnBvCpPETw jQVbwPrZp0OlhoMUto4ttYA5f7dxx5koCMuseAJ2Xuzo6FSPul8hxwtTMYuOLiUTKFfG1GWhhsVMeeUC RZHoAmc+VZzXGfdKagsMV4ehUA1K3AOhLGMGNMzVcH GcHQwA6LlYWpgPISx7sQg5kTVqWL5JAYkl9BlVMOXufQAWaKsHyupx3A4AftgDIEhxjB/W3YZ7Te/xpv 4LFTO56hTdTZD1vvnJpLjWbj43ETcEsewDrl0bxizPgkuICsBPomFl+Vasyl/GFK+5s6BSdDRw8D1ossrq [file] ID Date Data Source [id number] 06/17/2020 12:44:02 PM EST [facility] Name Value Range Interpretation Code Description Data Evelin rce(s) Supporting Document(s) Progress Notes [facility] VBMVRg6gHgHYUdCg12/RLHfmOGDzh2EnHPxtBPx2RWuqNCQtG9UhBGV4vF9tOHC6DGoTMiXuCpUiBGRb lbm [file] RjAgMTQgMCBSDQogICAgICAvRjEgMTcgMCBSDQogICAgICAvRjIgMjAgMCBSDQogICAgICAvRjMgMjMg INVIWGfaFCHgDLQtFtMhAzPrNDKRNAgcRAZzBNPoUpAgXzllNOOPPByeCHMyDMYzNrUmSfEyCIWFQu3I TsXzLPCiLQ8mmsLkpQL4ZTV+Ta5DENVjFO4FjZWAK0 HhtSMzOMnbT0QJTD0DUCI9JS6KwMItDP5RgSOQA3FtsNOmEl1bUSMwg5LwPa9dX5YSZZXBBWAiFNzgFH umEGWwRIo1L7J7LYYpJ2UHG697mMJvtEy6Rl1oU4MVMBbJOsDjSVheQEcdPAOiVHz1X0J5QTVfP3TGM1 IzHrYmgmUgS5Q+GkXsCXANOQ4ZSFWIAYt8L3V5mYRh H1X1lQxWlKR9MM2FZW1BoFEwzMQvt47+DoGMCnKyRSTtK6DBHGSBJsLkGJwaTMvgBFAfMZd7S9D8KLYb P1NQJ8tcF4t1DZ7+KoJCOiUzQEJsEj3UFzQlDn1OUhHvKF7uil1FSsNjSEGrQlbUFli7T2hckhy3iDDn TvN2Z3X3YvV4jUMpAP2UB5J6nLOpBIH1QGJmpPN+Pg 1Lv0VfEPQeQTa5O4aaXDBzYPKhNgKseG20S++2whnshQA6D1f7YIXMmGCkuKaPhlHpR7oUQIK8b5Z4WM c/Ai5UUNJ9zJy6xMDeTDScZQq4qE4apTb0XuIjJO89CVPaKSgtbH9hVpr4X9Thh3BoHr7mNy6lzMKgTy 2BZpCmRKO7dvAvOsIYWwW3bGltnopcGSP7J8a9lEA7 Dn74c5vquiFib5QjQiH1GXetREMaRjTnldTpSCO3aiXgbQ2kgtOnTz5OWHLdJEevgbTaAnWBUp5QLeJg JO59BikiaG9ezLM+DQogICAgICAgICAgICAgICAgICAgICAgICAgICAgICAgICAgICAgICAgICAgICAg ICAgICAgICAgICAgICAgICAgICAgICAgICAgICAgIC AgICAgICAgICAgICAgICAgICAgICAgDQogICAgICAgICAgICAgICAgICAgICAgICAgICAgICAgICAgIC AgICAgICAgICAgICAgICAgICAgICAgICAgICAgICAgICAgICAgICAgICAgICAgICAgICAgICAgICAgIC AgICAgDQogICAgICAgICAgICAgICAgICAgICAgICAg ICAgICAgICAgICAgICAgICAgICAgICAgICAgICAgICAgICAgICAgICAgICAgICAgICAgICAgICAgICAg ICAgICAgICAgICAgICAgDQogICAgICAgICAgICAgICAgICAgICAgICAgICAgICAgICAgICAgICAgICAg ICAgICAgICAgICAgICAgICAgICAgICAgICAgICAgIC AgICAgICAgICAgICAgICAgICAgICAgICAgDQogICAgICAgICAgICAgICAgICAgICAgICAgICAgICAgIC AgICAgICAgICAgICAgICAgICAgICAgICAgICAgICAgICAgICAgICAgICAgICAgICAgICAgICAgICAgIC AgICAgICAgDQogICAgICAgICAgICAgICAgICAgICAg ICAgICAgICAgICAgICAgICAgICAgICAgICAgICAgICAgICAgICAgICAgICAgICAgICAgICAgICAgICAg ICAgICAgICAgICAgICAgICAgDQogICAgICAgICAgICAgICAgICAgICAgICAgICAgICAgICAgICAgICAg ICAgICAgICAgICAgICAgICAgICAgICAgICAgICAgIC AgICAgICAgICAgICAgICAgICAgICAgICAgICAgDQogICAgICAgICAgICAgICAgICAgICAgICAgICAgIC AgICAgICAgICAgICAgICAgICAgICAgICAgICAgICAgICAgICAgICAgICAgICAgICAgICAgICAgICAgIC AgICAgICAgICAgDQogICAgICAgICAgICAgICAgICAg ICAgICAgICAgICAgICAgICAgICAgICAgICAgICAgICAgICAgICAgICAgICAgICAgICAgICAgICAgICAg ICAgICAgICAgICAgICAgICAgICAgDQogICAgICAgICAgICAgICAgICAgICAgICAgICAgICAgICAgICAg ICAgICAgICAgICAgICAgICAgICAgICAgICAgICAgIC JaZRWgZAMtJMJwIOVrYYSuCAXbXTUkEMMoCGIcIZOgBSw1H3xuAHLzJRTwIZ5lFDl5Ti5+DQoNCmVuZH C5fsGxsI7ADU3tu9NdBWsqNTMif3KmRWo0HC6FHFSlNUfrCG5OPBnuud1VWUToAHDnrXCOm9tvYeRmZY G0UCDqVewzKO5AGFBdJ7dsilOwSZSnBYMHXDmtMTVC YTnkNVYUATOsZEMlHfSlEQwnRA0Fo2DtjHC3CCf+Dq8BBR9vy8BlAWohKOMaOR8yhp1JTTtSYtZyZ4Nl wuM6FOM7CPFxQp2ICVOkXRWesSByFoWhMAEEChHuP5CcfX70NWWZFa9+SDbkdbEoTnkMDpG8EUDtj6Sc CAy3IL7GJPVlYTf9tSUjFSUrN4Uzu9AlOy27NKGjSu cgK2AjZI3eBAKDQS4rPAQDXKIyrTXaZvNtYrOgCvLsXUD9NPmkTN6qWKgjOY4ALTX8YTftFNHrRYDrZ7 iXPfTeSIbtDFFqrNtmVX5YDdYuB0FydkZhlMWvLOXnKXHCRn7+HZdudkZpTtbPTxK6DXUea7BkVRd6PN 4QOKFoYZxtVY8ZRERzqG1xRRaiND2DEtYtEbSpPDPF YnQlZ35awZQbMAf6L0OhIgPqQOJyJercBCPtZZnbOgJlPMJbWdNeAYwhNK8+ID4+EMgfUS3UIRnahuTf AVYcGa7JEABaEZNbDK1jHAScCGKvF6A2qQyxEETMKfLtI2ouxxtjIO3cWJQaE395sQohtoJhCXV1ITFk Sb4DHAEdYOX9UZYpkFFkFbVkGXWVHTwnPO4PmANkHX I0yR9hLUqeZMWoEWWdZ0gRNqUskDnzRF20rNwkyiGtgUOdRTm+Fu6HWB9pr3FqXNe6jvVkZQccUVH2SH jaNJKzEOMyYLTtAYY3WCO3AWZLPbXzBNVxPYZmLYwuMQLzSNBmkf3KCWSeYPQlZDY9JBFiSFPcXWFtBK bqYWGzZQNfUGXxIFWzDRBbJS1ZFtUsVECnMTTaFQro VCUkLKOpaa2BYVOzQMEtBfq3GQApWMTtVPDsCDdzFXBzGIEuBMN8RJYyIAVbBU7EXvVcTCAeZBH6IbQb IFQlIQDuba3XKXFrAXCcCdx1DvVzPHZxSNBwZLfjYMBaBLZ5VXXhYPObZYCxQH6JLbAcGMOqVCh2Wrfj OPXnBCKsnb6TFWNwRHHiJRU4RUJdULGxDEXhANstWM ViNKPrSxU6PAUeEZSsDJ7HQrXqHNZyAUI8DBUlOTYmRRMyot9WVTUkFZJaZhnhDmUoKLXuTKAyQWteFJ SxKNJaFNK0ABYtGWOgCV7WAbYvVTJsLPI0DoKbMVMhWKRzub1YOOUsQMLjRHI8JzPkJEIbQGAgCZmxID AgOIJ1ZeY1MNEeZKIbSY7SKiHgVLEsSYHeMLEeRBOu CJIinn4KUYNhMZNtYKMxREBsEGMwJZTkXKboGLCiDSZ7PkNzZCZaISZzLG4ZUtRfFYQcRJE8RYmnQRXr LGQuja3XRSZgCFXxUdd0QOJdCWSuUWAbPXeoXKMiIWM1WJU0ZGMoSZQmPG5LJpTbBDXtMYxjTBEfANRq XPMhgh6DPTDaSEEeEUSxESZoZJJsDXMlPKonZPJoVI J2WVH6RZPwXIGqLO9ONjRlCNJhBAumRbFhPTGwYMLmvx5ZOGUqMSHvEBD6PWXrOONfKTJrFQvgYXBsZK D4GzD5GKJqWHKrLU8ZTxKuGIFbGtU0GWtaYKVpHQWwyl8ZUGPuYTAcBKwuTIYzSRVtRWEjVDkiZCJmCX JgXHC7QWDfOYIkNI6YZsUiVQRaAhN5DKLtVCKmTZEq az1NFZYcXGYrLtL7KQGxVVIqXDOsEOcqBVMpPHEvBYKmKWItDKPfJZ1ZSzHdHYWuYfCqDCkbJFPqGFQe ir7OxHWhuOcoze1MUKnKLt1MiDdtCCU8FDhnGk1ivBZzZnBvGZHNEx4GazXzDBRfMJNMIOloYAOiTDiq OSHiTdJrC9QbHwVkHTS3VnWoTOm0ZTRmA4E6SkhpUd P0WHKjShM4YPCjOpRvSeV0MpDwNaX4JoW7AEEmTfWjMIE+NL1uUIq+Eq1Mn8HojxP5dmOgGAdtAtViAB 7KZDMZR5XYMg== ID Date Data Source [id number] 06/17/2020 11:39:00 AM EST [facility] Name Value Range Interpretation Code Description Data Evelin rce(s) Supporting Document(s) Glucose, Fingerstick 256 mg/dl 70-110 Above high normal [facility] The above 1 analytes were performed by [facility] [address]#: [id number],[place] [address] ID Date Data Source [id number] 06/17/2020 08:49:43 AM EST [facility] Name Value Range Interpretation Code Description Data Evelin rce(s) Supporting Document(s) Progress Notes [facility] FUKJVc1jXaSVMdXs00/PIBiaBNKjb7GfFRqhAXb1MXfoVULnC0CrKAU1uN4rKZG4TZdDLnScRbYgKEFo lbm ClXvfKFjMlHNIqQgxWZcDuZUgcHoxzbQXhSX5XqGO0IPUuP95cWEVdWDQoD3HiFVE8VzA+Rl1SWYSgcX FsYS2JPqhF4S4Qn6f9Lu0/drvixNsaccCnDgiV5IhShuUqE0eca4OTx0pgamAIYzoz4Qz2u/hIAtRMt6 IMKZiASApbcIWwEw8YRQMB1N7/wjEeI3DJYV0wrc6V EmdX4r//YlfltbuTgxdKDRDygVQvhQ7v/pIFc858RfipmmMehA67jYndzAuJgNXz7znBekzFD4GspNj2 VB1+zCLhUI65Xp3jJpRLhgv0XLhjRHmeGeezPpkLJZ6+52p63oKBNgJ0cjIVsnBzhQDJ6dXQGnyuFN2b 9HvMJgWPEhORaEPl3/ZhlnmpblqwKPuQoXg/UETXFk yMb+t3clqAzhcvFVH4F/k3Dn0VOOwanhWfJqpNKsCnCYK6nu6TdlX9uj01wdYyteiVZB78xYmR1TLrMF tlOYzZlFfhc6MSf0hoFCCRSmzPBXt2uGM5oR4w228OENvTrq/5ooiD+AhULoy3Gzj9wBVtUJHORn8M72 1EhdSzzOMppTMT6TB/R4ctWEvv/dGimun5Ud++H1e4 rNB6R/at8ILQTZuDCx20pDOk+2U098g4IzEpKCp4LOIFF7Zya+elsdScTToyvvwnv7SSlwsZnIzSbfpJ OL3+q9duBOjF5W8XjmkO05buzjOZGZRGBpYRu9i6ugaXFZDa5TrwBv9kNzBI0GxOMv8ubZ30FBWRR0Ra M0x3l90K5InEin4YkN22c85P0Ow34x3nhm8p5akd4o [file] D7JiUjBsWtZO5KUg0MZmA4DNL9yRGlKt2QNEI5PUpHHnPoGR4GWCm= ID Date Data Source [id number] 06/17/2020 07:15:00 AM [facility] Name Value Range Interpretation Code Description Data Evelin rce(s) Supporting Document(s) Glucose, Fingerstick 209 mg/dl 70-110 Above high normal [facility] The above 1 analytes were performed by Lucy Aj [facility] [address], ,[place] [address] ID Date Data Source [id number] 06/17/2020 07:06:00 AM [facility] Name Value Range Interpretation Code Description Data Evelin rce(s) Supporting Document(s) C-Reactive Protein (Non-Cardiac) 26.90 mg/L 0.00-3.00 Above high nor mal [facility] The above 1 analytes were performed [facility] [address], ,[place] [address] ID Date Data Source [id number] 06/17/2020 07:06:00 AM [facility] Name Value Range Interpretation Code Description Data Evelin rce(s) Supporting Document(s) AST 24 IU/L 15-37 Normal (applies to non-numeric resul ts) [facility] Sulfasalazine and sulfapyridine have the potential to falsely depressAspartate Aminotransferase results. Baseline values before medication administration are recommended. ALT 26 IU/L 16-61 Normal (applies to non-numeric resul ts) [facility] Sulfasalazine and sulfapyridine have the potential to falsely depressAlanine Aminotransferase results. Baseline values before medication administration are recommended. Alkaline Phosphatase 111 mIU/ml 50-136 Normal (applies to n on-numeric results) [facility] Total Bilirubin 1.00 mg/dl 0.20-1.00 Normal (applies to non-numeric results) [facility] Blood Urea Nitrogen 14 mg/dl 7-18 Normal (applies to non-nume kamilah results) [facility] Creatinine 0.88 mg/dl 0.67-1.17 Normal (applies to non-numeric resul ts) [facility] N-Acetylcysteine (NAC) and Metamizole bradley ve the potential to falselydepress Creatinine results. Baseline values before medication adminstration are recommended. Patients undergoing treatment with phenindione will have falselydepressed results. Patients on phenindione therapy should be tested with an alternativeCREA method.Toxic levels of acetaminophen may lead to falsely depressed results forpatient samples. Glomerular Filtration Rate 89.00 mL/min/1.73m2 [facility] GFR Reference Ranges:Normal Function or Mild Renal Disease,if clinically at risk:>or= 60Moderately decreased:30 - 59Severely decreased:15 - 29Renal Failure:<15 Please note that the MDRD equation requires an additional adjustment forAfrican-Americans (multiply the GFR result by 1.210).Glomarular Filtration Rate (GFR) is estimated based on the MDRDequation, which assumes a steady state for creatinine ([place] Int Med 139/2 137-149, 2003), as recommended by the [facility] Disease Education Program in conjunction with the National Institutes of Health and the National KidneyFoundation. The [place] method used in calculating this result is traceable to IDNY standards. Glucose 209 mg/dl 70-110 Above high normal [facility] Sulfasalazine has the potential to false ly depress Glucose results. Sulfapyridine has the potential to falsely elevate Glucose results. Baseline values before medication administration are recommended. Calcium 9.2 mg/dl 8.5-10.1 Normal (applies to non-numeric resul ts) [facility] Total Protein 7.5 g/dl 6.4-8.2 Normal (applies to non-numeric re sults) [facility] Albumin 3.0 g/dl 3.4-5.0 Below low normal [facility] Sodium 135 mEq/L 136-145 Below low normal [facility] Potassium 4.2 mEq/L 3.5-5.1 Normal (applies to non-numeric resul ts) [facility] Chloride 100.0 mEq/L 98.0-107.0 Normal (applies to non-numeric resu lts) [facility] Carbon Dioxide 30.1 mMol/L 21.0-32.0 Normal (applies to non-numeric results) [facility] Anion Gap 9.1 7.0-15.0 Normal (applies to non-numeric resul ts) [facility] The above 16 analytes were performed by [facility] [address], ,[place] [id number] ID Date Data Source [id number] 06/17/2020 07:06:00 AM EST [facility] Name Value Range Interpretation Code Description Data Evelin rce(s) Supporting Document(s) Cardiac CRP (high sensitivity) 25.70 mg/L 0.0-3.0 Above high karey l [facility] Cardiac CRP Risk Ranges:Low Cardiac Risk :<1.0mg/LNormal Cardiac Risk:1.0 - 3.0 mg/LIncreased Cardiac Risk:>3.0mg/LThe above 1 analytes were performed by [facility] [address], ,[place] [address] ID Date Data Source [id number] 06/17/2020 06:35:00 AM EST [facility] Name Value Range Interpretation Code Description Data Evelin rce(s) Supporting Document(s) WBC 9.64 x1000/ul 4.80-10.00 Normal (applies to non-numeric re sults) [facility] RBC 4.12 x1Mil/ul 4.70-6.10 Below low normal [facility] Hemoglobin 11.8 g/dl 14.0-18.0 Below low normal [facility] Hematocrit 36.3 % 42.0-52.0 Below low normal [facility] MCV 88.1 fL 80.0-94.0 Normal (applies to non-numeric resul ts) [facility] MCH 28.6 pg 27.0-31.0 Normal (applies to non-numeric resul ts) [facility] MCHC 32.5 g/dl 32.2-37.0 Normal (applies to non-numeric resul ts) [facility] RDW 12.2 % 11.5-14.5 Normal (applies to non-numeric resul ts) [facility] Platelet Count 349 x1000/ul 130-400 Normal (applies to non-numeric results) [facility] MPV 9.1 fL 9.4-12.4 Below low normal [facility] Neutrophils 74.8 % 40.0-74.0 Above high normal [facility] Lymphocytes 17.5 % 19.0-48.0 Below low normal [facility] Monocytes 5.4 % 3.4-9.0 Normal (applies to non-numeric resul ts) [facility] Eosinophils 1.0 % 0.0-7.0 Normal (applies to non-numeric resu lts) [facility] Basophils 0.3 % 0.0-2.0 Normal (applies to non-numeric resul ts) [facility] Immature Granulocytes 1.0 % 0.0-0.5 Above high normal [facility] Nucleated RBCs 0.00 % 0.00-0.20 Normal (applies to non-numeric r esults) [facility] Abs. Neutrophils 7.20 x1000/ul 1.92-8.31 Normal (applies to non-numeric results) [facility] Abs. Lymphocyte 1.69 x1000/ul 1.20-3.70 Normal (applies to non-n umeric results) [facility] Abs. Monocytes 0.52 x1000/ul 0.14-0.97 Normal (applies to non-nu meric results) [facility] Abs. Eosinophils 0.10 x1000/ul 0.00-0.76 Normal (applie s to non-numeric results) [facility] Abs. Basophils 0.03 x1000/ul 0.00-0.22 Normal (applies to non-n umeric results) [facility] Abs. Immature Gran. 0.10 x1000/ul 0.00-0.02 Above high normal [facility] Abs. Nucleated RBCs 0.00 x1000/ul 0.00-0.02 Normal (appl ies to non-numeric results) [facility] The above 24 analytes were performed by [facility] [id number] [facility], ,[place] [address] ID Date Data Source [id number] 06/16/2020 08:29:00 PM EST [facility] Name Value Range Interpretation Code Description Data Evelin rce(s) Supporting Document(s) Glucose, Fingerstick 285 mg/dl 70-110 Above high normal [facility] The above 1 analytes were performed by [facility] [id number] [facility], ,[place] [address] ID Date Data Source [id number] 06/22/2020 01:52:00 PM EST [facility] Name Value Range Interpretation Code Description Data Evelin rce(s) Supporting Document(s) Culture Result No Growth After 5 Days [facility] The above 1 analytes were performed by [facility] [id number], ,[place] [address] ID Date Data Source [id number] 06/22/2020 01:52:00 PM EST [facility] Name Value Range Interpretation Code Description Data Evelin rce(s) Supporting Document(s) Culture Result No Growth After 5 Days [facility] The above 1 analytes were performed by [facility] [id number], ,[place] [address] ID Date Data Source [id number] 06/16/2020 05:33:00 PM EST [facility] Name Value Range Interpretation Code Description Data Evelin rce(s) Supporting Document(s) AST 28 IU/L 15-37 Normal (applies to non-numeric resul ts) [facility] Sulfasalazine and sulfapyridine have the potential to falsely depressAspartate Aminotransferase results. Baseline values before medication administration are recommended. ALT 29 IU/L 16-61 Normal (applies to non-numeric resul ts) [facility] Sulfasalazine and sulfapyridine have the potential to falsely depressAlanine Aminotransferase results. Baseline values before medication administration are recommended. Alkaline Phosphatase 121 mIU/ml 50-136 Normal (applies to n on-numeric results) [facility] Total Bilirubin 0.60 mg/dl 0.20-1.00 Normal (applies to non-numeric results) [facility] Blood Urea Nitrogen 16 mg/dl 7-18 Normal (applies to non-nume kamilah results) [facility] Creatinine 0.82 mg/dl 0.67-1.17 Normal (applies to non-numeric resul ts) [facility] N-Acetylcysteine (NAC) and Metamizole bradley ve the potential to falselydepress Creatinine results. Baseline values before medication adminstration are recommended. Patients undergoing treatment with phenindione will have falselydepressed results. Patients on phenindione therapy should be tested with an alternativeCREA method.Toxic levels of acetaminophen may lead to falsely depressed results forpatient samples. Glomerular Filtration Rate >90.00 mL/min/1.73m2 [facility] GFR Reference Ranges:Normal Function or Mild Renal [...] of Health and the National KidneyFoundation. The [place] method used in calculating this result is traceable to [employer] standards. Glucose 279 mg/dl 70-110 Above high normal [facility] Sulfasalazine has the potential to false ly depress Glucose results. Sulfapyridine has the potential to falsely elevate Glucose results. Baseline values before medication administration are recommended. Calcium 9.1 mg/dl 8.5-10.1 Normal (applies to non-numeric resul ts) [facility] Total Protein 7.5 g/dl 6.4-8.2 Normal (applies to non-numeric re sults) [facility] Albumin 2.9 g/dl 3.4-5.0 Below low normal [facility] Sodium 133 mEq/L 136-145 Below low normal [facility] Potassium 4.4 mEq/L 3.5-5.1 Normal (applies to non-numeric resul ts) [facility] Chloride 99.0 mEq/L 98.0-107.0 Normal (applies to non-numeric resul ts) [facility] Carbon Dioxide 30.5 mMol/L 21.0-32.0 Normal (applies to non-numeric results) [facility] Anion Gap 7.9 7.0-15.0 Normal (applies to non-numeric resul ts) [facility] The above 16 analytes were performed by [facility] [id number] [place] [address], ,[place] [address] ID Date Data Source [id number] 06/16/2020 05:33:00 PM EST [facility] Name Value Range Interpretation Code Description Data Evelin rce(s) Supporting Document(s) Magnesium 1.9 mg/dl 1.6-2.6 Normal (applies to non-numeric resul ts) [facility] The above 1 analytes were performed by [facility] [id number] [facility], ,[place] [address] ID Date Data Source [id number] 06/16/2020 04:50:00 PM EST [facility] Name Value Range Interpretation Code Description Data Evelin rce(s) Supporting Document(s) WBC 8.37 x1000/ul 4.80-10.00 Normal (applies to non-numeric re sults) [facility] RBC 4.13 x1Mil/ul 4.70-6.10 Below low normal [facility] Hemoglobin 12.0 g/dl 14.0-18.0 Below low normal [facility] Hematocrit 36.7 % 42.0-52.0 Below low normal [facility] MCV 88.9 fL 80.0-94.0 Normal (applies to non-numeric resul ts) [facility] MCH 29.1 pg 27.0-31.0 Normal (applies to non-numeric resul ts) [facility] MCHC 32.7 g/dl 32.2-37.0 Normal (applies to non-numeric resul ts) [facility] RDW 12.1 % 11.5-14.5 Normal (applies to non-numeric resul ts) [facility] Platelet Count 352 x1000/ul 130-400 Normal (applies to non-numeric results) [facility] MPV 8.7 fL 9.4-12.4 Below low normal [facility] Neutrophils 66.1 % 40.0-74.0 Normal (applies to non-numeric resu lts) [facility] Lymphocytes 23.9 % 19.0-48.0 Normal (applies to non-numeric resu lts) [facility] Monocytes 6.0 % 3.4-9.0 Normal (applies to non-numeric resul ts) [facility] Eosinophils 1.8 % 0.0-7.0 Normal (applies to non-numeric resu lts) [facility] Basophils 0.5 % 0.0-2.0 Normal (applies to non-numeric resul ts) [facility] Immature Granulocytes 1.7 % 0.0-0.5 Above high normal [facility] Nucleated RBCs 0.00 % 0.00-0.20 Normal (applies to non-numeric r esults) [facility] Abs. Neutrophils 5.54 x1000/ul 1.92-8.31 Normal (applies to non-numeric results) [facility] Abs. Lymphocyte 2.00 x1000/ul 1.20-3.70 Normal (applies to non-n umeric results) [facility] Abs. Monocytes 0.50 x1000/ul 0.14-0.97 Normal (applies to non-nu meric results) [facility] Abs. Eosinophils 0.15 x1000/ul 0.00-0.76 Normal (applie s to non-numeric results) [facility] Abs. Basophils 0.04 x1000/ul 0.00-0.22 Normal (applies to non-n umeric results) [facility] Abs. Immature Gran. 0.14 x1000/ul 0.00-0.02 Above high normal [facility] Abs. Nucleated RBCs 0.00 x1000/ul 0.00-0.02 Normal (appl ies to non-numeric results) [facility] The above 24 analytes were performed by [facility]. [facility] [id number] [place] [address],[facility]#: [id number],[place] [address] ID Date Data Source [id number] 06/16/2020 04:09:54 PM EST [facility] Name Value Range Interpretation Code Description Data Evelin rce(s) Supporting Document(s) Consults [facility] KTEFNm1jEwLVOvGt43/PQSngRFOgb5AsMQuwOIj1EWmpNHGaD3AnNRU0dC9vCJG3KMqFOrGjDfIdHYDj [facility] [file] AgICAgICAgICAgICAgICAgICAgICAgICAgICAgICAgICAgICAgICAgICAgICAgICAgICAgICAgICAgIC AgICAgICAgICAgICAgICAgICAgICANCiAgICAgICAgICAgICAgICAgICAgICAgICAgICAgICAgICAgIC AgICAgICAgICAgICAgICAgICAgICAgICAgICAgICAg ICAgICAgICAgICAgICAgICAgICAgICAgICAgICAgICANCiAgICAgICAgICAgICAgICAgICAgICAgICAg ICAgICAgICAgICAgICAgICAgICAgICAgICAgICAgICAgICAgICAgICAgICAgICAgICAgICAgICAgICAg ICAgICAgICAgICAgICANCiAgICAgICAgICAgICAgIC AgICAgICAgICAgICAgICAgICAgICAgICAgICAgICAgICAgICAgICAgICAgICAgICAgICAgICAgICAgIC AgICAgICAgICAgICAgICAgICAgICAgICANCiAgICAgICAgICAgICAgICAgICAgICAgICAgICAgICAgIC AgICAgICAgICAgICAgICAgICAgICAgICAgICAgICAg ICAgICAgICAgICAgICAgICAgICAgICAgICAgICAgICAgICANCiAgICAgICAgICAgICAgICAgICAgICAg ICAgICAgICAgICAgICAgICAgICAgICAgICAgICAgICAgICAgICAgICAgICAgICAgICAgICAgICAgICAg ICAgICAgICAgICAgICAgICANCiAgICAgICAgICAgIC AgICAgICAgICAgICAgICAgICAgICAgICAgICAgICAgICAgICAgICAgICAgICAgICAgICAgICAgICAgIC AgICAgICAgICAgICAgICAgICAgICAgICAgICANCiAgICAgICAgICAgICAgICAgICAgICAgICAgICAgIC AgICAgICAgICAgICAgICAgICAgICAgICAgICAgICAg ICAgICAgICAgICAgICAgICAgICAgICAgICAgICAgICAgICAgICANCiAgICAgICAgICAgICAgICAgICAg ICAgICAgICAgICAgICAgICAgICAgICAgICAgICAgICAgICAgICAgICAgICAgICAgICAgICAgICAgICAg ICAgICAgICAgICAgICAgICAgICANCiAgICAgICAgIC AgICAgICAgICAgICAgICAgICAgICAgICAgICAgICAgICAgICAgICAgICAgICAgICAgICAgICAgICAgIC AgICAgICAgICAgICAgICAgICAgICAgICAgICAgICANCjw/uHMmG5qduAQmhwM0B2tnSm0CTi6AWT9cm4 VsYNSyHCqolsKyKdeRYnAjWIFcKqfGFqm4DMwjDM0E kKQeY9YqS7GtEAmaEF3HSIEfBYUwhBPjXAJgYYEjFrD8NLEaZSiuBW6VdKCoRAxpEBRaJYHkBpQcFZLf KZRqJXVuBMTrTZVWRZGbLXVbSkHgIEjwIS6Zx4ZucOK8FWc+Yd1EYW2py5DsMArvMQAbTV8vbd5WVSlV LcFwI6IvtjD5XYAuPDQyKc9IKEKrYHKrzJFcMgWsLB YWSyJnH5AloI31CPLKKo4+NNqvpyJbAvfLQzLgEJLma0HvFDf5BT2UDVOkZWj5aMPmR18ee9ZoeEHhGy vgTLQerJSdVZidGDReiLBeGAVyPSMNAIAmvOXoYyDpFoTrXtHdRLA1GFKpJP4qLQebAT0LQAV8BPzeGN VwJOJbO1hYXqZuTFpnHBIvuVgdXU3AIpNqV8HyrcCj dCAzMSAwIFINCj4+VQsewrDbXkkHZyKpDLRwk1DhQTc6NI6FNDMtSBcaOZ8HJCSaaK2zJMljNU6ZOvQi OAOaELIRXyFaL81yvIMkBBm4P5NlBsMnJXNhHasoIOEhLIeuJpShJWPnQxIlHMujIT2+ID4+LPpqVP5O RRgyxsEyEFXnEz3MGTCqMOQvSL5yHAKnBOTgO0S7qC nxFHHFWnZxP9fzlsjoZW6rNJRnY050lJjlhsNwYKJdPTTzJe7IIQDmHRC4SZOlsVUgNoIvSFPQRJmxJR 9OhLVjLAN2zF5cIGmmQOFeKUWdD4uLOpNxjQuhDN91oVwgptMboQDxKAm+Av6OPK1fa8JbAIr0nzFjQS jrKZN1TIdvBFDlULLfEJIgZBY3BWF6FGAOTgMcJRAi FPPcDVmjPQTnCYDapx3FYUZxWWYbCWUlKAWiCBYqJDTnYSbwSZKtAIRjKFoqPWLtAAJrHT4JGqZfQQTa ZDAzHEasNGXdDGNfbq2UWJWePFXyToy3WbIpNBMqDHSoXMkqNRWkXHB9ZNh0GWNgXAEkMM8GQcLdSNGc EXThIWHcYHKiBXVlbc0HSRSyUTDuZiOvFPNvJVOiPG EjBEiuAHLqGJG7VPF2KAUqSYJfTC0CInLiCGLvGSacFKEkOIBbXQPfnj5IMIQuVTWuMQMcETMhSTVhXU PiDCboYISxREKgDtDgZNQwBZWgVA9SLwEqBKClSGAfLFNdRKUgCUGkne7NGLGsSHPxQlX3VRJfZVKyDV GuUKgeVHLgHXCePcJ5PXHyBDUvID6DIjGdODNfLFH2 KArvBUJmPMDlid3TGYQkDRZmSkxqJiAsBQEjJIKyEXjhAZXfUWO4DnL5GHEiRNPxUS5DWwKzNJPcASL2 CdCfSXXqNZIqix5QAELmCFMbWJG4HrEwQWGjHQZnEJodJQIaXAS6HUU0YZTxYFBdGH2OWzQoUMScDDYf UGIiJULcKBWful3KBPTfWVHeQqEaBgPiYPQoNYKbKU byNJRtZHS6LyNjMFQoJSWsPT9TDzIvQLNvKYt1JwXhAKPlEAXxas3DZPCwYKHbUck7NjStKTDbAKHjCL fcKZRdNCU5BmF6LQBmIRBtBX7PAgHyQNVoTLj2HAGiSTTtVWKcka5BMITsMPDnARM5UHGfCFSqNMUdKC msJVMnEIG5YRFtPMSgBBTeBX5PWoFbJDFeInBlRNSs YUJgUFCuji4NSSOkYWZcXDV9GQItYBZxKPBxWTuxAOUsJOOgLtFmVNJqATGsNF7IKuWtDJfxHOTFSsw9 GEjrM7o4EASiXB5QJ4Fcu0OyXwPnHIVGUGxfMF3oftLrUWLvGj8MZ4vBWpneFGAuQbV7IVMpSZqbGwD0 JYJmO8U6IqFxEbMvIQPbKN9xSZU8HrVfDPf4CFSmSX WkTNHhBGB2WdIqKCAaWmQ1REOoZyTlZV1XZt2KXqI9TWG7uWYeAe7SHbW8QgPTEkIxRS5XIGe= ID Date Data Source [id number] 06/16/2020 04:08:53 PM EST [facility] Name Value Range Interpretation Code Description Data Evelin rce(s) Supporting Document(s) Consults [facility] NLCIFk8fElIHFlLi65/JIPcmEPTnn6MuUVagHPf1YIqaUZNoJ5RrLQU9aL7uAUQ3LZlQNoNoVeMcPMIr lbm [file] dbXlEEekEfp8VE9GYYPEH1PZVs== ID Date Data Source [id number] 06/16/2020 03:33:00 PM EST [facility] Name Value Range Interpretation Code Description Data Evelin rce(s) Supporting Document(s) Glucose, Fingerstick 261 mg/dl 70-110 Above high normal [facility] The above 1 analytes were performed by [facility] [id number] [place] [address],[facility]#: [id number],[place] [address] ID Date Data Source [id number] 06/16/2020 03:03:46 PM EST [facility] Name Value Range Interpretation Code Description Data Evelin rce(s) Supporting Document(s) Consults [facility] GTKUAf2dOjUZFjBc56/QFYvcLMDpl2QcIIpoHEe9JWrfSYQqJ1LyJOI0eO9uMXS6VHtRTlJjUiNeAORq lbm [file] sjfhtjjkv354Ckwabdk+HERNÁNDEZ/IB5gus80acc5mf3ndBY [file] JH4hQGAXCg8+BYipiBDosMicGKLMDsO2QMGgFQlpVZQFIg0B ID Date Data Source [id number] 06/16/2020 12:43:01 PM EST [facility] Name Value Range Interpretation Code Description Data Evelin rce(s) Supporting Document(s) H&P [facility] QCFAVc8uKqCKJbEi76/PLFcqFIFsf3YgAGkuFPe3NMqdGHPvI6PiPEZ2gP7bPCN2TMoPIvDsMiJcKHWv lbm JrFmtKHdFfXHYmRxbHAqYfYMwpRhegqZBwTJ1KhUG2WKGmO87dVIZkLTPjC0FtAWY8ADU+Tc5XYLTjuY FxSZ3BPptQ7D6Em1fDSNFbegk/hIz3G9HUxK+vwfyfhKxVMPhs0rCaMc7DUjdkehtBtif/TaJUijbT8f wROpLeErxbzhVG2CH7o7lbrml/+258vOBk607M/7uf WRF6p5+9P/8XBi3FnTeWrO+gy9BRbT/2Pd8N1JDIKj8nJVKJbBs/V+xceskf0nq0ysQkeobwX9Shys1g 415V4yVjIO5z0q7/Ph252P8z+l6FDu/xP9KQb6m33Pp5ARYfjHem1g8iu/JMjiLTVI5Fsg2/ANTIONETTE+P6sso [file] ICAgICAgICAgICAgICAgICAgICAgICAgICAgICAgICAgICAgICAgICAgICAgICAgICAgDQogICAgICAg ICAgICAgICAgICAgICAgICAgICAgICAgICAgICAgIC AgICAgICAgICAgICAgICAgICAgICAgICAgICAgICAgICAgICAgICAgICAgICAgICAgICAgICAgICAgIC AgDQogICAgICAgICAgICAgICAgICAgICAgICAgICAgICAgICAgICAgICAgICAgICAgICAgICAgICAgIC AgICAgICAgICAgICAgICAgICAgICAgICAgICAgICAg ICAgICAgICAgICAgDQogICAgICAgICAgICAgICAgICAgICAgICAgICAgICAgICAgICAgICAgICAgICAg ICAgICAgICAgICAgICAgICAgICAgICAgICAgICAgICAgICAgICAgICAgICAgICAgICAgICAgDQogICAg ICAgICAgICAgICAgICAgICAgICAgICAgICAgICAgIC AgICAgICAgICAgICAgICAgICAgICAgICAgICAgICAgICAgICAgICAgICAgICAgICAgICAgICAgICAgIC AgICAgDQogICAgICAgICAgICAgICAgICAgICAgICAgICAgICAgICAgICAgICAgICAgICAgICAgICAgIC AgICAgICAgICAgICAgICAgICAgICAgICAgICAgICAg ICAgICAgICAgICAgICAgDQogICAgICAgICAgICAgICAgICAgICAgICAgICAgICAgICAgICAgICAgICAg ICAgICAgICAgICAgICAgICAgICAgICAgICAgICAgICAgICAgICAgICAgICAgICAgICAgICAgICAgDQog ICAgICAgICAgICAgICAgICAgICAgICAgICAgICAgIC AgICAgICAgICAgICAgICAgICAgICAgICAgICAgICAgICAgICAgICAgICAgICAgICAgICAgICAgICAgIC AgICAgICAgDQogICAgICAgICAgICAgICAgICAgICAgICAgICAgICAgICAgICAgICAgICAgICAgICAgIC AgICAgICAgICAgICAgICAgICAgICAgICAgICAgICAg ICAgICAgICAgICAgICAgICAgDQogICAgICAgICAgICAgICAgICAgICAgICAgICAgICAgICAgICAgICAg ICAgICAgICAgICAgICAgICAgICAgICAgICAgICAgICAgICAgICAgICAgICAgICAgICAgICAgICAgICAg XXp0B6liEFQvSWHjRJ9wPEa0Ai9+FXgAAuNePKG9qn NviI2WSW1gm5YpDAipCOTmz7HsJYc5UU6QETLuXTymNH2HYJpmul2AZVUyNFKkeBOAq7hhAlAbRIE3XA IoCozgHA0MACEuI3ocqyVgPWSbXWUGKOniGTXLHPlbWOIMRGUsIGYrMjWhXLurWM8Uj4CawAC7KSl+Pg 3CLT2ke5NxDSrxEaCtQG1ibd9BOOoMOwHlP0DqeaQ0 OCG5RVKkDp0NZASdVJHmzZMzKiQySDAOAdYtZ8CjcK79SDMGFk2+FOfrrsDoRucESzA0CFGew3NlVSd3 BQ4XLCSyCPz5iQCaNQHDTIG0CUJoh9ndgENOKEfmfwrcGW2UHDG4TIRjGwDuYfLuZMJnJhnbACKZSMiY NmKwK2Qmv4MiOkZ1AOZdGmOwTPnmRBUeNeX8QX04xZ dnNC9CRRLyIVAzZF59AZL5AFGgMz7CRq1XLmDwIZ2bcm4NBuveZZNvEjmABdm1UHjtEF8FoBOsD1BqlA Ukn3pKEuFlO9LKUWO6OZRdYu7BRZHrRxOaQKVfHQxiFM0vWWIxXGQNpTsbydP7DN0ZWW9zkkBhVR2QGl KmJk1qBi1CGjLaC8SzI9RbDROmUFJPHWxiZI7STVex JN8sTC4Zn5MRxCXuxE3kve4NFJQnQTSfHkhrsp0HSoxqD5Q1cKgiXBDaOrDvDVCQZDrcFG6EXKGhGHP3 GQNmRDNqXPEQKjUzF41sFW4TW7Jcq25lDeD2YLGlFfShWIscBZ05dImypcYvwRSkyVzlUX6NZe6+DQpl bmRvYmoNCnhyZWYNCjAgMjkNCjAwMDAwMDAwMDAgNj H3TlJiQg4KJKIpATArWEYlAgTvRVDgDJXaZVmbTMPbHYS9Vhc6KPYiMRHbHP2PWxGqHFAtVKkaKTEtKK HnPJVcqb2SOZLxDMZjHVU0GuEdSLMvWBOnGSpeXEMaLXDhQFmrCNHcASMrTI0NLkQyFKKnVMHyKRNvUE VeASUahh5XFGGbJPZcDhw7MKXqADIaNLBeUNxjWMWx AAY6MLBmYHJnXMLpEE5PCgYhDQUgEKx7VqHnOAYnNNZrao0QKLNlZHIzTRoxYKBnRMMtOFLmCEdsQWYn NEVyIkF3OOAnACWaKB5GSdShJVZeUFF2BtNuYGKgMTXofy0EMUAdLSEtXEviJZOfUSFrJAIiGWkmQHXp ASQjHGLuJWLgCXMwHD8AKjKzKXTsBEYcYpAsOHWmNY Sarv6SXKKvMELkBcI6CGLcXHCoHETtGNapLIUbBGNsBui5BVBuZDWgFL2IZdTwLUBzXRY4UiAkISIdYH Qkws0XANMwZJHxQLFpIJXoVDAbGYVzNNlwRUHzABR5QxX2QZAcDAZwXZ6RIgToXULvGIT1ZNTyGASjIR Fmug9AJWQrLAOtFFx4KPCiCXSlOCWeZLprAKGvCQD0 VLh9SLAgPWIyKO9ZGyRlSHAnPOZzLfXbOZMjVTVpfb4LLMSbZBIwRmndXXNrZTRnPZUbVOtuRBZqGBV7 CNN9OABwXJAzSL6SHiZlTCXoIXkjJbxtJUTbVQXhts9AEQHiGZLeETL1QyOeVQFtFWJuULu8apFlfUCa VFy8AL0EI7XqhlSoZvvGPj4Ze100WVW4AOOxLs4ZF4 ctXp3bLHMaMXNRWx0QRCf2XoF3LbL5KMLwPES7GCNuEGx2TDJ4LIIgTyPuHAS2NFW+IDxjNThiZDkxNW NaHKKlMLM9WgwmJLK0WWM7ZjO5ViEjST1sMKRDWf4+YFqhxDWgqRxmKOKVPvF5FpToNLptFDEEVn0Z ID Date Data Source [id number] 06/16/2020 08:17:00 AM [facility] Bridget Ce is a rapid, automated qualita tive anddifferentiation of Influenza type A,B and AKRH-FAB-6IKFN-RT-PCR testNORMAL VALUE IS "NOT DETECTED".Limitations of the bridget ce Influenza A/B & NOYS-BOQ-6jxchu method.Modifications to manufacturers recommendation and proceduresmay alter performance of the test.Negative results do not preclude Influenza A,B or SARS- ITR3oyuhowxumz and should not be used as the [...] rce(s) Supporting Document(s) ID Date Data Source [id number] 06/16/2020 08:17:00 AM [facility] Bridget Ce is a rapid, automated qualita tive anddifferentiation of Influenza type A,B and WFCS-SWY-9PJFL-RT-PCR testNORMAL VALUE IS "NOT DETECTED".Limitations of the bridget ce Influenza A/B & DSGZ-PWZ-5yeqpy method.Modifications to manufacturers recommendation and proceduresmay alter performance of the test.Negative results do not preclude Influenza A,B or SARS- AMW2spyltkhyir and should not be used as the [...] Supporting Document(s) Extended hours FLU/COV2 NA[facility] ID Date Data Source [id number] 06/16/2020 05:56:00 AM EST [facility] DRAWN FROM PICC LINE DRAWN FROM PICC LINE Name Value Range Interpretation Code Description Data Evelin rce(s) Supporting Document(s) Leukocytes [#/volume] in Blood by Automated count 8.5 10*3/uL 4.45-10 .71 N [facility] Erythrocytes [#/volume] in Blood by Automated count 4.22 10*6/uL 4.3-6.1 Below low normal [facility] Hemoglobin [Moles/volume] in Blood 12.3 g/dL 13-18 Below low no rmal [facility] Hematocrit [Volume Fraction] of Blood by Automated count 37.0 % 42-52 Below low normal [facility] Erythrocyte mean corpuscular volume [Ent itic volume] in Cord blood by Automated count 87.7 fL 80-96 N [facility] ital Erythrocyte mean corpuscular hemoglobin [Entitic mass] by Automated count 29.1 pg 27-31 [facility] mean corpuscular hemoglobin concentration [Mass/volume] in Cord blood 33.2 g/dL 33-37 N [facility] ital Erythrocyte distribution width [Entitic volume] by Automated count 12 % 11-15 N [facility] Platelets [#/volume] in Blood by Automated count 374 10*3/uL 130-472 N [facility] Platelet mean volume [Entitic volume] in Blood 8.9 fL 9.1-13. 1 Below low normal [facility] Neutrophils/100 leukocytes in Blood by Automated count 65.2 % 41- 77 N [facility] Neutrophils [#/volume] in Blood by Automated count 5.6 U 1.7-7.6 N [facility] Lymphocytes/100 leukocytes in Blood by Automated count 25.0 % 14- 46 N [facility] Lymphocytes [#/volume] in Blood by Automated count 2.1 U 0.6-4.6 N [facility] Monocytes/100 leukocytes in Blood by Automated count 6.1 % 4-12 N [facility] Monocytes [#/volume] in Blood by Automated count 0.5 U 0.2-1.2 N [facility] Eosinophils/100 leukocytes in Blood by Automated count 1.6 % 0-7 N [facility] Eosinophils [#/volume] in Blood by Automated count 0.1 U 0.0-0.5 N [facility] Basophils/100 leukocytes in Blood by Automated count 0.5 % 0.4-1 .3 N [facility] Basophils [#/volume] in Blood by Automated count 0.0 U 0.0-0.2 N [facility] NUCLEATED RED BLOOD CELL 0 % [facility] NUCLEATED RED BLOOD CELL# 0 U [facility] Immature granulocytes [Presence] in Blood by Automated count 0-2 N [facility] Immature granulocytes [#/volume] in Blood by Automated count 0.1 U 0-0.1 N [facility] Manual Differential panel - Blood NO [facility] ID Date Data Source [id number] 06/16/2020 06:15:00 AM EST [facility] DRAWN FROM PICC LINE DRAWN FROM PICC LINE Name Value Range Interpretation Code Description Data Evelin rce(s) Supporting Document(s) Urea nitrogen [Mass/volume] in Serum or Plasma 15 mg/dL 9-23 [facility] Sodium [Moles/volume] in Serum or Plasma 138 mmol/L 132-146 [facility] Potassium [Moles/volume] in Serum or Plasma 4.3 mmol/L 3.5-5.5 [facility] Chloride [Moles/volume] in Serum or Plasma 102 mmol/L 99-109 [facility] Carbon dioxide, total [Moles/volume] in Serum or Plasma 32 mmol/ L 20-31 Above high normal [facility] Anion gap in Serum or Plasma 8 mmol/L 8-16 [facility] Glucose [Mass/volume] in Serum or Plasma 242 mg/dL 74-106 Above high normal [facility] Creatinine 0.9 mg/dL 0.5-1.1 [facility] Glomerular filtration rate/1.73 sq M.pre dicted [Volume Rate/Area] in Serum or Plasma Greater Than 60 ABOVE 60 [facility] Alanine aminotransferase [Enzymatic acti vity/volume] in Serum or Plasma by With P-5'-P 31 U/L 10-49 N [facility] ital Aspartate aminotransferase [Enzymatic ac tivity/volume] in Serum or Plasma by With P-5'-P 23 U/L 0-33 N [facility] Alkaline phosphatase [Enzymatic activity/volume] in Serum or Plasma 121 U/L 45-129 N [facility] Calcium [Mass/volume] in Serum or Plasma 9.5 mg/dL 8.5-10.1 N [facility] Bilirubin.total [Mass/volume] in Serum or Plasma 0.7 mg/dL 0.3-1.2 N [facility] Albumin [Mass/volume] in Serum or Plasma by Bromocresol purple (BCP) dye binding method 3.0 g/dL 3.2-4.8 Below low normal [facility] Protein [Mass/volume] in Serum or Plasma 7.8 g/dL 5.7-8.2 N [facility] ID Date Data Source [id number] 06/16/2020 12:00:00 AM EST [facility] Name Value Range Interpretation Code Description Data Evelin rce(s) Supporting Document(s) SARS-CoV2 Rapid PCR Not Detected [facility] This lab was ordered by [facility] and reported by [facility]. ID Date Data Source [id number] 06/15/2020 01:10:00 PM [facility] Name: JAGJIT IBARRA : 1960 Age: 60 MR#: [id number] Admit Date: 06/08/20 Provider: Nicolle Walls Room [...] Admit to Inpatient, Acute [STATUS] Routine Location: [facility] Primary diagnosis: Chest pain Isolation: Droplet Status: [...] % (Auto) 70.1, Lymph % (Auto) 20.8, Citrus % (Auto) 5.2, Eos % (Auto) 1.5, [...] left shoulder, not elsewhere classified SNOMED Code(s): [id number] A P Free Text/Narrative :: Hospital Course: [...] home with IV antibiotics following DANIELE at [place]. Patient has been accepted by Dr. Cruz at [facility] Cardiology. Vital signs temperature 97.1 right pulse 77, blood pressure 127/83, respiratory rate 20, oxygen saturation 96% on room air. CBC reviewed within normal limits. CMP reviewed within normal limits 1. Suspected endocarditis - Patient had PICC line placed on 06/13/2020 ; will receive IV Cefepime x 4 weeks (or as per infectious disease) - Being followed by [place]; Willian doing PICC line care - Staph [...] Status post AICD pacemaker - F/u with electrophysiology/[facility] Cardiology - The ED physician contacted [facility] cardiology who noted that the patient's pacemaker showed no abnormality, battery failure, or arrhythmia. 4. History of pulmonary embolism/DVT - Continue Eliquis 5. Status post [place] filter placement 6. Atrial fibrillation - Continue [...] rce(s) Supporting Document(s) ID Date Data Source [id number] 06/16/2020 07:27:00 AM [facility] Name: JAGJIT IBARRA : 1960 Age: 60 MR#: [id number] Admit Date: 06/08/20 Provider: Nicolle Walls Room [...] for CHEST PAIN Family MD Cindy Iraheta, [employer] Discharge Date: 06/16/20 Most Recent Lab Results: 06/15/20 04:00 06/15/20 04:00 Laboratory Results Last 24 hours 06/14/20 07:30: WBC 9.6, RBC 4.29 L, Hgb 12.2 L, Hct 37.4 L, MCV 87.2, MCH 28.4, MCHC 32.6 L, RDW 12, Plt Count 377, MPV 8.7 L, Immature Gran % (Auto) 2.6 H, Neut % (Auto) 70.5, Lymph % (Auto) 19.2,Citrus % (Auto) 5.7, Eos % (Auto) 1.5, [...] % (Auto) 70.1, Lymph % (Auto) 20.8, Citrus % (Auto) 5.2, Eos % (Auto) 1.5, [...] for uncontrolled hyperglycemia. The ED physician contacted [facility] cardiologywho noted that the patient's pacemaker showed [...] chest painhas since resolved. Dr. Ferreira from [facility] Cardiology saw the patient as echo revealed [...] The patient was due to see the radiation control specialist on 06/13 regarding his ICD but this [...] Q8H for treatment of suspected infective endocarditis. [id number] first dose on evening of 06/09, as of 06/16/2020 has received his first AM dose at 0400. of his 28 total days of IV ABX. Case management has been in contact with [place] for approval of IV Cef[place]. Per [place] request patient needs a DANIELE before IV ABX will be approved at home.Patient has been accepted by Dr. Cruz of [facility] cardiology. Patient Covid-19 PCR has been negative [...] rce(s) Supporting Document(s) ID Date Data Source [id number] 06/15/2020 05:06:00 AM EST [facility] LINE DRAW LINE DRAW Name Value Range Interpretation Code Description Data Evelin rce(s) Supporting Document(s) Leukocytes [#/volume] in Blood by Automated count 10.0 10*3/uL 4.45-1 0.71 N [facility] Erythrocytes [#/volume] in Blood by Automated count 4.36 10*6/uL 4.3- 6.1 N [facility] Hemoglobin [Moles/volume] in Blood 12.6 g/dL 13-18 Below low no rmal [facility] Hematocrit [Volume Fraction] of Blood by Automated count 38.5 % 42-52 Below low normal [facility] Erythrocyte mean corpuscular volume [Ent itic volume] in Cord blood by Automated count 88.3 fL 80-96 N [facility] Erythrocyte mean corpuscular hemoglobin [Entitic mass] by Automated count 28.9 pg 27-31 N [facility] Erythrocyte mean corpuscular hemoglobin concentration [Mass/volume] in Cord blood 32.7 g/dL 33-37 Below low normal [facility] Erythrocyte distribution width [Entitic volume] by Automated count 12 % 11-15 N [facility] Platelets [#/volume] in Blood by Automated count 415 10*3/uL 130-472 N [facility] Platelet mean volume [Entitic volume] in Blood 8.9 fL 9.1-13. 1 Below low normal [facility] Neutrophils/100 leukocytes in Blood by Automated count 70.1 % 41- 77 N [facility] Neutrophils [#/volume] in Blood by Automated count 7.0 U 1.7-7.6 N [facility] Lymphocytes/100 leukocytes in Blood by Automated count 20.8 % 14- 46 N [facility] Lymphocytes [#/volume] in Blood by Automated count 2.1 U 0.6-4.6 N [facility] Monocytes/100 leukocytes in Blood by Automated count 5.2 % 4-12 N [facility] Monocytes [#/volume] in Blood by Automated count 0.5 U 0.2-1.2 N [facility] Eosinophils/100 leukocytes in Blood by Automated count 1.5 % 0-7 N [facility] Eosinophils [#/volume] in Blood by Automated count 0.2 U 0.0-0.5 N [facility] Basophils/100 leukocytes in Blood by Automated count 0.6 % 0.4-1 .3 N [facility] Basophils [#/volume] in Blood by Automated count 0.1 U 0.0-0.2 N [facility] NUCLEATED RED BLOOD CELL 0 % [facility] NUCLEATED RED BLOOD CELL# 0 U [facility] Immature granulocytes [Presence] in Blood by Automated count 0-2 N [facility] Immature granulocytes [#/volume] in Blood by Automated count 0.2 U 0-0.1 Above high normal [facility] Manual Differential panel - Blood NO [facility] ID Date Data Source [id number] 06/15/2020 05:53:00 AM [facility] LINE DRAW LINE DRAW Name Value Range Interpretation Code Description Data Evelin rce(s) Supporting Document(s) Urea nitrogen [Mass/volume] in Serum or Plasma 13 mg/dL 9-23 N [facility] Sodium [Moles/volume] in Serum or Plasma 138 mmol/L 132-146 N [facility] Potassium [Moles/volume] in Serum or Plasma 4.4 mmol/L 3.5-5.5 N [facility] Chloride [Moles/volume] in Serum or Plasma 101 mmol/L 99-109 N [facility] Carbon dioxide, total [Moles/volume] in Serum or Plasma 31 mmol/L 20 -31 N [facility] Anion gap in Serum or Plasma 10 mmol/L 8-16 N [facility] Glucose [Mass/volume] in Serum or Plasma 242 mg/dL 74-106 Above high normal [facility] Creatinine 1.0 mg/dL 0.5-1.1 N [facility] Glomerular filtration rate/1.73 sq M.pre dicted [Volume Rate/Area] in Serum or Plasma Greater Than 60 ABOVE 60 [facility] Alanine aminotransferase [Enzymatic acti vity/volume] in Serum or Plasma by With P-5'-P 31 U/L 10-49 N [facility] ital Aspartate aminotransferase [Enzymatic ac tivity/volume] in Serum or Plasma by With P-5'-P 25 U/L 0-33 N [facility] pital Alkaline phosphatase [Enzymatic activity/volume] in Serum or Plasma 127 U/L 45-129 N [facility] Calcium [Mass/volume] in Serum or Plasma 9.5 mg/dL 8.5-10.1 N [facility] Bilirubin.total [Mass/volume] in Serum or Plasma 0.6 mg/dL 0.3-1.2 [facility] Albumin [Mass/volume] in Serum or Plasma by Bromocresol purple (BCP) dye binding method 2.9 g/dL 3.2-4.8 Below low normal [facility] Protein [Mass/volume] in Serum or Plasma 7.7 g/dL 5.7-8.2 N [facility] ID Date Data Source [id number] 06/14/2020 05:27:00 PM [facility] Name: JAGJIT IBARRA : 1960 Age: 60 MR#: [id number] Admit Date: 06/08/20 Provider: Unique Ford Room [...] Admit to Inpatient, Acute [STATUS] Routine Location: [facility] Primary diagnosis: Chest pain Isolation: Droplet Status: [...] % (Auto) 70.5, Lymph % (Auto) 19.2, Citrus % (Auto) 5.7, Eos % (Auto) 1.5, [...] left shoulder, not elsewhere classified SNOMED Code(s): 55710835921202416 A P Free Text/Narrative :: 60 y/o male with PMH of 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 Patient had an ICD placed in 2014 and had a CVA in 2016. Labs reviewed. Plan 1. Suspected endocarditis - IV Vanco discontinued as Staph aureus is Methicillin suscepti ble, switched to IV Cefazolin 2g IV Q8H (x4 weeks) - Patient needs DANIELE- will arrange for out-patient DANIELE through [facility] Cardiology - Patient has to reschedule appointment on 06/13 at [facility] Cardiology in [place] - Blood cultures from 06/08, 06/09, 06/10 were negative after 48 hours - Dr. Ferreira from [facility] Cardiology saw the patient and recommended the following: - 4-6 weeks total of ABX - Repeat blood cultures the day after ABX are completed - If blood cultures sterilize immediately, complete antibiotic course and reassess 2. Chest pain - Resolved; continue telemetry - TSH WNL, repeat troponin negative 3. Status post AICD pacemaker - Will see radiation control specialist; needs follow- up appointment rescheduled 4. History [...] Tramadol prn for pain Plan: Discharge pending [place] approval for out-patient IV antibiotic treatment- anticipate tomorrow. Just need final approval from [place]. Patient will be set up for follow-up [...] Llamas MD 06/15/20710 D: ANTONIETTASAJoelle 06/14/201726 T: [facility] 06/14/201726 CC: Name Value Range Interpretation Code Description Data Evelin rce(s) Supporting Document(s) ID Date Data Source [id number] 06/14/2020 08:07:00 AM EST [facility] @06/14/20 0754: MANUAL DIFF added. RFLXG = DIFF. @06/14/20 0754: MANUAL DIFF added. RFLXG = DIFF. Name Value Range Interpretation Code Description Data Evelin rce(s) Supporting Document(s) Leukocytes [#/volume] in Blood by Automated count 9.6 10*3/uL 4.45-10 .71 N [facility] Erythrocytes [#/volume] in Blood by Automated count 4.29 10*6/uL 4.3-6.1 Below low normal [facility] Hemoglobin [Moles/volume] in Blood 12.2 g/dL 13-18 Below low no rmal [facility] Hematocrit [Volume Fraction] of Blood by Automated count 37.4 % 42-52 Below low normal [facility] Erythrocyte mean corpuscular volume [Ent itic volume] in Cord blood by Automated count 87.2 fL 80-96 N [facility] Erythrocyte mean corpuscular hemoglobin [Entitic mass] by Automated count 28.4 pg 27-31 N [facility] Erythrocyte mean corpuscular hemoglobin concentration [Mass/volume] in Cord blood 32.6 g/dL 33-37 Below low normal [facility] Erythrocyte distribution width [Entitic volume] by Automated count 12 % 11-15 N [facility] Platelets [#/volume] in Blood by Automated count 377 10*3/uL 130-472 N [facility] Platelet mean volume [Entitic volume] in Blood 8.7 fL 9.1-13. 1 Below low normal [facility] Neutrophils/100 leukocytes in Blood by Automated count 70.5 % 41- 77 N [facility] Neutrophils [#/volume] in Blood by Automated count 6.8 U 1.7-7.6 N [facility] Lymphocytes/100 leukocytes in Blood by Automated count 19.2 % 14- 46 N [facility] Lymphocytes [#/volume] in Blood by Automated count 1.8 U 0.6-4.6 N [facility] Monocytes/100 leukocytes in Blood by Automated count 5.7 % 4-12 N [facility] Monocytes [#/volume] in Blood by Automated count 0.6 U 0.2-1.2 [facility] Eosinophils/100 leukocytes in Blood by Automated count 1.5 % 0-7 N [facility] Eosinophils [#/volume] in Blood by Automated count 0.1 U 0.0-0.5 N [facility] Basophils/100 leukocytes in Blood by Automated count 0.5 % 0.4-1 .3 N [facility] Basophils [#/volume] in Blood by Automated count 0.1 U 0.0-0.2 N [facility] NUCLEATED RED BLOOD CELL 0 % [facility] NUCLEATED RED BLOOD CELL# 0 U [facility] Immature granulocytes [Presence] in Blood by Automated count 0-2 Above high normal [facility] Immature granulocytes [#/volume] in Blood by Automated count 0.3 U 0-0.1 Above high normal [facility] Manual Differential panel - Blood Manual Diff Added [facility] ID Date Data Source [id number] 06/14/2020 08:19:00 AM EST [facility] @06/14/20 0754: MANUAL DIFF added. RFLXG = DIFF. @06/14/20 0754: MANUAL DIFF added. RFLXG = DIFF. Name Value Range Interpretation Code Description Data Evelin rce(s) Supporting Document(s) Urea nitrogen [Mass/volume] in Serum or Plasma 13 mg/dL 9-23 N [facility] Sodium [Moles/volume] in Serum or Plasma 135 mmol/L 132-146 [facility] Potassium [Moles/volume] in Serum or Plasma 4.1 mmol/L 3.5-5.5 [facility] Chloride [Moles/volume] in Serum or Plasma 101 mmol/L 99-109 [facility] Carbon dioxide, total [Moles/volume] in Serum or Plasma 28 mmol/L 20 -31 N [facility] Anion gap in Serum or Plasma 10 mmol/L 8-16 N [facility] Glucose [Mass/volume] in Serum or Plasma 216 mg/dL 74-106 Above high normal [facility] Creatinine 0.9 mg/dL 0.5-1.1 [facility] Glomerular filtration rate/1.73 sq M.pre dicted [Volume Rate/Area] in Serum or Plasma Greater Than 60 ABOVE 60 [facility] Alanine aminotransferase [Enzymatic acti vity/volume] in Serum or Plasma by With P-5'-P 26 U/L 10-49 N [facility] ital Aspartate aminotransferase [Enzymatic ac tivity/volume] in Serum or Plasma by With P-5'-P 25 U/L 0-33 N [facility] pital Alkaline phosphatase [Enzymatic activity/volume] in Serum or Plasma 110 U/L 45-129 N [facility] Calcium [Mass/volume] in Serum or Plasma 8.9 mg/dL 8.5-10.1 N [facility] Bilirubin.total [Mass/volume] in Serum or Plasma 0.7 mg/dL 0.3-1.2 N [facility] Albumin [Mass/volume] in Serum or Plasma by Bromocresol purple (BCP) dye binding method 2.8 g/dL 3.2-4.8 Below low normal [facility] Protein [Mass/volume] in Serum or Plasma 7.6 g/dL 5.7-8.2 [facility] ID Date Data Source [id number] 06/14/2020 08:07:00 AM [facility] @06/14/20 0754: MANUAL DIFF added. RFLXG = DIFF. @06/14/20 0754: MANUAL DIFF added. RFLXG = DIFF. Name Value Range Interpretation Code Description Data Evelin rce(s) Supporting Document(s) Cells counted [#] 100 [facility] Neutrophils [#/volume] in Blood by Manual count 65 % 41-77 N [facility] Lymphocytes [#/volume] in Blood by Manual count 19 % 14-46 N [facility] Monocytes [#/volume] in Blood by Manual count 12 % 4-12 N [facility] Eosinophils [#/volume] in Blood by Manual count 3 % 0-7 N [facility] Basophils [#/volume] in Blood by Manual count 1 % 0-2 N [facility] Platelets [#/volume] in Blood by Estimate APPEARS NORMAL NORMAL [facility] Morphology [Interpretation] in Blood Narrative APPEARS NORMAL NORMAL [facility] ID Date Data Source [id number] 06/13/2020 04:35:00 PM [facility] Name: JAGJIT IBARRA : 1960 Age: 60 MR#: [id number] Admit Date: 06/08/20 Provider: Unique Ford Room [...] Admit to Inpatient, Acute [STATUS] Routine Location: [facility] Primary diagnosis: Chest pain Isolation: Droplet Status: [...] % (Auto) 71.2, Lymph % (Auto) 18.5, Citrus % (Auto) 6.0, Eos % (Auto) 1.1, [...] left shoulder, not elsewhere classified SNOMED Code(s): [id number] A P Free Text/Narrative :: 60 y/o male with PMH of 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 Ferreira from [facility] Cardiology saw the patient and recommended the following: - 4-6 weeks total of ABX - Daily blood cultures x 3 days - Repeat blood cultures the day after ABX are completed - If daily blood cultures are positive or positive after completing ABX, patient will be required to have ICD removed (he is scheduled to see radiation control specialist regarding ICD next week) - If blood cultures sterilize immediately, complete antibiotic course and reassess 2. Chest pain - Resolved; continue telemetry - TSH WNL, repeat troponin negative 3. Status post AICD pacemaker - Will see radiation control specialist; needs follow-up appointment rescheduled 4. History of pulmonary embolism/DVT - Continue Eliquis 5. Status post [place] filter placement 6. Atrial fibrillation - Continue [...] PICC line was placed today. Discharge pending [place] approval for out-patient IV antibiotic treatment- anticipate tomorrow. Working to obtain DANIELE to determine endocarditis status and appropriate treatment regimen. Patient was scheduled to see radiation control specialist at [facility] cardiology? for generator change of pacemaker on [...] by Christo Llamas MD> Christo Llamas MD 06/13/20 1728 D: [facility] 06/13/20 1635 T: [facility] 06/13/20 1635 CC: Name Value Range Interpretation Code Description Data Evelin rce(s) Supporting Document(s) ID Date Data Source [id number] 06/13/2020 11:37:00 AM EST [facility] [address] [place] [address] [phone] NAME SEX PT STATUS ACCOUNT NUMBER JAGJIT IBARRA ADM IN [id number] ORDERING PHYSICIAN LOCATION MEDICAL RECORD NO. BETTINA CHOUBMESSER [id number] ATTENDING PHYSICIAN DATE OF DATE OF EXAM/TIME [...] Trans Dt/Tm: Trans by: DT Prt Dt/Tm: [id number]: Total DLP = 0.00 mGy-cm Fluoroscopy Time (in secs): Name Value Range Interpretation Code Description Data Evelin rce(s) Supporting Document(s) ID Date Data Source [id number] 06/13/2020 09:59:00 AM EST [facility] ([facility]) Name Value Range Interpretation Code Description Data [facility] rce(s) Supporting Document(s) .Scanned Labs Laboratory test result [facility] ([facility]) ID Date Data Source [id number] 06/13/2020 06:50:00 AM [facility] @06/13/20 0648: MANUAL DIFF added. RFLXG = DIFF. @06/13/20 0648: MANUAL DIFF added. RFLXG = DIFF. Name Value Range Interpretation Code Description Data Evelin rce(s) Supporting Document(s) Urea nitrogen [Mass/volume] in Serum or Plasma 10 mg/dL 9-23 N [facility] Sodium [Moles/volume] in Serum or Plasma 137 mmol/L 132-146 N [facility] Potassium [Moles/volume] in Serum or Plasma 4.3 mmol/L 3.5-5.5 N [facility] Chloride [Moles/volume] in Serum or Plasma 101 mmol/L 99-109 N [facility] Carbon dioxide, total [Moles/volume] in Serum or Plasma 29 mmol/L 20 -31 N [facility] Anion gap in Serum or Plasma 11 mmol/L 8-16 N [facility] Glucose [Mass/volume] in Serum or Plasma 237 mg/dL 74-106 Above high normal [facility] Creatinine 0.9 mg/dL 0.5-1.1 [facility] Glomerular filtration rate/1.73 sq M.pre dicted [Volume Rate/Area] in Serum or Plasma Greater Than 60 ABOVE 60 [facility] Alanine aminotransferase [Enzymatic acti vity/volume] in Serum or Plasma by With P-5'-P 25 U/L 10-49 [facility] ital Aspartate aminotransferase [Enzymatic ac tivity/volume] in Serum or Plasma by With P-5'-P 19 U/L 0-33 N [facility] pital Alkaline phosphatase [Enzymatic activity/volume] in Serum or Plasma 119 U/L 45-129 N [facility] Calcium [Mass/volume] in Serum or Plasma 8.8 mg/dL 8.5-10.1 [facility] Bilirubin.total [Mass/volume] in Serum or Plasma 0.6 mg/dL 0.3-1.2 [facility] Albumin [Mass/volume] in Serum or Plasma by Bromocresol purple (BCP) dye binding method 2.7 g/dL 3.2-4.8 Below low normal [facility] Protein [Mass/volume] in Serum or Plasma 6.9 g/dL 5.7-8.2 [facility] ID Date Data Source [id number] 06/13/2020 07:04:00 AM EST [facility] @06/13/20 0648: MANUAL DIFF added. RFLXG = DIFF. @06/13/20 0648: MANUAL DIFF added. RFLXG = DIFF. Name Value Range Interpretation Code Description Data Evelin rce(s) Supporting Document(s) Leukocytes [#/volume] in Blood by Automated count 10.4 10*3/uL 4.45-1 0.71 N [facility] Erythrocytes [#/volume] in Blood by Automated count 4.16 10*6/uL 4.3-6.1 Below low normal [facility] Hemoglobin [Moles/volume] in Blood 12.0 g/dL 13-18 Below low no rmal [facility] Hematocrit [Volume Fraction] of Blood by Automated count 36.3 % 42-52 Below low normal [facility] Erythrocyte mean corpuscular volume [Ent itic volume] in Cord blood by Automated count 87.3 fL 80-96 N [facility] ital Erythrocyte mean corpuscular hemoglobin [Entitic mass] by Automated count 28.8 pg 27-31 N [facility] l Erythrocyte mean corpuscular hemoglobin concentration [Mass/volume] in Cord blood 33.1 g/dL 33-37 N [facility] ital Erythrocyte distribution width [Entitic volume] by Automated count 12 % 11-15 N [facility] Platelets [#/volume] in Blood by Automated count 406 10*3/uL 130-472 N [facility] Platelet mean volume [Entitic volume] in Blood 8.9 fL 9.1-13. 1 Below low normal [facility] Neutrophils/100 leukocytes in Blood by Automated count 71.2 % 41- 77 N [facility] Neutrophils [#/volume] in Blood by Automated count 7.4 U 1.7-7.6 N [facility] Lymphocytes/100 leukocytes in Blood by Automated count 18.5 % 14- 46 N [facility] Lymphocytes [#/volume] in Blood by Automated count 1.9 U 0.6-4.6 N [facility] Monocytes/100 leukocytes in Blood by Automated count 6.0 % 4-12 N [facility] Monocytes [#/volume] in Blood by Automated count 0.6 U 0.2-1.2 N [facility] Eosinophils/100 leukocytes in Blood by Automated count 1.1 % 0-7 N [facility] Eosinophils [#/volume] in Blood by Automated count 0.1 U 0.0-0.5 N [facility] Basophils/100 leukocytes in Blood by Automated count 0.6 % 0.4-1 .3 N [facility] Basophils [#/volume] in Blood by Automated count 0.1 U 0.0-0.2 N [facility] NUCLEATED RED BLOOD CELL 0 % [facility] NUCLEATED RED BLOOD CELL# 0 U [facility] Immature granulocytes [Presence] in Blood by Automated count 0-2 Above high normal [facility] Immature granulocytes [#/volume] in Blood by Automated count 0.3 U 0-0.1 Above high normal [facility] Manual Differential panel - Blood Manual Diff Added [facility] ID Date Data Source [id number] 06/13/2020 07:04:00 AM [facility] @06/13/20 0648: MANUAL DIFF added. RFLXG = DIFF. @06/13/20 0648: MANUAL DIFF added. RFLXG = DIFF. Name Value Range Interpretation Code Description Data Evelin rce(s) Supporting Document(s) Cells counted [#] 100 [facility] Neutrophils [#/volume] in Blood by Manual count 83 % 41-77 Above high normal [facility] Lymphocytes [#/volume] in Blood by Manual count 14 % 14-46 N [facility] Monocytes [#/volume] in Blood by Manual count 2 % 4-12 B elow low normal [facility] Eosinophils [#/volume] in Blood by Manual count 1 % 0-7 N [facility] Platelets [#/volume] in Blood by Estimate APPEARS NORMAL NORMAL [facility] Morphology [Interpretation] in Blood Narrative APPEARS NORMAL NORMAL [facility] ID Date Data Source [id number] 06/12/2020 02:24:00 PM [facility] Name: JAGJIT IBARRA : 1960 Age: 60 MR#: [id number] Admit Date: 06/08/20 Provider: Unique Ford Room #: 292 Consulting Provider: Armaan Reyna MD; [facility]; Joanna Alfredo; Minh Dumas MD; [...] Admit to Inpatient, Acute [STATUS] Routine Location: [facility] Primary diagnosis: Chest pain Isolation: Droplet Status: [...] % (Auto) 68.2, Lymph % (Auto) 19.6, Citrus % (Auto) 6.8, Eos % (Auto) 1.0, [...] left shoulder, not elsewhere classified SNOMED Code(s): [id number] A P Free Text/Narrative :: 60 y/o male with PMH of 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 Ferreira from [facility] Cardiology saw the patient and recommended the following: - 4-6 weeks total of ABX - Daily blood cultures x 3 days - Repeat blood cultures the day after ABX are completed - If daily blood cultures are positive or positive after completing ABX, patient will be required to have ICD removed (he is scheduled to see radiation control specialist regarding ICD next week) - If blood cultures sterilize immediately, c omplete antibiotic course and reassess 2. Chest pain - Resolved; continue telemetry - TSH WNL, repeat troponin negative 3. Status post AICD pacemaker Will see radiation control specialist next week 4. Left shoulder pain and restriction of movement pt was requiring iv morphine during hospital stay will continue PO tylenol and Tramadol will f/u x ray and with ortho service 5. History of pulmonary embolism/DVT - Continue Eliquis 6. Status post [place] filter placement 7. Atrial fibrillation - Continue [...] will need to transfer the patient to [place] for in-patient DANIELE. Patient scheduled to see radiation control specialist at [facility] cardiology? for generator change of pacemaker on [...] MD> Christo Llamas MD 06/12/20 145 D: [facility] 06/12/20 142 T: [facility] 06/12/201423 CC: Name Value Range Interpretation Code Description Data Evelin rce(s) Supporting Document(s) ID Date Data Source [id number] 06/12/2020 12:29:00 PM EST [facility] ([facility]) Name Value Range Interpretation Code Description Data Evelin rce(s) Supporting Document(s) .Scanned Labs Laboratory test result [facility] ([facility]) ID Date Data Source [id number] 06/12/2020 10:52:00 AM EST [facility] Name: JAGJIT IBARRA : 1960 Age: 60 MR#: [id number] Admit Date: 06/08/20 Provider: Anthony Gonzalez MD Room #: 292 Consulting Provider: Armaan Reyna MD; [facility]; Joanna Alfredo; Minh Dumas MD; [...] % (Auto) 68.2, Lymph % (Auto) 19.6, Citrus % (Auto) 6.8, Eos % (Auto) 1.0, [...] rce(s) Supporting Document(s) ID Date Data Source [id number] 06/12/2020 07:44:00 AM EST [facility] @06/12/20 0735: MANUAL DIFF added. RFLXG = DIFF. @06/12/20 0735: MANUAL DIFF added. RFLXG = DIFF. Name Value Range Interpretation Code Description Data Evelin rce(s) Supporting Document(s) Urea nitrogen [Mass/volume] in Serum or Plasma 10 mg/dL 9-23 N [facility] Sodium [Moles/volume] in Serum or Plasma 138 mmol/L 132-146 N [facility] Potassium [Moles/volume] in Serum or Plasma 4.0 mmol/L 3.5-5.5 N [facility] Chloride [Moles/volume] in Serum or Plasma 102 mmol/L 99-109 N [facility] Carbon dioxide, total [Moles/volume] in Serum or Plasma 29 mmol/L 20 -31 N [facility] Anion gap in Serum or Plasma 11 mmol/L 8-16 N [facility] Glucose [Mass/volume] in Serum or Plasma 225 mg/dL 74-106 Above high normal [facility] Creatinine 0.9 mg/dL 0.5-1.1 [facility] Glomerular filtration rate/1.73 sq M.pre dicted [Volume Rate/Area] in Serum or Plasma Greater Than 60 ABOVE 60 [facility] Alanine aminotransferase [Enzymatic acti vity/volume] in Serum or Plasma by With P-5'-P 28 U/L 10-49 N [facility] ital Aspartate aminotransferase [Enzymatic ac tivity/volume] in Serum or Plasma by With P-5'-P 19 U/L 0-33 N [facility] pital Alkaline phosphatase [Enzymatic activity/volume] in Serum or Plasma 118 U/L 45-129 N [facility] Calcium [Mass/volume] in Serum or Plasma 9.2 mg/dL 8.5-10.1 [facility] Bilirubin.total [Mass/volume] in Serum or Plasma 0.6 mg/dL 0.3-1.2 [facility] Albumin [Mass/volume] in Serum or Plasma by Bromocresol purple (BCP) dye binding method 2.5 g/dL 3.2-4.8 Below low normal [facility] Protein [Mass/volume] in Serum or Plasma 7.2 g/dL 5.7-8.2 [facility] ID Date Data Source [id number] 06/12/2020 08:04:00 AM EST [facility] @06/12/20 0735: MANUAL DIFF added. RFLXG = DIFF. @06/12/20 0735: MANUAL DIFF added. RFLXG = DIFF. Name Value Range Interpretation Code Description Data Evelin rce(s) Supporting Document(s) Leukocytes [#/volume] in Blood by Automated count 9.8 10*3/uL 4.45-10 .71 N [facility] Erythrocytes [#/volume] in Blood by Automated count 4.06 10*6/uL 4.3-6.1 Below low normal [facility] Hemoglobin [Moles/volume] in Blood 12.0 g/dL 13-18 Below low no rmal [facility] Hematocrit [Volume Fraction] of Blood by Automated count 35.2 % 42-52 Below low normal [facility] Erythrocyte mean corpuscular volume [Ent itic volume] in Cord blood by Automated count 86.7 fL 80-96 N [facility] ital Erythrocyte mean corpuscular hemoglobin [Entitic mass] by Automated count 29.6 pg 27-31 [facility] Erythrocyte mean corpuscular hemoglobin concentration [Mass/volume] in Cord blood 34.1 g/dL 33-37 N [facility] ital Erythrocyte distribution width [Entitic volume] by Automated count 12 % 11-15 N [facility] Platelets [#/volume] in Blood by Automated count 357 10*3/uL 130-472 N [facility] Platelet mean volume [Entitic volume] in Blood 8.6 fL 9.1-13. 1 Below low normal [facility] Neutrophils/100 leukocytes in Blood by Automated count 68.2 % 41- 77 N [facility] Neutrophils [#/volume] in Blood by Automated count 6.7 U 1.7-7.6 N [facility] Lymphocytes/100 leukocytes in Blood by Automated count 19.6 % 14- 46 N [facility] Lymphocytes [#/volume] in Blood by Automated count 1.9 U 0.6-4.6 N [facility] Monocytes/100 leukocytes in Blood by Automated count 6.8 % 4-12 N [facility] Monocytes [#/volume] in Blood by Automated count 0.7 U 0.2-1.2 N [facility] Eosinophils/100 leukocytes in Blood by Automated count 1.0 % 0-7 N [facility] Eosinophils [#/volume] in Blood by Automated count 0.1 U 0.0-0.5 N [facility] Basophils/100 leukocytes in Blood by Automated count 0.4 % 0.4-1 .3 N [facility] Basophils [#/volume] in Blood by Automated count 0.0 U 0.0-0.2 N [facility] NUCLEATED RED BLOOD CELL 0 % [facility] NUCLEATED RED BLOOD CELL# 0 U [facility] Immature granulocytes [Presence] in Blood by Automated count 0-2 Above high normal [facility] Immature granulocytes [#/volume] in Blood by Automated count 0.4 U 0-0.1 Above high normal [facility] Manual Differential panel - Blood Manual Diff Added [facility] ID Date Data Source [id number] 06/12/2020 08:04:00 AM EST [facility] @06/12/20 0735: MANUAL DIFF added. RFLXG = DIFF. @06/12/20 0735: MANUAL DIFF added. RFLXG = DIFF. Name Value Range Interpretation Code Description Data Evelin rce(s) Supporting Document(s) Cells counted [#] 100 [facility] Neutrophils [#/volume] in Blood by Manual count 75 % 41-77 N [facility] Lymphocytes [#/volume] in Blood by Manual count 16 % 14-46 N [facility] Monocytes [#/volume] in Blood by Manual count 7 % 4-12 N [facility] Eosinophils [#/volume] in Blood by Manual count 2 % 0-7 N [facility] Platelets [#/volume] in Blood by Estimate APPEARS NORMAL NORMAL [facility] Morphology [Interpretation] in Blood Narrative APPEARS NORMAL NORMAL [facility] ID Date Data Source [id number] 06/11/2020 05:25:00 PM [facility] [address] [place] [address] [phone] NAME SEX PT STATUS ACCOUNT NUMBER JAGJIT IBARRA ADM IN [id number] ORDERING PHYSICIAN LOCATION MEDICAL RECORD NO. Christo Llamas MD [id number] ATTENDING PHYSICIAN DATE OF DATE OF EXAM/TIME [...] Trans Dt/Tm: Trans by: DT Prt Dt/Tm: [id number]: Total DLP = 0.00 mGy-cm Fluoroscopy Time (in secs): Name Value Range Interpretation Code Description Data Evelin rce(s) Supporting Document(s) ID Date Data Source [id number] 06/11/2020 03:41:00 PM [facility] Name: JAGJIT IBARRA : 1960 Age: 60 MR#: [id number] Admit Date: 06/08/20 Provider: Christo Llamas MD Room #: 292 Consulting Provider: Armaan Reyna MD; [facility]; Joanna Alfredo; Minh Dumas MD; Anthony Gonzalez MD; Kd De La Rosa PA-C; Whit Pathak; Sydni Keita MD; Eddie Wright MD; Raul Magallon MD Dictation Date: 0 06/11/20 Progress Note Subjective-ROS Date of service Date of service:: 06/11/20 Review of Systems Attestation/Length Of Stay: 06/08/20 13:50 Admit to Inpatient, Acute [STATUS] Routine Location: [facility] Primary diagnosis: Chest pain Isolation: Droplet Status: [...] (Auto) 65.4, Lymph % (A uto) 21.6, Citrus % (Auto) 6.5, Eos % (Auto) 1.6, [...] for chest pain. 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 Ferreira from [facility] Cardio logy saw the patient and recommended the following: - 4-6 weeks total of ABX - Daily blood cultures x 3 days - Repeat blood cultures the day after ABX are completed - If daily blood cultures are positive or positive after completing ABX, patient will be required to have ICD removed (he is scheduled to see radiation control specialist regarding ICD next week) - If blood cultures sterilize immediately, complete antibiotic course and reassess 2. Chest pain Resolved continue telemetry and monitoring TSH WNL, repeat troponin negative 3. Status post AICD pacemaker Will see radiation control specialist next week 4. Left shoulder pain and restriction of movement pt was requiring iv morphine during hospital stay will continue PO tylenol and Tramadol will f/u x ray and with ortho service 5. History of pulmonary embolism/DVT - Continue Eliquis 6. Status post [place] filter placement 7. Atrial fibrillation - Continue [...] will need to transfer the patient to [place] for in-patient DANIELE as the outcome of this dictates the course of treatment. Patient scheduled to see radiation control specialist at [facility] cardiology? for generator change of pacemaker on [...] rce(s) Supporting Document(s) ID Date Data Source [id number] 06/11/2020 08:37:00 AM EST [facility] @06/11/20 0830: MANUAL DIFF added. RFLXG = DIFF. @06/11/20 0830: MANUAL DIFF added. RFLXG = DIFF. Name Value Range Interpretation Code Description Data Veelin rce(s) Supporting Document(s) Urea nitrogen [Mass/volume] in Serum or Plasma 11 mg/dL 9-23 N [facility] Sodium [Moles/volume] in Serum or Plasma 137 mmol/L 132-146 [facility] Potassium [Moles/volume] in Serum or Plasma 4.2 mmol/L 3.5-5.5 N [facility] Chloride [Moles/volume] in Serum or Plasma 102 mmol/L 99-109 [facility] Carbon dioxide, total [Moles/volume] in Serum or Plasma 28 mmol/L 20 -31 [facility] Anion gap in Serum or Plasma 11 mmol/L 8-16 [facility] Glucose [Mass/volume] in Serum or Plasma 236 mg/dL 74-106 Above high normal [facility] Creatinine 0.9 mg/dL 0.5-1.1 [facility] Glomerular filtration rate/1.73 sq M.pre dicted [Volume Rate/Area] in Serum or Plasma Greater Than 60 ABOVE 60 [facility] Alanine aminotransferase [Enzymatic acti vity/volume] in Serum or Plasma by With P-5'-P 33 U/L 10-49 [facility] ital Aspartate aminotransferase [Enzymatic ac tivity/volume] in Serum or Plasma by With P-5'-P 18 U/L 0-33 [facility] pital Alkaline phosphatase [Enzymatic activity/volume] in Serum or Plasma 107 U/L 45-129 [facility] Calcium [Mass/volume] in Serum or Plasma 9.0 mg/dL 8.5-10.1 [facility] Bilirubin.total [Mass/volume] in Serum or Plasma 0.6 mg/dL 0.3-1.2 N [facility] Albumin [Mass/volume] in Serum or Plasma by Bromocresol purple (BCP) dye binding method 2.5 g/dL 3.2-4.8 Below low normal [facility] Protein [Mass/volume] in Serum or Plasma 6.5 g/dL 5.7-8.2 N [facility] ID Date Data Source [id number] 06/11/2020 09:40:00 AM EST [facility] @06/11/20 0830: MANUAL DIFF added. RFLXG = DIFF. @06/11/20 0830: MANUAL DIFF added. RFLXG = DIFF. Name Value Range Interpretation Code Description Data Evelin rce(s) Supporting Document(s) Leukocytes [#/volume] in Blood by Automated count 9.5 10*3/uL 4.45-10 .71 N [facility] Erythrocytes [#/volume] in Blood by Automated count 4.16 10*6/uL 4.3-6.1 Below low normal [facility] Hemoglobin [Moles/volume] in Blood 11.9 g/dL 13-18 Below low no rmal [facility] Hematocrit [Volume Fraction] of Blood by Automated count 36.3 % 42-52 Below low normal [facility] Erythrocyte mean corpuscular volume [Ent itic volume] in Cord blood by Automated count 87.3 fL 80-96 N [facility] Erythrocyte mean corpuscular hemoglobin [Entitic mass] by Automated count 28.6 pg 27-31 N [facility] Erythrocyte mean corpuscular hemoglobin concentration [Mass/volume] in Cord blood 32.8 g/dL 33-37 Below low normal [facility] Erythrocyte distribution width [Entitic volume] by Automated count 12 % 11-15 N [facility] Platelets [#/volume] in Blood by Automated count 370 10*3/uL 130-472 N [facility] Platelet mean volume [Entitic volume] in Blood 9.1 fL 9.1-13.1 N [facility] Neutrophils/100 leukocytes in Blood by Automated count 65.4 % 41- 77 N [facility] Neutrophils [#/volume] in Blood by Automated count 6.2 U 1.7-7.6 N [facility] Lymphocytes/100 leukocytes in Blood by Automated count 21.6 % 14- 46 N [facility] Lymphocytes [#/volume] in Blood by Automated count 2.1 U 0.6-4.6 N [facility] Monocytes/100 leukocytes in Blood by Automated count 6.5 % 4-12 N [facility] Monocytes [#/volume] in Blood by Automated count 0.6 U 0.2-1.2 N [facility] Eosinophils/100 leukocytes in Blood by Automated count 1.6 % 0-7 N [facility] Eosinophils [#/volume] in Blood by Automated count 0.2 U 0.0-0.5 N [facility] Basophils/100 leukocytes in Blood by Automated count 0.7 % 0.4-1 .3 N [facility] Basophils [#/volume] in Blood by Automated count 0.1 U 0.0-0.2 N [facility] NUCLEATED RED BLOOD CELL 0 % [facility] NUCLEATED RED BLOOD CELL# 0 U [facility] Immature granulocytes [Presence] in Blood by Automated count 0-2 Above high normal [facility] Immature granulocytes [#/volume] in Blood by Automated count 0.4 U 0-0.1 Above high normal [facility] Manual Differential panel - Blood Manual Diff Added [facility] ID Date Data Source [id number] 06/11/2020 09:40:00 AM EST [facility] @06/11/20 0830: MANUAL DIFF added. RFLXG = DIFF. @06/11/20 0830: MANUAL DIFF added. RFLXG = DIFF. Name Value Range Interpretation Code Description Data Evelin rce(s) Supporting Document(s) Cells counted [#] 100 [facility] Neutrophils [#/volume] in Blood by Manual count 57 % 41-77 N [facility] Band form neutrophils [#/volume] in Blood by Manual count 3 % 0-5 N [facility] Lymphocytes [#/volume] in Blood by Manual count 23 % 14-46 N [facility] Monocytes [#/volume] in Blood by Manual count 8 % 4-12 N [facility] Eosinophils [#/volume] in Blood by Manual count 2 % 0-7 N [facility] Mononuclear cells atypical [#/volume] in Blood by Manual count 7 0-5 Above high normal [facility] Platelets [#/volume] in Blood by Estimate APPEARS NORMAL NORMAL [facility] Morphology [Interpretation] in Blood Narrative APPEARS NORMAL NORMAL [facility] ID Date Data Source [id number] 06/10/2020 09:33:00 AM EST [facility] Name: JAGJIT IBARRA : 1960 Age: 60 MR#: [id number] Admit Date: 06/08/20 Provider: Christo Llamas MD Room #: 292 Consulting Provider: [facility]; Minh Dumas MD ictation Date: 06/10/20 Progress Note Subjective-ROS Date of service Date of service:: 06/10/20 Review of Systems Attestation/Length Of Stay: 06/08/20 13:50 Admit to Inpatient, Acute [STATUS] Routine Location: [facility] Primary diagnosis: Chest pain Isolation: Droplet Status: [...] for chest pain. 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 Ferreira from [facility] Cardiology saw the patient and recommended the following: - 4-6 weeks total of ABX - Daily blood cultures x 3 days - Repeat blood cultures the day after ABX are completed - If daily blood cultures are positive or positive after completing ABX, patient will be required to have ICD removed (he is scheduled to see radiation control specialist regarding ICD next week) - If blood cultures sterilize immediately, complete antibiotic course and reassess 2. Chest pain Resolved continue telemetry and monitoring TSH WNL, repeat troponin negative 3. Status post AICD pacemaker - Will see radiation control specialist next week 4. Coronary artery disease - Continue aspirin 5. History of pulmonary embolism/DVT - Continue Eliquis 6. Status post [place] filter placement 7. Atrial fibrillation - Continue [...] will need to transfer the patient to [place] for in-patient DANIELE as the outcome of this dictates the course of treatment. Patient scheduled to see radiation control specialist at [facility] cardiology? for generator change of pacemaker on [...] rce(s) Supporting Document(s) ID Date Data Source [id number] 06/15/2020 07:45:00 AM [facility] Name Value Range Interpretation Code Description Data Evelin rce(s) Supporting Document(s) Bacteria identified in Blood by Culture [facility] NO GROWTH AFTER 5 DAYS ID Date Data Source [id number] 06/10/2020 08:43:00 AM [facility] @06/10/20 0811: MANUAL DIFF added. RFLXG = DIFF. @06/10/20 0811: MANUAL DIFF added. RFLXG = DIFF. Name Value Range Interpretation Code Description Data Evelin rce(s) Supporting Document(s) Urea nitrogen [Mass/volume] in Serum or Plasma 11 mg/dL 9-23 N [facility] Sodium [Moles/volume] in Serum or Plasma 136 mmol/L 132-146 N [facility] Potassium [Moles/volume] in Serum or Plasma 4.1 mmol/L 3.5-5.5 [facility] Chloride [Moles/volume] in Serum or Plasma 102 mmol/L 99-109 [facility] Carbon dioxide, total [Moles/volume] in Serum or Plasma 27 mmol/L 20 -31 N [facility] Anion gap in Serum or Plasma 11 mmol/L 8-16 N [facility] Glucose [Mass/volume] in Serum or Plasma 232 mg/dL 74-106 Above high normal [facility] Creatinine 1.0 mg/dL 0.5-1.1 [facility] Glomerular filtration rate/1.73 sq M.pre dicted [Volume Rate/Area] in Serum or Plasma Greater Than 60 ABOVE 60 [facility] Alanine aminotransferase [Enzymatic acti vity/volume] in Serum or Plasma by With P-5'-P 42 U/L 10-49 N [facility] ital Aspartate aminotransferase [Enzymatic ac tivity/volume] in Serum or Plasma by With P-5'-P 21 U/L 0-33 N [facility] pital Alkaline phosphatase [Enzymatic activity/volume] in Serum or Plasma 114 U/L 45-129 N [facility] Calcium [Mass/volume] in Serum or Plasma 8.7 mg/dL 8.5-10.1 N [facility] Bilirubin.total [Mass/volume] in Serum or Plasma 0.6 mg/dL 0.3-1.2 [facility] Albumin [Mass/volume] in Serum or Plasma by Bromocresol purple (BCP) dye binding method 2.6 g/dL 3.2-4.8 Below low normal [facility] Protein [Mass/volume] in Serum or Plasma 6.5 g/dL 5.7-8.2 [facility] ID Date Data Source [id number] 06/10/2020 09:35:00 AM EST [facility] @06/10/20 0811: MANUAL DIFF added. RFLXG = DIFF. @06/10/20 0811: MANUAL DIFF added. RFLXG = DIFF. Name Value Range Interpretation Code Description Data Evelin rce(s) Supporting Document(s) Leukocytes [#/volume] in Blood by Automated count 9.2 10*3/uL 4.45-10 .71 [facility] Erythrocytes [#/volume] in Blood by Automated count 4.21 10*6/uL 4.3-6.1 Below low normal [facility] Hemoglobin [Moles/volume] in Blood 12.2 g/dL 13-18 Below low no rmal [facility] Hematocrit [Volume Fraction] of Blood by Automated count 37.0 % 42-52 Below low normal [facility] Erythrocyte mean corpuscular volume [Ent itic volume] in Cord blood by Automated count 87.9 fL 80-96 N [facility] ital Erythrocyte mean corpuscular hemoglobin [Entitic mass] by Automated count 29.0 pg 27-31 N [facility] l Erythrocyte mean corpuscular hemoglobin concentration [Mass/volume] in Cord blood 33.0 g/dL 33-37 N [facility] ital Erythrocyte distribution width [Entitic volume] by Automated count 12 % 11-15 N [facility] Platelets [#/volume] in Blood by Automated count 347 10*3/uL 130-472 N [facility] Platelet mean volume [Entitic volume] in Blood 9.2 fL 9.1-13.1 N [facility] Neutrophils/100 leukocytes in Blood by Automated count 66.8 % 41- 77 N [facility] Neutrophils [#/volume] in Blood by Automated count 6.1 U 1.7-7.6 N [facility] Lymphocytes/100 leukocytes in Blood by Automated count 18.4 % 14- 46 N [facility] Lymphocytes [#/volume] in Blood by Automated count 1.7 U 0.6-4.6 N [facility] Monocytes/100 leukocytes in Blood by Automated count 8.4 % 4-12 N [facility] Monocytes [#/volume] in Blood by Automated count 0.8 U 0.2-1.2 N [facility] Eosinophils/100 leukocytes in Blood by Automated count 1.8 % 0-7 N [facility] Eosinophils [#/volume] in Blood by Automated count 0.2 U 0.0-0.5 N [facility] Basophils/100 leukocytes in Blood by Automated count 0.7 % 0.4-1 .3 N [facility] Basophils [#/volume] in Blood by Automated count 0.1 U 0.0-0.2 [facility] NUCLEATED RED BLOOD CELL 0 % [facility] NUCLEATED RED BLOOD CELL# 0 U [facility] Immature granulocytes [Presence] in Blood by Automated count 0-2 Above high normal [facility] Immature granulocytes [#/volume] in Blood by Automated count 0.4 U 0-0.1 Above high normal [facility] Manual Differential panel - Blood Manual Diff Added [facility] ID Date Data Source [id number] 06/10/2020 09:35:00 AM EST [facility] @06/10/20 0811: MANUAL DIFF added. RFLXG = DIFF. @06/10/20 0811: MANUAL DIFF added. RFLXG = DIFF. Name Value Range Interpretation Code Description Data Evelin rce(s) Supporting Document(s) Cells counted [#] 100 [facility] Neutrophils [#/volume] in Blood by Manual count 62 % 41-77 N [facility] Band form neutrophils [#/volume] in Blood by Manual count 3 % 0-5 N [facility] Lymphocytes [#/volume] in Blood by Manual count 25 % 14-46 N [facility] Monocytes [#/volume] in Blood by Manual count 6 % 4-12 N [facility] Metamyelocytes [#/volume] in Blood by Manual count 1 % 0-0 Above high normal [facility] Mononuclear cells atypical [#/volume] in Blood by Manual count 3 0-5 N [facility] Platelets [#/volume] in Blood by Estimate APPEARS NORMAL NORMAL [facility] Morphology [Interpretation] in Blood Narrative APPEARS NORMAL NORMAL [facility] ID Date Data Source [id number] 06/09/2020 03:07:00 PM EST [facility] Name: JAGJIT IBARRA : 1960 Age: 60 MR#: [id number] Admit Date: 06/08/20 Provider: Unique Ford Room #: 292 Consulting Provider: [facility] Cardiology; Minh Dumas MD ictation Date: 06/09/20 [...] Admit to Inpatient, Acute [STATUS] Routine Location: [facility] Primary diagnosis: Chest pain Isolation: Droplet Status: [...] % (Auto) 69.6, Lymph % (Auto) 17.9, Citrus % (Auto) 8.6, Eos % (Auto) 1.6, [...] for chest pain. 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 Ferreira from [facility] Cardiology saw the patient yesterday morning and recommended the following: - 4-6 weeks total of ABX - Daily blood cultures x 3 days - Repeat blood cultures the day after ABX are completed - If daily blood cultures are positive or positive after completing ABX, patient will be required to have ICD removed (he is scheduled to see radiation control specialist regarding ICD next week) - If blood cultures sterilize immediately, complete antibiotic course and reassess 3. Status post AICD pacemaker - Will see radiation control specialist next week 4. Coronary artery disease - Continue aspirin 5. History of pulmonary embolism/DVT - Continue Eliquis 6. Status post Anmoore filter placement 7. Atrial fibrillation - Continue [...] will need to transfer the patient to [place] for in-patient DANIELE as the outcome of this dictates the course of treatment. Patient scheduled to see radiation control specialist at [facility] cardiology? for generator change of pacemaker on [...] MD> Christo Llamas MD 06/09/20 172 D: [facility] 06/09/20 1507 T: [facility] 06/09/20 1507 CC: Name Value Range Interpretation Code Description Data Evelin rce(s) Supporting Document(s) ID Date Data Source [id number] 06/09/2020 09:48:00 AM EST MEDENT ([facility] C ardiology) Name Value Range Interpretation Code Description Data Evelin rce(s) Supporting Document(s) .Scanned Labs Laboratory test result MED ENT ([facility] Cardiology) ID Date Data Source [id number] 06/14/2020 06:05:00 AM [facility] Name Value Range Interpretation Code Description Data Evelin rce(s) Supporting Document(s) Bacteria identified in Blood by Culture [facility] NO GROWTH AFTER 5 DAYS ID Date Data Source [id number] 06/09/2020 06:16:00 AM [facility] Name Value Range Interpretation Code Description Data Evelin rce(s) Supporting Document(s) Leukocytes [#/volume] in Blood by Automated count 10.7 10*3/uL 4.45-1 0.71 N [facility] Erythrocytes [#/volume] in Blood by Automated count 3.94 10*6/uL 4.3-6.1 Below low normal [facility] Hemoglobin [Moles/volume] in Blood 11.5 g/dL 13-18 Below low no rmal [facility] Hematocrit [Volume Fraction] of Blood by Automated count 33.8 % 42-52 Below low normal [facility] Erythrocyte mean corpuscular volume [Ent itic volume] in Cord blood by Automated count 85.8 fL 80-96 No range defined, or normal ranges don't apply [facility] Repeated by: Chacha Castillo 06/09/20 061 5.Result Confirmation: 85.8 fl Erythrocyte mean corpuscular hemoglobin [Entitic mass] by Automated count 29.2 pg 27-31 N [facility] l Erythrocyte mean corpuscular hemoglobin concentration [Mass/volume] in Cord blood 34.0 g/dL 33-37 N [facility] Erythrocyte distribution width [Entitic volume] by Automated count 12 % 11-15 N [facility] Platelets [#/volume] in Blood by Automated count 275 10*3/uL 130-472 No range defined, or normal ranges don't apply [facility] Repeated by: Chacha Castillo 06/09/20 061 5.Result Confirmation: 264 10e3/ul Platelet mean volume [Entitic volume] in Blood 9.4 fL 9.1-13.1 N [facility] Neutrophils/100 leukocytes in Blood by Automated count 69.6 % 41- 77 N [facility] Neutrophils [#/volume] in Blood by Automated count 7.4 U 1.7-7.6 N [facility] Lymphocytes/100 leukocytes in Blood by Automated count 17.9 % 14- 46 N [facility] Lymphocytes [#/volume] in Blood by Automated count 1.9 U 0.6-4.6 N [facility] Monocytes/100 leukocytes in Blood by Automated count 8.6 % 4-12 N [facility] Monocytes [#/volume] in Blood by Automated count 0.9 U 0.2-1.2 N [facility] Eosinophils/100 leukocytes in Blood by Automated count 1.6 % 0-7 N [facility] Eosinophils [#/volume] in Blood by Automated count 0.2 U 0.0-0.5 N [facility] Basophils/100 leukocytes in Blood by Automated count 0.4 % 0.4-1 .3 N [facility] Basophils [#/volume] in Blood by Automated count 0.0 U 0.0-0.2 N [facility] NUCLEATED RED BLOOD CELL 0 % [facility] NUCLEATED RED BLOOD CELL# 0 U [facility] Immature granulocytes [Presence] in Blood by Automated count 0-2 N [facility] Immature granulocytes [#/volume] in Blood by Automated count 0.2 U 0-0.1 Above high normal [facility] Manual Differential panel - Blood NO [facility] ID Date Data Source [id number] 06/09/2020 06:27:00 AM EST [facility] Name Value Range Interpretation Code Description Data Evelin rce(s) Supporting Document(s) Urea nitrogen [Mass/volume] in Serum or Plasma 9 mg/dL 9-23 [facility] Sodium [Moles/volume] in Serum or Plasma 136 mmol/L 132-146 [facility] Potassium [Moles/volume] in Serum or Plasma 3.4 mmol/L 3.5-5.5 Below low normal [facility] Chloride [Moles/volume] in Serum or Plasma 103 mmol/L 99-109 [facility] Carbon dioxide, total [Moles/volume] in Serum or Plasma 25 mmol/L 20 -31 [facility] Anion gap in Serum or Plasma 11 mmol/L 8-16 [facility] Glucose [Mass/volume] in Serum or Plasma 247 mg/dL 74-106 Above high normal [facility] Creatinine 1.0 mg/dL 0.5-1.1 [facility] Glomerular filtration rate/1.73 sq M.pre dicted [Volume Rate/Area] in Serum or Plasma Greater Than 60 ABOVE 60 [facility] Alanine aminotransferase [Enzymatic acti vity/volume] in Serum or Plasma by With P-5'-P 46 U/L 10-49 N [facility] ital Aspartate aminotransferase [Enzymatic ac tivity/volume] in Serum or Plasma by With P-5'-P 22 U/L 0-33 [facility] pital Alkaline phosphatase [Enzymatic activity/volume] in Serum or Plasma 109 U/L 45-129 [facility] Calcium [Mass/volume] in Serum or Plasma 8.7 mg/dL 8.5-10.1 [facility] Bilirubin.total [Mass/volume] in Serum or Plasma 0.7 mg/dL 0.3-1.2 [facility] Albumin [Mass/volume] in Serum or Plasma by Bromocresol purple (BCP) dye binding method 2.5 g/dL 3.2-4.8 Below low normal [facility] Protein [Mass/volume] in Serum or Plasma 6.6 g/dL 5.7-8.2 [facility] ID Date Data Source [id number] 06/09/2020 06:20:00 AM [facility] Name Value Range Interpretation Code Description Data Evelin rce(s) Supporting Document(s) Magnesium [Mass/volume] in Serum or Plasma 1.6 mg/dL 1.3-2.7 [facility] ID Date Data Source [id number] 06/08/2020 10:36:00 PM [facility] Name: JAGJIT IBARRA : 1960 Age: 60 MR#: [id number] Admit Date: 06/08/20 Provider: Minh Dumas MD [...] % (Auto) 69.7, Lymph % (Auto) 15.6, Citrus % (Auto) 11.0, Eos % (Auto) 1.7, [...] medical history: Diabetes, DVT, IVC filter, hypertension, CA, CVA Past surgical history: Knee surgery, spinal fusion with hardware, pacemaker Allergies: No known antibiotic allergies Family history: Both mom and dad had cancer Social history: He enjoys playing football, he is engaged, he has 2 children and 10 grandchildren, he was born in [place], denies drug use, has a 6 pack of beer on Sundays, quit smoking 11 days ago,denies ever leaving the [place] in his lifetime, has a pipe cat at home, never been incarcerated, never lived in a homeless intermediate, lives alone, 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 Physical exam [...] likely related to fatty infiltration as discussed [id number] contrast-enhanced CT or sonography suggested for further [...] rce(s) Supporting Document(s) ID Date Data Source [id number] 06/08/2020 04:33:00 PM [facility] Pharmacy Department JAGJIT IBARRA : 1960 Date: 06/08/20 [id number] Pharm- Kinetic Note Vancomycin - General Information Reason for note:: Follow-Up - Concurrently Taking Concurrently Taking:: Ceftriaxone - 2g iv q12h - Medications/Allergies Current Medications: Current Medications Acetaminophen (Acetaminophen 325 Mg Tab) 650 mg PO Q6H PRN PRN Reason: FEVER Last Admin: 06/08/20 04:32 Dose: 650 mg Documented by: Amiodarone HCl (Amiodarone 200 Mg Tablet) 200 mg PO BID [facility] Last Admin: 06/08/20 08:26 Dose: 200 mg Documented by: Apixaban (Apixaban 5 Mg Tablet) 5 mg PO BID [facility] Last Admin: 06/08/20 08:27 Dose: 5 mg Documented by: Aspirin (Aspirin Chew 81 Mg) 81 mg PO DAILY [facility] Last Admin: 06/08/20 08:27 Dose: 81 mg Documented by: Atorvastatin Calcium (Atorvastatin Calcium 40 Mg Tablet) 80 mg PO HS [facility] Last Admin: 06/07/20 21:41 Dose: 80 mg Documented by: Carvedilol (Carvedilol 6.25 Mg Tablet) 25 mg PO BIDWM [facility] Last Admin: 06/08/20 08:25 Dose: 25 mg Documented by: Cholecalciferol (Cholecalciferol (Vitamin D3) 1,000 Units Tablet) 1,000 units PO DAILY [facility] Last Admin: 06/08/20 08:27 Dose: 1,000 units Documented by: Cyanocobalamin (Cyanocobalamin 1,000 Mcg Tablet) 500 mcg PO DAILY [facility] Last Admin: 06/08/20 08:28 Dose: 500 mcg Documented by: Duloxetine HCl (Duloxetine Hcl 30 Mg Capsule.Dr) 60 mg PO DAILY [facility] Last Admin: 06/08/20 08:29 Dose: 60 mg Documented by: Fish Oil ([place]- 3/Dha/Epa/Fish Oil 1,000 Mg Capsule) 1,000 mg PO DAILY [facility] Last Admin: 06/08/20 08:30 Dose: 1,000 mg Documented by: Folic Acid (Folic Acid 1 Mg Tablet) 1 mg PO DAILY [facility] Last Admin: 06/08/20 08:29 Dose: 1 mg Documented by: Gabapentin (Gabapentin 300 Mg Capsule) 600 mg PO TID [facility] Last Admin: 06/08/20 13:56 Dose: 600 mg Documented by: Sodium Chloride (Ns 0.9%) 1,000 mls @ 75 mls/hr IV .[id number] [facility] Last Admin: 06/08/20 14:50 Dose: 75 mls/hr Documented by: Vancomycin HCl (Vancomycin/Water For Inj (Peg)) 1.25 gm in 250 mls @ 166.667 mls/hr IV Q12H [facility] Last Admin: 06/08/20 16:19 Dose: 166.7 mls/hr Documented by: Ceftriaxone Sodium/Dextrose (Rocephin 2gm (Premix) Piggyback) 2 gm in 50 mls @ 100 mls/hr IV DAILY [facility] Last Infusion: 06/08/20 10:35 Dose: Infused Documented by: Insulin Human Lispro (Insulin Human Lispro (100 Units/Ml) 3 Ml Vial) 0 units SQ AC HS/SLIDING SCALESCH Last Admin: 06/08/20 12:40 Dose: 6 units Documented by: Metformin HCl (Metformin Hcl 500 Mg Tablet) 1,000 mg PO BIDWM [facility] Morphine Sulfate (Morphine Sulfate 4 Mg/Ml Sdv) 4 mg IVP Q4H PRN PRN Reason: PAIN, SEVERE (SCORE 7-10/10) Nitroglycerin (Nitroglycerin 0.4 Mg Subl) 0.4 mg SL Q5M PRN PRN Reason: CHEST PAIN Pantoprazole Sodium (Pantoprazole Sodium 40 Mg Sdv) 40 mg IVP DAILY [facility] Last Admin: 06/08/20 08:31 Dose: 40 mg Documented by: Pharmacy Consult (Vancomycin Per Pha 1 Consult Ea) 1 consult IV . PRN PRN Reason: CONSULT Tamsulosin HCl (Tamsulosin Hcl 0.4 Mg Capsule) 0.4 mg PO DAILY [facility] Last Admin: 06/08/20 08:30 Dose: 0.4 mg Documented by: Trazodone HCl (Trazodone Hcl 50 Mg Tablet) 100 mg PO HS [facility] Last Admin: 06/07/20 21:41 Dose: 100 [...] rce(s) Supporting Document(s) ID Date Data Source [id number] 06/08/2020 03:27:00 PM [facility] Special Instructions: 1 HOUR PRIOR TO 16 00 DOSE Name Value Range Interpretation Code Description Data Evelin rce(s) Supporting Document(s) Vancomycin [Mass/volume] in Serum or Plasma --trough 10.5 ug/mL 10- N [facility] ID Date Data Source [id number] 06/08/2020 01:51:00 PM EST [facility] Name: JAGJIT IBARRA : 1960 Age: 60 MR#: [id number] Admit Date: 06/08/20 Provider: Unique Ford Room #: 292 Consulting Provider: [facility] Cardiology; Minh Dumas MD ictation Date: 06/08/20 [...] % (Auto) 69.7, Lymph % (Auto) 15.6, Citrus % (Auto) 11.0, Eos % (Auto) 1.7, [...] switch to Cefazolin) - Dr. Ferreira from [facility] Cardiology saw the patient this morning and recommended the following: - 4-6 weeks total of ABX - Daily blood cultures x 3 days - Repeat blood cultures the day after ABX are completed - If daily blood cultures are positive or positive after completing ABX, patient will be required to have ICD removed (he is scheduled to see radiation control specialist regarding ICD next week) - If blood cultures sterilize immediately, complete antibiotic course and reassess 3. Status post AICD pacemaker - Will see radiation control specialist next week 4. Coronary artery disease - [...] determined endocarditis status. Awaiting return call from [facility] Cardiology. Will call again in the morning [...] rce(s) Supporting Document(s) ID Date Data Source [id number] 06/08/2020 10:36:00 AM [facility] CONSULTATION REPORT [facility]: [facility] 1960 [id number] AGE: 60 MR#: [id number] ADMITTING DATE: 06/08/[address]: Chilo Pineda MD DISCHARGE DATE: ATTENDING DR: Chilo Pineda MD ROOM#: 292 DATE CONSULT DICTATED 06/08/2020 CARDIOLOGY CONSULTATION June 08, 2020 HISTORY OF PRESENT ILLNESS The patient is a 60-year-old gentleman who presented to [facility] with some constant sharp chest discomfort. He had some left arm discomfort and diaphoresis. The patient has a history of known CAD (coronary artery disease) having had prior coronary stenting. He has a history of pulmonary embolus, DVT (deep venous thrombosis), Anmoore filter placement, ICD implantation, as well as diabetes. The patient had been seen on the day of admission by cardiology andhad a reported syncopal episode from June 05 evaluated. There was no arrhythmia apparently noted although the generator was felt to be malfunctioning and he is being considered for generator change once he is elevated by the radiation control specialist. The patient has had heavy alcohol use [...] had deep venous thrombosis and has a Anmoore filter in place. He has hypertension, spinal [...] ICD, this could be removed by the radiation control specialist when they see him next week, or [...] rce(s) Supporting Document(s) ID Date Data Source [id number] 06/08/2020 11:56:00 AM EST MEDENT ([facility] C ardiology) Name Value Range Interpretation Code Description Data Evelin rce(s) Supporting Document(s) .Scanned Labs Laboratory test result MED ENT ([facility]) ID Date Data Source [id number] 06/08/2020 11:43:00 AM [facility] Therapy Department JAGJIT IBARRA OB: 1960 [id number] Attending: Chilo Pineda MD OT Inpatient Evaluation [...] rce(s) Supporting Document(s) ID Date Data Source [id number] 06/13/2020 11:45:00 AM [facility] Name Value Range Interpretation Code Description Data Evelin rce(s) Supporting Document(s) Bacteria identified in Blood by Culture [facility] NO GROWTH AFTER 5 DAYS ID Date Data Source [id number] 06/08/2020 12:12:00 PM [facility] Special Instructions: Lab may order repe at test if initial test elevatedPhysician If elevated, reflex second test in 4-6 hrs Name Value Range Interpretation Code Description Data Evelin rce(s) Supporting Document(s) Lactic w Rfx (if elevated) 1.3 mmol/L 0.5-2.[address] [facility] ID Date Data Source [id number] 06/08/2020 09:34:00 AM [facility] Therapy Department JAGJIT IBARRA : 1960 Date: 06/08/20 [id number] Attending: Chilo Pineda MD Physical Therapy Inpatient [...] pertinent to PT concerns:: DVT, DM, HTN, CA, pacemaker, stroke Prior Level of Function:: Patient [...] with no needs Therapist Cheryl Pierson 06/08/20 0978 I certify this plan of care Chilo Carreon MD 06/08/20 1301 Date Time LAST EDIT: Name Value Range Interpretation Code Description Data Evelin rce(s) Supporting Document(s) ID Date Data Source [id number] 06/08/2020 07:28:00 AM [facility] Name Value Range Interpretation Code Description Data Evelin rce(s) Supporting Document(s) Hemoglobin A1c [Mass/volume] in Blood 9.9 % 3.8-5.6 Above hig h normal [facility] The following ranges may be u sed for interpretation of results: HGBA1C degree of glucose control: Greater than 8%: Action Suggested * Less than 7%: Goal of Diabetic Therapy Less than 5.6%: NormalFactors such as duration of diabetes, adherence to therapyand the age of the patient should also be considered inassessing the degree of blood glucose control.* High risk of developing half-way complications such asretinopathy, nephropathy, neuropathy, cardiopathy, etc. Some danger of hypoglycemic reaction in Type I diabetics.Some glucose intolerant individuals and "Sub Clinical"diabetics may demonstrate HGBA1C levels in this area. Glucose mean value [Moles/volume] in Blood Estimated f rom glycated hemoglobin 237 mg/dL [facility] An A1C of 7% - the goal of diabetic ther apy - is equivalentto an EAG of 154 mg/dl. ID Date Data Source [id number] 06/08/2020 06:59:00 AM [facility] Name Value Range Interpretation Code Description Data [facility] rce(s) Supporting Document(s) Leukocytes [#/volume] in Blood by Automated count 8.0 10*3/uL 4.45-10 .71 N [facility] Erythrocytes [#/volume] in Blood by Automated count 4.11 10*6/uL 4.3-6.1 Below low normal [facility] Hemoglobin [Moles/volume] in Blood 11.9 g/dL 13-18 Below low no rmal [facility] Hematocrit [Volume Fraction] of Blood by Automated count 38.0 % 42-52 Below low normal [facility] Erythrocyte mean corpuscular volume [Ent itic volume] in Cord blood by Automated count 92.5 fL 80-96 N [facility] Erythrocyte mean corpuscular hemoglobin [Entitic mass] by Automated count 29.0 pg 27-31 N [facility] Erythrocyte mean corpuscular hemoglobin concentration [Mass/volume] in Cord blood 31.3 g/dL 33-37 Below low normal [facility] Erythrocyte distribution width [Entitic volume] by Automated count 13 % 11-15 N [facility] Platelets [#/volume] in Blood by Automated count 173 10*3/uL 130-472 N [facility] Platelet mean volume [Entitic volume] in Blood 10.5 fL 9.1-13.1 N [facility] Neutrophils/100 leukocytes in Blood by Automated count 69.7 % 41- 77 N [facility] Neutrophils [#/volume] in Blood by Automated count 5.6 U 1.7-7.6 N [facility] Lymphocytes/100 leukocytes in Blood by Automated count 15.6 % 14- 46 N [facility] Lymphocytes [#/volume] in Blood by Automated count 1.3 U 0.6-4.6 N [facility] Monocytes/100 leukocytes in Blood by Automated count 11.0 % 4-12 N [facility] Monocytes [#/volume] in Blood by Automated count 0.9 U 0.2-1.2 N [facility] Eosinophils/100 leukocytes in Blood by Automated count 1.7 % 0-7 N [facility] Eosinophils [#/volume] in Blood by Automated count 0.1 U 0.0-0.5 N [facility] Basophils/100 leukocytes in Blood by Automated count 0.9 % 0.4-1 .3 N [facility] Basophils [#/volume] in Blood by Automated count 0.1 U 0.0-0.2 [facility] NUCLEATED RED BLOOD CELL 0 % [facility] NUCLEATED RED BLOOD CELL# 0 U [facility] Immature granulocytes [Presence] in Blood by Automated count 0-2 N [facility] Immature granulocytes [#/volume] in Blood by Automated count 0.1 U 0-0.1 N [facility] Manual Differential panel - Blood NO [facility] ID Date Data Source [id number] 06/08/2020 07:28:00 AM EST [facility] Name Value Range Interpretation Code Description Data Evelin rce(s) Supporting Document(s) Urea nitrogen [Mass/volume] in Serum or Plasma 12 mg/dL 9-23 N [facility] Sodium [Moles/volume] in Serum or Plasma 138 mmol/L 132-146 [facility] Potassium [Moles/volume] in Serum or Plasma 3.6 mmol/L 3.5-5.5 [facility] Chloride [Moles/volume] in Serum or Plasma 105 mmol/L 99-109 [facility] Carbon dioxide, total [Moles/volume] in Serum or Plasma 25 mmol/L 20 -31 N [facility] Anion gap in Serum or Plasma 12 mmol/L 8-16 [facility] Glucose [Mass/volume] in Serum or Plasma 253 mg/dL 74-106 Above high normal [facility] Creatinine 0.9 mg/dL 0.5-1.1 [facility] Glomerular filtration rate/1.73 sq M.pre dicted [Volume Rate/Area] in Serum or Plasma Greater Than 60 ABOVE 60 [facility] Alanine aminotransferase [Enzymatic acti vity/volume] in Serum or Plasma by With P-5'-P 47 U/L 10-49 [facility] ital Aspartate aminotransferase [Enzymatic ac tivity/volume] in Serum or Plasma by With P-5'-P 22 U/L 0-33 N [facility] pital Alkaline phosphatase [Enzymatic activity/volume] in Serum or Plasma 112 U/L 45-129 [facility] Calcium [Mass/volume] in Serum or Plasma 8.4 mg/dL 8.5-10.1 Below low normal [facility] Bilirubin.total [Mass/volume] in Serum or Plasma 0.8 mg/dL 0.3-1.2 [facility] Albumin [Mass/volume] in Serum or Plasma by Bromocresol purple (BCP) dye binding method 2.5 g/dL 3.2-4.8 Below low normal [facility] Protein [Mass/volume] in Serum or Plasma 6.0 g/dL 5.7-8.2 [facility] ID Date Data Source [id number] 06/08/2020 07:15:00 AM EST [facility] Special Instructions: 2.5 HOURS AFTER 04 00 DOSE STARTED Name Value Range Interpretation Code Description Data Evelin rce(s) Supporting Document(s) Vancomycin [Mass/volume] in Serum or Plasma --peak 26.5 ug/mL 20-40 [facility] ID Date Data Source [id number] 06/07/2020 05:06:00 PM [facility] Special Instructions: Lab may order repe at test if initial test elevatedPhysician If elevated, reflex second test in 4-6 hrs FOR SENSITIVITES SEE SPECIMEN [id number] STAIN = GRAM POSITIVE COCCI IN CLUSTERSGROWTH IN PEDIATRIC BOTTLEPREVIOUSLY CALLED 06/07/20 Called to Barbara Shepard. Results read back.06/09/20 0744 CALLED TO BROOKE CARSON,RESULTS READBACKSTAPHYLOCOCCUS AUREUS Name Value Range Interpretation Code Description Data Evelin rce(s) Supporting Document(s) C reactive protein [Mass/volume] in Serum or Plasma 131.0 mg/L 0.0-5.0 Above high normal [facility] ID Date Data Source [id number] 06/07/2020 05:30:00 PM [facility] Special Instructions: Lab may order repe at test if initial test elevatedPhysician If elevated, reflex second test in 4-6 hrs FOR SENSITIVITES SEE SPECIMEN [id number] STAIN = GRAM POSITIVE COCCI IN CLUSTERSGROWTH IN PEDIATRIC BOTTLEPREVIOUSLY CALLED 06/07/20 Called to BRIANNA George @ [facility]. Results read back.06/09/20 0744 CALLED TO BROOKE CARSON,RESULTS READBACKSTAPHYLOCOCCUS AUREUS Name Value Range Interpretation Code Description Data Evelin rce(s) Supporting Document(s) Lactic w Rfx (if elevated) 1.6 mmol/L 0.5-2.[address] [facility] ID Date Data Source [id number] 06/07/2020 05:44:00 PM [facility] Special Instructions: Lab may order repe at test if initial test elevatedPhysician If elevated, reflex second test in 4-6 hrs FOR SENSITIVITES SEE SPECIMEN [id number] STAIN = GRAM POSITIVE COCCI IN CLUSTERSGROWTH IN PEDIATRIC BOTTLEPREVIOUSLY CALLED 06/07/20 Called to Barbara Shepard. Results read back.06/09/20 0744 CALLED TO BROOKE CARSON,RESULTS READBACKSTAPHYLOCOCCUS AUREUS Name Value Range Interpretation Code Description Data Evelin rce(s) Supporting Document(s) Erythrocyte sedimentation rate by Westergren method 51 mm/hr 0-20 Above high normal [facility] @Reenter manual test result: 51@by Iona Brady at 06/07/20 1744. ID Date Data Source [id number] 06/07/2020 01:35:00 PM EST [facility] Pharmacy Department JAGJIT IBARRA : 1960 Date: 06/07/20 [id number] Vancomycin Initiation PK Note - Labratory/Microbiology Labratory [...] H AST 66 H ALT 70 H Izf-A-Cwxqlwlofyt Pept 345.00 H Albumin 2.9 L 06/06/20 [...] rce(s) Supporting Document(s) ID Date Data Source [id number] 06/07/2020 11:58:00 AM EST [facility] [address] [place] [address] [phone] NAME SEX PT STATUS ACCOUNT NUMBER JAGJIT IBARRA ADM IN [id number] ORDERING PHYSICIAN LOCATION MEDICAL RECORD NO. Blaise RACQUEL Jauregui [id number] ATTENDING PHYSICIAN DATE OF DATE OF EXAM/TIME [...] rce(s) Supporting Document(s) ID Date Data Source [id number] 06/07/2020 11:04:00 AM EST [facility] [address] [place] [address] [phone] NAME SEX PT STATUS ACCOUNT NUMBER JAGJIT IBARRA [facility] [id number] ORDERING PHYSICIAN LOCATION MEDICAL RECORD NO. Chilo Pineda MD [id number] ATTENDING PHYSICIAN DATE OF DATE OF EXAM/TIME [...] rce(s) Supporting Document(s) ID Date Data Source [id number] 06/07/2020 09:35:00 AM [facility] Name: JAGJIT IBARRA : 1960 Age: 60 MR#: [id number] Admit Date: 06/06/20 Provider: Chilo Pineda MD [...] 06/06/20 22:10 Observation Order [STATUS] Routine Location: [facility] Primary diagnosis: chest pain Isolation: Standard precautions Admitting Provider: Chilo iPneda Observation Status: OBV less than 2 midnights [...] 77.9 H, Lymph % (Auto) 11.1 L, Citrus % (Auto) 8.5, Eos % (Auto) 1.3, Baso % (Auto) 0.4, Lymph # (Auto) 0.9, Abs Immat Gran (auto) 0.1, Add Manual Diff No, Absolute Neutrophils 6.2, Monocytes # 0.7, Absolute Eosinophils 0.1, Absolute Basophils 0.0 06/06/20 19:42: PT 11.7, INR 1.1, PTT (Meade) 27.3 06/06/20 19:42: Sodium 133, Potassium 3.5, [...] L, Lipase 130 06/06/20 19:42: Magnesium 1.8, Pmi-U-Mccacwavdrf Pept 345.00 H, TSH 2.05 06/07/20 02:05: Troponin I Less than 0.015 06/07/20 02:05: Lactic Acid 1.9 06/07/20 02:34: Urine Color Yellow, Urine Appearance Clear, Urine pH 5.0, Ur Specific Rhodhiss 1.038 A, Urine Protein 100 mg/dl H, [...] 80.0 H, Lymph % (Auto) 10.1 L, Citrus % (Auto) 8.1, Eos % (Auto) 0.7, [...] History of pulmonary embolism/DVT 6. Status post Anmoore filter placement 7. Atrial fibrillation 8. Hyperlipidemia [...] rce(s) Supporting Document(s) ID Date Data Source [id number] 06/07/2020 07:00:00 AM EST [facility] [address] [place] [address] [phone] NAME SEX PT STATUS ACCOUNT NUMBER JAGJIT IBARRA M ADM LARRY [id number] ORDERING PHYSICIAN LOCATION MEDICAL RECORD NO. Blaise RACQUEL [place] [id number] ATTENDING PHYSICIAN DATE OF DATE OF EXAM/TIME Cindy Iraheta NP 1960 06/07/20335 TYPE / EXAM CT Abdomen without contrast REASON FOR EXAM L sided chest pain, fever JAGJIT IBARRA [id number] 1960 ADDENDUM Clinical History/Indication for Exam: L sided chest pain, fever Called for Critical Findings by Barbara Rodriguez to CHALINO Oscar on 06/07/2020 4:16AM [place] Time;Call for Critical Findings EXAM: CT abdomen [...] likely related to fatty infiltration as discussed wrmeo-pfebcf-lt contrast-enhanced CT or sonography suggested for further [...] likely related to fatty infiltration as discussed yxkcb-wqaltj-ou contrast-enhanced CT or sonography suggested for further [...] rce(s) Supporting Document(s) ID Date Data Source [id number] 06/07/2020 10:24:00 AM [facility] Special Instructions: May perform off bl ood in lab Name Value Range Interpretation Code Description Data Evelin rce(s) Supporting Document(s) Thyrotropin [Units/volume] in Serum or Plasma by Detec tion limit <= 0.005 mIU/L 0.99 u[iU]/mL 0.35-5.50 N [facility] al ID Date Data Source [id number] 06/07/2020 06:26:00 AM [facility] Name Value Range Interpretation Code Description Data Evelin rce(s) Supporting Document(s) Leukocytes [#/volume] in Blood by Automated count 8.3 10*3/uL 4.45-10 .71 [facility] Erythrocytes [#/volume] in Blood by Automated count 4.01 10*6/uL 4.3-6.1 Below low normal [facility] Hemoglobin [Moles/volume] in Blood 11.8 g/dL 13-18 Below low no rmal [facility] Hematocrit [Volume Fraction] of Blood by Automated count 35.8 % 42-52 Below low normal [facility] Erythrocyte mean corpuscular volume [Ent itic volume] in Cord blood by Automated count 89.3 fL 80-96 N [facility] Erythrocyte mean corpuscular hemoglobin [Entitic mass] by Automated count 29.4 pg 27-31 N [facility] l Erythrocyte mean corpuscular hemoglobin concentration [Mass/volume] in Cord blood 33.0 g/dL 33-37 N [facility] ital Erythrocyte distribution width [Entitic volume] by Automated count 12 % 11-15 N [facility] Platelets [#/volume] in Blood by Automated count 115 10*3/uL 130-472 Below low normal [facility] Platelet mean volume [Entitic volume] in Blood 12.3 fL 9.1-13.1 N [facility] Neutrophils/100 leukocytes in Blood by Automated count 80.0 % 41-77 Above high normal [facility] Neutrophils [#/volume] in Blood by Automated count 6.6 U 1.7-7.6 N [facility] Lymphocytes/100 leukocytes in Blood by Automated count 10.1 % 14-46 Below low normal [facility] Lymphocytes [#/volume] in Blood by Automated count 0.8 U 0.6-4.6 N [facility] Monocytes/100 leukocytes in Blood by Automated count 8.1 % 4-12 N [facility] Monocytes [#/volume] in Blood by Automated count 0.7 U 0.2-1.2 N [facility] Eosinophils/100 leukocytes in Blood by Automated count 0.7 % 0-7 N [facility] Eosinophils [#/volume] in Blood by Automated count 0.1 U 0.0-0.5 N [facility] Basophils/100 leukocytes in Blood by Automated count 0.5 % 0.4-1 .3 N [facility] Basophils [#/volume] in Blood by Automated count 0.0 U 0.0-0.2 N [facility] NUCLEATED RED BLOOD CELL 0 % [facility] NUCLEATED RED BLOOD CELL# 0 U [facility] Immature granulocytes [Presence] in Blood by Automated count 0-2 N [facility] Immature granulocytes [#/volume] in Blood by Automated count 0.1 U 0-0.1 N [facility] Manual Differential panel - Blood NO [facility] ID Date Data Source [id number] 06/07/2020 07:00:00 AM EST [facility] Name Value Range Interpretation Code Description Data Evelin rce(s) Supporting Document(s) Urea nitrogen [Mass/volume] in Serum or Plasma 14 mg/dL 9-23 N [facility] Sodium [Moles/volume] in Serum or Plasma 134 mmol/L 132-146 N [facility] Potassium [Moles/volume] in Serum or Plasma 3.5 mmol/L 3.5-5.5 N [facility] Chloride [Moles/volume] in Serum or Plasma 102 mmol/L 99-109 N [facility] Carbon dioxide, total [Moles/volume] in Serum or Plasma 22 mmol/L 20 -31 N [facility] Anion gap in Serum or Plasma 14 mmol/L 8-16 N [facility] Glucose [Mass/volume] in Serum or Plasma 316 mg/dL 74-106 Above high normal [facility] Creatinine 1.2 mg/dL 0.5-1.1 Above high normal [facility] Glomerular filtration rate/1.73 sq M.pre dicted [Volume Rate/Area] in Serum or Plasma Greater Than 60 ABOVE 60 [facility] Alanine aminotransferase [Enzymatic acti vity/volume] in Serum or Plasma by With P-5'-P 61 U/L 10-49 Above high normal [facility] Aspartate aminotransferase [Enzymatic ac tivity/volume] in Serum or Plasma by With P-5'-P 46 U/L 0-33 Above high normal [facility] Alkaline phosphatase [Enzymatic activity/volume] in Serum or Plasma 174 U/L 45-129 Above high normal [facility] Calcium [Mass/volume] in Serum or Plasma 8.2 mg/dL 8.5-10.1 Below low normal [facility] Bilirubin.total [Mass/volume] in Serum or Plasma 1.1 mg/dL 0.3-1.2 N [facility] Albumin [Mass/volume] in Serum or Plasma by Bromocresol purple (BCP) dye binding method 2.7 g/dL 3.2-4.8 Below low normal [facility] Protein [Mass/volume] in Serum or Plasma 5.8 g/dL 5.7-8.2 [facility] ID Date Data Source [id number] 06/07/2020 07:00:00 AM EST [facility] Name Value Range Interpretation Code Description Data Evelin rce(s) Supporting Document(s) Troponin I.cardiac [Mass/volume] in Serum or Plasma Less Than 0.015 0.00-0.09 [facility] Less than 0.09 NG/ML Negative0.10 - 0.77 NG/ML High Risk0.78 NG/ML or Greater PositiveThe WHO defined the cutoff (definition for diagnosis of CA)for this method as 0.78 ng/ml. ID Date Data Source [id number] 06/07/2020 05:14:00 AM EST [facility] Reason for ordering culture: Abnormal fi ndings UA@06/07/20 0455: UA W/ MICRO added. RFLXG = UMIC CIF.Method of Collection:: Clean Catch Reason for ordering culture: Abnormal fi ndings UA@06/07/20 0455: UA W/ MICRO added. RFLXG = UMIC CIF.Method of Collection:: Clean Catch Name Value Range Interpretation Code Description Data Evelin rce(s) Supporting Document(s) Color of Urine [facility] Appearance of Urine CLEAR [facility] pH of Urine by Test strip 5.0 5-8 [facility] Specific gravity of Urine by Refractometry 1.038 1.005 -1.030 Abnormal (applies to non-numeric results) [facility] Leukocyte esterase [Presence] in Urine by Test strip NEGAT ASH [facility] Nitrite [Presence] in Urine by Test strip NEGATIVE [facility] Protein [Presence] in Urine by Test strip NEGATIVE Above high normal [facility] @DO MICRO!!!! Glucose [Mass/volume] in Urine by Automated test strip > 1000 mg /dl NEGATIVE Abnormal (applies to non-numeric results) [facility] Ketones [Presence] in Urine by Test strip NEGATI VE Abnormal (applies to non- numeric results) [facility] Urobilinogen [Presence] in Urine 0.2-1 EU/dl [facility] Bilirubin.total [Presence] in Urine by Automated test strip NEGATIVE [facility] Erythrocytes [#/volume] in Urine by Test strip TRACE N EGATIVE Abnormal (applies to non-numeric results) [facility] @DO MICRO!!!! URINE MICROSCOPIC? (CIF) Microscopic Added [facility] ID Date Data Source [id number] 06/07/2020 05:14:00 AM EST [facility] Reason for ordering culture: Abnormal [...] in Urine by Manual count OCCASIONAL 0-5 [facility] Leukocytes [#/volume] in Urine by Manual count 2-4 /hpf 0-5 [facility] Bacteria [Presence] in Urine sediment by Light microscopy NEGATIVE Above high normal [facility] ID Date Data Source [id number] 06/07/2020 02:53:00 AM [facility] Special Instructions: Lab may order repe at test if initial test elevatedPhysician If elevated, reflex second test in 4-6 hrs FOR SENSITIVITIES SEE SPECIMEN [id number] STAIN = GRAM POSITIVE COCCI IN CLUSTERS GROWING IN BOTHAEROBIC AND ANAERIC [id number]/15/2144 CALLED TO BROOKE CARSON,RESULTS READBACK06/07/20 Called to BRIANNA B @ 1453 by Barbara Krishna. Results readback.STAPHYLOCOCCUS AUREUS Name Value Range Interpretation Code Description Data Evelin rce(s) Supporting Document(s) Lactic w Rfx (if elevated) 1.9 mmol/L 0.5-2.[address] [facility] ID Date Data Source [id number] 06/09/2020 07:49:00 AM [facility] Special Instructions: Lab may order repe at test if initial test elevatedPhysician If elevated, reflex second test in 4-6 hrs FOR SENSITIVITIES SEE SPECIMEN [id number] STAIN = GRAM POSITIVE COCCI IN CLUSTERS GROWING IN BOTHAEROBIC AND ANAERIC [id number]/15/2144 CALLED TO BROOKE CARSON,RESULTS READBACK06/07/20 Called to BRIANNA B @ 1453 by Barbara Krishna. Results readback.STAPHYLOCOCCUS AUREUS Name Value Range Interpretation Code Description Data Evelin rce(s) Supporting Document(s) ID Date Data Source [id number] 06/09/2020 07:47:00 AM [facility] Special Instructions: Lab may order repe at test if initial test elevatedPhysician If elevated, reflex second test in 4-6 hrs FOR SENSITIVITIES SEE SPECIMEN [id number] STAIN = GRAM POSITIVE COCCI IN CLUSTERS GROWING IN BOTHAEROBIC AND ANAERIC NRLJFTQ67/15/21 0744 CALLED TO BROOKE Hernandes BY ALLI,RESULTS READBACK06/07/20 Called to BRIANNA Kelley 2154 by Barbara Krishna. Results readback.STAPHYLOCOCCUS AUREUS Name Value Range Interpretation Code Description Data Evelin rce(s) Supporting Document(s) TRIMETHOPRIM/SULFAMETHOXAZOLE <0.5/9.5 Andre sceptible. Indicates for microbiology susceptibilities only. [facility] Amoxicillin+Clavulanate [Susceptibility] by Minimum inhibitory concentration (GUY) <4/2 Susceptible. Indicates for microbiology s usceptibilities only. [facility] Ampicillin [Susceptibility] by Minimum inhibitory concentration (GUY) >8 Resistant. Indicates for microbiology susceptibilities only. [facility] Ampicillin+Sulbactam [Susceptibility] by Minimum inhib itory concentration (GUY) <8/4 Susceptible. Indicates for microbiology suscepti bilities only. [facility] Cefazolin [Susceptibility] by Minimum inhibitory concentration ( GUY) <4 Susceptible. Indicates for microbiology susceptibilities only. [facility] Ciprofloxacin [Susceptibility] by Minimum inhibitory concentrati on (GUY) <1 Susceptible. Indicates for microbiology susceptibilities only. [facility] Clindamycin [Susceptibility] by Minimum inhibitory concentration (GUY) <0.5 Susceptible. Indicates for microbiology susceptibilities only. [facility] Erythromycin [Susceptibility] by Minimum inhibitory concentratio n (GUY) <0.5 Susceptible. Indicates for microbiology susceptibilities only. [facility] Gentamicin [Susceptibility] by Minimum inhibitory concentration (GYU) <4 Susceptible. Indicates for microbiology susceptibilities only. [facility] Oxacillin [Susceptibility] by Minimum inhibitory concentration ( GUY) 0.5 Susceptible. Indicates for microbiology susceptibilities only. [facility] Penicillin [Susceptibility] by Minimum inhibitory concentration (GUY) >8 Resistant. Indicates for microbiology susceptibilities only. [facility] Tetracycline [Susceptibility] by Minimum inhibitory concentratio n (GUY) <4 Susceptible. Indicates for microbiology susceptibilities only. [facility] Vancomycin [Susceptibility] by Minimum inhibitory concentration (GUY) 2 Susceptible. Indicates for microbiology susceptibilities only. [facility] Levofloxacin [Susceptibility] by Minimum inhibitory concentratio n (GUY) <1 Susceptible. Indicates for microbiology susceptibilities only. [facility] Moxifloxacin [Susceptibility] by Minimum inhibitory concentratio n (GUY) <0.5 Susceptible. Indicates for microbiology susceptibilities only. [facility] ID Date Data Source [id number] 06/07/2020 02:51:00 PM [facility] Called to BRIANNA Doris @ 3167 by Barbara Krishna. Results read back.The FilmArray [...] rce(s) Supporting Document(s) ID Date Data Source [id number] 06/07/2020 02:42:00 AM [facility] Name Value Range Interpretation Code Description Data Evelin rce(s) Supporting Document(s) Troponin I.cardiac [Mass/volume] in Serum or Plasma Less Than 0.015 0.00-0.09 N [facility] Less than 0.09 NG/ML Negative0.10 - 0.77 NG/ML High Risk0.78 NG/ML or Greater PositiveThe WHO defined the cutoff (definition for diagnosis of CA)for this method as 0.78 ng/ml. ID Date Data Source [id number] 06/06/2020 10:24:00 PM [facility] Name: JAGJIT IBARRA : 1960 Age: 60 MR#: [id number] Admit Date: 06/06/20 Provider: Blaise Jauregui Room [...] available for consult. Note was transcribed using [employer] phone. The note was reviewed for accuracy [...] Free Text/Narrative:: 60y/o Male patient presented to [facility] via EMS for left-sided chest [...] forCAD with stent x2, pulmonary embolism, DVT, Anmoore filter, AICD/pacemaker, diabetes mellitus. Patient was evaluated [...] H/H 12.3/36.3, Plt 208. CMP significant for BUN/Park Guard 16/1.5, AST66,ALT70, Albumin 2.9, BNP 345, Glucose [...] 77.9 H, Lymph % (Auto) 11.1 L, Citrus % (Auto) 8.5, Eos % (Auto) 1.3, Baso % (Auto) 0.4, Lymph # (Auto) 0.9, Abs Immat Gran (auto) 0.1, Add Manual Diff No, Absolute Neutrophils 6.2, Monocytes # 0.7, Absolute Eosinophils 0.1, Absolute Basophils 0.0 06/06/20 19:42: PT 11.7, INR 1.1, PTT (Meade) 27.3 06/06/20 19:42: Sodium 133, Potassium 3.5, [...] L, Lipase 130 06/06/20 19:42: Magnesium 1.8, Pao-T-Dzmllizsijv Pept 345.00 H, TSH 2.05 Microbiology 06/06/20 [...] 60-year-old male patient will be brought into [facility] on telemetry for observation for [...] available for consult. Note was transcribed using [employer] phone. The note was reviewed for accuracy [...] rce(s) Supporting Document(s) ID Date Data Source [id number] 06/07/2020 06:16:00 AM [facility] @ [place] DATE was changed from 06/07/20 to 06/06/20@ carl BEASLEY.THIS RP PANEL TESTS FOR SARS-CoV-2,(COVID-19)FilmArray Respiratory Panel is a Multiplexed NAAT-PCR testNORMAL VALUE FOR ALL 20 PATHOGENS IS "NOT DETECTED".The FilmArray RP panel detects Influenza A H1,H3 aio2344 H1 viruses,Influenza B virus, Respiratory syncytialvirus, Human [...] rce(s) Supporting Document(s) ID Date Data Source [id number] 06/06/2020 10:06:00 PM [facility] Bridget Ce is a rapid, automated qualita tive anddifferentiation of Influenza type A,B and KDNI-GGP-1TFAM-RT-PCR testNORMAL VALUE IS "NOT DETECTED".Limitations of the bridget ce Influenza A/B & LCUZ-WPJ-3mvumh method.Modifications to manufacturers recommendation and proceduresmay alter performance of the test.Negative results do not preclude Influenza A,B or SARS- HLN8rqwxueehed and should not be used as the [...] rce(s) Supporting Document(s) ID Date Data Source [id number] 06/06/2020 10:06:00 PM [facility] Bridget Ce is a rapid, automated qualita tive anddifferentiation of Influenza type A,B and ISRV-OHZ-2MSRG-RT-PCR testNORMAL VALUE IS "NOT DETECTED".Limitations of the bridget ce Influenza A/B & XLHS-JVK-5srdfm method.Modifications to manufacturers recommendation and proceduresmay alter performance of the test.Negative results do not preclude Influenza A,B or SARS- NIL4moyodvgjec and should not be used as the [...] Document(s) Extended hours FLU/COV2 NAAT CE L [facility] ID Date Data Source [id number] 06/06/2020 08:14:00 PM [facility] [address] [place] [address] [phone] NAME SEX PT STATUS ACCOUNT NUMBER JAGJIT IBARRA REG ER [id number] ORDERING PHYSICIAN LOCATION MEDICAL RECORD NO. Isaías Nichols MD ER [id number] ATTENDING PHYSICIAN DATE OF DATE OF EXAM/TIME Doctor Provided,No Family 1960 06/06/201928 TYPE / EXAM CTA Chest non-card W/ or w/o REASON FOR EXAM CP Hx PE CA Clinical History/Indication for Exam: CP Hx PE CA CT ANGIOGRAPHY CHEST WITHOUT AND WITH INTRAVENOUS [...] rce(s) Supporting Document(s) ID Date Data Source [id number] 06/06/2020 08:08:00 PM EST [facility] ED Physician Documentation NAME: JAGJIT IBARRA : 1960 AGE: 60 MR#: [id number] SERVICE DATE: 06/06/[address]: Isaías Nichols MD PRIMARY CARE DR: No Family PHYS Provided ROOM#: [facility] (Adult, General) General Chief Complaint: Cardiovascular [...] Llamas MD) Deep vein thrombosis Diabetes mellitus Anmoore filter in place Hypertension Myocardial infarction Pacemaker [...] 77.9 H, Lymph % (Auto) 11.1 L, Citrus % (Auto) 8.5, Eos % (Auto) 1.3, [...] L, Lipase 130 06/06/20 19:42: Magnesium 1.8, Epb-Z-Flkuvwsosjn Pept 345.00 H, TSH 2.05 EKG Data [...] morning for further instructions 2120 telecom arline Borwn to telemetry obs - [place] , Differential [...] Pain / Syncope (per pt) / Hx CA stents x 2/ Hx PE (per pt) [...] Signers: <Electronically signed by Isaías Nichols MD> Isaías Nichols MD 06/06/20 2133 Isaías Nichols MD SIGNATURE DA Report Cosigners: D: REBECCA 06/06/202007 T: REBECCA 06/06/202007 CC: No Family PHYS Provided Name Value Range Interpretation Code Description Data Evelin rce(s) Supporting Document(s) ID Date Data Source [id number] 06/06/2020 08:32:00 PM [facility] Name Value Range Interpretation Code Description Data Evelin rce(s) Supporting Document(s) Magnesium [Mass/volume] in Serum or Plasma 1.8 mg/dL 1.3-2.7 [facility] ID Date Data Source [id number] 06/06/2020 08:32:00 PM [facility] Name Value Range Interpretation Code Description Data Evelin rce(s) Supporting Document(s) Thyrotropin [Units/volume] in Serum or Plasma by Detec tion limit <= 0.005 mIU/L 2.05 u[iU]/mL 0.35[facility]5.[facility] Date Data Source [id number] 06/06/2020 08:32:00 PM [facility] Name Value Range Interpretation Code Description Data Evelin rce(s) Supporting Document(s) Natriuretic peptide.B prohormone N-Terminal [Mass/volu me] in Serum or Plasma 345.00 pg/mL 0.00-175 Above high normal [facility] spital ID Date Data Source [id number] 06/06/2020 07:56:00 PM [facility] Anticoagulant or Thrombolytic medication : Other Po Anticoagulant Name Value Range Interpretation Code Description Data Evelin rce(s) Supporting Document(s) Leukocytes [#/volume] in Blood by Automated count 8.0 10*3/uL 4.45-10 .71 N [facility] Erythrocytes [#/volume] in Blood by Automated count 4.19 10*6/uL 4.3-6.1 Below low normal [facility] Hemoglobin [Moles/volume] in Blood 12.3 g/dL 13-18 Below low no rmal [facility] Hematocrit [Volume Fraction] of Blood by Automated count 36.3 % 42-52 Below low normal [facility] Erythrocyte mean corpuscular volume [Ent itic volume] in Cord blood by Automated count 86.6 fL 80-96 N [facility] Erythrocyte mean corpuscular hemoglobin [Entitic mass] by Automated count 29.4 pg 27-31 N [facility] l Erythrocyte mean corpuscular hemoglobin concentration [Mass/volume] in Cord blood 33.9 g/dL 33-37 N [facility] Erythrocyte distribution width [Entitic volume] by Automated count 12 % 11-15 N [facility] Platelets [#/volume] in Blood by Automated count 208 10*3/uL 130-472 N [facility] Platelet mean volume [Entitic volume] in Blood 10.0 fL 9.1-13.1 N [facility] Neutrophils/100 leukocytes in Blood by Automated count 77.9 % 41-77 Above high normal [facility] Neutrophils [#/volume] in Blood by Automated count 6.2 U 1.7-7.6 N [facility] Lymphocytes/100 leukocytes in Blood by Automated count 11.1 % 14-46 Below low normal [facility] Lymphocytes [#/volume] in Blood by Automated count 0.9 U 0.6-4.6 N [facility] Monocytes/100 leukocytes in Blood by Automated count 8.5 % 4-12 N [facility] Monocytes [#/volume] in Blood by Automated count 0.7 U 0.2-1.2 N [facility] Eosinophils/100 leukocytes in Blood by Automated count 1.3 % 0-7 N [facility] Eosinophils [#/volume] in Blood by Automated count 0.1 U 0.0-0.5 N [facility] Basophils/100 leukocytes in Blood by Automated count 0.4 % 0.4-1 .3 N [facility] Basophils [#/volume] in Blood by Automated count 0.0 U 0.0-0.2 N [facility] NUCLEATED RED BLOOD CELL 0 % [facility] NUCLEATED RED BLOOD CELL# 0 U [facility] Immature granulocytes [Presence] in Blood by Automated count 0-2 N [facility] Immature granulocytes [#/volume] in Blood by Automated count 0.1 U 0-0.1 N [facility] Manual Differential panel - Blood NO [facility] ID Date Data Source [id number] 06/06/2020 08:20:00 PM [facility] Anticoagulant or Thrombolytic medication : Other Po Anticoagulant Name Value Range Interpretation Code Description Data Evelin rce(s) Supporting Document(s) Prothrombin Time (Patient) 11.7 s 9.6-12.3 N [facility] INR 1.1 0.9-1.1 [facility] THE INR IS OPERATIONALLY DEFINED FOR RIKI SH PLASMA FROMPATIENTS STABILIZED ON ORAL ANTICOAGULANTS.ROUTINE ANTICOAGULANT THERAPY 2.0-3.0RECURRENT SYSTEMIC EMBOLISM/HEART VALVE REPLACEMENT 2.5-3.5 aPTT.lupus sensitive (LA screen) 27.3 s 22.7-31.6 N [facility] ID Date Data Source [id number] 06/06/2020 08:28:00 PM [facility] Anticoagulant or Thrombolytic medication : Other Po Anticoagulant Name Value Range Interpretation Code Description Data Evelin rce(s) Supporting Document(s) Urea nitrogen [Mass/volume] in Serum or Plasma 16 mg/dL 9-23 N [facility] Sodium [Moles/volume] in Serum or Plasma 133 mmol/L 132-146 N [facility] Potassium [Moles/volume] in Serum or Plasma 3.5 mmol/L 3.5-5.5 N [facility] Chloride [Moles/volume] in Serum or Plasma 99 mmol/L 99-109 N [facility] Carbon dioxide, total [Moles/volume] in Serum or Plasma 27 mmol/L 20 -31 N [facility] Anion gap in Serum or Plasma 11 mmol/L 8-16 N [facility] Glucose [Mass/volume] in Serum or Plasma 323 mg/dL 74-106 Above high normal [facility] Creatinine 1.5 mg/dL 0.5-1.1 Above high normal [facility] Glomerular filtration rate/1.73 sq M.pre dicted [Volume Rate/Area] in Serum or Plasma 48 ml/min ABOVE 60 [facility] ital Alanine aminotransferase [Enzymatic acti vity/volume] in Serum or Plasma by With P-5'-P 70 U/L 10-49 Above high normal [facility] Aspartate aminotransferase [Enzymatic ac tivity/volume] in Serum or Plasma by With P-5'-P 66 U/L 0-33 Above high normal [facility] Alkaline phosphatase [Enzymatic activity/volume] in Serum or Plasma 127 U/L 45-129 N [facility] Calcium [Mass/volume] in Serum or Plasma 8.6 mg/dL 8.5-10.1 N [facility] Bilirubin.total [Mass/volume] in Serum or Plasma 1.1 mg/dL 0.3-1.2 N [facility] Albumin [Mass/volume] in Serum or Plasma by Bromocresol purple (BCP) dye binding method 2.9 g/dL 3.2-4.8 Below low normal [facility] Protein [Mass/volume] in Serum or Plasma 6.9 g/dL 5.7-8.2 N [facility] ID Date Data Source [id number] 06/06/2020 08:28:00 PM [facility] Anticoagulant or Thrombolytic medication : Other Po Anticoagulant Name Value Range Interpretation Code Description Data Evelin rce(s) Supporting Document(s) Lipase [Enzymatic activity/volume] in Serum or Plasma 130 U/L 73-3 93 N [facility] ID Date Data Source [id number] 06/06/2020 08:28:00 PM [facility] Anticoagulant or Thrombolytic medication : Other Po Anticoagulant Name Value Range Interpretation Code Description Data Evelin rce(s) Supporting Document(s) Creatine kinase [Enzymatic activity/volume] in Serum or Plasma 56 U /L 33-211 N [facility] Creatine kinase.MB [Enzymatic activity/volume] in Serum or P lasma Less Than 1.0 0.0-5.0 N [facility] @Report as less than lower limit ID Date Data Source [id number] 06/06/2020 08:28:00 PM EST [facility] Anticoagulant or Thrombolytic medication : Other Po Anticoagulant Name Value Range Interpretation Code Description Data Evelin rce(s) Supporting Document(s) Troponin I.cardiac [Mass/volume] in Serum or Plasma Less Than 0.015 0.00-0.09 N [facility] Less than 0.09 NG/ML Negative0.10 - 0.77 NG/ML High Risk0.78 NG/ML or Greater PositiveThe WHO defined the cutoff (definition for diagnosis of CA)for this method as 0.78 ng/ml. ID Date Data Source [id number] 06/06/2020 03:54:00 PM EST [facility]) Name Value Range Interpretation Code Description Data Evelin rce(s) Supporting Document(s) Icd Dual Program Laboratory test result [facility] ([facility]) ID Date Data Source [id number] 06/06/2020 12:00:00 AM EST [facility] Name Value Range Interpretation Code Description Data Evelin rce(s) Supporting Document(s) SARS-CoV2 Rapid PCR Not Detected [facility] This lab was ordered by [facility] and reported by [facility]. ID Date Data Source [id number] 05/31/2020 08:09:00 AM [facility] Name: JAGJIT IBARRA : 1960 Age: 60 MR#: [id number] Admit Date: 05/29/20 Provider: Christo Llamas MD Room #: 291 Consulting Provider: [facility] Cardiology Dictation Date: 05/31/20 Discharge Summary Discharge [...] % (Auto) 69.5, Lymph % (Auto) 21.9, Citrus % (Auto) 6.1, Eos % (Auto) 1.3, [...] check at 2 pm. Ground floor at [facility] JUNE 06 IN THE [place] OFFICE 2;45PM) Ida Alcantara, [employer] [FAMILY NURSE PRACTITIONER] - 06/14/20 10:15 am [...] rce(s) Supporting Document(s) ID Date Data Source [id number] 05/31/2020 07:56:00 AM [facility] Name Value Range Interpretation Code Description Data Evelin rce(s) Supporting Document(s) Leukocytes [#/volume] in Blood by Automated count 11.6 10*3/uL 4.45-10.71 Above high normal [facility] Erythrocytes [#/volume] in Blood by Automated count 5.27 10*6/uL 4.3- 6.1 N [facility] Hemoglobin [Moles/volume] in Blood 15.6 g/dL 13-18 N [facility] Hematocrit [Volume Fraction] of Blood by Automated count 45.9 % 4 2-52 N [facility] Erythrocyte mean corpuscular volume [Ent itic volume] in Cord blood by Automated count 87.1 fL 80-96 N [facility] ital Erythrocyte mean corpuscular hemoglobin [Entitic mass] by Automated count 29.6 pg 27-31 [facility] Erythrocyte mean corpuscular hemoglobin concentration [Mass/volume] in Cord blood 34.0 g/dL 33-37 N [facility] ital Erythrocyte distribution width [Entitic volume] by Automated count 12 % 11-15 N [facility] Platelets [#/volume] in Blood by Automated count 204 10*3/uL 130-472 N [facility] Platelet mean volume [Entitic volume] in Blood 10.4 fL 9.1-13.1 N [facility] Neutrophils/100 leukocytes in Blood by Automated count 69.5 % 41- 77 N [facility] Neutrophils [#/volume] in Blood by Automated count 8.0 U 1.7-7.6 Above high normal [facility] Lymphocytes/100 leukocytes in Blood by Automated count 21.9 % 14- 46 N [facility] Lymphocytes [#/volume] in Blood by Automated count 2.5 U 0.6-4.6 N [facility] Monocytes/100 leukocytes in Blood by Automated count 6.1 % 4-12 N [facility] Monocytes [#/volume] in Blood by Automated count 0.7 U 0.2-1.2 N [facility] Eosinophils/100 leukocytes in Blood by Automated count 1.3 % 0-7 N [facility] Eosinophils [#/volume] in Blood by Automated count 0.2 U 0.0-0.5 N [facility] Basophils/100 leukocytes in Blood by Automated count 0.5 % 0.4-1 .3 N [facility] Basophils [#/volume] in Blood by Automated count 0.1 U 0.0-0.2 N [facility] NUCLEATED RED BLOOD CELL 0 % [facility] NUCLEATED RED BLOOD CELL# 0 U [facility] Immature granulocytes [Presence] in Blood by Automated count 0-2 N [facility] Immature granulocytes [#/volume] in Blood by Automated count 0.1 U 0-0.1 N [facility] Manual Differential panel - Blood NO [facility] ID Date Data Source [id number] 05/31/2020 08:28:00 AM [facility] Name Value Range Interpretation Code Description Data Evelin rce(s) Supporting Document(s) Urea nitrogen [Mass/volume] in Serum or Plasma 20 mg/dL 9-23 N [facility] Sodium [Moles/volume] in Serum or Plasma 138 mmol/L 132-146 [facility] Potassium [Moles/volume] in Serum or Plasma 4.4 mmol/L 3.5-5.5 [facility] Chloride [Moles/volume] in Serum or Plasma 107 mmol/L 99-109 N [facility] Carbon dioxide, total [Moles/volume] in Serum or Plasma 23 mmol/L 20 -31 N [facility] Anion gap in Serum or Plasma 12 mmol/L 8-16 [facility] Glucose [Mass/volume] in Serum or Plasma 264 mg/dL 74-106 Above high normal [facility] Creatinine 1.0 mg/dL 0.5-1.1 [facility] Glomerular filtration rate/1.73 sq M.pre dicted [Volume Rate/Area] in Serum or Plasma Greater Than 60 ABOVE 60 [facility] Alanine aminotransferase [Enzymatic acti vity/volume] in Serum or Plasma by With P-5'-P 54 U/L 10-49 Above high normal [facility] Aspartate aminotransferase [Enzymatic ac tivity/volume] in Serum or Plasma by With P-5'-P 18 U/L 0-33 [facility] pital Alkaline phosphatase [Enzymatic activity/volume] in Serum or Plasma 80 U/L 45-129 [facility] Calcium [Mass/volume] in Serum or Plasma 8.9 mg/dL 8.5-10.1 [facility] Bilirubin.total [Mass/volume] in Serum or Plasma 1.2 mg/dL 0.3-1.2 [facility] Albumin [Mass/volume] in Serum or Plasma by Bromocresol purple (BCP) dye binding method 3.8 g/dL 3.2-4.8 [facility] ital Protein [Mass/volume] in Serum or Plasma 7.0 g/dL 5.7-8.2 [facility] ID Date Data Source [id number] 05/31/2020 08:21:00 AM [facility] Anticoagulant or Thrombolytic medication :: Coumadin/Warfarin Name Value Range Interpretation Code Description Data Evelin rce(s) Supporting Document(s) Prothrombin Time (Patient) 11.9 s 9.6-12.3 N [facility] INR 1.1 0.9-1.1 N [facility] THE INR IS OPERATIONALLY DEFINED FOR RIKI SH PLASMA FROMPATIENTS STABILIZED ON ORAL ANTICOAGULANTS.ROUTINE ANTICOAGULANT THERAPY 2.0-3.0RECURRENT SYSTEMIC EMBOLISM/HEART VALVE REPLACEMENT 2.5-3.5 ID Date Data Source [id number] 05/30/2020 03:47:00 PM EST [facility]) Name Value Range Interpretation Code Description Data Evelin rce(s) Supporting Document(s) .Scanned Labs Laboratory test result [facility] ([facility]) ID Date Data Source [id number] 05/30/2020 03:22:00 PM [facility] Name: JAGJIT IBARRA : 1960 Age: 60 MR#: [id number] Admit Date: 05/29/20 Provider: Christo Llamas MD Room #: 281 Consulting Provider: [facility] Cardiology Dictation Date: 05/30/20 Progress Note Subjective-ROS [...] Calcium 8.9, Troponin I 0.075 05/29/20 21:55: Kxe-I-Kvuvvydckip Pept 2564.00 H 05/30/20 04:28: WBC 10.0, RBC 4.89, Hgb 14.7, Hct 42.6, MCV 87.1, MCH 30.1, MCHC 34.5, RDW 12, Plt Count 208, MPV 10.5, Immature Gran % (Auto) 1.3, Neut % (Auto) 56.5, Lymph % (Auto) 31.0, Citrus % (Auto) 8.0, Eos % (Auto) 2.4, [...] rce(s) Supporting Document(s) ID Date Data Source [id number] 05/30/2020 10:41:00 AM EST [facility] CONSULTATION REPORT NAME: JAGJIT IBARRA : 1960 AGE: 60 MR#: [id number] ADMITTING DATE: 05/29/[address]: Christo Llamas [...] stent placement. This was all done in [place], [place]. Detailed operative report is not available. Patientin view of s ignificant LV dysfunction, in May 2014 underwent ICD placement, dual chamber. Patient about a year later had a CVA for which he was started on anticoagulation and has remained onanticoagulation since then. Patient is getting refills of his medications from [facility]. Last evaluated several months ago by tele [...] REVIEW OF SYSTEMS Unemployed, gets services through [facility] in [place]. History of smoking. Denies any drug or [...] this pleasant gentleman. CC: Christo Llamas MD; [facility] <Electronically signed by Tremaine Ledesma MD> Tremaine Ledesma MD 06/30/20 1231 Tremaine Ledesma M.D. Cosigner: D: DANA 05/30/20 1041 T: DWAYNE 05/30/20 1121 CC: Christo Llamas MD; Tremaine Ledesma M.D.; No Family PHYS Provided LAST EDIT: Name Value Range Interpretation Code Description Data Evelin rce(s) Supporting Document(s) ID Date Data Source [id number] 05/30/2020 05:02:00 AM EST [facility] Name Value Range Interpretation Code Description Data Evelin rce(s) Supporting Document(s) Leukocytes [#/volume] in Blood by Automated count 10.0 10*3/uL 4.45-1 0.71 N [facility] Erythrocytes [#/volume] in Blood by Automated count 4.89 10*6/uL 4.3- 6.1 N [facility] Hemoglobin [Moles/volume] in Blood 14.7 g/dL 13-18 N [facility] Hematocrit [Volume Fraction] of Blood by Automated count 42.6 % 4 2-52 N [facility] Erythrocyte mean corpuscular volume [Ent itic volume] in Cord blood by Automated count 87.1 fL 80-96 N [facility] ital Erythrocyte mean corpuscular hemoglobin [Entitic mass] by Automated count 30.1 pg 27-31 N [facility] l Erythrocyte mean corpuscular hemoglobin concentration [Mass/volume] in Cord blood 34.5 g/dL 33-37 N [facility] ital Erythrocyte distribution width [Entitic volume] by Automated count 12 % 11-15 N [facility] Platelets [#/volume] in Blood by Automated count 208 10*3/uL 130-472 N [facility] Platelet mean volume [Entitic volume] in Blood 10.5 fL 9.1-13.1 N [facility] Neutrophils/100 leukocytes in Blood by Automated count 56.5 % 41- 77 N [facility] Neutrophils [#/volume] in Blood by Automated count 5.7 U 1.7-7.6 N [facility] Lymphocytes/100 leukocytes in Blood by Automated count 31.0 % 14- 46 N [facility] Lymphocytes [#/volume] in Blood by Automated count 3.1 U 0.6-4.6 N [facility] Monocytes/100 leukocytes in Blood by Automated count 8.0 % 4-12 N [facility] Monocytes [#/volume] in Blood by Automated count 0.8 U 0.2-1.2 N [facility] Eosinophils/100 leukocytes in Blood by Automated count 2.4 % 0-7 N [facility] Eosinophils [#/volume] in Blood by Automated count 0.2 U 0.0-0.5 N [facility] Basophils/100 leukocytes in Blood by Automated count 0.8 % 0.4-1 .3 N [facility] Basophils [#/volume] in Blood by Automated count 0.1 U 0.0-0.2 N [facility] NUCLEATED RED BLOOD CELL 0 % [facility] NUCLEATED RED BLOOD CELL# 0 U [facility] Immature granulocytes [Presence] in Blood by Automated count 0-2 N [facility] Immature granulocytes [#/volume] in Blood by Automated count 0.1 U 0-0.1 N [facility] Manual Differential panel - Blood NO [facility] ID Date Data Source [id number] 05/30/2020 06:28:00 AM EST [facility] Name Value Range Interpretation Code Description Data Evelin rce(s) Supporting Document(s) Urea nitrogen [Mass/volume] in Serum or Plasma 27 mg/dL 9-23 Above high normal [facility] Sodium [Moles/volume] in Serum or Plasma 139 mmol/L 132-146 N [facility] Potassium [Moles/volume] in Serum or Plasma 3.8 mmol/L 3.5-5.5 N [facility] Chloride [Moles/volume] in Serum or Plasma 109 mmol/L 99-109 N [facility] Carbon dioxide, total [Moles/volume] in Serum or Plasma 23 mmol/L 20 -31 N [facility] Anion gap in Serum or Plasma 11 mmol/L 8-16 N [facility] Glucose [Mass/volume] in Serum or Plasma 299 mg/dL 74-106 Above high normal [facility] Creatinine 1.2 mg/dL 0.5-1.1 Above high normal [facility] Glomerular filtration rate/1.73 sq M.pre dicted [Volume Rate/Area] in Serum or Plasma Greater Than 60 ABOVE 60 [facility] Alanine aminotransferase [Enzymatic acti vity/volume] in Serum or Plasma by With P-5'-P 54 U/L 10-49 Above high normal [facility] Aspartate aminotransferase [Enzymatic ac tivity/volume] in Serum or Plasma by With P-5'-P 37 U/L 0-33 Above high normal [facility] Alkaline phosphatase [Enzymatic activity/volume] in Serum or Plasma 69 U/L 45-129 N [facility] Calcium [Mass/volume] in Serum or Plasma 8.7 mg/dL 8.5-10.1 [facility] Bilirubin.total [Mass/volume] in Serum or Plasma 1.3 mg/dL 0.3-1.2 Above high normal [facility] Albumin [Mass/volume] in Serum or Plasma by Bromocresol purple (BCP) dye binding method 3.4 g/dL 3.2-4.8 [facility] ital Protein [Mass/volume] in Serum or Plasma 6.5 g/dL 5.7-8.2 [facility] ID Date Data Source [id number] 05/30/2020 05:21:00 AM [facility] Anticoagulant or Thrombolytic medication :: Coumadin/Warfarin Name Value Range Interpretation Code Description Data Evelin rce(s) Supporting Document(s) Prothrombin Time (Patient) 12.4 s 9.6-12.3 Above high normal [facility] INR 1.2 0.9-1.1 Above [facility] THE INR IS OPERATIONALLY DEFINED FOR RIKI SH PLASMA FROMPATIENTS STABILIZED ON ORAL ANTICOAGULANTS.ROUTINE ANTICOAGULANT THERAPY 2.0-3.0RECURRENT SYSTEMIC EMBOLISM/HEART VALVE REPLACEMENT 2.5-3.5 ID Date Data Source [id number] 05/29/2020 10:52:00 PM [facility] Special Instructions: from the last labs Name Value Range Interpretation Code Description Data Evelin rce(s) Supporting Document(s) Natriuretic peptide.B prohormone N-Terminal [Mass/volu me] in Serum or Plasma 2564.00 pg/mL 0.00-175 Above [place] normal [facility] ospital ID Date Data Source [id number] 05/29/2020 10:40:00 PM [facility] Name Value Range Interpretation Code Description Data Evelin rce(s) Supporting Document(s) Urea nitrogen [Mass/volume] in Serum or Plasma 26 mg/dL 9-23 Above high normal [facility] Sodium [Moles/volume] in Serum or Plasma 139 mmol/L 132-146 [facility] Potassium [Moles/volume] in Serum or Plasma 4.2 mmol/L 3.5-5.5 [facility] Chloride [Moles/volume] in Serum or Plasma 109 mmol/L 99-109 [facility] Carbon dioxide, total [Moles/volume] in Serum or Plasma 21 mmol/L 20 -31 [facility] Anion gap in Serum or Plasma 13 mmol/L 8-16 N [facility] Glucose [Mass/volume] in Serum or Plasma 319 mg/dL 74-106 Above [facility] Creatinine 1.2 mg/dL 0.5-1.1 Above high normal [facility] Glomerular filtration rate/1.73 sq M.pre dicted [Volume Rate/Area] in Serum or Plasma Greater Than 60 ABOVE 60 [facility] Calcium [Mass/volume] in Serum or Plasma 8.9 mg/dL 8.5-10.1 N [facility] ID Date Data Source [id number] 05/29/2020 10:40:00 PM [facility] Name Value Range Interpretation Code Description Data Evelin rce(s) Supporting Document(s) Troponin I.cardiac [Mass/volume] in Serum or Plasma 0.075 ng/mL 0.00- 0.09 [facility] Less than 0.09 NG/ML Negative0.10 - 0.77 NG/ML High Risk0.78 NG/ML or Greater PositiveThe WHO defined the cutoff (definition for diagnosis of CA)for this method as 0.78 ng/ml. ID Date Data Source [id number] 05/29/2020 06:52:00 PM [facility] Name: JAGJIT IBARRA : 1960 Age: 60 MR#: [id number] Admit Date: 05/29/20 Provider: Christo Llamas MD Room #: 281 Consulting Provider: [facility] Cardiology Dictation Date: 05/29/20 History Physical HPI [...] Medical History Deep vein thrombosis Diabetes mellitus [place] filter in place Hypertension Myocardial infarction Pacemaker [...] Smoking Status: Current every day smoker Additional [facility] information Additional Family History: Pt does not [...] PT 12.6 H, INR 1.2 H, PTT ([place]) 29.1 05/29/20 14:35: WBC 11.2 H, RBC 5.73, Hgb 17.2, Hct 49.4, MCV 86.2, MCH 30.0, MCHC 34.8, RDW 12, Plt Count 239, MPV 10.3, Immature Gran % (Auto) 1.2, Neut % (Auto) 63.5, Lymph % (Auto) 25.6, Citrus % (Auto) 7.0, Eos % (Auto) 1.9, [...] Organisms Detected Exam Const General: cooperative [facility] Mouth: moist mucous membranes Neck Neck: supple [...] rce(s) Supporting Document(s) ID Date Data Source [id number] 05/29/2020 07:20:00 PM [facility] ADD ONSpecial Instructions: can use bloo d sample in labSpecial Instructions: can use blood sample in lab ADD ONSpecial Instructions: can use bloo d sample in labSpecial Instructions: can use blood sample in lab Name Value Range Interpretation Code Description Data Evelin rce(s) Supporting Document(s) Magnesium [Mass/volume] in Serum or Plasma 2.0 mg/dL 1.3-2.7 N [facility] ID Date Data Source [id number] 05/29/2020 07:20:00 PM [facility] ADD ONSpecial Instructions: can use bloo d sample in labSpecial Instructions: can use blood sample in lab ADD ONSpecial Instructions: can use bloo d sample in labSpecial Instructions: can use blood sample in lab Name Value Range Interpretation Code Description Data Evelin rce(s) Supporting Document(s) Thyrotropin [Units/volume] in Serum or Plasma by Detec tion limit <= 0.005 mIU/L 2.23 u[iU]/mL 0.35-5.50 [facility] ID Date Data Source [id number] 05/29/2020 05:24:00 PM [facility] Anticoagulant or Thrombolytic medication : Coumadin/WarfarinIs test to R/O PE, DVT or VTE? Y Name Value Range Interpretation Code Description Data Evelin rce(s) Supporting Document(s) Troponin I.cardiac [Mass/volume] in Serum or Plasma 0.061 ng/mL 0.00- 0.09 [facility] Less than 0.09 NG/ML Negative0.10 - 0.77 NG/ML High Risk0.78 NG/ML or Greater PositiveThe WHO defined the cutoff (definition for diagnosis of CA)for this method as 0.78 ng/ml. ID Date Data Source [id number] 05/29/2020 04:56:00 PM [facility] Anticoagulant or Thrombolytic medication : Coumadin/WarfarinIs test to R/O PE, DVT or VTE? Y Name Value Range Interpretation Code Description Data Evelin rce(s) Supporting Document(s) Fibrin D-dimer [Units/volume] in Platelet poor plasma Less Than 0.1 9 0.0-0.50 [facility] @Report as less than 0.19@ Has QC been r un for this test today?PLEASE NOTE: THIS TEST WAS PERFORMED USING A PARTICLE-ENHANCED, IMMUNOTURBIDIMETRIC ASSAY AND HAS A SINGLE,CLINICALLY DERIVED CUTOFF OF 0.50 MG/L. ID Date Data Source [id number] 05/29/2020 05:41:00 PM [facility] THIS RP PANEL TESTS FOR SARS-CoV -2,(COVID-19)FilmArray Respiratory Panel is a Multiplexed NAAT-PCR testNORMAL VALUE FOR ALL 20 PATHOGENS IS "NOT DETECTED".The Film[employer] RP panel detects Influenza A H1,H3 pul5108 H1 viruses,Influenza B virus, Respiratory syncytialvirus, Human [...] CLINICIAN EVALUATING THE PATIENT.THE PERFORMANCE OF THE [employer]wheel[employer] RP HAS NOT BEEN ESTABLISHEDIN INDIVIDUALS WHO [...] rce(s) Supporting Document(s) ID Date Data Source [id number] 05/29/2020 02:52:00 PM EST [place] [facility] [address] [place] [address] [phone] NAME SEX PT STATUS ACCOUNT NUMBER JAGJIT IBARRA [facility] ER [id number] ORDERING PHYSICIAN LOCATION MEDICAL RECORD NO. José Miguel Shannon MD ER [id number] ATTENDING PHYSICIAN DATE OF DATE OF EXAM/TIME [...] Reported By Nestor Knowles MD on 05/29/20 9558 Signed By Nestor Knowles MD on 05/29/201451 Date Time CC: No Family PHYS Provided; Nestor Knowles MD Techn: CUMME Trans Dt/Tm: Trans by: DT Prt Dt/Tm: [id number]: Total DLP = 0.00 mGy-cm Fluoroscopy Time (in secs): Name Value Range Interpretation Code Description Data Evelin rce(s) Supporting Document(s) ID Date Data Source [id number] 05/29/2020 02:40:00 PM [facility] ED Physician Documentation NAME: JAGJIT IBARRA : 1960 AGE: 60 MR#: [id number] SERVICE DATE: 05/29/[address]: José Miguel Shannon MD PRIMARY CARE DR: No Family PHYS Provided ROOM#: [facility] (Adult, General) General Chief Complaint: Cardiovascular [...] % (Auto) 63.5, Lymph % (Auto) 25.6, Citrus % (Auto) 7.0, Eos % (Auto) 1.9, [...] rce(s) Supporting Document(s) ID Date Data Source [id number] 05/29/2020 04:27:00 PM EST [facility] Name Value Range Interpretation Code Description Data Evelin rce(s) Supporting Document(s) Hemoglobin A1c [Mass/volume] in Blood 10.1 % 3.8-5.6 Above hig h normal [facility] @Review & document. @A repeat [...] blood glucose control.* High risk of developing extermination inspector complications such asretinopathy, nephropathy, neuropathy, cardiopathy, etc. Some danger of hypoglycemic reaction in Type I diabetics.Some glucose intolerant individuals and "Sub Clinical"diabetics may demonstrate HGBA1C levels in this area. Glucose mean value [Moles/volume] in Blood Estimated f rom glycated hemoglobin 243 mg/dL [facility] An A1C of 7% - the goal of diabetic ther apy - is equivalentto an EAG of 154 mg/dl. ID Date Data Source [id number] 05/29/2020 02:46:00 PM EST [facility] Name Value Range Interpretation Code Description Data Evelin rce(s) Supporting Document(s) Leukocytes [#/volume] in Blood by Automated count 11.2 10*3/uL 4.45-10.71 Above high normal [facility] Erythrocytes [#/volume] in Blood by Automated count 5.73 10*6/uL 4.3- 6.1 N [facility] Hemoglobin [Moles/volume] in Blood 17.2 g/dL 13-18 N [facility] Hematocrit [Volume Fraction] of Blood by Automated count 49.4 % 4 2-52 N [facility] Erythrocyte mean corpuscular volume [Ent itic volume] in Cord blood by Automated count 86.2 fL 80-96 N [facility] ital Erythrocyte mean corpuscular hemoglobin [Entitic mass] by Automated count 30.0 pg 27-31 N [facility] l Erythrocyte mean corpuscular hemoglobin concentration [Mass/volume] in Cord blood 34.8 g/dL 33-37 N [facility] Erythrocyte distribution width [Entitic volume] by Automated count 12 % 11-15 N [facility] Platelets [#/volume] in Blood by Automated count 239 10*3/uL 130-472 N [facility] Platelet mean volume [Entitic volume] in Blood 10.3 fL 9.1-13.1 N [facility] Neutrophils/100 leukocytes in Blood by Automated count 63.5 % 41- 77 N [facility] Neutrophils [#/volume] in Blood by Automated count 7.1 U 1.7-7.6 N [facility] Lymphocytes/100 leukocytes in Blood by Automated count 25.6 % 14- 46 N [facility] Lymphocytes [#/volume] in Blood by Automated count 2.9 U 0.6-4.6 N [facility] Monocytes/100 leukocytes in Blood by Automated count 7.0 % 4-12 N [facility] Monocytes [#/volume] in Blood by Automated count 0.8 U 0.2-1.2 N [facility] Eosinophils/100 leukocytes in Blood by Automated count 1.9 % 0-7 N [facility] Eosinophils [#/volume] in Blood by Automated count 0.2 U 0.0-0.5 N [facility] Basophils/100 leukocytes in Blood by Automated count 0.8 % 0.4-1 .3 N [facility] Basophils [#/volume] in Blood by Automated count 0.1 U 0.0-0.2 N [facility] NUCLEATED RED BLOOD CELL 0 % [facility] NUCLEATED RED BLOOD CELL# 0 U [facility] Immature granulocytes [Presence] in Blood by Automated count 0-2 N [facility] Immature granulocytes [#/volume] in Blood by Automated count 0.1 U 0-0.1 N [facility] Manual Differential panel - Blood NO [facility] ID Date Data Source [id number] 05/29/2020 03:04:00 PM EST [facility] Name Value Range Interpretation Code Description Data Evelin rce(s) Supporting Document(s) Urea nitrogen [Mass/volume] in Serum or Plasma 22 mg/dL 9-23 N [facility] Sodium [Moles/volume] in Serum or Plasma 137 mmol/L 132-146 N [facility] Potassium [Moles/volume] in Serum or Plasma 5.5 mmol/L 3.5-5.5 [facility] Chloride [Moles/volume] in Serum or Plasma 105 mmol/L 99-109 N [facility] Carbon dioxide, total [Moles/volume] in Serum or Plasma 23 mmol/L 20 -31 N [facility] Anion gap in Serum or Plasma 15 mmol/L 8-16 N [facility] Glucose [Mass/volume] in Serum or Plasma 424 mg/dL 74-106 No range defined, or normal ranges don't apply [facility] @Review test & document. []Called to MARCO ANTONIO Sanz @ [phone] by Sumi Mead. Results readback.Repeated by: Sumi Mead 05/29/20 4500.Result Confirmation: 419 mg/dL Creatinine 1.4 mg/dL 0.5-1.1 Above high normal [facility] Glomerular filtration rate/1.73 sq M.pre dicted [Volume Rate/Area] in Serum or Plasma 52 ml/min ABOVE 60 [facility] ital Alanine aminotransferase [Enzymatic acti vity/volume] in Serum or Plasma by With P-5'-P 51 U/L 10-49 Above high normal [facility] Aspartate aminotransferase [Enzymatic ac tivity/volume] in Serum or Plasma by With P-5'-P 24 U/L 0-33 N [facility] pital Alkaline phosphatase [Enzymatic activity/volume] in Serum or Plasma 93 U/L 45-129 N [facility] Calcium [Mass/volume] in Serum or Plasma 9.2 mg/dL 8.5-10.1 N [facility] Bilirubin.total [Mass/volume] in Serum or Plasma 1.2 mg/dL 0.3-1.2 N [facility] Albumin [Mass/volume] in Serum or Plasma by Bromocresol purple (BCP) dye binding method 3.9 g/dL 3.2-4.8 N [facility] ital Protein [Mass/volume] in Serum or Plasma 7.6 g/dL 5.7-8.2 N [facility] ID Date Data Source [id number] 05/29/2020 03:04:00 PM [facility] Name Value Range Interpretation Code Description Data Evelin rce(s) Supporting Document(s) Creatine kinase [Enzymatic activity/volume] in Serum or Plasma 56 U /L 33-211 N [facility] Creatine kinase.MB [Enzymatic activity/volume] in Serum or P lasma 1.1 ng/mL 0.0-5.0 N [facility] Chemistry studies (set) 1.9 % [facility] ID Date Data Source [id number] 05/29/2020 03:04:00 PM [facility] Name Value Range Interpretation Code Description Data Evelin rce(s) Supporting Document(s) Troponin I.cardiac [Mass/volume] in Serum or Plasma 0.055 ng/mL 0.00- 0.09 [facility] Less than 0.09 NG/ML Negative0.10 - 0.77 NG/ML High Risk0.78 NG/ML or Greater PositiveThe WHO defined the cutoff (definition for diagnosis of CA)for this method as 0.78 ng/ml. ID Date Data Source [id number] 05/29/2020 03:06:00 PM EST [facility] Anticoagulant or Thrombolytic medication : Coumadin/Warfarin Name Value Range Interpretation Code Description Data Evelin rce(s) Supporting Document(s) Prothrombin Time (Patient) 12.6 s 9.6-12.3 Above high normal [facility] INR 1.2 0.9-1.1 Above high normal [facility] THE INR IS OPERATIONALLY DEFINED FOR RIKI SH PLASMA FROMPATIENTS STABILIZED ON ORAL ANTICOAGULANTS.ROUTINE ANTICOAGULANT THERAPY 2.0-3.0RECURRENT SYSTEMIC EMBOLISM/HEART VALVE REPLACEMENT 2.5-3.5 aPTT.lupus sensitive (LA screen) 29.1 s 22.7-31.6 N [facility] ID Date Data Source [id number] 05/29/2020 12:00:00 AM EST [facility] Name Value Range Interpretation Code Description Data Evelin rce(s) Supporting Document(s) SARS-CoV2 Rapid PCR [facility] This lab was ordered by [facility] isabella LEE and reported by [facility]. Procedure Social History Code Duration Value Status Description Data Source(s ) Smoking 01/19/2021 12:00:00 AM EDT Current Smoker completed Curre nt Smoker eCW1 ([facility]) Alcohol intake 07/13/2020 12:00:00 AM EST Current drinker of al cohol (finding) completed Current drinker of alcohol (finding) [facility] Tobacco use and exposure 07/13/2020 12:00:00 AM EST Never used co mpleted Never used [facility] Cigarette pack-years 07/13/2020 12:00:00 AM EST UNK completed [facility] Cigarettes smoked current (pack per day) - Reported 07/13/19 12:00:00 AM EST UNK completed [facility] Smoking 07/13/2020 12:00:00 AM EST Former smoker completed Former smoker [facility] 07/11/2020 03:00:59 PM EST Former smoker completed Former smoker [facility] Smoking 07/11/2020 03:00:00 PM EST Former smoker completed Former smoker [facility] 07/05/2020 04:38:11 PM EST Former smoker completed Former smoker [facility] 07/05/2020 04:38:11 PM EST Former smoker completed Former smoker [facility] Smoking 07/05/2020 04:38:00 PM EST Former smoker completed Former smoker [facility] Smoking 07/05/2020 04:38:00 PM EST Former smoker completed Former smoker [facility] Alcohol intake 06/23/2020 12:00:00 AM EST Yes completed [facility] Cigarettes smoked current (pack per day) - Reported 06/23/19 12:00:00 AM EST UNK completed [facility] Smoking 06/23/2020 12:00:00 AM EST Former smoker completed Former smoker [facility] Alcohol intake 06/20/2020 12:00:00 AM EST Current drinker of al cohol (finding) completed Current drinker of alcohol (finding) [facility] 06/15/2020 07:30:28 AM EST Former smoker completed Former smoker [facility] Smoking 06/15/2020 07:30:00 AM EST Former smoker completed Former smoker [facility] 06/06/2020 08:19:34 PM EST Current every day smoker co mpleted Current every day smoker [facility] Smoking 06/06/2020 08:19:00 PM EST Current every day smoker co mpleted Current every day smoker [facility] 05/31/2020 08:09:42 AM EST Current every day smoker co mpleted Current every day smoker [facility] Smoking 05/31/2020 08:09:00 AM EST Current every day smoker co mpleted Current every day smoker [facility] 05/29/2020 02:46:17 PM EST Current every day smoker co mpleted Current every day smoker [facility] Smoking 05/29/2020 02:46:00 PM EST Current every day smoker co mpleted Current every day smoker [facility] 05/26/2016 12:00:00 AM EST - 05/28/2020 12:00:00 AM EST Cigarette Smoker completed Cigarette Smoker [facility] 05/26/2016 12:00:00 AM EST - 05/28/2020 12:00:00 AM EST Current smoker completed Current smoker [facility] 05/29/2020 12:00:00 AM EST Cigarette Smoker completed Cig arette Smoker [facility] 05/29/2020 12:00:00 AM EST Current smoker completed Curre nt smoker [facility] Vital Signs ID Date Data Source [id number] Name Value Range Interpretation Code Description Data Source(s) Body weight 285 [lb_av] 285 [lb_av] eCW1 ([facility]) Respiratory rate 18 /min 18 /min eCW1 ([facility]) Body temperature 96.6 [degF] 96.6 [degF] eCW1 ( [facility]) Systolic blood pressure 178 mm[Hg] 178 mm[Hg] e CW1 ([facility]) Diastolic blood pressure 88 mm[Hg] 88 mm[Hg] eCW1 ([facility]) Body weight 129.28 kg 129.28 kg eCW1 ([facility]) Body height 72 [in_i] 72 [in_i] eCW1 ([facility]) Body mass index (BMI) [Ratio] 38.65 kg/m2 38.65 kg/m2 W1 ([facility]) Heart rate 69 /min 69 /min eCW1 ([facility]) Oxygen saturation in Arterial blood by Pulse oximetry 80 % 80 % [facility] Heart rate 77 /min 77 /min [facility] Respiratory rate 15 /min 15 /min [facility] Systolic blood pressure 139 mm[Hg] 139 mm[Hg] M [facility] Diastolic blood pressure 74 mm[Hg] 74 mm[Hg] [facility] Body temperature 35.44 Bernadette 35.44 Bernadette [facility] Body height 182.9 cm 182.9 cm [facility] Body weight 128.9 kg 128.9 kg [facility] Body mass index (BMI) [Ratio] 38.53 kg/m2 38.53 kg/m2 [facility] Systolic blood pressure 134 mm[Hg] 134 mm[Hg] S [facility] Diastolic blood pressure 84 mm[Hg] 84 mm[Hg] [facility] Heart rate 65 /min 65 /min [facility] Body temperature 36.61 Bernadette 36.61 Bernadette [facility] Oxygen saturation in Arterial blood by Pulse oximetry 97 % 97 % [facility] Respiratory rate 14 /min 14 /min [facility] Body weight 127.914 kg 127.914 kg [facility] Body mass index (BMI) [Ratio] 38.25 kg/m2 38.25 kg/m2 [facility] Systolic blood pressure 159 mm[Hg] 159 mm[Hg] [facility] Diastolic blood pressure 88 mm[Hg] 88 mm[Hg] [facility] Heart rate 72 /min 72 /min [facility] Body temperature 36.5 Bernadette 36.5 Bernadette [facility] Respiratory rate 18 /min 18 /min [facility] Oxygen saturation in Arterial blood by Pulse oximetry 97 % 97 % [facility] Body height 182.9 cm 182.9 cm [facility] Body weight 127.914 kg 127.914 kg [facility] Body mass index (BMI) [Ratio] 38.25 kg/m2 38.25 kg/m2 [facility] Heart rate 80 /min 80 /min [facility] ([facility] Body height 72 [in_i] 72 [in_i] [facility] ([facility]) 6'0" Body weight 282.00 [lb_av] 282.00 [lb_av] MEDEN T ([facility]) Body mass index (BMI) [Ratio] 38.2 kg/m2 38.2 k g/m2 [facility] ([facility]) Systolic blood pressure 120 mm[Hg] 120 mm[Hg] M EDENT ([facility]) Diastolic blood pressure 80 mm[Hg] 80 mm[Hg] [facility] ([facility]) Patient Treatment Plan of Care Planned Activity Planned Date Details Description Data Source (s) Amlodipine 10 MG Oral Tablet 07/15/2020 12:00:00 AM [facility] Lisinopril 40 MG Oral Tablet 07/15/2020 12:00:00 AM [facility] Hydralazine Hydrochloride 50 MG Oral Tablet 07/14/2020 12:00:00 AM [facility] apixaban 5 MG Oral Tablet 07/14/2020 12:00:00 AM [facility] 3 ML insulin detemir 100 UNT/ML Pen Injector 07/14/2020 12:00:00 AM [facility] 3 ML Insulin, Aspart, Human 100 UNT/ML Pen Injector 07/14/19 12:00:00 AM [facility] aripiprazole 5 MG Oral Tablet 06/24/2020 12:00:00 AM [facility] Lisinopril 10 MG Oral Tablet 06/22/2020 12:00:00 AM [facility] sodium chloride 0.9% solution 06/21/2020 12:00:00 AM [facility] sodium chloride 0.9 % injection 06/21/2020 12:00:00 AM [facility] sodium chloride 0.9 % injection 06/21/2020 12:00:00 AM [facility] Menthol 100 MG/ML / methyl salicylate 150 MG/ML Topica l Cream 06/21/2020 12:00:00 AM [facility] 3 ML insulin detemir 100 UNT/ML Pen Injector 06/21/2020 12:00:00 AM [facility] lidocaine (XYLOCAINE) 10 mg/mL (1 %) injection 06/21/2020 12:00:00 AM [facility] 3 ML Insulin, Aspart, Human 100 UNT/ML Pen Injector 06/21/19 12:00:00 AM [facility] 3 ML Insulin, Aspart, Human 100 UNT/ML Pen Injector 06/21/19 12:00:00 AM [facility] sodium chloride 0.9 % injection 06/21/2020 12:00:00 AM [facility] heparin sodium, porcine 10 UNT/ML Prefilled Syringe 06/21/19 12:00:00 AM [facility] heparin sodium, porcine 10 UNT/ML Prefilled Syringe 06/21/19 12:00:00 AM [facility] Glucose 0.4 MG/MG Oral Gel 06/21/2020 12:00:00 AM [facility] Glucagon 1 MG Injection 06/21/2020 12:00:00 AM [facility] Famotidine 20 MG Oral Tablet 06/21/2020 12:00:00 AM [facility] Cefazolin 2000 MG Injection 06/21/2020 12:00:00 AM [facility] Capsaicin 0.25 MG/ML Topical Cream 06/21/2020 12:00:00 AM [facility] alteplase (CATHFLO ACTIVASE) 2 mg injection 06/21/2020 12:00:00 AM [facility] Ondansetron 4 MG Disintegrating Oral Tablet 06/21/2020 12:00:00 AM [facility] Docusate Sodium 100 MG Oral Capsule 06/21/2020 12:00:00 AM [facility] Acetaminophen 325 MG Oral Tablet 06/21/2020 12:00:00 AM [facility] Warfarin Sodium 5 MG Oral Tablet 07/09/2019 12:00:00 AM [facility] MELATONIN PO [facility] aripiprazole 10 MG Oral Tablet [facility] apixaban 5 MG Oral Tablet [facility] Metformin hydrochloride 1000 MG Oral Tablet [facility]
[2021-03-26] MEDS ORDERED: ISOVUE-370 76% 100ML VIAL As Ordered ONE (21:55)
--- NOTE | 2021-03-26 21:57 | REPVR ---
PROCEDURE INFORMATION: Exam: XR Chest Exam date and time: 03/26/21 (8:21pm) Age: 60 years old Clinical indication: Chest pain TECHNIQUE: Imaging protocol: Portable CXR Views: 1 view COMPARISON: CT CHEST of 01/09/19 FINDINGS: Lungs: Unremarkable. No consolidation. Pleural spaces: Unremarkable. No pleural effusions. No pneumothorax. Heart/Mediastinum: Unremarkable. No cardiomegaly. Bones/joints: Scattered degenerative thoracic spine changes. IMPRESSION: No acute findings. Electronically signed by: Ana María Krishnamurthy On 03/26/2021 21:57:19 PM
[2021-03-26] MEDS ORDERED: GI COCKTAIL 50ML BTL(HYOSCYAMINE/MAALOX/LIDOCAINE VISCOUS)(1:3:1) PO ONE (22:25)
--- NOTE | 2021-03-26 22:42 | REPVR ---
PROCEDURE INFORMATION: Exam: CTA Chest with Contrast Exam date and time: 03/26/2021 (10:06pm) Age: 60 years old Clinical indication: Angina pectoris. Evaluate for thoracic aortic aneurysm. TECHNIQUE: Imaging protocol: Computed tomographic angiography of the chest with contrast 3D rendering (Not supervised by radiologist): MIP and/or 3D reconstructed images were created by the technologist. Radiation optimization: All CT scans at this facility use at least one of these dose optimization techniques: automated exposure control; mA and/or kV adjustment per patient size (includes targeted exams where dose is matched to clinical indication); or iterative reconstruction. Contrast material: Isovue 370 Contrast volume: 75 ml Contrast route: IV COMPARISON: CT CHEST of 01/09/19 FINDINGS: Pulmonary arteries: Unremarkable. No major nor central pulmonary emboli. Aorta: Unremarkable. No aortic aneurysm. No aortic dissection. Lungs: Unremarkable. No consolidation. No masses. Pleural spaces: Unremarkable. No pneumothorax. No pleural effusions. Heart: Unremarkable. No cardiomegaly. No pericardial effusion. Lymph nodes: Unremarkable. No enlarged lymph nodes. Bones/joints: No acute fracture. Degenerative thoracic spine changes. Soft tissues: Unremarkable. IMPRESSION: No acute findings. No focal infiltrates. The thoracic aorta is unremarkable. No aortic aneurysm is seen. Electronically signed by: Ana María Krishnamurthy On 03/26/2021 22:41:50 PM
[2021-03-26] MEDS ORDERED: hydrALAZINE 20MG/ML 1ML VIAL (J0360 PER 20MG) IV ONE (22:50)
--- OUTSIDE RECORDS SUMMARY | 2021-03-26 23:37 | CCD ---
Author Author [facility] Organization [facility] Address Unknown Phone Unavailable Care Team Providers Care Accounts Payable Lead Name Role Phone Rolan COTA MD Unavailable [...] MD Unavailable Unavailable KELBERMANAugust MD Unavailable Unavailable KELBERMANuAgust MD Unavailable Unavailable KELBERMANAugust MD Unavailable Unavailable [...] Mustizer, E Nicolle PA Unavailable Unavailable [facility], [place] [facility] Unavailable Unavailable Rolan ROCKWELL MD Unavailable Unavailable Rolan ROCKWELL MD Unavailable Unavailable Rolan ROCKWELL MD Unavailable Unavailable Rolan ROCKWELL MD Unavailable Unavailable Rolan ROCKWELL MD Unavailable Unavailable Rolan ROCKWELL MD Unavailable Unavailable Rolan ROCKWELL MD Unavailable Unavailable Rolan ROCKWELL MD Unavailable Unavailable Rolan ROCKWELL MD Unavailable Unavailable Rolan ROCKWELL MD Unavailable Unavailable Rolan ROCKWELL MD Unavailable Unavailable Rloan ROCKWELL MD Unavailable Unavailable Rolan ROCKWELL MD Unavailable Unavailable Rolan ROCKWELL MD Unavailable Unavailable Rolan ROCKWELL MD Unavailable Unavailable Rolan ROCKWELL MD Unavailable Unavailable Rolan ROCKWELL MD Unavailable Unavailable Rolan ROCKWELL MD Unavailable Unavailable Rolan ROCWKELL MD Unavailable Unavailable Rolan ROCKWELL MD Unavailable [...] Unavailable Unavailable Arline Flores MD Unavailable Unavailable Alrine Flores MD Unavailable Unavailable Arline Flores MD [...] Unavailable BIJUASSPRICILA AMBRIZ MD Unavailable Unavailable NAMASSPRICILA AMRBIZ MD Unavailable Unavailable BIJUASSPRICILA AMBRIZ MD Unavailable [...] NAMASSIVAYA, DALTONAYANI MD Unavailable Unavailable YAHIR, ATULBHAI EVANGELICAL Unavailable Unavailable AYHIR, ATULBHAI EVANGELICAL Unavailable Unavailable YAHIR, ATULBHAI EVANGELICAL Unavailable Unavailable YAHIR, ATULBHAI EVANGELICAL Unavailable Unavailable YAHIR, ATULBHAI EVANGELICAL Unavailable Unavailable YAHIR, ATULBHAI EVANGELICAL Unavailable Unavailable YAHIR, ATULBHAI EVANGELICAL Unavailable Unavailable YAHIR, ATULBHAI EVANGELICAL Unavailable Unavailable YAHIR, ATULBHAI EVANGELICAL Unavailable Unavailable YAHIR, ATULBHAI EVANGELICAL Unavailable Unavailable YAHIR, ATULBHAI EVANGELICAL Unavailable Unavailable YAHIR, ATULBHAI EVANGELICAL Unavailable Unavailable YAHIR, ATULBHAI EVANGELICAL Unavailable Unavailable YAHIR, ATULBHAI EVANGELICAL Unavailable Unavailable YAHIR, ATULBHAI EVANGELICAL Unavailable Unavailable YAHIR, ATULBHAI EVANGELICAL Unavailable Unavailable YAHIR, ATULBHAI EVANGELICAL Unavailable Unavailable YAHIR, ATULBHAI EVANGELICAL Unavailable Unavailable YAHIR, ATULBHAI EVANGELICAL Unavailable Unavailable YAHIR, ATULBHAI EVANGELICAL Unavailable Unavailable YAHIR, ATULBHAI EVANGELICAL Unavailable Unavailable YAHIR, ATULBHAI EVANGELICAL Unavailable Unavailable YAHIR, ATULBHAI EVANGELICAL Unavailable Unavailable Ez MOON MD Unavailable Unavailable [...] Unavailable Unavailable PARK ROCHA MD Unavailable Unavailable HUNGARIAN, PARK PETERSON Unavailable Unavailable HUNGARIAN, PARK PETERSON Unavailable Unavailable Greta Nicholsh PA-C [...] is protected by Article 27-F of the [facility] Public Health law. If you continue you may have access to information: Regarding HIV / AIDS; Provided by facilities licensed or operated by the [facility] Office of Mental Health; or Provided by the [facility] Office for People With Developmental Disabilities. If such information is present, then the following [facility] mandated warning applies: This information has [...] law may result in a fine or custodial sentence or both. A general authorization for the release of medical or other information is NOT sufficient authorization for further disc losure. Allergies and Adverse Reactions Type Description Substance Reaction Status Data Source(s ) No Known Environmental Allergies No Known Environmental Al lergies [facility] No Known Food Allergies No Known Food Allergies [facility] Propensity to adverse reactions PROCARDIA PROCARDIA sores in mouth [facility] Drug allergy CYCLOBENZAPRINE CYCLOBENZAPRINE AGGITATED, ANXIETY [facility] Drug allergy PROCHLORPERAZINE PROCHLORPERAZINE AGGITATED, ANXIETY [facility] Drug allergy cyclobenzaprine cyclobenzaprine Anxiety [facility] Drug allergy prochlorperazine prochlorperazine Anxiety [facility] Drug allergy nifedipine nifedipine Taste Changes [facility] Propensity to adverse reactions NO ALLERGIES ON FILE NO ALLERGIES ON FILE [facility] Propensity to adverse reactions PROCHLORPERAZINE Prochlorperazine A nxiety Low [facility] Family History Family Member Name Family Member Gender Family Member Status Date o f Status Description Data Source(s) Unknown Condition [facility] Unknown Condition [facility] Unknown Condition [facility] Unknown Condition [facility] Unknown Condition [facility] Unknown Condition [facility] Encounters Encounter Providers Location Date Indications Data Source(s ) Emergency Attender: BANG GRA[facility]ultant[facility]19[facility]21 07:03:00 AM EDT - 02/19/2021 10:57:00 AM EDT [facility] Patient discharged. Outpatient [id number] [facility] [id number] 01/19/2021 12:00:00 AM EDT eCW1 ([facility]) Unknown [id number] [facility] [id number] 10/26/2020 12:00:00 AM EDT eCW1 ([facility]) Outpatient Attender: Marvin CLEMENT 10/24/19 10:58:44 AM EDT - 10/23/2020 11:26:27 AM EDT [facility] ([facility] ) INPATIENT Attender: Ileana Ledesma Mark MDAt tender: MICHELLE KEYS MDAttender: MARCK MCDONALD DOAdmitter: MARCK MCDONALD DOConsultant: Ihsan FrancoinerConsultant: PRICILA CISNEROS MDConsultant: JAMES MOON MDConsultant: LATOSHA CHRISTOPHER MDConsultant: Yann Flores MD 2E-IC 07/11/2020 06:20:00 PM ES T - 07/15/2020 11:44:[address] [facility] Patient discharged. Emergency Attender: Mika Shaffer MD 06/26 02:17:00 PM EST - 07/11/2020 04:56:00 PM EST UNCONSCIOUS [facility] UNCONSCIOUS Patient discharged. Outpatient Attender: Jd Lal MDReferrer: Jd Lal MD 07/10/2020 12:48:00 PM EST - 07/10/2020 02:05:00 PM EST [facility] Outpatient Attender: MADAI EDWARDS MD 07/10/2020 08:47:00 AM EST ? BONE INFECTION [facility] ? BONE INFECTION Emergency Attender: WHIT COTA MD 06/26 03:42:00 PM EST - 07/05/2020 07:41:00 PM EST CHEST PAIN [facility] l CHEST PAIN Patient discharged. Inpatient Admitter: Maury Treviño MDReferrer: CARMINA Swain [id number] 06/22/2020 12:47:57 PM EST [facility] Inpatient Attender: Kathryn connell MDAttender: PARK ROCHA MDAttender: Maury Treviño MDAdmitter: Maury Treviño MDConsultant: Elisa Zuniga MD [id number] 06/21/2020 02:44:36 PM EST - 06/23/2020 03:55:00 PM EST [facility] Patient discharged. INPATIENT Attender: MICHELLE KEYS MD Attender: Laura Sethi MDAttender: LOYD SAUCEDO MDAdmitter: Laura Sethi MDConsultant: PRICILA CISNEROS MDConsultant: DARCY ROCKWELL MD 2E-2C 06/16/2020 11:42:00 AM EST - 06/21/2020 01:30:[address] [facility] Patient discharged. Outpatient 2E-MAPA 06/09/2020 08:45:48 AM EST - 021 11:59:[address] [facility] Patient discharged. 2E-CCL 06/09/2020 07:35:43 AM [facility] Inpatient Attender: Isaías Nichols PA-C Attender: Chilo [...] - 06/16/2020 10:05:00 AM EST CHEST PAIN [facility] CHEST PAIN Patient discharged. Outpatient Attender: Tremaine Ledesma MD [facility] 05/26 01:45:00 PM EST [facility] ([facility]) Inpatient Attender: CHRISTO Encinas nder: JOSÉ MIGUEL SHANNON MDAdmitter: CHRISTO LLAMAS MDConsultant: [facility] 05/29/2020 05:39:00 PM EST - 05/31/2020 02:15:00 PM EST AFIB WITH RVR [facility] l AFIB WITH RVR Patient [...] by mouth 1 (one) time each day. [facility] Lisinopril 40 MG Oral Tablet lisinopriL (PRINIVIL) 40 mg tablet lisinopriL (PRINIVIL) 40 mg tablet 07/15/2020 12:00:00 AM EST 40 mg oral active Take 1 tablet (40 mg total) by mouth 1 (one) time each day. [facility] apixaban 5 MG Oral Tablet apixaban (ELIQUIS) 5 mg tabl et apixaban (ELIQUIS) 5 mg tablet 07/14/2020 12:00:00 AM EST 5 mg oral activ e deep venous thrombosis Take 1 tablet (5 mg total) by mouth 2 (two) times a da y. [facility] deep venous thrombosis Hydralazine Hydrochloride 50 MG Oral Tab let hydrALAZINE (APRESOLINE) 50 mg tablet hydrALAZINE (APRESOLINE) 50 mg tablet 07/14/2020 12:00:00 AM EST 50 mg oral active Take 1 tablet (50 mg total) by mouth 3 (three) times a day. [facility] 3 ML Insulin, Aspart, Human 100 UNT/ML P en Injector insulin aspart (NovoLOG) 100 unit/mL (3 mL) injection insulin aspart (NovoLOG) 100 unit/mL (3 mL) injection 07/14/2020 12:00:00 AM EST 10 U subcutaneous active Inject 10 Units under the skin 3 (three) times a day with meals. [facility] 3 ML insulin detemir 100 UNT/ML Pen Inje ctor insulin detemir (LEVEMIR) 100 unit/mL (3 mL) injection insulin detemir (LEVEMIR) 100 unit/mL (3 mL) injection 07/14/2020 12:00:00 AM EST 30 U subcutaneous active Inject 30 Units under the skin 1 (one) time each day at night. [facility] Lisinopril 40 MG Oral Tablet Lisinopril 07/10/2020 12:47:22 PM EST 40 MG active [facility] Lisinopril 40 MG Oral Tablet Lisinopril 07/10/2020 12:47:22 PM EST 40 MG active [facility] Hydralazine Hydrochloride 10 MG Oral Tablet Hydralazine 07/10/2020 12:46:54 PM EST 10 MG active [facility] Hydralazine Hydrochloride 10 MG Oral Tablet Hydralazine 07/10/2020 12:46:54 PM EST 10 MG active [facility] Famotidine 20 MG Oral Tablet Famotidine 07/10/2020 12:46:03 PM EST 20 MG active [facility] Famotidine 20 MG Oral Tablet Famotidine 07/10/2020 12:46:03 PM EST 20 MG active [facility] atorvastatin 40 MG Oral Tablet Atorvastatin Atorvastatin 07/10/2020 12:45:32 PM EST 40 MG active [facility] atorvastatin 40 MG Oral Tablet Atorvastatin Atorvastatin 07/10/2020 12:45:32 PM EST 40 MG active [facility] apixaban 5 MG Oral Tablet Apixaban (Eliquis) 5 mg tabl et Apixaban (Eliquis) 5 mg tablet 07/10/2020 12:44:59 PM EST 5 MG active [facility] apixaban 5 MG Oral Tablet Apixaban (Eliquis) 5 mg tabl et Apixaban (Eliquis) 5 mg tablet 07/10/2020 12:44:59 PM EST 5 MG active [facility] Insulin Lispro 07/10/2020 12:44:50 PM EST act [facility] Insulin Lispro 07/10/2020 12:44:50 PM EST act [facility] 3 ML Insulin Glargine 100 UNT/ML Pen Inj danuta Insulin Glargine (Lantus Solostar U-100 Insulin) 100 unit/mL (3 mL) insulin pen Insulin Glargine (Lantus Solostar U-100 Insulin) 100 unit/mL (3 mL) insulin pen 07/10/2020 12:44:31 PM EST active [facility] 3 ML Insulin Glargine 100 UNT/ML Pen Inj danuta Insulin Glargine (Lantus Solostar U-100 Insulin) 100 unit/mL (3 mL) insulin pen Insulin Glargine (Lantus Solostar U-100 Insulin) 100 unit/mL (3 mL) insulin pen 07/10/2020 12:44:31 PM EST active [facility] aripiprazole 5 MG Oral Tablet ARIPiprazole (ABILIFY) 5 MG tablet ARIPiprazole (ABILIFY) 5 MG tablet 06/24/2020 12:00:00 AM EST 5 mg Oral active Take 1 tablet (5 mg total) by mouth daily [facility] Insulin Glargine 100 UNT/ML Injectable S [...] to 200 mg/dl &nb sp; No Change
[facility] Medication administered onsite Acetaminophen 325 MG / Oxycodone Hydroch loride 5 MG Oral Tablet oxyCODONE- acetaminophen (PERCOCET) 5-325 MG 1 tablet oxyCODONE-acetaminophen (PERCOCET) 5- 325 MG 1 tablet 06/22/2020 04:25:11 PM EST 1 {tbl} Oral a ctive 1 tablet, Oral, Every 4 hours PRN, severe pain (7-10), moderate pain (4-6), Starting Cassidy 06/22/20 at 1625, For 2 days [facility] Medication administered onsite Calcium Chloride 0.0014 MEQ/ML / Potassi um Chloride 0.004 MEQ/ML / Sodium Chloride 0.103 MEQ/ML / Sodium Lactate 0.028 MEQ/ML Injectable Solution lactated ringers infusion lactated ringers infusion 06/22/2020 03:00:00 PM EST 125 mL/h Intravenous active at 125 m L/hr, 125 mL/hr, Intravenous, Continuous, Starting Cassidy 06/22/20 at 1500, PACU (only) [facility] Medication administered onsite Aspirin 81 MG Chewable Tablet aspirin chewable tablet 81 mg aspirin chewable tablet 81 mg 06/22/2020 09:00:00 AM EST 81 mg Oral activ e 81 mg, Oral, Daily, First dose on Cassidy 06/22/20 at 0900 [facility] Medication administered onsite aripiprazole 5 MG Oral Tablet ARIPiprazole (ABILIFY) t ablet 5 mg ARIPiprazole (ABILIFY) tablet 5 mg 06/22/2020 09:00:00 AM EST 5 mg Oral active 5 mg, Oral, Daily, First dose on Cassidy 06/22/20 at 0900 [facility] Medication administered onsite Fluoxetine 20 MG Oral Capsule FLUoxetine (PROzac) caps ule 40 mg FLUoxetine (PROzac) capsule 40 mg 06/22/2020 09:00:00 AM EST 40 mg Oral active 40 mg, Oral, Daily, First dose on Cassidy 06/22/20 at 0900 [facility] Medication administered onsite Lisinopril 20 MG Oral Tablet lisinopril (PRINIVIL,ZEST RIL) tablet 10 mg lisinopril (PRINIVIL,ZESTRIL) tablet 10 mg 06/22/2020 09:00:00 AM EST 10 mg Oral active 10 mg, Oral, Daily, First dose on Cassidy 06/22/20 at 0900 [facility] Medication administered onsite gabapentin 600 MG Oral Tablet gabapentin (NEURONTIN) t ablet 600 mg gabapentin (NEURONTIN) tablet 600 mg 06/22/2020 03:00:00 AM EST 600 mg Oral completed 600 mg, Oral, 3 times daily, Fir st dose on Cassidy 06/22/20 at 0300, For 1 dose [facility] Medication administered onsite Lisinopril 10 MG Oral Tablet lisinopriL (PRINIVIL) 10 mg tablet lisinopriL (PRINIVIL) 10 mg tablet 06/22/2020 12:00:00 AM EST 10 mg oral aborted Take 1 tablet (10 mg total) by mouth 1 (one) time each day. [facility] normal saline flush 0.9 % injection 3 mL [id number] 06/21/2020 10:00:00 PM EST 3 mL Intravenous active 3 mL , Intravenous, PROTOCOL, First dose on Fri06/21/20 at 2200
flush per protocol, D/C Main IV fluid if appropriate
[facility] Medication administered onsite atorvastatin 40 MG Oral Tablet atorvastatin (LIPITOR) tablet 40 mg atorvastatin (LIPITOR) tablet 40 mg 06/21/2020 09:00:00 PM EST 40 mg Oral active 40 mg, Oral, Nightly, First dose on Fri06/21/20 at 2100 [facility] Medication administered onsite Famotidine 20 MG Oral Tablet famotidine (PEPCID) table t 20 mg famotidine (PEPCID) tablet 20 mg 06/21/2020 09:00:00 PM EST 20 mg Oral active 20 mg, Oral, 2 times daily, First dose on Fri06/21/20 at 2100 [facility] Medication administered onsite carvedilol 25 MG Oral Tablet carvedilol (COREG) tablet 25 mg carvedilol (COREG) tablet 25 mg 06/21/2020 09:00:00 PM EST 25 mg Oral activ e 25 mg, Oral, 2 times daily, First dose on Fri06/21/20 at 2099 [facility] Medication administered onsite Amiodarone hydrochloride 200 MG Oral Tablet amiodarone (PACERONE) tablet 200 mg amiodarone (PACERONE) tablet 200 mg 06/21/2020 09:00:00 PM EST 200 mg Oral active 200 mg, Oral, 2 times daily, First dose on Fri06/21/20 at 2099 [facility] Medication administered onsite Insulin Lispro 100 [...] cover POC glucose at 08:00, 12:00, 17:00.
[facility] Medication administered onsite 0.4 ML Enoxaparin [...] not give the dose and call physician/designee.
[facility] Medication administered onsite cefazolin (ANCEF) injection 2 g 06/21/2020 07:00:00 PM EST 2 g Intravenous active Bacteremia 2 g, Intravenou s, Administer over 6 Minutes, Every 8 hours (relative), First dose on Fri06/21/20 at 1900
RN may administer IV push or infuse this medication through syringe adapter set ref [id number]. Flush line after use
[facility] Bacteremia Medication administered onsite Folic Acid 1 MG Oral Tablet folic acid (FOLVITE) table t 1 mg folic acid (FOLVITE) tablet 1 mg 06/21/2020 06:00:00 PM EST 1 mg Oral active 1 mg, Oral, Daily, First dose on Fri06/21/20 at 1800 [facility] Medication administered onsite normal saline flush 0.9 % injection 3 mL [id number] 06/21/2020 06:00:00 PM EST 3 mL Intravenous active 3 mL , Intravenous, Every 8 hours (scheduled), First dose on Fri06/21/20 at 1800
flush per protocol, D/C Main IV fluid if appropriate
[facility] Medication administered onsite Acetaminophen 325 MG Oral Tablet acetaminophen (TYLENO L) 325 MG tablet 650 mg acetaminophen (TYLENOL) 325 MG tablet 650 mg 06/21/2020 05:23:27 PM EST 650 mg Oral active 650 mg, Or al, Every 6 hours PRN, mild pain (1-3), Starting Fri06/21/20 at 1723 [facility] Medication administered onsite 3 ML insulin detemir 100 UNT/ML Pen Inje ctor insulin detemir (LEVEMIR) 100 unit/mL (3 mL) injection insulin detemir (LEVEMIR) 100 unit/mL (3 mL) injection 06/21/2020 12:00:00 AM EST 20 U subcutaneous aborted Inject 20 Units under the skin 1 (one) time each day at night. [facility] Ondansetron 4 MG Disintegrating Oral Tab let ondansetron (ZOFRAN-ODT) 4 mg dispersible tablet ondansetron (ZOFRAN-ODT) 4 mg dispersible tablet 06/21 12:00:00 AM EST 4 mg oral active Take 1 tablet (4 mg total) by mouth every 6 (six) hours if needed for nausea or vomiting for up to [address] [facility] Menthol 100 MG/ML / methyl salicylate 15 0 MG/ML Topical Cream methyl salicylate- menthol 15-10 % greaseless cream methyl salicylate-menthol 15-10 % grease less cream 06/21/2020 12:00:00 AM EST 1 {application} topical a ctive Apply 1 application topically 4 (four) times a day if needed for muscle/joint pain. [facility] sodium chloride 0.9 % injection [id number] 06/21/2020 12:00:00 AM ES T 20 mL intravenous aborted Infuse 20 mL into a venous catheter if needed for line care (flush 20 mL IV after blood draws, blood product administration, TPN, precipitates, and viscous solutions). [facility] sodium chloride 0.9 % injection [id number] 06/21/2020 12:00:00 AM ES T 10 mL intravenous aborted Infuse 10 mL into a venous catheter every 8 (eight) hours. [facility] sodium chloride 0.9% solution [id number] 06/21/2020 12:00:00 AM EST 50 mL/h intravenous aborted Infuse 50 mL/ hr into a venous catheter continuously. [facility] Capsaicin 0.25 MG/ML Topical Cream capsaicin (ZOSTRIX) 0.025 % cream capsaicin (ZOSTRIX) 0.025 % cream 06/21/2020 12:00:00 AM EST topical active Apply topically 2 (two) times a day. [facility] alteplase (CATHFLO ACTIVASE) 2 mg injection [id number] 06/21/2020 12:00:00 AM EST 2 mg Intracatheter active 2 mL ( 2 mg total) by Intracatheter route if needed (may repeat x 1. follow catheter clearance policy.). [facility] Cefazolin 2000 MG Injection ceFAZolin (ANCEF) IVPB ceFAZolin (ANCEF) IVPB 06/21/2020 12:00:00 AM EST 2 g intravenous active Infuse 100 mL (2 g total) into a venous catheter every 8 (eight) hours. [facility] Famotidine 20 MG Oral Tablet famotidine (PEPCID) 20 mg tablet famotidine (PEPCID) 20 mg tablet 06/21/2020 12:00:00 AM EST 20 mg oral aborted Take 1 tablet (20 mg total) by mouth 2 (two) times a day. [facility] Docusate Sodium 100 MG Oral Capsule docusate sodium (C OLACE) 100 mg capsule docusate sodium (COLACE) 100 mg capsule 06/21/2020 12:00:00 AM EST 100 mg oral active Take 1 capsule (100 mg total) by mouth 2 (two) times a day if needed for constipation for up to [address] [facility] Glucose 0.4 MG/MG Oral Gel glucose (GLUTOSE) 40% gel glucose (GLUTOSE) 40% gel 06/21/2020 12:00:00 AM EST g oral aborted Take 37.5-75 mL (15-30 g total) by mouth if needed for low blood sugar (hypoglycemia treatment protocol). [facility] Glucagon 1 MG Injection glucagon, human recombinant, 1 mg/mL injection glucagon, human recombinant, 1 mg/mL injection 06/21/2020 12:00:00 AM EST 1 mg intramuscular aborted Inject 1 mg into the shoulder, thigh, or buttocks if needed (hypoglycemia treatment panel). [facility] heparin sodium, porcine 10 UNT/ML Prefil led Syringe heparin flush 10 unit/mL injection heparin flush 10 unit/mL injection 06/21/2020 12:00:00 AM EST U intravenous active Infuse 3-9 mL (30-90 Units total) into a venous catheter every 8 (eight) hours. [facility] heparin sodium, porcine 10 UNT/ML Prefil led Syringe heparin flush 10 unit/mL injection heparin flush 10 unit/mL injection 06/21/2020 12:00:00 AM EST 30 U intravenous active Infuse 3 mL ( 30 Units total) into a venous catheter if needed for line care (after each use). [facility] 3 ML Insulin, Aspart, Human 100 UNT/ML P en Injector insulin aspart (NovoLOG) 100 unit/mL (3 mL) injection insulin aspart (NovoLOG) 100 unit/mL (3 mL) injection 06/21/2020 12:00:00 AM EST U subcutaneous aborted Inject 0-10 Units under the skin 4 (four) times a day (before meals and nightly). [facility] sodium chloride 0.9 % injection [id number] 06/21/2020 12:00:00 AM ES T 3 mL intravenous aborted Infuse 3 mL i nto a venous catheter every 8 (eight) hours if needed for line care. [facility] Acetaminophen 325 MG Oral Tablet acetaminophen (TYLENO L) 325 mg tablet acetaminophen (TYLENOL) 325 mg tablet 06/21/2020 12:00:00 AM EST 65 0 mg oral active Take 2 tablets (650 mg total) by mouth every 4 (four) hours if needed for mild pain for up to [address] [facility] lidocaine (XYLOCAINE) 10 mg/mL (1 %) injection [id number] 06/21/2020 12:00:00 AM EST mg infiltration active 1-5 mL (10-50 mg total) by infiltration route 1 (one) time if needed (during PICC insertion) for up to [address] [facility] 3 ML Insulin, Aspart, Human 100 UNT/ML P en Injector insulin aspart (NovoLOG) 100 unit/mL (3 mL) injection insulin aspart (NovoLOG) 100 unit/mL (3 mL) injection 06/21/2020 12:00:00 AM EST 8 U subcutaneous aborted Inject 8 Units under the skin 3 (three) times a day with meals. [facility] Pen Needle, Diabetic (Bd Ultra-Fine Orig Pen Needle) 29 gaug e x 1/2" needle 06/01/2020 09:23:31 AM EST 0 active [facility] Pen Needle, Diabetic (Bd Ultra-Fine Orig Pen Needle) 29 gaug e x 1/2" needle 06/01/2020 09:23:31 AM EST 0 active [facility] Pen Needle, Diabetic (Bd Ultra-Fine Orig Pen Needle) 29 gaug e x 1/2" needle 06/01/2020 09:23:31 AM EST 0 active [facility] Pen Needle, Diabetic (Bd Ultra-Fine Orig Pen Needle) 29 gaug e x /2" needle 06/01/2020 09:23:31 AM EST 0 active [facility] Pen Needle, Diabetic (Bd Ultra-Fine Orig Pen Needle) 29 gaug e x /2" needle 06/01/2020 09:23:31 AM EST 0 active [facility] Amiodarone hydrochloride 200 MG Oral Tablet Amiodarone 05/31/2020 08:11:58 AM EST 200 MG active [facility] Amiodarone hydrochloride 200 MG Oral Tablet Amiodarone 05/31/2020 08:11:58 AM EST 200 MG active [facility] Amiodarone hydrochloride 200 MG Oral Tablet Amiodarone 05/31/2020 08:11:58 AM EST 200 MG active [facility] Amiodarone hydrochloride 200 MG Oral Tablet Amiodarone 05/31/2020 08:11:58 AM EST 200 MG active [facility] Amiodarone hydrochloride 200 MG Oral Tablet Amiodarone 05/31/2020 08:11:58 AM EST 200 MG active [facility] Amiodarone hydrochloride 200 MG Oral Tablet Amiodarone 05/31/2020 08:11:58 AM EST 200 MG active [facility] Amiodarone hydrochloride 200 MG Oral Tablet Amiodarone 05/31/2020 08:09:50 AM EST 400 MG active [facility] Amiodarone hydrochloride 200 MG Oral Tablet Amiodarone 05/31/2020 08:09:50 AM EST 400 MG active [facility] Amiodarone hydrochloride 200 MG Oral Tablet Amiodarone 05/31/2020 08:09:50 AM EST 400 MG completed [facility] Amiodarone hydrochloride 200 MG Oral Tablet Amiodarone 05/31/2020 08:09:50 AM EST 400 MG active [facility] Amiodarone hydrochloride 200 MG Oral Tablet Amiodarone 05/31/2020 08:09:50 AM EST 400 MG completed [facility] Amiodarone hydrochloride 200 MG Oral Tablet Amiodarone 05/31/2020 08:09:50 AM EST 400 MG completed [facility] Vitamin B 12 0.5 MG Oral Tablet Cyanocobalamin (Vitami n B-12) Cyanocobalamin (Vitamin B-12) 05/31/2020 12:47:05 AM EST 500 MCG active [facility] Vitamin B 12 0.5 MG Oral Tablet Cyanocobalamin (Vitami n B-12) Cyanocobalamin (Vitamin B-12) 05/31/2020 12:47:05 AM EST 500 MCG active [facility] Amlodipine 10 MG Oral Tablet Amlodipine 05/31/2020 12:47:05 AM EST 10 MG completed [facility] Amlodipine 10 MG Oral Tablet Amlodipine 05/31/2020 12:47:05 AM EST 10 MG completed [facility] Amlodipine 10 MG Oral Tablet Amlodipine 05/31/2020 12:47:05 AM EST 10 MG completed [facility] Amlodipine 10 MG Oral Tablet Amlodipine 05/31/2020 12:47:05 AM EST 10 MG completed [facility] [place] Fatty Acids-Vitamin E 05/31/2020 12:47:05 AM EST 1000 CAP active [facility] [place] Fatty Acids-Vitamin E 05/31/2020 12:47:05 AM EST 1000 CAP active [facility] Trazodone Hydrochloride 100 MG Oral Tablet Trazodone 05/31 12:47:05 AM EST 100 MG active [facility] Trazodone Hydrochloride 100 MG Oral Tablet Trazodone 05/31 12:47:05 AM EST 100 MG active [facility] Vitamin B 12 0.5 MG Oral Tablet Cyanocobalamin (Vitami n B-12) Cyanocobalamin (Vitamin B-12) 05/31/2020 12:47:05 AM EST 500 MCG active [facility] Trazodone Hydrochloride 100 MG Oral Tablet Trazodone 05/31 12:47:05 AM EST 100 MG active [facility] [place] Fatty Acids-Vitamin E 05/31/2020 12:47:05 AM EST 1000 CAP active [facility] Trazodone Hydrochloride 100 MG Oral Tablet Trazodone 05/31 12:47:05 AM EST 100 MG active [facility] [place] Fatty Acids-Vitamin E 05/31/2020 12:47:05 AM EST 1000 CAP active [facility] Vitamin B 12 0.5 MG Oral Tablet Cyanocobalamin (Vitami n B-12) Cyanocobalamin (Vitamin B-12) 05/31/2020 12:47:05 AM EST 500 MCG active [facility] [place] Fatty Acids-Vitamin E 05/31/2020 12:47:05 AM EST 1000 CAP active [facility] Amlodipine 10 MG Oral Tablet Amlodipine 05/31/2020 12:47:05 AM EST 10 MG completed [facility] Vitamin B 12 0.5 MG Oral Tablet Cyanocobalamin (Vitami n B-12) Cyanocobalamin (Vitamin B-12) 05/31/2020 12:47:05 AM EST 500 MCG active [facility] Amlodipine 10 MG Oral Tablet Amlodipine 05/31/2020 12:47:05 AM EST 10 MG completed [facility] Trazodone Hydrochloride 100 MG Oral Tablet Trazodone 05/31 12:47:05 AM EST 100 MG [facility] Trazodone Hydrochloride 100 MG Oral Tablet Trazodone 05/31 12:47:05 AM EST 100 MG active [facility] [place] Fatty Acids-Vitamin E 05/31/2020 12:47:05 AM EST 1000 CAP active [facility] Vitamin B 12 0.5 MG Oral Tablet Cyanocobalamin (Vitami n B-12) Cyanocobalamin (Vitamin B-12) 05/31/2020 12:47:05 AM EST 500 MCG active [facility] Insulin Lispro 05/30/2020 11:57:37 AM EST 7 UNIT c ompleted [facility] Insulin Lispro 05/30/2020 11:57:37 AM EST 7 UNIT c [facility] Insulin Lispro 05/30/2020 11:57:37 AM EST 7 UNIT c [facility] Insulin Lispro 05/30/2020 11:57:37 AM EST 7 UNIT c [facility] Insulin Lispro 05/30/2020 11:57:37 AM EST 7 UNIT c [facility] Insulin Lispro 05/30/2020 11:57:37 AM EST 7 UNIT c [facility] 3 ML Insulin Glargine 100 UNT/ML Pen Inj danuta Insulin Glargine (Lantus Solostar U-100 Insulin) 100 unit/mL (3 mL) insulin pen Insulin Glargine (Lantus Solostar U-100 Insulin) 100 unit/mL (3 mL) insulin pen 05/30/2020 11:56:32 AM EST 35 UNIT completed [facility] 3 ML Insulin Glargine 100 UNT/ML Pen Inj danuta Insulin Glargine (Lantus Solostar U-100 Insulin) 100 unit/mL (3 mL) insulin pen Insulin Glargine (Lantus Solostar U-100 Insulin) 100 unit/mL (3 mL) insulin pen 05/30/2020 11:56:32 AM EST 35 UNIT completed [facility] 3 ML Insulin Glargine 100 UNT/ML Pen Inj danuta Insulin Glargine (Lantus Solostar U-100 Insulin) 100 unit/mL (3 mL) insulin pen Insulin Glargine (Lantus Solostar U-100 Insulin) 100 unit/mL (3 mL) insulin pen 05/30/2020 11:56:32 AM EST 35 UNIT completed [facility] 3 ML Insulin Glargine 100 UNT/ML Pen Inj danuta Insulin Glargine (Lantus Solostar U-100 Insulin) 100 unit/mL (3 mL) insulin pen Insulin Glargine (Lantus Solostar U-100 Insulin) 100 unit/mL (3 mL) insulin pen 05/30/2020 11:56:32 AM EST 35 UNIT completed [facility] 3 ML Insulin Glargine 100 UNT/ML Pen Inj danuta Insulin Glargine (Lantus Solostar U-100 Insulin) 100 unit/mL (3 mL) insulin pen Insulin Glargine (Lantus Solostar U-100 Insulin) 100 unit/mL (3 mL) insulin pen 05/30/2020 11:56:32 AM EST 35 UNIT completed [facility] 3 ML Insulin Glargine 100 UNT/ML Pen Inj danuta Insulin Glargine (Lantus Solostar U-100 Insulin) 100 unit/mL (3 mL) insulin pen Insulin Glargine (Lantus Solostar U-100 Insulin) 100 unit/mL (3 mL) insulin pen 05/30/2020 11:56:32 AM EST 35 UNIT completed [facility] apixaban 5 MG Oral Tablet Apixaban (Eliquis) 5 mg Tabl et Apixaban (Eliquis) 5 mg Tablet 05/29/2020 09:46:51 PM EST 5 MG active [facility] apixaban 5 MG Oral Tablet Apixaban (Eliquis) 5 mg Tabl et Apixaban (Eliquis) 5 mg Tablet 05/29/2020 09:46:51 PM EST 5 MG completed [facility] apixaban 5 MG Oral Tablet Apixaban (Eliquis) 5 mg Tabl et Apixaban (Eliquis) 5 mg Tablet 05/29/2020 09:46:51 PM EST 5 MG active [facility] apixaban 5 MG Oral Tablet Apixaban (Eliquis) 5 mg Tabl et Apixaban (Eliquis) 5 mg Tablet 05/29/2020 09:46:51 PM EST 5 MG active [facility] apixaban 5 MG Oral Tablet Apixaban (Eliquis) 5 mg Tabl et Apixaban (Eliquis) 5 mg Tablet 05/29/2020 09:46:51 PM EST 5 MG active [facility] apixaban 5 MG Oral Tablet Apixaban (Eliquis) 5 mg Tabl et Apixaban (Eliquis) 5 mg Tablet 05/29/2020 09:46:51 PM EST 5 MG completed [facility] apixaban 5 MG Oral Tablet Apixaban (Eliquis) 5 mg Tabl et Apixaban (Eliquis) 5 mg Tablet 05/29/2020 09:46:51 PM EST 5 MG active [facility] Warfarin Sodium 5 MG Oral Tablet warfarin (COUMADIN) 5 MG tablet warfarin (COUMADIN) 5 MG tablet 07/09/2019 12:00:00 AM EST 5 mg Oral aborted Take 1 tablet (5 mg total) by mouth daily on Friday, Friday, and Friday [facility] Melatonin 3 MG Oral Tablet Melatonin (Melatin) 3 mg Ta blet Melatonin (Melatin) 3 mg Tablet 07/07/2019 02:42:31 PM EST 3 MG completed [facility] Hydralazine Hydrochloride 10 MG Oral Tablet Hydralazine 07/07/2019 02:42:31 PM EST 10 MG completed [facility] Famotidine 20 MG Oral Tablet Famotidine 07/07/2019 02:42:31 PM EST 20 MG completed [facility] atorvastatin 40 MG Oral Tablet Atorvastatin Atorvastatin 07/07/2019 02:42:31 PM EST 80 MG completed [facility] Famotidine 20 MG Oral Tablet Famotidine 07/07/2019 02:42:31 PM EST 20 MG completed [facility] Famotidine 20 MG Oral Tablet Famotidine 07/07/2019 02:42:31 PM EST 20 MG completed [facility] Melatonin 3 MG Oral Tablet Melatonin (Melatin) 3 mg Ta blet Melatonin (Melatin) 3 mg Tablet 07/07/2019 02:42:31 PM EST 3 MG completed [facility] Hydralazine Hydrochloride 10 MG Oral Tablet Hydralazine 07/07/2019 02:42:31 PM EST 10 MG completed [facility] Hydralazine Hydrochloride 10 MG Oral Tablet Hydralazine 07/07/2019 02:42:31 PM EST 10 MG completed [facility] Melatonin 3 MG Oral Tablet Melatonin (Melatin) 3 mg Ta blet Melatonin (Melatin) 3 mg Tablet 07/07/2019 02:42:31 PM EST 3 MG completed [facility] Hydralazine Hydrochloride 10 MG Oral Tablet Hydralazine 07/07/2019 02:42:31 PM EST 10 MG completed [facility] atorvastatin 40 MG Oral Tablet Atorvastatin Atorvastatin 07/07/2019 02:42:31 PM EST 80 MG completed [facility] Hydralazine Hydrochloride 10 MG Oral Tablet Hydralazine 07/07/2019 02:42:31 PM EST 10 MG completed [facility] duloxetine Duloxetine Duloxetine 07/07/2019 02:42:31 PM EST 60 M G completed [facility] Melatonin 3 MG Oral Tablet Melatonin (Melatin) 3 mg Ta blet Melatonin (Melatin) 3 mg Tablet 07/07/2019 02:42:31 PM EST 3 MG completed [facility] Famotidine 20 MG Oral Tablet Famotidine 07/07/2019 02:42:31 PM EST 20 MG completed [facility] Famotidine 20 MG Oral Tablet Famotidine 07/07/2019 02:42:31 PM EST 20 MG completed [facility] Melatonin 3 MG Oral Tablet Melatonin (Melatin) 3 mg Ta blet Melatonin (Melatin) 3 mg Tablet 07/07/2019 02:42:31 PM EST 3 MG completed [facility] Hydralazine Hydrochloride 10 MG Oral Tablet Hydralazine 07/07/2019 02:42:31 PM EST 10 MG completed [facility] duloxetine Duloxetine Duloxetine 07/07/2019 02:42:31 PM EST 60 M G completed [facility] Melatonin 3 MG Oral Tablet Melatonin (Melatin) 3 mg Ta blet Melatonin (Melatin) 3 mg Tablet 07/07/2019 02:42:31 PM EST 3 MG completed [facility] Famotidine 20 MG Oral Tablet Famotidine 07/07/2019 02:42:31 PM EST 20 MG completed [facility] Melatonin 3 MG Oral Tablet Melatonin (Melatin) 3 mg Ta blet Melatonin (Melatin) 3 mg Tablet 07/07/2019 02:42:31 PM EST 3 MG completed [facility] Lisinopril 20 MG Oral Tablet Lisinopril 07/06/2019 02:30:43 PM EST 40 MG completed [facility] Warfarin Sodium 2.5 MG Oral Tablet Warfarin (Coumadin) 2.5 mg Tablet Warfarin (Coumadin) 2.5 mg Tablet 07/06/2019 02:30:43 PM EST 0 completed [facility] Lisinopril 20 MG Oral Tablet Lisinopril 07/06/2019 02:30:43 PM EST 40 MG completed [facility] Warfarin Sodium 2.5 MG Oral Tablet Warfarin (Coumadin) 2.5 mg Tablet Warfarin (Coumadin) 2.5 mg Tablet 07/06/2019 02:30:43 PM EST 0 completed [facility] Warfarin Sodium 2.5 MG Oral Tablet Warfarin (Coumadin) 2.5 mg Tablet Warfarin (Coumadin) 2.5 mg Tablet 07/06/2019 02:30:43 PM EST 0 completed [facility] Lisinopril 20 MG Oral Tablet Lisinopril 07/06/2019 02:30:43 PM EST 40 MG completed [facility] Warfarin Sodium 5 MG Oral Tablet Warfarin (Coumadin) 5 mg Tablet Warfarin (Coumadin) 5 mg Tablet 07/06/2019 02:30:43 PM EST 0 completed [facility] Warfarin Sodium 2.5 MG Oral Tablet Warfarin (Coumadin) 2.5 mg Tablet Warfarin (Coumadin) 2.5 mg Tablet 07/06/2019 02:30:43 PM EST 0 completed [facility] Warfarin Sodium 2.5 MG Oral Tablet Warfarin (Coumadin) 2.5 mg Tablet Warfarin (Coumadin) 2.5 mg Tablet 07/06/2019 02:30:43 PM EST 0 completed [facility] Warfarin Sodium 5 MG Oral Tablet Warfarin (Coumadin) 5 mg Tablet Warfarin (Coumadin) 5 mg Tablet 07/06/2019 02:30:43 PM EST 0 completed [facility] Warfarin Sodium 2.5 MG Oral Tablet Warfarin (Coumadin) 2.5 mg Tablet Warfarin (Coumadin) 2.5 mg Tablet 07/06/2019 02:30:43 PM EST 0 completed [facility] Lisinopril 20 MG Oral Tablet Lisinopril 07/06/2019 02:30:43 PM EST 40 MG completed [facility] Warfarin Sodium 2.5 MG Oral Tablet Warfarin (Coumadin) 2.5 mg Tablet Warfarin (Coumadin) 2.5 mg Tablet 07/06/2019 02:30:43 PM EST 0 completed [facility] Warfarin Sodium 5 MG Oral Tablet Warfarin (Coumadin) 5 mg Tablet Warfarin (Coumadin) 5 mg Tablet 07/06/2019 02:30:43 PM EST 0 completed [facility] Lisinopril 20 MG Oral Tablet Lisinopril 07/06/2019 02:30:43 PM EST 40 MG completed [facility] Lisinopril 20 MG Oral Tablet Lisinopril 07/06/2019 02:30:43 PM EST 40 MG completed [facility] Warfarin Sodium 5 MG Oral Tablet Warfarin (Coumadin) 5 mg Tablet Warfarin (Coumadin) 5 mg Tablet 07/06/2019 02:30:43 PM EST 0 completed [facility] Warfarin Sodium 5 MG Oral Tablet Warfarin (Coumadin) 5 mg Tablet Warfarin (Coumadin) 5 mg Tablet 07/06/2019 02:30:43 PM EST 0 completed [facility] Warfarin Sodium 5 MG Oral Tablet Warfarin (Coumadin) 5 mg Tablet Warfarin (Coumadin) 5 mg Tablet 07/06/2019 02:30:43 PM EST 0 completed [facility] Warfarin Sodium 5 MG Oral Tablet Warfarin (Coumadin) 5 mg Tablet Warfarin (Coumadin) 5 mg Tablet 07/06/2019 02:30:43 PM EST 0 completed [facility] Metformin hydrochloride 1000 MG Oral Tab let metFORMIN (GLUCOPHAGE) 1,000 mg tablet metFORMIN (GLUCOPHAGE) 1,000 mg tablet 1000 mg oral aborted Take 1,000 mg by mouth 2 (two) times a day with meals. [facility] MELATONIN PO Oral aborted Take by m outh [facility] aripiprazole 10 MG Oral Tablet ARIPiprazole (ABILIFY) 10 MG tablet ARIPiprazole (ABILIFY) 10 MG tablet 10 mg Oral aborted T miller 10 mg by mouth daily [facility] apixaban 5 MG Oral Tablet apixaban (Eliquis) 5 mg tabl et apixaban (Eliquis) 5 mg tablet 5 mg oral aborted Take 5 m g by mouth 2 (two) times a day. Stop eliquis 06/11/[address] [facility] Insurance Providers Payer name Policy type / Coverage type Policy ID Covered libertarian ID Covered libertarian's relationship to byrne Policy [place] Plan Information MEDICARE A [id number] Self [id number] MEDICARE A [id number] Self [id number] MEDICARE [id number] Petra [id number] [id number] OTHER B [id number] Self [id number] OTHER B [id number] Self [id number] HUMANA [id number] Self [id number] WELLCARE MEDICARE [id number] Petra [id number] WELLCARE MEDICARE HMO [id number] Self [id number] HUMANA [id number] HUMANA [id number] Self [id number] HUMANA MEDICARE ADVANTAGE [id number] Self [id number] HUMANA [id number] Self [id number] INSURANCE COVID-19 COVID Petra C OVID [employer] [place] [employer] [place] Plan/ [id number] Self [id number] WPS [id number] [facility] [id number] SP [id number] COMMERCIAL GENERIC [id number] 2 [id number] COMMERCIAL GENERIC [id number] Petra [id number] [place] PART B C [id number] S [id number] ANSI-Medicare Part B [id number] ANSI-Medicare Part B [id number] [employer] [place] CCN [id number] SP [id number] MEDICARE PI PI HUMANA HMO [id number] SP [id number] ADMINSTRATION -O/P [id number] 18 [id number] MEDICARE PART A -O/P [id number] 18 [id number] [employer] [place] CCN [id number] SP [id number] ADMINISTRATION [id number] SP [id number] MEDICARE [id number] SP [id number] COMMERCIAL GENERIC [id number] Petra [id number] COMMERCIAL GENERIC [id number] [id number] COMMERCIAL GENERIC [id number] Petra [id number] OTHER B [id number] Self [id number] [facility] O [id number] S [id number] MEDICARE C [id number] S [id number] O [id number] S [id number] Problems, Conditions, and Diagnoses Code Display Name Description Problem Type Effective Dates Data Source(s) U49006 Bathroom of unspecified non- institutional (private) residence as the place of occurrence of the external cause Bathroom of unspecified non- institutional (private) residence as the place of occurrence of the external cause Diagnosis 02/19/2021 07:03:00 AM [facility] [id number] Unspecified fall, initial encounter Unspecified fall, initial encounter Diagnosis 02/19/2021 07:03:00 AM [facility] Z7984 skilled nursing (current) use of oral hypoglyc emic drugs skilled nursing (current) use of oral hypoglycemic drugs Diagnosis 02/19/2021 07:03:00 AM [facility] [id number] Presence of automatic (implantable) card iac defibrillator Presence of automatic (implantable) cardiac defibrillator Diagnosis 02/20/20 07:03:00 AM [facility] [id number] Personal history of pulmonary embolism P ersonal history of pulmonary embolism Diagnosis 02/19/2021 07:03:00 AM [facility] Z955 Presence of coronary angioplasty implant and graft Presence of coronary angioplasty implant and graft Diagnosis 02/19/2021 07:03:00 AM [facility] Z8673 Personal history of transien t ischemic attack (TIA), and cerebral infarction without residual deficits Personal history of transient ischemic attack (TIA), and cerebral infarction without residual deficits Diagnosis 02/19/2021 07:03:00 AM [facility] D14282 Nicotine dependence, cigarettes, uncompl icated Nicotine dependence, cigarettes, uncomplicated Diagnosis 02/19/2021 07:03:[address] [facility] I10 Essential (primary) hypertension Essential (primary) h ypertension Diagnosis 02/19/2021 07:03:00 AM [facility] I2510 Atherosclerotic heart diseas e of [place] coronary artery without angina pectoris Atherosclerotic heart disease of [place] coronary artery without angina pectoris Diagnosis 02/19/2021 07:03:00 AM [facility] I252 Old myocardial infarction Old myocardial infarction Di agnosis 02/19/2021 07:03:00 AM [facility] E119 Type 2 diabetes mellitus without complic ations Type 2 diabetes mellitus without complications Diagnosis 02/19/2021 07:03:00 AM [facility] M779 Enthesopathy, unspecified Enthesopathy, unspecified Di agnosis 02/19/2021 07:03:00 AM EDT [facility] [id number] Strain of other muscles, fas clemencia and tendons at shoulder and upper arm level, left arm, initial encounter Strain of other muscles, fascia and tend ons at shoulder and upper arm level, left arm, initial encounter Diagnosis 02/19/2021 07:03:00 AM EDT [facility] [id number] Sprain of left rotator cuff capsule, ini tial encounter Sprain of left rotator cuff capsule, initial encounter Diagnosis 02/19/2021 07:03:00 AM EDT [facility] [id number] Pain in left shoulder Pain in left shoulder Diagnosis 02/19/2021 07:03:00 AM EDT [facility] R55 Syncope and collapse Syncope and collapse Diagnosis 07/11/2020 06:20:00 PM [facility] RECURRENT SYNCOPE; ENDOCARDITIS RECURRENT SYNCOPE; END OCARDITIS Diagnosis 07/11/2020 06:20:00 PM [facility] T82.7XXA Infection and inflammatory r eaction due to other cardiac and vascular devices, implants and grafts, initial encounter Infection and inflammatory reaction due Diagnosis 06/21/2020 02:44:36 PM [facility] R07.9 Chest pain, unspecified Chest pain, unspecified Diagno sis 06/16/2020 11:42:00 AM [facility] Endocarditis Endocarditis Diagnosis 06/16/2020 11:42:00 A M [facility] I25.10 [id number] Coronary artery dise ase involving [place] coronary artery of [place] heart without angina pectoris Problem 01/19/2021 12:00:00 AM EDT eCW1 ([facility]) N40.0 [id number] Benign prostatic hyp erplasia without lower urinary tract symptoms Problem 01/19/2021 12:00:00 AM EDT [facility] E11.9 [id number] Controlled type 2 di abetes mellitus without complication, without long-term current use of insulin Problem 01/19/2021 12:00:00 AM EDT eCW1 ([facility]) I10 [id number] Essential hypertension Problem 01/19/2021 12 :00:00 AM EDT eCW1 ([facility]) Z86.711 [id number] History of pulmonary embolism Problem 01/19/2021 12:00:00 AM EDT eCW1 ([facility]) I48.0 Paroxysmal atrial fibrillation Paroxysmal atrial fibri llation [id number] 06/21/2020 12:00:00 AM EST [facility] 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 POCT GLUCOSE METER UNSOLICITED RESULTS <td>POCT GLUCOS E METER UNSOLICITED RESULTS</td><td>Routine</td><td>07/15/2020 7:20 AM EST</td><td></td><td> </td> 07/15/2020 07:20:[address] [facility] BLOOD COUNT COMPLETE AUTO&AUTO DIFRNTL WBC COUNT <td>H C CBC W/ DIFFERENTIAL</td><td>Routine</td><td>07/15/2020 4:35 AM EST</td><td></td><td> </td> 07/15/2020 04:35:[address] [facility] COMPREHENSIVE METABOLIC PANEL <td>COMPREHENSIVE METABO LIC PANEL</td><td>Routine</td><td>07/15/2020 4:35 AM EST</td><td></td><td> </td> 07/15/2020 04:35:[address] [facility] POCT GLUCOSE METER UNSOLICITED RESULTS <td>POCT GLUCOS E METER UNSOLICITED RESULTS</td><td>Routine</td><td>07/14/2020 8:37 PM EST</td><td></td><td> </td> 07/14/2020 08:37:[address] [facility] POCT GLUCOSE METER UNSOLICITED RESULTS <td>POCT GLUCOS E METER UNSOLICITED RESULTS</td><td>Routine</td><td>07/14/2020 4:48 PM EST</td><td></td><td> </td> 07/14/2020 04:48:[address] [facility] POCT GLUCOSE METER UNSOLICITED RESULTS <td>POCT GLUCOS E METER UNSOLICITED RESULTS</td><td>Routine</td><td>07/14/2020 11:50 AM EST</td><td></td><td> </td> 07/14/2020 11:50:[address] [facility] POCT GLUCOSE METER UNSOLICITED RESULTS <td>POCT GLUCOS E METER UNSOLICITED RESULTS</td><td>Routine</td><td>07/14/2020 7:36 AM EST</td><td></td><td> </td> 07/14/2020 07:36:00 AM [facility] BLOOD COUNT COMPLETE AUTO&AUTO DIFRNTL WBC COUNT <td>H C CBC W/ DIFFERENTIAL</td><td>STAT</td><td>07/14/2020 4:56 AM EST</td><td></td><td> </td> 07/14/2020 04:56:00 AM [facility] BASIC METABOLIC PANEL CALCIUM TOTAL <td>BASIC METABOLI C PANEL</td><td>STAT</td><td>07/14/2020 4:56 AM EST</td><td></td><td> </td> 07/14/2020 04:56:[address] [facility] POCT GLUCOSE METER UNSOLICITED RESULTS <td>POCT GLUCOS E METER UNSOLICITED RESULTS</td><td>Routine</td><td>07/13/2020 8:59 PM EST</td><td></td><td> </td> 07/13/2020 08:59:[address] [facility] POCT GLUCOSE METER UNSOLICITED RESULTS <td>POCT GLUCOS E METER UNSOLICITED RESULTS</td><td>Routine</td><td>07/13/2020 4:02 PM EST</td><td></td><td> </td> 07/13/2020 04:02:[address] [facility] POCT GLUCOSE METER UNSOLICITED RESULTS <td>POCT GLUCOS E METER UNSOLICITED RESULTS</td><td>Routine</td><td>07/13/2020 12:01 PM EST</td><td></td><td> </td> 07/13/2020 12:01:[address] [facility] POCT GLUCOSE METER UNSOLICITED RESULTS <td>POCT GLUCOS E METER UNSOLICITED RESULTS</td><td>Routine</td><td>07/13/2020 8:54 AM EST</td><td></td><td> </td> 07/13/2020 08:54:00 AM [facility] ELECTROENCEPHALOGRAM W/REC AWAKE&ASLEEP <td>EEG- INPATIENT</td><td>Routine</td><td>07/13/2020 8:26 AM EST</td><td></td><td> </td> 07/13/2020 08:26:43 AM [facility] BLOOD COUNT COMPLETE AUTO&AUTO DIFRNTL WBC COUNT <td>H C CBC W/ DIFFERENTIAL</td><td>Routine</td><td>07/13/2020 4:53 AM EST</td><td></td><td> </td> 07/13/2020 04:53:00 AM [facility] BASIC METABOLIC PANEL CALCIUM TOTAL <td>BASIC METABOLI C PANEL</td><td>Routine</td><td>07/13/2020 4:53 AM EST</td><td></td><td> </td> 07/13/2020 04:53:[address] [facility] POCT GLUCOSE METER UNSOLICITED RESULTS <td>POCT GLUCOS E METER UNSOLICITED RESULTS</td><td>Routine</td><td>07/12/2020 9:33 PM EST</td><td></td><td> </td> 07/12/2020 09:33:[address] [facility] POCT GLUCOSE METER UNSOLICITED RESULTS <td>POCT GLUCOS E METER UNSOLICITED RESULTS</td><td>Routine</td><td>07/12/2020 5:14 PM EST</td><td></td><td> </td> 07/12/2020 05:14:[address] [facility] DUPLEX SCAN EXTRACRANIAL ART COMPL BI STUDY <td>ULTRAS OUND CAROTID DOPPLER BILATERAL</td><td>Routine</td><td>07/12/2020 5:01 PM EST</td><td></td><td> </td> 07/12/2020 05:01:[address] [facility] POCT GLUCOSE METER UNSOLICITED RESULTS <td>POCT GLUCOS E METER UNSOLICITED RESULTS</td><td>Routine</td><td>07/12/2020 12:36 PM EST</td><td></td><td> </td> 07/12/2020 12:36:[address] [facility] ECHO TTHRC R-T 2D W/WOM-MODE COMPL SPEC&COLR DOP <td>E CHO 2D MODE PANEL (WITH COLOR FLOW AND DOPPLER)</td><td>Routine</td><td>07/12/2020 9:54 AM EST</td><td></td><td> </td> 07/12/2020 09:54:[address] [facility] XR CHEST 1 VIEW <td>XR CHEST 1 VIEW</td><td> Routine</td><td>07/12/2020 8:21 AM EST</td><td></td><td> </td> 07/12/2020 08:21:[address] [facility] POCT GLUCOSE METER UNSOLICITED RESULTS <td>POCT GLUCOS E METER UNSOLICITED RESULTS</td><td>Routine</td><td>07/12/2020 7:28 AM EST</td><td></td><td> </td> 07/12/2020 07:28:[address] [facility] NATRIURETIC PEPTIDE <td>N-TERMINAL PROBNP (BNP)</td><td>Routine</td><td>07/12/2020 4:29 AM EST</td><td></td><td> </td> 07/12/2020 04:29:00 AM [facility] PROCALCITONIN TEST <td>PROCALCITONIN TEST</td>< td>Routine</td><td>07/12/2020 4:29 AM EST</td><td></td><td> </td> 07/12/2020 04:29:[address] [facility] TROPONIN QUANTITATIVE <td>TROPONIN I</td><td>Routi ne</td><td>07/12/2020 4:29 AM EST</td><td></td><td> </td> 07/12/2020 04:29:00 AM [facility] BLOOD COUNT COMPLETE AUTO&AUTO DIFRNTL WBC COUNT <td>H C CBC W/ DIFFERENTIAL</td><td>Routine</td><td>07/12/2020 4:29 AM EST</td><td></td><td> </td> 07/12/2020 04:29:[address] [facility] MAGNESIUM <td>MAGNESIUM</td><td>Routin e</td><td>07/12/2020 4:29 AM EST</td><td></td><td> </td> 07/12/2020 04:29:[address] [facility] BASIC METABOLIC PANEL CALCIUM TOTAL <td>BASIC METABOLI C PANEL</td><td>Routine</td><td>07/12/2020 4:29 AM EST</td><td></td><td> </td> 07/12/2020 04:29:[address] [facility] POCT GLUCOSE METER UNSOLICITED RESULTS <td>POCT GLUCOS E METER UNSOLICITED RESULTS</td><td>Routine</td><td>07/12/2020 12:04 AM EST</td><td></td><td> </td> 07/12/2020 12:04:[address] [facility] Echocardiography, Profl,Tranthoracic, Realtime Image Documen alicia 07/12/2020 12:00:00 AM EST [facility] ([facility]) CULTURE BACTERIAL BLOOD AEROBIC W/ID ISOLATES <td>BLOO D CULTURE</td><td>STAT</td><td>07/11/2020 9:37 PM EST</td><td></td><td></td> 07/11/2020 09:37:[address] [facility] TROPONIN QUANTITATIVE <td>TROPONIN I</td><td>Routi ne</td><td>07/11/2020 9:29 PM EST</td><td></td><td> </td> 07/11/2020 09:29:[address] [facility] CULTURE BACTERIAL BLOOD AEROBIC W/ID ISOLATES <td>BLOO D CULTURE</td><td>STAT</td><td>07/11/2020 9:29 PM EST</td><td></td><td></td> 07/11/2020 09:29:00 PM [facility] C-REACTIVE PROTEIN <td>C-REACTIVE PROTEIN</td>< td>Routine</td><td>07/11/2020 9:29 PM EST</td><td></td><td> </td> 07/11/2020 09:29:00 PM [facility] Plain chest X-ray (procedure) 07/11/2020 03:06:00 PM [facility] 07/11/2020 12:00:00 AM [facility] Influenza-Like Illness (PCR) 07/11/2020 12:00:00 AM [facility] Magnetic resonance imaging of lumbar spine with contrast (pr ocedure) 07/10/2020 10:31:00 AM [facility] Magnetic resonance imaging of lumbar spine with contrast (pr ocedure) 07/10/2020 10:31:00 AM [facility] Plain chest X-ray (procedure) 07/05/2020 05:23:00 PM [facility] Plain chest X-ray (procedure) 07/05/2020 05:23:00 PM [facility] Plain chest X-ray (procedure) 07/05/2020 05:23:[address] [facility] [address] Head without contrast 07/05/2020 04:36:00 PM [facility] CT Head without contrast 07/05/2020 04:36:00 PM [facility] CT Head without contrast 07/05/2020 04:36:00 PM [facility] Blood culture for bacteria, including anaerobic screen (proc edure) 07/05/2020 12:00:[address] [facility] Blood culture for bacteria, including anaerobic screen (proc edure) 07/05/2020 12:00:[address] [facility] Blood Culture 07/05/2020 12:00:00 AM EST [facility] GLUC BLD GLUC MNTR DEV CLEARED FDA SPEC HOME USE <td>P OCT GLUCOSE</td><td>Routine</td><td>06/23/2020 11:33 AM EST</td><td></td><td> </td> 06/23/2020 04:33:00 PM EST [facility] GLUC BLD GLUC MNTR DEV CLEARED FDA SPEC HOME USE <td>P OCT GLUCOSE</td><td>Routine</td><td>06/23/2020 7:38 AM EST</td><td></td><td> </td> 06/23/2020 12:38:00 PM EST [facility] BLOOD COUNT COMPLETE AUTOMATED <td>CBC</td><td>Timed</ td><td>06/23/2020 5:50 AM EST</td><td></td><td> </td> 06/23/2020 10:50:00 AM EST [facility] BASIC METABOLIC PANEL CALCIUM TOTAL <td>BASIC METABOLI C PANEL</td><td>Timed</td><td>06/23/2020 5:50 AM EST</td><td></td><td> </td> 06/23/2020 10:50:00 AM EST [facility] GLUC BLD GLUC MNTR DEV CLEARED FDA SPEC HOME USE <td>P OCT GLUCOSE</td><td>Routine</td><td>06/22/2020 4:58 PM EST</td><td></td><td> </td> 06/22/2020 09:58:00 PM EST [facility] XR CHEST PORTABLE <td>XR CHEST PORTABLE</td><t d>STAT</td><td>06/22/2020 2:46 PM EST</td><td></td><td> </td> 06/22/2020 07:46:35 PM EST [facility] FLUOROSCOPY SPX <1 HOUR PHYSICIAN TIME <td>XR FLUORO U P TO 1 HR</td><td>STAT</td><td>06/22/2020 2:24 PM EST</td><td></td><td> </td> 06/22/2020 07:24:13 PM EST [facility] CULTURE BACTERIAL ANY SOURCE ANAEROBIC ISO&ID <td>ANAE ROBIC TISSUE / BONE CULTURE</td><td>Timed</td><td>06/22/2020 1:23 PM EST</td><td></td><td> </td> 06/22/2020 06:23:00 PM EST [facility] CULTURE BACTERIAL ANY SOURCE ANAEROBIC ISO&ID <td>ANAE ROBIC TISSUE / BONE CULTURE</td><td>Timed</td><td>06/22/2020 1:23 PM EST</td><td></td><td> </td> 06/22/2020 06:23:00 PM EST [facility] CUL BACT ADRIANA AEROBIC ISOL XCPT UR BLOOD/STOOL <td>TIS RADHA / BONE CULTURE</td><td>Timed</td><td>06/22/2020 1:23 PM EST</td><td></td><td> </td> 06/22/2020 06:23:00 PM EST [facility] CUL BACT ADRIANA AEROBIC ISOL XCPT UR BLOOD/STOOL <td>TIS RADHA / BONE CULTURE</td><td>Timed</td><td>06/22/2020 1:23 PM EST</td><td></td><td> </td> 06/22/2020 06:23:00 PM EST [facility] ECG TRANSESOPHAG R-T 2D W/PRB IMG ACQUISJ I&R <td>ECHO CARDIOGRAM TRANSESOPHAGEAL</td><td>Routine</td><td>06/22/2020 12:47 PM EST</td><td></td><td> </td> 06/22/2020 05:47:57 PM EST [facility] BLOOD TYPING ABO <td>TYPE AND SCREEN</td><td> STAT</td><td>06/22/2020 12:05 PM EST</td><td></td><td> </td> 06/22/2020 05:05:00 PM EST [facility] GLUC BLD GLUC MNTR DEV CLEARED FDA SPEC HOME USE <td>P OCT GLUCOSE</td><td>Routine</td><td>06/22/2020 11:31 AM EST</td><td></td><td> </td> 06/22/2020 04:31:00 PM EST [facility] GLUC BLD GLUC MNTR DEV CLEARED FDA SPEC HOME USE <td>P OCT GLUCOSE</td><td>Routine</td><td>06/22/2020 7:32 AM EST</td><td></td><td> </td> 06/22/2020 12:32:00 PM EST [facility] BLOOD COUNT COMPLETE AUTOMATED <td>CBC</td><td>Routine </td><td>06/22/2020 5:50 AM EST</td><td></td><td> </td> 06/22/2020 10:50:00 AM EST [facility] BASIC METABOLIC PANEL CALCIUM TOTAL <td>BASIC METABOLI C PANEL</td><td>Routine</td><td>06/22/2020 5:50 AM EST</td><td></td><td> </td> 06/22/2020 10:50:00 AM EST [facility] THROMBOPLASTIN TIME PARTIAL PLASMA/WHOLE BLOOD <td>APTT</td><td>STAT</td><td>06/21/2020 8:25 PM EST</td><td></td><td> </td> 06/22/2020 01:25:00 AM EST [facility] PROTHROMBIN TIME <td>PROTIME-INR</td><td>STAT </td><td>06/21/2020 8:25 PM EST</td><td></td><td> </td> 06/22/2020 01:25:00 AM EST [facility] GLUC BLD GLUC MNTR DEV CLEARED FDA SPEC HOME USE <td>P OCT GLUCOSE</td><td>Routine</td><td>06/21/2020 6:22 PM EST</td><td></td><td> </td> 06/21/2020 11:22:00 PM EST [facility] HEMOGLOBIN GLYCOSYLATED A1C <td>HEMOGLOBIN A1C</td><td>Routine</td><td>06/21/2020 6:00 PM EST</td><td></td><td> </td> 06/21/2020 11:00:00 PM EST [facility] 2019 NCOV AMPLIFIED <td>2019 NCOV AMPLIFIED</td> <td>STAT</td><td>06/21/2020 3:45 PM EST</td><td></td><td> </td> 06/21/2020 08:45:00 PM EST [facility] POCT GLUCOSE METER UNSOLICITED RESULTS <td>POCT GLUCOS E METER UNSOLICITED RESULTS</td><td>Routine</td><td>06/21/2020 7:33 AM EST</td><td></td><td> </td> 06/21/2020 07:33:[address] [facility] BLOOD COUNT COMPLETE AUTOMATED <td>CBC</td><td>Routine </td><td>06/21/2020 5:00 AM EST</td><td></td><td> </td> 06/21/2020 05:00:[address] [facility] MAGNESIUM <td>MAGNESIUM</td><td>Routin e</td><td>06/21/2020 5:00 AM EST</td><td></td><td> </td> 06/21/2020 05:00:00 AM [facility] COMPREHENSIVE METABOLIC PANEL <td>COMPREHENSIVE METABO LIC PANEL</td><td>Routine</td><td>06/21/2020 5:00 AM EST</td><td></td><td> </td> 06/21/2020 05:00:00 AM [facility] POCT GLUCOSE METER UNSOLICITED RESULTS <td>POCT GLUCOS E METER UNSOLICITED RESULTS</td><td>Routine</td><td>06/20/2020 7:35 PM EST</td><td></td><td> </td> 06/20/2020 07:35:[address] [facility] POCT GLUCOSE METER UNSOLICITED RESULTS <td>POCT GLUCOS E METER UNSOLICITED RESULTS</td><td>Routine</td><td>06/20/2020 5:12 PM EST</td><td></td><td> </td> 06/20/2020 05:12:[address] [facility] POCT GLUCOSE METER UNSOLICITED RESULTS <td>POCT GLUCOS E METER UNSOLICITED RESULTS</td><td>Routine</td><td>06/20/2020 2:14 PM EST</td><td></td><td> </td> 06/20/2020 02:14:[address] [facility] POCT GLUCOSE METER UNSOLICITED RESULTS <td>POCT GLUCOS E METER UNSOLICITED RESULTS</td><td>Routine</td><td>06/20/2020 7:28 AM EST</td><td></td><td> </td> 06/20/2020 07:28:[address] [facility] BASIC METABOLIC PANEL CALCIUM TOTAL <td>BASIC METABOLI C PANEL</td><td>Routine</td><td>06/20/2020 4:58 AM EST</td><td></td><td> </td> 06/20/2020 04:58:[address] [facility] BLOOD COUNT COMPLETE AUTO&AUTO DIFRNTL WBC COUNT <td>H C CBC W/ DIFFERENTIAL</td><td>Routine</td><td>06/20/2020 4:57 AM EST</td><td></td><td> </td> 06/20/2020 04:57:[address] [facility] POCT GLUCOSE METER UNSOLICITED RESULTS <td>POCT GLUCOS E METER UNSOLICITED RESULTS</td><td>Routine</td><td>06/19/2020 9:00 PM EST</td><td></td><td> </td> 06/19/2020 09:00:[address] [facility] POCT GLUCOSE METER UNSOLICITED RESULTS <td>POCT GLUCOS E METER UNSOLICITED RESULTS</td><td>Routine</td><td>06/19/2020 4:03 PM EST</td><td></td><td> </td> 06/19/2020 04:03:00 PM [facility] XR CHEST 1 VIEW <td>XR CHEST 1 VIEW</td><td> Routine</td><td>06/19/2020 12:14 PM EST</td><td></td><td> </td> 06/19/2020 12:14:01 PM [facility] POCT GLUCOSE METER UNSOLICITED RESULTS <td>POCT GLUCOS E METER UNSOLICITED RESULTS</td><td>Routine</td><td>06/19/2020 11:42 AM EST</td><td></td><td> </td> 06/19/2020 11:42:00 AM [facility] ECG TRANSESOPHAG R-T 2D W/PRB IMG ACQUISJ I&R <td>DANIELE</td><td>Routine</td><td>06/19/2020 10:54 AM EST</td><td></td><td> </td> 06/19/2020 10:54:14 AM [facility] BLOOD COUNT COMPLETE AUTO&AUTO DIFRNTL WBC COUNT <td>H C CBC W/ DIFFERENTIAL</td><td>Routine</td><td>06/19/2020 5:00 AM EST</td><td></td><td> </td> 06/19/2020 05:00:00 AM [facility] COMPREHENSIVE METABOLIC PANEL <td>COMPREHENSIVE METABO LIC PANEL</td><td>Routine</td><td>06/19/2020 5:00 AM EST</td><td></td><td> </td> 06/19/2020 05:00:[address] [facility] BASIC METABOLIC PANEL CALCIUM TOTAL <td>BASIC METABOLI C PANEL</td><td>Routine</td><td>06/19/2020 5:00 AM EST</td><td></td><td> </td> 06/19/2020 05:00:[address] [facility] Echocardiography Transesophageal W/Probe Place/Image Acq/Rep ort [...] PM EST</td><td></td><td> </td> 06/18/2020 09:21:[address] [facility] POCT GLUCOSE METER UNSOLICITED RESULTS <td>POCT GLUCOS E METER UNSOLICITED RESULTS</td><td>Routine</td><td>06/18/2020 4:08 PM EST</td><td></td><td> </td> 06/18/2020 04:08:[address] [facility] POCT GLUCOSE METER UNSOLICITED RESULTS <td>POCT GLUCOS E METER UNSOLICITED RESULTS</td><td>Routine</td><td>06/18/2020 11:27 AM EST</td><td></td><td> </td> 06/18/2020 11:27:[address] [facility] POCT GLUCOSE METER UNSOLICITED RESULTS <td>POCT GLUCOS E METER UNSOLICITED RESULTS</td><td>Routine</td><td>06/18/2020 7:20 AM EST</td><td></td><td> </td> 06/18/2020 07:20:[address] [facility] BLOOD COUNT COMPLETE AUTO&AUTO DIFRNTL WBC COUNT <td>H C CBC W/ DIFFERENTIAL</td><td>Routine</td><td>06/18/2020 4:30 AM EST</td><td></td><td> </td> 06/18/2020 04:30:[address] [facility] BASIC METABOLIC PANEL CALCIUM TOTAL <td>BASIC METABOLI C PANEL</td><td>Routine</td><td>06/18/2020 4:30 AM EST</td><td></td><td> </td> 06/18/2020 04:30:[address] [facility] POCT GLUCOSE METER UNSOLICITED RESULTS <td>POCT GLUCOS E METER UNSOLICITED RESULTS</td><td>Routine</td><td>06/17/2020 8:18 PM EST</td><td></td><td> </td> 06/17/2020 08:18:[address] [facility] POCT GLUCOSE METER UNSOLICITED RESULTS <td>POCT GLUCOS E METER UNSOLICITED RESULTS</td><td>Routine</td><td>06/17/2020 4:16 PM EST</td><td></td><td> </td> 06/17/2020 04:16:[address] [facility] POCT GLUCOSE METER UNSOLICITED RESULTS <td>POCT GLUCOS E METER UNSOLICITED RESULTS</td><td>Routine</td><td>06/17/2020 11:34 AM EST</td><td></td><td> </td> 06/17/2020 11:34:[address] [facility] POCT GLUCOSE METER UNSOLICITED RESULTS <td>POCT GLUCOS E METER UNSOLICITED RESULTS</td><td>Routine</td><td>06/17/2020 7:08 AM EST</td><td></td><td> </td> 06/17/2020 07:08:00 AM [facility] BLOOD COUNT COMPLETE AUTO&AUTO DIFRNTL WBC COUNT <td>H C CBC W/ DIFFERENTIAL</td><td>Routine</td><td>06/17/2020 5:00 AM EST</td><td></td><td> </td> 06/17/2020 05:00:00 AM [facility] C-REACTIVE PROTEIN HIGH SENSITIVITY <td>HIGH SENSITIVI TY CRP</td><td>Routine</td><td>06/17/2020 5:00 AM EST</td><td></td><td> </td> 06/17/2020 05:00:00 AM [facility] C-REACTIVE PROTEIN <td>C-REACTIVE PROTEIN</td>< td>Routine</td><td>06/17/2020 5:00 AM EST</td><td></td><td> </td> 06/17/2020 05:00:00 AM [facility] COMPREHENSIVE METABOLIC PANEL <td>COMPREHENSIVE METABO LIC PANEL</td><td>Routine</td><td>06/17/2020 5:00 AM EST</td><td></td><td> </td> 06/17/2020 05:00:00 AM [facility] POCT GLUCOSE METER UNSOLICITED RESULTS <td>POCT GLUCOS E METER UNSOLICITED RESULTS</td><td>Routine</td><td>06/16/2020 8:14 PM EST</td><td></td><td> </td> 06/16/2020 08:14:[address] [facility] CULTURE BACTERIAL BLOOD AEROBIC W/ID ISOLATES <td>BLOO D CULTURE</td><td>STAT</td><td>06/16/2020 4:21 PM EST</td><td></td><td></td> 06/16/2020 04:21:[address] [facility] CULTURE BACTERIAL BLOOD AEROBIC W/ID ISOLATES <td>BLOO D CULTURE</td><td>STAT</td><td>06/16/2020 4:21 PM EST</td><td></td><td></td> 06/16/2020 04:21:00 PM [facility] BLOOD COUNT COMPLETE AUTO&AUTO DIFRNTL WBC COUNT <td>H C CBC W/ DIFFERENTIAL</td><td>STAT</td><td>06/16/2020 4:21 PM EST</td><td></td><td> </td> 06/16/2020 04:21:00 PM [facility] MAGNESIUM <td>MAGNESIUM</td><td>STAT</ td><td>06/16/2020 4:21 PM EST</td><td></td><td> </td> 06/16/2020 04:21:00 PM [facility] COMPREHENSIVE METABOLIC PANEL <td>COMPREHENSIVE METABO LIC PANEL</td><td>STAT</td><td>06/16/2020 4:21 PM EST</td><td></td><td> </td> 06/16/2020 04:21:00 PM [facility] POCT GLUCOSE METER UNSOLICITED RESULTS <td>POCT GLUCOS E METER UNSOLICITED RESULTS</td><td>Routine</td><td>06/16/2020 3:30 PM EST</td><td></td><td> </td> 06/16/2020 03:30:00 PM [facility] 06/16/2020 12:00:00 AM [facility] Influenza-Like Illness (PCR) 06/16/2020 12:00:00 AM [facility] 06/16/2020 12:00:00 AM [facility] Influenza-Like Illness (PCR) 06/16/2020 12:00:00 AM [facility] 06/16/2020 12:00:00 AM [facility] Influenza-Like Illness (PCR) 06/16/2020 12:00:00 AM [facility] 06/16/2020 12:00:00 AM [facility] Influenza-Like Illness (PCR) 06/16/2020 12:00:00 AM [facility] Plain chest X-ray (procedure) 06/13/2020 11:25:00 AM [facility] Plain chest X-ray (procedure) 06/13/2020 11:25:00 AM [facility] Plain chest X-ray (procedure) 06/13/2020 11:25:00 AM [facility] Plain chest X-ray (procedure) 06/13/2020 11:25:00 AM [facility] Xray Shoulder complete LT 06/11/2020 04:06:00 PM [facility] Xray Shoulder complete LT 06/11/2020 04:06:00 PM [facility] Xray Shoulder complete LT 06/11/2020 04:06:00 PM [facility] Xray Shoulder complete LT 06/11/2020 04:06:00 PM [facility] Blood culture for bacteria, including anaerobic screen (proc edure) 06/10/2020 12:00:00 AM [facility] Blood culture for bacteria, including anaerobic screen (proc edure) 06/10/2020 12:00:00 AM [facility] l Blood culture for bacteria, including anaerobic screen (proc edure) 06/10/2020 12:00:00 AM [facility] l Blood culture for bacteria, including anaerobic screen (proc edure) 06/10/2020 12:00:00 AM [facility] Introduction of Other Anti-infective int o Peripheral Vein, Percutaneous Approach 06/08/2020 12:00:00 AM [facility] Introduction of Electrolytic and Water B alance Substance into Peripheral Vein, Percutaneous Approach 06/08/2020 12:00:00 AM [facility] Introduction of Other Therapeutic Substa nce into Peripheral Vein, Percutaneous Approach 06/08/2020 12:00:00 AM [facility] Introduction of Analgesics, Hypnotics, S edatives into Peripheral Vein, Percutaneous Approach 06/08/2020 12:00:00 AM [facility] Introduction of Other Anti-infective into Central Vein, Perc utaneous Approach 06/08/2020 [facility], External Approach 06/08/2020 12:00:00 AM [facility] l Insertion of Infusion Device into Upper Vein, Percutaneous A pproach 06/08/2020 12:00:00 AM [facility] l Introduction of Other Anti-infective int o Peripheral Vein, Percutaneous Approach 06/08/2020 12:00:00 AM [facility] Introduction of Electrolytic and Water B alance Substance into Peripheral Vein, Percutaneous Approach 06/08/2020 12:00:00 AM [facility] Introduction of Other Therapeutic Substa nce into Peripheral Vein, Percutaneous Approach 06/08/2020 12:00:00 AM [facility] Introduction of Analgesics, Hypnotics, S edatives into Peripheral Vein, Percutaneous Approach 06/08/2020 12:00:00 AM [facility] Introduction of Other Anti-infective into Central Vein, Perc utaneous Approach 06/08/2020 12:00:[facility] Electrical Activity, External Approach 06/08/2020 12:00:00 AM [facility] l Insertion of Infusion Device into Upper Vein, Percutaneous A pproach 06/08/2020 12:00:00 AM [facility] l Introduction of Other Anti-infective int o Peripheral Vein, Percutaneous Approach 06/08/2020 12:00:00 AM [facility] Introduction of Electrolytic and Water B alance Substance into Peripheral Vein, Percutaneous Approach 06/08/2020 12:00:00 AM [facility] Introduction of Other Therapeutic Substa nce into Peripheral Vein, Percutaneous Approach 06/08/2020 12:00:00 AM [facility] Introduction of Analgesics, Hypnotics, S edatives into Peripheral Vein, Percutaneous Approach 06/08/2020 12:00:00 AM [facility] Introduction of Other Anti-infective into Central Vein, Perc utaneous Approach 06/08/2020 12:00:00 AM [facility] Monitoring of Cardiac Electrical Activity, External Approach 06/08/2020 12:00:00 AM [facility] Insertion of Infusion Device into Upper Vein, Percutaneous A pproach 06/08/2020 12:00:[address] [facility] Ultrasonography of abdomen (procedure) 06/07/2020 10:4 9:00 AM [facility] Ultrasonography of abdomen (procedure) 06/07/2020 10:4 9:00 AM [facility] Ultrasonography of abdomen (procedure) 06/07/2020 10:4 9:00 AM [facility] Ultrasonography of abdomen (procedure) 06/07/2020 10:4 9:00 AM [facility] Echocardiography (procedure) 06/07/2020 10:27:00 AM [facility] Echocardiography (procedure) 06/07/2020 10:27:00 AM [facility] Echocardiography (procedure) 06/07/2020 10:27:00 AM [facility] Echocardiography (procedure) 06/07/2020 10:27:00 AM [facility] CT Abdomen without contrast 06/07/2020 03:36:00 AM [facility] CT Abdomen without contrast 06/07/2020 03:36:00 AM [facility] CT Abdomen without contrast 06/07/2020 03:36:00 AM [facility] CT Abdomen without contrast 06/07/2020 03:36:00 AM [facility] Computed tomography angiography of thorax (procedure) 06/06/2020 07:29:[address] [facility] Computed tomography angiography of thorax (procedure) 06/06/2020 07:29:[address] [facility] Computed tomography angiography of thorax (procedure) 06/06/2020 07:29:[address] [facility] Computed tomography angiography of thorax (procedure) 06/06/2020 07:29:[address] [facility] Computed tomography angiography of thorax (procedure) 06/06/2020 07:29:[address] [facility] Dual Lead Implantable Cardioverter-Defibrillator 06/06 12:00:00 AM EST [facility]) 06/06/2020 12:00:00 AM [facility] Influenza-Like Illness (PCR) 06/06/2020 12:00:00 AM [facility] Plain chest X-ray (procedure) 05/29/2020 02:34:00 PM [facility] Plain chest X-ray (procedure) 05/29/2020 02:34:00 PM [facility] Plain chest X-ray (procedure) 05/29/2020 02:34:00 PM [facility] Plain chest X-ray (procedure) 05/29/2020 02:34:00 PM [facility] Plain chest X-ray (procedure) 05/29/2020 02:34:00 PM [facility] Plain chest X-ray (procedure) 05/29/2020 02:34:00 PM [facility] Plain chest X-ray (procedure) 05/29/2020 02:34:00 PM [facility] Nucleic acid assay (procedure) 05/29/2020 12:00:00 AM [facility] Nucleic acid assay (procedure) 05/29/2020 12:00:00 AM [facility] Nucleic acid assay (procedure) 05/29/2020 12:00:00 AM [facility] Nucleic acid assay (procedure) 05/29/2020 12:00:00 AM [facility] Nucleic acid assay (procedure) 05/29/2020 12:00:00 AM [facility] Nucleic acid assay (procedure) 05/29/2020 12:00:00 AM [facility] Nucleic acid assay (procedure) 05/29/2020 12:00:00 AM [facility] Results ID Date Data Source [id number] 02/19/2021 06:59:00 PM EDT [facility] [address] [place] [address] PHONE: [phone] FAX: [phone] Name .................. : FRED Peck Acct Number.................. : [id number] [facility] ................. [facility] ................... : [id number] Stay type ............. : E/R Discharge Date......... ... : 02/19/21 Admit Date ......... : 02/19/21 Admit Phys .................... : LESIA PIMENTEL Date of ....... : 1960 Family Phys ................... : [facility] Phone .................. : [phone] Age ................................ : 60 Film# .................. .:[id number] Sex ................................. : M Unsigned transcriptions are preliminary reports and do not represent a medical or legal document SHOULDER COMP-2 OR MORE [facility] L [id number] COMPLETE:02/19/21 08:30 40002 Reason(s): Shoulder Injury RADIOGRAPHS OF THE LEFT [...] rce(s) Supporting Document(s) ID Date Data Source [id number] 02/19/2021 07:03:00 AM EDT [facility] 1 OrderSheet [facility] Emergency Department [address] [place] [address] Phone #: [phone] 02/19/2021 07:01 Patient: [...] rce(s) Supporting Document(s) ID Date Data Source [id number] 02/19/2021 07:03:00 AM EDT [facility] [facility] Medication Reconciliation Report [facility] Emergency Department [address] [place] [address] Phone #: ext- [phone] 02/19/2021 07:01 Patient: [...] rce(s) Supporting Document(s) ID Date Data Source [id number] 02/19/2021 07:03:00 AM EDT [facility] 1 Medication Administration Record [facility] Emergency Department [address] [place] [address] Phone #: ext- [phone] 02/19/2021 07:01 Patient: JAGJIT IBARRA Sex: M : 1960 Age: 60yWeight: 126.5 kgHeight/Length: 72 inBMI: 37.9ALLERGIES: Compazine, Flexeril, Procardia Date/Time Medication Administered Medication OrderedGiven HYDROCODONE-APAP (5-325MG) [PO] HYDROcodone-APAP08:37 02/19/2021 (ACETAMINOPHEN-HYDROCODONE) (5-325mg)PO 1 tab (HIGH Homar Little RN Dose: 1 tab PO MEDICATION) Name Value Range Interpretation Code Description Data Evelin rce(s) Supporting Document(s) ID Date Data Source [id number] 02/19/2021 07:03:00 AM EDT [facility] 1 General Instructions [facility] Emergency Department [address] [place] [address] Phone #: ext [phone] 02/19/2021 07:01 Patient: JAGJIT IBARRA Sex: M [...] to plan of care.Follow-up with: [facility], , , [address] [place] [address], [id number] Follow up in three days even if well. Call for an appointment. Reason for referral: evaluation, treatmentand MRI as needed. Summary of care provided to patient via paper. 2 General Instructions [facility] Emergency Department [address] [place] [address] Phone #: ext- [phone] 02/19/2021 07:01 Patient: JAGJIT IBARRA [facility] [id number] Sex: M : 1960 Age: 60y ADDITIONAL [...] arm that gets worse 3 General Instructions [facility] Emergency Department [address] [place] [address] Phone #: ext- [phone] 02/19/2021 07:01 - Patient: JAGJIT IBARRA Sex: M : 1960 Age: 60y Fingers become cold, blue, numb, or tingly Large amount of bruising of the shoulder or upper arm Fever or chills [phone] [place] [address]. All rights reserved. This information is not [...] protect it from movement. You may use vsry-gmy-ojvhtiv ibuprofen or naproxen to treat pain and [...] over the painful area 4 General Instructions [facility] Emergency Department [address] [place] [address] Phone #: ext- [phone] 02/19/2021 07:01 Patient: JAGJIT IBARRA Sex: M : 1960 Age: 60y Increasing pain or swelling at the joint Fever lasting 24 to 48 hours or chills, or as advised by your healthcare provider [phone] [employer]. [address] [place] [address]. All rights reserved. This information is not [...] over, and heavy lifting. You may use ttlo-xhz-jlwlfbq pain medicines to control pain, unless another [...] as you are able. 5 General Instructions [facility] Emergency Department [address] [place] [address] Phone #: ext- [phone] 02/19/2021 07:01 [id number] Sex: [facility] : 1960 Age: 60y Your [...] strength down the arm to the hand Rev. [address] [place] [address]. All rights reserved. This information is not intended as asubstitute for professional medical care. Always follow your healthcare professional's instructions. You have been given the following additional information: Shoulder Sprain Tendonitis Rotator Cuff Tear Rest until better. Do not work with left hand until better.(Electronically signed by Bang Graf M.D. 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 SEPSIS SCREEN NEGATIVE. [...] --07:08 02/19/21 Sydni Alberto.AllergiesCompazine.Flexeril.Procardia. --07:08 02/19/21 Sydni Alberto.SC OBLEMS: 2 Clinical Report - Nurses [facility] Emergency Department [address] [place] [address] Phone #: [phone] fay- [phone] 02/19/2021 07:01 Patient: JAGJIT IBARRA Sex: M [...] no barriers. 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 ([id number]). --08:51 02/19/21 Damon Little RN Patient returned from radiology by wheelchair with mask and surfacing technician. ([id number]). --08:55 02/19/21 Damon Little RN 09:24 02/19/21. [...] saturation: 98%. --10:09 02/19/21 [facility] Tech1. 4 Clinical Report - Nurses [facility] Emergency Department [address] [place] [address] Phone #: ext- [phone] 02/19/2021 07:01 Patient: JAGJIT IBARRA Sex: M : 1960 Age: 60yDISPOSITION / DISCHARGE 10:44 02/19/21. BP: 163/91. HR: 90. RR: 18. O2 saturation: 99%. Temp: 98.2 F. Pain level now 03/04. --10:44 02/19/21 [facility], [facility] Tech1 10:52 02/19/21. Departure time: 10:52 02/19/2021. Condition at departure: unchanged. No learning barriers present. Discharge instructions provided and reviewed with the patient. Reviewed medication(s) (no changes). Reviewed rest instructions (alternate heat). Reviewed referral to an orthopedic surgeon. Patient verbalized understanding. Written instructions provided in Dominican. The patient was discharged by the physician. He was discharged home. He left ambulatory and via private vehicle. Patient driving. --10:57 02/19/21 Damon Little RN.Locked/Released at 02/19/2021 11:33 by Damon Little RN Name Value Range Interpretation Code Description Data Evelin rce(s) Supporting Document(s) ID Date Data Source [id number] 02/19/2021 07:03:00 AM EDT [facility] 1 Clinical Report - Physicians/Mid Levels [facility] Emergency Department [address] [place] [address] Phone #: ext- [phone] 02/19/2021 07:01 Patient: [...] himself on side handle; pt went to [place] at football game yesterday w/o much pain, [...] 05/2020. 2 Clinical Report - Physicians/Mid Levels [facility] Emergency Department [address] [place] [address] Phone #: ext- [phone] 02/19/2021 07:01 Patient: [...] were 3 Clinical Report - Physicians/Mid Levels [facility] Emergency Department [address] [place] [address] Phone #: ext- [phone] 02/19/2021 07:01 Patient: [...] day. 4 Clinical Report - Physicians/Mid Levels [facility] Emergency Department [address] [place] [address] Phone #: ext- [phone] 02/19/2021 07:01 Patient: [...] plan of care. Follow-up with: [facility], , , [address] [place] [address], [phone] Follow up in three days even if well. Call for an appointment. Reason for referral: evaluation, treatment and MRI as needed. Summary of care provided to patient via paper.(Electronically signed by Bang Graf M.D. 02/19/2021 12:48) Name Value Range Interpretation Code Description Data Evelin rce(s) Supporting Document(s) ID Date Data Source [id number] 10/23/2020 03:34:00 PM EDT [facility] Name Value Range Interpretation Code Description Data Evelin rce(s) Supporting Document(s) SARS coronavirus 2 RNA [Presence] in Res piratory specimen by PARMJIT with probe detection NEGATIVE [facility] This lab was ordered by [facility] a nd reported by [facility]. ID Date Data Source [id number] 09/06/2020 02:00:00 PM EDT [facility]) Name Value Range Interpretation Code Description Data Evelin rce(s) Supporting Document(s) [facility] Laboratory test result [facility]) ID Date Data Source [id number] 08/26/2020 12:29:[address] [facility] Name Value Range Interpretation Code Description Data Evelin rce(s) Supporting Document(s) Progress Notes [facility] DWOELu3uIaPOUkJh02/XFOyzVOSbu0HtCQssYTt0TSjqJRTdA6DwQKS7uR5nPDZ6SKnMXkBtJeQbVHJc lbm [file] GfhAdlBAXVLka6HVQMFuReLW8PKAg= ID Date Data Source [id number] 08/26/2020 12:28:43 PM EDT [facility] Name Value Range Interpretation Code Description Data Evelin rce(s) Supporting Document(s) Progress Notes [facility] LUYXOr6iNlJOFoRj94/YFRvdQJTmq3AkHJqlVLn4WEnbTRKgL3DpLYU2tV6nQFY4MCjLCrMwIbOdKWUn lbm [file] DWKxQhMkTZI3VSY+OB8yJOd+Pm0Ev4OkvzZ4oqOfOWv9Iyo3TBynKCADIp7P ID Date Data Source [id number] 08/01/2020 09:04:00 PM EST [facility] Name Value Range Interpretation Code Description Data Evelin rce(s) Supporting Document(s) [facility] Laboratory test result [facility]) ID Date Data Source [id number] 07/17/2020 08:21:04 AM EST [facility] Name Value Range Interpretation Code Description Data Evelin rce(s) Supporting Document(s) Progress Notes [facility] NDZOTm8cEdKUAfKb81/XQBldMORmm0VvNVvkWHr3CZtwQYWtK1VpMZT9nD4vEEZ5CIaMGcJpDjYrTiCh lbm [file] AgICAgICAgICAgICAgICAgICAgICAgICAgICAgICAg QZKvSPZzFLUgBTGvXIJqNJIwGDEaKBVwUCThVHBsGXAtUJOoUBGcSAHnIYWyEKTeBNAmIPZvGT8BAKHd ICAgICAgICAgICAgICAgICAgICAgICAgICAgICAgICAgICAgICAgICAgICAgICAgICAgICAgICAgICAg ICAgICAgICAgICAgICAgICAgICAgICAgICAgICAgIC KrEPOfOH0LSSMyYCPhDYOiSPFaLYZyAVEcRNEbRXOjMLFhTXBbHXDbFGIbKWJeRILaFREhKIJcQXQqAT PdRGOxCBJpIAVnSVByJZBaQGZsSYNrVMQjDFNeTTRfDFUuRXXvSRIkZZGwYFBmXU7JKIPcWCYfTTIyZN AgICAgICAgICAgICAgICAgICAgICAgICAgICAgICAg MUErONZxGLYdIVRgYACoMGQmOOOnRFEiVVUaNPLhECQpZVLhAWUgYBNkRCUpAGQxMLUeFHMdLKFsGN1K ICAgICAgICAgICAgICAgICAgICAgICAgICAgICAgICAgICAgICAgICAgICAgICAgICAgICAgICAgICAg ICAgICAgICAgICAgICAgICAgICAgICAgICAgICAgIC ImKQMgCELcAP7NHUHgQUSwSZUaGVNoMJKaTOEfEMWmUTWvUENwLBZgJBKpVISxJELsIMLrIDKcFWGgKS XoTVXqJSAeEMGrDOCfNEYzVWYoHUBnHJPzGKHiYHAdZJRpEUWcNAJiKXByIKLzVDPxDS2YLKLyHUFbZH AgICAgICAgICAgICAgICAgICAgICAgICAgICAgICAg ICAgICAgICAgICAgICAgICAgICAgICAgICAgICAgICAgICAgICAgICAgICAgICAgICAgICAgICAgICAg HE8JVPWlUDBiOXVgRDVyTKUyKXMhHVLmIGArJMMaCCFmQNVpSWZhSXElCJLgTKAnDQVjRUVqXOVpMBEv ICAgICAgICAgICAgICAgICAgICAgICAgICAgICAgIC QxTSHuBVOvEAPoLD8INDZaQUJcZQQvOTKsQNQcBJNpFIXfSUTaWQFiMWZiBSFqUHKrTDZiTGJfTJZuAK WrCLSsRSErYEChBBRhLHPlNLMrLTIwJBAmVBNxVHFnLYFmAMBbLEBiFLUxTWMwZHEbRQHhFW6ZKI86kS Yqo5F6NBGgGW9alcs/Al3EJJdsowMkiAWlZC4ZHjFi AR4laf1UYwGfGA9lmm8LUZsWBbQsD1H4bHFvCZWcDPQIGqLdH67dVMgpYy64YWizLAFoSeXjZCh7Eg4T ReJyE3ocFWVjAtL2BLJhZbY1JHEhPxF0ZUBlPzNsHUQtTCZiRPNaEMROXUR8TWXtCpAaAhXgFGMfTIqu AAGNPE8EClMjJ7TojF79FGbFId4+DQplbmRvYmoNCj V3RKXrj6MqDYa9JQ9UNOVcSxcmg7JnSVAfWRAZBRqsYC5FNDD6KIK2XPQjUd8CTGVhA561luMbZB6PXz 7AGyBhIP5ewc0BQPMuZVQgEppNLqi0QLedLW5TuMDxVElOpq6ipqSqfaRIy7TxvuCgfRNXa8qlJWXeHO IxcMViJX8YFAO6AZIiCQdbHeRfUWIkZMlgVeSRLAgQ OiVmN3Hfx1FoDoA8MBDcJkPrRHdtBXZtPuH2AF38qPytPD8BJEMeEZMdZM26DVW5LXSqOb0KUb6GMeMo MN3jfc3JMBMpSQHpYdeJHef7WWyeQP8OpGUbV9RmxHVne7hSIcWuR1GVZZUaUYUwJx5USHRzPwGlGSGo JAjrQY1dDPLwGVHHzIjdwvG1AZ4ASZ0dihCkXS1CDs HkTi8xQg5TYoOxR8ZoS2EwJJSuUAHRUWheJY4NCUizFO9cGO1Np7CZoIKkqZ8xvl7SODRpOCMvHqvftb 4ILjfwA2D8tKplQVAlPPQiDHQZGDnqRP9XNEMhCNQ3XXQ3OoIaWOPWQtBaB60qAW3WP3Bfn75lNpN9LC EvFtUeBWjnFH46dCzhgpCyzCMrxLyiLG7UKi9+DQpl noIeZyvVQhcqJIRYGfBwADnFOsZoBJQiNJTsHMYeFnP9QvQaNe0YLCWmODBxLLSsGfBsSTIiMLWkSTwb XBAiKFD2AiE2KLQrLGWhCZ5XXeBpNJBfCMlrBACjYHUbKXMcyr9BMRPwOOJyAVG4RwTgHHEbOCMoWZmq GYQcNACcUqP8EWSvLWBpXC0SIgJnIZTqBYL3GtmbEX EdVHGlup3JORTrPZGkQQG2QTXlBZSvYKGrWXhoHTHfMEH1Vgh3XNDoLHQoJG3RZlUxJMChDJQ5YTCkDV CiFVClhs2PQJBlWQOvRcCmWEIcOPCnDQSoNAdyRMOuKZW4ZiE9ZADeQDQfVU1BCsEjONEkWPG5CiPwZA ErTJRtmn6TWZQtOLMxIQE3XKAhIXXyMRPzWZcwZCBz JBH2LFU2ERFoEOSfYK3HFuTbVATpCHk6VqYlHEZcOMLmva3UBLCfBGBlKIh6RNRwQOZnDZRkWVqcUPZx EHTkQtX6IENqENRjTP8YYtNcBHFoKIA0LYLjFBIvLIGlbf5DPIBgCMTsBWJ4OxKiWQMoMCXiDOtoAGSp BJU9XXa7CQIiXSUxZU4FCzAhJVLwWYM9RGwfDESxDK Xuon9AROBqHEYtXZB6UBUnAHXuSRCqHUdtAWJaTGQ6OXO0CPZvVWMzIU2ALoUzQMIlJEK6QUxeFPRfBF Qjwt0TIBMjZKNvHtKoQQXoDOSoOSKiRUzmQMGlEXA3FOs3QUGtOUYbFY5EWmOyUIVuVtf7RibrCHYnRE Crpo1ARONbZIXxKVi9NpQfGCGeQHVzIFymBBJhIQIn DAUmCGAuVKUfCK1NOpNpBSMtPzQgRVNoKISzTPNual1ONEJjBLYvFAF5RZKpIZBjBEUbEFnwLRQvPFIg CjwdWEGzAIIoHR7COeUnFEQlCtC1WUQkWZVfQQNmcu7RDWCaBGLaOWp1RKOvYWQiHGCkBKyeLTFdXOKv JlKsXJNrHPLoTB2FHvSkVSVyXpB2ICauFZHfGKMmfp 8KQGEqSWRsWeH7KRCqUQWsRFWgDQauEVSdSWD6YbreYXPhIGBnAQ2NJyLmCMFkXTX0ZOXbVZJmABRuvz 5MWHNxITK8KnxsJZLnJGNoWRZqEGciORGhFIH7BAW5YVQgIQWcFA3OFyFzQADuAPjxRXLsLNXyGIImci 8LLWRqMFC4Yju1HjFyUDCsNNOmALscYVAcOPL7LfG6 KUCmGFUfJX7QAhIlVVRnEGubZYdpLPVlKXKcnx7JVFZvUJU3CAA7MRYcFNZeVFNzDDy6dtXesUIxNYu8 BP7YK2EeriYlGKfUGv4Mv088OSQ1POQwSd7VI4doXt0zJUOdOQJEQl2ASIk2W9Y6LXTaHIf9XMJoQpAy MjgzZDFkNmYwMjMwZTFkMTI+CDbmKJK3DGS8CFC8IJ J1CTCqQARrUIX9ElPqNuSuKMIeNr5aOTMCLu0+KTwnkUNthZmeRDRWKyE1Gca8YHgcBTZPVi5Z ID Date Data Source [id number] 07/17/2020 08:20:49 AM EST [facility] Name Value Range Interpretation Code Description Data Evelin rce(s) Supporting Document(s) Progress Notes [facility] DXKSTe7vGvRHYdRe01/UXDxfXHMmi1BbDWeiAFn2WQokHPOzW1WkPWQ7yJ0iMRX6CCnBCrLuIfTpPeFd lbm [file] Devil [file] ICAgICAgICAgICAgICAgICAgICAgICAgICAgICAgIC AgICAgICAgICAgICAgICAgICAgICAgICAgICAgICAgICAgICAgICAgICAgICAgICAgICAgICAgICANCi AgICAgICAgICAgICAgICAgICAgICAgICAgICAgICAgICAgICAgICAgICAgICAgICAgICAgICAgICAgIC AgICAgICAgICAgICAgICAgICAgICAgICAgICAgICAg ICAgICAgICANCiAgICAgICAgICAgICAgICAgICAgICAgICAgICAgICAgICAgICAgICAgICAgICAgICAg ICAgICAgICAgICAgICAgICAgICAgICAgICAgICAgICAgICAgICAgICAgICAgICAgICANCiAgICAgICAg ICAgICAgICAgICAgICAgICAgICAgICAgICAgICAgIC AgICAgICAgICAgICAgICAgICAgICAgICAgICAgICAgICAgICAgICAgICAgICAgICAgICAgICAgICAgIC ANCiAgICAgICAgICAgICAgICAgICAgICAgICAgICAgICAgICAgICAgICAgICAgICAgICAgICAgICAgIC AgICAgICAgICAgICAgICAgICAgICAgICAgICAgICAg ICAgICAgICAgICANCiAgICAgICAgICAgICAgICAgICAgICAgICAgICAgICAgICAgICAgICAgICAgICAg ICAgICAgICAgICAgICAgICAgICAgICAgICAgICAgICAgICAgICAgICAgICAgICAgICAgICANCiAgICAg ICAgICAgICAgICAgICAgICAgICAgICAgICAgICAgIC AgICAgICAgICAgICAgICAgICAgICAgICAgICAgICAgICAgICAgICAgICAgICAgICAgICAgICAgICAgIC AgICANCiAgICAgICAgICAgICAgICAgICAgICAgICAgICAgICAgICAgICAgICAgICAgICAgICAgICAgIC AgICAgICAgICAgICAgICAgICAgICAgICAgICAgICAg ICAgICAgICAgICAgICANCiAgICAgICAgICAgICAgICAgICAgICAgICAgICAgICAgICAgICAgICAgICAg ICAgICAgICAgICAgICAgICAgICAgICAgICAgICAgICAgICAgICAgICAgICAgICAgICAgICAgICANCiAg ICAgICAgICAgICAgICAgICAgICAgICAgICAgICAgIC AgICAgICAgICAgICAgICAgICAgICAgICAgICAgICAgICAgICAgICAgICAgICAgICAgICAgICAgICAgIC AgICAgICANCjw/yQMyY2kegQKzuuK7C2qcWl5ADn1GMM2ro7GoEBOhZEmsxlXdUlrBGyPpGENoLxgWUp y2NPvlTJ5UlHArC9RcC0FxZYdbEY4TPZFkPRGmuEXt DWXmOECwDbT9BFZyRPmsMM1AeVVpRSvtDAEiXLIiVgDeOLWaMLKxCPWzLIUoCASIZK2NHvQoP2QgsW94 IDQNCj4+JIiifhTyInnYQxSqXKNak8QmBJx3UZ2NSIOzWmyeg4FiNoYvETCBWQfaSB8BXWO4GKYhEPSl Ab1XEBNkT936yfOyDJ3XRt0UEaWfAP4jtr0QUcEpPR LvJpjWMei9ENvvOG7NsXGxLQhSba5rezTgouICu6DgbmHcbHMSTQXqy8VoEO9fedStuhSvcUVcFUSELD G0QCHoTEhwCnNwYYHyZQhzYVXZHQdIVqPrQ9Eez4IqNkP6WBJpJfDkKSytLUYjJjY9KZ44wBxkUM7IIO AzEFAwDJ75ZQDwIMNtIr5PDm1VOfSvNK5nio8MXuNl HITtPkiOMbe7CPzcPW6VjGFkD8LnjRFqf8eSHvJyI4NCVKT6RUMgYu6IDOZdBzPgKRZjITilTY1kMGPh AXSRvJpvkyG8AR6COC8zpdIhLR6VNdOrIn2pCj2VLvEeC2TjW6JcAEReBOIVDQckCN3IQQcdLP4vAW9P m5AQdROojR9ugd7JHCDhPAWhJevuqs0KBruyY0U6kD psFHCeLaCsRKCQTNteWX5CXJYiMGZ6LRBwTSKrPWIPFxJkZ32eZT2FO0Glr32iEeZ2DMAxJgRlWUbsXP 56aGqjdmOaqIGrsLoiDZ5RHd9+RQsimdUgRtnZIxueNPYSMfJmOjHAGjApTCVcGNTjXBSeOeL1LfHhHl 3UUBTmDGQvBQXnAiYvPJEbLJSjPRbdHWTjBIM2VEHf AOCiMKXaEW2CWtPyUVDfRvg4WFZiUIWyBQWtjh5HGELwHCZgVRN8KnBtPNSkHHHoYOpoABSjPURnFsx6 DBQlNPHbPI8SXfKbCQVmNDX5FAZwOVYlHENtsx9WPYNcSZUnNVGcMHWhULOxSFYzESbdKMKxTOA2LTX7 ZMAaUZUsAX1XQcZcCYWdIWa3DYBhJUOwJREiwq1VTE LdFEBlDxg9NmHzVUUlIFJlEQgfHXTqEFX4RHExVDYvKNYbXQ4DDrDhGZXqZTezUDopBCVdAUAqmg2RWX WxPQNbEIM7SHOdVRNxJSCqLTagPGGoGWXfSZpnVZEgOFWwVO2BZrIcWAVkKWQ8XeixKJLqQAZpuy4LOM RrVVYcFNFlDEFuLYWuIKQiNEixILScWFMsKDU9GDZz SZMwMH3AQcFjBYBgVPMfSHnlMVObPLYxsa0JDVMyCPPpSVC5UqVyKXRgTSVfZWppUQDtXHP1PrqhJNFk RJQbQS1XBaFeVKQnHrF6RPBsGBXvGTEyuh7DGXFcQIBeOYJsLpDzAKMoWHTrVIkcYUZeGLL2RuV1TYLv UMEkCD0PTkKnHJZtScOxVANvQLThEMQahu2BTXXbYJ AfLeMdJfNoSBOiCPWaLEmyCUMvXIU9ZBioZLEgMJHkCM9UKcCxWYQpBbq6GxHjROZiTHCxmv9AYBEyJB EsQexfQmBxLNQuWTEcNOhwXVDtEDY6TCdiWGHmSTJkJL5DLwSrZAXcZhksDJYwOCWlATHbic5RDTSqIO DxJLa9OEFaXCQbNNXkIOeoCQOhFXT6MSDgYHKpMMHg HO0YQzYhXAGdCgo0MUYlSHMwCDAmnu9DbMJhkCbycj6GSUiXPb2TxMqcDCO2TQijFr3vcQMoGqLqAKFD Nl5RlnIsWRDySCARTAllTMPmMWVpStEqQAMxRDueMjFqTyfaRVBtJ0AqFdpaQQU8QkemXlP9TtBpBcOx WaK7VWTlXiCfJEK0GDZkC1ZvOYR6DRznJQK+IF0g DQo+Cp7Jy5TkurZ6ivHzIUamGHIcQS4NKXIEJ0RYMb== ID Date Data Source [id number] 07/15/2020 11:51:[address] [facility] Name Value Range Interpretation Code Description Data Evelin rce(s) Supporting Document(s) Nursing Note [facility] LHICEc2hQwPXLpEc64/LIQufHJLzm9JtPFgjZYp4CKeaLDDuZ0YjFBK8zO5jFZY1WJjAWePcLxVpAtSs lbm [file] DQo= ID Date Data Source [id number] 07/15/2020 11:38:[address] [facility] Name Value Range Interpretation Code Description Data Evelin rce(s) Supporting Document(s) Discharge Summary [facility] BEBVZt3yFcDBHfNc15/QVJowKFLls8BxBUtjLSk8DSspALMiO2GxFKO2eS0pUQI6NVaZNuZoOiTeOlXv lbm MaUifNLtCgOEXjCuuQGvKjLNzdPhzguCWqUN9XiXR8TPTsU85rKHWtYZHfO1AoLPYyITT+Vz1AMMMgcK UgDT8FFyrV0Gjaw9p2KC6wyA+Xxr2VDnHweGIjOXqEImfKMl5yoU/pIltMxBM8fcStQ/zfjzIlW9+Vvc jj6iZU6nI0pof474gzVL4pwIf//sRKYbLZldke7raH han9P64/D5Eaed0y7k0ELvdbuUD9aDEoC/BsegW1oLcvG/DIqXZBQ5zXRxmILavm8ttO3nJm7kwdNw7N 980n3wRhcNf1u4DMYIj8XypHV2q+YhztDCfWUc2uFtiRR4PHF2/Cu4NOkXjZCmJSsTSucUoIoaDLSNSx aPYgN3HU2y6EK4DLf1DTWHAu8hr9PRdPjtbMrF7MZi 65iZL2bM1qRS13XuteyMkZr7HZHvDtI8mffY7e0Q+QOxZ7BwmxD8TEP9WiP45phHYlbnjFVgDV2yR1HP ScSYYq8relRzEEc5xgeEnTwspiHm4xlBStNwZQh3fbP/pknMs9qCk2+OiajOC6URnNgN48Sa0/qd210q jnSeobylsdFrypevxFngBjR8qolisCTBfpsCy5As1Y [file] ICAgICAgICAgICAgICAgICAgICAgICAgICAgICAgICAgICAgICAgICAgICAgICAgICAgICAgICAgICAg CLIxPSBkIWQyDXClYXAtXGCmTQMsNLJnDOCiBREeWASyRR7ORCXvYMBiRZDzQFRsSSPwLDXfBXBqZXUb ICAgICAgICAgICAgICAgICAgICAgICAgICAgICAgIC KbONVpHJYcQWKbWIIbNZOcYRTtNGHsJTWeSGAmYVFmVLIxMSVkVPWsGNAyBT0CGNUxXQJmJPJvBSSmKY AgICAgICAgICAgICAgICAgICAgICAgICAgICAgICAgICAgICAgICAgICAgICAgICAgICAgICAgICAgIC ZzVRIyHAOyRVHhLMAfXWGgLLXoZEEqQXTvIS5SZMGc ICAgICAgICAgICAgICAgICAgICAgICAgICAgICAgICAgICAgICAgICAgICAgICAgICAgICAgICAgICAg AONuKPGjNUEpJCYhFIOiOVYbXSIbEWPhZBFjMKKgZBDzMAWtEA2TYVZcXUHbCOYcLFFlRGOaKJReIXAm ICAgICAgICAgICAgICAgICAgICAgICAgICAgICAgIC KqLWZcPOVgESMrBEJnAADhBANoCGDtEFTuFEJsMQIfXBPfZCWmYBMkIDQmWXWcXO2EVQCbYUCfGDLgTR AgICAgICAgICAgICAgICAgICAgICAgICAgICAgICAgICAgICAgICAgICAgICAgICAgICAgICAgICAgIC DxKBUaRRRjKYZdLSNhHBFbJIVwITXmTRWjRLIfGJ7H ICAgICAgICAgICAgICAgICAgICAgICAgICAgICAgICAgICAgICAgICAgICAgICAgICAgICAgICAgICAg CYYwPWLrRYIyQFZdTZYlLAXpEZQmPQEpSOQwCGLbNPWiQQCdSEXsZP1ZXMFxUTEwTZEyZBQwWABvEBEg ICAgICAgICAgICAgICAgICAgICAgICAgICAgICAgIC ZcRGJvZFZnQMVcXKJhINYjNVMyRNMlTBYoTWBsALPuXSYrNEWoMVTsMTVqSZDqHXMxVN6GJGZpTHCpKN AgICAgICAgICAgICAgICAgICAgICAgICAgICAgICAgICAgICAgICAgICAgICAgICAgICAgICAgICAgIC AgICAgICAgICAgICAgICAgICAgICAgICAgICAgICAg IV0QTDIrRXLiFLGjXFTxPTTtCWXtEEBnAXYxGPQnDQFvLQPdELDmURGfBBNkKLVxRPLbAEKrGWBhSTHx IACwUDZqGSIcYPFaDIGaOOGaVKAvJQPrNAWlVOAgWCBmTZTlESHhRHWxNR1XVG41bJJix3N0WNOjTQ9v dyc/Xx5FVYwhvzBtnHZdUZ6TTiQuMB9jtr9LIrCsCS 1jmp4BYQsFRnWlK5R4zHUqBFYzVLULBrXtJ60wTSfqFo10EMyzRRGsYmIrLCi0No7ELqEiJ2pxPOZvEk C4KBBgSaWxIFkoAH6Lp8GwbZWmUAx+Ck6WQH0qt4UwAJozZOXzBP0ecw2DJWiTEsMqT2FhyjM8LWS0HF HbNu2RGKRlMQEpjPIkCrEqGQUSEfSpV5WknF61NMYK Cj4+GPyabsPxJjnCTnZ3XNVur3CfMBm6IX4UJITxMSo6zFPoRXghB4knkivfOAT2tM8blpmuZmqgWkQ2 EByhoq7mXVOmOjhwJQKuSMTwYj1kZX2qBNEfLLSaEaJ5KGEMKB7LPVWjMDVzpLUtJDBdFUWAYD7BZGms PKU0PnolycStrMTeGBqlPC6NGVYvxuNuFqYiQGLHFS o+Zt4TRC8au4XtWZruKcNlMN0ppp4PQMbJAvRxS6K8fTDaV0N2PZywQy8VHNDaNHYjIjWkBDMUWSlmUT 6YUH5mjdH7DV2NqXNcEFNiDDAhzACbELp0J09tgYQvBXddWZ2PRDU+Yadira+Xy6WVRBwSTVrBSXgQvFkNH ZQHnCsQ9YtU1VTm7WpK9XaWE84tStczsBqMVrqOH5Q EN0rZYIxINPYQT8DeFSvaI0xusNwCBKuSOJJFrFkG74pqTAlHUBnNUF9VFAhMh0ADCSmI3XtavKinAbp djHbYENsCHIGEX2RJPbzuvDycGMtrPsqNA93rKxxOK7RHs4DRfMmNH1ddy2LwKWfCg7IHVGbMC9FKSCs UUAhNDTnTSJ9THMpTnHoYQygUCIkUDOiHYP5WWUgKA HrAH8BQoStZOSnVtWxQVWyMOXwORKbzh0ARLTyLPPgHNo4FrYeLYUkKUUzGZawFCFpKIBtEVD6GGUgDL EoAF8IHtXaNSOxHAY2QgHgHBZxIUXnmz8TMBNiVGTwSLFrQnNyRGRrUZIjNHxkQCEoCEBmVPg3VQHyXO CvDL3MTpYcXJDxBRR8UJVwNZErZMGfao9DPAMjYFHc Xhj5ARZsUUPtWEHfYPphMUVkGNCvZAEaBNExCPAnUQ2QMoUzOELpNPRqLampDEIqKHVazm9NDHGvWKGo MZPbZMWkFUAyJGPpICupMYIrAXK6PwM5DPWiDIEsRA8GQmNgWUZvIKA3ZZRtODJyEUFxok1TPXRvZNFg TiM1JfDlYTDuJURdMOtvBKDeEYQ1ZGKsJNPnFHRfKC 4XPfNsQGRaTZw1DtviNCUcDCEnsu4SBXBxTMJaYUOiUrGzSHDkKGHsGBgsGQDvPYE8ZrHnLGVfRBGiUL 8MZvOyPRAnBHw6EIJhFBFjWQWbxr9YEKSfIWNsGExuXtVyQEQaPZGxAZvhOALaOSMvGCM8FCGcAKUwNK 6QBjVlZAQgVyEsSTAzZWWzPEYohs3QATStHIVyGBJl ImXgLQDyFDPkEBqiTSPbZKPjQJOnTMMfSOGvVM0UJgEfIVVmIxIbCwUhTVEbQZLvti8BIVMnBREyPzB3 GtIeHYXjSDLfVCg8ycLwpWSyPLo1SF2UI4NpetFdUkcNPq8Dq849DED3OOAeJn9RI7wfPd1oABAdOGIG Ix3XKGp8PxM2FKKySzRmPxF3KnVhBTW3HCL3GKS4GD G9PcY9PnB+XXw5IfScWsIdFRKmEbQ1DfEsWUh3CtGlYMr8NkPmHzVlZX0xZDXJJx9+DQpzdGFydHhyZW NCSoCoHPY7ONkwAFUYWb4S ID Date Data Source [id number] 07/15/2020 11:19:[address] [facility] Name Value Range Interpretation Code Description Data Evelin rce(s) Supporting Document(s) Progress Notes [facility] ZNLXAa3jCiWBEgAj95/HJHcvJIMja2GxOPakOEx0JNbzGKCzT6VaITY5gQ2mWAO7LNvZAmLfToIcNkYu lbm [file] ICAgICAgICAgICAgICAgICAgICAgICAgICAgICAgIC HmXUMhBJHzXCZvYFVcSWSlATKuJHEmQYYbZETeVCEmGBZgGXIpJFZaJD6ECFYxGJDwWVJhDXPuFEAkNC AgICAgICAgICAgICAgICAgICAgICAgICAgICAgICAgICAgICAgICAgICAgICAgICAgICAgICAgICAgIC XxNPWwKSJxTTFbTCMgCKJpWAYjGFAyPP5NOVEnUCOi ICAgICAgICAgICAgICAgICAgICAgICAgICAgICAgICAgICAgICAgICAgICAgICAgICAgICAgICAgICAg WZHsPHVrPUMoGZUsYGEiMBVdWBXwBKMuADApUXAmEBSzHW6UMRUwPYRuQXIeSRDzTAWcEMYxVHFvXLQj ICAgICAgICAgICAgICAgICAgICAgICAgICAgICAgIC HhPWDrOSRzJGXkOYKsVIGsANOjMQMkYFZzFYHpWYAkDOGlOTZrTEAeXURbYU6BTSPeXEKkEYSeDGZeKV AgICAgICAgICAgICAgICAgICAgICAgICAgICAgICAgICAgICAgICAgICAgICAgICAgICAgICAgICAgIC PnBABnNHWfBYJfCGRkXNXeLYDdHLQySCRhAS2KGGXg ICAgICAgICAgICAgICAgICAgICAgICAgICAgICAgICAgICAgICAgICAgICAgICAgICAgICAgICAgICAg IFLhYIYuPHOmECQvHYQxNKEoGRQgTGZiPYTyYQSdAOEfNLRyMU5WOBMzBPVnWFPzTUGeAGWjJCFjHLAz ICAgICAgICAgICAgICAgICAgICAgICAgICAgICAgIC PqSHGxOUUfGKHvHMRlGMMeHIZbDRYlLFHaMIKrMKScYSEuDOHyCEJiQXUmIREkUV6UZZCoPPRtLVPgYI AgICAgICAgICAgICAgICAgICAgICAgICAgICAgICAgICAgICAgICAgICAgICAgICAgICAgICAgICAgIC YlDVRaCOFrQADfIRNgEGBwLMWuBFGbZTIpLQNxPQ7Z ICAgICAgICAgICAgICAgICAgICAgICAgICAgICAgICAgICAgICAgICAgICAgICAgICAgICAgICAgICAg RQIfTHYhOUKxOYFhCYSeXXThOOIpQNZkJLAqJLBqGBCyCOOfQVIvFR5STIFwOCZaGEDuCDOmCYJmZEZz ICAgICAgICAgICAgICAgICAgICAgICAgICAgICAgIC QkWTMxJTTnBQVnVLLoOZGnUYCdXUDqWHPoABFaBKTrYBBgOYKiDHMsSERqNDBdJQBaMQ2RNA35oNVok4 Q1KGRkCN4lrvt/Ko4XMEoitdKxxWRcCH9VYxKpMZ1snk9RKuKuPV3ggb3XPXcEIeRtV8L9kJVrNTWbSR LPLzGoX60nWUgcUr64OBulVHQnHpRuOXy5Au4KSeDz H1xvGLGaAnN5MOZzVuN1MEXoUmH6KFUnQtMxHXOuTUBfFP2BASHdF125caXyKE1FLv2WLkKcNB3ldf6A VGHjUSSbJclMIks3YVkhTL5NkXDaxLD3JJWrQNJIZsFzT9mpd6JeLFUkITMLWAyyQE7Cj0BjnMJcJVi+ Pu2CXQ1kl1KhCYu3LWNnVE9cvh2AATdREzLfA8ZviV dhKYIbg1laONQyFS5afZXxXEI8AA5hsFjwzOHFCO4voHNna5k7OVzjIYORXIKziRAqVkYxWbDoGfOjAW L3CPFyYI8iLDmvLJ2HQKY1NSkqJVNbOOVqH2rTYfHnNXpnWVZlqAbrLR7MItOgS7RuwfWmkCY6JSNoZN INCj4+NXrmtwGyRkrJSzSyIBHgn0AvHSj7YS5EPXLz NRngXP2HHNQotK7zLIeeOA9HJaLbIQFkBOWUJhQpE41rcVXbLKg7Q2QyMeSvOETrAtuhTKIkXCvfPfYu ZXMgWyBdDQogID4+ID4+LYfqFK7BHVumsnTeIUKsEb2LZXIyDVPkWU1jBFHgOFHcF5L9cKfwRCCKYxQd I6pnfjfrKQ8eAWBxM273dNpcktOdRZLsWFUmEj2YNN AhTYH2LSLhqWQjZqrzWZTDDIhcSZ8QfBTpJCQ1wA5vRXqzATJaQSJlR7eMHuEocXdjXZ30nFctclQsrG BdDQo+Fd4TVI4ve3HsOTq4kpAaBCieMUAbITsjYECwOCDcJPObPII4JAU5NTNCUvOnTCTpMKEtLFtwTG IgPPRclr0WOYFwJRZkCkG3ANXeFKOzUQIfBXmyVAQt AGTtLRc6GQUuHMYmMU8DFeNaMDUuTDDeQYogBLAuZCNluo2GZJZfQMMrNgQ5FXIrOYYtOBTdIQrpLVCg XRVeNIzpQCJgTPWqKR6DAvTwAFAxLCLbIVIrDVUtKRYhpm6DEZHyOANkXEG0GLKxQAHtADErQHdmDELn OXD6FuXvLVOdSWXsFP5OCoPaWEBlBVr9SvqoJGCvDE Hozo1SQSDrQYRwIIS1SEBcRUIhMCTxLLdjFQDcARS5PZD6EUMoIYFrLQ3OPiBvRWLaDDZ5NFTlGYKrNI Amtr5UAXDjWQGzYMdtNVVeQXFcPZGfHWhzPNTdSJUnTZK2NBMrFHBpFK9LFyUtJNJpSKT4BpBdXJHeRJ Tbzn0MAIDuRXCfRqB9KvVfBUDpBGSxNLtsLVYkFHAp EwA0FMBfCVEzTD7OGtKbHAUmVxY2SBSsWEZbQECidr2JFNMwRPAgLOgvHYYfQXBvVRZrFOprZBZiJGZ6 ZXRyGUTxUOPlIU2TTwOpDSHkYtHnWuWkAWAiZIOaxc5CEKZpZDZfVUAuWrMcEFVnROJqREqfHUAzGTN8 OTB4YKXmAUEdZE7AYlAyIZRpIrA1ZAExROHmCMMieo 7GOOZiLUAbLnybPMOqCXYxSEVmKHutRRUwHIS8AmYeLWBnCQVvWJ8DGeCvKQBfGrh7RIMrFNNkCHWglj 8JKSLdBAQzYYWtVYYnNANuMDRvAQwwXGQlBXM2LOPzUQZfEAToKJ9SHlCtIOJuSftlGKZgWECsSPNnjr 0KMDAwMDAyOTQxOCAwMDAwMCBuDQowMDAwMDMwMzYx GBQzOWBnQF7YYdAyLEXsTeG8YSxoJWRzSCGxho2EGQUrIIJqVPr2INJjIJIrPXWuPLxlTRWsGNZxQtp4 SJXvBCBhQV8JFmBrYEErKtE3LxesIICpWUAkfo6EGFHvRXJnKrY0JXVjJAIhKUXnZUjcCBDrKMHfJVY8 THXuJPRdBE4JUiDyLYAtGjS5QQDdFPVnZDIapm5ZPY WkLHMbJUK7QuHlMLSvKFKyRXhzYRLeRLP2CpMtQPAyNGYnMF0JRsItBFipSDWUNgk7NTlpN5u5PES0Uh 3OS3Dtf4AzSCBeWTZJPEzaKJ3qtoJlVDRjPj5PN2dWHpsoRYOrJXG1SBH2WABrQ6SxGrVlDkI0Bfz9XW Y9GoMcXd3kZGO8ZCCiQYJhArKcHoF3XdQpQJT1ZrTf CEleYiw4BkEuNeBkTJ3GIn1UDkN8CMV1tKYrMw2OCsW7XjVCSdTgXU3SOLs= ID Date Data Source [id number] 07/15/2020 11:32:[address] [facility] Name Value Range Interpretation Code Description Data Evelin rce(s) Supporting Document(s) Glucose, Fingerstick 246 mg/dl 70-[address] [facility] The above 1 analytes were performed by [facility] [id number] [place] [address], ,[place] [address] ID Date Data Source [id number] 07/15/2020 07:32:[address] [facility] Name Value Range Interpretation Code Description Data Evelin rce(s) Supporting Document(s) Glucose, Fingerstick 143 mg/dl 70-[address] [facility] The above 1 analytes were performed by S [facility] [id number] [place] [address], ,[place] [address] ID Date Data Source [id number] 07/15/2020 05:35:00 AM [facility] Name Value Range Interpretation Code Description Data Evelin rce(s) Supporting Document(s) AST 24 IU/L 15-37 Normal (applies to non-numeric resul ts) [facility] Sulfasalazine and sulfapyridine have the potential to falsely depressAspartate Aminotransferase results. Baseline values before medication administration are recommended. ALT 18 IU/L 16-61 Normal (applies to non-numeric resul ts) [facility] Sulfasalazine and sulfapyridine have the potential to falsely depressAlanine Aminotransferase results. Baseline values before medication administration are recommended. Alkaline Phosphatase 75 mIU/ml 50-136 Normal (applies to non-num veronique results) [facility] Total Bilirubin 0.90 mg/dl 0.20-1.00 Normal (applies to non-numeric results) [facility] Blood Urea Nitrogen 13 mg/dl 7-18 Normal (applies to non-nume kamilah results) [facility] Creatinine 0.91 mg/dl 0.67-1.17 Normal (applies to non-numeric resul ts) [facility] N-Acetylcysteine (NAC) and Metamizole bradley ve the potential to falselydepress Creatinine results. Baseline values before medication adminstration are recommended. Patients undergoing treatment with phenindione will have falselydepressed results. Patients on phenindione therapy should be tested with an alternativeCREA method.Toxic levels of acetaminophen may lead to falsely depressed results forpatient samples. Glomerular Filtration Rate 85.00 mL/min/1.73m2 [facility] GFR Reference Ranges:Normal Function or Mild [...] of Health and the National KidneyFoundation. The Gordon method used in calculating this result is traceable to IDMS standards. Glucose 133 mg/dl 70-110 Above high normal [facility] Sulfasalazine has the potential to false ly depress Glucose results. Sulfapyridine has the potential to falsely elevate Glucose results. Baseline values before medication administration are recommended. Calcium 9.3 mg/dl 8.5-10.1 Normal (applies to non-numeric resul ts) [facility] Total Protein 7.5 g/dl 6.4-8.2 Normal (applies to non-numeric re sults) [facility] Albumin 3.7 g/dl 3.4-5.0 Normal (applies to non-numeric resul ts) [facility] Sodium 139 mEq/L 136-145 Normal (applies to non-numeric resul ts) [facility] Potassium 3.8 mEq/L 3.5-5.1 Normal (applies to non-numeric resul ts) [facility] Chloride 105.0 mEq/L 98.0-107.0 Normal (applies to non-numeric resu lts) [facility] Carbon Dioxide 30.1 mMol/L 21.0-32.0 Normal (applies to non-numeric results) [facility] Anion Gap 7.7 7.0-15.0 Normal (applies to non-numeric resul ts) [facility] The above 16 analytes were performed by [facility] [id number] [place] [id number] [address] ID Date Data Source [id number] 07/15/2020 05:05:[address] [facility] Name Value Range Interpretation Code Description Data Evelin rce(s) Supporting Document(s) WBC 4.87 x1000/ul 4.80-10.00 Normal (applies to non-numeric re sults) [facility] RBC 4.09 x1Mil/ul 4.70-6.10 Below low normal [facility] Hemoglobin 11.9 g/dl 14.0-18.0 Below low normal [facility] Hematocrit 37.4 % 42.0-52.0 Below low normal [facility] MCV 91.4 fL 80.0-94.0 Normal (applies to non-numeric resul ts) [facility] MCH 29.1 pg 27.0-31.0 Normal (applies to non-numeric resul ts) [facility] MCHC 31.8 g/dl 32.2-37.[address] [facility] RDW 14.4 % 11.5-14.5 Normal (applies to non-numeric resul ts) [facility] Platelet Count 167 x1000/ul 130-400 Normal (applies to non-numeric results) [facility] MPV 9.5 fL 9.4-12.4 Normal (applies to non-numeric resul ts) [facility] Neutrophils 55.9 % 40.0-74.0 Normal (applies to non-numeric resu lts) [facility] Lymphocytes 30.0 % 19.0-48.0 Normal (applies to non-numeric resu lts) [facility] Monocytes 9.4 % 3.4-9.0 Above high normal [facility] Eosinophils 3.5 % 0.0-7.0 Normal (applies to non-numeric resu lts) [facility] Basophils 0.6 % 0.0-2.0 Normal (applies to non-numeric resul ts) [facility] Immature Granulocytes 0.6 % 0.0-0.[address] [facility] Nucleated RBCs 0.00 % 0.00-0.20 Normal (applies to non-numeric r esults) [facility] Abs. Neutrophils 2.72 x1000/ul 1.92-8.31 Normal (applies to non-numeric results) [facility] Abs. Lymphocyte 1.46 x1000/ul 1.20-3.70 Normal (applies to non-n umeric results) [facility] Abs. Monocytes 0.46 x1000/ul 0.14-0.97 Normal (applies to non-nu meric results) [facility] Abs. Eosinophils 0.17 x1000/ul 0.00-0.76 Normal (applie s to non-numeric results) [facility] Abs. Basophils 0.03 x1000/ul 0.00-0.22 Normal (applies to non-n umeric results) [facility] Abs. Immature Gran. 0.03 x1000/ul 0.00-0.[address] [facility] Abs. Nucleated RBCs 0.00 x1000/ul 0.00-0.02 Normal (appl ies to non-numeric results) [facility] The above 24 analytes were performed by [facility] [id number] [place] [address],[facility] [id number][facility] [address] ID Date Data Source [id number] 07/14/2020 08:42:[address] [facility] Name Value Range Interpretation Code Description Data Evelin rce(s) Supporting Document(s) Glucose, Fingerstick 152 mg/dl 70-[address] [facility] The above 1 analytes were performed by [facility] [id number] [place] [address],[facility]#: [id number],[place] [address] ID Date Data Source [id number] 07/14/2020 05:03:[address] [facility] Name Value Range Interpretation Code Description Data Evelin rce(s) Supporting Document(s) Progress Notes [facility] ULAJYz4lWpRAPkVq59/LZRflCSYxi1TsRJejGGu0MSgsFTIiD0DqPPO9fT7dMUS3WFeBLvTpSeCoRmY5 m [file] [employer]man+YXl4emi47dRzAG/y+RRkynhewzUlYzvA1C8ip+7J89vA+pE2bkIuf5gqp+c33a/rqKdPs0SZ/PYc1 [file] 0gDQo+Hp2Uv3AhuzW9ztRaMUnkECC5TP9UPSDGA5AFAz== ID Date Data Source [id number] 07/14/2020 04:49:[address] [facility] Name Value Range Interpretation Code Description Data Evelin rce(s) Supporting Document(s) Glucose, Fingerstick 158 mg/dl 70-[address] [facility] The above 1 analytes were performed by [facility] [id number] [facility]#: [id number],[place] [address] ID Date Data Source [id number] 07/14/2020 04:38:[address] [facility] Name Value Range Interpretation Code Description Data Evelin rce(s) Supporting Document(s) Nursing Note [facility] TNCNHj6xFmCTMjWs73/VUNngMQUie0EkNGlhAJq5UQbjDQQuC2NcPPV7vD1gNIR7XQhDQaCyYoWxAxD3 lbm [file] ID Date Data Source [id number] 07/14/2020 03:48:[address] [facility] Name Value Range Interpretation Code Description Data Evelin rce(s) Supporting Document(s) Progress Notes [facility] HVCVEr4qBvNGXuTc14/IZTmzDVSjp3XcLAukRFe4THqmMWBjK8DuGEL1qG2eNDX6UFuZQuEoDvRwArV6 lbm [file] AgICAgICAgICAgICAgICAgICAgICAgICAgICAgICAg KYSnRKWxHKEjML4HLQBsDYYuEYGuZIAyECBsGCSyQMTlINEzJLBbHHAdGOBiNDLmEXRuSSGkVKWwHCZp CAQfPECnBXElCECjCEQiGBYoDSUdCYJwEJKiEKTkSUZrKJMhAELaNCFoVJWmKVAmQNOfMQ6DYHCjIHRt ICAgICAgICAgICAgICAgICAgICAgICAgICAgICAgIC AgICAgICAgICAgICAgICAgICAgICAgICAgICAgICAgICAgICAgICAgICAgICAgICAgICAgICAgICAgIC PsBX3MJQZwNKEpEENeKDWoHQEhRXRhIDEdRUOqLMOhAZMiFONnCGBcMKSaQZZuXNRmLWFoQOHkIVEgDR AgICAgICAgICAgICAgICAgICAgICAgICAgICAgICAg OSCdLHZzCQVoWRAcSZ4UZFSqTILoELTgVAOjYJCzEPSqRTWmCLOaEGXcADMcRSNeTDFpGMGjRYBpIFZs KPUyKAYnKTMdPXBwAKRjSVVwARUxIOJnVYFnYMXzTITgRJUrMLQnPERiGTXoQVTuKKHaTEKdCA9RFEKw ICAgICAgICAgICAgICAgICAgICAgICAgICAgICAgIC AgICAgICAgICAgICAgICAgICAgICAgICAgICAgICAgICAgICAgICAgICAgICAgICAgICAgICAgICAgIC QeOJIkHR7FFFWbENEgGAHbGHTbLXBeCERfHAQcTZAfVLGoEWTpAMJxVKSfPZAxVPLiNBEoRFMwESNlME AgICAgICAgICAgICAgICAgICAgICAgICAgICAgICAg NBVfBFBdVAZvKIHkVKYfRS1QVSMmXULsNRXzKHJrGZUkKKYqBHJuKLPuGIRzGCSrSEAjAANaGFHrVXQi UXUwTHMjUJIcFOVvXUXtXCYlWDCsNUPpOUWrVXLcSLInQBPpFBEzOIHyNUJsWURcKUVrQKKjWNUxYV2Q ICAgICAgICAgICAgICAgICAgICAgICAgICAgICAgIC AgICAgICAgICAgICAgICAgICAgICAgICAgICAgICAgICAgICAgICAgICAgICAgICAgICAgICAgICAgIC TlOVAmLBLdIX2ZVEIsCBSjQKAtUJDoWEApBFCtKGMvVGHiGQLiNEQpAEUwIYXyEBYjWYToNVLvFWOgOZ AgICAgICAgICAgICAgICAgICAgICAgICAgICAgICAg JPMcWMGcTIHtGUCdFZIvMHIuAH5XNU40pBSbu6O6KFXtIZ1jxby/Ox4XSMaospUspWYhRI0ZIfOvLK3u lo4NUqZsRT6caw1BSPvQAjUbG3X3cCHbRQBoSEBYRsEpP59wHRquVq33DHpgNSXeSsNoFIt3Zq4YNmDq J2isKOEaHgJ2ZBQtWxC4ERGjDxT4RXIqZfRmJNTxGH HtLGFyIQWHEHE6UKUsXrSiYyYhAYCfIO9FJSOdZ994paPyJh7DTc3ZFyZiUA0nyn5EJOGrSPCqWasIDd k4DNylID1ZgKUymBM0JdDbTGKGMqUcA9ozt9YbGHEkYZUESQhqRY3Xj8OkgCBmHZz+Qn1RMR3td3HtQI w0BlAdPV7vbu8TQMrGMcXsT2DggQpzAZDry4wzHWHf AV9zaUSeOKN1AJhvkLVmFSmuA0M6FEgoK9LcFLFnYp2zQR9uNDNbWAZhRvS5AIFTIY6OSGUzHSMkwPGi DCVpNPWXTX4ZAHyyUOP9MmwhodMdnSZvKUnbVZ5GFOTcynAkGIKmICVEWHu+Ea7NLG7ha9OmBEa5EMKg HQ4huy8TZGpKSvJoZ8N4nGJdG6H5KRcaLx8PAAJuHO PzVXYvXKHAJHhqAI0YEJ8ezkL8UI1LfSUdYUBrSSIxuEVkAZy6G90xlAHbOSqlSQ5AGBG+Yadira+Pg0KIC FcFOAyDUQaZqQeAFKALzKhQ0JwL8OLd1ZlR8JtKN79sLafznEuQLbuLM7FKF7dNMRjETQUKB3LrVTpgA 1hakZ5MaKtPUUDMpQdR25vyOBeZFDxYLCiDRJrZd0L OWHlI1WpajOxpJqdqwMcVROuTMVVHM2TIXiyifJkfOVvwOmaDG31pAacUT8FLv4FFhMpBD2xcu7WuSKs Zd0CGBT7CS7CDQWnUZIuFCJaJOH7WHUdGtYeMUykZNTwQQXlSVC7ERUlVULdFX0ZCtWhQDGbZJY7HcBu CYGaBQEvqg9QBRJgCXP8CnVdWJNnLRPwPGCcEInuRD RlILUtWBY4JAPsXVZaDN7CJuKkAHJuZGZnHNlhHFYwYJGatj1BLIGtNEFtRjPbYmDhJMBrXHUdHDtqUX JsTWN6ULTgSGIbRRCqAO7OTnNfJKBrEQF6UDBxAKTeRTZdjx2MKQXaPACwLLF5WvEuOTWxYTQpBAmvGG DzZAY0XgToLBIlLQApJO8ZGdOkNPKlAFN0SopbOWUu GAQvoi8BZOIhCXXsFhV0UMQtWEGeEQAeIGrvPSXoTLZ4VZYnAFAhLQQfQP1WMwHjIABnTKgpNyheIFEf JBSkpg7THQMqIRYeSTZ3JYUrPFUpOMPgJVlqOIGoEGNmHMbdFMNmIOFbQM2ZIrOlFGChADF2OzKfGUJo HOCkoi5HKBHiFVCkSzzqCKRoRJKnTJZqQLkoJVYeDB QvTfd8OSDsXRWmNR7WZfLhEKLpMOU4MZetAIMtZGIfnv7GXSGaHWHyQDF8XnLbHRTyYKDcLLamYOCfDR J8KBY3XPXgVPSuEP8TVkPhRKOsSODcJZXeNBRtGNGqen5RIUCiFNAeMXBkGiXjQECaAJMrARrbXLDhDC W0Yvd7ODIlXEMzHI5YClSlKUTyVvukCUEeFRYqZOOx hz6PLNPyIRDzEGWfLSKrVKExERHxONcjNYArOVF5BBDfDUAcIZLcIS2XSmZtGTXlXij1PBreMZTwFBSf rq2DUPNbLHPaEMGlSCBoRGTnYNFmTRkjYFCnGTH9NWFbLUNbRXPvFH8TIaXmPRIvPuw8TIqtIDVsWMXv eg4OJBSrFVVmIPb9DSTlAVTrDDTbIXymRNZfETCrLZ F3NBXoEGKkGT3ZCeSgJVFdHuYyKJqgVTGoGMIzul2AJXMnWLY0ZLEaLXReXYPhVJUtAUszDVImMIV5CA E1PYHcDYGzUH2XTxViYODbJUTiVMZzQWHpPRJvya1CGOHzATD2MBJ2RBCiBVXbSBGnOIcnQLCrHCZ9NY MqMWFpVPOyNT5KEaAsDUEgKVO8AAQdMAJeOQKufp4U SGEaCTU1CpJ2ILQsBKDeFCKdAVahGNWaUQV4MVFtEIOtCTKxVA9ZUvCbUMEiHHu8QCxaEVPpJRZgpc0G qXQbnGqadi1OCJaWOk2DwAxmFJO4EDiaKt8zxBN8LCEjWGQASu4FbuJrCPKlJPWPCPtwGSRvCKKnLzAt HKQ8FCC9VMU8ORXkLRC9LbBwGPF5AoHyFdS7LpJ7BI OlGnMqTRFfQtwgQwJ6HPY0XoDgIOE2FFfsFEPcOQL+ML8xOXo+Pm6Ys3ZhkpL3ngKuUJf7GsxbNX8PXM JOZ3NVLa== ID Date Data Source [id number] 07/14/2020 03:42:[address] [facility] Name Value Range Interpretation Code Description Data Evelin rce(s) Supporting Document(s) Care Plan [facility] SUQUYy1xFkPEEnGx19/VMXaqZCPnu4BsZTiaFQf9LTmaBKVhR8ScHBQ9oM1kOYD1NMrPAyNkIjUcPbY5 lbm [file] NmJmZjg+KV5oMBw+Lh0Mx0XvfgF3soGdFTiuEiU6KO0RSQJVJ5YKHu== ID Date Data Source [id number] 07/14/2020 03:10:[address] [facility] Name Value Range Interpretation Code Description Data Evelin rce(s) Supporting Document(s) Discharge Summary [facility] XMOWTs8wYoOJHsOg07/HNSnsZOOpg1EoZSvlKJp8YWjgRWZfX1HyQPK2hY7qQBT5MSjAUcIjOeFpKvP6 lbm [file] Qi1UJdt5KMvMDgEcDU0LNVe= ID Date Data Source [id number] 07/14/2020 03:04:58 PM EST [facility] Name Value Range Interpretation Code Description Data Evelin rce(s) Supporting Document(s) Progress Notes [facility] FUKTZu3pNfKAUsWn39/FGXkmXYLmw5LjSFedLSz8VQvcQAFaY9DzUQR0kJ7oOCL5QJjFJjCdUtFyNaQ2 lbm [file] DQo= ID Date Data Source [id number] 07/14/2020 02:26:[address] [facility] Name Value Range Interpretation Code Description Data Evelin rce(s) Supporting Document(s) Progress Notes [facility] HKKONy4sIxMJXrSx66/DDPzgZFItg8AnHYqtHUf5GOweMGLfT8DcDXA1rJ7cQFT2ZNnKDlOsMzCxNxD0 lbm [file] Lz4Vk+lxz1Zx5lz98ziBeZGJyQ5KdJ4Fg/EDHX9CsVDJN5yqgIFZ/5Ih1Yd2X3CMdVsqwYJ8hear+[place] RKGlk3HvKgi3HeOwj3hBporqO3LdsZjdAt4u8HaDAAylnivzEskJ/QdqvWMM9Lv4U/j+vI+n8Ydm [file] RjIgMjYgMCBSDQogICAgICAvRjMgMjkgMCBSDQogICAgICAvRjQgMzIgMCBSDQogICAgICAvRjUgMzUg TEOZRWojDTUuTWPeXvHlOovgRDIAZd8NTgQpNNOwKW 9yknLvzNK6RRQ+Fr1KMZViBO8ZnIBTR4WtwNYoXKpgZ8OUWW6EWLO2UD4HeLXkWZ8AlSYWD9JftWYbQe 1xCGZpu7EqRg0uB5JXPAYDIRKkNZgfCYqpHHLgQJd5L0K0PFFyP6WTW998kFDpfKi2Hm6xQ9ICGBhJTb CeEJquWGwxMPYvNVu8M6X8CSTsA3KHI9YvEuTbdqBu Y2U+YlVxFYBVUG9IHABISMr6H6Q2cHVsP7Q2eEvVxGU1MY6IGX6CzAVxjJVzj13+BsQMPoUwNWRkE8XC DFAAUsEuGHfbHEepGDKyCMc4E5V1NRKgT3OSU1coV2s8UP0+FmJATeCvUGFtJk1IWhNnCc2ZHkBsDG2r ye6VRVPjHQIfNvlWCja6X7wgpmp1gZKrDuR0I6U9Hy V6kGQaKI4EM7D3pZVcQKA8GVCibER+Kl6Yg4WjHJHvRGy6Z0iqETCgUTMfEtEmcX79J++0mezpnFU6M6 q5CAWXpITraByVquYpL7lWBQG1w7K2XEf/Xo4LICC7ySq4dEOfRLSiSDj3kK9txHp7IiCnTO31HZVyLG dfaY9cJtc7F8Ehx5MeEe8fHt2brJZgZe9RUgBfADX7 btBsCpHHFkN3iFjpxcgtHFX7I0a1kVX3Wa92p0jinvHuy5MaVtP5AKhoYEJmRgTmifYbMDV7wdTvnA4r hpRxLq8WQWEiTOdvluFbSaDQWi3IVdXmUH26BmzdfT3ouUZ+DQogICAgICAgICAgICAgICAgICAgICAg ICAgICAgICAgICAgICAgICAgICAgICAgICAgICAgIC AgICAgICAgICAgICAgICAgICAgICAgICAgICAgICAgICAgICAgICAgICAgICAgDQogICAgICAgICAgIC AgICAgICAgICAgICAgICAgICAgICAgICAgICAgICAgICAgICAgICAgICAgICAgICAgICAgICAgICAgIC AgICAgICAgICAgICAgICAgICAgICAgICAgICAgDQog ICAgICAgICAgICAgICAgICAgICAgICAgICAgICAgICAgICAgICAgICAgICAgICAgICAgICAgICAgICAg ICAgICAgICAgICAgICAgICAgICAgICAgICAgICAgICAgICAgICAgDQogICAgICAgICAgICAgICAgICAg ICAgICAgICAgICAgICAgICAgICAgICAgICAgICAgIC AgICAgICAgICAgICAgICAgICAgICAgICAgICAgICAgICAgICAgICAgICAgICAgICAgDQogICAgICAgIC AgICAgICAgICAgICAgICAgICAgICAgICAgICAgICAgICAgICAgICAgICAgICAgICAgICAgICAgICAgIC AgICAgICAgICAgICAgICAgICAgICAgICAgICAgICAg DQogICAgICAgICAgICAgICAgICAgICAgICAgICAgICAgICAgICAgICAgICAgICAgICAgICAgICAgICAg ICAgICAgICAgICAgICAgICAgICAgICAgICAgICAgICAgICAgICAgICAgDQogICAgICAgICAgICAgICAg ICAgICAgICAgICAgICAgICAgICAgICAgICAgICAgIC AgICAgICAgICAgICAgICAgICAgICAgICAgICAgICAgICAgICAgICAgICAgICAgICAgICAgDQogICAgIC AgICAgICAgICAgICAgICAgICAgICAgICAgICAgICAgICAgICAgICAgICAgICAgICAgICAgICAgICAgIC AgICAgICAgICAgICAgICAgICAgICAgICAgICAgICAg ICAgDQogICAgICAgICAgICAgICAgICAgICAgICAgICAgICAgICAgICAgICAgICAgICAgICAgICAgICAg ICAgICAgICAgICAgICAgICAgICAgICAgICAgICAgICAgICAgICAgICAgICAgDQogICAgICAgICAgICAg ICAgICAgICAgICAgICAgICAgICAgICAgICAgICAgIC JgAKWoOFAjJESjIXTxBRXjJWDkFPBeRGAxDEUvXAViINVbBUMgXMUtJDJyTUUlLALeRYPeFVAzHNc5D8 aoMQGeQQEaSK6cUUi3Sp4+EUxDPvCgVVC3ebOekF6ZYV9sb8FxZMsyZWIty9BaJTb2AB9IPUXsHBfvRG 3BVQrmms8BKHPiCLFxkOSSs8alCiJyZBP5EFEpZxot KY2FBICjW8presVbFHPzNLZBNWmyUSMKQTnvVSKYGIXoRHUnFuMsWpLlFBHkHKNmQOEOPOA1ONEgUvSz LGikNX0Hb2SplRY2ESt+Qk6VET2br4QpAGz3HQUkGN0ijz6EJKdIQiCpX2RmrwJ9GOEpGZPoJc5KZPDb ZAPhwOD8KrQjLOZYHhPpL0CthF54SURMIn8+DQplbm MeMirEOrUnOWWfw7ChOPr7UD3WECIvIXl7oLXlYITqC8Otm3YmJl71WZDvGgdcB0C4lnS6WYQhvJYsFP OFDZDbrFSrYbV4RyNbLhZkPGC6QJWkIL4xENqkGH6XQQS8MRhfTVVkHLWtT0aKZeOcUZcnOKSblPgxTW 2QYgYcX8JcwpCqyYV0MJLhBMZUQc0+DQplbmRvYmoN XzBjQFWap5FxHAr0AJ2GHVCqCZtuRQ1RZCFbmW5pENmiRX1ZUaGnBJMtIUMRHeHyM00yxFKtWTv5D5Zk YmVkZGVkRmlsZXMgPDwvTmFtZXMgWyBdDQogID4+ID4+KWegKR3WVSmjiyNlSGSlOa7BCJEeWYNsEF1p QAOiQNGbW3M0pZhmFOQFLtWlE4ccceyqFN5pKYFsV7 77eIbokaHoSSUxJKQgAh0RWJWdQID0BBEuaFSjXSZlBRBVTYmuRP3StJUhBAR6aQ8mNAcoJRVqSIDfF1 aYAhCqlGkdNC61sVwktsEcfAZbMZu+Zr1FJT5zc0TiLQd7veWlTWxyYEK2WMvnTGWxHKYuWPKmCUA3FA D6VBAEYcZjDQHaULXmLVlvYUHtXTKsms7QPZJyMZPr OnAoJIHqEXPpCQCuGDrdMOOcEGQ7HOJ7HOHhHGIuRP0FDfXzPBKcTVDgXDxwBPLlCLUbxr5XXDLsWIPt MeY4QPLxMBLkHMVuMKbvDWBqUQOePhn9QOIzWQWxFC4EVpUuODQwFQMxYrugMEIwXZKkkz9FJCTcCRCj OhP5XcHsUBCpZAWfLZvyQUWdCJL2RTQ7CTWlKAPkSC 0BBrXsTFDhMYmtZqJdRMNzFUJqsy4LCETrCQKvUQomBvMwWJUcSLPiYGdgEEUrUEQoKXVjHWYiHOThYK 2WEsKmVZIfMXI5VHQnFMOpJNCsha7EGYMdIOBwGoI2NTPeJCUgCRPwIFwqWPJtMXW3JueaLBCwQJBtTC 5JFiUfHXEeIFR7YvymNMUuIJZmxd8AAKSxMMBgVbNr QeToJISgDUSlSFtjBVIvMWQ4OlVeDTObDYNrED7ZCtJePXTaNRp7EYDeFVAuQJHhsq7CIRAvSOTjEWdv ErLuPLIcTTXcBEcyUKTsVGC0BLnhERYnJHEoFG0QBdGrLNOmZzIyFGBiNOIbXTZetc8MGJXrRCVdEGU4 VIVqUEUnWOXlGHagEGNaHDLjTCVqALPxPGGlUN9VOo XnKIIxWbXpGKniFPVtATFwcx0ZVNNqLROyMPL0LJVfIVDxUIVwHJqkRBYzAJVmBit0ABJtWRImKI0RYc NlRJDzBaD3JzKwJHUpAROdgf4VIZVjSLMuLcr0EXDcFIIrUEDyITpsQATbOWUkONCfOQBzTTCpYK6NTb EtTPOvTpAzFYAsQSPzXATeke6MXETyNYKlNJJ4UoUr MALcYGBvDFfkRODpWDZ4XSk0LFQnFPSsGD4FVdJdPFGsEmF5ZBIjRUIbHPTexa1NMNRoJBUwWEO1BhUj IZXzGPAxNNuaZUInMGQ2SQAlJACgGYNcJX8WTsQgVVIoCqZ6KJDoIWSjKEGtar9KGKZjGAPuEtUvDCSz ABGaVSByKFkhJOJoJAP4EpFwDRRwHNOzMC8SVyRfRD VsHge0KVQvEBXyLTFnfd8MCSLtUHKhKOD4XDTwQSRrWDFwCRkeUPZqUCW2GrM5JCXhOBPwOW1HYgKlVB QpSskjZZLdRWEuGEYvjv8MoCWykCjbvm9RVNjSUs9TdSbvQBW3QHxzUr9lxWQ8AcUeMEPMOg3VxzSeBE QyTVSAYVbzZGJlSDIfTmH9MaGdHMWpFMAuNWMxTzqg XMb8RVYjNqSyMTO0YfG5IbWrJmDkGtB0GeJmWbP5HZG0I1SxRuW8L7K1WhVjClP+EB5fMLi+Zv5Gu0Yk sjN5gxMvEOlxSECoZj0JQNQHS1VSXv== ID Date Data Source [id number] 07/14/2020 12:25:[address] [facility] Name Value Range Interpretation Code Description Data Evelin rce(s) Supporting Document(s) Progress Notes [facility] PVXVZh1gGtGBXcXe05/IPUjpUXAja6TmDWwrOFd2YJznVMFkI8GeLPW4hV7sOLG4TRnFDzHiOsDdByD5 lbm AmZtjNZgPjGUTgOaiZPkQhDDlpNvpdxRDhFQ0KzUE8EGTnD60lSSGjDQCeT1BzHIHuYNU+We8UOTKreR FzSM9JGcuL2ZrXhrz5UZ5V7M/iPAnnvES1zTJTIRbHthhXP7idox7vm61qVhtGHrK770tzhuR6Z4Fcit ZCW/sgDUjON+0FrzVR0/ddtKJASinK/8XXKNHidih+ /ziab9v7aS30gVqGP0vMErWRth+hcj3ugWdFKcdN+F7EoS/nC2rBDvUB8n4ydGcLn+UwZj2x0mG/HcvN BC1aFv3BomZwFk7a9FZAEHPDUn66qFOf8+3FO5H+IJVuSawDxggse9tIF4SKv8ScT5b7X0ClsOPpJNlv GMAm7viu+j1NkTjev2esLLT7u6ukNXxF960mwTEIzv SNSn9BKHcNjpdK9Pk8MFgI4YVJ3aIBlB/QupnAb5cHagsg4xi3lmm9J4sTAtAlY0IexTCvtrYtCp7ciC H8rHhTXGSj0PT3SH4xJiuhnEtiEbGGvGJZOZ8IqDEuY5TjCdANODWVZrrPeErO/qA8tKKWXehIq9dC/3 o26Q+90aV8GixSP9mcs0kqhsDFODjM3VSjuWHSe/nS bSygpMUdSiivO8Sz0q0cbJ30JNXM1HNaG48Z5bg/+ypJS81t/UZaXvkjOk38ykFUM8gkjlGMEt2bja/m 3jWWss3F15LR+QOtGHbovxFB5QL+Lpd71Rpb7swBX84ddAA6LDLJiVW7Us6rgzGj9w5JSd8efhP/mGpY gMu+7RhwHw1mharlRNc0cWutMWtZivrKhoC++f0o6+ 3s2EAYZQSt8jUihg9fEzoyv/tfCwkTZiV9xYdZiLrmkjqZwI6fAJeRiL8sMzq0WqINfTPTnhfGdNIe3G LRwRrA8se0lNvpDw2AoThvUYCtz5Kq2+mrJbd1O9PhfUMt7aw5nG75ox3bUrA/MZst58iSwikg3C3OJt cXLzEoJ0JkXW4P7Toq2MS6ReX0xpPsPCLw4XUVjaLI mTpY7Q+Cyj4AOtvSqoVSVbMEGYEgBpB9bOVGqBoYBlzJYmXaET9Bo3HnXqoNcXhXGIYTIGmRLpjW+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 [file] AgICAgICAgICAgICAgICAgICAgICAgICAgICAgICAgICAgICAgICAgICAgICAgICAgICAgICAgICAgIC AgICAgICAgICAgICAgICAgICAgICAgDQogICAgICAg ICAgICAgICAgICAgICAgICAgICAgICAgICAgICAgICAgICAgICAgICAgICAgICAgICAgICAgICAgICAg ICAgICAgICAgICAgICAgICAgICAgICAgICAgICAgICAgDQogICAgICAgICAgICAgICAgICAgICAgICAg ICAgICAgICAgICAgICAgICAgICAgICAgICAgICAgIC AgICAgICAgICAgICAgICAgICAgICAgICAgICAgICAgICAgICAgICAgICAgDQogICAgICAgICAgICAgIC AgICAgICAgICAgICAgICAgICAgICAgICAgICAgICAgICAgICAgICAgICAgICAgICAgICAgICAgICAgIC AgICAgICAgICAgICAgICAgICAgICAgICAgDQogICAg ICAgICAgICAgICAgICAgICAgICAgICAgICAgICAgICAgICAgICAgICAgICAgICAgICAgICAgICAgICAg ICAgICAgICAgICAgICAgICAgICAgICAgICAgICAgICAgICAgDQogICAgICAgICAgICAgICAgICAgICAg ICAgICAgICAgICAgICAgICAgICAgICAgICAgICAgIC AgICAgICAgICAgICAgICAgICAgICAgICAgICAgICAgICAgICAgICAgICAgICAgDQogICAgICAgICAgIC AgICAgICAgICAgICAgICAgICAgICAgICAgICAgICAgICAgICAgICAgICAgICAgICAgICAgICAgICAgIC AgICAgICAgICAgICAgICAgICAgICAgICAgICAgDQog ICAgICAgICAgICAgICAgICAgICAgICAgICAgICAgICAgICAgICAgICAgICAgICAgICAgICAgICAgICAg ICAgICAgICAgICAgICAgICAgICAgICAgICAgICAgICAgICAgICAgDQogICAgICAgICAgICAgICAgICAg ICAgICAgICAgICAgICAgICAgICAgICAgICAgICAgIC AgICAgICAgICAgICAgICAgICAgICAgICAgICAgICAgICAgICAgICAgICAgICAgICAgDQogICAgICAgIC AgICAgICAgICAgICAgICAgICAgICAgICAgICAgICAgICAgICAgICAgICAgICAgICAgICAgICAgICAgIC AgICAgICAgICAgICAgICAgICAgICAgICAgICAgICAg ZOe5I8sdLZQfKUVnTG7uXAx1Gx5+RMxVOvLoLCJ2oaKujP7ZNC6by7YnJQfxFVWar0MpZNm2PQ1CIWGj BArmRX4ZUKkjtx1AARGjXCNpdBFSs4oeQeMfOUW9QHGeBvjkOX0LLDUfW0oqpeAeJXNiTFNUOQ2HEnLr P7HrbP53ITURKq3+YQfgwjBhNhuWBwX9PAXlm3WrHA k3KS4JNQKlTssoo4DpUsGrNQHQPIloBR0JPCF6VGU2NMPmGb8AZBLqS605miVtLI7MJu0FOlJnLE6ffu 5QKgLoVPElCuvOKlq0KGjbJA8QlHBkMQyDxw8zylWewcRQk5CdnpGynFEOkJUxpYFmZ9C8jXjmERYdEK AwTo2fJW0gVBSiTDAfEsT6OJNTSY0YEBMePJJceQCy IOIsTWDAEP9TJLbfCJZ5TediuhBuyWGqGOomCK1MGQKrbkAzVaIyQJWPNKw+Uf1THR8hg8KmQVzsGmHv OD6epd2CLAhYSuRwS0F7uLUgC0E1PZbtMq7KUJIqUQSyBbHcTEWANJcsAM4ZFU1bntJ3NN8PuLWkEKJt DWJiuTQdLYq2T63zgBFxOKulOK2SYRE+Yadira+Pg0KIC JdKZGuRIPdKzHfCYJFLeNzC3TxF5EEu2BeI6JjRL82iUqnrhVjBNsfRP7RJK3mTLJqBSEAUU5LsMJejN 1mrgBfRKLvDHFLGpXnH73fpCArESWtRVJ5RORzIf2FZMTsW8TcthVqiIfeqkQaHTTdJLLAYW1QUSgstc KfsNCxgMqiDC45gZdyQQ3TMp1GYhHtJK2dso9MsTEx Wn7NXEShBV0JJJImVCSvZWRbIIN8TFJfJmXwWYscTTCuEOErLPL7INGgRRUbRW2JMmBjDGTnOoS6IHCm JKTxXYFivj5ZBCVhZJEvJqA2HxWbJRElDSEwNVzvWQTyRUVoOSY7SXXcHLUrPV0NQzQlUXOfFGL0XtZx FTSdSLAxky7TOQVhHGJaZOchFdBdHCEsHOPeOJmfUI UuLGVqVip3XWUyJNDwIQ4DFwSdUMTgBCD6UXHnVOOjYKZwzu4AEEIfFTDmXfN6NLZqJZOiMZRmDAxwJD EuEPP5CDMnRGSoQVJqKP4YBuNwWZHfGZVyGsmkZWIpVVFgku9FOHMzYKZcNDPjCPRgXCWnSPJaBTacCX MhELI7WJS8JRHuTNPsYM3DLnDlCRFtQDvdRRFdLTUc USZgqb0RZHVuOJEyZjI9LoCuROLvCUCdQRxvNINpDMU1ZlPfYEBlYGEhZZ6NPgTmCJFjAMp0YiugCUXw VIInqn7OIVNxTSQqCKzrEwLcSLFdQOJsPTynBIBrNIJ7YMBtNPEnQBIqNN9LMdWjGXBvRWocTUVfOPJf HAOhcb5TEUVcYHFtWLFdDzRxACChEAPuOFnoDVAaWF HyIkK4JGYxZITrQQ1BNuNvKOAiAhXgHXGcJYJoQQFfpc5JYKLaPSBsCPvjZmMgNLLbTBUxYYyiPPPyMR YsIcViFWEmSVJrDW4BGcXaLRWxHiQrXePdQDHyYUAbsy8NNAAaFJOeBgF2UWGbNXRuGSLyVKs8nbQiqU DgRZl2SY3HZ3WvdxHlIruYKt7Ds658YLB7PAUbVq8V R5uvCf4mYBVjOVPXYd3JVJz4CDGdAHs0VPh9XAA7WaerCJPdJAEmRPM5EuUxINraNRZ+IDxlYmZkOTk5 QxwpGHq7M2M6AILuYdZrHAYbTWBqQDXdMP9lNOZMPh7+SJwvgFLvpWmzTQJSEaVkGwOyIMmkKLNEWc8L ID Date Data Source [id number] 07/14/2020 12:00:[address] [facility] Name Value Range Interpretation Code Description Data Evelin rce(s) Supporting Document(s) Progress Notes [facility] ZWSMHd0xFeHLHkTs67/WRMtfRGMwj0SqGTnxCBg4TDewDQXrL4QqIJO6pX8cWLR4PJbHSiQcBsSsStI6 lbm [file] NtH2TlHRKwFwehLCY8FHSjOkXjVDFwRqDzCC6HAg2JRuN9SRW7hBAaXe3JHzYuIdOMPgDbTJ5WAYe= ID Date Data Source [id number] 07/14/2020 11:52:[address] [facility] Name Value Range Interpretation Code Description Data Evelin rce(s) Supporting Document(s) Glucose, Fingerstick 140 mg/dl 70-[address] [facility] The above 1 analytes were performed by [facility] [address]#: [id number],[place] [address] ID Date Data Source [id number] 07/14/2020 09:45:[address] [facility] Name Value Range Interpretation Code Description Data Evelin rce(s) Supporting Document(s) Progress Notes [facility] KRYBSr2uDjTSHbQv10/RPNhsNZCob7RpFZpzBWa6FGtjPVFkU3NeYGL4nQ2jHGO1DCdSQlYxYxEwPkC5 lbm [file] AsmmDwvoNB0qBIIKHk4+OMjxcHJdkLwjGOKZMkF8HOG2TYeeXOHKNb5I ID Date Data Source [id number] 07/14/2020 07:54:[address] [facility] Name Value Range Interpretation Code Description Data Evelin rce(s) Supporting Document(s) Progress Notes [facility] ERSPBl2iPrXYCgFz91/MLYjqHZAku4VdKPswSXb5GQonJAOxP3MwDPK2hN6mECQ3KHtJYjEiHtMmEuO5 lbm [file] qxE8mpSvSDvkTiqxOn4QWELXK6RLTl== ID Date Data Source [id number] 07/14/2020 07:45:00 AM [facility] Name Value Range Interpretation Code Description Data Evelin rce(s) Supporting Document(s) Glucose, Fingerstick 144 mg/dl 70-[address] [facility] The above 1 analytes were performed by [facility] [address],[facility]#: [id number],[place] [address] ID Date Data Source [id number] 07/14/2020 06:55:00 AM [facility] Name Value Range Interpretation Code Description Data Evelin rce(s) Supporting Document(s) Blood Urea Nitrogen 13 mg/dl 7-18 Normal (applies to non-nume kamilah results) [facility] Creatinine 0.80 mg/dl 0.67-1.17 Normal (applies to non-numeric resul ts) [facility] N-Acetylcysteine (NAC) and Metamizole bradley ve the potential to falselydepress Creatinine results. Baseline values before medication adminstration are recommended. Patients undergoing treatment with phenindione will have falselydepressed results. Patients on phenindione therapy should be tested with an alternativeCREA method.Toxic levels of acetaminophen may lead to falsely depressed results forpatient samples. Glomerular Filtration Rate >90.00 mL/min/1.73m2 [facility] GFR Reference Ranges:Normal Function or Mild [...] of Health and the National Kidney[employer]. The Gordon method used in calculating this result is traceable to IDMS standards. Glucose 169 mg/dl 70-110 Above high normal [facility] Sulfasalazine has the potential to false ly depress Glucose results. Sulfapyridine has the potential to falsely elevate Glucose results. Baseline values before medication administration are recommended. Calcium 9.2 mg/dl 8.5-10.1 Normal (applies to non-numeric resul ts) [facility] Sodium 137 mEq/L 136-145 Normal (applies to non-numeric resul ts) [facility] Potassium 4.0 mEq/L 3.5-5.1 Normal (applies to non-numeric resul ts) [facility] Chloride 105.0 mEq/L 98.0-107.0 Normal (applies to non-numeric resu lts) [facility] Carbon Dioxide 26.2 mMol/L 21.0-32.0 Normal (applies to non-numeric results) [facility] Anion Gap 9.8 7.0-15.0 Normal (applies to non-numeric resul ts) [facility] The above 10 analytes were performed by [facility] [id number] [place] [address], ,[place] [address] ID Date Data Source [id number] 07/14/2020 06:25:[address] [facility] Name Value Range Interpretation Code Description Data Evelin rce(s) Supporting Document(s) WBC 5.20 x1000/ul 4.80-10.00 Normal (applies to non-numeric re sults) [facility] RBC 4.26 x1Mil/ul 4.70-6.10 Below low normal [facility] Hemoglobin 12.5 g/dl 14.0-18.0 Below low normal [facility] Hematocrit 38.0 % 42.0-52.0 Below low normal [facility] MCV 89.2 fL 80.0-94.0 Normal (applies to non-numeric resul ts) [facility] MCH 29.3 pg 27.0-31.0 Normal (applies to non-numeric resul ts) [facility] MCHC 32.9 g/dl 32.2-37.0 Normal (applies to non-numeric resul ts) [facility] RDW 14.6 % 11.5-14.5 Above high normal [facility] Platelet Count 169 x1000/ul 130-400 Normal (applies to non-numeric results) [facility] MPV 10.4 fL 9.4-12.4 Normal (applies to non-numeric resul ts) [facility] Neutrophils 58.0 % 40.0-74.0 Normal (applies to non-numeric resu lts) [facility] Lymphocytes 30.0 % 19.0-48.0 Normal (applies to non-numeric resu lts) [facility] Monocytes 8.3 % 3.4-9.0 Normal (applies to non-numeric resul ts) [facility] Eosinophils 2.7 % 0.0-7.0 Normal (applies to non-numeric resu lts) [facility] Basophils 0.6 % 0.0-2.0 Normal (applies to non-numeric resul ts) [facility] Immature Granulocytes 0.4 % 0.0-0.5 Normal (applies to non-nu meric results) [facility] Nucleated RBCs 0.00 % 0.00-0.20 Normal (applies to non-numeric r esults) [facility] Abs. Neutrophils 3.02 x1000/ul 1.92-8.31 Normal (applies to non-numeric results) [facility] Abs. Lymphocyte 1.56 x1000/ul 1.20-3.70 Normal (applies to non-n umeric results) [facility] Abs. Monocytes 0.43 x1000/ul 0.14-0.97 Normal (applies to non-nu meric results) [facility] Abs. Eosinophils 0.14 x1000/ul 0.00-0.76 Normal (applie s to non-numeric results) [facility] Abs. Basophils 0.03 x1000/ul 0.00-0.22 Normal (applies to non-n umeric results) [facility] Abs. Immature Gran. 0.02 x1000/ul 0.00-0.02 Normal (appl ies to non-numeric results) [facility] Abs. Nucleated RBCs 0.00 x1000/ul 0.00-0.02 Normal (appl ies to non-numeric results) [facility] The above 24 analytes were performed by [facility] [id number] [place] [address],[facility]#: [id number],[place] [address] ID Date Data Source [id number] 07/13/2020 09:04:[address] [facility] Name Value Range Interpretation Code Description Data Evelin rce(s) Supporting Document(s) Glucose, Fingerstick 98 mg/dl 70-110 Normal (applies to non-num veronique results) [facility] The above 1 analytes were performed by [facility] [id number] [place] [address]#: [id number],[place] [address] ID Date Data Source [id number] 07/13/2020 05:57:[address] [facility] Name Value Range Interpretation Code Description Data Evelin rce(s) Supporting Document(s) Consults [facility] SEPRBa9tJoPPOhBd53/AEFybPIPvq6UwYTguNKx2TOejWVLvS7ZuMAZ4nZ1sMXA7IScXYvYdFbJyCtR6 lbm [file] AgICAgICAgICAgICAgICAgICAgICAgICAgICAgICAg ICAgICAgICAgICAgICAgICAgICAgDQogICAgICAgICAgICAgICAgICAgICAgICAgICAgICAgICAgICAg ICAgICAgICAgICAgICAgICAgICAgICAgICAgICAgICAgICAgICAgICAgICAgICAgICAgICAgICAgICAg ICAgDQogICAgICAgICAgICAgICAgICAgICAgICAgIC AgICAgICAgICAgICAgICAgICAgICAgICAgICAgICAgICAgICAgICAgICAgICAgICAgICAgICAgICAgIC AgICAgICAgICAgICAgDQogICAgICAgICAgICAgICAgICAgICAgICAgICAgICAgICAgICAgICAgICAgIC AgICAgICAgICAgICAgICAgICAgICAgICAgICAgICAg ICAgICAgICAgICAgICAgICAgICAgICAgDQogICAgICAgICAgICAgICAgICAgICAgICAgICAgICAgICAg ICAgICAgICAgICAgICAgICAgICAgICAgICAgICAgICAgICAgICAgICAgICAgICAgICAgICAgICAgICAg ICAgICAgDQogICAgICAgICAgICAgICAgICAgICAgIC AgICAgICAgICAgICAgICAgICAgICAgICAgICAgICAgICAgICAgICAgICAgICAgICAgICAgICAgICAgIC AgICAgICAgICAgICAgICAgDQogICAgICAgICAgICAgICAgICAgICAgICAgICAgICAgICAgICAgICAgIC AgICAgICAgICAgICAgICAgICAgICAgICAgICAgICAg ICAgICAgICAgICAgICAgICAgICAgICAgICAgDQogICAgICAgICAgICAgICAgICAgICAgICAgICAgICAg ICAgICAgICAgICAgICAgICAgICAgICAgICAgICAgICAgICAgICAgICAgICAgICAgICAgICAgICAgICAg ICAgICAgICAgDQogICAgICAgICAgICAgICAgICAgIC AgICAgICAgICAgICAgICAgICAgICAgICAgICAgICAgICAgICAgICAgICAgICAgICAgICAgICAgICAgIC AgICAgICAgICAgICAgICAgICAgDQogICAgICAgICAgICAgICAgICAgICAgICAgICAgICAgICAgICAgIC AgICAgICAgICAgICAgICAgICAgICAgICAgICAgICAg YUDcFPUfECDpNGAzFLBfSPVjBODwOKCySQJgTQZpPAm9K2kfVWUxJNRzYD7cNXb4Uk0+DQoNCmVuZHN0 wuTivF4OIG9vw9RrLBsyVUSmg6CuNRq4LY9DCLYdIDytHX1KLLfewj2WTCYzZKWdsUMMv5tcIlYvQZZ8 FEQxRoboJP5XJCItG3mxgjOyRKDgYEVKMKrlGGMZBA edALBWYTVuTAWwNpDrXmWeLHChWFStVNXVWMX9PMDkUlNqBWVoTCYjVyUeDRZCYUIbTZJfVmZeQXqzCZ 9We2RjqVQeXZ7PFs9QYlReGP2pso8OSKuvPFHjCrhOUod5JMbnKW5SoDYwgVN8EWDnPFPFHgYuZ2mpl6 PyEVYvKUAMFKjoVJ9Nt9CvhFMnTPq+Rv2EXR0kk1Nk UIv1KKBiGM7kjm2RVZnTYjUbC0JxvTztRAZfxxL2tMRoHXW2GEghycHDz3octY4yryjbREXkIAQgSu5r WM8lFNDlEWN3EyHpBYDXRK8NWLRvGVStzORnIOVkHEZJKR8JJZpbPXG3TkitifGigGZwJRdeWQ6LAPBr bnQgNDkgMCBSDQo+Gk3NRN1lx6UzKHv1LNMzUJ0wav 3VOQjSFrBmZ4X5eYTqQ7W6ESsnOc1AUQBnMCLnKUpdVMXVLPdbVU3JWJ5funC7FS7QsSDyFOFgFNDqxC BaITi5R29oqSGoSJnwVA7ICVL+Yadira+Sj0ARYJkJHQjOMPfHdVjPLITEgVzF3RkK7LEk2IbB3TtQV87eR gbzkIsWWgrPS9EPG0eAIEhVGOWXY7IrCLoxP3yywE3 PQLeKTXIRnAaG77avPXkWKStLNQ4LQZpJh0BZCCgL2SarbNtiWprrzXrEOFhMDGAFS1FHCrddwVvmNUe oXgsMY09pRaiBR0MVn7URmVbNZ8qmh3FrONxKq4AOVY8Rx3EIQOpPBReJPJlZII5MULkZmFnIBjqSLEf SUFtRGS7LWMsZEFaUA8RKzBqMUXdFfWnPUQmMNHoCE Zweu0UOWMjRQO2AXa6FfQbOIBaCMKcXXwmXAJmFRUyDLW1VAHpCVEtIV8PAmOwLRPkCAA6TIQmOPPsIP Drjb6WERMvLUFqCnz5CKQkVPBvXWJeTZnyUCWuAYQ6JGF8LTTeMJJsJG0HVaYkPNKdTWU7CrLcINMbWV Whiu6GGBKeGUJcBxm7GfTbSPMiKSNkKTalJXJwUWT8 MmEtNPSnXHNvZI8PZfSqGYBuKVl7YobbGZEhDSNdrh9GYXBtFVBcKNKxIBHnNOUiWWWaDMgmJOKmJVS3 HBA3GPVwKDFqJK1ANgNsNNExTXPwJbHmARWxLCYacd9WIGXaIXBdLjL7BSYlXQZeKHYwJBxlSYGmZQD7 FjmiYTUvDWSvPJ4DCnFyYFPjQWm3TjsfAZNkQUYqyh 7YLHAgMOJvMQG8NELwTISfEGQwKSweHZLcGRIbZyjdUKPxVCMeSG6PYyTyKYOcSzX8JAgzBDXzJCCfmv 8NWYYtHDDuQGKwTmQeGOJlARWpZYrlBWUzNYS2RsS5BHXeSBLjAR7JXaMtTRRjHjKuYQIqQOWhXYMmmz 5YJHKcUYIvOkOnIQBjWCWbISUhHVlzBHPnEZR1MNq4 OVXsBUDwHG6HHiTzHMFaSjd4FltcZYEeTVKltr2IQEEhLFKoCrv5XpYwUGMaNPUwKGzaSACjWOC2FEA9 ZSSyTGJlOM5UMqThDTOkHcboLuYfZLQkLYDjmt1DOCBlFUXcQJHiNyXyWHXsEMGvMSkeSZUaYMVqOZT3 CWElIXFoPC3HQmVuAUQwVsCfEaBoHGNsADQcox4MMK BoZDFeLVX5ZeUfDJBnEREgFGvmPYCdJZLvDTLkGHUdQALdIM7NWtZdIYLrGpT1YkVoFHAwMONpzt7EIX DuTGJaRTydDxDbRFPuDWFpXBlsIKZlOWAmGMO0ASTbCUBdOK4YYeMdRUMeHfDbBrThQDBnUYJsxs6VME SpICDpTlI0PRGpIEOfZHLeTXkoZOCpWWC3QBZ4VOVs VKWgGT2GWiCnPXPaLTu0KVGhLUNmTZRmup1BTUBdJJM0OiecQFXnAAVhXUEkYFwzKXGoNFJ7XrN9WIUk FSFjHX3VZyWhENKhPEh7PhjlIHIxESIgmt3FRKOrYFU5FHtpWSOoGJBcOEKaPIopFDIkLQY8UDDsAJZy ZHYuPV1WCqIpHUJuJpQbHMGaZLNkZQXzme1PVTOnZR T3AFT2QuTqSBCpJTLxZSjiEKPwEANhWQR8WGGdNDBjLT2PZdWjFOKwCgFtALmwUYCqQGNjcn1PVIVrPG B0MzZ0QHOkUDCnMMSjJDz7wyDknOJdNHx6CY9ID6HaryFsPAWXTt8Lb475IHRbXUCaIg4UT3wqIc6oTO AaRRKCEh9GBFl1ULXzQbN9TFGdIIU0BDK4SdWoNOEp WsS6X8CtX6PiWGO+YRa5SOH8QJEyHyPtEKF7DIScFUUdIRN2NBPpEyL3XqE1DL7vWGYVWy0+DQpzdGFy cTepSAPBUcChHTYdYAyfEKASLb0N ID Date Data Source [id number] 07/13/2020 05:52:[address] [facility] Name Value Range Interpretation Code Description Data Evelin rce(s) Supporting Document(s) Nursing Note [facility] GILTBz3rRqISCqVr86/FHMsuPMYnd3IpWDjsKXh7JDvsYBYwF0WcPJR5pJ8dFEJ8JBhBRsZrZbBsLoU1 lbm [file] NgO2KOG1dRJhJm0SUuT4IcDSWoOaWI6XAPh= ID Date Data Source [id number] 07/13/2020 04:31:[address] [facility] Name Value Range Interpretation Code Description Data Evelin rce(s) Supporting Document(s) Progress Notes [facility] SSWRJp8fItDIIcGp90/WBCxnBCAai3UbPDyvEYz9EEttCXSaV2IsIVF3dQ8cYGE2KJnIQpPlAvDaZwA3 lbm JhOojXXfZoSHSsLzzLGrNxRByhYqwgsCHlFF5GfCU8ALSiQ40yRXKvLOFjY6AdDGE5TKb+Xl3FZZSszG NaCV4VSisA4Vkkshb0Ox8fnD+AZEF3OlL3gC36wxBNz6irkbE6agSdGX+ljF1px0Ax93ln3p/qT+zukr G8k27lxMG2wuMQR7gU5lps0env7j9N5r+i0wwLjFVq +X//C7r1TPjTR/8gHqYF+y8ir495pHjjIZnH07Z2S6JdUaIIYFbW6A/7MIKoEQ1dUxyFz8WoLs0FbCIb xFuf+FOlN/b2Pwev1YDAXQ+KbayPvUsUx7QlvAG/ZeAZBOxiT2m92Y26+NKwKPca9xI3JQTDLLWX0KpX IrtHeBIYMDhYQcaWMnbrO66goOVkhDyrxTfdN1zvqz GP3otSMQ3iesuDFmhJsMsAENuZQBeJnSOxBwDEepkhBNRO+6SP9Hujk5mEmbZXb5EmVsFymmxFIN7T8G qGVSNGeFMJPsk0nMKRoBlM3qQcGD5p7Pv+s5t/qo1/BmSFyJA37y6xZr+Rf2zGPjL/ddRbPvyFIWDX8S nwlgmRmA619OeBr4ORKhL/uYdiHjkZ1cFCtr8US44x dnFhnKYPxK+pxljUmBNL+QElW77684X2BhFe9RNuup06joLbueCD0/h+Nf/4q5S3+m//long term/HU5+qVYx [file] ICAgICAgICAgICAgICAgICAgICAgICAgICAgICAgIC RpVFUbRHUoZXArBGZaDXPfYEGjCIZiEZWzLXTjUKFjUIGiOFMsFTXvVNFjFXLvRAOfCZZcAMLsZX8TMP AgICAgICAgICAgICAgICAgICAgICAgICAgICAgICAgICAgICAgICAgICAgICAgICAgICAgICAgICAgIC AgICAgICAgICAgICAgICAgICAgICAgICAgICAgICAg KWJaZRXlIJ9SZEVkMKXeJNMdEKPzANCaJKEaVMKyKEAmQPOoMWWwQLPfOYKqMGRhCOPyBHQdVJGhQEOi ZISwARWqWNVoRQHgIDRyIAPxLAKeWOYbMSZfUMGgUPLqATPjBVLcDISxJJPeTHXePT8ENRPwOGHrCKYu ICAgICAgICAgICAgICAgICAgICAgICAgICAgICAgIC AgICAgICAgICAgICAgICAgICAgICAgICAgICAgICAgICAgICAgICAgICAgICAgICAgICAgICAgICAgIA 0KICAgICAgICAgICAgICAgICAgICAgICAgICAgICAgICAgICAgICAgICAgICAgICAgICAgICAgICAgIC AgICAgICAgICAgICAgICAgICAgICAgICAgICAgICAg MWEbODEgEQJrKJ0KIYKcULUtHDQqSCXwBWEtNDEuJUMnRBJeACGnRFYoJKNbIASqJTZkJPGbULCpGCWc AFDfGIKxXMSqILJnNNIaLBWxPFPmDFTgJEWhKFLdOMHoZFNtPGNaCRCiYPCwETCtSWNnWD4EDYEkZGUb ICAgICAgICAgICAgICAgICAgICAgICAgICAgICAgIC AgICAgICAgICAgICAgICAgICAgICAgICAgICAgICAgICAgICAgICAgICAgICAgICAgICAgICAgICAgIC AvZU2KYBAvSCYnSUDaQSEfGJFuGYDxFIIfYDUpBIDpTDLrFESfXWMwVBAnNQRkUXRzJNZdWSAdZXOyRX AgICAgICAgICAgICAgICAgICAgICAgICAgICAgICAg TJVbNUDtFZSiIRGcOB4DOTEqJVGnNVVtUZCdFPPmZWLxUJDiAPXcPYVrBCNwGRCgDHWaHYLsKXKlBFFq HSSnTYCwQOCoKVWgAWPrGGEmZMXbDXVkIZEeMQFhDHMzTIDzEXZzACSdPPAnHWExLZEzQDIoGR7KUH42 fSAyx7T0FMIcPZ1lxtc/Ns4WWDqvluKveTOvLB6HGh MvSW7egt3DIiDjIB4dke8DSRuSPoKvZ9F8nHVeWYMwPKVSLqUpH26zIUurNk74MMhoWVIbKsSkBXx7We 0UEqMcU4mhRUIoDhL2JPVdQmO3MJMkMhG2KBYnKdDfCOynJE0Jn9MvgZZpAXw+Vc2ZOF3gq6ZkBGqvKh SlCS1yde1VVDtZFlIqA2UrgpL2PPZuJWZqRs2LTIZs ICExbCAmHmOlLZPULqEkA7KtqH58SQIZAo3+OEqykaPdXkfMQtIsTQQsp3WsUCc6AX4KPYJkHBr2zIZk UBGwF3Hfj9LcDr22NGWcWcklGdM0SXqhpw7zOKWpDoxhTZMxDZTuLl3wEE7yPLRyJFS3UpJhYFXNMV4Y VWOfEZEdqXNqLFUxNHAIDE8JRFwmBEX7RcpzziYclQ PbFUxrGG0NFVDozqJmUkDxRPEQVEk+Df0KAK4aw0LjGYixMCRfYE3rqy9FLIwZMaPnX7D1iIIgV6V2JB jdRo2CTWOtNSRhWbUiWPANJNlwBZ5LVG4wjhM9XJ0EgRWfBIQuMTKinQFzPNw8Y00fbUHpIUygQW2MZU A+Yadira+Jt6CNFTeYKAoTJThNfOvDMLJMdEuL2QkR8FQ d1GuG7JrBH64wHczzpMoVZywQN0IEK5sWGRfYXBOAU0SuRZlhA3ybwIvJsEyOWDMZhVnS59hiXGvTOYg GIYbJHXxPg7FFNRgA9HrzvVyrBzhioCbZSYuNZGVIB3VXQomeqCszCToaPadNL80iIstJX5GSi5WTcRe BG2gli8YaEPyDu9SWSWeQX9JVBZiNIIhYBMpMZI2TC BxMjKdNIbuSWDmKRKiOMQ5RVNnAUCvZC1ZYzDzTKBqTrodQVJsZNRgMLVdyz2OMIYpTELnURb8QdZkKL YiJAZlEThaJEKoHSRaHZE0HMNrIVRuQH8LUdMmHPSlJLP8BoheMZOvLDGzpf2DEMHxLOGiNpBbPXDySU TsTXCbNPmiXRDkILF7BhJ6GCNuAWRmDJ0TTgIiMEHo LQN5OEYmWLSnAVGwys3RWSRoKEPpLrm6OjPdNLKdFKAkRVrqLQDvGSP2GKh7NBIeOWIzEL7ZZxIdVRBk NOxkHxNfZJYzFPZhjs2SRVVcDEJiEIRbGVNrZEDwRYWdLDwtNNZsQZH5QBE0JGDgORWcNF8KMwGxPCNt VSP6HUSuHDKxYQAeea0ZEHLcZGMfTOA2KxWwMLYcNN YwQQvoSIEtYFGsENY9THGrLNPtCC2YVhJbKOQfBeSrDEAkAWUmDKTdns4WIJXrFWVaByUjWKUgHPHoNW LqLYxjYJJvRPHiWrJbTBEsEUJiNO7GJvFzOUHuQlO2PUKzHEVjARWcqm8ZLAVtSZWoBALeJcNxZGYoIQ RnUCvpQZAwKJF1JKR0XPCcULOnQE4CHbOwCMDtOfRt IuGmDNVpYQJbnh5RTDNpSVVqQVVmFKJwHIYpHUEhGWjjHUGdLSW2HbiyNOLvWBKoZQ8CEaVmIOQsKyZ8 GdWsSQAlJETsah1FUZWnRPWaBkcnNBEzTWGhSDDyRFyzTRUxUSY9BptiBZBqMYBbEG1BVhKqZFQpPvu8 QxrwMBGeOELnrv1WQVWhCAAoFFF8TFTgIHMyZQVdTD lvTKImXEO0KROjSWZtWQTcHI0UKaKbOBDmQat2MxCfXRDuMQBcst3OTRMcAIHlEHNwSXQmFNCdZOHrIR rxQZXjMUTeKPtmGXIzARMxSE9QBdZuCPisCFLLLop8RKceM3l2INDnLD6HL0Mid4ZuOtNrOSXIIIgoXM 1eveZdSNIeOt8PM0hBGlggXXGyWqrvYiR0IrU8HTTf WyZ6JSW6FjH6NSnhDuA6NP6mCAN3GhQhNALbRbbqBtlbCrMmCxSsAOXwALm1EWLzKpf6ChIyGZ7BJa3Z QeV2SLF2fSLmRw1ZOyU5NnFJYxDlEH8RPZw= ID Date Data Source [id number] 07/13/2020 04:04:[address] [facility] Name Value Range Interpretation Code Description Data Evelin rce(s) Supporting Document(s) Glucose, Fingerstick 154 mg/dl 70-[address] [facility] The above 1 analytes were performed by [facility] [id number] [place] [address],[facility]#: [id number],[place] [address] ID Date Data Source [id number] 07/13/2020 01:37:[address] [facility] Name Value Range Interpretation Code Description Data Evelin rce(s) Supporting Document(s) Progress Notes [facility] APFMMb9tGtXZSxSh78/TNVobTWJxd1NnVSyrWIm5FWvcBDIxF3CiTMW1mQ2jAYX5VAuKRnIfPwKjTfT0 lbm [file] ChDL3KGWj= ID Date Data Source [id number] 07/13/2020 01:14:[address] [facility] Name Value Range Interpretation Code Description Data Evelin rce(s) Supporting Document(s) Consults [facility] URJIOm1xAjTGAuFa74/LULdsONLgw5ZtGDppFSt3DNylFPFsW5EjGFG8tN2xDPK7ZFnCDsOkDsLpExO5 lbm [file] ICAgICAgICAgICAgICAgICAgICAgICAgICAgICAgICAgICAgICAgICAgICAgICAgICAgICAgICAgICAg LLYzKZTgRQNpTESjRNDlQYHoHNWgKIBgRTAqWH3EFISfLRTbWGKwMENgOYTwHAVjECUqRLUaCHWbBGPl ICAgICAgICAgICAgICAgICAgICAgICAgICAgICAgIC KaTDUjYEYfSQHlOKYzVAQcKWSwBSDcBJEeANJeYOTiMSDkDLXhEW1JWVCfYANvDKLuWVFoFIFkYZYyLS AgICAgICAgICAgICAgICAgICAgICAgICAgICAgICAgICAgICAgICAgICAgICAgICAgICAgICAgICAgIC EzVHEsKWSgMAIqNFDnNZMhTNBoXD9WKBPwOVVzFGDs ICAgICAgICAgICAgICAgICAgICAgICAgICAgICAgICAgICAgICAgICAgICAgICAgICAgICAgICAgICAg ZOQwKFTbOGNqCHLnAORwYWSnUQKdYPIcYDMkTGTxUM3VRWGxZROtMRClMLYiHEEfZQWqQKWiOOGhSVAt ICAgICAgICAgICAgICAgICAgICAgICAgICAgICAgIC IfFKNqNTImOVKkGUAiSMPtBBDtEFOmNAHcKTQwEILxMIWzTIDpYESyCZ2XNTYdXYYkNUPuCPDzVPXxXG AgICAgICAgICAgICAgICAgICAgICAgICAgICAgICAgICAgICAgICAgICAgICAgICAgICAgICAgICAgIC NxHMTvUYSrDFSwOGHaBFPoLSNePYLvUZ6XAUWyETRe ICAgICAgICAgICAgICAgICAgICAgICAgICAgICAgICAgICAgICAgICAgICAgICAgICAgICAgICAgICAg SWAjWIKeTSGwOBHaJNBqFYCqSHFgIOOnDGNlXRLnGKJtMV5SFTEeRTSsNKJbEQAbVJFcGHQdEWAwBMWi ICAgICAgICAgICAgICAgICAgICAgICAgICAgICAgIC VfEOFuNRSeEDSlCYBgIQAfNDVuERWiVXCiZRUrMWJyGYHiRCZwIXQfHBTjAM0CUEYpBKAdCCEoDPEiVY AgICAgICAgICAgICAgICAgICAgICAgICAgICAgICAgICAgICAgICAgICAgICAgICAgICAgICAgICAgIC CbEQDpPVLgYALwVEJoXZTaWQQvAHUoLUIuUV8KIQRg ICAgICAgICAgICAgICAgICAgICAgICAgICAgICAgICAgICAgICAgICAgICAgICAgICAgICAgICAgICAg SVGzXSJlSSYgAGZoLMZuKSPgNSQmBATgQPLxLPWyYXIbTGPmYE8EJE90qULuc6A7OUNoMM6ejqj/Pg0K HOpusuEedJEzSV8KWeElHL2agg4RSoThQA3rjv4FQH aIFcSoT0G8oSSfGRUkQYJVKeFtQ99bBXfrRj99IDtqXTRiFqSiUWu1Rt6GStWyK1ceJWHrNhZ9FIMaXh M9CEDqQqV0PJWrObXkFXFsVFPqWPSlIEHHLFF0XYSfXtBnHiEkWXQoIOnaMJUWNWCsKDXtGpWxHuJrVC YxSlVfZADUFU5RHfKsJ5VemB02DDTqPVx+Lg8OCI9i v5HpVFt1MFTuZM5oux1WRBlSLoWuO2ZexoD4SLBoYJOrTh3URVSlOWSisXN1IJTlLTRVEuWlW3PmbS16 IDENCj4+RQbnvhLyHvlLLdDrBVGsf3CiFAg4MN1RYPLaJSl2dQThU90ux1HbnNYmZrblA7B7beA7JXCw gBIdRVRCSYNhkVNbThN8PxFdQqOdJLF7MMwmME2vEZ cdQZ9MYOJ5UTqxOHQwHUDdV9aUAtGzZTvfDWVgkNjcIO0QEaJtK9MlnpVqcGO3CPXtNFQCNd2+DQplbm EqIbdNXlHrFWBas5NjHFn8TC9WWSSnFLksEP7ELPZntY3qXCtbAQ7CSgE8ZaNyLGRCMsTaN98tkYUbPB p6X6NiBkOwFTEzLxsyBBGpJViyZgPtRSBoXlMvYBdq ID4+ID4+UBhhGW6NZGltosObSMBmJd3BFEHsOAKnEH0qIEQcVWAmY0R4sNukHLANWbNzQ7qzurayXE2w FWBtR438jJclgdAuLEO9LXNwAi3DNLAaZXF6XXCnwYBcJMznAEZZLZjbKS4FkPOvJWR7jB2oJAthDREf CLBkQ6sJKcAdkYodLK95eMzbbjMvmSMmXZr+Pg0KZW 3av6NkRKx0cxSbMPdqTJIrFCmjFRHtCMDlFBWbCFF1OUH9BCKAKiOxBJOeJLAoSPqfLPYuPZCoow2UOT WuBPQpAjheGTDmEWUfFCXnNTkpTENsVKA4WhQeYZBbGLZvSE5YSjTrQWIkLSMfBAqnMKSwPWWlph7NAR NlWSIpNUAzMhKtKZWbFAWmGHzaFIFfRJG1HxCmRLHz SMTfSY7PPfLqOJVhOZrbZQbpGWQlBEEjay9EVKMnQHChKrCsIdZbOZEdDYPrFXhqOSElNCM5KLIbMFFh MMFyEL6NShVxPDMwLRmyBMYqINUoIHJcct2NBJKcINGaFJa2TDOsOXLuVFLoKLfeQSVjFRMqLLi8HBRi AROqON4LIdSqHWCrXXFcNaWmQEWiAJHmtp5IJDFtYF CzAzCzWDQuBYUnWUCnDAejWVFbRHS6RcW6CZUfULXfRR8MMqJhXGQgGYB9TeGfFRBrNLStga2LMZHpLL GkIWW6KADtAQVdOGAaXWliYNOyBJC3MYKyYSHkPUNkSZ6XMyTpVRGaPePrKIVoNOQnPHEvut6DCJIvEU QjIPL9WZKySZKlHMHpXYmiBLJdFZCxBQQuVCCcSJLd BI6KWhUaEITlUrHmPzBqLAZjAVCfut9HNUJwTWVxYuW6YLAvVLUyJZXqQAfzDCGqCPF0JbC7HPIgKIGx UW3XCuWzLZZaQnziEqOuVMSlFUQnex4XIFGtLJNiToVdRZEkZLPlYTHoZKjhNTXwQTN5Xsl3YEKiOEBj RK1WClPrBSYcVlu1AWnyRMMxVJXpnc4FKXXoAZLnMV I7GyIpOTFgOJDaJCwlPRJmKEG2GlQ4AOHxFDFxXD6SVsTcNWMrBtn0HuByTWExRJJgne0SSLZmIJGnVC KlPbUwPTCeGRJiDQbyEWWsFNNgPGq9JUEzUDVcPO2XSrYqMEBrWhQeXwCzAVBxQWWdao5FVDRiWSYgAF K8RQZaRNQoAZFgPAskJBAyEIXsXiKcOOWgPKVsVM4M KvWhOUGkAiV3SppgHZOtXUEyke0DMMSkDWXzNzpwMtHeOTEfWTSzCNerRJSwKTUxDgu6RPZuAKJlTY2T EcAfMNCfExJ5OUSzYMVeHAEtrj6WVIQkJYVfXND1UmXnFKNtJVBoSXkhRXJwPYY3PMDdVHHhZWIeVT7T FvQnMWVhGvCjXeFoOMDgIXUagf1EJXPvHXMnMSDiIs NgYGSnOVTlWLclFYWwZDL4Qcx7PNUaLSKuFO4YMrBrSMOcXxL1MQWzFSDsWINbfc7QOHUpNNEaPel4Np BqUFLxPXBkILnjHHRgIZY6OjcqXBMzLXNlDO1AYwOeTJKiDgc4MAvsGWCuIABmfm4JNEIpFCAdQZt5MM WgLMSmHIIfYMsiXTBuCIE8RMZkDQTvRIRjUP3ZSxIp IGbdIITORgx7RQpoV7n3KPU0Hp1VA9Dfp8PrCBAtUTGEAWgqVY6zndNkUFQuOf3ED7wHQks8UhTzJKHp Gpf9GHTsNSvbLoGuSav1ZypeIkMyUEVdTx4eQKi4MBXuBuHxGMumTkKkKGWvTSTfNsHhWJNwNKB5YJMg MaClWI3BDd5ORkZ1YOS7jMAeJw1GYsogCGFWFvLvWO0JUYe= ID Date Data Source [id number] 07/13/2020 01:13:[address] [facility] Name Value Range Interpretation Code Description Data Evelin rce(s) Supporting Document(s) Progress Notes [facility] WYKZAt7xHzFGHmLe45/XEBacMBQdi0CuDKobPOk9PYyqDKEqS1SyCZB0hF6wLHT1XVeJDgOeBoGnPvV6 lbm [file] retail product advisor+hFwnk8msezr7iKPc/Gs37Q/A0Kbq8iodfeGyTdkyYM5/8Dq5irp46WmgRi4E9h8uBcgr8nVlL5c8 [file] AgICAgICAgICAgICAgICAgICAgICAgICAgICAgICAg SBXnWWFqEVIxPR8MRRUfUHYgVPHpTCDpIZMfUVNfQZWrXVInKDEjELVwDUYlDBZdKPHeEBVhTQDyFIPx UXNqKXPeJCGtITCmOEOoCUAhCVWsGUNuLIShEWLrIGTwKRCwUHPqQMBmMSXkUYUzGBBeNE3LPSIfMDUl ICAgICAgICAgICAgICAgICAgICAgICAgICAgICAgIC AgICAgICAgICAgICAgICAgICAgICAgICAgICAgICAgICAgICAgICAgICAgICAgICAgICAgICAgICAgIC QeRK9UTVQqMNRtVESyDVNnHLYyMYEyOJQcPGJrJUFbFOXdVMAnVXJbGOKoQKDhEQTdPMOqIJAzKSVuBO AgICAgICAgICAgICAgICAgICAgICAgICAgICAgICAg HPGlFFHoYKYlYZJyHV3YSKTpYQJfELTfNDVkOMJvNPNwPRRgUCNhOJUqHLSuULSuSWDzIOGkPMKqNORp GIDdYJIaNJDjKRUmSXNwPRXlJDTqPDNpYNCmOYSeOXDuZTYnQGDcUBFfOOZaRHTeGNGeMDRfGJ0CJLHg ICAgICAgICAgICAgICAgICAgICAgICAgICAgICAgIC AgICAgICAgICAgICAgICAgICAgICAgICAgICAgICAgICAgICAgICAgICAgICAgICAgICAgICAgICAgIC XxZXVtWY2VGTAoFVNgWZUoTAQiPEUgPZAhOKNuJKSmUSReWGFiWZPpYVBsRSVcTITpKHRgNZByHXZrOI AgICAgICAgICAgICAgICAgICAgICAgICAgICAgICAg LWSsKBArOOVkWOAuHIJsIV6TKWDtUMUoHHKfFPBpTUDsVXJiHZFqTJCnUONgAOHnKDHhCJKuIPStZOXa MPQxSUDlHDFpPTUhYBZtEGViNSVdTANoKPVfTMSuUCJlSCHlTZLyKLYgJPDcRAMsPNRgZJXaSNLdFR1A ICAgICAgICAgICAgICAgICAgICAgICAgICAgICAgIC AgICAgICAgICAgICAgICAgICAgICAgICAgICAgICAgICAgICAgICAgICAgICAgICAgICAgICAgICAgIC PrDEEbRMUcXW0YJBPkLOJpKXWaGLMgERPeYLQzZFDkVUSiEKQeURPnXRWqZKCoDKJrAHWvPEFzWBXdTS AgICAgICAgICAgICAgICAgICAgICAgICAgICAgICAg CIStOWPzGUDuSSCzFXMmNUGpIW6AWO50mIFxf9V4LNKmXS7zcfc/Qw8KHZghgpMlzROmEG6FYyMkKN5a ku5PTyTlEB1ycx6UMAnEPkDeM4O0cPKpALBmSEAKFdMbV90vCBqiYo62ZOvjXSCaQuDvVCc1Wl7MSnWd A2cqIRVvHdF7AACjLcT7JVMxSwO9BDHyMySrCKQnBM SkCACyBFMSHCI6SOZvGwMeCfJuWYLlSQnzOPNRFS3UYmQhT7FshN24RNvSUz1+DQplbmRvYmoNCjQwID Dnc9NxGIt8VR5YBWAdLeadl0MbQSLkMPEBALxvFN3RKBO3JJJnSUDqXi5ODFSyN354wkIdBZ6DOi8SUw JnYC3uqd5IUYZrAAEvQatAXsj3SWdeVS4FlOQbFYxM sj1dhnEhktETf1KmnpOzfSYSNQFrUYZuINW4CNxeCD9CNYC3SLPlAEpdRdPsABPtDCgvWzGTQXgEFlAn Y4Fxn1LgWvH9WJAaZlJtMJmgNIGdMiB7CR06nZvgCS6KPIBcZRXqDK03AFXyZOQfCf6UJq1KWhKsXF0y qr7MDFUsTQYrBlbEEry3WLvaEC1FtMJyD7QtsWVjr4 cOSuUrP3UPMJH3JAUeVr8TVTHnOtLuZSGrWEmqUM9oEZAyYIUBqMbjklR4VG0DKL1nooDgZC6PGiOmPp 6lNa8QTrKfF7JjJ9XoKNThXUEQCGrhSG2KZDnsTM0cMR0Qh4TTrHGofN2paa8UYEKoRGLcBdgagy2WDp dkW8P6uSpjFJKsMJOjSZMFKJdtDC0YESFkCWR4EBCg ZYMgHOUVDpSbA43aDD2OR7Kss41bDdK5JHKhAkFjXQhzQA32aEdlnzCfxUIxnAvuAU7RBj0+DQplbmRv NjeYIrxmPOYSYaFvZQIXLiGeZKDgFWQrQWXhWtX6BpPvTu0RRLSqLRYbFZGoKeBbIOUyJHYdBSteMMDu GOX4YgO9QPNwOCElKM9VSlAkZALyQvZkVaNfOYVdMX Ehwe8ATGPsNPVbKSG0GbDiHERzIPBnZQfwWZCzPNYwUAFmWJTtVBNzMQ5MMpVtCQGpFNZoKuRgLYEvZZ Jthz0LRSJqOHLxOXvxHoLzFWIbIPUtZKbqNGTgXDW5WTW2RROvREIiGA4FJcLbMLLiZEu5KVMrNCJaOT Eket9JBVUfRJStKqtqUGSiMCTlPNNrWZbfPMSuIVO3 QrM8BNXjFWLrSI3IIiOiFIHpPTj4EaMuTJKcCXHlgg0TYEByYJEvJNvxGrMbIENaFYXiNGmlJUCsMAYq CSZpJEXoUMKpHY3IJqZiAVZaHGC3AWNxOQBeMSDoxr6BMDEgXODwEMQcMfAlQPFbUIGaFBnnEORdIJB9 LavlVSFbFEOtIT0FCjNoGRSaCHa1RyWxXVPsDTIkot 1OBHDpKEOhTFazVMHgKALjRXXqOLozLNKtNVLpJNGgAVOcFGWoHB7OKjYuXXMoCoEwYAheBIWcYPIbqj 8UBVPpOVAyZXXsMBViHFGpMJQsZSezZQPuVALmNNp1QMFhRGHpDV8TByJpEBHoFxA5KRhnSUEkNZPobf 8JDCAqEDFlKdG7CcZnAUHnQTErFOjgAWHoDKUfUEV2 TTDiONAnNB3UOxSoYGKyPzN4SWtrZUIlGWHqud7OTNDiWYCaMfk1WIJhKCEbVBDsTMnfPCRsYHN1DKsp WKTqNPEiQQ1NDtYoZPDuDeIbDwVaDAHeTSEriv6SHPCiCWEcUIHvOOTwSMOiAAAoNOniZZFvLOZ1OCK1 NZCcBZJbJY8UXpFzHFHwDeZ9GFzwBMYaXLDaow7VSY TpBPNuJfH1ELNoNJHsIKEgRGnmQNWzDRI5TOoxESHkZOOlXG7AYiYeBVKlZxo5TtUpGHTjBQKnxr9CZK UuOWWwEEI8IzOrJMDgMDYtXStbLUKvWQQ8FkYxQYJhCRYpIK9DWeWaOUNhTix7TuOxKILdOSDtts2PHP OxMGNzCRRtXWKfFKDnTJPeVMmzOHMiEVAuSyu7DBJb XZHiWZ3PJaIcDJLpKjT1PaKxPWNwMLSkdj2VdHMtnMcrsx8MRRdCZw1UyUzzURBvGYkxOl9yuKY3SyOn HWWYWq6HcyHqZYDtCFHZTWezYSEjXQCoNXUmGNGxVzmyCJUqHTmtKMHvFpHyPSDbXAInV0I0SkV4MEWr CAN3FnC8EFZqIpXcYKNmZGA5SoI1SPD2YOZwGhz+IF 0gDQo+Mv7Wd0IzlzQ4ooArVVffTNW1Yi0HRXTTX9HCEo== ID Date Data Source [id number] 07/13/2020 01:12:[address] [facility] Name Value Range Interpretation Code Description Data Evelin rce(s) Supporting Document(s) Progress Notes [facility] FDWXUh6vLbZGNiRn64/SVDbuXOLiy5EaTQpuRNs3CPsuIATbZ3DbYRY1yY5aNLG3TYeWUrAdTkFxSfK0 lbm [file] AgICAgICAgICAgICAgICAgICAgICAgICAgICAgICAg ICAgICAgICAgICAgICAgICAgICAgICAgDQogICAgICAgICAgICAgICAgICAgICAgICAgICAgICAgICAg ICAgICAgICAgICAgICAgICAgICAgICAgICAgICAgICAgICAgICAgICAgICAgICAgICAgICAgICAgICAg ICAgICAgDQogICAgICAgICAgICAgICAgICAgICAgIC AgICAgICAgICAgICAgICAgICAgICAgICAgICAgICAgICAgICAgICAgICAgICAgICAgICAgICAgICAgIC AgICAgICAgICAgICAgICAgDQogICAgICAgICAgICAgICAgICAgICAgICAgICAgICAgICAgICAgICAgIC AgICAgICAgICAgICAgICAgICAgICAgICAgICAgICAg ICAgICAgICAgICAgICAgICAgICAgICAgICAgDQogICAgICAgICAgICAgICAgICAgICAgICAgICAgICAg ICAgICAgICAgICAgICAgICAgICAgICAgICAgICAgICAgICAgICAgICAgICAgICAgICAgICAgICAgICAg ICAgICAgICAgDQogICAgICAgICAgICAgICAgICAgIC AgICAgICAgICAgICAgICAgICAgICAgICAgICAgICAgICAgICAgICAgICAgICAgICAgICAgICAgICAgIC AgICAgICAgICAgICAgICAgICAgDQogICAgICAgICAgICAgICAgICAgICAgICAgICAgICAgICAgICAgIC AgICAgICAgICAgICAgICAgICAgICAgICAgICAgICAg ICAgICAgICAgICAgICAgICAgICAgICAgICAgICAgDQogICAgICAgICAgICAgICAgICAgICAgICAgICAg ICAgICAgICAgICAgICAgICAgICAgICAgICAgICAgICAgICAgICAgICAgICAgICAgICAgICAgICAgICAg ICAgICAgICAgICAgDQogICAgICAgICAgICAgICAgIC AgICAgICAgICAgICAgICAgICAgICAgICAgICAgICAgICAgICAgICAgICAgICAgICAgICAgICAgICAgIC AgICAgICAgICAgICAgICAgICAgICAgDQogICAgICAgICAgICAgICAgICAgICAgICAgICAgICAgICAgIC AgICAgICAgICAgICAgICAgICAgICAgICAgICAgICAg BWAyEFUaPQEfLCNuWQHrFYRlAZRdNZUcWEUvXFEgJMAqRQg2X9ozQUFuOHXgOD8oVPf5Yc1+DQoNCmVu BTA2atEhnQ7HEY2ym2QpBThdMTAck8HjOAl3TI5OKTLyNVyyGB6NADzych0PQUFsQJNevMNPh2rfSvOz GYV9OMUwQydvSM1FVEYqG5bflyTcUOLjMYOAEM7TTa YtU5WdvP05WQDUAj6+VWcsdlCwFgrEMvJfIYYyp3IzJDj8VR4XCUGvRsmsa1ReVeAiCMAREWoaRO2BAA A4WBUaASKgJp3RZTNvY328daDpQZ2HFv0BQtJlXW5pzm6QNxTmBPDgGptVKxy0NOtzDD7TyADlDQxQjg 8pbaXyyyEQu3KftrLnsVRXiKPgnLHuZ1Y8rBqyQOBc FNOdZb5xDL2dFYPkASDgDbT0FHSYVF1DGKSsXOUneRQhVMYwCDRNXC7FHVdlHDZ2PkvaazAewICcOMip AL0KOQDwoiFoYpSgKKPOVJd+Ut2OWM4ju3PwGRvqGIEyWQ3xor3XXOdDFcXwF1Q4vKIaZ0L7ITcePw2B IQLjFAWjPfAiEZAWTEfdLQ5DUA2egqG3CX9PzGReZU XgTVBvdXDiZOi5M13svPGtOLoqPW4JHRM+Yadira+Fd2FSEAsKVVwOKRoHnPbZKJLKtYrP5EfU5CDg3SbA9 QxUQ42cZcpzpWjEDbgPH3GAV7vGKNvRVARJJ0CkRGajT1bzpPvVsGtSTHWHrEnD96soSOgVNZfZSZeQV GvAr5NOPPyF3WxawOhyNybvySoPUOeHEZTRF5RGShi ucHgiFJctAntHE06pKrxLV2PIx6TXxSsIJ2tzi3RtBCfNw7GGOHqIK8YMNBbJBGkITOnCFN8YRAyEzIf VJhrCYBkPPLaVLK8TYOoIKYrQH4ZPmTeIXLpYLc0QBouDREnBZYwim4GOHWnEKQpMIR3LGHiTSXkWWFn FQcsFJRrMLCvWNZ0OUChOALiOK8FMlVtYYVdOOL2Uw xbRWLsVDBaqv7OBTRfGNMhEWG7URSzRAZvYSWuOAwuNJAkTWDaUdN0YJKuIYUrMQ7ROmCcYRLbFPA6Eo VvWBNdYTXjky9OABYbOITrUqHmBBXnHKAnOVZpZJiyDWAvZLWqKCr2ZKZkJGAyIE1TQhIgUMYcKEAtCl KdZUUrGHPafn0GYTGzVMTtYNB1HvXvLSEsEDJtBFdr UZPdKVX5IyCnKOTuEZVuIJ7XLnThMKDgBAckXDraTWYkVYOvpt3MMQEeWVOuAaBqRkZfKPNnIGKcEXvj OCRiPNJ7XDJ4XCHyDWKcVE3MUyTnHDYjLYq4DRKfBQAbWLAbzc7NFZPxPAPpMUP6HqUfKOFsHKJsIHnf JIOmFTO4PoJ0OEQzUPJdCR7HFdPxVIOuWUj4RaIcLL RbFDNnvx0NBELoOOPsGHT0ILFjHQVsIRQpDTrwBRKtCNLjGiu8CCFyWPQfQJ6LIsJuKXEdQcQ9RGJzST WtLFYmlk5YCKAnVVBqAJd1YaZwCRJgLMAnZOt0urOhhWNgVNb7MP3FN8HogoYaIgKYSi9Dw211FEP8IT LpYs1QF2peDo8fSWBsKCIFSs2PGVm5XZDxAEbdEhJ4 CZNlLLYxAMP2ITPxViQiEAvdOVD8YkV+QUz8C3MfLQH5DcM8LxE2HdU4RCoaOAAaUaXaKWUfPygdJS5c XSANCj4+CJmpyQUwoSjnZMZWVfKrHtHoCGalBLQNJc1T ID Date Data Source [id number] 07/13/2020 01:02:[address] [facility] Name Value Range Interpretation Code Description Data Evelin rce(s) Supporting Document(s) Progress Notes [facility] UXWIYd5bZeDTNxLx74/QFFctTONzw3FsBCeqSFo2OUqcAFDmZ3YyEMN4jD6oDVG4DImUDmEyUyViYaH7 lbm VeYjyEVgGrXZEcShaDZtRcPSnxCyshaNHyEC1FqTP4WTAaF39cJREzGNQiI8CpESH4GWH+Kd1TOARggL MvQP8SXyfR8P8Dp6j3ZrKoP1l/kMhRpeCEAGG4QxTUUfpC9BJJVfcmfssLOwuLHwW1vDplu3+Tu8N5sK eXh1PVLr7kG8tTJ0nuV2bUgUL849r4ynHESsX+7Taz LmeFQux8x0R/KTVhWn6t2CI3dlz7zPjPMuKD73/wvIgynQx+hA4YeodtGqdpRI1LHH6cF+nJZYkMVV7x aaevc/p6Cl4bpZStOVr5sBYHg8aqpml54TkPoyeKphKDGp+Estefania+UdmJVcebXtcvkgfa8Q7odx0dDh76m [file] 54Vuz/dPKdwFM/6eRxPl6P5fODF3hTUlp3xlOE4Jwg6bihbRDtEw+cU/wYeh80/D76KbfPoe29su+color mixer oRiZZ20KYNXDMHYexw6gKqgn3BU3ilp35FKLl+dspCf6vDDaTTEdi/PsTwFPSoriaVlJ+xXP/paVzBMa gLaRkoBFOabpFMfLNXsSiIRMNg8aUQrSlxcwrETKiT qGYMe3B0QQPi+Tw+BJ+3Ba6jk4RNO4WLYscJimNW1hHGxoTV4inJvRuAEvVO+/urSII/jdVcR9WxpAbq QigsRLdOtqDPAsid4d6NNHNip3ZDV7bxntQJfwtxHrs54WJLmRDmwTFnn+cWoEzY0s02g0xf4qk2hCux EsQ1DKO/ucJroPRw/zhujrGU51yLJCnjzrRaJ4mQH8 v2SGqwus7QyCIWmBmbadqPgbPiwQIVdBA2vQfYsfB8fPzrDizLtUDRZHdlBoHKqO4ZRgFYKLKvAMcOeZ lKG3cIKY4ARePcVK1CgHJPlpgSMBpXRWWwnk/vyNT3AIL+IBq44lZWh3NS9xJJsWebnMpGoipc3Wwak5 jcCt04AvUTom2A7Ax9Xji3xpejj7Q2D/EcY8aqCJP6 gyXCYX71d5f5CWb/YzcGXJkOuMwxQlUCCmrQQ7TdR5bqMAwCbJxIG6MWllBvGRbVgAAKdN6ogeyP6ILv kdbJ8iNr8tpPb6FDeEPmOKLAhKQw/bifmfc7XXPsuHrPqPIcp30q9G4bctjXbssV2Zy6SxuPCy4wR1ZG 8m+/oshK55xdBisO4z8+lkRzZBvnCzpssk9jxJJMgh +OC99Fy0woCl2R5zHS6FTbIK7tojy7ljHPyWr4Wq6I5A9lW/LNs33RjP9peAMw9FThXE/I1Hmb2EapJ6 V1DRDny+92h0wmpotBi5+z9vsLSTJLtfzmfpPzZXYUrGMQwniXbXi1+ETKaeZgbA1p/a8HFeGpGA0t66 7Wjw4on65hqNe88Rx4HgWC78tZ1E1r48T1+prER2gf [file] Hofizm3CiPEHai3BMmKVb4uX54RpF+S51BnppU1Z4lit3H+g8FfkJd4QHv91KPILAkUm72dr81K3+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 [file] ICAgICAgICAgICAgICAgICAgICAgICAgICAgICAgICAgICAgICAgICAgICAgICAgICANCiAgICAgICAg ICAgICAgICAgICAgICAgICAgICAgICAgICAgICAgIC AgICAgICAgICAgICAgICAgICAgICAgICAgICAgICAgICAgICAgICAgICAgICAgICAgICAgICAgICAgIC ANCiAgICAgICAgICAgICAgICAgICAgICAgICAgICAgICAgICAgICAgICAgICAgICAgICAgICAgICAgIC AgICAgICAgICAgICAgICAgICAgICAgICAgICAgICAg ICAgICAgICAgICANCiAgICAgICAgICAgICAgICAgICAgICAgICAgICAgICAgICAgICAgICAgICAgICAg ICAgICAgICAgICAgICAgICAgICAgICAgICAgICAgICAgICAgICAgICAgICAgICAgICAgICANCiAgICAg ICAgICAgICAgICAgICAgICAgICAgICAgICAgICAgIC AgICAgICAgICAgICAgICAgICAgICAgICAgICAgICAgICAgICAgICAgICAgICAgICAgICAgICAgICAgIC AgICANCiAgICAgICAgICAgICAgICAgICAgICAgICAgICAgICAgICAgICAgICAgICAgICAgICAgICAgIC AgICAgICAgICAgICAgICAgICAgICAgICAgICAgICAg ICAgICAgICAgICAgICANCiAgICAgICAgICAgICAgICAgICAgICAgICAgICAgICAgICAgICAgICAgICAg ICAgICAgICAgICAgICAgICAgICAgICAgICAgICAgICAgICAgICAgICAgICAgICAgICAgICAgICANCiAg ICAgICAgICAgICAgICAgICAgICAgICAgICAgICAgIC AgICAgICAgICAgICAgICAgICAgICAgICAgICAgICAgICAgICAgICAgICAgICAgICAgICAgICAgICAgIC AgICAgICANCiAgICAgICAgICAgICAgICAgICAgICAgICAgICAgICAgICAgICAgICAgICAgICAgICAgIC AgICAgICAgICAgICAgICAgICAgICAgICAgICAgICAg ICAgICAgICAgICAgICAgICANCiAgICAgICAgICAgICAgICAgICAgICAgICAgICAgICAgICAgICAgICAg ICAgICAgICAgICAgICAgICAgICAgICAgICAgICAgICAgICAgICAgICAgICAgICAgICAgICAgICAgICAN Cjw/nZOhS3pamBXuftZ4E2rjVp0LZy8FVM3sq7QeGP EmOPoxzmQnRbjWMrUsKDUfCohDLop3AEzyWF4LsNIoT3YfO3RlHAqjVN0ZBKZaASCcfOUbUTGyQYQfRo P4ZUNzOCpxTC4JwFGmFUewJDMkJMHiPnLcDYXiSXEdWGWoCK7TLRXcX291ksTtCl1THg0TGtZmEP4fvu 7GLlLdKTBzCthRLpz5MBjtAX9InKPbkPBgClElQHXG PlAdV7hsr3YwVqeeWWLNAFwvKN6Sl9QlgCUeLSt+Is3MKT7yp7SnXBlwZkNeNH6uek8LIMoVFgQzO5Qz nBfaRWTge0zdITXmZW4uqEKbWUY3BJizzECaHSpbC7D7VBzvZ8MxSGUgVl4gAG2kCVZhGQXmQfA0DYUV RZ2HPDQmAUWmeZCvPBJcIXLTFT5VOGewITR3Vrszsk KgkHYbDImyEL9WOZAqejIbGxDgHFBDLWv+Bw4HQG1gs2RfKCyaPOHkBC3rbl8TUNsTAlShC0J9mWPkB6 S7ZWgjGi0HAXZyMWTsTvDjZBJWCXegNY8WHK8drcR5QJ8RxRVpEEIrAXMrfJVwYDm5N11zzXSnMBpnPX 0KICA+Yadira+Pf4LPGFtMBIbWWJjRaJjTSWVMrYkH9Gu F9GGu2DiS5DpVX41wYxdziWzVMtcGA5CIK3rGBDlFFSSWE5FkDLkwJ8owrZvRrJxJFHXNmElD26gaPWg CEMpWWM2DVGmWr0RZQCaU9UkffPacCabjsCpQMGfZGORCZ3XCMfthpNagQPtuGodGO80lOivFM6CQy4W ZuKgSO3jyh4SgTOjEu6FHQAyTQ1MEPGiXOZnQIOhDT E5GTMxIlFuAFviALIwORBpTGJ5ITUvESDcDC4MPsXrFHIvZrVaHENnIAWbQFOegh7FIDVwULWrWrlrEj JxBQYkLJAyZBynXRJmAURvMUW6NASqIJRoUE0CSmRySVXtFTCtOSLnYSQpCWDiqm0HWUEpLNVtJyR5Tz FuIIMeNKMrTLyjOQUyUNA9ZGm2RRRvMDOnLY9GMnUf SPVeYVGmZCXgCTGfDXJoxt7YCQReZTOyMaKqMtFzCKNkBQYtNCsaCLMiJFQ9JWShWBSgXHJsFH3JDoHv OVWpGYh0UiVlTROePXZlkj0NLZWpTYAfXOn7WsTxAEVwHMFrWNpcZTBmZCC5CSMcPHBuLWLyZX2KZlFy WWOyLTTqAuNhNKXkPGFezd2YZVYaBUVgQOHjToOjGW BoJZHzAWgsHJKlJUAsREFeOOLzOXGpIE0FRhWrJBYhBhZ1OGhkIONgXIBqev7DXBIpQAVvGkZ1GNLiRO QpQEQmGHohLCOlXQDvEla5TJVwCZFgIR3NQrWdKSZyIeP6RLQsLSNvKOHsdj9NTTHyOMTzHtj5PKYnKH IrQJWfOPhwXIPiKYV0KnE7OZErXKUnNC3OHtGkAYVz XyV1RJWhKOHlWHQhst3GQTJcFFZdVJK1ZVAsSNHkUUQnCRdlYQQgZWV9SUs6UYIwUMYkSN3WRgCrYKBe CzG6HzvmXYFiKIZjrt3TUGVwVSNkEjYtZLOlYWDsHTLqDMgrCQErSJO9LBM3JWGmIKTtJJ2LQqGkYOtd UPKLKsj7WTsdF9c3NVRlRF0MO0Sdt9EzTvnwXSZEYI aiVY0xyvHuYDLtDm5ST1wBRlauLBrxAHj4AgPpCIJvNZZmYfdcLWy9GNCtCDO2FkviXL1yMVI8NwDuRA s2WLUiAHTcXPLtU0BwQBleCXL2KVhfQYZrVcImXV6ZMv6KGmC1NXM3wWJyZn8QKyjfLFiTEtLwGX2FVJ o= ID Date Data Source [id number] 07/13/2020 12:16:[address] [facility] Name Value Range Interpretation Code Description Data Evelin rce(s) Supporting Document(s) Procedures [facility] UJQTBm5fRaDDRiMs37/FHCkeLICen9GkKGejEQw0BVzwMBTbK2UpWDR7oJ3yBEK7GOqQHhBpWvJoOoX8 lbm [file] AwMDAxMDkwNyAwMDAwMCBuDQowMDAwMDExMDkyIDAw GXYfPD3IUrNsTPCrMBH0APYnVWTuTENile6BYKUlXEYjShd6DNUpRPVvVPQlXMdzUMQmEQSmRPD2XTBy ZMDxSL2MCySwNZGrHLGgMKixUQSnCEUokx1TyWXdtYhagq0AALhWUd4ZlGjyDLS6DHpyXn8vwEJzUnMs QTOXGc0YdkJgBSPlWTVWYZrpJTVuBRfgUcVyXkDeAp JlCEjdCSV3HmFjEcF9PRYiQMXkUrOcEyU6EMGqWsPxFXZrGiZ8EBYzXRXmHFPjUik7UGAgG0B0ETJ+IF 0gDQo+Ke5Uc1FdllA8vaExFDfsAjR5Aj5UFPSLP2TRXq== ID Date Data Source [id number] 07/13/2020 12:03:[address] [facility] Name Value Range Interpretation Code Description Data Evelin rce(s) Supporting Document(s) Glucose, Fingerstick 234 mg/dl 70-[address] [facility] The above 1 analytes were performed by [facility] [id number] [place] [id number] [address] ID Date Data Source [id number] 07/13/2020 11:43:[address] [facility] Name Value Range Interpretation Code Description Data Evelin rce(s) Supporting Document(s) Progress Notes [facility] FXRGNe8eAuUMStLz61/SKEjkTIWhn2OgELbjHXw4XMdiXGHrD4WkVGP5dW6kFUA5JFdXUiMuAnSpJcV0 lbm [file] 5TLmC7DFE0pYPuKa3QBUd8USsVTjSnPT3LUUu= ID Date Data Source [id number] 07/13/2020 10:37:[address] [facility] Name Value Range Interpretation Code Description Data Evelin rce(s) Supporting Document(s) Progress Notes [facility] JIBAVt5nBgOXQcNt94/CKLojJJMzm3UjSMgfHGb6DPrfDLVmZ5KqNSO4mO8kIQO3LVeNQjOqCbHcXmQ6 lbm [file] j2YdzjF3raZrDCvfAbu1QW8VODRBI9RBRa== ID Date Data Source [id number] 07/13/2020 09:27:[address] [facility] Name Value Range Interpretation Code Description Data Evelin rce(s) Supporting Document(s) Progress Notes [facility] TOLLSa1zPyDGQmCo14/ZMXimSFCpj6DfHMzxOKn4ORmgUDDmM5PxBRB1sJ0tGGB6XYjZAlLwUmKnJzD1 lbm [file] AgICAgICAgICAgICAgICAgICAgICAgICAgICAgICAg ICAgICAgICAgICAgICAgICANCiAgICAgICAgICAgICAgICAgICAgICAgICAgICAgICAgICAgICAgICAg ICAgICAgICAgICAgICAgICAgICAgICAgICAgICAgICAgICAgICAgICAgICAgICAgICAgICAgICAgICAN CiAgICAgICAgICAgICAgICAgICAgICAgICAgICAgIC AgICAgICAgICAgICAgICAgICAgICAgICAgICAgICAgICAgICAgICAgICAgICAgICAgICAgICAgICAgIC AgICAgICAgICANCiAgICAgICAgICAgICAgICAgICAgICAgICAgICAgICAgICAgICAgICAgICAgICAgIC AgICAgICAgICAgICAgICAgICAgICAgICAgICAgICAg ICAgICAgICAgICAgICAgICAgICANCiAgICAgICAgICAgICAgICAgICAgICAgICAgICAgICAgICAgICAg ICAgICAgICAgICAgICAgICAgICAgICAgICAgICAgICAgICAgICAgICAgICAgICAgICAgICAgICAgICAg ICANCiAgICAgICAgICAgICAgICAgICAgICAgICAgIC AgICAgICAgICAgICAgICAgICAgICAgICAgICAgICAgICAgICAgICAgICAgICAgICAgICAgICAgICAgIC AgICAgICAgICAgICANCiAgICAgICAgICAgICAgICAgICAgICAgICAgICAgICAgICAgICAgICAgICAgIC AgICAgICAgICAgICAgICAgICAgICAgICAgICAgICAg ICAgICAgICAgICAgICAgICAgICAgICANCiAgICAgICAgICAgICAgICAgICAgICAgICAgICAgICAgICAg ICAgICAgICAgICAgICAgICAgICAgICAgICAgICAgICAgICAgICAgICAgICAgICAgICAgICAgICAgICAg ICAgICANCiAgICAgICAgICAgICAgICAgICAgICAgIC AgICAgICAgICAgICAgICAgICAgICAgICAgICAgICAgICAgICAgICAgICAgICAgICAgICAgICAgICAgIC AgICAgICAgICAgICAgICANCiAgICAgICAgICAgICAgICAgICAgICAgICAgICAgICAgICAgICAgICAgIC AgICAgICAgICAgICAgICAgICAgICAgICAgICAgICAg ICAgICAgICAgICAgICAgICAgICAgICAgICANCjw/lXBmG1jyjXDmrtO3O0tjMd4ZNw4MQS1ks7TiNERe SZyfhmPkLriPVaNuGYZkLlsNRvx3NTrxIA2KkUGoH2AyH1VtEThtOP7OYSJvMFTffOUrKTNqPUAlJnX9 JVUcGCpgSZ7AmAFiKOghTOJtGSOfFD2UGGHuD145sr DbJB8JRm0YVpNxGY0vez2YSrMiLBVjJcjAVlw2RUznNW5QcMLtkCQtEhRyGPAZMqTsW9ijn0WsVbSzKT EBFGrtZC9Qu9OfiBXyXTw+Gi1ILE5lx3WgLFhfWcLuKP9hrc8QTThVImRoP9SgrMosDPKvj4djCULvAN 0opLJjOUN5MWotg55iJBXdcLWjkHjgDZGfXq8iNE0o VEJhPBG2TtM1PSHOAT9BCRJmEWOzrPPsGCPuVHFDGF4DBJjoWKV1YomjprVulQTbIIniLG7QNOQtsaZb MjUgMCBSDQo+Ke8ZSC0sh4WhMRqkQxHdAT1uxj8PUAmSGyKbW3M2iFXrC6K1SNlyQm0QQALiODMoEaQl SVQMOQnbHC4VZC6syeY2IA1EbJAjJNDpQSSnkIWmSH g7I89gpIDxVIrdUR4PSMB+Yadira+Ra7QVKEhUOQlVEEjJaEkMUEBVtAlB7SyJ2QMp4HoO7YiZO16rXvpov OfHDwxIT1VTS0lEZBjMKHEQF6YgAGjrQ5lvdFrDPIsUYQDPtFcT18pgTPqAFHtJGO2VBOnDd2VFGHyK7 PphaXloLwfhmMcZOWfNMQFNH5HVOablzDmtACytWkh AP47uTabDJ9UAw2KBfLjWQ3fph7LlRLhCs3TPKIzVN5LAIBbLMViPDJyWGS4VNIaCmXuFNoqJMQbGNEz LVS4WZBaTWMpYF7KRqMeRJLzXcP2AZRvCCObSZEfsv2ZBYToGWKgMtB6ZcSkUHHeHNVvGUwnUYNtRLVp SAQ1KUVpTMGpGB2AYmPbVXUnNWV8OaNuPVKhBCUcch 9OEQGcOACpJtH9OsZsZYZzCHApIKreMHBvKAZfUJW8FONsDMCgUY6NHeCsBUOxBJRyXyFxDIKaUDKlil 8UDNOjIZFwClSrNMWjHBGqILKnAJarKWHwMRQ9DHM0UNVhAWWtEY8RKiMwYPZtEUQ5WvNeWQTbRWMiae 6OHGWdZRPnWWc2IQXtPJWpEGGbXWjzSDVcKPC4XWq7 GVTnHPCpXW9TJhPxVYAbBIc8LQCxXJFzQTMnba8DJSJoTBRrAxtfTzPeWLKxIWFiKHkyKTKlGDX0WHYi LTOuAOFjSL7WPwAnDESxWEtqEEagIIAfRHLkuz6COYTzKMXdHJW6AMDbXCEnZIEhXOovMUDzZFE9FcPj QHGiEOPoDN1EEqNfXVKiZGc7ReYwPYOsDHCwez4UGN KoEDFjPNX5YrIgOZMgCDGmXAneMZTmQZHdMZB7ABKuODQeUZ9DZdDpBDDzXyA8BwEiWRXgCDSkwx4MHK NbODQlRGY4MeUzEQMuPVFqUUuaFGMyRKCnFAmuZXJiHCSkJX4AQdWhYHMhTvV3VvMfNRBpPKHgdx8CGA DbMUUwQopwCHHzXLPqTMGtKNg1qlIigYXeVJf5JD4H A4QuvuCdUsdOUf0Jz229GOL5UZIvSq8CG5jhDx3uIILnVXSACf0PWPr8PlF9VuxpPVP9ZGkrV3WyKERc QDjbZlQ1IYToOfytWyS+OKchKBQdWwW6XajcNYKvEbH6RGM6VGEmJUOfGIGfHPT4ZF3bTPMRVi5+DQpz nKEieOmlAEIGBhDzETJ6YMxuTTXUSu7K ID Date Data Source [id number] 07/13/2020 08:57:[address] [facility] Name Value Range Interpretation Code Description Data Evelin rce(s) Supporting Document(s) Glucose, Fingerstick 190 mg/dl 70-[address] [facility] The above 1 analytes were performed by [facility] [id number] [place] [address],[facility] [id number],[place] [address] ID Date Data Source [id number] 07/13/2020 06:45:[address] [facility] Name Value Range Interpretation Code Description Data Evelin rce(s) Supporting Document(s) Blood Urea Nitrogen 10 mg/dl 7-18 Normal (applies to non-nume kamilah results) [facility] Creatinine 0.86 mg/dl 0.67-1.17 Normal (applies to non-numeric resul ts) [facility] N-Acetylcysteine (NAC) and Metamizole bradley ve the potential to falselydepress Creatinine results. Baseline values before medication adminstration are recommended. Patients undergoing treatment with phenindione will have falselydepressed results. Patients on phenindione therapy should be tested with an alternativeCREA method.Toxic levels of acetaminophen may lead to falsely depressed results forpatient samples. Glomerular Filtration Rate >90.00 mL/min/1.73m2 [facility] GFR Reference Ranges:Normal Function or Mild [...] of Health and the National [employer]ney[employer]. The Gordon method used in calculating this result is traceable to IDMS standards. Glucose 199 mg/dl 70-110 Above high normal [facility] Sulfasalazine has the potential to false ly depress Glucose results. Sulfapyridine has the potential to falsely elevate Glucose results. Baseline values before medication administration are recommended. Calcium 9.2 mg/dl 8.5-10.1 Normal (applies to non-numeric resul ts) [facility] Sodium 137 mEq/L 136-145 Normal (applies to non-numeric resul ts) [facility] Potassium 3.9 mEq/L 3.5-5.1 Normal (applies to non-numeric resul ts) [facility] Chloride 104.0 mEq/L 98.0-107.0 Normal (applies to non-numeric resu lts) [facility] Carbon Dioxide 27.6 mMol/L 21.0-32.0 Normal (applies to non-numeric results) [facility] Anion Gap 9.3 7.0-15.0 Normal (applies to non-numeric resul ts) [facility] The above 10 analytes were performed by [facility] [address],[id number],[place] [id number] ID Date Data Source [id number] 07/13/2020 06:39:[address] [facility] Name Value Range Interpretation Code Description Data Evelin rce(s) Supporting Document(s) WBC 5.44 x1000/ul 4.80-10.00 Normal (applies to non-numeric re sults) [facility] RBC 4.05 x1Mil/ul 4.70-6.10 Below low normal [facility] Hemoglobin 11.9 g/dl 14.0-18.0 Below low normal [facility] Hematocrit 35.8 % 42.0-52.0 Below low normal [facility] MCV 88.4 fL 80.0-94.0 Normal (applies to non-numeric resul ts) [facility] MCH 29.4 pg 27.0-31.0 Normal (applies to non-numeric resul ts) [facility] MCHC 33.2 g/dl 32.2-37.0 Normal (applies to non-numeric resul ts) [facility] RDW 14.9 % 11.5-14.5 Above high normal [facility] Platelet Count 172 x1000/ul 130-400 Normal (applies to non-numeric results) [facility] MPV 9.7 fL 9.4-12.4 Normal (applies to non-numeric resul ts) [facility] Neutrophils 67.3 % 40.0-74.0 Normal (applies to non-numeric resu lts) [facility] Lymphocytes 22.1 % 19.0-48.0 Normal (applies to non-numeric resu lts) [facility] Monocytes 7.0 % 3.4-9.0 Normal (applies to non-numeric resul ts) [facility] Eosinophils 2.8 % 0.0-7.0 Normal (applies to non-numeric resu lts) [facility] Basophils 0.4 % 0.0-2.0 Normal (applies to non-numeric resul ts) [facility] Immature Granulocytes 0.4 % 0.0-0.5 Normal (applies to non-nu meric results) [facility] Nucleated RBCs 0.00 % 0.00-0.20 Normal (applies to non-numeric r esults) [facility] Abs. Neutrophils 3.67 x1000/ul 1.92-8.31 Normal (applies to non-numeric results) [facility] Abs. Lymphocyte 1.20 x1000/ul 1.20-3.70 Normal (applies to non-n umeric results) [facility] Abs. Monocytes 0.38 x1000/ul 0.14-0.97 Normal (applies to non-nu meric results) [facility] Abs. Eosinophils 0.15 x1000/ul 0.00-0.76 Normal (applie s to non-numeric results) [facility] Abs. Basophils 0.02 x1000/ul 0.00-0.22 Normal (applies to non-n umeric results) [facility] Abs. Immature Gran. 0.02 x1000/ul 0.00-0.02 Normal (appl ies to non-numeric results) [facility] Abs. Nucleated RBCs 0.00 x1000/ul 0.00-0.02 Normal (appl ies to non-numeric results) [facility] The above 24 analytes were performed by [facility] [id number] [place] [address],[facility]#: [id number],[place] [address] ID Date Data Source [id number] 07/12/2020 10:11:[address] [facility] Name Value Range Interpretation Code Description Data Evelin rce(s) Supporting Document(s) Consults [facility] CFNOEg6nDgMPRoMc31/NYYugRHIdb2MpDIqeOAi1FQdkEGSpW8VtLLL1fX6zRTS5VReCWxAqDdGcHqD0 lbm ZjBdlFLkKgGKZfWskCLiOmEQetEjbugDVyZK3YpDU5LIPhV79oMXBzNOZdF5GzRUA1Rhs+Qu0RESIfkV JyKF6GPysM7I2QnkhBWM4XIo6KRDvhf1a6RPIcxdUHNiaQMjdeQfFgJOQqaPLJNAVY8E+wJJnFIC5Grj zeHfCwaT+Rdjh20nJE00I1HQos//wEVZJuIYUz9z/V r5sOcNHd7+c/tX78FUxwukmNSfyAidEY4dsI5r938V4cmBvuQXI/3twbgXYnZU7OV9PANHDCwj82TM9S 1g6RO2XgUO0utz0Rbqisi05RluHXFKot0APBTWP/BLERJZcN8pZmS8+neelima/+VCMokiuacoZ7UZi6vqete xuVt6zwHafheXzlYklV7fiLND42dttrFahkvVduh+1 ziO5Lj/wkjY4pXhnVxwIAkmEcczhZJmNSkpIMfiJ1FxFaa8urHCyZ/b+uuzeIATWVfGFYuq+zsws6Qdc tGfotHNefnzK36QiVdFxGxD8SdWifdSZV+oDTwFmkepMaJqy6ZJygfdccQL+James/Yl1rTF0BkoGeBGheU [file] AgICAgICAgICAgICAgICAgICAgICAgICAgICAgICAg XKOnYYUnEBQwBADyYCSmDHWdVCRtWHKiFQZrNAXeNQQaVF3DDMFhPKCtTTWnNYUbOYZkGHZiISEoDZYa ICAgICAgICAgICAgICAgICAgICAgICAgICAgICAgICAgICAgICAgICAgICAgICAgICAgICAgICAgICAg AOLjPVHcBNMoPOAtCASeYS0IUOUkJOUmFSYdLSIkNV AgICAgICAgICAgICAgICAgICAgICAgICAgICAgICAgICAgICAgICAgICAgICAgICAgICAgICAgICAgIC UsFFRhBGJaBVQtQYJsNCDpPVMgLNHaHSVuJI7OKFXxSKVcMIIyPJBjWKQcYSQeMNVgCXTxQCJfRWGoTK AgICAgICAgICAgICAgICAgICAgICAgICAgICAgICAg YPCnCBSeERQeTZNlCMKmSYRlBMEeHDZhIYWcGBPcZTHnAOUaFR1ZGFFySEDbJIRsIHRmPQRmCNWgVNCj ICAgICAgICAgICAgICAgICAgICAgICAgICAgICAgICAgICAgICAgICAgICAgICAgICAgICAgICAgICAg YDGkWDOeYROkMJPoZGWfDCXzUA4DMYGsMFHvEPGkMC AgICAgICAgICAgICAgICAgICAgICAgICAgICAgICAgICAgICAgICAgICAgICAgICAgICAgICAgICAgIC BuUBDvTGRhWGCdYCBtWSXrBTEhKWHeBZWqPJAwAG9AXNJuUICtJWOvMATuBSDfDXZjISHiFWShIEVtLO AgICAgICAgICAgICAgICAgICAgICAgICAgICAgICAg TTSbJABbOWGpKGLwYUMhMHPxAXNwYCVzRXFaCEGvMTKzUVCbHSWoBU2UHFWdTRXjCIGhCILaAZZcYXHe ICAgICAgICAgICAgICAgICAgICAgICAgICAgICAgICAgICAgICAgICAgICAgICAgICAgICAgICAgICAg DYDbKPLwTHNrXEXaIDAzBUMzTMPdEL3HUGPkHTTcQE AgICAgICAgICAgICAgICAgICAgICAgICAgICAgICAgICAgICAgICAgICAgICAgICAgICAgICAgICAgIC RcVXNxTKDiWFYkMVElQJSiJXCeDVRxXQGbDREsJVMwEW8YMPSwXBUrQCPdEMNnHDKpYHVsSEOgPFHfBN AgICAgICAgICAgICAgICAgICAgICAgICAgICAgICAg OVEzIZZvOZCrNWTbNWKrCRCuKXHdDMIzOWFkHDJaMGKoFHNnKWTmINRlTH0NEI59aVTye5K9OCQmRJ4m dyc/Ty5NKProreBvfZPgHY5CPoJwQH4lve8DUjIfWI2kva9SXTqKCcHiK8X3dGLlRXVpAUXIEqTeS66k YDzpYn74XOhgSACmHeFwKZq8Rn5EGpEvB1vuMTHuJv Q1EAHqGzS6TBWsNbD8TUJiEnJfBAVaUTPoOBMaKWOGIJ0MWyRtI1OrdL50VFVFOy5+DQplbmRvYmoNCj A4QLTra6QgNTd6HS6MCWIzXzgva2KvJBKoBJMPTKwsHU7JTGG6JKMvKWQfWd5VPICpZ865wpDdUX1YIg 0OVdGsPR3tih5UMGUxXCNhOvgRTqc9KWhwPC7NzNZa AOcMj67axTj6ieOvoYWLFYZcpWMbcLMRJO4hp9ZssgH0WUafSPGwHBFzRy4cWk5rZWPiENGiOrJ2SFMZ YT0KYPSmZLQnyCFkJGTuNVJFPM7EUWxcAUO5QttvdvGqdMXaUNnuUP3ZFHPpyrIgPompSFNQFZr+Pg0K HI1xo0RoZUq1SURzAH8nyg4LIZgGRnKcJ3Y7qCIhA1 D0XNcaHd4YNMNqQJExDcicZWFRTBapDQ5NWT4oesL4CL8BkUQxQAWqXSRjlFGkLCl6X88aqCPiIBgxDY 0KICA+Yadira+Vc2YRYCpRSOuENKeLdEqLCDMArMwY9OoM5EFy8AcL0NhVB12pIzvmeVfPAgtJC8XFT0qRG MeZWMZTG8PfPEssO8wyzHcESRxUSCIZhQiP18ojLSl JAHcSBO9KNFbPc8DNABkB2RfdhWwuOsgdnNyWRBlAYYITJ5YUTmgpeYuyHOfdFetWH10iWmoFA6TPc9A LnTnUF1abz6LiDLpHq3DZFI4Nc7DOKPyEXXbLZXqBUM3KYPdItKiEFgsXGUoRLYbXNR1EZQoCARkBK2C DiMlXOUqSGB5ZsZnXMWvWWCjty6WLWRhENL3JgTrDa DeZZPoVOPyBBiaBVTzMZMvORI0PYTuWSEoMD6GBvDhHITfNUXhVONgJJZjTZIdyz4JNOHvLGQxALUdHD IoLXYgRXVmCDvvWZYnCVG3JZY2PDDlRXKzIG2HFiBcFMGvDQu1RHKySAPlNFQeys5TCSSyWFTvEDY1HH DfPIKeWOTcTEhnZXJzFXTfNlc5HQFtOKZjHU2VDxYs FMBxMSY6YvsxLCWnJUQchp8CRKCbCRTxRCl2HRTtPBTaYGMwVStoLCJlUOT9GqB8REEdEWDjCB7SJhFo FXVdAIY7BTNcKCFxJWUcdn1CWABuLOPpAwr4YmAmKWGmIMZuJSxpOQIqFSO1XOm4HCDbSEQfRU5OOnFw GBRqXFhqNpHrVQYcNYGrdf1TSEVbJRVdXTPpOdNbEB FaIIXkRUsfPQTvRBQ9ERHcHANgQNCeEA4ANsPsYJHmKPm4TTXuOSWyCDRshs3DAXVdXSEvXXL4HxEeZI ZyZPKjBHvxIHYfKMKsYzi5JDXeXHHlHT8XCtAwUPGmNfK0RyByUVWbMFXeip7RDHQiQYYtHVlyOiFvIX ZuAQSfCSrtFARyBHCxALH6RJYbZTWpUB0XUdMcEKUp OtObWbrgFKVwFCVnux9DEBUyWIFjRxN4BdCbFELyQSGdETrkAJUgBSQvVDs7NLPsVDNtVE6UZaXuSNNi HgV7CaRwOBTdICPbei2MTMYkAZR7VmO6AWStWUXoFGWdBSykTCGpVIE6EXS9ASRaALPeNU7MHwJmYHIu DKwtFFXvPSBnJCOoyu9FMUWtRDX5CVipDtEsNYRkYX DyJXqjVWQgAJG3ERa5YLDtVYSlGO1NTmQvYZWkOXGzSrPoQVHzCKMiwo3EOCLmSKQ8WJKpYJVnKYCtAD ScVTlnHCXpFZEfPca3DDRwFKGbNK2OOmXlMTLnDRJ2UtCjQIBhXGVujk5KEWLqVTI4OpDdXtVgMJWuDO ChYMmeOQKfBYSlWqo8JVCjRHDmTI3RTwKoSGYnCDE0 MByfNNOcSHLlcy7UkMRtyNpyfa2VFEwFJw5NpAweOGKqYPnwWv2lfKI2JJBkGQQXCf0PoqMgLKSlGDAR VCmtSNVrOUsuQPA7TvbrOTZgZHFtFQN6Mgb5ZzFiYOuwSABvRCI8EqM1KFNlNRNvD5H2NnN6HNW8GYs6 ScLqDHJnVMU4TLSoLXa+TA6wNIh+Ii2Aq2AshvQ9saGbXOk6Rws2CU5AZZJSK4CEFz== ID Date Data Source [id number] 07/12/2020 09:36:00 PM [facility] Name Value Range Interpretation Code Description Data Evelin rce(s) Supporting Document(s) Glucose, Fingerstick 176 mg/dl 70-[address] [facility] The above 1 analytes were performed by [facility] [id number] [place] [address], ,[place] [address] ID Date Data Source [id number] 07/12/2020 08:49:36 PM [facility] TTE Report:Indication: syncope, reported hx of HCMStudy [...] rce(s) Supporting Document(s) ID Date Data Source [id number] 07/12/2020 05:38:[address] [facility] Name Value Range Interpretation Code Description Data Evelin rce(s) Supporting Document(s) Medical Student [facility] LQZNPz3cMtCLXxRq73/GNMbhYUMwv2WhORarLQl7QKjdDXOzH5CfLDT4gB4cTOW0KMnKNaVgVqCaDtC1 lbm [file] ICAgICAgICAgICAgICAgICAgICAgICAgICAgICAgICAgICAgICAgICAgICAgICAgICAgICAgICAgICAg ICAgICAgICAgICANCiAgICAgICAgICAgICAgICAgIC AgICAgICAgICAgICAgICAgICAgICAgICAgICAgICAgICAgICAgICAgICAgICAgICAgICAgICAgICAgIC AgICAgICAgICAgICAgICAgICAgICANCiAgICAgICAgICAgICAgICAgICAgICAgICAgICAgICAgICAgIC AgICAgICAgICAgICAgICAgICAgICAgICAgICAgICAg ICAgICAgICAgICAgICAgICAgICAgICAgICAgICAgICANCiAgICAgICAgICAgICAgICAgICAgICAgICAg ICAgICAgICAgICAgICAgICAgICAgICAgICAgICAgICAgICAgICAgICAgICAgICAgICAgICAgICAgICAg ICAgICAgICAgICAgICANCiAgICAgICAgICAgICAgIC AgICAgICAgICAgICAgICAgICAgICAgICAgICAgICAgICAgICAgICAgICAgICAgICAgICAgICAgICAgIC AgICAgICAgICAgICAgICAgICAgICAgICANCiAgICAgICAgICAgICAgICAgICAgICAgICAgICAgICAgIC AgICAgICAgICAgICAgICAgICAgICAgICAgICAgICAg ICAgICAgICAgICAgICAgICAgICAgICAgICAgICAgICAgICANCiAgICAgICAgICAgICAgICAgICAgICAg ICAgICAgICAgICAgICAgICAgICAgICAgICAgICAgICAgICAgICAgICAgICAgICAgICAgICAgICAgICAg ICAgICAgICAgICAgICAgICANCiAgICAgICAgICAgIC AgICAgICAgICAgICAgICAgICAgICAgICAgICAgICAgICAgICAgICAgICAgICAgICAgICAgICAgICAgIC AgICAgICAgICAgICAgICAgICAgICAgICAgICANCiAgICAgICAgICAgICAgICAgICAgICAgICAgICAgIC AgICAgICAgICAgICAgICAgICAgICAgICAgICAgICAg ICAgICAgICAgICAgICAgICAgICAgICAgICAgICAgICAgICAgICANCiAgICAgICAgICAgICAgICAgICAg ICAgICAgICAgICAgICAgICAgICAgICAgICAgICAgICAgICAgICAgICAgICAgICAgICAgICAgICAgICAg ICAgICAgICAgICAgICAgICAgICANCjw/gBPoK9ivtA LwqkK8R0afHh7UWb8WYE3sh9JzFZGwHFethkLuBdtGCtGkLNTqDzjRLqk2XFbsQA3FrPRwU2XgJ3ZgGX rvCP4FFHVmMPQbcOUrJUFeCXQjUmD4LUZjISlaAS7AhCNqFCsdUXCwRMKvSxZsQDUtWQOpGODuNIUlVG OSEVCwHIZxZvTtSTcfPX7Dk0MgqEM5QQi+Hf8UOA8f v9NfYGgxXEBhTF0rob5XERsAYeVxZ5XittB5INQvNMMgUq0NSDEnCCCeaJZ5ECOcYRIIBpGaK4CpgH82 IDENCj4+LPgsjqTxSefVUiLaQRJwv3VnHFk3EF3IKPTpVBu4pCRyAPUopQGlzUUNzCInAY59FQO1UZC3 dhOmvHYKTMxulm3pmKczaxYexIPsHkD2MlYwAnBzWL R0LbYpUU7rAGxyPG3RGEF4IGlnHGJcZOFkW8rWZkJuWZtnCBOllUisUB6OEwJyW6UbxmFmiAVeXLTdAX INCj4+WFogqhDgTaoNIvCrCIOgs5VqUDv3EZ7IHOOvKMabPX0PHFFmdL9bJVduDO6JBxQxQtYcCZLNWj GrC16lsFPwUYm2F1PmSaJaXDAxYxfyUIKdJBfvQjPe ZXMgWyBdDQogID4+ID4+RPqsLQ1WHQzgufGvVJEpQk4MLRRpHVYpNK0yFGRrSZIjW8J8vWvlAFRAYqPk C8pfwqojVG9dAYYsE781jIyzgyGkJSG6CWFqIq7PFYLbNXO0LWRttPEmCrtuMTDXBEoyLI1HqZCxEOH3 vU7xIZsmVNPzYXVjE0xIBdYrzOouII11sYtxhqXxiG BdDQo+Pb5ILR1ix4OgIRe6ccQuPBnlQASgSIfkJOEcRKLhOXPmUGF1UZW2CIYVDyAfEEZkZYArYQhpGN HcYXKoeb7SJOVdQUFuBTQvTyErEXMzHORdWSvuJTAlQLIpRFunTZUhVXPhXY3HMjIsUOOrUCLbECkdSU KkBPVnit1SOLHsRGFzUtD6FfCnQSFdVCAqHBtuVDVs ELMlDKHjOIJaICNaDL4XIfEuDMHmDRRmNtArLWEqFVTpwr1GDIElKXFeBjJ6MALqNCMpZUTfWYbwTVVj GSL0VCA1RFUaZPBaYC9JDwDtAONdXCnsKhHcSHKkSQSmel2GXTMrIOVjIiacFNDzMCWfJOAjVUyvUWAs MZNfSKYjHCYiGWVrAQ3FXgEaONGrAWRhTJQyDCIwDP Gqnh8LVPAoTBXxCNIeSPGkAUGxWLOdPNmyRINfLIE8WjI5EOMzKOBwYD5REaPtEHMtASI9KbPiYIOtBR Bbdj3TOYCkPBXjWfy5DMKcIJDjXQRdLJfxZSTjZBQ9QpV0UEIpLFSqYB7EPfGcKGMoSRc1WXToUTMyOZ Iejh7GTSCxIAYyXSM9HLJiJGTiMWKuXEfgPCOaKJU2 XNN1JWXyCDSfJH5GOuBbOAKkNXzhMEoxVAAtRBZnqe0EZLUzRIYiNAL1BkZaLYUjTCWfPNbdHSVfWZGi FOIqCORjQZEfTO7CZsAjFEXnRbJ2MBGbWZLwBBYscw4NHKDhCYBkFOm6DjNrDCRxFWPuJPcyTIAwPOHh IyF3DGFxLGXfCX4MHcFrIVKeKhO8BALzJKQkFVJfkw 7BXBXrNWGbFvY2OtNcSXAzBUGiPAosKREpKCFlMZTpOMOwZSQoAA0SLqYdEWFlCjHuATGwORBpLFZdft 5TRAIgYJMuJzHrRiJrFROdZCKbLDwoEQVaGTV6ZxO0HOWtSGDgXR8FZwIoGDJeJah1QYBrUQNmQXHclr 7UBWHbTQWqDRy3JDEiWLUwBUZxIEwaHHQkBPX8DIX0 AXTaLDMsDL2PUjTzGTLiVgkrVDTzGMToROWbiy9BAUWaDOEtQQk1FPHfWXQaYXZfJXsuAUKrOJPmMbB1 GCRfHBHjYV7RRyCyNUBpLoHkIEXoKIBbTZHken7MZQKvQNFdELLgFRTwSLBlHAJaOMh6ieDleCNdCUc7 QH8TU9LuwrWpPOKNEe2Qp714ZOBmFDKmMi1ZY3irNn 3qOGQlAILMCu9QXXi7ZTZ8Z0J9SzW3T7H9IwOqBMMqUjA1EtDpUZRjHKF6HfQ+ORu6RonnEXq3KAa1EX blWDE1X8P3ROZmHCJvJYD9RVFxTB5iMMQPRd2+CAjuoQAgjNviQFDUYeAiPfe8PYxqZYRKBy7Q ID Date Data Source [id number] 07/12/2020 05:17:00 PM [facility] Name Value Range Interpretation Code Description Data Evelin rce(s) Supporting Document(s) Glucose, Fingerstick 215 mg/dl 70-[address] [facility] The above 1 analytes were performed by [facility] [id number] [place] [address],[id number] [address] ID Date Data Source [id number] 07/12/2020 05:09:12 PM [facility] Patient: JAGJIT IBARRA : 1960 MR N: [id number] [facility]: [facility]TR[facility] CAROTID DOPPLER BILATERAL Provider: MICHELLE CABRERALINICAL [...] rce(s) Supporting Document(s) ID Date Data Source [id number] 07/12/2020 04:35:07 PM [facility] Name Value Range Interpretation Code Description Data Evelin rce(s) Supporting Document(s) Consults [facility] XIJNCc9uSeOGFwUr26/CZBrhFRGfr2EnVVwrRVl6VZolKMOyY1TqTAW7bG0dSPV6OOpPNhWrDeHiZmY1 lbm BrSeyASmEkCYBrAyxRCbAvETycQngukACnEB3TiSM0BBGhI37gIVNxEAHdK9CtAPO1Kwy+Pg7FQPMetN JtXQ2IGcaQ7X1oylk1Zj9hik1EPLIJlmsMoxi8wamRL4fqfUP29HdHggEEPmFBsJ5gHtp3hD03y3jVZA 0EH0+KRN4JqmUvkJIVO/zODaR8gqcur8ZkTLXXznI/ Y12IvMPbdkim/8JWzpK6S3x7QhrHF1slyVusw/bUOI50qP2VBXfQp+NyrjaEf8EHcHT9KTLEzxCJf4k9 8ybk/GVsu/ltGfkB+C2DTSzClKzo1un6ZMboTkV5hpVOe5g2S8Txmj/QIC5q0iAh75obq4AcvhVkofV6 12tghuledrpJItU3cOldYl+uNesv4IfSh376p9a59c iOPZVNQH++zSypj3EPidRDxWJRNQ63l+e1qloP9KGMcfIeQpZLQJCbWoyZqPGguDOiqcFSu8Vsgg3AWs xKRaURcTIlPhcZ1LG6yBsQFqTDvT84v+Q2PR8f+ckT8QvTAW7AOdzesXBvmYW0PkIUrB+1gsZxXluBuE kgElY3t0rC7ClyHVhQDcZvt0gkS5GqynrJ+W3Cc1ax gXnxaLOLS/OyXAE/oFjrsuWrw3Z/GanGDc5njsposreKAICBcFX+6aRd94SL7ni/Yk4Se9urB/v3X8zR 177Lz5NayrUpcu0/jVNLEIDCoEyK06Ry1/R56RP4RhNb1cALF+NMwRgB6jdgKP8lD2tCCvyA3Of4D5wB 91NF4bEm34KE8+871q10eopTo5kZ13WOjbNfUo7kan G6+JfspdHG+bhkUEz24BXswQgmVkhDedlU2+4Sa1Rf2EJcLnfxj9SCdT+S30qQgbxg8xA7f/yMebuyLG +/8idUA5hV3BK3GByJlrgg4YAQjEu8L8dRtYjcrDo3PEyt0MsHSgc4fX2kYHDqbSX9z94z8uZHTZfWc2 Nithin+zCd5tmPgoHWRzUwDp+IQW9JaKGuTOffGaX45zxD [file] ICAgICAgICAgICAgICAgICAgICAgICAgICAgICAgICAgICAgICAgICAgICAgICAgICAgICAgICAgICAg ICAgICAgICAgICAgICAgICAgICAgICAgICAgICANCi AgICAgICAgICAgICAgICAgICAgICAgICAgICAgICAgICAgICAgICAgICAgICAgICAgICAgICAgICAgIC AgICAgICAgICAgICAgICAgICAgICAgICAgICAgICAgICAgICAgICANCiAgICAgICAgICAgICAgICAgIC AgICAgICAgICAgICAgICAgICAgICAgICAgICAgICAg ICAgICAgICAgICAgICAgICAgICAgICAgICAgICAgICAgICAgICAgICAgICAgICAgICANCiAgICAgICAg ICAgICAgICAgICAgICAgICAgICAgICAgICAgICAgICAgICAgICAgICAgICAgICAgICAgICAgICAgICAg ICAgICAgICAgICAgICAgICAgICAgICAgICAgICAgIC ANCiAgICAgICAgICAgICAgICAgICAgICAgICAgICAgICAgICAgICAgICAgICAgICAgICAgICAgICAgIC AgICAgICAgICAgICAgICAgICAgICAgICAgICAgICAgICAgICAgICAgICANCiAgICAgICAgICAgICAgIC AgICAgICAgICAgICAgICAgICAgICAgICAgICAgICAg ICAgICAgICAgICAgICAgICAgICAgICAgICAgICAgICAgICAgICAgICAgICAgICAgICAgICANCiAgICAg ICAgICAgICAgICAgICAgICAgICAgICAgICAgICAgICAgICAgICAgICAgICAgICAgICAgICAgICAgICAg ICAgICAgICAgICAgICAgICAgICAgICAgICAgICAgIC AgICANCiAgICAgICAgICAgICAgICAgICAgICAgICAgICAgICAgICAgICAgICAgICAgICAgICAgICAgIC AgICAgICAgICAgICAgICAgICAgICAgICAgICAgICAgICAgICAgICAgICAgICANCiAgICAgICAgICAgIC AgICAgICAgICAgICAgICAgICAgICAgICAgICAgICAg ICAgICAgICAgICAgICAgICAgICAgICAgICAgICAgICAgICAgICAgICAgICAgICAgICAgICAgICANCiAg ICAgICAgICAgICAgICAgICAgICAgICAgICAgICAgICAgICAgICAgICAgICAgICAgICAgICAgICAgICAg ICAgICAgICAgICAgICAgICAgICAgICAgICAgICAgIC AgICAgICANCjw/tJIvW0zvlIWuakM9L8bbCy8QEy6GBP7jo6ItLVRnRMvknmOdVawNAjPvRXUhIijAQo l4EZxyDC5SgMVoZ6BdF0MrCEqjCG0VWQUlAHFurBOxXJNsNKOdJkO6JRKvBNxzIU0RuWNcUJdrQTBeUZ IgNyAwIFIgOSAwIFIgMTEgMCBSIDEzIDAgUiBdDQog VI5Gk5WytQG1ZKp+Jy9MEL0bu8JwMNyhBIBqYB8hqu5BISrYUoKuV5YfawF2SUFmMKBlYp2KOUNpUUSy nYX9WXEcQIYCMoXgJ6EcxQ94RXNEMs2+IIehraKgZagUWhMlKUFlw1IkPBf7NE3HQKRbREj3tTZlB70l w8MqoJYzYglwGIxbynGGVFYnr22pONqxCJMpMRIoIg 4yVx4uPRXuSSPvRkAnBMSEXS8WZDEmBDBciKUeVMJjPFPJQC5ZBJzbJGS3GukbvqZmnQMcVFmjNG4EMV JlbnQgMzkgMCBSDQo+Xa0MGB8oz7ZzGLz3RMGqRS9nys0GVRlWErInI8J4dISlN8M4XOkzCw6OYISpCX KuNxmpXUEUOMqoAS5JOK3rsqX6MQ4ZxPQeMANxVEJi vMYlTRk1Q39vfMChRAqlTI3DGNT+Yadira+In8OTHHcWILmFDZjQkWjDFNNQzJzL0VbC4NFb4PuR4ZhHE39 pOnerfPjLFpwFJ5VNU3pUDGcGJBOMU9LdKObqS5fdgJcLATuVMRJQkFjP93zhIIfAAQuJLA5XAGzEo2C EQQaW4WysySjwKtvrlRpQGXjMZABKD6BPCjpasLatJ PotCbiBC30aHktSB1TOa3ZVsCxDN9bcv0JcCGhWw5CEJI2Tu4QWTFjXPLpBZMqJVI0UPUvYgJiUQmhHA VlAJSfFPU9XPXmJDHgFX8XSmHlHQPoBvO1IGrhKBUhYQRokv6MRRJbNWGkOUH6NVLtQQXtTGHhCPltPC CwYVUmMUP0OINfZIYsBJ2HXlXmQWIvVKKdGMUsJFRu NVJzkm0AKQDcZTQfBWRtHXSpOREzKHAnOLsfZNBoUDR1OoU3RDTrWAYhZR3CFlIkOGQvJOx9OyDxNLYe OHCuft8YBCEbTWJaNQNvWEZmBEJqJHVeYKouUPKlUYCmKzB1YWQxTKXzMR2NDmFrUQAwEFZ6WVcgRJFa OXDjkk0WYZWiQJJfGLV0BtBmEJHiVEBhRApcUDRaME Y5PDV1MUBzNLGjQV3EVkOeOINpCAMjHvQdSQLrIUZsjx0CQMVzQESlQdAmCxFcFJEkIWVcDFbzGIJhWZ Z9BIS6XRXlTITeNE5LIdIwOWNzIPI4AwVnLMRgOJHrug9OLBUuZANnFgD9PvXgIYYfFZWaIIikNFRaPF O9JZrqWLAgCUWaIC7DKhEcUJIoXKtqXjDtQQWkIXNo iu6IVLReOJJgQZYkHrHvXDEgNJEaUVwcWFHbAYSkEgX2LXLaTKOmJQ4YJfTeTTBzOaQ7DlykGFPbIMEz qh3VNPGzCHUqEPX6CmAaWMAzMDQcZYgtXQRvJPTcHtIwWPFmMPHlVA3HKgElQLVqHfYiZxHxNKKkNEUu xw2RAMHvQJAwUiZ4NhBiWGMrQTWnCFxlJCMnWFUnIn Q5ANIfLBFePP0SNrBjVLVnCaV9BujlHNNgELSvea7RJLIoVBGgZzu3ShNjPYJcCWWoQPaxNDKkXGGcSV N2DPReSSRpFF8THdQtWFTgUbY3EzylCDUzRDLeoz6GLQFzXERsPXA0XzUbMNVdUEMeSPsvWNSwJZV3Ni WuTWKbCKEgXY8EHfEnCMJrQeBnGIGyZRDpLLPkxd3O EMUbHMJmIqK9WZDlSPKlLCAfFZusSIKtHMH2ITj4PZNdULMsQH4XHnWzHVFqMffwFVHrDLYiVDPpvo3P ZWXqRHBuHSPbGUPrXPRkWBOaPYmbGOBmCXD9AHc9HJJjDCPnHH3CKdOsIEPdUik1NNbvHAWnSRBfid9Z wVDytUrikm5BDUlQSr4ZaZjaGBPwQKjvVh5unSW8BX UfJYZOSv6RkoJtZBSpXCZZZQxcFWKcCFX9VfD0LALjPkL0IGIwEjGaB1LlKSMqGBWjOmM7URPhBjC7Tf grAKz3KRWbSXHhUBD2ApJ0UOR7ZHGtAQM4NVjjFjG+SP8pZXg+Hr8Is5MvpxN5tfAtPZppQNk4ZD8MFY ZHN5LINh== ID Date Data Source [id number] 07/12/2020 02:55:[address] [facility] Name Value Range Interpretation Code Description Data Evelin rce(s) Supporting Document(s) Progress Notes [facility] ZSCSSr9iSsBWVuDk75/BKHhxKRFch4QzAExvUHn4LBhsUFKuB9CwNXD3tN5oFFC8MVcYAlXbDqYhTcO8 lbm [file] WvBZF3JnMgWTK9ByWbIH3PFs7LAwT1WWT6iZKiVj9BRpH5PCxHYvJhIJ5PRPp= ID Date Data Source [id number] 07/12/2020 02:39:[address] [facility] Name Value Range Interpretation Code Description Data Evelin rce(s) Supporting Document(s) Consults [facility] EXSXIo7lBgHLOiCk04/SIGirLNKwj8YwYUdaUKg0GLkzTUKpW6FbBVM8eO6eIYQ7BSnXGgLnZrNkWtJ5 lbm SkTjcTKlIlGPHrKkuLOjDaMEzfSncghMTvPP9QeHL2IAOnX70rLWTmXZHsP3HvZJD5Iuq+Lo8JAUKxeR JzQG7ZLzsB2F3MxnSKDeBoM7C/zY48IoUjl/xKxJbIkeWBoVENo9GZbWYJtyBUC68U4+hDEcuhB9M3br YHuyS60wViKAZYiBUuacp1ja9mv6bLAMYQtiY/n/9Z VN69/eD++fc87Vv1h246/7LeoXPbeKGQI5w+M4m/MLIPBXTG5O/hV4glsfta+FrKheykv2qPjawKsZIw U28lns4h05dXIOL/J9c3goP9EXd8vlczQ1TUauaKpegJ1Jynis3s/OiO/+2pWJ4JuYfm3E6o2+ZMNud1 F22x9fA1nenfTjmkWeafjdZ81srfb+D2l0Wonun8Eg [file] ID Date Data Source [id number] 07/12/2020 02:12:[address] [facility] Name Value Range Interpretation Code Description Data Evelin rce(s) Supporting Document(s) Consults [facility] CCDSPi4yAcHQVmXk46/ZWUodERVob3SpSKgcESh5SPmoZVBmL3KaEER0gH2uGGW4GYtIAwIaRqOeFkM3 lbm [file] Ry6Rj0OznzX0wlBwBSsnTbT0Fx0UCVOOS7SFNr== ID Date Data Source [id number] 07/12/2020 01:24:[address] [facility] Name Value Range Interpretation Code Description Data Evelin rce(s) Supporting Document(s) Care Plan [facility] YYASQm1tWkVBGgKd41/NMJmvIFApk2YeSBihYUt0HQssQYQsO7EhSOF9aO7xJTZ1MXfECbXfFfUvNkO0 lbm [file] GwM9DLP0oYTaRj5PMwH8YZTYQhJlCV1VMIm= ID Date Data Source [id number] 07/12/2020 01:17:[address] [facility] Name Value Range Interpretation Code Description Data Evelin rce(s) Supporting Document(s) Care Plan [facility] XBVRQz3tQoNMOaTk07/JNKvxTWXix5SuZVkrVYn0OIhsFASfK2JoWES1hZ1kMUA3TWsDQxKfVvSuEjA4 lbm [file] AgICAgICAgICAgICAgICAgICAgICAgICAgICAgICAg XEBxDLIhSAAoKEKpNYAwCJBmOIVsHXIgWLTtDORgMEVrYWAaITYhQKMlVPZxAHRlKI7ROONdAFCmBRDh ICAgICAgICAgICAgICAgICAgICAgICAgICAgICAgICAgICAgICAgICAgICAgICAgICAgICAgICAgICAg ICAgICAgICAgICAgICAgICAgICAgICAgICAgICAgIA 0KICAgICAgICAgICAgICAgICAgICAgICAgICAgICAgICAgICAgICAgICAgICAgICAgICAgICAgICAgIC VwAIJnWXXuKBVoFCJyJWAaICKtLUJfJYBhTPPbGHCxKPUqUNOcHVWqFN9EGGDiAWIvOTEmRJXjAUQoRN AgICAgICAgICAgICAgICAgICAgICAgICAgICAgICAg PCCvFEBbNNJcVHPwIPUdLUDsJWMuBOGwWQEySREcQEKlUPZbXLZuMERyDIFvKKYaRWLyCB9MVAXsBMNc ICAgICAgICAgICAgICAgICAgICAgICAgICAgICAgICAgICAgICAgICAgICAgICAgICAgICAgICAgICAg ICAgICAgICAgICAgICAgICAgICAgICAgICAgICAgIC UzHY4RQHCpXEWcMUPiBSGdQVSdMACqKLKeWNGtCUSoHXFvRNUaTNQqWVWwVARwBTGuDHHcMFEyZWExQX KpGCYoODAcBWJnUDNeNNWyQAJvOFSvUUVhWBGzALIsFHBeOQEnZCRgWRYgKG5PBJCwOIGxRBKsXVCxMP AgICAgICAgICAgICAgICAgICAgICAgICAgICAgICAg RLSeSVLdIDNjGDQuPBRsSNHyPLEgUQOyKYFgNKOtOZAgGXXrQUQjPQUxQCSlVYQwIHXfGDYoCX1HTQOf ICAgICAgICAgICAgICAgICAgICAgICAgICAgICAgICAgICAgICAgICAgICAgICAgICAgICAgICAgICAg ICAgICAgICAgICAgICAgICAgICAgICAgICAgICAgIC EgRMVjTT6YZJTgEQMwXYKeOONjQQGjDJEsVZLzRZToJNKuCDEdYKYlKDNzQUFkNXUhQIPrTFHxPYSzAK UjJNOuTLAkXOUxCUPrVGMhBYHkSFQvZDZnFIAlZAIsNHUzUJLmTMDgOSXlEZNxYC1GWEFuNUUmYHJkMQ AgICAgICAgICAgICAgICAgICAgICAgICAgICAgICAg RGEyTYUgOYNdUENvRLGrZSDmRDKiUUKjQMQdJBZcFKQjONSbQWMfONUzTBTcELVrPATeINXkNCPiSC5X KH77rQYmn3C2OJGaQT8gchj/Xb6WSTxrpfUraZUjIJ2SBtHxYR1xed8CTpHvPH8mew7HATzCNnUhW6B7 zVLbDBXwOEIYViEnM90iRKkfAo33TIveVUCcNyWgCU h2Ru1MWmUaH5xsLMCqTkR6ULYkGhVbKYgfOM7Iw5PirDLyNLj+Fa4FZQ0oq9LrXMhxIWBrIO7gth2YKA zLSmEsH3PipeA3MUM1WPBbGd4HJCIzAQTtsBVjZyUtWGASYnChW2UezQ73RKXYVi3+DQplbmRvYmoNCj A7NMWpc9VyWCs0DY7UXDLxNAv2vXMgZ6RoBUBTqGZf ZFE1MS6pixgsb0MqLUYblB5uYJapALgrSGDyKMQqHo7zEu8kGIWbZCErYoQkUQKRDD4KRELfULOdjCYy TFCkYJFTFJ6FUDtaCOV8FakpalGjwHIjTSkjOK9LJZKfklJsEsDeGVSRNWd+Xb8UNZ0yp4SaLRwsZnUe ZQ6equ4WWJnQDlBeQ1R8eFBsJ5A6EVqsRc3PZEIbWM WeStAdQFDVQIhqMW7FXZ5ivfQ7VW8TfJKvRYGgDUYjpYKsFWy8Q40azAYvWVlnDW6JANL+Yadira+Pg0KIC JcYSIdXNOwQtMxEWDMNlNyJ7FlZ7QHq8StI0UePO70gNcavhEyJHjaRH4ACF4lYGLdZFZWCS3KbEQjcM 9ckoEcLSWcMRUFQcZeA02epSPkZFSnJIJ6ADLvGx5Y KEUaY8TnhuYzpJccknRmVIEeOEXPDU7GXTwinqYpcLCmzPseAW14nTlpDA3OZr3TUhKaHH0fmw7IfHNn Pm4UKKUpXB4OPHAjJRSsJBUkBQR3JYErAaFwOSnoVIBgBNLfGVK7AUNxHLJkOI4TFhHoMROiXaLfSfuo LEPuVUQhbv8OPMZnEVJiBDrbKPVoKXOiYWGyXNfdIC RpTONiNZG9JZFnCVIwQL2FAvVgOIQeJJMfTyQiGOUzBYCjeu9KBXQpIJCrTUF1IPPdATQqWVPtTBqdGB MhCDIgFQT8WJMiWKXsFJ4ZVkQkWSQqPUG9LxreQMTuLQVnhc4UELHaJJZyYxdoXcWmGFThMBWjXZrlYE YbBOZiLKaaAQBdAQAtQG9CCbMrWANiIKSmPesmAQJf SWTopa9QAMTcHMOcMEV9QUOkEFJiPXAbNDibVXGxNKT4RwV1WYAgJEJpHK0HAzNzQAHzPSM5HqSjXCCv FQMsvl8MIEOpTXMnTmLtHWGmOPLeLLTjNTglCKQsAGL7Vrs2JQUrPTBeTI2FPrCyEFZmCWt4NoCcIFFi UVOjlc7QINWpEMVsGIC3PjFvYJSlIYVlBZwbJEAjKJ Z3EnFuFIGaISAlRT6HAuWlMPTmKSx5XUYjJZNuELFhqs3MDANhFLHpIHm8VTGwXEZlVOGsGQfiCDQzOS Q8MPcgUHOxFWWyJN5PJjZeOWTwAdWfOWPmANJiUYCebo2LMSSfCVVsCYX6HETaZEKgYXVeBOwkMUIvVJ GrAZP0HKJyFCAdNV9EKiQuXBAjUyNeTXzkUSGnEGId ll7XXZXaNZPyXtGsNZHgFOLpZZXjRXm7oxDtbGVkVMg5KB6YT7RynjOkPxcAFa9Af505WMF7LSXuEz4G Z9xkSu4jGYExRIIGNm8SYHx7UkxzRUYnTyAsXyd9CBd8GPO8G2A9TBDoSSAfAeBrPcR+DCf7BCCzLFQ6 TJChSYA1EJz8RwkfGKN5A9MmQwSaHqPiOZ5jFXYDMe7+GPkkdOUrnMvbELPOFvPxTDe3IRphYLCJUz0L ID Date Data Source [id number] 07/12/2020 12:40:00 PM [facility] Name Value Range Interpretation Code Description Data Evelin rce(s) Supporting Document(s) Glucose, Fingerstick 279 mg/dl 70-[address] [facility] The above 1 analytes were performed by [facility] [id number] [place] [address], ,[place] [address] ID Date Data Source [id number] 07/12/2020 08:29:04 AM [facility] Patient: JAGJIT IBARRA : 1960 MR N: [id number] [facility]: [facility] Provider: EDIE MICHELINICAL [...] rce(s) Supporting Document(s) ID Date Data Source [id number] 07/12/2020 07:33:[address] [facility] Name Value Range Interpretation Code Description Data Evelin rce(s) Supporting Document(s) Glucose, Fingerstick 229 mg/dl 70-[address] [facility] The above 1 analytes were performed by [facility] [address],[facility] [id number],[place] [address] ID Date Data Source [id number] 07/12/2020 04:41:[address] [facility] Name Value Range Interpretation Code Description Data Evelin rce(s) Supporting Document(s) H&P [facility] RCDXGz2zArFERsVp85/KSAoiZEIhr1LxEFofSOg6JFidLJGyJ8ZvMFE5xZ6eLDH8HArKNjBlKmCiXbR2 lbm [file] AgICAgICAgICAgICAgICAgICAgICAgICAgICAgICAgICAgICAgICAgICAgICAgICAgDQogICAgICAgIC AgICAgICAgICAgICAgICAgICAgICAgICAgICAgICAg ICAgICAgICAgICAgICAgICAgICAgICAgICAgICAgICAgICAgICAgICAgICAgICAgICAgICAgICAgICAg DQogICAgICAgICAgICAgICAgICAgICAgICAgICAgICAgICAgICAgICAgICAgICAgICAgICAgICAgICAg ICAgICAgICAgICAgICAgICAgICAgICAgICAgICAgIC AgICAgICAgICAgDQogICAgICAgICAgICAgICAgICAgICAgICAgICAgICAgICAgICAgICAgICAgICAgIC AgICAgICAgICAgICAgICAgICAgICAgICAgICAgICAgICAgICAgICAgICAgICAgICAgICAgDQogICAgIC AgICAgICAgICAgICAgICAgICAgICAgICAgICAgICAg ICAgICAgICAgICAgICAgICAgICAgICAgICAgICAgICAgICAgICAgICAgICAgICAgICAgICAgICAgICAg ICAgDQogICAgICAgICAgICAgICAgICAgICAgICAgICAgICAgICAgICAgICAgICAgICAgICAgICAgICAg ICAgICAgICAgICAgICAgICAgICAgICAgICAgICAgIC AgICAgICAgICAgICAgDQogICAgICAgICAgICAgICAgICAgICAgICAgICAgICAgICAgICAgICAgICAgIC AgICAgICAgICAgICAgICAgICAgICAgICAgICAgICAgICAgICAgICAgICAgICAgICAgICAgICAgDQogIC AgICAgICAgICAgICAgICAgICAgICAgICAgICAgICAg ICAgICAgICAgICAgICAgICAgICAgICAgICAgICAgICAgICAgICAgICAgICAgICAgICAgICAgICAgICAg ICAgICAgDQogICAgICAgICAgICAgICAgICAgICAgICAgICAgICAgICAgICAgICAgICAgICAgICAgICAg ICAgICAgICAgICAgICAgICAgICAgICAgICAgICAgIC AgICAgICAgICAgICAgICAgDQogICAgICAgICAgICAgICAgICAgICAgICAgICAgICAgICAgICAgICAgIC AgICAgICAgICAgICAgICAgICAgICAgICAgICAgICAgICAgICAgICAgICAgICAgICAgICAgICAgICAgDQ k0Z8txJVVyVDFhCG5cMRu8Bt9+TWyBNxTcYHZ4wxLe cZ6YFM6db3SqCCncSDWgq4WiKNs0QJ1LYRUzSNiwKK5SZZzyjj5MPLNpRREdcGPZl0ypPxNkSFA3MGZk EvodQT4ZYLPvH9nwpzOeXJLmHHXPWMhcAHJSXDwzIHRRAYVbBEBaDfXfKgUbZSFcSGOyKXINNUU1SMKz YrBrFKorBF9Jb0ApuXJ1FNe+Et8KWC1ee1UrNXi0CS RhAF0pdg1UFObATmHfR7XvhnL4DVFbOYEhNh9NIBAwUPZvnET4KJZpDLKEVdVlF8FyjU09WAAMCz1+DQ jwvcGuCjhNVyIuZXBuu1DtXGt6JL7MXRRmKMf3nMJmPRFJNXT6UCSnML8mSDnbKUJdVGGeD9IjC1ccic dkDLDnNKGtVw7wOf2tHGJqBOO9YtW8FZUGIS0GPBTr YYKcrMWjNUYfPJNWSL9PVZrgPNX2RyomomXmeSVzEAkxPO3UZXGwgfJeNAgvSFCULAg+Kw8RSN0en8Zl USo1YXBiRI2qow2EJXeTNpCiI9L0aLAtT4H5APkcLk1WEQTnCLXwHNehBSGCGNjbWL8INS1babU5ZJ7B cXXvNWYjJMLywCZiTPq3P39yjWOvUJlcKE8WDRH+Pi A+Ov2EBHIsMZXyTNWjGmSbKSNSKyPgB2IwY9JUi8NrC0BwZH45jLdiwxXkVFviAN9RQN4qWITzCBHVLN 5YnQPwoV6xlvE7WRIsFFPVJtLbZ23jyFKpBIPsHZP4MURuIm3GMKDyE5NqawTapSvrbaIvIVOnAJREBA 3CJEpilwQtfNFzxYfmCV26mNwzLH5ALe1XGfWyPE9i kl1SbWTiFp9SAPL6Ul7RQUZmWUDjTSVzYBA1ZOPiOmYxHGhwVQMfNJCwQBW8WMYdKQFbJB2IClJuQKFj QojiLKYtKZKmTYTdeq7LWLGfEBX5LJprPiNtTVLbHANgSVefAVDoTUVhWBK6DYDjGOFdCT9KXqUdLVOq FID0TRzpRGFbQITadw4FSNYyVYMoOsN5WmMmVDHoBP ZdVUmgQCIdBWR1GxZ7VKXcTOWbGI2JBwRoMWIcXTx3PVguHCCtAXNwim6AAAMdWBElCVk2QDEzCZEcZM PyEWrrNBHyYTZwVXJ2FANzJMEfBK2LVaEgKWXyVCP3QTntIUTqFANzjq5OZZZpKHWvUpn4JOGnYXXnXN SfROdpXTPqCLZ8PSU8WBXmRGRjPV5OMnYxWNApYVqz NqQwBZVwIQXadi5DVLZqRDJsSCPjJGPmBNWgGYRkYEmhQCPmTOUkNYJ3XYAcYTYnHY7MQfXgNUEoRdVt NgZxYEImAREoyl8OMELyMENdMsF1DPHfMJNwGFNdGNysTTJiWPB7PrHkJOJvUNVlTJ5VUrLuZBJbAnF3 TfGrUOFxDINaqf5MNHIyIZZmPYZaFDVsCTFgSQMhZQ ntNYTxWSL1GVrkNPZkYITzLT5DPqLxTMTwSoC5FonmMVYuVYUbon2MWQQiHMKoMDz6RZVtGOVePSTyJK ctRZRyESC6WWS3TEWcAIRlWV2YMoWcBOHmNtpoXIzzZYBxKKOodt3IJGLfFMYlJlJoJKNkAAPmSPLgML ltBIZxHMB3AcUpIATiZLJdSS6XTpAxSXBaYee1VeFq CKKjVMWyev1JWPToSQHnCWX7RIOcASGxMEBmZPpdXIQxAPL5XeO0LVZbLVKvUW6NBhKyEULdRdw1PRji OXAhLKGxot3JVMLoWCJoBSOkWVRvJBUfTDCdLDclFBAuLEIsEUHrDMNoIYIvGV2KSgFtPKOvQpKbUvgi XONfSTVwov6SKKPtUBUcIDG4WWEgLJRzYDZmZQtmHT OqDEA3YgYtISQeHFMjVY2XRpHmMPLiAvB8DYKpFKPpUPUdnu9SPKQgJERsYse1LCSmCRNhHPLnNVauDL WcQDH1WKI4AEGrYDTfQA2NZyXxPYQlPunsSoNqZNLmXBPaez9WCAMuOYIqLsY1CBDqZLRlEQRiJJaeKH ByYQV3TgK5NVSxLGUuBC3SKlCqVNFdNqf7EiQqMHSt WBNsrb9QPPJaOMTqIJqiVsGwVIApTAJbGNmcAFLpPDO3MRy3XGMjBCGaCF3XFdNoXIBnIboqNkhgLADk KSQuoc6AJEOtXDRjZDH0DdNjRPLlCQFxYJwkSKZlTWEhKEU3YWBwCRLzHT3LAkUsJNLhIZDwAjNhOWDf CUZjwf1VXKZxVEF3KLH8SOSyISKlKJAlFPj3hpPctL HxLMz5NB6LF7QcehCpFRKPOr5Nc560KCYvDMGkYn8BV4qrSi3jASIcXIXSLr1TTYj9GBVwKkqmRVJhBH SqJKuqMqUvHrM8YdK4UCTyQZHyZjG+POwoIBA0TMUeHLGsZXN0Q4TjGPNeDuq0EiGeRBPtYKB8Kb4tVI ANCj4+[id number] ID Date Data Source [id number] 07/13/2020 12:51:[address] [facility] Name Value Range Interpretation Code Description Data Evelin rce(s) Supporting Document(s) Procalcitonin <0.05 ng/ml 0.00-0.50 Normal (applies to non-numeric r esults) [facility] PCT Concentration: <= 0.5 ng/mLInterpre tation: [...] shockThe above 1 analytes were performed by [facility] [id number] [place] [address], ,[place] [address] ID Date Data Source [id number] 07/13/2020 12:21:[address] [facility] Name Value Range Interpretation Code Description Data Evelni rce(s) Supporting Document(s) NTproBNP 161 pg/ml 0-125 Above high normal [facility] Acute CHF unlikely if NTproBNP:<125 pg/m L for age <75 years<450 pg/mL for age > or = 75 yearsCHF likely if NTproBNP:>450 pg/mL for age <50 years>900 pg/mL for age 50-75 years>1800 pg/mL for age >75 yearsCHF very likely if NTproBNP:>37240 (regardless of age)The PRIDE study recommends the above cut-off values. It also recognizesa change in a patient's "dry" value of >25% as being an acute episode of HF. Therefore, a return to their"dry" level at a 25% decrease is an indication of a successful intervention.The above 1 analytes were performed by [facility] [id number] [place] [address], ,[place] [address] ID Date Data Source [id number] 07/12/2020 07:11:[address] [facility] Name Value Range Interpretation Code Description Data Evelin rce(s) Supporting Document(s) Blood Urea Nitrogen 7 mg/dl 7-18 Normal (applies to non-nume kamilah results) [facility] Creatinine 0.74 mg/dl 0.67-1.17 Normal (applies to non-numeric resul ts) [facility] N-Acetylcysteine (NAC) and Metamizole bradley ve the potential to falselydepress Creatinine results. Baseline values before medication adminstration are recommended. Patients undergoing treatment with phenindione will have falselydepressed results. Patients on phenindione therapy should be tested with an alternativeCREA method.Toxic levels of acetaminophen may lead to falsely depressed results forpatient samples. Glomerular Filtration Rate >90.00 mL/min/1.73m2 [facility] GFR Reference Ranges:Normal Function or Mild [...] of Health and the National KidneyFoundation. The Gordon method used in calculating this result is traceable to IDMS standards. Glucose 205 mg/dl 70-110 Above high normal [facility] Sulfasalazine has the potential to false ly depress Glucose results. Sulfapyridine has the potential to falsely elevate Glucose results. Baseline values before medication administration are recommended. Calcium 8.7 mg/dl 8.5-10.1 Normal (applies to non-numeric resul ts) [facility] Sodium 138 mEq/L 136-145 Normal (applies to non-numeric resul ts) [facility] Potassium 3.3 mEq/L 3.5-5.[address] [facility] Chloride 106.0 mEq/L 98.0-107.0 Normal (applies to non-numeric resu lts) [facility] Carbon Dioxide 26.7 mMol/L 21.0-32.0 Normal (applies to non-numeric results) [facility] Anion Gap 8.6 7.0-15.0 Normal (applies to non-numeric resul ts) [facility] The above 10 analytes were performed by [facility] [id number] [place] [address], ,[place] [address] ID Date Data Source [id number] 07/12/2020 07:11:[address] [facility] Name Value Range Interpretation Code Description Data Evelin rce(s) Supporting Document(s) Magnesium 1.7 mg/dl 1.6-2.6 Normal (applies to non-numeric resul ts) [facility] The above 1 analytes were performed by Lucy [facility] [id number] [place] [address], ,[place] [address] ID Date Data Source [id number] 07/12/2020 07:11:[address] [facility] Name Value Range Interpretation Code Description Data Evelin rce(s) Supporting Document(s) Troponin I <0.015 ng/ml 0.000-0.100 Normal (applies to non-numeric re sults) [facility] Reference Values:Negative:<0.07 ng/mLInc reasing Risk of ACS:0.08-0.10 ng/mLPositive:>0.10 ng/mLConditions other than NE that cause increased troponin I values includebut are not limited to chest trauma, cardiac and non-cardiac surgery,congestive heart failure, drug cardio-toxicity, inflammatory diseasessuch as myocarditis, pulmonary embolism, inflitrative diseases, andacute neurological disease.An AMI diagnositc cutoff within a range of 0.6-1.5 ng/mL is consistentwith the WHO criteria for AMI.Concentrations of Biotin above 100 ng/mL can potentially result ininterference. Results obtained using [employer].The above 1 analytes were performed by [facility] [id number] [place] [address],[id number],[place] [address] ID Date Data Source [id number] 07/12/2020 06:52:[address] [facility] Name Value Range Interpretation Code Description Data Evelin rce(s) Supporting Document(s) WBC 5.39 x1000/ul 4.80-10.00 Normal (applies to non-numeric re sults) [facility] RBC 3.88 x1Mil/ul 4.70-6.10 Below low normal [facility] Hemoglobin 11.3 g/dl 14.0-18.0 Below low normal [facility] Hematocrit 34.7 % 42.0-52.0 Below low normal [facility] MCV 89.4 fL 80.0-94.0 Normal (applies to non-numeric resul ts) [facility] MCH 29.1 pg 27.0-31.0 Normal (applies to non-numeric resul ts) [facility] MCHC 32.6 g/dl 32.2-37.0 Normal (applies to non-numeric resul ts) [facility] RDW 14.9 % 11.5-14.5 Above high normal [facility] Platelet Count 163 x1000/ul 130-400 Normal (applies to non-numeric results) [facility] MPV 10.1 fL 9.4-12.4 Normal (applies to non-numeric resul ts) [facility] Neutrophils 62.3 % 40.0-74.0 Normal (applies to non-numeric resu lts) [facility] Lymphocytes 23.7 % 19.0-48.0 Normal (applies to non-numeric resu lts) [facility] Monocytes 8.9 % 3.4-9.0 Normal (applies to non-numeric resul ts) [facility] Eosinophils 3.9 % 0.0-7.0 Normal (applies to non-numeric resu lts) [facility] Basophils 0.6 % 0.0-2.0 Normal (applies to non-numeric resul ts) [facility] Immature Granulocytes 0.6 % 0.0-0.[address] [facility] Nucleated RBCs 0.00 % 0.00-0.20 Normal (applies to non-numeric r esults) [facility] Abs. Neutrophils 3.36 x1000/ul 1.92-8.31 Normal (applies to non-numeric results) [facility] Abs. Lymphocyte 1.28 x1000/ul 1.20-3.70 Normal (applies to non-n umeric results) [facility] Abs. Monocytes 0.48 x1000/ul 0.14-0.97 Normal (applies to non-nu meric results) [facility] Abs. Eosinophils 0.21 x1000/ul 0.00-0.76 Normal (applie s to non-numeric results) [facility] Abs. Basophils 0.03 x1000/ul 0.00-0.22 Normal (applies to non-n umeric results) [facility] Abs. Immature Gran. 0.03 x1000/ul 0.00-0.[address] [facility] Abs. Nucleated RBCs 0.00 x1000/ul 0.00-0.02 Normal (appl ies to non-numeric results) [facility] The above 24 analytes were performed by [facility] [id number] [place] [address], ,[place] [address] ID Date Data Source [id number] 07/12/2020 12:07:[address] [facility] Name Value Range Interpretation Code Description Data Evelin rce(s) Supporting Document(s) Glucose, Fingerstick 187 mg/dl 70-[address] [facility] The above 1 analytes were performed by [facility] [id number] [place] [address], ,[place] [address] ID Date Data Source [id number] 07/17/2020 09:55:[address] [facility] Name Value Range Interpretation Code Description Data Evelin rce(s) Supporting Document(s) Culture Result No Growth After 5 Days [facility] The above 1 analytes were performed by Lucy [facility] [id number], ,[place] [address] ID Date Data Source [id number] 07/11/2020 10:37:00 PM [facility] Name Value Range Interpretation Code Description Data Evelin rce(s) Supporting Document(s) Troponin I <0.015 ng/ml 0.000-0.100 Normal (applies to non-numeric re sults) [facility] Reference Values:Negative:<0.07 ng/mLInc reasing Risk of ACS:0.08-0.10 ng/mLPositive:>0.10 ng/mLConditions other than NE that cause increased troponin I values includebut are not limited to chest trauma, cardiac and non-cardiac surgery,congestive heart failure, drug cardio-toxicity, inflammatory diseasessuch as myocarditis, pulmonary embolism, inflitrative diseases, andacute neurological disease.An AMI diagnositc cutoff within a range of 0.6-1.5 ng/mL is consistentwith the WHO criteria for AMI.Concentrations of Biotin above 100 ng/mL can potentially result ininterference. Results obtained using [employer].The above 1 analytes were performed by [facility] [id number] [facility], ,[place] [address] ID Date Data Source [id number] 07/11/2020 10:37:00 PM [facility] Name Value Range Interpretation Code Description Data Evelin rce(s) Supporting Document(s) C-Reactive Protein (Non-Cardiac) 3.49 mg/L 0.00-3.[address] [facility] The above 1 analytes were performed by [facility] [id number] [facility], ,[place] [address] ID Date Data Source [id number] 07/17/2020 09:55:00 AM [facility] Name Value Range Interpretation Code Description Data Evelin rce(s) Supporting Document(s) Culture Result No Growth After 5 Days [facility] The above 1 analytes were performed by Lucy [facility] [id number], ,[place] [address] ID Date Data Source [id number] 07/11/2020 03:43:00 PM [facility] Bridget Ce is a rapid, automated qualita tive anddifferentiation of Influenza type A,B and [id number]-RT-PCR testNORMAL VALUE IS "NOT DETECTED".Limitations of the bridget ce Influenza A/B & ENTU-NSX-1jmelz method.Modifications to manufacturers recommendation and proceduresmay alter performance of the test.Negative results do not preclude Influenza A,B or SARS- PZD7jcbsdqeqsa and should not be used as the [...] rce(s) Supporting Document(s) ID Date Data Source [id number] 07/11/2020 03:43:00 PM [facility] Bridget Ce is a rapid, automated qualita tive anddifferentiation of Influenza type A,B and DDCE-[id number]-[id number]-RT-PCR testNORMAL VALUE IS "NOT DETECTED".Limitations of the bridget ce Influenza A/B & CVOS-ZNH-0cbace method.Modifications to manufacturers recommendation and proceduresmay alter performance of the test.Negative results do not preclude Influenza A,B or SARS- HFR1coqilcobhl and should not be used as the [...] Supporting Document(s) Extended hours FLU/COV2 [facility] ID Date Data Source [id number] 07/11/2020 03:08:00 PM EST [facility] Name Value Range Interpretation Code Description Data Evelin rce(s) Supporting Document(s) Bridget Ce SARS/FLU SARS-COV-2 NOT DETECTED [facility] This lab was ordered by [facility] and reported by [facility]. ID Date Data Source [id number] 07/11/2020 03:08:00 PM EST [facility] [address] [place] [address] [phone] NAME SEX PT STATUS ACCOUNT NUMBER JAGJIT IBARRA REG ER [id number] ORDERING PHYSICIAN LOCATION MEDICAL RECORD NO. Mika Shaffer MD ER [id number] ATTENDING PHYSICIAN DATE OF DATE OF EXAM/TIME [...] Reported By Reggie Kelly MD on 07/11/20 2024 Signed By Reggie Kelly MD on 07/11/20 1510 Date Time CC: Reggie Kelly MD; Jd Lal MD Techn: CARRC Trans Dt/Tm: Trans by: DT Prt Dt/Tm: 2643-8352: Total DLP = 0.00 mGy-cm Fluoroscopy Time (in secs): Name Value Range Interpretation Code Description Data Evelin rce(s) Supporting Document(s) ID Date Data Source [id number] 07/11/2020 02:53:00 PM EST [facility] Oxygen Delivery Method Room Air Anticoagulant or Thrombolytic medication : Other Po Anticoagulant Name Value Range Interpretation Code Description Data Evelin rce(s) Supporting Document(s) Leukocytes [#/volume] in Blood by Automated count 4.1 10*3/uL 4.45-10.71 Below low normal [facility] Erythrocytes [#/volume] in Blood by Automated count 3.79 10*6/uL 4.3-6.1 Below low normal [facility] Hemoglobin [Moles/volume] in Blood 11.1 g/dL 13-18 Below low no rmal [facility] Hematocrit [Volume Fraction] of Blood by Automated count 34.0 % 42-52 Below low normal [facility] Erythrocyte mean corpuscular volume [Ent itic volume] in Cord blood by Automated count 89.7 fL 80-96 N [facility] Erythrocyte mean corpuscular hemoglobin [Entitic mass] by Automated count 29.3 pg 27-31 N [facility] l Erythrocyte mean corpuscular hemoglobin concentration [Mass/volume] in Cord blood 32.6 g/dL 33-37 Below low normal [facility] Erythrocyte distribution width [Entitic volume] by Automated count 15 % 11-15 N [facility] Platelets [#/volume] in Blood by Automated count 157 10*3/uL 130-472 N [facility] Platelet mean volume [Entitic volume] in Blood 9.4 fL 9.1-13.1 [facility] Neutrophils/100 leukocytes in Blood by Automated count 55.9 % 41- 77 N [facility] Neutrophils [#/volume] in Blood by Automated count 2.3 U 1.7-7.6 N [facility] Lymphocytes/100 leukocytes in Blood by Automated count 30.5 % 14- 46 N [facility] Lymphocytes [#/volume] in Blood by Automated count 1.3 U 0.6-4.6 N [facility] Monocytes/100 leukocytes in Blood by Automated count 8.5 % 4-12 N [facility] Monocytes [#/volume] in Blood by Automated count 0.4 U 0.2-1.2 N [facility] Eosinophils/100 leukocytes in Blood by Automated count 3.9 % 0-7 N [facility] Eosinophils [#/volume] in Blood by Automated count 0.2 U 0.0-0.5 N [facility] Basophils/100 leukocytes in Blood by Automated count 0.7 % 0.4-1 .3 N [facility] Basophils [#/volume] in Blood by Automated count 0.0 U 0.0-0.2 N [facility] NUCLEATED RED BLOOD CELL 0 % [facility] NUCLEATED RED BLOOD CELL# 0 U [facility] Immature granulocytes [Presence] in Blood by Automated count 0-2 N [facility] Immature granulocytes [#/volume] in Blood by Automated count 0.0 U 0-0.1 N [facility] Manual Differential panel - Blood NO [facility] ID Date Data Source [id number] 07/11/2020 02:54:00 PM EST [facility] Oxygen Delivery Method Room Air Anticoagulant or Thrombolytic medication : Other Po Anticoagulant Name Value Range Interpretation Code Description Data Evelin rce(s) Supporting Document(s) pH of Venous blood 7.37 7.25-7.45 N [facility] Carbon dioxide [Partial pressure] in Venous blood 48.6 mm[Hg] 41.0-51 .0 N [facility] Oxygen [Partial pressure] in Venous blood 24.5 mm[Hg] 25.0-4 0.0 Below low normal [facility] 39.6 Bicarbonate [Moles/volume] in Venous blood 28.2 mmol/L 22.0- 26.0 Above high normal [facility] Base excess in Venous blood by calculation 2.3 -3.0-3.0 N [facility] Carbon dioxide, total [Moles/volume] in Venous blood 29.7 mmol/L 23-3 0 N [facility] 21@Reenter manual test result: 21%@by Barbara Rowe at 07/11/20 1453. ID Date Data Source [id number] 07/11/2020 03:16:00 PM [facility] Oxygen Delivery Method Room Air Anticoagulant or Thrombolytic medication : Other Po Anticoagulant Name Value Range Interpretation Code Description Data Evelin rce(s) Supporting Document(s) Prothrombin Time (Patient) 11.5 s 9.6-12.3 N [facility] INR 1.1 0.9-1.1 [facility] THE INR IS OPERATIONALLY DEFINED FOR RIKI SH PLASMA FROMPATIENTS STABILIZED ON ORAL ANTICOAGULANTS.ROUTINE ANTICOAGULANT THERAPY 2.0-3.0RECURRENT SYSTEMIC EMBOLISM/HEART VALVE REPLACEMENT 2.5-3.5 aPTT.lupus sensitive (LA screen) 24.4 s 22.7-31.6 N [facility] ID Date Data Source [id number] 07/11/2020 03:21:00 PM [facility] Oxygen Delivery Method Room Air Anticoagulant or Thrombolytic medication : Other Po Anticoagulant Name Value Range Interpretation Code Description Data Evelin rce(s) Supporting Document(s) Urea nitrogen [Mass/volume] in Serum or Plasma 7 mg/dL 9-23 Below low normal [facility] Sodium [Moles/volume] in Serum or Plasma 139 mmol/L 132-146 [facility] Potassium [Moles/volume] in Serum or Plasma 4.3 mmol/L 3.5-5.5 [facility] Chloride [Moles/volume] in Serum or Plasma 107 mmol/L 99-109 [facility] Carbon dioxide, total [Moles/volume] in Serum or Plasma 27 mmol/L 20 -31 N [facility] Anion gap in Serum or Plasma 9 mmol/L 8-16 [facility] Glucose [Mass/volume] in Serum or Plasma 331 mg/dL 74-106 Above high normal [facility] Creatinine 1.0 mg/dL 0.5-1.1 [facility] Glomerular filtration rate/1.73 sq M.pre dicted [Volume Rate/Area] in Serum or Plasma Greater Than 60 ABOVE 60 [facility] Alanine aminotransferase [Enzymatic acti vity/volume] in Serum or Plasma by With P-5'-P 17 U/L 10-49 N [facility] ital Aspartate aminotransferase [Enzymatic ac tivity/volume] in Serum or Plasma by With P-5'-P 16 U/L 0-33 N [facility] pital Alkaline phosphatase [Enzymatic activity/volume] in Serum or Plasma 98 U/L 45-129 N [facility] Calcium [Mass/volume] in Serum or Plasma 8.6 mg/dL 8.5-10.1 N [facility] Bilirubin.total [Mass/volume] in Serum or Plasma 0.6 mg/dL 0.3-1.2 N [facility] Albumin [Mass/volume] in Serum or Plasma by Bromocresol purple (BCP) dye binding method 3.5 g/dL 3.2-4.8 N [facility] ital Protein [Mass/volume] in Serum or Plasma 7.3 g/dL 5.7-8.2 [facility] ID Date Data Source [id number] 07/11/2020 03:21:00 PM [facility] Oxygen Delivery Method Room Air Anticoagulant or Thrombolytic medication : Other Po Anticoagulant Name Value Range Interpretation Code Description Data Evelin rce(s) Supporting Document(s) Magnesium [Mass/volume] in Serum or Plasma 1.8 mg/dL 1.3-2.7 [facility] ID Date Data Source [id number] 07/11/2020 03:21:00 PM [facility] Oxygen Delivery Method Room Air Anticoagulant or Thrombolytic medication : Other Po Anticoagulant Name Value Range Interpretation Code Description Data Evelin rce(s) Supporting Document(s) Troponin I.cardiac [Mass/volume] in Serum or Plasma Less Than 0.015 0.00-0.09 [facility] Less than 0.09 NG/ML Negative0.10 - 0.77 NG/ML High Risk0.78 NG/ML or Greater PositiveThe WHO defined the cutoff (definition for diagnosis of NE)for this method as 0.78 ng/ml. ID Date Data Source [id number] 07/11/2020 03:21:00 PM [facility] Oxygen Delivery Method Room Air Anticoagulant or Thrombolytic medication : Other Po Anticoagulant Name Value Range Interpretation Code Description Data Evelin rce(s) Supporting Document(s) Natriuretic peptide.B prohormone N-Terminal [Mass/volu me] in Serum or Plasma 227.00 pg/mL 0.00-175 Above high normal [facility] spital ID Date Data Source [id number] 07/11/2020 03:21:00 PM [facility] Anticoagulant or Thrombolytic medication : Other Po AnticoagulantIs test to R/O PE, DVT or VTE? Y Name Value Range Interpretation Code Description Data Evelin rce(s) Supporting Document(s) Fibrin D-dimer [Units/volume] in Platelet poor plasma 0.99 mg/L 0.0-0.50 Above high normal [facility] @ Has QC been run for this test today?veronica Franks NOTE: THIS TEST WAS PERFORMED USING A PARTICLE-ENHANCED, IMMUNOTURBIDIMETRIC ASSAY AND HAS A SINGLE,CLINICALLY DERIVED CUTOFF OF 0.50 MG/L. ID Date Data Source [id number] 07/11/2020 02:31:00 PM [facility] ED Physician Documentation NAME: JAGJIT IBARRA : 1960 AGE: 60 MR#: [id number] SERVICE DATE: 07/11/[address]: Mika Shaffer [...] had AICD placed for hypertrophic CMY in [place], [place] in 2014, IDDM, HTN, CAD s/p PCI who recently was admitted and dx with endocarditis was transferred to [facility] and had his AICD removedJan2019 and [...] fibrillation (Medical) I48.0 Cardioversion done twice in [place] Raynaud's disease (Medical) I73.00 Spinal fusion failure [...] % (Auto) 55.9, Lymph % (Auto) 30.5, [place] % (Auto) 8.5, Eos % (Auto) 3.9, [...] Phosphatase 98, Troponin I Less than 0.015, Fhf-L-Cvavdpvjfzm Pept 227.00 H, Serum Total Protein 7.3, [...] previously had AICD placed forhypertrophic CMY in [place], [place] in 2014, IDDM, HTN, CAD s/p PCI who recently was admitted and dx withendocarditis was transferred to [facility] and had his AICD removed May [...] Dr. Ferreira graciously accepted patient to [facility] Cardiology for close monitoring. 1536: Dr. Mcdonald, , called and report given, accepted patient to [place]. Patient feels comfortableand would like to go to [place]. 1548: labs unremarkable including electrolytes, trop neg, CXR with cardiomegaly but without acute CPdisease. Has remained normal sinus on Tele. His D-dimer is slightly elevated, however, considering that the patient is on Eliquis, do not suspect a PE. D-dimer was ordered prior to me realizing that the patient was on Eliquis, therefore, its non-specific and was not perused any further. Patient transferred to [facility] in [place] for Cardiology services and possible invasive procedures/testing. [...] 07/11/20 14:29 Discharge Detail Disposition: Transfer - [facility] Med Rec New Prescriptions: No Action Lantus [...] rce(s) Supporting Document(s) ID Date Data Source [id number] 07/10/2020 12:43:00 PM [facility] Patient Name: JAGJIT IBARRA : 1960 Sex: M Pt Unit #: [id number] Location:[facility] Provider: Visit Date/Time: 07/10/20 Primary Insurance: [...] Note: New Patient- Pt was hospitalized at [facility], transferred to [facility] and then to [facility] 06/21-06/23/20 for an infected defibrillator. [place] Kn[employer] Required: No Accompanied by: Self / Same [...] Chest pain Deep vein thrombosis Essential hypertension Laurel filter in place Hiatal hernia History of [...] has been receiving medical care in the [place] clinic in [place]. Review of Systems Const Denies anorexia, Denies [...] obese morbidly obese Orientation: alert and awake [facility] Head: normal to inspection, normocephalic, atraumatic and [...] 2 diabetes mellitus with hyperglycemia; Z79.4 - skilled nursing (current) use of insulin SNOMED Code(s): 93568829 Category: Medical Plan - Jd Lal M.D.: [...] Code(s): D64.9 - Anemia, unspecified SNOMED Code(s): 513747810 Category: Medical Qualifiers: Anemia type: unspecified type [...] depressive disorder, single episode, unspecified SNOMED Code(s): 031844597 Category: Medical Qualifiers: Active/Remission status: in full remission Major depression recurrence: recurrent Qualified Code(s): F33.42 - Major depressive disorder, recurrent, in full remission Mulugeta Lal M.D.: Patient is on medication management for his major depression. He had no issues pertaining to this disease. (5) Paroxysmal atrial fibrillation: Status: Acute Comment: Cardioversion done twice in [place] Code(s): I48.0 - Paroxysmal atrial fibrillation SNOMED Code(s): 967806321 Category: Ness Lal M.D.: Patient has a history of paroxysmal atrial fibrillation. He claims that he has had cardioversion done on 2 occasions. He did not have any complains of palpitations or near syncopal spells. He hasbeen on amiodarone and Eliquis for this. He is going to be following up with the mds rn on anongoing basis for this. (6) CAD (coronary artery disease): Status: Acute Code(s): I25.10 - Atherosclerotic heart disease of [place] coronary artery without angina pectoris SNOMED Code(s): 41633417 Category: Medical Qualifiers: Associated angina: without angina Coronary Disease- Associated Artery/Lesion type: [place] artery [place] vs. transplanted heart: [place] heart Qualified Code(s): I25.10 - Atherosclerotic heart disease of [place] coronary artery without angina pectoris Mulugeta Lal M.D.: Patient denied any symptoms of decompensated heart disease at this time. This is despite recent removal of his AICD. (7) Essential hypertension: Status: Acute Code(s): I10 - Essential (primary) hypertension SNOMED Code(s): 91632619 Category: Ness Lal M.D.: Blood pressure was [...] next visit. This document was dictated using [employer] speech recognition software. A reasonable attempt to [...] angina: without angina Coronary Disease-Associated Artery/Lesion type: [place] artery [place] vs. transplanted heart: [place] heart Essential hypertension I10 Time Spent (min) 60 Comment Extremely complicated patient, complex medication regimen, uncontrolled diabetes <Electronically signed by Jd Lal MD> 07/12/20 1628 Name Value Range Interpretation Code Description Data Evelin rce(s) Supporting Document(s) ID Date Data Source [id number] 07/10/2020 10:56:00 AM EST [facility] [address] [place] [address] [phone] NAME SEX PT STATUS ACCOUNT NUMBER JAGJIT IBARRA REG REF [id number] ORDERING PHYSICIAN LOCATION MEDICAL RECORD NO. MADAI EDWARDS MD MRI [id number] ATTENDING PHYSICIAN DATE OF DATE OF EXAM/TIME [...] Trans Dt/Tm: Trans by: DT Prt Dt/Tm: 7311-1880: Total DLP = 0.00 mGy-cm 5252-8963: Total Radiation Dose = 0.0000 mSv Lifetime Dose: 35.1467 mSv Name Value Range Interpretation Code Description Data Evelin rce(s) Supporting Document(s) ID Date Data Source [id number] 07/05/2020 05:59:00 PM [facility] [address] [place] [address] [phone] NAME SEX PT STATUS ACCOUNT NUMBER JAGJIT IBARRA REG ER [id number] ORDERING PHYSICIAN LOCATION MEDICAL RECORD NO. Whit Cota MD ER [id number] ATTENDING PHYSICIAN DATE OF DATE OF EXAM/TIME [...] Trans Dt/Tm: Trans by: DT Prt Dt/Tm: 9643-4061: Total DLP = 1203.00 mGy-cm Fluoroscopy Time (in secs): Name Value Range Interpretation Code Description Data Evelin rce(s) Supporting Document(s) ID Date Data Source [id number] 07/05/2020 05:31:00 PM [facility] [address] [place] [address] [phone] NAME SEX PT STATUS ACCOUNT NUMBER JAGJIT IBARRA [facility] ER [id number] ORDERING PHYSICIAN LOCATION MEDICAL RECORD NO. Whit Cota MD ER [id number] ATTENDING PHYSICIAN DATE OF DATE OF EXAM/TIME [...] Trans Dt/Tm: Trans by: DT Prt Dt/Tm: 3446-5611: Total DLP = 1203.00 mGy-cm 1385-2845: Total Radiation Dose = 3.7293 mSv Lifetime Dose: 35.1467 mSv Name Value Range Interpretation Code Description Data Evelin rce(s) Supporting Document(s) ID Date Data Source [id number] 07/10/2020 05:11:00 PM [facility] Special Instructions: Lab may order repe at test if initial test elevatedPhysician If elevated, reflex second test in 4-6 hrs Anticoagulant or Thrombolytic medication : Other Po Anticoagulant Name Value Range Interpretation Code Description Data Evelin rce(s) Supporting Document(s) Bacteria identified in Blood by Culture [facility] NO GROWTH AFTER 5 DAYS ID Date Data Source [id number] 07/05/2020 04:55:00 PM [facility] Special Instructions: Lab may order repe at test if initial test elevatedPhysician If elevated, reflex second test in 4-6 hrs Anticoagulant or Thrombolytic medication : Other Po Anticoagulant Name Value Range Interpretation Code Description Data Evelin rce(s) Supporting Document(s) Leukocytes [#/volume] in Blood by Automated count 6.6 10*3/uL 4.45-10 .71 N [facility] Erythrocytes [#/volume] in Blood by Automated count 3.63 10*6/uL 4.3-6.1 Below low normal [facility] Hemoglobin [Moles/volume] in Blood 10.7 g/dL 13-18 Below low no rmal [facility] Hematocrit [Volume Fraction] of Blood by Automated count 32.1 % 42-52 Below low normal [facility] Erythrocyte mean corpuscular volume [Ent itic volume] in Cord blood by Automated count 88.4 fL 80-96 N [facility] ital Erythrocyte mean corpuscular hemoglobin [Entitic mass] by Automated count 29.5 pg 27-31 N [facility] l Erythrocyte mean corpuscular hemoglobin concentration [Mass/volume] in Cord blood 33.3 g/dL 33-37 N [facility] ital Erythrocyte distribution width [Entitic volume] by Automated count 14 % 11-15 N [facility] Platelets [#/volume] in Blood by Automated count 149 10*3/uL 130-472 N [facility] Platelet mean volume [Entitic volume] in Blood 10.2 fL 9.1-13.1 N [facility] Neutrophils/100 leukocytes in Blood by Automated count 60.1 % 41- 77 N [facility] Neutrophils [#/volume] in Blood by Automated count 4.0 U 1.7-7.6 N [facility] Lymphocytes/100 leukocytes in Blood by Automated count 28.9 % 14- 46 N [facility] Lymphocytes [#/volume] in Blood by Automated count 1.9 U 0.6-4.6 N [facility] Monocytes/100 leukocytes in Blood by Automated count 6.1 % 4-12 N [facility] Monocytes [#/volume] in Blood by Automated count 0.4 U 0.2-1.2 N [facility] Eosinophils/100 leukocytes in Blood by Automated count 3.8 % 0-7 N [facility] Eosinophils [#/volume] in Blood by Automated count 0.3 U 0.0-0.5 N [facility] Basophils/100 leukocytes in Blood by Automated count 0.6 % 0.4-1 .3 N [facility] Basophils [#/volume] in Blood by Automated count 0.0 U 0.0-0.2 N [facility] NUCLEATED RED BLOOD CELL 0 % [facility] NUCLEATED RED BLOOD CELL# 0 U [facility] Immature granulocytes [Presence] in Blood by Automated count 0-2 N [facility] Immature granulocytes [#/volume] in Blood by Automated count 0.0 U 0-0.1 [facility] Manual Differential panel - Blood NO [facility] ID Date Data Source [id number] 07/05/2020 05:15:00 PM [facility] Special Instructions: Lab may order repe at test if initial test elevatedPhysician If elevated, reflex second test in 4-6 hrs Anticoagulant or Thrombolytic medication : Other Po Anticoagulant Name Value Range Interpretation Code Description Data Evelin rce(s) Supporting Document(s) Lactic w Rfx (if elevated) 2.1 mmol/L 0.5-2.0 [facility] Called to SHIRLEY Ayala @ 3124 by Iona Cha . Results read back. ID Date Data Source [id number] 07/05/2020 05:40:00 PM [facility] Special Instructions: Lab may order repe at test if initial test elevatedPhysician If elevated, reflex second test in 4-6 hrs Anticoagulant or Thrombolytic medication : Other Po Anticoagulant Name Value Range Interpretation Code Description Data Evelin rce(s) Supporting Document(s) Urea nitrogen [Mass/volume] in Serum or Plasma 16 mg/dL 9-23 N [facility] Sodium [Moles/volume] in Serum or Plasma 141 mmol/L 132-146 [facility] Potassium [Moles/volume] in Serum or Plasma 4.4 mmol/L 3.5-5.5 [facility] Chloride [Moles/volume] in Serum or Plasma 108 mmol/L 99-109 N [facility] Carbon dioxide, total [Moles/volume] in Serum or Plasma 29 mmol/L 20 -31 N [facility] Anion gap in Serum or Plasma 8 mmol/L 8-16 [facility] Glucose [Mass/volume] in Serum or Plasma 245 mg/dL 74-106 Above high normal [facility] Creatinine 1.0 mg/dL 0.5-1.1 [facility] Glomerular filtration rate/1.73 sq M.pre dicted [Volume Rate/Area] in Serum or Plasma Greater Than 60 ABOVE 60 [facility] Alanine aminotransferase [Enzymatic acti vity/volume] in Serum or Plasma by With P-5'-P 15 U/L 10-49 N [facility] ital Aspartate aminotransferase [Enzymatic ac tivity/volume] in Serum or Plasma by With P-5'-P 16 U/L 0-33 N [facility] pital Alkaline phosphatase [Enzymatic activity/volume] in Serum or Plasma 105 U/L 45-129 N [facility] Calcium [Mass/volume] in Serum or Plasma 8.4 mg/dL 8.5-10.1 DL [facility] Repeated by: Iona Cha 07/05/20 1740. Result Confirmation: 8.5 mg/dL Bilirubin.total [Mass/volume] in Serum or Plasma 0.5 mg/dL 0.3-1.2 N [facility] Albumin [Mass/volume] in Serum or Plasma by Bromocresol purple (BCP) dye binding method 3.2 g/dL 3.2-4.8 N [facility] ital Protein [Mass/volume] in Serum or Plasma 6.7 g/dL 5.7-8.2 N [facility] ID Date Data Source [id number] 07/05/2020 05:52:00 PM [facility] Special Instructions: Lab may order repe at test if initial test elevatedPhysician If elevated, reflex second test in 4-6 hrs Anticoagulant or Thrombolytic medication : Other Po Anticoagulant Name Value Range Interpretation Code Description Data Evelin rce(s) Supporting Document(s) Prothrombin Time (Patient) 11.8 s 9.6-12.3 N [facility] INR 1.1 0.9-1.1 [facility] THE INR IS OPERATIONALLY DEFINED FOR RIKI SH PLASMA FROMPATIENTS STABILIZED ON ORAL ANTICOAGULANTS.ROUTINE ANTICOAGULANT THERAPY 2.0-3.0RECURRENT SYSTEMIC EMBOLISM/HEART VALVE REPLACEMENT 2.5-3.5 aPTT.lupus sensitive (LA screen) 26.1 s 22.7-31.6 N [facility] ID Date Data Source [id number] 07/05/2020 05:39:00 PM [facility] Name Value Range Interpretation Code Description Data Evelin rce(s) Supporting Document(s) Troponin I.cardiac [Mass/volume] in Serum or Plasma Less Than 0.015 0.00-0.09 N [facility] Less than 0.09 NG/ML Negative0.10 - 0.77 NG/ML High Risk0.78 NG/ML or Greater PositiveThe WHO defined the cutoff (definition for diagnosis of NE)for this method as 0.78 ng/ml. ID Date Data Source [id number] 07/05/2020 05:39:00 PM [facility] Name Value Range Interpretation Code Description Data Evelin rce(s) Supporting Document(s) Natriuretic peptide.B prohormone N-Terminal [Mass/volu me] in Serum or Plasma 303.00 pg/mL 0.00-175 Above high normal [facility] spital ID Date Data Source [id number] 07/05/2020 04:36:00 PM [facility] ED Physician Documentation NAME: JAGJIT IBARRA : 1960 AGE: 60 MR#: [id number] SERVICE DATE: 07/05/[address]: Whit Cota MD PRIMARY CARE DR: Ida Alcantara [facility] ROOM#: HPI (Adult, General) General Chief Complaint: [...] thrombosis (Medical) I82.409 Diabetes mellitus (Medical) E11.[address] (Medical) Z95.828 Hiatal hernia [...] % (Auto) 60.1, Lymph % (Auto) 28.9, [place] %(Auto) 6.1, Eos % (Auto) 3.8, Baso [...] 07/05/20 16:40: Troponin I Less than 0.015, Bsc-X-Aflybzciyjb Pept 303.00 H EKG Data -: EKG [...] rce(s) Supporting Document(s) ID Date Data Source [id number] 06/23/2020 11:34:27 AM EST [facility] Name Value Range Interpretation Code Description Data Evelin rce(s) Supporting Document(s) POC NOVA GLU 306 mg/dL (70-99) H [facility] [place] [facility]FORMED BY [facility] CLINICAL STAFF ID Date Data Source [id number] 06/23/2020 11:31:55 AM EST [facility] CorporationPATIE NT INFORMATIONPatient MRN Name Date of Age Gend*PT [id number] Jagjit Ibarra 1960 60 years M IPPT Location Admission Date/Time Visit ID Attending ProviderCV-[id number] 06/21/20 1444 --- Kathryn Adler MD([id number]) EPI ID CSN Admitting Provider [id number] Maury Treviño MD([id number]) [facility] DISCHARGE SUMMARYPatient Name: Jagjit Ibarra of : 1960 Age 60 yearsPrimary Physician: Adonis Carballo MD PCP Asinmvafp Date: 06/21/2020 Discharge Date:He will be discharged from [facility] to home.Discharge Diagnoses:Principal Problem: Infected defibrillatorActive [...] 2g IV q8h for 28 daysFollow[facility] Course:Jagjit Ibarra is a 60 year old male with a PMH of CAD, PAF, HTN, HLD, DMII [facility], MSSA bacteremia. Had a TTE at [facility] showing small vegetation on the ICD lead. [...] rce(s) Supporting Document(s) ID Date Data Source [id number] 06/23/2020 10:22:[address] [facility] Name Value Range Interpretation Code Description Data Evelin rce(s) Supporting Document(s) Progress Notes [facility] LOHKDs3sTpSIGqRe22/LYEpvLKPik3TtCVgzIMi0FQqqMKRhZ4NbAOL7qN1wXLZ9OGtQOnSpKgGhQNH8 lbm [file] AgICAgICAgICAgICAgICAgICAgICAgICAgICAgICAg ICAgICAgICAgICAgICAgICAgICAgICAgICAgICAgICAgICAgICAgICAgICAgICAgICAgICAgICAgICAg WMXtUL8WBJHtOSOrYMPgGQRkMLYdUUBcATPiUEGvVEKlZBRzFBRaWGOvFRMiSGSqPDTzJYEwSDLwIKIs ICAgICAgICAgICAgICAgICAgICAgICAgICAgICAgIC ZfLZGyNNKdPSEwYNWsVU1VKNGzFUVtCKJjMSIgAAVnFFLgJMBmJEFrRTJiBGOgRHQlOFLmXTXoADIfSH ObROIgUGStPSHdVSTpPQAyMKJoPMYpXKPfTPLlMPFzOGQqPGStVTIaIMGiJXKwPHHtRZNhVSEiNE4WCY AgICAgICAgICAgICAgICAgICAgICAgICAgICAgICAg ICAgICAgICAgICAgICAgICAgICAgICAgICAgICAgICAgICAgICAgICAgICAgICAgICAgICAgICAgICAg HAFxNUIsUZ2EYFXvKUMpGXIdBIGhCVGgCVYiJUXtXCNsDAHuIGIrBKCyFEFiCUDhGLYmDQBuPVBzEWTn ICAgICAgICAgICAgICAgICAgICAgICAgICAgICAgIC FpSQOzCVNqFNOyCQJnLUFlGJ1PDNCwSEBgMZFpQQIuTGSfGIWkUJQdTFHcNKGyBEVcJSVtTZLpGPIuBO AgICAgICAgICAgICAgICAgICAgICAgICAgICAgICAgICAgICAgICAgICAgICAgICAgICAgICAgICAgIA 0KICAgICAgICAgICAgICAgICAgICAgICAgICAgICAg ICAgICAgICAgICAgICAgICAgICAgICAgICAgICAgICAgICAgICAgICAgICAgICAgICAgICAgICAgICAg OPJyWZJpGAAmXK9VJANjXXGzLGWiMEQrTIDiGCElIYTjCASjOUQdVYIgPTFnTWOpLTKoUVCtFDHjSWVg ICAgICAgICAgICAgICAgICAgICAgICAgICAgICAgIC MhDAKfTSGpHWTpNOXbHVDpCUDhIH9BHGUwMVDgNEKaZOUaQPBfMVRhIQXtLNRlYVQcHPLvVCTgWICwHW AgICAgICAgICAgICAgICAgICAgICAgICAgICAgICAgICAgICAgICAgICAgICAgICAgICAgICAgICAgIC FlLP3PTR16mHQqr9C6QGWwUB5wzqb/Nt0EPDimraAs iYHhPB6NSyFcJA8amw8TPpHsDR8inj0LXQrVUdGpE6Z9xHSrGSMlHKQPUpKxL31yARbiVt01EBqjXVBi HwWmRSm0Ce3CBmJtF2gzEFWzUeR2KLFbPaD9RWIcZaM9REBeImOxBOliQU5Of7NilRKvDKa+Ck1NVG0i i9LqXEbrEyUwBD9quo4AESbSGcQuS0NphoH5DAX1PX KuAj2CARAyMEQfmFJiHVZpXIYUMjVkI3XupH28AZFVRw6+PZfernNdNteSYoL9LZZrv1BcVIp2EK9YON ReHIa8fSXiCLQtN2Ahk3FfUe07KZKtNuxsK5LgGNSQrUixsasjOOGgZEQqIC0fKq3sYWXeLPUtFyV1XC NBIQ3UBCQhBPXhwHNsKOUxXNWPYG0NHIiiSCU2Isng afQpeTCnLHdxFY5IVMZzznNgQhTdZBFYOKt+Os2KWT8jf0VcQEeiZLCfEC2wfc9WQPlCCzEzJ9U9yJCp N0T5YVvvHi8OUENeRELuNdUhRVMLXJvdRF5DHW3nhtK6ZJ8OpZVzDQDmHHXmcQYzPWw1E02vdSGeGIay KV2QOLE+Yadira+Bc7TFNAmJVRzGFDbBxSgFDRPWjIyI8 QwN2OBm0SlU2OwSH41nFvezsPrZRznRG4THD3gCTXvBHGAIP8SmVYgeM2ownUuPkOvMXTUFrDqJ19qnC GuMRHnLNWvLAWzRx8RMUYhN9ZlglPmhPnbclNvRYNgNGYBMP9GFBvbuuSuuMKjlKnhWC97jQvhKV1WNb 7HQoZvGG3glu1TjRHeQj6ERHFiEe1JOTIvTKFkWFFf YOJ8CCExLhUgIOlfBKKyXTLrGLT1GLJiIQHuTY6GWcCiBMJzHIy7DEOhAUAkNRDkzj3HMDCsCTSqVFQw QoDaZVThDHPdCOryZCLmAFSiSEU4JWImGKQpZD7AWtKkSRAjYPC6OGknFNWvIIIizk8LCNBvPQYcZfhz EoRnAOLjCYQtAUdeSKUvLZJ6CKEpPEPzMCEaMI1IAo XbDPRvBOpmYGooHYGcVTVjlv8VLMRtVXHlNNvwNeYpQDUdOJHwPYrkWKKmYWL1VGAeRRGlHRUcPR0LMs RpSLKnLHx6CmlkRYRwEQZfsu7BNWDdGSMwBIL6YTYxWAZwQLSsCEyrBVXpEHUnGuP5KOJwGKXsGX7MQo DmQIFkRWDpCglmVPVoYVHlqo7OSRHyJNBjAUJkUaJj JBLhQCXaNJwcWPCkIHOsGhY9UPMmKGUmZJ5VDvZqLATmMUW0BfdjPDZnZDPxad3HNQRmDAZwAzg3QMYn SWRhLEJwZMbbFYSsXNEbCOWqCQFvLDNlYL8XRyIkBCUrOKBuTNBcWLPkZKIftq0SLYNgWYXbXYWeMATj CYCqFXSoQQgiKDQyOKB9XBD8HQLeJZWlFF3KQzTeLM GrVTEmYimwORRkEDBcxj2SKLExIDFzSPS1KXSvUKZjDRNkOPqjHWXgJZV5ErAuAENlFSDbEN8CZjPmHC SbEPO4TTTbLJMpXUSovu4EFECnRFQtEbzlHpZoWBEmYHZxQEvkLXVhJJG2ZAMhTBHaGJYvOK0WZrUfPC LyANccEBZrYJVoBYBzgc4ZHAKjEHNmWOE7FEYoUFWg ILDhJBquQKGzFHX1KKsjBYZpMSAbUO8FSqUmWQDmUIz2WhQwEZAyFIZsgd8BYHTzPVIoKDFxVjBuIZAx LQOiSYpcXXWsFBDjAPq1SHIxNUFoSC5XGeUyKYJsSqQ9JELoWNRpVCRepc4KsSCpfOaagr4RBYoIFf2L oBroBAX5HEwrHo3ixBBtYXLaAEZRVw4FmuFaIJIkAC QWNSpjEFHlAICxD3ZpKbMpS8F0YZY2GAkqOLR6YzB5S6ZuPuE4YxFeOzR1QbV0LmTnBUI6Flb6ACZ5Hg W1EtI8SWh5FkRmEoXtPWA+BZ5mSWa+Nk1Pu2YrfhY1bsAzLWmaRRm4Wi8IEJQCL4WELb== ID Date Data Source [id number] 06/23/2020 10:17:46 AM EST [facility] CorporationPATIE NT INFORMATIONPatient MRN Name Date of Age Gend*PT [id number] Fred Jagjit 1960 60 years M IPPT Location Admission Date/Time Visit ID Attending ProviderCV-06/21/20 1444 --- Kathryn Adler MD([id number]) EPI ID CSN Admitting Provider [id number] Maury Treviño MD([id number])Infectious Disease ConsultationAdmitted: 06/21/2020ate: 06/23/2020Impression: 60-year-old man diagnosed [...] will therefore not be [facility].I discussed the case with Dr. Adler. I [...] and chest pain. [facility] at which time4 sets of blood cultures grew MSSA. He was begun on cefazolin and [facility] [place] [facility] DANIELE. The DANIELE showed a verysmall vegetation on the ICD lead. Because of this he was referred here fordevice extraction. Dr. Jeffrey Fuentes did this on 06/22/20 (yesterday). Theprocedure was without complications. I am asked to recommend an appropriateduration of IV cefazolin.The patient is feeling well. Denies any difficulty with cefazolin. Donnie. He gets his health care from the DC, who apparently will be providinghis home IV antibiotics after discharge. Apparently he already had someinstruction regarding home cefazolin while he was at [facility].The patient has type 2 diabetes. He says he has not been checking his bloodsugars at home and that his diabetes had not been well controlled prior to thesehospitalizations. [facility] also [facility] because he was not [...] flush 3 mL Intravenous Q8H [facility] normal saline flush 3 mL Intravenous Per ProtocolFamily History: family history includes Heart disease in his father and mother.Social History:The patient is originally from [place]. He spent a number of years in [employer]. He now lives in [place] where some of his family is [...] of blood cultures obtained on 06/07/[facility] at [facility] grew MSSA.Follow-up blood cultures were negative.Imaging: Chest x-ray shows cardiomegaly with possible mild vascular congestion.Echocardiogram: Consistent with hypertrophic cardiomyopathy without obstruction.No vegetations noted on the tricuspid valve Name Value Range Interpretation Code Description Data Evelin rce(s) Supporting Document(s) ID Date Data Source [id number] 06/23/2020 07:40:17 AM EST [facility] Name Value Range Interpretation Code Description Data Evelin rce(s) Supporting Document(s) POC NOVA GLU 286 mg/dL (70-99) H [facility] [place] [facility] [place] [facility]FOR[facility] BY [facility] CLINICAL STAFF ID Date Data Source [id number] 06/23/2020 07:35:48 AM EST [facility] Name Value Range Interpretation Code Description Data Evelin rce(s) Supporting Document(s) SODIUM 134 mmol/L (136-145) L [facility] POTASSIUM 4.2 mmol/L (3.6-5.2) [facility] CHLORIDE 101 mmol/L (100-108) [facility] CO2 27 mmol/L (22-31) [facility] ANION GAP 6 mmol/L (7-16) L [facility] UREA NITROGEN 18 mg/dL (7-24) [facility] CREATININE 1.16 mg/dL (0.80-1.30) [facility] BUN/CREAT RATIO 15.5 RATIO (10.0-20.0) [facility] GLUCOSE 266 mg/dL (70-99) H [facility] CALCIUM 9.3 mg/dL (8.4-10.2) [facility] GFR >60 ml/min/1.73m2 (>59) [facility] GFR ( AM) >60 ml/min/1.73m2 (>59) [facility] GFR INTERPRETATION [facility] --NORMAL KIDNEY FUNCTION OR MILD DISEASE - GFR >OR= 60CHRONIC KIDNEY DISEASE - GFR 15 - 59RENAL FAILURE - GFR <15 Est. GFR calculation based on the MDRDstudy equation, which assumes a steadystate for creatinine. Est. GFR should notbe used for medication dosing. ID Date Data Source [id number] 06/23/2020 07:03:32 AM EST [facility] Name Value Range Interpretation Code Description Data [facility](s) Supporting Document(s) WBC 11.2 10*3/uL (4.1-11.0) H [facility] RBC 3.90 10*6/uL (4.60-6.10) L [facility] HGB 11.9 g/dL (13.5-18.0) L [facility] HCT 33.2 % (41.0-53.0) L [facility] MCV 85.2 fL (80.0-95.0) [facility] MCH 30.6 pg (27.0-32.0) [facility] MCHC 35.9 g/dL (32.0-36.0) [facility] RDW 13.1 % (10.5-14.5) [facility] PLT 276 10*3/uL (150-450) [facility] MPV 8.2 fL (7.1-10.7) [facility] ID Date Data Source [id number] 06/22/2020 04:59:35 PM EST [facility] Name Value Range Interpretation Code Description Data Evelin rce(s) Supporting Document(s) POC NOVA GLU 199 mg/dL (70-99) H [facility] [place] [facility] [place] [facility] CLINICAL STAFF ID Date Data Source [id number] 06/22/2020 02:58:26 PM EST [address] [id number] Name: JAGJIT ANDERSONINTDOB: 1960ex: MOrdering Provider: DILLON Shaikh Prov: DILLON Benitez Provider: Procedure Performed: XR CHEST PORTABLEExam Date: 06/22/2020 14:46MRN: [id number] Number: [id number] Class: InpatientAccount #: [id number] for Exam: extractionTechnique: AP portable view obtained.Comparison: [...] MARGARITO REVELES On 06/22/2020 2:58 PMWorkstation ID: [id number] Name Value Range Interpretation Code Description Data Evelin rce(s) Supporting Document(s) ID Date Data Source [id number] 06/22/2020 02:27:02 PM EST [facility] Name Value Range Interpretation Code Description Data Evelin rce(s) Supporting Document(s) XR FLUORO UP TO 1 HR [facility] ID Date Data Source [id number] 06/22/2020 02:21:56 PM EST [facility] CorporationPATIE NT INFORMATIONPatient MRN Name Date of Age Gend*PT [id number] Jagjit Ibarra 1960 60 years M IPPT Location Admission Date/Time [facility] --- Kathryn Adler MD([id number]) EPI ID CSN Admitting Provider [id number] Maury Treviño MD([id number]) Operative ReportPatient Name: Jagjit Ibarra Date of : 1960Gender: male Age:60yearsMedical Record Number: [id number] Date: 06/22/20Electrophysiologist: Dillon Fuentes MDAssistants: NoneProcedure: ICD [...] a 1 silk tie. Using a 13 Faroese sub-Cmechanical sheath the binding sites over the atrial lead followed by the rightventricular lead were dissected through. Next using a 16 Faroese laser sheaththe right atrial lead was extracted [...] was removed and hemostasis wasmaintained with a [id number] stitchTransesophageal ECHO Visualization: Continuous Transesophageal ECHO wasperformed [...] sent and are pendingSignature: Dillon Dietz MD, [facility], [facility] CENTERCardiac Electrophysiology and Arrhythmia ServiceDate: 06/22/2020Time: 2:17 PMThis document or parts of this document, were dictated using [employer]. A reasonable attempt at proofreading has been made to minimize errors.Please call with any questions or corrections. Name Value Range Interpretation Code Description Data Evelin rce(s) Supporting Document(s) ID Date Data Source [id number] 06/22/2020 02:11:49 PM EST [facility] Name Value Range Interpretation Code Description Data Evelin rce(s) Supporting Document(s) &PDF [facility] TCWKBi3tVgOJOsOn07/HMKzpQZAqy9PaNHyzMDu1HNspFZJgL2GzrUcjRMPOPZ7BFMsNL9aCCZ6dJV9t pYy [file] ICAgICAgICAgICAgICAgICAgICAgICAgICAgICAgICAgICAgICAgICAgICAgICAgICANCiAgICAgICAg ICAgICAgICAgICAgICAgICAgICAgICAgICAgICAgIC AgICAgICAgICAgICAgICAgICAgICAgICAgICAgICAgICAgICAgICAgICAgICAgICAgICAgICAgICAgIC ANCiAgICAgICAgICAgICAgICAgICAgICAgICAgICAgICAgICAgICAgICAgICAgICAgICAgICAgICAgIC AgICAgICAgICAgICAgICAgICAgICAgICAgICAgICAg ICAgICAgICAgICANCiAgICAgICAgICAgICAgICAgICAgICAgICAgICAgICAgICAgICAgICAgICAgICAg ICAgICAgICAgICAgICAgICAgICAgICAgICAgICAgICAgICAgICAgICAgICAgICAgICAgICANCiAgICAg ICAgICAgICAgICAgICAgICAgICAgICAgICAgICAgIC AgICAgICAgICAgICAgICAgICAgICAgICAgICAgICAgICAgICAgICAgICAgICAgICAgICAgICAgICAgIC AgICANCiAgICAgICAgICAgICAgICAgICAgICAgICAgICAgICAgICAgICAgICAgICAgICAgICAgICAgIC AgICAgICAgICAgICAgICAgICAgICAgICAgICAgICAg ICAgICAgICAgICAgICANCiAgICAgICAgICAgICAgICAgICAgICAgICAgICAgICAgICAgICAgICAgICAg ICAgICAgICAgICAgICAgICAgICAgICAgICAgICAgICAgICAgICAgICAgICAgICAgICAgICAgICANCiAg ICAgICAgICAgICAgICAgICAgICAgICAgICAgICAgIC AgICAgICAgICAgICAgICAgICAgICAgICAgICAgICAgICAgICAgICAgICAgICAgICAgICAgICAgICAgIC AgICAgICANCiAgICAgICAgICAgICAgICAgICAgICAgICAgICAgICAgICAgICAgICAgICAgICAgICAgIC AgICAgICAgICAgICAgICAgICAgICAgICAgICAgICAg ICAgICAgICAgICAgICAgICANCiAgICAgICAgICAgICAgICAgICAgICAgICAgICAgICAgICAgICAgICAg ICAgICAgICAgICAgICAgICAgICAgICAgICAgICAgICAgICAgICAgICAgICAgICAgICAgICAgICAgICAN Cjw/zWCwL0bvmEDmssD9W1mlRw5XKx6OVR8gm2PkII SvRGjqitTbTlhADcUuKCLuQwsBQro5RSnmDO4LgEGbH7HkX8JlFPrfHR4UQYLtOILamFRnLPCkLTSiMw J0GXGmGBshKG4UzTYqKAcuYOAeVCXgSU3PGQHuQ033mhXaMB3NAb9RUiVlST3jjw9MBhWxECVoDbpTFb h7TMksDE5IoNMtE2OclUOtv1cLUeLtV8YCZXVaALRv Ho4QJZRdQhIkGXVfPNgpHG9cUXTvCTPZaLhowzZ4BC2DVY0acrQgWD5WMjVvWm9aHa1DVsSlS1McP7Ic NMLxJVRHSBvlPN4ZATYgIEH5RAIpVnTnGHFTVuToD53pTY1UC7Hbb42dWnX1VUFlTeLvQFccWE29rCmg htXygNQmlOppPE7QAu4+DQplbmRvYmoNCnhyZWYNCj GmJoEZAhYzTYGgDKSqOUBuOhJ8TiCsPc0JOOAgBBKsXUOnEvHiKUSkKSHoDWzeGFHlCFHyTHUuFLNuKU AyXR7SYgUsCJZpGcX5IBatKQUxVTOyhn2OTYYeODZeLDD5XJFiQDBeMICrOFhmYVAiVCGpRdZkQQZiFX ZvJE5WNkOeTXDyZJM8VxWsJKVfOHZwfw9SVHPxXANj Ako2BXKwNFTzJZOcBOtfGLDjSVMhFOdlDZYaTIAtHS9SSaTmTXKtHSPdHgRgSZOnTNEmoa4JIQEiSHZe YQCtYPGkILQuIYNvEZozWSEsIGP0KfAtBWOhJHDuBV2WLzPaNGTqBCQ7UHkfNTBgLHCvix0OBUJvLKJk CNA7ZrJfVYWlXRRsXVwrUHIlNFZfWskqNJDbIXGsWS 7KLjTtJSOfVEM5GBOkAXMgJGJcjz2BOMFrNJMwCDOzGcOvJYWuOUJmUWbyEKVfGXPlUsw1LWHuXBNhTI 8MOpGdELLrCOTkXoXbLQPaHRTsqf7IROAaRBDwIdDxRkLpOQMnOYDkSNmpBSUxUNHrFEg1GJCdATNeSK 2MZqUxUEWzBUu7WbFxXQTaBEPdmx1NOADvTYEuPeQs OCGxPDUiVMNgPMozYXKgWODyGLT3LOMoSUAkOT3JFsPdBTBuCzQ5QSZhUVIgPDZlem3EaPSutRffjr3X UYfNOa6IdDmtNHA8TRztDc5iiFZzHIImJRJLKi3ZmbSeUQCsRNHENEvePEMwWHupEDiwEWSgCYs0Fkwo Gll3SUkoBKz4GWieUcPhCbjcNoY3N6RlOgG0CVL3LX esUmEvWUsvVZCzYKY4GBK3GjRjXNX+VU7bOWk+Tb9Hj7FfxeP3vqTfXVtyZGL8Qw1ZCPITY2VXJw== ID Date Data Source [id number] 08/17/2020 12:13:16 PM EDT [facility] [place] [facility] SPECIMEN DESCRIPTION TISSUE ICD POCKETSPECIAL REQUESTS NONEACID FAST SMEAR NO ACID FAST BACILLI (CONCENTRATED SMEAR)CULTURE RESULTS NO ACID FAST BACILLI ISOLATED AFTER 8 WEEKSREPORT STATUS FINAL 08/17/2020 Name Value Range Interpretation Code Description Data Evelin rce(s) Supporting Document(s) ID Date Data Source [id number] 08/17/2020 12:13:16 PM EDT [facility] [place] [facility] SPECIMEN DESCRIPTION TISSUE LEAD 1 ATRIALSPECIAL REQUESTS NONEACID FAST SMEAR NOT DONECULTURE RESULTS NO ACID FAST BACILLI ISOLATED AFTER 8 WEEKSREPORT STATUS FINAL 08/17/2020 Name Value Range Interpretation Code Description Data Eevlin rce(s) Supporting Document(s) ID Date Data Source [id number] 08/17/2020 12:13:16 PM EDT [facility] [place] [facility] SPECIMEN DESCRIPTION TISSUE LEAD 2SPECIAL REQUESTS NONEACID FAST SMEAR NOT DONECULTURE RESULTS NO ACID FAST BACILLI ISOLATED AFTER 8 WEEKSREPORT STATUS FINAL 08/17/2020 Name Value Range Interpretation Code Description Data Evelin rce(s) Supporting Document(s) ID Date Data Source [id number] 07/27/2020 11:29:41 AM EST [facility] [place] [facility] SPECIMEN DESCRIPTION TISSUE LEAD 2SPECIAL REQUESTS NONECULTURE RESULTS NO FUNGUS ISOLATED AFTER 5 WEEKSREPORT STATUS FINAL 07/27/2020 Name Value Range Interpretation Code Description Data Evelin rce(s) Supporting Document(s) ID Date Data Source [id number] 07/27/2020 11:29:41 AM EST [facility] [place] [facility] SPECIMEN DESCRIPTION TISSUE ICD POCKETSPECIAL REQUESTS NONECULTURE RESULTS NO FUNGUS ISOLATED AFTER 5 WEEKSREPORT STATUS FINAL 07/27/2020 Name Value Range Interpretation Code Description Data Evelin rce(s) Supporting Document(s) ID Date Data Source [id number] 07/27/2020 11:29:41 AM EST [facility] [place] [facility] [place] SPECIMEN DESCRIPTION TISSUE LEAD 1 ATRIALSPECIAL REQUESTS NONECULTURE RESULTS NO FUNGUS ISOLATED AFTER 5 WEEKSREPORT STATUS FINAL 07/27/2020 Name Value Range Interpretation Code Description Data Evelin rce(s) Supporting Document(s) ID Date Data Source [id number] 06/27/2020 11:56:44 AM EST [facility] [place] [facility] [place] SPECIMEN DESCRIPTION CUPOLA REPAIRER 2SPECIAL REQUESTS NONECULTURE RESULTS NO GROWTH 5 DAYSREPORT STATUS FINAL 06/27/2020 Name Value Range Interpretation Code Description Data Evelin rce(s) Supporting Document(s) ID Date Data Source [id number] 06/27/2020 11:56:34 AM EST [facility] [place] [facility] [place] SPECIMEN DESCRIPTION CUPOLA REPAIRER 1 ATRIALSPECIAL REQUESTS NONECULTURE RESULTS NO GROWTH 5 DAYSREPORT STATUS FINAL 06/27/2020 Name Value Range Interpretation Code Description Data Evelin rce(s) Supporting Document(s) ID Date Data Source [id number] 06/27/2020 11:55:34 AM EST [facility] [place] [facility] [place] SPECIMEN DESCRIPTION TISSUE ICD POCKETSPECIAL REQUESTS NONECULTURE RESULTS NO ANAEROBES ISOLATED AFTER 5 DAYSREPORT STATUS FINAL 06/27/2020 Name Value Range Interpretation Code Description Data Evelin rce(s) Supporting Document(s) ID Date Data Source [id number] 06/27/2020 11:55:28 AM EST [facility] [place] mind[facility] HOPPER SPECIMEN DESCRIPTION TISSUE ICD POCKETSPECIAL REQUESTS NONEGRAM STAIN RARE (<1/LPF) WHITE BLOOD CELLS NO BACTERIACULTURE RESULTS NO GROWTH 5 DAYSREPORT STATUS FINAL 06/27/2020 Name Value Range Interpretation Code Description Data Evelin rce(s) Supporting Document(s) ID Date Data Source [id number] 06/22/2020 08:27:07 PM EST [facility] [place] [facility] HOPPER SPECIMEN DESCRIPTION TISSUE LEAD 2SPECIAL REQUESTS NONECULTURE RESULTS TEST(S) PROCESSED UNDER NEW ENTRY PLEASE SEE [facility] [id number]. [id number] STATUS FINAL 06/22/2020 Name Value Range Interpretation Code Description Data Evelin rce(s) Supporting Document(s) ID Date Data Source [id number] 06/22/2020 08:29:12 PM EST [facility] [place] of [place] SPECIMEN DESCRIPTION TISSUE LEAD 1 ATRIALSPECIAL REQUESTS NONECULTURE RESULTS TEST(S) PROCESSED UNDER NEW ENTRY PLEASE SEE [facility] [id number]. [phone].REPORT STATUS FINAL 06/22/2020 Name Value Range Interpretation Code Description Data Evelin rce(s) Supporting Document(s) ID Date Data Source [id number] 06/22/2020 08:28:52 PM EST [facility] [place] [facility] [place] SPECIMEN DESCRIPTION TISSUE LEAD 1 ATRIALSPECIAL REQUESTS NONEGRAM STAIN NOT DONECULTURE RESULTS TEST(S) PROCESSED UNDER NEW ENTRY PLEASE SEE [facility] [id number]. [phone].REPORT STATUS FINAL 06/22/2020 Name Value Range Interpretation Code Description Data Evelin rce(s) Supporting Document(s) ID Date Data Source [id number] 06/22/2020 08:28:12 PM EST [facility] [place] [facility] [place] SPECIMEN DESCRIPTION TISSUE LEAD 2SPECIAL REQUESTS NONEGRAM STAIN NOT DONECULTURE RESULTS TEST(S) PROCESSED UNDER NEW ENTRY PLEASE SEE [facility] [id number]. [id number] STATUS FINAL 06/22/2020 Name Value Range Interpretation Code Description Data Evelin rce(s) Supporting Document(s) ID Date Data Source [id number] 06/22/2020 01:05:49 PM EST [facility] CorporationPATIE NT INFORMATIONPatient MRN Name Date of Age Gend*PT [id number] Jagjit Ibarra 1960 60 years M IPPT Location Admission Date/Time Visit ID Attending Provider --- --- --- --- EPI ID CSN Admitting Prov ider [id number] ---Arterial Line PlacementPatient location during procedure: ORIndications [...] rce(s) Supporting Document(s) ID Date Data Source [id number] 06/22/2020 01:05:28 PM EST [facility] CorporationPATIE NT INFORMATIONPatient MRN Name Date of Age Gend*PT [id number] Jagjit Ibarra 1960 60 years M IPPT Location Admission Date/Time Visit ID Attending Provider --- --- --- --- EPI ID CSN Admitting Prov ider [id number] ---AirwayPatient location during procedure: ORUrgency: electiveDifficult airway: [...] cmPlacement verified by: chest auscultation and + [id number]: CTA and equal breath sounds bilateralGrade view: grade IIa - partial view of glottis Name Value Range Interpretation Code Description Data Evelin rce(s) Supporting Document(s) ID Date Data Source [id number] 06/23/2020 10:08:18 AM EST [facility] [place] [facility] SPEC EXP DATE 06/25/2020ATI ENT ABO/Rh O POSITIVEANTIBODY SCREEN NEGATIVETESTING SITE PERFORMED AT [address] [place] [address] [place] [address]EMRT NUMBER [id number] COMPONENT TYPE LEUKOPOOR RED CELLSUNIT DIVISION 00STATUS OF UNIT REL FROM ALLOCTRANSFUSION STATUS OK TO TRANSFUSECROSSMATCH RESULT COMPATIBLEUNIT NUMBER [id number] COMPONENT TYPE LEUKOPOOR RED CELLSUNIT DIVISION 00STATUS OF UNIT REL FROM ALLOCTRANSFUSION STATUS OK TO TRANSFUSECROSSMATCH RESULT COMPATIBLE Name Value Range Interpretation Code Description Data Evelin rce(s) Supporting Document(s) TYPE AND SCREEN [facility] [place] [facility] [place] ID Date Data Source [id number] 06/22/2020 11:32:57 AM EST [facility] [place] [facility] [place] Name Value Range Interpretation Code Description Data Evelin rce(s) Supporting Document(s) POC NOVA GLU 184 mg/dL (70-99) H [facility] [place] [facility] [place] PERFORMED BY [facility] CLINICAL STAFF ID Date Data Source [id number] 06/28/2020 11:53:01 AM EST [facility] [place] [facility] [place] SPECIMEN DESCRIPTION PERIPHERALSP ECIAL REQUESTS NONECULTURE RESULTS NO GROWTH 6 DAYSREPORT STATUS FINAL 06/28/2020 Name Value Range Interpretation Code Description Data Evelin rce(s) Supporting Document(s) ID Date Data Source [id number] 06/28/2020 11:53:01 AM EST [facility] [place] [facility] [place] SPECIMEN DESCRIPTION PERIPHERALSP ECIAL REQUESTS NONECULTURE RESULTS NO GROWTH 6 DAYSREPORT STATUS FINAL 06/28/2020 Name Value Range Interpretation Code Description Data Evelin rce(s) Supporting Document(s) ID Date Data Source [id number] 06/22/2020 07:33:56 AM EST [facility] [place] [facility] [place] Name Value Range Interpretation Code Description Data Evelin rce(s) Supporting Document(s) POC NOVA GLU 183 mg/dL (70-99) H [facility] [place] [facility] [place] PERFORMED BY [facility] CLINICAL STAFF ID Date Data Source [id number] 06/22/2020 07:27:58 AM EST [facility] CorporationPATIE NT INFORMATIONPatient MRN Name Date of Age Gend*PT [id number] Jagjit Ibarra 1960 60 years M IPPT Location Admission Date/Time Visit ID Attending ProviderCV-04 06/21/20 Sanchez4 --- Kathryn Adler MD([id number]) EPI ID CSN Admitting Provider [id number] Maury Treviño MD([id number]) Attestation signed by Dillon Fuentes MD at [...] parts of this document, were dictated using [employer]. A reasonable attempt at proofreading has been made to minimizeerrors. Please call with any questions or corrections.Signature: Dillon Dietz MD, [facility], [facility] CENTERCardiac Electrophysiology and Arrhythmia ServiceDate: June 22, 2020Time: 7:26 AMThis document or parts of this document, were dictated using [employer]. A reasonable attempt at proofreading has been [...] mitral valveregurgitations.- Anxiety and depressionPatient [facility] of [facility]-sided chest painaround [...] wasdepleted since 2018. Patient underwent DANIELE at [facility], see resultbelow-There is a small 0.4 x 0.2 vegetation identified on the ICD lead- Normal tricuspid valve- Normal aortic valve- Normal mitral valve- Intact LV functionImpression:ICD lead infectionRecommendation:Explant systemPatient denies fever, chills, shortness of breath, chest pain, chest pressure orpalpitations. Patient is transferred to [facility] for ICD system extraction. Last [...] file Gets together: Not on file Attends restorationism service: Not on file Active member of [...] rce(s) Supporting Document(s) ID Date Data Source [id number] 06/22/2020 07:18:20 AM EST [facility] [place] [facility] [place] Name Value Range Interpretation Code Description Data [facility] rce(s) Supporting Document(s) SODIUM 141 mmol/L (136-145) [facility] [place] [facility] [place] POTASSIUM 3.9 mmol/L (3.6-5.2) [facility] [place] [facility] [place] CHLORIDE 105 mmol/L (100-108) [facility] [place] [facility] [place] CO2 29 mmol/L (22-31) [facility] [place] [facility] [place] ANION GAP 7 mmol/L (7-16) [facility] [place] [facility] [place] UREA NITROGEN 17 mg/dL (7-24) [facility] [place] [facility] [place] CREATININE 0.96 mg/dL (0.80-1.30) [facility] [place] [facility] [place] BUN/CREAT RATIO 17.7 RATIO (10.0-20.0) [facility] [place] GLUCOSE 179 mg/dL (70-99) H [facility] [place] [facility] [place] CALCIUM 9.3 mg/dL (8.4-10.2) [facility] [place] [facility] [place] GFR >60 ml/min/1.73m2 (>59) [facility] [place] [facility] [place] GFR ( AMER) >60 ml/min/1.73m2 (>59) [facility] [place] [facility] [place] GFR INTERPRETATION [facility] [place] --NORMAL KIDNEY FUNCTION OR MILD DISEASE - GFR >OR= 60CHRONIC KIDNEY DISEASE - GFR 15 - 59RENAL FAILURE - GFR <15 Est. GFR calculation based on the MDRDstudy equation, which assumes a steadystate for creatinine. Est. GFR should notbe used for medication dosing. ID Date Data Source [id number] 06/22/2020 06:25:42 AM EST [facility] [place] [facility] [place] Name Value Range Interpretation Code Description Data Evelin rce(s) Supporting Document(s) WBC 5.8 10*3/uL (4.1-11.0) [facility] [place] [facility] [place] RBC 3.71 10*6/uL (4.60-6.10) L [facility] [place] [facility] [place] HGB 11.1 g/dL (13.5-18.0) L [facility] [place] [facility] [place] HCT 31.5 % (41.0-53.0) L [facility] [place] [facility] [place] MCV 84.9 fL (80.0-95.0) [facility] [place] [facility] [place] MCH 29.8 pg (27.0-32.0) [facility] [place] [facility] [place] MCHC 35.1 g/dL (32.0-36.0) [facility] [place] [facility] [place] RDW 13.3 % (10.5-14.5) [facility] [place] [facility] [place] PLT 237 10*3/uL (150-450) [facility] [place] [facility] [place] MPV 7.6 fL (7.1-10.7) [facility] [place] [facility] [place] ID Date Data Source [id number] 06/21/2020 09:25:57 PM EST [facility] [place] [facility] [place] Name Value Range Interpretation Code Description Data Evelin rce(s) Supporting Document(s) APTT 26.9 s (22.0-34.3) [facility] [place] [facility] [place] ID Date Data Source [id number] 06/21/2020 09:25:57 PM EST [facility] [place] [facility] [place] Name Value Range Interpretation Code Description Data Evelin rce(s) Supporting Document(s) PT 12.5 s (9.2-11.9) H [facility] [place] [facility] HOPPER INR 1.20 [facility] [place] [facility] [place] SUGGESTED THERAPEUTIC RANGES USING INR F ORSTABILIZED ANTICOAGULATED PATIENTS:STANDARD DOSE THERAPY INR 2.0-3.0 DVT, PE, PREVENT DVT OR EMBOLISMHIGH DOSE THERAPY INR 2.5-3.5 PREVENT EMBOLISM FROM MECHANICAL HEART VALVE ID Date Data Source [id number] 06/21/2020 06:23:37 PM EST [facility] [place] [facility] HOPPER Name Value Range Interpretation Code Description Data Evelin rce(s) Supporting Document(s) POC NOVA GLU 256 mg/dL (70-99) H [facility] [place] [facility] [place] PERFORMED BY [facility] CLINICAL STAFF ID Date Data Source [id number] 06/21/2020 06:03:32 PM EST [facility] CorporationPATIE NT INFORMATIONPatient MRN Name Date of Age Gend*PT [id number] Fred Jagjit 1960 60 years M IPPT Location Admission Date/Time Visit ID Attending ProviderCV-06/21/20 1444 --- Park Rocha MD([id number]) EPI ID CSN Admitting Provider [id number] Maury Treviño MD([id number])Inpatient History & PhysicalLewis Rockaway BeachMRN:[id number] and Plan:Active Problems: Coronary artery disease due to lipid rich plaque Infected defibrillator Paroxysmal atrial fibrillation1. 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 Hewas transferred to [facility], he underwent for DANIELE and found tohave [...] rce(s) Supporting Document(s) ID Date Data Source [id number] 06/21/2020 07:43:25 PM EST [facility] [place] [facility] Name Value Range Interpretation Code Description Data Evelin rce(s) Supporting Document(s) HEMOGLOBIN A1C @ 9.0 % (4.0-6.0) H Lab [facility] Performed using Siemens [employer] [place] y.Care must be taken when interpreting RzB0vumvcsei in patients with a hemoglobin variantor decreased erythrocyte lifespan. Values 5.7 - 6.4% suggest prediabetes.Values >=6.5% are diagnostic for diabetes.REFERENCE: DIABETES CARE 2018: 41(S13-S27).PERFORMED AT [address] [place] [address] EST AVERAGE GLUCOSE 212 mg/dL Lab [facility] ID Date Data Source [id number] 06/21/2020 03:49:[address] [facility] Name Value Range Interpretation Code Description Data Evelin rce(s) Supporting Document(s) Discharge Summary [facility] ZXNEQb2tSyLSVlEg66/XKAefEEWdf4GrWEvkXOg6DNdlHEHfH3JiERB3uM0uKSI5EOwFQnFpEtEuBHI0 [facility] [file] AgICAgICAgICAgICAgICAgICAgICAgICAgICAgICAg IBDcYPBfCAInLJCbOOQjCXFfMGLlUJSdKKApJSWuYHRxRMDfAMRsLKIqJUTkDKEuWVCjVRMzJYAaGU9T ICAgICAgICAgICAgICAgICAgICAgICAgICAgICAgICAgICAgICAgICAgICAgICAgICAgICAgICAgICAg ICAgICAgICAgICAgICAgICAgICAgICAgICAgICAgIC NxEAZiUPZxGI9PDJTqTLHxQIPnPJGeRVUhUXLgBBScWYYwGDAkPZLvJYPvDPAtVHScQRJiABDvCNJpEC IdELWmHLIpMMUqXRZdAADgCINgCLJzERGtJGDnQVXwQPZqZTHoGFFfUGNuEXFbPLLySU9WITGgAHWrQN AgICAgICAgICAgICAgICAgICAgICAgICAgICAgICAg ICAgICAgICAgICAgICAgICAgICAgICAgICAgICAgICAgICAgICAgICAgICAgICAgICAgICAgICAgICAg HP5TGLWgKRCrBGZhWJJxXITjFPKhDYWkNFIzKRCsHAOjPUSdZEYbZWQsRQSmEQOzJWCrOCBwRSGkRCOs ICAgICAgICAgICAgICAgICAgICAgICAgICAgICAgIC WcDVXgCFZyBFZpYP5GJRSrLOOoCJYpBNRnQBJvZJKuPESvLEBcIVLkJJBgRTOuMQDsHYTsOQGdDBRoUE IpSBLcMPUyFFIzWNGmBVSuUWVuBLTkKVJqMXUqJPNoTQUrSAIeLUCmLMYuBXOjLEThSCMvGW8SJGThYP AgICAgICAgICAgICAgICAgICAgICAgICAgICAgICAg ICAgICAgICAgICAgICAgICAgICAgICAgICAgICAgICAgICAgICAgICAgICAgICAgICAgICAgICAgICAg IBNrFP2AZKMcHYCxDQMgFLRkFWXaZOGyLDKqMOLeKGTuZZKlVHZwOFPwMYOeCKVrTKFxQZRgXWAcOSRt ICAgICAgICAgICAgICAgICAgICAgICAgICAgICAgIC DsBFNbEPEnSECmZDWbOQ0GAAXpXYFaAUCuWIKsQWYeQVIxOZUtFPBsWEDsLLVpRCQmWXOgNQEiZEFwLT GjHCPuCGRmKKIfTLIjUFZbBQYuQIIuJKFwOIDnKWWvVPElWSAqRWBhZBLyIVUwBGEiJPBpUVXxVZ5RLA AgICAgICAgICAgICAgICAgICAgICAgICAgICAgICAg ICAgICAgICAgICAgICAgICAgICAgICAgICAgICAgICAgICAgICAgICAgICAgICAgICAgICAgICAgICAg SVEvKTCzQH8KXS04gALzc5U3ALItPN7xqqc/Zt8JOTuglqBdrFFwKA2UHaAjGX7vsi7PKcIbVZ0nmj4G XZpIVdLxU3I4nABvSDToJZHBLrCrE59fASduLg47EM naFWMdHfHjRHw9Fe8THoWfZ1idATBwTbX3HQCfByS5GFIrAcV5QVHtQaAjHMUfBPTyUWHwVJRTRMZ6YN GpOwPgGfJpLMWbJWbaUMTHCX8TKrNrY6OaoS50OHsBMr3+XGwixxSsTgfBZtWxYCRfj8XnEFw3RQ8CFO OgBfuls4BfHECbDLCDXKfjII6CXLY7OKR2WAPpCp3V HAIeX138epPjBL6WYm3RSfNnWZ3yhn0ZJCJjDMFyIiwDBwi4PBzeLF9OmAHdQYoDdDYecYJuO8IgZ5Qr pHEmxHHsoIMWmOIfHBWuS4Xjd8OkyBnxCs7XLRJ3FZIxJnotGeHiHPVuDia1LNJMONyPFqIdA9Gbz7By CaS5BWAaWpWcEQfaGPJxXxE0JQ39nLyjUV6TKKTnLX RyKE44VTXoGGVbEn0YAz9TOnVaWQ6kgp3ERSNvAIToWlsSUdc4FKauTA5ZwDIwG0GakMZfy9zOYrXnB0 AZYXKzHJSvBq5KAUIzThKgJXShFLnzAC2fEEEvBJBNnAqqmqH1IX3RKC0kgvIqNW6LOjYnJu5qLc7EBp EcN4MrC0LnXLIxLTRVYLbyPT6BJPwzTQ4tYC9Pn0BK kFNgsL1dfm1KQSCeNCPvKjaosp4GNmcqA5H2yYjwTNUaMNOaOPKOOQydVM9CSDRxOHJ1ABP6DrKtGTMN KmRpU03uLD8LS1Png62yCmM9KYFeYpNpOPmpVC51mYwsfyUibCJeiEqoZV1NHz5+DQplbmRvYmoNCnhy YEGODrIkLBCMXtMsDAGaPGXhKCVcAyZ2YwQnIs4NLH YyJXOnEJKtYvPhUSPcNBCyISenXHXsWCV4ZiN7VVRmADPmPN6JRuSiHOCmPampWsozMNGbKSOsni8EOU ZwZMRzXKW9TxTcXLBsTQQsCGwzQRWmYRCdHaR4ZQIkLKQcSM0DPlKmHKUcXXV6KZTqQRMgRCUfoj5ZDG GbXKJhVpCaHvCrQJMiZIQvZGsrDWWiWWT4NyM2BQLl YDQnHI0GSbGxSOIiROe0BwgwRCNnMZKrna8SEKJsNFPrYQOrDtRwNUVeRABnWQllBHWpXWNvJJB3OGKf ITJjOH1YLiFfYXUdBOBiSgFzNEFnOCFmjf9UVAUkSEUbNnJxEKXvUBTbDUEaCBtiRHErIJK8EqU5GKUf TAOfLW6PEiTyGMCdXyD7VssnOCRfDHPuim8LWWZbOZ MuEAs9SUJwXTTzLTJpTUxhMVKeVAW3IreaSIQkJCUtJT0IKrFpYCJiEcG1IiwjMEFsEAZrlm8LBUPdBH VsBHO1UEGiEKIeLYFpZFolPUMcRKA7MeqcXAZmMGJuIH6RGiOnKJHaRdF7DETkKXRkSPWglb5ZEOUtDF GeStr5ZwPgQEItGGNlMJbyONSlZQG9UZDaHZRtFIZp JN2CXmQcMOOeCplnSNVuIYDeDKUycv2JYOLrKVKoXWP7FsBfAPTpKKNbQCmkVZAnXFS1YXkmPONbIWVe ZT8XRiPsGIZdRrd7UasyJSJfXATeeq5EPUIoJIQcIKHsYHMoPPQhWLMiLZiuSAFcHFC7JBF6NXBpRTBh ST9YApRbYEYyUfZ6FqKhVDGkUUHzwi4PIKKcURYkAZ d6TQOaUMRcHZGcJQxhYNJrRADrGHpqPKSsJSCpEA8ZGhIfYTXpOpBmGbodIWEkNKVpmo0YKEJbWJTdAk JmMETlGQBbMHRqHQanQRDxNOXiKQV4BCYoUKPfCU5BMeIsIXZaDeD4PlJlTHQdLIElpf1QJHPaJUCdDp J4IsAlXYVhXZRsMBeqADDeSJMlUOy1UTSiBDXsRG6U SzBlHDWcJiM8IXJaUJNmCFTzyk6SVLWdMUIiSPY5KGVmIHJiRQTgPYomKNYqISU5QtQrFDMwTYLaQU5T UaIiQXQvRaY5SveaGPGiKSKlwg4SGXCgUCVkSaZsWlJoMUZrLBWiFAgwGWLbROB5SwqrPCXzHLWvCY7B ZcYzPSAmByo1QUDsKNVnDOCytj0IcEBdxTxkxs4QPY sNRa3IpNvqQZA1VZakJl5zlGH8QECmFEKDJn1UvzAfJGNeGWEUJGlzTOLsGRk2JHHmDsCpJIUcFCG0Wf FgNONwKNUuEPGsRMIoNgMjBpB4OwvvNpRmTNX5DuYuAXi7V4OyQhDyXfS9TDFyEOIlBHY+KK6tXSb+Pg 8Ut4VqujQ8xwHiRVxtYfK8SB8KKAUXY4PQMh== ID Date Data Source [id number] 06/21/2020 03:45:00 PM EST [facility] Name Value Range Interpretation Code Description Data Evelin rce(s) Supporting Document(s) SARS coronavirus 2 RNA [Presence] in Res piratory specimen by PARMJIT with probe detection NOT DETECTED [facility] This lab was reported by [facility] [place] [facility]. ID Date Data Source [id number] 06/21/2020 08:29:47 PM EST Lab [facility] Name Value Range Interpretation Code Description Data Evelin rce(s) Supporting Document(s) SPECIMEN [facility]CRIPTION [facility] [place] [facility] THIS ASSAY AMPLIFIES AND DETECTSTHE TARG ET RNA USING REAL-TIME PCR.TESTING PERFORMED ON FIELDS [place] GENEXPERTNEGATIVE 2019_NCOV RT-PCR RESULTS DONOT PRECLUDE 2019_NCOV INFECTION ANDSHOULD NOT BE USED THE SOLE BASISFOR PATIENT MANAGEMENT DECISIONS. COMMENT [facility] [place] [facility] [place] LABORATORY [employer] APPROVED B Y THE [place]. THE [place] FOODAND DRUG ADMINISTRATION HAS NOT APPROVEDTHIS TEST. NEGATIVE RESULTS DO NOT TIPXBJXPGAPX-RFH-1 INFECTION AND SHOULD NOT BEUSED THE SOLE BASIS FOR CLINICALDIAGNOSIS OR PATIENT MANAGEMENT DECISIONS. FIRST TEST [facility] [place] [facility] [place] [employer] [facility] [place] SYMPTOMATIC [facility] [place] [facility] [place] DATE OF SYMPT ONSET [facility] [place] HOSPITALIZED [facility] [place] [facility] ICU [facility] [place] [facility] [place] CONGREGATE CARE SET [facility] [place] [facility] [place] [facility] [place] ID Date Data Source [id number] 06/21/2020 02:04:[address] [facility] Name Value Range Interpretation Code Description Data Evelin rce(s) Supporting Document(s) Nursing Note [facility] FBTCTj1rUoAREnAt41/HDXwyQWQru6NeMKvkMPe9JCilKYNsY7RyFLF8oQ1tJKB6VMdHCxIwMqGiAXB3 lbm XiTljOVbNpANZoVazDRuKiYTxtKmnvaNFjBM3CqMU6GUZbI31qLKIvGYBhQ3ZxTQf7DS3+LXeeOSS4mj JkfL3CEGEZEYDU5vJRpo+0/0NMB5PVrmVaucCNFUJGnlZlqZx8PEjVHGzYlg8i86tJGVL4NR8MLQEvki Pvvs/+pBa1AcI+7qCnAsYYlP/rVxUKuJzBxw/QuHli 2rv3MvwQSZvexqJLsv7/LENVDCBV6toqdLIOK9lr5HZWx08sMveCA7QNWb8bxbCLao3K7UIF/f2SEd8S qpakYKfHcwK21AdNwjShdl9OomK4ejXAsBlvYdVSvOGjyuoVWlJemMcPYXQcQov3hSZtK3I5t830mnAK WDEmxUAXOPLBmCy0+M1iDTCeYk7EUmshxMJHG6PDHO tMs3852yzHg2hcjhQG5DjXhZnFoDXOXyqMtKQ1q2qmu7lqn70TBR2GMslaATX0CyFeH3iEdnhTkREyqY 83KvDBGZkjhgDr0F8WWmDgZXkBr9b7LD78RERkLeOmeBevfZGjASeQR/[place]+TROYzhIZ+fpNoyOXndtvt [file] 8N8hfu0Q+j1HxfUr8RFn12UTIGEcFz12rp84J5+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 Name Value Range Interpretation Code Description Data Evelin rce(s) Supporting Document(s) Progress Notes [facility] WJTLMg1nPcDICaAe14/ECFnkZJKik4ItPYhzHPl1PAlaXEXyH2OjGBO7tI4iXQP4SUeMBaTfZmMnRUL1 lbm [file] 0RAcH7CBZ8pAVcAh0BNiR5XMYEYxChNO9YGXa= ID Date Data Source [id number] 06/21/2020 07:36:[address] [facility] Name Value Range Interpretation Code Description Data Evelin rce(s) Supporting Document(s) Glucose, Fingerstick 183 mg/dl 70-[address] [facility] The above 1 analytes were performed by [facility] [id number] [place] [address],[facility]#: [id number],[place] [address] ID Date Data Source [id number] 06/21/2020 05:58:[address] [facility] Name Value Range Interpretation Code Description Data Evelin rce(s) Supporting Document(s) WBC 7.08 x1000/ul 4.80-10.00 Normal (applies to non-numeric re sults) [facility] RBC 3.93 x1Mil/ul 4.70-6.10 Below low normal [facility] Hemoglobin 11.4 g/dl 14.0-18.0 Below low normal [facility] Hematocrit 34.5 % 42.0-52.0 Below low normal [facility] MCV 87.8 fL 80.0-94.0 Normal (applies to non-numeric resul ts) [facility] MCH 29.0 pg 27.0-31.0 Normal (applies to non-numeric resul ts) [facility] MCHC 33.0 g/dl 32.2-37.0 Normal (applies to non-numeric resul ts) [facility] RDW 12.2 % 11.5-14.5 Normal (applies to non-numeric resul ts) [facility] Platelet Count 285 x1000/ul 130-400 Normal (applies to non-numeric results) [facility] MPV 9.6 fL 9.4-12.4 Normal (applies to non-numeric resul ts) [facility] Nucleated RBCs 0.00 % 0.00-0.20 Normal (applies to non-numeric r esults) [facility] Abs. Nucleated RBCs 0.00 x1000/ul 0.00-0.02 Normal (appl ies to non-numeric results) [facility] The above 12 analytes were performed by [facility] [id number] [place] [address], ,[place] [address] ID Date Data Source [id number] 06/21/2020 05:49:[address] [facility] Name Value Range Interpretation Code Description Data Evelin rce(s) Supporting Document(s) Magnesium 2.0 mg/dl 1.6-2.6 Normal (applies to non-numeric resul ts) [facility] The above 1 analytes [facility] [id number] [place] [address], ,[place] [address] ID Date Data Source [id number] 06/21/2020 05:49:[address] [facility] Name Value Range Interpretation Code Description Data Evelin rce(s) Supporting Document(s) AST 26 IU/L 15-37 Normal (applies to non-numeric resul ts) [facility] Sulfasalazine and sulfapyridine have the potential to falsely depressAspartate Aminotransferase results. Baseline values before medication administration are recommended. ALT 28 IU/L 16-61 Normal (applies to non-numeric resul ts) [facility] Sulfasalazine and sulfapyridine have the potential to falsely depressAlanine Aminotransferase results. Baseline values before medication administration are recommended. Alkaline Phosphatase 108 mIU/ml 50-136 Normal (applies to n on-numeric results) [facility] Total Bilirubin 0.90 mg/dl 0.20-1.00 Normal (applies to non-numeric results) [facility] Blood Urea Nitrogen 18 mg/dl 7-18 Normal (applies to non-nume kamilah results) [facility] Creatinine 0.92 mg/dl 0.67-1.17 Normal (applies to non-numeric resul ts) [facility] N-Acetylcysteine (NAC) and Metamizole bradley ve the potential to falselydepress Creatinine results. Baseline values before medication adminstration are recommended. Patients undergoing treatment with phenindione will have falselydepressed results. Patients on phenindione therapy should be tested with an alternativeCREA method.Toxic levels of acetaminophen may lead to falsely depressed results forpatient samples. Glomerular Filtration Rate 84.00 mL/min/1.73m2 [facility] GFR Reference Ranges:Normal Function or Mild [...] of Health and the [employer]. The Gordon method used in calculating this result is traceable to IDMN standards. Glucose 175 mg/dl 70-110 Above high normal [facility] Sulfasalazine has the potential to false ly depress Glucose results. Sulfapyridine has the potential to falsely elevate Glucose results. Baseline values before medication administration are recommended. Calcium 9.6 mg/dl 8.5-10.1 Normal (applies to non-numeric resul ts) [facility] Total Protein 7.7 g/dl 6.4-8.2 Normal (applies to non-numeric re sults) [facility] Albumin 3.0 g/dl 3.4-5.[address] [facility] Sodium 138 mEq/L 136-145 Normal (applies to non-numeric resul ts) [facility] Potassium 3.9 mEq/L 3.5-5.1 Normal (applies to non-numeric resul ts) [facility] Chloride 104.0 mEq/L 98.0-107.0 Normal (applies to non-numeric resu lts) [facility] Carbon Dioxide 29.2 mMol/L 21.0-32.0 Normal (applies to non-numeric results) [facility] Anion Gap 8.7 7.0-15.0 Normal (applies to non-numeric resul ts) [facility] The above 16 analytes were performed by [facility] [id number] [place] [address], ,[place] [address] ID Date Data Source [id number] 06/20/2020 07:57:[address] [facility] Name Value Range Interpretation Code Description Data Evelin rce(s) Supporting Document(s) Glucose, Fingerstick 226 mg/dl 70-[address] [facility] The above 1 analytes were performed by [facility] [id number] [place] [address], ,[place] [address] ID Date Data Source [id number] 06/20/2020 05:16:00 PM [facility] Name Value Range Interpretation Code Description Data Evelin rce(s) Supporting Document(s) Glucose, Fingerstick 282 mg/dl 70-[address] [facility] The above 1 analytes were [facility] [id number] [place] [address], ,[place] [address] ID Date Data Source [id number] 06/20/2020 04:52:23 PM [facility] Name Value Range Interpretation Code Description Data Evelin rce(s) Supporting Document(s) Progress Notes [facility] NNGYLr3dJuXWGjBn21/AYFsaDNKgh1UkEDwwSKo3YElpJYNkT7GsMMG0eR9rOPM2HViXRkMmRgBfWUB9 lbm [file] [id number] ID Date Data Source [id number] 06/20/2020 02:30:[address] [facility] Name Value Range Interpretation Code Description Data Evelin rce(s) Supporting Document(s) Glucose, Fingerstick 282 mg/dl 70-[address] [facility] The above 1 analytes were performed by [facility] [id number] [place] [address],[facility]#: [id number],[place] [address] ID Date Data Source [id number] 06/20/2020 11:14:[address] [facility] Name Value Range Interpretation Code Description Data Evelin rce(s) Supporting Document(s) Progress Notes [facility] WWCKRe4pSmFCDmYq21/SPWwuXOMvt2RvCFrtQZh1RDblHZFcX2NdWEY2aV4oUOA0XUmZRuFfIyEvUTG9 lbm [file] o= ID Date Data Source [id number] 06/20/2020 07:32:[address] [facility] Name Value Range Interpretation Code Description Data Evelin rce(s) Supporting Document(s) Glucose, Fingerstick 219 mg/dl 70-[address] [facility] The above 1 analytes were performed by [facility] [id number] [place] [id number] [address] ID Date Data Source [id number] 06/20/2020 05:25:[address] [facility] Name Value Range Interpretation Code Description Data Evelin rce(s) Supporting Document(s) Blood Urea Nitrogen 20 mg/dl 7-[address] [facility] Creatinine 0.90 mg/dl 0.67-1.17 Normal (applies to non-numeric resul ts) [facility] N-Acetylcysteine (NAC) and Metamizole bradley ve the potential to falselydepress Creatinine results. Baseline values before medication adminstration are recommended. Patients undergoing treatment with phenindione will have falselydepressed results. Patients on phenindione therapy should be tested with an alternativeCREA method.Toxic levels of acetaminophen may lead to falsely depressed results forpatient samples. Glomerular Filtration Rate 86.00 mL/min/1.73m2 [facility] GFR Reference Ranges:Normal Function or Mild [...] of Health and the National KidneyFoundation. The Gordon method used in calculating this result is traceable to IDMS standards. Glucose 210 mg/dl 70-110 Above high normal [facility] Sulfasalazine has the potential to false ly depress Glucose results. Sulfapyridine has the potential to falsely elevate Glucose results. Baseline values before medication administration are recommended. Calcium 9.2 mg/dl 8.5-10.1 Normal (applies to non-numeric resul ts) [facility] Sodium 136 mEq/L 136-145 Normal (applies to non-numeric resul ts) [facility] Potassium 4.1 mEq/L 3.5-5.1 Normal (applies to non-numeric resul ts) [facility] Chloride 102.0 mEq/L 98.0-107.0 Normal (applies to non-numeric resu lts) [facility] Carbon Dioxide 29.9 mMol/L 21.0-32.0 Normal (applies to non-numeric results) [facility] Anion Gap 8.2 7.0-15.0 Normal (applies to non-numeric resul ts) [facility] The above 10 analytes were performed by [facility] [id number] [place] [address],[facility] [id number],[place] [address] ID Date Data Source [id number] 06/20/2020 05:06:[address] [facility] Name Value Range Interpretation Code Description Data Evelin rce(s) Supporting Document(s) WBC 7.23 x1000/ul 4.80-10.00 Normal (applies to non-numeric re sults) [facility] RBC 4.04 x1Mil/ul 4.70-6.10 Below low normal [facility] Hemoglobin 11.8 g/dl 14.0-18.0 Below low normal [facility] Hematocrit 35.4 % 42.0-52.0 Below low normal [facility] MCV 87.6 fL 80.0-94.0 Normal (applies to non-numeric resul ts) [facility] MCH 29.2 pg 27.0-31.0 Normal (applies to non-numeric resul ts) [facility] MCHC 33.3 g/dl 32.2-37.0 Normal (applies to non-numeric resul ts) [facility] RDW 12.3 % 11.5-14.5 Normal (applies to non-numeric resul ts) [facility] Platelet Count 276 x1000/ul 130-400 Normal (applies to non-numeric results) [facility] MPV 9.1 fL 9.4-12.[address] [facility] Neutrophils 61.9 % 40.0-74.0 Normal (applies to non-numeric resu lts) [facility] Lymphocytes 28.2 % 19.0-48.0 Normal (applies to non-numeric resu lts) [facility] Monocytes 7.3 % 3.4-9.0 Normal (applies to non-numeric resul ts) [facility] Eosinophils 1.2 % 0.0-7.0 Normal (applies to non-numeric resu lts) [facility] Basophils 0.7 % 0.0-2.0 Normal (applies to non-numeric resul ts) [facility] Immature Granulocytes 0.7 % 0.0-0.[address] [facility] Nucleated RBCs 0.00 % 0.00-0.20 Normal (applies to non-numeric r esults) [facility] Abs. Neutrophils 4.47 x1000/ul 1.92-8.31 Normal (applies to non-numeric results) [facility] Abs. Lymphocyte 2.04 x1000/ul 1.20-3.70 Normal (applies to non-n umeric results) [facility] Abs. Monocytes 0.53 x1000/ul 0.14-0.97 Normal (applies to non-nu meric results) [facility] Abs. Eosinophils 0.09 x1000/ul 0.00-0.76 Normal (applie s to non-numeric results) [facility] Abs. Basophils 0.05 x1000/ul 0.00-0.22 Normal (applies to non-n umeric results) [facility] Abs. Immature Gran. 0.05 x1000/ul 0.00-0.[address] [facility] Abs. Nucleated RBCs 0.00 x1000/ul 0.00-0.02 Normal (appl ies to non-numeric results) [facility] The above 24 analytes were performed by [facility] [id number] [facility], ,[place] [address] ID Date Data Source [id number] 06/19/2020 09:12:[address] [facility] Name Value Range Interpretation Code Description Data Evelin rce(s) Supporting Document(s) Glucose, Fingerstick 250 mg/dl 70-[address] [facility] The above 1 analytes were performed by [facility] [id number] [facility], ,[place] [address] ID Date Data Source [id number] 06/19/2020 04:44:[address] [facility] Name Value Range Interpretation Code Description Data Evelin rce(s) Supporting Document(s) Progress Notes [facility] ZPZYFx7aKaOTWbZc28/GZSshCRMiq3OnKOgvMCm9TJluNUNwS6ItURW7tP5oCJJ5GOoRFyMlRxVoDFL7 m [file] SLSTOP/JCIYBaPFGUFKRMoPzTXbC4/R2I14kSDdxT76c4Ukxdl07NFMZd20tqVFPEiZZEQXYK2hdoimP va8FvosNlDFvCWCmE6/0UlJ9UkyniLq3KSixU68BEqSlH9hR6Iy5UmfjVZn2AtelIAySHa8EPe+w0eM8 0Ksz0u9dzmuIPw75ELkEIAufGmOCjnZ6BjAfkrlweq tHUg+eouz5Sxt1Fmtor0fnUG5dzRNmMEcLucAJqpAfum3m43LUxyP4R7CY0lEDvtMqamtjPi8NxEVKGC UAHmSVNRJXa87OCv2wtT0Q+aWOnzbgO9k/QIG53a4Z2xXNO71vDei+xY2cuUJ2r4LUMXJK9M7+ZTbL8z Shd+W8uFEHKSa+7gzPkvAA7e5rBi9rV+jrZlZ77Qss taIhtLvRk8lVz8GZ2Wkll3hu8/1hNJj7oYh4B9Si+0cUCs+WzT8bXA25ZGcqMN6q5pLDXyq0Id0LjAWS DWG+zAIVwTSSQJxxRu7ksXfNzpRCbesaE8GtQagsRSJx5mIfdiYwoESBDnoQ9h6oWcS/MetGMjxUeeb8 HB72+3KNvGWth+6WwPlhC9b0n+Ues7iBMt6tkHlE6P cj51mGYOfZOBD2rklBZWeJDcHLpHB40SW+5U7F8i5vhrPTvCeA3F6VnKBLISZA/Ns/8z2TkKk01yuJ2h hDgy56eQhSTzEMJH5Zop4s38YCvkWcYZE1C9L8ejDNwzkQbPDNtjexVdblGpJmqSiRYvZIHVlkRNgmOh hernández/DGiYAeW9lm1mySqwcAIUF1gQ/FC0qyZJxmiwo2t [file] UWS6DACbCnQnAYlnPeUdCT3vLUSYWa4+PPyaeQLxpYahZCUIYqCsPQp5AGtlXIRUUo4I ID Date Data Source [id number] 06/19/2020 04:05:[address] [facility] Name Value Range Interpretation Code Description Data Evelin rce(s) Supporting Document(s) Glucose, Fingerstick 247 mg/dl 70-[address] [facility] The above 1 analytes were performed by [facility] [address],[facility]#: [id number],[place] [address] ID Date Data Source [id number] 06/19/2020 03:24:[address] [facility] Name Value Range Interpretation Code Description Data Evelin rce(s) Supporting Document(s) Progress Notes [facility] LGYYJn1nWuHBCkMv60/GBApyXSVnp8XjNAtkEYv3PXycZSXwO3LwWGH5gW7hOAV9RJuQErXhWhQtPVJ2 lbm [file] AgICAgICAgICAgICAgICAgICAgICAgICAgICAgICAgICAgICAgICAgICAgICAgICAgICAgICAgICAgIC AgICAgICAgICAgICAgICAgICAgICAgDQogICAgICAgICAgICAgICAgICAgICAgICAgICAgICAgICAgIC AgICAgICAgICAgICAgICAgICAgICAgICAgICAgICAg ICAgICAgICAgICAgICAgICAgICAgICAgICAgICAgICAgDQogICAgICAgICAgICAgICAgICAgICAgICAg ICAgICAgICAgICAgICAgICAgICAgICAgICAgICAgICAgICAgICAgICAgICAgICAgICAgICAgICAgICAg ICAgICAgICAgICAgICAgDQogICAgICAgICAgICAgIC AgICAgICAgICAgICAgICAgICAgICAgICAgICAgICAgICAgICAgICAgICAgICAgICAgICAgICAgICAgIC AgICAgICAgICAgICAgICAgICAgICAgICAgDQogICAgICAgICAgICAgICAgICAgICAgICAgICAgICAgIC AgICAgICAgICAgICAgICAgICAgICAgICAgICAgICAg ICAgICAgICAgICAgICAgICAgICAgICAgICAgICAgICAgICAgDQogICAgICAgICAgICAgICAgICAgICAg ICAgICAgICAgICAgICAgICAgICAgICAgICAgICAgICAgICAgICAgICAgICAgICAgICAgICAgICAgICAg ICAgICAgICAgICAgICAgICAgDQogICAgICAgICAgIC AgICAgICAgICAgICAgICAgICAgICAgICAgICAgICAgICAgICAgICAgICAgICAgICAgICAgICAgICAgIC AgICAgICAgICAgICAgICAgICAgICAgICAgICAgDQogICAgICAgICAgICAgICAgICAgICAgICAgICAgIC AgICAgICAgICAgICAgICAgICAgICAgICAgICAgICAg ICAgICAgICAgICAgICAgICAgICAgICAgICAgICAgICAgICAgICAgDQogICAgICAgICAgICAgICAgICAg ICAgICAgICAgICAgICAgICAgICAgICAgICAgICAgICAgICAgICAgICAgICAgICAgICAgICAgICAgICAg ICAgICAgICAgICAgICAgICAgICAgDQogICAgICAgIC AgICAgICAgICAgICAgICAgICAgICAgICAgICAgICAgICAgICAgICAgICAgICAgICAgICAgICAgICAgIC XlOBPtOJZcOWHqBLCbAIXvAADdMTQzQRYkOMZzNEMeGKm3Q3xeMCWfBNYlAG0vTUt8Pb5+DQoNCmVuZH Y0ztUbcY6MZP0ba7VzWPwnXPXvt2RiXDc1MV6BOMWu FOdfZT1JCErchx4OEZLsWNNrgGVXi7ieDaNrDWW2YUEqLaruDL2HLVNmN2ofieEfNJHaFVIPXX5CXuLk U6UvxI21JZZWAe8+SSzzjzMxCapYZwH3XSCzv4AkCOv7II9WUTSaCtzvu1CvLoUnTLBWQNdpTZ0UTLY1 UGT7TSGuHa9MHULjU445miDlNF3KEy3WNgPzKT1ncm 4MLsEgCSVjDbkLDrq5BIxeJX8BnRUeUZvVbz5idaJencUMz1WiofJxrGHAFPOrsfVCp1H3cbeeLMK3JO PnHcFkPqBiXSOuEvvvVnZHKHuTXbXlU5Cvf5BzIuP6EMNrMtSqSAhiKHXtBwC8JP55fRhvCC9HFJQtGU KzEY90DXB3JXVeRa6CYc7ZNqLdIY7dkb5JEgjnQHCw QpqOGkj4AUtoVV2IfKTmB4XwoJMed2eUPyMxE0VGJHTdNDHtWo9ZUYNnLjBqWATnHVbcSY8vQHCwTTUL jUiwvyD3ES7NNV9npvBgBV8CGvWcVe4hPs3FPhYoZ2GbL2KzGXYtATQOQSqwZI2XIBvvWE0bKN4Ct0ZH kBJufX4gik1YUVPnNHPtZlrcyv0EXaluF7C1nZahWK WiRhAsRKFBAJsjFR3ZYBMpWIY4LREfZAQlMCFLKiUbO21tJT4MZ0Fjn17jVdX2VLKeIyQlUUxwLS94hP tltmImsKCvgIzzRK8BIz6+ZHseicYsNnhSCaexSSMTEfFuSdyWOkYwQQUnUQQrFMQoFbV9IpKuKr5RJS AwMDAwMDAxNyAwMDAwMCBuDQowMDAwMDIwMzUzIDAw ZKVnPW3MGuJsFGIhAgAwZWYmPCAxJJSzcb7MJPIkOLHiACM6QpXpTNEnSIRxJBbuQBQxBQLhQSokAEWs VMXoWK3UEhMoYQQrZUW1LhibELKkUDTyas7WPNYaEMTwJaeyDSDxQLMkYDMoCHcfDGLhRIYcWYS4OEOu BAWvIN3BWlRiQOEuYZReJbXbIELyCTUnge9AGRBfGG JwYML1EDMxSDClZGDtOMdmHBMfNXI5Obe6FGFdOSGfDI8EDiPqKCErXLP8QPreCKUcKGHogr5PFHItOR FkXkpiZSLqTAUeCMTrYLhkCKBtURG7IKM6WZLzLEGoSS2LDuTtKUNhYQnsFjUjJFElGXOqrw4FQNGhNL TyZwJ6QiAxAKIwFUOwFBxzVSVnKAJ1TrW5ZXGbJUVu DQ9IHoCcRUUjBHq6ZwTwQJQpRWVkqf7LULDlIFReKDp5MyLzPDHsLVUnXYzmKQTqDGJ5SXXyTPDdNVFq LR8WUfLdJRVoHZa5GgFeSXAyJKKgyg7AOEYhJUIrJGP5WYHaGDEkAGBrSOlnCAYeYYTlQqWvGRFaFBAm EG9MPdOzLSTqEuF3HpLuWDLtBJThvr3JKVFdMQQtOi JaEJXhOGPbHICnJKptQNPqIXBmTbqfIAZpYBYnRF1EAqVpKRLaPvF4YMVzQBEvOMPpmn7JzUGmyMxcee 0HIMfIWw6IzMvxZKX3AZllDa3dvTNiPnUuFVYBZb9ZquJzGCSgXEQPIOpgXLIkFSK1LNQiDpf5OfT6CV Y2SGBpMIeqRrD2T3ZmEGMbT8TnFoS8QYz3YRHyAXNd HWanKAxyV7UuTMAeCFYmH4Q3HiS6QLA+MW1pIMn+Tj9Qz2XzxmO2faFqUDlnZtJ0RA3KOZBUG4LXKd== ID Date Data Source [id number] 06/19/2020 02:46:[address] [facility] Name Value Range Interpretation Code Description Data Evelin rce(s) Supporting Document(s) Progress Notes [facility] YZTZUn1aHvJOExFa13/QBXrnXFEqd0EmQSheNIw8OCtzUEBeG7AqXRF2hR1kLOA7DCvHLgTlObBuDUR9 lbm [file] PzRHO4OPlxJAq5U7J3SMAvOrD9T0H9GT4oVYMUOw1+DVswdMUkmCnfCGGTGhU1HUV3TMtoHHCKBu4I ID Date Data Source [id number] 06/19/2020 02:10:[address] [facility] Name Value Range Interpretation Code Description Data Evelin rce(s) Supporting Document(s) Progress Notes [facility] DZAGSp4mKsEMNcZu09/EQJpjGYIvx8FtMMlkMKr3UCzqYSAgM6DuRRW5rQ0gRDB6ZTlMBxIpJuIrYZX5 lbm [file] znK4cmUfLWeeGxl6EJ8AXXRCR3TGYm== ID Date Data Source [id number] 06/19/2020 12:16:15 PM [facility] Patient: JAGJIT IBARRA : 1960 MR N: [id number] [facility]: [facility] Provider: LAURA DOANLINICAL [...] rce(s) Supporting Document(s) ID Date Data Source [id number] 06/19/2020 11:44:00 AM [facility] Name Value Range Interpretation Code Description Data Evelin rce(s) Supporting Document(s) Glucose, Fingerstick 216 mg/dl 70-[address] [facility] The above 1 analytes were performed by [facility] [id number] [place] [address],[facility] [id number],[place] [address] ID Date Data Source [id number] 06/19/2020 10:56:53 AM [facility] Indication for transesophageal echocardi ography:Bacteremia.ICDPrimary gravure press operator:Germán Henry procedure:Informed consent obtained from the [...] rce(s) Supporting Document(s) ID Date Data Source [id number] 06/19/2020 08:25:31 AM [facility] Name Value Range Interpretation Code Description Data Evelin rce(s) Supporting Document(s) Progress Notes [facility] NKSZUp3cBdDWBoGp53/WBPoySSVsd5BtBOidUZz8TGunKTWkO0WdPCH2tE1dCXF9RWkRBfLiWpHqQEG6 lbm [file] ICAgICAgICAgICAgICAgICAgICAgICAgICAgICAgIC AgICAgICAgICAgICAgICAgICAgICAgICAgICAgICAgICAgICAgICAgICAgDQogICAgICAgICAgICAgIC AgICAgICAgICAgICAgICAgICAgICAgICAgICAgICAgICAgICAgICAgICAgICAgICAgICAgICAgICAgIC AgICAgICAgICAgICAgICAgICAgICAgICAgDQogICAg ICAgICAgICAgICAgICAgICAgICAgICAgICAgICAgICAgICAgICAgICAgICAgICAgICAgICAgICAgICAg ICAgICAgICAgICAgICAgICAgICAgICAgICAgICAgICAgICAgDQogICAgICAgICAgICAgICAgICAgICAg ICAgICAgICAgICAgICAgICAgICAgICAgICAgICAgIC AgICAgICAgICAgICAgICAgICAgICAgICAgICAgICAgICAgICAgICAgICAgICAgDQogICAgICAgICAgIC AgICAgICAgICAgICAgICAgICAgICAgICAgICAgICAgICAgICAgICAgICAgICAgICAgICAgICAgICAgIC AgICAgICAgICAgICAgICAgICAgICAgICAgICAgDQog ICAgICAgICAgICAgICAgICAgICAgICAgICAgICAgICAgICAgICAgICAgICAgICAgICAgICAgICAgICAg ICAgICAgICAgICAgICAgICAgICAgICAgICAgICAgICAgICAgICAgDQogICAgICAgICAgICAgICAgICAg ICAgICAgICAgICAgICAgICAgICAgICAgICAgICAgIC AgICAgICAgICAgICAgICAgICAgICAgICAgICAgICAgICAgICAgICAgICAgICAgICAgDQogICAgICAgIC AgICAgICAgICAgICAgICAgICAgICAgICAgICAgICAgICAgICAgICAgICAgICAgICAgICAgICAgICAgIC AgICAgICAgICAgICAgICAgICAgICAgICAgICAgICAg DQogICAgICAgICAgICAgICAgICAgICAgICAgICAgICAgICAgICAgICAgICAgICAgICAgICAgICAgICAg ICAgICAgICAgICAgICAgICAgICAgICAgICAgICAgICAgICAgICAgICAgDQogICAgICAgICAgICAgICAg ICAgICAgICAgICAgICAgICAgICAgICAgICAgICAgIC GxIHSqRIEkYLNnBVNzVTSyLZLlHRLpFIJtLBPzGQTnTUMqNCQtYEMlTQBkDYTkXLGhYACmUFn3E2hpDM AnZFFuMC6cDSi9Zh3+JVwAQzQyNIV2kdFsoJ4MUK0ys8AkVVopSHCxk7AcAAn1HO7KGWMcIDyvYB1BKK xitg6XIWPhIBCvtRCId7cxUmDoLCP3NTYjWajkNA0O XYSbO6nmcwQyDFSkNEHNRFgdCMWESOocIJQYXC0ZPwVeE2CmuA87XLDOZt3+YPkchcYeNwhKNwO5FEIl n3EfUGa5LW8JCKHaQcieq9TwBbXcKKEMPErtHG3DSHG5LOO0PJGbDw8CSXLoI534oxKqVI4ZMf3HYgDv OL2rxu9KUgNzTRHbAjvARiv5APubIX8JsNPqFGnLbc 7oniYapmAFm4GhcjAwgZGAtXApYTsyJyFvMK0nEFVVDWNkeQPlEzJ4CeCuJbDjLEk5YvWfQH4aVYftKI 6MVJD5IZdnLPLlVOGnE0nNYeMaDUhbZZHbbEpaTU7NLeCwX0SmoySpsCKjRNUaCOTDIq3+DQplbmRvYm oBGfV3BNBhw5JlMGg2WT8DZZRlLMovUF8FTVIvxK1z BFoqPR0FDbEdUnViTVZNOnJsS63zvAYrPLy1W6LqGfFbWWZxPnswXUDbEHprEgXgZEUkSqCbLCogAY4+ ID4+ZNrvDV3SEHenuxIgFFHuJy4CTFRjHJYhEV8mXPOmEGBkW1S3fVtjATPWUgZmT1zxamovXU5qFZPh Q227eLqkveLjMZX7MVKqAi3WHIWvOAQ7GBRbuMDwEh GoRSLAJEcbXQ9TzWNpUDX3eW5kENoaQCDzBZGtP1tUSgHnyZtaQU01wTibdfProXOjHCp+Eh9ZVU4qm0 PxZUf2pbSuWQgcZRN9NKmeQLJxQKVvCWGvDHC6CAJ2VFXAAgSkWFXrSOKxAMldQEUxWWGrcg3UWRTrXC AxMjEyNiAwMDAwMCBuDQowMDAwMDEzODgzIDAwMDAw TN6IVjXdTVLrNNKnTIhzKAKxKRQplp7GRKNyMOHtIjObCBVoYLYiQWZqOXkwSAIgRAKyLiL2WPMqMGAa CR7KRgDrSZSuZIQ6RUMoLOIbGUXgun8LCYAuZGLbJGo6HTJrUNOySSQsFPyfBRQvHOX1XEI1RQPhIAPr DW1IUhZgWKRoACK8JJWuIYSfHLVxdj0AZXZoMMPhCq L3WgYqNHNtCWIgUQzgPHRjLCS1TFr7BTGtIENcXU3XUuNoEYWdFUrnThHxIEXzEKKdtt4CNBZmJXEhYH MmCgHaIWJnCAOeZZgyBQEyMQG6GdF5XCFuNPVcZT5ZUfLjFDUhVKb7UIPnUETrNXWnss5ELFOiEQEsAS N0NCJjVWBiWNVvNOumGSWrBZArTZB3SXDgLNDkGB9Z IgSaQSStLGZ2HJpdTHEkQPTrmu6KMQHsEBNeHDcmYeOmLWOtOQOiOJvjLREwEBYkBLK3YWXzNJZnEK8H SaBjZJDtNGWxVCDrCHFzKJBhpx2VYTAyZXSuLhY6ZmClGZOfFYSfEBkaWERpLBGgUCteWTAgMGYeLJ1C GuOqVWGqBCAwBbKhUKTeGCBrai0WFHXqHGBlMGBqXt MbYVBdYYPaWSd8kuBueQEzEDz8NF5LW7FbmyQtPjfDJx9Ul055LYR3TPIgQq7IX7vpDt5uZLAaYDCHQz 0BDOi0MZU3Vqc0OwxsELo5AXQuINdiEaEoC7R3AOu1HRH5DaU+FUgcZhtkBAjzKJQ5MYXvJWHsC6W6N0 KuXol9PNMiCLc2VU4uHSKMNt4+XSiulPMkdPtmQQUVBxX2WAJ8UGslEDUBCo7X ID Date Data Source [id number] 06/19/2020 07:00:[address] [facility] Name Value Range Interpretation Code Description Data Evelin rce(s) Supporting Document(s) Blood Urea Nitrogen 18 mg/dl 7-18 Normal (applies to non-nume kamilah results) [facility] Creatinine 0.82 mg/dl 0.67-1.17 Normal (applies to non-numeric resul ts) [facility] N-Acetylcysteine (NAC) and Metamizole bradley ve the potential to falselydepress Creatinine results. Baseline values before medication adminstration are recommended. Patients undergoing treatment with phenindione will have falselydepressed results. Patients on phenindione therapy should be tested with an alternativeCREA method.Toxic levels of acetaminophen may lead to falsely depressed results forpatient samples. Glomerular Filtration Rate >90.00 mL/min/1.73m2 [facility] GFR Reference Ranges:Normal Function or Mild [...] of Health and the National KidneyFoundation. The Gordon method used in calculating this result is traceable to IDMS standards. Glucose 202 mg/dl 70-110 Above high normal [facility] Sulfasalazine has the potential to false ly depress Glucose results. Sulfapyridine has the potential to falsely elevate Glucose results. Baseline values before medication administration are recommended. Calcium 9.2 mg/dl 8.5-10.1 Normal (applies to non-numeric resul ts) [facility] Sodium 136 mEq/L 136-145 Normal (applies to non-numeric resul ts) [facility] Potassium 3.7 mEq/L 3.5-5.1 Normal (applies to non-numeric resul ts) [facility] Chloride 102.0 mEq/L 98.0-107.0 Normal (applies to non-numeric resu lts) [facility] Carbon Dioxide 30.0 mMol/L 21.0-32.0 Normal (applies to non-numeric results) [facility] Anion Gap 7.7 7.0-15.0 Normal (applies to non-numeric resul ts) [facility] The above 10 analytes were performed by [id number] [id number] [address] ID Date Data Source [id number] 06/19/2020 07:00:[address] [facility] Name Value Range Interpretation Code Description Data Evelin rce(s) Supporting Document(s) AST 25 IU/L 15-37 Normal (applies to non-numeric resul ts) [facility] Sulfasalazine and sulfapyridine have the potential to falsely depressAspartate Aminotransferase results. Baseline values before medication administration are recommended. ALT 28 IU/L 16-61 Normal (applies to non-numeric resul ts) [facility] Sulfasalazine and sulfapyridine have the potential to falsely depressAlanine Aminotransferase results. Baseline values before medication administration are recommended. Alkaline Phosphatase 114 mIU/ml 50-136 Normal (applies to n on-numeric results) [facility] Total Bilirubin 1.10 mg/dl 0.20-1.00 Above high normal [facility] Blood Urea Nitrogen 18 mg/dl 7-18 Normal (applies to non-nume kamilah results) [facility] Creatinine 0.82 mg/dl 0.67-1.17 Normal (applies to non-numeric resul ts) [facility] N-Acetylcysteine (NAC) and Metamizole bradley ve the potential to falselydepress Creatinine results. Baseline values before medication adminstration are recommended. Patients undergoing treatment with phenindione will have falselydepressed results. Patients on phenindione therapy should be tested with an alternativeCREA method.Toxic levels of acetaminophen may lead to falsely depressed results forpatient samples. Glomerular Filtration Rate >90.00 mL/min/1.73m2 [facility] GFR Reference Ranges:Normal Function or Mild [...] of Health and the [employer]. The Gordon method used in calculating this result is traceable to IDMN standards. Glucose 202 mg/dl 70-110 Above high normal [facility] Sulfasalazine has the potential to false ly depress Glucose results. Sulfapyridine has the potential to falsely elevate Glucose results. Baseline values before medication administration are recommended. Calcium 9.2 mg/dl 8.5-10.1 Normal (applies to non-numeric resul ts) [facility] Total Protein 7.7 g/dl 6.4-8.2 Normal (applies to non-numeric re sults) [facility] Albumin 3.1 g/dl 3.4-5.[address] [facility] Sodium 136 mEq/L 136-145 Normal (applies to non-numeric resul ts) [facility] Potassium 3.7 mEq/L 3.5-5.1 Normal (applies to non-numeric resul ts) [facility] Chloride 102.0 mEq/L 98.0-107.0 Normal (applies to non-numeric resu lts) [facility] Carbon Dioxide 30.0 mMol/L 21.0-32.0 Normal (applies to non-numeric results) [facility] Anion Gap 7.7 7.0-15.0 Normal (applies to non-numeric resul ts) [facility] The above 16 analytes were performed by [facility] [address],[facility]#: [id number],[place] [address] ID Date Data Source [id number] 06/19/2020 06:55:[address] [facility] Name Value Range Interpretation Code Description Data Evelin rce(s) Supporting Document(s) WBC 9.03 x1000/ul 4.80-10.00 Normal (applies to non-numeric re sults) [facility] RBC 4.01 x1Mil/ul 4.70-6.10 Below low normal [facility] Hemoglobin 11.6 g/dl 14.0-18.0 Below low normal [facility] Hematocrit 34.9 % 42.0-52.0 Below low normal [facility] MCV 87.0 fL 80.0-94.0 Normal (applies to non-numeric resul ts) [facility] MCH 28.9 pg 27.0-31.0 Normal (applies to non-numeric resul ts) [facility] MCHC 33.2 g/dl 32.2-37.0 Normal (applies to non-numeric resul ts) [facility] RDW 12.2 % 11.5-14.5 Normal (applies to non-numeric resul ts) [facility] Platelet Count 314 x1000/ul 130-400 Normal (applies to non-numeric results) [facility] MPV 9.4 fL 9.4-12.4 Normal (applies to non-numeric resul ts) [facility] Neutrophils 71.9 % 40.0-74.0 Normal (applies to non-numeric resu lts) [facility] Lymphocytes 19.8 % 19.0-48.0 Normal (applies to non-numeric resu lts) [facility] Monocytes 6.1 % 3.4-9.0 Normal (applies to non-numeric resul ts) [facility] Eosinophils 1.0 % 0.0-7.0 Normal (applies to non-numeric resu lts) [facility] Basophils 0.4 % 0.0-2.0 Normal (applies to non-numeric resul ts) [facility] Immature Granulocytes 0.8 % 0.0-0.[address] [facility] Nucleated RBCs 0.00 % 0.00-0.20 Normal (applies to non-numeric r esults) [facility] Abs. Neutrophils 6.49 x1000/ul 1.92-8.31 Normal (applies to non-numeric results) [facility] Abs. Lymphocyte 1.79 x1000/ul 1.20-3.70 Normal (applies to non-n umeric results) [facility] Abs. Monocytes 0.55 x1000/ul 0.14-0.97 Normal (applies to non-nu meric results) [facility] Abs. Eosinophils 0.09 x1000/ul 0.00-0.76 Normal (applie s to non-numeric results) [facility] Abs. Basophils 0.04 x1000/ul 0.00-0.22 Normal (applies to non-n umeric results) [facility] Abs. Immature Gran. 0.07 x1000/ul 0.00-0.[address] [facility] Abs. Nucleated RBCs 0.00 x1000/ul 0.00-0.02 Normal (appl ies to non-numeric results) [facility] The above 24 analytes were performed by [facility] [id number] [place] [address], ,[place] [address] ID Date Data Source [id number] 06/18/2020 09:23:[address] [facility] Name Value Range Interpretation Code Description Data Evelin rce(s) Supporting Document(s) Glucose, Fingerstick 242 mg/dl 70-[address] [facility] The above 1 analytes were performed by [facility] [id number] [place] [address], ,[place] [address] ID Date Data Source [id number] 06/18/2020 04:11:00 PM [facility] Name Value Range Interpretation Code Description Data Evelin rce(s) Supporting Document(s) Glucose, Fingerstick 233 mg/dl 70-[address] [facility] The above 1 analytes were [facility] [id number] [place] [address], ,[place] [address] ID Date Data Source [id number] 06/18/2020 03:57:09 PM [facility] Name Value Range Interpretation Code Description Data Evelin rce(s) Supporting Document(s) Progress Notes [facility] IDKBAs2tXnIKPeIw97/SRPovSJOob5VjACzxDQl0JTzgXMByY7YjJWP9nN8cQNE6NOiFXaWgNoPoZJK8 lbm [file] GPQ0MDNvDWWmBX9sUWXLNz4+HSdfnEUyuBgrBZTOBeKeVmN7LHelHUIWCi0F ID Date Data Source [id number] 06/18/2020 11:31:[address] [facility] Name Value Range Interpretation Code Description Data Evelin rce(s) Supporting Document(s) Glucose, Fingerstick 194 mg/dl 70-[address] [facility] The above 1 analytes were performed by [facility] [id number] [facility]#: [id number],[place] [address] ID Date Data Source [id number] 06/18/2020 07:50:[address] [facility] Name Value Range Interpretation Code Description Data Evelin rce(s) Supporting Document(s) Progress Notes [facility] BKBHAc6tCtXGRsBm61/PHGhhDVKbn4HoHVwfYZe5MZtaHGZhV7LwBGL2dK7rSYA5FWeYYwKhAcFcGZY1 lbm [file] YrF1VMpmCYwyNGF5VTEuLiRnKF7YBx1KRkP0NXJ4nTTqXy9KGJW1EYQRJaKtTH4COSp= ID Date Data Source [id number] 06/18/2020 07:23:[address] [facility] Name Value Range Interpretation Code Description Data Evelin rce(s) Supporting Document(s) Glucose, Fingerstick 189 mg/dl 70-[address] [facility] The above 1 analytes were performed by [facility] [id number] [place] [address], ,[place] [id number] ID Date Data Source [id number] 06/18/2020 05:01:[address] [facility] Name Value Range Interpretation Code Description Data Evelin rce(s) Supporting Document(s) Blood Urea Nitrogen 17 mg/dl 7-18 Normal (applies to non-nume kamilah results) [facility] Creatinine 0.92 mg/dl 0.67-1.17 Normal (applies to non-numeric resul ts) [facility] N-Acetylcysteine (NAC) and Metamizole bradley ve the potential to falselydepress Creatinine results. Baseline values before medication adminstration are recommended. Patients undergoing treatment with phenindione will have falselydepressed results. Patients on phenindione therapy should be tested with an alternativeCREA method.Toxic levels of acetaminophen may lead to falsely depressed results forpatient samples. Glomerular Filtration Rate 84.00 mL/min/1.73m2 [facility] GFR Reference Ranges:Normal Function or Mild [...] of Health and the National KidneyFoundation. The Gordon method used in calculating this result is traceable to IDMN standards. Glucose 176 mg/dl 70-110 Above high normal [facility] Sulfasalazine has the potential to false ly depress Glucose results. Sulfapyridine has the potential to falsely elevate Glucose results. Baseline values before medication administration are recommended. Calcium 9.5 mg/dl 8.5-10.1 Normal (applies to non-numeric resul ts) [facility] Sodium 135 mEq/L 136-[address] [facility] Potassium 3.8 mEq/L 3.5-5.1 Normal (applies to non-numeric resul ts) [facility] Chloride 100.0 mEq/L 98.0-107.0 Normal (applies to non-numeric resu lts) [facility] Carbon Dioxide 31.3 mMol/L 21.0-32.0 Normal (applies to non-numeric results) [facility] Anion Gap 7.5 7.0-15.0 Normal (applies to non-numeric resul ts) [facility] The above 10 analytes were performed by [facility] [id number] [place] [address],[facility]#: [id number],[place] [id number] ID Date Data Source [id number] 06/18/2020 04:53:[address] [facility] Name Value Range Interpretation Code Description Data Evelin rce(s) Supporting Document(s) WBC 7.34 x1000/ul 4.80-10.00 Normal (applies to non-numeric re sults) [facility] RBC 4.21 x1Mil/ul 4.70-6.10 Below low normal [facility] Hemoglobin 12.0 g/dl 14.0-18.0 Below low normal [facility] Hematocrit 36.4 % 42.0-52.0 Below low normal [facility] MCV 86.5 fL 80.0-94.0 Normal (applies to non-numeric resul ts) [facility] MCH 28.5 pg 27.0-31.0 Normal (applies to non-numeric resul ts) [facility] MCHC 33.0 g/dl 32.2-37.0 Normal (applies to non-numeric resul ts) [facility] RDW 12.1 % 11.5-14.5 Normal (applies to non-numeric resul ts) [facility] Platelet Count 339 x1000/ul 130-400 Normal (applies to non-numeric results) [facility] MPV 8.8 fL 9.4-12.[address] [facility] Neutrophils 63.8 % 40.0-74.0 Normal (applies to non-numeric resu lts) [facility] Lymphocytes 26.3 % 19.0-48.0 Normal (applies to non-numeric resu lts) [facility] Monocytes 6.8 % 3.4-9.0 Normal (applies to non-numeric resul ts) [facility] Eosinophils 1.6 % 0.0-7.0 Normal (applies to non-numeric resu lts) [facility] Basophils 0.7 % 0.0-2.0 Normal (applies to non-numeric resul ts) [facility] Immature Granulocytes 0.8 % 0.0-0.[address] [facility] Nucleated RBCs 0.00 % 0.00-0.20 Normal (applies to non-numeric r esults) [facility] Abs. Neutrophils 4.68 x1000/ul 1.92-8.31 Normal (applies to non-numeric results) [facility] Abs. Lymphocyte 1.93 x1000/ul 1.20-3.70 Normal (applies to non-n umeric results) [facility] Abs. Monocytes 0.50 x1000/ul 0.14-0.97 Normal (applies to non-nu meric results) [facility] Abs. Eosinophils 0.12 x1000/ul 0.00-0.76 Normal (applie s to non-numeric results) [facility] Abs. Basophils 0.05 x1000/ul 0.00-0.22 Normal (applies to non-n umeric results) [facility] Abs. Immature Gran. 0.06 x1000/ul 0.00-0.[address] [facility] Abs. Nucleated RBCs 0.00 x1000/ul 0.00-0.02 Normal (appl ies to non-numeric results) [facility] The above 24 analytes were performed by [facility] [id number] [facility], ,[place] [address] ID Date Data Source [id number] 06/17/2020 08:56:[address] [facility] Name Value Range Interpretation Code Description Data Evelin rce(s) Supporting Document(s) Glucose, Fingerstick 263 mg/dl 70-[address] [facility] The above 1 analytes were performed by [facility] [id number] [facility], ,[place] [address] ID Date Data Source [id number] 06/17/2020 04:48:[address] [facility] Name Value Range Interpretation Code Description Data Evelin rce(s) Supporting Document(s) Nursing Note [facility] VDWUUw8bGyFRKsTz35/UAEkbITIoc4UtNTqqDSm6UYfqXGYhJ3TxCWQ1jH5nZTB7VBoMYyMvLnGqHQGj [facility] [file] C2ZdfdQMTmLSu6TVNpYLBoNIH6OQUuVHJyMZ6cCA ANCj4+XVpvlFNgrIppEJMBMtq4XYQDWsOcHC2ZQEs= ID Date Data Source [id number] 06/17/2020 04:18:[address] [facility] Name Value Range Interpretation Code Description Data Evelin rce(s) Supporting Document(s) Glucose, Fingerstick 275 mg/dl 70-[address] [facility] The above 1 analytes were performed by [facility] [id number] [facility]#: [id number],[place] [address] ID Date Data Source [id number] 06/17/2020 02:33:53 PM EST [facility] Name Value Range Interpretation Code Description Data Evelin rce(s) Supporting Document(s) Progress Notes [facility] ATSDGt7wRyTHJaUi46/DHHgqAUFtv0JfZVmqFRd8QGyjTVCeQ9KePXH9zO4iUVM1QAnPUcNwJjNfIBVd lbm [file] BSDQogICAgICAvRjIgMTggMCBSDQogICAgICAvRjMg ByRnCSJVMQevZJHxMISyDcGkHxKtCBXCZPrcQROoWKRiJvRmFfozQWJHLo4TVsViOFPxRX1gsyMmqNB9 VP DESIGN+Fi6JLPSfRV7UgVZCK2IarXBmIVniX7MIUF5OHEV1NG1ZzPNvGT8KeJYAP6BkpWPhZj4mPYOmv5Vb Ms1rE4EDEWWFETZdIXfaFNiyNSXpCHo9O8H3FSCnP7 NKO511tKXjbIw2Uu6mH6ACOKrHYhFoKApcNXhpHTBzMMw6U4X6BEXoD0FDH9QpRkWofxWfX4Z+PiAvUE FXSD3DBUNSXKs0J9D2yGAgE5Q7mDjViNB0EB5AAI7HfVCzwELsh10+WiINQvPnMUJhV9JJQOTMUvJxPP whLPveBUXfGHx8B0T6BIYhU9CJT0gzC1u6EC4+PiAN ElOyXYUqMu7IIcJqVz2AJrEoXW4zhx5XKhthWWLvLeqYLwv6Y7zupvo9lNOeXtN3Z6U1XqX9hYQsUH8H T3Q7tMOvHQZ7DEEqzYD+Aa8Te4ThUFSvLOy1C6xwUITtIPGpOwKowU19Z++5klbyvYO0S8e5EPRHyECm aUtBdhDvP0aMZCF8l6I1DPk/Pf7EDSL9jKr5pHXvLQ EqLZr7pG4pqVc8HzTkUO32ZMIvEYeivR1jCkv4U9Tuq3VsXx6mTw0idFVqBt2TLlToYYM6sjTrMrXZOe J4iUptcvbwHHQ3R7u7oDV0Xc04g2nwrtVcu2RnUhV8QYcsBPYwXwGuzcBxBYE3goTwwW7opvVzOz5YFG CgZBdutzXpKfOLFd9MEeIpWL82PgaxbP6elPW+DQog ICAgICAgICAgICAgICAgICAgICAgICAgICAgICAgICAgICAgICAgICAgICAgICAgICAgICAgICAgICAg ICAgICAgICAgICAgICAgICAgICAgICAgICAgICAgICAgICAgICAgDQogICAgICAgICAgICAgICAgICAg ICAgICAgICAgICAgICAgICAgICAgICAgICAgICAgIC AgICAgICAgICAgICAgICAgICAgICAgICAgICAgICAgICAgICAgICAgICAgICAgICAgDQogICAgICAgIC AgICAgICAgICAgICAgICAgICAgICAgICAgICAgICAgICAgICAgICAgICAgICAgICAgICAgICAgICAgIC AgICAgICAgICAgICAgICAgICAgICAgICAgICAgICAg DQogICAgICAgICAgICAgICAgICAgICAgICAgICAgICAgICAgICAgICAgICAgICAgICAgICAgICAgICAg ICAgICAgICAgICAgICAgICAgICAgICAgICAgICAgICAgICAgICAgICAgDQogICAgICAgICAgICAgICAg ICAgICAgICAgICAgICAgICAgICAgICAgICAgICAgIC AgICAgICAgICAgICAgICAgICAgICAgICAgICAgICAgICAgICAgICAgICAgICAgICAgICAgDQogICAgIC AgICAgICAgICAgICAgICAgICAgICAgICAgICAgICAgICAgICAgICAgICAgICAgICAgICAgICAgICAgIC AgICAgICAgICAgICAgICAgICAgICAgICAgICAgICAg ICAgDQogICAgICAgICAgICAgICAgICAgICAgICAgICAgICAgICAgICAgICAgICAgICAgICAgICAgICAg ICAgICAgICAgICAgICAgICAgICAgICAgICAgICAgICAgICAgICAgICAgICAgDQogICAgICAgICAgICAg ICAgICAgICAgICAgICAgICAgICAgICAgICAgICAgIC AgICAgICAgICAgICAgICAgICAgICAgICAgICAgICAgICAgICAgICAgICAgICAgICAgICAgICAgDQogIC AgICAgICAgICAgICAgICAgICAgICAgICAgICAgICAgICAgICAgICAgICAgICAgICAgICAgICAgICAgIC AgICAgICAgICAgICAgICAgICAgICAgICAgICAgICAg ICAgICAgDQogICAgICAgICAgICAgICAgICAgICAgICAgICAgICAgICAgICAgICAgICAgICAgICAgICAg UVJaJXFdOLIlBLEqJBAuBQKmGRTmSKDeLHNjQSWuJUYqFYYtHCIyUVGrOXWnEPOgQQv5J6lrQUFwFDWa QV5sEOt0Yv6+ODzWDbObYEA8msRqlV4RDE3uz1InZL ikAFYae6UgXUm3US5JWZXzLTkcPD6SSBkzlv2KSVAnWSHuqBQYy0bhZxNyGXK6FJPkDlifNO0MQWIwO9 ekhqLbEITaVMWHYExrAGWJFGslPOUYTZ0ZCkIuU7RqlB71JHVYUr0+DItfrrCxQpyFXcPlETWsf8JnRJ b3AM1GVIQlLqrsc3KsRnMoZDWIJIpiKT7DYAA1GTFl BQBeJd2MQAUzD675fkAgGV2GNi3RSqIhKD9xyj7LNfGhXNIeGlyIUtl4KKmzQD1WmVXpYCkLue4wjbAl cvYKj0IafoPclFOMNWXhgSPafGWHAE8gb6UobqI8CSiyLIGkVXGvWX9hJq3cDAIhMQFnJvGuLCMVES0T NDRjZIEqqILqBXTdVFTLBM3SOIxeVZK8IgtfmvFpnW VgGHtoLE8FYLLrjxAuZsLcZFERHMp+Vn4THW9kg5PkALdjFxElYR4umv7SNOcVFnNtD9A8wLCjP3B8BS ppPr2IZURqYJLoAucuIATNTMxvVR9HOD5sxtG1LO6UuOWjTGVqPRLsuENqJSo5V01vcLNvKWqmMT4KWS A+Yadira+Pv3JESDtJZZeXARzPwVpKTKDIfHbS0RkB8HA u0VaA2JfOA93gWzdrvAzKWzgBS8LNN1qNHNuZOVKLR9VyIZqhO4qiuShCKQrFFMASuMfS97odDBwTTMx CSN9SZHeXh3PKWVrC9LcjdZotTprwoPyYMCvGCPSMP7PQUxppqTggQZdlJvhLF65wNlcLF6WUa0WArPx ME4nyq3UlURcIp2FZXItGr5HNSFwQDScLTWaPJK3PJ TyZjXaUUhoKWIzBQAnVCA2WVHcPAAnIF1YEtTuKZUxMFH3BpFdGSNmYPPnrk1RFBMuBDZsFlzqDrVsYD LyZOGvWImoBBLbKJStKXQ3KVGsRLCeMF7DQoSdUVNfVIM6TArxMGXrFGMyfp7OYVKkFZPrSmGmIfBqHK XvJDIqDTqxOXScMJS1ZeAgZAGmNSDlXN9MVcUxQDWg KMB6MXFrKOFzREOytk2QDQDiQTXgKfQ6GCOoZFIxUVFiFJxlURBkGHR8FhozFTNdWRVlTY4NHwTyWTLc OEj7KVKjSVMcCQGdqe4ECRVzSTSjHJe7MbUwWDVoILWtMZknAPIzKKU7KZKhRKKkCXNbRU3DLgXiBUAh BNNpCIFkXJFhZOJmfg3AJEFyCJRoTKZ9QIInNOYiWP RhGKdqBZZmAXKlDOksRKTrYONmNY7ZLtGuXRJsHJQ0ZXHuMLKeGBRqsz7QLPTqUYKzDPN8NpFbLLQmWA GaUJygSEKiECShKHK8IUCiVZKrMW6HQoZmBAUdOUE8KOQxUFXpNVTpvw1ZZYQlKBFwHqr6ObFsVMNvAD QrFAusUAZqLZArDYikASZlJAVyKO3KRzYyFWOpMLGj HXSvLSIuAUKzkh7KXNGzLTEyGXI8TVRcTWRoXLYrODnnYLFyHYV8CXWtBPYjGCGqFC9LVzHoXWQuSOX7 SUiaLHIqMKQbmg0VIMNsFPEeGEulCgPjGXIpEVDhUZilWHKzIBY4YFS3ZVMdYDSyRF1VUrOaTEHwYLIh GFSmXGHvABRnau9TXYEvCEUaNmydHsVrLWHvSWTbAS ziGDFmFBW9OCK6NEEqAZIqWR5LPcTdHZOtLQpkEgNfXWMmGMZuos8UrBHwoGoyky3BQVnKQl1OdAhwPP DiNEjaLv2aaSXaDcVnAUEOYd4CnkZlJRLbXWSEGNcnKNDpISJkNlPqLEYmJREmRiI3N7HzAVK3OVEmYB UxQmIlJzJzDyT5FGIvMHOuBRMtRKZwKwHcUzP2AICv VYOlZeO6MpAgIoA+KY9zIVx+Gl8It1YaiyP1ymViQRyuLNIcKt0WZTPAV8UHWs== ID Date Data Source [id number] 06/17/2020 02:14:[address] [facility] Name Value Range Interpretation Code Description Data Evelin rce(s) Supporting Document(s) Nursing Note [facility] UZRPGp4tCnUIVaIg61/YXNziUGEcn1UyTDkzTRz9XAajIYItT8WaQWM3vQ9bGYH9PHwNRePpGbCfAAPx lbm HhIcdFLlQtZEEoCafVLdUjWMjpSptnqQTbPS6MyBU5WGZiM80dJOZjRVGfA5NrWTjzHU7+LMeqDRR4fv JxpV0WDFRWGE7R4hCQuZ+0/1IwshOz1GJ9pxdaKXmhETXAqTUWsVsKYhkqGxA/G0BuYI5FaKlcOgmWLC z5cBd1JYnlBv14NjtGWRbQp/OqQkGXN/S7G4ApmccT ta+XEAeTRKRzHzCnTu22NQU5VoGPM05PV287xUMCJbtEA5P7bPbHgENwg+xb4HsjdT1eD6PoQlQmWCOx rCUzwRpDv7QqagJUhm3hrXQ5y5nvv6ogDTrdoMB6Sniw8EOZja1rtoyGLVyRCmRZWNmA6NUhwrSBaaRY RZHoAmc+QBhNRiqCeidRF9etWF9P6QWnCYNTQHfTgQ TcPGjX6YnSWljZYTy0mCx0xGEpGM6ICSzb6GqIXLDkjBEVdIpPvmsw2H2QkqlQOXdmhY/X9PR7Xg/xpv 4UTHR00eSjEDM0ssfDjTxAku62IWkUqglWai0uofwMlhuCPtCYqtTw+Vasyl/GFK+0a9IHmMQq1G7qtwbq [file] ID Date Data Source [id number] 06/17/2020 12:44:[address] [facility] Name Value Range Interpretation Code Description Data Evelin rce(s) Supporting Document(s) Progress Notes [facility] BQWDSb4gPbVBNfKp18/SDIuuKUVub1GgGWnkRIs8TKujMVUrF5IiEQS0xX9oCKC3ZKpXVsKnDwTvVRKu lbm [file] RjAgMTQgMCBSDQogICAgICAvRjEgMTcgMCBSDQogICAgICAvRjIgMjAgMCBSDQogICAgICAvRjMgMjMg PXVKZPvzYDQbRMBdDoVzAcIuOIQAKGmlAGWoGIUyVfYfWcdbQWFGFRqaSSAnCVObGvIaTyHvVDWAQo9K NoFfOLAmBW6fcqZbqXE1GJM+Bv8GHCVuQC8PpGTKH0 JemQChNPfjH6FMNT2YZIL1TA5MzRAuIS4UfTRDW3XihJVxHw0qXYHob8MwLf5oG2SJGQZDLCBfGXuiDG iiBMTtVGv9T5D4YVAgA2DLX754dBPwrZf3Lv4uS2FIPXaGPqReZCmpSJtdHOHeNLz0H5O7SZGuK1DYN0 CdJsBtffTgC8F+UwZzCZCFOB5NKUQOTLu8J6C2qKKc I5G2sFgUdGB7CJ3WOO7VpRBdlQOlz28+WlFUAsRwAEOdF9RXQYLXJyRqWFojKIldODEwOHl9F9A5LMYw V4MAU1jtB6j1PN3+NdINBeVpTJMiHu3ZYiWaFw8HZvRwZH6yqm6BXpDgZELjTteHHnv2Q0qmoou2hCOw VrP8W8T9KpI4lRXrWT7GJ5K6iTIvEFV8QSJcjLQ+Pg 4By7DtXORkZYw4E3pbPKOhEBRoYeXqlL35T++1dzllwGU3M8p4XDTPiCAhfXzAnqMdK3tBWDR6q4Y7RI c/Oq5KSGY1vXu8uAZcPWQyPHm8mO1hqCc1VyPtCR85RXAxNOecuJ3xWox5H6Rxm8IzEx1bWj5wwQBbQo 6QYrBqOFC4qsQjTwGBXcC4wWcxabteFVX6C0r1lJZ3 Ha90j4rxfvErt1OfScD0ASxkYXMhLrVkzkFlWXK9beNdfF2fcdCuXg4MMRHlANtvhhDuNzXRBz4AWsQq IG45HrsjgU8dfNF+DQogICAgICAgICAgICAgICAgICAgICAgICAgICAgICAgICAgICAgICAgICAgICAg ICAgICAgICAgICAgICAgICAgICAgICAgICAgICAgIC AgICAgICAgICAgICAgICAgICAgICAgDQogICAgICAgICAgICAgICAgICAgICAgICAgICAgICAgICAgIC AgICAgICAgICAgICAgICAgICAgICAgICAgICAgICAgICAgICAgICAgICAgICAgICAgICAgICAgICAgIC AgICAgDQogICAgICAgICAgICAgICAgICAgICAgICAg ICAgICAgICAgICAgICAgICAgICAgICAgICAgICAgICAgICAgICAgICAgICAgICAgICAgICAgICAgICAg ICAgICAgICAgICAgICAgDQogICAgICAgICAgICAgICAgICAgICAgICAgICAgICAgICAgICAgICAgICAg ICAgICAgICAgICAgICAgICAgICAgICAgICAgICAgIC AgICAgICAgICAgICAgICAgICAgICAgICAgDQogICAgICAgICAgICAgICAgICAgICAgICAgICAgICAgIC AgICAgICAgICAgICAgICAgICAgICAgICAgICAgICAgICAgICAgICAgICAgICAgICAgICAgICAgICAgIC AgICAgICAgDQogICAgICAgICAgICAgICAgICAgICAg ICAgICAgICAgICAgICAgICAgICAgICAgICAgICAgICAgICAgICAgICAgICAgICAgICAgICAgICAgICAg ICAgICAgICAgICAgICAgICAgDQogICAgICAgICAgICAgICAgICAgICAgICAgICAgICAgICAgICAgICAg ICAgICAgICAgICAgICAgICAgICAgICAgICAgICAgIC AgICAgICAgICAgICAgICAgICAgICAgICAgICAgDQogICAgICAgICAgICAgICAgICAgICAgICAgICAgIC AgICAgICAgICAgICAgICAgICAgICAgICAgICAgICAgICAgICAgICAgICAgICAgICAgICAgICAgICAgIC AgICAgICAgICAgDQogICAgICAgICAgICAgICAgICAg ICAgICAgICAgICAgICAgICAgICAgICAgICAgICAgICAgICAgICAgICAgICAgICAgICAgICAgICAgICAg ICAgICAgICAgICAgICAgICAgICAgDQogICAgICAgICAgICAgICAgICAgICAgICAgICAgICAgICAgICAg ICAgICAgICAgICAgICAgICAgICAgICAgICAgICAgIC VtSXZaGOJqEJDhUWWsKQJsGHQaDSPaEZSrQPRnLNKfOMl2Y4eyVDIvMXIhWL0aXGi6Px6+DQoNCmVuZH E6xdBmuA0AAE5nl5EkJGluRWLwu8RnOLp3XM2GNVPxRIziSF2IEZwgzs0CVHAaWKQisSGWc0lyMnLeGO C9OJMdOecuHE1OEKEcA2rrbzObSMXfWSEADLedWOMK IRrnEQFBGZDpSFWcXlHxIZigQI5Sw9EvuGZ8NYn+Ae2BKN5ni0UwBAsrGOGvLE0bsu3XXKcQLfCfV5Sd pjD0OQM4TAHiJd8OKDZuWEBfoTKuLoRzEECXQuWjS9TiqR69YUBMUs5+KRceaaSrTunCErQ4YAJzo5Zr GZa5OK5DEIQrYRl4yTGpANCgC8Tfw3BdSs84VAQcEj vdY0HcZW2vFHEGAX2gQUNDSLHvyYClDuAjQlLnAeOjZUF9TFhqYZ6vQXfuDX2QKJU1KVxtFGAzPDPsY2 jBRlYfQJiwQTGciSxgXB3XAuDjQ5VheySuyUBgRMZtEHZVUd7+TMknrbRhIdrDXgW9RGRll5OoBNc6WM 1LXYJuPGbqGS8WRLHodP7eAGfhJK2FEkKbCoDmLQNB IfOpL75iiHThIKc6I9IsDvNdWMViCrrpSXCsYUheDpIeEZCrAwPgBRbcNP5+ID4+XXdtDT3TRMtnwsVf XDWhZv4ZKIDkBXBdHK1pYRJmWSXlN7I6zWfaJCSARgHiD2idiymyMS3zFNHfR549wWjpibGhIGK6PPEs Lo9PFZRzPXT7SUBhgYXlQgUkPBVMDQcjGI6MiVQtMZ X4fM3tAAdkEVIkKYGcO3lTJzQujBehAK72cTyrjsCmkSLmMFp+Cm9ZSP3cy4UpDKq4xbPhHMrqJBF1LK qeFBElNLPhQVPfFGF5SKI0RNLWZyYnCXSdQMBrGAerQZYcBMYbdj8SXRWlQQLuDAG3OAXyRTPiFCEcKW zlYFEnVHRqYDIdROQsFCOeSQ5UJsLiTBZxOXMsAGic SPFqOYFkjo6TAEMtNIEtQtz7ZPXmNRVxDOBrJSzmUPJhBHNfQRL0QMNdAGCzFO5SCeSvPBBcMQL7VnFy RUFfGVAfwh4OWZPkCVEkIhw1ZbNvKMSzJPHdNWwnEBJfGYJ9LUGoVNOyJNJeUJ9OBnOtDPWeJZg8Cuzo USAjCUCdls0VDYMjLIZxRVP5LTIyEYLoWCYoQYuxDE EnWPMgWrY9POYpYKRxSW6FKuUzXZGhXQP0EIKyYQVuBNRkkw4APNFaOWAnKvjjGaWwBKLqYJNqRXynTK PqADZtWNP4XGZpEVFkEE7OFqKbWAMuDOF2FmGrQCGjRFYhlh3PBKBsBYYnAJY6LwUoPBOwYEFtITrkOI FaFKY0JmZ0WDPgIVHwHA9MJmBkTKMtHFIzEUWlRCRu FEDhws1RDTLfKDPvRRXiXHWrSHZzZEXpZNuoFJAqIPX5QaTeIOMpQMCvDE6YWfCmLRKeSGI4XZlqNILx MYKskl2KFEYpIPFiVwo3IWOoHOLhPKDfDVcgYQEdMON1EWT6UODhMFKfYM9EFwEqVRAoGVwiUVDrFLZu NIApvu9OWTKtUDKdNSZgIHUqUXEbXVHfIBlvGECxRN Q4AVW6ORBuBNBwAE8OMoJcRQKhDZzqOnFhXCIpNICxro0ZVPVmQBNjXYE3LDPvAZCbMCQgYGfyLMJqGN E5LhF3RDXwOCHoBG5BEjSiUZRfDpU1ZLosKNGxGWSlfi8GKQVnUOAyTSqtNBLyICQrOZRcFOedTMEpZD RfQON9QFNyQQTwLM8ZSeXvNBYvGpI6GEBwJTCgBOQx ts3ZAUPjRQRxFlI9WIPgNXHtBMBlZHipSEYfEFVzBCFbLUPfRYVkZP8MOgXiRXTaJpWxUUitUWJiSGZo du7IfTLtkOzypw3XKEvURs7SxKlyELZ1QQdoDc9jxZJwOgZxYZQVXa3UstSoOKZqEYGDTFlwBUTkCLax AXHbNgYvY9SoJaFrEOT7PsJxUZo7UZVmG3S1YjujOz O3VIGuWcE4XWFdYyAcKbD7YuGrSyD4BfK1HURbIqVtLLQ+UQ0yGTd+Ts1Vx6JwlqE3ysZeLLbqXpLgOO 3WIOADF1FPQc== ID Date Data Source [id number] 06/17/2020 11:39:[address] [facility] Name Value Range Interpretation Code Description Data Evelin rce(s) Supporting Document(s) Glucose, Fingerstick 256 mg/dl 70-[address] [facility] The above 1 analytes were performed by [facility] [address]#: [id number],[place] [address] ID Date Data Source [id number] 06/17/2020 08:49:[address] [facility] Name Value Range Interpretation Code Description Data Evelin rce(s) Supporting Document(s) Progress Notes [facility] CZZSXl0xUaSWOlVp05/DQEymFWQgl9YaXFbbEKl4KTpuUMUeV6MwGCC2hL2kLRW6YDzMUmJaRyDkUHOf lbm FhHugAAyKqPGCaRzsJLxSmYRjiLizjoQIgGL2WjNN2VTJtM53zPSUjEKVuI1YoBMV8AiE+Um6HLTLvkC FdSQ5UCvmG3A6Ub1m8Dq5/gahlkSsewtNeCwlD1IjReiNwC0tfk7BRu7jamwNCAhev9Ce4t/hIAtRMt6 TFJHpMIUuorVEzUa8IUHCT1M2/okRxY7KFYB9pdw5F EmdX4r//FveylifUpvaBNADieSLoeV1e/eCVe458ChbepzOywG41vBgruUjYbEWq4rlFolnDW2FuuIz9 VB1+gEZpAF58Sz5vKaTRqgk2HRvgIAdcBioeEpiQAR6+61y88zLVVbN7mcVJooNxwXUE3xCTAoinXL8r 9QhFRoWGCoXMwPCx3/ZhlnmpblqwKPuQoXg/UETXFk yMb+e7fqaZqcnqNIR7V/c6Jx6QLEhobwYsWphLOiCqNNA7jy4SleA4ch96qfPtrxrZCG92dEpD1AWzQM fnUNkFfOdpl0MLa0tcVIDAJcvRJIs3rLV1rK6z050ICDfXdm/5ooiD+SrZJqp3Ltj4tXTcIDSJFu7O19 9NjvWdwGTpoLXX3CY/H0jaPIqx/rIpnni5Jl++H1e4 rNB6R/ub7DXIGWfSVz26kKNn+9F591x3PxMeRQf9AXWXU9Hvc+gizyGfIKfuoqefd1YRlxeYzOpUggsM OL3+l3sxBXgZ0J9SmxbA88xyftPGMNIKEkEDa9p5rwzETSYc0PccKj0oUyWS0RnYXh6emH94JIATJ2Wg V1h0w79U5WmSvi3GoC00q36G4Dm41p8xwu6v6ilj8z [file] J3WwAjTnYqRM1ATq1ZAcE7ZCV3hFTtXf1LDHR0AVvWUnWeEZ4DVKn= ID Date Data Source [id number] 06/17/2020 07:15:00 AM [facility] Name Value Range Interpretation Code Description Data Evelin rce(s) Supporting Document(s) Glucose, Fingerstick 209 mg/dl 70-[address] [facility] The above 1 analytes were performed by [facility] [address], ,[place] [address] ID Date Data Source [id number] 06/17/2020 07:06:00 AM [facility] Name Value Range Interpretation Code Description Data Evelin rce(s) Supporting Document(s) C-Reactive Protein (Non-Cardiac) 26.90 mg/L 0.00-3.[address] [facility] The above 1 analytes were performed by [facility] [address], ,[place] [address] ID Date Data Source [id number] 06/17/2020 07:06:00 AM [facility] Name Value Range Interpretation Code Description Data Evelin rce(s) Supporting Document(s) AST 24 IU/L 15-37 Normal (applies to non-numeric resul ts) [facility] Sulfasalazine and sulfapyridine have the potential to falsely depressAspartate Aminotransferase results. Baseline values before medication administration are recommended. ALT 26 IU/L 16-61 Normal (applies to non-numeric resul ts) [facility] Sulfasalazine and sulfapyridine have the potential to falsely depressAlanine Aminotransferase results. Baseline values before medication administration are recommended. Alkaline Phosphatase 111 mIU/ml 50-136 Normal (applies to n on-numeric results) [facility] Total Bilirubin 1.00 mg/dl 0.20-1.00 Normal (applies to non-numeric results) [facility] Blood Urea Nitrogen 14 mg/dl 7-18 Normal (applies to non-nume kamilah results) [facility] Creatinine 0.88 mg/dl 0.67-1.17 Normal (applies to non-numeric resul ts) [facility] N-Acetylcysteine (NAC) and Metamizole bradley ve the potential to falselydepress Creatinine results. Baseline values before medication adminstration are recommended. Patients undergoing treatment with phenindione will have falselydepressed results. Patients on phenindione therapy should be tested with an alternativeCREA method.Toxic levels of acetaminophen may lead to falsely depressed results forpatient samples. Glomerular Filtration Rate 89.00 mL/min/1.73m2 [facility] GFR Reference Ranges:Normal Function or Mild Renal Disease,if clinically at risk:>or= 60Moderately decreased:30 - 59Severely decreased:15 - 29Renal Failure:<15 Please note that the MDRD equation requires an additional adjustment forAfrican-Americans (multiply the GFR result by 1.210).Glomarular Filtration Rate (GFR) is estimated based on the MDRDequation, which assumes a steady state for creatinine ([place] Int Med 139/2 137-149, 2003), as recommended by the [facility] in conjunction with the National Institutes of Health and the National KidneyFoundation. The Gordon method used in calculating this result is traceable to IDMN standards. Glucose 209 mg/dl 70-110 Above high normal [facility] Sulfasalazine has the potential to false ly depress Glucose results. Sulfapyridine has the potential to falsely elevate Glucose results. Baseline values before medication administration are recommended. Calcium 9.2 mg/dl 8.5-10.1 Normal (applies to non-numeric resul ts) [facility] Total Protein 7.5 g/dl 6.4-8.2 Normal (applies to non-numeric re sults) [facility] Albumin 3.0 g/dl 3.4-5.[address] [facility] Sodium 135 mEq/L 136-[address] [facility] Potassium 4.2 mEq/L 3.5-5.1 Normal (applies to non-numeric resul ts) [facility] Chloride 100.0 mEq/L 98.0-107.0 Normal (applies to non-numeric resu lts) [facility] Carbon Dioxide 30.1 mMol/L 21.0-32.0 Normal (applies to non-numeric results) [facility] Anion Gap 9.1 7.0-15.0 Normal (applies to non-numeric resul ts) [facility] The above 16 analytes were performed by [facility] [address], ,[place] [id number] ID Date Data Source [id number] 06/17/2020 07:06:[address] [facility] Name Value Range Interpretation Code Description Data Evelin rce(s) Supporting Document(s) Cardiac CRP (high sensitivity) 25.70 mg/L 0.0-3.0 Above high karey l [facility] Cardiac CRP Risk Ranges:Low Cardiac Risk :<1.0mg/LNormal Cardiac Risk:1.0 - 3.0 mg/LIncreased Cardiac Risk:>3.0mg/LThe above 1 analytes were performed by [facility] [address], ,[place] [address] ID Date Data Source [id number] 06/17/2020 06:35:[address] [facility] Name Value Range Interpretation Code Description Data Evelin rce(s) Supporting Document(s) WBC 9.64 x1000/ul 4.80-10.00 Normal (applies to non-numeric re sults) [facility] RBC 4.12 x1Mil/ul 4.70-6.10 Below low normal [facility] Hemoglobin 11.8 g/dl 14.0-18.0 Below low normal [facility] Hematocrit 36.3 % 42.0-52.0 Below low normal [facility] MCV 88.1 fL 80.0-94.0 Normal (applies to non-numeric resul ts) [facility] MCH 28.6 pg 27.0-31.0 Normal (applies to non-numeric resul ts) [facility] MCHC 32.5 g/dl 32.2-37.0 Normal (applies to non-numeric resul ts) [facility] RDW 12.2 % 11.5-14.5 Normal (applies to non-numeric resul ts) [facility] Platelet Count 349 x1000/ul 130-400 Normal (applies to non-numeric results) [facility] MPV 9.1 fL 9.4-12.[address] [facility] Neutrophils 74.8 % 40.0-74.0 Above high normal [facility] Lymphocytes 17.5 % 19.0-48.0 Below low normal [facility] Monocytes 5.4 % 3.4-9.0 Normal (applies to non-numeric resul ts) [facility] Eosinophils 1.0 % 0.0-7.0 Normal (applies to non-numeric resu lts) [facility] Basophils 0.3 % 0.0-2.0 Normal (applies to non-numeric resul ts) [facility] Immature Granulocytes 1.0 % 0.0-0.[address] [facility] Nucleated RBCs 0.00 % 0.00-0.20 Normal (applies to non-numeric r esults) [facility] Abs. Neutrophils 7.20 x1000/ul 1.92-8.31 Normal (applies to non-numeric results) [facility] Abs. Lymphocyte 1.69 x1000/ul 1.20-3.70 Normal (applies to non-n umeric results) [facility] Abs. Monocytes 0.52 x1000/ul 0.14-0.97 Normal (applies to non-nu meric results) [facility] Abs. Eosinophils 0.10 x1000/ul 0.00-0.76 Normal (applie s to non-numeric results) [facility] Abs. Basophils 0.03 x1000/ul 0.00-0.22 Normal (applies to non-n umeric results) [facility] Abs. Immature Gran. 0.10 x1000/ul 0.00-0.[address] [facility] Abs. Nucleated RBCs 0.00 x1000/ul 0.00-0.02 Normal (appl ies to non-numeric results) [facility] The above 24 analytes were performed by [facility] [id number] [facility], ,[place] [address] ID Date Data Source [id number] 06/16/2020 08:29:[address] [facility] Name Value Range Interpretation Code Description Data Evelin rce(s) Supporting Document(s) Glucose, Fingerstick 285 mg/dl 70-[address] [facility] The above 1 analytes were performed by [facility] [id number] [facility], ,[place] [address] ID Date Data Source [id number] 06/22/2020 01:52:[address] [facility] Name Value Range Interpretation Code Description Data Evelin rce(s) Supporting Document(s) Culture Result No Growth After 5 Days [facility] The above 1 analytes were performed by [facility] [id number], ,[place] [address] ID Date Data Source [id number] 06/22/2020 01:52:[address] [facility] Name Value Range Interpretation Code Description Data Evelin rce(s) Supporting Document(s) Culture Result No Growth After 5 Days [facility] The above 1 analytes were performed by [facility] [id number], ,[place] [address] ID Date Data Source [id number] 06/16/2020 05:33:[address] [facility] Name Value Range Interpretation Code Description Data Evelin rce(s) Supporting Document(s) AST 28 IU/L 15-37 Normal (applies to non-numeric resul ts) [facility] Sulfasalazine and sulfapyridine have the potential to falsely depressAspartate Aminotransferase results. Baseline values before medication administration are recommended. ALT 29 IU/L 16-61 Normal (applies to non-numeric resul ts) [facility] Sulfasalazine and sulfapyridine have the potential to falsely depressAlanine Aminotransferase results. Baseline values before medication administration are recommended. Alkaline Phosphatase 121 mIU/ml 50-136 Normal (applies to n on-numeric results) [facility] Total Bilirubin 0.60 mg/dl 0.20-1.00 Normal (applies to non-numeric results) [facility] Blood Urea Nitrogen 16 mg/dl 7-18 Normal (applies to non-nume kamilah results) [facility] Creatinine 0.82 mg/dl 0.67-1.17 Normal (applies to non-numeric resul ts) [facility] N-Acetylcysteine (NAC) and Metamizole bradley ve the potential to falselydepress Creatinine results. Baseline values before medication adminstration are recommended. Patients undergoing treatment with phenindione will have falselydepressed results. Patients on phenindione therapy should be tested with an alternativeCREA method.Toxic levels of acetaminophen may lead to falsely depressed results forpatient samples. Glomerular Filtration Rate >90.00 mL/min/1.73m2 [facility] GFR Reference Ranges:Normal Function or Mild [...] of Health and the National KidneyFoundation. The Gordon method used in calculating this result is traceable to IDMN standards. Glucose 279 mg/dl 70-110 Above high normal [facility] Sulfasalazine has the potential to false ly depress Glucose results. Sulfapyridine has the potential to falsely elevate Glucose results. Baseline values before medication administration are recommended. Calcium 9.1 mg/dl 8.5-10.1 Normal (applies to non-numeric resul ts) [facility] Total Protein 7.5 g/dl 6.4-8.2 Normal (applies to non-numeric re sults) [facility] Albumin 2.9 g/dl 3.4-5.[address] [facility] Sodium 133 mEq/L 136-[address] [facility] Potassium 4.4 mEq/L 3.5-5.1 Normal (applies to non-numeric resul ts) [facility] Chloride 99.0 mEq/L 98.0-107.0 Normal (applies to non-numeric resul ts) [facility] Carbon Dioxide 30.5 mMol/L 21.0-32.0 Normal (applies to non-numeric results) [facility] Anion Gap 7.9 7.0-15.0 Normal (applies to non-numeric resul ts) [facility] The above 16 analytes were performed by [facility] [id number] [place] [address], ,[place] [address] ID Date Data Source [id number] 06/16/2020 05:33:[address] [facility] Name Value Range Interpretation Code Description Data Evelin rce(s) Supporting Document(s) Magnesium 1.9 mg/dl 1.6-2.6 Normal (applies to non-numeric resul ts) [facility] The above 1 analytes were performed by [facility] [id number] [facility], ,[place] [address] ID Date Data Source [id number] 06/16/2020 04:50:[address] [facility] Name Value Range Interpretation Code Description Data Evelin rce(s) Supporting Document(s) WBC 8.37 x1000/ul 4.80-10.00 Normal (applies to non-numeric re sults) [facility] RBC 4.13 x1Mil/ul 4.70-6.10 Below low normal [facility] Hemoglobin 12.0 g/dl 14.0-18.0 Below low normal [facility] Hematocrit 36.7 % 42.0-52.0 Below low normal [facility] MCV 88.9 fL 80.0-94.0 Normal (applies to non-numeric resul ts) [facility] MCH 29.1 pg 27.0-31.0 Normal (applies to non-numeric resul ts) [facility] MCHC 32.7 g/dl 32.2-37.0 Normal (applies to non-numeric resul ts) [facility] RDW 12.1 % 11.5-14.5 Normal (applies to non-numeric resul ts) [facility] Platelet Count 352 x1000/ul 130-400 Normal (applies to non-numeric results) [facility] MPV 8.7 fL 9.4-12.[address] [facility] Neutrophils 66.1 % 40.0-74.0 Normal (applies to non-numeric resu lts) [facility] Lymphocytes 23.9 % 19.0-48.0 Normal (applies to non-numeric resu lts) [facility] Monocytes 6.0 % 3.4-9.0 Normal (applies to non-numeric resul ts) [facility] Eosinophils 1.8 % 0.0-7.0 Normal (applies to non-numeric resu lts) [facility] Basophils 0.5 % 0.0-2.0 Normal (applies to non-numeric resul ts) [facility] Immature Granulocytes 1.7 % 0.0-0.[address] [facility] Nucleated RBCs 0.00 % 0.00-0.20 Normal (applies to non-numeric r esults) [facility] Abs. Neutrophils 5.54 x1000/ul 1.92-8.31 Normal (applies to non-numeric results) [facility] Abs. Lymphocyte 2.00 x1000/ul 1.20-3.70 Normal (applies to non-n umeric results) [facility] Abs. Monocytes 0.50 x1000/ul 0.14-0.97 Normal (applies to non-nu meric results) [facility] Abs. Eosinophils 0.15 x1000/ul 0.00-0.76 Normal (applie s to non-numeric results) [facility] Abs. Basophils 0.04 x1000/ul 0.00-0.22 Normal (applies to non-n umeric results) [facility] Abs. Immature Gran. 0.14 x1000/ul 0.00-0.[address] [facility] Abs. Nucleated RBCs 0.00 x1000/ul 0.00-0.02 Normal (appl ies to non-numeric results) [facility] The above 24 analytes were performed by [facility] [id number] [place] [address],[facility]#: [id number],[place] [address] ID Date Data Source [id number] 06/16/2020 04:09:[address] [facility] Name Value Range Interpretation Code Description Data Evelin rce(s) Supporting Document(s) Consults [facility] EZMMPu7iRaVUWmEo14/APXvdHMGed5DkRSzkCSo4EDnmWDRcA5LjUCN3uB8fEEQ8ZFtAEmKlOjLbETPq [place] [file] AgICAgICAgICAgICAgICAgICAgICAgICAgICAgICAgICAgICAgICAgICAgICAgICAgICAgICAgICAgIC AgICAgICAgICAgICAgICAgICAgICANCiAgICAgICAgICAgICAgICAgICAgICAgICAgICAgICAgICAgIC AgICAgICAgICAgICAgICAgICAgICAgICAgICAgICAg ICAgICAgICAgICAgICAgICAgICAgICAgICAgICAgICANCiAgICAgICAgICAgICAgICAgICAgICAgICAg ICAgICAgICAgICAgICAgICAgICAgICAgICAgICAgICAgICAgICAgICAgICAgICAgICAgICAgICAgICAg ICAgICAgICAgICAgICANCiAgICAgICAgICAgICAgIC AgICAgICAgICAgICAgICAgICAgICAgICAgICAgICAgICAgICAgICAgICAgICAgICAgICAgICAgICAgIC AgICAgICAgICAgICAgICAgICAgICAgICANCiAgICAgICAgICAgICAgICAgICAgICAgICAgICAgICAgIC AgICAgICAgICAgICAgICAgICAgICAgICAgICAgICAg ICAgICAgICAgICAgICAgICAgICAgICAgICAgICAgICAgICANCiAgICAgICAgICAgICAgICAgICAgICAg ICAgICAgICAgICAgICAgICAgICAgICAgICAgICAgICAgICAgICAgICAgICAgICAgICAgICAgICAgICAg ICAgICAgICAgICAgICAgICANCiAgICAgICAgICAgIC AgICAgICAgICAgICAgICAgICAgICAgICAgICAgICAgICAgICAgICAgICAgICAgICAgICAgICAgICAgIC AgICAgICAgICAgICAgICAgICAgICAgICAgICANCiAgICAgICAgICAgICAgICAgICAgICAgICAgICAgIC AgICAgICAgICAgICAgICAgICAgICAgICAgICAgICAg ICAgICAgICAgICAgICAgICAgICAgICAgICAgICAgICAgICAgICANCiAgICAgICAgICAgICAgICAgICAg ICAgICAgICAgICAgICAgICAgICAgICAgICAgICAgICAgICAgICAgICAgICAgICAgICAgICAgICAgICAg ICAgICAgICAgICAgICAgICAgICANCiAgICAgICAgIC AgICAgICAgICAgICAgICAgICAgICAgICAgICAgICAgICAgICAgICAgICAgICAgICAgICAgICAgICAgIC AgICAgICAgICAgICAgICAgICAgICAgICAgICAgICANCjw/tITuI4szgYDwtvQ2K6lfVb7CTt7TOO1cy5 OgBPHhXJrojnWqFnuSLpXtIHCtEfzVDhj8WAigFZ7F fXHnT3LsX7EmHNsiHF3MYTZuYRHgrDHhFJWyJMYkCdV1AVWwLXjvYK6ScDAmSArrZSAbXMWkSjQjSVEd TSPuDJWyVFAyCBVNLWHqADOtIfDsZNbeLY4Xt4NkaMW9TSl+Hk9OXF7oo3FwAVaqSGVnEO0gch5BTQeV BvYcF5RldeA8KFDvPQXaMb1PRFLbYHUjtANoPvOoWW LNMvWnY2IbdN69JPBNFw4+SWfjjuIvEctLDmCpEUMqa3EhZMm7BZ4GGVRqGKq0oNRyA36hm7IqqHIbIq pjWSNyvDEpSLnvNCTweUHnPVCnESFBKAQxsXYaFaPhJqNsUzSdCXH2CHTdGK0jKXzjBM8TELB9YIuaMV NoWPPjP5sSBnUxTQpmDDAlnGzeBX2YBsQfP0WgbxTe dCAzMSAwIFINCj4+CUfjprWwFcmIScBxDUOfy7JfJKd4BG5ZFCAfUGrsBZ3KQGGktQ7eLVliWA0QBuLu PSPgOVACGvOuO50ecVBsXEi8F4VkWnDdKVPuYyxzAAKuZNkaMpIbGRZmKeIhBNzwKP9+ID4+EKwyQC9N CUafhgPjABRcHk4SMDWdEMYqAU6nXKNfNMJsO5J2dD uxERHBChWuP2drqumdLS9qQGCdP924rYcygxYzTXTdFXPzNm0OLDCuEIK6DNUhcBEmVhHbVVHRULmlGE 4QpQEbAGQ1mN9lQAvpEIRkCJQmL7dXArLlfJtbGP18yKewgqPnyOSeDMc+Dq6XVC6wn5NbETd6tfShWY lyXTJ3NWwuBCKiNQVuUDByNBG2ZOO3TPXVUeIuQKOm PXTqTOiiVTGkWHZqte8MIVFrNIVyJAFyDIXkSMSqQVVrFJbgCDQbKJFqNIhdDCZyPAEqAL6PRgEaDLDt QMZyPIwbBQCwXQDlda0ZRHQfTIWgDdn5JrMwEUOtWUUiPKhqYXNuULE7FIm4GYCyKFYiJA8HRyIfISYd FAPxVXDsZUWeKNBylr9SHVFhRPLnZsNjOJQzGMWxKX TeGIdlURNjNWG7PMW7VCDzAYJkNR6TArTgLSYvTCydRPOmHSYuRQEqrk4IODCtFLGkADFmNVTkUYOjAV CyJXyoDQIpPFQxPjYbLREcBEHgCM8AEeZmWIOpMFErJWRnHOCdDCMqpj8RUDPfBRDpLrH6NXAlZUNiLY VxUZnkZUEvUGFoRsD8VBHgOSBzCS7MJiNeTJVsYUK0 PLggXCXjDOYgke4GGIIpDIJlJzkkRrCcEBBzPRKjLGckUKGcMOV5JiT1XTFvZFXyKE9LBwEeDLDrFOE4 SfQxWWTwLHHlna9UZLZwQYDiSUU3VpBiGCYdSSIlQYmlJJTpXFX9SLW6XVAyVPUePD1GLuFcIPKpXMHs LZXzODGpBALqzo3YHOYnJAVzWpHqUcZnODPzAMCiXF euPOGgFVJ0ClApOHKaOJEkVO1LLrQbNCThUEj8FcEpRBYjLNJeiv7TAHOkQOExDth7QrFtJYYbFBOyOJ zaMHCqDBK0QkI9ZWJiQCDvCT5SMjRuYGQiABf0UVYhIEGaIHEemb9EMXHuRURbULR0DPPdOCPnCOBfHJ cmUXYtXRH3OPGzACMoAEQyRD5CItBfYSNqMoSgKUWg FGIqLRXnjv7CAPJhRHZtXIR7BWYfDHCfYJYyFKgwDHPdSCVtVeSeAJGbCXLzYU3HUkEcHRjpLFREYch9 EWwqB6e8BDVhUW4WU3Jeu1NtIpUcHGWFVLnbUN7sjcSbWTJdJa3SI8iAUgyaBDDaHqO8EAWaRKpiBoS2 QOGjY5Q1VeXkKlUfWGZfIT5pCRX6ZuAlOOd4OPUvCA LqZCYmJWN6VwOcALWfXsF2ECJbLePuXU2FWr1CBkS5WBV3zVOuYe2JBpB2ZoIXFpIfBA5FCOx= ID Date Data Source [id number] 06/16/2020 04:08:[address] [facility] Name Value Range Interpretation Code Description Data Evelin rce(s) Supporting Document(s) Consults [facility] SNIDId5eJpISUqDl42/ZHBpyYOQgt0MbLBlvHSp2DCkwCCEwI0KhPDL5zH3iPCZ8GRbFUsVaBiQsBCSd lbm [file] tpOiVKmwNhj6DP2ISLIIT0PGKz== ID Date Data Source [id number] 06/16/2020 03:33:[address] [facility] Name Value Range Interpretation Code Description Data Evelin rce(s) Supporting Document(s) Glucose, Fingerstick 261 mg/dl 70-[address] [facility] The above 1 analytes were performed by [facility] [id number] [place] [address],[facility]#: [id number],[place] [address] ID Date Data Source [id number] 06/16/2020 03:03:[address] [facility] Name Value Range Interpretation Code Description Data Evelin rce(s) Supporting Document(s) Consults [facility] ZJNBBl4jSaIHRnPr01/NTPblWETfz8SvBWfaGLs5GJipAHTuT9CyWKB7fQ1qJZF9RGwVSwWsHoFiZMYd lbm [file] gooiecgnu399Myyhvob+HERNÁNDEZ/SY8wfw54cjo9ei7yxCA [file] AY7kBCMZNf9+OIvcqREwoQtbVYSHHsG6HSNwRWlhNMYXOz7B ID Date Data Source [id number] 06/16/2020 12:43:[address] [facility] Name Value Range Interpretation Code Description Data Evelin rce(s) Supporting Document(s) H&P [facility] CPAZEg7zAqZQGlRs82/LWJbfUERdm3JpONywZPc1BJnrGDTzQ0HtSWA7mH2xFSB2TPwMAoMoWyItLCYz lbm XaXicRDlRvRQTsLwdDLfItGDwtYtapzJVcXI2AzTR7YDQsU03hOEYaAABmU8GwVGG8MSP+Wm8YHAVuqM GdOK2PYkrX6T1Mk4lSWCYjnzc/oLl3Q4BSmP+mjpmzuOqOFCfa5sJpCy6CFmbglbpDely/KsSAjiyI1e eKJbPcTkkmaoWC1JG0o0enuao/+716fVFj220H/7uf WRF6p5+9P/3NNt5SkVhPvT+gh1OBcI/5It5A6XXPBr3iKIIDvDj/V+kpxhda5ge1cwPsplvyX7Gcqt1p 676H3aHhHH5b6h5/Ei652R3a+l6FDu/gU0REk7z99Ua0QRClfMiw3r1pt/XDzpCUET1Kgw8/ANTIONETTE+P6sso [file] ICAgICAgICAgICAgICAgICAgICAgICAgICAgICAgICAgICAgICAgICAgICAgICAgICAgDQogICAgICAg ICAgICAgICAgICAgICAgICAgICAgICAgICAgICAgIC AgICAgICAgICAgICAgICAgICAgICAgICAgICAgICAgICAgICAgICAgICAgICAgICAgICAgICAgICAgIC AgDQogICAgICAgICAgICAgICAgICAgICAgICAgICAgICAgICAgICAgICAgICAgICAgICAgICAgICAgIC AgICAgICAgICAgICAgICAgICAgICAgICAgICAgICAg ICAgICAgICAgICAgDQogICAgICAgICAgICAgICAgICAgICAgICAgICAgICAgICAgICAgICAgICAgICAg ICAgICAgICAgICAgICAgICAgICAgICAgICAgICAgICAgICAgICAgICAgICAgICAgICAgICAgDQogICAg ICAgICAgICAgICAgICAgICAgICAgICAgICAgICAgIC AgICAgICAgICAgICAgICAgICAgICAgICAgICAgICAgICAgICAgICAgICAgICAgICAgICAgICAgICAgIC AgICAgDQogICAgICAgICAgICAgICAgICAgICAgICAgICAgICAgICAgICAgICAgICAgICAgICAgICAgIC AgICAgICAgICAgICAgICAgICAgICAgICAgICAgICAg ICAgICAgICAgICAgICAgDQogICAgICAgICAgICAgICAgICAgICAgICAgICAgICAgICAgICAgICAgICAg ICAgICAgICAgICAgICAgICAgICAgICAgICAgICAgICAgICAgICAgICAgICAgICAgICAgICAgICAgDQog ICAgICAgICAgICAgICAgICAgICAgICAgICAgICAgIC AgICAgICAgICAgICAgICAgICAgICAgICAgICAgICAgICAgICAgICAgICAgICAgICAgICAgICAgICAgIC AgICAgICAgDQogICAgICAgICAgICAgICAgICAgICAgICAgICAgICAgICAgICAgICAgICAgICAgICAgIC AgICAgICAgICAgICAgICAgICAgICAgICAgICAgICAg ICAgICAgICAgICAgICAgICAgDQogICAgICAgICAgICAgICAgICAgICAgICAgICAgICAgICAgICAgICAg ICAgICAgICAgICAgICAgICAgICAgICAgICAgICAgICAgICAgICAgICAgICAgICAgICAgICAgICAgICAg VBv6R1odCCUqBCUsHI6hMAt8Ao9+XUfEYrEeJNQ4tm RhsH3LJW6mv8ZeAYiwJXZuw1XwZJc6YW1WZBTkXCncFG9EJHqeyo1CDGEeXMYkyWQTt0pjFoWuDPK0PX BcAdgoPH5QDYFvE9oewlIxPKQyOUSFLTwkIQFPNVrdTICJGRVhOKRlNxFgIPkzKF7Zb8DsxYJ8UJj+Pg 7MPS1eu8CgKIdaYqSmMN1fld4MYLpOSnYyD4VkuuO4 BBR2LTBrHd6LKFHsZXRhyJVyLpBfDUDFXnElN4UciT84SERQRa4+ZXdantYvTqxWZcS6CRYje9GfEHl1 OH4NOPLoQVz0fSSeBIUWKQA4VKGre2iwlUFIDYecfrijGG4VIRX7FMDcQtXuIjAdHRNcFjbxRLJFPWuD VxQhX0Ryq9MmIiR0LUNeIeVzQQvwEONoBlS0SH79dW hxAS4WADOhWEUlON10RQG5NGFwZu7CSm4BIfDlCW7lpk2EUmhzVFCxBmbTAgz1VMzkDZ6BsMKdY0XheP Eeu4uXPtMjA9KARXS2NVAcQs3BDUSnHsEeICLeGPwqJW2tOIVrEINYzVizarZ9NZ9ZUH0vpkSpLV5HPh ZxOx9xGx2PSfXwF1YiG7VpLEXdGZHSIPpvOO1IHYkn GY9eCK7Zu3AKoUTaxC9hur6XVPTqQICoAwbafy6QZtrxM0R6lCurBOWoEuTtWJSYMIylPI9BFGFzJPW0 BFWzTIQuDBEQNnTyH33vXQ2EC1Upc35iUhP0UZBvWtOxCOaxUL20dLitduNgoOIkeLvzDB7FSb0+DQpl bmRvYmoNCnhyZWYNCjAgMjkNCjAwMDAwMDAwMDAgNj Q1ZtAfVt5ADKUwTTLrEJPeSiWpYTPcSGUsXNixXIXzLXK1Jnb5FQDjMIWqGP9FQuDjLEAqMRvyJZNwGO KqFSVykc3FNFStMOVsUVV2MhGuNWAbQUJnSEjdFYNiVZLxWTidUDIpCJQcEO4CAqQvFQNbKSQfQKFaTK ErOQBvkw3NGECjPAFwYro4AVLhOWRmSSJgZDyaLBGl OSU5VXExEONdWAGuFR3KOlMzKRXvPIw0SjQdFGEqZLDhqa8QABKyJZGaPOjsDFPrUDWcEIIuPWyvDLKm CBNvNwW5NHWvBBRbVF5TYmZrHDYyDYP8TdXsISLsLGPikd2VOOImLJHjWHfuXXUyKGDbOYAoYRsiCFPq UUIkJIFgPOYkIAYyOI8KBmMuQVRlRBAnKbKxWPGrJG Luvz6CFVErMAIlUmD5IKYnPAQdMDHpDRjzQQZhLPRtUhl1OEChGPAiFJ1YFiXcAQZiXNS4SuDpAYZqLB Xwpp2AUXAaKCWvLWDjRFOrUYLcWDQjPJhaNWIyYOJ0NrV6VEAqXUWgQE7RYbXrAMSsQYW3EXXlGWRsKL Ymch8CNGQjWZAeZIv9JBAgCQJbBBSuBGpxMPDvIQE0 YDn2LKGyISWnBK9LYwQzFTDpAZBhBeJfTNIvYMDcwd0FRUCaVNQxTsrlWHHaNLLnOUAsPVodSGMbRTJ4 RLO9GNRaXCQiFX0IKeOzKZTiQYgyImepUUOfQFJzea7GBEGyHRCwTET2QvJbYANvLPXvDEn5xjKubUGc UEh6ID2NL8ItcrHuOcmNKg7Jh333JAX9LAHlKt6ZG8 deQk0lCCFfNEJASb6CFCq2JrW4SsP8KHEvCSR8BSXqQFn3ZFL3ESEgAlRnRTN9EAR+IDxjNThiZDkxNW UgWUJpWMQ0EyfvDGY9PEJ7SwG4TzHySF8gNKKZUe3+AQngzOMkdHyyCOINOkR3YuHaEUhcRBHCPp6G ID Date Data Source [id number] 06/16/2020 08:17:00 AM [facility] Bridget Ce is a rapid, automated qualita tive anddifferentiation of Influenza type A,B and EFMA-BIE-9BQOS-RT-PCR testNORMAL VALUE IS "NOT DETECTED".Limitations of the bridget ce Influenza A/B & QPLX-HJI-7ottzu method.Modifications to manufacturers recommendation and proceduresmay alter performance of the test.Negative results do not preclude Influenza A,B or SARS- PNZ4bwwksdzali and should not be used as the [...] rce(s) Supporting Document(s) ID Date Data Source [id number] 06/16/2020 08:17:00 AM [facility] Bridget Ce is a rapid, automated qualita tive anddifferentiation of Influenza type A,B and GAYP-QRV-1DXFX-RT-PCR testNORMAL VALUE IS "NOT DETECTED".Limitations of the bridget ce Influenza A/B & VONO-UDO-6neiiy method.Modifications to manufacturers recommendation and proceduresmay alter performance of the test.Negative results do not preclude Influenza A,B or SARS- PEC8dwfxoinztr and should not be used as the [...] Supporting Document(s) Extended hours FLU/COV2 NAAT L [facility] ID Date Data Source [id number] 06/16/2020 05:56:00 AM EST [facility] DRAWN FROM PICC LINE DRAWN FROM PICC LINE Name Value Range Interpretation Code Description Data Evelin rce(s) Supporting Document(s) Leukocytes [#/volume] in Blood by Automated count 8.5 10*3/uL 4.45-10 .71 N [facility] Erythrocytes [#/volume] in Blood by Automated count 4.22 10*6/uL 4.3-6.1 Below low normal [facility] Hemoglobin [Moles/volume] in Blood 12.3 g/dL 13-18 Below low no rmal [facility] Hematocrit [Volume Fraction] of Blood by Automated count 37.0 % 42-52 Below low normal [facility] Erythrocyte mean corpuscular volume [Ent itic volume] in Cord blood by Automated count 87.7 fL 80-96 N [facility] ital Erythrocyte mean corpuscular hemoglobin [Entitic mass] by Automated count 29.1 pg 27[facility] mean corpuscular hemoglobin concentration [Mass/volume] in Cord blood 33.2 g/dL 33-37 N [facility] ital Erythrocyte distribution width [Entitic volume] by Automated count 12 % 11-15 N [facility] Platelets [#/volume] in Blood by Automated count 374 10*3/uL 130-472 N [facility] Platelet mean volume [Entitic volume] in Blood 8.9 fL 9.1-13. 1 Below low normal [facility] Neutrophils/100 leukocytes in Blood by Automated count 65.2 % 41- 77 N [facility] Neutrophils [#/volume] in Blood by Automated count 5.6 U 1.7-7.6 N [facility] Lymphocytes/100 leukocytes in Blood by Automated count 25.0 % 14- 46 N [facility] Lymphocytes [#/volume] in Blood by Automated count 2.1 U 0.6-4.6 N [facility] Monocytes/100 leukocytes in Blood by Automated count 6.1 % 4-12 N [facility] Monocytes [#/volume] in Blood by Automated count 0.5 U 0.2-1.2 N [facility] Eosinophils/100 leukocytes in Blood by Automated count 1.6 % 0-7 N [facility] Eosinophils [#/volume] in Blood by Automated count 0.1 U 0.0-0.5 N [facility] Basophils/100 leukocytes in Blood by Automated count 0.5 % 0.4-1 .3 N [facility] Basophils [#/volume] in Blood by Automated count 0.0 U 0.0-0.2 N [facility] NUCLEATED RED BLOOD CELL 0 % [facility] NUCLEATED RED BLOOD CELL# 0 U [facility] Immature granulocytes [Presence] in Blood by Automated count 0-2 N [facility] Immature granulocytes [#/volume] in Blood by Automated count 0.1 U 0-0.1 N [facility] Manual Differential panel - Blood NO [facility] ID Date Data Source [id number] 06/16/2020 06:15:00 AM EST [facility] DRAWN FROM PICC LINE DRAWN FROM PICC LINE Name Value Range Interpretation Code Description Data Evelin rce(s) Supporting Document(s) Urea nitrogen [Mass/volume] in Serum or Plasma 15 mg/dL 9-23 [facility] Sodium [Moles/volume] in Serum or Plasma 138 mmol/L 132-146 [facility] Potassium [Moles/volume] in Serum or Plasma 4.3 mmol/L 3.5-5.5 [facility] Chloride [Moles/volume] in Serum or Plasma 102 mmol/L 99-109 [facility] Carbon dioxide, total [Moles/volume] in Serum or Plasma 32 mmol/ L 20-31 Above high normal [facility] Anion gap in Serum or Plasma 8 mmol/L 8-16 [facility] Glucose [Mass/volume] in Serum or Plasma 242 mg/dL 74-106 Above high normal [facility] Creatinine 0.9 mg/dL 0.5-1.1 [facility] Glomerular filtration rate/1.73 sq M.pre dicted [Volume Rate/Area] in Serum or Plasma Greater Than 60 ABOVE 60 [facility] Alanine aminotransferase [Enzymatic acti vity/volume] in Serum or Plasma by With P-5'-P 31 U/L 10-49 N [facility] ital Aspartate aminotransferase [Enzymatic ac tivity/volume] in Serum or Plasma by With P-5'-P 23 U/L 0-33 N [facility] Alkaline phosphatase [Enzymatic activity/volume] in Serum or Plasma 121 U/L 45-129 N [facility] Calcium [Mass/volume] in Serum or Plasma 9.5 mg/dL 8.5-10.1 N [facility] Bilirubin.total [Mass/volume] in Serum or Plasma 0.7 mg/dL 0.3-1.2 N [facility] Albumin [Mass/volume] in Serum or Plasma by Bromocresol purple (BCP) dye binding method 3.0 g/dL 3.2-4.8 Below low normal [facility] Protein [Mass/volume] in Serum or Plasma 7.8 g/dL 5.7-8.2 N [facility] ID Date Data Source [id number] 06/16/2020 12:00:00 AM EST [facility] Name Value Range Interpretation Code Description Data Evelin rce(s) Supporting Document(s) SARS-CoV2 Rapid PCR Not Detected [facility] This lab was ordered by [facility] and reported by [facility]. ID Date Data Source [id number] 06/15/2020 01:10:00 PM [facility] Name: JAGJIT IBARRA : 1960 Age: 60 MR#: [id number] Admit Date: 06/08/20 Provider: Nicolle Walls Room [...] Admit to Inpatient, Acute [STATUS] Routine Location: [facility] Primary diagnosis: Chest pain Isolation: Droplet Status: [...] % (Auto) 70.1, Lymph % (Auto) 20.8, [place]ock[place] % (Auto) 5.2, Eos % (Auto) 1.5, [...] left shoulder, not elsewhere classified SNOMED Code(s): [id number] A P Free Text/Narrative :: Hospital Course: [...] home with IV antibiotics following DANIELE at [place]. Patient has been accepted by Dr. Cruz at [facility] Cardiology. Vital signs temperature 97.1 right pulse 77, blood pressure 127/83, respiratory rate 20, oxygen saturation 96% on room air. CBC reviewed within normal limits. CMP reviewed within normal limits 1. Suspected endocarditis - Patient had PICC line placed on 06/13/2020 ; will receive IV Cefepime x 4 weeks (or as per infectious disease) - Being followed by DC; Willian doing PICC line care - Staph [...] post AICD pacemaker - F/u with electrophysiology/[facility] - The ED physician contacted [facility] cardiology who noted that the patient's pacemaker showed no abnormality, battery failure, or arrhythmia. 4. History of pulmonary embolism/DVT - Continue Eliquis 5. Status post Laurel filter placement 6. Atrial fibrillation - Continue [...] rce(s) Supporting Document(s) ID Date Data Source [id number] 06/16/2020 07:27:00 AM [facility] Name: JAGJIT IBARRA : 1960 Age: 60 MR#: [id number] Admit Date: 06/08/20 Provider: Nicolle Walls Room [...] for CHEST PAIN Family MD Cindy Iraheta, [employer] Discharge Date: 06/16/20 Most Recent Lab Results: 06/15/20 04:00 06/15/20 04:00 Laboratory Results Last 24 hours 06/14/20 07:30: WBC 9.6, RBC 4.29 L, Hgb 12.2 L, Hct 37.4 L, MCV 87.2, MCH 28.4, MCHC 32.6 L, RDW 12, Plt Count 377, MPV 8.7 L, Immature Gran % (Auto) 2.6 H, Neut % (Auto) 70.5, Lymph % (Auto) 19.2,Hockley % (Auto) 5.7, Eos % (Auto) 1.5, [...] % (Auto) 70.1, Lymph % (Auto) 20.8, Hockley % (Auto) 5.2, Eos % (Auto) 1.5, [...] uncontrolled hyperglycemia. The ED physician contacted [facility] cardiologywho noted that the patient's pacemaker [...] painhas since resolved. Dr. Ferreira from [facility] Cardiology saw the patient as echo [...] The patient was due to see the typesetter apprentice on 06/13 regarding his ICD but this [...] Q8H for treatment of suspected infective endocarditis. [id number] first dose on evening of 06/09, as of 06/16/2020 has received his first AM dose at 0400. of his 28 total days of IV ABX. Case management has been in contact with DC for approval of IV Cefazolin. Per DC request patient needs a DANIELE before IV ABX will be approved at home.Patient has been accepted by Dr. Cruz of [facility] cardiology. Patient Covid-19 PCR has been [...] rce(s) Supporting Document(s) ID Date Data Source [id number] 06/15/2020 05:06:00 AM EST [facility] LINE DRAW LINE DRAW Name Value Range Interpretation Code Description Data Evelin rce(s) Supporting Document(s) Leukocytes [#/volume] in Blood by Automated count 10.0 10*3/uL 4.45-1 0.71 N [facility] Erythrocytes [#/volume] in Blood by Automated count 4.36 10*6/uL 4.3- 6.1 N [facility] Hemoglobin [Moles/volume] in Blood 12.6 g/dL 13-18 Below low no rmal [facility] Hematocrit [Volume Fraction] of Blood by Automated count 38.5 % 42-52 Below low normal [facility] Erythrocyte mean corpuscular volume [Ent itic volume] in Cord blood by Automated count 88.3 fL 80-96 N [facility] Erythrocyte mean corpuscular hemoglobin [Entitic mass] by Automated count 28.9 pg 27-31 N [facility] Erythrocyte mean corpuscular hemoglobin concentration [Mass/volume] in Cord blood 32.7 g/dL 33-37 Below low normal [facility] Erythrocyte distribution width [Entitic volume] by Automated count 12 % 11-15 N [facility] Platelets [#/volume] in Blood by Automated count 415 10*3/uL 130-472 N [facility] Platelet mean volume [Entitic volume] in Blood 8.9 fL 9.1-13. 1 Below low normal [facility] Neutrophils/100 leukocytes in Blood by Automated count 70.1 % 41- 77 N [facility] Neutrophils [#/volume] in Blood by Automated count 7.0 U 1.7-7.6 N [facility] Lymphocytes/100 leukocytes in Blood by Automated count 20.8 % 14- 46 N [facility] Lymphocytes [#/volume] in Blood by Automated count 2.1 U 0.6-4.6 N [facility] Monocytes/100 leukocytes in Blood by Automated count 5.2 % 4-12 N [facility] Monocytes [#/volume] in Blood by Automated count 0.5 U 0.2-1.2 N [facility] Eosinophils/100 leukocytes in Blood by Automated count 1.5 % 0-7 N [facility] Eosinophils [#/volume] in Blood by Automated count 0.2 U 0.0-0.5 N [facility] Basophils/100 leukocytes in Blood by Automated count 0.6 % 0.4-1 .3 N [facility] Basophils [#/volume] in Blood by Automated count 0.1 U 0.0-0.2 N [facility] NUCLEATED RED BLOOD CELL 0 % [facility] NUCLEATED RED BLOOD CELL# 0 U [facility] Immature granulocytes [Presence] in Blood by Automated count 0-2 N [facility] Immature granulocytes [#/volume] in Blood by Automated count 0.2 U 0-0.1 Above high normal [facility] Manual Differential panel - Blood NO [facility] ID Date Data Source [id number] 06/15/2020 05:53:00 AM [facility] LINE DRAW LINE DRAW Name Value Range Interpretation Code Description Data Evelin rce(s) Supporting Document(s) Urea nitrogen [Mass/volume] in Serum or Plasma 13 mg/dL 9-23 N [facility] Sodium [Moles/volume] in Serum or Plasma 138 mmol/L 132-146 N [facility] Potassium [Moles/volume] in Serum or Plasma 4.4 mmol/L 3.5-5.5 N [facility] Chloride [Moles/volume] in Serum or Plasma 101 mmol/L 99-109 N [facility] Carbon dioxide, total [Moles/volume] in Serum or Plasma 31 mmol/L 20 -31 N [facility] Anion gap in Serum or Plasma 10 mmol/L 8-16 N [facility] Glucose [Mass/volume] in Serum or Plasma 242 mg/dL 74-106 Above high normal [facility] Creatinine 1.0 mg/dL 0.5-1.1 N [facility] Glomerular filtration rate/1.73 sq M.pre dicted [Volume Rate/Area] in Serum or Plasma Greater Than 60 ABOVE 60 [facility] Alanine aminotransferase [Enzymatic acti vity/volume] in Serum or Plasma by With P-5'-P 31 U/L 10-49 N [facility] ital Aspartate aminotransferase [Enzymatic ac tivity/volume] in Serum or Plasma by With P-5'-P 25 U/L 0-33 N [facility] pital Alkaline phosphatase [Enzymatic activity/volume] in Serum or Plasma 127 U/L 45-129 N [facility] Calcium [Mass/volume] in Serum or Plasma 9.5 mg/dL 8.5-10.1 N [facility] Bilirubin.total [Mass/volume] in Serum or Plasma 0.6 mg/dL 0.3-1.2 [facility] Albumin [Mass/volume] in Serum or Plasma by Bromocresol purple (BCP) dye binding method 2.9 g/dL 3.2-4.8 Below low normal [facility] Protein [Mass/volume] in Serum or Plasma 7.7 g/dL 5.7-8.2 N [facility] ID Date Data Source [id number] 06/14/2020 05:27:00 PM [facility] Name: JAGJIT IBARRA : 1960 Age: 60 MR#: [id number] Admit Date: 06/08/20 Provider: Unique Ford Room [...] Admit to Inpatient, Acute [STATUS] Routine Location: [facility] Primary diagnosis: Chest pain Isolation: Droplet Status: [...] % (Auto) 70.5, Lymph % (Auto) 19.2, [place] % (Auto) 5.7, Eos % (Auto) 1.5, [...] left shoulder, not elsewhere classified SNOMED Code(s): [id number] A P Free Text/Narrative :: 60 y/o male with PMH of 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 Patient had an ICD placed in 2014 and had a CVA in 2016. Labs reviewed. Plan 1. Suspected endocarditis - IV Vanco discontinued as Staph aureus is Methicillin suscepti ble, switched to IV Cefazolin 2g IV Q8H (x4 weeks) - Patient needs DANIELE- will arrange for out-patient DANIELE through [facility] Cardiology - Patient has to reschedule appointment on 06/13 at [facility] Cardiology in [place] - Blood cultures from 06/08, 06/09, 06/10 were negative after 48 hours - Dr. Ferreira from [facility] Cardiology saw the patient and recommended the following: - 4-6 weeks total of ABX - Repeat blood cultures the day after ABX are completed - If blood cultures sterilize immediately, complete antibiotic course and reassess 2. Chest pain - Resolved; continue telemetry - TSH WNL, repeat troponin negative 3. Status post AICD pacemaker - Will see typesetter apprentice; needs follow- up appointment rescheduled 4. History [...] Tramadol prn for pain Plan: Discharge pending DC approval for out-patient IV antibiotic treatment- anticipate tomorrow. Just need final approval from DC. Patient will be set up for follow-up [...] Llamas MD 06/15/20710 D: ANTONIETTASAJoelle 06/14/201726 T: [facility] 06/14/201726 CC: Name Value Range Interpretation Code Description Data Evelin rce(s) Supporting Document(s) ID Date Data Source [id number] 06/14/2020 08:07:00 AM EST [facility] @06/14/20 0754: MANUAL DIFF added. RFLXG = DIFF. @06/14/20 0754: MANUAL DIFF added. RFLXG = DIFF. Name Value Range Interpretation Code Description Data Evelin rce(s) Supporting Document(s) Leukocytes [#/volume] in Blood by Automated count 9.6 10*3/uL 4.45-10 .71 N [facility] Erythrocytes [#/volume] in Blood by Automated count 4.29 10*6/uL 4.3-6.1 Below low normal [facility] Hemoglobin [Moles/volume] in Blood 12.2 g/dL 13-18 Below low no rmal [facility] Hematocrit [Volume Fraction] of Blood by Automated count 37.4 % 42-52 Below low normal [facility] Erythrocyte mean corpuscular volume [Ent itic volume] in Cord blood by Automated count 87.2 fL 80-96 N [facility] Erythrocyte mean corpuscular hemoglobin [Entitic mass] by Automated count 28.4 pg 27-31 N [facility] Erythrocyte mean corpuscular hemoglobin concentration [Mass/volume] in Cord blood 32.6 g/dL 33-37 Below low normal [facility] Erythrocyte distribution width [Entitic volume] by Automated count 12 % 11-15 N [facility] Platelets [#/volume] in Blood by Automated count 377 10*3/uL 130-472 N [facility] Platelet mean volume [Entitic volume] in Blood 8.7 fL 9.1-13. 1 Below low normal [facility] Neutrophils/100 leukocytes in Blood by Automated count 70.5 % 41- 77 N [facility] Neutrophils [#/volume] in Blood by Automated count 6.8 U 1.7-7.6 N [facility] Lymphocytes/100 leukocytes in Blood by Automated count 19.2 % 14- 46 N [facility] Lymphocytes [#/volume] in Blood by Automated count 1.8 U 0.6-4.6 N [facility] Monocytes/100 leukocytes in Blood by Automated count 5.7 % 4-12 N [facility] Monocytes [#/volume] in Blood by Automated count 0.6 U 0.2-1.2 [facility] Eosinophils/100 leukocytes in Blood by Automated count 1.5 % 0-7 N [facility] Eosinophils [#/volume] in Blood by Automated count 0.1 U 0.0-0.5 N [facility] Basophils/100 leukocytes in Blood by Automated count 0.5 % 0.4-1 .3 N [facility] Basophils [#/volume] in Blood by Automated count 0.1 U 0.0-0.2 N [facility] NUCLEATED RED BLOOD CELL 0 % [facility] NUCLEATED RED BLOOD CELL# 0 U [facility] Immature granulocytes [Presence] in Blood by Automated count 0-2 Above high normal [facility] Immature granulocytes [#/volume] in Blood by Automated count 0.3 U 0-0.1 Above high normal [facility] Manual Differential panel - Blood Manual Diff Added [facility] ID Date Data Source [id number] 06/14/2020 08:19:00 AM EST [facility] @06/14/20 0754: MANUAL DIFF added. RFLXG = DIFF. @06/14/20 0754: MANUAL DIFF added. RFLXG = DIFF. Name Value Range Interpretation Code Description Data Evelin rce(s) Supporting Document(s) Urea nitrogen [Mass/volume] in Serum or Plasma 13 mg/dL 9-23 N [facility] Sodium [Moles/volume] in Serum or Plasma 135 mmol/L 132-146 [facility] Potassium [Moles/volume] in Serum or Plasma 4.1 mmol/L 3.5-5.5 [facility] Chloride [Moles/volume] in Serum or Plasma 101 mmol/L 99-109 [facility] Carbon dioxide, total [Moles/volume] in Serum or Plasma 28 mmol/L 20 -31 N [facility] Anion gap in Serum or Plasma 10 mmol/L 8-16 N [facility] Glucose [Mass/volume] in Serum or Plasma 216 mg/dL 74-106 Above high normal [facility] Creatinine 0.9 mg/dL 0.5-1.1 [facility] Glomerular filtration rate/1.73 sq M.pre dicted [Volume Rate/Area] in Serum or Plasma Greater Than 60 ABOVE 60 [facility] Alanine aminotransferase [Enzymatic acti vity/volume] in Serum or Plasma by With P-5'-P 26 U/L 10-49 N [facility] ital Aspartate aminotransferase [Enzymatic ac tivity/volume] in Serum or Plasma by With P-5'-P 25 U/L 0-33 N [facility] pital Alkaline phosphatase [Enzymatic activity/volume] in Serum or Plasma 110 U/L 45-129 N [facility] Calcium [Mass/volume] in Serum or Plasma 8.9 mg/dL 8.5-10.1 N [facility] Bilirubin.total [Mass/volume] in Serum or Plasma 0.7 mg/dL 0.3-1.2 N [facility] Albumin [Mass/volume] in Serum or Plasma by Bromocresol purple (BCP) dye binding method 2.8 g/dL 3.2-4.8 Below low normal [facility] Protein [Mass/volume] in Serum or Plasma 7.6 g/dL 5.7-8.2 [facility] ID Date Data Source [id number] 06/14/2020 08:07:00 AM [facility] @06/14/20 0754: MANUAL DIFF added. RFLXG = DIFF. @06/14/20 0754: MANUAL DIFF added. RFLXG = DIFF. Name Value Range Interpretation Code Description Data Evelin rce(s) Supporting Document(s) Cells counted [#] 100 [facility] Neutrophils [#/volume] in Blood by Manual count 65 % 41-77 N [facility] Lymphocytes [#/volume] in Blood by Manual count 19 % 14-46 N [facility] Monocytes [#/volume] in Blood by Manual count 12 % 4-12 N [facility] Eosinophils [#/volume] in Blood by Manual count 3 % 0-7 N [facility] Basophils [#/volume] in Blood by Manual count 1 % 0-2 N [facility] Platelets [#/volume] in Blood by Estimate APPEARS NORMAL NORMAL [facility] Morphology [Interpretation] in Blood Narrative APPEARS NORMAL NORMAL [facility] ID Date Data Source [id number] 06/13/2020 04:35:00 PM [facility] Name: JAGJIT IBARRA : 1960 Age: 60 MR#: [id number] Admit Date: 06/08/20 Provider: Unique Ford Room [...] Admit to Inpatient, Acute [STATUS] Routine Location: [facility] Primary diagnosis: Chest pain Isolation: Droplet Status: [...] % (Auto) 71.2, Lymph % (Auto) 18.5, [place] % (Auto) 6.0, Eos % (Auto) 1.1, [...] left shoulder, not elsewhere classified SNOMED Code(s): [id number] A P Free Text/Narrative :: 60 y/o male with PMH of 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 Ferreira from [facility] Card[facility] saw the patient and recommended the following: - 4-6 weeks total of ABX - Daily blood cultures x 3 days - Repeat blood cultures the day after ABX are completed - If daily blood cultures are positive or positive after completing ABX, patient will be required to have ICD removed (he is scheduled to see typesetter apprentice regarding ICD next week) - If blood cultures sterilize immediately, complete antibiotic course and reassess 2. Chest pain - Resolved; continue telemetry - TSH WNL, repeat troponin negative 3. Status post AICD pacemaker - Will see typesetter apprentice; needs follow-up appointment rescheduled 4. History of pulmonary embolism/DVT - Continue Eliquis 5. Status post Laurel filter placement 6. Atrial fibrillation - Continue [...] PICC line was placed today. Discharge pending DC approval for out-patient IV antibiotic treatment- anticipate tomorrow. Working to obtain DANIELE to determine endocarditis status and appropriate treatment regimen. Patient was scheduled to see typesetter apprentice at [facility] cardiology? for generator change of pacemaker [...] MD> Christo Llamas MD 06/13/20 1728 D: [facility] 06/13/20 1635 T: [facility] 06/13/20 1635 CC: Name Value Range Interpretation Code Description Data Evelin rce(s) Supporting Document(s) ID Date Data Source [id number] 06/13/2020 11:37:00 AM EST [facility] [address] [place] [address] [phone] NAME SEX PT STATUS ACCOUNT NUMBER JAGJIT IBARRA ADM IN [id number] ORDERING PHYSICIAN LOCATION MEDICAL RECORD NO. BETTINA CHOUBMESSER [id number] ATTENDING PHYSICIAN DATE OF DATE OF EXAM/TIME [...] Trans Dt/Tm: Trans by: DT Prt Dt/Tm: [id number]: Total DLP = 0.00 mGy-cm Fluoroscopy Time (in secs): Name Value Range Interpretation Code Description Data Evelin rce(s) Supporting Document(s) ID Date Data Source [id number] 06/13/2020 09:59:00 AM EST [facility] ([facility]) Name Value Range Interpretation Code Description Data [facility] rce(s) Supporting Document(s) .Scanned Labs Laboratory test result [facility] ([facility]) ID Date Data Source [id number] 06/13/2020 06:50:00 AM [facility] @06/13/20 0648: MANUAL DIFF added. RFLXG = DIFF. @06/13/20 0648: MANUAL DIFF added. RFLXG = DIFF. Name Value Range Interpretation Code Description Data Evelin rce(s) Supporting Document(s) Urea nitrogen [Mass/volume] in Serum or Plasma 10 mg/dL 9-23 N [facility] Sodium [Moles/volume] in Serum or Plasma 137 mmol/L 132-146 N [facility] Potassium [Moles/volume] in Serum or Plasma 4.3 mmol/L 3.5-5.5 N [facility] Chloride [Moles/volume] in Serum or Plasma 101 mmol/L 99-109 N [facility] Carbon dioxide, total [Moles/volume] in Serum or Plasma 29 mmol/L 20 -31 N [facility] Anion gap in Serum or Plasma 11 mmol/L 8-16 N [facility] Glucose [Mass/volume] in Serum or Plasma 237 mg/dL 74-106 Above high normal [facility] Creatinine 0.9 mg/dL 0.5-1.1 [facility] Glomerular filtration rate/1.73 sq M.pre dicted [Volume Rate/Area] in Serum or Plasma Greater Than 60 ABOVE 60 [facility] Alanine aminotransferase [Enzymatic acti vity/volume] in Serum or Plasma by With P-5'-P 25 U/L 10-49 [facility] ital Aspartate aminotransferase [Enzymatic ac tivity/volume] in Serum or Plasma by With P-5'-P 19 U/L 0-33 N [facility] pital Alkaline phosphatase [Enzymatic activity/volume] in Serum or Plasma 119 U/L 45-129 N [facility] Calcium [Mass/volume] in Serum or Plasma 8.8 mg/dL 8.5-10.1 [facility] Bilirubin.total [Mass/volume] in Serum or Plasma 0.6 mg/dL 0.3-1.2 [facility] Albumin [Mass/volume] in Serum or Plasma by Bromocresol purple (BCP) dye binding method 2.7 g/dL 3.2-4.8 Below low normal [facility] Protein [Mass/volume] in Serum or Plasma 6.9 g/dL 5.7-8.2 [facility] ID Date Data Source [id number] 06/13/2020 07:04:00 AM EST [facility] @06/13/20 0648: MANUAL DIFF added. RFLXG = DIFF. @06/13/20 0648: MANUAL DIFF added. RFLXG = DIFF. Name Value Range Interpretation Code Description Data Evelin rce(s) Supporting Document(s) Leukocytes [#/volume] in Blood by Automated count 10.4 10*3/uL 4.45-1 0.71 N [facility] Erythrocytes [#/volume] in Blood by Automated count 4.16 10*6/uL 4.3-6.1 Below low normal [facility] Hemoglobin [Moles/volume] in Blood 12.0 g/dL 13-18 Below low no rmal [facility] Hematocrit [Volume Fraction] of Blood by Automated count 36.3 % 42-52 Below low normal [facility] Erythrocyte mean corpuscular volume [Ent itic volume] in Cord blood by Automated count 87.3 fL 80-96 N [facility] ital Erythrocyte mean corpuscular hemoglobin [Entitic mass] by Automated count 28.8 pg 27-31 N [facility] l Erythrocyte mean corpuscular hemoglobin concentration [Mass/volume] in Cord blood 33.1 g/dL 33-37 N [facility] ital Erythrocyte distribution width [Entitic volume] by Automated count 12 % 11-15 N [facility] Platelets [#/volume] in Blood by Automated count 406 10*3/uL 130-472 N [facility] Platelet mean volume [Entitic volume] in Blood 8.9 fL 9.1-13. 1 Below low normal [facility] Neutrophils/100 leukocytes in Blood by Automated count 71.2 % 41- 77 N [facility] Neutrophils [#/volume] in Blood by Automated count 7.4 U 1.7-7.6 N [facility] Lymphocytes/100 leukocytes in Blood by Automated count 18.5 % 14- 46 N [facility] Lymphocytes [#/volume] in Blood by Automated count 1.9 U 0.6-4.6 N [facility] Monocytes/100 leukocytes in Blood by Automated count 6.0 % 4-12 N [facility] Monocytes [#/volume] in Blood by Automated count 0.6 U 0.2-1.2 N [facility] Eosinophils/100 leukocytes in Blood by Automated count 1.1 % 0-7 N [facility] Eosinophils [#/volume] in Blood by Automated count 0.1 U 0.0-0.5 N [facility] Basophils/100 leukocytes in Blood by Automated count 0.6 % 0.4-1 .3 N [facility] Basophils [#/volume] in Blood by Automated count 0.1 U 0.0-0.2 N [facility] NUCLEATED RED BLOOD CELL 0 % [facility] NUCLEATED RED BLOOD CELL# 0 U [facility] Immature granulocytes [Presence] in Blood by Automated count 0-2 Above high normal [facility] Immature granulocytes [#/volume] in Blood by Automated count 0.3 U 0-0.1 Above high normal [facility] Manual Differential panel - Blood Manual Diff Added [facility] ID Date Data Source [id number] 06/13/2020 07:04:00 AM [facility] @06/13/20 0648: MANUAL DIFF added. RFLXG = DIFF. @06/13/20 0648: MANUAL DIFF added. RFLXG = DIFF. Name Value Range Interpretation Code Description Data Evelin rce(s) Supporting Document(s) Cells counted [#] 100 [facility] Neutrophils [#/volume] in Blood by Manual count 83 % 41-77 Above high normal [facility] Lymphocytes [#/volume] in Blood by Manual count 14 % 14-46 N [facility] Monocytes [#/volume] in Blood by Manual count 2 % 4-12 B elow low normal [facility] Eosinophils [#/volume] in Blood by Manual count 1 % 0-7 N [facility] Platelets [#/volume] in Blood by Estimate APPEARS NORMAL NORMAL [facility] Morphology [Interpretation] in Blood Narrative APPEARS NORMAL NORMAL [facility] ID Date Data Source [id number] 06/12/2020 02:24:00 PM [facility] Name: JAGJIT IBARRA : 1960 Age: 60 MR#: [id number] Admit Date: 06/08/20 Provider: Unique Ford Room #: 292 Consulting Provider: Armaan Reyna MD; [facility]; Joanna Alfredo; Minh Dumas MD; [...] Admit to Inpatient, Acute [STATUS] Routine Location: [facility] Primary diagnosis: Chest pain Isolation: Droplet Status: [...] % (Auto) 68.2, Lymph % (Auto) 19.6, [place] % (Auto) 6.8, Eos % (Auto) 1.0, [...] left shoulder, not elsewhere classified SNOMED Code(s): [id number] A P Free Text/Narrative :: 60 y/o male with PMH of 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 Ferreira from [facility] Cardiology saw the patient and recommended the following: - 4-6 weeks total of ABX - Daily blood cultures x 3 days - Repeat blood cultures the day after ABX are completed - If daily blood cultures are positive or positive after completing ABX, patient will be required to have ICD removed (he is scheduled to see typesetter apprentice regarding ICD next week) - If blood cultures sterilize immediately, c omplete antibiotic course and reassess 2. Chest pain - Resolved; continue telemetry - TSH WNL, repeat troponin negative 3. Status post AICD pacemaker Will see typesetter apprentice next week 4. Left shoulder pain and restriction of movement pt was requiring iv morphine during hospital stay will continue PO tylenol and Tramadol will f/u x ray and with ortho service 5. History of pulmonary embolism/DVT - Continue Eliquis 6. Status post Laurel filter placement 7. Atrial fibrillation - Continue [...] will need to transfer the patient to [place] for in-patient DANIELE. Patient scheduled to see typesetter apprentice at [facility] cardiology? for generator change of pacemaker [...] MD> Christo Llamas MD 06/12/20 145 D: [facility] 06/12/20 142 T: [facility] 06/12/201423 CC: Name Value Range Interpretation Code Description Data Evelin rce(s) Supporting Document(s) ID Date Data Source [id number] 06/12/2020 12:29:00 PM EST [facility] ([facility]) Name Value Range Interpretation Code Description Data Evelin rce(s) Supporting Document(s) .Scanned Labs Laboratory test result [facility] ([facility]) ID Date Data Source [id number] 06/12/2020 10:52:00 AM EST [facility] Name: JAGJIT IBARRA : 1960 Age: 60 MR#: [id number] Admit Date: 06/08/20 Provider: Anthony Gonzalez MD Room #: 292 Consulting Provider: Armaan Reyna MD; [facility]; Joanna Alfredo; Minh Dumas MD; [...] % (Auto) 68.2, Lymph % (Auto) 19.6, [place] % (Auto) 6.8, Eos % (Auto) 1.0, [...] rce(s) Supporting Document(s) ID Date Data Source [id number] 06/12/2020 07:44:00 AM EST [facility] @06/12/20 0735: MANUAL DIFF added. RFLXG = DIFF. @06/12/20 0735: MANUAL DIFF added. RFLXG = DIFF. Name Value Range Interpretation Code Description Data Evelin rce(s) Supporting Document(s) Urea nitrogen [Mass/volume] in Serum or Plasma 10 mg/dL 9-23 N [facility] Sodium [Moles/volume] in Serum or Plasma 138 mmol/L 132-146 N [facility] Potassium [Moles/volume] in Serum or Plasma 4.0 mmol/L 3.5-5.5 N [facility] Chloride [Moles/volume] in Serum or Plasma 102 mmol/L 99-109 N [facility] Carbon dioxide, total [Moles/volume] in Serum or Plasma 29 mmol/L 20 -31 N [facility] Anion gap in Serum or Plasma 11 mmol/L 8-16 N [facility] Glucose [Mass/volume] in Serum or Plasma 225 mg/dL 74-106 Above high normal [facility] Creatinine 0.9 mg/dL 0.5-1.1 [facility] Glomerular filtration rate/1.73 sq M.pre dicted [Volume Rate/Area] in Serum or Plasma Greater Than 60 ABOVE 60 [facility] Alanine aminotransferase [Enzymatic acti vity/volume] in Serum or Plasma by With P-5'-P 28 U/L 10-49 N [facility] ital Aspartate aminotransferase [Enzymatic ac tivity/volume] in Serum or Plasma by With P-5'-P 19 U/L 0-33 N [facility] pital Alkaline phosphatase [Enzymatic activity/volume] in Serum or Plasma 118 U/L 45-129 N [facility] Calcium [Mass/volume] in Serum or Plasma 9.2 mg/dL 8.5-10.1 [facility] Bilirubin.total [Mass/volume] in Serum or Plasma 0.6 mg/dL 0.3-1.2 [facility] Albumin [Mass/volume] in Serum or Plasma by Bromocresol purple (BCP) dye binding method 2.5 g/dL 3.2-4.8 Below low normal [facility] Protein [Mass/volume] in Serum or Plasma 7.2 g/dL 5.7-8.2 [facility] ID Date Data Source [id number] 06/12/2020 08:04:00 AM EST [facility] @06/12/20 0735: MANUAL DIFF added. RFLXG = DIFF. @06/12/20 0735: MANUAL DIFF added. RFLXG = DIFF. Name Value Range Interpretation Code Description Data Evelin rce(s) Supporting Document(s) Leukocytes [#/volume] in Blood by Automated count 9.8 10*3/uL 4.45-10 .71 N [facility] Erythrocytes [#/volume] in Blood by Automated count 4.06 10*6/uL 4.3-6.1 Below low normal [facility] Hemoglobin [Moles/volume] in Blood 12.0 g/dL 13-18 Below low no rmal [facility] Hematocrit [Volume Fraction] of Blood by Automated count 35.2 % 42-52 Below low normal [facility] Erythrocyte mean corpuscular volume [Ent itic volume] in Cord blood by Automated count 86.7 fL 80-96 N [facility] ital Erythrocyte mean corpuscular hemoglobin [Entitic mass] by Automated count 29.6 pg 27-31 [facility] mean corpuscular hemoglobin concentration [Mass/volume] in Cord blood 34.1 g/dL 33-37 N [facility] ital Erythrocyte distribution width [Entitic volume] by Automated count 12 % 11-15 N [facility] Platelets [#/volume] in Blood by Automated count 357 10*3/uL 130-472 N [facility] Platelet mean volume [Entitic volume] in Blood 8.6 fL 9.1-13. 1 Below low normal [facility] Neutrophils/100 leukocytes in Blood by Automated count 68.2 % 41- 77 N [facility] Neutrophils [#/volume] in Blood by Automated count 6.7 U 1.7-7.6 N [facility] Lymphocytes/100 leukocytes in Blood by Automated count 19.6 % 14- 46 N [facility] Lymphocytes [#/volume] in Blood by Automated count 1.9 U 0.6-4.6 N [facility] Monocytes/100 leukocytes in Blood by Automated count 6.8 % 4-12 N [facility] Monocytes [#/volume] in Blood by Automated count 0.7 U 0.2-1.2 N [facility] Eosinophils/100 leukocytes in Blood by Automated count 1.0 % 0-7 N [facility] Eosinophils [#/volume] in Blood by Automated count 0.1 U 0.0-0.5 N [facility] Basophils/100 leukocytes in Blood by Automated count 0.4 % 0.4-1 .3 N [facility] Basophils [#/volume] in Blood by Automated count 0.0 U 0.0-0.2 N [facility] NUCLEATED RED BLOOD CELL 0 % [facility] NUCLEATED RED BLOOD CELL# 0 U [facility] Immature granulocytes [Presence] in Blood by Automated count 0-2 Above high normal [facility] Immature granulocytes [#/volume] in Blood by Automated count 0.4 U 0-0.1 Above high normal [facility] Manual Differential panel - Blood Manual Diff Added [facility] ID Date Data Source [id number] 06/12/2020 08:04:00 AM EST [facility] @06/12/20 0735: MANUAL DIFF added. RFLXG = DIFF. @06/12/20 0735: MANUAL DIFF added. RFLXG = DIFF. Name Value Range Interpretation Code Description Data Evelin rce(s) Supporting Document(s) Cells counted [#] 100 [facility] Neutrophils [#/volume] in Blood by Manual count 75 % 41-77 N [facility] Lymphocytes [#/volume] in Blood by Manual count 16 % 14-46 N [facility] Monocytes [#/volume] in Blood by Manual count 7 % 4-12 N [facility] Eosinophils [#/volume] in Blood by Manual count 2 % 0-7 N [facility] Platelets [#/volume] in Blood by Estimate APPEARS NORMAL NORMAL [facility] Morphology [Interpretation] in Blood Narrative APPEARS NORMAL NORMAL [facility] ID Date Data Source [id number] 06/11/2020 05:25:00 PM [facility] [address] [place] [address] [phone] NAME SEX PT STATUS ACCOUNT NUMBER JAGJIT IBARRA ADM IN [id number] ORDERING PHYSICIAN LOCATION MEDICAL RECORD NO. Christo Llamas MD [id number] ATTENDING PHYSICIAN DATE OF DATE OF EXAM/TIME [...] Trans Dt/Tm: Trans by: DT Prt Dt/Tm: [id number]: Total DLP = 0.00 mGy-cm Fluoroscopy Time (in secs): Name Value Range Interpretation Code Description Data Evelin rce(s) Supporting Document(s) ID Date Data Source [id number] 06/11/2020 03:41:00 PM [facility] Name: JAGJIT IBARRA : 1960 Age: 60 MR#: [id number] Admit Date: 06/08/20 Provider: Christo Llamas MD Room #: 292 Consulting Provider: Armaan Reyna MD; [facility]; Joanna Alfredo; Minh Dumas MD; Anthony Gonzalez MD; Kd De La Rosa PA-C; Whit Pathak; Sydni Keita MD; Eddie Wright MD; Raul Magallon MD Dictation Date: 0 06/11/20 Progress Note Subjective-ROS Date of service Date of service:: 06/11/20 Review of Systems Attestation/Length Of Stay: 06/08/20 13:50 Admit to Inpatient, Acute [STATUS] Routine Location: [facility] Primary diagnosis: Chest pain Isolation: Droplet Status: [...] (Auto) 65.4, Lymph % (A uto) 21.6, [place] % (Auto) 6.5, Eos % (Auto) 1.6, [...] for chest pain. Patient had extensive anteroapical NE in 2013 requiring multiple stents, underwent ICD [...] hospital or can transfer the patient to [place] for in-patient - Patient has an appointment on 06/13 at [facility] Cardiology in [place] - Blood cultures from 06/08, 06/09, 06/10 were negative; - Dr. Ferreira from [facility] Cardio logy saw the patient and recommended the following: - 4-6 weeks total of ABX - Daily blood cultures x 3 days - Repeat blood cultures the day after ABX are completed - If daily blood cultures are positive or positive after completing ABX, patient will be required to have ICD removed (he is scheduled to see typesetter apprentice regarding ICD next week) - If blood cultures sterilize immediately, complete antibiotic course and reassess 2. Chest pain Resolved continue telemetry and monitoring TSH WNL, repeat troponin negative 3. Status post AICD pacemaker Will see typesetter apprentice next week 4. Left shoulder pain and restriction of movement pt was requiring iv morphine during hospital stay will continue PO tylenol and Tramadol will f/u x ray and with ortho service 5. History of pulmonary embolism/DVT - Continue Eliquis 6. Status post Laurel filter placement 7. Atrial fibrillation - Continue [...] will need to transfer the patient to [place] for in-patient DANIELE as the outcome of this dictates the course of treatment. Patient scheduled to see typesetter apprentice at [facility] cardiology? for generator change of pacemaker [...] rce(s) Supporting Document(s) ID Date Data Source [id number] 06/11/2020 08:37:00 AM EST [facility] @06/11/20 0830: MANUAL DIFF added. RFLXG = DIFF. @06/11/20 0830: MANUAL DIFF added. RFLXG = DIFF. Name Value Range Interpretation Code Description Data Evelin rce(s) Supporting Document(s) Urea nitrogen [Mass/volume] in Serum or Plasma 11 mg/dL 9-23 N [facility] Sodium [Moles/volume] in Serum or Plasma 137 mmol/L 132-146 [facility] Potassium [Moles/volume] in Serum or Plasma 4.2 mmol/L 3.5-5.5 N [facility] Chloride [Moles/volume] in Serum or Plasma 102 mmol/L 99-109 [facility] Carbon dioxide, total [Moles/volume] in Serum or Plasma 28 mmol/L 20 -31 [facility] Anion gap in Serum or Plasma 11 mmol/L 8-16 [facility] Glucose [Mass/volume] in Serum or Plasma 236 mg/dL 74-106 Above high normal [facility] Creatinine 0.9 mg/dL 0.5-1.1 [facility] Glomerular filtration rate/1.73 sq M.pre dicted [Volume Rate/Area] in Serum or Plasma Greater Than 60 ABOVE 60 [facility] Alanine aminotransferase [Enzymatic acti vity/volume] in Serum or Plasma by With P-5'-P 33 U/L 10-49 [facility] ital Aspartate aminotransferase [Enzymatic ac tivity/volume] in Serum or Plasma by With P-5'-P 18 U/L 0-33 [facility] pital Alkaline phosphatase [Enzymatic activity/volume] in Serum or Plasma 107 U/L 45-129 [facility] Calcium [Mass/volume] in Serum or Plasma 9.0 mg/dL 8.5-10.1 [facility] Bilirubin.total [Mass/volume] in Serum or Plasma 0.6 mg/dL 0.3-1.2 N [facility] Albumin [Mass/volume] in Serum or Plasma by Bromocresol purple (BCP) dye binding method 2.5 g/dL 3.2-4.8 Below low normal [facility] Protein [Mass/volume] in Serum or Plasma 6.5 g/dL 5.7-8.2 N [facility] ID Date Data Source [id number] 06/11/2020 09:40:00 AM EST [facility] @06/11/20 0830: MANUAL DIFF added. RFLXG = DIFF. @06/11/20 0830: MANUAL DIFF added. RFLXG = DIFF. Name Value Range Interpretation Code Description Data Evelin rce(s) Supporting Document(s) Leukocytes [#/volume] in Blood by Automated count 9.5 10*3/uL 4.45-10 .71 N [facility] Erythrocytes [#/volume] in Blood by Automated count 4.16 10*6/uL 4.3-6.1 Below low normal [facility] Hemoglobin [Moles/volume] in Blood 11.9 g/dL 13-18 Below low no rmal [facility] Hematocrit [Volume Fraction] of Blood by Automated count 36.3 % 42-52 Below low normal [facility] Erythrocyte mean corpuscular volume [Ent itic volume] in Cord blood by Automated count 87.3 fL 80-96 N [facility] Erythrocyte mean corpuscular hemoglobin [Entitic mass] by Automated count 28.6 pg 27-31 N [facility] Erythrocyte mean corpuscular hemoglobin concentration [Mass/volume] in Cord blood 32.8 g/dL 33-37 Below low normal [facility] Erythrocyte distribution width [Entitic volume] by Automated count 12 % 11-15 N [facility] Platelets [#/volume] in Blood by Automated count 370 10*3/uL 130-472 N [facility] Platelet mean volume [Entitic volume] in Blood 9.1 fL 9.1-13.1 N [facility] Neutrophils/100 leukocytes in Blood by Automated count 65.4 % 41- 77 N [facility] Neutrophils [#/volume] in Blood by Automated count 6.2 U 1.7-7.6 N [facility] Lymphocytes/100 leukocytes in Blood by Automated count 21.6 % 14- 46 N [facility] Lymphocytes [#/volume] in Blood by Automated count 2.1 U 0.6-4.6 N [facility] Monocytes/100 leukocytes in Blood by Automated count 6.5 % 4-12 N [facility] Monocytes [#/volume] in Blood by Automated count 0.6 U 0.2-1.2 N [facility] Eosinophils/100 leukocytes in Blood by Automated count 1.6 % 0-7 N [facility] Eosinophils [#/volume] in Blood by Automated count 0.2 U 0.0-0.5 N [facility] Basophils/100 leukocytes in Blood by Automated count 0.7 % 0.4-1 .3 N [facility] Basophils [#/volume] in Blood by Automated count 0.1 U 0.0-0.2 N [facility] NUCLEATED RED BLOOD CELL 0 % [facility] NUCLEATED RED BLOOD CELL# 0 U [facility] Immature granulocytes [Presence] in Blood by Automated count 0-2 Above high normal [facility] Immature granulocytes [#/volume] in Blood by Automated count 0.4 U 0-0.1 Above high normal [facility] Manual Differential panel - Blood Manual Diff Added [facility] ID Date Data Source [id number] 06/11/2020 09:40:00 AM EST [facility] @06/11/20 0830: MANUAL DIFF added. RFLXG = DIFF. @06/11/20 0830: MANUAL DIFF added. RFLXG = DIFF. Name Value Range Interpretation Code Description Data Evelin rce(s) Supporting Document(s) Cells counted [#] 100 [facility] Neutrophils [#/volume] in Blood by Manual count 57 % 41-77 N [facility] Band form neutrophils [#/volume] in Blood by Manual count 3 % 0-5 N [facility] Lymphocytes [#/volume] in Blood by Manual count 23 % 14-46 N [facility] Monocytes [#/volume] in Blood by Manual count 8 % 4-12 N [facility] Eosinophils [#/volume] in Blood by Manual count 2 % 0-7 N [facility] Mononuclear cells atypical [#/volume] in Blood by Manual count 7 0-5 Above high normal [facility] Platelets [#/volume] in Blood by Estimate APPEARS NORMAL NORMAL [facility] Morphology [Interpretation] in Blood Narrative APPEARS NORMAL NORMAL [facility] ID Date Data Source [id number] 06/10/2020 09:33:00 AM EST [facility] Name: JAGJIT IBARRA : 1960 Age: 60 MR#: [id number] Admit Date: 06/08/20 Provider: Christo Llamas MD Room #: 292 Consulting Provider: [facility]; Minh Dumas MD ictation Date: 06/10/20 Progress Note Subjective-ROS Date of service Date of service:: 06/10/20 Review of Systems Attestation/Length Of Stay: 06/08/20 13:50 Admit to Inpatient, Acute [STATUS] Routine Location: [facility] Primary diagnosis: Chest pain Isolation: Droplet Status: [...] for chest pain. Patient had extensive anteroapical NE in 2013 requiring multiple stents, underwent ICD [...] hospital or can transfer the patient to [place] for in-patient - Patient has an appointment on 06/13 at [facility] Cardiology in [place] - Blood cultures from 06/08 were negative; blood cultures for 06/09 pending - Dr. Ferreira from [facility] Cardiology saw the patient and recommended the following: - 4-6 weeks total of ABX - Daily blood cultures x 3 days - Repeat blood cultures the day after ABX are completed - If daily blood cultures are positive or positive after completing ABX, patient will be required to have ICD removed (he is scheduled to see typesetter apprentice regarding ICD next week) - If blood cultures sterilize immediately, complete antibiotic course and reassess 2. Chest pain Resolved continue telemetry and monitoring TSH WNL, repeat troponin negative 3. Status post AICD pacemaker - Will see typesetter apprentice next week 4. Coronary artery disease - Continue aspirin 5. History of pulmonary embolism/DVT - Continue Eliquis 6. Status post Laurel filter placement 7. Atrial fibrillation - Continue [...] will need to transfer the patient to [place] for in-patient DANIELE as the outcome of this dictates the course of treatment. Patient scheduled to see typesetter apprentice at [facility] cardiology? for generator change of pacemaker [...] rce(s) Supporting Document(s) ID Date Data Source [id number] 06/15/2020 07:45:00 AM [facility] Name Value Range Interpretation Code Description Data Evelin rce(s) Supporting Document(s) Bacteria identified in Blood by Culture [facility] NO GROWTH AFTER 5 DAYS ID Date Data Source [id number] 06/10/2020 08:43:00 AM [facility] @06/10/20 0811: MANUAL DIFF added. RFLXG = DIFF. @06/10/20 0811: MANUAL DIFF added. RFLXG = DIFF. Name Value Range Interpretation Code Description Data Evelin rce(s) Supporting Document(s) Urea nitrogen [Mass/volume] in Serum or Plasma 11 mg/dL 9-23 N [facility] Sodium [Moles/volume] in Serum or Plasma 136 mmol/L 132-146 N [facility] Potassium [Moles/volume] in Serum or Plasma 4.1 mmol/L 3.5-5.5 [facility] Chloride [Moles/volume] in Serum or Plasma 102 mmol/L 99-109 [facility] Carbon dioxide, total [Moles/volume] in Serum or Plasma 27 mmol/L 20 -31 N [facility] Anion gap in Serum or Plasma 11 mmol/L 8-16 N [facility] Glucose [Mass/volume] in Serum or Plasma 232 mg/dL 74-106 Above high normal [facility] Creatinine 1.0 mg/dL 0.5-1.1 [facility] Glomerular filtration rate/1.73 sq M.pre dicted [Volume Rate/Area] in Serum or Plasma Greater Than 60 ABOVE 60 [facility] Alanine aminotransferase [Enzymatic acti vity/volume] in Serum or Plasma by With P-5'-P 42 U/L 10-49 N [facility] ital Aspartate aminotransferase [Enzymatic ac tivity/volume] in Serum or Plasma by With P-5'-P 21 U/L 0-33 N [facility] pital Alkaline phosphatase [Enzymatic activity/volume] in Serum or Plasma 114 U/L 45-129 N [facility] Calcium [Mass/volume] in Serum or Plasma 8.7 mg/dL 8.5-10.1 N [facility] Bilirubin.total [Mass/volume] in Serum or Plasma 0.6 mg/dL 0.3-1.2 [facility] Albumin [Mass/volume] in Serum or Plasma by Bromocresol purple (BCP) dye binding method 2.6 g/dL 3.2-4.8 Below low normal [facility] Protein [Mass/volume] in Serum or Plasma 6.5 g/dL 5.7-8.2 [facility] ID Date Data Source [id number] 06/10/2020 09:35:00 AM EST [facility] @06/10/20 0811: MANUAL DIFF added. RFLXG = DIFF. @06/10/20 0811: MANUAL DIFF added. RFLXG = DIFF. Name Value Range Interpretation Code Description Data Evelin rce(s) Supporting Document(s) Leukocytes [#/volume] in Blood by Automated count 9.2 10*3/uL 4.45-10 .71 [facility] Erythrocytes [#/volume] in Blood by Automated count 4.21 10*6/uL 4.3-6.1 Below low normal [facility] Hemoglobin [Moles/volume] in Blood 12.2 g/dL 13-18 Below low no rmal [facility] Hematocrit [Volume Fraction] of Blood by Automated count 37.0 % 42-52 Below low normal [facility] Erythrocyte mean corpuscular volume [Ent itic volume] in Cord blood by Automated count 87.9 fL 80-96 N [facility] ital Erythrocyte mean corpuscular hemoglobin [Entitic mass] by Automated count 29.0 pg 27-31 N [facility] l Erythrocyte mean corpuscular hemoglobin concentration [Mass/volume] in Cord blood 33.0 g/dL 33-37 N [facility] ital Erythrocyte distribution width [Entitic volume] by Automated count 12 % 11-15 N [facility] Platelets [#/volume] in Blood by Automated count 347 10*3/uL 130-472 N [facility] Platelet mean volume [Entitic volume] in Blood 9.2 fL 9.1-13.1 N [facility] Neutrophils/100 leukocytes in Blood by Automated count 66.8 % 41- 77 N [facility] Neutrophils [#/volume] in Blood by Automated count 6.1 U 1.7-7.6 N [facility] Lymphocytes/100 leukocytes in Blood by Automated count 18.4 % 14- 46 N [facility] Lymphocytes [#/volume] in Blood by Automated count 1.7 U 0.6-4.6 N [facility] Monocytes/100 leukocytes in Blood by Automated count 8.4 % 4-12 N [facility] Monocytes [#/volume] in Blood by Automated count 0.8 U 0.2-1.2 N [facility] Eosinophils/100 leukocytes in Blood by Automated count 1.8 % 0-7 N [facility] Eosinophils [#/volume] in Blood by Automated count 0.2 U 0.0-0.5 N [facility] Basophils/100 leukocytes in Blood by Automated count 0.7 % 0.4-1 .3 N [facility] [facility] Bas[facility] [#/volume] in Blood by Automated count 0.1 U 0.0-0.2 [facility] NUCLEATED RED BLOOD CELL 0 % [facility] NUCLEATED RED BLOOD CELL# 0 U [facility] Immature granulocytes [Presence] in Blood by Automated count 0-2 Above high normal [facility] Immature granulocytes [#/volume] in Blood by Automated count 0.4 U 0-0.1 Above high normal [facility] Manual Differential panel - Blood Manual Diff Added [facility] ID Date Data Source [id number] 06/10/2020 09:35:00 AM EST [facility] @06/10/20 0811: MANUAL DIFF added. RFLXG = DIFF. @06/10/20 0811: MANUAL DIFF added. RFLXG = DIFF. Name Value Range Interpretation Code Description Data Evelin rce(s) Supporting Document(s) Cells counted [#] 100 [facility] Neutrophils [#/volume] in Blood by Manual count 62 % 41-77 N [facility] Band form neutrophils [#/volume] in Blood by Manual count 3 % 0-5 N [facility] Lymphocytes [#/volume] in Blood by Manual count 25 % 14-46 N [facility] Monocytes [#/volume] in Blood by Manual count 6 % 4-12 N [facility] Metamyelocytes [#/volume] in Blood by Manual count 1 % 0-0 Above high normal [facility] Mononuclear cells atypical [#/volume] in Blood by Manual count 3 0-5 N [facility] Platelets [#/volume] in Blood by Estimate APPEARS NORMAL NORMAL [facility] Morphology [Interpretation] in Blood Narrative APPEARS NORMAL NORMAL [facility] ID Date Data Source [id number] 06/09/2020 03:07:00 PM EST [facility] Name: JAGJIT IBARRA : 1960 Age: 60 MR#: [id number] Admit Date: 06/08/20 Provider: Unique Ford Room #: 292 Consulting Provider: [facility] Cardiology; Minh Dumas MD ictation Date: 06/09/20 [...] Admit to Inpatient, Acute [STATUS] Routine Location: [facility] Primary diagnosis: Chest pain Isolation: Droplet Status: [...] % (Auto) 69.6, Lymph % (Auto) 17.9, [place] % (Auto) 8.6, Eos % (Auto) 1.6, [...] for chest pain. Patient had extensive anteroapical NE in 2013 requiring multiple stents, underwent ICD [...] hospital or can transfer the patient to [place] for in-patient - Patient has an appointment on 06/13 at [facility] Cardiology in [place] - Blood cultures from 06/08 were negative; blood cultures for 06/09 pending - Dr. Ferreira from [facility] Cardiology saw the patient yesterday morning and recommended the following: - 4-6 weeks total of ABX - Daily blood cultures x 3 days - Repeat blood cultures the day after ABX are completed - If daily blood cultures are positive or positive after completing ABX, patient will be required to have ICD removed (he is scheduled to see typesetter apprentice regarding ICD next week) - If blood cultures sterilize immediately, complete antibiotic course and reassess 3. Status post AICD pacemaker - Will see typesetter apprentice next week 4. Coronary artery disease - Continue aspirin 5. History of pulmonary embolism/DVT - Continue Eliquis 6. Status post Laurel filter placement 7. Atrial fibrillation - Continue [...] will need to transfer the patient to [place] for in-patient DANIELE as the outcome of this dictates the course of treatment. Patient scheduled to see typesetter apprentice at [facility] cardiology? for generator change of pacemaker [...] MD> Christo Llamas MD 06/09/20 172 D: [facility] 06/09/20 1507 T: [facility] 06/09/20 1507 CC: Name Value Range Interpretation Code Description Data Evelin rce(s) Supporting Document(s) ID Date Data Source [id number] 06/09/2020 09:48:00 AM EST [facility] ([facility] C ardiology) Name Value Range Interpretation Code Description Data Evelin rce(s) Supporting Document(s) .Scanned Labs Laboratory test result MED ENT ([facility] Cardiology) ID Date Data Source [id number] 06/14/2020 06:05:00 AM [facility] Name Value Range Interpretation Code Description Data Evelin rce(s) Supporting Document(s) Bacteria identified in Blood by Culture [facility] NO GROWTH AFTER 5 DAYS ID Date Data Source [id number] 06/09/2020 06:16:00 AM [facility] Name Value Range Interpretation Code Description Data Evelin rce(s) Supporting Document(s) Leukocytes [#/volume] in Blood by Automated count 10.7 10*3/uL 4.45-1 0.71 N [facility] Erythrocytes [#/volume] in Blood by Automated count 3.94 10*6/uL 4.3-6.1 Below low normal [facility] Hemoglobin [Moles/volume] in Blood 11.5 g/dL 13-18 Below low no rmal [facility] Hematocrit [Volume Fraction] of Blood by Automated count 33.8 % 42-52 Below low normal [facility] Erythrocyte mean corpuscular volume [Ent itic volume] in Cord blood by Automated count 85.8 fL 80-96 No range defined, or normal ranges don't apply [facility] Repeated by: Chacha Castillo 06/09/20 061 5.Result Confirmation: 85.8 fl Erythrocyte mean corpuscular hemoglobin [Entitic mass] by Automated count 29.2 pg 27-31 N [facility] l Erythrocyte mean corpuscular hemoglobin concentration [Mass/volume] in Cord blood 34.0 g/dL 33-37 N [facility] Erythrocyte distribution width [Entitic volume] by Automated count 12 % 11-15 N [facility] Platelets [#/volume] in Blood by Automated count 275 10*3/uL 130-472 No range defined, or normal ranges don't apply [facility]ital Repeated by: Chacha Castillo 06/09/20 061 5.Result Confirmation: 264 10e3/ul Platelet mean volume [Entitic volume] in Blood 9.4 fL 9.1-13.1 N [facility] Neutrophils/100 leukocytes in Blood by Automated count 69.6 % 41- 77 N [facility] Neutrophils [#/volume] in Blood by Automated count 7.4 U 1.7-7.6 N [facility] Lymphocytes/100 leukocytes in Blood by Automated count 17.9 % 14- 46 N [facility] Lymphocytes [#/volume] in Blood by Automated count 1.9 U 0.6-4.6 N [facility] Monocytes/100 leukocytes in Blood by Automated count 8.6 % 4-12 N [facility] Monocytes [#/volume] in Blood by Automated count 0.9 U 0.2-1.2 N [facility] Eosinophils/100 leukocytes in Blood by Automated count 1.6 % 0-7 N [facility] Eosinophils [#/volume] in Blood by Automated count 0.2 U 0.0-0.5 N [facility] Basophils/100 leukocytes in Blood by Automated count 0.4 % 0.4-1 .3 N [facility] Basophils [#/volume] in Blood by Automated count 0.0 U 0.0-0.2 N [facility] NUCLEATED RED BLOOD CELL 0 % [facility] NUCLEATED RED BLOOD CELL# 0 U [facility] Immature granulocytes [Presence] in Blood by Automated count 0-2 N [facility] Immature granulocytes [#/volume] in Blood by Automated count 0.2 U 0-0.1 Above high normal [facility] Manual Differential panel - Blood NO [facility] ID Date Data Source [id number] 06/09/2020 06:27:00 AM EST [facility] Name Value Range Interpretation Code Description Data Evelin rce(s) Supporting Document(s) Urea nitrogen [Mass/volume] in Serum or Plasma 9 mg/dL 9-23 [facility] Sodium [Moles/volume] in Serum or Plasma 136 mmol/L 132-146 [facility] Potassium [Moles/volume] in Serum or Plasma 3.4 mmol/L 3.5-5.5 Below low normal [facility] Chloride [Moles/volume] in Serum or Plasma 103 mmol/L 99-109 [facility] Carbon dioxide, total [Moles/volume] in Serum or Plasma 25 mmol/L 20 -31 [facility] Anion gap in Serum or Plasma 11 mmol/L 8-16 [facility] Glucose [Mass/volume] in Serum or Plasma 247 mg/dL 74-106 Above high normal [facility] Creatinine 1.0 mg/dL 0.5-1.1 [facility] Glomerular filtration rate/1.73 sq M.pre dicted [Volume Rate/Area] in Serum or Plasma Greater Than 60 ABOVE 60 [facility] Alanine aminotransferase [Enzymatic acti vity/volume] in Serum or Plasma by With P-5'-P 46 U/L 10-49 N [facility] ital Aspartate aminotransferase [Enzymatic ac tivity/volume] in Serum or Plasma by With P-5'-P 22 U/L 0-33 [facility] pital Alkaline phosphatase [Enzymatic activity/volume] in Serum or Plasma 109 U/L 45-129 [facility] Calcium [Mass/volume] in Serum or Plasma 8.7 mg/dL 8.5-10.1 [facility] Bilirubin.total [Mass/volume] in Serum or Plasma 0.7 mg/dL 0.3-1.2 [facility] Albumin [Mass/volume] in Serum or Plasma by Bromocresol purple (BCP) dye binding method 2.5 g/dL 3.2-4.8 Below low normal [facility] Protein [Mass/volume] in Serum or Plasma 6.6 g/dL 5.7-8.2 [facility] ID Date Data Source [id number] 06/09/2020 06:20:00 AM [facility] Name Value Range Interpretation Code Description Data Evelin rce(s) Supporting Document(s) Magnesium [Mass/volume] in Serum or Plasma 1.6 mg/dL 1.3-2.7 [facility] ID Date Data Source [id number] 06/08/2020 10:36:00 PM [facility] Name: JAGJIT IBARRA : 1960 Age: 60 MR#: [id number] Admit Date: 06/08/20 Provider: Minh Dumas MD [...] % (Auto) 69.7, Lymph % (Auto) 15.6, [place] % (Auto) 11.0, Eos % (Auto) 1.7, [...] medical history: Diabetes, DVT, IVC filter, hypertension, NE, CVA Past surgical history: Knee surgery, spinal fusion with hardware, pacemaker Allergies: No known antibiotic allergies Family history: Both mom and dad had cancer Social history: He enjoys playing football, he is engaged, he has 2 children and 10 grandchildren, he was born in [place], denies drug use, has a 6 pack of beer on Sundays, quit smoking 11 days ago,denies ever leaving the [place] in his lifetime, has a pipe cat at home, never been incarcerated, never lived in a homeless prison, lives alone, 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 Physical exam Vitals: [...] likely related to fatty infiltration as discussed [id number] contrast-enhanced CT or sonography suggested for further [...] rce(s) Supporting Document(s) ID Date Data Source [id number] 06/08/2020 04:33:00 PM [facility] Pharmacy Department JAGJIT IBARRA : 1960 Date: 06/08/20 [id number] Pharm- Kinetic Note Vancomycin - General Information Reason for note:: Follow-Up - Concurrently Taking Concurrently Taking:: Ceftriaxone - 2g iv q12h - Medications/Allergies Current Medications: Current Medications Acetaminophen (Acetaminophen 325 Mg Tab) 650 mg PO Q6H PRN PRN Reason: FEVER Last Admin: 06/08/20 04:32 Dose: 650 mg Documented by: Amiodarone HCl (Amiodarone 200 Mg Tablet) 200 mg PO BID [facility] Last Admin: 06/08/20 08:26 Dose: 200 mg Documented by: Apixaban (Apixaban 5 Mg Tablet) 5 mg PO BID [facility] Last Admin: 06/08/20 08:27 Dose: 5 mg Documented by: Aspirin (Aspirin Chew 81 Mg) 81 mg PO DAILY [facility] Last Admin: 06/08/20 08:27 Dose: 81 mg Documented by: Atorvastatin Calcium (Atorvastatin Calcium 40 Mg Tablet) 80 mg PO HS [facility] Last Admin: 06/07/20 21:41 Dose: 80 mg Documented by: Carvedilol (Carvedilol 6.25 Mg Tablet) 25 mg PO BIDWM [facility] Last Admin: 06/08/20 08:25 Dose: 25 mg Documented by: Cholecalciferol (Cholecalciferol (Vitamin D3) 1,000 Units Tablet) 1,000 units PO DAILY [facility] Last Admin: 06/08/20 08:27 Dose: 1,000 units Documented by: Cyanocobalamin (Cyanocobalamin 1,000 Mcg Tablet) 500 mcg PO DAILY [facility] Last Admin: 06/08/20 08:28 Dose: 500 mcg Documented by: Duloxetine HCl (Duloxetine Hcl 30 Mg Capsule.Dr) 60 mg PO DAILY [facility] Last Admin: 06/08/20 08:29 Dose: 60 mg Documented by: Fish Oil ([place]- 3/Dha/Epa/Fish Oil 1,000 Mg Capsule) 1,000 mg PO DAILY [facility] Last Admin: 06/08/20 08:30 Dose: 1,000 mg Documented by: Folic Acid (Folic Acid 1 Mg Tablet) 1 mg PO DAILY [facility] Last Admin: 06/08/20 08:29 Dose: 1 mg Documented by: Gabapentin (Gabapentin 300 Mg Capsule) 600 mg PO TID [facility] Last Admin: 06/08/20 13:56 Dose: 600 mg Documented by: Sodium Chloride (Ns 0.9%) 1,000 mls @ 75 mls/hr IV .[id number] [facility] Last Admin: 06/08/20 14:50 Dose: 75 mls/hr Documented by: Vancomycin HCl (Vancomycin/Water For Inj (Peg)) 1.25 gm in 250 mls @ 166.667 mls/hr IV Q12H [facility] Last Admin: 06/08/20 16:19 Dose: 166.7 mls/hr Documented by: Ceftriaxone Sodium/Dextrose (Rocephin 2gm (Premix) Piggyback) 2 gm in 50 mls @ 100 mls/hr IV DAILY [facility] Last Infusion: 06/08/20 10:35 Dose: Infused Documented by: Insulin Human Lispro (Insulin Human Lispro (100 Units/Ml) 3 Ml Vial) 0 units SQ AC HS/SLIDING SCALESCH Last Admin: 06/08/20 12:40 Dose: 6 units Documented by: Metformin HCl (Metformin Hcl 500 Mg Tablet) 1,000 mg PO BIDWM [facility] Morphine Sulfate (Morphine Sulfate 4 Mg/Ml Sdv) 4 mg IVP Q4H PRN PRN Reason: PAIN, SEVERE (SCORE 7-10/10) Nitroglycerin (Nitroglycerin 0.4 Mg Subl) 0.4 mg SL Q5M PRN PRN Reason: CHEST PAIN Pantoprazole Sodium (Pantoprazole Sodium 40 Mg Sdv) 40 mg IVP DAILY [facility] Last Admin: 06/08/20 08:31 Dose: 40 mg Documented by: Pharmacy Consult (Vancomycin Per Pha 1 Consult Ea) 1 consult IV . PRN PRN Reason: CONSULT Tamsulosin HCl (Tamsulosin Hcl 0.4 Mg Capsule) 0.4 mg PO DAILY [facility] Last Admin: 06/08/20 08:30 Dose: 0.4 mg Documented by: Trazodone HCl (Trazodone Hcl 50 Mg Tablet) 100 mg PO HS [facility] Last Admin: 06/07/20 21:41 Dose: 100 mg [...] rce(s) Supporting Document(s) ID Date Data Source [id number] 06/08/2020 03:27:00 PM [facility] Special Instructions: 1 HOUR PRIOR TO 16 00 DOSE Name Value Range Interpretation Code Description Data Evelin rce(s) Supporting Document(s) Vancomycin [Mass/volume] in Serum or Plasma --trough 10.5 ug/mL 10- N [facility] ID Date Data Source [id number] 06/08/2020 01:51:00 PM EST [facility] Name: JAGJIT IBARRA : 1960 Age: 60 MR#: [id number] Admit Date: 06/08/20 Provider: Unique Ford Room #: 292 Consulting Provider: [facility] Cardiology; Minh Dumas MD ictation Date: 06/08/20 [...] % (Auto) 69.7, Lymph % (Auto) 15.6, [place] % (Auto) 11.0, Eos % (Auto) 1.7, [...] to Cefazolin) - Dr. Ferreira from [facility] Cardiology saw the patient this morning and recommended the following: - 4-6 weeks total of ABX - Daily blood cultures x 3 days - Repeat blood cultures the day after ABX are completed - If daily blood cultures are positive or positive after completing ABX, patient will be required to have ICD removed (he is scheduled to see typesetter apprentice regarding ICD next week) - If blood cultures sterilize immediately, complete antibiotic course and reassess 3. Status post AICD pacemaker - Will see typesetter apprentice next week 4. Coronary artery disease - [...] endocarditis status. Awaiting return call from [facility] Cardiology. Will call again in the [...] SIGNATURE DA Report Cosigners: <<Signature on File>> Chrisot Llamas MD 06/08/202039 <Electronically signed by Christo Llamas MD> Christo Llamas MD 06/08/202039 D: DONNA 06/08/201350 T: DONNA 06/08/201350 CC: Name Value Range Interpretation Code Description Data Evelin rce(s) Supporting Document(s) ID Date Data Source [id number] 06/08/2020 10:36:00 AM [facility] CONSULTATION REPORT [facility]: [facility]RA [facility] 1960 [id number] AGE: 60 MR#: [id number] ADMITTING DATE: 06/08/[address]: Chilo Pineda MD DISCHARGE DATE: ATTENDING DR: Chilo Pineda MD ROOM#: 292 DATE CONSULT DICTATED 06/08/2020 CARDIOLOGY CONSULTATION June 08, 2020 HISTORY OF PRESENT ILLNESS The patient is a 60-year-old gentleman who presented to [facility] with some constant sharp chest discomfort. He had some left arm discomfort and diaphoresis. The patient has a history of known CAD (coronary artery disease) having had prior coronary stenting. He has a history of pulmonary embolus, DVT (deep venous thrombosis), Laurel filter placement, ICD implantation, as well as diabetes. The patient had been seen on the day of admission by cardiology andhad a reported syncopal episode from June 05 evaluated. There was no arrhythmia apparently noted although the generator was felt to be malfunctioning and he is being considered for generator change once he is elevated by the typesetter apprentice. The patient has had heavy alcohol use [...] had deep venous thrombosis and has a Laurel filter in place. He has hypertension, spinal [...] ICD, this could be removed by the typesetter apprentice when they see him next week, or [...] rce(s) Supporting Document(s) ID Date Data Source [id number] 06/08/2020 11:56:00 AM EST [facility] ([facility] C ardiology) Name Value Range Interpretation Code Description Data Evelin rce(s) Supporting Document(s) .Scanned Labs Laboratory test result MED ENT ([facility]) ID Date Data Source [id number] 06/08/2020 11:43:00 AM [facility] Therapy Department JAGJIT IBARRA OB: 1960 [id number] Attending: Chilo Pineda MD OT Inpatient Evaluation [...] Code Description Data Evlein rce(s) Supporting Document(s) ID Date Data Source [id number] 06/13/2020 11:45:00 AM [facility] Name Value Range Interpretation Code Description Data Evelin rce(s) Supporting Document(s) Bacteria identified in Blood by Culture [facility] NO GROWTH AFTER 5 DAYS ID Date Data Source [id number] 06/08/2020 12:12:00 PM [facility] Special Instructions: Lab may order repe at test if initial test elevatedPhysician If elevated, reflex second test in 4-6 hrs Name Value Range Interpretation Code Description Data Evelin rce(s) Supporting Document(s) Lactic w Rfx (if elevated) 1.3 mmol/L 0.5-2.0 N [facility] ID Date Data Source [id number] 06/08/2020 09:34:00 AM [facility] Therapy Department JAGJIT IBARRA : 1960 Date: 06/08/20 [id number] Attending: Chilo Pineda MD Physical Therapy Inpatient [...] pertinent to PT concerns:: DVT, DM, HTN, NE, pacemaker, stroke Prior Level of Function:: Patient [...] with no needs Therapist Cheryl Pierson 06/08/20 0965 I certify this plan of care Chilo Carreon MD 06/08/20 1301 Date Time LAST EDIT: Name Value Range Interpretation Code Description Data Evelin rce(s) Supporting Document(s) ID Date Data Source [id number] 06/08/2020 07:28:00 AM [facility] Name Value Range Interpretation Code Description Data Evelin rce(s) Supporting Document(s) Hemoglobin A1c [Mass/volume] in Blood 9.9 % 3.8-5.6 Above hig h normal [facility] The following ranges may be u sed for interpretation of results: HGBA1C degree of glucose control: Greater than 8%: Action Suggested * Less than 7%: Goal of Diabetic Therapy Less than 5.6%: NormalFactors such as duration of diabetes, adherence to therapyand the age of the patient should also be considered inassessing the degree of blood glucose control.* High risk of developing skilled nursing complications such asretinopathy, nephropathy, neuropathy, cardiopathy, etc. Some danger of hypoglycemic reaction in Type I diabetics.Some glucose intolerant individuals and "Sub Clinical"diabetics may demonstrate HGBA1C levels in this area. Glucose mean value [Moles/volume] in Blood Estimated f rom glycated hemoglobin 237 mg/dL [facility] An A1C of 7% - the goal of diabetic ther apy - is equivalentto an EAG of 154 mg/dl. ID Date Data Source [id number] 06/08/2020 06:59:00 AM [facility] Name Value Range Interpretation Code Description Data [facility] rce(s) Supporting Document(s) Leukocytes [#/volume] in Blood by Automated count 8.0 10*3/uL 4.45-10 .71 N [facility] Erythrocytes [#/volume] in Blood by Automated count 4.11 10*6/uL 4.3-6.1 Below low normal [facility] Hemoglobin [Moles/volume] in Blood 11.9 g/dL 13-18 Below low no rmal [facility] Hematocrit [Volume Fraction] of Blood by Automated count 38.0 % 42-52 Below low normal [facility] Erythrocyte mean corpuscular volume [Ent itic volume] in Cord blood by Automated count 92.5 fL 80-96 N [facility] Erythrocyte mean corpuscular hemoglobin [Entitic mass] by Automated count 29.0 pg 27-31 N [facility] Erythrocyte mean corpuscular hemoglobin concentration [Mass/volume] in Cord blood 31.3 g/dL 33-37 Below low normal [facility] Erythrocyte distribution width [Entitic volume] by Automated count 13 % 11-15 N [facility] Platelets [#/volume] in Blood by Automated count 173 10*3/uL 130-472 N [facility] Platelet mean volume [Entitic volume] in Blood 10.5 fL 9.1-13.1 N [facility] Neutrophils/100 leukocytes in Blood by Automated count 69.7 % 41- 77 N [facility] Neutrophils [#/volume] in Blood by Automated count 5.6 U 1.7-7.6 N [facility] Lymphocytes/100 leukocytes in Blood by Automated count 15.6 % 14- 46 N [facility] Lymphocytes [#/volume] in Blood by Automated count 1.3 U 0.6-4.6 N [facility] Monocytes/100 leukocytes in Blood by Automated count 11.0 % 4-12 N [facility] Monocytes [#/volume] in Blood by Automated count 0.9 U 0.2-1.2 N [facility] Eosinophils/100 leukocytes in Blood by Automated count 1.7 % 0-7 N [facility] Eosinophils [#/volume] in Blood by Automated count 0.1 U 0.0-0.5 N [facility] Basophils/100 leukocytes in Blood by Automated count 0.9 % 0.4-1 .3 N [facility] Basophils [#/volume] in Blood by Automated count 0.1 U 0.0-0.2 [facility] NUCLEATED RED BLOOD CELL 0 % [facility] NUCLEATED RED BLOOD CELL# 0 U [facility] Immature granulocytes [Presence] in Blood by Automated count 0-2 N [facility] Immature granulocytes [#/volume] in Blood by Automated count 0.1 U 0-0.1 N [facility] Manual Differential panel - Blood NO [facility] ID Date Data Source [id number] 06/08/2020 07:28:00 AM EST [facility] Name Value Range Interpretation Code Description Data Evelin rce(s) Supporting Document(s) Urea nitrogen [Mass/volume] in Serum or Plasma 12 mg/dL 9-23 N [facility] Sodium [Moles/volume] in Serum or Plasma 138 mmol/L 132-146 [facility] Potassium [Moles/volume] in Serum or Plasma 3.6 mmol/L 3.5-5.5 [facility] Chloride [Moles/volume] in Serum or Plasma 105 mmol/L 99-109 [facility] Carbon dioxide, total [Moles/volume] in Serum or Plasma 25 mmol/L 20 -31 N [facility] Anion gap in Serum or Plasma 12 mmol/L 8-16 [facility] Glucose [Mass/volume] in Serum or Plasma 253 mg/dL 74-106 Above high normal [facility] Creatinine 0.9 mg/dL 0.5-1.1 [facility] Glomerular filtration rate/1.73 sq M.pre dicted [Volume Rate/Area] in Serum or Plasma Greater Than 60 ABOVE 60 [facility] Alanine aminotransferase [Enzymatic acti vity/volume] in Serum or Plasma by With P-5'-P 47 U/L 10-49 [facility] ital Aspartate aminotransferase [Enzymatic ac tivity/volume] in Serum or Plasma by With P-5'-P 22 U/L 0-33 N [facility] pital Alkaline phosphatase [Enzymatic activity/volume] in Serum or Plasma 112 U/L 45-129 [facility] Calcium [Mass/volume] in Serum or Plasma 8.4 mg/dL 8.5-10.1 Below low normal [facility] Bilirubin.total [Mass/volume] in Serum or Plasma 0.8 mg/dL 0.3-1.2 [facility] Albumin [Mass/volume] in Serum or Plasma by Bromocresol purple (BCP) dye binding method 2.5 g/dL 3.2-4.8 Below low normal [facility] Protein [Mass/volume] in Serum or Plasma 6.0 g/dL 5.7-8.2 [facility] ID Date Data Source [id number] 06/08/2020 07:15:00 AM EST [facility] Special Instructions: 2.5 HOURS AFTER 04 00 DOSE STARTED Name Value Range Interpretation Code Description Data Evelin rce(s) Supporting Document(s) Vancomycin [Mass/volume] in Serum or Plasma --peak 26.5 ug/mL 20-40 [facility] ID Date Data Source [id number] 06/07/2020 05:06:00 PM [facility] Special Instructions: Lab may order repe at test if initial test elevatedPhysician If elevated, reflex second test in 4-6 hrs FOR SENSITIVITES SEE SPECIMEN [id number] STAIN = GRAM POSITIVE COCCI IN CLUSTERSGROWTH IN PEDIATRIC BOTTLEPREVIOUSLY CALLED 06/07/20 Called to Barbara Shepard. Results read back.06/09/20 0744 CALLED TO BROOKE CARSON,RESULTS READBACKSTAPHYLOCOCCUS AUREUS Name Value Range Interpretation Code Description Data Evelin rce(s) Supporting Document(s) C reactive protein [Mass/volume] in Serum or Plasma 131.0 mg/L 0.0-5.0 Above high normal [facility] ID Date Data Source [id number] 06/07/2020 05:30:00 PM [facility] Special Instructions: Lab may order repe at test if initial test elevatedPhysician If elevated, reflex second test in 4-6 hrs FOR SENSITIVITES SEE SPECIMEN [id number] STAIN = GRAM POSITIVE COCCI IN CLUSTERSGROWTH IN PEDIATRIC BOTTLEPREVIOUSLY CALLED 06/07/20 Called to BRIANNA George @ Barbara Dawn. Results read back.06/09/20 0744 CALLED TO BROOKE CARSON,RESULTS READBACKSTAPHYLOCOCCUS AUREUS Name Value Range Interpretation Code Description Data Evelin rce(s) Supporting Document(s) Lactic w Rfx (if elevated) 1.6 mmol/L 0.5-2.0 N [facility] ID Date Data Source [id number] 06/07/2020 05:44:00 PM [facility] Special Instructions: Lab may order repe at test if initial test elevatedPhysician If elevated, reflex second test in 4-6 hrs FOR SENSITIVITES SEE SPECIMEN [id number] STAIN = GRAM POSITIVE COCCI IN CLUSTERSGROWTH IN PEDIATRIC BOTTLEPREVIOUSLY CALLED 06/07/20 Called to Barbara Shepard. Results read back.06/09/20 0744 CALLED TO BROOKE CARSON,RESULTS READBACKSTAPHYLOCOCCUS AUREUS Name Value Range Interpretation Code Description Data Evelin rce(s) Supporting Document(s) Erythrocyte sedimentation rate by Westergren method 51 mm/hr 0-20 Above high normal [facility] @Reenter manual test result: 51@by Iona Brady at 06/07/20 1744. ID Date Data Source [id number] 06/07/2020 01:35:00 PM EST [facility] Pharmacy Department JAGJIT IBARRA : 1960 Date: 06/07/20 [id number] Vancomycin Initiation PK Note - Labratory/Microbiology Labratory [...] H AST 66 H ALT 70 H Hrr-K-Oynywdbuhiq Pept 345.00 H Albumin 2.9 L 06/06/20 [...] rce(s) Supporting Document(s) ID Date Data Source [id number] 06/07/2020 11:58:00 AM EST [facility] [address] [place] [address] [phone] NAME SEX PT STATUS ACCOUNT NUMBER JAGJIT IBARRA ADM IN [id number] ORDERING PHYSICIAN LOCATION MEDICAL RECORD NO. Blaise RACQUEL Jauregui [id number] ATTENDING PHYSICIAN DATE OF DATE OF EXAM/TIME [...] rce(s) Supporting Document(s) ID Date Data Source [id number] 06/07/2020 11:04:00 AM EST [facility] [address] [place] [address] [phone] NAME SEX PT STATUS ACCOUNT NUMBER JAGJIT IBARRA [facility] [id number] ORDERING PHYSICIAN LOCATION MEDICAL RECORD NO. Chilo Pineda MD [id number] ATTENDING PHYSICIAN DATE OF DATE OF EXAM/TIME [...] rce(s) Supporting Document(s) ID Date Data Source [id number] 06/07/2020 09:35:00 AM [facility] Name: JAGJIT IBARRA : 1960 Age: 60 MR#: [id number] Admit Date: 06/06/20 Provider: Chilo Pineda MD [...] 06/06/20 22:10 Observation Order [STATUS] Routine Location: [facility] Primary diagnosis: chest pain Isolation: Standard precautions [...] 77.9 H, Lymph % (Auto) 11.1 L, Hockley % (Auto) 8.5, Eos % (Auto) 1.3, Baso % (Auto) 0.4, Lymph # (Auto) 0.9, Abs Immat Gran (auto) 0.1, Add Manual Diff No, Absolute Neutrophils 6.2, Monocytes # 0.7, Absolute Eosinophils 0.1, Absolute Basophils 0.0 06/06/20 19:42: PT 11.7, INR 1.1, PTT ([facility]) 27.3 06/06/20 19:42: Sodium 133, Potassium 3.5, [...] L, Lipase 130 06/06/20 19:42: Magnesium 1.8, Bqb-S-Uneprvnexig Pept 345.00 H, TSH 2.05 06/07/20 02:05: Troponin I Less than 0.015 06/07/20 02:05: Lactic Acid 1.9 06/07/20 02:34: Urine Color Yellow, Urine Appearance Clear, Urine pH 5.0, Ur Specific [place] 1.038 A, Urine Protein 100 mg/dl H, [...] 80.0 H, Lymph % (Auto) 10.1 L, Hockley % (Auto) 8.1, Eos % (Auto) 0.7, [...] History of pulmonary embolism/DVT 6. Status post Laurel filter placement 7. Atrial fibrillation 8. Hyperlipidemia [...] rce(s) Supporting Document(s) ID Date Data Source [id number] 06/07/2020 07:00:00 AM EST [facility] [address] [place] [address] [phone] NAME SEX PT STATUS ACCOUNT NUMBER JAGJIT IBARRA M ADM LARRY [id number] ORDERING PHYSICIAN LOCATION MEDICAL RECORD NO. Blaise RACQUEL [place] [id number] ATTENDING PHYSICIAN DATE OF DATE OF EXAM/TIME Cindy Iraheta NP 1960 06/07/20335 TYPE / EXAM CT Abdomen without contrast REASON FOR EXAM L sided chest pain, fever JAGJIT IBARRA [id number] 1960 ADDENDUM Clinical History/Indication for Exam: L sided chest pain, fever Called for Critical Findings by Barbara Rodriguez to CHALINO Oscar on 06/07/2020 4:16AM [place] Time;Call for Critical Findings EXAM: CT abdomen [...] likely related to fatty infiltration as discussed kpknh-gzynuo-dg contrast-enhanced CT or sonography suggested for further [...] Goodwin MD on 06/07/20 07 Signed By Evlia Goodwin MD on 06/07/20 07 Trans Dt/Tm: [...] likely related to fatty infiltration as discussed rvooo-dxhplk-oe contrast-enhanced CT or sonography suggested for further [...] rce(s) Supporting Document(s) ID Date Data Source [id number] 06/07/2020 10:24:00 AM [facility] Special Instructions: May perform off bl ood in lab Name Value Range Interpretation Code Description Data Evelin rce(s) Supporting Document(s) Thyrotropin [Units/volume] in Serum or Plasma by Detec tion limit <= 0.005 mIU/L 0.99 u[iU]/mL 0.35-5.50 N [facility] al ID Date Data Source [id number] 06/07/2020 06:26:00 AM [facility] Name Value Range Interpretation Code Description Data Evelin rce(s) Supporting Document(s) Leukocytes [#/volume] in Blood by Automated count 8.3 10*3/uL 4.45-10 .71 [facility] Erythrocytes [#/volume] in Blood by Automated count 4.01 10*6/uL 4.3-6.1 Below low normal [facility] Hemoglobin [Moles/volume] in Blood 11.8 g/dL 13-18 Below low no rmal [facility] Hematocrit [Volume Fraction] of Blood by Automated count 35.8 % 42-52 Below low normal [facility] Erythrocyte mean corpuscular volume [Ent itic volume] in Cord blood by Automated count 89.3 fL 80-96 N [facility] Erythrocyte mean corpuscular hemoglobin [Entitic mass] by Automated count 29.4 pg 27-31 N [facility] l Erythrocyte mean corpuscular hemoglobin concentration [Mass/volume] in Cord blood 33.0 g/dL 33-37 N [facility] ital Erythrocyte distribution width [Entitic volume] by Automated count 12 % 11-15 N [facility] Platelets [#/volume] in Blood by Automated count 115 10*3/uL 130-472 Below low normal [facility] Platelet mean volume [Entitic volume] in Blood 12.3 fL 9.1-13.1 N [facility] Neutrophils/100 leukocytes in Blood by Automated count 80.0 % 41-77 Above high normal [facility] Neutrophils [#/volume] in Blood by Automated count 6.6 U 1.7-7.6 N [facility] Lymphocytes/100 leukocytes in Blood by Automated count 10.1 % 14-46 Below low normal [facility] Lymphocytes [#/volume] in Blood by Automated count 0.8 U 0.6-4.6 N [facility] Monocytes/100 leukocytes in Blood by Automated count 8.1 % 4-12 N [facility] Monocytes [#/volume] in Blood by Automated count 0.7 U 0.2-1.2 N [facility] Eosinophils/100 leukocytes in Blood by Automated count 0.7 % 0-7 N [facility] Eosinophils [#/volume] in Blood by Automated count 0.1 U 0.0-0.5 N [facility] Basophils/100 leukocytes in Blood by Automated count 0.5 % 0.4-1 .3 N [facility] Basophils [#/volume] in Blood by Automated count 0.0 U 0.0-0.2 N [facility] NUCLEATED RED BLOOD CELL 0 % [facility] NUCLEATED RED BLOOD CELL# 0 U [facility] Immature granulocytes [Presence] in Blood by Automated count 0-2 N [facility] Immature granulocytes [#/volume] in Blood by Automated count 0.1 U 0-0.1 N [facility] Manual Differential panel - Blood NO [facility] ID Date Data Source [id number] 06/07/2020 07:00:00 AM EST [facility] Name Value Range Interpretation Code Description Data Evelin rce(s) Supporting Document(s) Urea nitrogen [Mass/volume] in Serum or Plasma 14 mg/dL 9-23 N [facility] Sodium [Moles/volume] in Serum or Plasma 134 mmol/L 132-146 N [facility] Potassium [Moles/volume] in Serum or Plasma 3.5 mmol/L 3.5-5.5 N [facility] Chloride [Moles/volume] in Serum or Plasma 102 mmol/L 99-109 N [facility] Carbon dioxide, total [Moles/volume] in Serum or Plasma 22 mmol/L 20 -31 N [facility] Anion gap in Serum or Plasma 14 mmol/L 8-16 N [facility] Glucose [Mass/volume] in Serum or Plasma 316 mg/dL 74-106 Above high normal [facility] Creatinine 1.2 mg/dL 0.5-1.1 Above high normal [facility] Glomerular filtration rate/1.73 sq M.pre dicted [Volume Rate/Area] in Serum or Plasma Greater Than 60 ABOVE 60 [facility] Alanine aminotransferase [Enzymatic acti vity/volume] in Serum or Plasma by With P-5'-P 61 U/L 10-49 Above high normal [facility] Aspartate aminotransferase [Enzymatic ac tivity/volume] in Serum or Plasma by With P-5'-P 46 U/L 0-33 Above high normal [facility] Alkaline phosphatase [Enzymatic activity/volume] in Serum or Plasma 174 U/L 45-129 Above high normal [facility] Calcium [Mass/volume] in Serum or Plasma 8.2 mg/dL 8.5-10.1 Below low normal [facility] Bilirubin.total [Mass/volume] in Serum or Plasma 1.1 mg/dL 0.3-1.2 N [facility] Albumin [Mass/volume] in Serum or Plasma by Bromocresol purple (BCP) dye binding method 2.7 g/dL 3.2-4.8 Below low normal [facility] Protein [Mass/volume] in Serum or Plasma 5.8 g/dL 5.7-8.2 [facility] ID Date Data Source [id number] 06/07/2020 07:00:00 AM EST [facility] Name Value Range Interpretation Code Description Data Evelin rce(s) Supporting Document(s) Troponin I.cardiac [Mass/volume] in Serum or Plasma Less Than 0.015 0.00-0.09 [facility] Less than 0.09 NG/ML Negative0.10 - 0.77 NG/ML High Risk0.78 NG/ML or Greater PositiveThe WHO defined the cutoff (definition for diagnosis of NE)for this method as 0.78 ng/ml. ID Date Data Source [id number] 06/07/2020 05:14:00 AM EST [facility] Reason for ordering culture: Abnormal fi ndings UA@06/07/20 0455: UA W/ MICRO added. RFLXG = UMIC CIF.Method of Collection:: Clean Catch Reason for ordering culture: Abnormal fi ndings UA@06/07/20 0455: UA W/ MICRO added. RFLXG = UMIC CIF.Method of Collection:: Clean Catch Name Value Range Interpretation Code Description Data Evelin rce(s) Supporting Document(s) Color of Urine [facility] Appearance of Urine CLEAR [facility] pH of Urine by Test strip 5.0 5-8 [facility] Specific gravity of Urine by Refractometry 1.038 1.005 -1.030 Abnormal (applies to non-numeric results) [facility] Leukocyte esterase [Presence] in Urine by Test strip NEGAT ASH [facility] Nitrite [Presence] in Urine by Test strip NEGATIVE [facility] Protein [Presence] in Urine by Test strip NEGATIVE Above high normal [facility] @DO MICRO!!!! Glucose [Mass/volume] in Urine by Automated test strip > 1000 mg /dl NEGATIVE Abnormal (applies to non-numeric results) [facility] Ketones [Presence] in Urine by Test strip NEGATI VE Abnormal (applies to non- numeric results) [facility] Urobilinogen [Presence] in Urine 0.2-1 EU/dl [facility] Bilirubin.total [Presence] in Urine by Automated test strip NEGATIVE [facility] Erythrocytes [#/volume] in Urine by Test strip TRACE N EGATIVE Abnormal (applies to non-numeric results) [facility] @DO MICRO!!!! URINE MICROSCOPIC? (CIF) Microscopic Added [facility] ID Date Data Source [id number] 06/07/2020 05:14:00 AM EST [facility] Reason for ordering culture: Abnormal fi ndings UA@06/07/20 0455: UA W/ MICRO added. RFLXG = UMIC CIF.Method of Collection:: Clean Catch Reason for ordering culture: Abnormal fi ndings UA@06/07/20 0455: UA W/ MICRO added. RFLXG = UMIC CIF.Method of Collection:: Clean Catch Name Value Range Interpretation Code Description Data Evelin rce(s) Supporting Document(s) Erythrocytes [#/volume] in Urine by Manual count OCCASIONAL 0-5 [facility] Leukocytes [#/volume] in Urine by Manual count 2-4 /hpf 0-5 [facility] Bacteria [Presence] in Urine sediment by Light microscopy NEGATIVE Above high normal [facility] ID Date Data Source [id number] 06/07/2020 02:53:00 AM [facility] Special Instructions: Lab may order repe at test if initial test elevatedPhysician If elevated, reflex second test in 4-6 hrs FOR SENSITIVITIES SEE SPECIMEN [id number] STAIN = GRAM POSITIVE COCCI IN CLUSTERS GROWING IN BOTHAEROBIC AND ANAERIC ZIRRORS22/15/2144 CALLED TO BROOKE CARSON,RESULTS READBACK06/07/20 Called to BRIANNA B @ 1453 by Barbara Krishna. Results readback.STAPHYLOCOCCUS AUREUS Name Value Range Interpretation Code Description Data Evelin rce(s) Supporting Document(s) Lactic w Rfx (if elevated) 1.9 mmol/L 0.5-2.0 N [facility] ID Date Data Source [id number] 06/09/2020 07:49:00 AM [facility] Special Instructions: Lab may order repe at test if initial test elevatedPhysician If elevated, reflex second test in 4-6 hrs FOR SENSITIVITIES SEE SPECIMEN [id number] STAIN = GRAM POSITIVE COCCI IN CLUSTERS GROWING IN BOTHAEROBIC AND ANAERIC GSBJYDM28/15/2144 CALLED TO BROOKE CARSON,RESULTS READBACK06/07/20 Called to BRIANNA B @ 1453 by Barbara Krishna. Results readback.STAPHYLOCOCCUS AUREUS Name Value Range Interpretation Code Description Data Evelin rce(s) Supporting Document(s) ID Date Data Source [id number] 06/09/2020 07:47:00 AM [facility] Special Instructions: Lab may order repe at test if initial test elevatedPhysician If elevated, reflex second test in 4-6 hrs FOR SENSITIVITIES SEE SPECIMEN [id number] STAIN = GRAM POSITIVE COCCI IN CLUSTERS GROWING IN BOTHAEROBIC AND ANAERIC RHWATAN77/15/21 0744 CALLED TO BROOKE Hernandes BY ALLI,RESULTS READBACK06/07/20 Called to BRIANNA Kelley 5220 by Barbara Krishna. Results readback.STAPHYLOCOCCUS AUREUS Name Value Range Interpretation Code Description Data Evelin rce(s) Supporting Document(s) TRIMETHOPRIM/SULFAMETHOXAZOLE <0.5/9.5 Andre sceptible. Indicates for microbiology susceptibilities only. [facility] Amoxicillin+Clavulanate [Susceptibility] by Minimum inhibitory concentration (GUY) <4/2 Susceptible. Indicates for microbiology s usceptibilities only. [facility] Ampicillin [Susceptibility] by Minimum inhibitory concentration (GUY) >8 Resistant. Indicates for microbiology susceptibilities only. [facility] Ampicillin+Sulbactam [Susceptibility] by Minimum inhib itory concentration (GUY) <8/4 Susceptible. Indicates for microbiology suscepti bilities only. [facility] Cefazolin [Susceptibility] by Minimum inhibitory concentration ( GUY) <4 Susceptible. Indicates for microbiology susceptibilities only. [facility] Ciprofloxacin [Susceptibility] by Minimum inhibitory concentrati on (GUY) <1 Susceptible. Indicates for microbiology susceptibilities only. [facility] Clindamycin [Susceptibility] by Minimum inhibitory concentration (GUY) <0.5 Susceptible. Indicates for microbiology susceptibilities only. [facility] Erythromycin [Susceptibility] by Minimum inhibitory concentratio n (GUY) <0.5 Susceptible. Indicates for microbiology susceptibilities only. [facility] Gentamicin [Susceptibility] by Minimum inhibitory concentration (GUY) <4 Susceptible. Indicates for microbiology susceptibilities only. [facility] Oxacillin [Susceptibility] by Minimum inhibitory concentration ( GUY) 0.5 Susceptible. Indicates for microbiology susceptibilities only. [facility] Penicillin [Susceptibility] by Minimum inhibitory concentration (GUY) >8 Resistant. Indicates for microbiology susceptibilities only. [facility] Tetracycline [Susceptibility] by Minimum inhibitory concentratio n (GUY) <4 Susceptible. Indicates for microbiology susceptibilities only. [facility] Vancomycin [Susceptibility] by Minimum inhibitory concentration (GUY) 2 Susceptible. Indicates for microbiology susceptibilities only. [facility] Levofloxacin [Susceptibility] by Minimum inhibitory concentratio n (GUY) <1 Susceptible. Indicates for microbiology susceptibilities only. [facility] Moxifloxacin [Susceptibility] by Minimum inhibitory concentratio n (GUY) <0.5 Susceptible. Indicates for microbiology susceptibilities only. [facility] ID Date Data Source [id number] 06/07/2020 02:51:00 PM [facility] Called to BRIANNA Doris @ 4957 by Barbara Krishna. Results read back.The FilmArray [...] rce(s) Supporting Document(s) ID Date Data Source [id number] 06/07/2020 02:42:00 AM [facility] Name Value Range Interpretation Code Description Data Evelin rce(s) Supporting Document(s) Troponin I.cardiac [Mass/volume] in Serum or Plasma Less Than 0.015 0.00-0.09 N [facility] Less than 0.09 NG/ML Negative0.10 - 0.77 NG/ML High Risk0.78 NG/ML or Greater PositiveThe WHO defined the cutoff (definition for diagnosis of NE)for this method as 0.78 ng/ml. ID Date Data Source [id number] 06/06/2020 10:24:00 PM [facility] Name: JAGJIT IBARRA : 1960 Age: 60 MR#: [id number] Admit Date: 06/06/20 Provider: Blaise Jauregui Room [...] available for consult. Note was transcribed using [employer] phone. The note was reviewed for accuracy [...] Free Text/Narrative:: 60y/o Male patient presented to [facility] via EMS for left-sided chest pain that [...] forCAD with stent x2, pulmonary embolism, DVT, Laurel filter, AICD/pacemaker, diabetes mellitus. Patient was evaluated [...] H/H 12.3/36.3, Plt 208. CMP significant for BUN/[employer] 16/1.5, AST66,ALT70, Albumin 2.9, BNP 345, Glucose [...] 77.9 H, Lymph % (Auto) 11.1 L, Hockley % (Auto) 8.5, Eos % (Auto) 1.3, Baso % (Auto) 0.4, Lymph # (Auto) 0.9, Abs Immat Gran (auto) 0.1, Add Manual Diff No, Absolute Neutrophils 6.2, Monocytes # 0.7, Absolute Eosinophils 0.1, Absolute Basophils 0.0 06/06/20 19:42: PT 11.7, INR 1.1, PTT ([facility]) 27.3 06/06/20 19:42: Sodium 133, Potassium 3.5, [...] L, Lipase 130 06/06/20 19:42: Magnesium 1.8, Nib-M-Rybwlgvqakv Pept 345.00 H, TSH 2.05 Microbiology 06/06/20 [...] 60-year-old male patient will be brought into [facility] on telemetry for observation for atypical chest [...] available for consult. Note was transcribed using [employer] phone. The note was reviewed for accuracy [...] rce(s) Supporting Document(s) ID Date Data Source [id number] 06/07/2020 06:16:00 AM [facility] @ [place] DATE was changed from 06/07/20 to 06/06/20@ carl BEASLEY.THIS RP PANEL TESTS FOR SARS-CoV-2,(COVID-19)FilmArray Respiratory Panel is a Multiplexed NAAT-PCR testNORMAL VALUE FOR ALL 20 PATHOGENS IS "NOT DETECTED".The FilmArray RP panel detects Influenza A H1,H3 [id number] H1 viruses,Influenza B virus, Respiratory syncytialvirus, Human [...] rce(s) Supporting Document(s) ID Date Data Source [id number] 06/06/2020 10:06:00 PM [facility] Bridget Ce is a rapid, automated qualita tive anddifferentiation of Influenza type A,B and JCEK-VZF-7DFRE-RT-PCR testNORMAL VALUE IS "NOT DETECTED".Limitations of the bridget ce Influenza A/B & QZEK-SAC-5icxbc method.Modifications to manufacturers recommendation and proceduresmay alter performance of the test.Negative results do not preclude Influenza A,B or SARS- RAB4ldwdmrlxcb and should not be used as the [...] rce(s) Supporting Document(s) ID Date Data Source [id number] 06/06/2020 10:06:00 PM [facility] Bridget Ce is a rapid, automated qualita tive anddifferentiation of Influenza type A,B and PFCF-EHJ-7EIMO-RT-PCR testNORMAL VALUE IS "NOT DETECTED".Limitations of the bridget ce Influenza A/B & XDMO-BVR-4skeqs method.Modifications to manufacturers recommendation and proceduresmay alter performance of the test.Negative results do not preclude Influenza A,B or SARS- HOT9izxzgthmuj and should not be used as the [...] Document(s) Extended hours FLU/COV2 NAAT CE L [facility] ID Date Data Source [id number] 06/06/2020 08:14:00 PM [facility] [address] [place] [address] [phone] NAME SEX PT STATUS ACCOUNT NUMBER JAGJIT IBARRA REG ER [id number] ORDERING PHYSICIAN LOCATION MEDICAL RECORD NO. Isaías Nichols MD ER [id number] ATTENDING PHYSICIAN DATE OF DATE OF EXAM/TIME Doctor Provided,No Family 1960 06/06[birth year]201928 TYPE / EXAM CTA Chest non-card W/ or w/o REASON FOR EXAM CP Hx PE NE Clinical History/Indication for Exam: CP Hx PE NE CT ANGIOGRAPHY CHEST WITHOUT AND WITH INTRAVENOUS [...] rce(s) Supporting Document(s) ID Date Data Source [id number] 06/06/2020 08:08:00 PM EST [facility] ED Physician Documentation NAME: JAGJIT IBARRA : 1960 AGE: 60 MR#: [id number] SERVICE DATE: 06/06/[address]: Isaías Nichols MD PRIMARY CARE DR: No Family PHYS Provided ROOM#: [facility] (Adult, General) General Chief Complaint: [...] Llamas MD) Deep vein thrombosis Diabetes mellitus Laurel filter in place Hypertension Myocardial infarction Pacemaker [...] 77.9 H, Lymph % (Auto) 11.1 L, Hockley % (Auto) 8.5, Eos % (Auto) 1.3, [...] L, Lipase 130 06/06/20 19:42: Magnesium 1.8, Ioy-D-Mjqpwobbbta Pept 345.00 H, TSH 2.05 EKG Data [...] Pain / Syncope (per pt) / Hx NE stents x 2/ Hx PE (per pt) [...] rce(s) Supporting Document(s) ID Date Data Source [id number] 06/06/2020 08:32:00 PM [facility] Name Value Range Interpretation Code Description Data Evelin rce(s) Supporting Document(s) Magnesium [Mass/volume] in Serum or Plasma 1.8 mg/dL 1.3-2.7 [facility] ID Date Data Source [id number] 06/06/2020 08:32:00 PM [facility] Name Value Range Interpretation Code Description Data Evelin rce(s) Supporting Document(s) Thyrotropin [Units/volume] in Serum or Plasma by Detec tion limit <= 0.005 mIU/L 2.05 u[iU]/mL 0.35-5.50 [facility] ID Date Data Source [id number] 06/06/2020 08:32:00 PM [facility] Name Value Range Interpretation Code Description Data Evelin rce(s) Supporting Document(s) Natriuretic peptide.B prohormone N-Terminal [Mass/volu me] in Serum or Plasma 345.00 pg/mL 0.00-175 Above high normal [facility] spital ID Date Data Source [id number] 06/06/2020 07:56:00 PM [facility] Anticoagulant or Thrombolytic medication : Other Po Anticoagulant Name Value Range Interpretation Code Description Data Evelin rce(s) Supporting Document(s) Leukocytes [#/volume] in Blood by Automated count 8.0 10*3/uL 4.45-10 .71 N [facility] Erythrocytes [#/volume] in Blood by Automated count 4.19 10*6/uL 4.3-6.1 Below low normal [facility] Hemoglobin [Moles/volume] in Blood 12.3 g/dL 13-18 Below low no rmal [facility] Hematocrit [Volume Fraction] of Blood by Automated count 36.3 % 42-52 Below low normal [facility] Erythrocyte mean corpuscular volume [Ent itic volume] in Cord blood by Automated count 86.6 fL 80-96 N [facility] Erythrocyte mean corpuscular hemoglobin [Entitic mass] by Automated count 29.4 pg 27-31 N [facility] l Erythrocyte mean corpuscular hemoglobin concentration [Mass/volume] in Cord blood 33.9 g/dL 33-37 N [facility] Erythrocyte distribution width [Entitic volume] by Automated count 12 % 11-15 N [facility] Platelets [#/volume] in Blood by Automated count 208 10*3/uL 130-472 N [facility] Platelet mean volume [Entitic volume] in Blood 10.0 fL 9.1-13.1 N [facility] Neutrophils/100 leukocytes in Blood by Automated count 77.9 % 41-77 Above high normal [facility] Neutrophils [#/volume] in Blood by Automated count 6.2 U 1.7-7.6 N [facility] Lymphocytes/100 leukocytes in Blood by Automated count 11.1 % 14-46 Below low normal [facility] Lymphocytes [#/volume] in Blood by Automated count 0.9 U 0.6-4.6 N [facility] Monocytes/100 leukocytes in Blood by Automated count 8.5 % 4-12 N [facility] Monocytes [#/volume] in Blood by Automated count 0.7 U 0.2-1.2 N [facility] Eosinophils/100 leukocytes in Blood by Automated count 1.3 % 0-7 N [facility] Eosinophils [#/volume] in Blood by Automated count 0.1 U 0.0-0.5 N [facility] Basophils/100 leukocytes in Blood by Automated count 0.4 % 0.4-1 .3 N [facility] Basophils [#/volume] in Blood by Automated count 0.0 U 0.0-0.2 N [facility] NUCLEATED RED BLOOD CELL 0 % [facility] NUCLEATED RED BLOOD CELL# 0 U [facility] Immature granulocytes [Presence] in Blood by Automated count 0-2 N [facility] Immature granulocytes [#/volume] in Blood by Automated count 0.1 U 0-0.1 N [facility] Manual Differential panel - Blood NO [facility] ID Date Data Source [id number] 06/06/2020 08:20:00 PM [facility] Anticoagulant or Thrombolytic medication : Other Po Anticoagulant Name Value Range Interpretation Code Description Data Evelin rce(s) Supporting Document(s) Prothrombin Time (Patient) 11.7 s 9.6-12.3 N [facility] INR 1.1 0.9-1.1 [facility] THE INR IS OPERATIONALLY DEFINED FOR RIKI SH PLASMA FROMPATIENTS STABILIZED ON ORAL ANTICOAGULANTS.ROUTINE ANTICOAGULANT THERAPY 2.0-3.0RECURRENT SYSTEMIC EMBOLISM/HEART VALVE REPLACEMENT 2.5-3.5 aPTT.lupus sensitive (LA screen) 27.3 s 22.7-31.6 N [facility] ID Date Data Source [id number] 06/06/2020 08:28:00 PM [facility] Anticoagulant or Thrombolytic medication : Other Po Anticoagulant Name Value Range Interpretation Code Description Data Evelin rce(s) Supporting Document(s) Urea nitrogen [Mass/volume] in Serum or Plasma 16 mg/dL 9-23 N [facility] Sodium [Moles/volume] in Serum or Plasma 133 mmol/L 132-146 N [facility] Potassium [Moles/volume] in Serum or Plasma 3.5 mmol/L 3.5-5.5 N [facility] Chloride [Moles/volume] in Serum or Plasma 99 mmol/L 99-109 N [facility] Carbon dioxide, total [Moles/volume] in Serum or Plasma 27 mmol/L 20 -31 N [facility] Anion gap in Serum or Plasma 11 mmol/L 8-16 N [facility] Glucose [Mass/volume] in Serum or Plasma 323 mg/dL 74-106 Above high normal [facility] Creatinine 1.5 mg/dL 0.5-1.1 Above high normal [facility] Glomerular filtration rate/1.73 sq M.pre dicted [Volume Rate/Area] in Serum or Plasma 48 ml/min ABOVE 60 [facility] ital Alanine aminotransferase [Enzymatic acti vity/volume] in Serum or Plasma by With P-5'-P 70 U/L 10-49 Above high normal [facility] Aspartate aminotransferase [Enzymatic ac tivity/volume] in Serum or Plasma by With P-5'-P 66 U/L 0-33 Above high normal [facility] Alkaline phosphatase [Enzymatic activity/volume] in Serum or Plasma 127 U/L 45-129 N [facility] Calcium [Mass/volume] in Serum or Plasma 8.6 mg/dL 8.5-10.1 N [facility] Bilirubin.total [Mass/volume] in Serum or Plasma 1.1 mg/dL 0.3-1.2 N [facility] Albumin [Mass/volume] in Serum or Plasma by Bromocresol purple (BCP) dye binding method 2.9 g/dL 3.2-4.8 Below low normal [facility] Protein [Mass/volume] in Serum or Plasma 6.9 g/dL 5.7-8.2 N [facility] ID Date Data Source [id number] 06/06/2020 08:28:00 PM [facility] Anticoagulant or Thrombolytic medication : Other Po Anticoagulant Name Value Range Interpretation Code Description Data Evelin rce(s) Supporting Document(s) Lipase [Enzymatic activity/volume] in Serum or Plasma 130 U/L 73-3 93 N [facility] ID Date Data Source [id number] 06/06/2020 08:28:00 PM [facility] Anticoagulant or Thrombolytic medication : Other Po Anticoagulant Name Value Range Interpretation Code Description Data Evelin rce(s) Supporting Document(s) Creatine kinase [Enzymatic activity/volume] in Serum or Plasma 56 U /L 33-211 N [facility] Creatine kinase.MB [Enzymatic activity/volume] in Serum or P lasma Less Than 1.0 0.0-5.0 N [facility] @Report as less than lower limit ID Date Data Source [id number] 06/06/2020 08:28:00 PM EST [facility] Anticoagulant or Thrombolytic medication : Other Po Anticoagulant Name Value Range Interpretation Code Description Data Evelin rce(s) Supporting Document(s) Troponin I.cardiac [Mass/volume] in Serum or Plasma Less Than 0.015 0.00-0.09 N [facility] Less than 0.09 NG/ML Negative0.10 - 0.77 NG/ML High Risk0.78 NG/ML or Greater PositiveThe WHO defined the cutoff (definition for diagnosis of NE)for this method as 0.78 ng/ml. ID Date Data Source [id number] 06/06/2020 03:54:00 PM EST [facility]) Name Value Range Interpretation Code Description Data Evelin rce(s) Supporting Document(s) Icd Dual Program Laboratory test result [facility] ([facility]) ID Date Data Source [id number] 06/06/2020 12:00:00 AM EST [facility] Name Value Range Interpretation Code Description Data Evelin rce(s) Supporting Document(s) SARS-CoV2 Rapid PCR Not Detected [facility] This lab was ordered by [facility] and reported by [facility]. ID Date Data Source [id number] 05/31/2020 08:09:00 AM [facility] Name: JAGJIT IBARRA : 1960 Age: 60 MR#: [id number] Admit Date: 05/29/20 Provider: Christo Llamas MD Room #: 291 Consulting Provider: [facility] Cardiology Dictation Date: 05/31/20 Discharge Summary Discharge [...] % (Auto) 69.5, Lymph % (Auto) 21.9, Hockley % (Auto) 6.1, Eos % (Auto) 1.3, [...] check at 2 pm. Ground floor at [facility] JUNE 06 IN THE FALSE PASS OFFICE 2;45PM) Ida Alcantara, [employer] [FAMILY NURSE PRACTITIONER] - 06/14/20 10:15 am [...] rce(s) Supporting Document(s) ID Date Data Source [id number] 05/31/2020 07:56:00 AM [facility] Name Value Range Interpretation Code Description Data Evelin rce(s) Supporting Document(s) Leukocytes [#/volume] in Blood by Automated count 11.6 10*3/uL 4.45-10.71 Above high normal [facility] Erythrocytes [#/volume] in Blood by Automated count 5.27 10*6/uL 4.3- 6.1 N [facility] Hemoglobin [Moles/volume] in Blood 15.6 g/dL 13-18 N [facility] Hematocrit [Volume Fraction] of Blood by Automated count 45.9 % 4 2-52 N [facility] Erythrocyte mean corpuscular volume [Ent itic volume] in Cord blood by Automated count 87.1 fL 80-96 N [facility] ital Erythrocyte mean corpuscular hemoglobin [Entitic mass] by Automated count 29.6 pg 27-31 [facility] mean corpuscular hemoglobin concentration [Mass/volume] in Cord blood 34.0 g/dL 33-37 N [facility] ital Erythrocyte distribution width [Entitic volume] by Automated count 12 % 11-15 N [facility] Platelets [#/volume] in Blood by Automated count 204 10*3/uL 130-472 N [facility] Platelet mean volume [Entitic volume] in Blood 10.4 fL 9.1-13.1 N [facility] Neutrophils/100 leukocytes in Blood by Automated count 69.5 % 41- 77 N [facility] Neutrophils [#/volume] in Blood by Automated count 8.0 U 1.7-7.6 Above high normal [facility] Lymphocytes/100 leukocytes in Blood by Automated count 21.9 % 14- 46 N [facility] Lymphocytes [#/volume] in Blood by Automated count 2.5 U 0.6-4.6 N [facility] Monocytes/100 leukocytes in Blood by Automated count 6.1 % 4-12 N [facility] Monocytes [#/volume] in Blood by Automated count 0.7 U 0.2-1.2 N [facility] Eosinophils/100 leukocytes in Blood by Automated count 1.3 % 0-7 N [facility] Eosinophils [#/volume] in Blood by Automated count 0.2 U 0.0-0.5 N [facility] Basophils/100 leukocytes in Blood by Automated count 0.5 % 0.4-1 .3 N [facility] Basophils [#/volume] in Blood by Automated count 0.1 U 0.0-0.2 N [facility] NUCLEATED RED BLOOD CELL 0 % [facility] NUCLEATED RED BLOOD CELL# 0 U [facility] Immature granulocytes [Presence] in Blood by Automated count 0-2 N [facility] Immature granulocytes [#/volume] in Blood by Automated count 0.1 U 0-0.1 N [facility] Manual Differential panel - Blood NO [facility] ID Date Data Source [id number] 05/31/2020 08:28:00 AM [facility] Name Value Range Interpretation Code Description Data Evelin rce(s) Supporting Document(s) Urea nitrogen [Mass/volume] in Serum or Plasma 20 mg/dL 9-23 N [facility] Sodium [Moles/volume] in Serum or Plasma 138 mmol/L 132-146 [facility] Potassium [Moles/volume] in Serum or Plasma 4.4 mmol/L 3.5-5.5 [facility] Chloride [Moles/volume] in Serum or Plasma 107 mmol/L 99-109 N [facility] Carbon dioxide, total [Moles/volume] in Serum or Plasma 23 mmol/L 20 -31 N [facility] Anion gap in Serum or Plasma 12 mmol/L 8-16 [facility] Glucose [Mass/volume] in Serum or Plasma 264 mg/dL 74-106 Above high normal [facility] Creatinine 1.0 mg/dL 0.5-1.1 [facility] Glomerular filtration rate/1.73 sq M.pre dicted [Volume Rate/Area] in Serum or Plasma Greater Than 60 ABOVE 60 [facility] Alanine aminotransferase [Enzymatic acti vity/volume] in Serum or Plasma by With P-5'-P 54 U/L 10-49 Above high normal [facility] Aspartate aminotransferase [Enzymatic ac tivity/volume] in Serum or Plasma by With P-5'-P 18 U/L 0-33 [facility] pital Alkaline phosphatase [Enzymatic activity/volume] in Serum or Plasma 80 U/L 45-129 [facility] Calcium [Mass/volume] in Serum or Plasma 8.9 mg/dL 8.5-10.1 [facility] Bilirubin.total [Mass/volume] in Serum or Plasma 1.2 mg/dL 0.3-1.2 [facility] Albumin [Mass/volume] in Serum or Plasma by Bromocresol purple (BCP) dye binding method 3.8 g/dL 3.2-4.8 [facility] ital Protein [Mass/volume] in Serum or Plasma 7.0 g/dL 5.7-8.2 [facility] ID Date Data Source [id number] 05/31/2020 08:21:00 AM [facility] Anticoagulant or Thrombolytic medication :: Coumadin/Warfarin Name Value Range Interpretation Code Description Data Evelin rce(s) Supporting Document(s) Prothrombin Time (Patient) 11.9 s 9.6-12.3 N [facility] INR 1.1 0.9-1.1 N [facility] THE INR IS OPERATIONALLY DEFINED FOR RIKI SH PLASMA FROMPATIENTS STABILIZED ON ORAL ANTICOAGULANTS.ROUTINE ANTICOAGULANT THERAPY 2.0-3.0RECURRENT SYSTEMIC EMBOLISM/HEART VALVE REPLACEMENT 2.5-3.5 ID Date Data Source [id number] 05/30/2020 03:47:00 PM EST [facility]) Name Value Range Interpretation Code Description Data Evelin rce(s) Supporting Document(s) .Scanned Labs Laboratory test result [facility] ([facility]) ID Date Data Source [id number] 05/30/2020 03:22:00 PM [facility] Name: JAGJIT IBARRA : 1960 Age: 60 MR#: [id number] Admit Date: 05/29/20 Provider: Christo Llamas MD Room #: 281 Consulting Provider: [facility] Cardiology Dictation Date: 05/30/20 Progress Note Subjective-ROS [...] Calcium 8.9, Troponin I 0.075 05/29/20 21:55: Fle-N-Ouhpqfiyimi Pept 2564.00 H 05/30/20 04:28: WBC 10.0, RBC 4.89, Hgb 14.7, Hct 42.6, MCV 87.1, MCH 30.1, MCHC 34.5, RDW 12, Plt Count 208, MPV 10.5, Immature Gran % (Auto) 1.3, Neut % (Auto) 56.5, Lymph % (Auto) 31.0, Hockley % (Auto) 8.0, Eos % (Auto) 2.4, [...] rce(s) Supporting Document(s) ID Date Data Source [id number] 05/30/2020 10:41:00 AM EST [facility] CONSULTATION REPORT NAME: JAGJIT IBARRA : 1960 AGE: 60 MR#: [id number] ADMITTING DATE: 05/29/[address]: Christo Llamas [...] stent placement. This was all done in [place], [place]. Detailed operative report is not available. Patientin view of s ignificant LV dysfunction, in May 2014 underwent ICD placement, dual chamber. Patient about a year later had a CVA for which he was started on anticoagulation and has remained onanticoagulation since then. Patient is getting refills of his medications from [facility]. Last evaluated several months ago by [...] REVIEW OF SYSTEMS Unemployed, gets services through [facility] in [place]. History of smoking. Denies any drug or [...] this pleasant gentleman. CC: Christo Llamas MD; [facility] <Electronically signed by Tremaine Ledesma MD> Tremaine Ledesma MD 06/30/20 1231 Tremaine Ledesma M.D. Cosigner: D: DANA 05/30/20 1041 T: DWAYNE 05/30/20 1121 CC: Christo Llamas MD; Tremaine Ledesma M.D.; No Family PHYS Provided LAST EDIT: Name Value Range Interpretation Code Description Data Evelin rce(s) Supporting Document(s) ID Date Data Source [id number] 05/30/2020 05:02:00 AM EST [facility] Name Value Range Interpretation Code Description Data Evelin rce(s) Supporting Document(s) Leukocytes [#/volume] in Blood by Automated count 10.0 10*3/uL 4.45-1 0.71 N [facility] Erythrocytes [#/volume] in Blood by Automated count 4.89 10*6/uL 4.3- 6.1 N [facility] Hemoglobin [Moles/volume] in Blood 14.7 g/dL 13-18 N [facility] Hematocrit [Volume Fraction] of Blood by Automated count 42.6 % 4 2-52 N [facility] Erythrocyte mean corpuscular volume [Ent itic volume] in Cord blood by Automated count 87.1 fL 80-96 N [facility] ital Erythrocyte mean corpuscular hemoglobin [Entitic mass] by Automated count 30.1 pg 27-31 N [facility] l Erythrocyte mean corpuscular hemoglobin concentration [Mass/volume] in Cord blood 34.5 g/dL 33-37 N [facility] ital Erythrocyte distribution width [Entitic volume] by Automated count 12 % 11-15 N [facility] Platelets [#/volume] in Blood by Automated count 208 10*3/uL 130-472 N [facility] Platelet mean volume [Entitic volume] in Blood 10.5 fL 9.1-13.1 N [facility] Neutrophils/100 leukocytes in Blood by Automated count 56.5 % 41- 77 N [facility] Neutrophils [#/volume] in Blood by Automated count 5.7 U 1.7-7.6 N [facility] Lymphocytes/100 leukocytes in Blood by Automated count 31.0 % 14- 46 N [facility] Lymphocytes [#/volume] in Blood by Automated count 3.1 U 0.6-4.6 N [facility] Monocytes/100 leukocytes in Blood by Automated count 8.0 % 4-12 N [facility] Monocytes [#/volume] in Blood by Automated count 0.8 U 0.2-1.2 N [facility] Eosinophils/100 leukocytes in Blood by Automated count 2.4 % 0-7 N [facility] Eosinophils [#/volume] in Blood by Automated count 0.2 U 0.0-0.5 N [facility] Basophils/100 leukocytes in Blood by Automated count 0.8 % 0.4-1 .3 N [facility] Basophils [#/volume] in Blood by Automated count 0.1 U 0.0-0.2 N [facility] NUCLEATED RED BLOOD CELL 0 % [facility] NUCLEATED RED BLOOD CELL# 0 U [facility] Immature granulocytes [Presence] in Blood by Automated count 0-2 N [facility] Immature granulocytes [#/volume] in Blood by Automated count 0.1 U 0-0.1 N [facility] Manual Differential panel - Blood NO [facility] ID Date Data Source [id number] 05/30/2020 06:28:00 AM EST [facility] Name Value Range Interpretation Code Description Data Evelin rce(s) Supporting Document(s) Urea nitrogen [Mass/volume] in Serum or Plasma 27 mg/dL 9-23 Above high normal [facility] Sodium [Moles/volume] in Serum or Plasma 139 mmol/L 132-146 N [facility] Potassium [Moles/volume] in Serum or Plasma 3.8 mmol/L 3.5-5.5 N [facility] Chloride [Moles/volume] in Serum or Plasma 109 mmol/L 99-109 N [facility] Carbon dioxide, total [Moles/volume] in Serum or Plasma 23 mmol/L 20 -31 N [facility] Anion gap in Serum or Plasma 11 mmol/L 8-16 N [facility] Glucose [Mass/volume] in Serum or Plasma 299 mg/dL 74-106 Above high normal [facility] Creatinine 1.2 mg/dL 0.5-1.1 Above high normal [facility] Glomerular filtration rate/1.73 sq M.pre dicted [Volume Rate/Area] in Serum or Plasma Greater Than 60 ABOVE 60 [facility] Alanine aminotransferase [Enzymatic acti vity/volume] in Serum or Plasma by With P-5'-P 54 U/L 10-49 Above high normal [facility] Aspartate aminotransferase [Enzymatic ac tivity/volume] in Serum or Plasma by With P-5'-P 37 U/L 0-33 Above high normal [facility] Alkaline phosphatase [Enzymatic activity/volume] in Serum or Plasma 69 U/L 45-129 N [facility] Calcium [Mass/volume] in Serum or Plasma 8.7 mg/dL 8.5-10.1 [facility] Bilirubin.total [Mass/volume] in Serum or Plasma 1.3 mg/dL 0.3-1.2 Above high normal [facility] Albumin [Mass/volume] in Serum or Plasma by Bromocresol purple (BCP) dye binding method 3.4 g/dL 3.2-4.8 [facility] ital Protein [Mass/volume] in Serum or Plasma 6.5 g/dL 5.7-8.2 [facility] ID Date Data Source [id number] 05/30/2020 05:21:00 AM [facility] Anticoagulant or Thrombolytic medication :: Coumadin/Warfarin Name Value Range Interpretation Code Description Data Evelin rce(s) Supporting Document(s) Prothrombin Time (Patient) 12.4 s 9.6-12.3 Above high normal [facility] INR 1.2 0.9-1.1 Above [facility] THE INR IS OPERATIONALLY DEFINED FOR RIKI SH PLASMA FROMPATIENTS STABILIZED ON ORAL ANTICOAGULANTS.ROUTINE ANTICOAGULANT THERAPY 2.0-3.0RECURRENT SYSTEMIC EMBOLISM/HEART VALVE REPLACEMENT 2.5-3.5 ID Date Data Source [id number] 05/29/2020 10:52:00 PM [facility] Special Instructions: from the last labs Name Value Range Interpretation Code Description Data Evelin rce(s) Supporting Document(s) Natriuretic peptide.B prohormone N-Terminal [Mass/volu me] in Serum or Plasma 2564.00 pg/mL 0.00-175 Above [facility] normal [facility] ospital ID Date Data Source [id number] 05/29/2020 10:40:00 PM [facility] Name Value Range Interpretation Code Description Data Evelin rce(s) Supporting Document(s) Urea nitrogen [Mass/volume] in Serum or Plasma 26 mg/dL 9-23 Above high normal [facility] Sodium [Moles/volume] in Serum or Plasma 139 mmol/L 132-146 [facility] Potassium [Moles/volume] in Serum or Plasma 4.2 mmol/L 3.5-5.5 [facility] Chloride [Moles/volume] in Serum or Plasma 109 mmol/L 99-109 [facility] Carbon dioxide, total [Moles/volume] in Serum or Plasma 21 mmol/L 20 -31 [facility] Anion gap in Serum or Plasma 13 mmol/L 8-16 N [facility] Glucose [Mass/volume] in Serum or Plasma 319 mg/dL 74-106 Above [facility] Creatinine 1.2 mg/dL 0.5-1.1 Above high normal [facility] Glomerular filtration rate/1.73 sq M.pre dicted [Volume Rate/Area] in Serum or Plasma Greater Than 60 ABOVE 60 [facility] Calcium [Mass/volume] in Serum or Plasma 8.9 mg/dL 8.5-10.1 N [facility] ID Date Data Source [id number] 05/29/2020 10:40:00 PM [facility] Name Value Range Interpretation Code Description Data Evelin rce(s) Supporting Document(s) Troponin I.cardiac [Mass/volume] in Serum or Plasma 0.075 ng/mL 0.00- 0.09 [facility] Less than 0.09 NG/ML Negative0.10 - 0.77 NG/ML High Risk0.78 NG/ML or Greater PositiveThe WHO defined the cutoff (definition for diagnosis of NE)for this method as 0.78 ng/ml. ID Date Data Source [id number] 05/29/2020 06:52:00 PM [facility] Name: JAGJIT IBARRA : 1960 Age: 60 MR#: [id number] Admit Date: 05/29/20 Provider: Christo Llamas MD Room #: 281 Consulting Provider: [facility] Cardiology Dictation Date: 05/29/20 History Physical HPI [...] Medical History Deep vein thrombosis Diabetes mellitus [place] filter in place Hypertension Myocardial infarction Pacemaker [...] Smoking Status: Current every day smoker Additional [facility] information Additional Family History: Pt does [...] PT 12.6 H, INR 1.2 H, PTT ([place]) 29.1 05/29/20 14:35: WBC 11.2 H, RBC 5.73, Hgb 17.2, Hct 49.4, MCV 86.2, MCH 30.0, MCHC 34.8, RDW 12, Plt Count 239, MPV 10.3, Immature Gran % (Auto) 1.2, Neut % (Auto) 63.5, Lymph % (Auto) 25.6, [place]ock[place] % (Auto) 7.0, Eos % (Auto) 1.9, [...] No Organisms Detected Exam Const General: cooperative [facility] Mouth: moist mucous membranes Neck Neck: supple [...] rce(s) Supporting Document(s) ID Date Data Source [id number] 05/29/2020 07:20:00 PM [facility] ADD ONSpecial Instructions: can use bloo d sample in labSpecial Instructions: can use blood sample in lab ADD ONSpecial Instructions: can use bloo d sample in labSpecial Instructions: can use blood sample in lab Name Value Range Interpretation Code Description Data Evelin rce(s) Supporting Document(s) Magnesium [Mass/volume] in Serum or Plasma 2.0 mg/dL 1.3-2.7 N [facility] ID Date Data Source [id number] 05/29/2020 07:20:00 PM [facility] ADD ONSpecial Instructions: can use [...] <= 0.005 mIU/L 2.23 u[iU[facility]mL 0.35[facility] Data Source [id number] 05/29/2020 05:24:00 PM [facility] Anticoagulant or Thrombolytic medication : Coumadin/WarfarinIs test to R/O PE, DVT or VTE? Y Name Value Range Interpretation Code Description Data Evelin rce(s) Supporting Document(s) Troponin I.cardiac [Mass/volume] in Serum or Plasma 0.061 ng/mL 0.00- 0.09 [facility] Less than 0.09 NG/ML Negative0.10 - 0.77 NG/ML High Risk0.78 NG/ML or Greater PositiveThe WHO defined the cutoff (definition for diagnosis of NE)for this method as 0.78 ng/ml. ID Date Data Source [id number] 05/29/2020 04:56:00 PM [facility] Anticoagulant or Thrombolytic medication : Coumadin/WarfarinIs test to R/O PE, DVT or VTE? Y Name Value Range Interpretation Code Description Data Evelin rce(s) Supporting Document(s) Fibrin D-dimer [Units/volume] in Platelet poor plasma Less Than 0.1 9 0.0-0.50 [facility] @Report as less than 0.19@ Has QC been r un for this test today?PLEASE NOTE: THIS TEST WAS PERFORMED USING A PARTICLE-ENHANCED, IMMUNOTURBIDIMETRIC ASSAY AND HAS A SINGLE,CLINICALLY DERIVED CUTOFF OF 0.50 MG/L. ID Date Data Source [id number] 05/29/2020 05:41:00 PM [facility] THIS RP PANEL TESTS FOR SARS-CoV -2,(COVID-19)FilmArray Respiratory Panel is a Multiplexed NAAT-PCR testNORMAL VALUE FOR ALL 20 PATHOGENS IS "NOT DETECTED".The FilmArray RP panel detects Influenza A H1,H3 [id number] H1 viruses,Influenza B virus, Respiratory syncytialvirus, Human [...] CLINICIAN EVALUATING THE PATIENT.THE PERFORMANCE OF THE UnataARRAY RP HAS NOT BEEN ESTABLISHEDIN INDIVIDUALS WHO [...] rce(s) Supporting Document(s) ID Date Data Source [id number] 05/29/2020 02:52:00 PM EST [facility] [address] [place] [address] [phone] NAME SEX PT STATUS ACCOUNT NUMBER JAGJIT IBARRA [facility] ER [id number] ORDERING PHYSICIAN LOCATION MEDICAL RECORD NO. José Miguel Shannon MD ER [id number] ATTENDING PHYSICIAN DATE OF DATE OF EXAM/TIME [...] Reported By Nestor Knowles MD on 05/29/20 6648 Signed By Nestor Knowles MD on 05/29/201451 Date Time CC: No Family PHYS Provided; Nestor Knowles MD Techn: CUMME Trans Dt/Tm: Trans by: DT Prt Dt/Tm: [id number]: Total DLP = 0.00 mGy-cm Fluoroscopy Time (in secs): Name Value Range Interpretation Code Description Data Evelin rce(s) Supporting Document(s) ID Date Data Source [id number] 05/29/2020 02:40:00 PM [facility] ED Physician Documentation NAME: JAGJIT IBARRA : 1960 AGE: 60 MR#: [id number] SERVICE DATE: 05/29/[address]: José Miguel Shannon MD PRIMARY CARE DR: No Family PHYS Provided ROOM#: [facility] (Adult, General) General Chief Complaint: [...] % (Auto) 63.5, Lymph % (Auto) 25.6, [place] % (Auto) 7.0, Eos % (Auto) 1.9, [...] rce(s) Supporting Document(s) ID Date Data Source [id number] 05/29/2020 04:27:00 PM EST [facility] Name Value Range Interpretation Code Description Data Evelin rce(s) Supporting Document(s) Hemoglobin A1c [Mass/volume] in Blood 10.1 % 3.8-5.6 Above hig h normal [facility] @Review & document. @A repeat was not [...] blood glucose control.* High risk of developing rat exterminator complications such asretinopathy, nephropathy, neuropathy, cardiopathy, etc. Some danger of hypoglycemic reaction in Type I diabetics.Some glucose intolerant individuals and "Sub Clinical"diabetics may demonstrate HGBA1C levels in this area. Glucose mean value [Moles/volume] in Blood Estimated f rom glycated hemoglobin 243 mg/dL [facility] An A1C of 7% - the goal of diabetic ther apy - is equivalentto an EAG of 154 mg/dl. ID Date Data Source [id number] 05/29/2020 02:46:00 PM EST [facility] Name Value Range Interpretation Code Description Data Evelin rce(s) Supporting Document(s) Leukocytes [#/volume] in Blood by Automated count 11.2 10*3/uL 4.45-10.71 Above high normal [facility] Erythrocytes [#/volume] in Blood by Automated count 5.73 10*6/uL 4.3- 6.1 N [facility] Hemoglobin [Moles/volume] in Blood 17.2 g/dL 13-18 N [facility] Hematocrit [Volume Fraction] of Blood by Automated count 49.4 % 4 2-52 N [facility] Erythrocyte mean corpuscular volume [Ent itic volume] in Cord blood by Automated count 86.2 fL 80-96 N [facility] ital Erythrocyte mean corpuscular hemoglobin [Entitic mass] by Automated count 30.0 pg 27-31 N [facility] l Erythrocyte mean corpuscular hemoglobin concentration [Mass/volume] in Cord blood 34.8 g/dL 33-37 N [facility] Erythrocyte distribution width [Entitic volume] by Automated count 12 % 11-15 N [facility] Platelets [#/volume] in Blood by Automated count 239 10*3/uL 130-472 N [facility] Platelet mean volume [Entitic volume] in Blood 10.3 fL 9.1-13.1 N [facility] Neutrophils/100 leukocytes in Blood by Automated count 63.5 % 41- 77 N [facility] Neutrophils [#/volume] in Blood by Automated count 7.1 U 1.7-7.6 N [facility] Lymphocytes/100 leukocytes in Blood by Automated count 25.6 % 14- 46 N [facility] Lymphocytes [#/volume] in Blood by Automated count 2.9 U 0.6-4.6 N [facility] Monocytes/100 leukocytes in Blood by Automated count 7.0 % 4-12 N [facility] Monocytes [#/volume] in Blood by Automated count 0.8 U 0.2-1.2 N [facility] Eosinophils/100 leukocytes in Blood by Automated count 1.9 % 0-7 N [facility] Eosinophils [#/volume] in Blood by Automated count 0.2 U 0.0-0.5 N [facility] Basophils/100 leukocytes in Blood by Automated count 0.8 % 0.4-1 .3 N [facility] Basophils [#/volume] in Blood by Automated count 0.1 U 0.0-0.2 N [facility] NUCLEATED RED BLOOD CELL 0 % [facility] NUCLEATED RED BLOOD CELL# 0 U [facility] Immature granulocytes [Presence] in Blood by Automated count 0-2 N [facility] Immature granulocytes [#/volume] in Blood by Automated count 0.1 U 0-0.1 N [facility] Manual Differential panel - Blood NO [facility] ID Date Data Source [id number] 05/29/2020 03:04:00 PM EST [facility] Name Value Range Interpretation Code Description Data Evelin rce(s) Supporting Document(s) Urea nitrogen [Mass/volume] in Serum or Plasma 22 mg/dL 9-23 N [facility] Sodium [Moles/volume] in Serum or Plasma 137 mmol/L 132-146 N [facility] Potassium [Moles/volume] in Serum or Plasma 5.5 mmol/L 3.5-5.5 [facility] Chloride [Moles/volume] in Serum or Plasma 105 mmol/L 99-109 N [facility] Carbon dioxide, total [Moles/volume] in Serum or Plasma 23 mmol/L 20 -31 N [facility] Anion gap in Serum or Plasma 15 mmol/L 8-16 N [facility] Glucose [Mass/volume] in Serum or Plasma 424 mg/dL 74-106 No range defined, or normal ranges don't apply [facility] @Review test & document. []Called to MARCO ANTONIO Sanz @ [phone] by Sumi Mead. Results readback.Repeated by: Sumi Mead 05/29/20 0402.Result Confirmation: 419 mg/dL Creatinine 1.4 mg/dL 0.5-1.1 Above high normal [facility] Glomerular filtration rate/1.73 sq M.pre dicted [Volume Rate/Area] in Serum or Plasma 52 ml/min ABOVE 60 [facility] Alanine aminotransferase [Enzymatic acti vity/volume] in Serum or Plasma by With P-5'-P 51 U/L 10-49 Above high normal [facility] Aspartate aminotransferase [Enzymatic ac tivity/volume] in Serum or Plasma by With P-5'-P 24 U/L 0-33 N [facility] pital Alkaline phosphatase [Enzymatic activity/volume] in Serum or Plasma 93 U/L 45-129 N [facility] Calcium [Mass/volume] in Serum or Plasma 9.2 mg/dL 8.5-10.1 N [facility] Bilirubin.total [Mass/volume] in Serum or Plasma 1.2 mg/dL 0.3-1.2 N [facility] Albumin [Mass/volume] in Serum or Plasma by Bromocresol purple (BCP) dye binding method 3.9 g/dL 3.2-4.8 N [facility] ital Protein [Mass/volume] in Serum or Plasma 7.6 g/dL 5.7-8.2 N [facility] ID Date Data Source [id number] 05/29/2020 03:04:00 PM [facility] Name Value Range Interpretation Code Description Data Evelin rce(s) Supporting Document(s) Creatine kinase [Enzymatic activity/volume] in Serum or Plasma 56 U /L 33-211 N [facility] Creatine kinase.MB [Enzymatic activity/volume] in Serum or P lasma 1.1 ng/mL 0.0-5.0 N [facility] Chemistry studies (set) 1.9 % [facility] ID Date Data Source [id number] 05/29/2020 03:04:00 PM [facility] Name Value Range Interpretation Code Description Data Eevlin rce(s) Supporting Document(s) Troponin I.cardiac [Mass/volume] in Serum or Plasma 0.055 ng/mL 0.00- 0.09 [facility] Less than 0.09 NG/ML Negative0.10 - 0.77 NG/ML High Risk0.78 NG/ML or Greater PositiveThe WHO defined the cutoff (definition for diagnosis of NE)for this method as 0.78 ng/ml. ID Date Data Source [id number] 05/29/2020 03:06:00 PM EST [facility] Anticoagulant or Thrombolytic medication : Coumadin/Warfarin Name Value Range Interpretation Code Description Data Evelin rce(s) Supporting Document(s) Prothrombin Time (Patient) 12.6 s 9.6-12.3 Above high normal [facility] INR 1.2 0.9-1.1 Above high normal [facility] THE INR IS OPERATIONALLY DEFINED FOR RIKI SH PLASMA FROMPATIENTS STABILIZED ON ORAL ANTICOAGULANTS.ROUTINE ANTICOAGULANT THERAPY 2.0-3.0RECURRENT SYSTEMIC EMBOLISM/HEART VALVE REPLACEMENT 2.5-3.5 aPTT.lupus sensitive (LA screen) 29.1 s 22.7-31.6 N [facility] ID Date Data Source [id number] 05/29/2020 12:00:00 AM EST [facility] Name Value Range Interpretation Code Description Data Evelin rce(s) Supporting Document(s) SARS-CoV2 Rapid PCR [facility] This lab was ordered by [facility] isabella LEE and reported by [facility]. Procedure Social History Code Duration Value Status Description Data Source(s ) Smoking 01/19/2021 12:00:00 AM EDT Current Smoker completed Curre nt Smoker eCW1 ([facility]) Alcohol intake 07/13/2020 12:00:00 AM EST Current drinker of al cohol (finding) completed Current drinker of alcohol (finding) [facility] Tobacco use and exposure 07/13/2020 12:00:00 AM EST Never used co mpleted Never used [facility] Cigarette pack-years 07/13/2020 12:00:00 AM EST UNK completed [facility] Cigarettes smoked current (pack per day) - Reported 07/13/19 12:00:00 AM EST UNK completed [facility] Smoking 07/13/2020 12:00:00 AM EST Former smoker completed Former smoker [facility] 07/11/2020 03:00:59 PM EST Former smoker completed Former smoker [facility] Smoking 07/11/2020 03:00:00 PM EST Former smoker completed Former smoker [facility] 07/05/2020 04:38:11 PM EST Former smoker completed Former smoker [facility] 07/05/2020 04:38:11 PM EST Former smoker completed Former smoker [facility] Smoking 07/05/2020 04:38:00 PM EST Former smoker completed Former smoker [facility] Smoking 07/05/2020 04:38:00 PM EST Former smoker completed Former smoker [facility] Alcohol intake 06/23/2020 12:00:00 AM EST Yes completed [facility] Cigarettes smoked current (pack per day) - Reported 06/23/19 12:00:00 AM EST UNK completed [facility] Smoking 06/23/2020 12:00:00 AM EST Former smoker completed Former smoker [facility] Alcohol intake 06/20/2020 12:00:00 AM EST Current drinker of al cohol (finding) completed Current drinker of alcohol (finding) [employer] [facility] 06/15/2020 07:30:28 AM EST Former smoker completed Former smoker [facility] Smoking 06/15/2020 07:30:00 AM EST Former smoker completed Former smoker [facility] 06/06/2020 08:19:34 PM EST Current every day smoker co mpleted Current every day smoker [facility] Smoking 06/06/2020 08:19:00 PM EST Current every day smoker co mpleted Current every day smoker [facility] 05/31/2020 08:09:42 AM EST Current every day smoker co mpleted Current every day smoker [facility] Smoking 05/31/2020 08:09:00 AM EST Current every day smoker co mpleted Current every day smoker [facility] 05/29/2020 02:46:17 PM EST Current every day smoker co mpleted Current every day smoker [facility] Smoking 05/29/2020 02:46:00 PM EST Current every day smoker co mpleted Current every day smoker [facility] 05/26/2016 12:00:00 AM EST - 05/28/2020 12:00:00 AM EST Cigarette Smoker completed Cigarette Smoker [facility] 05/26/2016 12:00:00 AM EST - 05/28/2020 12:00:00 AM EST Current smoker completed Current smoker [facility] 05/29/2020 12:00:00 AM EST Cigarette Smoker completed Cig arette Smoker [facility] 05/29/2020 12:00:00 AM EST Current smoker completed Curre nt smoker [facility] Vital Signs ID Date Data Source [id number] Name Value Range Interpretation Code Description Data Source(s) Body weight 285 [lb_av] 285 [lb_av] eCW1 ([facility]) Body weight 129.28 kg 129.28 kg eCW1 ([facility] Body height 72 [in_i] 72 [in_i] eCW1 ([facility] Body mass index (BMI) [Ratio] 38.65 kg/m2 38.65 kg/m2 eCW1 ([facility]) Heart rate 69 /min 69 /min eCW1 (Count includes the [facility]) Respiratory rate 18 /min 18 /min eCW1 ([facility]) Body temperature 96.6 [degF] 96.6 [degF] eCW1 ( [facility]) Systolic blood pressure 178 mm[Hg] 178 mm[Hg] e CW1 ([facility]) Diastolic blood pressure 88 mm[Hg] 88 mm[Hg] eCW1 ([facility]) Oxygen saturation in Arterial blood by Pulse oximetry 80 % 80 % [facility] Heart rate 77 /min 77 /min [facility] Respiratory rate 15 /min 15 /min [facility] Systolic blood pressure 139 mm[Hg] 139 mm[Hg] M [facility] Diastolic blood pressure 74 mm[Hg] 74 mm[Hg] [facility] Body temperature 35.44 Bernadette 35.44 Bernadette [facility] Body height 182.[address] [facility] Body weight 128.[address] [facility] Body mass index (BMI) [Ratio] 38.53 kg/m2 38.53 kg/m2 [facility] Systolic blood pressure 134 mm[Hg] 134 mm[Hg] S [facility] Diastolic blood pressure 84 mm[Hg] 84 mm[Hg] [facility] Heart rate 65 /min 65 /min [facility] Body temperature 36.61 Bernadette 36.61 Bernadette [facility] Oxygen saturation in Arterial blood by Pulse oximetry 97 % 97 % [facility] Respiratory rate 14 /min 14 /min [facility] Body weight 127.914 kg 127.914 kg [facility] Body mass index (BMI) [Ratio] 38.25 kg/m2 38.25 kg/m2 [facility] Systolic blood pressure 159 mm[Hg] 159 mm[Hg] [facility] Diastolic blood pressure 88 mm[Hg] 88 mm[Hg] [facility] Heart rate 72 /min 72 /min [facility] Body temperature 36.5 Bernadette 36.5 Bernadette [facility] Respiratory rate 18 /min 18 /min [facility] Oxygen saturation in Arterial blood by Pulse oximetry 97 % 97 % [facility] Body height 182.[address] [facility] Body weight 127.[address] [facility] Body mass index (BMI) [Ratio] 38.25 kg/m2 38.25 kg/m2 [facility] Heart rate 80 /min 80 /min [...] 10 MG Oral Tablet 07/15/2020 12:00:00 AM [facility] Lisinopril 40 MG Oral Tablet 07/15/2020 12:00:00 AM [facility] Hydralazine Hydrochloride 50 MG Oral Tablet 07/14/2020 12:00:00 AM [facility] apixaban 5 MG Oral Tablet 07/14/2020 12:00:00 AM [facility] 3 ML insulin detemir 100 UNT/ML Pen Injector 07/14/2020 12:00:00 AM [facility] 3 ML Insulin, Aspart, Human 100 UNT/ML Pen Injector 07/14/19 12:00:00 AM [facility] aripiprazole 5 MG Oral Tablet 06/24/2020 12:00:00 AM [facility] Lisinopril 10 MG Oral Tablet 06/22/2020 12:00:00 AM [facility] sodium chloride 0.9% solution 06/21/2020 12:00:00 AM [facility] sodium chloride 0.9 % injection 06/21/2020 12:00:00 AM [facility] sodium chloride 0.9 % injection 06/21/2020 12:00:00 AM [facility] Menthol 100 MG/ML / methyl salicylate 150 MG/ML Topica l Cream 06/21/2020 12:00:00 AM [facility] 3 ML insulin detemir 100 UNT/ML Pen Injector 06/21/2020 12:00:00 AM [facility] lidocaine (XYLOCAINE) 10 mg/mL (1 %) injection 06/21/2020 12:00:00 AM [facility] 3 ML Insulin, Aspart, Human 100 UNT/ML Pen Injector 06/21/19 12:00:00 AM [facility] 3 ML Insulin, Aspart, Human 100 UNT/ML Pen Injector 06/21/19 12:00:00 AM [facility] sodium chloride 0.9 % injection 06/21/2020 12:00:00 AM [facility] heparin sodium, porcine 10 UNT/ML Prefilled Syringe 06/21/19 12:00:00 AM [facility] heparin sodium, porcine 10 UNT/ML Prefilled Syringe 06/21/19 12:00:00 AM [facility] Glucose 0.4 MG/MG Oral Gel 06/21/2020 12:00:00 AM [facility] Glucagon 1 MG Injection 06/21/2020 12:00:00 AM [facility] Famotidine 20 MG Oral Tablet 06/21/2020 12:00:00 AM [facility] Cefazolin 2000 MG Injection 06/21/2020 12:00:00 AM [facility] Capsaicin 0.25 MG/ML Topical Cream 06/21/2020 12:00:00 AM [facility] alteplase (CATHFLO ACTIVASE) 2 mg injection 06/21/2020 12:00:00 AM [facility] Ondansetron 4 MG Disintegrating Oral Tablet 06/21/2020 12:00:00 AM [facility] Docusate Sodium 100 MG Oral Capsule 06/21/2020 12:00:00 AM [facility] Acetaminophen 325 MG Oral Tablet 06/21/2020 12:00:00 AM [facility] Warfarin Sodium 5 MG Oral Tablet 07/09/2019 12:00:00 AM [facility] MELATONIN PO [facility] aripiprazole 10 MG Oral Tablet [facility] apixaban 5 MG Oral Tablet [facility] Metformin hydrochloride [address] [facility]
[2021-03-26] MEDS ORDERED: GLUCOSE 4GM CHEW TABLET PO PRN (23:40)
[2021-03-26] MEDS ORDERED: GLUCAGON INJ 1MG VIAL SC PRN (23:40)
[2021-03-26] MEDS ORDERED: DEXTROSE 50% 50 ML SYRINGE IV PRN (23:40)
[2021-03-27] VITALS (7 sets, daily range): BP systolic 160–190; BP diastolic 74–92; PULSE 69
[2021-03-27 00:04] LABS: RSV AMPLIFICATION NEGATIVE (NEGATIVE)
[2021-03-27 00:04] LABS: TROPONIN I < 0.02 NG/ML (< 0.10)
--- NOTE | 2021-03-27 00:16 | HPEPDOC ---
[facility] Medical History & Physical Date of Admission Mar 26, 2021 Date of Service: Mar 26, 2021 Attending Physician: KYLIE HAILE MD History and Physical CHIEF COMPLAINT: chest pain HISTORY OF PRESENT ILLNESS: Jagjit is a 60-year-old male who presents with left-sided chest pain that began at 1800 and has not changed. Describes pain as aching, 89/10, constant. He tells me the pain is located in left lateral chest, nonradiating. He tells me the pain was sudden in onset. He tells me pain is unchanged with positioning, deep inspiration, external pressure. Patient has taken 3 nitroglycerin and 4 aspirins 81 mg without improvement of his pain. He tells me he has a history of DC in 2013 and that his current pain feels the same. Patient does tell me he is compliant with all of his home medications. He tells me he does not monitor his blood pressure at home, but took all of his blood pressure medications this morning as prescribed. Denies recent travel, recent illness. Denies changes in vision, shortness of breath, palpitations, abdominal pain, changes in sensation, syncope. In ED, BP 210/110, additional VSS unremarkable. CBC, BMP WNL. Troponin 0 0.01. POC glucose 357. EKG NSR with T wave abnormality suggesting lateral ischemia, unchanged from EKG 09/2020. Imaging unremarkable, as noted below. Patient did receive morphine for chest pain, and tells me it did not help. PAST MEDICAL HISTORY: 1. HTN 2. NIDDM 3. History of DC (2013) 4. History CVA (2014) 5. History PE (2019) 6. CHF 7. CAD s/p 2 cardiac stents 8. A. fib on Eliquis 9. HLD 10. Hypothyroidism 11. PTSD 12. Depression/anxiety 13. Migraine PAST SURGICAL HISTORY: 1. IVC filter placement 2. Cardiac stent placement x2 3. Pacemaker placement 4. Pacemaker removal 2/2 infection 5. TMJ 6. Knee surgery x11 7. Spinal fusion 8. Back/neck surgery SOCIAL HISTORY: Marital status: Single Resides in: Apartment in [facility] Tobacco use: Current smoker, 1 pack/day x 5 years ETOH: Socially Illicit drug use: Denies Other relevant social factors: Currently lives in his apartment with his girlfriend, who he tells me he is moving in with him soon FAMILY HISTORY: HTN, DM, CAD, breast cancer, lung cancer ALLERGIES: Please see below. REVIEW OF SYSTEMS: CONSTITUTIONAL: Denies fevers/chills, fatigue HEENT: Denies headache, changes in vision, rhinorrhea, nasal congestion, sore throat, changes in hearing. CARDIOVASCULAR: Chest pain. Denies palpitations. RESPIRATORY: Denies shortness of breath, cough. GASTROINTESTINAL: Denies abdominal pain, nausea, vomiting, constipation, diarrhea. GENITOURINARY: Denies changes in urination, dysuria. MUSCULOSKELETAL: Denies muscle aches, joint pain. PSYCHIATRIC: Reports recent depressed mood. NEUROLOGIC: Denies changes in sensation, numbness/tingling. HOME MEDICATIONS: Please see below. PHYSICAL EXAMINATION: VITAL SIGNS: Temperature 97.8, pulse 87, respiratory rate 16, blood pressure 174/89, pulse oximetry 98% on room air. GENERAL APPEARANCE: Alert, awake, laying in stretcher, NAD. HEENT: NC/AT, EOMI, nares patent, moist mucous membranes, poor dentition. CARDIOVASCULAR: Irregularly irregular rhythm, regular rate, no murmurs/rubs/gallops, no significant tenderness with palpation of left lateral chest. LUNGS: CTA bilaterally, no wheezing/rales/rhonchi, no accessory muscles used. ABDOMEN: Soft, nontender, nondistended, obese. MUSCULOSKELETAL: Normal ROM, strength 5/5 with significant effort noticed on left side (upper and lower extremities). EXTREMITIES: No edema, 2+ DP/PT pulses bilaterally. NEUROLOGICAL: CN III-XII intact. PSYCHIATRIC: Anxious mood. LABORATORY DATA: See below. IMAGING: (03/26) CXR No acute findings. (03/26) CTA Chest No acute findings. No focal infiltrates. The thoracic aorta is unremarkable. No aortic aneurysm is seen. MICROBIOLOGY: Please see below. ASSESSMENT/PLAN: Jagjit is 60M PMH HTN, CAD s/p 2 cardiac stents on ASA 81mg, Afib on Eliquis, hx DC (2013) who presents with left-sided chest pain unchanged following nitroglycerin and aspirin, and was found to have BP 210/110, troponin 0.01, noncardiac chest pain according to rod criteria, concerning for hypertensive urgency and will be admitted for further w/u to r/o ACS. #Chest pain, acute Patient has hx DC in 2013. Today, patient is found to have noncardiac chest pain according to rod criteria. In ED, patient's troponin 0.01. Will continue to trend troponin every 6 hours x2 In ED, EKG NSR with T wave abnormalities unchanged from prior EKG (09/2020). Will repeat EKG every 6 hours x2 Start acetaminophen 1000mg every 6 hours as needed for moderate pain Start morphine 2g every 4 hours as needed for severe pain On telemetry #HTN urgency, acute improving In ED, BP 210/110. Patient received hydralazine 10 mg. BP 174/89 during evaluation Start IV hydralazine 10 mg every 6 hours as needed, if SBP >180 Continue home amlodipine 10mg, lisinopril 40 mg, carvedilol 25 mg twice daily On telemetry Continue to monitor BP #Hyperglycemia, acute, asymptomatic POC BS in ED 357 Start SSI, FSBS #NIDDM w/ neuropathy, chronicstable Continue home gabapentin 600 mg 3 times daily #A. fib, chronic, rate controlled HR 70 during evaluation Continue home Eliquis 5 mg #History CVA without residual deficits, chronicstable Continue home Lipitor 80mg Continue home ASA 81 mg #CHF, chronicstable Patient does not appear fluid overloaded #HLD, chronicstable Continue home Lipitor 80 mg #GERD, chronicstable Continue home famotidine 20 mg twice daily #PTSD with depression/anxiety, chronicstable Continue home duloxetine 60 mg, aripiprazole 5 mg #?Hypothyroidism, chronic Patient tells me he has history of hypothyroidism and takes medication at home, however, according to medication reconciliation, patient is not on Synthroid/Levothyroxine. Check TSH, T4 #Possible BPH, chronic Continue home tamsulosin 0.4 mg #Tobacco dependence Start NicoDerm 21 mg patch daily #DVT prophylaxis Continue Eliquis DIET: Consistent carb, 2 g sodium ACTIVITY: As tolerated DISPO: Pending clinical improvement CODE STATUS: Full code Vital Signs Vital Signs Date Time Temp Pulse Resp B/P (MAP) Pulse Ox O2 Delivery O2 Flow Rate FiO2 03/26/21 23:15 79 16 176/84 (114) 97 Room Air 03/26/21 20:38 97.8 Laboratory Data Labs 24H Laboratory Tests 2 03/26/21 20:24: Immature Granulocyte % (Auto) 0.8, Neutrophils (%) (Auto) 52.2, Lymphocytes (%) (Auto) 35.9, Monocytes (%) (Auto) 8.4H, Eosinophils (%) (Auto) 2.0, Basophils (%) (Auto) 0.7, Neutrophils # (Auto) 3.7, Lymphocytes # (Auto) 2.6, Monocytes # (Auto) 0.6, Eosinophils # (Auto) 0.1, Basophils # (Auto) 0.1, Nucleated Red Blood Cells % (auto) 0.0, Prothrombin Time 14.6H, Prothromb Time International Ratio 1.10, Total Bilirubin 0.6, Direct Bilirubin 0.2, Aspartate Amino Transf (AST/SGOT) 25, Alanine Aminotransferase (ALT/SGPT) 50, Alkaline Phosphatase 89, Total Protein 7.0, Albumin 3.8, Albumin/Globulin Ratio 1.2, Lipase 73 03/26/21 20:36: POC Troponin I (Misc) 0.00 03/26/21 20:48: POC Glucose (Misc Panel) 357H, POC Sodium (Misc Panel) 139, POC Potassium (Misc Panel) 3.7, POC Chloride (Misc Panel) 103, POC Total CO2 (Misc Panel) 21.0L, POC Blood Urea Nitrogen (Misc Panel 17, POC Ionized Calcium (Misc Panel) 4.7, POC Creatinine (Misc Panel) 0.9, POC Hematocrit (Misc Panel) 42.0 03/26/21 22:24: POC Troponin I (Misc) 0.01 03/26/21 22:54: CBC/BMP Laboratory Tests 03/26/21 20:24 Home Medications Scheduled Alogliptin Benzoate (Nesina) 12.5 Mg Tablet, 12.5 MG PO DAILY Amlodipine Besylate (Norvasc) 10 Mg Tablet, 10 MG PO DAILY Apixaban (Eliquis) 5 Mg Tablet, 5 MG PO BID Aripiprazole (Abilify) 10 Mg Tablet, 5 MG PO DAILY Aspirin (Aspirin) 81 Mg Tab.chew, 81 MG PO DAILY Atorvastatin Calcium (Atorvastatin Calcium) 80 Mg Tablet, 80 MG PO DAILY Carvedilol (Carvedilol) 25 Mg Tablet, 25 MG PO BID Cholecalciferol (Vitamin D3) (Vitamin D3) 1,000 Unit Tablet, 1,000 UNITS PO DAILY Cyanocobalamin (Vitamin B-12) (Vitamin B-12) 500 Mcg Tablet, 500 MCG PO DAILY Duloxetine Hcl (Duloxetine HCl) 60 Mg Capsule.dr, 60 MG PO DAILY Famotidine (Famotidine) 20 Mg Tablet, 20 MG PO BID Folic Acid (Folic Acid) 1 Mg Tablet, 1 MG PO DAILY Gabapentin (Neurontin) 600 Mg Tablet, 600 MG PO TID Glipizide (Glipizide) 10 Mg Tablet, 10 MG PO DAILY Lisinopril (Lisinopril) 40 Mg Tablet, 40 MG PO DAILY Metformin HCl (Metformin HCl) 1,000 Mg Tablet, 1,000 MG PO BID [place]-3 Fatty Acids/Fish Oil (Fish Oil 1,000 mg Capsule) 1 Each Capsule, 1,000 MG PO DAILY Tamsulosin HCl (Flomax) 0.4 Mg Capsule, 0.4 MG PO DAILY Zolpidem Tartrate (Zolpidem Tartrate) 10 Mg Tablet, 5 MG PO QHS Scheduled PRN Diclofenac Sodium (Diclofenac Sodium) 1% 100GM Gel..gram., 4 GM TOP TID PRN for BACK PAIN Nitroglycerin (Nitrostat) 0.4 Mg Tab.subl, 0.4 MG SL NITRO PRN for CHEST PAIN Tramadol HCl (Tramadol HCl) 50 Mg Tablet, 50 MG PO QID PRN for MODERATE/SEVERE PAIN (PS 5-10) Allergies Coded Allergies: cyclobenzaprine (Verified Adverse Reaction, Mild, anxiety, 01/09/19) nifedipine (Verified Adverse Reaction, Mild, angina, 10/30/20) prochlorperazine (Verified Adverse Reaction, Mild, vomiting, 10/30/20) A-FIB/CHADSVASC A-FIB History Current/History of A-Fib/PAF?: Yes Current PO Anticoag Therapy: Yes Dahiana Fatima DO Mar 27, 2021 00:16
[2021-03-27] MEDS ORDERED: TRAM50TA2 PO (00:21)
[2021-03-27] MEDS ORDERED: AMLO10TA PO (00:21)
[2021-03-27] MEDS ORDERED: NITR4TASL SL (00:21)
[2021-03-27] MEDS ORDERED: NESI12.5 PO (00:21)
[2021-03-27] MEDS ORDERED: GLIP10TA6 PO (00:21)
[2021-03-27] MEDS ORDERED: ABIL10TA9 PO (00:21)
[2021-03-27] MEDS ORDERED: ZOLP10TA2 PO (00:21)
[2021-03-27] MEDS ORDERED: DICL1GEL3 TOP (00:21)
[2021-03-27] MEDS ORDERED: DULO1CAP6 PO (00:21)
[2021-03-27] MEDS ORDERED: HOME MED LIST COMPLETE! XX SCH (00:25)
[2021-03-27] MEDS ORDERED: hydrALAZINE 20MG/ML 1ML VIAL (J0360 PER 20MG) IV PRN (01:05)
[2021-03-27] MEDS ORDERED: ACETAMINOPHEN 500 MG TAB PO PRN (01:05)
[2021-03-27] MEDS: GABAPENTIN 300 MG CAP PO SCH ×4 (01:23→20:44)
[2021-03-27] MEDS: CARVedilol 12.5 MG TAB PO SCH ×3 (01:23→20:44)
[2021-03-27] MEDS: APIXABAN 5 MG TAB (ELIQUIS) PO SCH ×3 (01:23→20:44)
[2021-03-27] MEDS: HumaLOG INSULIN (NovoLOG) PER UNIT SC SCH ×5 (01:24→20:44)
[2021-03-27] MEDS: MORPHINE 2 MG/ML 1ML VIAL (J2270) IV PRN ×3 (01:25→16:04)
[2021-03-27] MEDS: FAMOTIDINE 20 MG TAB PO SCH ×3 (01:28→20:44)
[2021-03-27 04:58] LABS: HEMATOCRIT 40.5 % (42.0-52.0); HEMOGLOBIN 14.2 g/dl (13.5-17.5); MEAN CORPUSCULAR HEMOGLOBIN 30.2 pg (27.0-33.0); MEAN CORPUSCULAR HGB CONC 35.1 g/dl (32.0-36.5); MEAN CORPUSCULAR VOLUME 86.2 fl (80.0-96.0); PLATELET COUNT, AUTOMATED 190 10^3/uL (150-450); WHITE BLOOD COUNT 6.8 10^3/uL (4.0-10.0)
[2021-03-27 05:33] LABS: BLOOD UREA NITROGEN 21 MG/DL (7-18); CALCIUM LEVEL 8.9 MG/DL (8.5-10.1); CARBON DIOXIDE LEVEL 28 MEQ/L (21-32); CHLORIDE LEVEL 108 MEQ/L (98-107); FREE T4 1.05 NG/DL (0.76-1.46); GLOMERULAR FILTRATION RATE > 60.0 (>56); GLUCOSE, FASTING 228 MG/DL (70-100); SODIUM LEVEL 139 MEQ/L (136-145); TROPONIN I < 0.02 NG/ML (< 0.10)
[2021-03-27] MEDS: traMADol 50 MG TAB PO PRN ×2 (08:26→23:50)
--- NOTE | 2021-03-27 08:31 | ECGEPIP ---
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
--- NOTE | 2021-03-27 08:32 | ECGEPIP ---
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
[2021-03-27] MEDS ORDERED: FLUBLOK(EGG FREE)(QUAD)INFLUENZA VACC 0.5ML SYRINGE 18YRS & OLDER IM ONE (09:00)
[2021-03-27] MEDS ORDERED: ARIPiprazole 10 MG TAB PO SCH (09:00)
[2021-03-27] MEDS: NICOTINE 21MG/24HR 1 EA TRANSDERMAL TD SCH (09:35)
[2021-03-27] MEDS: ASPIRIN 81 MG CHEW TABLET PO SCH (09:36)
[2021-03-27] MEDS: ATORVASTATIN 20 MG TAB PO SCH (09:36)
[2021-03-27] MEDS: VITAMIN D 1,000 INTERNATIONAL UNITS TABLET PO SCH (09:37)
[2021-03-27] MEDS: FOLIC ACID 1 MG TAB PO SCH (09:37)
[2021-03-27] MEDS: CYANOCOBALAMIN 500 MCG TAB PO SCH (09:37)
[2021-03-27] MEDS: lisinopriL 40 MG TAB PO SCH (09:37)
[2021-03-27] MEDS: TAMSULOSIN 0.4 MG CAP PO SCH (09:37)
[2021-03-27] MEDS: DULoxetine 30MG CAPSULE (CYMBALTA) PO SCH (09:38)
--- NOTE | 2021-03-27 12:43 | IPNPDOC ---
Text Note Date of Service The patient was seen on 03/27/21. NOTE SUBJECTIVE: -Chest pain is better this morning, now 4/10 -Hypertension is better SBP 174 from 199 VITAL SIGNS: see below GENERAL APPEARANCE: Alert, awake, laying in stretcher, NAD. HEENT: NC/AT, EOMI, nares patent, moist mucous membranes CARDIOVASCULAR: RRR this AM, no murmurs/rubs/gallops LUNGS: CTA bilaterally, no wheezing/rales/rhonchi, no accessory muscles used. ABDOMEN: Soft, nontender, nondistended, obese. MUSCULOSKELETAL: Normal ROM, strength 5/5 with significant effort noticed on left side (upper and lower extremities). EXTREMITIES: No edema, 2+ DP/PT pulses bilaterally. NEUROLOGICAL: CN III-XII intact. PSYCHIATRIC: AOx3 LABORATORY DATA: Reviewed WBC 6.8 Hg 14.2 platelets 190 na 139 K 4 Cr 1 troponin <0.02 x 2 IMAGING: (03/26) CXR No acute findings. (03/26) CTA Chest No acute findings. No focal infiltrates. The thoracic aorta is unremarkable. No aortic aneurysm is seen. MICROBIOLOGY: Please see below. ASSESSMENT/PLAN: 60yo M with essential HTN, CAD s/p 2 cardiac stents on ASA 81mg, Afib on Eliquis, hx [place] (2013), DM, obesity, smoker, who presented with left-sided chest pain unchanged following nitroglycerin and aspirin and admitted for hypertensive urgency. #Chest pain likely 2/2 HTN urgency - EKG NSR with T wave abnormalities unchanged from prior EKG (09/2020). -Troponin negative x 2 -Telemetry - acetaminophen 1000mg every 6 hours as needed for moderate pain - morphine 2g every 4 hours as needed for severe pain #HTN urgency, improving In ED, BP 210/110. -Continue home amlodipine 10mg, lisinopril 40 mg, carvedilol 25 mg twice daily -Add hydral 25mg PO QID. DC PRN IV pushes -Q4H vitals -telemetry #DM -hold oral antihyperglycemics -SSI, FSBS AC/HS -hypoglycemia protocol -consistent carb, 2g sodium diet #Chronic DM neuropathy -Continue home gabapentin 600 mg 3 times daily #Chronic A. fib: currently in sinus -continue coreg BID -Continue home Eliquis 5 mg BID #History CVA without residual deficits -Continue home Lipitor 80mg -Continue home ASA 81 mg #CHF, chronic, euvolemic #HLD -Continue home Lipitor 80 mg #GERD -Continue home famotidine 20 mg twice daily #PTSD with depression/anxiety -Continue home duloxetine 60 mg and aripiprazole 5 mg #Hypothyroidism -TSH and free T4 wnl #Possible BPH, chronic Continue home tamsulosin 0.4 mg #Tobacco dependence -continue NicoDerm 21 mg patch daily #DVT prophylaxis -Continue Eliquis DIET: Consistent carb, 2 g sodium ACTIVITY: As tolerated DISPO: Pending clinical improvement CODE STATUS: Full code VS,Fishbone, I+O VS, Fishbone, I+O Laboratory Tests 03/26/21 20:24 03/27/21 04:41 Vital Signs Date Time Temp Pulse Resp B/P (MAP) Pulse Ox O2 Delivery O2 Flow Rate FiO2 03/27/21 09:37 86 187/93 03/27/21 09:35 18 03/27/21 08:00 98.2 98 Nasal Cannula 2.0 I&O- Last 24 Hours up to 6 AM 03/27/21 06:00 Intake Total 600 ml Output Total 250 ml Balance 350 ml TERESSA HAYNES MD Mar 27, 2021 12:43
[2021-03-27] MEDS: **hydrALAZINE HCL** 25 MG TAB PO SCH ×3 (13:11→23:50)
[2021-03-28] VITALS: BP 162/94
[2021-03-28] MEDS: MORPHINE 2 MG/ML 1ML VIAL (J2270) IV PRN (02:05)
[2021-03-28 04:00] VITALS: BP 166/88
[2021-03-28 05:43] LABS: HEMATOCRIT 41.8 % (42.0-52.0); HEMOGLOBIN 14.4 g/dl (13.5-17.5); MEAN CORPUSCULAR HEMOGLOBIN 29.6 pg (27.0-33.0); MEAN CORPUSCULAR HGB CONC 34.4 g/dl (32.0-36.5); PLATELET COUNT, AUTOMATED 184 10^3/uL (150-450); RED BLOOD COUNT 4.86 10^6/uL (4.30-6.10); WHITE BLOOD COUNT 7.7 10^3/uL (4.0-10.0)
[2021-03-28 06:09] LABS: BLOOD UREA NITROGEN 18 MG/DL (7-18); CALCIUM LEVEL 8.9 MG/DL (8.5-10.1); CARBON DIOXIDE LEVEL 27 MEQ/L (21-32); CHLORIDE LEVEL 105 MEQ/L (98-107); CREATININE FOR GFR 0.95 MG/DL (0.70-1.30); GLOMERULAR FILTRATION RATE > 60.0 (>56); GLUCOSE, FASTING 208 MG/DL (70-100); POTASSIUM SERUM 4.1 MEQ/L (3.5-5.1); SODIUM LEVEL 136 MEQ/L (136-145)
[2021-03-28] MEDS: **hydrALAZINE HCL** 25 MG TAB PO SCH ×2 (06:24→12:02)
[2021-03-28] MEDS: traMADol 50 MG TAB PO PRN (06:25)
[2021-03-28] MEDS: HumaLOG INSULIN (NovoLOG) PER UNIT SC SCH ×2 (09:00→12:01)
[2021-03-28] MEDS: CARVedilol 12.5 MG TAB PO SCH (09:01)
[2021-03-28] MEDS: FOLIC ACID 1 MG TAB PO SCH (09:01)
[2021-03-28] MEDS: APIXABAN 5 MG TAB (ELIQUIS) PO SCH (09:01)
[2021-03-28] MEDS: ASPIRIN 81 MG CHEW TABLET PO SCH (09:01)
[2021-03-28] MEDS: lisinopriL 40 MG TAB PO SCH (09:01)
[2021-03-28] MEDS: ATORVASTATIN 20 MG TAB PO SCH (09:02)
[2021-03-28] MEDS: VITAMIN D 1,000 INTERNATIONAL UNITS TABLET PO SCH (09:02)
[2021-03-28] MEDS: DULoxetine 30MG CAPSULE (CYMBALTA) PO SCH (09:02)
[2021-03-28] MEDS: TAMSULOSIN 0.4 MG CAP PO SCH (09:02)
[2021-03-28] MEDS: FAMOTIDINE 20 MG TAB PO SCH (09:02)
[2021-03-28] MEDS: GABAPENTIN 300 MG CAP PO SCH (09:03)
[2021-03-28] MEDS: CYANOCOBALAMIN 500 MCG TAB PO SCH (09:06)
[2021-03-28] MEDS: NICOTINE 21MG/24HR 1 EA TRANSDERMAL TD SCH (09:14)
[2021-03-28 11:46] VITALS: BP 137/85
[2021-03-28 12:02] VITALS: BP 137/85
[2021-03-28] MEDS ORDERED: HYDR25TA PO (12:24)
--- NOTE | 2021-03-28 12:44 | DS.PDOC ---
Discharge Summary General Date of Admission Mar 26, 2021 at 23:10 Date of Discharge 03/28/2021 Attending Physician: TERESSA HAYNES MD Discharge Summary PROCEDURES PERFORMED DURING STAY: None ADMITTING DIAGNOSES: Hypertensive urgency Chest pain 2/2 hypertensive urgency without evidence of ACS DISCHARGE DIAGNOSES: Hypertensive urgency Chest pain 2/2 hypertensive urgency without evidence of ACS DM CA w/ History of [place] (2014) History CVA (2014) History PE (2019) CHF A. fib on Eliquis HLD Hypothyroidism PTSD Depression/anxiety Migraine COMPLICATIONS/CHIEF COMPLAINT: Chest Pain; Hypertensive Urgency. HISTORY OF PRESENT ILLNESS: 60-year-old M with a who with left-sided chest pain that began a few hours prior to presentation, was 89/10, constant, in left lateral chest, nonradiating. It was sudden in onset, unchanged with positioning, deep inspiration, external pressure and had taken 3 nitroglycerin and 4 aspirins 81 mg without improvement of his pain. He reported that he does not monitor his blood pressure at home, but took all of his blood pressure medications as prescribed. He denied recent travel, recent illness. Denied changes in vision, shortness of breath, palpitations, abdominal pain, changes in sensation, syncope. HOSPITAL COURSE: In ED his BP was 210/110, additional VSS unremarkable. CBC, BMP WNL. Troponin 0 0.01. POC glucose 357. EKG NSR with T wave abnormality suggesting lateral ischemia, unchanged from EKG 09/2020. Imaging was unremarkable, as noted below. Patient did receive morphine for chest pain. He was admitted for hypertensive urgency and monitored on telemetry with continued optimization of medications. His hypertension has now resolved as he has had 25mg PO Q6H hydralazine added to his regimen. He is now being discharged home on amlodipine 10mg QD, lisinopril 40mg QD, coreg 25mg BID and hydralazine 25mg Q6H. He is now being discharged home and will follow up with PCP shortly within 1 week. DISCHARGE MEDICATIONS: Please see below. ALLERGIES: Please see below. PHYSICAL EXAMINATION ON DISCHARGE: VITAL SIGNS: Please see below. GENERAL APPEARANCE: Alert, awake, laying in stretcher, NAD. HEENT: NC/AT, EOMI, nares patent, moist mucous membranes CARDIOVASCULAR: RRR, no murmurs/rubs/gallops LUNGS: CTA bilaterally, no wheezing/rales/rhonchi, no accessory muscles used. ABDOMEN: Soft, nontender, nondistended, obese. MUSCULOSKELETAL: Normal ROM, strength 5/5 with significant effort noticed on left side (upper and lower extremities). EXTREMITIES: No edema, 2+ DP/PT pulses bilaterally. NEUROLOGICAL: CN III-XII intact. PSYCHIATRIC: AOx3 LABORATORY DATA: Please see below. IMAGING: (03/26) CXR No acute findings. (03/26) CTA Chest No acute findings. No focal infiltrates. The thoracic aorta is unremarkable. No aortic aneurysm is seen. PROGNOSIS: Good ACTIVITY: As tolerated DIET: consistent carb, 2g sodium DISCHARGE PLAN: Home with amlodipine 10mg QD, lisinopril 40mg QD, coreg 25mg BID and hydralazine 25mg Q6H. To follow up with PCP shortly within 1 week. DISPOSITION: Home DISCHARGE INSTRUCTIONS: Home with amlodipine 10mg QD, lisinopril 40mg QD, coreg 25mg BID and hydralazine 25mg Q6H. To follow up with PCP shortly within 1 week. ITEMS TO FOLLOWUP ON ON OUTPATIENT: HTN DISCHARGE CONDITION: Stable TIME SPENT ON DISCHARGE: 40 minutes. Vital Signs/I&Os Vital Signs Date Time Temp Pulse Resp B/P (MAP) Pulse Ox O2 Delivery O2 Flow Rate FiO2 03/28/21 12:02 137/85 03/28/21 11:46 96.7 75 18 95 Room Air 03/28/21 04:00 2.0 I&O- Last 24 Hours up to 6 AM 03/28/21 06:00 Intake Total 2859 ml Output Total 1625 ml Balance 1234 ml Laboratory Data Labs 24H Laboratory Tests 2 03/27/21 13:24: Lab Scanned Report Miscellaneous Lab 03/27/21 17:40: Bedside Glucose (Misc Panel) 276H 03/27/21 20:36: Bedside Glucose (Misc Panel) 277H 03/28/21 05:23: Nucleated Red Blood Cells % (auto) 0.0, Anion Gap 4L, Glomerular Filtration Rate > 60.0, Calcium Level 8.9 03/28/21 11:37: Bedside Glucose (Misc Panel) 282H CBC/BMP Laboratory Tests 03/28/21 05:23 FSBS Laboratory Tests Test 03/27/21 17:40 03/27/21 20:36 03/28/21 11:37 Range/Units Bedside Glucose (Misc Panel) 276 277 282 70-105 MG/DL Discharge Medications Scheduled Alogliptin Benzoate (Nesina) 12.5 Mg Tablet, 12.5 MG PO DAILY, (Reported) Amlodipine Besylate (Norvasc) 10 Mg Tablet, 10 MG PO DAILY, (Reported) Apixaban (Eliquis) 5 Mg Tablet, 5 MG PO BID, (Reported) Aripiprazole (Abilify) 10 Mg Tablet, 5 MG PO DAILY, (Reported) Aspirin (Aspirin) 81 Mg Tab.chew, 81 MG PO DAILY, (Reported) Atorvastatin Calcium (Atorvastatin Calcium) 80 Mg Tablet, 80 MG PO DAILY, (Reported) Carvedilol (Carvedilol) 25 Mg Tablet, 25 MG PO BID, (Reported) Cholecalciferol (Vitamin D3) (Vitamin D3) 1,000 Unit Tablet, 1,000 UNITS PO DAILY, (Reported) Cyanocobalamin (Vitamin B-12) (Vitamin B-12) 500 Mcg Tablet, 500 MCG PO DAILY, (Reported) Duloxetine Hcl (Duloxetine HCl) 60 Mg Capsule.dr, 60 MG PO DAILY, (Reported) Famotidine (Famotidine) 20 Mg Tablet, 20 MG PO BID, (Reported) Folic Acid (Folic Acid) 1 Mg Tablet, 1 MG PO DAILY, (Reported) Gabapentin (Neurontin) 600 Mg Tablet, 600 MG PO TID, (Reported) Glipizide (Glipizide) 10 Mg Tablet, 10 MG PO DAILY, (Reported) Hydralazine HCl (Hydralazine HCl) 25 Mg Tablet, 25 MG PO Q6H Lisinopril (Lisinopril) 40 Mg Tablet, 40 MG PO DAILY, (Reported) Metformin HCl (Metformin HCl) 1,000 Mg Tablet, 1,000 MG PO BID, (Reported) [place]-3 Fatty Acids/Fish Oil (Fish Oil 1,000 mg Capsule) 1 Each Capsule, 1,000 MG PO DAILY, (Reported) Tamsulosin HCl (Flomax) 0.4 Mg Capsule, 0.4 MG PO DAILY, (Reported) Zolpidem Tartrate (Zolpidem Tartrate) 10 Mg Tablet, 5 MG PO QHS, (Reported) Scheduled PRN Diclofenac Sodium (Diclofenac Sodium) 1% 100GM Gel..gram., 4 GM TOP TID PRN for BACK PAIN, (Reported) Nitroglycerin (Nitrostat) 0.4 Mg Tab.subl, 0.4 MG SL NITRO PRN for CHEST PAIN, (Reported) Tramadol HCl (Tramadol HCl) 50 Mg Tablet, 50 MG PO QID PRN for MODERATE/SEVERE PAIN (PS 5-10), (Reported) Allergies Coded Allergies: cyclobenzaprine (Verified Adverse Reaction, Mild, anxiety, 01/09/19) nifedipine (Verified Adverse Reaction, Mild, angina, 10/30/20) prochlorperazine (Verified Adverse Reaction, Mild, vomiting, 10/30/20) TERESSA HAYNES MD Mar 28, 2021 12:43
--- NOTE | 2021-03-28 22:11 | ECGEPIP ---
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
== END 2021-03-28 16:00 | disposition home or self-care (01) | DRG 305 ==
LOC: M ED 20:08 → M ED INP 23:10 → ENRESERV 03-27 00:09 → M PCU 03-27 00:31
PROVIDERS: ADMIT Family Medicine; ATTEND Internal Medicine
DX: I16.0 Hypertensive urgency (principal); I48.20 Chronic atrial fibrillation, unspecified; I25.2 Old myocardial infarction; I11.0 Hypertensive heart disease with heart failure; E11.65 Type 2 diabetes mellitus with hyperglycemia; I50.9 Heart failure, unspecified; I25.10 Atherosclerotic heart disease of native coronary artery without angina pectoris; E78.5 Hyperlipidemia, unspecified; E03.9 Hypothyroidism, unspecified; F43.10 Post-traumatic stress disorder, unspecified; F32.A Depression, unspecified; F41.9 Anxiety disorder, unspecified; F17.200 Nicotine dependence, unspecified, uncomplicated; G43.909 Migraine, unspecified, not intractable, without status migrainosus; E11.40 Type 2 diabetes mellitus with diabetic neuropathy, unspecified; Z98.1 Arthrodesis status; Z95.828 Presence of other vascular implants and grafts; Z86.73 Personal history of transient ischemic attack (TIA), and cerebral infarction without residual deficits; Z86.711 Personal history of pulmonary embolism; R07.89 Other chest pain; K21.9 Gastro-esophageal reflux disease without esophagitis; N40.0 Benign prostatic hyperplasia without lower urinary tract symptoms; Z79.01 Long term (current) use of anticoagulants; Z79.84 Long term (current) use of oral hypoglycemic drugs; Z79.82 Long term (current) use of aspirin; Z79.899 Other long term (current) drug therapy; Z88.8 Allergy status to other drugs, medicaments and biological substances

== ENCOUNTER 2021-10-03 10:06 | Observation (INO) | payer OTHER ==
[~2021-10-03] VITALS: Ht 182.9 cm; Wt 111.1 kg
[~2021-10-03 10:06] MED LIST changes: +ABIL10TA9 PO; +AMLO10TA PO; -D31000TA2 PO; +DICL1GEL3 TOP; +GLIP10TA6 PO; +HYDR25TA PO; +NESI12.5 PO; +NITR4TASL SL; +TRAM50TA2 PO; +VITA100093 PO; +ZOLP10TA2 PO
[2021-10-03] MEDS ORDERED: NS 1,000 ML IV ONE (10:40)
[2021-10-03] MEDS ORDERED: ONDANSETRON 4MG/2ML VIAL IV ONE (10:45)
[2021-10-03 10:58] LABS: BASO # 0.1 10^3/uL (0.0-0.2); BASO % 0.9 % (0.0-1.0); EOS # 0.2 10^3/uL (0.0-0.5); EOS % 2.5 % (0.0-3.0); HEMATOCRIT 46.8 % (42.0-52.0); HEMOGLOBIN 16.4 g/dl (13.5-17.5); LYMPH # 1.7 10^3/uL (1.5-5.0); LYMPH % 21.2 % (24.0-44.0); MEAN CORPUSCULAR HEMOGLOBIN 29.2 pg (27.0-33.0); MEAN CORPUSCULAR VOLUME 83.4 fl (80.0-96.0); MONO # 0.5 10^3/uL (0.0-0.8); MONO % 6.2 % (2.0-8.0); NEUTROPHILS # 5.3 10^3/uL (1.5-8.5); NEUTROPHILS % 67.9 % (36.0-66.0); PLATELET COUNT, AUTOMATED 234 10^3/uL (150-450); RED BLOOD COUNT 5.61 10^6/uL (4.30-6.10); WHITE BLOOD COUNT 7.9 10^3/uL (4.0-10.0)
[2021-10-03] MEDS: MORPHINE 2 MG/ML 1ML VIAL IV PRN ×2 (11:05→12:30)
[2021-10-03 11:06] LABS: INR 0.93; PARTIAL THROMBOPLASTIN TIME 29.3 SECONDS (25.9-37.0); PROTHROMBIN TIME 12.9 SECONDS (12.7-14.5)
[2021-10-03] MEDS ORDERED: ISOVUE-370 76% 100ML VIAL As Ordered ONE (11:10)
[2021-10-03 11:15] LABS: CK-MB VALUE MASS < 1.0 NG/ML (<3.6); CPK CREATINE PHOSPHOKINASE 44 U/L (39-308); MB/CK RELATIVE INDEX 2.27 (< OR =4)
[2021-10-03 11:37] LABS: ALBUMIN 4.1 GM/DL (3.2-5.2); ALT/SGPT 34 U/L (12-78); BILIRUBIN,DIRECT 0.2 MG/DL (0.0-0.2); BILIRUBIN,TOTAL 0.8 MG/DL (0.2-1.0); BLOOD UREA NITROGEN 14 MG/DL (7-18); CALCIUM LEVEL 9.9 MG/DL (8.8-10.2); CARBON DIOXIDE LEVEL 27 MEQ/L (21-32); CHLORIDE LEVEL 101 MEQ/L (98-107); CREATININE FOR GFR 1.18 MG/DL (0.70-1.30); FREE T4 0.96 NG/DL (0.76-1.46); GLOMERULAR FILTRATION RATE > 60.0 (>49); GLUCOSE, FASTING 491 MG/DL (70-100); LIPASE 112 U/L (73-393); NT-PRO BNP 101 PG/ML (<125); POTASSIUM SERUM 4.8 MEQ/L (3.5-5.1); SODIUM LEVEL 133 MEQ/L (136-145); TOTAL PROTEIN 7.8 GM/DL (6.4-8.2)
[2021-10-03] MEDS ORDERED: HumuLIN R (REGULAR) INSULIN (NovoLIN R) **100U/ML** PER UNIT IV ONE (11:50)
[2021-10-03 12:12] LABS: CK-MB VALUE MASS < 1.0 NG/ML (<3.6); CPK CREATINE PHOSPHOKINASE 54 U/L (39-308); MB/CK RELATIVE INDEX 1.85 (< OR =4)
[2021-10-03] MEDS ORDERED: MORPHINE 2 MG/ML 1ML VIAL IV PRN (13:50)
[2021-10-03] MEDS ORDERED: GI COCKTAIL 50ML BTL(HYOSCYAMINE/MAALOX/LIDOCAINE VISCOUS)(1:3:1) PO ONE (13:50)
[2021-10-03 14:03] LABS: RSV AMPLIFICATION NEGATIVE (NEGATIVE)
[2021-10-03 14:32] LABS: CK-MB VALUE MASS < 1.0 NG/ML (<3.6); CPK CREATINE PHOSPHOKINASE 30 U/L (39-308); MB/CK RELATIVE INDEX 3.33 (< OR =4)
[2021-10-03] MEDS ORDERED: ARIP1TAB6 PO (14:46)
[2021-10-03] MEDS ORDERED: C 50TAB PO (14:46)
[2021-10-03] MEDS ORDERED: CARV25TA PO (14:46)
[2021-10-03] MEDS ORDERED: ASPI81TA27 PO (14:46)
[2021-10-03] MEDS ORDERED: ACET-839 PO (14:46)
[2021-10-03] MEDS ORDERED: ALOG25TA PO (14:46)
[2021-10-03] MEDS ORDERED: VITMTA PO (14:46)
[2021-10-03] MEDS ORDERED: HOME MED LIST COMPLETE! XX SCH (14:50)
[2021-10-03] MEDS ORDERED: GLUCAGON INJ 1MG VIAL SC PRN (16:10)
[2021-10-03] MEDS ORDERED: NITROGLYCERIN 0.4 MG SUBL TABLET SL PRN (16:10)
[2021-10-03] MEDS ORDERED: DEXTROSE 50% 50 ML SYRINGE IV PRN (16:10)
[2021-10-03] MEDS ORDERED: GLUCOSE 4GM CHEW TABLET PO PRN (16:10)
[2021-10-03] MEDS ORDERED: MOM 30ML SUSPENSION UDC PO PRN (16:10)
[2021-10-03] MEDS ORDERED: ACETAMINOPHEN TAB 650MG DOSE (2X325MG) PO PRN (16:10)
[2021-10-03] MEDS ORDERED: lisinopriL 40MG TAB PO ONE (16:20)
[2021-10-03] MEDS ORDERED: PILL CUTTER 1 EACH XX PRN (16:25)
[2021-10-03] MEDS: GABAPENTIN 300 MG CAP PO SCH ×2 (18:18→23:31)
[2021-10-03] MEDS: INSULIN LISPRO (NovoLOG) PER UNIT SC SCH (18:21)
[2021-10-03] MEDS ORDERED: CARVedilol 12.5 MG TAB PO SCH (21:00)
[2021-10-03] MEDS ORDERED: INSULIN LISPRO (NovoLOG) PER UNIT SC SCH (21:00)
[2021-10-03] MEDS: APIXABAN 5 MG TAB (ELIQUIS) PO SCH (23:31)
[2021-10-03] MEDS: FAMOTIDINE 20 MG TAB PO SCH (23:32)
[2021-10-04 02:36] VITALS: BP 128/74
[2021-10-04] MEDS ORDERED: MORPHINE 4 MG/ML 1ML VIAL/SYRINGE IV ONE (04:15)
[2021-10-04 04:25] VITALS: BP 126/76; PULSE 65
[2021-10-04 04:28] VITALS: BP 126/76
[2021-10-04 04:40] VITALS: PULSE 56
[2021-10-04 06:11] LABS: HEMATOCRIT 43.9 % (42.0-52.0); HEMOGLOBIN 15.3 g/dl (13.5-17.5); MEAN CORPUSCULAR HEMOGLOBIN 29.5 pg (27.0-33.0); MEAN CORPUSCULAR HGB CONC 34.9 g/dl (32.0-36.5); MEAN CORPUSCULAR VOLUME 84.7 fl (80.0-96.0); PLATELET COUNT, AUTOMATED 223 10^3/uL (150-450); RED BLOOD COUNT 5.18 10^6/uL (4.30-6.10); WHITE BLOOD COUNT 8.6 10^3/uL (4.0-10.0)
[2021-10-04 06:44] LABS: BLOOD UREA NITROGEN 20 MG/DL (7-18); CALCIUM LEVEL 9.6 MG/DL (8.8-10.2); CARBON DIOXIDE LEVEL 26 MEQ/L (21-32); CHLORIDE LEVEL 105 MEQ/L (98-107); CREATININE FOR GFR 0.93 MG/DL (0.70-1.30); GLOMERULAR FILTRATION RATE > 60.0 (>49); GLUCOSE, FASTING 250 MG/DL (70-100); MAGNESIUM LEVEL 2.1 MG/DL (1.8-2.4); POTASSIUM SERUM 4.4 MEQ/L (3.5-5.1); SODIUM LEVEL 138 MEQ/L (136-145)
[2021-10-04] MEDS: INSULIN LISPRO (NovoLOG) PER UNIT SC SCH ×2 (08:05→12:32)
[2021-10-04] MEDS: FAMOTIDINE 20 MG TAB PO SCH (08:05)
[2021-10-04 08:06] VITALS: BP 125/84
[2021-10-04] MEDS: GABAPENTIN 300 MG CAP PO SCH ×2 (08:06→12:32)
[2021-10-04] MEDS: APIXABAN 5 MG TAB (ELIQUIS) PO SCH (08:07)
[2021-10-04] MEDS ORDERED: CARVedilol 12.5 MG TAB PO SCH (09:00)
[2021-10-04] MEDS ORDERED: lisinopriL 40MG TAB PO SCH (09:00)
[2021-10-04] MEDS ORDERED: FOLIC ACID 1 MG TAB PO SCH (09:00)
[2021-10-04] MEDS ORDERED: TAMSULOSIN 0.4 MG CAP PO SCH (09:00)
[2021-10-04] MEDS ORDERED: MULTIVITAMINS/MINERALS THERAP 1 TAB PO SCH (09:00)
[2021-10-04] MEDS ORDERED: ASCORBIC ACID 500 MG TAB PO SCH (09:00)
[2021-10-04] MEDS ORDERED: DULoxetine 30MG CAPSULE (CYMBALTA) PO SCH (09:00)
[2021-10-04] MEDS ORDERED: CYANOCOBALAMIN 500 MCG TAB PO SCH (09:00)
[2021-10-04] MEDS ORDERED: ASPIRIN 81MG ENTERIC TABLET PO SCH (09:00)
[2021-10-04] MEDS ORDERED: VITAMIN D 1,000 INTERNATIONAL UNITS TABLET PO SCH (09:00)
[2021-10-04] MEDS ORDERED: ATORVASTATIN 20 MG TAB PO SCH (09:00)
[2021-10-04] MEDS ORDERED: NICOTINE 21MG/24HR 1 EA TRANSDERMAL TD SCH (09:00)
== END 2021-10-04 13:13 | disposition home or self-care (01) ==
LOC: EDBD 10:06 → M ED 10:06 → M ED INP 10:07 → ENRESERV 10-04 01:00 → M MSPAV 10-04 02:20
PROVIDERS: ADMIT Internal Medicine; ATTEND Internal Medicine
DX: R07.89 Other chest pain (principal); I16.0 Hypertensive urgency; R11.2 Nausea with vomiting, unspecified; R19.7 Diarrhea, unspecified; I11.0 Hypertensive heart disease with heart failure; E11.65 Type 2 diabetes mellitus with hyperglycemia; I50.9 Heart failure, unspecified; I25.10 Atherosclerotic heart disease of native coronary artery without angina pectoris; Z95.5 Presence of coronary angioplasty implant and graft; I48.0 Paroxysmal atrial fibrillation; E78.5 Hyperlipidemia, unspecified; E03.9 Hypothyroidism, unspecified; F43.10 Post-traumatic stress disorder, unspecified; F32.A Depression, unspecified; F41.9 Anxiety disorder, unspecified; G43.909 Migraine, unspecified, not intractable, without status migrainosus; E11.40 Type 2 diabetes mellitus with diabetic neuropathy, unspecified; K21.9 Gastro-esophageal reflux disease without esophagitis; N40.0 Benign prostatic hyperplasia without lower urinary tract symptoms; Z86.73 Personal history of transient ischemic attack (TIA), and cerebral infarction without residual deficits; Z86.711 Personal history of pulmonary embolism; Z79.899 Other long term (current) drug therapy; Z79.82 Long term (current) use of aspirin; Z79.01 Long term (current) use of anticoagulants; Z79.84 Long term (current) use of oral hypoglycemic drugs; Z88.8 Allergy status to other drugs, medicaments and biological substances
CPT/HCPCS: 36415; 71045; 71275; 74177; 80047; 80048; 80076; 81001; 82550; 82553; 83690; 83735; 83880; 84439; 84443; 84484; 85025; 85027; 85610; 85730; 87631; 93005; 93041; 94760; 96374; 96375; 96376; 99285; J1815; J2270; J2405; Q9967

== ENCOUNTER 2022-02-05 15:36 | Emergency (ER) | payer OTHER ==
[~2022-02-05] VITALS: Ht 182.9 cm; Wt 115.5 kg
[~2022-02-05 15:36] MED LIST changes: +ACET-839 PO; +ALOG25TA PO; +ASPI81TA27 PO; +C 50TAB PO; +VITMTA PO
[2022-02-05 15:37] VITALS: BP 195/101
[2022-02-05] MEDS ORDERED: diazePAM 5MG TABLET PO ONE (18:15)
[2022-02-05] MEDS ORDERED: methylPREDNISolone 125MG 2ML VIAL IM ONE (18:15)
[2022-02-05] MEDS ORDERED: MEDR4PAK PO (19:35)
[2022-02-05] MEDS ORDERED: METH-1164 PO (19:35)
== END 2022-02-05 19:44 | disposition home or self-care (01) ==
LOC: M ED 15:36
DX: M54.2 Cervicalgia (principal); E11.9 Type 2 diabetes mellitus without complications; I10 Essential (primary) hypertension; I25.2 Old myocardial infarction; G89.29 Other chronic pain; M51.9 Unspecified thoracic, thoracolumbar and lumbosacral intervertebral disc disorder; Z95.0 Presence of cardiac pacemaker; Z79.899 Other long term (current) drug therapy; Z79.84 Long term (current) use of oral hypoglycemic drugs; Z79.82 Long term (current) use of aspirin; Z79.01 Long term (current) use of anticoagulants
CPT/HCPCS: 72125; 96372; 99282; J2930

== ENCOUNTER 2022-03-17 17:47 | Emergency (ER) | payer OTHER ==
[~2022-03-17] VITALS: Ht 185.4 cm; Wt 119.7 kg
[~2022-03-17 17:47] MED LIST changes: +MEDR4PAK PO; +METH-1164 PO
[2022-03-17] MEDS ORDERED: diazePAM 10 MG TAB PO ONE (21:45)
[2022-03-17] MEDS ORDERED: LIDOCAINE 5% (LIDODERM) PATCH TD ONE (21:45)
[2022-03-17] MEDS ORDERED: MORPHINE 4 MG/ML 1ML VIAL/SYRINGE IV ONE (23:30)
[2022-03-17 23:49] LABS: BASO # 0.1 10^3/uL (0.0-0.2); BASO % 0.9 % (0.0-1.0); EOS # 0.2 10^3/uL (0.0-0.5); EOS % 3.3 % (0.0-3.0); HEMATOCRIT 40.6 % (42.0-52.0); HEMOGLOBIN 13.9 g/dl (13.5-17.5); LYMPH # 2.5 10^3/uL (1.5-5.0); LYMPH % 36.2 % (24.0-44.0); MEAN CORPUSCULAR HGB CONC 34.2 g/dl (32.0-36.5); MEAN CORPUSCULAR VOLUME 87.5 fl (80.0-96.0); MONO # 0.6 10^3/uL (0.0-0.8); NEUTROPHILS # 3.4 10^3/uL (1.5-8.5); NEUTROPHILS % 49.7 % (36.0-66.0); PLATELET COUNT, AUTOMATED 183 10^3/uL (150-450); RED BLOOD COUNT 4.64 10^6/uL (4.30-6.10); WHITE BLOOD COUNT 6.9 10^3/uL (4.0-10.0)
[2022-03-17] MEDS ORDERED: methylPREDNISolone 125MG 2ML VIAL IV ONE (23:55)
[2022-03-18 00:36] LABS: CK-MB VALUE MASS 2.3 NG/ML (<3.6); MB/CK RELATIVE INDEX 1.65 (< OR =4)
[2022-03-18] MEDS ORDERED: PERCOCET 5MG/325MG TAB PO ONE (01:30)
[2022-03-18] MEDS ORDERED: OXYCODONE/APAP 5MG/325MG(HOME DOSE PACK) PO ONE (01:40)
[2022-03-18] MEDS ORDERED: OXYC1TAB23 PO (01:45)
[2022-03-18 01:59] VITALS: BP 128/78
== END 2022-03-18 02:08 | disposition home or self-care (01) ==
LOC: M ED 17:47
DX: M25.511 Pain in right shoulder (principal); E11.9 Type 2 diabetes mellitus without complications; E78.5 Hyperlipidemia, unspecified; I10 Essential (primary) hypertension; Z86.711 Personal history of pulmonary embolism; Z86.718 Personal history of other venous thrombosis and embolism; Z95.5 Presence of coronary angioplasty implant and graft; F17.200 Nicotine dependence, unspecified, uncomplicated; Z79.01 Long term (current) use of anticoagulants; Z79.84 Long term (current) use of oral hypoglycemic drugs; Z79.899 Other long term (current) drug therapy; Z88.8 Allergy status to other drugs, medicaments and biological substances
CPT/HCPCS: 71045; 73030; 80047; 82550; 82553; 83735; 84484; 85025; 93005; 93971; 96374; 96375; 99284; J2270; J2930

== ENCOUNTER 2022-03-20 16:23 | Emergency (ER) | payer OTHER ==
[~2022-03-20] VITALS: Ht 182.9 cm; Wt 118.2 kg
[~2022-03-20 16:23] MED LIST changes: +OXYC1TAB23 PO
[2022-03-20 16:42] VITALS: BP 186/98
== END 2022-03-20 18:50 | disposition left against medical advice (07) ==
LOC: M ED 16:23
DX: Z53.21 Procedure and treatment not carried out due to patient leaving prior to being seen by health care provider (principal)

== ENCOUNTER 2022-03-28 08:48 | Inpatient (IN) | payer OTHER ==
[2022-03-28] VITALS (17 sets, daily range): BP systolic 146–195; BP diastolic 72–100
[~2022-03-28] VITALS: Ht 182.9 cm; Wt 116.5 kg
[2022-03-28] MEDS ORDERED: ISOVUE-370 76% 100ML VIAL As Ordered ONE (09:36)
[2022-03-28 09:37] LABS: BASO # 0.1 10^3/uL (0.0-0.2); BASO % 1.1 % (0.0-1.0); EOS # 0.2 10^3/uL (0.0-0.5); EOS % 1.9 % (0.0-3.0); HEMATOCRIT 41.9 % (42.0-52.0); HEMOGLOBIN 14.7 g/dl (13.5-17.5); LYMPH # 1.9 10^3/uL (1.5-5.0); LYMPH % 22.8 % (24.0-44.0); MEAN CORPUSCULAR HEMOGLOBIN 30.7 pg (27.0-33.0); MEAN CORPUSCULAR HGB CONC 35.1 g/dl (32.0-36.5); MEAN CORPUSCULAR VOLUME 87.5 fl (80.0-96.0); MONO # 0.6 10^3/uL (0.0-0.8); MONO % 6.8 % (2.0-8.0); NEUTROPHILS # 5.5 10^3/uL (1.5-8.5); PLATELET COUNT, AUTOMATED 186 10^3/uL (150-450); RED BLOOD COUNT 4.79 10^6/uL (4.30-6.10); WHITE BLOOD COUNT 8.4 10^3/uL (4.0-10.0)
[2022-03-28 10:02] LABS: INR 0.97; PARTIAL THROMBOPLASTIN TIME 26.4 SECONDS (24.8-34.2); PROTHROMBIN TIME 13.1 SECONDS (12.5-14.5)
[2022-03-28] MEDS: MORPHINE 2 MG/ML 1ML VIAL IV PRN ×2 (10:02→22:03)
[2022-03-28 10:14] LABS: RSV AMPLIFICATION NEGATIVE (NEGATIVE)
[2022-03-28] MEDS ORDERED: LORazepam 2 MG/ML VIAL IV STA (10:19)
[2022-03-28 10:45] LABS: CK-MB VALUE MASS 1.6 NG/ML (<3.6); MB/CK RELATIVE INDEX 2.05 (< OR =4)
[2022-03-28 10:55] LABS: ALBUMIN 3.7 GM/DL (3.2-5.2); ALT/SGPT 34 U/L (12-78); BILIRUBIN,DIRECT 0.1 MG/DL (0.0-0.2); BILIRUBIN,TOTAL 0.6 MG/DL (0.2-1.0); BLOOD UREA NITROGEN 17 MG/DL (7-18); CALCIUM LEVEL 8.8 MG/DL (8.8-10.2); CARBON DIOXIDE LEVEL 28 MEQ/L (21-32); CHLORIDE LEVEL 100 MEQ/L (98-107); CREATININE FOR GFR 1.08 MG/DL (0.70-1.30); GLOMERULAR FILTRATION RATE > 60.0 (>49); GLUCOSE, FASTING 537 MG/DL (70-100); POTASSIUM SERUM 4.3 MEQ/L (3.5-5.1); SODIUM LEVEL 133 MEQ/L (136-145); TOTAL PROTEIN 6.7 GM/DL (6.4-8.2)
[2022-03-28] MEDS ORDERED: hydrALAZINE 20MG/ML 1ML VIAL (J0360 PER 20MG) IV ONE ×2 (13:00→16:00)
[2022-03-28] MEDS ORDERED: HumuLIN R (REGULAR) INSULIN (NovoLIN R) **100U/ML** PER UNIT IV ONE (13:05)
[2022-03-28] MEDS ORDERED: GLUCAGON INJ 1MG VIAL SC PRN (13:05)
[2022-03-28] MEDS ORDERED: GLUCOSE 4GM CHEW TABLET PO PRN (13:05)
[2022-03-28] MEDS ORDERED: DEXTROSE 50% 50 ML SYRINGE IV PRN (13:05)
[2022-03-28] MEDS ORDERED: ONDA-83 PO (13:34)
[2022-03-28] MEDS ORDERED: CARV25TA PO (13:34)
[2022-03-28] MEDS ORDERED: OXYC7.5T3 PO (13:34)
[2022-03-28] MEDS ORDERED: METH-1164 PO (13:34)
[2022-03-28] MEDS ORDERED: HOME MED LIST COMPLETE! XX SCH (13:35)
[2022-03-28] MEDS ORDERED: PILL CUTTER 1 EACH XX PRN (15:30)
[2022-03-28] MEDS ORDERED: KETOROLAC 30 MG/ML 1ML VIAL IV ONE (15:55)
[2022-03-28] MEDS: ACETAMINOPHEN 500 MG TAB PO PRN (16:11)
[2022-03-28] MEDS: **hydrALAZINE HCL** 25 MG TAB PO SCH (17:09)
[2022-03-28] MEDS: INSULIN LISPRO (NovoLOG) PER UNIT SC SCH ×2 (17:10→21:04)
[2022-03-28] MEDS ORDERED: PERCOCET 5MG/325MG TAB PO ONE (18:10)
[2022-03-28] MEDS ORDERED: ONDANSETRON 4MG 2ML VIAL IV PRN (18:25)
[2022-03-28] MEDS: FAMOTIDINE 20 MG TAB PO SCH (20:55)
[2022-03-28] MEDS: GABAPENTIN 300 MG CAP PO SCH (20:55)
[2022-03-28] MEDS: CARVedilol 12.5 MG TAB PO SCH (20:56)
[2022-03-28] MEDS: APIXABAN 5 MG TAB (ELIQUIS) PO SCH (20:56)
[2022-03-28] MEDS ORDERED: LEVEMIR (INSULIN DETEMIR) 1 UNITS/0.01ML SC SCH (21:00)
[2022-03-29] VITALS (13 sets, daily range): BP systolic 141–231; BP diastolic 69–109
[2022-03-29] MEDS: ACETAMINOPHEN 500 MG TAB PO PRN (03:06)
[2022-03-29] MEDS ORDERED: PERCOCET 5MG/325MG TAB PO PRN (04:25)
[2022-03-29 05:02] LABS: BASO # 0.1 10^3/uL (0.0-0.2); BASO % 0.9 % (0.0-1.0); EOS # 0.2 10^3/uL (0.0-0.5); EOS % 2.1 % (0.0-3.0); HEMOGLOBIN 13.6 g/dl (13.5-17.5); LYMPH # 2.5 10^3/uL (1.5-5.0); LYMPH % 32.7 % (24.0-44.0); MEAN CORPUSCULAR HEMOGLOBIN 30.1 pg (27.0-33.0); MEAN CORPUSCULAR HGB CONC 34.9 g/dl (32.0-36.5); MEAN CORPUSCULAR VOLUME 86.3 fl (80.0-96.0); MONO # 0.5 10^3/uL (0.0-0.8); MONO % 6.4 % (2.0-8.0); NEUTROPHILS # 4.3 10^3/uL (1.5-8.5); NEUTROPHILS % 56.1 % (36.0-66.0); PLATELET COUNT, AUTOMATED 158 10^3/uL (150-450); RED BLOOD COUNT 4.52 10^6/uL (4.30-6.10); WHITE BLOOD COUNT 7.7 10^3/uL (4.0-10.0)
[2022-03-29 05:40] LABS: HEMOGLOBIN A1c 9.9 %
[2022-03-29 05:58] LABS: BLOOD UREA NITROGEN 18 MG/DL (7-18); CALCIUM LEVEL 8.7 MG/DL (8.8-10.2); CARBON DIOXIDE LEVEL 26 MEQ/L (21-32); CHLORIDE LEVEL 103 MEQ/L (98-107); CHOLESTEROL LEVEL 211 MG/DL (<200); CHOLESTEROL RISK RATIO 5.552 (<5); CREATININE FOR GFR 0.74 MG/DL (0.70-1.30); GLOMERULAR FILTRATION RATE > 60.0 (>49); GLUCOSE, FASTING 253 MG/DL (70-100); HDL CHOLESTEROL 38 MG/DL (>40); LDL CHOLESTEROL 122 MG/DL (<100); NON-HDL-C 173 MG/DL; POTASSIUM SERUM 3.8 MEQ/L (3.5-5.1); SODIUM LEVEL 136 MEQ/L (136-145); TRIGLYCERIDES LEVEL 256 MG/DL (<150)
[2022-03-29] MEDS: **hydrALAZINE HCL** 25 MG TAB PO SCH ×4 (06:24→17:11)
[2022-03-29] MEDS: INSULIN LISPRO (NovoLOG) PER UNIT SC SCH ×4 (09:46→20:50)
[2022-03-29] MEDS: FAMOTIDINE 20 MG TAB PO SCH ×2 (09:47→20:51)
[2022-03-29] MEDS: APIXABAN 5 MG TAB (ELIQUIS) PO SCH ×2 (09:47→20:52)
[2022-03-29] MEDS: TAMSULOSIN 0.4 MG CAP PO SCH (09:47)
[2022-03-29] MEDS: ASPIRIN 81MG ENTERIC TABLET PO SCH (09:47)
[2022-03-29] MEDS: GABAPENTIN 300 MG CAP PO SCH ×4 (09:51→20:51)
[2022-03-29] MEDS: DULoxetine 30MG CAPSULE (CYMBALTA) PO SCH (09:51)
[2022-03-29] MEDS: ATORVASTATIN 20 MG TAB PO SCH (09:51)
[2022-03-29] MEDS: FOLIC ACID 1MG TAB PO SCH (09:51)
[2022-03-29] MEDS: CARVedilol 12.5 MG TAB PO SCH ×2 (09:51→20:52)
[2022-03-29] MEDS: PERCOCET 5MG/325MG TAB PO PRN ×2 (12:35→21:42)
[2022-03-29] MEDS ORDERED: KETOROLAC 30 MG/ML 1ML VIAL IV ONE (15:15)
[2022-03-29] MEDS ORDERED: MOM 30ML SUSPENSION UDC PO ONE (18:35)
[2022-03-29] MEDS: SENOKOT S TAB PO SCH (20:52)
[2022-03-29] MEDS: DICLOFENAC EPOLAMINE 1.3 % PATCH TOP SCH (20:53)
[2022-03-29] MEDS ORDERED: LEVEMIR (INSULIN DETEMIR) 1 UNITS/0.01ML SC SCH (21:00)
[2022-03-30] VITALS: BP 162/87
[2022-03-30 02:19] VITALS: BP 155/80
[2022-03-30 04:00] VITALS: BP 163/87
[2022-03-30] MEDS: PERCOCET 5MG/325MG TAB PO PRN (04:19)
[2022-03-30 05:50] LABS: BASO # 0.1 10^3/uL (0.0-0.2); BASO % 0.8 % (0.0-1.0); EOS # 0.2 10^3/uL (0.0-0.5); EOS % 2.4 % (0.0-3.0); HEMATOCRIT 40.5 % (42.0-52.0); HEMOGLOBIN 13.8 g/dl (13.5-17.5); LYMPH # 2.5 10^3/uL (1.5-5.0); LYMPH % 32.1 % (24.0-44.0); MEAN CORPUSCULAR HEMOGLOBIN 29.7 pg (27.0-33.0); MEAN CORPUSCULAR HGB CONC 34.1 g/dl (32.0-36.5); MEAN CORPUSCULAR VOLUME 87.3 fl (80.0-96.0); MONO # 0.6 10^3/uL (0.0-0.8); NEUTROPHILS # 4.4 10^3/uL (1.5-8.5); NEUTROPHILS % 56.2 % (36.0-66.0); PLATELET COUNT, AUTOMATED 167 10^3/uL (150-450); RED BLOOD COUNT 4.64 10^6/uL (4.30-6.10); WHITE BLOOD COUNT 7.8 10^3/uL (4.0-10.0)
[2022-03-30] MEDS: **hydrALAZINE HCL** 25 MG TAB PO SCH ×2 (05:56)
[2022-03-30 06:28] LABS: BLOOD UREA NITROGEN 22 MG/DL (7-18); CALCIUM LEVEL 8.8 MG/DL (8.8-10.2); CARBON DIOXIDE LEVEL 27 MEQ/L (21-32); CHLORIDE LEVEL 100 MEQ/L (98-107); GLOMERULAR FILTRATION RATE > 60.0 (>49); GLUCOSE, FASTING 258 MG/DL (70-100); POTASSIUM SERUM 3.9 MEQ/L (3.5-5.1); SODIUM LEVEL 133 MEQ/L (136-145)
[2022-03-30 08:00] VITALS: BP 166/91
[2022-03-30] MEDS: GABAPENTIN 300 MG CAP PO SCH (08:11)
[2022-03-30] MEDS: DULoxetine 30MG CAPSULE (CYMBALTA) PO SCH (08:11)
[2022-03-30] MEDS: SENOKOT S TAB PO SCH (08:11)
[2022-03-30] MEDS: FOLIC ACID 1MG TAB PO SCH (08:11)
[2022-03-30] MEDS: ATORVASTATIN 20 MG TAB PO SCH (08:11)
[2022-03-30 08:12] VITALS: BP 178/94
[2022-03-30] MEDS: FAMOTIDINE 20 MG TAB PO SCH (08:12)
[2022-03-30] MEDS: ASPIRIN 81MG ENTERIC TABLET PO SCH (08:12)
[2022-03-30] MEDS: CARVedilol 12.5 MG TAB PO SCH (08:12)
[2022-03-30] MEDS: APIXABAN 5 MG TAB (ELIQUIS) PO SCH (08:13)
[2022-03-30] MEDS: TAMSULOSIN 0.4 MG CAP PO SCH (08:13)
[2022-03-30] MEDS: INSULIN LISPRO (NovoLOG) PER UNIT SC SCH (08:14)
[2022-03-30] MEDS: DICLOFENAC EPOLAMINE 1.3 % PATCH TOP SCH (08:14)
[2022-03-30] MEDS ORDERED: FLUBLOK(EGG FREE)(QUAD)INFLUENZA VACC 0.5ML SYRINGE 18YRS & OLDER IM.IMMUN ONE (10:00)
[2022-03-30] MEDS ORDERED: LISI40TA4 PO (10:37)
[2022-03-30] MEDS ORDERED: HYDR25TA PO (10:37)
[2022-03-30] MEDS ORDERED: BASA100I SC (10:39)
[2022-03-30] MEDS ORDERED: PEN1MIS22 SC (10:39)
[2022-03-30] MEDS ORDERED: LEVE1INJ5 SC (11:21)
== END 2022-03-30 11:43 | disposition home or self-care (01) | DRG 69 ==
LOC: M ED 08:48 → M ED INP 12:59 → ENRESERV 14:07 → M ICU 15:00 → M PCU 03-30 02:19
PROVIDERS: ADMIT Internal Medicine Nephrology; ATTEND Internal Medicine Nephrology
DX: G45.9 Transient cerebral ischemic attack, unspecified (principal); I50.32 Chronic diastolic (congestive) heart failure; I42.1 Obstructive hypertrophic cardiomyopathy; I16.0 Hypertensive urgency; I10 Essential (primary) hypertension; E11.42 Type 2 diabetes mellitus with diabetic polyneuropathy; I25.10 Atherosclerotic heart disease of native coronary artery without angina pectoris; I25.2 Old myocardial infarction; I48.91 Unspecified atrial fibrillation; E78.5 Hyperlipidemia, unspecified; E03.9 Hypothyroidism, unspecified; F43.10 Post-traumatic stress disorder, unspecified; F32.A Depression, unspecified; F41.9 Anxiety disorder, unspecified; G43.909 Migraine, unspecified, not intractable, without status migrainosus; K21.9 Gastro-esophageal reflux disease without esophagitis; E11.65 Type 2 diabetes mellitus with hyperglycemia; F17.200 Nicotine dependence, unspecified, uncomplicated; M75.01 Adhesive capsulitis of right shoulder; M54.2 Cervicalgia; F40.240 Claustrophobia; E83.52 Hypercalcemia; R20.0 Anesthesia of skin; R55 Syncope and collapse; N40.0 Benign prostatic hyperplasia without lower urinary tract symptoms; Z95.0 Presence of cardiac pacemaker; Z95.5 Presence of coronary angioplasty implant and graft; Z95.828 Presence of other vascular implants and grafts; Z86.711 Personal history of pulmonary embolism; Z98.1 Arthrodesis status; Z79.01 Long term (current) use of anticoagulants; Z86.718 Personal history of other venous thrombosis and embolism; Z79.82 Long term (current) use of aspirin; Z79.84 Long term (current) use of oral hypoglycemic drugs; Z79.899 Other long term (current) drug therapy; Z88.8 Allergy status to other drugs, medicaments and biological substances

== ENCOUNTER 2022-06-17 13:05 | Inpatient (IN) | payer OTHER ==
[~2022-06-17] VITALS: Ht 182.9 cm; Wt 125.1 kg
[~2022-06-17 13:05] MED LIST changes: +BASA100I SC; +LEVE1INJ5 SC; +ONDA-83 PO; +OXYC7.5T3 PO; +PEN1MIS22 SC
[2022-06-17] MEDS ORDERED: ASPI81CH33 PO (13:27)
[2022-06-17] MEDS ORDERED: METF10004 (13:27)
[2022-06-17] MEDS ORDERED: GABA600T4 (13:27)
[2022-06-17] MEDS ORDERED: LISI30TA4 PO (13:27)
[2022-06-17] MEDS ORDERED: HYDR-3910 PO (13:27)
[2022-06-17 13:30] LABS: BASO # 0.1 10^3/uL (0.0-0.2); BASO % 1.4 % (0.0-1.0); EOS # 0.3 10^3/uL (0.0-0.5); EOS % 3.5 % (0.0-3.0); HEMATOCRIT 41.2 % (42.0-52.0); HEMOGLOBIN 14.3 g/dl (13.5-17.5); MEAN CORPUSCULAR HEMOGLOBIN 29.7 pg (27.0-33.0); MEAN CORPUSCULAR HGB CONC 34.7 g/dl (32.0-36.5); MEAN CORPUSCULAR VOLUME 85.7 fl (80.0-96.0); MONO # 0.6 10^3/uL (0.0-0.8); MONO % 7.9 % (2.0-8.0); NEUTROPHILS # 4.2 10^3/uL (1.5-8.5); NEUTROPHILS % 57.8 % (36.0-66.0); PLATELET COUNT, AUTOMATED 184 10^3/uL (150-450); RED BLOOD COUNT 4.81 10^6/uL (4.30-6.10); WHITE BLOOD COUNT 7.2 10^3/uL (4.0-10.0)
[2022-06-17] MEDS: MORPHINE 4 MG/ML 1ML VIAL IV PRN ×2 (13:35→15:34)
[2022-06-17 13:42] LABS: INR 1.06
[2022-06-17 13:43] LABS: PARTIAL THROMBOPLASTIN TIME 32.7 SECONDS (24.8-34.2)
[2022-06-17 13:57] LABS: CK-MB VALUE MASS < 1.0 NG/ML (<3.6); LIPASE 26 U/L (12-53)
[2022-06-17 13:59] LABS: ALBUMIN 3.6 G/DL (3.2-5.2); ALKALINE PHOSPHATASE 94 U/L (46-116); ALT/SGPT 40 U/L (7.0-40); AST/SGOT 22 U/L (<34); BILIRUBIN,DIRECT 0.2 MG/DL (<0.4); BILIRUBIN,TOTAL 0.6 MG/DL (0.3-1.2); BLOOD UREA NITROGEN 12 MG/DL (9-23); CALCIUM LEVEL 8.9 MG/DL (8.3-10.6); CARBON DIOXIDE LEVEL 29 MMOL/L (20-31); CHLORIDE LEVEL 103 MMOL/L (98-107); CPK CREATINE PHOSPHOKINASE 38 U/L (46-171); GLOMERULAR FILTRATION RATE > 60.0 (>49); GLUCOSE, FASTING 267 MG/DL (74-106); MB/CK RELATIVE INDEX 2.63 (< OR =4); POTASSIUM SERUM 4.5 MMOL/L (3.5-5.1); SODIUM LEVEL 138 MMOL/L (136-145); TOTAL PROTEIN 6.2 G/DL (5.7-8.2)
[2022-06-17] MEDS ORDERED: ISOVUE-370 76% 100ML VIAL As Ordered ONE (14:00)
[2022-06-17 14:02] LABS: FREE T4 0.67 NG/DL (0.89-1.76); THYROID STIMULATING HORMONE 0.464 uIU/ML (0.55-4.78)
[2022-06-17] MEDS ORDERED: hydrALAZINE 20MG/ML 1ML VIAL IV ONE ×2 (15:10→23:00)
[2022-06-17] MEDS ORDERED: hydrALAZINE 20MG/ML 1ML VIAL IV STA (15:58)
[2022-06-17 16:08] LABS: CK-MB VALUE MASS < 1.0 NG/ML (<3.6); CPK CREATINE PHOSPHOKINASE 44 U/L (46-171); MB/CK RELATIVE INDEX 2.27 (< OR =4)
[2022-06-17] MEDS ORDERED: ONDANSETRON 4MG 2ML VIAL IV ONE (17:05)
[2022-06-17] MEDS ORDERED: HOME MED LIST COMPLETE! XX SCH (17:55)
[2022-06-17] MEDS ORDERED: DEXTROSE 50% 50ML SYRINGE IV PRN (18:30)
[2022-06-17] MEDS ORDERED: GLUCOSE 4GM CHEW TABLET PO PRN (18:30)
[2022-06-17] MEDS ORDERED: GLUCAGON INJ 1MG VIAL SC PRN (18:30)
[2022-06-17] MEDS: ACETAMINOPHEN 500 MG TAB PO PRN ×2 (18:31→22:50)
[2022-06-17] MEDS ORDERED: FIORICET TAB PO ONE (19:40)
[2022-06-17] MEDS: hydrALAZINE 20MG/ML 1ML VIAL IV SCH (19:40)
[2022-06-17] MEDS: ONDANSETRON 4MG 2ML VIAL IV PRN ×2 (19:50→22:49)
[2022-06-17] MEDS: APIXABAN 5 MG TAB (ELIQUIS) PO SCH (20:25)
[2022-06-17] MEDS: GABAPENTIN 300 MG CAP PO SCH (20:26)
[2022-06-17] MEDS: INSULIN LISPRO (NovoLOG) PER UNIT SC SCH (20:27)
[2022-06-17] MEDS ORDERED: **hydrALAZINE HCL** 25 MG TAB PO SCH (21:00)
[2022-06-17] MEDS ORDERED: metFORMIN (GLUCOPHAGE) 1000MG TABLET PO SCH (21:00)
[2022-06-17 21:32] LABS: CK-MB VALUE MASS < 1.0 NG/ML (<3.6); CPK CREATINE PHOSPHOKINASE 42 U/L (46-171); MB/CK RELATIVE INDEX 2.38 (< OR =4)
[2022-06-17 22:30] VITALS: BP 204/110
[2022-06-17 22:31] LABS: RSV AMPLIFICATION NEGATIVE (NEGATIVE)
[2022-06-17] MEDS ORDERED: MORPHINE 2 MG/ML 1ML VIAL IV PRN (23:00)
[2022-06-17 23:46] VITALS: BP 190/100
[2022-06-18] VITALS (8 sets, daily range): BP systolic 160–192; BP diastolic 80–98
[2022-06-18] MEDS ORDERED: hydrALAZINE 20MG/ML 1ML VIAL IV STA (00:01)
[2022-06-18] MEDS ORDERED: PROMETHAZINE 25MG/ML 1ML VIAL IM ONE (01:00)
[2022-06-18] MEDS: hydrALAZINE 20MG/ML 1ML VIAL IV SCH ×2 (01:14→06:41)
[2022-06-18] MEDS ORDERED: LABETALOL 100MG/20ML VIAL IV STA (01:56)
[2022-06-18] MEDS ORDERED: PROMETHAZINE 25MG/ML 1ML VIAL IV ONE (02:00)
[2022-06-18] MEDS: ACETAMINOPHEN 500 MG TAB PO PRN (02:51)
[2022-06-18] MEDS ORDERED: KETOROLAC 30 MG/ML 1ML VIAL IV ONE ×2 (05:00→08:35)
[2022-06-18 05:05] LABS: HEMATOCRIT 46.6 % (42.0-52.0); MEAN CORPUSCULAR HEMOGLOBIN 29.4 pg (27.0-33.0); MEAN CORPUSCULAR HGB CONC 35.2 g/dl (32.0-36.5); MEAN CORPUSCULAR VOLUME 83.7 fl (80.0-96.0); PLATELET COUNT, AUTOMATED 234 10^3/uL (150-450); RED BLOOD COUNT 5.57 10^6/uL (4.30-6.10)
[2022-06-18 05:10] LABS: HEMOGLOBIN 16.4 g/dl (13.5-17.5)
[2022-06-18 05:17] LABS: BLOOD UREA NITROGEN 11 MG/DL (9-23); CALCIUM LEVEL 9.7 MG/DL (8.3-10.6); CARBON DIOXIDE LEVEL 24 MMOL/L (20-31); CHLORIDE LEVEL 100 MMOL/L (98-107); CREATININE FOR GFR 0.59 MG/DL (0.70-1.30); GLOMERULAR FILTRATION RATE > 60.0 (>49); GLUCOSE, FASTING 248 MG/DL (74-106); SODIUM LEVEL 135 MMOL/L (136-145)
[2022-06-18 05:19] LABS: FREE THYROXINE INDEX 1.9 % (1.4-3.8); T UPTAKE 34.7 % (22.5-37.0); THYROXINE (T4) 5.4 UG/DL (4.5-10.9)
[2022-06-18] MEDS: INSULIN LISPRO (NovoLOG) PER UNIT SC SCH ×4 (08:18→21:00)
[2022-06-18] MEDS: TAMSULOSIN 0.4 MG CAP PO SCH (08:19)
[2022-06-18] MEDS: FOLIC ACID 1MG TAB PO SCH (08:19)
[2022-06-18] MEDS: MULTIVITAMINS/MINERALS THERAP 1 TAB PO SCH (08:19)
[2022-06-18] MEDS: ASPIRIN 81MG CHEW TABLET PO SCH (08:19)
[2022-06-18] MEDS: GABAPENTIN 300 MG CAP PO SCH ×4 (08:19→21:25)
[2022-06-18] MEDS: ATORVASTATIN 20 MG TAB PO SCH (08:19)
[2022-06-18] MEDS: APIXABAN 5 MG TAB (ELIQUIS) PO SCH ×2 (08:20→21:27)
[2022-06-18] MEDS ORDERED: diphenhydrAMINE 50MG/ML VIAL IV ONE (08:35)
[2022-06-18] MEDS ORDERED: METOCLOPRAMIDE INJ 10MG/2ML VIAL IV ONE (08:35)
[2022-06-18] MEDS ORDERED: NS 1,000 ML IV ONE (08:35)
[2022-06-18] MEDS ORDERED: **hydrALAZINE** 50 MG TAB PO ONE (10:00)
[2022-06-18] MEDS ORDERED: LABETALOL 100MG TAB PO SCH ×2 (10:45→21:00)
[2022-06-18 12:47] LABS: APPEARANCE, URINE MANUAL CLEAR (CLEAR); COLOR, URINE MANUAL YELLOW (YELLOW)
[2022-06-18 12:48] LABS: BILIRUBIN, URINE MANUAL NEGATIVE (NEGATIVE); BLOOD URINE MANUAL NEGATIVE (NEGATIVE); GLUCOSE, URINE (UA) MANUAL 4+(1000 MG/DL) mg/dL (NEGATIVE); KETONE, URINE MANUAL 1+ mg/dL (NEGATIVE); LEUKOCYTE ESTERASE, URINE MAN NEGATIVE (NEGATIVE); NITRITE, URINE MANUAL NEGATIVE (NEGATIVE); PROTEIN, URINE MANUAL NEGATIVE (NEGATIVE); UROBILINOGEN, URINE MANUAL NORMAL (NORMAL)
[2022-06-18] MEDS ORDERED: **hydrALAZINE** 50 MG TAB PO SCH (14:00)
[2022-06-18] MEDS: KETOROLAC 30 MG/ML 1ML VIAL IV PRN ×2 (16:33→22:47)
[2022-06-18] MEDS ORDERED: LABETALOL 200 MG TAB PO SCH (21:00)
[2022-06-18] MEDS: LEVEMIR (INSULIN DETEMIR) 1 UNITS/0.01ML SC SCH (21:27)
[2022-06-19 03:50] VITALS: BP 170/88
[2022-06-19] MEDS: KETOROLAC 30 MG/ML 1ML VIAL IV PRN (04:49)
[2022-06-19 05:04] LABS: BASO # 0.1 10^3/uL (0.0-0.2); BASO % 0.8 % (0.0-1.0); EOS # 0.2 10^3/uL (0.0-0.5); EOS % 2.3 % (0.0-3.0); HEMATOCRIT 40.4 % (42.0-52.0); LYMPH # 2.1 10^3/uL (1.5-5.0); LYMPH % 25.4 % (24.0-44.0); MEAN CORPUSCULAR HEMOGLOBIN 29.5 pg (27.0-33.0); MEAN CORPUSCULAR HGB CONC 35.4 g/dl (32.0-36.5); MEAN CORPUSCULAR VOLUME 83.5 fl (80.0-96.0); MONO # 0.8 10^3/uL (0.0-0.8); MONO % 9.3 % (2.0-8.0); NEUTROPHILS # 5.2 10^3/uL (1.5-8.5); NEUTROPHILS % 61.5 % (36.0-66.0); PLATELET COUNT, AUTOMATED 180 10^3/uL (150-450); RED BLOOD COUNT 4.84 10^6/uL (4.30-6.10); WHITE BLOOD COUNT 8.4 10^3/uL (4.0-10.0)
[2022-06-19 05:07] LABS: HEMOGLOBIN 14.3 g/dl (13.5-17.5)
[2022-06-19 05:17] LABS: MAGNESIUM LEVEL 1.6 MG/DL (1.8-2.4)
[2022-06-19 05:20] LABS: BLOOD UREA NITROGEN 18 MG/DL (9-23); CALCIUM LEVEL 9.1 MG/DL (8.3-10.6); CARBON DIOXIDE LEVEL 24 MMOL/L (20-31); CHLORIDE LEVEL 98 MMOL/L (98-107); CREATININE FOR GFR 0.83 MG/DL (0.70-1.30); GLOMERULAR FILTRATION RATE > 60.0 (>49); GLUCOSE, FASTING 213 MG/DL (74-106); SODIUM LEVEL 131 MMOL/L (136-145)
[2022-06-19] MEDS: ACETAMINOPHEN 500 MG TAB PO PRN ×3 (07:38→21:52)
[2022-06-19] MEDS: **hydrALAZINE HCL** 25 MG TAB PO SCH ×3 (07:41→21:53)
[2022-06-19 08:07] VITALS: BP 160/78
[2022-06-19] MEDS: ONDANSETRON 4MG 2ML VIAL IV PRN ×2 (08:26→14:28)
[2022-06-19] MEDS: INSULIN LISPRO (NovoLOG) PER UNIT SC SCH ×4 (08:26→21:54)
[2022-06-19] MEDS: MAG SULF 1GM/100ML (MAG RUN) 1 GM in IV 1 EA IV SCH ×2 (08:28→09:27)
[2022-06-19] MEDS ORDERED: diphenhydrAMINE 50MG/ML VIAL IV ONE ×2 (08:45→16:25)
[2022-06-19] MEDS ORDERED: METOCLOPRAMIDE INJ 10MG/2ML VIAL IV ONE ×2 (08:45→16:25)
[2022-06-19] MEDS ORDERED: CARVedilol 12.5 MG TAB PO SCH ×2 (09:00→21:00)
[2022-06-19] MEDS: MULTIVITAMINS/MINERALS THERAP 1 TAB PO SCH (09:24)
[2022-06-19] MEDS: ATORVASTATIN 20 MG TAB PO SCH (09:24)
[2022-06-19] MEDS: ASPIRIN 81MG CHEW TABLET PO SCH (09:24)
[2022-06-19] MEDS: GABAPENTIN 300 MG CAP PO SCH ×4 (09:24→21:51)
[2022-06-19] MEDS: APIXABAN 5 MG TAB (ELIQUIS) PO SCH ×2 (09:24→21:52)
[2022-06-19] MEDS: FOLIC ACID 1MG TAB PO SCH (09:25)
[2022-06-19] MEDS: TAMSULOSIN 0.4 MG CAP PO SCH (09:39)
[2022-06-19 12:00] VITALS: BP 142/78
[2022-06-19] MEDS: FIORICET TAB PO PRN ×2 (12:29→18:22)
[2022-06-19 16:00] VITALS: BP 156/82
[2022-06-19] MEDS ORDERED: SODIUM CHLORIDE NASAL 0.65% SPRAY BTL (OCEAN) PRN (16:30)
[2022-06-19 20:07] VITALS: BP 153/88
[2022-06-19] MEDS: LEVEMIR (INSULIN DETEMIR) 1 UNITS/0.01ML SC SCH (21:54)
[2022-06-20] VITALS (12 sets, daily range): BP systolic 130–190; BP diastolic 62–110
[2022-06-20] MEDS: FIORICET TAB PO PRN ×3 (00:44→21:36)
[2022-06-20] MEDS: ONDANSETRON 4MG 2ML VIAL IV PRN ×2 (00:48→14:06)
[2022-06-20] MEDS: ACETAMINOPHEN 500 MG TAB PO PRN ×2 (02:42→08:33)
[2022-06-20 05:07] LABS: BASO # 0.1 10^3/uL (0.0-0.2); BASO % 0.9 % (0.0-1.0); EOS # 0.2 10^3/uL (0.0-0.5); EOS % 2.8 % (0.0-3.0); HEMATOCRIT 39.8 % (42.0-52.0); HEMOGLOBIN 14.4 g/dl (13.5-17.5); LYMPH # 2.1 10^3/uL (1.5-5.0); LYMPH % 26.6 % (24.0-44.0); MEAN CORPUSCULAR HEMOGLOBIN 29.6 pg (27.0-33.0); MEAN CORPUSCULAR HGB CONC 36.2 g/dl (32.0-36.5); MEAN CORPUSCULAR VOLUME 81.9 fl (80.0-96.0); MONO # 0.8 10^3/uL (0.0-0.8); MONO % 9.6 % (2.0-8.0); NEUTROPHILS # 4.7 10^3/uL (1.5-8.5); PLATELET COUNT, AUTOMATED 198 10^3/uL (150-450); RED BLOOD COUNT 4.86 10^6/uL (4.30-6.10); WHITE BLOOD COUNT 7.9 10^3/uL (4.0-10.0)
[2022-06-20 05:31] LABS: MAGNESIUM LEVEL 1.8 MG/DL (1.8-2.4)
[2022-06-20 05:33] LABS: BLOOD UREA NITROGEN 13 MG/DL (9-23); CALCIUM LEVEL 8.9 MG/DL (8.3-10.6); CARBON DIOXIDE LEVEL 26 MMOL/L (20-31); CHLORIDE LEVEL 101 MMOL/L (98-107); CREATININE FOR GFR 0.89 MG/DL (0.70-1.30); GLOMERULAR FILTRATION RATE > 60.0 (>49); GLUCOSE, FASTING 184 MG/DL (74-106); POTASSIUM SERUM 4.3 MMOL/L (3.5-5.1); SODIUM LEVEL 134 MMOL/L (136-145)
[2022-06-20] MEDS: **hydrALAZINE HCL** 25 MG TAB PO SCH ×3 (05:34→20:27)
[2022-06-20] MEDS: INSULIN LISPRO (NovoLOG) PER UNIT SC SCH ×4 (07:30→20:28)
[2022-06-20] MEDS: ATORVASTATIN 20 MG TAB PO SCH (08:32)
[2022-06-20] MEDS: GABAPENTIN 300 MG CAP PO SCH ×4 (08:32→20:26)
[2022-06-20] MEDS: ASPIRIN 81MG CHEW TABLET PO SCH (08:33)
[2022-06-20] MEDS: TAMSULOSIN 0.4 MG CAP PO SCH (08:33)
[2022-06-20] MEDS: MULTIVITAMINS/MINERALS THERAP 1 TAB PO SCH (08:33)
[2022-06-20] MEDS: APIXABAN 5 MG TAB (ELIQUIS) PO SCH ×2 (08:33→20:26)
[2022-06-20] MEDS: FOLIC ACID 1MG TAB PO SCH (08:34)
[2022-06-20] MEDS ORDERED: MORPHINE 2 MG/ML 1ML VIAL IV ONE ×2 (08:45→17:25)
[2022-06-20] MEDS ORDERED: VERAPAMIL 40 MG TAB PO SCH (09:00)
[2022-06-20] MEDS ORDERED: METOCLOPRAMIDE INJ 10MG/2ML VIAL IV ONE (09:00)
[2022-06-20] MEDS: VERAPAMIL 40 MG TAB PO SCH ×2 (11:30→20:27)
[2022-06-20 12:21] LABS: ERYTHROCYTE SEDIMENTATION RATE 13 mm/hr (0-20)
[2022-06-20] MEDS ORDERED: MORPHINE 2 MG/ML 1ML VIAL IV PRN ×2 (12:35→16:25)
[2022-06-20] MEDS ORDERED: ISOVUE-370 76% 100ML VIAL As Ordered ONE (17:27)
[2022-06-20 17:55] LABS: BASO # 0.1 10^3/uL (0.0-0.2); BASO % 1.2 % (0.0-1.0); EOS # 0.3 10^3/uL (0.0-0.5); EOS % 3.4 % (0.0-3.0); HEMATOCRIT 44.3 % (42.0-52.0); HEMOGLOBIN 15.7 g/dl (13.5-17.5); LYMPH % 27.8 % (24.0-44.0); MEAN CORPUSCULAR HEMOGLOBIN 29.7 pg (27.0-33.0); MEAN CORPUSCULAR HGB CONC 35.4 g/dl (32.0-36.5); MEAN CORPUSCULAR VOLUME 83.9 fl (80.0-96.0); MONO # 0.6 10^3/uL (0.0-0.8); MONO % 8.8 % (2.0-8.0); NEUTROPHILS # 4.2 10^3/uL (1.5-8.5); NEUTROPHILS % 57.3 % (36.0-66.0); PLATELET COUNT, AUTOMATED 202 10^3/uL (150-450); RED BLOOD COUNT 5.28 10^6/uL (4.30-6.10); WHITE BLOOD COUNT 7.3 10^3/uL (4.0-10.0)
[2022-06-20] MEDS ORDERED: LABETALOL 100MG/20ML VIAL IV ONE ×2 (17:55→22:55)
[2022-06-20 18:07] LABS: MAGNESIUM LEVEL 1.8 MG/DL (1.8-2.4)
[2022-06-20 18:08] LABS: CK-MB VALUE MASS < 1.0 NG/ML (<3.6)
[2022-06-20 18:09] LABS: ALKALINE PHOSPHATASE 89 U/L (46-116); ALT/SGPT 56 U/L (7.0-40); AST/SGOT 44 U/L (<34); BILIRUBIN,TOTAL 1.3 MG/DL (0.3-1.2); BLOOD UREA NITROGEN 10 MG/DL (9-23); CARBON DIOXIDE LEVEL 27 MMOL/L (20-31); CHLORIDE LEVEL 103 MMOL/L (98-107); CREATININE FOR GFR 0.81 MG/DL (0.70-1.30); GLOMERULAR FILTRATION RATE > 60.0 (>49); GLUCOSE, FASTING 186 MG/DL (74-106); POTASSIUM SERUM 4.1 MMOL/L (3.5-5.1); SODIUM LEVEL 138 MMOL/L (136-145); TOTAL PROTEIN 6.9 G/DL (5.7-8.2)
[2022-06-20 18:12] LABS: CPK CREATINE PHOSPHOKINASE 150 U/L (46-171); MB/CK RELATIVE INDEX 0.66 (< OR =4)
[2022-06-20] MEDS: MAG SULF 1GM/100ML (MAG RUN) 1 GM in IV 1 EA IV SCH ×2 (18:39→20:14)
[2022-06-20] MEDS ORDERED: hydrALAZINE 20MG/ML 1ML VIAL IV ONE (19:00)
[2022-06-20] MEDS: MORPHINE 2 MG/ML 1ML VIAL IV PRN ×2 (20:15→23:22)
[2022-06-20] MEDS: LEVEMIR (INSULIN DETEMIR) 1 UNITS/0.01ML SC SCH (20:28)
[2022-06-20] MEDS ORDERED: VALPROATE SOD INJ 1,000 MG in D5W 50 ML IV ONE (21:00)
[2022-06-21] VITALS (7 sets, daily range): BP systolic 142–170; BP diastolic 74–94
[2022-06-21] MEDS: MORPHINE 2 MG/ML 1ML VIAL IV PRN ×5 (02:40→19:23)
[2022-06-21] MEDS: FIORICET TAB PO PRN ×2 (04:24→11:46)
[2022-06-21] MEDS: **hydrALAZINE HCL** 25 MG TAB PO SCH ×3 (05:02→21:15)
[2022-06-21 05:21] LABS: BASO # 0.1 10^3/uL (0.0-0.2); EOS # 0.3 10^3/uL (0.0-0.5); EOS % 3.9 % (0.0-3.0); HEMOGLOBIN 14.4 g/dl (13.5-17.5); LYMPH # 2.2 10^3/uL (1.5-5.0); LYMPH % 30.5 % (24.0-44.0); MEAN CORPUSCULAR HEMOGLOBIN 29.3 pg (27.0-33.0); MEAN CORPUSCULAR HGB CONC 35.1 g/dl (32.0-36.5); MEAN CORPUSCULAR VOLUME 83.3 fl (80.0-96.0); MONO # 0.7 10^3/uL (0.0-0.8); MONO % 9.2 % (2.0-8.0); NEUTROPHILS # 3.9 10^3/uL (1.5-8.5); NEUTROPHILS % 54.1 % (36.0-66.0); PLATELET COUNT, AUTOMATED 189 10^3/uL (150-450); RED BLOOD COUNT 4.92 10^6/uL (4.30-6.10); WHITE BLOOD COUNT 7.2 10^3/uL (4.0-10.0)
[2022-06-21 05:44] LABS: MAGNESIUM LEVEL 1.8 MG/DL (1.8-2.4)
[2022-06-21 05:46] LABS: BLOOD UREA NITROGEN 9 MG/DL (9-23); CALCIUM LEVEL 8.8 MG/DL (8.3-10.6); CARBON DIOXIDE LEVEL 25 MMOL/L (20-31); CHLORIDE LEVEL 100 MMOL/L (98-107); CREATININE FOR GFR 0.77 MG/DL (0.70-1.30); GLOMERULAR FILTRATION RATE > 60.0 (>49); GLUCOSE, FASTING 228 MG/DL (74-106); POTASSIUM SERUM 4.2 MMOL/L (3.5-5.1); SODIUM LEVEL 134 MMOL/L (136-145)
[2022-06-21] MEDS ORDERED: predniSONE 50 MG TAB PO SCH (09:00)
[2022-06-21] MEDS: INSULIN LISPRO (NovoLOG) PER UNIT SC SCH ×4 (09:04→21:14)
[2022-06-21] MEDS: MULTIVITAMINS/MINERALS THERAP 1 TAB PO SCH (09:04)
[2022-06-21] MEDS: ATORVASTATIN 20 MG TAB PO SCH (09:05)
[2022-06-21] MEDS: TAMSULOSIN 0.4 MG CAP PO SCH (09:05)
[2022-06-21] MEDS: VERAPAMIL 40 MG TAB PO SCH ×2 (09:05→21:10)
[2022-06-21] MEDS: ASPIRIN 81MG CHEW TABLET PO SCH (09:05)
[2022-06-21] MEDS: FOLIC ACID 1MG TAB PO SCH (09:05)
[2022-06-21] MEDS: GABAPENTIN 300 MG CAP PO SCH ×4 (09:05→21:12)
[2022-06-21] MEDS: DIVALPROEX 250MG TAB PO SCH ×2 (09:06→21:10)
[2022-06-21] MEDS: APIXABAN 5 MG TAB (ELIQUIS) PO SCH ×2 (09:06→21:15)
[2022-06-21] MEDS: ONDANSETRON 4MG 2ML VIAL IV PRN (11:47)
[2022-06-21 14:20] LABS: BILIRUBIN,DIRECT 0.3 MG/DL (<0.4); BILIRUBIN,TOTAL 1.1 MG/DL (0.3-1.2)
[2022-06-21] MEDS ORDERED: ISOVUE-370 76% 100ML VIAL As Ordered ONE (18:06)
[2022-06-21] MEDS ORDERED: DEPA250T32 PO (19:12)
[2022-06-21] MEDS ORDERED: VERA40TA PO (19:12)
[2022-06-21] MEDS ORDERED: INSUDET SC (19:12)
[2022-06-21] MEDS ORDERED: PRED50TA PO (19:12)
[2022-06-21] MEDS ORDERED: HYDR25TA PO (19:12)
[2022-06-21] MEDS ORDERED: LEVEMIR (INSULIN DETEMIR) 1 UNITS/0.01ML SC SCH (21:00)
== END 2022-06-21 22:30 | disposition short-term general hospital (02) | DRG 643 ==
LOC: M ED 13:05 → EDBD 13:05 → M ED INP 17:19 → ENRESERV 22:04 → M PCU 22:30
PROVIDERS: ADMIT Internal Medicine; ATTEND Internal Medicine
DX: D49.7 Neoplasm of unspecified behavior of endocrine glands and other parts of nervous system (principal); G08 Intracranial and intraspinal phlebitis and thrombophlebitis; I50.32 Chronic diastolic (congestive) heart failure; I16.1 Hypertensive emergency; G45.9 Transient cerebral ischemic attack, unspecified; I11.0 Hypertensive heart disease with heart failure; E11.42 Type 2 diabetes mellitus with diabetic polyneuropathy; I25.10 Atherosclerotic heart disease of native coronary artery without angina pectoris; I25.2 Old myocardial infarction; R41.89 Other symptoms and signs involving cognitive functions and awareness; Z86.711 Personal history of pulmonary embolism; Z86.718 Personal history of other venous thrombosis and embolism; I48.0 Paroxysmal atrial fibrillation; E78.5 Hyperlipidemia, unspecified; E03.9 Hypothyroidism, unspecified; F43.10 Post-traumatic stress disorder, unspecified; F32.A Depression, unspecified; F41.9 Anxiety disorder, unspecified; G43.909 Migraine, unspecified, not intractable, without status migrainosus; F40.240 Claustrophobia; K21.9 Gastro-esophageal reflux disease without esophagitis; R51.9 Headache, unspecified; F17.200 Nicotine dependence, unspecified, uncomplicated; H53.2 Diplopia; I27.20 Pulmonary hypertension, unspecified; H49.40 Progressive external ophthalmoplegia, unspecified eye; R55 Syncope and collapse; R07.89 Other chest pain; M75.01 Adhesive capsulitis of right shoulder; Z79.01 Long term (current) use of anticoagulants; Z79.82 Long term (current) use of aspirin; Z79.899 Other long term (current) drug therapy; Z88.8 Allergy status to other drugs, medicaments and biological substances; Z95.828 Presence of other vascular implants and grafts; Z95.5 Presence of coronary angioplasty implant and graft; Z98.1 Arthrodesis status

== ENCOUNTER 2022-08-02 12:05 | Emergency (ER) | payer OTHER ==
[~2022-08-02] VITALS: Ht 182.9 cm; Wt 114.5 kg
[~2022-08-02 12:05] MED LIST changes: +DEPA250T32 PO; +GABA600T4; +HYDR-3910 PO; +INSU100I6 SC; +INSUDET SC; -LEVE1INJ5 SC; +LISI30TA4 PO; +METF10004; +PRED50TA PO; +VERA40TA PO
[2022-08-02] MEDS ORDERED: JANU100T (12:19)
[2022-08-02] MEDS ORDERED: VERA80TA3 (12:19)
[2022-08-02] MEDS ORDERED: NS 500 ML IV ONE (12:30)
[2022-08-02 13:40] LABS: BASO # 0.1 10^3/uL (0.0-0.2); BASO % 1.4 % (0.0-1.0); EOS # 0.2 10^3/uL (0.0-0.5); EOS % 3.3 % (0.0-3.0); HEMATOCRIT 34.1 % (42.0-52.0); HEMOGLOBIN 11.9 g/dl (13.5-17.5); LYMPH # 2.3 10^3/uL (1.5-5.0); LYMPH % 47.6 % (24.0-44.0); MEAN CORPUSCULAR HEMOGLOBIN 29.8 pg (27.0-33.0); MEAN CORPUSCULAR HGB CONC 34.9 g/dl (32.0-36.5); MEAN CORPUSCULAR VOLUME 85.5 fl (80.0-96.0); MONO # 0.5 10^3/uL (0.0-0.8); MONO % 9.7 % (2.0-8.0); NEUTROPHILS # 1.8 10^3/uL (1.5-8.5); NEUTROPHILS % 37.8 % (36.0-66.0); PLATELET COUNT, AUTOMATED 188 10^3/uL (150-450); RED BLOOD COUNT 3.99 10^6/uL (4.30-6.10); WHITE BLOOD COUNT 4.9 10^3/uL (4.0-10.0)
[2022-08-02 14:05] LABS: BLOOD UREA NITROGEN 13 MG/DL (9-23); CALCIUM LEVEL 9.1 MG/DL (8.3-10.6); CARBON DIOXIDE LEVEL 24 MMOL/L (20-31); CHLORIDE LEVEL 107 MMOL/L (98-107); CREATININE FOR GFR 0.89 MG/DL (0.70-1.30); GLOMERULAR FILTRATION RATE > 60.0 (>49); GLUCOSE, FASTING 92 MG/DL (74-106); MAGNESIUM LEVEL 1.6 MG/DL (1.8-2.4); POTASSIUM SERUM 4.3 MMOL/L (3.5-5.1); SODIUM LEVEL 140 MMOL/L (136-145)
[2022-08-02 14:08] LABS: THYROID STIMULATING HORMONE 2.571 uIU/ML (0.55-4.78)
[2022-08-02] MEDS ORDERED: MAG SULF 1GM/100ML (MAG RUN) 1 GM in IV 1 EA IV ONE (14:15)
[2022-08-02 15:51] VITALS: BP 164/90
== END 2022-08-02 15:56 | disposition home or self-care (01) ==
LOC: M ED 12:05 → EDBD 12:05 → M ED 15:56
DX: R42 Dizziness and giddiness (principal); I48.91 Unspecified atrial fibrillation; I11.9 Hypertensive heart disease without heart failure; E78.5 Hyperlipidemia, unspecified; G43.909 Migraine, unspecified, not intractable, without status migrainosus; Z95.2 Presence of prosthetic heart valve; Z95.0 Presence of cardiac pacemaker; F17.200 Nicotine dependence, unspecified, uncomplicated; E03.9 Hypothyroidism, unspecified; G31.84 Mild cognitive impairment of uncertain or unknown etiology; Z88.8 Allergy status to other drugs, medicaments and biological substances; Z79.4 Long term (current) use of insulin; Z79.899 Other long term (current) drug therapy; Z79.82 Long term (current) use of aspirin

== ENCOUNTER 2022-08-26 11:28 | Inpatient (IN) | payer OTHER ==
[~2022-08-26] VITALS: Ht 182.9 cm; Wt 117.0 kg
[~2022-08-26 11:28] MED LIST changes: +JANU100T PO; +VERA80TA3 PO
[2022-08-26] MEDS ORDERED: ISOVUE-370 76% 100ML VIAL As Ordered ONE (12:03)
[2022-08-26 12:32] LABS: BASO # 0.1 10^3/uL (0.0-0.2); BASO % 1.1 % (0.0-1.0); EOS # 0.2 10^3/uL (0.0-0.5); EOS % 2.8 % (0.0-3.0); HEMATOCRIT 36.4 % (42.0-52.0); HEMOGLOBIN 12.4 g/dl (13.5-17.5); LYMPH # 1.9 10^3/uL (1.5-5.0); LYMPH % 35.1 % (24.0-44.0); MEAN CORPUSCULAR HEMOGLOBIN 29.5 pg (27.0-33.0); MEAN CORPUSCULAR HGB CONC 34.1 g/dl (32.0-36.5); MEAN CORPUSCULAR VOLUME 86.5 fl (80.0-96.0); MONO # 0.4 10^3/uL (0.0-0.8); MONO % 8.1 % (2.0-8.0); NEUTROPHILS # 2.9 10^3/uL (1.5-8.5); NEUTROPHILS % 52.5 % (36.0-66.0); PLATELET COUNT, AUTOMATED 218 10^3/uL (150-450); RED BLOOD COUNT 4.21 10^6/uL (4.30-6.10); WHITE BLOOD COUNT 5.4 10^3/uL (4.0-10.0)
[2022-08-26] MEDS ORDERED: hydrALAZINE 20MG/ML 1ML VIAL IV ONE (12:35)
[2022-08-26 12:40] LABS: INR 1.02; PROTHROMBIN TIME 13.6 SECONDS (12.5-14.5)
[2022-08-26 12:41] LABS: PARTIAL THROMBOPLASTIN TIME 35.9 SECONDS (24.8-34.2)
[2022-08-26 12:43] LABS: ETHYL ALCOHOL (ETHANOL) < 0.003 % (0.000-0.010)
[2022-08-26 12:44] LABS: ACETAMINOPHEN LEVEL < 2.0 UG/ML (10.0-20.0); CPK CREATINE PHOSPHOKINASE 97 U/L (46-171); SALICYLATE LEVEL < 3.0 MG/DL (<30)
[2022-08-26 12:44] LABS: RSV AMPLIFICATION NEGATIVE (NEGATIVE)
[2022-08-26 13:06] LABS: AMPHETAMINES LEVEL URINE NEGATIVE (NEGATIVE); BARBITURATES URINE NEGATIVE (NEGATIVE); BENZODIAZEPINES URINE NEGATIVE (NEGATIVE); CANNABINOIDS URINE NEGATIVE (NEGATIVE); COCAINE METABOLITE URINE NEGATIVE (NEGATIVE); METHADONE URINE NEGATIVE (NEGATIVE); OPIATES URINE NEGATIVE (NEGATIVE); PHENCYCLIDINE URINE NEGATIVE (NEGATIVE)
[2022-08-26 13:06] LABS: ALBUMIN 3.9 G/DL (3.2-5.2); ALKALINE PHOSPHATASE 85 U/L (46-116); ALT/SGPT 40 U/L (7.0-40); AST/SGOT 39 U/L (<34); BILIRUBIN,DIRECT 0.4 MG/DL (<0.4); BILIRUBIN,TOTAL 0.9 MG/DL (0.3-1.2); BLOOD UREA NITROGEN 12 MG/DL (9-23); CALCIUM LEVEL 9.3 MG/DL (8.3-10.6); CARBON DIOXIDE LEVEL 28 MMOL/L (20-31); CHLORIDE LEVEL 104 MMOL/L (98-107); CREATININE FOR GFR 0.95 MG/DL (0.70-1.30); GLOMERULAR FILTRATION RATE > 60.0 (>49); GLUCOSE, FASTING 103 MG/DL (74-106); MB/CK RELATIVE INDEX 1.03 (< OR =4); POTASSIUM SERUM 4.2 MMOL/L (3.5-5.1); SODIUM LEVEL 139 MMOL/L (136-145)
[2022-08-26] MEDS ORDERED: HYDR100T PO (13:23)
[2022-08-26] MEDS ORDERED: INSU100I6 SC (13:23)
[2022-08-26 13:49] LABS: CPK CREATINE PHOSPHOKINASE 86 U/L (46-171)
[2022-08-26] MEDS ORDERED: VERA120T9 PO (13:50)
[2022-08-26] MEDS ORDERED: FAMO20TA PO (13:59)
[2022-08-26] MEDS ORDERED: LACT1TAB5 PO (13:59)
[2022-08-26] MEDS ORDERED: PREG50CA PO (13:59)
[2022-08-26] MEDS ORDERED: JARD1TAB3 PO (13:59)
[2022-08-26] MEDS ORDERED: INSUDET SC (13:59)
[2022-08-26] MEDS ORDERED: B-12100021 PO (13:59)
[2022-08-26] MEDS ORDERED: BACL10TA2 PO (13:59)
[2022-08-26] MEDS ORDERED: ARIP1TAB6 PO (13:59)
[2022-08-26] MEDS ORDERED: LISI40TA4 PO (13:59)
[2022-08-26] MEDS ORDERED: TRAM50TA2 PO ×2 (13:59)
[2022-08-26] MEDS ORDERED: HOME MED LIST COMPLETE! XX SCH (14:05)
[2022-08-26 14:12] LABS: CK-MB VALUE MASS < 1.0 NG/ML (<3.6); MB/CK RELATIVE INDEX 1.16 (< OR =4)
[2022-08-26] MEDS ORDERED: ONDANSETRON 4MG 2ML VIAL IV ONE (14:15)
[2022-08-26 15:05] LABS: THYROID STIMULATING HORMONE 2.097 uIU/ML (0.55-4.78)
[2022-08-26] MEDS ORDERED: LABETALOL 100MG/20ML VIAL IV STA ×2 (15:42→21:18)
[2022-08-26] MEDS ORDERED: NITROGLYCERIN 0.4MG SUBL TABLET SL PRN (15:45)
[2022-08-26] MEDS ORDERED: DEXTROSE 50% 50ML SYRINGE IV PRN (15:50)
[2022-08-26] MEDS ORDERED: GLUCOSE 4GM CHEW TABLET PO PRN (15:50)
[2022-08-26] MEDS ORDERED: GLUCAGON INJ 1MG VIAL SC PRN (15:50)
[2022-08-26] MEDS ORDERED: PILL CUTTER 1 EACH XX PRN (15:55)
[2022-08-26] MEDS ORDERED: INSU100I16 SC (16:10)
[2022-08-26] MEDS: INSULIN LISPRO (NovoLOG) PER UNIT SC SCH (17:30)
[2022-08-26] MEDS: NS 1,000 ML IV SCH (17:39)
[2022-08-26 18:35] LABS: TOTAL PROTEIN 7.2 G/DL (5.7-8.2)
[2022-08-26] MEDS: hydrALAZINE 20MG/ML 1ML VIAL IV SCH (19:22)
[2022-08-26 20:39] VITALS: BP 202/99
[2022-08-26] MEDS ORDERED: INSULIN LISPRO (NovoLOG) PER UNIT SC SCH (21:00)
[2022-08-26] MEDS: VERAPAMIL 80MG TABLET PO SCH (21:00)
[2022-08-26] MEDS: APIXABAN 5 MG TAB (ELIQUIS) PO SCH (21:00)
[2022-08-26] MEDS: BACLOFEN 10 MG TAB PO SCH (21:00)
[2022-08-26] MEDS: PREGABALIN 50 MG CAP (LYRICA) PO SCH (21:00)
[2022-08-26] MEDS: FAMOTIDINE 20 MG TAB PO SCH (21:00)
[2022-08-26] MEDS: traMADol 50 MG TAB PO SCH (21:00)
[2022-08-26 21:43] VITALS: BP 182/98
[2022-08-26] MEDS ORDERED: **hydrALAZINE** 50 MG TAB PO SCH (22:00)
[2022-08-26 22:17] VITALS: BP 176/84
[2022-08-26 22:18] VITALS: BP 176/84
[2022-08-27] VITALS (10 sets, daily range): BP systolic 142–202; BP diastolic 78–100
[2022-08-27] MEDS: hydrALAZINE 20MG/ML 1ML VIAL IV SCH ×2 (01:00→06:02)
[2022-08-27] MEDS: NS 1,000 ML IV SCH ×2 (05:06→17:12)
[2022-08-27 05:43] LABS: HEMATOCRIT 38.6 % (42.0-52.0); HEMOGLOBIN 12.9 g/dl (13.5-17.5); MEAN CORPUSCULAR HEMOGLOBIN 28.9 pg (27.0-33.0); MEAN CORPUSCULAR HGB CONC 33.4 g/dl (32.0-36.5); MEAN CORPUSCULAR VOLUME 86.5 fl (80.0-96.0); PLATELET COUNT, AUTOMATED 234 10^3/uL (150-450); RED BLOOD COUNT 4.46 10^6/uL (4.30-6.10); WHITE BLOOD COUNT 7.3 10^3/uL (4.0-10.0)
[2022-08-27 05:56] LABS: ALBUMIN 3.9 G/DL (3.2-5.2); ALKALINE PHOSPHATASE 70 U/L (46-116); ALT/SGPT 37 U/L (7.0-40); AST/SGOT 51 U/L (<34); BILIRUBIN,TOTAL 1.2 MG/DL (0.3-1.2); BLOOD UREA NITROGEN 13 MG/DL (9-23); CALCIUM LEVEL 9.5 MG/DL (8.3-10.6); CARBON DIOXIDE LEVEL 20 MMOL/L (20-31); CHLORIDE LEVEL 107 MMOL/L (98-107); CREATININE FOR GFR 0.87 MG/DL (0.70-1.30); GLOMERULAR FILTRATION RATE > 60.0 (>49); GLUCOSE, FASTING 102 MG/DL (74-106); MAGNESIUM LEVEL 1.7 MG/DL (1.8-2.4); POTASSIUM SERUM 4.8 MMOL/L (3.5-5.1); SODIUM LEVEL 140 MMOL/L (136-145)
[2022-08-27] MEDS: INSULIN LISPRO (NovoLOG) PER UNIT SC SCH ×3 (07:30→17:28)
[2022-08-27] MEDS ORDERED: MAGNESIUM OXIDE 400MG TAB (MAG-OX) PO ONE (08:00)
[2022-08-27] MEDS: ATORVASTATIN 20 MG TAB PO SCH (08:57)
[2022-08-27] MEDS: PREGABALIN 50 MG CAP (LYRICA) PO SCH ×2 (08:58→21:10)
[2022-08-27] MEDS: FAMOTIDINE 20 MG TAB PO SCH ×2 (08:58→21:10)
[2022-08-27] MEDS: lisinopriL 40MG TAB PO SCH (08:58)
[2022-08-27] MEDS: APIXABAN 5 MG TAB (ELIQUIS) PO SCH ×2 (08:58→21:11)
[2022-08-27] MEDS: TAMSULOSIN 0.4 MG CAP PO SCH (08:58)
[2022-08-27] MEDS: ASPIRIN 81MG CHEW TABLET PO SCH (08:58)
[2022-08-27] MEDS: BACLOFEN 10 MG TAB PO SCH ×2 (08:59→21:10)
[2022-08-27] MEDS: traMADol 50 MG TAB PO SCH ×2 (08:59→21:11)
[2022-08-27] MEDS ORDERED: hydrALAZINE 20MG/ML 1ML VIAL IV PRN (09:00)
[2022-08-27 09:34] LABS: CK-MB VALUE MASS < 1.0 NG/ML (<3.6)
[2022-08-27 09:36] LABS: CPK CREATINE PHOSPHOKINASE 56 U/L (46-171); MB/CK RELATIVE INDEX 1.78 (< OR =4)
[2022-08-27 11:26] LABS: CK-MB VALUE MASS < 1.0 NG/ML (<3.6)
[2022-08-27 11:27] LABS: CPK CREATINE PHOSPHOKINASE 52 U/L (46-171); MB/CK RELATIVE INDEX 1.92 (< OR =4)
[2022-08-27] MEDS ORDERED: ONDANSETRON 4MG 2ML VIAL IV PRN (12:50)
[2022-08-27] MEDS: VERAPAMIL 80MG TABLET PO SCH (21:12)
[2022-08-27] MEDS: **hydrALAZINE** 50 MG TAB PO SCH (21:13)
[2022-08-28] VITALS: BP 118/72
[2022-08-28] MEDS: NS 1,000 ML IV SCH (03:57)
[2022-08-28 04:00] VITALS: BP 128/66
[2022-08-28] MEDS: **hydrALAZINE** 50 MG TAB PO SCH (05:05)
[2022-08-28] MEDS: INSULIN LISPRO (NovoLOG) PER UNIT SC SCH ×3 (05:08→12:00)
[2022-08-28 05:53] LABS: HEMATOCRIT 34.6 % (42.0-52.0); HEMOGLOBIN 11.5 g/dl (13.5-17.5); MEAN CORPUSCULAR HGB CONC 33.2 g/dl (32.0-36.5); MEAN CORPUSCULAR VOLUME 87.4 fl (80.0-96.0); PLATELET COUNT, AUTOMATED 215 10^3/uL (150-450); RED BLOOD COUNT 3.96 10^6/uL (4.30-6.10); WHITE BLOOD COUNT 5.4 10^3/uL (4.0-10.0)
[2022-08-28 06:30] LABS: ALBUMIN 3.4 G/DL (3.2-5.2); ALKALINE PHOSPHATASE 64 U/L (46-116); ALT/SGPT 24 U/L (7.0-40); AST/SGOT 24 U/L (<34); BILIRUBIN,TOTAL 1.2 MG/DL (0.3-1.2); BLOOD UREA NITROGEN 21 MG/DL (9-23); CARBON DIOXIDE LEVEL 22 MMOL/L (20-31); CHLORIDE LEVEL 109 MMOL/L (98-107); CREATININE FOR GFR 0.95 MG/DL (0.70-1.30); GLOMERULAR FILTRATION RATE > 60.0 (>49); GLUCOSE, FASTING 95 MG/DL (74-106); MAGNESIUM LEVEL 1.8 MG/DL (1.8-2.4); POTASSIUM SERUM 3.6 MMOL/L (3.5-5.1); SODIUM LEVEL 141 MMOL/L (136-145); TOTAL PROTEIN 6.1 G/DL (5.7-8.2)
[2022-08-28 08:00] VITALS: BP 150/84
[2022-08-28 08:12] VITALS: BP 150/84
[2022-08-28] MEDS: APIXABAN 5 MG TAB (ELIQUIS) PO SCH (08:26)
[2022-08-28] MEDS: FAMOTIDINE 20 MG TAB PO SCH (08:26)
[2022-08-28] MEDS: ATORVASTATIN 20 MG TAB PO SCH (08:26)
[2022-08-28] MEDS: TAMSULOSIN 0.4 MG CAP PO SCH (08:26)
[2022-08-28] MEDS: lisinopriL 40MG TAB PO SCH (08:26)
[2022-08-28] MEDS: PREGABALIN 50 MG CAP (LYRICA) PO SCH (08:26)
[2022-08-28] MEDS: BACLOFEN 10 MG TAB PO SCH (08:27)
[2022-08-28] MEDS: ASPIRIN 81MG CHEW TABLET PO SCH (08:27)
[2022-08-28] MEDS: traMADol 50 MG TAB PO SCH (08:28)
[2022-08-28] MEDS ORDERED: THIAMINE 100 MG TAB PO SCH (09:00)
[2022-08-28] MEDS ORDERED: **hydrALAZINE** 50 MG TAB PO ONE (10:05)
[2022-08-28 10:14] VITALS: BP 140/72
[2022-08-28] MEDS ORDERED: THIA100TA PO (10:27)
[2022-08-28 11:57] VITALS: BP 146/72
== END 2022-08-28 14:14 | disposition home health service (06) | DRG 78 ==
LOC: M ED 11:28 → M ED INP 15:21 → M PCU 20:16
PROVIDERS: ADMIT Internal Medicine; ATTEND Internal Medicine
DX: I67.4 Hypertensive encephalopathy (principal); I50.32 Chronic diastolic (congestive) heart failure; I16.9 Hypertensive crisis, unspecified; G43.909 Migraine, unspecified, not intractable, without status migrainosus; I25.10 Atherosclerotic heart disease of native coronary artery without angina pectoris; I11.0 Hypertensive heart disease with heart failure; I25.2 Old myocardial infarction; F41.8 Other specified anxiety disorders; F43.10 Post-traumatic stress disorder, unspecified; I48.91 Unspecified atrial fibrillation; R26.89 Other abnormalities of gait and mobility; E78.5 Hyperlipidemia, unspecified; E03.9 Hypothyroidism, unspecified; K21.9 Gastro-esophageal reflux disease without esophagitis; E11.42 Type 2 diabetes mellitus with diabetic polyneuropathy; M54.9 Dorsalgia, unspecified; Z86.73 Personal history of transient ischemic attack (TIA), and cerebral infarction without residual deficits; G89.29 Other chronic pain; Z86.711 Personal history of pulmonary embolism; Z86.718 Personal history of other venous thrombosis and embolism; Z95.5 Presence of coronary angioplasty implant and graft; Z79.4 Long term (current) use of insulin; Z79.01 Long term (current) use of anticoagulants; Z79.899 Other long term (current) drug therapy; Z88.8 Allergy status to other drugs, medicaments and biological substances; Z20.822 Contact with and (suspected) exposure to COVID-19

== ENCOUNTER 2022-09-26 11:15 | Observation (INO) | payer OTHER, MEDICAID ==
[2022-09-26] VITALS (10 sets, daily range): BP systolic 118–157; BP diastolic 60–79
[~2022-09-26] VITALS: Ht 182.9 cm; Wt 116.8 kg
[~2022-09-26 11:15] MED LIST changes: +B-12100021 PO; +BACL10TA2 PO; +HYDR100T PO; +INSU100I16 SC; +JARD1TAB3 PO; +LACT1TAB5 PO; +PREG50CA PO; +THIA100TA PO; +VERA120T9 PO
[2022-09-26 13:04] LABS: HEMATOCRIT 39.5 % (42.0-52.0); HEMOGLOBIN 13.3 g/dl (13.5-17.5); MEAN CORPUSCULAR HEMOGLOBIN 28.6 pg (27.0-33.0); MEAN CORPUSCULAR HGB CONC 33.7 g/dl (32.0-36.5); MEAN CORPUSCULAR VOLUME 84.9 fl (80.0-96.0); RED BLOOD COUNT 4.65 10^6/uL (4.30-6.10); WHITE BLOOD COUNT 7.3 10^3/uL (4.0-10.0)
[2022-09-26 13:05] LABS: BASO % 0.4 % (0.0-1.0); EOS # 0.1 10^3/uL (0.0-0.5); EOS % 1.8 % (0.0-3.0); LYMPH # 1.6 10^3/uL (1.5-5.0); LYMPH % 22.2 % (24.0-44.0); MONO # 0.5 10^3/uL (0.0-0.8); MONO % 6.7 % (2.0-8.0); NEUTROPHILS % 68.6 % (36.0-66.0); PLATELET COUNT, AUTOMATED 177 10^3/uL (150-450)
[2022-09-26 13:19] LABS: INR 1.09; PARTIAL THROMBOPLASTIN TIME 34.7 SECONDS (24.8-34.2); PROTHROMBIN TIME 14.3 SECONDS (12.5-14.5)
[2022-09-26 13:33] LABS: RSV AMPLIFICATION NEGATIVE (NEGATIVE)
[2022-09-26 13:33] LABS: ETHYL ALCOHOL (ETHANOL) 0.009 % (0.000-0.010)
[2022-09-26 13:35] LABS: ACETAMINOPHEN LEVEL < 2.0 UG/ML (10.0-20.0); ALBUMIN 3.9 G/DL (3.2-5.2); ALKALINE PHOSPHATASE 79 U/L (46-116); ALT/SGPT 28 U/L (7.0-40); AST/SGOT 26 U/L (<34); BILIRUBIN,DIRECT 0.3 MG/DL (<0.4); BILIRUBIN,TOTAL 0.6 MG/DL (0.3-1.2); BLOOD UREA NITROGEN 17 MG/DL (9-23); CALCIUM LEVEL 8.9 MG/DL (8.3-10.6); CARBON DIOXIDE LEVEL 26 MMOL/L (20-31); CHLORIDE LEVEL 107 MMOL/L (98-107); CPK CREATINE PHOSPHOKINASE 338 U/L (46-171); CREATININE FOR GFR 0.93 MG/DL (0.70-1.30); GLOMERULAR FILTRATION RATE > 60.0 (>49); GLUCOSE, FASTING 80 MG/DL (74-106); POTASSIUM SERUM 4.4 MMOL/L (3.5-5.1); SALICYLATE LEVEL < 3.0 MG/DL (<30); SODIUM LEVEL 140 MMOL/L (136-145); TOTAL PROTEIN 6.7 G/DL (5.7-8.2)
[2022-09-26 13:36] LABS: OSMOLALITY SERUM 288 MOSM/KG (280-301)
[2022-09-26 13:37] LABS: THYROID STIMULATING HORMONE 0.726 uIU/ML (0.55-4.78)
[2022-09-26] MEDS ORDERED: THIA100TA PO (14:40)
[2022-09-26] MEDS ORDERED: PREG100C PO (14:40)
[2022-09-26] MEDS ORDERED: HOME MED LIST COMPLETE! XX SCH (14:45)
[2022-09-26 15:26] LABS: BARBITURATES URINE NEGATIVE (NEGATIVE); COCAINE METABOLITE URINE NEGATIVE (NEGATIVE); PHENCYCLIDINE URINE NEGATIVE (NEGATIVE)
[2022-09-26 15:27] LABS: AMPHETAMINES LEVEL URINE NEGATIVE (NEGATIVE); BENZODIAZEPINES URINE NEGATIVE (NEGATIVE); METHADONE URINE NEGATIVE (NEGATIVE); OPIATES URINE NEGATIVE (NEGATIVE)
[2022-09-26 15:56] LABS: CANNABINOIDS URINE POSITIVE (NEGATIVE)
[2022-09-26] MEDS ORDERED: GLUCAGON INJ 1MG VIAL SC PRN (16:05)
[2022-09-26] MEDS ORDERED: NITROGLYCERIN 0.4MG SUBL TABLET SL PRN (16:05)
[2022-09-26] MEDS ORDERED: traMADol 50 MG TAB PO PRN (16:05)
[2022-09-26] MEDS ORDERED: GLUCOSE 4GM CHEW TABLET PO PRN (16:05)
[2022-09-26] MEDS ORDERED: DEXTROSE 50% 50ML SYRINGE IV PRN (16:05)
[2022-09-26] MEDS ORDERED: ACETAMINOPHEN TAB 650MG DOSE (2X325MG) PO PRN (16:05)
[2022-09-26] MEDS: INSULIN LISPRO (NovoLOG) PER UNIT SC SCH ×2 (17:22→19:45)
[2022-09-26] MEDS: LEVEMIR (INSULIN DETEMIR) 1 UNITS/0.01ML SC SCH (19:45)
[2022-09-26] MEDS: VERAPAMIL 80MG TABLET PO SCH (21:27)
[2022-09-26] MEDS: APIXABAN 5 MG TAB (ELIQUIS) PO SCH (21:27)
[2022-09-26] MEDS: traMADol 50 MG TAB PO SCH (21:27)
[2022-09-26] MEDS: PREGABALIN 100 MG CAP (LYRICA) PO SCH (21:27)
[2022-09-26] MEDS: FAMOTIDINE 20 MG TAB PO SCH (21:27)
[2022-09-26] MEDS: BACLOFEN 10 MG TAB PO SCH (21:27)
[2022-09-27] VITALS (8 sets, daily range): BP systolic 134–169; BP diastolic 80–87
[2022-09-27 06:40] LABS: HEMOGLOBIN 12.9 g/dl (13.5-17.5); MEAN CORPUSCULAR HEMOGLOBIN 28.7 pg (27.0-33.0); MEAN CORPUSCULAR HGB CONC 33.9 g/dl (32.0-36.5); MEAN CORPUSCULAR VOLUME 84.6 fl (80.0-96.0); PLATELET COUNT, AUTOMATED 164 10^3/uL (150-450); RED BLOOD COUNT 4.49 10^6/uL (4.30-6.10); WHITE BLOOD COUNT 6.1 10^3/uL (4.0-10.0)
[2022-09-27 07:08] LABS: ALBUMIN 3.8 G/DL (3.2-5.2); ALKALINE PHOSPHATASE 79 U/L (46-116); ALT/SGPT 31 U/L (7.0-40); AST/SGOT 36 U/L (<34); BILIRUBIN,TOTAL 0.6 MG/DL (0.3-1.2); BLOOD UREA NITROGEN 19 MG/DL (9-23); CARBON DIOXIDE LEVEL 27 MMOL/L (20-31); CHLORIDE LEVEL 109 MMOL/L (98-107); CREATININE FOR GFR 0.93 MG/DL (0.70-1.30); GLOMERULAR FILTRATION RATE > 60.0 (>49); GLUCOSE, FASTING 85 MG/DL (74-106); POTASSIUM SERUM 4.1 MMOL/L (3.5-5.1); SODIUM LEVEL 141 MMOL/L (136-145); TOTAL PROTEIN 6.5 G/DL (5.7-8.2)
[2022-09-27] MEDS: INSULIN LISPRO (NovoLOG) PER UNIT SC SCH ×4 (07:30→20:21)
[2022-09-27 08:19] LABS: FREE T4 0.67 NG/DL (0.89-1.76)
[2022-09-27 08:20] LABS: FOLATE > 24.0 NG/ML (>5.4); VITAMIN B12 LEVEL 580 PG/ML (211-911)
[2022-09-27 09:56] LABS: HEMOGLOBIN A1c 4.8 % (4.0-6.0)
[2022-09-27] MEDS: BACLOFEN 10 MG TAB PO SCH ×2 (10:18→20:26)
[2022-09-27] MEDS: lisinopriL 40MG TAB PO SCH (10:18)
[2022-09-27] MEDS: TAMSULOSIN 0.4 MG CAP PO SCH (10:18)
[2022-09-27] MEDS: PREGABALIN 100 MG CAP (LYRICA) PO SCH ×2 (10:18→20:26)
[2022-09-27] MEDS: LEVEMIR (INSULIN DETEMIR) 1 UNITS/0.01ML SC SCH ×2 (10:18→20:32)
[2022-09-27] MEDS: traMADol 50 MG TAB PO SCH ×2 (10:18→20:26)
[2022-09-27] MEDS: THIAMINE 100 MG TAB PO SCH (10:19)
[2022-09-27] MEDS: ATORVASTATIN 20 MG TAB PO SCH (10:19)
[2022-09-27] MEDS: APIXABAN 5 MG TAB (ELIQUIS) PO SCH ×2 (10:19→20:26)
[2022-09-27] MEDS: FAMOTIDINE 20 MG TAB PO SCH ×2 (10:19→20:26)
[2022-09-27] MEDS: ASPIRIN 81MG CHEW TABLET PO SCH (10:19)
[2022-09-27] MEDS: VERAPAMIL 80MG TABLET PO SCH (20:27)
[2022-09-28 04:05] VITALS: BP 143/74
[2022-09-28 04:21] LABS: HEMATOCRIT 36.6 % (42.0-52.0); HEMOGLOBIN 12.6 g/dl (13.5-17.5); MEAN CORPUSCULAR HEMOGLOBIN 28.8 pg (27.0-33.0); MEAN CORPUSCULAR HGB CONC 34.4 g/dl (32.0-36.5); MEAN CORPUSCULAR VOLUME 83.8 fl (80.0-96.0); PLATELET COUNT, AUTOMATED 164 10^3/uL (150-450); RED BLOOD COUNT 4.37 10^6/uL (4.30-6.10); WHITE BLOOD COUNT 5.9 10^3/uL (4.0-10.0)
[2022-09-28 04:44] LABS: BLOOD UREA NITROGEN 23 MG/DL (9-23); CARBON DIOXIDE LEVEL 26 MMOL/L (20-31); CHLORIDE LEVEL 107 MMOL/L (98-107); CREATININE FOR GFR 0.92 MG/DL (0.70-1.30); GLOMERULAR FILTRATION RATE > 60.0 (>49); GLUCOSE, FASTING 103 MG/DL (74-106); POTASSIUM SERUM 3.8 MMOL/L (3.5-5.1); SODIUM LEVEL 141 MMOL/L (136-145)
[2022-09-28] MEDS: INSULIN LISPRO (NovoLOG) PER UNIT SC SCH (07:30)
[2022-09-28 07:33] VITALS: BP 138/77
[2022-09-28] MEDS: TAMSULOSIN 0.4 MG CAP PO SCH (08:12)
[2022-09-28] MEDS: ASPIRIN 81MG CHEW TABLET PO SCH (08:13)
[2022-09-28] MEDS: ATORVASTATIN 20 MG TAB PO SCH (08:13)
[2022-09-28] MEDS: BACLOFEN 10 MG TAB PO SCH (08:13)
[2022-09-28] MEDS: lisinopriL 40MG TAB PO SCH (08:14)
[2022-09-28] MEDS: APIXABAN 5 MG TAB (ELIQUIS) PO SCH (08:14)
[2022-09-28] MEDS: THIAMINE 100 MG TAB PO SCH (08:14)
[2022-09-28] MEDS: traMADol 50 MG TAB PO SCH (08:14)
[2022-09-28] MEDS: FAMOTIDINE 20 MG TAB PO SCH (08:14)
[2022-09-28] MEDS: PREGABALIN 100 MG CAP (LYRICA) PO SCH (08:14)
[2022-09-28] MEDS: LEVEMIR (INSULIN DETEMIR) 1 UNITS/0.01ML SC SCH (09:00)
[2022-09-28] MEDS ORDERED: INSUDET SC (09:10)
== END 2022-09-28 11:10 | disposition home health service (06) ==
LOC: M ED 11:15 → M ED INP 16:03 → ENRESERV 16:59 → M PCU 18:25
PROVIDERS: ADMIT Family Medicine; ATTEND Family Medicine
DX: R41.82 Altered mental status, unspecified (principal); I11.0 Hypertensive heart disease with heart failure; E11.649 Type 2 diabetes mellitus with hypoglycemia without coma; I69.351 Hemiplegia and hemiparesis following cerebral infarction affecting right dominant side; I48.91 Unspecified atrial fibrillation; G31.84 Mild cognitive impairment of uncertain or unknown etiology; I25.10 Atherosclerotic heart disease of native coronary artery without angina pectoris; I25.2 Old myocardial infarction; Z95.5 Presence of coronary angioplasty implant and graft; I50.30 Unspecified diastolic (congestive) heart failure; E78.5 Hyperlipidemia, unspecified; E03.9 Hypothyroidism, unspecified; F32.A Depression, unspecified; F41.9 Anxiety disorder, unspecified; G43.909 Migraine, unspecified, not intractable, without status migrainosus; Z86.718 Personal history of other venous thrombosis and embolism; Z86.711 Personal history of pulmonary embolism; Z79.899 Other long term (current) drug therapy; Z79.01 Long term (current) use of anticoagulants; Z79.4 Long term (current) use of insulin; Z79.82 Long term (current) use of aspirin; Z79.84 Long term (current) use of oral hypoglycemic drugs; Z88.8 Allergy status to other drugs, medicaments and biological substances; Z98.1 Arthrodesis status; F17.210 Nicotine dependence, cigarettes, uncomplicated
CPT/HCPCS: 36415; 70450; 71045; 80048; 80053; 80076; 80143; 80307; 81001; 82077; 82550; 82607; 82746; 83036; 83930; 84439; 84443; 85025; 85027; 85610; 85730; 86780; 87631; 93005; 93041; 94760; 97161; 97530; 99285; G0378; J1815

== ENCOUNTER 2022-11-29 19:13 | Emergency (ER) | payer MEDICAID, OTHER ==
[~2022-11-29] VITALS: Ht 182.9 cm; Wt 114.5 kg
[~2022-11-29 19:13] MED LIST changes: +DICY-61 PO; -DICY10CA13 PO; +PREG100C PO
[2022-11-29] MEDS ORDERED: diazePAM 10MG/2ML SYRINGE IV ONE (19:35)
[2022-11-29] MEDS ORDERED: NS 1,000 ML IV ONE (19:35)
[2022-11-29] MEDS ORDERED: ONDANSETRON 4MG 2ML VIAL IV ONE (19:35)
[2022-11-29 20:22] LABS: BASO # 0.1 10^3/uL (0.0-0.2); BASO % 1.4 % (0.0-1.0); EOS # 0.2 10^3/uL (0.0-0.5); EOS % 2.6 % (0.0-3.0); HEMATOCRIT 39.9 % (42.0-52.0); HEMOGLOBIN 13.7 g/dl (13.5-17.5); LYMPH # 2.9 10^3/uL (1.5-5.0); LYMPH % 43.4 % (24.0-44.0); MEAN CORPUSCULAR HEMOGLOBIN 28.2 pg (27.0-33.0); MEAN CORPUSCULAR HGB CONC 34.3 g/dl (32.0-36.5); MEAN CORPUSCULAR VOLUME 82.3 fl (80.0-96.0); MONO # 0.5 10^3/uL (0.0-0.8); MONO % 7.7 % (2.0-8.0); NEUTROPHILS # 2.9 10^3/uL (1.5-8.5); NEUTROPHILS % 44.6 % (36.0-66.0); PLATELET COUNT, AUTOMATED 200 10^3/uL (150-450); RED BLOOD COUNT 4.85 10^6/uL (4.30-6.10); WHITE BLOOD COUNT 6.6 10^3/uL (4.0-10.0)
[2022-11-29 20:47] LABS: CK-MB VALUE MASS < 1.0 NG/ML (<3.6); LIPASE 32 U/L (12-53)
[2022-11-29 20:49] LABS: ALBUMIN 4.1 G/DL (3.2-5.2); ALKALINE PHOSPHATASE 121 U/L (46-116); ALT/SGPT 22 U/L (7.0-40); AST/SGOT 19 U/L (<34); BILIRUBIN,TOTAL 0.6 MG/DL (0.3-1.2); BLOOD UREA NITROGEN 25 MG/DL (9-23); CALCIUM LEVEL 8.8 MG/DL (8.3-10.6); CARBON DIOXIDE LEVEL 24 MMOL/L (20-31); CHLORIDE LEVEL 111 MMOL/L (98-107); CPK CREATINE PHOSPHOKINASE 77 U/L (46-171); CREATININE FOR GFR 1.08 MG/DL (0.70-1.30); GLOMERULAR FILTRATION RATE > 60.0 (>49); GLUCOSE, FASTING 160 MG/DL (74-106); MB/CK RELATIVE INDEX 1.29 (< OR =4); POTASSIUM SERUM 4.3 MMOL/L (3.5-5.1); SODIUM LEVEL 141 MMOL/L (136-145); TOTAL PROTEIN 6.9 G/DL (5.7-8.2)
[2022-11-29] MEDS ORDERED: ISOVUE-370 76% 100ML VIAL As Ordered ONE (20:49)
[2022-11-29] MEDS ORDERED: METOCLOPRAMIDE INJ 10MG/2ML VIAL IV ONE (21:45)
[2022-11-29] MEDS ORDERED: ANEXSIA, NORCO 7.5MG/325MG TABLET(HYDROCODONE/APAP) PO ONE (22:00)
[2022-11-29] MEDS ORDERED: LIDO5DIS41 TD (23:05)
[2022-11-29] MEDS ORDERED: HYDR-3713 PO (23:05)
[2022-11-29] MEDS ORDERED: LIDOCAINE 5% (LIDODERM) PATCH TD ONE (23:10)
[2022-11-29] MEDS ORDERED: NORCO, ANEXSIA 5/325MG TABLET (HYDROcodone/ACETAMINOPHEN) PO ONE (23:10)
[2022-11-29 23:20] VITALS: BP 135/67; TEMP 97.3
[2022-11-30 00:08] VITALS: O2SAT 97
== END 2022-11-30 00:19 | disposition home or self-care (01) ==
LOC: M ED 19:13 → EDBD 19:13 → M ED 11-30 00:19
DX: S39.011A Strain of muscle, fascia and tendon of abdomen, initial encounter (principal); X58.XXXA Exposure to other specified factors, initial encounter; Y92.89 Other specified places as the place of occurrence of the external cause; Y93.89 Activity, other specified; Y99.8 Other external cause status; I11.9 Hypertensive heart disease without heart failure; I25.10 Atherosclerotic heart disease of native coronary artery without angina pectoris; E11.9 Type 2 diabetes mellitus without complications; E78.5 Hyperlipidemia, unspecified; K58.9 Irritable bowel syndrome, unspecified; N40.0 Benign prostatic hyperplasia without lower urinary tract symptoms; Z79.01 Long term (current) use of anticoagulants; F17.200 Nicotine dependence, unspecified, uncomplicated; Z88.8 Allergy status to other drugs, medicaments and biological substances; Z79.4 Long term (current) use of insulin; Z79.82 Long term (current) use of aspirin; Z79.899 Other long term (current) drug therapy
CPT/HCPCS: 71275; 74177; 80047; 80053; 82550; 82553; 83605; 83690; 84484; 85025; 93005; 96374; 96375; 99284; J2405; J2765; J3360; Q9967

== ENCOUNTER 2023-05-07 21:02 | Inpatient (IN) | payer MEDICAID, OTHER ==
[~2023-05-07] VITALS: Ht 182.9 cm; Wt 113.9 kg
[~2023-05-07 21:02] MED LIST changes: +DICL100G10 TOP; -DICL1GEL3 TOP; +HYDR-3713 PO; +LIDO5DIS41 TD; -MIRT-62 PO; +MIRT-88 PO; -PREG100C PO; +PREG100C2 PO
[2023-05-07 22:03] LABS: BASO % 0.5 % (0.0-1.0); EOS # 0.3 10^3/uL (0.0-0.5); EOS % 3.5 % (0.0-3.0); HEMATOCRIT 40.8 % (42.0-52.0); HEMOGLOBIN 13.9 g/dl (13.5-17.5); LYMPH # 3.5 10^3/uL (1.5-5.0); MEAN CORPUSCULAR HEMOGLOBIN 29.6 pg (27.0-33.0); MEAN CORPUSCULAR HGB CONC 34.1 g/dl (32.0-36.5); MONO # 0.5 10^3/uL (0.0-0.8); MONO % 6.5 % (2.0-8.0); NEUTROPHILS # 3.3 10^3/uL (1.5-8.5); PLATELET COUNT, AUTOMATED 230 10^3/uL (150-450); RED BLOOD COUNT 4.69 10^6/uL (4.30-6.10); WHITE BLOOD COUNT 7.7 10^3/uL (4.0-10.0)
[2023-05-07 22:07] LABS: INR 1.09; PROTHROMBIN TIME 13.8 SECONDS (12.5-14.5)
[2023-05-07 22:08] LABS: PARTIAL THROMBOPLASTIN TIME 33.3 SECONDS (24.8-34.2)
[2023-05-07 22:11] LABS: BLOOD UREA NITROGEN 11 MG/DL (9-23); CALCIUM LEVEL 8.9 MG/DL (8.3-10.6); CARBON DIOXIDE LEVEL 27 MMOL/L (20-31); CHLORIDE LEVEL 109 MMOL/L (98-107); CK-MB VALUE MASS < 1.0 NG/ML (<3.6); CPK CREATINE PHOSPHOKINASE 77 U/L (46-171); CREATININE FOR GFR 0.73 MG/DL (0.70-1.30); GLOMERULAR FILTRATION RATE > 60.0 (>49); GLUCOSE, FASTING 208 MG/DL (74-106); MB/CK RELATIVE INDEX 1.29 (< OR =4); POTASSIUM SERUM 3.9 MMOL/L (3.5-5.1); SODIUM LEVEL 143 MMOL/L (136-145)
[2023-05-07 22:12] LABS: THYROID STIMULATING HORMONE 1.482 uIU/ML (0.55-4.78)
[2023-05-07 22:13] LABS: FREE T4 0.97 NG/DL (0.89-1.76)
[2023-05-07] MEDS ORDERED: ISOVUE-370 76% 100ML VIAL As Ordered ONE (22:21)
[2023-05-07 23:01] LABS: RSV AMPLIFICATION NEGATIVE (NEGATIVE)
[2023-05-07] MEDS: NITROGLYCERIN 0.4MG SUBL TABLET SL PRN ×3 (23:10→23:32)
[2023-05-07 23:52] LABS: CK-MB VALUE MASS < 1.0 NG/ML (<3.6)
[2023-05-07 23:55] LABS: CPK CREATINE PHOSPHOKINASE 80 U/L (46-171); MB/CK RELATIVE INDEX 1.25 (< OR =4)
[2023-05-08] MEDS ORDERED: ACETAMINOPHEN TAB 650MG DOSE (2X325MG) PO ONE (00:30)
[2023-05-08] MEDS ORDERED: GLUCAGON INJ 1MG VIAL SC PRN (01:55)
[2023-05-08] MEDS ORDERED: GLUCOSE 4GM CHEW TABLET PO PRN (01:55)
[2023-05-08] MEDS ORDERED: DEXTROSE 50% 50ML SYRINGE IV PRN (01:55)
[2023-05-08 02:58] VITALS: BP 128/78; TEMP 97.3; O2SAT 100
[2023-05-08] MEDS ORDERED: METO1TAB32 PO (03:52)
[2023-05-08] MEDS ORDERED: CETI10TA4 PO (03:52)
[2023-05-08] MEDS ORDERED: INSUDET SC (03:52)
[2023-05-08] MEDS ORDERED: FURO20TA2 PO (03:52)
[2023-05-08] MEDS ORDERED: PANT40TA29 PO (03:52)
[2023-05-08] MEDS ORDERED: LISI5TAB11 PO (03:52)
[2023-05-08] MEDS ORDERED: INSUH10VL SC (03:52)
[2023-05-08] MEDS ORDERED: FLON1SPR NARES (03:52)
[2023-05-08] MEDS ORDERED: GABA600T4 PO (03:52)
[2023-05-08] MEDS ORDERED: DICY1CAP8 PO (03:52)
[2023-05-08] MEDS ORDERED: ABIL1TAB11 PO (03:52)
[2023-05-08] MEDS ORDERED: ACID1CHW5 PO (03:52)
[2023-05-08] MEDS ORDERED: TRAM50TA2 PO (03:52)
[2023-05-08] MEDS ORDERED: HOME MED LIST COMPLETE! XX SCH (03:55)
[2023-05-08] MEDS ORDERED: LORazepam 2 MG TAB PO PRN (04:20)
[2023-05-08] MEDS ORDERED: PILL CUTTER 1 EACH XX PRN (04:25)
[2023-05-08] MEDS ORDERED: THIAMINE 100 MG TAB PO SCH (05:00)
[2023-05-08 05:03] VITALS: BP 123/69
[2023-05-08 05:52] LABS: BASO # 0.1 10^3/uL (0.0-0.2); BASO % 0.9 % (0.0-1.0); EOS # 0.2 10^3/uL (0.0-0.5); HEMATOCRIT 37.7 % (42.0-52.0); HEMOGLOBIN 12.8 g/dl (13.5-17.5); LYMPH # 2.8 10^3/uL (1.5-5.0); LYMPH % 49.2 % (24.0-44.0); MEAN CORPUSCULAR HEMOGLOBIN 29.4 pg (27.0-33.0); MEAN CORPUSCULAR VOLUME 86.5 fl (80.0-96.0); MONO # 0.4 10^3/uL (0.0-0.8); MONO % 6.9 % (2.0-8.0); NEUTROPHILS # 2.2 10^3/uL (1.5-8.5); NEUTROPHILS % 39.5 % (36.0-66.0); PLATELET COUNT, AUTOMATED 191 10^3/uL (150-450); RED BLOOD COUNT 4.36 10^6/uL (4.30-6.10); WHITE BLOOD COUNT 5.7 10^3/uL (4.0-10.0)
[2023-05-08] MEDS ORDERED: traMADol 50 MG TAB PO ONE (06:00)
[2023-05-08] MEDS ORDERED: APIXABAN 5 MG TAB (ELIQUIS) PO SCH (06:00)
[2023-05-08] MEDS ORDERED: ACETAMINOPHEN TAB 650MG DOSE (2X325MG) PO PRN (06:00)
[2023-05-08 06:04] VITALS: BP_SYST 121; BP_SYST 123; BP_SYST 125; BP_DIAS 67; BP_DIAS 69
[2023-05-08 06:14] LABS: ALBUMIN 3.8 G/DL (3.2-5.2); ALKALINE PHOSPHATASE 113 U/L (46-116); ALT/SGPT 36 U/L (7.0-40); AST/SGOT 19 U/L (<34); BILIRUBIN,TOTAL 0.5 MG/DL (0.3-1.2); BLOOD UREA NITROGEN 10 MG/DL (9-23); CALCIUM LEVEL 8.7 MG/DL (8.3-10.6); CARBON DIOXIDE LEVEL 27 MMOL/L (20-31); CHLORIDE LEVEL 111 MMOL/L (98-107); CREATININE FOR GFR 0.66 MG/DL (0.70-1.30); GLOMERULAR FILTRATION RATE > 60.0 (>49); GLUCOSE, FASTING 146 MG/DL (74-106); MAGNESIUM LEVEL 1.8 MG/DL (1.8-2.4); SODIUM LEVEL 144 MMOL/L (136-145); TOTAL PROTEIN 6.5 G/DL (5.7-8.2)
[2023-05-08 06:28] VITALS: TEMP 97.5; O2SAT 95
[2023-05-08] MEDS ORDERED: BACLOFEN 10 MG TAB PO SCH (08:00)
[2023-05-08] MEDS ORDERED: TAMSULOSIN 0.4 MG CAP PO SCH (09:00)
[2023-05-08] MEDS ORDERED: LEVEMIR (INSULIN DETEMIR) 1 UNITS/0.01ML SC SCH (09:00)
[2023-05-08] MEDS ORDERED: GABAPENTIN 300 MG CAP PO SCH (09:00)
[2023-05-08] MEDS ORDERED: FOLIC ACID 1MG TAB PO SCH (09:00)
[2023-05-08] MEDS ORDERED: PANTOPRAZOLE 40MG TAB (PROTONIX) PO SCH (09:00)
[2023-05-08] MEDS ORDERED: ATORVASTATIN 20 MG TAB PO SCH (09:00)
[2023-05-08] MEDS ORDERED: METOPROLOL SUCC *XL* 25MG TAB (TopROL *XL*) PO SCH (09:00)
[2023-05-08] MEDS ORDERED: FUROSEMIDE 20 MG TAB PO SCH (09:00)
[2023-05-08] MEDS ORDERED: lisinopriL 5 MG TAB PO SCH (09:00)
[2023-05-08] MEDS ORDERED: MULTIVITAMINS/MINERALS THERAP 1 TAB PO SCH (09:00)
[2023-05-08] MEDS ORDERED: FAMOTIDINE 20 MG TAB PO SCH (09:00)
[2023-05-08] MEDS: INSULIN LISPRO (NovoLOG) PER UNIT SC SCH ×3 (09:06→17:18)
[2023-05-08 09:18] VITALS: BP 121/67
[2023-05-08 09:40] LABS: C REACTIVE PROTEIN QUANTITATIV < 0.40 MG/DL (<1.0)
[2023-05-08 09:53] LABS: ERYTHROCYTE SEDIMENTATION RATE 1 mm/hr (0-20)
[2023-05-08 12:40] VITALS: BP 135/73
[2023-05-08] MEDS ORDERED: INSULIN LISPRO (NovoLOG) PER UNIT SC SCH (21:00)
== END 2023-05-08 17:57 | disposition home health service (06) | DRG 312 ==
LOC: EDBD 21:02 → M ED 21:02 → M ED INP 05-08 01:53 → M MSPAV 05-08 02:58
PROVIDERS: ADMIT Family Medicine; ATTEND Internal Medicine
PROC: B246ZZZ Ultrasonography of Right and Left Heart (ICD-10-PCS; principal; 2023-05-08)
DX: I95.1 Orthostatic hypotension (principal); U07.1 COVID-19; I50.32 Chronic diastolic (congestive) heart failure; G43.909 Migraine, unspecified, not intractable, without status migrainosus; I25.2 Old myocardial infarction; F32.A Depression, unspecified; F41.9 Anxiety disorder, unspecified; F43.10 Post-traumatic stress disorder, unspecified; E86.0 Dehydration; M25.561 Pain in right knee; I48.91 Unspecified atrial fibrillation; I25.10 Atherosclerotic heart disease of native coronary artery without angina pectoris; F17.200 Nicotine dependence, unspecified, uncomplicated; R41.89 Other symptoms and signs involving cognitive functions and awareness; E78.5 Hyperlipidemia, unspecified; E03.9 Hypothyroidism, unspecified; I34.0 Nonrheumatic mitral (valve) insufficiency; K21.9 Gastro-esophageal reflux disease without esophagitis; E11.9 Type 2 diabetes mellitus without complications; G89.29 Other chronic pain; M54.50 Low back pain, unspecified; Z95.5 Presence of coronary angioplasty implant and graft; Z86.73 Personal history of transient ischemic attack (TIA), and cerebral infarction without residual deficits; Z86.718 Personal history of other venous thrombosis and embolism; Z86.711 Personal history of pulmonary embolism; Z95.828 Presence of other vascular implants and grafts; Z98.1 Arthrodesis status

== ENCOUNTER 2023-05-25 13:51 | Emergency (ER) | payer OTHER ==
[~2023-05-25] VITALS: Ht 182.9 cm; Wt 112.3 kg
[~2023-05-25 13:51] MED LIST changes: +ABIL1TAB11 PO; +ACID1CHW5 PO; +CETI10TA4 PO; +DICY1CAP8 PO; +FLON1SPR NARES; +FURO20TA2 PO; +INSUH10VL SC; +LISI5TAB11 PO; +METO1TAB32 PO; +PANT40TA29 PO
[2023-05-25 15:24] LABS: CK-MB VALUE MASS < 1.0 NG/ML (<3.6); LIPASE 25 U/L (12-53)
[2023-05-25 15:26] LABS: ALKALINE PHOSPHATASE 133 U/L (46-116); ALT/SGPT 44 U/L (7.0-40); AST/SGOT 29 U/L (<34); BILIRUBIN,DIRECT 0.3 MG/DL (<0.4); BILIRUBIN,TOTAL 0.8 MG/DL (0.3-1.2); BLOOD UREA NITROGEN 10 MG/DL (9-23); CALCIUM LEVEL 8.7 MG/DL (8.3-10.6); CARBON DIOXIDE LEVEL 28 MMOL/L (20-31); CHLORIDE LEVEL 109 MMOL/L (98-107); CREATININE FOR GFR 0.75 MG/DL (0.70-1.30); GLOMERULAR FILTRATION RATE > 60.0 (>49); GLUCOSE, FASTING 141 MG/DL (74-106); POTASSIUM SERUM 4.5 MMOL/L (3.5-5.1); SODIUM LEVEL 142 MMOL/L (136-145)
[2023-05-25 15:27] LABS: THYROID STIMULATING HORMONE 1.888 uIU/ML (0.55-4.78)
[2023-05-25 15:28] LABS: FREE T4 0.89 NG/DL (0.89-1.76)
[2023-05-25 15:29] LABS: CPK CREATINE PHOSPHOKINASE 74 U/L (46-171); MB/CK RELATIVE INDEX 1.35 (< OR =4)
[2023-05-25 15:34] LABS: RSV AMPLIFICATION NEGATIVE (NEGATIVE)
[2023-05-25 17:04] LABS: BASO # 0.1 10^3/uL (0.0-0.2); BASO % 1.2 % (0.0-1.0); EOS # 0.3 10^3/uL (0.0-0.5); EOS % 5.1 % (0.0-3.0); HEMATOCRIT 40.8 % (42.0-52.0); LYMPH # 2.6 10^3/uL (1.5-5.0); LYMPH % 43.2 % (24.0-44.0); MEAN CORPUSCULAR HEMOGLOBIN 29.9 pg (27.0-33.0); MEAN CORPUSCULAR HGB CONC 34.3 g/dl (32.0-36.5); MEAN CORPUSCULAR VOLUME 87.2 fl (80.0-96.0); MONO # 0.3 10^3/uL (0.0-0.8); MONO % 5.6 % (2.0-8.0); NEUTROPHILS # 2.6 10^3/uL (1.5-8.5); NEUTROPHILS % 44.1 % (36.0-66.0); PLATELET COUNT, AUTOMATED 168 10^3/uL (150-450); RED BLOOD COUNT 4.68 10^6/uL (4.30-6.10); WHITE BLOOD COUNT 5.9 10^3/uL (4.0-10.0)
[2023-05-25 17:31] LABS: CK-MB VALUE MASS < 1.0 NG/ML (<3.6)
[2023-05-25 17:33] LABS: CPK CREATINE PHOSPHOKINASE 72 U/L (46-171); MB/CK RELATIVE INDEX 1.38 (< OR =4)
[2023-05-25 18:59] VITALS: BP 185/95; TEMP 97.5; O2SAT 98
== END 2023-05-25 19:08 | disposition home or self-care (01) ==
LOC: M ED 13:51
DX: F43.0 Acute stress reaction (principal); I50.9 Heart failure, unspecified; I25.2 Old myocardial infarction; E11.9 Type 2 diabetes mellitus without complications; J44.9 Chronic obstructive pulmonary disease, unspecified; N18.9 Chronic kidney disease, unspecified; Z86.711 Personal history of pulmonary embolism; F17.200 Nicotine dependence, unspecified, uncomplicated; Z88.8 Allergy status to other drugs, medicaments and biological substances; Z11.52 Encounter for screening for COVID-19; Z79.899 Other long term (current) drug therapy

== ENCOUNTER 2023-11-11 12:25 | Observation (INO) | payer OTHER ==
[~2023-11-11] VITALS: Ht 182.9 cm; Wt 121.2 kg
[~2023-11-11 12:25] MED LIST changes: +HYDR-161 PO; -HYDR-3910 PO; -HYDR-3911 PO; -HYDR10TAB PO; -HYDR25TA PO; +HYDR25TA87 PO; +HYDR25TA88 PO; +HYDR50TA46 PO; +ONDA-282 PO; -ONDA4TAB6 PO
[2023-11-11 12:44] LABS: BASO % 0.6 % (0.0-1.0); EOS # 0.1 10^3/uL (0.0-0.5); EOS % 2.1 % (0.0-3.0); HEMATOCRIT 40.2 % (42.0-52.0); HEMOGLOBIN 14.2 g/dl (13.5-17.5); LYMPH # 2.2 10^3/uL (1.5-5.0); LYMPH % 35.1 % (24.0-44.0); MEAN CORPUSCULAR HEMOGLOBIN 30.1 pg (27.0-33.0); MEAN CORPUSCULAR HGB CONC 35.3 g/dl (32.0-36.5); MEAN CORPUSCULAR VOLUME 85.2 fl (80.0-96.0); MONO # 0.5 10^3/uL (0.0-0.8); MONO % 7.3 % (2.0-8.0); NEUTROPHILS # 3.3 10^3/uL (1.5-8.5); NEUTROPHILS % 54.3 % (36.0-66.0); PLATELET COUNT, AUTOMATED 163 10^3/uL (150-450); RED BLOOD COUNT 4.72 10^6/uL (4.30-6.10); WHITE BLOOD COUNT 6.2 10^3/uL (4.0-10.0)
[2023-11-11] MEDS: NITROGLYCERIN 0.4MG SUBL TABLET SL PRN (13:04)
[2023-11-11 13:14] LABS: LIPASE 24 U/L (12-53)
[2023-11-11 13:15] LABS: CK-MB VALUE MASS 1.7 NG/ML (<3.6); CPK CREATINE PHOSPHOKINASE 107 U/L (46-171); MB/CK RELATIVE INDEX 1.58 (< OR =4)
[2023-11-11 13:16] LABS: ALBUMIN 3.8 G/DL (3.2-5.2); ALKALINE PHOSPHATASE 113 U/L (46-116); ALT/SGPT 49 U/L (7.0-40); AST/SGOT 22 U/L (<34); BILIRUBIN,DIRECT 0.4 MG/DL (<0.4); BLOOD UREA NITROGEN 18 MG/DL (9-23); CALCIUM LEVEL 9.1 MG/DL (8.3-10.6); CARBON DIOXIDE LEVEL 28 MMOL/L (20-31); CHLORIDE LEVEL 108 MMOL/L (98-107); CREATININE FOR GFR 0.95 MG/DL (0.70-1.30); GLOMERULAR FILTRATION RATE > 60.0 (>49); GLUCOSE, FASTING 159 MG/DL (74-106); POTASSIUM SERUM 4.2 MMOL/L (3.5-5.1); SODIUM LEVEL 141 MMOL/L (136-145); TOTAL PROTEIN 6.7 G/DL (5.7-8.2)
[2023-11-11 13:20] LABS: THYROID STIMULATING HORMONE 1.909 uIU/ML (0.55-4.78)
[2023-11-11 13:21] LABS: FREE T4 0.82 NG/DL (0.89-1.76)
[2023-11-11] MEDS: MORPHINE 4 MG/ML 1ML VIAL IV ONE (13:50)
[2023-11-11 14:18] LABS: CK-MB VALUE MASS 1.3 NG/ML (<3.6)
[2023-11-11 14:19] LABS: MB/CK RELATIVE INDEX 1.25 (< OR =4)
[2023-11-11] MEDS: NS 1,000 ML IV ONE (17:33)
[2023-11-11] MEDS ORDERED: ACET-683 PO (17:59)
[2023-11-11] MEDS ORDERED: GABA600T4 PO (17:59)
[2023-11-11] MEDS ORDERED: AMBI10TA PO (17:59)
[2023-11-11] MEDS ORDERED: INSULADS INJ (17:59)
[2023-11-11] MEDS ORDERED: VITA200016 PO (18:00)
[2023-11-11] MEDS ORDERED: HOME MED LIST COMPLETE! XX SCH (18:10)
[2023-11-11 22:17] VITALS: BP 175/95; TEMP 97.9; O2SAT 100
[2023-11-12 04:02] VITALS: BP 179/95; TEMP 97.7; O2SAT 99
[2023-11-12] MEDS ORDERED: MAALOX 30 ML SUSP *UDC PO PRN (04:25)
[2023-11-12] MEDS: METOPROLOL SUCC *XL* 25MG TAB (TopROL *XL*) PO SCH (04:35)
[2023-11-12] MEDS: ONDANSETRON 4MG ORAL DISINTEGRATING TAB PO PRN (04:36)
[2023-11-12] MEDS: ACETAMINOPHEN TAB 650MG DOSE (2X325MG) PO PRN (04:36)
[2023-11-12 06:33] LABS: BASO % 0.6 % (0.0-1.0); EOS # 0.1 10^3/uL (0.0-0.5); HEMATOCRIT 41.3 % (42.0-52.0); HEMOGLOBIN 14.3 g/dl (13.5-17.5); LYMPH # 1.7 10^3/uL (1.5-5.0); LYMPH % 24.5 % (24.0-44.0); MEAN CORPUSCULAR HEMOGLOBIN 29.5 pg (27.0-33.0); MEAN CORPUSCULAR HGB CONC 34.6 g/dl (32.0-36.5); MEAN CORPUSCULAR VOLUME 85.2 fl (80.0-96.0); MONO # 0.4 10^3/uL (0.0-0.8); MONO % 6.3 % (2.0-8.0); NEUTROPHILS # 4.7 10^3/uL (1.5-8.5); PLATELET COUNT, AUTOMATED 155 10^3/uL (150-450); RED BLOOD COUNT 4.85 10^6/uL (4.30-6.10)
[2023-11-12 06:49] VITALS: BP 179/98; O2SAT 99
[2023-11-12 06:49] LABS: BLOOD UREA NITROGEN 20 MG/DL (9-23); CALCIUM LEVEL 9.3 MG/DL (8.3-10.6); CARBON DIOXIDE LEVEL 26 MMOL/L (20-31); CHLORIDE LEVEL 107 MMOL/L (98-107); CREATININE FOR GFR 0.88 MG/DL (0.70-1.30); GLOMERULAR FILTRATION RATE > 60.0 (>49); GLUCOSE, FASTING 150 MG/DL (74-106); POTASSIUM SERUM 3.9 MMOL/L (3.5-5.1); SODIUM LEVEL 140 MMOL/L (136-145)
[2023-11-12] MEDS: INSULIN LISPRO (NovoLOG) PER UNIT SC SCH (07:30)
[2023-11-12] MEDS ORDERED: GLUCAGON INJ 1MG VIAL SC PRN (07:35)
[2023-11-12] MEDS ORDERED: GLUCOSE 4 GM CHEW PO PRN (07:35)
[2023-11-12] MEDS ORDERED: DEXTROSE 50% 50ML SYRINGE IV PRN (07:35)
[2023-11-12] MEDS ORDERED: traMADol 50 MG TAB PO PRN (07:40)
[2023-11-12] MEDS: FAMOTIDINE 20 MG TAB PO SCH (08:22)
[2023-11-12] MEDS: ATORVASTATIN 20 MG TAB PO SCH (08:22)
[2023-11-12] MEDS: GABAPENTIN 400MG CAP PO SCH (08:22)
[2023-11-12] MEDS: ASPIRIN 81MG CHEW TABLET PO SCH (08:22)
[2023-11-12] MEDS: APIXABAN 5 MG TAB (ELIQUIS) PO SCH (08:22)
[2023-11-12 08:23] VITALS: BP 153/84
[2023-11-12] MEDS: LEVEMIR (INSULIN DETEMIR) 1 UNITS/0.01ML SC SCH (09:00)
[2023-11-12] MEDS: PANTOPRAZOLE 40MG VIAL IV ONE (10:42)
[2023-11-12 12:00] VITALS: BP 155/85; TEMP 97.7; O2SAT 100
[2023-11-12] MEDS ORDERED: MECL-86 PO (13:04)
[2023-11-12] MEDS: GABAPENTIN 300 MG CAP PO SCH (13:28)
[2023-11-12] MEDS: MECLIZINE 25 MG TABLET PO ONE (13:29)
[2023-11-12] MEDS ORDERED: INSULIN LISPRO (NovoLOG) PER UNIT SC SCH (21:00)
== END 2023-11-12 15:00 | disposition home or self-care (01) ==
LOC: M ED 12:25 → EDBD 12:25 → M ED INP 16:22 → M MSPAV 21:47
PROVIDERS: ADMIT Internal Medicine Nephrology; ATTEND Internal Medicine Nephrology
DX: R55 Syncope and collapse (principal); R42 Dizziness and giddiness; R07.9 Chest pain, unspecified; R53.83 Other fatigue; R26.81 Unsteadiness on feet; I25.10 Atherosclerotic heart disease of native coronary artery without angina pectoris; I25.2 Old myocardial infarction; Z95.5 Presence of coronary angioplasty implant and graft; Z86.73 Personal history of transient ischemic attack (TIA), and cerebral infarction without residual deficits; H49.9 Unspecified paralytic strabismus; G31.84 Mild cognitive impairment of uncertain or unknown etiology; R41.0 Disorientation, unspecified; G93.41 Metabolic encephalopathy; I48.0 Paroxysmal atrial fibrillation; I50.32 Chronic diastolic (congestive) heart failure; I34.0 Nonrheumatic mitral (valve) insufficiency; E11.9 Type 2 diabetes mellitus without complications; I11.0 Hypertensive heart disease with heart failure; E78.5 Hyperlipidemia, unspecified; E03.9 Hypothyroidism, unspecified; F43.10 Post-traumatic stress disorder, unspecified; F32.A Depression, unspecified; F41.9 Anxiety disorder, unspecified; G43.909 Migraine, unspecified, not intractable, without status migrainosus; K21.9 Gastro-esophageal reflux disease without esophagitis; M54.9 Dorsalgia, unspecified; G89.29 Other chronic pain; N40.0 Benign prostatic hyperplasia without lower urinary tract symptoms; Z86.16 Personal history of COVID-19; T43.225A Adverse effect of selective serotonin reuptake inhibitors, initial encounter; F10.10 Alcohol abuse, uncomplicated; F17.200 Nicotine dependence, unspecified, uncomplicated; Z87.828 Personal history of other (healed) physical injury and trauma; Z98.1 Arthrodesis status; M50.322 Other cervical disc degeneration at C5-C6 level; M50.323 Other cervical disc degeneration at C6-C7 level; M48.02 Spinal stenosis, cervical region; Z86.718 Personal history of other venous thrombosis and embolism; Z80.1 Family history of malignant neoplasm of trachea, bronchus and lung; Z80.3 Family history of malignant neoplasm of breast; Z88.8 Allergy status to other drugs, medicaments and biological substances; Z79.899 Other long term (current) drug therapy; Z79.01 Long term (current) use of anticoagulants; Z79.82 Long term (current) use of aspirin; Z79.4 Long term (current) use of insulin
CPT/HCPCS: 36415; 70450; 71045; 72125; 80048; 80076; 82550; 82553; 83690; 83880; 84439; 84443; 84484; 85025; 93005; 93041; 94760; 96361; 96374; 96375; 97161; 97530; 99285; C9113; G0378; J1815